=== PATIENT | male | born 1940 | race Caucasian/White ===

== ENCOUNTER → 2017-09-12 07:47 | Outpatient (CLI) | payer OTHER, SELFPAY ==
[2017-09-12 10:21] LABS: Blood Gas Specimen Type VEN; VBG BASE EXCESS 0 mmol/L (-1.0-3.5); VBG Bicarbonate 25 mmol/L (22-26); VBG Oxygen Content 27 mmol/L (23-33); VBG PO2 34 mmHg (25-40); VBG SO2 65 % (50-70); VBG pCO2 41.4 mmHg (41-51)
[2017-09-12 10:21] LABS: Blood Gas Specimen Type VEN; VBG BASE EXCESS 2 mmol/L (-1.0-3.5); VBG Bicarbonate 27 mmol/L (22-26); VBG Oxygen Content 28 mmol/L (23-33); VBG PO2 36 mmHg (25-40); VBG SO2 68 % (50-70); VBG pCO2 44.5 mmHg (41-51); VBG pH 7.39 (7.32-7.42)
[2017-09-12 10:21] LABS: Base Excess 0 mmol/L (-2 to +2); Bicarbonate 24.7 mmol/L (22-26); Blood Gas Specimen Type ART; PO2 72 mmHG (75-100); SO2 95 % (95-99); Total Carbon Dioxide 26 mmol/L; pCO2 38.5 mmHg (35-45); pH 7.42 (7.35-7.45)
[2017-09-12 10:21] LABS: Blood Gas Specimen Type VEN; VBG BASE EXCESS 1 mmol/L (-1.0-3.5); VBG Bicarbonate 26 mmol/L (22-26); VBG Oxygen Content 28 mmol/L (23-33); VBG PO2 35 mmHg (25-40); VBG SO2 67 % (50-70); VBG pCO2 42.7 mmHg (41-51)
[2017-09-12 10:21] LABS: Blood Gas Specimen Type VEN; VBG BASE EXCESS 1 mmol/L (-1.0-3.5); VBG Bicarbonate 25 mmol/L (22-26); VBG Oxygen Content 26 mmol/L (23-33); VBG PO2 37 mmHg (25-40); VBG SO2 71 % (50-70); VBG pCO2 39.5 mmHg (41-51); VBG pH 7.41 (7.32-7.42)
[2017-09-12 10:21] LABS: Blood Gas Specimen Type VEN; VBG BASE EXCESS 0 mmol/L (-1.0-3.5); VBG Bicarbonate 25 mmol/L (22-26); VBG Oxygen Content 26 mmol/L (23-33); VBG PO2 37 mmHg (25-40); VBG SO2 70 % (50-70); VBG pCO2 40.1 mmHg (41-51); VBG pH 7.39 (7.32-7.42)
--- NOTE | 2017-09-12 11:20 | CL.D_ITS ---
Patient Name: JOSELUIS VARGAS Study Date: 09/12/2017 Performing: Brady Escalera MD Ht: 66 inches 167.64 cm : 1940 Wt: 192 lbs 87.09 kg Age: 77 Gender: male BSA: 1.97 PROCEDURE(S) PERFORMED CM70-CRO/LHC/COR/LV/CABG CLINICAL PROFILE AND INDICATIONS INDICATIONS: Stable Angina CCS Class III Stress/Imaging Stress Test w/SPECT MPI: Yes Result: PositiveStress Test with SPECT MPI: Positive Angina Classification Anginal Classification w/in 2 Weeks: CCS III CAD Presentations: Stable angina. CONCLUSIONS Elevated Left Ventricular End Diastolic Pressure Right heart pressures - moderately elevated The patient has pulmonary hypertension which is moderate. Intracardiac shunting: None Segmented LV systolic dysfunction- Moderate LVEF: by LV gram 35 % [place] Multivessel CAD [place]ON to the LAD: patent SVG to OM1: patent SVG to RPDA: occluded Aortic Valve Stenosis- Severe Mitral Valve Insufficiency Moderate RECOMMENDATIONS Risk factor modification Medical therapy Surgery consult for coronary revascularization Surgery consult for valvular disease DESCRIPTION OF PROCEDURE The patient arrived to the procedure lab. The risks and benefits of the procedure as well as a full d escription of our services here and current unavailability of surgical backup were fully explained to the patient and/or their significant other prior to the catheterization. The Timeout was completed, verifying the correct patient and procedure. The patient's procedural site was prepped and draped in the usual fashion. Local anesthetic was given subcutaneously to right groin region with Lidocaine 2%. Using a modified Seldinger technique, arterial access was obtained via the right femoral artery, a 4 Fr sheath was inserted Venous access was obtained via the right femoral vein, a 7Fr sheath was insert ed. A 7Fr thermal dilution catheter was inserted and right heart pressures were recorded, it was then advanced to PA position for cardiac outputs. Thermal dilution cardiac outputs were then recorded. O2 saturations were then obtained. Left Ventriculography was performed in BREEN projection using a 4 Fr. Pigtail catheter. LV to AO pullback pressures were then recorded. Simultaneous pressures were then re corded. The Thermal dilution catheter was then removed. Left Coronary Artery selective angiography wa s performed in multiple views using a 4 Fr. JL5 catheter. Right Coronary Artery selective angiography was then performed in multiple views using a 4 Fr. 3DRC catheter. Saphenous Vein graft to the RPDA s elective angiography was performed in multiple views using a 4 Fr. 3DRC catheter. Saphenous Vein gilson t to the Circumflex selective angiography was performed in multiple views using a 4 Fr. 3DRC catheter . Left internal mammary artery graft to the LAD selective angiography was performed in multiple views using a 4 Fr. JR4 catheter. Left internal mammary artery graft to the LAD selective angiography was performed in multiple views using a 4 Fr. IM catheter using a J exchange wire. Saphenous Vein graft t o the Circumflex selective angiography was performed in multiple views using a 4 Fr. LCB catheter.The arterial sheath was pulled and manual compression applied until hemostasis is achieved.. The venous sheath was then pulled and manual compression applied until hemostasis achieved CORONARY ANGIOGRAPHY DOMINANCE: Right Dominant LEFT HEART ASSESSMENT Left Ventricular Ejection Fraction: by LV Gram 35 % Anterior Hypokinesis. Inferior Basal Akinesis. Inferior Mid Hypokinesis - Severe. Apical Hypokinesis - Severe Elevated Left Ventricular End Diastolic Pressure LVEDP: 26 mmHg RIGHT HEART ASSESSMENT Thermal CO: 2.71 Thermal CI: 1.38 PW: 17/ 17 PA: 44/14 25 RV: 44/-2 7 RA: 01/16 4 PVR: 236 SVR: 2686 Aortic Valve Area: 0.67 Aortic Valve Index: 0.34 Aortic Valve Mean Gradient: 22.5 Right Heart pressures - elevated Pulmonary Hypertension Intracardiac shunting: None LEFT MAIN: Distal: 95 % Stenosis LEFT ANTERIOR DECENDING ARTERY: MID LAD: Moderate calcification, S/P Septal [employer] L[employer]: 100 % Stenosis CIRCUMFLEX ARTERY: PROX CIRC: 99 % Stenosis RIGHT CORONARY ARTERY: PROX RCA: Mild luminal irregularities, Previously placed stent has an instent distal: 75 % restenosis MID RCA: Eccentric: 85 % Stenosis DISTAL RCA: Eccentric: 85 % Stenosis GRAFTS: [place] graft to the Mid LAD is patent with no angiographically significant disease distal to the graft attachment Saphenous Vein graft to the 1st OM is patent with no angiographically significant disease distal to t he graft attachment Saphenous Vein graft to the RPDA is totally occluded VALVE FINDINGS: Aortic Valve Stenosis - severe Mitral Valve Insufficiency - Grade 2 AORTIC ROOT: Angiographically normal COMPLICATIONS No Complications PROCEDURE MEDICATIONS Versed 1 mg IV SUMMARY OF HEMODYNAMIC DATA Time AIR REST ECG 08:05:40 RA 6/5 (4) SV 09:14:12 RV 44/-2, 7 09:14:30 PW (17) PV 09:15:20 PA 44/14 (25) PA 09:15:37 LV 173/14, 26 09:23:18 PW (16) 09:23:18 LV 174/14, 28 09:23:24 PW (17) 09:23:24 LV 167/5, 19 09:23:56 PW (21) 09:23:56 LV 162/4, 15 09:26:08 PW (14) 09:26:08 LVp 165/10, 26 09:26:29 AOp 149/70 (100) 09:26:34 PA 47/15 (29) 09:27:00 RV 49/0, 6 09:28:28 RA 10/ (4) 09:28:41 AO 126/70 (95) SA 09:31:06 ECG 10:17:51 Valve Area (c P-P/ms Time AIR REST Aortic 0.67 22.5 mn/326 ms 16.0 pk/326 ms 09:26:29 Type SV CO (l/m) CI (l/m/ HR Time AIR REST Thermal 58.90 2.71 1.38 46 08:05:40 Label % O2 Pres/Loc Time AIR REST IVC 71 SV 09:41:22 AO 95 PV 09:42:34 PA 67 PA 09:42:40 SVC 68 09:47:20 Signed By Brady Escalera MD On 09/12/2017 11:19:19 Brady Escalera MD
== END ==
LOC: CVS 15:29 → CLSP 15:30
PROVIDERS: Family Provider Family Medicine; PCP Family Medicine; Visit Provider Internal Medicine Cardiovascular Disease
DX: I25.118 Atherosclerotic heart disease of native coronary artery with other forms of angina pectoris (principal); I25.708 Atherosclerosis of coronary artery bypass graft(s), unspecified, with other forms of angina pectoris; R06.09 Other forms of dyspnea; I38 Endocarditis, valve unspecified; E78.2 Mixed hyperlipidemia; Z95.1 Presence of aortocoronary bypass graft; I34.0 Nonrheumatic mitral (valve) insufficiency; R94.39 Abnormal result of other cardiovascular function study; Z79.82 Long term (current) use of aspirin; Z79.899 Other long term (current) drug therapy
CPT/HCPCS: 82803; 93461; 99152; 99153; J7040; C1751; C1769; C1894; Q9967

== ENCOUNTER → 2018-02-02 08:12 | Outpatient (CLI) | payer SELFPAY ==
--- NOTE | 2018-02-02 08:16 | ECHOD_ITS ---
Reason For Study: AVR eval Procedure This was a 2D Doppler, Color Flow transthoracic echocardiogram. The exam was of fair technical quality due to body habitus. The study was technically difficult. Exam performed in department. Left Ventricle Normal LV size. Mild segmental systolic dysfunction (see wall motion). The estimated ejection fraction is 50 %. Posterior-Basal: Hypokinetic. Infero-Basal: Hypokinetic. Mid-Inferior: Hypokinetic. Mid-inferoseptal : Hypokinetic. Inferior [place] : Hypokinetic. Lateral [place] : Not visualized. Right Ventricle Normal RV size. Normal systolic function. Atria The left atrium is mildly enlarged. Normal right atrium. No doppler evidence for ASD. Mitral Valve There is no mitral annular calcification. Mild diffuse mitral valve thickening. Moderate (2+) mitral valve insufficiency. Tricuspid Valve Normal tricuspid valve. Mild tricuspid valve insufficiency. Right ventricular systolic pressure estimated to be 37 mmHg. Aortic Valve Stable appearing bioprosthetic aortic valve apparatus. Pulmonic Valve The pulmonic valve is not well visualized. Trivial pulmonic valve insufficiency. Great Vessels Normal sized aortic root. Pericardium/Pleural No pericardial effusion. MMode/2D Measurements & Calculations LVIDd: 5.9 cm IVSd: 1.1 cm Ao root diam: 3.2 cm LVIDs: 4.7 cm LVPWd: 0.88 cm LA dimension: 4.2 cm RVDd: 3.7 cm FS: 19.3 % LAV(MOD-bp): 81.2 ml LA A4 area: 22.5 cm2 RA A4 area: 17.6 cm2 LAV(MOD-bp) Indexed: 42.4 ml/m2 LAV(MOD-sp2): 81.3 ml LAV(MOD-sp4): 78.0 ml Doppler Measurements & Calculations MV E max jamie: 107.8 cm/sec Lat Peak E' Jamie: 3.9 cm/sec Med Peak E' Jamie: 3.4 cm/sec MV A max jamie: 74.9 cm/sec E/E' lat: 27.5 E/E' med: 32.1 MV E/A: 1.4 Ao V2 max: 213.5 cm/sec LV V1 max: 75.8 cm/sec PA V2 max: 113.5 cm/sec Ao max P.2 mmHg LV V1 max P.3 mmHg Ao V2 mean: 157.9 cm/sec LV V1 mean P.4 mmHg Ao mean P.8 mmHg LV V1 mean: 57.2 cm/sec Ao V2 VTI: 50.6 cm LV V1 VTI: 19.3 cm TR max jamie: 292.2 cm/sec TR max P.2 mmHg Interpretation Summary The study was technically difficult. Mild segmental systolic dysfunction (see wall motion). The estimated ejection fraction is 50 %. The left atrium is mildly enlarged. Mild diffuse mitral valve thickening. Moderate (2+) mitral valve insufficiency. Mild tricuspid valve insufficiency. Stable appearing bioprosthetic aortic valve apparatus. Trivial pulmonic valve insufficiency. Right ventricular systolic pressure estimated to be 37 mmHg. Transmitral diastolic flow velocities suggest diastolic dysfunction (pseudonormal pattern). Ordering Physician: Brady Escalera Referring Physician: Pedro Gonzalez Performed By: Jenny Zhong, IGNACIO, RVT
== END ==
PROVIDERS: Family Provider Family Medicine; PCP Family Medicine; Visit Provider Internal Medicine Cardiovascular Disease
DX: I35.0 Nonrheumatic aortic (valve) stenosis (principal)
CPT/HCPCS: 93306

== ENCOUNTER → 2018-03-09 09:43 | Outpatient (CLI) | payer OTHER, SELFPAY ==
[2018-03-09 11:34] LABS: PSA,Total - Annual Screen 1.82 ng/mL (0.00-4.00)
== END ==
PROVIDERS: Family Provider Family Medicine; PCP Family Medicine; Visit Provider Family Medicine
DX: Z12.5 Encounter for screening for malignant neoplasm of prostate (principal)
CPT/HCPCS: 36415; 84153; G0103

== ENCOUNTER → 2018-03-29 14:11 | Outpatient (CLI) | payer OTHER, SELFPAY ==
[2018-03-29 14:52] LABS: Absolute Lymphocyte Count 2.66 X10^3/ul (0.83-4.51); Basophil# 0.02 X10^3/uL; Basophil% 0.3 % (0-1); Eosinophil# 0.12 X10^3/uL; Eosinophils% 1.9 % (0-5); Hematocrit 41.4 % (40-54); Hemoglobin 13.7 g/dl (13.0-16.5); Lymphocyte # 2.66 X10^3/ul (4.0); Lymphocyte % 41.6 % (19-41); Mean Corp Hgb Conc 33.1 g/gl (32-36); Mean Corpuscular Hgb 29.5 pg (27.0-32.0); Mean Platelet Vol. 10.2 fl (6.2-12.0); Monocyte# 0.56 X10^3/uL; Monocyte% 8.8 % (0-10); Neutrophil # 3.03 X10^3/uL (2.7-7.7); Neutrophil % 47.2 % (47-70); Platelet Count 143 K/mm3 (150-450); RBC Distribution Width CV 13.7 % (11.6-14.6); RBC Distribution Width SD 44.3 fl (35.1-43.9); Red Blood Count 4.65 M/mm3 (4.6-6.2); White Blood Count 6.4 K/mm3 (4.4-11.0)
[2018-03-29 14:53] LABS: POSITIVE COUNT NO; POSITIVE DIFFERENTIAL NO; POSITIVE MORPHOLOGY NO
[2018-03-29 15:28] LABS: Anion Gap 10 (5-15); BUN 30 mg/dL (7-18); BUN/Creat Ratio 22.4 RATIO (10-20); Calcium,Total 8.9 mg/dL (8.5-10.1); Chloride 103 mmol/L (98-107); Creatinine, Serum 1.34 mg/dL (0.70-1.30); EST Glomerular Filtration Rate 55 mL/min (>60); Est Glom Filt Rate - Afr Amer 66 mL/min (>60); Glucose 86 mg/dL (74-106); Sodium Level 141 mmol/L (136-145)
[2018-03-29 15:38] LABS: BNP,B-Type NATRIURETIC PEPTIDE 738.7 pg/mL (0-100)
== END ==
PROVIDERS: Family Provider Family Medicine; PCP Family Medicine; Visit Provider Nurse Practitioner Family
DX: I25.10 Atherosclerotic heart disease of native coronary artery without angina pectoris (principal); I38 Endocarditis, valve unspecified; R06.09 Other forms of dyspnea; Z95.5 Presence of coronary angioplasty implant and graft
CPT/HCPCS: 36415; 80048; 83880; 85025

== ENCOUNTER → 2018-04-18 10:00 | Outpatient (CLI) | payer OTHER, SELFPAY ==
[2018-04-18 10:58] LABS: AST(SGOT) 20 U/L (15-37); Alanine Aminotransfer ALT/SGPT 23 U/L (16-61); Albumin, Serum 3.6 g/dL (3.2-5.0); Alkaline Phosphatase 74 U/L (45-117); Bilirubin, Direct 0.15 mg/dL (0.00-0.30); Cholesterol 234 mg/dL (200); Globulin 3.9 g/dL (2.2-4.2); High Density Lipoprotein 54 mg/dL; Protein, Total 7.5 g/dL (6.4-8.2); Triglycerides 95 mg/dL; Very Low Density Lipoprotein 19 mg/dL (5-40)
== END ==
PROVIDERS: Family Provider Family Medicine; PCP Family Medicine; Visit Provider Nurse Practitioner Family
DX: E78.5 Hyperlipidemia, unspecified (principal)
CPT/HCPCS: 36415; 80061; 80076

== ENCOUNTER → 2018-12-24 08:32 | Outpatient (CLI) | payer OTHER, SELFPAY ==
--- NOTE | 2018-12-24 08:37 | ECHOD_ITS ---
Reason For Study: AVR-TAVR Procedure This was a 2D Doppler, Color Flow transthoracic echocardiogram. The exam was of adequate technical quality. Exam performed in department. Left Ventricle Normal LV size. Mild segmental systolic dysfunction (see wall motion). The estimated ejection fraction is 45 %. Post operative septal motion. Anterio-Basal: Hypokinetic. Posterior-Basal: Hypokinetic. Infero-Basal: Hypokinetic. Basal inferoseptal: Hypokinetic. Mid-Anterior : Hypokinetic. Mid-Lateral : Hypokinetic. Mid-Posterior: Hypokinetic. Mid-Inferior: Hypokinetic. Mid-inferoseptal : Hypokinetic. Anterior [place] : Hypokinetic. Septal [place] : Hypokinetic. Right Ventricle Normal RV size. Normal systolic function. Atria The left atrium is mildly enlarged. Normal right atrium. No doppler evidence for ASD. Mitral Valve There is no mitral annular calcification. Mild diffuse mitral valve thickening. Mild-Moderate (1-2+) mitral valve insufficiency. Tricuspid Valve Normal tricuspid valve. Mild tricuspid valve insufficiency. Right ventricular systolic pressure estimated to be 37 mmHg. Aortic Valve Stable appearing bioprosthetic aortic valve apparatus. Mild transvalvular insufficiency of the aortic valve. Pulmonic Valve The pulmonic valve is not well visualized. Trivial pulmonic valve insufficiency. Great Vessels Normal sized aortic root. Pericardium/Pleural No pericardial effusion. MMode/2D Measurements & Calculations LVIDd: 5.2 cm IVSd: 1.2 cm LVOT diam: 2.0 cm LVIDs: 4.3 cm LVPWd: 1.2 cm LVOT area: 3.2 cm2 RVDd: 3.7 cm FS: 16.6 % Ao root diam: 3.8 cm LAV(MOD-bp): 64.5 ml LVAd ap4: 38.0 cm2 LAV(MOD-bp) Indexed: 33.7 ml/m2 EDV(MOD-sp4): 145.7 ml LAV(MOD-sp2): 58.9 ml EDV(sp4-el): 148.3 ml LAV(MOD-sp4): 68.2 ml LVAs ap4: 29.1 cm2 ESV(MOD-sp4): 88.9 ml ESV(sp4-el): 91.2 ml EF(MOD-sp4): 39.0 % EF(sp4-el): 38.5 % SV(MOD-sp4): 56.8 ml SV(sp4-el): 57.1 ml LA A4 area: 20.9 cm2 LA dimension(2D): 3.7 cm RA A4 area: 13.9 cm2 Doppler Measurements & Calculations MV E max jamie: 79.8 cm/sec Lat Peak E' Jamie: 4.5 cm/sec Med Peak E' Jamie: 3.1 cm/sec MV A max jamie: 61.4 cm/sec E/E' lat: 17.6 E/E' med: 25.7 MV E/A: 1.3 Ao V2 max: 197.8 cm/sec LV V1 max: 107.1 cm/sec SV(LVOT): 87.5 ml Ao max P.7 mmHg LV V1 max P.6 mmHg Ao V2 mean: 136.3 cm/sec LV V1 mean P.5 mmHg Ao mean P.2 mmHg LV V1 mean: 74.8 cm/sec Ao V2 VTI: 48.2 cm LV V1 VTI: 27.0 cm [place](I,D): 1.8 cm2 [place](V,D): 1.8 cm2 PA V2 max: 115.4 cm/sec TR max jamie: 289.8 cm/sec TR max P.9 mmHg Interpretation Summary Mild segmental systolic dysfunction (see wall motion). The estimated ejection fraction is 45 %. Post operative septal motion. The left atrium is mildly enlarged. Mild diffuse mitral valve thickening. Mild-Moderate (1-2+) mitral valve insufficiency. Mild tricuspid valve insufficiency. Stable appearing bioprosthetic aortic valve apparatus. Mild transvalvular insufficiency of the aortic valve. Trivial pulmonic valve insufficiency. Right ventricular systolic pressure estimated to be 37 mmHg. Transmitral diastolic flow velocities suggest diastolic dysfunction (pseudonormal pattern). Ordering Physician: Andrzej Marinelli/Brady Escalera Referring Physician: Pedro Gonzalez MD Performed By: Justine Pena RDCS
== END ==
PROVIDERS: Family Provider Family Medicine; PCP Family Medicine; Referring Provider Nurse Practitioner Family; Visit Provider Nurse Practitioner Family
DX: Z95.3 Presence of xenogenic heart valve (principal)
CPT/HCPCS: 93306

== ENCOUNTER 2019-06-19 08:24 | Emergency (ER) | payer OTHER, SELFPAY ==
[2018-12-31 09:38] VITALS: BMI 28.8
[2019-06-19 08:26] VITALS: BP 152/82; PULSE 63; RESP 14; TEMP 36.2; O2SAT 99; BMI 28.2
--- NOTE | 2019-06-19 08:41 | ED.DCSUM_ITS ---
- ER Visit Summary Date of Service: 06/19/19 Chief Complaint: Left sided nosebleed History of Present Illness: The patient is a 79 M history of CAD, CABG x2 different surgeries, aortic valve replaced on both Plavix and aspirin. Patient states about midnight this past evening he started having nosebleed on the left. Denies any trauma. Does not typically get nosebleeds very often. Denies any hematuria or melena. Physical Examination: Well appearing older Jung male. No acute distress. Has a tissue stuffed in the left side of his nose. Posterior pharynx unremarkable with no active bleeding or clots. No trouble breathing or swallowing. Right naris is clean without blood. Moist week's membranes. Lungs clear to auscultation bilaterally. Heart regular rhythm. Abdomen soft nontender. Patient is moving all 4 extremities. Calves are nontender. Neurologically he is awake and alert. Test Results: None Emergency Department Course and Treatment: Patient anticoagulated on both aspirin and Plavix. With a left-sided nosebleed. Cotton balls soaked with Afrin be placed in his nose. Treatment Plan: Bleeding stopped with Afrin soaked cotton balls. He had an obvious area of redness to the left nasal septum anteriorly. It did not be cauterized. I placed a Rhino Rocket coated with bacitracin antibiotic ointment. Patient tolerated the procedure well. Pack was secured. He was ambulated and did not bleed. Posterior pharynx and right naris no bleeding also. Packing will remain in for the next 3 days. Be pulled Monday morning. He will be placed on amoxicillin 250 3 times daily for 3 days. Disposition: Discharge Impression: Acute left sided nosebleed Anterior nasal pack placed by ER (nasal Rhino Rocket.) Anticoagulated on Plavix and aspirin This note was generated with [employer] dictation software. It may contain incorrect words, spelling, and punctuation that were not noted in review of the chart prior to signing ED Disposition - Plan for ED Patient: Referrals: Pedro Gonzalez MD [Primary Care Provider] -
--- NOTE | 2019-06-19 09:23 | ED.DEP ---
ED Disposition - Plan for ED Patient: Disposition: Home or Assisted Living Instructions: Nosebleed Prescriptions: Amoxicillin 250 mg PO Q8 #9 cap Prescription Printed Referrals: Pedro Gonzalez MD [Primary Care Provider] - As Needed Additional Instructions: If rebleeds hold direct pressure by pinching her nose for 20 to 30 minutes. If unable to stop bleeding return. Packing needs to be pulled out on Monday morning. He will be placed on antibiotics amoxicillin 1 pill 3 times a day for the next 3 days while the packing is in to prevent a sinus infection.
== END 2019-06-19 09:47 | disposition home or self-care (01) ==
PROVIDERS: Emergency Provider Emergency Medicine; Family Provider Family Medicine; PCP Family Medicine
DX: R04.0 Epistaxis (principal); I25.10 Atherosclerotic heart disease of native coronary artery without angina pectoris; I10 Essential (primary) hypertension; Z95.2 Presence of prosthetic heart valve; Z95.1 Presence of aortocoronary bypass graft; Z79.02 Long term (current) use of antithrombotics/antiplatelets; Z79.899 Other long term (current) drug therapy
CPT/HCPCS: 30903; 99282

== ENCOUNTER 2019-06-20 08:40 | Day surgery (SDC) | payer OTHER, SELFPAY ==
[2019-06-19 08:26] VITALS: BMI 28.2
[2019-06-20] VITALS (11 sets, daily range): BP systolic 86–143; BP diastolic 60–80; PULSE 69–76; RESP 16–18; TEMP 36.4–36.6; O2SAT 92–100; BMI 28.7
[2019-06-20] MEDS: Oxymetazoline 0.05% 1 SPRAY SPRAY.BTL 2 SPRAY NASAL (09:27)
[2019-06-20] MEDS: Tetracaine/Benzocaine/Butamben 1 APPLIC TOPICAL (09:27)
--- NOTE | 2019-06-20 10:35 | ED.VIS.GEN ---
History of Present Illness Chief Complaint: Nosebleed Detail of Chief Complaint: Bleeding left nare Informant: Patient, Family Onset: Yesterday Narrative: Patient was seen in the ED yesterday for left sided epistaxis. 5.5 cm rapid pack was placed. Patient states last evening and today has had bleeding down his throat and out the right nare. Past Medical History - Allergies and Home Meds Allergies/Adverse Reactions: Allergies No Known Allergies Allergy (Verified 06/20/19 08:44) Prior records reviewed: Yes Past Medical History: - - Reviewed Lives: With Family Smoking Status: Never smoker Review of Systems General: Denies: Chills, Fever Eyes: Denies: Visual changes - bilaterally ENT: Reports: - - Packing in place left nare. Dried blood noted right nare.. Denies: Bilateral ear pain Cardiovascular: Denies: Chest pain Respiratory: Denies: Dyspnea, Cough Gastrointestinal: Denies: Abdominal pain Genitourinary: Denies: Dysuria Skin: Denies: Rash Hematologic: Denies: Easy bruising Allergy: Denies: Uticaria Physical Exam Vital Signs/Narrative: Vital Signs Temp Pulse Resp BP Pulse Ox 06/20/19 08:41 97.6 F L 71 18 143/63 H 96 Inital Vital Signs reviewed: Yes General: Well nourished, Well developed Head: Normocephalic ENT: - - Packing in place left nare. Right nare reveals small amount of dried blood. This is cleansed and no further bleeding is noted on the right side. Neck: Supple Cardiovascular: Regular rate, Regular rhythm Respiratory: No distress, CTA bilaterally Abdomen: Soft, Nontender Skin: Normal color Neurological: Alert, Oriented x3 Psychological: Normal affect Diagnostic/Tx/Re-eval - Medical Decision Making Indicated Afrin were applied to the left nare after removal of packing. A 5.5 cm Rhino Rocket with balloon was placed. Patient has had no further bleeding at the right side of his nose or down the back of his throat, but does have some anterior bleeding. Balloon is changed out to a 7.5 cm to help cover both anterior and posterior surface. Patient was observed with longer balloon in place. He continues to have bloody oozing from the anterior surface. I spoke with Dr. Ferrer, on-call for ENT. He presented to the emergency room to evaluate the patient. He is planning to take the patient to the OR for better evaluation and treatment. ED Disposition - Plan for ED Patient: Disposition: Acute Care Hospital [facility] Diagnosis: Epistaxis
--- NOTE | 2019-06-20 13:15 | LES_PTH ---
PATIENT: JOSELUIS VARGAS LOC: [facility] [place][id number] AGE/SX: 79/M ROOM: RE06/20/[address]: Dr. Brian Ferrer MD : 1940 BED: DIS: 06/20/2019 SPEC #: [id number] RECD: 06/20/19 15:48 STATUS: LENCHO REShavonne #: [id number] LOC: 06/20/19 13:[address]: Brian Ferrer DEPT: SURGICAL PATHOLOGY RECD BY: Marquise Michael ENTERED: 06/21/19 09:05 SP TYPE: Lesion OTHR DR: Dr. Pedro Gonzalez MD Tissues: Skin of nose, NOS Procedures: Surgery Specimen Level IV HEADER OPERATION: Cautery nosebleed PRE-OP DIAGNOSIS: Left-sided epistaxis TISSUE SUBMITTED: Left middle turbinate lesion MICROSCOPIC DIAGNOSIS Left middle turbinate lesion, biopsy: Minute fragment of fibrous tissue with mild chronic inflammation. AM:baltazar 06/24/19 COMMENT Case has been reviewed in consultation with Dr. Renee who concurs with the above diagnosis. IDC:CHOLO MICROSCOPIC DESCRIPTION Slides are reviewed. GROSS DESCRIPTION Received in fixative is one container labeled with the patient's name and designated middle turbinate lesion. The specimen consists of two minute fragments of arellano soft tissue each measuring 0.1 cm in greatest dimension. The specimen is totally submitted in one cassette. / CHOLO:baltazar 06/21/19 TC:3 CPT: 75396
--- NOTE | 2019-06-20 13:36 | EKG12_ITS ---
Test Reason : PRE OP Blood Pressure : / mmHG Vent. Rate : 080 BPM Atrial Rate : 080 BPM P-R Int : 174 ms QRS Dur : 094 ms QT Int : 406 ms P-R-T Axes : -13 -13 043 degrees QTc Int : 468 ms Sinus rhythm with occasional Premature ventricular complexes Otherwise normal ECG When compared with ECG of 18-MAR-2014 08:21, Premature ventricular complexes are now Present Nonspecific T wave abnormality now evident in Lateral leads Confirmed by CARLA BROOKS, CARLOS ([id number]), development editor HEDY CHARLES ([id number]) on 06/25/2019 3:24:52 PM Referred By: GLENYS Confirmed By:CARLOS AGUIRRE MD
--- NOTE | 2019-06-20 13:50 | DCINST_ITS ---
- Discharge Diagnoses Current Active Problems: Current Active and Chronic Problems (Last Reviewed 06/25/18 @ 09:33 by Elaina Fontana) Epistaxis (Acute) You will use the following diet at home:: Regular Discharge Activity: - - no noseblowing. Allergies/Adverse Reactions: Allergies No Known Allergies Allergy (Verified 06/20/19 08:44) Medications to take at Discharge Aspirin [Aspirin, Baby] 81 mg PO DAILY 03/10/14 vitamin E 200 unit capsule 200 unit PO QDAY 02/09/18 metoprolol succinate ER 25 mg tablet,extended release 24 hr 25 mg PO QDAY 03/29/18 clopidogrel 75 mg tablet 75 mg PO QDAY #90 tab 06/25/18 furosemide 40 mg tablet 40 mg PO DAILY #90 tab 12/31/18 Amoxicillin 250 mg PO Q8 #9 cap 06/19/19 Primary Care Physician: Pedro Gonzalez MD [Primary Care Provider] - Test Results: Test results from this visit will be discussed in further detail at your follow- up appointment, if applicable.
[2019-06-20] MEDS: Oxymetazoline 0.05% 1 SPRAY SPRAY.BTL 15 SPRAY (14:06)
--- NOTE | 2019-06-20 14:20 | PCM.OPRPT ---
Report of Operation Date of Procedure: 06/20/19 Pre-Operative Diagnosis: epistaxis left Post-Operative Diagnosis: same Surgery/Procedure Performed:: endoscopic cautery and packing epistaxis. biopsy middle turbinate Type of Anesthesia:: General Anesthesiologist: Thien Anthony Drains: none Estimated Blood Loss (mL): minimal Description of Procedure: The patient was taken to the OR on 06/20/19. He was placed in the semi-recumbent position on the OR table. He was given local mac anesthesia. A zero degree endoscope was used throughout the entire case. Clots were suctioned from the left nasal cavity. Bleeding was localized to the medial/anterior aspect of the middle turbinate. In this area was a mucosal abnormality. It appeared to be a small papilloma. I applied topical 4% lidocaine on a Codman. This was then removed. The abnormality was biopsied with a bernardo cut forcep. I then cauterized the area with suction cautery which immediately provided hemostasis. The rest of the nasal cavity was inspected. There was no further bleeding. The sphenopalatine area was inspected and the suction was run over the area and no bleeding occurred. I then placed an afrin codman. After a minute, this was removed. Soraida powder was placed on the middle turbinate. I then placed surgicel fibrillar on the cauterized area. Next, I placed a Mynor sinus pack on the fibrillar and inflated this with afrin. The procedure was terminated. He was brought to the recovery room in stable condition. Blood loss minimal, replacement none. Sponge, needle and instrument count were correct at the end of the procedure.
== END 2019-06-20 17:10 | disposition home or self-care (01) ==
LOC: ED 12:43 → SDC 12:47 → AC 12:47
PROVIDERS: Emergency Provider Emergency Medicine; Family Provider Family Medicine; PCP Family Medicine; Visit Provider Otolaryngology
PROC: (CPT 31237; principal; 2019-06-20 13:10)
DX: R04.0 Epistaxis (principal); J31.0 Chronic rhinitis; I25.10 Atherosclerotic heart disease of native coronary artery without angina pectoris; I10 Essential (primary) hypertension; Z95.1 Presence of aortocoronary bypass graft; Z79.02 Long term (current) use of antithrombotics/antiplatelets; Z79.82 Long term (current) use of aspirin
CPT/HCPCS: 30903; 31237; 31238; 88305; 93005; 99284; J7120; A4216; J2405

== ENCOUNTER → 2019-06-26 | Outpatient (CLI) | payer OTHER, SELFPAY ==
[2019-06-26 10:18] VITALS: BMI 28.4
[2019-06-26 11:53] LABS: AST(SGOT) 18 U/L (15-37); Alanine Aminotransfer ALT/SGPT 17 U/L (16-61); Albumin, Serum 3.3 g/dL (3.2-5.0); Alkaline Phosphatase 106 U/L (45-117); Bilirubin, Direct 0.14 mg/dL (0.00-0.30); Cholesterol 275 mg/dL (200); Globulin 4.1 g/dL (2.2-4.2); High Density Lipoprotein 58 mg/dL; Protein, Total 7.4 g/dL (6.4-8.2); Triglycerides 109 mg/dL; Very Low Density Lipoprotein 22 mg/dL (5-40)
== END | disposition home or self-care (01) ==
LOC: LAB 11:13
PROVIDERS: Family Provider Family Medicine; PCP Family Medicine; Referring Provider Internal Medicine Cardiovascular Disease; Visit Provider Internal Medicine Cardiovascular Disease
DX: E78.00 Pure hypercholesterolemia, unspecified (principal)
CPT/HCPCS: 36415; 80061; 80076

== ENCOUNTER → 2020-09-14 10:21 | Outpatient (CLI) | payer OTHER, SELFPAY ==
[2020-09-14 09:31] VITALS: BMI 30.8
[2020-09-14 11:23] LABS: AST(SGOT) 21 U/L (15-37); Alanine Aminotransfer ALT/SGPT 23 U/L (16-61); Albumin, Serum 3.5 g/dL (3.2-5.0); Alkaline Phosphatase 106 U/L (45-117); Bilirubin, Direct 0.17 mg/dL (0.00-0.30); Cholesterol 267 mg/dL (200); Globulin 4.1 g/dL (2.2-4.2); High Density Lipoprotein 60 mg/dL; Protein, Total 7.6 g/dL (6.4-8.2); Triglycerides 99 mg/dL; Very Low Density Lipoprotein 20 mg/dL (5-40)
== END ==
PROVIDERS: PCP Family Medicine; Referring Provider Internal Medicine Cardiovascular Disease; Visit Provider Internal Medicine Cardiovascular Disease
DX: E78.00 Pure hypercholesterolemia, unspecified (principal)
CPT/HCPCS: 36415; 80061; 80076

== ENCOUNTER → 2021-04-06 15:13 | Outpatient (CLI) | payer OTHER, SELFPAY ==
[2021-04-06 18:16] LABS: Creatinine, Serum 1.17 mg/dL (0.70-1.30); EST Glomerular Filtration Rate 64 mL/min (>60); Est Glom Filt Rate - Afr Amer 77 mL/min (>60)
== END ==
PROVIDERS: PCP Family Medicine; Referring Provider Family Medicine; Visit Provider Family Medicine
DX: N42.89 Other specified disorders of prostate (principal)
CPT/HCPCS: 36415; 82565; 84153

== ENCOUNTER → 2021-04-13 10:35 | Outpatient (CLI) | payer OTHER, SELFPAY ==
[2021-04-13 10:40] LABS: Bacteria 0 SEEN /hpf (None Seen); Mucous, Urine 0 SEEN /hpf (<or=2+); White Blood Cells 0 SEEN /hpf (0-5)
[2021-04-13 11:42] LABS: Color, Urine Yellow (Yellow); Glucose, Dipstick Normal (Normal); Ketone-Dipstick Negative (Negative); Leukocyte Esterase-Dipstick Negative /ul (Negative); Nitrite-Dipstick Negative (Negative); Occult Blood-Urine Negative /ul (Negative); Protein-Dipstick Negative (Negative); Specific Gravity, Urine 1.015 (1.002-1.030); Urine Bilirubin Dipstick Negative (Negative); Urine Clarity Clear (Clear); Urine Urobilinogen Normal (Normal); Urine pH 6.5 (5.0 - 8.0)
[2021-04-13 11:48] LABS: Red Blood Cells-Urine 0-5 SEEN /hpf (0-5); Squamous Epithelial Cells - UA 0-5 SEEN /hpf (0-5)
[2021-04-13 13:09] LABS: AST(SGOT) 21 U/L (15-37); Alanine Aminotransfer ALT/SGPT 26 U/L (16-61); Albumin, Serum 3.6 g/dL (3.2-5.0); Alkaline Phosphatase 93 U/L (45-117); Bilirubin, Direct 0.18 mg/dL (0.00-0.30); Cholesterol 285 mg/dL (200); Globulin 3.9 g/dL (2.2-4.2); High Density Lipoprotein 62 mg/dL; Protein, Total 7.5 g/dL (6.4-8.2); Triglycerides 113 mg/dL; Very Low Density Lipoprotein 23 mg/dL (5-40)
== END ==
PROVIDERS: Internal Medicine Cardiovascular Disease; PCP Family Medicine; Referring Provider Family Medicine; Visit Provider Family Medicine
DX: N42.89 Other specified disorders of prostate (principal); E78.5 Hyperlipidemia, unspecified; I25.10 Atherosclerotic heart disease of native coronary artery without angina pectoris; I25.810 Atherosclerosis of coronary artery bypass graft(s) without angina pectoris
CPT/HCPCS: 36415; 80061; 80076; 81001

== ENCOUNTER → 2021-05-03 12:03 | Outpatient (CLI) | payer OTHER, SELFPAY ==
[2021-05-03 13:30] LABS: PSA,Total- Diagnostic 2.02 ng/mL (0.0-4.0)
== END ==
PROVIDERS: PCP Family Medicine; Referring Provider Nurse Practitioner Adult Health; Visit Provider Nurse Practitioner Adult Health
DX: N40.1 Benign prostatic hyperplasia with lower urinary tract symptoms (principal)
CPT/HCPCS: 36415; 84153

== ENCOUNTER → 2021-12-31 | Outpatient (CLI) | payer SELFPAY, OTHER | END | disposition home or self-care (01) | LOC: SL 11:20 | PROVIDERS: PCP Family Medicine; Visit Provider Nurse Practitioner Family | DX: G47.19 Other hypersomnia (principal) | CPT/HCPCS: 95806 ==

== ENCOUNTER 2022-01-27 10:12 | Emergency (ER) | payer OTHER, SELFPAY ==
[2022-01-27 10:14] VITALS: BP 150/83; PULSE 80; RESP 14; TEMP 36.2; O2SAT 98; BMI 30.8
--- NOTE | 2022-01-27 10:31 | RAD_ITS ---
STUDY: X-RAY CHEST REASON FOR EXAM: Male, 81 years old. Dyspnea TECHNIQUE: Single AP portable view of the chest. COMPARISON: Comparison is made with prior study dated 06/26/2017. FINDINGS: Hyperinflation. Increased curly B lines in keeping with a mild degree of CHF. There is no demonstrated pleural abnormality. Sternal cerclage wires and vascular clips are present from a prior sternotomy and coronary artery bypass graft procedure (CABG). Normal mediastinum and snehal. Normal visualized pulmonary arteries. There is atherosclerotic tortuosity of the aortic arch and descending thoracic aorta. There are diffuse degenerative changes of the visualized thoracic spine. Normal visualized ribs, clavicles, and shoulders. There is no demonstrated abnormality of the visualized soft tissue structures of the upper abdomen. RAD/Chest 1 View (Portable) IMPRESSION: Mild degree of CHF. Electronically Signed: Luisito Esparza MD at 11:09 EDT ,
--- NOTE | 2022-01-27 10:31 | EKG12_ITS ---
Test Reason : SOB Blood Pressure : / mmHG Vent. Rate : 080 BPM Atrial Rate : 080 BPM P-R Int : 234 ms QRS Dur : 094 ms QT Int : 412 ms P-R-T Axes : 028 -02 081 degrees QTc Int : 475 ms Sinus rhythm with 1st degree A-V block with occasional Premature ventricular complexes and Fusion com plexes Inferior infarct , age undetermined , cannot be excluded Abnormal ECG Confirmed by OSKAR BROOKS, MYRTLE ([id number]), department editor SAMMI LIMA ([id number]) on 01/28/2022 8:57:57 AM Referred By: KAYE Confirmed By:MYRTLE SCHMITT MD
--- NOTE | 2022-01-27 10:32 | ED.VIS.DYS ---
HPI History of Present Illness Chief Complaint: Shortness of Breath Informant: patient, spouse/S.O. and family Narrative Narrative: 81-year-old male presenting to the emergency department with chief complaint of nocturnal dyspnea. Patient has a history of coronary artery disease and has had a CABG and a redo CABG as well as TAVR. Beginning of December saw cardiology and had a home sleep study test for apnea that was positive. They have been trying to get a formal sleep study arranged but have not yet been successful. His states that his nighttime apnea is progressively worsening and today they decided that something needs to be done about it so they came to emergency. He denies any chest pain or leg swelling. No significant cough. No fevers. [facility] Medical History (Updated 01/27/22 @ 13:[address] Austin Agustin DO) Abnormal stress test Atherosclerosis of coronary artery bypass graft without angina pectoris Atherosclerotic heart disease of tribal coronary artery without angina pectoris Chest pain, unspecified Chronic systolic (congestive) heart failure Dyspnea on exertion Hyperlipidemia Nonrheumatic aortic (valve) stenosis Home Medications vitamin E 200 unit capsule 200 unit PO DAILY 09/14/20 [History Last Taken Unknown] metoprolol succinate 25 mg tablet,extended release 24 hr See Rx Instructions .Route .COMPLEX #90 tabs 12/25/20 [Rx Last Taken Unknown] furosemide 40 mg tablet (Lasix) 40 mg PO DAILY #90 tabs 04/22/21 [Rx Last Taken Unknown] aspirin 81 mg chewable tablet 81 mg PO Q OTHER DAY 09/10/21 [History Last Taken Unknown] clopidogrel 75 mg tablet 75 mg PO Q OTHER DAY 09/10/21 [History Last Taken Unknown] tamsulosin 0.4 mg capsule (Flomax) 0.4 mg PO QHS #30 caps 01/27/22 [Rx Last Taken Unknown] Allergy/AdvReac Type Severity Reaction Status Date / Time No Known Allergies Allergy Verified 01/14/22 13:24 Family History Father Myocardial infarction CVA (cerebral vascular accident) Mother CHF (congestive heart failure) Brother CAD (coronary artery disease) Cancer leukemia Surgical History H/O coronary artery bypass surgery (~01/2002) History of aortic valve replacement with bioprosthetic valve (~12/27/17) History of arthroplasty of knee History of left inguinal hernia repair (~1961) Postsurgical percutaneous transluminal coronary angioplasty (PTCA) status Presence of stent in coronary artery Social History Smoking Status: Never smoker alcohol intake: never substance use type: does not use caffeine: No what type of physical activity do you participate in: walking frequency: 5-6 times per week duration: 30-45 minutes/day seatbelt use: sometimes do you feel safe at home: Yes ROS ROS ED ROS Narrative Daytime tiredness Constitutional Constitutional ED: Denies chills or weight loss Eyes Eyes: Denies change in vision or diplopia ENT ENT ED: Denies ear pain, rhinorrhea or sore throat Cardiovascular Cardiovascular: Denies chest pain, orthopnea, palpitations or racing heartbeat Respiratory/Chest Respiratory/Chest: Reports dyspnea; Denies cough or orthopnea Gastrointestinal Gastrointestinal: Denies abdominal pain, diarrhea, nausea or vomiting Genitourinary Genitourinary ED: Denies dysuria, hematuria or urinary frequency Musculoskeletal Musculoskeletal: Denies arthralgias or myalgias Integumentary Denies abscess or rash Neurologic Neurologic: Denies headache(s) or weakness Psychiatric Psychiatric: Denies anxiety, depression, suicidal ideation or suicidal thoughts Endocrine Endocrinology: Denies polydipsia, polyphagia or polyuria Allergic/Immunologic Allergic/Immunologic ED: Denies mouth swelling, tongue swelling or urticaria EXAM Physical Exam Const Vital Signs: 01/27/22 10:14 01/27/22 10:47 01/27/22 13:25 Temperature 97.1 F L Temperature Source Temporal Pulse Rate 80 Respiratory Rate 14 Respiratory Effort Short of Breath Respiratory Pattern Tachypnea Blood Pressure 150/83 H 147/82 H Blood Pressure Mean 105 Pulse Ox 98 94 Oxygen Delivery Method Room Air Room Air Positive well nourished and well developed General Appearance ED: well developed HEENT Reports normocephalic, head/scalp atraumatic and moist mucous membranes Eyes PERRL and EOMs intact bilaterally Neck no lymphadenopathy, supple and no JVD Resp normal respiratory effort and clear to auscultation bilaterally Cardio regular rate, regular rhythm and no murmurs GI normal to inspection, nondistended, normoactive bowel sounds and non-tender Palpation: soft Back/Spine no CVA tenderness and normal ROM Extremity normal to inspection General Extremety ED: Negative for edema General Extremity: Negative for edema Neuro oriented x3 and CN's II-XII intact bilaterally Sensorium / Orientation: alert Motor Exam: strength 5/5 throughout Psych mental status grossly normal Mood & Affect: Negative for depressed or tearful Skin no rashes or lesions noted and no wounds MDM MDM MDM Narrative Medical decision making narrative: My interpretation of chest x-ray is mild pulmonary edema. Beta natruretic peptide is 953. Patient's not hypoxic. He is having difficulty urinating and at one time was on Flomax but has not taken it now. He does not know when he stopped taking it or if he was supposed to keep taking it. He does recall seeing Dr. Wiggins in the past. I will write for some Flomax. I contacted patient advocate to help us look into his sleep study. I have also contacted Dr. Montanez and the pulmonology office and they are going to try to figure out how to get him into the sleep study. He does have the elevated BNP and some mild pulmonary edema so he can increase his Lasix. Lab Data Attestation: I reviewed the patient's lab results. Labs: Laboratory Results - last 24 hr 01/27/22 01/27/22 01/27/22 10:45 10:45 10:45 WBC 6.7 RBC 4.62 Hgb 14.0 Hct 41.4 MCV 89.6 MCH 30.3 MCHC 33.8 RDW Std Deviation 44.0 H RDW Coeff of Jenaro 13.4 Plt Count 165 MPV 10.3 Immature Gran % (Auto) 0.300 Neut % (Auto) 51.8 Lymph % (Auto) 37.2 [place] % (Auto) 8.9 Eos % (Auto) 1.5 Baso % (Auto) 0.3 Absolute Neuts (auto) 3.5 Absolute Lymphs (auto) 2.48 Nucleated RBC % 0 Sodium 137 Potassium 4.0 Chloride 105 Carbon Dioxide 26.0 Anion Gap 6 BUN 26 H Creatinine 1.18 Estim Creat Clear Calc 42.71 Est GFR (MDRD) Af Amer 76 Est GFR (MDRD) Non-Af 63 BUN/Creatinine Ratio 22.0 H Glucose 105 Calcium 8.9 Total Bilirubin 0.70 AST 17 ALT 24 Alkaline Phosphatase 93 Troponin I High Sens 21 B-Natriuretic Peptide 953.6 H Total Protein 7.2 Albumin 3.5 Globulin 3.7 Albumin/Globulin Ratio 0.9 Radiography Diagnostic Testing: Clinical Impression(s) from Imaging Studies Chest X-Ray 01/27/22 10:31 IMPRESSION: Mild degree of CHF. Electronically Signed: Luisito Esparza MD at 11:09 EDT , EKG Initial EKG: Attestation: I personally reviewed and interpreted this EKG as follows: Comments: Sinus rhythm with a first-degree AV block ventricular rate of 80 bpm. Noted PVCs Discharge Plan Triage Chief Complaint: Shortness of Breath ED Provider: Austin Agustin Dx/Rx/DC Orders Clinical Impression: GI (obstructive sleep apnea), Benign prostatic hyperplasia, CHF (congestive heart failure) Instructions: ED BPH (Enlarged Prostate) Prescriptions: New tamsulosin [Flomax] 0.4 mg capsule 0.4 mg PO QHS Qty: 30 0RF No Action vitamin E 200 unit capsule 200 unit PO DAILY clopidogrel 75 mg tablet 75 mg PO Q OTHER DAY aspirin 81 mg tablet,chewable 81 mg PO Q OTHER DAY metoprolol succinate 25 mg tablet extended release 24 hr See Rx Instructions .ROUTE .COMPLEX Qty: 90 3RF Dose Instruction: TAKE ONE TABLET BY MOUTH EVERY DAY Rx Instructions: TAKE ONE TABLET BY MOUTH EVERY DAY furosemide [Lasix] 40 mg tablet 40 mg PO DAILY Qty: 90 3RF Primary Care Provider: Pedro Gonzalez Referrals: Pedro Gonzalez MD [Primary Care Provider] - (Please call to follow-up regarding your difficulty urinating) Christina Zurita NP, [employer] [Nurse Practitioner] - As soon as possible (Please call the office either today or tomorrow to inquire about the next steps in the sleep apnea treatment) Activity Restrictions/Additional Instructions: Begin Flomax at nighttime Increase your Lasix/furosemide to 80 mg for the next 5 days Disposition Disposition: Home, Self Care
[2022-01-27 10:47] VITALS: O2SAT 98
[2022-01-27 10:55] LABS: Absolute Lymphocyte Count 2.48 X10^3/uL (0.83-4.51); Absolute Neutrophil Count 3.5 X10^3/uL (2.0-7.7); Basophil# 0.02 X10^3/uL; Basophil% 0.3 % (0-1); Eosinophils% 1.5 % (0-5); Hematocrit 41.4 % (40-54); Lymphocyte # 2.48 X10^3/ul (0.83-4.51); Lymphocyte % 37.2 % (19-41); Mean Corp Hgb Conc 33.8 g/dL (32-36); Mean Corpuscular Hgb 30.3 pg (27.0-32.0); Mean Corpuscular Volume 89.6 fL (80-94); Mean Platelet Vol. 10.3 fl (6.2-12.0); Monocyte# 0.59 X10^3/uL; Monocyte% 8.9 % (0-10); NRBC Flagged by Analyzer 0 % (0-5); Neutrophil # 3.45 X10^3/uL (2.7-7.7); Neutrophil % 51.8 % (47-70); Platelet Count 165 K/mm3 (150-450); RBC Distribution Width CV 13.4 % (11.6-14.6); Red Blood Count 4.62 M/mm3 (4.6-6.2); White Blood Count 6.7 K/mm3 (4.4-11.0)
[2022-01-27 11:10] LABS: ALB/GLOB Ratio 0.9 RATIO (0.9-2.4); AST(SGOT) 17 U/L (15-37); Alanine Aminotransfer ALT/SGPT 24 U/L (16-61); Albumin, Serum 3.5 g/dL (3.2-5.0); Alkaline Phosphatase 93 U/L (45-117); Anion Gap 6 (5-15); BUN 26 mg/dL (7-18); Calcium,Total 8.9 mg/dL (8.5-10.1); Chloride 105 mmol/L (98-107); Creatinine, Serum 1.18 mg/dL (0.70-1.30); EST Glomerular Filtration Rate 63 mL/min (>60); Est Glom Filt Rate - Afr Amer 76 mL/min (>60); Estimated Creatinine Clearance 42.71 ml/min; Globulin 3.7 g/dL (2.2-4.2); Glucose 105 mg/dL (74-106); Protein, Total 7.2 g/dL (6.4-8.2); Sodium Level 137 mmol/L (136-145); Troponin-I HS 21 pg/mL (3.0-78.0)
[2022-01-27 11:18] LABS: BNP,B-Type NATRIURETIC PEPTIDE 953.6 pg/mL (0-100)
[2022-01-27 13:25] VITALS: BP 147/82; O2SAT 94
== END 2022-01-27 13:43 | disposition home or self-care (01) ==
PROVIDERS: Emergency Provider Emergency Medicine; PCP Family Medicine; Visit Provider Emergency Medicine
DX: G47.33 Obstructive sleep apnea (adult) (pediatric) (principal); I50.22 Chronic systolic (congestive) heart failure; N40.0 Benign prostatic hyperplasia without lower urinary tract symptoms; I25.10 Atherosclerotic heart disease of native coronary artery without angina pectoris; Z95.1 Presence of aortocoronary bypass graft; Z79.82 Long term (current) use of aspirin; Z79.899 Other long term (current) drug therapy; Z95.5 Presence of coronary angioplasty implant and graft
CPT/HCPCS: 71045; 80053; 83880; 84484; 85025; 93005; 99282

== ENCOUNTER → 2022-02-01 | Outpatient (CLI) | payer OTHER, SELFPAY ==
[2022-02-01 10:32] LABS: AST(SGOT) 21 U/L (15-37); Alanine Aminotransfer ALT/SGPT 27 U/L (16-61); Albumin, Serum 3.6 g/dL (3.2-5.0); Alkaline Phosphatase 95 U/L (45-117); Bilirubin, Direct 0.19 mg/dL (0.00-0.30); Cholesterol 279 mg/dL (200); Globulin 3.7 g/dL (2.2-4.2); High Density Lipoprotein 62 mg/dL; Protein, Total 7.3 g/dL (6.4-8.2); Triglycerides 82 mg/dL; Very Low Density Lipoprotein 16 mg/dL (5-40)
== END | disposition home or self-care (01) ==
LOC: LAB 09:16
PROVIDERS: PCP Family Medicine; Referring Provider Internal Medicine Cardiovascular Disease; Visit Provider Internal Medicine Cardiovascular Disease
DX: I25.810 Atherosclerosis of coronary artery bypass graft(s) without angina pectoris (principal); I25.10 Atherosclerotic heart disease of native coronary artery without angina pectoris; E78.2 Mixed hyperlipidemia; Z95.1 Presence of aortocoronary bypass graft
CPT/HCPCS: 36415; 80061; 80076

== ENCOUNTER → 2022-02-02 | Outpatient (CLI) | payer SELFPAY, OTHER | END | disposition home or self-care (01) | LOC: SL 19:56 | PROVIDERS: PCP Family Medicine; Referring Provider Nurse Practitioner Acute Care; Visit Provider Nurse Practitioner Acute Care | DX: G47.33 Obstructive sleep apnea (adult) (pediatric) (principal) | CPT/HCPCS: 95811 ==

== ENCOUNTER → 2022-03-11 | Outpatient (CLI) | payer SELFPAY, OTHER ==
--- NOTE | 2022-03-11 06:06 | ECHOCS_ITS ---
Reason For Study: CAD/ASHD Procedure This was a 2D Doppler, Color Flow transthoracic echocardiogram. The study was technically difficult. Contrast injection was performed. Exam performed in department. Left Ventricle Mildly dilated left ventricle. Moderate segmental systolic dysfunction (see wall motion). The estimated ejection fraction is 35 %. Posterior-Basal: Hypokinetic. Infero-Basal: Hypokinetic. Mid- Anterior : Hypokinetic. Mid-Lateral : Hypokinetic. Mid-Posterior: Akinetic. Mid-Inferior: Hypokinetic. Anterior Sophia : Hypokinetic. Inferior Sophia : Akinetic. Lateral Sophia : Hypokinetic. Septal Sophia : Hypokinetic. Right Ventricle Normal RV size. Normal systolic function. Atria The left atrium is moderately enlarged. Normal right atrium. No doppler evidence for ASD. Mitral Valve There is no mitral annular calcification. Mild papillary muscle dysfunction of the mitral valve. Moderately severe (3+) eccentric mitral valve insufficiency. Tricuspid Valve Normal tricuspid valve. Mild to moderate (1-2+) tricuspid valve insufficiency. Right ventricular systolic pressure estimated to be 40 mmHg. Aortic Valve Mild (1+) eccentric aortic valve insufficiency. Stable appearing bioprosthetic aortic valve apparatus. Pulmonic Valve The pulmonic valve is not well visualized. Mild (1+) pulmonic valve insufficiency. Great Vessels Normal sized aortic root. Pericardium/Pleural No pericardial effusion. Medication Diluted definity 1ml given slow IV push to enhance endocardial definition. MMode/2D Measurements & Calculations LVIDd: 5.8 cm IVSd: 1.0 cm LVOT diam: 2.1 cm LVIDs: 5.1 cm LVPWd: 1.0 cm RVDd: 5.0 cm FS: 12.6 % LVOT area: 3.6 cm2 Ao root diam: 3.4 cm LAV(MOD-bp): 90.9 ml LVAd ap4: 41.1 cm2 LAV(MOD-bp) Indexed: 47.1 ml/m2 LVLd ap4: 7.5 cm LAV(MOD-sp2): 80.6 ml EDV(MOD-sp4): 180.7 ml LAV(MOD-sp4): 86.9 ml EDV(sp4-el): 190.8 ml LVAs ap4: 33.7 cm2 LVLs ap4: 7.6 cm ESV(MOD-sp4): 126.1 ml ESV(sp4-el): 127.3 ml EF(MOD-sp4): 30.2 % EF(sp4-el): 33.3 % SV(MOD-sp4): 54.7 ml SV(sp4-el): 63.5 ml LA A4 area: 25.2 cm2 LA dimension(2D): 5.2 cm RA A4 area: 19.9 cm2 Doppler Measurements & Calculations MV E max jamie: 115.8 cm/sec Med Peak E' Jamie: 3.8 cm/sec Ao V2 max: 182.6 cm/sec MV A max jamie: 30.2 cm/sec E/E' med: 30.3 Ao max P.3 mmHg MV E/A: 3.8 Ao V2 mean: 125.6 cm/sec Ao mean P.2 mmHg Ao V2 VTI: 45.6 cm AUSTIN(I,D): 2.5 cm2 [place]IN(V,D): 2.6 cm2 AI max jamie: 296.1 cm/sec LV V1 max: 131.6 cm/sec SV(LVOT): 112.3 ml AI max P.1 mmHg LV V1 max P.9 mmHg LV V1 mean P.5 mmHg AI dec slope: 185.9 cm/sec2 LV V1 mean: 100.9 cm/sec AI P1/2t: 466.4 msec LV V1 VTI: 31.1 cm PA V2 max: 76.9 cm/sec TR max jamie: 305.7 cm/sec TR max P.4 mmHg ECHO/Echo Complete W/ Contrast Interpretation Summary The study was technically difficult. Contrast injection was performed. Mildly dilated left ventricle. Moderate segmental systolic dysfunction (see wall motion). The estimated ejection fraction is 35 %. The left atrium is moderately enlarged. Mild papillary muscle dysfunction of the mitral valve. Moderately severe (3+) eccentric mitral valve insufficiency. Mild to moderate (1-2+) tricuspid valve insufficiency. Stable appearing bioprosthetic aortic valve apparatus. Mild (1+) eccentric aortic valve insufficiency. Mild (1+) pulmonic valve insufficiency. Right ventricular systolic pressure estimated to be 40 mmHg. Transmitral diastolic flow velocities suggest diastolic dysfunction (pseudonorm al pattern). Ordering Physician: Brady Escalera Referring Physician: Gonzalez, Pedro Performed By: Lashawn Marinelli IGNACIO, RVT
== END | disposition home or self-care (01) ==
PROVIDERS: PCP Family Medicine; Referring Provider Internal Medicine Cardiovascular Disease; Visit Provider Internal Medicine Cardiovascular Disease
DX: I50.22 Chronic systolic (congestive) heart failure (principal); E78.2 Mixed hyperlipidemia; I25.10 Atherosclerotic heart disease of native coronary artery without angina pectoris; Z95.1 Presence of aortocoronary bypass graft; Z95.5 Presence of coronary angioplasty implant and graft; Z95.3 Presence of xenogenic heart valve
CPT/HCPCS: 78452; 93017; 93306; A9500; Q9957; A4216; C8929

== ENCOUNTER → 2022-03-22 | Outpatient (CLI) | payer OTHER, SELFPAY ==
[2022-03-22 10:37] LABS: Hematocrit 40.7 % (40-54); Hemoglobin 13.6 g/dL (13.0-16.5); Mean Corp Hgb Conc 33.4 g/dL (32-36); Mean Corpuscular Hgb 30.1 pg (27.0-32.0); Mean Platelet Vol. 10.6 fl (6.2-12.0); Platelet Count 169 K/mm3 (150-450); RBC Distribution Width CV 13.8 % (11.6-14.6); RBC Distribution Width SD 45.1 fl (35.1-43.9); Red Blood Count 4.52 M/mm3 (4.6-6.2); White Blood Count 6.9 K/mm3 (4.4-11.0)
[2022-03-22 10:48] LABS: Prothrombin Time (Protime)PT. 13.1 SECONDS (11.7-14.9)
[2022-03-22 10:49] LABS: Partial Thromboplast Time 31.9 Seconds (24.1-36.2)
[2022-03-22 11:08] LABS: Anion Gap 5 (5-15); BUN 30 mg/dL (7-18); Calcium,Total 9.2 mg/dL (8.5-10.1); Chloride 105 mmol/L (98-107); Creatinine, Serum 1.25 mg/dL (0.70-1.30); EST Glomerular Filtration Rate 59 mL/min (>60); Est Glom Filt Rate - Afr Amer 71 mL/min (>60); Glucose 101 mg/dL (74-106); Potassium 3.8 mmol/L (3.5-5.1); Sodium Level 139 mmol/L (136-145)
== END | disposition home or self-care (01) ==
LOC: LAB 09:43
PROVIDERS: PCP Family Medicine; Visit Provider Internal Medicine Cardiovascular Disease
DX: R94.39 Abnormal result of other cardiovascular function study (principal); I25.10 Atherosclerotic heart disease of native coronary artery without angina pectoris; R06.09 Other forms of dyspnea; Z95.1 Presence of aortocoronary bypass graft; Z95.5 Presence of coronary angioplasty implant and graft
CPT/HCPCS: 36415; 80048; 85027; 85610; 85730

== ENCOUNTER 2022-03-29 12:45 | Observation (INO) | payer SELFPAY, OTHER ==
--- NOTE | 2022-03-26 13:43 | HP.PCM_ITS ---
History and Physical Date of Admission: 03/29/22 [facility] [address] [place], [place] [address] OFFICE VISIT Date of Service:? 02/09/22 MR#: [id number] Acct: [id number] Name:JOSELUIS ISIDRO Rep #: [id number] : 1940 ?Provider: Dr. Brady Escalera MD Age/Sex:? 82/M ?Location: [facility] Status: Signed HPI [facility] History of Present Illness Details: ?JOSELUIS VARGAS, is a 81 year old white male who presents to the office today for an outpatient cardiovascular follow-up with a history of CAD s/p PCI to ostial, proximal, and mid RCA on 11/22/2017 at [facility], previous CABG with ALSTON to LAD at [facility] in 1995 and redo CABG at [facility] in 2001 with SVG to LCX and SVG to RPDA, aortic valve stenosis s/p TAVR on 12/27/2017 at [facility] with #26mm Buckley Jennifer S3 valve, mitral valve regurgitation, and hyperlipidemia. He states he did have COVID-19 in late May/early June 2020. Presented recently to the [facility] emergency department based upon concerns of shortness of breath and dyspnea.? He was found to have an elevated BNP level and a chest x-ray that suggested the possibility of mild CHF type findings.? It appears his diuretics were adjusted, according to him, and his furosemide was increased to 80 mg a day.? There were also concerns as to whether or not he was having urologic issues as well as obstructive sleep apnea issues.? Thus he was placed on additional medical therapy with Flomax and has subsequently undergone a sleep study. At the moment he states he does feel somewhat better.? He still feels he gets short of breath and dyspneic which can occur anytime but his son states its more so with exertion.? There is been no acute orthopnea or PND.? He is wearing support stockings today.? He does not appear to demonstrate any ongoing lower extremity peripheral pitting edema.? There is been no near-syncope or syncope. Intake Vital Signs ? 04/13/2110:48 01/27/2210:14 02/09/2211:06 02/09/2211:09 Height 5 ft 5 in 5 ft 5 in 5 ft 5 in 5 ft 5 in Weight: ? 185 lb 6.54 oz ? 185 lb 5 oz BMI ? 30.8 ? 30.8 BP ? 150/83 H ? 130/62 H Blood Pressure Location ? ? ? Lt brachial Position ? ? ? Sitting Respiration ? 14 ? 16 Pulse ? 80 ? 60 Pulse Source ? ? ? Auscultation Temp ? 97.1 F L ? ? Pulse Oximetry (%) ? 98 ? ? 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 Required: No Accompanied by: Son Allergies No Known Allergies Allergy (Verified 02/09/22 11:09) Medications vitamin E 200 unit capsule 200 unit PO DAILY 09/14/20 [History Confirmed 02/09/22] metoprolol succinate 25 mg tablet,extended release 24 hr See Rx Instructions .Route .COMPLEX #90 tabs 12/25/20 [Rx Confirmed 02/09/22] aspirin 81 mg chewable tablet 81 mg PO Q OTHER DAY 09/10/21 [History Confirmed 02/09/22] clopidogrel 75 mg tablet 75 mg PO Q OTHER DAY 09/10/21 [History Confirmed 02/09/22] tamsulosin 0.4 mg capsule (Flomax) 0.4 mg PO QHS #30 caps 01/27/22 [Rx Confirmed 02/09/22] furosemide 40 mg tablet (Lasix) 40 mg PO .COMPLEX #90 tabs 02/09/22 [Rx Confirmed 02/09/22] PFSH Medical History? Abnormal stress test Atherosclerosis of coronary artery bypass graft without angina pectoris Atherosclerotic heart disease of [place] coronary artery without angina pectoris Chest pain, unspecified Chronic systolic (congestive) heart failure Dyspnea on exertion Hyperlipidemia Nonrheumatic aortic (valve) stenosis Surgical History? H/O coronary artery bypass surgery (~01/2002) History of aortic valve replacement with bioprosthetic valve (~12/27/17) History of arthroplasty of knee History of left inguinal hernia repair (~1961) Postsurgical percutaneous transluminal coronary angioplasty (PTCA) status Presence of stent in coronary artery Family History? Father?? Myocardial infarction CVA (cerebral vascular accident)Mother?? CHF (congestive heart failure)Brother CAD (coronary artery disease) Cancer ?? ? leukemia Social History? Smoking Status:? Never smoker alcohol intake:? never substance use type:? does not use caffeine:? No what type of physical activity do you participate in:? walking frequency:? 5-6 times per week duration:? 30-45 minutes/day seatbelt use:? sometimes do you feel safe at home:? Yes ROS Const Const: Positive for fatigue (continues, slightly increased); Negative for weakness, body ache, fever(s), headache(s), chills, frequent falls, night sweats, daytime sleepiness, difficulty sleeping, excessive sweating, weight gain, weight loss, increased appetite, poor appetite, anorexia or other Eyes Eyes: Negative for blurry vision or double vision ENT ENT: Negative for headache(s), dizziness or balance problems Cardio Chest Pain: No Palpitations: No Edema: None Muscle aches with walking: None Resp Respiratory: Positive for SOB with activity (baseline, exacerbated with hot/high humidity), SOB orthopnea\SOB lying down (occasional; recent sleep study completed) and Cough (productive clear); Negative for SOB at rest, Coughing up blood/hemoptysis, chest congestion, pain on inspiration, snoring, stridor, wheezing, crackles, paroxysmal nocturnal dyspnea or other Musc Musc: Positive for muscle aches/ myalgia (generalized bilat LE); Negative for muscle weakness, joint pain or balance problems Neuro Neuro: Positive for lightheadedness (bending over); Negative for dizziness, near syncope, syncope, orthostatic symptoms, frequent falls, headache(s), weakness, confusion, memory loss, restless legs, blurry vision, double vision, vertigo, seizures, lack of coordination or other Endo Endo: Positive for fatigue (continues, slightly increased); Negative for excessive sweating Cardiology Exam Const Appearance: cooperative, healthy appearing, comfortable, no acute distress, well developed and well groomed Nutritional Appearance: well nourished and obese Orientation: alert, awake and oriented x3 Head Head: normal to inspection, normocephalic and atraumatic Ears: hearing grossly normal bilaterally Nose: external nose normal Face and Sinus: face symmetric Eyes General: appearance normal, both eyes and all related structures Eyelids: eyelids normal EOM: EOM intact bilaterally Neck Neck: normal visual inspection, full ROM and no JVD Carotids: normal carotid upstroke Chest Chest inspection: normal inspection of the chest, symmetric chest movement and normal respiratory effort; Negative cough Auscultation: Bilateral: Clear to Auscultation Cardio Rate: regular rate Rhythm: regular rhythm Heart sounds: S1 normal, S2 normal and gallop GI GI: normal to inspection, soft, bowel sounds present and obese Neuro General: patient alert, patient awake, patient oriented x3 and moves all extremities Skin Skin: no rashes or lesions noted Extremities Pulses: Normal: Right Posterior Tibial Pulse, Left Posterior Tibial Pulse, Right Radial Pulse and Left Radial Pulse Lower Extremity Edema: None: Bilateral Psych Psychological: normal affect Supplemental Info Supplemental Information Transthoracic echocardiogram: 12/24/2018 Interpretation Summary Mild segmental systolic dysfunction (see wall motion). The estimated ejection fraction is 45 %. Post operative septal motion. The left atrium is mildly enlarged. Mild diffuse mitral valve thickening. Mild-Moderate (1-2+) mitral valve insufficiency. Mild tricuspid valve insufficiency. Stable appearing bioprosthetic aortic valve apparatus. Mild transvalvular insufficiency of the aortic valve. Trivial pulmonic valve insufficiency. Right ventricular systolic pressure estimated to be 37 mmHg. Transmitral diastolic flow velocities suggest diastolic dysfunction (pseudonormal pattern). Stress test: 08/03/2017 The patient exercised on a Dallin protocol for 4 minutes completing stage I and I minute of stage III achieving a peak heart rate of 126 bpm (88% predicted maximal heart rate) with a peak blood pressure 142/70 mmHg and a peak MET capacity of approximately 5-6 METs. ? The baseline ECG demonstrated sinus bradycardia with poor R-wave progression.? The peak exercise ECG demonstrated approximately 0.[address] segment depression in leads II, III, aVF, and V5 through V6.? There was gradual resolution towards baseline in recovery. ? There were occasional PVCs and ventricular couplets pretest, during exercise, and recovery. ? There was the appearance of brief transient idioventricular rhythm (approximately 4 beats) pretest and approximately 3 beats at (in recovery). ? Functional capacity appeared to be decreased. ? The patient noted shortness of breath/dyspnea, chest discomfort, and dizziness at peak exercise.? There was spontaneous resolution of symptoms and recovery. ? The examination was discontinued secondary to concerns of shortness of breath/dyspnea. ? Impression: ? 1.? Technically adequate (percent predicted maximal heart rate greater than 85%) exercise tolerance test 2.? Peak exercise ECG with approximately 0.[address] segment depression in leads II, III, aVF, and V5 through V6. 3.? Occasional PVCs and ventricular couplets pretest, during exercise, and recovery 4.? Brief transient idioventricular rhythm (approximately 4 beats) pretest and approximately 3 beats (in recovery) 5.? Nuclear images pending ? Myocardial perfusion imaging study: ? Technique: ? The patient was injected with 14.3 mCi of technetium 99m Cardiolite and subsequently rest SPECT Cardiolite nuclear imaging was obtained in the horizontal long, vertical long, and short axis views. The patient exercised on a Dallin protocol for 4 minutes completing stage I and I minute of stage III achieving a peak heart rate of 126 bpm (88% predicted maximal heart rate) with a peak blood pressure 142/70 mmHg and a peak MET capacity of approximately 5-6 METs.? The patient was injected with 44.6 mCi of technetium 99m Cardiolite and subsequently stress SPECT Cardiolite nuclear imaging was obtained in the horizontal long, vertical long, and short axis views.? A gated Cardiolite study at peak stress was obtained. ? Interpretation: ? Rest and stress SPECT Cardiolite nuclear imaging, status post realignment, normalization, and attenuation correction, demonstrates the appearance of relative uniform tracer uptake with the exception of an area of diminished tracer uptake near the apical segments which appears to be somewhat more prominent following stress as opposed to rest.? Also following stress as opposed to rest the left ventricular cavity appears to be somewhat more dilated.? There is notation of end systolic thickening and brightening.? The gated Cardiolite study demonstrates myocardial thickening and inward wall motion.? The reported LVEF is 44%. ? Impression: ? 1.? Rest and stress SPECT Cardiolite nuclear imaging demonstrate myocardial perfusion changes concerning for physiologic apical thinning, however, equivocal apical myocardial ischemia cannot be excluded. 2.? SPECT Cardiolite nuclear imaging demonstrates the left ventricular cavity appearing somewhat more dilated as opposed to rest. 3.? The gated Cardiolite study reports an LVEF of 44%. Cardiac catheterization: 09/12/2017 CONCLUSIONS Elevated Left Ventricular End Diastolic Pressure Right heart pressures? - moderately elevated The patient has pulmonary hypertension which is moderate. Intracardiac shunting: None Segmented LV systolic dysfunction- Moderate LVEF: by LV gram 35 % [place] Multivessel CAD ALSTON to the LAD: patent SVG to OM1: patent SVG to RPDA: occluded Aortic Valve Stenosis- Severe Mitral Valve Insufficiency Moderate RECOMMENDATIONS Risk factor modification Medical therapy Surgery consult for coronary revascularization Surgery consult for valvular disease CORONARY ANGIOGRAPHY DOMINANCE:? Right Dominant LEFT HEART ASSESSMENT Left Ventricular Ejection Fraction: by LV Gram 35 % Anterior Hypokinesis. Inferior Basal Akinesis. Inferior Mid Hypokinesis - Severe. Apical Hypokinesis - Severe Elevated Left Ventricular End Diastolic Pressure LVEDP: 26 mmHg RIGHT HEART ASSESSMENT Thermal CO: 2.71? Thermal CI: 1.38 PW: ? PA: 44/14? 25 RV: 44/-2? 7 RA: 6/? 4 PVR: 236? SVR: 2686 Aortic Valve Area: 0.67 Aortic Valve Index: 0.34? Aortic Valve Mean Gradient: 22.5 Right Heart pressures - elevated Pulmonary Hypertension Intracardiac shunting: None LEFT MAIN: Distal: 95 % Stenosis LEFT ANTERIOR DESCENDING ARTERY: MID LAD: Moderate calcification, S/P Septal Detail Sergeant: 100 % Stenosis CIRCUMFLEX ARTERY: PROX CIRC: 99 % Stenosis RIGHT CORONARY ARTERY: PROX RCA: Mild luminal irregularities, Previously placed stent has an instent distal: 75 % restenosis MID RCA: Eccentric: 85 % Stenosis DISTAL RCA: Eccentric: 85 % Stenosis GRAFTS: ALSTON graft to the Mid LAD is patent with no angiographically significant disease distal to the graft attachment Saphenous Vein graft to the 1st OM is patent with no angiographically significant disease distal to the graft attachment Saphenous Vein graft to the RPDA is totally occluded VALVE FINDINGS: Aortic Valve Stenosis - severe Mitral Valve Insufficiency - Grade 2 AORTIC ROOT: Angiographically normal PCI: [facility]: 11/22/2017 PCI to the proximal, mid, and distal RCA Transcatheter aortic valve replacement: [facility]: 12/27/2017 36 mm Buckley Sapian S3 CABG (1995 and 2001): Per the 2001 to report he had redo CABG with an SVG to the OM and PDA as well as a distal anastomosis revision of the ALSTON to the LAD The 1995 report he had a minimally invasive surgery with a ALSTON to the LAD Labs: ?? ? LDL Cholesterol 201 mg/dL (0-130)? H ?? ? HDL Cholesterol 62 mg/dL (40-) ?? ? Triglycerides 82 mg/dL (-199) ?? ? VLDL Cholesterol 16 mg/dL (5-40) Diagnostics: ?? ? Electrocardiogram ? Echocardiogram ? Stress Test NM ? Stress Test ? Cardiac Catheterization ? Chest X-Ray ? Pulmonary: ?? ? No Data to Display Assessment and Plan Assessment and Plan (1) Atherosclerotic heart disease of [place] coronary artery without angina pectoris: ?Status:?Chronic ?Qualifiers: ?[place] vs. transplanted heart:?[place] heart? Qualified Code(s):?I25.10 - Atherosclerotic heart disease of [place] coronary artery without angina pectoris ?Comment: PTCA of anastomosis of ALSTON to LAD January 2002; PTCA of the RCA 04/14; 11/2012 @ [facility] - patent grafts;PCI/ENE to the ostial, proximal, and mid-distal RCA 11/22/17; CABG: ALSTON to LAD 06/07/1996; Redo CABG ALSTON to LAD, SVG to RPDA 01/13 ?Plan: The present time he will continue risk factor evaluation care as deemed appropriate. Based upon his symptoms he will undergo further evaluation of his coronary/graft physiology with an exercise tolerance test. Depending upon the findings he may or may not need further evaluation with diagnostic cardiac catheterization. (2) Presence of stent in coronary artery: ?Status:?Chronic ?Comment: PCI/ENE to the ostial, proximal, and mid-distal RCA 11/22/17 ?Plan: He did does have a history of PCI. Again he will continue noninvasive evaluation at this time. (3) H/O coronary artery bypass surgery: ?Status:?Chronic ?Comment: CABG: ALSTON to LAD 06/07/1996; Redo CABG ALSTON to LAD, SVG to RPDA 01/13 ?Plan: He did have a history of seizure BG. His last cardiac catheterization as noted. At that time he did have an SVG that was occluded. He will continue his noninvasive valuation based upon his current clinical scenario. (4) Chronic systolic (congestive) heart failure: ?Status:?Chronic ?Plan: There is a concern of chronic systolic mediated CHF. He will continue with his advanced dose furosemide therapy. He will have follow-up of his left ventricular wall motion and systolic function with a transthoracic echocardiogram. (5) History of aortic valve replacement with bioprosthetic valve: ?Status:?Chronic ?Comment: TAVR 26mm Buckley Jennifer S3 valve 12/27/17 ?Plan: He has a known TAVR in the past. Again he will be reassessed with a transthoracic echocardiogram to compare to his previous studies for any concern of progression of aortic valve disease that would warrant additional evaluation and care. (6) Hyperlipidemia: ?Status:?Chronic ?Qualifiers: ?Hyperlipidemia type:?mixed hyperlipidemia? Qualified Code(s):?E78.2 - Mixed hyperlipidemia ?Plan: His lipid labs were reviewed and read suddenly.? His total cholesterol remains elevated at 279 with an LDL of 201 and an HDL of 62.? His triglycerides were 82. A discussion was held with him again.? He has been on multiple lipid-lowering medications.? He states he cannot tolerate any of them. Thus he is trying to do the best he can with his diet. ? ? ? Orders: Orders Echo Complete Today E78.2 - Mixed hyperlipidemia, I25.10 - Atherosclerotic heart disease of [place] coronary artery without angina pectoris, I50.22 - Chronic sy stolic (congestive) heart failure, Z95.1 - Presence of aortocoronary bypass graft, Z95.3 - Presence of xenogenic heart valve, Z95.5 - Presence of coronary angioplasty implant and graft ? Nuclear Stress Test - Treadmil Today E78.2 - Mixed hyperlipidemia, I25.10 - Atherosclerotic heart disease of [place] coronary artery without angina pectoris, I50.22 - Chronic systolic (congestive) heart failure, Z95.1 - Presence of aortocoronary bypass graft, Z95.3 - Presence of xenogenic heart valve, Z95.5 - Presence of coronary angioplasty implant and graft ? Medications: Changed From furosemide (Lasix) 40 mg? PO DAILY 90 tabs 3RF ? ? To furosemide (Lasix) ?2 40 mg tablets orally per day 90 tabs 3RF ? ? Plan Details Additional Comments: He is going to follow-up with Dr. Montanez of pulmonology. He states he is to follow-up with urology as well. Otherwise he will continue his noninvasive cardiovascular evaluation. The above was discussed with the patient with his son present.? He was agreeable to this approach. Thank you for allowing us to participate in the patients plan of care, if you have any questions please do not hesitate to call. This note was generated using a voice recognition system and there may be incorrect words, spelling or punctuation that were not noted when reviewing the office note prior to saving. Portions of this documentation were copied and pasted from previous office visit notes to provide a cohesive continuity of the history. The note has been reviewed, edited, and updated, as necessary. Follow Up: ? ? 3 Months (PFM ) COVID (Procedure Consent) Procedure Criteria Procedure Criteria: Yes Elective The surgeon/proceduralist and patient have discussed in detail the risk of exposure to and/or potential harm posed by the COVID-19 virus with having a surgery/procedure at this time versus the risk of? delaying the surgery/procedure. It is not possible to know either the risk of delaying the surgery or procedure or chance of getting an infection with perfect accuracy, but a joint decision was made between the patient and the surgeon/proceduralist ?to proceed at this time with the scheduled surgery/procedure as indicated on the consent form. Coding Level of Care Code Off vis,new,level 5 Diagnoses Atherosclerotic heart disease of [place] coronary artery without angina pectoris? I25.10 ? ? ? [place] vs. transplanted heart: [place] heart Presence of stent in coronary artery? Z95.5 H/O coronary artery bypass surgery? Z95.1 Chronic systolic (congestive) heart failure? I50.22 History of aortic valve replacement with bioprosthetic valve? Z95.3 Hyperlipidemia? E78.2 ? ? ? Hyperlipidemia type: mixed hyperlipidemia Coding Level of Care Code Off vis,new,level 5 Diagnoses Atherosclerotic heart disease of [place] coronary artery without angina pectoris? I25.10 ? ? ? [place] vs. transplanted heart: [place] heart Presence of stent in coronary artery? Z95.5 H/O coronary artery bypass surgery? Z95.1 Chronic systolic (congestive) heart failure? I50.22 History of aortic valve replacement with bioprosthetic valve? Z95.3 Hyperlipidemia? E78.2 ? ? ? Hyperlipidemia type: mixed hyperlipidemia 02/09/22 1156 <Electronically signed by Brady Escalera MD> Date Brady Escalera MD [facility] Signature: Date (if applicable) CC:? Dr. Pedro Gonzalez MD ~ Assessment & Plan Addt'l Comments I have examined the patient the following changes are noted: The patient has undergone evaluation with both a transthoracic echocardiogram and a stress nuclear imaging study. The results are noted below. Transthoracic echocardiogram: 03-11-2022 Interpretation Summary The study was technically difficult. Contrast injection was performed. ? Mildly dilated left ventricle. Moderate segmental systolic dysfunction (see wall motion). The estimated ejection fraction is 35 %. The left atrium is moderately enlarged. Mild papillary muscle dysfunction of the mitral valve. Moderately severe (3+) eccentric mitral valve insufficiency. Mild to moderate (1-2+) tricuspid valve insufficiency. Stable appearing bioprosthetic aortic valve apparatus. Mild (1+) eccentric aortic valve insufficiency. Mild (1+) pulmonic valve insufficiency. Right ventricular systolic pressure estimated to be 40 mmHg. Transmitral diastolic flow velocities suggest diastolic dysfunction (pseudonormal pattern). ADDENDUM by Dr. Brady Escalera MD on 03/15/22 at 0852 Addendum: Corrections: Date of procedure: 03-11-2022 Date of report: 03-15-2022 Procedure: Should read: The patient exercised on a Dallin protocol for 3 minutes and 31-seconds completing Stage I and 31 seconds of Stage II achieving a peak heart rate of 114 bpm (82% predicted maximal heart rate) with a peak blood pressure 148/70 mmHg and a peak MET capacity of 5 METs. Impression: Should read: Impression: 1.? Technically inadequate (percent predicted maximal heart rate less than 85%) exercise tolerance test Technique: Should read: Technique: The patient was injected with 13.25 mCi of technetium 99m Cardiolite and subsequently rest SPECT Cardiolite nuclear imaging was obtained in the horizontal long, vertical long, and short axis views. The patient exercised on a Dallin protocol for 3 minutes and 31-seconds completing Stage I and 31 seconds of Stage II achieving a peak heart rate of 114 bpm (82% predicted maximal heart rate) with a peak blood pressure 148/70 mmHg and a peak MET capacity of 5 METs. The patient was injected with 44.4 mCi of technetium 99m Cardiolite and subsequently stress SPECT Cardiolite nuclear imaging was obtained in the horizontal long, vertical long, and short axis views.? A gated Cardiolite study at peak stress was obtained. This note was generated using a voice recognition system and there may be incorrect words, spelling or punctuation that were not noted when reviewing the office note prior to saving. Date Brady Escalera MD cc:? Dr. Pedro Gonzalez MD; Dr. Brady Escalera MD ~* Signed Stress Test Report Date: 03-15-2022 Procedure: Exercise tolerance test/imaging study Indications: Shortness of breath/dyspnea on exertion; CAD; PCI; CABG; status post TAVR; status post COVID-19 Consent: Per the patient Procedure: The patient exercised on a Dallin protocol for 3 minutes and 31-second minutes completing Stage I and 31 seconds of Stage II achieving a peak heart rate of 114 bpm (82% predicted maximal heart rate) with a peak blood pressure 148/70 mmHg and a peak MET capacity of 5 METs. The baseline ECG demonstrated normal sinus rhythm; poor R wave progression; nonspecific ST/T wave abnormality.? The peak exercise ECG demonstrated continued nonspecific ST/T wave abnormality. There was a rare PVC pretest and during recovery and an isolated ventricular couplet during recovery.? The functional capacity was considered decreased. There was no complaint of chest discomfort during exercise or recovery. The examination was discontinued secondary to dyspnea and fatigue. Impression: 1.? Technically adequate (percent predicted maximal heart rate greater than 85%) exercise tolerance test 2.? Peak exercise ECG with continued nonspecific ST/T wave abnormality 3.? There was a rare PVC pretest and during recovery and an isolated ventricular couplet during recovery 4.? Nuclear images pending Myocardial perfusion imaging study: Technique: The patient was injected with 13.25 mCi of technetium 99m Cardiolite and subsequently rest SPECT Cardiolite nuclear imaging was obtained in the horizontal long, vertical long, and short axis views. The patient exercised on a [place] protocol for 3 minutes and 31-second minutes completing Stage I and 31 seconds of Stage II achieving a peak heart rate of 114 bpm (82% predicted maximal heart rate) with a peak blood pressure 148/70 mmHg and a peak MET capacity of 5 METs. The patient was injected with 44.4 mCi of technetium 99m Cardiolite and subsequently stress SPECT Cardiolite nuclear imaging was obtained in the horizontal long, vertical long, and short axis views.? A gated Cardiolite study at peak stress was obtained. Interpretation: Rest and stress SPECT Cardiolite nuclear imaging status post realignment, normalization, and attenuation correction, demonstrates the appearance status post stress and an element of diminished myocardial perfusion/tracer uptake in the distal anterior/anteroapical areas.? There are similar type findings on the stress polar map images.? There is diminished end-systolic thickening and brightening.? The gated Cardiolite study demonstrates diminished myocardial thickening and inward wall motion.? The reported LVEF is 35%. Impression: 1.? Rest and stress SPECT Cardiolite nuclear imaging demonstrate myocardial perfusion changes appearing compatible with an area of stress-induced myocardial ischemia in portions of the distal anterior/anterior apical areas. 2.? The gated Cardiolite study reports an LVEF of 35%. Based upon the aforementioned clinical course and objective findings it was idris wagner reasonable to patient be reevaluated in the cardiac catheterization laboratory. The procedure and risk were discussed with the patient. He was agreeable to this approach. This note was generated using a voice recognition system and there may be incorrect words, spelling or punctuation that were not noted when reviewing the office note prior to saving.
[2022-03-28 08:38] VITALS: BMI 30.7
[2022-03-29] VITALS (14 sets, daily range): BP systolic 105–131; BP diastolic 56–89; PULSE 70–87; RESP 14–18; TEMP 36.3–36.8; O2SAT 95–100; BMI 31.6
--- NOTE | 2022-03-29 12:38 | PCIREPORT_ITS ---
PCI Cardiac Cath Report PCI Report: 1. Successful placement of high-grade 95% stenosis of SVG graft to the OM1, using drug-eluting stent 3 x 18 mm to the insertion of SVG graft to the OM1(large trifurcating vessel] Postdilatation using a 4 x 12 mm NC balloon to the proximal part of the stent in the distal portion of the SVG graft insertion With reduction of stenosis from 95% to 0% and maintenance of pre and post RAYO-3 flow 2. Selective right common femoral artery angiography and placement of Perclose to close right common femoral artery arteriotomy site Consent; Risk and benefit of the procedure explained detail patient elected to proceed informed consent obtained Preprocedure diagnosis; 82-year-old patient with extensive cardiac history, patient has severe [place] coronary artery disease with CABG done twice And in 2018 had catheter for severe aortic stenosis 's presentation symptoms of shortness of breath. He does not have any active chest pain Recent stress test nuclear stress test showed EF 44% Is abnormal nuclear stress test and based on that he underwent cardiac catheterization by his primary methods and procedures analyst Dr. Escalera I reviewed the angiographic films. Graft angiography showed patency of the ALSTON to LAD, and patency of the SVG graft to large OM1 with a high-grade 95% stenosis at the distal insertion of the graft site trifurcating vessel. SVG graft to RCA is occluded and the stent to the large RCA is patent Intervention equipment used; 1. 6 [place] AL 2 guide catheter 2. 0.014 extra floppy 180 cm guidewire/run-through 3. 2.5 x 12 mm Emerge balloon 4. 3 x 18 mm drug-eluting stent/O[place] 5. 4 x 12 mm NC balloon 6. Perclose to close the right common femoral artery arteriotomy site Medication in the Retail Operations Manager; Heparin with acceptable ACT 2. Patient already on Plavix will give an additional 300 mg of Plavix Access; exchange 6 [place] sheath in the right common femoral artery Procedure in detail; Under fluoroscopic guidance we proceed with the 6 [place] AL 2 guide catheter cannulated the ostium of the SVG graft to the OM1 without difficulty and then will proceed with a guidewire across the lesion at the distal insertion of the SVG graft to the OM1 and then predilated the lesion with 2.5 balloon followed by placement of a drug-eluting stent at the specified and followed by postdilatation And achieve an excellent result with reduction of stenosis from 95% to 0 and maintenance of RAYO-3 flow Conclusion recommendations; Successful PCI of SVG graft to the OM1 2. Patient to continue on DAPT which is Plavix aspirin for 1 year 3. Patient scheduled for cardiac rehab program 4. Patient to follow-up with his primary methods and procedures analyst Dr. Escalera. There is no immediate complication in the Retail Operations Manager. Aden Knutson MD,FACC,[facility]
[2022-03-29] MEDS: 0.9% Normal Saline 1,000 ML 75 ML IV (12:41)
--- NOTE | 2022-03-29 12:45 | CL.D_ITS ---
Patient Name: JOSELUIS VARGAS Study Date: 03/29/2022 Performing: Brady Escalera MD Ht: 65 inches 165 cm : 1940 Wt: 185.4 lbs 84 kg Age: 82 Gender: male BSA: 1.91 PROCEDURE(S) PERFORMED DC04-(10206)LHC/COR/CABG IC14-(06318/[id number])GRAFT-ENE AND/OR PTCA, SINGLE GRAFT CLINICAL PROFILE AND INDICATIONS Indications: Suspected CAD, LV Dysfunction, Cardiomyopathy, Valvular Disease Heart Failure: NYHA Class: 3, Newly Diagnosed: No, Heart Failure Type: Systolic Stress/Imaging Date: 03/11/2022 Angina Classification Anginal Classification w/in 2 Weeks: Anginal Equivalent Dyspnea CAD Presentations: Other: dyspnea on exertion CONCLUSIONS [place] Multivessel CAD ALSTON to LAD: patent SVG to OM1: patent: 85% stenosis near the anastomosis site SVG to RCA: occluded: chronic: not reevaluated during this procedure Stable appearing TAVR apparatus RECOMMENDATIONS Risk factor modification Medical therapy Referred for immediate PCI (SVG to OM1) Case discussed / reviewed with Dr. Knutson of Interventional Cardiology DESCRIPTION OF PROCEDURE The patient arrived to the procedure lab. The risks and benefits of the procedure as well as a full d escription of our services here and current unavailability of surgical backup were fully explained to the patient and/or their significant other prior to the catheterization. The Timeout was completed, verifying the correct patient and procedure. The patient's procedural site was prepped and draped in the usual fashion. Local anesthetic was given subcutaneously to right groin region with Lidocaine 2%. Using a modified Seldinger technique, arterial access was obtained via the right femoral artery, a 4 Fr sheath was inserted Left internal mammary artery graft to the LAD selective angiography was perfo rmed in multiple views using a 4 Fr. 3DRC catheter. Right Coronary Artery selective angiography was t hen performed in multiple views using a 4 Fr. 3DRC catheter. Saphenous Vein graft to the OM 1 selecti ve angiography was performed in multiple views using a 5 Fr. 3DRC (Victorino) catheter. Left Coronary Artery selective angiography was performed in multiple views using a 4 Fr. JL6 catheter .Contrast was injected through the sheath and the Right Iliac and Femoral artery were assessed for po ssible closure device.The arterial sheath was pulled and a Perclose closure device was deployed for h emostasis CORONARY ANGIOGRAPHY LEFT HEART ASSESSMENT Left Ventricular Ejection Fraction: Not assessed LEFT MAIN: small caliber vessel: diffuse angiographically appearing high grade stenosis LEFT ANTERIOR DESCENDING ARTERY: OSTIAL LAD: is occluded CIRCUMFLEX ARTERY: PROX CIRC: subtotally then totally occluded RIGHT CORONARY ARTERY: PROX RCA: Previously placed stent is patent MID RCA: Previously placed stent is patent, s/p mid stent: 25 % Stenosis DISTAL RCA: Previously placed stent is patent GRAFTS: ALSTON graft to the Mid LAD is patent with no angiographically significant appearing disease distal to the graft anastomosis Saphenous Vein graft to the 1st OM has a distal lesion of 85 % (near the anastomosis site) Saphenous Vein graft to the RCA is totally occluded (demonstrated on [facility] cardiac cath from 09/12/2017 and not reevaluated during this procedure) AORTIC ROOT: Stable appearing TAVR apparatus COMPLICATIONS No Complications PROCEDURE MEDICATIONS Versed 1 mg IV Versed 1 mg IV Fentanyl 25 mcg IV Oxygen: 2 L/min via nasal cannula Heparin 7000 unit(s) IV 03/29/2022 10:33:25 Heparin 2000 unit(s) IV 03/29/2022 11:24:54 Plavix 300 mg PO 03/29/2022 11:33:42 SUMMARY OF HEMODYNAMIC DATA Time AIR REST ECG 07:32:32 AO 128/59 (85) SA 10:04:03 AO 135/64 (93) 10:27:03 Signed By Brady Escalera MD On 03/29/2022 12:44:26 Brady Escalera MD
--- NOTE | 2022-03-29 13:56 | EKG12_ITS ---
Test Reason : AM Blood Pressure : / mmHG Vent. Rate : 078 BPM Atrial Rate : 078 BPM P-R Int : 222 ms QRS Dur : 088 ms QT Int : 400 ms P-R-T Axes : 025 002 163 degrees QTc Int : 456 ms Poor data quality, interpretation may be adversely affected Sinus rhythm with 1st degree A-V block Inferior infarct , age undetermined , cannot be excluded Nonspecific T wave abnormality Abnormal ECG Confirmed by OSKAR BROOKS, BRADY ([id number]), editor newspaper SAMMI LIMA ([id number]) on 03/30/2022 12:50:46 PM Referred By: Brady Schmitt Confirmed By:BRADY SCHMITT MD
--- NOTE | 2022-03-29 14:10 | CRPHASE1 ---
Patient Communication Former Patient:: Phase II PHII Cardiac Rehab Discussed with Patient:: Yes Guide to Cardiac Rehab Given to Patient:: Yes Cardiac Rehab Facility Choice List Given to Patient:: Yes Choice Program [facility] CR PHII:: Communication Given to CR Chemical Dependency Counselor:: Aden Knutson Refer Phase II Cardiac Rehab:: Yes Sessions:: 36 sessions - 3 days/wk, 12 weeks Cardiac Rehabilitation Info Cardiac Rehabilitation Program Information: Cardiac Rehabilitation is important for patients like you who are recovering from a heart problem. Cardiac rehabilitation programs are recognized as integral to the continued care of the patient with coronary heart disease. The cardiac rehabilitation program is designed to optimize a patient's physical, psychological, and social functioning. Health floor care specialist work in cardiac rehabilitation programs and assist you with getting the treatments you need to get stronger and healthier - like exercise, healthy eating habits, and medications. Cardiac rehabilitation has been show to help people with heart problems live longer and have better life enjoyment than people who do not go to cardiac rehabilitation. Please contact the Cardiac Rehabilitation Program at [facility] at in two weeks if you have not heard from them.
--- NOTE | 2022-03-29 14:11 | CRPH1.INST_ITS ---
General Education CAD and cardiac anatomy and function:: Patient communicates acknowledgment, Family communicates acknowledgment Explanation of diagnoses and procedures:: Patient communicates acknowledgment, Family communicates acknowledgment Sign/Symptoms of [place]:: Patient communicates acknowledgment, Family communicates acknowledgment Antiplatelet therapy: Patient communicates acknowledgment, Family communicates acknowledgment Proper use of NTG-SL: Patient communicates acknowledgment, Family communicates acknowledgment Emergency procedures and activation of EMS: Patient communicates acknowledgment, Family communicates acknowledgment Compliance of all prescribed medications: Patient communicates acknowledgment, Family communicates acknowledgment Smoking Patient Nicotine/Smoking Risk Factors Are:: Non-smoker Dyslipidemia Patient Dyslipidemia Risk Factors Are:: Total Cholesterol, Triglycerides, HDL, LDL Recommendations Include:: Lipid profile provided Dyslipidemia Response Code:: Patient communicates acknowledgment, Family communicates acknowledgment Overweight/Obesity Patient Overweight/Obesity Risk Factors Are:: Obesity - > or = 30 Recommendations Include:: Weight loss of 5-10%, Reduced calorie diet, Exercise 5-7 times/week Overweight/Obesity:: Patient communicates acknowledgment, Family communicates acknowledgment Hypertension Recommendations Include:: Maintain BP <130/85, Decrease/maintain normal body weight Hypertension:: Patient communicates acknowledgment, Family communicates acknowl edgment Heart Disease Patient Heart Disease Risk Factors Are:: Previous cardiac event Recommendations Include:: Educated family members of their risk Heart Disease Response Code:: Patient communicates acknowledgment, Family communicates acknowledgment
[2022-03-29] MEDS: Tamsulosin HCl 0.4 MG Capsule PO (18:37)
[2022-03-29] MEDS: Furosemide 40 MG Tablet PO (18:37)
[2022-03-30] VITALS (7 sets, daily range): BP systolic 117–129; BP diastolic 60–73; PULSE 66–83; RESP 17–18; TEMP 36.5–36.7; O2SAT 95–97
[2022-03-30 06:28] LABS: Absolute Lymphocyte Count 1.54 X10^3/uL (0.83-4.51); Absolute Neutrophil Count 4.9 X10^3/uL (2.0-7.7); Basophil# 0.02 X10^3/uL; Basophil% 0.3 % (0-1); Eosinophil# 0.08 X10^3/uL; Eosinophils% 1.1 % (0-5); Hematocrit 38.7 % (40-54); Hemoglobin 12.7 g/dL (13.0-16.5); Lymphocyte # 1.54 X10^3/ul (0.83-4.51); Lymphocyte % 21.2 % (19-41); Mean Corp Hgb Conc 32.8 g/dL (32-36); Mean Corpuscular Hgb 29.7 pg (27.0-32.0); Mean Corpuscular Volume 90.4 fL (80-94); Mean Platelet Vol. 10.6 fl (6.2-12.0); Monocyte# 0.67 X10^3/uL; Monocyte% 9.2 % (0-10); NRBC Flagged by Analyzer 0 % (0-5); Neutrophil # 4.92 X10^3/uL (2.7-7.7); Neutrophil % 67.9 % (47-70); Platelet Count 133 K/mm3 (150-450); RBC Distribution Width CV 14.2 % (11.6-14.6); Red Blood Count 4.28 M/mm3 (4.6-6.2); White Blood Count 7.3 K/mm3 (4.4-11.0)
[2022-03-30 07:13] LABS: ALB/GLOB Ratio 0.9 RATIO (0.9-2.4); AST(SGOT) 27 U/L (15-37); Alanine Aminotransfer ALT/SGPT 27 U/L (16-61); Alkaline Phosphatase 86 U/L (45-117); Anion Gap 6 (5-15); BUN 19 mg/dL (7-18); BUN/Creat Ratio 18.8 RATIO (10-20); Calcium,Total 8.2 mg/dL (8.5-10.1); Chloride 106 mmol/L (98-107); Creatinine, Serum 1.01 mg/dL (0.70-1.30); EST Glomerular Filtration Rate 75 mL/min (>60); Est Glom Filt Rate - Afr Amer 91 mL/min (>60); Estimated Creatinine Clearance 49.05 ml/min; Globulin 3.5 g/dL (2.2-4.2); Glucose 107 mg/dL (74-106); Potassium 3.8 mmol/L (3.5-5.1); Protein, Total 6.5 g/dL (6.4-8.2); Sodium Level 138 mmol/L (136-145)
--- NOTE | 2022-03-30 08:32 | DCINST_ITS ---
Discharge Instructions Diet Discharge Diet: Low fat / Low cholesterol Activity Discharge Activity: May Drive (x 48 hours), May Shower (Todayt) and May Take a Tub Bath (in 7 days) May resume sexual activity in: 1-2 weeks Weight Bearing Status: - (Avoid heavy exertional activity x 7 days then resume normal activity as tolerated) Dressing / Incision Call your doctor if your incision/area has: Continuous Slow Oozing, Sudden Increased Bleeding, Increased Pain/ Swelling, Increased Redness, Foul Smelling Discharge and Swelling at the incision site Call your doctor if you observe: Fever of 101 or Higher, Shortness of breath, Fainting spells, Swelling in the ankles, Chest pain and Increased palpitations (irregular heartbeat) Remove Dressing in: 1 day Cleanse incision/area with: Soap & Water Follow Up Care Please Follow Up With: Brady Escalera MD Test Results: Test results from this visit will be discussed in further detail at your follow- up appointment, if applicable. Discharge Plan Admission Admit Date/Time: 03/29/22 12:45 Attending Provider: Brady Escalera Primary Care Provider: Pedro Gonzalez Discharge Orders/Prescriptions Prescriptions: Continued vitamin E 200 unit capsule 200 unit PO DAILY clopidogrel 75 mg tablet 75 mg PO Q OTHER DAY aspirin 81 mg tablet,chewable 81 mg PO Q OTHER DAY tamsulosin [Flomax] 0.4 mg capsule 0.4 mg PO QHS Qty: 30 0RF furosemide [Lasix] 40 mg tablet 80 mg PO .COMPLEX Qty: 180 3RF Rx Instructions: 80 mg orally per day; metoprolol succinate 25 mg tablet extended release 24 hr See Rx Instructions .ROUTE .COMPLEX Qty: 90 3RF Dose Instruction: TAKE ONE TABLET BY MOUTH EVERY DAY Rx Instructions: TAKE ONE TABLET BY MOUTH EVERY DAY Referrals / Follow Up: Brady Escalera MD [Med Staff - Active Staff] - Pedro Gonzalez MD [Primary Care Provider] - Disposition Disposition (needs filled in before D/C Order can be placed): Home, Self Care
--- NOTE | 2022-03-30 08:38 | DS.PCM_ITS ---
Providers Date of Admission: 03/29/22 Date of Discharge: 03/30/22 Primary Care Physician: Pedro Gonzalez MD Reason For Visit: ABN STRESS TEST, CAD, CABG, DYSPNEA, STENT CORONAR Diagnosis Discharge Diagnosis (1) Abnormal stress test: Status: Acute Code(s): R94.39 - Abnormal result of other cardiovascular function study (2) CAD (coronary artery disease): Status: Acute Code(s): I25.10 - Atherosclerotic heart disease of [place] coronary artery without angina pectoris (3) Presence of stent in coronary artery: Status: Chronic Code(s): Z95.5 - Presence of coronary angioplasty implant and graft (4) Presence of coronary artery bypass graft stent: Status: Acute Code(s): Z95.5 - Presence of coronary angioplasty implant and graft; Z95.1 - Presence of aortocoronary bypass graft (5) History of aortic valve replacement with bioprosthetic valve: Status: Chronic Code(s): Z95.3 - Presence of xenogenic heart valve (6) Chronic systolic (congestive) heart failure: Status: Chronic Code(s): I50.22 - Chronic systolic (congestive) heart failure (7) Hyperlipidemia: Status: Chronic Code(s): E78.5 - Hyperlipidemia, unspecified Qualifiers: Hyperlipidemia type: mixed hyperlipidemia Qualified Code(s): E78.2 - Mixed hyperlipidemia Medications at Discharge Home Medications vitamin E 200 unit capsule 200 unit PO DAILY 09/14/20 aspirin 81 mg chewable tablet 81 mg PO Q OTHER DAY 09/10/21 clopidogrel 75 mg tablet 75 mg PO Q OTHER DAY 09/10/21 tamsulosin 0.4 mg capsule (Flomax) 0.4 mg PO QHS #30 caps 01/27/22 furosemide 40 mg tablet (Lasix) 80 mg PO .COMPLEX this is a dose increase as of today #180 tabs 02/09/22 metoprolol succinate 25 mg tablet,extended release 24 hr See Rx Instructions .Route .COMPLEX #90 tabs 02/15/22 Hospital Course Operations None Procedures Cardiac catheterization and - (cardiac intervention: PCI/STENT) Summary of Care Provided Minutes Spent on Discharge: 45 Physical Exam Const alert, oriented x3 and no apparent distress General Appearance: cooperative, comfortable, well kempt and well developed HEENT normocephalic, head/scalp atraumatic and hearing grossly normal bilaterally Eyes PERRL, EOMs intact bilaterally, conjunctivae normal and no scleral icterus Neck full ROM, supple and no JVD Chest Chest: midline sternotomy incision Resp normal respiratory effort Effort and Inspection: symmetric chest movement Auscultation: clear to auscultation bilaterally Cardio regular rate, regular rhythm, S1 normal heart sound and S2 normal heart sound GI normal to inspection, nondistended, normoactive bowel sounds, soft to palpation and non-tender Extremity no pedal edema Peripheral Pulses: Yes femoral pulses present right 2+ and other (No bruit: No hematoma) Neuro oriented x3, moves all extremities, no focal motor deficits and no sensory deficits noted Psych mental status grossly normal Weight / BMI Weight Weight: 190 lb 7.67 oz Body Mass Index (BMI) 31.6 ABG / Lab / Microbiology Data Result Diagrams: 03/30/22 05:51 03/30/22 05:51 Laboratory: Laboratory Results - last 24 hr 03/30/22 05:51: WBC 7.3, RBC 4.28 L, Hgb 12.7 L, Hct 38.7 L, MCV 90.4, MCH 29.7, MCHC 32.8, RDW Std Deviation 47.0 H, RDW Coeff of [place] 14.2, Plt Count 133 L, MPV 10.6, Immature Gran % (Auto) 0.300, Neut % (Auto) 67.9, Lymph % (Auto) 21.2, Dunn % (Auto) 9.2, Eos % (Auto) 1.1, Baso % (Auto) 0.3, Absolute Neuts (auto) 4.9, Absolute Lymphs (auto) 1.54, Nucleated RBC % 0 03/30/22 05:51: Sodium 138, Potassium 3.8, Chloride 106, Carbon Dioxide 26.0, Anion Gap 6, BUN 19 H, Creatinine 1.01, Estim Creat Clear Calc 49.05, Est GFR (MDRD) Af Amer 91, Est GFR (MDRD) Non-Af 75, BUN/Creatinine Ratio 18.8, Glucose 107 H, Calcium 8.2 L, Total Bilirubin 0.60, AST 27, ALT 27, Alkaline Phosphatase 86, Total Protein 6.5, Albumin 3.0 L, Globulin 3.5, Albumin/Globulin Ratio 0.9 D/C Instructions Discharge Diet: Low fat / Low cholesterol May resume sexual activity in: 1-2 weeks Weight Bearing Status: - (Avoid heavy exertional activity x 7 days then resume normal activity as tolerated) Call your doctor if your incision/area has: Continuous Slow Oozing, Sudden Increased Bleeding, Increased Pain/ Swelling, Increased Redness, Foul Smelling Discharge and Swelling at the incision site Call your doctor if you observe: Fever of 101 or Higher, Shortness of breath, Fainting spells, Swelling in the ankles, Chest pain and Increased palpitations (irregular heartbeat) Cleanse incision/area with: Soap & Water Please Follow Up With: Brady Escalera MD Meaningful Use Info Meaningful Use Diagnoses (Choose all that apply): None applicable CHF Reason SONIA/ARB not ordered?: Hypotension Ischemic Stroke Reason Statin not ordered: Drug Intolerance Discharge Plan Admission Admit Date/Time: 03/29/22 12:45 Primary Reason for Your Visit: Abnormal stress test: Cardiac catheterization Attending Provider: Brady Escalera Primary Care Provider: Pedro Gonzalez Discharge Orders/Prescriptions Prescriptions: Continued vitamin E 200 unit capsule 200 unit PO DAILY clopidogrel 75 mg tablet 75 mg PO Q OTHER DAY aspirin 81 mg tablet,chewable 81 mg PO Q OTHER DAY tamsulosin [Flomax] 0.4 mg capsule 0.4 mg PO QHS Qty: 30 0RF furosemide [Lasix] 40 mg tablet 80 mg PO .COMPLEX Qty: 180 3RF Rx Instructions: 80 mg orally per day; metoprolol succinate 25 mg tablet extended release 24 hr See Rx Instructions .ROUTE .COMPLEX Qty: 90 3RF Dose Instruction: TAKE ONE TABLET BY MOUTH EVERY DAY Rx Instructions: TAKE ONE TABLET BY MOUTH EVERY DAY Referrals / Follow Up: Brady Escalera MD [Med Staff - Active Staff] - Pedro Gonzalez MD [Primary Care Provider] - Disposition Disposition (needs filled in before D/C Order can be placed): Home, Self Care
[2022-03-30] MEDS: Aspirin E.C. 81 MG Tablet PO (08:52)
--- NOTE | 2022-03-30 09:33 | PHA.DC.MR ---
Pharmacy Service has performed discharge medication reconciliation for this patient. The patient's discharge medication list was reviewed for discrepancies and discrepancies were resolved. Home Medications vitamin E 200 unit capsule 200 unit PO DAILY 09/14/20 aspirin 81 mg chewable tablet 81 mg PO Q OTHER DAY 09/10/21 clopidogrel 75 mg tablet 75 mg PO Q OTHER DAY 09/10/21 tamsulosin 0.4 mg capsule (Flomax) 0.4 mg PO QHS #30 caps 01/27/22 furosemide 40 mg tablet (Lasix) 80 mg PO .COMPLEX this is a dose increase as of today #180 tabs 02/09/22 metoprolol succinate 25 mg tablet,extended release 24 hr See Rx Instructions .Route .COMPLEX #90 tabs 02/15/22
[2022-03-30] MEDS: Furosemide 40 MG Tablet PO (09:56)
[2022-03-30] MEDS: Metoprolol Tartrate 25 MG Tablet PO (09:57)
[2022-03-30] MEDS: Clopidogrel Bisulfate 75 MG Tablet PO (09:57)
--- NOTE | 2022-03-30 10:00 | EKG12_ITS ---
Test Reason : post pci Blood Pressure : / mmHG Vent. Rate : 078 BPM Atrial Rate : 078 BPM P-R Int : 264 ms QRS Dur : 088 ms QT Int : 400 ms P-R-T Axes : 030 002 092 degrees QTc Int : 456 ms Sinus rhythm with sinus arrhythmia with 1st degree A-V block Cannot rule out Inferior infarct , age undetermined Nonspecific T wave abnormality Abnormal ECG Confirmed by OSKAR BROOKS, BRADY ([id number]), medical transcription editor SAMMI LIMA ([id number]) on 03/30/2022 12:53:40 PM Referred By: Brady Schmitt Confirmed By:BRADY SCHMITT MD
== END 2022-03-30 08:43 | disposition home or self-care (01) ==
LOC: CLSP 12:55 → PCU 12:55
PROVIDERS: Internal Medicine Interventional Cardiology; Admitting Provider Internal Medicine Cardiovascular Disease; PCP Family Medicine; Referring Provider Internal Medicine Cardiovascular Disease; Visit Provider Internal Medicine Cardiovascular Disease
DX: I25.810 Atherosclerosis of coronary artery bypass graft(s) without angina pectoris (principal); I27.20 Pulmonary hypertension, unspecified; I50.22 Chronic systolic (congestive) heart failure; R94.39 Abnormal result of other cardiovascular function study; I49.3 Ventricular premature depolarization; E78.2 Mixed hyperlipidemia; Z95.1 Presence of aortocoronary bypass graft; Z79.02 Long term (current) use of antithrombotics/antiplatelets; Z79.82 Long term (current) use of aspirin; Z79.899 Other long term (current) drug therapy; I25.10 Atherosclerotic heart disease of native coronary artery without angina pectoris; R06.09 Other forms of dyspnea; Z95.3 Presence of xenogenic heart valve
CPT/HCPCS: 36415; 80053; 85025; 92937; 93005; 93455; 96360; 96361; 99152; 99153; 99218; C1874; C1887; J7030; J7040; C1725; C1760; C1769; C1894; C9604; G0378; Q9967

== ENCOUNTER → 2022-05-06 | Outpatient (CLI) | payer OTHER, SELFPAY ==
[2022-05-06 12:04] LABS: Anion Gap 8 (5-15); BUN 28 mg/dL (7-18); BUN/Creat Ratio 23.7 RATIO (10-20); Calcium,Total 9.4 mg/dL (8.5-10.1); Chloride 104 mmol/L (98-107); Creatinine, Serum 1.18 mg/dL (0.70-1.30); EST Glomerular Filtration Rate 63 mL/min (>60); Est Glom Filt Rate - Afr Amer 76 mL/min (>60); Glucose 99 mg/dL (74-106); Sodium Level 141 mmol/L (136-145)
== END | disposition home or self-care (01) ==
LOC: LAB 11:25
PROVIDERS: PCP Family Medicine; Referring Provider Nurse Practitioner Gerontology; Visit Provider Nurse Practitioner Gerontology
DX: I50.20 Unspecified systolic (congestive) heart failure (principal)
CPT/HCPCS: 36415; 80048

== ENCOUNTER → 2022-08-10 | Outpatient (CLI) | payer SELFPAY, OTHER ==
--- NOTE | 2022-08-10 07:34 | ECHOL_ITS ---
Reason For Study: CMP Procedure This was a limited 2D transthoracic echocardiogram. Limited views were obtained. Exam performed in department. Left Ventricle Borderline enlarged left ventricle. Mild segmental systolic dysfunction (see wall motion). The estimated ejection fraction is 45 %. Unable to assess diastolic dysfunction. Posterior-Basal: Hypokinetic. Infero-Basal: Akinetic. Basal inferoseptal: Hypokinetic. Mid-Posterior: Hypokinetic. Mid-Inferior: Hypokinetic. Mid-inferoseptal : Hypokinetic. Mid-anteroseptal : Hypokinetic. Lateral [place] : Hypokinetic. Septal [place] : Hypokinetic. Right Ventricle Normal RV size. Normal systolic function. Atria The left atrium is moderately enlarged. The right atrium is mildly enlarged. Mitral Valve There is no mitral annular calcification. The mitral valve chordae are thickened and/or calcified. The mitral papillary muscle appears thickened and/or calcified. Mild papillary muscle dysfunction of the mitral valve. Tricuspid Valve Normal tricuspid valve. Aortic Valve Stable appearing bioprosthetic aortic valve apparatus. Pulmonic Valve The pulmonic valve is not well visualized. Great Vessels Normal sized aortic root. Pericardium/Pleural No pericardial effusion. MMode/2D Measurements & Calculations LVIDd: 5.3 cm IVSd: 1.5 cm Ao root diam: 2.9 cm LVIDs: 4.8 cm LVPWd: 0.91 cm FS: 9.9 % LAV(MOD-bp): 66.6 ml LVAd ap4: 38.9 cm2 LVAd ap2: 41.8 cm2 LAV(MOD-bp) Indexed: 35.1 ml/m2 LVLd ap4: 7.7 cm LVLd ap2: 8.3 cm LAV(MOD-sp2): 75.2 ml EDV(MOD-sp4): 157.4 ml EDV(MOD-sp2): 173.3 ml LAV(MOD-sp4): 53.1 ml EDV(sp4-el): 165.9 ml EDV(sp2-el): 178.6 ml LVAs ap4: 28.3 cm2 LVAs ap2: 27.7 cm2 LVLs ap4: 7.3 cm LVLs ap2: 6.9 cm ESV(MOD-sp4): 90.7 ml ESV(MOD-sp2): 91.4 ml ESV(sp4-el): 92.6 ml ESV(sp2-el): 94.3 ml EF(MOD-sp4): 42.3 % EF(MOD-sp2): 47.3 % EF(sp4-el): 44.2 % SV(MOD-sp4): 66.7 ml SV(MOD-sp2): 81.9 ml SV(sp4-el): 73.2 ml LA dimension(2D): 4.8 cm LA A4 area: 18.7 cm2 RA A4 area: 21.5 cm2 ECHO/Echo, Limited Study Interpretation Summary Limited views were obtained. Borderline enlarged left ventricle Mild segmental systolic dysfunction (see wall motion). The estimated ejection fraction is 45 %. The left atrium is moderately enlarged. The right atrium is mildly enlarged. The mitral valve chordae are thickened and/or calcified. The mitral papillary muscle appears thickened and/or calcified. Mild papillary muscle dysfunction of the mitral valve. Stable appearing bioprosthetic aortic valve apparatus. Unable to assess diastolic dysfunction. Ordering Physician: Shereen Hurst Referring Physician: Shereen Hurst Performed By: Anabelle Painting RCS
== END | disposition home or self-care (01) ==
LOC: CVS 07:33
PROVIDERS: PCP Family Medicine; Referring Provider Nurse Practitioner Gerontology; Visit Provider Nurse Practitioner Gerontology
DX: I50.20 Unspecified systolic (congestive) heart failure (principal); I51.7 Cardiomegaly; M99.09 Segmental and somatic dysfunction of abdomen and other regions
CPT/HCPCS: 93308

== ENCOUNTER → 2023-01-16 | Outpatient (CLI) | payer SELFPAY ==
[2023-01-16 12:36] LABS: Anion Gap 0 (5-15); BUN 32 mg/dL (7-18); BUN/Creat Ratio 27.8 RATIO (10-20); Calcium,Total 8.8 mg/dL (8.5-10.1); Chloride 109 mmol/L (98-107); Creatinine, Serum 1.15 mg/dL (0.70-1.30); EST Glomerular Filtration Rate 65 mL/min (>60); Est Glom Filt Rate - Afr Amer 78 mL/min (>60); Glucose 90 mg/dL (74-106); Magnesium 2.4 mg/dL (1.6-2.6); Sodium Level 133 mmol/L (136-145)
== END | disposition home or self-care (01) ==
PROVIDERS: PCP Family Medicine; Visit Provider Family Medicine
DX: I10 Essential (primary) hypertension (principal)
CPT/HCPCS: 36415; 80048; 83735

== ENCOUNTER → 2024-08-09 | Outpatient (CLI) | payer SELFPAY ==
[2024-08-09 11:07] LABS: Absolute Lymphocyte Count 2.09 X10^3/uL (0.83-4.51); Absolute Neutrophil Count 4.7 X10^3/uL (2.0-7.7); Basophil# 0.03 X10^3/uL; Basophil% 0.4 % (0-1); Eosinophil# 0.19 X10^3/uL; Eosinophils% 2.5 % (0-5); Hematocrit 36.5 % (40-54); Hemoglobin 11.8 g/dL (13.0-16.5); Lymphocyte # 2.09 X10^3/ul (0.83-4.51); Lymphocyte % 27.5 % (19-41); Mean Corp Hgb Conc 32.3 g/dL (32-36); Mean Corpuscular Hgb 28.9 pg (27.0-32.0); Mean Corpuscular Volume 89.5 fL (80-94); Mean Platelet Vol. 10.5 fl (6.2-12.0); Monocyte% 7.9 % (0-10); NRBC Flagged by Analyzer 0 % (0-5); Neutrophil # 4.66 X10^3/uL (2.7-7.7); Neutrophil % 61.4 % (47-70); Platelet Count 142 K/mm3 (150-450); RBC Distribution Width CV 14.6 % (11.6-14.6); RBC Distribution Width SD 47.4 fl (35.1-43.9); Red Blood Count 4.08 M/mm3 (4.6-6.2); White Blood Count 7.6 K/mm3 (4.4-11.0)
[2024-08-09 11:43] LABS: BNP,B-Type NATRIURETIC PEPTIDE 786.9 pg/mL (0-100)
[2024-08-09 11:51] LABS: Hemoglobin A1c 5.7 % (3.8-5.6)
[2024-08-09 11:57] LABS: ALB/GLOB Ratio 0.9 RATIO (0.9-2.4); AST(SGOT) 19 U/L (15-37); Alanine Aminotransfer ALT/SGPT 33 U/L (16-61); Albumin, Serum 3.4 g/dL (3.2-5.0); Alkaline Phosphatase 93 U/L (45-117); Anion Gap 7 (5-15); BUN 32 mg/dL (7-18); BUN/Creat Ratio 24.4 RATIO (10-20); Calcium,Total 8.7 mg/dL (8.5-10.1); Chloride 104 mmol/L (98-107); Cholesterol 279 mg/dL (200); Creatinine, Serum 1.31 mg/dL (0.70-1.30); EST Glomerular Filtration Rate 55 mL/min (>60); Est Glom Filt Rate - Afr Amer 67 mL/min (>60); Globulin 3.7 g/dL (2.2-4.2); Glucose 98 mg/dL (74-106); High Density Lipoprotein 68 mg/dL; Magnesium 2.3 mg/dL (1.6-2.6); Potassium 4.2 mmol/L (3.5-5.1); Protein, Total 7.1 g/dL (6.4-8.2); Sodium Level 136 mmol/L (136-145); T4 Free Direct 1.04 ng/dL (0.76-1.46); Triglycerides 84 mg/dL; Very Low Density Lipoprotein 17 mg/dL (5-40)
== END | disposition home or self-care (01) ==
PROVIDERS: PCP Family Medicine; Referring Provider Nurse Practitioner Family; Visit Provider Nurse Practitioner Family
DX: I50.20 Unspecified systolic (congestive) heart failure (principal); R06.09 Other forms of dyspnea; E78.5 Hyperlipidemia, unspecified; Z95.3 Presence of xenogenic heart valve; Z95.1 Presence of aortocoronary bypass graft; Z95.5 Presence of coronary angioplasty implant and graft
CPT/HCPCS: 36415; 80053; 80061; 83036; 83735; 83880; 84439; 84443; 85025

== ENCOUNTER → 2024-11-04 | Outpatient (CLI) | payer SELFPAY ==
[2024-11-04 14:49] LABS: Anion Gap 14 (5-15); BUN 33 mg/dL (4-19); BUN/Creat Ratio 24.2 RATIO (10-20); Calcium,Total 9.3 mg/dL (7.6-11.0); Carbon Dioxide 23.4 mmol/L (21.0-32.0); Chloride 96 mmol/L (98-108); Creatinine, Serum 1.35 mg/dL (0.70-1.20); EST Glomerular Filtration Rate 52 (>60); Glucose 95 mg/dL (70-99); Potassium 4.1 mmol/L (3.3-5.1); Pro- Brain NATRIURETIC PEPTIDE 5346 pg/mL (<=1800); Sodium Level 134 mmol/L (133-145)
== END | disposition home or self-care (01) ==
PROVIDERS: PCP Family Medicine; Referring Provider Nurse Practitioner Family; Visit Provider Nurse Practitioner Family
DX: I50.30 Unspecified diastolic (congestive) heart failure (principal)
CPT/HCPCS: 36415; 80048; 83880

== ENCOUNTER → 2024-11-18 | Outpatient (CLI) | payer OTHER, SELFPAY ==
[2024-11-18 11:32] LABS: Anion Gap 13 (5-15); BUN 41 mg/dL (4-19); BUN/Creat Ratio 27.3 RATIO (10-20); Calcium,Total 9.3 mg/dL (7.6-11.0); Chloride 99 mmol/L (98-108); EST Glomerular Filtration Rate 46 (>60); Glucose 105 mg/dL (70-99); Potassium 4.4 mmol/L (3.3-5.1); Pro- Brain NATRIURETIC PEPTIDE 6905 pg/mL (<=1800); Sodium Level 137 mmol/L (133-145)
== END | disposition home or self-care (01) ==
LOC: MTLAB 08:04
PROVIDERS: PCP Family Medicine; Referring Provider Nurse Practitioner Family; Visit Provider Nurse Practitioner Family
DX: I50.30 Unspecified diastolic (congestive) heart failure (principal)
CPT/HCPCS: 36415; 80048; 83880

== ENCOUNTER 2024-12-12 07:29 | Inpatient (IN) | payer OTHER, SELFPAY ==
[2024-12-12] VITALS (10 sets, daily range): BP systolic 91–160; BP diastolic 54–85; PULSE 65–82; RESP 15–18; TEMP 36.2–36.8; O2SAT 97–100; BMI 29.4; BMI 29.3
--- NOTE | 2024-12-12 07:54 | EKG12_ITS ---
Test Reason : sob Blood Pressure : */* mmHG Vent. Rate : 75 BPM Atrial Rate : 75 BPM P-R Int : 270 ms QRS Dur : 96 ms QT Int : 402 ms P-R-T Axes : 24 2 135 degrees QTcB Int : 448 ms Sinus rhythm with 1st degree A-V block with Fusion complexes and Premature atrial complexes with Aberrant conduction Possible Inferior infarct , age undetermined T wave abnormality, consider lateral ischemia Abnormal ECG Confirmed by CARLA BROOKS, CARLOS ([id number]), scientific publications editor SAMMI LIMA ([id number]) on 12/12/2024 1:30:33 PM Referred By: Confirmed By: CARLOS AGUIRRE MD
--- NOTE | 2024-12-12 07:54 | ED.VIS.DYS ---
HPI History of Present Illness Chief Complaint: Shortness of Breath Narrative Narrative: 84-year-old male past medical history of congestive heart failure, coronary artery disease, on Lasix presents with increasing shortness of breath. He relates history that for quite some time, he has had problems with shortness of breath. He had open heart surgery and is on Lasix and sees [facility]. He denies any weight gain or leg swelling but states that over the last few days to weeks he has had increasing dyspnea on exertion. He has to rest even after taking a shower. He denies any fevers or chills, no cough. He states he saw his primary care provider who put him on sildenafil to help with his lung problems. He states that he is getting frustrated because he is having increasing dyspnea on exertion. [facility] Medical History Daytime hypersomnolence Epistaxis Chronic systolic (congestive) heart failure Nonrheumatic aortic (valve) stenosis Abnormal stress test Dyspnea on exertion Hyperlipidemia Atherosclerotic heart disease of [place] coronary artery without angina pectoris Chest pain, unspecified Atherosclerosis of coronary artery bypass graft without angina pectoris (~03/29/22) Home Medications ?Medication ?Instructions ?Recorded ?Last Taken ?Type vitamin E 200 unit capsule 200 unit PO DAILY 09/14/20 Unknown History aspirin 81 mg chewable tablet 81 mg PO Q OTHER DAY 09/10/21 03/29/22 History tamsulosin 0.4 mg capsule (Flomax) 0.4 mg PO QHS #30 caps 01/27/22 Unknown Rx lisinopril 5 mg tablet 2.5 mg PO DAILY 07/14/23 Unknown History furosemide 40 mg tablet 40 mg PO DAILY 08/09/24 Unknown History clopidogrel 75 mg tablet 75 mg PO Q OTHER DAY #45 tabs 11/12/24 Unknown Rx sildenafil 25 mg tablet 25 mg PO TID 12/12/24 Unknown History Allergy/AdvReac Type Severity Reaction Status Date / Time No Known Allergies Allergy Verified 12/12/24 07:29 Family History Father Myocardial infarction CVA (cerebral vascular accident) Mother CHF (congestive heart failure) Brother CAD (coronary artery disease) Cancer leukemia Surgical History Presence of coronary artery bypass graft stent (~03/29/22) History of arthroplasty of knee H/O coronary artery bypass surgery (~01/2002) History of left inguinal hernia repair (~1961) Presence of stent in coronary artery Postsurgical percutaneous transluminal coronary angioplasty (PTCA) status History of aortic valve replacement with bioprosthetic valve (~12/27/17) Social History adopted: No household members: spouse housing: house number of children: 6 current occupational status: employed current occupation: [employer] current occupational exposures/hazards: No pets and animals: Yes (chickens 2 and 1 horse) leisure activities: hunting and fishing history of recent travel: No Smoking Status: Never smoker alcohol intake: never substance use type: does not use caffeine: No what type of physical activity do you participate in: walking frequency: 5-6 times per week duration: 30-45 minutes/day seatbelt use: sometimes do you feel safe at home: Yes ROS ROS ED ROS Narrative Constitutional: No fever, no chills. HEENT: No sore throat. No neck pain. No rhinorrhea. Cardiovascular: No chest pain. No palpitations. No pedal edema. Respiratory: No cough, increasing dyspnea on exertion and shortness of breath. Abdominal: No abdominal pain. No nausea. No vomiting. Musculoskeletal: No myalgias. No arthralgias. Neurologic: No headaches. No dizziness. No lightheadedness. EXAM Physical Exam Narrative Exam Narrative: Afebrile. Vital signs noted. SPO2 100% on room air. Nontoxic-appearing. Cardiovascular examination reveals a regular rate and rhythm. Lungs are clear to auscultation bilaterally, moving a good amount of air. Abdomen is soft, nontender without guarding or rebound. Positive bowel sounds. Neurological examination nonfocal, nonlateralizing. No pedal edema. Const Vital Signs: 12/12/24 07:29 12/12/24 07:41 12/12/24 08:01 Temperature 98.1 F Temperature Source Oral Pulse Rate 71 Respiratory Rate 18 Respiratory Effort Short of Breath Blood Pressure 108/71 Blood Pressure Mean 83 Pulse Ox 99 Oxygen Delivery Method Room Air Room Air 12/12/24 08:29 12/12/24 09:14 12/12/24 09:29 Temperature 97.4 F L Temperature Source Pulse Rate 71 75 72 Respiratory Rate 15 16 17 Respiratory Effort Blood Pressure 96/55 L 108/59 L Blood Pressure Mean 68 75 Pulse Ox 97 98 99 Oxygen Delivery Method MDM MDM MDM Narrative Medical decision making narrative: Differential diagnosis includes but not limited to pneumothorax versus pneumonia versus CHF exacerbation versus undiagnosed COPD. I reviewed his prior visits and he has history of obstructive sleep apnea and heart failure with reduced ejection fraction. In review of his last echocardiogram it was in 2021, approximately 3 years ago, where he had an ejection fraction of 45%. EKG was obtained and interpreted by myself independently as normal sinus rhythm at 75 bpm with PVCs, no acute ST changes. No significant change from previous dated March 30, 2022. I reviewed his laboratory work and he has a normal white count of 6.9 with hemoglobin stable at 11.0, hematocrit 32.1, platelet count low at 138. I reviewed his prior laboratory work and he has had thrombocytopenia in the past. Review of his BMP shows BUN of 54 and creatinine 1.66 with history of chronic kidney disease. BNP is elevated at 8635, when compared to prior, this is the highest it has been, but it has been 6000 in the past. Chest x-ray interpreted by myself independently shows perihilar fullness bilaterally but no evidence of a gross consolidation or pneumothorax. I reviewed the radiology report which confirms my independent interpretation. Patient was ambulated on a pulse ox. He did have significant drop and became hypoxic as well as tachycardic with heart rate in the 120's, he became tachypneic as well. Patient administered Lasix 40 mg intravenously and discussed with Dr. Cortes for admission to the PCU. Disposition is admit in stable condition. History & Record Review Discussion w/independent historian: Patient and Family Lab Data Attestation: I reviewed the patient's lab results. Labs: Laboratory Results - last 24 hr 12/12/24 07:40 WBC 6.9 RBC 3.62 L Hgb 11.0 L Hct 32.1 L MCV 88.7 MCH 30.4 MCHC 34.3 RDW Std Deviation 48.0 H RDW Coeff of [place] 14.8 H Plt Count 138 L MPV 10.8 Immature Gran % (Auto) 0.300 Neut % (Auto) 47.3 Lymph % (Auto) 36.4 [place] % (Auto) 10.2 H Eos % (Auto) 5.4 H Baso % (Auto) 0.4 Absolute Neuts (auto) 3.3 Absolute Lymphs (auto) 2.50 Nucleated RBC % 0 Sodium 133 Potassium 4.3 Chloride 100 Carbon Dioxide 19.4 L Anion Gap 14 BUN 54 H Creatinine 1.66 H Estim Creat Clear Calc 33.42 L Est GFR (MDRD) Non-Af 40 L BUN/Creatinine Ratio 32.4 H Glucose 100 H Calcium 9.0 NT pro BNP II 8635 H Radiography Chest X-Ray - ED: 1 View, Read by ED Physician, Read by Radiologist and CHF Diagnostic Testing: Clinical Impression(s) from Imaging Studies Chest X-Ray 12/12/24 08:00 IMPRESSION: Lung volumes appear increased. There are bilateral perihilar infiltrates with no focal consolidation. Reading Location: [facility] Management Discussion w/another healthcare provider: Hospitalist (Dr. Cortes) Discharge Plan Dx/Rx/DC Orders Clinical Impression: CHF exacerbation, Dyspnea on exertion, Hypoxia, SOB (shortness of breath) Disposition Disposition: Acute Care Hospital [facility]
--- NOTE | 2024-12-12 08:00 | RAD_ITS ---
PROCEDURE: CHEST PA AND LATERAL 12/12/2024 REASON FOR EXAM: SHORTNESS OF BREATH TECHNIQUE: Frontal and lateral views of the chest. COMPARISON: January 27, 2022 FINDINGS: Sternotomy wires, a cardiac stent, and vascular clips are noted, unchanged. Heart size is upper normal. Central vascularity appears within normal limits. Lung volumes appear increased. There are bilateral perihilar infiltrates with no focal consolidation. There is no pneumothorax or effusion. There is no visible acute bony abnormality. Aortic calcifications are noted. RAD/Chest PA and Lateral IMPRESSION: Lung volumes appear increased. There are bilateral perihilar infiltrates with no focal consolidation. Reading Location: [facility]
[2024-12-12 08:08] LABS: Absolute Neutrophil Count 3.3 X10^3/uL (2.0-7.7); Basophil# 0.03 X10^3/uL; Basophil% 0.4 % (0-1); Eosinophil# 0.37 X10^3/uL; Eosinophils% 5.4 % (0-5); Hematocrit 32.1 % (40-54); Lymphocyte % 36.4 % (19-41); Mean Corp Hgb Conc 34.3 g/dL (32-36); Mean Corpuscular Hgb 30.4 pg (27.0-32.0); Mean Corpuscular Volume 88.7 fL (80-94); Mean Platelet Vol. 10.8 fl (6.2-12.0); Monocyte% 10.2 % (0-10); NRBC Flagged by Analyzer 0 % (0-5); Neutrophil # 3.25 X10^3/uL (2.7-7.7); Neutrophil % 47.3 % (47-70); Platelet Count 138 K/mm3 (150-450); RBC Distribution Width CV 14.8 % (11.6-14.6); Red Blood Count 3.62 M/mm3 (4.6-6.2); White Blood Count 6.9 K/mm3 (4.4-11.0)
[2024-12-12 08:45] LABS: Pro- Brain NATRIURETIC PEPTIDE 8635 pg/mL (<=1800)
[2024-12-12 09:00] LABS: Anion Gap 14 (5-15); BUN 54 mg/dL (4-19); BUN/Creat Ratio 32.4 RATIO (10-20); Carbon Dioxide 19.4 mmol/L (21.0-32.0); Chloride 100 mmol/L (98-108); Creatinine, Serum 1.66 mg/dL (0.70-1.20); EST Glomerular Filtration Rate 40 (>60); Estimated Creatinine Clearance 33.42 ml/min (50-250); Glucose 100 mg/dL (70-99); Potassium 4.3 mmol/L (3.3-5.1); Sodium Level 133 mmol/L (133-145)
--- NOTE | 2024-12-12 09:24 | PCM.HP.STD ---
[facility] - General General Date of Admission: 12/12/24 Date of Service: 12/12/24 Chief Complaint: Shortness of breath HPI Narrative JOSELUIS VARGAS, is a 84 M with history of previous CABG, valvular heart disease with previous TAVR who presented with progressive shortness of breath. Patient symptoms started 2 weeks prior to his admission and has gotten progressively worse. Patient however denied any weight gain no bipedal edema. Patient however admitted to exertional dyspnea with minimal activities including taking his shower. In view of worsening symptoms patient elected to present to the emergency department. Chest x-ray obtained on admission demonstrated bilateral perihilar infiltrates with no focal consolidation. Patient was also found to have markedly elevated proBNP. An assessment of acute congestive heart failure made admitted to monitored bed for further management [facility] Medical History Daytime hypersomnolence Epistaxis Chronic systolic (congestive) heart failure Nonrheumatic aortic (valve) stenosis Abnormal stress test Dyspnea on exertion Hyperlipidemia Atherosclerotic heart disease of [place] coronary artery without angina pectoris Chest pain, unspecified Atherosclerosis of coronary artery bypass graft without angina pectoris (~03/29/22) Home Medications ?Medication ?Instructions ?Recorded ?Last Taken ?Type vitamin E 200 unit capsule 200 unit PO DAILY 09/14/20 Unknown History aspirin 81 mg chewable tablet 81 mg PO Q OTHER DAY 09/10/21 03/29/22 History tamsulosin 0.4 mg capsule (Flomax) 0.4 mg PO QHS #30 caps 01/27/22 Unknown Rx lisinopril 5 mg tablet 2.5 mg PO DAILY 07/14/23 Unknown History furosemide 40 mg tablet 40 mg PO DAILY 08/09/24 Unknown History clopidogrel 75 mg tablet 75 mg PO Q OTHER DAY #45 tabs 11/12/24 Unknown Rx sildenafil 25 mg tablet 25 mg PO TID 12/12/24 Unknown History Allergy/AdvReac Type Severity Reaction Status Date / Time No Known Allergies Allergy Verified 12/12/24 07:29 Family History Father Myocardial infarction CVA (cerebral vascular accident) Mother CHF (congestive heart failure) Brother CAD (coronary artery disease) Cancer leukemia Surgical History Presence of coronary artery bypass graft stent (~03/29/22) History of arthroplasty of knee H/O coronary artery bypass surgery (~01/2002) History of left inguinal hernia repair (~1961) Presence of stent in coronary artery Postsurgical percutaneous transluminal coronary angioplasty (PTCA) status History of aortic valve replacement with bioprosthetic valve (~12/27/17) Social History adopted: No household members: spouse housing: house number of children: 6 current occupational status: employed current occupation: [employer] current occupational exposures/hazards: No pets and animals: Yes (chickens 2 and 1 horse) leisure activities: hunting and fishing history of recent travel: No Smoking Status: Never smoker alcohol intake: never substance use type: does not use caffeine: No what type of physical activity do you participate in: walking frequency: 5-6 times per week duration: 30-45 minutes/day seatbelt use: sometimes do you feel safe at home: Yes ROS ROS Narrative GENERAL: denies fever, chills, night sweats, weight loss, anorexia HEENT: denies headache, sinus congestion, or drainage, dysphagia RESPIRATORY: shortness of breath, dyspnea on exertion CARDIAC: denies chest pain, palpitations, orthopnea, PND GASTROINTESTINAL: denies abdominal pain, nausea, vomiting, melena, GENITOURINARY: denies dysuria, urgency, frequency, heamaturia EXTREMITY: denies swelling MUSCULOSKELETAL: denies current joint pain or tenderness NEUROLOGIC: denies focal numbness, weakness, tingling HEMATOLOGIC: denies easy bruising and/or hemorrhage INTEGUMENT: denies rashes PSYCHIATRIC: denies suicidal or homicidal ideation Vital Signs Vital Signs Vital Signs: 12/12/24 07:29 12/12/24 07:41 12/12/24 08:01 Temperature 98.1 F Temperature Source Oral Pulse Rate 71 Respiratory Rate 18 Respiratory Effort Short of Breath Blood Pressure 108/71 Blood Pressure Mean 83 Pulse Ox 99 Oxygen Delivery Method Room Air Room Air 12/12/24 08:29 12/12/24 09:14 Temperature Temperature Source Pulse Rate 71 75 Respiratory Rate 15 16 Respiratory Effort Blood Pressure 96/55 L Blood Pressure Mean 68 Pulse Ox 97 98 Oxygen Delivery Method Weight Weight: 82.599 kg Body Mass Index (BMI) 29.4 Physical Exam Narrative GENERAL: cooperative HEENT: Atraumatic; normocephalic EYES; Anicteric, Normal Conjunctiva NECK; supple, normal thyroid, RESPIRATORY: Diminished to auscultation CARDIOVASCULAR: Regular S1 S2, systolic murmur GI: soft, normoactive bowel sounds, : No Renal angle tenderness; EXTREMITIES: No edema, no clubbing, MUSCULOSKELETAL: no muscle wasting NEURO: Awake; no lateralizing signs. SKIN: No Rash PSYCH; Flat affect Results Lab / Micro Data 12/12/24 07:40 12/12/24 07:40 Labs: Laboratory Results - last 24 hr 12/12/24 07:40: WBC 6.9, RBC 3.62 L, Hgb 11.0 L, Hct 32.1 L, MCV 88.7, MCH 30.4, MCHC 34.3, RDW Std Deviation 48.0 H, RDW Coeff of [place] 14.8 H, Plt Count 138 L, MPV 10.8, Immature Gran % (Auto) 0.300, Neut % (Auto) 47.3, Lymph % (Auto) 36.4, [place] % (Auto) 10.2 H, Eos % (Auto) 5.4 H, Baso % (Auto) 0.4, Absolute Neuts (auto) 3.3, Absolute Lymphs (auto) 2.50, Nucleated RBC % 0, Sodium 133, Potassium 4.3, Chloride 100, Carbon Dioxide 19.4 L, Anion Gap 14, BUN 54 H, Creatinine 1.66 H, Estim Creat Clear Calc 33.42 L, Est GFR (MDRD) Non-Af 40 L, BUN/Creatinine Ratio 32.4 H, Glucose 100 H, Calcium 9.0, NT pro BNP II 8635 H Imaging Radiology Impression Chest X-Ray 12/12/24 08:00 IMPRESSION: Lung volumes appear increased. There are bilateral perihilar infiltrates with no focal consolidation. Reading Location: [facility] Assessment & Plan Assessment/Plan (1) CHF exacerbation: PLAN: Plan Patient is an 83-year-old gentleman with history of previous CABG, valvular heart disease with previous TAVR who presented with progressive shortness of breath 1. 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 Patient echo on record obtained in July 2022 was 45%. Patient admitted to monitored bed treatment initiated with strict input and output, daily weight, fluid restriction low-sodium diet as well as diuretic therapy with furosemide. As part of his management patient was placed on supplemental oxygen titrated to keep saturation greater than 90 repeat echo was ordered. Patient blood pressure was relatively on the low side on admission complicating care. 2. Coronary artery disease ? With previous CABG (with ALSTON to LAD at [facility] in 1995 and redo CABG at [facility] in 2001 with SVG to LCX and SVG to RPDA) with subsequent PCI to an ostial, proximal and mid RCA lesion. Patient is on guideline directed medical therapy 3. Valvular heart disease ? With history of aortic valve stenosis status post TAVR. Patient also has known history of mitral valve regurgitation 4. Obstructive sleep apnea ? Consistent use of PAP therapy encouraged 5. Dyslipidemia ?Patient is is not on any statin therapy we will continue with monitoring 6. BPH with lower urinary obstructive symptoms - Patient treated with tamsulosin 7. Anemia ? Secondary to chronic disorder monitoring H&H and transfuse if patient becomes symptomatic or hemoglobin falls below 7 8.Chronic kidney disease stage III ? Patient has experienced progressive worsening of his kidney function. Creatinine was 1.15 on 01/16/2023 was 1.5 on 11/18/2024 and admitting creatinine was 1.6 this. As part of patient's evaluation ordered renal duplex 9. DVT prophylaxis ? Subcu heparin Time spent in the patient's overall evaluation,decision-making process, review of diagnostic data, adjustment of management, discussion with other providers, nursing nursing and ancillary staff involved in patient's care documentation, 78 Minutes Advance planning; did discuss with the patient and family (patient's son as well as who are in the room at the time of my assessment) regarding advanced directives as well as CODE STATUS. Did explain the various scenarios involved ( FULL CODE, DNR CCA, DNR CCA with no intubation, and DNR CC and what each meant) patient elected to be DNR CCA no intubation. Order was placed. Time spent on discussion 18 minutes. Charges/Coding Multi Select Codes Visit Charges Visit Charges: 47001 Init Hosp L3 Hospitalists' Procedures Procedures: 59780 Advncd Care Plan 30 Min
[2024-12-12] MEDS: Furosemide 40 MG/4 ML Vial IV (09:37)
--- NOTE | 2024-12-12 09:57 | ECHOCS_ITS ---
Reason For Study Reason For Study: DYSPNEA/SOB Procedure This was a 2D Doppler, Color Flow transthoracic echocardiogram. The study was technically difficult. Contrast injection was performed. Exam performed portable in patient room. Left Ventricle Mildly dilated left ventricle. Moderate global left ventricular systolic dysfunction. The estimated ejection fraction is 35 %. Stage 1 diastolic dysfunction. Right Ventricle Normal RV size. Normal systolic function. Atria The left atrium is mildly enlarged. Normal right atrium. Mitral Valve Mild mitral annular calcification. Moderate (2+) mitral valve insufficiency. Tricuspid Valve Normal tricuspid valve. Mild to moderate (1-2+) tricuspid valve insufficiency. Pulmonary artery systolic pressure is 54 mmHg. Aortic Valve Stable appearing bioprosthetic aortic valve apparatus. Pulmonic Valve Normal pulmonic valve. Great Vessels Normal sized aortic root. Pericardium/Pleural No pericardial effusion. Medication Diluted definity 2.5ml given slow IV push to enhance endocardial definition. MMode/2D Measurements & Calculations LVIDd: 5.8 cm IVSd: 1.1 cm Ao root diam: 3.2 cm LVIDs: 4.8 cm LVPWd: 0.78 cm RVDd: 3.6 cm FS: 18.2 % asc Aorta Diam: 3.7 cm LAV(MOD-bp): 84.5 ml LVAd ap4: 50.3 cm2 LAV(MOD-bp) Indexed: 44.0 ml/m2 LVLd ap4: 9.9 cm LAV(MOD-sp2): 85.4 ml EDV(MOD-sp4): 213.3 ml LAV(MOD-sp4): 86.4 ml EDV(sp4-el): 217.7 ml LVAs ap4: 41.0 cm2 LVLs ap4: 8.9 cm ESV(MOD-sp4): 157.6 ml ESV(sp4-el): 161.1 ml EF(MOD-sp4): 26.1 % EF(sp4-el): 26.0 % SV(MOD-sp4): 55.7 ml SV(sp4-el): 56.6 ml LA A4 area: 24.8 cm2 SI(MOD-sp4): 29.0 ml/m2 LA dimension(2D): 4.7 cm RA A4 area: 15.6 cm2 TAPSE: 1.8 cm Time Measurements MV dec time: 0.15 sec Doppler Measurements & Calculations MV E max adri: 113.0 cm/sec MV V2 max: 121.2 cm/sec MV P1/2t max adri: 104.8 cm/sec MV A max adri: 82.3 cm/sec MV max P.9 mmHg MV P1/2t: 78.6 msec MV E/A: 1.4 MV V2 mean: 68.0 cm/sec MV dec slope: 390.5 cm/sec2 MV mean P.2 mmHg MV V2 VTI: 31.2 cm MVA(P1/2t): 2.8 cm2 Ao V2 max: 203.1 cm/sec LV V1 max: 85.5 cm/sec MR max adri: 473.8 cm/sec Ao max P.5 mmHg LV V1 max P.9 mmHg MR max P.8 mmHg Ao V2 mean: 151.0 cm/sec LV V1 mean P.8 mmHg MR mean adri: 372.7 cm/sec Ao mean P.9 mmHg LV V1 mean: 63.7 cm/sec MR mean P.1 mmHg Ao V2 VTI: 49.1 cm LV V1 VTI: 20.9 cm MR VTI: 163.8 cm AV (velocity ratio): 0.43 PA V2 max: 99.7 cm/sec TR max adri: 337.3 cm/sec PA V2 mean: 73.5 cm/sec TR max P.5 mmHg ECHO/Echo Complete W/ Contrast Interpretation Summary Stage 1 diastolic dysfunction. Mildly dilated left ventricle. The estimated ejection fraction is 35 %. The left atrium is mildly enlarged. Moderate (2+) mitral valve insufficiency. Mild to moderate (1-2+) tricuspid valve insufficiency. Stable appearing bioprosthetic aortic valve apparatus. Ordering Physician: Gaurang Cortes Referring Physician: Pedro Gonzalez Performed By: Jenny Zhong, IGNACIO, RVT
[2024-12-12] MEDS: Clopidogrel Bisulfate 75 MG Tablet PO (10:26)
[2024-12-12] MEDS: Heparin Injection (Vial) 5,000 UNIT/ML VIAL 5000 UNIT SC ×2 (10:26→21:16)
[2024-12-12] MEDS: Aspirin 81 MG TAB.CHEW PO (10:26)
[2024-12-12] MEDS: Furosemide 20 MG/2 ML VIAL IV ×2 (14:25→21:16)
--- NOTE | 2024-12-12 15:45 | CHAPLAIN ---
Type of Pastoral Visit _x__ Initial Visit ___ Follow-up Visit ___ On-call Visit ___ General Patient Visit ___ Spiritual Assessment ___ Family Conference ___ Bereavement ___ Rapid Response ___ Code Blue ___ Other (describe below) Pastoral Care Referral From _x__ Patient ___ Family ___ Nurse ___ Physician ___ Sagger Filler ___ Lan Analyst ___ Other (describe below) Sacrament/Intervention _x__ Active listening ___ Anointing ___ Religious ___ Bereavement ___ Communion _x__ Melvina exploration ___ _x__ Life review _x__ Prayer ___ Reconciliation ___ Sacrament of Sick ___ Supportive presence ___ Wedding ___ Other (describe below) Pastoral Comments patient, spouse, and youngest son are in the room; pt talks about his current situation and his inability to breathe well and do much activity; pt spouse speaks of his previous heart surgeries and history of health; pt and family are Restorationism and acknowledge that God has been with them through these experiences and that they trust him; pt welcomes presence and prayer; casual conversation also given
[2024-12-12] MEDS: Tamsulosin HCl 0.4 MG Capsule PO (21:16)
[2024-12-13 03:45] VITALS: BP 104/60; PULSE 70; RESP 16; TEMP 36.6; O2SAT 99
[2024-12-13 05:00] VITALS: BMI 28.6
[2024-12-13 05:14] LABS: Absolute Lymphocyte Count 2.14 X10^3/uL (0.83-4.51); Absolute Neutrophil Count 2.8 X10^3/uL (2.0-7.7); Basophil# 0.03 X10^3/uL; Basophil% 0.5 % (0-1); Eosinophil# 0.29 X10^3/uL; Eosinophils% 4.9 % (0-5); Hematocrit 32.2 % (40-54); Hemoglobin 10.8 g/dL (13.0-16.5); Lymphocyte # 2.14 X10^3/ul (0.83-4.51); Lymphocyte % 36.5 % (19-41); Mean Corp Hgb Conc 33.5 g/dL (32-36); Mean Corpuscular Volume 89.4 fL (80-94); Mean Platelet Vol. 10.7 fl (6.2-12.0); Monocyte# 0.64 X10^3/uL; Monocyte% 10.9 % (0-10); NRBC Flagged by Analyzer 0 % (0-5); Neutrophil # 2.76 X10^3/uL (2.7-7.7); Platelet Count 157 K/mm3 (150-450); RBC Distribution Width CV 14.9 % (11.6-14.6); RBC Distribution Width SD 49.4 fl (35.1-43.9); White Blood Count 5.9 K/mm3 (4.4-11.0)
[2024-12-13 05:45] VITALS: BP 110/60; PULSE 68
[2024-12-13] MEDS: Furosemide 20 MG/2 ML VIAL IV (05:46)
[2024-12-13] MEDS: 0.9% Saline Lock 10 ML Syringe IV (05:46)
[2024-12-13 06:10] LABS: Anion Gap 11 (5-15); BUN 51 mg/dL (4-19); BUN/Creat Ratio 32.6 RATIO (10-20); Calcium,Total 9.1 mg/dL (7.6-11.0); Carbon Dioxide 24.2 mmol/L (21.0-32.0); Chloride 101 mmol/L (98-108); Creatinine, Serum 1.56 mg/dL (0.70-1.20); EST Glomerular Filtration Rate 44 (>60); Estimated Creatinine Clearance 35.16 ml/min (50-250); Glucose 100 mg/dL (70-99); Magnesium 2.5 mg/dL (1.5-2.2); Phosphorus 3.6 mg/dL (2.7-4.5); Potassium 4.3 mmol/L (3.3-5.1); Sodium Level 137 mmol/L (133-145)
[2024-12-13 09:07] VITALS: BMI 29.7
[2024-12-13 09:08] VITALS: BP 115/63; PULSE 69; RESP 18; TEMP 36.7; O2SAT 100
[2024-12-13] MEDS: Heparin Injection (Vial) 5,000 UNIT/ML VIAL 5000 UNIT SC (09:11)
--- NOTE | 2024-12-13 10:10 | PCM.DC.SUM ---
Providers Date of Admission: 12/12/24 Date of Discharge: 12/13/24 Primary Care Physician: Dr. Pedro Gonzalez MD Reason For Visit: CHF Diagnosis Discharge Diagnosis (1) CHF exacerbation: Status: Chronic Code(s): I50.9 - Heart failure, unspecified Plan Patient is an 83-year-old gentleman with history of previous CABG, valvular heart disease with previous TAVR who presented with progressive shortness of breath 1. 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 Patient echo on record obtained in July 2022 was 45%. Patient admitted to monitored bed treatment initiated with strict input and output, daily weight, fluid restriction low-sodium diet as well as diuretic therapy with furosemide. As part of his management patient was placed on supplemental oxygen titrated to keep saturation greater than 90 repeat echo was ordered. Patient blood pressure was relatively on the low side on admission complicating care. - 12/13/2024; patient did improve with diuretic therapy. 2D echo obtained during patient hospitalization did show Stage 1 diastolic dysfunction. Mildly dilated left ventricle. The estimated ejection fraction is 35 %. The left atrium is mildly enlarged. Moderate (2+) mitral valve insufficiency. Mild to moderate (1-2+) tricuspid valve insufficiency. Stable appearing bioprosthetic aortic valve apparatus. Plan is for patient to follow-up with cardiology as outpatient in 2 to 3 days 2. Coronary artery disease ? With previous CABG (with ALSTON to LAD at [facility] in 1995 and redo CABG at [facility] in 2001 with SVG to LCX and SVG to RPDA) with subsequent PCI to an ostial, proximal and mid RCA lesion. Patient is on guideline directed medical therapy 3. Valvular heart disease ? With history of aortic valve stenosis status post TAVR. Patient also has known history of mitral valve regurgitation 4. Obstructive sleep apnea ? Consistent use of PAP therapy encouraged 5. Dyslipidemia ?Patient is is not on any statin therapy we will continue with monitoring 6. BPH with lower urinary obstructive symptoms - Patient treated with tamsulosin 7. Anemia ? Secondary to chronic disorder monitoring H&H and transfuse if patient becomes symptomatic or hemoglobin falls below 7 8.Chronic kidney disease stage III ? Patient has experienced progressive worsening of his kidney function. Creatinine was 1.15 on 01/16/2023 was 1.5 on 11/18/2024 and admitting creatinine was 1.6 this. As part of patient's evaluation ordered renal duplex 9. DVT prophylaxis ? Subcu heparin Time spent in the patient's overall evaluation,decision-making process, review of diagnostic data, adjustment of management, discussion with other providers, nursing nursing and ancillary staff involved in patient's care documentation, 35-minute Medications at Discharge Home Medications vitamin E 200 unit capsule 200 unit PO DAILY 09/14/20 aspirin 81 mg chewable tablet 81 mg PO Q OTHER DAY 09/10/21 tamsulosin 0.4 mg capsule (Flomax) 0.4 mg PO QHS #30 caps 01/27/22 lisinopril 5 mg tablet 2.5 mg PO DAILY 07/14/23 furosemide 40 mg tablet 40 mg PO DAILY 08/09/24 clopidogrel 75 mg tablet 75 mg PO Q OTHER DAY #45 tabs 11/12/24 sildenafil 25 mg tablet 25 mg PO TID 12/12/24 furosemide 20 mg tablet (Lasix) 20 mg PO DAILY #90 tabs 12/13/24 Physical Exam Narrative GENERAL: cooperative HEENT: Atraumatic; normocephalic EYES; Anicteric, Normal Conjunctiva NECK; supple, normal thyroid, RESPIRATORY: Diminished to auscultation CARDIOVASCULAR: Regular S1 S2, systolic murmur GI: soft, normoactive bowel sounds, : No Renal angle tenderness; EXTREMITIES: No edema, no clubbing, MUSCULOSKELETAL: no muscle wasting NEURO: Awake; no lateralizing signs. SKIN: No Rash PSYCH; Flat affect Weight / BMI Weight Weight: 83.688 kg Body Mass Index (BMI) 29.7 ABG / Lab / Microbiology Data 12/13/24 04:47 12/13/24 04:47 Laboratory: Laboratory Results - last 24 hr 12/13/24 04:47: WBC 5.9, RBC 3.60 L, Hgb 10.8 L, Hct 32.2 L, MCV 89.4, MCH 30.0, MCHC 33.5, RDW Std Deviation 49.4 H, RDW Coeff of Jenaro 14.9 H, Plt Count 157, MPV 10.7, Immature Gran % (Auto) 0.200, Neut % (Auto) 47.0, Lymph % (Auto) 36.5, Long % (Auto) 10.9 H, Eos % (Auto) 4.9, Baso % (Auto) 0.5, Absolute Neuts (auto) 2.8, Absolute Lymphs (auto) 2.14, Nucleated RBC % 0, Sodium 137, Potassium 4.3, Chloride 101, Carbon Dioxide 24.2, Anion Gap 11, BUN 51 H, Creatinine 1.56 H, Estim Creat Clear Calc 35.16 L, Est GFR (MDRD) Non-Af 44 L, BUN/Creatinine Ratio 32.6 H, Glucose 100 H, Calcium 9.1, Phosphorus 3.6, Magnesium 2.5 H Radiography Diagnostic Testing: Radiology Impression Echocardiogram 12/12/24 09:57 Interpretation Summary Stage 1 diastolic dysfunction. Mildly dilated left ventricle. The estimated ejection fraction is 35 %. The left atrium is mildly enlarged. Moderate (2+) mitral valve insufficiency. Mild to moderate (1-2+) tricuspid valve insufficiency. Stable appearing bioprosthetic aortic valve apparatus. Ordering Physician: Gaurang Cortes Referring Physician: Pedro Gonzalez Performed By: Jenny Zhong RDCS, RVT D/C Instructions Discharge Diet: 8 Cup Fluid Restriction and 2000 mg Sodium Diet Discharge Activity: Return to Normal Activity Call your doctor if you observe: Fever of 101 or Higher, Shortness of breath, Fainting spells and Chest pain DC O2, CPAP, BIPAP Needs Home O2 Discharge instructions: No Meaningful Use Info Meaningful Use Meaningful Use Diagnoses (Choose all that apply): CHF CHF SONIA/ARB ordered at discharge?: Yes Documented LVEF (%): 35 Ischemic Stroke Statin Dosing Therapy Reference: STATIN DOSE THERAPY REFERENCE: * Patients > 75 years receive moderate or high dose statin therapy. * Patients 75 years or YOUNGER should receive HIGH intensity statin dose unless contraindicated. You will be required to document reason for non-treatment if statin daily dose does not meet guidelines. HIGH DOSE STATIN THERAPY DAILY Atorvastatin > than or = to 40 mg Rosuvastatin > than or = to 20 mg Amlodipine + Atorvastatin > than or = to 2.5/40 mg Ezetimibe + Simvastatin 10/80 mg Simvastatin 80mg Discharge Plan Admission Admit Date/Time: 12/12/24 09:20 Attending Provider: Gaurang Cortes Primary Care Provider: Pedro Gonzalez Discharge Orders/Prescriptions Prescriptions: New furosemide [Lasix] 20 mg tablet 20 mg PO DAILY Qty: 90 0RF Continued vitamin E 200 unit capsule 200 unit PO DAILY lisinopril 5 mg tablet 2.5 mg PO DAILY furosemide 40 mg tablet 40 mg PO DAILY Patient Comments: per may take BID if SOB aspirin 81 mg tablet,chewable 81 mg PO Q OTHER DAY tamsulosin [Flomax] 0.4 mg capsule 0.4 mg PO QHS Qty: 30 0RF sildenafil 25 mg tablet 25 mg PO TID clopidogrel 75 mg tablet 75 mg PO Q OTHER DAY Qty: 45 3RF Referrals / Follow Up: Pedro Gonzalez MD [Primary Care Provider] - Within 2 Weeks Andrzej Marinelli NP, [employer] [Med Staff - Adv Practice Prof] - Within 2 Weeks Disposition Disposition (needs filled in before D/C Order can be placed): Home, Self Care Charges/Coding Visit Charges Inpatient E&M: 05640 Disch Hosp >30min
--- NOTE | 2024-12-13 10:59 | CASEMGMT ---
Patient has order for discharge. RN CM in to discuss needs at discharge. Patient denies needs or help at discharge. Patient had no further questions or concerns.
--- NOTE | 2024-12-13 11:00 | CASEMGMT ---
SEBASTIAN JEFFREY Assessment Face to Face with patient for initial transition planning/care coordination assessment. SEBASTIAN JEFFREY introduced self and role at [facility] [place], pt voices understanding. Pt is A&Ox4 and is resting comfortably in bed and is calm. Pt at bedside. Care providers, pharmacy, and demographics verified. Admitting dx: CHF LACE Strata: 1 PCP: Pedro Gonzalez Specialists: ARJUN (Isis) Preferred Pharmacy: [facility] Insurance: [employer] Prescription Benefit: Yes LNOK: Tayler (W), Luis Miguel (Son) Living Arrangements: Pt lives with his in a single story home with one step to enter ADLs/IADLs: Pt states that he is entirely independent. 6-Click score is 24. 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 Cane. Grab bars. BP Machine. Pt has a scale to weigh himself regarding his CHF. Pt states that he takes Lasix @ home. HHC/SNF: Report HHC hx in 2001. Denies SNF Pt?s goal: Home Plan: Home with pt today, no additional needs. Pt states that he feels safe returning home with his today and denies any further DC needs. Denisse Siegel RN, CM
--- NOTE | 2024-12-13 11:28 | PHA.DC.MC.R ---
Pharmacy [facility] has performed discharge medication reconciliation and counseling for this patient. The patient's discharge medication list was reviewed for discrepancies and discrepancies were resolved. The patient was counseled on the following discharge medications and changes in medications for homegoing were reviewed. The Reason for Use, instructions for use, and potential side effects were reviewed for all new medications. The patient's questions regarding all of their medications were answered. 1. Furosemide The patient was able to verbally demonstrate an understanding of their discharge medications. The patient demonstrated some understanding but would benefit from further education and reinforcement. The patient was not able to adequately demonstrate understanding. The patient reported that at home he was actually taking furosemide 40 mg PO BID, discussed with Dr. Cortes and he is to update the medication list accordingly, stopping the 20 mg PO daily, and continuing his home dose of 40 mg PO BID. Medications at Discharge Home Medications vitamin E 200 unit capsule 200 unit PO DAILY 09/14/20 aspirin 81 mg chewable tablet 81 mg PO Q OTHER DAY 09/10/21 tamsulosin 0.4 mg capsule (Flomax) 0.4 mg PO QHS #30 caps 01/27/22 lisinopril 5 mg tablet 2.5 mg PO DAILY 07/14/23 furosemide 40 mg tablet 40 mg PO DAILY 08/09/24 clopidogrel 75 mg tablet 75 mg PO Q OTHER DAY #45 tabs 11/12/24 sildenafil 25 mg tablet 25 mg PO TID 12/12/24
== END 2024-12-13 12:55 | disposition home or self-care (01) | DRG 291 ==
LOC: ED 09:22 → PCU 09:36
PROVIDERS: Admitting Provider Internal Medicine; Emergency Provider Emergency Medicine; PCP Family Medicine; Visit Provider Internal Medicine
DX: I13.0 Hypertensive heart and chronic kidney disease with heart failure and stage 1 through stage 4 chronic kidney disease, or unspecified chronic kidney disease (principal); I50.23 Acute on chronic systolic (congestive) heart failure; N13.8 Other obstructive and reflux uropathy; D63.1 Anemia in chronic kidney disease; Z66 Do not resuscitate; Z95.3 Presence of xenogenic heart valve; Z95.1 Presence of aortocoronary bypass graft; N18.30 Chronic kidney disease, stage 3 unspecified; I25.10 Atherosclerotic heart disease of native coronary artery without angina pectoris; G47.33 Obstructive sleep apnea (adult) (pediatric); E78.5 Hyperlipidemia, unspecified; R09.02 Hypoxemia; Z82.49 Family history of ischemic heart disease and other diseases of the circulatory system; Z95.5 Presence of coronary angioplasty implant and graft; N40.1 Benign prostatic hyperplasia with lower urinary tract symptoms
CPT/HCPCS: 36415; 71046; 80048; 83735; 83880; 84100; 85025; 93005; 93306; 94668; 99285; Q9957; A4216; C8929; J1940

== ENCOUNTER 2025-02-04 17:55 | Inpatient (IN) | payer OTHER, SELFPAY ==
[2025-02-04] VITALS (13 sets, daily range): BP systolic 82–103; BP diastolic 59–71; PULSE 70–98; RESP 12–26; TEMP 36.3–38.1; O2SAT 89–100; BMI 31.4
--- NOTE | 2025-02-04 18:12 | EKG12_ITS ---
Test Reason : Blood Pressure : */* mmHG Vent. Rate : 100 BPM Atrial Rate : 100 BPM P-R Int : 230 ms QRS Dur : 98 ms QT Int : 362 ms P-R-T Axes : 89 11 115 degrees QTcB Int : 466 ms Sinus rhythm with 1st degree A-V block with frequent Premature ventricular complexes and Fusion complexes Inferior infarct , age undetermined Abnormal ECG Confirmed by CARLA BROOKS, CARLOS ([id number]), news editor SAMMI LIMA ([id number]) on 02/05/2025 11:10:12 AM Referred By: Rea Cancino Confirmed By: CARLOS AGUIRRE MD
--- NOTE | 2025-02-04 18:40 | EX.ED.DYSGE1 ---
HPI History of Present Illness Chief Complaint: General Illness Informant: patient Narrative Narrative: Patient is a 85-year-old presenting with worsening shortness of breath, cough and generalized malaise. Patient has a history of heart failure with reduced ejection fraction, CABG, hyperlipidemia and sleep apnea. States he has been feeling worse over the past 4 to 5 days but is been particularly bad over the past 2 days. Reports has been feeling lightheaded and short of breath. States cough is been productive of sputum. He has an appointment to see cardiology today they told him his lung sounds were clear. His blood pressure was low. He notes he has not been eating or drinking as much. States he has been feeling constipated but denies any abdominal pain. Has been passing gas. Denies any black or blood in his stool. Denies any nausea or vomiting. Denies any rash. Denies any swelling of his legs. Patient's cardiology outpatient visit from today reviewed. Most recently evaluated at our hospital for CHF exacerbation in December 2024. At that time echocardiogram showed LVEF 35%. Was discharged on Lasix 20 mg p.o. daily. Was reporting dizziness. Blood pressure 86/49 with a pulse of 78 in the office today. 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 Was switch to Lasix 40 mg labs daily and lisinopril 2.5 mg daily today. [facility] Medical History GI treated with BiPAP Valvular heart disease HTN (hypertension) CAD (coronary artery disease) HFrEF (heart failure with reduced ejection fraction) Daytime hypersomnolence Nonrheumatic aortic (valve) stenosis Hyperlipidemia Atherosclerotic heart disease of [place] coronary artery without angina pectoris Atherosclerosis of coronary artery bypass graft without angina pectoris (~03/29/22) Home Medications ?Medication ?Instructions ?Recorded ?Last Taken ?Type vitamin E 200 unit capsule 200 unit PO DAILY 09/14/20 Unknown History aspirin 81 mg chewable tablet 81 mg PO Q OTHER DAY 09/10/21 03/29/22 History tamsulosin 0.4 mg capsule (Flomax) 0.4 mg PO QHS #30 caps 01/27/22 Unknown Rx lisinopril 5 mg tablet 2.5 mg PO DAILY 07/14/23 Unknown History clopidogrel 75 mg tablet 75 mg PO Q OTHER DAY #45 tabs 11/12/24 Unknown Rx furosemide 40 mg tablet 40 mg PO QDAY #90 TABLETS 02/04/25 Unknown Rx Allergy/AdvReac Type Severity Reaction Status Date / Time No Known Allergies Allergy Verified 02/04/25 18:00 Family History Father Myocardial infarction CVA (cerebral vascular accident) Mother CHF (congestive heart failure) Brother CAD (coronary artery disease) Cancer leukemia Surgical History Presence of coronary artery bypass graft stent (~03/29/22) History of arthroplasty of knee H/O coronary artery bypass surgery (~01/2002) History of left inguinal hernia repair (~1961) Presence of stent in coronary artery Postsurgical percutaneous transluminal coronary angioplasty (PTCA) status History of aortic valve replacement with bioprosthetic valve (~12/27/17) Social History adopted: No household members: spouse housing: house number of children: 6 current occupational status: employed 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 current occupational exposures/hazards: No pets and animals: Yes (chickens 2 and 1 horse) leisure activities: hunting and fishing history of recent travel: No Smoking Status: Never smoker alcohol intake: never substance use type: does not use caffeine: No what type of physical activity do you participate in: walking frequency: 5-6 times per week duration: 30-45 minutes/day seatbelt use: sometimes do you feel safe at home: Yes ROS ROS ED Constitutional Constitutional ED: Reports fever(s) and other Details: Lightheaded ; Denies chills Eyes Eyes: Denies change in vision ENT ENT ED: Denies rhinorrhea or sore throat Cardiovascular Cardiovascular: Denies chest pain, palpitations or racing heartbeat Respiratory/Chest Respiratory/Chest: Reports cough, dyspnea, dyspnea on exertion and sputum Gastrointestinal Gastrointestinal: Reports abdominal pain and constipation; Denies nausea or vomiting Musculoskeletal Musculoskeletal: Denies arthralgias or myalgias Integumentary Denies rash Neurologic Neurologic: Reports weakness EXAM Physical Exam Const Vital Signs: 02/04/25 17:56 02/04/25 17:58 02/04/25 18:04 Temperature 100.5 F H 100.5 F H Temperature Source Oral Oral Pulse Rate 98 97 Respiratory Rate 21 H 21 H Respiratory Effort Normal Non-Labored Respiratory Pattern Tachypnea Blood Pressure 94/63 94/63 Blood Pressure Mean 73 73 Pulse Ox 93 89 Oxygen Delivery Method Room Air Room Air Oxygen Flow Rate (L/min) Fraction of Inspired Oxygen (FIO2) 02/04/25 18:21 02/04/25 18:46 02/04/25 18:59 Temperature 100.2 F H Temperature Source Oral Pulse Rate 94 92 Respiratory Rate 26 H 23 H Respiratory Effort Respiratory Pattern Blood Pressure 97/69 97/69 Blood Pressure Mean 78 78 Pulse Ox 95 93 96 Oxygen Delivery Method Room Air Room Air Room Air Oxygen Flow Rate (L/min) Fraction of Inspired Oxygen (FIO2) 02/04/25 20:00 02/04/25 20:13 02/04/25 21:00 Temperature 99.5 F H 99.5 F H Temperature Source Oral Oral Pulse Rate 89 88 Respiratory Rate 18 20 H Respiratory Effort Respiratory Pattern Blood Pressure 92/59 L 83/68 L Blood Pressure Mean 70 73 Pulse Ox 98 98 97 Oxygen Delivery Method Nasal Cannula Nasal Cannula Nasal Cannula Oxygen Flow Rate (L/min) 2 2 2 Fraction of Inspired Oxygen (FIO2) 02/04/25 21:43 02/04/25 21:43 02/04/25 22:00 Temperature 99.5 F H Temperature Source Oral Pulse Rate 82 79 Respiratory Rate 23 H 20 H Respiratory Effort Respiratory Pattern Tachypnea Blood Pressure 98/71 Blood Pressure Mean 80 Pulse Ox 98 98 98 Oxygen Delivery Method Bi-pap Bi-pap Oxygen Flow Rate (L/min) Fraction of Inspired Oxygen (FIO2) 28 28 02/04/25 22:48 02/04/25 23:00 Temperature 99.5 F H 99.5 F H Temperature Source Oral Pulse Rate 70 75 Respiratory Rate 20 H 18 Respiratory Effort Respiratory Pattern Blood Pressure 89/65 L 82/61 L Blood Pressure Mean 73 68 Pulse Ox 98 100 Oxygen Delivery Method Bi-pap Oxygen Flow Rate (L/min) Fraction of Inspired Oxygen (FIO2) Positive well nourished and well developed Constitutional Narrative: Mildly ill-appearing General Appearance ED: well developed HEENT Reports dry mucous membranes Mouth ED: Yes dry mucous membranes Mouth: dry mucous membranes Eyes PERRL Neck supple Neck Narrative: Positive JVD Chest Wall inspection of chest normal and palpation of chest normal Resp Resp Narrative: Tachypneic. Diminished breath sounds at the bases. No crackles appreciated. Cardio regular rate and regular rhythm GI non-tender and no masses GI Narrative: Mildly distended abdomen. No tympany. Auscultation: hypoactive bowel sounds Palpation: soft; Negative for tender or guarding Extremity normal to inspection General Extremety ED: Negative for edema General Extremity: Negative for edema Neuro Sensorium / Orientation: alert Motor Exam: general weakness Psych mental status grossly normal Skin no rashes or lesions noted and no wounds MDM MDM MDM Narrative Medical decision making narrative: Patient evaluated for worsening shortness of breath and dyspnea on exertion. Has been feeling lightheaded. Upon arrival patient does have soft blood pressure and is febrile. Differential includes sepsis, pneumonia, symptomatic anemia, MICHELLE, ACS, CHF exacerbation, urinary tract infection. He is not having chest pain so lower suspicion for ACS. EKG does not show any acute ischemic changes however he does have significant ectopy. CBC shows normal white blood cell count of 5.7. He has a mild anemia the hemoglobin of 10.6 but this appears to be stable. CMP shows a mild transaminitis, hyponatremia the sodium of 125, hypochloremia with a level of 92, bicarb of 18. BUN chronically elevated at 50 but creatinine is worsening at now at 1.94 (was 1.56 a month ago). High-sensitivity troponin initially 108 and on repeat is 111. His proBNP is significantly elevated 28,079 which is significantly elevated compared to2 months ago when it was around 8000. Urinalysis shows 2+ bacteria but otherwise is not consistent with infection. There is no leukocytosis or nitrates. VBG was added on as patient does have underlying sleep apnea and is intermittently falling asleep. This actually shows mixed respiratory and metabolic alkalosis. Patient's blood pressure becomes more hypotensive. He is given Tylenol and 2 L of IV fluid. He has improvement of his blood pressure however his workup is more consistent with a cardiac cause and not infectious. Is started on a Lasix drip as I do not think his blood pressure will tolerate Lasix bolus. While patient's troponin is elevated it is the remaining table. I do not think this is primary ACS especially as he is not of chest pain his EKG does not show acute ischemia. Suspect this is more type II associated with strain from CHF exacerbation. Is put on BiPAP as he would normally wear this at night for his comfort. Patient started to complain of some increased abdominal discomfort but attributes it more to have been constipation taking a laxative. Given unclear cause of his fever upon arrival a CT of the chest, abdomen pelvis that contrast (due to acute on chronic kidney injury) is obtained. CT imaging shows findings most consistent with CHF in the lungs and a distended gallbladder that could be thickens however this also could be due to fluid overload. He is not tender in this area. Case discussed with hospitalist the patient remitted to the ICU given his soft blood pressures. Family states that he is DNR CCA and would not want intubation nor pressors. I was given a dose of Zosyn empirically by hospitalist. Lab Data Attestation: I reviewed the patient's lab results. Labs: Laboratory Results - last 24 hr 02/04/25 02/04/25 02/04/25 17:57 18:30 18:58 WBC 5.7 RBC 3.63 L Hgb 10.6 L Hct 31.0 L MCV 85.4 MCH 29.2 MCHC 34.2 RDW Std Deviation 43.8 RDW Coeff of [place] 13.9 Plt Count 82 L MPV 11.4 Immature Gran % (Auto) 0.500 Neut % (Auto) 79.6 H Lymph % (Auto) 12.3 L [place]inger % (Auto) 7.4 Eos % (Auto) 0.0 Baso % (Auto) 0.2 Absolute Neuts (auto) 4.5 Absolute Lymphs (auto) 0.70 L Nucleated RBC % 0 Differential Comment SCANNED Platelet Estimate MOD DEC PT 16.0 H INR 1.3 APTT 32.2 Sodium 125 L Potassium 3.9 Chloride 92 L Carbon Dioxide 18.4 L Anion Gap 15 BUN 50 H Creatinine 1.94 H Estim Creat Clear Calc 28.98 L Est GFR (MDRD) Non-Af 33 L BUN/Creatinine Ratio 25.8 H Glucose 131 H Lactic Acid 1.3 Calcium 8.0 Magnesium 2.1 Total Bilirubin 0.66 AST 108 H ALT 84 H Alkaline Phosphatase 137 H Troponin T High Sens 108 H* Troponin T Hi Sens 2 Hr Troponin [place] 4[place] [address] H Total Protein 5.9 Albumin 3.5 Globulin 2.4 Albumin/Globulin Ratio 1.5 Urine Color Yellow Urine Clarity Sl. Cloudy Urine pH 5.0 Ur Specific [place] 1.020 Urine Protein 30 H Urine Glucose (UA) Normal Urine Ketones Negative Urine Occult Blood 50 H Urine Nitrite Negative Urine Bilirubin Negative Urine Urobilinogen Normal Ur Leukocyte Esterase Negative Urine RBC 0-5 SEEN Urine WBC 0 SEEN Ur Squamous Epith Cells 0-5 SEEN Ur Renal Epithelial Cell 0-5 SEEN Amorphous Sediment 1+ Urine Bacteria 2+ Urine Mucus 0 SEEN 02/04/25 02/04/25 19:57 21:56 WBC RBC Hgb Hct MCV MCH MCHC RDW Std Deviation RDW Coeff of Jenaro Plt Count MPV Immature Gran % (Auto) Neut % (Auto) Lymph % (Auto) [place] % (Auto) Eos % (Auto) Baso % (Auto) Absolute Neuts (auto) Absolute Lymphs (auto) Nucleated RBC % Differential Comment Platelet Estimate PT INR APTT Sodium Potassium Chloride Carbon Dioxide Anion Gap BUN Creatinine Estim Creat Clear Calc Est GFR (MDRD) Non-Af BUN/Creatinine Ratio Glucose Lactic Acid Calcium Magnesium Total Bilirubin AST ALT Alkaline Phosphatase Troponin T High Sens Troponin T Hi Sens 2 Hr 111 H* Troponin T Hi Sens 4Hr 114 H* NT pro BNP II Total Protein Albumin Globulin Albumin/Globulin Ratio Urine Color Urine Clarity Urine pH Ur Specific [place] Urine Protein Urine Glucose (UA) Urine Ketones Urine Occult Blood Urine Nitrite Urine Bilirubin Urine Urobilinogen Ur Leukocyte Esterase Urine RBC Urine WBC Ur Squamous Epith Cells Ur Renal Epithelial Cell Amorphous Sediment Urine Bacteria Urine Mucus ABG Data ABG results: ABG 02/04/25 20:14 Specimen Type HEIDI Sample Site Not entered VBG pH 7.47 H VBG pO2 37 VBG HCO3 20 L VBG Total CO2 21 L VBG O2 Sat (Calc) 76 H VBG Base Excess -4 L POC Mix VBG pCO2 Pt Tmp 27.3 L O2 Delivery Device Room Air Radiography Chest X-Ray - ED: 1 View, Read by ED Physician, Read by Radiologist and CHF Diagnostic Testing: Clinical Impression(s) from Imaging Studies Chest X-Ray 02/04/25 19:02 IMPRESSION: Prominent interstitial markings with enlarged cardiomediastinal silhouette, as can be seen with cardiogenic pulmonary edema. Reading Location: [id number] Chest/Abdomen/Pelvis CT 02/04/25 20:37 IMPRESSION: 1. Trace pleural effusions, [id number]-left. 2. Gallbladder wall thickening, without radiodense stones. This is a nonspecific finding and could be related to fluid overload. Consider ultrasound if patient has associated symptoms. 3. Abdominal aortic aneurysm measuring 4.5 cm. 4. Solid pulmonary nodule in the right middle lobe measuring 4 mm, consider CT chest in 12 months if patient is at high risk for malignancy per Fleischner society guidelines. Reading Location: [facility] Rhythm Strip Rhythm Strip: Sinus Rhythm Rate: 100 Ectopy: PVC(s) EKG Initial EKG: Attestation: I personally reviewed and interpreted this EKG as follows: Interpretation: Sinus Rhythm Comments: Normal sinus rhythm at 100 beats per minutes with first-degree AV block OK interval 230 Frequent PVCs presents as well as fusion complexes T wave inversion in aVL as well as V6 Compared to prior EKG patient now has frequent PVCs but no other acute changes Management Discussion w/another healthcare provider: Hospitalist Discharge Plan Triage Chief Complaint: General Illness ED Provider: Maryanne Emanuel Dx/Rx/DC Orders Clinical Impression: Dyspnea on exertion, Presence of coronary artery bypass graft stent, CHF exacerbation, Elevated troponin, Acute hyponatremia, Acute on chronic kidney failure, Fever, unknown origin, Multifocal PVCs Prescriptions: No Action vitamin E 200 unit capsule 200 unit PO DAILY lisinopril 5 mg tablet 2.5 mg PO DAILY furosemide 40 mg tablet 40 mg PO QDAY Qty: 90 3RF Patient Comments: per may take BID if SOB aspirin 81 mg tablet,chewable 81 mg PO Q OTHER DAY tamsulosin [Flomax] 0.4 mg capsule 0.4 mg PO QHS Qty: 30 0RF clopidogrel 75 mg tablet 75 mg PO Q OTHER DAY Qty: 45 3RF Primary Care Provider: Pedro Gonzalez Referrals: Pedro Gonzalez MD [Primary Care Provider] - Print Language: Indonesian Disposition Disposition: Acute Care Hospital [facility]
[2025-02-04] MEDS: Acetaminophen 325 MG Tablet 650 MG PO (18:46)
--- NOTE | 2025-02-04 19:02 | RAD_ITS ---
PROCEDURE: CHEST 1 VIEW (PORTABLE) 02/04/2025 REASON FOR EXAM: SOB TECHNIQUE: Frontal view of the chest. COMPARISON: Chest radiograph on 12/12/2024 and 01/27/2022 FINDINGS: Hardware: Unchanged Heart: Sequela of CABG. Cardiac and mediastinal contours are again prominent. Lungs: Interstitial markings are increased in prominence. Bones: Degenerative changes are identified within the thoracic spine. Median sternotomy wires. RAD/Chest 1 View (Portable) IMPRESSION: Prominent interstitial markings with enlarged cardiomediastinal silhouette, as can be seen with cardiogenic pulmonary edema. Reading Location: [id number]
[2025-02-04 19:09] LABS: International Normalized Ratio 1.3
[2025-02-04 19:10] LABS: Mucous, Urine 0 SEEN /hpf (<or=2+); White Blood Cells 0 SEEN /hpf (0-5)
[2025-02-04 19:10] LABS: Absolute Neutrophil Count 4.5 X10^3/uL (2.0-7.7); Basophil# 0.01 X10^3/uL; Basophil% 0.2 % (0-1); Hemoglobin 10.6 g/dL (13.0-16.5); Lymphocyte % 12.3 % (19-41); Mean Corp Hgb Conc 34.2 g/dL (32-36); Mean Corpuscular Hgb 29.2 pg (27.0-32.0); Mean Corpuscular Volume 85.4 fL (80-94); Monocyte# 0.42 X10^3/uL; Monocyte% 7.4 % (0-10); NRBC Flagged by Analyzer 0 % (0-5); Neutrophil # 4.52 X10^3/uL (2.7-7.7); Neutrophil % 79.6 % (47-70); POSITIVE COUNT YES; Partial Thromboplast Time 32.2 Seconds (24.1-36.2); RBC Distribution Width CV 13.9 % (11.6-14.6); RBC Distribution Width SD 43.8 fl (35.1-43.9); Red Blood Count 3.63 M/mm3 (4.6-6.2); White Blood Count 5.7 K/mm3 (4.4-11.0)
[2025-02-04 19:29] LABS: Pro- Brain NATRIURETIC PEPTIDE 28079 pg/mL (<=1800)
[2025-02-04] MEDS: 0.9% Normal Saline (1000mL) 1,000 ML 999 ML IV ×2 (19:30→20:40)
[2025-02-04 19:31] LABS: ALB/GLOB Ratio 1.5 RATIO (0.9-2.4); AST(SGOT) 108 U/L (<=37); Alanine Aminotransfer ALT/SGPT 84 U/L (<=46); Albumin, Serum 3.5 g/dL (3.4-4.8); Alkaline Phosphatase 137 U/L (40-129); Anion Gap 15 (5-15); BUN 50 mg/dL (4-19); BUN/Creat Ratio 25.8 RATIO (10-20); Carbon Dioxide 18.4 mmol/L (21.0-32.0); Chloride 92 mmol/L (98-108); Creatinine, Serum 1.94 mg/dL (0.70-1.20); EST Glomerular Filtration Rate 33 (>60); Estimated Creatinine Clearance 28.98 ml/min (50-250); Globulin 2.4 g/dL (2.2-4.2); Glucose 131 mg/dL (70-99); Magnesium 2.1 mg/dL (1.5-2.2); Potassium 3.9 mmol/L (3.3-5.1); Protein, Total 5.9 g/dL (5.9-8.4); Sodium Level 125 mmol/L (133-145); Total Bilirubin 0.66 mg/dL (0.00-1.30)
[2025-02-04 19:31] LABS: Lactic Acid 1.3 mmol/L (0.0-2.0)
[2025-02-04 19:32] LABS: Troponin T High Sensitivity 108 ng/L (<=22)
[2025-02-04 19:52] LABS: Differential Indicated SCAN CRITERIA MET
[2025-02-04 20:13] LABS: Color, Urine Yellow (Yellow); Glucose, Dipstick Normal (Normal); Ketone-Dipstick Negative (Negative); Leukocyte Esterase-Dipstick Negative /ul (Negative); Nitrite-Dipstick Negative (Negative); Occult Blood-Urine 50 /ul (Negative); Protein-Dipstick 30 mg/dl (Negative); Urine Bilirubin Dipstick Negative (Negative); Urine Clarity Sl. Cloudy (Clear); Urine Urobilinogen Normal (Normal)
[2025-02-04 20:17] LABS: Blood Gas Specimen Type VEN; O2 Delivery Device Room Air; SITE Not entered; VBG BASE EXCESS -4 mmol/L (-1.0-3.5); VBG Bicarbonate 20 mmol/L (22-26); VBG PO2 37 mmHg (25-40); VBG SO2 76 % (50-70); VBG TCO2 21 mmol/L (23-33); VBG pCO2 27.3 mmHg (41-51); VBG pH 7.47 (7.32-7.42)
[2025-02-04 20:37] LABS: Troponin T High Sens 2 HR 111 ng/L (<=22)
--- NOTE | 2025-02-04 20:37 | CT_ITS ---
PROCEDURE: CT CHEST, ABD, PELVIS WO CONT 02/04/2025 REASON FOR EXAM: SOB, ABD PAIN, FEVER TECHNIQUE: Chest, abdomen and pelvis CT without intravenous contrast. Coronal and Sagittal reconstruction series were provided. One or more dose reduction techniques were used (e.g., Automated exposure control, adjustment of the mA and/or kV according to patient size, use of iterative reconstruction technique. No oral contrast. RADIATION DOSE SUMMARY: CTDlvol: 21.9 mGy DLP: 1671 mGycm COMPARISON: Chest radiographs 02/01/2020 FINDINGS: CT CHEST: Lymph nodes: Mildly prominent subcentimeter mediastinal lymph nodes, likely reactive. Calcified right hilar nodes. Heart and Vasculature: Cardiomegaly with severe coronary calcification and prosthetic aortic valve. Moderate aortic atherosclerosis, without aneurysm. Lungs and Airways: The central airways are predominantly clear. There is atelectasis at the medial aspect of the left lower lobe. There are scattered calcified granulomas throughout both lungs. Solid subpleural nodule in the right middle lobe measuring 4 mm (series 2, image 90). Pleura: Trace pleural effusions, [id number]-left. Bones: Sequela of median sternotomy. Degenerative changes of the thoracic spine. Soft tissues: Mild bilateral gynecomastia. CT ABDOMEN / PELVIS: Noncontrast technique limits evaluation of the abdominal and pelvic viscera. Liver: No discrete mass. Trace perihepatic ascites along the right posterior margin of the liver. Gallbladder: There is gallbladder wall thickening measuring approximately 5 mm, without radiodense stones. Spleen: Unremarkable Pancreas: Normal size without evidence of mass surrounding inflammation or ductal dilation. Adrenals: Unremarkable Kidneys: No hydronephrosis or stone. Simple cyst at the lower pole of the left kidney. Bladder: Urinary catheter balloon inflated within the lumen. Reproductive Organs: Mild prostatomegaly. Bowel: No obstruction or inflammation. Lymph nodes: Unremarkable. Vasculature: Infrarenal abdominal aortic aneurysm measuring 4.5 cm in diameter Bones: Degenerative changes of the spine. Transitional lumbosacral anatomy. CT/CT Chest, Abd, Pelvis WO Cont IMPRESSION: 1. Trace pleural effusions, [id number]-left. 2. Gallbladder wall thickening, without radiodense stones. This is a nonspeci fic finding and could be related to fluid overload. Consider ultrasound if patient has associated symptoms. 3. Abdominal aortic aneurysm measuring 4.5 cm. 4. Solid pulmonary nodule in the right middle lobe measuring 4 mm, consider CT chest in 12 months if patient is at high risk for malignancy per Fleischner society guidelines. Reading Location: [id number]
[2025-02-04 20:56] LABS: Mean Platelet Vol. 11.4 fl (6.2-12.0); Platelet Count 82 K/mm3 (150-450)
[2025-02-04 20:57] LABS: Differential Comment SCANNED; Platelet Estimate MOD DEC (ADEQ)
[2025-02-04 21:07] LABS: Amorphous Sediment 1+; Bacteria 2+ /hpf (None Seen); Red Blood Cells-Urine 0-5 SEEN /hpf (0-5); Renal Epithelial Cells 0-5 SEEN /hpf (0-5); Squamous Epithelial Cells - UA 0-5 SEEN /hpf (0-5)
[2025-02-04] MEDS: Furosemide 500 MG in Empty Viaflex 50 mL 1 EACH CONT INF (21:49)
[2025-02-04 22:33] LABS: Troponin T High Sens 4 HR 114 ng/L (<=22)
--- NOTE | 2025-02-04 22:39 | PCM.HP.STD ---
HPI - General General Date of Admission: 02/04/25 Date of Service: 02/04/25 Chief Complaint: Dyspnea, fatigue, malaise, cough. HPI Narrative The patient is an 85 y/o M w/ PMHx: Chronic anemia, CKD stage III unclear subtype, Chronic Thrombocytopenia, Valvular Heart Disease, CAD s/p PCI and CABG, HTN, HLD, AAA, BPH with obstructive pathology, HFrEF, GI on BiPAP nightly who presents to the [facility] on 02/04/2025 with history of progressively worsening dyspnea starting on with increased fatigue and malaise, productive cough however he is felt worse over the last 48 hours with mild lightheadedness and worsening dyspnea especially with any exertion with evaluation by cardiology service on day of presentation with no concerning pulmonary sounds however he did have a low blood pressure at that time and did reveal that he had not been eating or drinking much and had recently complained of constipation although he did report positive flatus with no nausea or emesis with plan for change to diuretics but given his worsening status prompted ED evaluation to be cautious.Workup in the ED included T1 100.5, heart rate 98, BP 94/63, respiratory rate 21, initially 93% on room air however desaturated down to 89% with repeat vitals T99.5 Oral, heart rate 88, BP 83/68, respiratory rate 20, 97% on 2 L nasal cannula eventually transition to a BiPAP with most current vitals T99.5, heart rate 79, BP 90/71, respiratory rate 20, 98% on BiPAP, CBC with WBCs of 5.7, hemoglobin 10.6, MCV 85.4, platelet 82 with lymphopenia, coags with PT 16 otherwise not marked appearing, VBG with pH 7.47, PO237, bicarb 20, total CO2 21, O2 saturation 76%, CMP with sodium 125, chloride 92, carbon oxide 18.4, BUN/[place] 50/1.94, GFR 33, glucose 131, lactic acid 1.3, magnesium 2.1, AST/ALT 108/84, alk phos 137, T. bili 0.66, initial troponin 108 with repeat delta troponin 111, 4-hour troponin pending upon request evaluation of patient, NT proBNP 20598, urinalysis noted cloudy, protein 30, occult blood 50, no marked urine WBCs or RBCs, negative nitrite, negative leukocyte esterase with 2+ bacteria but again no strong appearance of UTI, chest x-ray with prominent interstitial markings with enlarged cardiomediastinal silhouette concerning for cardiogenic pulmonary edema, CT chest/abdomen/pelvis with trace pleural effusions right greater than left, gallbladder wall thickening without any radiodense stones noted immediately nonspecific, abdominal aortic aneurysm measuring 4.5 cm, solid pulmonary nodule in the right middle lobe measuring 4 mm. Blood culture x 2 pending per ED, urine culture pending per ED. In the ED patient ministered Tylenol 650 mg p.o. x 1 as well as initiated on a Lasix drip. Garcia catheter placed per ED. He was initially also given 1.5L NS secondary to concern for sepsis but his work-up further notable for overload thus D/C. [facility] Medical History GI treated with BiPAP Valvular heart disease HTN (hypertension) CAD (coronary artery disease) HFrEF (heart failure with reduced ejection fraction) Daytime hypersomnolence Nonrheumatic aortic (valve) stenosis Hyperlipidemia Atherosclerotic heart disease of [place] coronary artery without angina pectoris Atherosclerosis of coronary artery bypass graft without angina pectoris (~03/29/22) Home Medications ?Medication ?Instructions ?Recorded ?Last Taken ?Type vitamin E 200 unit capsule 200 unit PO DAILY 09/14/20 Unknown History aspirin 81 mg chewable tablet 81 mg PO Q OTHER DAY 09/10/21 03/29/22 History tamsulosin 0.4 mg capsule (Flomax) 0.4 mg PO QHS #30 caps 01/27/22 Unknown Rx lisinopril 5 mg tablet 2.5 mg PO DAILY 07/14/23 Unknown History clopidogrel 75 mg tablet 75 mg PO Q OTHER DAY #45 tabs 11/12/24 Unknown Rx furosemide 40 mg tablet 40 mg PO QDAY #90 TABLETS 02/04/25 Unknown Rx Allergy/AdvReac Type Severity Reaction Status Date / Time No Known Allergies Allergy Verified 02/04/25 18:00 Family History Father Myocardial infarction CVA (cerebral vascular accident) Mother CHF (congestive heart failure) Brother CAD (coronary artery disease) Cancer leukemia Surgical History Presence of coronary artery bypass graft stent (~03/29/22) History of arthroplasty of knee H/O coronary artery bypass surgery (~01/2002) History of left inguinal hernia repair (~1961) Presence of stent in coronary artery Postsurgical percutaneous transluminal coronary angioplasty (PTCA) status History of aortic valve replacement with bioprosthetic valve (~12/27/17) Social History adopted: No household members: spouse housing: house number of children: 6 current occupational status: employed current occupation: [employer] current occupational exposures/hazards: No pets and animals: Yes (chickens 2 and 1 horse) leisure activities: hunting and fishing history of recent travel: No Smoking Status: Never smoker alcohol intake: never substance use type: does not use caffeine: No what type of physical activity do you participate in: walking frequency: 5-6 times per week duration: 30-45 minutes/day seatbelt use: sometimes do you feel safe at home: Yes ROS ROS Narrative Admission Review of Systems: CONSTITUTIONAL: No weight loss, fever, chills, + weakness or fatigue. In the ED patient noted to be febrile although he denied previous history but did not been checking his temperature. HEENT: Eyes: No visual loss, blurred vision, double vision or yellow sclerae. Ears, Nose, Throat: No hearing loss, sneezing, congestion, runny nose or sore throat. SKIN: No rash or itching, lesions, wounds. CARDIOVASCULAR: + Increased edema, orthopnea. No chest pain, chest pressure or chest discomfort, palpitations, syncopal events. RESPIRATORY: + Dyspnea, worse with exertion, productive cough. Occasional wheezing. No hemoptysis. GASTROINTESTINAL: + Lack of appetite, constipation. No nausea, vomiting, diarrhea, abdominal pain, melena, BRBPR. GENITOURINARY: + BPH with chronic obstructive pathology. No dysuria, frequency, urgency. NEUROLOGICAL: No headache, dizziness, syncope, paralysis, ataxia, numbness or tingling in the extremities, focal weakness, change in bowel or bladder control, seizure. MUSCULOSKELETAL: + muscle, back pain, joint pain or stiffness. HEMATOLOGIC: + Chronic anemia, easy bleeding/bruising. LYMPHATICS: No enlarged nodes. No history of splenectomy. PSYCHIATRIC: No history of depression or anxiety. ENDOCRINOLOGIC: No reports of sweating, cold or heat intolerance. No polyuria or polydipsia. ALLERGIES: No history of asthma, hives, eczema or rhinitis. Vital Signs Vital Signs Vital Signs: 02/04/25 17:56 02/04/25 17:58 02/04/25 18:04 Temperature 100.5 F H 100.5 F H Temperature Source Oral Oral Pulse Rate 98 97 Respiratory Rate 21 H 21 H Respiratory Effort Normal Non-Labored Respiratory Pattern Tachypnea Blood Pressure 94/63 94/63 Blood Pressure Mean 73 73 Pulse Ox 93 89 Oxygen Delivery Method Room Air Room Air Oxygen Flow Rate (L/min) Fraction of Inspired Oxygen (FIO2) 02/04/25 18:21 02/04/25 18:46 02/04/25 18:59 Temperature 100.2 F H Temperature Source Oral Pulse Rate 94 92 Respiratory Rate 26 H 23 H Respiratory Effort Respiratory Pattern Blood Pressure 97/69 97/69 Blood Pressure Mean 78 78 Pulse Ox 95 93 96 Oxygen Delivery Method Room Air Room Air Room Air Oxygen Flow Rate (L/min) Fraction of Inspired Oxygen (FIO2) 02/04/25 20:00 02/04/25 20:13 02/04/25 21:00 Temperature 99.5 F H 99.5 F H Temperature Source Oral Oral Pulse Rate 89 88 Respiratory Rate 18 20 H Respiratory Effort Respiratory Pattern Blood Pressure 92/59 L 83/68 L Blood Pressure Mean 70 73 Pulse Ox 98 98 97 Oxygen Delivery Method Nasal Cannula Nasal Cannula Nasal Cannula Oxygen Flow Rate (L/min) 2 2 2 Fraction of Inspired Oxygen (FIO2) 02/04/25 21:43 02/04/25 21:43 02/04/25 22:00 Temperature 99.5 F H Temperature Source Oral Pulse Rate 82 79 Respiratory Rate 23 H 20 H Respiratory Effort Respiratory Pattern Tachypnea Blood Pressure 98/71 Blood Pressure Mean 80 Pulse Ox 98 98 98 Oxygen Delivery Method Bi-pap Bi-pap Oxygen Flow Rate (L/min) Fraction of Inspired Oxygen (FIO2) 28 28 Weight Weight: 194 lb 10.691 oz Body Mass Index (BMI) 31.4 Physical Exam Narrative Physical Examination: General: Patient awake, alert, oriented to self and recent events, on the BiPAP, fatigued, currently respiratory status improved on BiPAP but blood pressure on monitor noted to be continuing to drop although on Lasix drip. Skin: Normal color, normal turgor, no icterus, no cyanosis except occasional stage ecchymoses, abrasions. HEENT: AT/NC, EOMI, PERRLA, mildly dry MM, BiPAP in place, unable to discern carotid bruit given referred sounds, unable to discern JVD given very thick shoemaker. Lungs: Significantly diminished, distant breath sounds, Rales at the bases, mildly increased respiratory rate but no distress currently is on BiPAP, improved status since initial ED arrival. Heart: Regular rate and rhythm; no gallop, rub audible, + SM. Abdomen: Soft, obese, NTTP, even the right upper quadrant and epigastric region, distant BS, difficult to discern distention HSM given habitus. Extremities: No cyanosis, no clubbing, mild pedal to distal trevizo edema. Neurological: Patient awake, alert, oriented as noted, cognitive function mildly decreased given increased fatigue, on BiPAP as noted, pupils equally reactive to light and accommodation, cranial nerves grossly normal, moving all 4 extremities, no focal deficits, strength severely globally decreased secondary to acute presentation. Psychiatric: Affect appears flat, fatigued, no acute evidence of depressive or anxiety feelings. Results Lab / Micro Data 02/04/25 18:30 02/04/25 17:57 Labs: Laboratory Results - last 24 hr 02/04/25 17:57: Sodium 125 L, Potassium 3.9, Chloride 92 L, Carbon Dioxide 18.4 L, Anion Gap 15, BUN 50 H, Creatinine 1.94 H, Estim Creat Clear Calc 28.98 L, Est GFR (MDRD) Non-Af 33 L, BUN/Creatinine Ratio 25.8 H, Glucose 131 H, Calcium 8.0, Magnesium 2.1, Total Bilirubin 0.66, AST 108 H, ALT 84 H, Alkaline Phosphatase 137 H, Troponin T High Sens 108 H*, [place] [address] H, Total Protein 5.9, Albumin 3.5, Globulin 2.4, Albumin/Globulin Ratio 1.5 02/04/25 18:30: WBC 5.7, RBC 3.63 L, Hgb 10.6 L, Hct 31.0 L, MCV 85.4, MCH 29.2, MCHC 34.2, RDW Std Deviation 43.8, RDW Coeff of [place] 13.9, Plt Count 82 L, MPV 11.4, Immature Gran % (Auto) 0.500, Neut % (Auto) 79.6 H, Lymph % (Auto) 12.3 L, [place] % (Auto) 7.4, Eos % (Auto) 0.0, Baso % (Auto) 0.2, Absolute Neuts (auto) 4.5, Absolute Lymphs (auto) 0.70 L, Nucleated RBC % 0, Differential Comment SCANNED, Platelet Estimate MOD DEC, PT 16.0 H, INR 1.3, APTT 32.2, Lactic Acid 1.3 02/04/25 18:58: Urine Color Yellow, Urine Clarity Sl. Cloudy, Urine pH 5.0, Ur Specific [place] 1.020, Urine Protein 30 H, Urine Glucose (UA) Normal, Urine Ketones Negative, Urine Occult Blood 50 H, Urine Nitrite Negative, Urine Bilirubin Negative, Urine Urobilinogen Normal, Ur Leukocyte Esterase Negative, Urine RBC 0-5 SEEN, Urine WBC 0 SEEN, Ur Squamous Epith Cells 0-5 SEEN, Ur Renal Epithelial Cell 0-5 SEEN, Amorphous Sediment 1+, Urine Bacteria 2+, Urine Mucus 0 SEEN 02/04/25 19:57: Troponin T Hi Sens 2 Hr 111 H* 02/04/25 21:56: Troponin T Hi Sens 4Hr 114 H* ABG Data ABG results: ABG 02/04/25 20:14 Specimen Type HEIDI Sample Site Not entered VBG pH 7.47 H VBG pO2 37 VBG HCO3 20 L VBG Total CO2 21 L VBG O2 Sat (Calc) 76 H VBG Base Excess -4 L POC Mix VBG pCO2 Pt Tmp 27.3 L O2 Delivery Device Room Air Imaging Radiology Impression Chest X-Ray 02/04/25 19:02 IMPRESSION: Prominent interstitial markings with enlarged cardiomediastinal silhouette, as can be seen with cardiogenic pulmonary edema. Reading Location: [id number] Chest/Abdomen/Pelvis CT 02/04/25 20:37 IMPRESSION: 1. Trace pleural effusions, irmok-piricne-vecl-left. 2. Gallbladder wall thickening, without radiodense stones. This is a nonspecific finding and could be related to fluid overload. Consider ultrasound if patient has associated symptoms. 3. Abdominal aortic aneurysm measuring 4.5 cm. 4. Solid pulmonary nodule in the right middle lobe measuring 4 mm, consider CT chest in 12 months if patient is at high risk for malignancy per Fleischner society guidelines. Reading Location: [facility] Assessment & Plan Assessment/Plan (1) CHF exacerbation: PLAN: Plan The patient is an 85 y/o M w/ PMHx: Chronic anemia, CKD stage III unclear subtype, Chronic Thrombocytopenia, Valvular Heart Disease, CAD s/p PCI and CABG, HTN, HLD, AAA, BPH with obstructive pathology, HFrEF, GI on BiPAP nightly who presents to the [facility] on 02/04/2025 with history of progressively worsening dyspnea starting on with increased fatigue and malaise, productive cough however he is felt worse over the last 48 hours with mild lightheadedness and worsening dyspnea especially with any exertion with evaluation by cardiology service on day of presentation with no concerning pulmonary sounds however he did have a low blood pressure at that time and did reveal that he had not been eating or drinking much and had recently complained of constipation although he did report positive flatus with no nausea or emesis with plan for change to diuretics but given his worsening status prompted ED evaluation to be cautious. #1. Acute hypoxic respiratory failure, multifactorial, secondary to acutely decompensated HFrEF complicated by elevated cardiac troponin, consistent with type II NSTEMI suspected likely demand but uncertain complicated by #2, #3: Will admit to the ICU given MAP upon ED evaluation has noted to be dropping, will request ICU physician consultation as well as Cardiology consultation, will continue BiPAP placement, maintain on cardiac telemetry, continue to obtain cardiac enzyme series, obtain serial EKGs as needed, unfortunately with hypotension diuresis is difficult but will diurese as able, will monitor I/Os, maintain on intake restriction, continue medical therapy, obtain TSH, normal magnesium level per ED. Most recent ECHO as noted 12/12/2024 however given presentation with significant enzyme elevation we will request repeat echocardiogram to be cautious. #2. Possible Acute Viral Syndrome (recent fever, cough, fatigue, general malaise: Patient with only pulmonary complaints, no marked abdominal complaints given #3, to be cautious as noted will maintain on BiPAP, wean as tolerated to room air although does use BiPAP nightly, will have as needed albuterol, will maintain on IV Zosyn pending evaluation for gallbladder assessment however transaminitis likely related with his volume overload but to be cautious we will continue until able to de-escalate, encourage head of bed, I-S, requested new sputum culture, will obtain full respiratory viral panel. Procalcitonin requested. UCX, blood culture x 2 pending per ED. #3. Mild transaminitis with questionably thickened GB: Lower suspicion for GB etiology. Admission CBC with WBC 5.7 with no marked left shift however patient is febrile, CMP with AST/LT 108/84, CT chest/abdomen/pelvis with gallbladder wall thickening measuring approximately 5 mm however no evidence of any radiodense stones, to be cautious will obtain gallbladder ultrasound, maintain on IV zosyn, allow clears only, maintain on IV PPI. #4. Abdominal aortic aneurysm: CT noting an abdominal aortic aneurysm measuring 4.5 cm, noted CTA of the chest and abdomen 11/03/2017 with [facility] with a noted infrarenal abdominal aortic aneurysm 3.4 x 3.2 cm, encourage continued outpatient follow-up and evaluation as likely there has been more imaging in between. #5. Incidentally noted pulmonary nodule: Patient with CT scan notable for a solid pulmonary nodule in the right middle lobe measuring 4 mm, encourage continued outpatient follow-up CT imaging with PCP. #6. Chronic normocytic anemia: Admission hemoglobin 10.6, MCV 85.4, baseline hemoglobin primarily 10-11 range, continue to trend. #7. Acute hyponatremia, suspected secondary to hypervolemic presentation: Admission sodium 125, chloride 92, attempting judicious diuresis as noted above, magnesium normal per ED, TSH requested, will continue to trend CMP and if not correcting certainly investigate further. #8. Acute on chronic thrombocytopenia: Admission platelets 82, has vacillated, most recently 12/13/2024 platelets normal range 157 however previous to this had been in the 130-140 range, will cautiously continue heparin drip as noted, trend CBC. #9. Acute renal insufficiency/elevated creatinine on Chronic Kidney Disease Stage III, unclear subtype or GFR trending: Admission BUN/Cr 50/1.94, GFR 33, baseline renal function primarily 1.3-1.6 range, most recently 12/13/2024 creatinine 1.56, repeat BMP in AM. #10. Valvular heart disease: Status post AVR, noted to be bioprosthetic, 12/12/2024 echocardiogram with stage I diastolic dysfunction, mildly dilated LV, EF 35%, 6 mildly enlarged LA, moderate MVI, mild to moderate TBI, stable appearing bioprosthetic AV apparatus. #11. CAD: Status post PCI and CABG, will continue aspirin, Plavix, not on statin therapy per current list with no allergy noted thus will add at least moderate dose statin given age and presentation as noted #1. Not on beta-mohit therapy, will hold lisinopril given hypotension as noted, attempting to maximize usage for diuresis as noted above. #12. Hypertension: Given hypotensive presentation holding lisinopril, attempting usage as noted of IV Lasix diuresis as able. #13. Hyperlipidemia: Not on statin therapy, adding at least moderate dose given presentation #1, FLP in AM. #14. BPH with obstructive pathology: Will cautiously continue Flomax home regimen. #15. GI: Maintained on BIPAP. #16. DVT prophylaxis: Heparin drip. #17. CODE status: Patient and family is his medical decision-maker he notes. Discussed CODE status at length including difference between FULL code, DNR-CCA and DNR-CC status. Following discussions about the differences in these status, requested DNR CCA, no intubation and requested avoidance of any pressor therapy or central line placement. Different examples including respiratory failure isolated component discussed but did not want any intubation in the setting either. Advanced Care Planning Face to Face Time: 16 minutes. Charges/Coding Visit Charges Inpatient E&M: 15017 Init Hosp L3 Procedures Hospitalists Procedures: 31572 Advncd Care Plan 30 Min
--- NOTE | 2025-02-04 22:47 | US_ITS ---
PROCEDURE: GALLBLADDER 02/04/2025 REASON FOR EXAM: THICKENED GB, ELEVATED LFTS, FEBRILE COMPARISON: CT chest abdomen and pelvis on 02/04/2025 FINDINGS: Liver: Normal size measuring 15.5 cm longitudinally. Echogenicity is slightly increased relative to the right kidney. Hepato pedal flow in the main portal vein. Trace perihepatic ascites, unchanged. Gallbladder: Incompletely distended which limits evaluation. Gallbladder wall thickness measures 0.4 cm. No echogenic stones identified. Perihepatic ascites reported on the technologist worksheet is not well-demonstrated on the documented images. Sonographic Patel's sign is not reported by the technologist. Common bile duct: Normal measuring 4 mm. Pancreas: Obscured by bowel gas. Other: Visualized portions of the right kidney are unremarkable. No right upper quadrant ascites. US/Gallbladder IMPRESSION: 1. Limited evaluation due to incomplete distention of the gallbladder. No rad iodense stones are seen. There is mild wall thickening, similar to same day CT. 2. Findings suggestive of hepatic steatosis. Reading Location: [id number]
--- OUTSIDE RECORDS SUMMARY | 2025-02-04 23:27 | XMS RPT_ITS | CCD ---
Author Organization [facility] Care Team Providers Care Crisis Manager Name Role Phone WHITE, TIFFANIE Unavailable Unavailable WHITE, TIFFANIE Unavailable Unavailable WHITE, TIFFANIE Unavailable Unavailable WHITE, TIFFANIE Unavailable Unavailable WHITE, TIFFANIE Unavailable Unavailable WHITE, TIFFANIE Unavailable Unavailable WHITE, TIFFANIE Unavailable Unavailable UNAI, SHINYA Unavailable Unavailable WHITE, TIFFANIE Unavailable Unavailable FELICIA COLVIN L (HISTORY INSTRUCTOR) Unavailable Unavailable WHITE, TIFFANIE Unavailable Unavailable WHITE, TIFFANIE Unavailable Unavailable WHITE, TIFFANIE Unavailable Unavailable WHITE, TIFFANIE Unavailable Unavailable WHITE, TIFFANIE Unavailable Unavailable WHITE, TIFFANIE Unavailable Unavailable WHITE, TIFFANIE Unavailable Unavailable WHITE, TIFFANIE Unavailable Unavailable ALLEN, CHANEL R Unavailable Unavailable ALLEN, CHANEL R Unavailable Unavailable ALLEN, CHANEL R Unavailable Unavailable BARTONEMARY (PA) Unavailable Unavailable ALLEN, CHANEL R Unavailable Unavailable ALLEN, CHANEL R Unavailable Unavailable ALLEN, CHANEL R Unavailable Unavailable ALLEN, CHANEL R Unavailable Unavailable ALLEN, CHANEL R Unavailable Unavailable ALLEN, CHANEL R Unavailable Unavailable ALLEN, CHANEL R Unavailable Unavailable ALLEN, CHANEL R Unavailable Unavailable BARTONEMARY (PA) Unavailable Unavailable ALLEN, CHANEL R Unavailable Unavailable ALLEN, CHANEL R Unavailable Unavailable WHITE, TIFFANIE Unavailable Unavailable SAJI PENA DR Admitting Unavailable SAJI PENA DR Attending Unavailable SAJI PENA DR Primary Care Unavailable GIL GONZALEZ Consulting Unavailable PROVIDER, UNKNOWN Consulting Unavailable SAJI PENA DR Admitting Unavailable SAJI PENA DR Attending Unavailable GIL GONZALEZ Referring Unavailable SAJI PENA DR Primary Care Unavailable GIL GONZALEZ Consulting Unavailable PROVIDER, UNKNOWN Consulting Unavailable SAJI PENA DR Admitting Unavailable SAJI PENA DR Attending Unavailable ASJI PENA DR Primary Care Unavailable GIL GONZALEZ Consulting Unavailable PROVIDER, UNKNOWN Consulting Unavailable SAJI PENA DR Admitting Unavailable SAJI PENA DR Attending Unavailable SAJI PENA DR Primary Care Unavailable GIL GONZALEZ Consulting Unavailable PROVIDER, UNKNOWN Consulting Unavailable Dr. Gil Gonzalez Primary Care Provider Dr. Gil Gonzalez Referring Provider Roof FAC[employer]Y CRIMINAL JUSTICE, FACULTY CRIMINAL JUSTICE-C Judy Morales Attending Provider Dr. Gil Gonzalez Primary Care Provider Dr. Gil Gonzalez Referring Provider Roof [employer]AL JUSTICE, FACULTY CRIMINAL JUSTICE-C Jduy Morales Attending Provider Yudith FAC[employer]Y CRIMINAL JUSTICE, FACULTY CRIMINAL JUSTICE-C Attending Provider Dr. rBady Escalera Attending Provider Dr. Brady Escalera Other Provider Dr. Gil Gonzalez MD Primary Care Provider Dr. Gil Gonzalez MD Referring Provider Isis F[employer] CRIM[employer]AL JUST[employer]-C, Judy Morales Attending Provider Isis [employer]-C, Judy Morales Referring Provider Dr. Gil Gonzalez MD Primary Care Provider Melodie FAC[employer]Y CRIMINAL JUSTICE-C, Karo Attending Provider Melodie FAC[employer]Y CRIMINAL JUSTICE-C, Karo Referring Provider Jessica BROOKS, Jose Emergency Provider Dr. Gaurang Cortes MD Admit Provider Unavailable Dr. Gaurang Cortes MD Attending Provider UnavailDr. Gaurang Ramos MD Other Provider Unavailable Eamon BROOKS, Dr. Samaniego Attending Provider Dr. Gil Gonzalez MD Referring Provider Roof [employer]-C, Judy Morales Attending Provider Gil Gonzalez Primary Care Unavailable Gil Gonzalez Attending Unavailable Carlos, Gil Referring Unavailable Melodie FAC[employer] CRIMINAL JUSTICE, Karo Attending Unavailable Melodie FACULT[employer] CRIMINAL JUSTICE, Karo Referring Unavailable Gil Gonzalez Primary Care Unavailable Gaurang Cortes Admitting Unavailable Gaurang Cortes Attending Unavailable Gonzalez, Gil Primary Care Unavailable Gonzalez, Gil Primary Care Unavailable Aden Knutson Attending Unavailable Gaurang Cortes Consulting Unavailable Gaurang Cortes Attending Unavailable Gaurang Cortes Admitting Unavailable Gonzalez, Gil Primary Care Unavailable Gonzalez, Gil Referring Unavailable Gonzalez, Gil Primary Care Unavailable Roof [employer] CRIM[employer]AL JUSTICE, Judy H Attending Unavailable Gonzalez VSC, Gil Referring Unavailable Roof [employer] CRIMINAL JUSTICE, Judy H Attending Unavailable Gonzalez VSC, Gil Primary Care Unavailable Roof [employer] CRIMINAL JUSTICE, Judy H Attending Unavailable Roof F[employer] CRIMINAL JUSTICE, Judy H Referring Unavailable Gonzalez VSC, Gil Primary Care Unavailable Melodie [employer] CRIMINAL JUSTICE, Karo Attending Unavailable Melodie FAC[employer] CRIMINAL JUSTICE, Karo Referring Unavailable Gonzalez, Gil Primary Care Unavailable Eamon BROOKS, Dr. Samaniego Attending Provider Carlos BROOKS, Dr. Vasquez Referring Provider Allergies Allergy Classification Reported Allergen(s) Allergy Type Date of Onset Reaction(s) Facility (1 source) Hmg-Coa Reductase Inhibitors (Statins); Translations: [[id number] REDUCTASE INHIBITORS] Propensity to adverse reactions to drug (disorder) 8 AOF [facility] Repository (1 source) NO KNOWN ALLERGIES; Translations: [NO KNOWN ALLERGIES] Propensity to adverse reactions to drug (disorder) [facility] Repository Medications Current Medications Medication Drug Class(es) Dates Sig (Normalized) Sig (Original) aspirin 81 mg chewable tablet (20 sources) Platelet Aggregation Inhibitor, Nonsteroidal Anti-inflammatory Drug Start: 01-01-2020 End: 09-10-2021 take 1 tablet by mouth every other day Aspirin 81 mg tablet,chewable Active 81 mg PO every other day September 10, 2021 9:56am Start: 03-10-2014 End: 01-01-2020 take 1 tablet by mouth once daily Aspirin 81 MG tablet,chewable Discontinued 81 mg PO DAILY March 10, 2014 12:00am January 01, 2020 9:19am furosemide 40 mg oral tablet (20 sources) Loop Diuretic Start: 02-04-2025 take 1 tablet by mouth once daily Furosemide 40 mg tablet Active 40 mg PO daily February 04, 2025 9:32am Start: 12-13-2024 End: 02-04-2025 take 1 tablet by mouth twice daily at mealtime Furosemide 40 mg tablet Discontinued 40 mg PO TWICE DAILY WITH MEALS 120 December 13, 2024 12:06pm February 04, 2025 9:33am Start: 08-09-2024 End: 12-13-2024 take 1 tablet by mouth once daily Furosemide 40 mg tablet Discontinued 40 mg PO DAILY August 09, 2024 11:04am December 13, 2024 12:06pm Start: 12-11-2023 End: 08-09-2024 take 2 tablets by mouth once daily Furosemide 40 mg tablet Discontinued 80 mg PO DAILY 180 December 11, 2023 8:06am August 09, 2024 11:04am Start: 07-14-2023 End: 12-11-2023 take 1 tablet by mouth once daily Furosemide (Lasix) 40 mg tablet Discontinued 40 mg PO DAILY July 14, 2023 11:39am December 11, 2023 8:06am Start: 02-09-2022 End: 07-14-2023 take 2 tablets by mouth once daily Furosemide (Lasix) 40 mg tablet Discontinued 80 mg PO .COMPLEX 180 February 09, 2022 12:00pm May 06, 2022 10:51am 80 mg orally per day; Start: 03-29-2018 End: 02-09-2022 take 1 tablet by mouth once daily Furosemide (Lasix) 40 mg tablet Discontinued 40 mg PO DAILY April 22, 2021 1:37pm February 09, 2022 11:33am lisinopril 5 mg oral tablet (12 sources) Angiotensin Converting Enzyme Inhibitor Start: 07-14-2023 take 2.5 mg by mouth once daily Lisinopril 5 mg tablet Active 2.5 mg PO DAILY July 14, 2023 11:39am Start: 05-06-2022 End: 07-14-2023 take 1 tablet by mouth once daily Lisinopril 5 mg tablet Discontinued 5 mg PO DAILY May 01, 2023 1:59pm July 14, 2023 11:39am tamsulosin hydrochloride 0.4 mg oral capsule (8 sources) alpha-Adrenergic [place] Start: 01-27-2022 take 1 capsule by mouth at bedtime Tamsulosin (Flomax) 0.4 mg capsule Active 0.4 mg PO AT BEDTIME January 27, 2022 12:00am vitamin e 90 mg oral capsule (18 sources) Start: 09-14-2020 take 1 capsule by mouth once daily Vitamin E 200 unit capsule Active 200 U PO DAILY September 14, 2020 1:00am Start: 02-09-2018 End: 01-01-2020 take 1 capsule by mouth once daily Vitamin E 200 unit capsule Discontinued 200 U PO daily February 09, 2018 12:00am January 01, 2020 9:19am Completed/Discontinued Medications Medication Drug Class(es) Dates Sig (Normalized) Sig (Original) acetaminophen 325 mg / oxyCODONE hydrochloride 5 mg oral tablet (9 sources) Opioid Agonist Start: 03-18-2014 End: 08-03-2017 Oxycodone-Acetamino phen 1 TABLET tablet Discontinued 1 - 2 {tbl} PO EVERY 4 HOURS NEEDED as needed for Pain March 18, 2014 12:00am August 03, 2017 5:48pm Start: 03-18-2014 End: 08-03-2017 take 1 tablet by mouth every four hours as needed Oxycodone-Acetaminophen Discontinued 1 - 2 TABLET PO EVERY 4 HOURS NEEDED March 18, 2014 12:00am August 03, 2017 5:48pm amoxicillin 250 mg oral capsule (9 sources) Penicillin-class Antibacterial Start: 06-19-2019 End: 06-26-2019 take 1 capsule by mouth every eight hours Amoxicillin 250 MG capsule Discontinued 250 mg PO EVERY 8 HOURS June 19, 2019 1:00am June 26, 2019 11:19am cephalexin 500 mg oral capsule (9 sources) Cephalosporin Antibacterial Start: 06-20-2019 End: 06-26-2019 take 1 capsule by mouth every eight hours Cephalexin 500 MG capsule Discontinued 500 mg PO EVERY 8 HOURS June 20, 2019 1:00am June 26, 2019 11:19am clopidogrel 75 mg oral tablet (20 sources) P2Y12 Platelet Inhibitor Start: 01-01-2020 End: 11-12-2024 take 1 tablet by mouth every other day Clopidogrel 75 mg tablet Discontinued 75 mg PO every other day August 01, 2023 3:50pm November 12, 2024 4:10pm Start: 08-03-2017 End: 01-01-2020 take 1 tablet by mouth once daily Clopidogrel 75 mg tablet Discontinued 75 mg PO daily November 27, 2017 4:46pm June 25, 2018 10:33am dapagliflozin 10 mg oral tablet (3 sources) Sodium-Glucose Cotransporter 2 Inhibitor Start: 12-25-2024 End: 02-04-2025 take 1 tablet by mouth once daily in the morning Dapagliflozin Propanediol (Farxiga) 10 mg tablet Discontinued 10 mg PO .COMPLEX December 26, 2024 12:00am February 04, 2025 9:12am 10 mg orally every morning: use generic or name brand, whichever is less costly to patient.; ezetimibe 10 mg oral tablet (20 sources) Dietary Cholesterol Absorption Inhibitor Start: 06-26-2019 End: 01-01-2020 take 1 tablet by mouth once daily Ezetimibe (Zetia) 10 mg tablet Discontinued 10 mg PO DAILY June 26, 2019 1:00am January 01, 2020 9:18am Start: 02-09-2018 End: 06-25-2018 take 1 tablet by mouth once daily Ezetimibe (Zetia) 10 mg tablet Discontinued 10 mg PO daily April 18, 2018 9:47am June 25, 2018 10:32am Garlic (9 sources) Non-Standardized Food Allergenic Extract Start: 08-03-2017 End: 02-09-2018 take 500 mg by mouth once daily Garlic Discontinued 500 MG PO daily August 03, 2017 5:48pm February 09, 2018 2:05pm Start: 08-03-2017 End: 02-09-2018 take 1 capsule by mouth once daily Garlic 500 mg capsule Discontinued 500 mg PO daily August 03, 2017 1:00am February 09, 2018 2:05pm Start: 08-03-2017 End: 02-09-2018 take 500 mg by mouth once daily Garlic Discontinued 50 0 MG PO daily August 03, 2017 1:00am February 09, 2018 2:05pm 24 hr isosorbide mononitrate 60 mg extended release oral tablet (18 sources) Nitrate Vasodilator Start: 08-03-2017 End: 02-09-2018 Isosorbide Mononitrate 60 MG tablet Discontinued 30 mg PO DAILY August 03, 2017 5:47pm February 09, 2018 2:05pm Start: 08-03-2017 End: 02-09-2018 take 30 mg by mouth once daily Isosorbide Mononitrate Discontinued 30 MG PO DAILY August 03, 2017 5:47pm February 09, 2018 2:05pm Start: 03-10-2014 End: 08-03-2017 take 1 tablet by mouth once daily Isosorbide Mononitrate 60 MG tablet Discontinued 60 mg PO DAILY March 10, 2014 12:00am August 03, 2017 5:49pm 24 hr metoprolol succinate 25 mg extended release oral tablet (20 sources) beta-Adrenergic [place] Start: 03-29-2018 End: 07-14-2023 take 1 tablet by mouth once daily Metoprolol Succinate 25 mg tablet extended release 24 hr Discontinued 0 .ROUTE .COMPLEX 90 February 15, 2022 10:45am May 06, 2022 10:51am TAKE ONE TABLET BY MOUTH EVERY DAY Start: 09-07-2017 End: 02-09-2018 take 1 tablet by mouth once daily Metoprolol Tartrate 50 mg tablet Discontinued 25 mg PO TWICE A DAY December 05, 2017 7:34am February 09, 2018 2:06pm 50mg, 1/2 Tab PO QDAY Start: 09-07-2017 End: 02-09-2018 take 2 tablets by mouth once daily Metoprolol Tartrate Discontinued 25 MG PO TWICE A DAY December 05, 2017 7:34am February 09, 2018 2:06pm 50mg, 1/2 Tab PO QDAY Start: 03-10-2014 End: 09-07-2017 take 1 tablet by mouth twice daily Metoprolol Tartrate 25 MG tablet Discontinued 25 mg PO TWICE A DAY March 10, 2014 12:00am September 07, 2017 8:51am nitroglycerin 0.3 mg sublingual tablet (9 sources) Nitrate Vasodilator Start: 03-10-2014 End: 02-09-2018 Nitroglycerin 0.3 MG tablet, sublingual Discontinued 0.4 mg SL NEEDED as needed for Chest Pain March 10, 2014 12:00am February 09, 2018 2:06pm Start: 03-10-2014 End: 02-09-2018 Nitroglycerin Discontinued 0 .4 MG SL NEEDED March 10, 2014 12:00am February 09, 2018 2:06pm omega-3 fatty acids 1,250 mg capsule (9 sources) Start: 08-03-2017 End: 02-09-2018 take 1 capsule by mouth twice daily omega-3 fatty acids 1,250 mg capsule Discontinued 1250 MG PO TWICE A DAY August 03, 2017 5:48pm February 09, 2018 2:06pm Start: 08-03-2017 End: 02-09-2018 take 1 capsule by mouth twice daily [place]-3 Fatty Acids 1,250 mg capsule Discontinued 1250 mg PO TWICE A DAY August 03, 2017 1:00am February 09, 2018 2:06pm Start: 08-03-2017 End: 02-09-2018 take 1 capsule by mouth twice daily omega-3 fatty acids 1,250 mg capsule Discontinued 1250 MG PO TWICE A DAY August 03, 2017 1:00am February 09, 2018 2:06pm predniSONE 10 mg oral tablet (9 sources) Start: 03-18-2014 End: 08-03-2017 take 6 tablets by mouth once daily, then take 4 tablets by mouth once daily, then take 2 tablets by mouth once daily, then take 1 tablet by mouth once daily Prednisone 10 MG tablet Discontinued 10 mg PO DAILY March 18, 2014 12:00am August 03, 2017 5:49pm 6 po qd x 3 days, 4 po qd x 3 days, 2 po qd x 3 days, 1 po qd x 3 days sildenafil 25 mg oral tablet (2 sources) Phosphodiesterase 5 Inhibitor Start: 12-12-2024 End: 12-25-2024 take 1 tablet by mouth three times daily Sildenafil 25 mg tablet Discontinued 25 mg PO THREE TIMES A DAY December 12, 2024 12:00am December 25, 2024 10:28am Problems Active Problems Problem Classification Problem Date Documented Da te Episodic/Chronic Cardiac dysrhythmias (2 sources) Irregular heart beat; Translations: [Cardiac arrhythmia, unspecified] 02-04-2025 Chronic Complication of device; implant or graft (15 sources) Arteriosclerosis of coronary artery bypass graft; Translations: [Atherosclerosis of coronary artery bypass graft(s) without angina pectoris] Onset: 2 Chronic Comment on above: Successful placement of high-grade 95% stenosis of SVG graft to the OM1, using drug-eluting stent 3 x 18 mm to the insertion of SVG graft to the OM1(large trifurcating vessel] per cardiac cath Dr. Romero 03/29/22 ;SVG graft to CX OM 10-20% disease per cath 05/17/13 Congestive heart failure; nonhypertensive (20 sources) Acute on chronic diastolic (congestive) heart failure; Translations: [Chronic systolic heart failure] Onset: 8 Chronic Coronary atherosclerosis and other heart disease (20 sources) Atherosclerotic heart disease of [place] coronary artery without angina pectoris; Translations: [Coronary atherosclerosis] Onset: 8 Chronic Comment on above: PTCA of anastomosis of GRAJEDA to LAD January 2002; PTCA of the RCA 04/14; 11/2012 @ [facility] - patent grafts;PCI/ENE to the ostial, proximal, and mid-distal RCA 11/22/17; CABG: GRAJEDA to LAD 06/07/1996; Redo CABG GRAJEDA to LAD, SVG to RPDA 01/13 Coronary atherosclerosis and other heart disease (20 sources) Stented coronary artery; Translations: [Presence of coronary angioplasty implant and graft] Onset: 2 Episodic Comment on above: Successful placement of high-grade 95% stenosis of SVG graft to the OM1, using drug-eluting stent 3 x 18 mm to the insertion of SVG graft to the OM1(large trifurcating vessel] per cardiac cath Dr. Knutson 03/29/22 PCI/ENE to the ostia l, proximal, and mid-distal RCA 11/22/17, PCI/ENE -SVG to OM 1 on 03/29/2022 Disorders of lipid metabolism (20 sources) Other hyperlipidemia; Translations: [Hyperlipidemia, unspecified] Onset: 8 Chronic Essential hypertension (1 source) Essential (primary) hypertension; Translations: [Essential (primary) hypertension] Onset: 8 Chronic Gastrointestinal hemorrhage (1 source) Melena; Translations: [Melena] Onset: 8 Episodic Heart valve disorders (20 sources) Nonrheumatic aortic (valve) stenosis; Translations: [Presence of xenogenic heart valve] Onset: 8 Chronic Comment on above: TAVR 26mm Buckley Sa pien S3 valve 12/27/17 Hyperplasia of prostate (8 sources) Benign prostatic hyperplasia; Translations: [Benign prostatic hyperplasia without lower urinary tract symptoms] 02-04-2022 Chronic Nonspecific chest pain (9 sources) Chest pain; Translations: [Chest pain, unspecified] 04-18-2018 Episodic Osteoarthritis (3 sources) Unilateral primary osteoarthritis, left knee; Translations: [Unilateral primary osteoarthritis, left knee] Onset: 9 Chronic Other connective tissue disease (3 sources) Presence of left artificial knee joint; Translations: [Presence of left artificial knee joint] Onset: 9 Chronic Other lower respiratory disease (1 source) Acute pulmonary edema; Translations: [Acute pulmonary edema] Onset: 8 Episodic Other lower respiratory disease (18 sources) Dyspnea on exertion; Translations: [Dyspnea, unspecified] 08-09-2024 Episodic Other lower respiratory disease (4 sources) Dyspnea; Translations: [Shortness of breath] 12-12-2024 Episodic Other lower respiratory disease (4 sources) Hypoxia; Translations: [Hypoxemia] 12-12-2024 Episodic Other lower respiratory disease (1 source) Shortness of breath; Translations: [Shortness of breath] Onset: Episodic Other screening for suspected conditions (not mental disorders or infectious disease) (9 sources) Cardiovascular stress test abnormal; Translations: [Abnormal result of other cardiovascular function study] 08-09-2024 Episodic Other upper respiratory disease (9 sources) Bleeding from nose; Translations: [Epistaxis] 04-07-2022 Episodic Residual codes; unclassified (9 sources) Daytime somnolence; Translations: [Other hypersomnia] 04-07-2022 Chronic Residual codes; unclassified (5 sources) Other hypersomnia; Translations: [Hypersomnia, unspecified] Chronic Residual codes; unclassified (8 sources) Obstructive sleep apnea syndrome; Translations: [Obstructive sleep apnea (adult) (pediatric)] 08-09-2024 Chronic Comment on above: Cpap Residual codes; unclassified (4 sources) Obstructive sleep apnea (adult) (pediatric); Translations: [Obstructive sleep apnea (adult)(pediatric)] Chronic Residual codes; unclassified (4 sources) Central sleep apnea syndrome; Translations: [Primary central sleep apnea] 08-09-2024 Chronic Unclassified (1 source) Unknown / UNK(Unknown) Onset: 8 Past or Other Problems Problem Classification Problem Date Documented Da te Episodic/Chronic Medical examination/evaluation (1 source) Encounter for examination for normal comparison and control in clinical research program; Translations: [Encounter for examination for normal comparison and control in clinical research program] Onset: 11-10-2017 Episodic Other lower respiratory disease (1 source) Other forms of dyspnea; Translations: [Other forms of dyspnea] Onset: 08-09-2024 Episodic Other non-traumatic joint disorders (2 sources) Pain in left knee; Translations: [Pain in left knee] Onset: 01-11-2019 Episodic Results Test Name Value Interpretation Reference Range Facility Cardiology Visit Reporton Cardiology Visit Report [facility] [address] [place] [address] OFFICE VISIT Date of Service: 12/25/24 MR#: [id number] Acct: [id number] Name: JOSELUIS VARGAS Rep #: [id number] 29 : 1940 Provider: POLO eugene Age/Sex: 84/M Location: [facility] Status: Signed HPI HPI History of Present Illness Details: JOSELUIS VARGAS, is a 84 year old white male who presents to the office today for an outpatient cardiovascular follow-up visit. He has a history of CAD s/p PCI to ostial, proximal, and mid RCA on 11/22/2017 at [facility], previous CABG with GRAJEDA to LAD at [facility] in 1995 and redo CABG at [facility] in 2001 with SVG to LCX and SVG to RPDA, aortic valve stenosis s/p TAVR on 12/27/2017 at [facility] with #26mm Buckley Jennifer S3 valve, mitral valve regurgitation, and hyperlipidemia. He states he did have COVID-19 in late May/early June 2020. He presented to the [facility] Emergency Department based upon concerns of shortness of breath and dyspnea. He was found to have an elevated BNP level and a chest x-ray that suggested the possibility of mild CHF type findings. It appears his diuretics were adjusted, according to him, and his furosemide was increased to 80 mg a day. There were also concerns as to whether or not he was having urologic issues as well as obstructive sleep apnea issues. Thus he was placed on additional medical therapy with Flomax and has subsequently undergone a sleep study. He underwent an echocardiogram in February 2022, which demonstrated a reduced ejection fraction of 35%. Which led him to a cardiac catheterization which demonstrated [place] multivessel coronary artery disease, his GRAJEDA to LAD was patent, he did have an 85% stenosis in his SVG to OM1, and chronically occluded SVG to RCA. He underwent PCI with a drug-eluting stent to his SVG to OM1. Repeat echocardiogram in July 2022 showed ejection fraction of 45%. He was evaluated at [facility] for CHF exacerbation in December 2024. Echocardiogram showed LV function 35%. Aortic valve appeared stable. He was discharged on Lasix 20 mg p.o. daily. He denies chest, arm, jaw, or neck discomfort. He denies palpitations or bilateral lower extremity edema. He acknowledges shortness of breath with activity that improves with rest and 1-2 minutes. He denies shortness of breath at rest, cough, or orthopnea. He acknowledges dizziness associated to his shortness of breath. He denies lightheadedness, near-syncope, or syncope. He denies fatigue. 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: No Accompanied by: Son Is patient in pain?: No Allergies No Known Allergies Allergy (Verified 12/25/24 10:25) Medications ???Medication ???Instructions ???Recorded ???Confirmed ???Type vitamin E 200 unit capsule 200 unit PO DAILY 09/14/20 5 History aspirin 81 mg chewable tablet 81 mg PO Q OTHER DAY 09/10/2112/12 History tamsulosin 0.4 mg capsule (Flomax) 0.4 mg PO QHS #30 caps 01/27/22 12/25/24 Rx lisinopril 5 mg tablet 2.5 mg PO DAILY 07/14/23 12/25/24 History clopidogrel 75 mg tablet 75 mg PO Q OTHER DAY #45 tabs 04/09/0712/25/24 Rx furosemide 40 mg tablet 40 mg PO BIDCM #120 TABLETS 12/25/24 Rx dapagliflozin propanediol 10 mg 10 mg PO DAILY #30 tabs 12/25/24 0 12/25/24 Rx tablet (Farxiga) Ejection fraction %: 35 Have you fallen in the past year?: No Nurse's Note: Patient taking lasix BID works well approx 12 hours apart if that is ok with you. [facility] Medical History Daytime hypersomnolence Epistaxis Chronic systolic (congestive) heart failure Nonrheumatic aortic (valve) stenosis Abnormal stress test Dyspnea on exertion Hyperlipidemia Atherosclerotic heart disease of [place] coronary artery without angina pectoris Chest pain, unspecified Atherosclerosis of coronary artery bypass graft without angina pectoris ( 03/29/22) Surgical History Presence of coronary artery bypass graft stent ( 03/29/22) History of arthroplasty of knee H/O coronary artery bypass surgery ( 01/2002) History of left inguinal hernia repair ( 1961) Presence of stent in coronary artery Postsurgical percutaneous transluminal coronary angioplasty (PTCA) status History of aortic valve replacement with bioprosthetic valve ( 12/27/17) Family History Father Myocardial infarction CVA (cerebral vascular accide (more content not included)... Normal [facility] Basic Metabolic Profile (BMP )on 12-15-2024 BUN Normal 4-19 [facility] Comment on above: Result Comment: Canc elled via OM: Order cancelled - Patient discharged Performed By: #### L 100.0100, L500.2500 #### [facility] [address] [place], [address] BUN/CRE Normal 10-20 [facility] Comment on above: Result Comment: Canc elled via OM: Order cancelled - Patient discharged Performed By: #### L 100.0100, L500.2500 #### [facility] [address] [facility] [address] Calcium Normal 7.6-11.0 [facility] Comment on above: Result Comment: Canc elled via OM: Order cancelled - Patient discharged Performed By: #### L 100.0100, L500.2500 #### [facility] [address] [place], [address] CL Normal 98-108 [facility] Comment on above: Result Comment: Canc elled via OM: Order cancelled - Patient discharged Performed By: #### L 100.0100, L500.2500 #### [facility] [address] [place], [address] CO2 Normal 21.0-32.0 [facility] Comment on above: Result Comment: Canc elled via OM: Order cancelled - Patient discharged Performed By: #### L 100.0100, L500.2500 #### [facility] [address] [place], [address] CREAT,SERUM Normal 0.70-1.20 [facility] Comment on above: Result Comment: Canc elled via OM: Order cancelled - Patient discharged Performed By: #### L 100.0100, L500.2500 #### [facility] [address] [place], [address] eGFR Normal >60 [facility] Comment on above: Result Comment: Canc elled via OM: Order cancelled - Patient discharged Performed By: #### L 100.0100, L500.2500 #### [facility] [address] [place], [address] GAP Normal 5-15 [facility] Comment on above: Result Comment: Canc elled via OM: Order cancelled - Patient discharged Performed By: #### L 100.0100, L500.2500 #### [facility] [address] [place], [address] GLU Normal 70-99 [facility] Comment on above: Result Comment: Canc elled via OM: Order cancelled - Patient discharged Performed By: #### L 100.0100, L500.2500 #### [facility] [address] [place], [address] Potassium Normal 3.3-5.1 [facility] Comment on above: Result Comment: Canc elled via OM: Order cancelled - Patient discharged Performed By: #### L 100.0100, L500.2500 #### [facility] [address] [place], [address] Basic Metabolic Profile (BMP) Normal 133-145 [facility] Comment on above: Result Comment: Canc elled via OM: Order cancelled - Patient discharged Performed By: #### L 100.0100, L500.2500 #### [facility] [address] [place], [address] CBC W/Diff, Automatedon 05-0 -2024 Absolute Neut Normal 2.0-7.7 [facility] Comment on above: Result Comment: Canc elled via OM: Order cancelled - Patient discharged Performed By: #### L 500.2500 #### [facility] [address] [place], [address] HCT Normal 40-54 [facility] Comment on above: Result Comment: Canc elled via OM: Order cancelled - Patient discharged Performed By: #### L 500.2500 #### [facility] [address] [place], [address] HGB Normal 13.0-16.5 [facility] Comment on above: Result Comment: Canc elled via OM: Order cancelled - Patient discharged Performed By: #### L 500.2500 #### [facility] [address] [place], [address] MCH Normal 27.0-32.0 [facility] Comment on above: Result Comment: Canc elled via OM: Order cancelled - Patient discharged Performed By: #### L 500.2500 #### [facility] [address] [place], [address] MCHC Normal 32-36 [facility] Comment on above: Result Comment: Canc elled via OM: Order cancelled - Patient discharged Performed By: #### L 500.2500 #### [facility] [address] [place], [address] MCV Normal 80-94 [facility] Comment on above: Result Comment: Canc elled via OM: Order cancelled - Patient discharged Performed By: #### L 500.2500 #### [facility] [address] [place], [address] NEUT% Normal 47-70 [facility] Comment on above: Result Comment: Canc elled via OM: Order cancelled - Patient discharged Performed By: #### L 500.2500 #### [facility] [address] [place], [address] PLT Normal 150-450 [facility] Comment on above: Result Comment: Canc elled via OM: Order cancelled - Patient discharged Performed By: #### L 500.2500 #### [facility] [address] [place], [address] RBC Normal 4.6-6.2 [facility] Comment on above: Result Comment: Canc elled via OM: Order cancelled - Patient discharged Performed By: #### L 500.2500 #### [facility] [address] [place], [address] RDW CV Normal 11.6-14.6 [facility] Comment on above: Result Comment: Canc elled via OM: Order cancelled - Patient discharged Performed By: #### L 500.2500 #### [facility] [address] [place], [address] RDW SD Normal 35.1-43.9 [facility] Comment on above: Result Comment: Canc elled via OM: Order cancelled - Patient discharged Performed By: #### L 500.2500 #### [facility] [address] [place], [address] WBC Normal 4.4-11.0 [facility] Comment on above: Result Comment: Canc elled via OM: Order cancelled - Patient discharged Performed By: #### L 500.2500 #### [facility] [address] [place], [address] Basic Metabolic Profile (BMP )on 12-14-2024 BUN Normal 4-19 [facility] Comment on above: Result Comment: Canc elled via OM: Order cancelled - Patient discharged Performed By: #### L 100.0100, L500.2500 #### [facility] [address] [place], [address] BUN/CRE Normal 10-20 [facility] Comment on above: Result Comment: Canc elled via OM: Order cancelled - Patient discharged Performed By: #### L 100.0100, L500.2500 #### [facility] [address] [place], [address] Calcium Normal 7.6-11.0 [facility] Comment on above: Result Comment: Canc elled via OM: Order cancelled - Patient discharged Performed By: #### L 100.0100, L500.2500 #### [facility] [address] [place], [address] CL Normal 98-108 [facility] Comment on above: Result Comment: Canc elled via OM: Order cancelled - Patient discharged Performed By: #### L 100.0100, L500.2500 #### [facility] [address] [place], [address] CO2 Normal 21.0-32.0 [facility] Comment on above: Result Comment: Canc elled via OM: Order cancelled - Patient discharged Performed By: #### L 100.0100, L500.2500 #### [facility] [address] [place], [address] CREAT,SERUM Normal 0.70-1.20 [facility] Comment on above: Result Comment: Canc elled via OM: Order cancelled - Patient discharged Performed By: #### L 100.0100, L500.2500 #### [facility] [address] [place], [address] eGFR Normal >60 [facility] Comment on above: Result Comment: Canc elled via OM: Order cancelled - Patient discharged Performed By: #### L 100.0100, L500.2500 #### [facility] [address] [place], [address] GAP Normal 5-15 [facility] Comment on above: Result Comment: Canc elled via OM: Order cancelled - Patient discharged Performed By: #### L 100.0100, L500.2500 #### [facility] [address] [place], [address] GLU Normal 70-99 [facility] Comment on above: Result Comment: Canc elled via OM: Order cancelled - Patient discharged Performed By: #### L 100.0100, L500.2500 #### [facility] [address] [place], [address] Potassium Normal 3.3-5.1 [facility] Comment on above: Result Comment: Canc elled via OM: Order cancelled - Patient discharged Performed By: #### L 100.0100, L500.2500 #### [facility] [address] [place], [address] Basic Metabolic Profile (BMP) Normal 133-145 [facility] Comment on above: Result Comment: Canc elled via OM: Order cancelled - Patient discharged Performed By: #### L 100.0100, L500.2500 #### [facility] [address] [place], [address] CBC W/Diff, Automatedon 05-0 -2024 Absolute Neut Normal 2.0-7.7 [facility] Comment on above: Result Comment: Canc elled via OM: Order cancelled - Patient discharged Performed By: #### L 100.0100, L500.2500 #### [facility] [address] [place], [address] HCT Normal 40-54 [facility] Comment on above: Result Comment: Canc elled via OM: Order cancelled - Patient discharged Performed By: #### L 100.0100, L500.2500 #### [facility] [address] [place], [address] HGB Normal 13.0-16.5 [facility] Comment on above: Result Comment: Canc elled via OM: Order cancelled - Patient discharged Performed By: #### L 100.0100, L500.2500 #### [facility] [address] [place], [address] MCH Normal 27.0-32.0 [facility] Comment on above: Result Comment: Canc elled via OM: Order cancelled - Patient discharged Performed By: #### L 100.0100, L500.2500 #### [facility] [address] [place], [address] MCHC Normal 32-36 [facility] Comment on above: Result Comment: Canc elled via OM: Order cancelled - Patient discharged Performed By: #### L 100.0100, L500.2500 #### [facility] [address] [place], [address] MCV Normal 80-94 [facility] Comment on above: Result Comment: Canc elled via OM: Order cancelled - Patient discharged Performed By: #### L 100.0100, L500.2500 #### [facility] [address] [place], [address] NEUT% Normal 47-70 [facility] Comment on above: Result Comment: Canc elled via OM: Order cancelled - Patient discharged Performed By: #### L 100.0100, L500.2500 #### [facility] [address] [place], [address] PLT Normal 150-450 [facility] Comment on above: Result Comment: Canc elled via OM: Order cancelled - Patient discharged Performed By: #### L 100.0100, L500.2500 #### [facility] [address] [place], [address] RBC Normal 4.6-6.2 [facility] Comment on above: Result Comment: Canc elled via OM: Order cancelled - Patient discharged Performed By: #### L 100.0100, L500.2500 #### [facility] [address] [place], [address] RDW CV Normal 11.6-14.6 [facility] Comment on above: Result Comment: Canc elled via OM: Order cancelled - Patient discharged Performed By: #### L 100.0100, L500.2500 #### [facility] [address] [place], [address] RDW SD Normal 35.1-43.9 [facility] Comment on above: Result Comment: Canc elled via OM: Order cancelled - Patient discharged Performed By: #### L 100.0100, L500.2500 #### [facility] [address] [place], [address] WBC Normal 4.4-11.0 [facility] Comment on above: Result Comment: Canc elled via OM: Order cancelled - Patient discharged Performed By: #### L 100.0100, L500.2500 #### [facility] [address] [place], [address] Absolute lymphocyte countOrd ered By: Gaurang Cortes on 12-13-2024 Lymphocytes Auto (Unsp spec) [#/Vol] 2.14 10*3/uL 0.83-4.51 [facility] Absolute neutrophil countOrd ered By: Gaurang Cortes on 12-13-2024 Neutrophils (Bld) [#/Vol] 2.8 10*3/uL 2.0-7.7 [facility] Anion gap in Serum or Plasma Ordered By: Gaurang Cortes on 12-13-2024 Anion gap [Moles/Vol] 11 mmol/L 5-15 [facility] Automated lymphocyte count a s percentage of total leukocytesOrdered By: Gaurang Cortes on 12-13-2024 Lymphocytes/100 WBC Auto (Unsp spec) 36.5 % 19-41 [facility] BUN/creatinine ratioOrdered By: Gaurang Cortes on 12-13-2024 Urea nitrogen/Creatinine [Mass ratio] 32.6 mg/mg High 10-20 [facility] Basic Metabolic Profile (BMP )on 12-13-2024 BUN/CRE 32.6 RATIO High 10 [facility] Comment on above: Performed By: #### L 100.0100, L500.2500 #### [facility] [address] [place], [address] Calcium [Mass/Vol] 9.1 mg/dL Normal 7.6-11.0 [facility] Comment on above: Performed By: #### L 100.0100, L500.2500 #### [facility] [address] [place], [address] Chloride [Moles/Vol] 101 mmol/L Normal 98-108 [facility] Comment on above: Performed By: #### L 100.0100, L500.2500 #### [facility] [address] [place], [address] CO2 [Moles/Vol] 24.2 mmol/L Normal 21.0-32.0 [facility] Comment on above: Performed By: #### L 100.0100, L500.2500 #### [facility] [address] [place], [address] Creatinine [Mass/Vol] 1.56 mg/dL High 0.70-1.20 [facility] Comment on above: Performed By: #### L 100.0100, L500.2500 #### [facility] [address] [place], [address] ECRCL 35.16 ml/min Low 50-250 [facility] Comment on above: Performed By: #### L 100.0100, L500.2500 #### [facility] [address] [place], [address] GAP 11 Normal 5-15 [facility] Comment on above: Performed By: #### L 100.0100, L500.2500 #### [facility] [address] [place], [address] GFR/1.73 sq M.predicted among non-blacks MDRD (S/P/Bld) [Vol rate/Area] 44 mL/min/{1.73_m2} Low >60 [facility] Comment on above: Result Comment: mL/m in/1.73m2 CKD-EPI Creatinine Equation (2020) Performed By: #### L 100.0100, L500.2500 #### [facility] [address] [place], [address] Glucose [Mass/Vol] 100 mg/dL High 70-99 [facility] Comment on above: Performed By: #### L 100.0100, L500.2500 #### [facility] [address] [place], [address] Potassium [Moles/Vol] 4.3 mmol/L Normal 3.3-5.1 [facility] Comment on above: Performed By: #### L 100.0100, L500.2500 #### [facility] [address] [place], [address] Sodium [Moles/Vol] 137 mmol/L Normal 133-145 [facility] Comment on above: Performed By: #### L 100.0100, L500.2500 #### [facility] [address] [place], [address] Urea nitrogen [Mass/Vol] 51 mg/dL High 4-19 [facility] Comment on above: Performed By: #### L 100.0100, L500.2500 #### [facility] [address] [place], [address] Basophil percentageOrdered B y: Gaurang Cortes on 12-13-2024 Basophils/100 WBC (Bld) 0.5 % 0-1 [facility] CBC W/Diff, Automatedon Absolute Lymph 2.14 X10 3/uL Normal 0.83-4.51 [facility] Comment on above: Performed By: #### L 100.0100, L500.2500 #### [facility] [address] [place], [address] Absolute Neut 2.8 X10 3/uL Normal 2.0-7.7 [facility] Comment on above: Performed By: #### L 100.0100, L500.2500 #### [facility] [address] [place], [address] Basophils/100 WBC (Bld) 0.5 % Normal 0-1 [facility] Comment on above: Performed By: #### L 100.0100, L500.2500 #### [facility] [address] [place], [address] Eosinophils/100 WBC (Bld) 4.9 % Normal 0-5 [facility] Comment on above: Performed By: #### L 100.0100, L500.2500 #### [facility] [address] [place], [address] Erythrocyte distribution width (RBC) [Ratio] 14.9 % High 11.6-14.6 [facility] Comment on above: Performed By: #### L 100.0100, L500.2500 #### [facility] [address] [place], [address] Hematocrit (Bld) [Volume fraction] 32.2 % Low 40-54 [facility] Comment on above: Performed By: #### L 100.0100, L500.2500 #### [facility] [address] [place], [address] Hemoglobin (Bld) [Mass/Vol] 10.8 g/dL Low 13.0-16.5 [facility] Comment on above: Performed By: #### L 100.0100, L500.2500 #### [facility] [address] [place], [address] IG% 0.200 Normal 0.0-0.9 [facility] Comment on above: Result Comment: IG% - Immature Granulocytes (promyelocytes, myelocytes and metamyelocytes) > 1% indicates that a LEFT SHIFT is Present. Performed By: #### L 100.0100, L500.2500 #### [facility] [address] [place], [address] Lymphocytes/100 WBC (Bld) 36.5 % Normal 19-41 [facility] Comment on above: Performed By: #### L 100.0100, L500.2500 #### [facility] [address] [place], [address] MCH (RBC) [Entitic mass] 30.0 pg Normal 27.0-32.0 [facility] Comment on above: Performed By: #### L 100.0100, L500.2500 #### [facility] [address] [place] [place], [address] MCHC (RBC) [Mass/Vol] 33.5 g/dL Normal 32-36 [facility] Comment on above: Performed By: #### L 100.0100, L500.2500 #### [facility] [address] [place], [address] MCV (RBC) [Entitic vol] 89.4 fL Normal 80-94 [facility] Comment on above: Performed By: #### L 100.0100, L500.2500 #### [facility] [address] [place], [address] Monocytes/100 WBC (Bld) 10.9 % High 0-10 [facility] Comment on above: Performed By: #### L 100.0100, L500.2500 #### [facility] [address] [place], [address] Neutrophils/100 WBC (Bld) 47.0 % Normal 47-70 [facility] Comment on above: Performed By: #### L 100.0100, L500.2500 #### [facility] [address] [place], [address] Nucleated RBC (Bld) [#/Vol] 0 10*3/uL Normal 0-5 [facility] Comment on above: Performed By: #### L 100.0100, L500.2500 #### [facility] [address] [place], [address] Platelet mean volume (Bld) [Entitic vol] 10.7 fL Normal 6.2-12.0 [facility] Comment on above: Performed By: #### L 100.0100, L500.2500 #### [facility] [address] [place], [address] Platelets (Bld) [#/Vol] 157 10*3/uL Normal 150-450 [facility] Comment on above: Performed By: #### L 100.0100, L500.2500 #### [facility] [address] [place], [address] RBC (Bld) [#/Vol] 3.60 10*6/uL Low 4.6-6.2 [facility] Comment on above: Performed By: #### L 100.0100, L500.2500 #### [facility] [address] [place], [address] RDW SD 49.4 fl High 35.1-43.9 [facility] Comment on above: Performed By: #### L 100.0100, L500.2500 #### [facility] [address] [place], [address] WBC (Bld) [#/Vol] 5.9 10*3/uL Normal 4.4-11.0 [facility] Comment on above: Performed By: #### L 100.0100, L500.2500 #### [facility] [address] [place], [address] Carbon dioxide, total [Moles /volume] in Central venous bloodOrdered By: Gaurang Cortes on 12-13-2024 CO2 [Moles/Vol] 24.2 mmol/L 21.0-32.0 [facility] Chloride assayOrdered By: Vic Cortes on 12-13-2024 Chloride [Moles/Vol] 101 mmol/L 98-108 [facility] Eosinophil percentageOrdered By: Gaurang Cortes on 12-13-2024 Eosinophils/100 WBC (Bld) 4.9 % 0-5 [facility] Erythrocyte distribution wid th ratioOrdered By: Gaurang Cortes on 12-13-2024 Erythrocyte distribution width (RBC) [Ratio] 14.9 % High 11.6-14.6 [facility] Erythrocyte distribution wid th standard deviationOrdered By: Gaurang Cortes on 12-13-2024 Erythrocyte distribution width (RBC) [Ratio] 49.4 fl High 35.1-43.9 [facility] Glomerular filtration rate ( GFR) estimation/1.73 sq m using serum, plasma, or whole bOrdered By: Gaurang Cortes on 12-13-2024 GFR/1.73 sq M.predicted among non-blacks MDRD (S/P/Bld) [Vol rate/Area] 44 mL/min/{1.73_m2} Low >60 [facility] Comment on above: mL/min/1.73m2 CKD-EP I Creatinine Equation (2020) Hematocrit Auto (Bld) [Volum e fraction]Ordered By: Gaurang Cortes on 12-13-2024 Hematocrit (Bld) [Volume fraction] 32.2 % Low 40-54 [facility] Hemoglobin measurementOrdere d By: Gaurang Cortes on 12-13-2024 Hemoglobin (Bld) [Mass/Vol] 10.8 g/dL Low 13.0-16.5 [facility] Immature granulocytes/100 WB C Auto (Bld)Ordered By: Gaurang Cortes on 12-13-2024 Immature granulocytes/100 WBC (Bld) 0.200 % 0.0-0.9 [facility] Comment on above: IG% - Immature Granu locytes (promyelocytes, myelocytes and metamyelocytes) > 1% indicates that a LEFT SHIFT is Present. MCV (mean corpuscular volume ) determinationOrdered By: Gaurang Cortes on 12-13-2024 MCV (RBC) [Entitic vol] 89.4 fL 80-94 [facility] Magnesiumon 12-13-2024 Magnesium [Mass/Vol] 2.5 mg/dL High 1.5-2.2 [facility] Comment on above: Performed By: #### L 100.0100, L500.2500 #### [facility] [address] [place], [address] Magnesium measurement (mass/ volume)Ordered By: Gaurang Cortes on 12-13-2024 Magnesium (Unsp spec) [Mass/Vol] 2.5 mg/dL High 1.5-2.2 [facility] Mean corpuscular hemoglobin (MCH) determinationOrdered By: Gaurang Cortes on 12-13-2024 MCH (RBC) [Entitic mass] 30.0 pg 27.0-32.0 [facility] Mean corpuscular hemoglobin concentration (MCHC) determinationOrdered By: Gaurang Cortes on 12-13-2024 MCHC (RBC) [Mass/Vol] 33.5 g/dL 32-36 [facility] Mean platelet volume determi nationOrdered By: Gaurang Cortes on 12-13-2024 Platelet mean volume (Bld) [Entitic vol] 10.7 fL 6.2-12.0 [facility] Monocyte percentageOrdered B y: Gaurang Cortes on 12-13-2024 Monocytes/100 WBC (Bld) 10.9 % High 0-10 [facility] Neutrophil percentageOrdered By: Gaurang Cortes on 12-13-2024 Neutrophils/100 WBC (Bld) 47.0 % 47-70 [facility] Nucleated red blood cell per centageOrdered By: Gaurang Cortes on 12-13-2024 Nucleated RBC/100 WBC (Bld) [Ratio] 0 % 0-5 [facility] Phosphoruson 12-13-2024 Phosphate [Mass/Vol] 3.6 mg/dL Normal 2.7-4.5 [facility] Comment on above: Performed By: #### L 100.0100, L500.2500 #### [facility] [address] [place], [address] Platelet countOrdered By: Vic Cortes on 12-13-2024 Platelets (Bld) [#/Vol] 157 10*3/uL 150-450 [facility] Potassium measurement (mass/ volume)Ordered By: Gaurang Cortes on 12-13-2024 Potassium (Unsp spec) [Mass/Vol] 4.3 mmol/L 3.3-5.1 [facility] RBC Auto (Bld) [#/Vol]Ordere d By: Gaurang Cortes on 12-13-2024 RBC (Bld) [#/Vol] 3.60 10*6/uL Low 4.6-6.2 [facility] Serum creatinine measurement (mass/volume)Ordered By: Gaurang Cortes on 12-13-2024 Creatinine [Mass/Vol] 1.56 mg/dL High 0.70-1.20 [facility] Serum glucose measurement (m ass/volume)Ordered By: Gaurang Cortes on 12-13-2024 Glucose [Mass/Vol] 100 mg/dL High 70-99 [facility] Serum or plasma calcium kelli urement (mass/volume)Ordered By: Gaurang Cortes on 12-13-2024 Calcium [Mass/Vol] 9.1 mg/dL 7.6-11.0 [facility] Serum or plasma urea nitroge n measurement (mass/volume)Ordered By: Gaurang Cortes on 12-13-2024 Urea nitrogen [Mass/Vol] 51 mg/dL High 4-19 [facility] Sodium levelOrdered By: Sebastien Cortes on 12-13-2024 Sodium [Moles/Vol] 137 mmol/L 133-145 [facility] White blood cell (WBC) count Ordered By: Gaurang Cortes on 12-13-2024 WBC (Bld) [#/Vol] 5.9 10*3/uL 4.4-11.0 [facility] 12 Lead EKGon 12-12-2024 12 Lead EKG [facility] [address] [place] [address] 12 Lead EKG 12/12/24 0737 MR#: [id number] Acct: [id number] Name: JOSELUIS VARGAS Rep #: [id number] : 1940 84 From: Cj Gardiner MD Attending Dr: Dr. Gaurang Cortes MD Status: ADM IN Ordering Dr: Jose Lopez MD Date: 12/12/24 Location: [facility] Sex: M C Admitted: 12/12/24 Test Reason : sob Blood Pressure : */* mmHG Vent. Rate : 75 BPM Atrial Rate : 75 BPM P-R Int : 270 ms QRS Dur : 96 ms QT Int : 402 ms P-R-T Axes : 24 2 135 degrees QTcB Int : 448 ms Sinus rhythm with 1st degree A-V block with Fusion complexes and Premature atrial complexes with Aberrant conduction Possible Inferior infarct , age undetermined T wave abnormality, consider lateral ischemia Abnormal ECG Confirmed by CARLA BROOKS, CJ ([id number]), supervisor receiving and processing SAMMI LIMA ([id number]) on 12/12/2024 1:30:33 PM Referred By: Confirmed By: CJ GARDINER MD 12/12/24 1330 Date Cj Gardiner MD CC: Dr. Jose Lopez MD; Dr. Gaurang Cortes MD; Dr. Gil Gonzalez MD Signed [facility] Basic Metabolic Profile (BMP )on 12-12-2024 BUN/CRE 32.4 RATIO High 10-20 [facility] Comment on above: Performed By: #### L 100.0100, L500.2500 #### [facility] [address] [facility] [place], [address] Calcium [Mass/Vol] 9.0 mg/dL Normal 7.6-11.0 [facility] Comment on above: Performed By: #### L 100.0100, L500.2500 #### [facility] [address] [place], [address] Chloride [Moles/Vol] 100 mmol/L Normal 98-108 [facility] Comment on above: Performed By: #### L 100.0100, L500.2500 #### [facility] [address] [place], [address] CO2 [Moles/Vol] 19.4 mmol/L Low 21.0-32.0 [facility] Comment on above: Performed By: #### L 100.0100, L500.2500 #### [facility] [address] [place], [address] Creatinine [Mass/Vol] 1.66 mg/dL High 0.70-1.20 [facility] Comment on above: Performed By: #### L 100.0100, L500.2500 #### [facility] [address] [place], [address] ECRCL 33.42 ml/min Low 50-250 [facility] Comment on above: Performed By: #### L 100.0100, L500.2500 #### [facility] [address] [place], [address] GAP 14 Normal 5-15 [facility] Comment on above: Performed By: #### L 100.0100, L500.2500 #### [facility] [address] [place], [address] GFR/1.73 sq M.predicted among non-blacks MDRD (S/P/Bld) [Vol rate/Area] 40 mL/min/{1.73_m2} Low >60 [facility] Comment on above: Result Comment: mL/m in/1.73m2 CKD-EPI Creatinine Equation (2021) Performed By: #### L 100.0100, L500.2500 #### [facility] [address] [place], [address] Glucose [Mass/Vol] 100 mg/dL High 70-99 [facility] Comment on above: Performed By: #### L 100.0100, L500.2500 #### [facility] [address] [place], [address] Potassium [Moles/Vol] 4.3 mmol/L Normal 3.3-5.1 [facility] Comment on above: Performed By: #### L 100.0100, L500.2500 #### [facility] [address] [place], [address] Sodium [Moles/Vol] 133 mmol/L Normal 133-145 [facility] Comment on above: Performed By: #### L 100.0100, L500.2500 #### [facility] [address] [place], [address] Urea nitrogen [Mass/Vol] 54 mg/dL High 4-19 [facility] Comment on above: Performed By: #### L 100.0100, L500.2500 #### [facility] [address] [place], [address] CBC W/Diff, Automatedon 05-0 1-2024 Absolute Lymph 2.50 X10 3/uL Normal 0.83-4.51 [facility] Comment on above: Performed By: #### L 100.0100, L500.2500 #### [facility] [address] [place], [address] Absolute Neut 3.3 X10 3/uL Normal 2.0-7.7 [facility] Comment on above: Performed By: #### L 100.0100, L500.2500 #### [facility] [address] [place], [address] Basophils/100 WBC (Bld) 0.4 % Normal 0-1 [facility] Comment on above: Performed By: #### L 100.0100, L500.2500 #### [facility] [address] [place], [address] Eosinophils/100 WBC (Bld) 5.4 % High 0-5 [facility] Comment on above: Performed By: #### L 100.0100, L500.2500 #### [facility] [address] [place], [address] Erythrocyte distribution width (RBC) [Ratio] 14.8 % High 11.6-14.6 [facility] Comment on above: Performed By: #### L 100.0100, L500.2500 #### [facility] [address] [place], [address] Hematocrit (Bld) [Volume fraction] 32.1 % Low 40-54 [facility] Comment on above: Performed By: #### L 100.0100, L500.2500 #### [facility] [address] [place], [address] Hemoglobin (Bld) [Mass/Vol] 11.0 g/dL Low 13.0-16.5 [facility] Comment on above: Performed By: #### L 100.0100, L500.2500 #### [facility] [address] [place], [address] IG% 0.300 Normal 0.0-0.9 [facility] Comment on above: Result Comment: IG% - Immature Granulocytes (promyelocytes, myelocytes and metamyelocytes) > 1% indicates that a LEFT SHIFT is Present. Performed By: #### L 100.0100, L500.2500 #### [facility] [address] [place], [address] Lymphocytes/100 WBC (Bld) 36.4 % Normal 19-41 [facility] Comment on above: Performed By: #### L 100.0100, L500.2500 #### [facility] [address] [place], [address] MCH (RBC) [Entitic mass] 30.4 pg Normal 27.0-32.0 [facility] Comment on above: Performed By: #### L 100.0100, L500.2500 #### [facility] [address] [place], [address] MCHC (RBC) [Mass/Vol] 34.3 g/dL Normal 32-36 [facility] Comment on above: Performed By: #### L 100.0100, L500.2500 #### [facility] [address] [place], [address] MCV (RBC) [Entitic vol] 88.7 fL Normal 80-94 [facility] Comment on above: Performed By: #### L 100.0100, L500.2500 #### [facility] [address] [place], [address] Monocytes/100 WBC (Bld) 10.2 % High 0-10 [facility] Comment on above: Performed By: #### L 100.0100, L500.2500 #### [facility] [address] [place], [address] Neutrophils/100 WBC (Bld) 47.3 % Normal 47-70 [facility] Comment on above: Performed By: #### L 100.0100, L500.2500 #### [facility] [address] [place], [address] Nucleated RBC (Bld) [#/Vol] 0 10*3/uL Normal 0-5 [facility] Comment on above: Performed By: #### L 100.0100, L500.2500 #### [facility] [address] [place], [address] Platelet mean volume (Bld) [Entitic vol] 10.8 fL Normal 6.2-12.0 [facility] Comment on above: Performed By: #### L 100.0100, L500.2500 #### [facility] [address] [place], [address] Platelets (Bld) [#/Vol] 138 10*3/uL Low 150-450 [facility] Comment on above: Performed By: #### L 100.0100, L500.2500 #### [facility] [address] [place], [address] RBC (Bld) [#/Vol] 3.62 10*6/uL Low 4.6-6.2 [facility] Comment on above: Performed By: #### L 100.0100, L500.2500 #### [facility] [address] [place], [address] RDW SD 48.0 fl High 35.1-43.9 [facility] Comment on above: Performed By: #### L 100.0100, L500.2500 #### [facility] [address] [place], [address] WBC (Bld) [#/Vol] 6.9 10*3/uL Normal 4.4-11.0 [facility] Comment on above: Performed By: #### L 100.0100, L500.2500 #### [facility] [address] [place], [address] Chest PA and Lateralon 12-12 Chest PA and Lateral [facility] [address] [place] [address] Chest PA and Lateral MR#: [id number] Acct: [id number] Name: JOSELUIS VARGAS Rep #: [id number] : 1940 M 84 From: Luis Mora MD PCP: Dr. Gil Gonzalez MD Status: REG ER Study: Chest PA and Lateral Date of Exam: 12/12/24 Exam# [id number] Ordering Dr: Jose Lopez MD PROCEDURE: CHEST PA AND LATERAL 12/12/2024 REASON FOR EXAM: SHORTNESS OF BREATH TECHNIQUE: Frontal and lateral views of the chest. COMPARISON: January 27, 2022 FINDINGS: Sternotomy wires, a cardiac stent, and vascular clips are noted, unchanged. Heart size is upper normal. Central vascularity appears within normal limits. Lung volumes appear increased. There are bilateral perihilar infiltrates with no focal consolidation. There is no pneumothorax or effusion. There is no visible acute bony abnormality. Aortic calcifications are noted. RAD/Chest PA and Lateral IMPRESSION: Lung volumes appear increased. There are bilateral perihilar infiltrates with no focal consolidation. Reading Location: [facility] CC: Dr. Jose Lopez MD; Dr. Gil Gonzalez MD Plumber: Signed [facility] Echo Complete W/ Contraston 12-12-2024 Echo Complete W/ Contrast [facility] [address] [place] [address] Echo Complete W/ Contrast 12/12/24 1104 MR#: [id number] Acct: [id number] Name: JOSELUIS VARGAS Rep #: [id number] : 1940 84 From: Aden Knutson MD Attending Dr: Dr. Gaurang Cortes MD Status: ADM IN Ordering Dr: Gaurang Cortes MD Date: 12/12/24 Location: PCU Sex: M C Admitted: 12/12/24 Reason For Study Reason For Study: DYSPNEA/SOB Procedure This was a 2D Doppler, Color Flow transthoracic echocardiogram. The study was technically difficult. Contrast injection was performed. Exam performed portable in patient room. Left Ventricle Mildly dilated left ventricle. Moderate global left ventricular systolic dysfunction. The estimated ejection fraction is 35 %. Stage 1 diastolic dysfunction. Right Ventricle Normal RV size. Normal systolic function. Atria The left atrium is mildly enlarged. Normal right atrium. Mitral Valve Mild mitral annular calcification. Moderate (2+) mitral valve insufficiency. Tricuspid Valve Normal tricuspid valve. Mild to moderate (1-2+) tricuspid valve insufficiency. Pulmonary artery systolic pressure is 54 mmHg. Aortic Valve Stable appearing bioprosthetic aortic valve apparatus. Pulmonic Valve Normal pulmonic valve. Great Vessels Normal sized aortic root. Pericardium/Pleural No pericardial effusion. Medication Diluted definity 2.5ml given slow IV push to enhance endocardial definition. MMode/2D Measurements Calculations LVIDd: 5.8 cm IVSd: 1.1 cm Ao root diam: 3.2 cm LVIDs: 4.8 cm LVPWd: 0.78 cm RVDd: 3.6 cm FS: 18.2 % asc Aorta Diam: 3.7 cm LAV(MOD-bp): 84.5 ml LVAd ap4: 50.3 cm2 LAV(MOD-bp) Indexed: 44.0 ml/m2 LVLd ap4: 9.9 cm LAV(MOD-sp2): 85.4 ml EDV(MOD-sp4): 213.3 ml LAV(MOD-sp4): 86.4 ml EDV(sp4-el): 217.7 ml LVAs ap4: 41.0 cm2 LVLs ap4: 8.9 cm ESV(MOD-sp4): 157.6 ml ESV(sp4-el): 161.1 ml EF(MOD-sp4): 26.1 % EF(sp4-el): 26.0 % SV(MOD-sp4): 55.7 ml SV(sp4-el): 56.6 ml LA A4 area: 24.8 cm2 SI(MOD-sp4): 29.0 ml/m2 LA dimension(2D): 4.7 cm RA A4 area: 15.6 cm2 TAPSE: 1.8 cm Time Measurements MV dec time: 0.15 sec Doppler Measurements Calculations MV E max adri: 113.0 cm/sec MV V2 max: 121.2 cm/sec MV P1/2t max adri: 104.8 cm/sec MV A max adri: 82.3 cm/sec MV max P.9 mmHg MV P1/2t: 78.6 msec MV E/A: 1.4 MV V2 mean: 68.0 cm/sec MV dec slope: 390.5 cm/sec2 MV mean P.2 mmHg MV V2 VTI: 31.2 cm MVA(P1/2t): 2.8 cm2 Ao V2 max: 203.1 cm/sec LV V1 max: 85.5 cm/sec MR max adri: 473.8 cm/sec Ao max P.5 mmHg LV V1 max P.9 mmHg MR max P.8 mmHg Ao V2 mean: 151.0 cm/sec LV V1 mean P.8 mmHg MR mean adri: 372.7 cm/sec Ao mean P.9 mmHg LV V1 mean: 63.7 cm/sec MR mean P.1 mmHg Ao V2 VTI: 49.1 cm LV V1 VTI: 20.9 cm MR VTI: 163.8 cm AV (velocity ratio): 0.43 PA V2 max: 99.7 cm/sec TR max adri: 337.3 cm/sec PA V2 mean: 73.5 cm/sec TR max P.5 mmHg ECHO/Echo Complete W/ Contrast Interpretation Summary Stage 1 diastolic dysfunction. Mildly dilated left ventricle. The estimated ejection fraction is 35 %. The left atrium is mildly enlarged. Moderate (2+) mitral valve insufficiency. Mild to moderate (1-2+) tricuspid valve insufficiency. Stable appearing bioprosthetic aortic valve apparatus. Ordering Physician: Gaurang Cortes Referring Physician: Gil Gonzalez Performed By: Jenny Zhong, RONDACS, RVT 12/12/24 0662 Date Aden Knutson MD CC: Dr. Gaurang Cortes MD; Dr. Gil Gonzalez MD Date Dictated: 12/12/24 1104 Date Transcribed: 12/12/24 305 Plumber: Signed [facility] Emergency Department Summary on 12-12-2024 Emergency Department Summary [facility] Medical Records Department [address] [place] [address] Emergency Department Summary 12/12/24 MR#: [id number] Acct: [id number] Name: JOSELUIS VARGAS Rep #: [id number] : 1940 84 From: Jose Lopez MD PCP: Dr. Gil Gonzalez MD Status:REG ER Location: ED HPI History of Present Illness Chief Complaint: Shortness of Breath Narrative Narrative: 84-year-old male past medical history of congestive heart failure, coronary artery disease, on Lasix presents with increasing shortness of breath. He relates history that for quite some time, he has had problems with shortness of breath. He had open heart surgery and is on Lasix and sees [place] cardiology. He denies any weight gain or leg swelling but states that over the last few days to weeks he has had increasing dyspnea on exertion. He has to rest even after taking a shower. He denies any fevers or chills, no cough. He states he saw his primary care provider who put him on sildenafil to help with his lung problems. He states that he is getting frustrated because he is having increasing dyspnea on exertion. [facility] Medical History Daytime hypersomnolence Epistaxis Chronic systolic (congestive) heart failure Nonrheumatic aortic (valve) stenosis Abnormal stress test Dyspnea on exertion Hyperlipidemia Atherosclerotic heart disease of [place] coronary artery without angina pectoris Chest pain, unspecified Atherosclerosis of coronary artery bypass graft without angina pectoris ( 03/29/22) Home Medications ???Medication ???Instructions ???Recorded ???Last Taken ???Type vitamin E 200 unit capsule 200 unit PO DAILY 09/14/20 Unknown History aspirin 81 mg chewable tablet 81 mg PO Q OTHER DAY 09/10/2103/14 History tamsulosin 0.4 mg capsule (Flomax) 0.4 mg PO QHS #30 caps 01/27/22 Unknown Rx lisinopril 5 mg tablet 2.5 mg PO DAILY 07/14/23 Unknown H istory furosemide 40 mg tablet 40 mg PO DAILY 08/09/24 Unknown Hi story clopidogrel 75 mg tablet 75 mg PO Q OTHER DAY #45 tabs 09/07 Unknown Rx sildenafil 25 mg tablet 25 mg PO TID 12/12/24 Unknown Hist ory Allergy/AdvReac Type Severity Reaction Status Date / Time No Known Allergies Allergy Verified 12/12/24 07:29 Family History Father Myocardial infarction CVA (cerebral vascular accident) Mother CHF (congestive heart failure) Brother CAD (coronary artery disease) Cancer leukemia Surgical History Presence of coronary artery bypass graft stent ( 03/29/22) History of arthroplasty of knee H/O coronary artery bypass surgery ( 01/2002) History of left inguinal hernia repair ( 1961) Presence of stent in coronary artery Postsurgical percutaneous transluminal coronary angioplasty (PTCA) status History of aortic valve replacement with bioprosthetic valve ( 12/27/17) Social History adopted: No household members: spouse housing: house number of children: 6 current occupational status: employed current occupation: [employer] current occupational exposures/hazards: No pets and animals: Yes (chickens 2 and 1 horse) leisure activities: hunting and fishing history of recent travel: No Smoking Status: Never smoker alcohol intake: never substance use type: does not use caffeine: No what type of physical activity do you participate in: walking frequency: 5-6 times per week duration: 30-45 minutes/day seatbelt use: sometimes do you feel safe at home: Yes ROS ROS ED ROS Narrative Constitutional: No fever, no chills. HEENT: No sore throat. No neck pain. No rhinorrhea. Cardiovascular: No chest pain. No palpitations. No pedal edema. Respiratory: No cough, increasing dyspnea on exertion and shortness of breath. Abdominal: No abdominal pain. No nausea. No vomiting. Musculoskeletal: No myalgias. No arthralgias. Neurologic: No headaches. No dizziness. No lightheadedness. EXAM Physical Exam Narrative Exam Narrative: Afebrile. Vital signs noted. SPO2 100% on room air. Nontoxic-appearing. Cardiovascular examination reveals a regular rate and rhythm. Lungs are clear to auscultation bilaterally, moving a good amount of air. Abdomen is soft, nontender without guarding or rebound. Positive bowel sounds. Neurological examination nonfocal, nonlateralizing. No pedal edema. Const Vital Signs: 12/12/24 07:29 12/12/24 07:41 12/12/24 08:01 Temperature 98.1 F Temperature Source Oral Pulse Rate 71 Respiratory Rate 18 Respiratory Effort Short of Breath Blood Pressure 108/71 Blood Pressure Mean 83 Pulse Ox 99 Oxygen Delivery Method Room Air Room Air (more content not included)... [facility] H AND P Exam - [facility] 12-12-2024 H&P Exam - Hospitalist [facility] Medical Records Department [address] [place] [address] H P Exam - Hospitalist 12/12/24 0924 MR#: [id number] Acct: [id number] Name: JOSELUIS VARGAS Rep #: [id number] : 1940 84 From: Gaurang Cortes MD PCP: Dr. Gil Gonzalez MD Status:ADM IN Location: [place] [id number] HPI - General General Date of Admission: 12/12/24 Date of Service: 12/12/24 Chief Complaint: Shortness of breath HPI Narrative JOSELUIS VARGAS, is a 84 M with history of previous CABG, valvular heart disease with previous TAVR who presented with progressive shortness of breath. Patient symptoms started 2 weeks prior to his admission and has gotten progressively worse. Patient however denied any weight gain no bipedal edema. Patient however admitted to exertional dyspnea with minimal activities including taking his shower. In view of worsening symptoms patient elected to present to the emergency department. Chest x-ray obtained on admission demonstrated bilateral perihilar infiltrates with no focal consolidation. Patient was also found to have markedly elevated proBNP. An assessment of acute congestive heart failure made admitted to monitored bed for further management [facility] History Daytime hypersomnolence Epistaxis Chronic systolic (congestive) heart failure Nonrheumatic aortic (valve) stenosis Abnormal stress test Dyspnea on exertion Hyperlipidemia Atherosclerotic heart disease of [place] coronary artery without angina pectoris Chest pain, unspecified Atherosclerosis of coronary artery bypass graft without angina pectoris ( 03/29/22) Home Medications ???Medication ???Instructions ???Recorded ???Last Taken ???Type vitamin E 200 unit capsule 200 unit PO DAILY 09/14/20 Unknown History aspirin 81 mg chewable tablet 81 mg PO Q OTHER DAY 09/10/2103/14 History tamsulosin 0.4 mg capsule (Flomax) 0.4 mg PO QHS #30 caps 01/27/22 Unknown Rx lisinopril 5 mg tablet 2.5 mg PO DAILY 07/14/23 Unknown H istory furosemide 40 mg tablet 40 mg PO DAILY 08/09/24 Unknown Hi story clopidogrel 75 mg tablet 75 mg PO Q OTHER DAY #45 tabs 09/07 Unknown Rx sildenafil 25 mg tablet 25 mg PO TID 12/12/24 Unknown Hist ory Allergy/AdvReac Type Severity Reaction Status Date / Time No Known Allergies Allergy Verified 12/12/24 07:29 Family History Father Myocardial infarction CVA (cerebral vascular accident) Mother CHF (congestive heart failure) Brother CAD (coronary artery disease) Cancer leukemia Surgical History Presence of coronary artery bypass graft stent ( 03/29/22) History of arthroplasty of knee H/O coronary artery bypass surgery ( 01/2002) History of left inguinal hernia repair ( 1961) Presence of stent in coronary artery Postsurgical percutaneous transluminal coronary angioplasty (PTCA) status History of aortic valve replacement with bioprosthetic valve ( 12/27/17) Social History adopted: No household members: spouse housing: house number of children: 6 current occupational status: employed 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 current occupational exposures/hazards: No pets and animals: Yes (chickens 2 and 1 horse) leisure activities: hunting and fishing history of recent travel: No Smoking Status: Never smoker alcohol intake: never substance use type: does not use caffeine: No what type of physical activity do you participate in: walking frequency: 5-6 times per week duration: 30-45 minutes/day seatbelt use: sometimes do you feel safe at home: Yes ROS ROS Narrative GENERAL: denies fever, chills, night sweats, weight loss, anorexia HEENT: denies headache, sinus congestion, or drainage, dysphagia RESPIRATORY: shortness of breath, dyspnea on exertion CARDIAC: denies chest pain, palpitations, orthopnea, PND GASTROINTESTINAL: denies abdominal pain, nausea, vomiting, melena, GENITOURINARY: denies dysuria, urgency, frequency, heamaturia EXTREMITY: denies swelling MUSCULOSKELETAL: denies current joint pain or tenderness NEUROLOGIC: denies focal numbness, weakness, tingling HEMATOLOGIC: denies easy bruising and/or hemorrhage INTEGUMENT: denies rashes PSYCHIATRIC: denies suicidal or homicidal ideation Vital Signs Vital Signs Vital Signs: 12/12/24 07:29 12/12/24 07:41 12/12/24 08:01 Temperature 98.1 F Temperature Source Oral Pulse Rate 71 Respiratory Rate 18 Respiratory Effort Short of Breath Blood Pressure 108/71 Blood Pressure Mean 83 Pulse Ox 99 Oxygen Delivery Method Room Air Room Air 12/12/24 08:29 12/12/24 09:14 Temperature Temperature Source (more content not included)... [facility] L503.7505on 12-12-2024 Natriuretic peptide B (Bld) [Mass/Vol] 8635 pg/mL High <=1800 [facility] Comment on above: Result Comment: Hear t Failure Unlikely: < 300 pg/mL Heart Failure Likely < 50 Years: > 450 pg/mL 50-75 Years: > 900 pg/mL >75 Years: > 1800 pg/mL Performed By: #### L 100.0100, L500.2500 #### [facility] [address] [place], [address] Natriuretic peptide.B prohor alirio N-Terminal [Mass/volume] in Serum or PlasmaOrdered By: Jose Lopez on 12-12-2024 Natriuretic peptide.B prohormone N-Terminal [Mass/Vol] 8635 pg/mL High <1800 [facility] Comment on above: Heart Failure Unlike ly: < 300 pg/mLHeart Failure Likely< 50 Years: > 450 pg/mL50-75 Years: > 900 pg/mL>75 Years: > 1800 pg/mL Anion gap in Serum or Plasma Ordered By: Karo Sewell on 11-18-2024 Anion gap [Moles/Vol] 13 mmol/L 5-15 [facility] BUN/creatinine ratioOrdered By: Karo Sewell on 11-18-2024 Urea nitrogen/Creatinine [Mass ratio] 27.3 mg/mg High 10-20 [facility] Basic Metabolic Profile (BMP )on 11-18-2024 BUN/CRE 27.3 RATIO High 10-20 [facility] Comment on above: Order Comment: Order Date: 11/11/24 Order Info: 06 - BMP Performed By: #### L 500.2500 #### [facility] [address] [place], [address] Calcium [Mass/Vol] 9.3 mg/dL Normal 7.6-11.0 [facility] Comment on above: Order Comment: Order Date: 11/11/24 Order Info: 666-08 - BMP Performed By: #### L 500.2500 #### [facility] [address] [place], [address] Chloride [Moles/Vol] 99 mmol/L Normal 98-108 [facility] Comment on above: Order Comment: Order Date: 11/11/24 Order Info: 06 - BMP Performed By: #### L 500.2500 #### [facility] [address] [place], [address] CO2 [Moles/Vol] 25.0 mmol/L Normal 21.0-32.0 [facility] Comment on above: Order Comment: Order Date: 11/11/24 Order Info: 06 - BMP Performed By: #### L 500.2500 #### [facility] [address] [place], [address] Creatinine [Mass/Vol] 1.50 mg/dL High 0.70-1.20 [facility] Comment on above: Order Comment: Order Date: 11/11/24 Order Info: 0667- - BMP Performed By: #### L 500.2500 #### [facility] [address] [place], [address] GAP 13 Normal 5-15 [facility] Comment on above: Order Comment: Order Date: 11/11/24 Order Info: 0667- - BMP Performed By: #### L 500.2500 #### [facility] [address] [place], [address] GFR/1.73 sq M.predicted among non-blacks MDRD (S/P/Bld) [Vol rate/Area] 46 mL/min/{1.73_m2} Low >60 [facility] Comment on above: Order Comment: Order Date: 11/11/24 Order Info: 06- - BMP Result Comment: mL/m in/1.73m2 CKD-EPI Creatinine Equation (2020) Performed By: #### L 500.2500 #### [facility] [address] [place], [address] Glucose [Mass/Vol] 105 mg/dL High 70-99 [facility] Comment on above: Order Comment: Order Date: 11/11/24 Order Info: 06- - BMP Performed By: #### L 500.2500 #### [facility] [address] [place], [address] Potassium [Moles/Vol] 4.4 mmol/L Normal 3.3-5.1 [facility] Comment on above: Order Comment: Order Date: 11/11/24 Order Info: 0667- - BMP Performed By: #### L 500.2500 #### [facility] [address] [place], [address] Sodium [Moles/Vol] 137 mmol/L Normal 133-145 [facility] Comment on above: Order Comment: Order Date: 11/11/24 Order Info: 0667- - BMP Performed By: #### L 500.2500 #### [facility] [facility] [address] [place] [place], [address] Urea nitrogen [Mass/Vol] 41 mg/dL High 4-19 [facility] Comment on above: Order Comment: Order Date: 11/11/24 Order Info: 06- - BMP Performed By: #### L 500.2500 #### [facility] [address] [place], [address] Carbon dioxide, total [Moles /volume] in Central venous bloodOrdered By: Karo Sewell on 11-18-2024 CO2 [Moles/Vol] 25.0 mmol/L 21.0-32.0 [facility] Chloride assayOrdered By: Wesley Sewell on 11-18-2024 Chloride [Moles/Vol] 99 mmol/L 98-108 [facility] GFR/1.73 sq M.predicted jorge g non-blacks MDRD (S/P/Bld) [Vol rate/Area]Ordered By: Karo Sewell on 11-18-2024 Estimated GFR (MDRD) Non-Af Amer 46 Low >60 [facility] Comment on above: mL/min/1.73m2 CKD-EP I Creatinine Equation (2020) Glomerular filtration rate ( GFR) estimation/1.73 sq m using serum, plasma, or whole bOrdered By: Karo Sewell on 11-18-2024 GFR/1.73 sq M.predicted among non-blacks MDRD (S/P/Bld) [Vol rate/Area] 46 mL/min/{1.73_m2} Low >60 [facility] Comment on above: mL/min/1.73m2 CKD-EP I Creatinine Equation (2020) L503.7505on 11-18-2024 Natriuretic peptide B (Bld) [Mass/Vol] 6905 pg/mL High <=1800 [facility] Comment on above: Order Comment: Order Date: 11/04/24 Order Info: 0667-1 - BMP Result Comment: Hear t Failure Unlikely: < 300 pg/mL Heart Failure Likely < 50 Years: > 450 pg/mL 50-75 Years: > 900 pg/mL >75 Years: > 1800 pg/mL Performed By: #### L 500.2500 #### [facility] [address] [place], [address] Natriuretic peptide.B prohor alirio N-Terminal [Mass/Vol]Ordered By: Karo Sewell on 11-18-2024 Natriuretic peptide B (Bld) [Mass/Vol] 6905 pg/mL High <1800 [facility] Comment on above: Heart Failure Unlike ly: < 300 pg/mLHeart Failure Likely< 50 Years: > 450 pg/mL50-75 Years: > 900 pg/mL>75 Years: > 1800 pg/mL Natriuretic peptide.B prohor alirio N-Terminal [Mass/volume] in Serum or PlasmaOrdered By: Karo eSwell on 11-18-2024 Natriuretic peptide.B prohormone N-Terminal [Mass/Vol] 6905 pg/mL High <1800 [facility] Comment on above: Heart Failure Unlike ly: < 300 pg/mLHeart Failure Likely< 50 Years: > 450 pg/mL50-75 Years: > 900 pg/mL>75 Years: > 1800 pg/mL Potassium (Unsp spec) [Mass/ Vol]Ordered By: Karo Sewell on 11-18-2024 Potassium [Moles/Vol] 4.4 mmol/L 3.3-5.1 [facility] Potassium measurement (mass/ volume)Ordered By: Karo Sewell on 11-18-2024 Potassium (Unsp spec) [Mass/Vol] 4.4 mmol/L 3.3-5.1 [facility] Serum creatinine measurement (mass/volume)Ordered By: Karo Sewell on 11-18-2024 Creatinine [Mass/Vol] 1.50 mg/dL High 0.70-1.20 [facility] Serum glucose measurement (m ass/volume)Ordered By: Karo Sewell on 11-18-2024 Glucose [Mass/Vol] 105 mg/dL High 70-99 [facility] Serum or plasma calcium kelli urement (mass/volume)Ordered By: Karo Sewell on 11-18-2024 Calcium [Mass/Vol] 9.3 mg/dL 7.6-11.0 [facility] Serum or plasma urea nitroge n measurement (mass/volume)Ordered By: Karo Sewell on 11-18-2024 Urea nitrogen [Mass/Vol] 41 mg/dL High 4-19 [facility] Sodium levelOrdered By: Karo Sewell on 11-18-2024 Sodium [Moles/Vol] 137 mmol/L 133-145 [facility] Anion gap in Serum or Plasma Ordered By: Karo Sewell on 11-04-2024 Anion gap [Moles/Vol] 14 mmol/L 5-15 [facility] BUN/creatinine ratioOrdered By: Karo Sewell on 11-04-2024 Urea nitrogen/Creatinine [Mass ratio] 24.2 mg/mg High 10-20 [facility] Basic Metabolic Profile (BMP )on 11-04-2024 BUN/CRE 24.2 RATIO High 10-20 [facility] Comment on above: Order Comment: Order Date: 11/04/24 Order Info: 0667-1 - BMP Performed By: #### L 500.2500 #### [facility] [address] [place], [address] Calcium [Mass/Vol] 9.3 mg/dL Normal 7.6-11.0 [facility] Comment on above: Order Comment: Order Date: 11/04/24 Order Info: 0667- - BMP Performed By: #### L 500.2500 #### [facility] [address] [place], [address] Chloride [Moles/Vol] 96 mmol/L Low 98-108 [facility] Comment on above: Order Comment: Order Date: 11/04/24 Order Info: 0667-1 - BMP Performed By: #### L 500.2500 #### [facility] [address] [place], [address] CO2 [Moles/Vol] 23.4 mmol/L Normal 21.0-32.0 [facility] Comment on above: Order Comment: Order Date: 11/04/24 Order Info: 0667-1 - BMP Performed By: #### L 500.2500 #### [facility] [address] [place], [address] Creatinine [Mass/Vol] 1.35 mg/dL High 0.70-1.20 [facility] Comment on above: Order Comment: Order Date: 11/04/24 Order Info: 0667-1 - BMP Performed By: #### L 500.2500 #### [facility] [address] [place], [address] GAP 14 Normal 5-15 [facility] Comment on above: Order Comment: Order Date: 11/04/24 Order Info: 0667 - BMP Performed By: #### L 500.2500 #### [facility] [address] [place], [address] GFR/1.73 sq M.predicted among non-blacks MDRD (S/P/Bld) [Vol rate/Area] 52 mL/min/{1.73_m2} Low >60 [facility] Comment on above: Order Comment: Order Date: 11/04/24 Order Info: 06 - BMP Result Comment: mL/m in/1.73m2 CKD-EPI Creatinine Equation (2020) Performed By: #### L 500.2500 #### [facility] [address] [place], [address] Glucose [Mass/Vol] 95 mg/dL Normal 70-99 [facility] Comment on above: Order Comment: Order Date: 11/04/24 Order Info: 06 - BMP Performed By: #### L 500.2500 #### [facility] [address] [place], [address] Potassium [Moles/Vol] 4.1 mmol/L Normal 3.3-5.1 [facility] Comment on above: Order Comment: Order Date: 11/04/24 Order Info: 0667 - BMP Performed By: #### L 500.2500 #### [facility] [address] [place], [address] Sodium [Moles/Vol] 134 mmol/L Normal 133-145 [facility] Comment on above: Order Comment: Order Date: 11/04/24 Order Info: 0667- - BMP Performed By: #### L 500.2500 #### [facility] [address] [place], [address] Urea nitrogen [Mass/Vol] 33 mg/dL High 4-19 [facility] Comment on above: Order Comment: Order Date: 11/04/24 Order Info: 0667-1 - BMP Performed By: #### L 500.2500 #### [facility] [address] [place], [address] Carbon dioxide, total [Moles /volume] in Central venous bloodOrdered By: Karo Sewell on 11-04-2024 CO2 [Moles/Vol] 23.4 mmol/L 21.0-32.0 [facility] Chloride assayOrdered By: Wesley Sewell on 11-04-2024 Chloride [Moles/Vol] 96 mmol/L Low 98-108 [facility] GFR/1.73 sq M.predicted jorge g non-blacks MDRD (S/P/Bld) [Vol rate/Area]Ordered By: Karo Sewell on 11-04-2024 Estimated GFR (MDRD) Non-Af Amer 52 Low >60 [facility] Comment on above: mL/min/1.73m2 CKD-EP I Creatinine Equation (2020) Glomerular filtration rate ( GFR) estimation/1.73 sq m using serum, plasma, or whole bOrdered By: Karo Sewell on 11-04-2024 GFR/1.73 sq M.predicted among non-blacks MDRD (S/P/Bld) [Vol rate/Area] 52 mL/min/{1.73_m2} Low >60 [facility] Comment on above: mL/min/1.73m2 CKD-EP I Creatinine Equation (2020) L503.7505on 11-04-2024 Natriuretic peptide B (Bld) [Mass/Vol] 5346 pg/mL High <=1800 [facility] Comment on above: Order Comment: Order Date: 11/11/24 Order Info: 0667-1 - BMP Result Comment: Hear t Failure Unlikely: < 300 pg/mL Heart Failure Likely < 50 Years: > 450 pg/mL 50-75 Years: > 900 pg/mL >75 Years: > 1800 pg/mL Performed By: #### L 500.2500 #### [facility] [address] [place], [address] Laboratory - Chemistry and C hemistry - challengeOrdered By: Karo Sewell on 11-04-2024 Natriuretic peptide B (Bld) [Mass/Vol] 5346 pg/mL High <1800 [facility] Comment on above: Heart Failure Unlike ly: < 300 pg/mLHeart Failure Likely< 50 Years: > 450 pg/mL50-75 Years: > 900 pg/mL>75 Years: > 1800 pg/mL Potassium (Unsp spec) [Mass/ Vol]Ordered By: Karo Sewell on 11-04-2024 Potassium [Moles/Vol] 4.1 mmol/L 3.3-5.1 [facility] Potassium measurement (mass/ volume)Ordered By: Karo Sewell on 11-04-2024 Potassium (Unsp spec) [Mass/Vol] 4.1 mmol/L 3.3-5.1 [facility] Serum creatinine measurement (mass/volume)Ordered By: Karo Sewell on 11-04-2024 Creatinine [Mass/Vol] 1.35 mg/dL High 0.70-1.20 [facility] Serum glucose measurement (m ass/volume)Ordered By: Karo Sewell on 11-04-2024 Glucose [Mass/Vol] 95 mg/dL 70-99 [facility] Serum or plasma calcium kelli urement (mass/volume)Ordered By: Karo Sewell on 11-04-2024 Calcium [Mass/Vol] 9.3 mg/dL 7.6-11.0 [facility] Serum or plasma urea nitroge n measurement (mass/volume)Ordered By: Karo Sewell on 11-04-2024 Urea nitrogen [Mass/Vol] 33 mg/dL High 4-19 [facility] Sodium levelOrdered By: Karo Sewell on 11-04-2024 Sodium [Moles/Vol] 134 mmol/L 133-145 [facility] Absolute neutrophil countOrd ered By: Judy Marinelli on 08-09-2024 Neutrophils (Bld) [#/Vol] 4.7 10*3/uL 2.0-7.7 [facility] Albumin to globulin ratioOrd ered By: Judy Marinelli on 08-09-2024 Albumin/Globulin [Mass ratio] 0.9 {ratio} 0.9-2.4 [facility] BNP (brain natriuretic pepti de measurement)Ordered By: Judy Marinelli on 08-09-2024 Natriuretic peptide B (Bld) [Mass/Vol] 786.9 pg/mL High 0-100 [facility] BNP,B-Type NATRIURETIC PEPTI [place] 08-09-2024 Natriuretic peptide B (Bld) [Mass/Vol] 786.9 pg/mL High 0-100 [facility] Comment on above: Performed By: #### L 500.4100, L503.6620, L100.0100, L501.5200, L501.9520, L501.9985, L506.0400, L500.4050 #### [facility] [address] [place], [place], [id number] Basophil percentageOrdered B y: Judy Marinelli on 08-09-2024 Basophils/100 WBC (Bld) 0.4 % 0-1 [facility] Bilirubin, totalOrdered By: Judy aMrinelli on 08-09-2024 Bilirubin [Mass/Vol] 0.80 mg/dL 0.20-1.00 [facility] Comment on above: For patients on eltr ombopag therapy, use of Dimension Dawson TBIL is not recommended. Blood urea nitrogen (BUN)/cr eatinine ratioOrdered By: Judy Marinelli on 08-09-2024 Urea nitrogen/Creatinine [Mass ratio] 24.4 mg/mg High 10-20 [facility] CBC W/Diff, Automatedon 07-15 Absolute Lymph 2.09 X10 3/uL Normal 0.83-4.51 [facility] Comment on above: Performed By: #### L 500.4100, L503.6620, L100.0100, L501.5200, L501.9520, L501.9985, L506.0400, L500.4050 #### [facility] [address] [place], [address] Absolute Neut 4.7 X10 3/uL Normal 2.0-7.7 [facility] Comment on above: Performed By: #### L 500.4100, L503.6620, L100.0100, L501.5200, L501.9520, L501.9985, L506.0400, L500.4050 #### [facility] [address] [place], [address] Basophils/100 WBC (Bld) 0.4 % Normal 0-1 [facility] Comment on above: Performed By: #### L 500.4100, L503.6620, L100.0100, L501.5200, L501.9520, L501.9985, L506.0400, L500.4050 #### [facility] [address] [place], [address] Eosinophils/100 WBC (Bld) 2.5 % Normal 0-5 [facility] Comment on above: Performed By: #### L 500.4100, L503.6620, L100.0100, L501.5200, L501.9520, L501.9985, L506.0400, L500.4050 #### [facility] [address] [facility] [place], [address] Erythrocyte distribution width (RBC) [Ratio] 14.6 % Normal 11.6-14.6 [facility] Comment on above: Performed By: #### L 500.4100, L503.6620, L100.0100, L501.5200, L501.9520, L501.9985, L506.0400, L500.4050 #### [facility] [address] [place], [address] Hematocrit (Bld) [Volume fraction] 36.5 % Low 40-54 [facility] Comment on above: Performed By: #### L 500.4100, L503.6620, L100.0100, L501.5200, L501.9520, L501.9985, L506.0400, L500.4050 #### [facility] [address] [place], [address] Hemoglobin (Bld) [Mass/Vol] 11.8 g/dL Low 13.0-16.5 [facility] Comment on above: Performed By: #### L 500.4100, L503.6620, L100.0100, L501.5200, L501.9520, L501.9985, L506.0400, L500.4050 #### [facility] [address] [place], [address] IG% 0.300 Normal 0.0-0.9 [facility] Comment on above: Result Comment: IG% - Immature Granulocytes (promyelocytes, myelocytes and metamyelocytes) > 1% indicates that a LEFT SHIFT is Present. Performed By: #### L 500.4100, L503.6620, L100.0100, L501.5200, L501.9520, L501.9985, L506.0400, L500.4050 #### [facility] [address] [place], [address] Lymphocytes/100 WBC (Bld) 27.5 % Normal 19-41 [facility] Comment on above: Performed By: #### L 500.4100, L503.6620, L100.0100, L501.5200, L501.9520, L501.9985, L506.0400, L500.4050 #### [facility] [address] [place], [address] MCH (RBC) [Entitic mass] 28.9 pg Normal 27.0-32.0 [facility] Comment on above: Performed By: #### L 500.4100, L503.6620, L100.0100, L501.5200, L501.9520, L501.9985, L506.0400, L500.4050 #### [facility] [address] [place], [address] MCHC (RBC) [Mass/Vol] 32.3 g/dL Normal 32-36 [facility] Comment on above: Performed By: #### L 500.4100, L503.6620, L100.0100, L501.5200, L501.9520, L501.9985, L506.0400, L500.4050 #### [facility] [address] [place], [address] MCV (RBC) [Entitic vol] 89.5 fL Normal 80-94 [facility] Comment on above: Performed By: #### L 500.4100, L503.6620, L100.0100, L501.5200, L501.9520, L501.9985, L506.0400, L500.4050 #### [facility] [address] [place], [address] Monocytes/100 WBC (Bld) 7.9 % Normal 0-10 [facility] Comment on above: Performed By: #### L 500.4100, L503.6620, L100.0100, L501.5200, L501.9520, L501.9985, L506.0400, L500.4050 #### [facility] [address] [place], [address] Neutrophils/100 WBC (Bld) 61.4 % Normal 47-70 [facility] Comment on above: Performed By: #### L 500.4100, L503.6620, L100.0100, L501.5200, L501.9520, L501.9985, L506.0400, L500.4050 #### [facility] [address] [place], [address] Nucleated RBC (Bld) [#/Vol] 0 10*3/uL Normal 0-5 [facility] Comment on above: Performed By: #### L 500.4100, L503.6620, L100.0100, L501.5200, L501.9520, L501.9985, L506.0400, L500.4050 #### [facility] [address] [place], [address] Platelet mean volume (Bld) [Entitic vol] 10.5 fL Normal 6.2-12.0 [facility] Comment on above: Performed By: #### L 500.4100, L503.6620, L100.0100, L501.5200, L501.9520, L501.9985, L506.0400, L500.4050 #### [facility] [address] [place], [address] Platelets (Bld) [#/Vol] 142 10*3/uL Low 150-450 [facility] Comment on above: Performed By: #### L 500.4100, L503.6620, L100.0100, L501.5200, L501.9520, L501.9985, L506.0400, L500.4050 #### [facility] [address] [place], [address] RBC (Bld) [#/Vol] 4.08 10*6/uL Low 4.6-6.2 [facility] Comment on above: Performed By: #### L 500.4100, L503.6620, L100.0100, L501.5200, L501.9520, L501.9985, L506.0400, L500.4050 #### [facility] [address] [place], [address] RDW SD 47.4 fl High 35.1-43.9 [facility] Comment on above: Performed By: #### L 500.4100, L503.6620, L100.0100, L501.5200, L501.9520, L501.9985, L506.0400, L500.4050 #### [facility] [address] [place], [place], [address] WBC (Bld) [#/Vol] 7.6 10*3/uL Normal 4.4-11.0 [facility] Comment on above: Performed By: #### L 500.4100, L503.6620, L100.0100, L501.5200, L501.9520, L501.9985, L506.0400, L500.4050 #### [facility] [address] [place], [address] Carbon dioxide measurementOr dered By: Judy Marinelli on 08-09-2024 CO2 [Moles/Vol] 25.0 mmol/L 21.0-32.0 [facility] Cardiology Visit Reporton Cardiology Visit Report [facility] [address] [place], [place] [address] OFFICE VISIT Date of Service: 08/09/24 MR#: [id number] Acct: [id number] Name: JOSELUIS VARGAS Rep #: [id number] : 1940 Provider: POLO eugene Age/Sex: 84/M Location: [facility] [place] Status: Signed HPI HPI History of Present Illness Details: JOSELUIS VARGAS, is a 84 year old white male who presents to the office today for an outpatient cardiovascular follow-up visit. He has a history of CAD s/p PCI to ostial, proximal, and mid RCA on 11/22/2017 at [facility], previous CABG with GRAJEDA to LAD at [facility] in 1995 and redo CABG at [facility] in 2001 with SVG to LCX and SVG to RPDA, aortic valve stenosis s/p TAVR on 12/27/2017 at [facility] with #26mm Buckley Jennifer S3 valve, mitral valve regurgitation, and hyperlipidemia. He states he did have COVID-19 in late May/early June 2020. He presented to the [facility] Emergency Department based upon concerns of shortness of breath and dyspnea. He was found to have an elevated BNP level and a chest x-ray that suggested the possibility of mild CHF type findings. It appears his diuretics were adjusted, according to him, and his furosemide was increased to 80 mg a day. There were also concerns as to whether or not he was having urologic issues as well as obstructive sleep apnea issues. Thus he was placed on additional medical therapy with Flomax and has subsequently undergone a sleep study. He underwent an echocardiogram in February 2022, which demonstrated a reduced ejection fraction of 35%. Which led him to a cardiac catheterization which demonstrated [place] multivessel coronary artery disease, his GRAJEDA to LAD was patent, he did have an 85% stenosis in his SVG to OM1, and chronically occluded SVG to RCA. He underwent PCI with a drug-eluting stent to his SVG to OM1. Repeat echocardiogram in July 2022 showed ejection fraction of 45%. He acknowledges mid sternal chest achy sensation. This occurs randomly and last for minutes. He denies palpitations or lower extremity edema. He acknowledges shortness of breath activity such as walking long distances and uphill. He also notes this when he is bending over to tie his shoes. He denies shortness of breath at rest or orthopnea. He acknowledges lightheadedness when getting up to use the restroom and middle the night. He denies dizziness, near-syncope, or syncope. He acknowledges fatigue. 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: No Accompanied by: Son Is patient in pain?: No Allergies No Known Allergies Allergy (Verified 08/09/24 09:33) Medications ???Medication ???Instructions ???Recorded ???Confirmed ???Type vitamin E 200 unit capsule 200 unit PO DAILY 09/14/20 08/09/24 History aspirin 81 mg chewable tablet 81 mg PO Q OTHER DAY 09/10/21 08/09/24 History tamsulosin 0.4 mg capsule (Flomax) 0.4 mg PO QHS #30 caps 01/27/22 08/09/24 Rx lisinopril 5 mg tablet 2.5 mg PO DAILY 07/14/23 08/09/24 History clopidogrel 75 mg tablet 75 mg PO Q OTHER DAY #45 tabs 08/01/23 08/09/24 Rx furosemide 40 mg tablet 40 mg PO DAILY 08/09/24 History Ejection fraction %: 35 Have you fallen in the past year?: Yes (Trip and fall onto left shoulder) [facility] Medical History Daytime hypersomnolence Epistaxis Chronic systolic (congestive) heart failure Nonrheumatic aortic (valve) stenosis Abnormal stress test Dyspnea on exertion Hyperlipidemia Atherosclerotic heart disease of [place] coronary artery without angina pectoris Chest pain, unspecified Atherosclerosis of coronary artery bypass graft without angina pectoris ( 03/29/22) Surgical History Presence of coronary artery bypass graft stent ( 03/29/22) History of arthroplasty of knee H/O coronary artery bypass surgery ( 01/2002) History of left inguinal hernia repair ( 1961) Presence of stent in coronary artery Postsurgical percutaneous transluminal coronary angioplasty (PTCA) status History of aortic valve replacement with bioprosthetic valve ( 12/27/17) Family History Father Myocardial infarction CVA (cerebral vascular accident) Mother CHF (congestive heart failure) Brother CAD (coronary artery disease) Cancer leukemia Social History adopted: No household members: spouse housing: house number of children: 6 current occupational status: employed current occupation: (more content not included)... Normal [facility] Chloride measurementOrdered By: Judy Marinelli on 08-09-2024 Chloride [Moles/Vol] 104 mmol/L 98-107 [facility] Comprehensive Metabolic Prof ilon 08-09-2024 Albumin [Mass/Vol] 3.4 g/dL Normal 3.2-5.0 [facility] Comment on above: Performed By: #### L 500.4100, L503.6620, L100.0100, L501.5200, L501.9520, L501.9985, L506.0400, L500.4050 #### [facility] [place], [address] Albumin/Globulin [Mass ratio] 0.9 {ratio} Normal 0.9-2.4 [facility] Comment on above: Performed By: #### L 500.4100, L503.6620, L100.0100, L501.5200, L501.9520, L501.9985, L506.0400, L500.4050 #### [facility] [address] [place], [address] ALK P 93 U/L Normal 45-117 [facility] Comment on above: Performed By: #### L 500.4100, L503.6620, L100.0100, L501.5200, L501.9520, L501.9985, L506.0400, L500.4050 #### [facility] [address] [place], [address] ALT [Catalytic activity/Vol] 33 U/L Normal 16-61 [facility] Comment on above: Performed By: #### L 500.4100, L503.6620, L100.0100, L501.5200, L501.9520, L501.9985, L506.0400, L500.4050 #### [facility] [address] [place], [address] AST [Catalytic activity/Vol] 19 U/L Normal 15-37 [facility] Comment on above: Performed By: #### L 500.4100, L503.6620, L100.0100, L501.5200, L501.9520, L501.9985, L506.0400, L500.4050 #### [facility] [address] [place], [address] Bilirubin [Mass/Vol] 0.80 mg/dL Normal 0.20-1.00 [facility] Comment on above: Result Comment: For patients on eltrombopag therapy, use of Dimension Dawson TBIL is not recommended. Performed By: #### L 500.4100, L503.6620, L100.0100, L501.5200, L501.9520, L501.9985, L506.0400, L500.4050 #### [facility] [address] [place], [address] BUN/CRE 24.4 RATIO High 10-20 [facility] Comment on above: Performed By: #### L 500.4100, L503.6620, L100.0100, L501.5200, L501.9520, L501.9985, L506.0400, L500.4050 #### [facility] [address] [place], [address] CA,Total 8.7 mg/dL Normal 8.5-10.1 [facility] Comment on above: Performed By: #### L 500.4100, L503.6620, L100.0100, L501.5200, L501.9520, L501.9985, L506.0400, L500.4050 #### [facility] [address] [place], [address] Chloride [Moles/Vol] 104 mmol/L Normal 98-107 [facility] Comment on above: Performed By: #### L 500.4100, L503.6620, L100.0100, L501.5200, L501.9520, L501.9985, L506.0400, L500.4050 #### [facility] [address] [place], [address] CO2 [Moles/Vol] 25.0 mmol/L Normal 21.0-32.0 [facility] Comment on above: Performed By: #### L 500.4100, L503.6620, L100.0100, L501.5200, L501.9520, L501.9985, L506.0400, L500.4050 #### [facility] [address] [place], [address] Creatinine [Mass/Vol] 1.31 mg/dL High 0.70-1.30 [facility] Comment on above: Result Comment: The validity of the calculated GFR GFRAA in patients over 70 years has not been determined. Clinical correlation is essential. Performed By: #### L 500.4100, L503.6620, L100.0100, L501.5200, L501.9520, L501.9985, L506.0400, L500.4050 #### [facility] [address] [place], [address] (682) EST GFR - AA 67 mL/min Normal >60 [facility] Comment on above: Result Comment: Afri can Vincentian GFR Calc Performed By: #### L 500.4100, L503.6620, L100.0100, L501.5200, L501.9520, L501.9985, L506.0400, L500.4050 #### [facility] [address] [place], [address] GAP 7 Normal 5-15 [facility] Comment on above: Performed By: #### L 500.4100, L503.6620, L100.0100, L501.5200, L501.9520, L501.9985, L506.0400, L500.4050 #### [facility] [address] [place], [address] GFR/1.73 sq M.predicted among non-blacks MDRD (S/P/Bld) [Vol rate/Area] 55 mL/min/{1.73_m2} Low >60 [facility] Comment on above: Result Comment: Non- GFR Calc Performed By: #### L 500.4100, L503.6620, L100.0100, L501.5200, L501.9520, L501.9985, L506.0400, L500.4050 #### [facility] [address] [place], [address] Globulin (S) [Mass/Vol] 3.7 g/dL Normal 2.2-4.2 [facility] Comment on above: Performed By: #### L 500.4100, L503.6620, L100.0100, L501.5200, L501.9520, L501.9985, L506.0400, L500.4050 #### [facility] [address] [place], [address] Glucose [Mass/Vol] 98 mg/dL Normal 74-106 [facility] Comment on above: Performed By: #### L 500.4100, L503.6620, L100.0100, L501.5200, L501.9520, L501.9985, L506.0400, L500.4050 #### [facility] [address] [place], [address] Potassium [Moles/Vol] 4.2 mmol/L Normal 3.5-5.1 [facility] Comment on above: Performed By: #### L 500.4100, L503.6620, L100.0100, L501.5200, L501.9520, L501.9985, L506.0400, L500.4050 #### [facility] [address] [place], [address] Sodium [Moles/Vol] 136 mmol/L Normal 136-145 [facility] Comment on above: Performed By: #### L 500.4100, L503.6620, L100.0100, L501.5200, L501.9520, L501.9985, L506.0400, L500.4050 #### [facility] [address] [place], [address] T PROT 7.1 g/dL Normal 6.4-8.2 [facility] Comment on above: Performed By: #### L 500.4100, L503.6620, L100.0100, L501.5200, L501.9520, L501.9985, L506.0400, L500.4050 #### [facility] [address] [place], [place], [id number] Urea nitrogen [Mass/Vol] 32 mg/dL High 7-18 [facility] Comment on above: Performed By: #### L 500.4100, L503.6620, L100.0100, L501.5200, L501.9520, L501.9985, L506.0400, L500.4050 #### [facility] [address] [place], [address] Direct serum free thyroxine (FT4) measurementOrdered By: Judy Marinelli on 08-09-2024 Free T4 [Mass/Vol] 1.04 ng/dL 0.76-1.46 [facility] Eosinophil percentageOrdered By: Juyd Marinelli on 08-09-2024 Eosinophils/100 WBC (Bld) 2.5 % 0-5 [facility] Erythrocyte distribution wid th ratioOrdered By: Judy Marinelli on 08-09-2024 Erythrocyte distribution width (RBC) [Ratio] 14.6 % 11.6-14.6 [facility] Erythrocyte distribution wid th standard deviationOrdered By: Judy Marinelli on 08-09-2024 Erythrocyte distribution width (RBC) [Entitic vol] 47.4 fL High 35.1-43.9 [facility] Estimated glomerular filtrat ion rate (GFR) AmericanOrdered By: Judy Marinelli on 08-09-2024 Estimated GFR (MDRD) Amer 67 mL/min >60 [facility] Comment on above: GFR Calc Glomerular filtration rate ( GFR) estimationOrdered By: Judy Marinelli on 08-09-2024 Estimated GFR (MDRD) Non-Af Amer 55 mL/min Low >60 [facility] Comment on above: Non- GFR Calc Glucose measurementOrdered B y: Judy Marinelli on 08-09-2024 Glucose [Mass/Vol] 98 mg/dL 74-106 [facility] Hematocrit Auto (Bld) [Volum e fraction]Ordered By: Judy Marinelli on 08-09-2024 Hematocrit (Bld) [Volume fraction] 36.5 % Low 40-54 [facility] Hemoglobin A1con 08-09-2024 HbA1c (Bld) [Mass fraction] 5.7 % High 3.8-5.6 [facility] Comment on above: Result Comment: Norm al < 5.7 % Prediabetic 5.7 - 6.4 % Diabetic >or= 6.5 % Please note range changes. Performed By: #### L 500.4100, L503.6620, L100.0100, L501.5200, L501.9520, L501.9985, L506.0400, L500.4050 #### [facility] [address] [place], [address] Hemoglobin A1c percentageOrd ered By: Judy Marinelli on 08-09-2024 HbA1c (Bld) [Mass fraction] 5.7 % High 3.8-5.6 [facility] Comment on above: Normal < 5.7 % Predi abetic 5.7 - 6.4 % Diabetic >or= 6.5 % Please note range changes. Hemoglobin measurementOrdere d By: Judy Marinelli on 08-09-2024 Hemoglobin (Bld) [Mass/Vol] 11.8 g/dL Low 13.0-16.5 [facility] High density lipoprotein (HD L) measurementOrdered By: Judy Marinelli on 08-09-2024 Cholesterol in HDL [Mass/Vol] 68 mg/dL >40 [facility] Comment on above: The drugs N-Acetylcy steine and Metamizole may falsely depress this assay. Reference Range HDL <40 mg/dL Low HDL Cholesterol HDL >or= 60 mg/dL High HDL Cholesterol Immature granulocytes/100 WB C Auto (Bld)Ordered By: Judy Marinelli on 08-09-2024 Immature granulocytes/100 WBC (Bld) 0.300 % 0.0-0.9 [facility] Comment on above: IG% - Immature Granu locytes (promyelocytes, myelocytes and metamyelocytes) > 1% indicates that a LEFT SHIFT is Present. Laboratory - Chemistry and C hemistry - challengeOrdered By: Judy Marinelli on 08-09-2024 AST [Catalytic activity/Vol] 19 U/L 15-37 [facility] Lipid Profileon 08-09-2024 Cholesterol [Mass/Vol] 279 mg/dL High 200 [facility] Comment on above: Result Comment: <200 mg/dL Desirable 200-240 mg/dL Borderline >240 mg/dL High Risk Performed By: #### L 500.4100, L503.6620, L100.0100, L501.5200, L501.9520, L501.9985, L506.0400, L500.4050 #### [facility] [address] [place], [address] Cholesterol in HDL [Mass/Vol] 68 mg/dL Normal [facility] Comment on above: Result Comment: The drugs N-Acetylcysteine and Metamizole may falsely depress this assay. Reference Range HDL <40 mg/dL Low HDL Cholesterol HDL >or= 60 mg/dL High HDL Cholesterol Performed By: #### L 500.4100, L503.6620, L100.0100, L501.5200, L501.9520, L501.9985, L506.0400, L500.4050 #### [facility] [address] [place], [address] Cholesterol in LDL [Mass/Vol] 194 mg/dL High 0-130 [facility] Comment on above: Performed By: #### L 500.4100, L503.6620, L100.0100, L501.5200, L501.9520, L501.9985, L506.0400, L500.4050 #### [facility] [address] [place], [address] Cholesterol in VLDL [Mass/Vol] 17 mg/dL Normal 5-40 [facility] Comment on above: Performed By: #### L 500.4100, L503.6620, L100.0100, L501.5200, L501.9520, L501.9985, L506.0400, L500.4050 #### [facility] [address] [place], [address] Triglyceride [Mass/Vol] 84 mg/dL Normal [facility] Comment on above: Result Comment: The drugs N-Acetylcysteine and Metamizole may falsely depress this assay. Serum Triglycerides Reference Interval Normal <150 mg/dL Borderline high 150 - 199 mg/dL High 200 - 499 mg/dL Very High > or = 500 mg/dL Performed By: #### L 500.4100, L503.6620, L100.0100, L501.5200, L501.9520, L501.9985, L506.0400, L500.4050 #### [facility] [address] [place], [address] Low density lipoprotein (LDL ) cholesterol measurementOrdered By: Judy Marinelli on 08-09-2024 Cholesterol in LDL [Mass/Vol] 194 mg/dL High 0-130 [facility] Lymphocytes Auto (Unsp spec) [#/Vol]Ordered By: Judy Marinelli on 08-09-2024 Lymphocytes (Bld) [#/Vol] 2.09 10*3/uL 0.83-4.51 [facility] Lymphocytes/100 WBC Auto (Un sp spec)Ordered By: Judy Marinelli on 08-09-2024 Lymphocytes/100 WBC (Bld) 27.5 % 19-41 [facility] MCV (mean corpuscular volume ) determinationOrdered By: Judy Marinelli on 08-09-2024 MCV (RBC) [Entitic vol] 89.5 fL 80-94 [facility] Magnesiumon 08-09-2024 Magnesium [Mass/Vol] 2.3 mg/dL Normal 1.6-2.6 [facility] Comment on above: Performed By: #### L 500.4100, L503.6620, L100.0100, L501.5200, L501.9520, L501.9985, L506.0400, L500.4050 #### [facility] [address] [place], [address] Magnesium measurementOrdered By: Judy Marinelli on 08-09-2024 Magnesium [Mass/Vol] 2.3 mg/dL 1.6-2.6 [facility] Mean corpuscular hemoglobin (MCH) determinationOrdered By: Judy Marinelli on 08-09-2024 MCH (RBC) [Entitic mass] 28.9 pg 27.0-32.0 [facility] Mean corpuscular hemoglobin concentration (MCHC) determinationOrdered By: Judy Marinelli on 08-09-2024 MCHC (RBC) [Mass/Vol] 32.3 g/dL 32-36 [facility] Mean platelet volume determi nationOrdered By: Judy Marinelli on 08-09-2024 Platelet mean volume (Bld) [Entitic vol] 10.5 fL 6.2-12.0 [facility] Monocyte percentageOrdered B y: Judy Marinelli on 08-09-2024 Monocytes/100 WBC (Bld) 7.9 % 0-10 [facility] Neutrophil percentageOrdered By: Judy Marinelli on 08-09-2024 Neutrophils/100 WBC (Bld) 61.4 % 47-70 [facility] Nucleated red blood cell per centageOrdered By: Judy Marinelli on 08-09-2024 Nucleated RBC/100 WBC (Bld) [Ratio] 0 % 0-5 [facility] Platelet countOrdered By: Claire Marinelli on 08-09-2024 Platelets (Bld) [#/Vol] 142 10*3/uL Low 150-450 [facility] Potassium measurementOrdered By: Judy Marinelli on 08-09-2024 Potassium [Moles/Vol] 4.2 mmol/L 3.5-5.1 [facility] RBC Auto (Bld) [#/Vol]Ordere d By: Judy Marinelli on 08-09-2024 RBC (Bld) [#/Vol] 4.08 10*6/uL Low 4.6-6.2 [facility] Serum anion gap measurementO rdered By: Judy Marinelli on 08-09-2024 Anion gap [Moles/Vol] 7 mmol/L 5-15 [facility] Serum globulin measurementOr dered By: Judy Marinelli on 08-09-2024 Globulin (S) [Mass/Vol] 3.7 g/dL 2.2-4.2 [facility] Serum or plasma alanine holm otransferase (ALT) measurementOrdered By: Judy Marinelli on 08-09-2024 ALT [Catalytic activity/Vol] 33 U/L 16-61 [facility] Serum or plasma albumin kelli urement (mass/volume)Ordered By: Judy Marinelli on 08-09-2024 Albumin [Mass/Vol] 3.4 g/dL 3.2-5.0 [facility] Serum or plasma alkaline karen sphatase measurementOrdered By: Judy Marinelli on 08-09-2024 ALP [Catalytic activity/Vol] 93 U/L 45-117 [facility] Serum or plasma calcium kelli urement (mass/volume)Ordered By: Judy Marinelli on 08-09-2024 Calcium [Mass/Vol] 8.7 mg/dL 8.5-10.1 [facility] Serum or plasma cholesterol measurement (mass/volume)Ordered By: Judy Marinelli on 08-09-2024 Cholesterol [Mass/Vol] 279 mg/dL High <200 [facility] Comment on above: <200 mg/dL Desirable 200-240 mg/dL Borderline >240 mg/dL High Risk Serum or plasma creatinine m easurement (mass/volume)Ordered By: Judy Marinelli on 08-09-2024 Creatinine [Mass/Vol] 1.31 mg/dL High 0.70-1.30 [facility] Comment on above: The validity of the calculated GFR & GFRAA in patients over 70 years has not been determined. Clinical correlation is essential. Serum or plasma urea nitroge n measurement (mass/volume)Ordered By: Judy Marinelli on 08-09-2024 Urea nitrogen [Mass/Vol] 32 mg/dL High 7-18 [facility] Sodium levelOrdered By: Judy Marinelli on 08-09-2024 Sodium [Moles/Vol] 136 mmol/L 136-145 [facility] T4 Free Directon 08-09-2024 T4 FREE DIRECT 1.04 ng/dL Normal 0.76-1.46 [facility] Comment on above: Performed By: #### L 100.0100, L500.2500 #### [facility] [address] [place], [address] TSH QnOrdered By: Judy Marinelli on 08-09-2024 Thyroid Stimulating Hormone (TSH) 2.000 uIU/mL 0.358-3.74 0 [facility] Thyroid Stim Hormone (TSH)on 08-09-2024 TSH 2.000 uIU/mL Normal 0.358-3.74 0 [facility] Comment on above: Performed By: #### L 100.0100, L500.2500 #### [facility] [address] [place], [address] Total proteinOrdered By: Martin Marinelli on 08-09-2024 Protein [Mass/Vol] 7.1 g/dL 6.4-8.2 [facility] Triglycerides measurementOrd ered By: Judy Marinelli on 08-09-2024 Triglyceride [Mass/Vol] 84 mg/dL <199 [facility] Comment on above: The drugs N-Acetylcy steine and Metamizole may falsely depress this assay.Serum Triglycerides Reference Interval Normal <150 mg/dL Borderline high 150 - 199 mg/dL High 200 - 499 mg/dL Very High > or = 500 mg/dL Very low density lipoprotein (VLDL) cholesterol measurementOrdered By: Judy Marinelli on 08-09-2024 VLDL Cholesterol 17 mg/dL 5-40 [facility] White blood cell (WBC) count Ordered By: Judy Marinelli on 08-09-2024 WBC (Bld) [#/Vol] 7.6 10*3/uL 4.4-11.0 [facility] Basophil percentageon 2021 Bilirubin [Mass/Vol] 0.80 mg/dL 0.20-1.00 [facility] Work Phone: Comment on above: For patients on eltr ombopag therapy, use of Dimension Dawson TBIL is not recommended. Cholesterol [Mass/Vol] 279 mg/dL <200 [facility] Work Phone: Comment on above: <200 mg/dL Desirable 200-240 mg/dL Borderline >240 mg/dL High Risk Protein [Mass/Vol] 7.3 g/dL 6.4-8.2 [facility] Work Phone: Triglyceride [Mass/Vol] 82 mg/dL <199 [facility] Work Phone: Comment on above: The drugs N-Acetylcy steine and Metamizole may falsely depress this assay.Serum Triglycerides Reference Interval Normal <150 mg/dL Borderline high 150 - 199 mg/dL High 200 - 499 mg/dL Very High > or = 500 mg/dL Direct bilirubinon Bilirubin.direct [Mass/Vol] 0.19 mg/dL 0.00-0.30 [facility] Work Phone: Laboratory - Chemistry and C hemistry - challengeon 02-01-2022 ALP [Catalytic activity/Vol] 95 U/L 45-117 [facility] Work Phone: ALT [Catalytic activity/Vol] 27 U/L 16-61 [facility] Work Phone: Globulin (S) [Mass/Vol] 3.7 g/dL 2.2-4.2 [facility] Work Phone: Serum or plasma albumin kelli urement (mass/volume)on 02-01-2022 Albumin [Mass/Vol] 3.6 g/dL 3.2-5.0 [facility] Work Phone: Serum or plasma cholesterol in HDL measurement (mass/volume)on 02-01-2022 Cholesterol in HDL [Mass/Vol] 62 mg/dL >40 [facility] Work Phone: Comment on above: The drugs N-Acetylcy steine and Metamizole may falsely depress this assay. Reference Range HDL <40 mg/dL Low HDL Cholesterol HDL >or= 60 mg/dL High HDL Cholesterol Serum or plasma cholesterol in VLDL measurement (mass/volume)on 02-01-2022 Cholesterol in VLDL [Mass/Vol] 16 mg/dL 5-40 [facility] Work Phone: Serum or plasma low density lipoprotein (LDL) cholesterol measurement (mass/volume)on 02-01-2022 Cholesterol in LDL [Mass/Vol] 201 mg/dL 0-130 [facility] Work Phone: Thin prep Papanicolaou smear with manual screeningon 02-01-2022 Thin prep Papanicolaou smear with manual screening 21 U/L 15-37 [facility] Work Phone: [phone] Absolute lymphocyte counton 01-27-2022 Lymphocytes Auto (Unsp spec) [#/Vol] 2.48 10*3/uL 0.83-4.51 [facility] Work Phone: Basophil percentageon 2021 Basophils/100 WBC (Bld) 0.3 % 0-1 [facility] Work Phone: Bilirubin [Mass/Vol] 0.70 mg/dL 0.20-1.00 [facility] Work Phone: Comment on above: For patients on eltr ombopag therapy, use of Dimension Dawson TBIL is not recommended. Chloride [Moles/Vol] 105 mmol/L 98-107 [facility] Work Phone: Eosinophils/100 WBC (Bld) 1.5 % 0-5 [facility] Work Phone: Glucose [Mass/Vol] 105 mg/dL 74-106 [facility] Work Phone: Comment on above: Fasting Glucose resu lt from 100 to 125 mg/dL suggests IMPAIRED HOMEOSTASIS per A.D.A. criteria. Neutrophils (Bld) [#/Vol] 3.5 10*3/uL 2.0-7.7 [facility] Work Phone: Neutrophils/100 WBC (Bld) 51.8 % 47-70 [facility] Work Phone: Potassium [Moles/Vol] 4.0 mmol/L 3.5-5.1 [facility] Work Phone: Protein [Mass/Vol] 7.2 g/dL 6.4-8.2 [facility] Work Phone: Sodium [Moles/Vol] 137 mmol/L 136-145 [facility] Work Phone: WBC (Bld) [#/Vol] 6.7 10*3/uL 4.4-11.0 [facility] Work Phone: Blood erythrocytes count (nu mber/volume)on 01-27-2022 RBC (Bld) [#/Vol] 4.62 10*6/uL 4.6-6.2 [facility] Work Phone: Blood hemoglobin measurement (mass/volume)on 01-27-2022 Hemoglobin (Bld) [Mass/Vol] 14.0 g/dL 13.0-16.5 [facility] Work Phone: Blood lymphocytes/100 leukoc yteson 01-27-2022 Lymphocytes/100 WBC (Bld) 37.2 % 19-41 [facility] Work Phone: Blood monocytes/100 leukocyt eson 01-27-2022 Monocytes/100 WBC (Bld) 8.9 % 0-10 [facility] Work Phone: [phone] Blood platelet mean volumeon 01-27-2022 Platelet mean volume (Bld) [Entitic vol] 10.3 fL 6.2-12.0 [facility] Work Phone: Determination of erythrocyte mean corpuscular volume (MCV)on 01-27-2022 MCV (RBC) [Entitic vol] 89.6 fL 80-94 [facility] Work Phone: Hematocrit Auto (Bld) [Volum e fraction]on 01-27-2022 Hematocrit (Bld) [Volume fraction] 41.4 % 40-54 [facility] Work Phone: Laboratory - Chemistry and C hemistry - challengeon 01-27-2022 ALP [Catalytic activity/Vol] 93 U/L 45-117 [facility] Work Phone: ALT [Catalytic activity/Vol] 24 U/L 16-61 [facility] Work Phone: CO2 [Moles/Vol] 26.0 mmol/L 21.0-32.0 [facility] Work Phone: Globulin (S) [Mass/Vol] 3.7 g/dL 2.2-4.2 [facility] Work Phone: Natriuretic peptide B (Bld) [Mass/Vol] 953.6 pg/mL 0-100 [facility] Work Phone: Urea nitrogen/Creatinine [Mass ratio] 22.0 mg/mg 10-20 [facility] Work Phone: [phone] Laboratory - Hematology and Cell countson 01-27-2022 Erythrocyte distribution width (RBC) [Entitic vol] 44.0 fL 35.1-43.9 [facility] Work Phone: [phone] Erythrocyte distribution width (RBC) [Ratio] 13.4 % 11.6-14.6 [facility] Work Phone: [phone] Immature granulocytes/100 WBC (Bld) 0.300 % 0.0-0.9 [facility] Work Phone: [phone] Comment on above: IG% - Immature Granu locytes (promyelocytes, myelocytes and metamyelocytes) > 1% indicates that a LEFT SHIFT is Present. MCH (RBC) [Entitic mass] 30.3 pg 27.0-32.0 [facility] Work Phone: [phone] Nucleated RBC/100 WBC (Bld) [Ratio] 0 % 0-5 [facility] Work Phone: [phone] MCHC Auto (RBC) [Mass/Vol]on 01-27-2022 MCHC (RBC) [Mass/Vol] 33.8 g/dL 32-36 [facility] Work Phone: [phone] No Panel Informationon 01-27 Estimated Creatinine Clearance Calc 42.71 ml/min [facility] Work Phone: [phone] Estimated GFR (MDRD) Amer 76 mL/min >60 [facility] Work Phone: [phone] Comment on above: GFR Calc Estimated GFR (MDRD) Non-Af Amer 63 mL/min >60 [facility] Work Phone: [phone] Comment on above: Non- GFR Calc Troponin I High Sensitivity 21 pg/mL 3.0-78.0 [facility] Work Phone: [phone] Comment on above: Please Note: New Pat t Units and Gender Specific Reference Ranges. For more information see Policy Stat Procedure Dawson High Sensitivity Troponin (TNIH) and attachments. Platelets bldon 01-27-2022 Platelets (Bld) [#/Vol] 165 10*3/uL 150-450 [facility] Work Phone: Serum or plasma albumin kelli urement (mass/volume)on 01-27-2022 Albumin [Mass/Vol] 3.5 g/dL 3.2-5.0 [facility] Work Phone: [phone] Serum or plasma albumin/glob ulin mass ratioon 01-27-2022 Albumin/Globulin [Mass ratio] 0.9 {ratio} 0.9-2.4 [facility] Work Phone: Serum or plasma calcium kelli urement (mass/volume)on 01-27-2022 Calcium [Mass/Vol] 8.9 mg/dL 8.5-10.1 [facility] Work Phone: Serum or plasma creatinine m easurement (mass/volume)on 01-27-2022 Creatinine [Mass/Vol] 1.18 mg/dL 0.70-1.30 [facility] Work Phone: Comment on above: The validity of the calculated GFR & GFRAA in patients over 70 years has not been determined. Clinical correlation is essential. Serum or plasma urea nitroge n measurement (mass/volume)on 01-27-2022 Urea nitrogen [Mass/Vol] 26 mg/dL 7-18 [facility] Work Phone: Thin prep Papanicolaou smear with manual screeningon 01-27-2022 Thin prep Papanicolaou smear with manual screening 17 U/L 15-37 [facility] Work Phone: Thin prep Papanicolaou smear with manual screening 6 5-15 [facility] Work Phone: PSA, TOTALon 09-17-2020 PSA, TOTAL 1.5 ng/mL Normal < OR = 4.0 [facility] Comment on above: Order Comment: FASTI NG: UNKNOWN Result Comment: The total PSA value from this assay system is standardized against the WHO standard. The test result will be approximately 20% lower when compared to the equimolar-standardized total PSA (Bjorn Franklin). Comparison of serial PSA results should be interpreted with this fact in mind. This test was performed using the Siemens chemiluminescent method. Values obtained from different assay methods cannot be used interchangeably. PSA levels, regardless of value, should not be interpreted as absolute evidence of the presence or absence of disease. Performed By: #### [id number] #### [facility] [address] [place] [address] Key Person: Catrachito Huerta MD ESRon 09-16-2020 ESR (Bld) [Velocity] 20 mm/h Normal 0-20 [facility] ([place]) Comment on above: Performed By: #### E SR #### [facility] [address] [place] [address] MEAT CUTTER APPRENTICE REPORTon 03-06-20 MEAT CUTTER APPRENTICE REPORT [facility] CONSULTATION REPORT NAME ACCOUNT SEX AGE ADMIT DISCHARGE PT MED. NUMBER DATE DATE TYPE RECORD# SAM [id number] M [id number] 02/25/19 1 JOSELUIS Courtney [address] ROOM: [facility] DATE OF : 1940 DICTATING PHYSICIAN: Marielle Pardo DATE OF CONSULTATION: February 25, 2019 REASON FOR CONSULTATION: Medical management post knee replacement. HISTORY OF PRESENT ILLNESS: This is a 79-year-old gentleman with a history of progressive osteoarthritis of the left knee who presented on February 25 for total left knee replacement. The patient went through the surgery and he did well postoperatively. He did not complain about much pain. The patient has been having progressive osteoarthritis of the knee, which got worse through the years, and especially in the last few months it got to the point where it is hard for him to sleep at night despite medical management, and eventually he proceeded with total left knee replacement. PAST MEDICAL HISTORY: Remarkable for (1) Coronary artery disease. (2) Aortic valve replacement for aortic stenosis. (3) Remote injury with a cut by chainsaw to the left leg. PAST SURGICAL HISTORY: The patient has had (1) Left knee superficial repair of cut. (2) He did have bypass surgery in 1995, and he did have then triple bypass surgery in 2001. He had stent placement since, and over a year ago, he had 3 stents placed at the [facility] in conjunction with aortic valve replacement transarterial. MEDICATIONS: The patient is currently on aspirin 81 mg daily, clopidogrel 75 mg daily, furosemide 40 mg daily, metoprolol 25 mg daily. ALLERGIES: He has no known drug allergies. FAMILY HISTORY: Positive for atherosclerotic vascular disease. SOCIAL HISTORY: The patient is retired. 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 Page 1 of 2 JOSELUIS VARGAS Consultation REVIEW OF SYSTEMS: The patient has denied fever, chills, or night sweats. No headache, blurry vision, earache, or sore throat. No neck pain, chest pain, or shortness of breath. No cough. No nausea or vomiting, abdominal pain, diarrhea, constipation, difficulty with urination, increased frequency or burning. The patient does have progressive left knee pain. PHYSICAL EXAMINATION: This is a pleasant 79-year-old gentleman is lying in bed fairly comfortable at the time of assessment. Vital signs revealed the patient to be afebrile. Blood pressure is 134/69, respirations 16, and heart rate is 58. HEENT: Pupils are round, equal, and reactive. Normal eye motion. Tongue to midline. Neck is supple. Lungs are clear bilaterally. The heart was regular. Abdomen is soft. No tenderness. Extremities revealed the left knee in surgical dressing. ASSESSMENT: 1. Status post left total knee replacement, appeared to be doing very well. 2. Coronary artery disease, asymptomatic. 3. Status post valve replacement, transvascular, appeared to be stable. RECOMMENDATION: From my point of view, I have no specific recommendation. I did discuss the patient's care with him, and he appeared to be doing well. Dictated By: Marielle Pardo MD 02/25/19 15:07 JOB #: [id number] Transcribed By: am 02/25/19 15:30 Electronically signed by: E-Sign: MARIELLE PARDO MD 03/06/19 09:05 Page 2 of 2 JOSELUIS VARGAS Consultation Normal [facility] BMP with eGFRon 02-26-2019 Age - Reported 79 years Normal [facility] Comment on above: Performed By: #### 2 17675 #### [facility],[address] [place] [address] Anion gap [Moles/Vol] 10 mmol/L Normal 10 - 20 [facility] Comment on above: Performed By: #### 2 28920 #### [facility],[address] [place] [address] 51653 Calcium [Mass/Vol] 8.4 mg/dL Low 8.6 - 10.2 [facility] Comment on above: Performed By: #### 2 66740 #### [facility],[address] [place] [address] 03006 Chloride [Moles/Vol] 102 mmol/L Normal 98 - 107 [facility] Comment on above: Performed By: #### 2 13620 #### [facility],[address] [place] [address] 18555 CO2 [Moles/Vol] 27.5 mmol/L Normal 21.0 - 31.0 [facility] Comment on above: Performed By: #### 2 67667 #### [facility],[address] [place] [address] 99041 Creatinine [Mass/Vol] 1.2 mg/dL Normal 0.7 - 1.3 [facility] Comment on above: Performed By: #### 2 78208 #### [facility],[address] [place] [address] 39821 GFR/1.73 sq M predicted among non-blacks MDRD (S/P/Bld) [Vol rate/Area] Normal [facility] Comment on above: Result Comment: BASI C METABOLIC PANEL Performed By: #### 2 25504 #### [facility],[address] [place] [address] 03915 GFR/1.73 sq M predicted among non-blacks MDRD (S/P/Bld) [Vol rate/Area] 58 ML/MINUTE Low 60 - 999 [facility] Comment on above: Performed By: #### 2 79253 #### [facility],[address] [place] [address] 19586 GFR/1.73 sq M predicted among non-blacks MDRD (S/P/Bld) [Vol rate/Area] mL/min/{1.73_m2} Normal 60 - 999 [facility] Comment on above: Result Comment: ACCO RDING TO THE NATIONAL KIDNEY DISEASE EDUCATION PROGRAM(NKDE), A NORMAL eGFR IS A VALUE GREATER THAN OR EQUAL TO 60 ML/MIN/1.73 SQ METERS. CHRONIC KIDNEY DISEASE: <60mL/MIN/1.73 SQ METERS KIDNEY FAILURE: <15mL/MIN/1.73 SQ METERS THIS TEST SHOULD ONLY BE USED FOR PATIENTS 18 YEARS OF AGE AND OLDER. Performed By: #### 2 94076 #### [facility],[address] [place] [address] 19440 Glucose [Mass/Vol] 127 mg/dL High 74 - 106 [facility] Comment on above: Performed By: #### 2 90416 #### [facility],[address] [place] [address] 29033 Potassium [Moles/Vol] 4.2 mmol/L Normal 3.5 - 5.1 [facility] Comment on above: Performed By: #### 2 75759 #### [facility],[address] [place] [address] 94500 Sodium [Moles/Vol] 135 mmol/L Low 136 - 145 [facility] Comment on above: Performed By: #### 2 98885 #### [facility],[address] [place] [address] 40683 Urea nitrogen [Mass/Vol] 28 mg/dL High 6 - 20 [facility] Comment on above: Performed By: #### 2 26747 #### [facility],[address] [place] [address] 03643 CBC + DIFFon 02-26-2019 Basophils (Bld) [#/Vol] 0.00 x10EE3/UL Normal 0.00 - 0.10 [facility] Comment on above: Performed By: #### 2 40632 #### [facility],[address] [place] [address] 48027 Basophils/100 WBC (Bld) 0.2 % Normal 0.0 - 2.0 [facility] Comment on above: Performed By: #### 2 61110 #### [facility],[address] [place] [address] CBC + DIFF Normal [facility] Comment on above: Result Comment: CBC- COMPLETE BLOOD COUNT Performed By: #### 2 94550 #### [facility],[address] [place] [address] Eosinophils (Bld) [#/Vol] 0.00 x10EE3/UL Normal 0.00 - 0.50 [facility] Comment on above: Performed By: #### 2 73317 #### [facility],[address] [place] [address] Eosinophils/100 WBC (Bld) 0.1 % Normal 0.0 - 7.0 [facility] Comment on above: Performed By: #### 2 27221 #### [place] [address] Erythrocyte distribution width (RBC) [Ratio] 13.8 % Normal 12.0 - 15.6 [facility] Comment on above: Performed By: #### 2 97904 #### [facility],[address] [place] [address] Hematocrit (Bld) [Volume fraction] 32.9 % Low 40.0 - 52.0 [facility] Comment on above: Performed By: #### 2 17025 #### [facility],[address] [place], [place] [address] Hemoglobin (Bld) [Mass/Vol] 11.6 g/dL Low 13.0 - 17.5 [facility] Comment on above: Performed By: #### 2 83069 #### [facility],[address] [place] [address] Lymphocytes (Bld) [#/Vol] 1.40 x10EE3/UL Normal 0.80 - 2.80 [facility] Comment on above: Performed By: #### 2 81725 #### [facility],[address] [place] [address] 76087 Lymphocytes/100 WBC (Bld) 13.4 % Low 20.0 - 45.0 [facility] Comment on above: Performed By: #### 2 93740 #### [facility],[address] [place] [address] 70170 MANUAL DIFF N/A Normal [facility] Comment on above: Performed By: #### 2 36060 #### [facility],[address] [place] [address] 85965 MCH (RBC) [Entitic mass] 32 pg Normal 27 - 33 [facility] Comment on above: Performed By: #### 2 87682 #### [facility],[address] [place], [place] [address] MCHC (RBC) [Mass/Vol] 35 X10 3 Normal 32 - 36 [facility] Comment on above: Performed By: #### 2 84566 #### [facility],[address] [place] [address] 30977 MCV (RBC) [Entitic vol] 90 fL Normal 81 - 98 [facility] Comment on above: Performed By: #### 2 76558 #### [facility],[address] [place] [address] 59538 Monocytes (Bld) [#/Vol] 0.80 x10EE3/UL Normal 0.20 - 1.00 [facility] Comment on above: Performed By: #### 2 45186 #### [facility],[address] [place] [address] 33946 MONOS % 7.7 % Normal 0.0 - 10.0 [facility] Comment on above: Performed By: #### 2 09461 #### [facility],[address] [place] [address] 28751 Morphology Tyrese (Bld) [Interp] N/A Normal [facility] Comment on above: Performed By: #### 2 72808 #### [facility],[address] [place] [address] 94931 Neutrophils (Bld) [#/Vol] 8.30 x10EE3/UL High 1.50 - 7.10 [facility] Comment on above: Performed By: #### 2 74868 #### [facility],[address] [place] [address] 33273 Neutrophils/100 WBC (Bld) 78.6 % High 46.0 - 76.0 [facility] Comment on above: Performed By: #### 2 49477 #### [address] [address] Platelet mean volume (Bld) [Entitic vol] 8.2 fL Normal 6.4 - 10.5 [facility] Comment on above: Result Comment: AUTO MATED DIFFERENTIAL Performed By: #### 2 39517 #### [address] [address] Platelets (Bld) [#/Vol] 123 x10EE3/UL Low 150 - 450 [facility] Comment on above: Performed By: #### 2 57200 #### [address] [address] RBC (Bld) [#/Vol] 3.67 x 10EE6/UL Low 4.50 - 6.00 [facility] Comment on above: Performed By: #### 2 24753 #### [address] [address] WBC (Bld) [#/Vol] 10.6 x 10EE3/UL Normal 4.5 - 10.8 [facility] Comment on above: Performed By: #### 2 20787 #### [address] [address] OPERATIVE PROCEDURESon 02-26 OPERATIVE PROCEDURES [facility] OPERATIVE REPORT NAME ACCOUNT SEX AGE ADMIT DISCHARGE PT MED. RECORD# NUMBER DATE DATE TYPE SAM, [id number] M 79 02/25/19 1 JOSELUIS Courtney [address] ROOM: [facility] DATE OF : 1940 DICTATING PHYSICIAN: Saji Pena DATE OF SURGERY: February 25, 2019 SURGEON: Saji Pena MD ELECTRO MECHANICAL SOLAR TECHNICIAN: Sil Wesley PA-C./JAIME Callahan student. ANESTHESIOLOGIST: Rossana Garvey MD ANESTHETIC: General with adductor canal nerve block posteriorly. PREOPERATIVE DIAGNOSIS: Left knee severe primary osteoarthritis. POSTOPERATIVE DIAGNOSIS: Left knee severe primary osteoarthritis. OPERATION PERFORMED: Left total knee replacement. COMPLICATIONS: None. ESTIMATED BLOOD LOSS: 50. SPECIAL MEDICATIONS: Ancef, tranexamic acid. INDICATIONS: The patient is a 79-year-old male with a longstanding history of right knee pain. He failed conservative measures. Due to persistent pain, he wished to have surgery. Appropriate informed consent was obtained and signed. FINDINGS: Intraoperative findings were consistent with a history, physical, and radiographic exam. He had severe arthritis of the right knee. He wished to have knee replacement. Intraoperative findings showed severe arthritis. He underwent standard anterior approach of the knee followed by cemented ConforMIS total knee replacement using a size 35 x 7 symmetric patella. We did a medial insert size 6, which was 6.1 mm polyethylene medially, laterally we did a size C corresponding with 8.3 mm of polyethylene. This reproduced his anatomy nicely. He underwent standard wound closure in layers. Page 1 of 3 JOSELUIS VARGAS Operative Report accountant assistant, physician media center assistant, was utilized throughout the entire procedure. She helped with patient positioning, holding of limb, holding of retractors. She helped with exposure throughout. She helped with wound closure, bandage application, and patient transfer. She was also vital in instructing the TRACK EQUIPMENT OPERATOR student on assisting techniques, as well as suturing techniques. Without surgical services asst, surgical time would have been increased. Surgical outcome could have been less optimal. DESCRIPTION OF OPERATION: The patient was taken to the OR and transferred to the OR table. He was given a general anesthetic. Adductor canal nerve block planned for postoperatively. Ancef was given IV preoperatively. Tranexamic acid was given IV. A well-padded tourniquet was applied to his left upper thigh. SELENE hose and SCD on the nonoperative limp. The left lower extremity was prepped, padded, and draped in the usual orthopedic sterile fashion for the procedure. We injected our pain relieving solution of Duramorph, epinephrine, and ropivacaine at the anterior superior knee. The limb was exsanguinated, tourniquet was applied to 300 mmHg. A midline incision through skin and subcutaneous tissue brought us down to the extensor mechanism. Suture material from previous knee surgery was identified and that was exposed was removed. Medial parapatellar arthrotomy was carried out. Straw-colored joint fluid was evacuated from the knee. Cystic fluid was evacuated from the medial side of the knee. At this point, we raised a sleeve of tissue off the upper medial tibia, resected some of the infrapatellar fat pad. We removed the ACL, PCL was preserved, and we removed bone spurs from about the patella. Tissue was taken off the anterior aspect of the distal femur. We started with our femoral cutting guides, removed cartilage off the end of the femur appropriately, and resections were carried out using the cutting guides with the assistants holding the limp and holding retractors. Anterior, posterior, and Chamfer cuts carried out. At this point, cartilage removed off the upper surface of the tibia. Collateral ligament protectors and PCL protector held by the assistants. We did the cutting guide system for the tibia. With a 10 slope built in, we pinned that block and cut was carried out with the saw. A cyst was noted at the back of the tibia, which was contained. That was curetted. At this point, femoral trial was placed, tibial trial was placed and allowed to free float, and ultimately pinned in position. Drill and punch was used on the upper tibia. Bone spurs removed posteromedial and posterolateral aspect of the femur. We everted the patella, measured, and appropriate resection was carried out leaving us approximately 14 mm thick patella. We trialed and decided on a 35 x 7 symmetric patella. The clamp was held by the surgeon, and media center assistant drilled through that with 3 drill holes. The trial was placed and removed. The wound was thoroughly irrigated, cleaned, and dried. Bleeding at the back of the knee was controlled with the Bovie. We injected the back of the knee with our pain relieving solution with the spinal needle. Two full batches of bone cement were mixed and ready. The knee was thoroughly irrigated, cleaned, and dried. When the cement was at the appropriate texture, we cemented on the tibia, femur, and patella. The patella was clamped in position, and other things hammered into position. Excess bone cement was removed. Trial inserts were placed, and the knee was held in full extension while the cement hardened. While the cement was hardening and the surgeon was holding the leg in extension, the media center assistant injected the pain relieving solution carefully throughout the knee. Once that was done, tourniquet Page 2 of 3 JOSELUIS VARGAS Operative Report was let down when the cement was fully hardened. We re-trialed and decided on the 6 C inserts. Once this was done, they were sequentially placed when their trial was removed. Each seated down fully. The knee was flexed and extended. The patella tracked very well. We used Irrisept throughout the knee several times during the procedure and at the end of the procedure allowing it to soak for a minute. That was irrigated out. Arthrotomy was repaired with #1 Vicryl about the patellar tendon and patella and running #2 Stratafix, a mid-layer of 0 Vicryl, inverted 2-0 Vicryl, skin, Steri-Strips, Mepilex dressing, SELENE hose, and Ajay wrap. He was awoken from his anesthetic, transferred back to his own bed in recovery room in satisfactory condition. We will plan to use 81 mg of aspirin twice a day for DVT prevention, Ancef for perioperative antibiotic. Medical Service will be consulted. Dictated By: Saji Pena MD 02/25/19 11:06 JOB #: [id number] Transcribed By: chanelle 02/25/19 17:38 Electronically signed by: E-SIGN DR. SAJI PENA M.D. 02/26/19 13:00 Page 3 of 3 JOSELUIS VARGAS Operative Report Normal [facility] URINALYSISon 02-26-2019 Bilirubin [Mass/Vol] Negative Normal NORMAL: NEGATIVE [facility] Comment on above: Performed By: #### 2 03710 #### [place] [address] Blood Negative Normal NORMAL: NEGATIVE [facility] Comment on above: Performed By: #### 2 55729 #### [place] [address] Clarity (U) clear Normal NORMAL: CLEAR [facility] Comment on above: Performed By: #### 2 43684 #### [facility],[address] [place] [address] Color (U) jigar Normal NORMAL: YELLOW [facility] Comment on above: Performed By: #### 2 69850 #### [facility],[address] [place] [address] Glucose [Mass/Vol] NORM Normal NORMAL: NORMAL [facility] Comment on above: Performed By: #### 2 69340 #### [facility],[address] [place] [address] Ketone 15 Abnormal NORMAL: NEGATIVE [facility] Comment on above: Performed By: #### 2 81651 #### [facility],[address] [place] [address] Microscopic NOT Normal [facility] Comment on above: Performed By: #### 2 05397 #### [facility],[address] [place] [address] Nitrite Ql (U) Negative Normal NORMAL: NEGATIVE [facility] Comment on above: Performed By: #### 2 53631 #### [facility],[address] [place] [address] pH (Bld) 6 Normal NORMAL: 5.0-8.0 [facility] Comment on above: Performed By: #### 2 95897 #### [facility],[address] [place] [address] Protein (U) [Mass/Vol] 30 mg/dL Abnormal NORMAL: NEGATIVE [facility] Comment on above: Performed By: #### 2 22388 #### [facility],[address] [place] [address] Sp [place] 1.020 Normal NORMAL: 1.010-1.03 0 [facility] Comment on above: Performed By: #### 2 00900 #### [facility],[address] [place] [address] Specimen type Nom (Spec) Catheter Normal [facility] Comment on above: Performed By: #### 2 71727 #### [facility],[address] [place] [address] 78127 Urobilinog NORM Normal NORMAL: NORMAL [facility] Comment on above: Performed By: #### 2 17927 #### [facility],[address] [place] [address] 23927 WBC (Bld) [#/Vol] Negative Normal NORMAL: NEGATIVE [facility] Comment on above: Performed By: #### 2 00027 #### [facility],[address] [place] [address] 04732 KNEE 2 VIEWS LTon 02-25-2019 KNEE 2 VIEWS [place] [address] Patient: JOSELUIS VARGAS Phone#: : 1940 Age: 79 Gender: M Pt. Type: In Account: [id number] Location: 062 Ordering: SAJI PENA Exam Date: 02/25/2019/11:50 Family Phys: GIL GONZALEZ Charge Code: [id number] Physician: [place] Order #: [id number] DLP Dose#: PROCEDURE: X-RAY KNEE LT 2 VIEWS COMPARISON: None. INDICATIONS: Left total knee post op imaging FINDINGS: BONES: Total knee prosthesis is present. Small bony fragment is present adjacent to the inferior patellar margin. SOFT TISSUES: Postsurgical soft tissue air is present. Surgical clips are present in the medial soft tissues. EFFUSION: None visible. OTHER: Negative. CONCLUSION: 1. Total knee prosthesis is present. Dictated by: Peterson Burgess MD on 02/25/2019 at 12:35 Approved by: Peterson Burgess MD on 02/25/2019 at 12:35 Normal [facility] BMP with eGFRon 02-07-2019 Age - Reported 79 years Normal [facility] Comment on above: Performed By: #### 2 52054 #### [facility],[address] [place] [address] 55672 Anion gap [Moles/Vol] 13 mmol/L Normal 10 - 20 [facility] Comment on above: Performed By: #### 2 29234 #### [facility],[address] [place] [address] 23898 Calcium [Mass/Vol] 10.0 mg/dL Normal 8.6 - 10.2 [facility] Comment on above: Performed By: #### 2 88067 #### [facility],[address] [place] [address] 65064 Chloride [Moles/Vol] 102 mmol/L Normal 98 - 107 [facility] Comment on above: Performed By: #### 2 45632 #### [facility],[address] [place] [address] 13472 CO2 [Moles/Vol] 25.7 mmol/L Normal 21.0 - 31.0 [facility] Comment on above: Performed By: #### 2 34906 #### [facility],[address] [place] [address] 13642 Creatinine [Mass/Vol] 1.2 mg/dL Normal 0.7 - 1.3 [facility] Comment on above: Performed By: #### 2 19487 #### [facility],[address] [place] [address] 78585 GFR/1.73 sq M predicted among non-blacks MDRD (S/P/Bld) [Vol rate/Area] 58 ML/MINUTE Low 60 - 999 [facility] Comment on above: Performed By: #### 2 96561 #### [facility],[address] [place] [address] 02788 GFR/1.73 sq M predicted among non-blacks MDRD (S/P/Bld) [Vol rate/Area] Normal [facility] Comment on above: Result Comment: BASI C METABOLIC PANEL Performed By: #### 2 07285 #### [place] [address] [address] GFR/1.73 sq M predicted among non-blacks MDRD (S/P/Bld) [Vol rate/Area] mL/min/{1.73_m2} Normal 60 - 999 [facility] Comment on above: Result Comment: ACCO RDING TO THE NATIONAL KIDNEY DISEASE EDUCATION PROGRAM(NKDE), A NORMAL eGFR IS A VALUE GREATER THAN OR EQUAL TO 60 ML/MIN/1.73 SQ METERS. CHRONIC KIDNEY DISEASE: <60mL/MIN/1.73 SQ METERS KIDNEY FAILURE: <15mL/MIN/1.73 SQ METERS THIS TEST SHOULD ONLY BE USED FOR PATIENTS 18 YEARS OF AGE AND OLDER. Performed By: #### 2 76867 #### [address] [address] Glucose [Mass/Vol] 93 mg/dL Normal 74 - 106 [facility] Comment on above: Performed By: #### 2 56114 #### [address] [address] Potassium [Moles/Vol] 4.5 mmol/L Normal 3.5 - 5.1 [facility] Comment on above: Performed By: #### 2 94747 #### [address] [address] Sodium [Moles/Vol] 136 mmol/L Normal 136 - 145 [facility] Comment on above: Performed By: #### 2 30700 #### [address] [address] Urea nitrogen [Mass/Vol] 35 mg/dL High 6 - 20 [facility] Comment on above: Performed By: #### 2 08862 #### [address] [address] CBC (NO DIFF)on 02-07-2019 CBC (NO DIFF) Normal [facility] Comment on above: Result Comment: CBC( WITHOUT DIFFERENTIAL) Performed By: #### 2 94152 #### [address],[place] [address] Erythrocyte distribution width (RBC) [Ratio] 14.0 % Normal 12.0 - 15.6 [facility] Comment on above: Performed By: #### 2 03202 #### [facility],[address] [place] [address] 20664 Hematocrit (Bld) [Volume fraction] 40.3 % Normal 40.0 - 52.0 [facility] Comment on above: Performed By: #### 2 64134 #### [facility],[address] [place] [address] 32813 Hemoglobin (Bld) [Mass/Vol] 13.8 g/dL Normal 13.0 - 17.5 [facility] Comment on above: Performed By: #### 2 23621 #### [facility],[address] [place] [address] 51077 MCH (RBC) [Entitic mass] 31 pg Normal 27 - 33 [facility] Comment on above: Performed By: #### 2 05923 #### [facility],[address] [place] [address] 61453 MCHC (RBC) [Mass/Vol] 34 X10 3 Normal 32 - 36 [facility] Comment on above: Performed By: #### 2 41392 #### [facility],[address] [place] [address] 94952 MCV (RBC) [Entitic vol] 90 fL Normal 81 - 98 [facility] Comment on above: Performed By: #### 2 35658 #### [facility],[address] [place] [address] 52542 Platelet mean volume (Bld) [Entitic vol] 8.7 fL Normal 6.4 - 10.5 [facility] Comment on above: Performed By: #### 2 10332 #### [facility],[address] [place] [address] 01288 Platelets (Bld) [#/Vol] 155 x10EE3/UL Normal 150 - 450 [facility] Comment on above: Performed By: #### 2 41530 #### [facility],[address] [place] [address] 65708 RBC (Bld) [#/Vol] 4.46 x 10EE6/UL Low 4.50 - 6.00 [facility] Comment on above: Performed By: #### 2 50035 #### [facility],[address] [place] [address] 64727 WBC (Bld) [#/Vol] 6.7 x 10EE3/UL Normal 4.5 - 10.8 [facility] Comment on above: Performed By: #### 2 90441 #### [facility],[address] [place] [address] 68842 CHEST 2 VIEWSon 02-07-2019 CHEST 2 VIEWS [place] [address] Patient: JOSELUIS VARGAS Phone#: : 1940 Age: 79 Gender: M Pt. Type: Out Account: [id number] Location: Ordering: SAJI PENA Exam Date: 02/07/2019/10:51 Family Phys: GIL GONZALEZ Charge Code: [id number] Physician: [place] Order #: [id number] DLP Dose#: PROCEDURE: X-RAY CHEST 2 VIEWS COMPARISON: None. INDICATIONS: Preoperative Clearance. FINDINGS: LUNGS: Normal. No significant pulmonary parenchymal abnormalities. VASCULATURE: Normal. Unremarkable pulmonary vasculature. CARDIAC: No cardiac silhouette abnormality or cardiomegaly. Coronary artery calcification is present. MEDIASTINUM: The aorta is ectatic. Surgical suture iand clips are present. There is graft material at the proximal aorta. PLEURA: Normal. No effusion or pleural thickening. BONES: Degenerative changes of the spine are present. OTHER: Negative. CONCLUSION: No acute disease. Dictated by: PETERSON MARINO on 02/07/2019 at 11:05 Approved by: PETERSON MARINO on 02/07/2019 at 11:05 Normal [facility] CT LOWER EXTREMITY LT WOon 0 01-11-2019 CT LOWER EXTREMITY LT WO [address] [address] Patient: JOSELUIS VARGAS Phone#: : 1940 Age: 78 Gender: M Pt. Type: Out Account: [id number] Location: Ordering: SAJI PENA Exam Date: 01/11/2019/8:24 Family Phys: GIL GONZALEZ Charge Code: [id number] Physician: [place] Order #: [id number] DLP Dose#: PROCEDURE: CT LOWER EXTREMITY LT WO CONTRAST COMPARISON: None. INDICATIONS: Conformis. TECHNIQUE: Multi-planar CT images were created without intravenous contrast. All CT scans at this facility use dose modulation, iterative reconstruction, and/or weight based dosing when appropriate to reduce radiation dose to as low as reasonably achievable. IV CONTRAST: No IV contrast used,ml TOTAL DOSE: 34.7 CTDIvol(mGy) FINDINGS: BONES: Severe degenerative changes are present at the knee. There are large subcortical cyst near the intercondylar notch and lateral femoral condyle. Subcortical cysts are present at the medial and lateral tibial plateaus. Large osteophytes are present extending from the medial and lateral femoral condyles, anterior lateral femoral condyle and medial and lateral tibial plateau. There is mild lateral subluxation of the patella. There is marked narrowing of the lateral patellofemoral joint space, medial patellofemoral joint space and medial compartment. SOFT TISSUES: Negative. No visible soft tissue swelling. EFFUSION: There is a small joint effusion. An 11 mm loose body is present superior to the patella. There are several small bony fragments adjacent to the patella and may be related to remote avulsions versus loose bodies. There is a small popliteal cyst. OTHER: Negative. CONCLUSION: 1. 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 2. There are large subcortical cysts involving the distal femur and proximal tibia. Continued Report - Page 2 of 2 Patient: JOSELUIS VARGAS Phone#: : [phone] Age: 78 Gender: M Pt. Type: Out Account: [id number] Location: Ordering: SAJI PENA Exam Date: 01/11/2019/8:24 Family Phys: GIL GONZALEZ Charge Code: 289457 Physician: [place] Order #: [id number] DLP Dose#: 3. An 11 mm loose body is present superior to the patella. Several small bony fragments are noted adjacent to the patella and may be the result of remote avulsions versus additional loose bodies. Dictated by: Peterson Burgess MD on 01/11/2019 at 9:42 Approved by: Peterson Burgess MD on 01/11/2019 at 9:42 [facility] CNPN Telephone (HVICTR) -------JOSELUIS VARGAS ([id number]) 1940 MDate Time Provider Department03/15/18 CHANEL VILLA HVICTSergio During your visit today, we recorded the following information about you:Lou Nieto, RN, RN 03/15/2018 10:36 AM Signed [facility] Contact Center Inbound Phone EncounterDATE of SERVICE: 03/15/2018TIME of SERVICE: 10:34 AMStatus: Non-urgent, needs attentionService/Provider: Chanel Ray MDReason for call: Follow-up AppointmentContact information: [phone]: [facility]: Spouse calling post discharge line. States follow up appt for here at main campus. [facility] [place] [facility] States pt is doing really well. Can be reached at the # listed above.Lou Nieto RNDate of Resolution: 03/15/2018Time of Resolution 10:34 AMAlta Dominguez APRN.CARD CUTTER HELPER 03/15/2018 3:30 PM AddendumPT states that his breathing is a lot betterHe has some mild dizziness after taking the diureticHe remains stableHe will follow up locally on 03/21/2018Allergies As of Date: 03/15/2018 Noted Allergy GehdkagbLJPUKSZ-IOU-HQM REDUCTASE INHIBIT*12/29/2017 5 - Intolerance Comments: Statins caused myalgias, couldn't talk, affected my kidneysDate Reviewed: 03/08/2018Reviewed by: Quynh eLe) SHANTELL Tong - Fully AssessedReason for Visit: Post Dc Program Call - Needs Attn [[id number]]Prescriptions as of 03/15/2018 Sig: LISINOPRIL 2.5 MG TABLET Take 1 tablet by mouth once d* METOPROLOL SUCCINATE ER 25 MG* Take 1 tablet by mouth once d* FUROSEMIDE 40 MG TABLET Take 1 tablet by mouth once d* EZETIMIBE 10 MG TABLET Take 1 tablet by mouth once d* CLOPIDOGREL 75 MG TABLET Take 1 tablet by mouth once d* ASPIRIN 81 MG TABLET,DELAYED * Take 81 mg by mouth once ang[place]*Problem List As Of Date 03/15/2018 Noted Resolved CAD (coronary artery disease) [I25.10] More... Aortic stenosis [I35.0] Priority: A More... Other hyperlipidemia [E78.4] INVALID FOR* More... Blood clots in stool [K92.1] INVALID FOR* More... CHF (congestive heart failure) (HCC) [I50.9] INVALID FOR* Status:Closed by LOU NIETO on 03/15/18 Normal [facility] APTTon 03-08-2018 aPTT Coag time (Bld) 26.2 s Normal 23.0-32.4 [facility] Comment on above: Result Comment: Unfr actionated Heparin Therapeutic Ranges:Standard Heparin Nomogram: 53 to 78 seconds (anti-Xa level of 0.3 to 0.7 U/ml)Low Dose/ACS Nomogram: 49 to 67 seconds (anti-Xa level of 0.2 to 0.5 U/ml)Stroke Treatment Nomogram: 49 to 67 seconds (anti-Xa level of 0.2 to 0.5 U/ml)Note: The APTT therapeutic range has been determined for the current lot of laboratory APTT reagent in use throughout the [facility]. Performed By: #### P T, PTT, CBC, BMP, MG1, TSH, HBA1C ####[address] [place] [phone] Basic Metabolic Panlon 03-08 Anion gap 3 molar conc 16 mmol/L Normal 9-18 [facility] Comment on above: Performed By: #### P T, PTT, CBC, BMP, MG1, TSH, HBA1C ####[address] [place] [phone] Calcium mass conc 9.1 mg/dL Normal 8.5-10.2 [facility] Comment on above: Performed By: #### P T, PTT, CBC, BMP, MG1, TSH, HBA1C ####[place] [phone] Chloride molar conc 99 mmol/L Normal 97-105 [facility] Comment on above: Performed By: #### P T, PTT, CBC, BMP, MG1, TSH, HBA1C ####[address] [place] [phone] CO2 molar conc 20 mmol/L Low 22-30 [facility] Comment on above: Performed By: #### P T, PTT, CBC, BMP, MG1, TSH, HBA1C ####[address] [phone] Creatinine mass conc 1.23 mg/dL High 0.73-1.22 [facility] Comment on above: Performed By: #### P T, PTT, CBC, BMP, MG1, TSH, HBA1C ####[address] [place] [phone] eGFR- Amer. >60 Normal [facility] Comment on above: Performed By: #### P T, PTT, CBC, BMP, MG1, TSH, HBA1C ####[place] [address] [place] [phone] GFR/1.73 sq M predicted among non-blacks MDRD vol rate/area (S/P/Bld) 57 . Normal [facility] Comment on above: Result Comment: eGFR (Estimated GFR) Units of measure: mL/min/1.73 meters squaredeGFR is derived from the reexpressed MDRD Study equation using the following parameters: serum creatinine, age, gender and race. The creatinine assay has been calibrated to be traceable to IDMS.An eGFR <60 mL/min/1.73m2 for >3 months is consistent with chronic kidney disease. Refer to KDOQI guidelines for clinical interpretation.In patients with unstable renal function, e.g. those with acute kidney injury, the eGFR may not accurately reflect actual GFR. Performed By: #### P T, PTT, CBC, BMP, MG1, TSH, HBA1C ####[address] [phone] Glucose mass conc 92 mg/dL Normal 74-99 [facility] Comment on above: Result Comment: The [place] Diabetes Association (ADA) provides guidance for cutoff values for fasting glucose and random glucose. The ADA defines fasting as no caloric intake for at least 8 hours. Fasting plasma glucose results between 100 to 125 mg/dL indicate increased risk for diabetes (prediabetes).Fasting plasma glucose results greater than or equal to 126 mg/dL meet the criteria for diagnosis of diabetes. In the absence of unequivocal hyperglycemia, results should be confirmed by repeat testing. In a patient with classic symptoms of hyperglycemia or hyperglycemic crisis, random plasma glucose results greater than or equal to 200 mg/dL meet the criteria for diagnosis of diabetes.Reference: Standards of Medical Care in Diabetes 2016, [place] Diabetes Association. Diabetes Care. 2016.39(Suppl 1). Performed By: #### P T, PTT, CBC, BMP, MG1, TSH, HBA1C ####[facility], [place] [phone] Potassium molar conc 3.9 mmol/L Normal 3.7-5.1 [facility] Comment on above: Performed By: #### P T, PTT, CBC, BMP, MG1, TSH, HBA1C ####[facility] [place], [place] [phone] Sodium molar conc 135 mmol/L Low 136-144 [facility] Comment on above: Performed By: #### P T, PTT, CBC, BMP, MG1, TSH, HBA1C ####[facility] [place], [place] [phone] Urea nitrogen mass conc 22 mg/dL Normal 9-24 [facility] Comment on above: Performed By: #### P T, PTT, CBC, BMP, MG1, TSH, HBA1C ####[facility] [address] [place], [place] [phone] CASE MANAGEMon 03-08-2018 CASE MANAGEM HNO ID: [id number] thor: Kiara Skinner RNService: Care ManagementAuthor Type: Registered NurseType: Care Mgt Progress NoteFiled: 03/08/2018 1:57 PMNote Text:CARE MANAGEMENT PROGRESS NOTESERVICE DATE: 03/08/2018SERVICE TIME: 1:56 PM LOS: 1 dayPatient listed as self pay. Message left for [employer] rep, Austin Martinez [phone] to screen patient.SIGNATURE: Kiara Skinner RN PATIENT NAME: Joseluis VargasDATE: March 08, 2018 : 1:56 PM PAGER/CONTACT #: [phone] Normal [facility] CASE MGT INIT ASSESon 2017 CASE MGT INIT ASSES HNO ID: [id number] thor: Kiara Skinner, RNService: Care ManagementAuthor Type: Registered NurseType: Care Mgt Initial AssessmentFiled: 03/08/2018 9:47 AMNote Text:CARE MANAGEMENT: ASSESSMENT AND DISCHARGE PLANSERVICE DATE: 03/08/2018SERVICE TIME: 9:39 AMPRIMARY CARE PHYSICIAN:Gil Gonzalez, MDPhone: SUMXMCACH STATUS: InpatientMEDICAL:Patient/Re presentative Stated Goals:To return home to life as it wasHealth Insurance: N/ASelf payHealth Issues Impacting Discharge Plan: NoneLast Admission Date: Previous admit date: 12/27/2017Is this Within the Past 30 days? NoAdvance Directive:Health Literacy:1. How often do you need to have someone help you when you readinstructions, pamphlets, or other written material from your doctor orpharmacy? Never - 12. How confident are you filling out medical forms by yourself? Extremely- 1If Patient scores > 3 on either question, the following interventions wereput into place:Patient did not score > 3FUNCTIONAL AND COGNITIVE/BEHAVIORALPRIOR TO ADMISSION:Baseline Mental Status: Alert AND Oriented, Person, Place , Time andSituationFunctional Status: IndependentDoes Patient Currently Receive Any Community Services or Home Care? NoneEquipment Prior to Admission: NoneHas the Patient Been in a Long Term Facility in the Past 30 days? NoSOCIAL:Living Arrangement: HomeLives With: SpouseFinancial Resources: Retired and AmishPrimary Contact: Extended Emergency Contact InformationPrimary Emergency Contact: Rachel Vargsa Shwhahek: SonSupportive: YesOther Important Patient Contacts: NoneCaregiver Assessment:Caregiver is ready, willing and able to meet the patient's needs asrecommended by the inter-professional team? No Caregiver NeededPatient's transition needs and plan for meeting these needs: TBDDoes the patient have an acute stroke diagnosis, or has the patient had astroke during this admission? NoMedication Adherence:I am convinced of the importance of my prescription medication: Agreecompletely - 0I worry that my prescription medication will do more harm than good to meDisagree completely - 0I feel financially burdened by my sey-rb-wjmhyw expenses for myprescription medication: Disagree completely - 0Patient is categorized as low risk < 2Are you interested in bedside delivery of your medications? NoFood Concerns:In the Last Month, Have You had Trouble Getting Food? No trouble gettingfoodDuring the Last Month, Have You Worried Whether Your Food Would Run OutBefore You Had Enough Money to Buy More? NoIs the Patient Psychosocially Complex? NoASSESSMENT AND PLAN:Medical Needs: NonePsychosocial Needs: NoneFREEDOM OF CHOICE EXPLAINED:N/APOTENTIAL TRANSITION PLANSTo Be Sukewuxxoa26 year old male from [place], [place] admitted with CHF exacerbation.Lives with family, independent with ADL/IADL care prior to admission. [facility] used. CM role explained. Has friend that will transport him home.Basic discharge needs at this time. Will continue to assess for anyevolving needs and plan accordingly.SIGNATURE: Kiara Skinner RN PATIENT NAME: Joseluis VargasDATE: March 08, 2018 : 9:39 AM PAGER/CONTACT #: [phone] Normal [facility] CBCon 03-08-2018 Absolute nRBC <0.01 Normal <0.01 [facility] Comment on above: Performed By: #### P T, PTT, CBC, BMP, MG1, TSH, HBA1C ####[place] [phone] Erythrocyte distribution width Auto Ratio (RBC) 14.1 % Normal 11.5-15.0 [facility] Comment on above: Performed By: #### P T, PTT, CBC, BMP, MG1, TSH, HBA1C ####[place] [phone] Hematocrit Auto Volume Fraction (Bld) 40.2 % Normal 39.0-51.0 [facility] Comment on above: Performed By: #### P T, PTT, CBC, BMP, MG1, TSH, HBA1C ####[place] [phone] Hemoglobin mass conc (Bld) 13.5 g/dL Normal 13.0-17.0 [facility] Comment on above: Performed By: #### P T, PTT, CBC, BMP, MG1, TSH, HBA1C ####[place] [phone] MCH Auto Entitic mass (RBC) 29.5 pG Normal 26.0-34.0 [facility] Comment on above: Performed By: #### P T, PTT, CBC, BMP, MG1, TSH, HBA1C ####[address] [place] [phone] MCHC Auto mass conc (RBC) 33.6 g/dL Normal 30.5-36.0 [facility] Comment on above: Performed By: #### P T, PTT, CBC, BMP, MG1, TSH, HBA1C ####[address] [phone] MCV Auto Entitic volume (RBC) 88.0 fL Normal 80.0-100.0 [facility] Comment on above: Performed By: #### P T, PTT, CBC, BMP, MG1, TSH, HBA1C ####[address] [phone] Platelet mean volume Auto Entitic volume (Bld) 10.4 fL Normal 9.0-12.7 [facility] Comment on above: Performed By: #### P T, PTT, CBC, BMP, MG1, TSH, HBA1C ####[address] [phone] Platelets Auto #/vol (Bld) 162 10*3/uL Normal 150-400 [facility] Comment on above: Performed By: #### P T, PTT, CBC, BMP, MG1, TSH, HBA1C ####[address] [phone] RBC Auto #/vol (Bld) 4.57 10*6/uL Normal 4.20-6.00 [facility] Comment on above: Performed By: #### P T, PTT, CBC, BMP, MG1, TSH, HBA1C ####[address] [phone] WBC Auto #/vol (Bld) 6.25 10*3/uL Normal 3.70-11.00 [facility] Comment on above: Performed By: #### P T, PTT, CBC, BMP, MG1, TSH, HBA1C ####[address] [phone] ECG COMPLETE W INTERPRETATIO Non 03-08-2018 Protein mass conc NAME : Eliseo VARGAS ONASPID : [id number] : 1940 Gender : MaleRace : CaucasianORD : [id number] Procedure Date : Mar 07 2018 22:18:11Edit Date : Mar 13 2018 14:32:53 Diagnosis:SINUS RHYTHM WITH OCCASIONAL PREMATURE VENTRICULAR COMPLEXESMINIMAL VOLTAGE CRITERIA FOR LVH, MAY BE NORMAL VARIANTINFERIOR MYOCARDIAL INFARCTION , AGE UNDETERMINEDLATERAL T WAVE ABNORMALITYABNORMAL ECGConfirmed by JUDY HAMMOND M.D. ([id number]) on 03/13/2018 2:32:49 PM Ventricular Rate : 69 BPMAtrial Rate : 69 BPMP-R Interval : 184 msQRS Duration : 86 msQ-T Interval : 420 msQTC Calculation(Bezet) : 450 msP [place] : -24 degreesR [place] : 0 degreesT [place] : 146 degrees Test Reason : Location : 353 : 53 02 Overread By : JUDY HAMMOND M.D.Edited By : JUDY HAMMOND M.D.Referred By : ,Acquired by : HUMAIRA GOODMAN Normal [facility] Hemoglobin A1con 03-08-2018 Glucose mass conc 111 mg/dL Normal [facility] Comment on above: Result Comment: eAG: (Estimated average glucose) is a calculated value from HgbA1c and is product representative of the average blood glucose level in the last 2-3 month period. Performed By: #### P T, PTT, CBC, BMP, MG1, TSH, HBA1C ####[facility] [place], [place] [phone] Hemoglobin A1c/Hemoglobin.total mass fraction (Bld) 5.5 % Normal 4.3-5.6 [facility] Comment on above: Performed By: #### P T, PTT, CBC, BMP, MG1, TSH, HBA1C ####[place] [id number] [place], [place] [phone] Lipid Panel, Basicon 018 Cholesterol in HDL mass conc 62 mg/dL Normal >39 [facility] Comment on above: Result Comment: 40-5 9 mg/dL, Acceptable>59 mg/dL, High: Negative risk factor for coronary heart disease<40 mg/dL, Low: Positive risk factor for coronary heart disease Performed By: #### L IPB, JR ####[place] [id number] [place], [place] [phone] Cholesterol in LDL mass conc 166 mg/dL High <100 [facility] Comment on above: Result Comment: <100 mg/dL, Optimal 100-129 mg/dL, Near optimal/above optimal 130-159 mg/dL, Borderline high 160-189 mg/dL, High>189 mg/dL, Very highSecondary prevention optimal LDL Cholesterol levels are recommended to be < 70 mg/dL Performed By: #### L IPB, JR ####[address] [phone] Cholesterol mass conc 242 mg/dL High <200 [facility] Comment on above: Result Comment: <200 mg/dL, Desirable 200-239 mg/dL, Borderline high>239 mg/dL, High Performed By: #### L IPB, JR ####[address] [phone] Fasting Time Unknown Normal [facility] Comment on above: Performed By: #### L IPB, JR ####[address] [phone] LDL:HDL Ratio 2.68 High <2.54 [facility] Comment on above: Result Comment: Refe rence:1. National Cholesterol Education Program ATP III Guideline At-A-Glance Quick Desk Reference: National Heart, Lung, and Blood [place]. National Institutes of Health. 2001: NIH Publication No. 01-3305.2. An International Atherosclerosis Society position paper: global recommendations for the management of dyslipidemia: executive summary, Atherosclerosis. 2014: 232(2):410-413. Performed By: #### L IPB, JR ####[address] [phone] Non HDL Cholesterol 180 mg/dL High <130 [facility] Comment on above: Result Comment: <130 mg/dL, Optimal 130-159 mg/dL, Near optimal/above optimal 160-189 mg/dL, Borderline high 190-219 mg/dL, High>219 mg/dL, Very highSecondary prevention optimal non HDL Cholesterol levels are recommended to be < 100 mg/dL Performed By: #### L IPB, JR ####[place] [phone] TC:HDL Ratio 3.90 Normal <5.10 [facility] Comment on above: Performed By: #### L IPB, JR ####[place] [phone] Triglyceride mass conc 70 mg/dL Normal <150 [facility] Comment on above: Result Comment: <150 mg/dL, Normal 150-199 mg/dL, Borderline high 200-499 mg/dL, High>499 mg/dL, Very high Performed By: #### L IPB, JR ####[place] [phone] VLDL Cholesterol 14 mg/dL Normal <30 [facility] Comment on above: Performed By: #### L IPB, JR ####[place] [phone] Magnesiumon 03-08-2018 Magnesium mass conc 2.2 mg/dL Normal 1.7-2.3 [facility] Comment on above: Performed By: #### P T, PTT, CBC, BMP, MG1, TSH, HBA1C ####[place] [phone] NURSING PROGon 03-08-2018 Protein mass conc HNO ID: [id number] thor: Max (Rn) SHARON Eganervice: Cardiovascular MedicineAuthor Type: Registered NurseType: Nursing Progress NoteFiled: 03/08/2018 3:34 PMNote Text:Bedside echo with definity03/08/2018 3:34 PMOrder reviewed by nurse:yesMedications: Definity - dosage 2 ml given slow IVReaction: No Normal [facility] PT EDon 03-08-2018 PT ED HNO ID: [id number] thor: Elaina (Tech) CamilooService: Nutrition TherapyAuthor Type: Dietetic TechnicianType: Patient EducationFiled: 03/08/2018 9:32 AMNote Text:[facility] NUTRITION HEART FAILURE PATIENT EDUCATIONTOPIC: Survival Skills: DietPATIENT NAME: Joseluis VargasMRN: [id number] DATE: March 08, 2018Diagnosis: ADULT: Heart FailureREADINESS TO LEARNCognitive Ability: Alert and orientedMotivation to Learn: InterestedFamily Support: High - Very involved in pt careInstruction Provided to: Patient and family memberPatient Learns Best by: Individual InstructionWritten Instruction - Hand-outsVerbal InstructionFactors Affecting Learning: Unable to assessPhysical Limitations Affecting Learning: NoneLEARNING RESPONSEEnteral Nutrition Access Device: NonePatient/Family Response: Verbalizes understanding of Heart Failure Diet:Rationale of sodium restriction, food sources typically high in sodium,acceptable food choices, foods to avoid, seasoning alternatives, how toread a food label and fluid guidelines as applicable.Method of Instruction: Individual instructionWritten instruction - handoutsVerbal instructionFollow-Up Plan: Patient instructed to call with any further issuesRecommend - Recommend continued instruction and follow up as directedInstructional Aids Used: Guide to Health and Recovery BinderSupplemental Material Provided to Patient: Nutrition Therapy instructionmaterial: Your Sodium-Controlled DietReferral (Recommendation): heart failure survival skills classMNT Billing Type: Routine Care/15 min 2 unitsJAVI SanfordRPager: [id number] 20179:32 AM Normal [facility] Protimeon 03-08-2018 INR Coag RelTime (Bld) 1.1 {INR} Normal 0.9-1.3 [facility] Comment on above: Result Comment: Татьяна min K Antagonist (VKA) Therapeutic Range: INR 2 to 3 (Target INR of 2.5)Note: For patients treated with VKA drugs, such as warfarin, the [place] [employer] Physicians 2012 Guideline recommends a therapeutic INR range of 2 to 3 (target INR of 2.5). This recommendation includes high-risk patients with antiphospholipid syndrome with previous arterial or venous thromboembolism, current-generation mechanical or bioprosthetic aortic heart valve replacement.Note: Patients with mechanical aortic valve replacement and additional risk factors for thromboembolic events (atrial fibrillation, previous thromboembolism, LV dysfunction, hypercoagulable conditions) or an older generation mechanical AVR (i.e., ball in-Cage) or any mechanical MVR should have a INR therapeutic range of 2.5 to 3.5 (target INR of 3).Bouchra GH, et al. Chest 2012, 141:7S-47SNishruel RA, et al. [facility] 2017, 70: 252-289 Performed By: #### P T, PTT, CBC, BMP, MG1, TSH, HBA1C ####[address] [phone] PT Sec 11.3 sec Normal 9.7-13.0 [facility] Comment on above: Performed By: #### P T, PTT, CBC, BMP, MG1, TSH, HBA1C ####[address] [phone] TSHon 03-08-2018 Thyrotropin Qn 4.700 uU/mL Normal 0.400-5.50 0 [facility] Comment on above: Performed By: #### P T, PTT, CBC, BMP, MG1, TSH, HBA1C ####[address] [phone] Troponin Ton 03-08-2018 Troponin T.cardiac mass conc ug/L Normal 0.000-0.02 9 [facility] Comment on above: Performed By: #### L IPB, JR ####[address] [phone] Troponin T.cardiac mass conc ug/L Normal 0.000-0.02 9 [facility] Comment on above: Performed By: #### T NT ####[address] [phone] Basic Metabolic Panlon 03-07 Anion gap 3 molar conc 13 mmol/L Normal 9-18 [facility] [place] Comment on above: Performed By: #### C BCDMITRIYF BMP, JR ####[facility], [place] [phone] Calcium mass conc 9.4 mg/dL Normal 8.5-10.2 [facility] Comment on above: Performed By: #### C BCDMITRIYF, BMP, JR ####[place] [address] [place] [phone] Chloride molar conc 102 mmol/L Normal 97-105 [facility] Comment on above: Performed By: #### C BCDMITRIYF BMP, JR ####[place] [address] [place] [phone] CO2 molar conc 24 mmol/L Normal 22-30 [facility] [place] Comment on above: Performed By: #### C BCDIF, BMP, JR ####[place] [address] [place] [phone] Creatinine mass conc 1.04 mg/dL Normal 0.73-1.22 [facility] Comment on above: Performed By: #### C BCDIF, BMP, JR ####[place] [address] [place] [phone] eGFR- Amer. >60 Normal [facility] Comment on above: Performed By: #### C BCDIF, BMP, JR ####[place] [address], [place] [phone] GFR/1.73 sq M predicted among non-blacks MDRD vol rate/area (S/P/Bld) mL/min/{1.73_m2} Normal [facility] [place] Comment on above: Result Comment: eGFR (Estimated GFR) Units of measure: mL/min/1.73 meters squaredeGFR is derived from the reexpressed MDRD Study equation using the following parameters: serum creatinine, age, gender and race. The creatinine assay has been calibrated to be traceable to IDMS.An eGFR <60 mL/min/1.73m2 for >3 months is consistent with chronic kidney disease. Refer to KDOQI guidelines for clinical interpretation.In patients with unstable renal function, e.g. those with acute kidney injury, the eGFR may not accurately reflect actual GFR. Performed By: #### C BCDMITRIYFDICK, JR ####[facility], [place] [phone] Glucose mass conc 97 mg/dL Normal 74-99 [facility] Comment on above: Result Comment: The [place] Diabetes Association (ADA) provides guidance for cutoff values for fasting glucose and random glucose. The ADA defines fasting as no caloric intake for at least 8 hours. Fasting plasma glucose results between 100 to 125 mg/dL indicate increased risk for diabetes (prediabetes).Fasting plasma glucose results greater than or equal to 126 mg/dL meet the criteria for diagnosis of diabetes. In the absence of unequivocal hyperglycemia, results should be confirmed by repeat testing. In a patient with classic symptoms of hyperglycemia or hyperglycemic crisis, random plasma glucose results greater than or equal to 200 mg/dL meet the criteria for diagnosis of diabetes.Reference: Standards of Medical Care in Diabetes 2016, [place] Diabetes Association. Diabetes Care. 2016.39(Suppl 1). Performed By: #### C BCDMITRIYFDICK, JR ####[facility] [place], [place] [phone] Potassium molar conc 4.7 mmol/L Normal 3.7-5.1 [facility] Comment on above: Performed By: #### C BCDMITRIYF BMP, JR ####[facility] [address]CL[address], [place] [phone] Sodium molar conc 139 mmol/L Normal 136-144 [facility] Comment on above: Performed By: #### C BCDIFDICK, JR ####[facility] [address], [place] [phone] Urea nitrogen mass conc 22 mg/dL Normal 9-24 [facility] [place] Comment on above: Performed By: #### C BCDIF, BMP, JR ####[place] [address] [place] [phone] CBC and Differentialon 03-07 Abs Baso 0.03 k/uL Normal <0.11 [facility] [place] Comment on above: Performed By: #### C BCDIF, BMP, JR ####[place] [address] [place] [phone] Abs Quay 0.69 k/uL Normal <0.87 [facility] [place] Comment on above: Performed By: #### C BCDIF, BMP, JR ####[place] [address] [place] [phone] Abs Neut 3.08 k/uL Normal 1.45-7.50 [facility] [place] Comment on above: Performed By: #### C BCDIF, BMP, JR ####[place] [address] [place] [phone] Absolute nRBC <0.01 Normal <0.01 [facility] [place] Comment on above: Performed By: #### C BCDIF, BMP, JR ####[place] [address] [place] [phone] Basophils/100 WBC Auto (Bld) 0.5 % Normal [facility] [place] Comment on above: Performed By: #### C BCDIF, BMP, JR ####[place] [address] [place] [phone] DTYPE Auto Diff Normal [facility] [place] Comment on above: Performed By: #### C BCDIF, BMP, JR ####[place] [address] [place] [phone] Eosinophils Auto #/vol (Bld) 0.08 10*3/uL Normal <0.46 [facility] [place] Comment on above: Performed By: #### C BCDIF, BMP, JR ####[place] [address] [place] [phone] Eosinophils/100 WBC Auto (Bld) 1.2 % Normal [facility] [place] Comment on above: Performed By: #### C BCDICK REGALADO, JR ####[place] [address] [place] [phone] Erythrocyte distribution width Auto Ratio (RBC) 13.8 % Normal 11.5-15.0 [facility] [place] Comment on above: Performed By: #### C DICK LEE, JR ####[place] [address] [place] [phone] Hematocrit Auto Volume Fraction (Bld) 40.1 % Normal 39.0-51.0 [facility] [place] Comment on above: Performed By: #### C DICK LEE, JR ####[place] [address] [place] [phone] Hemoglobin mass conc (Bld) 13.7 g/dL Normal 13.0-17.0 [facility] [place] Comment on above: Performed By: #### C DICK LEE, JR ####[place] [address] [place] [phone] Lymphocytes Auto #/vol (Bld) 2.58 10*3/uL Normal 1.00-4.00 [facility] [place] Comment on above: Performed By: #### C BCDICK REGALADO, JR ####[place] [address] [place] [phone] Lymphocytes/100 WBC Auto (Bld) 39.9 % Normal [facility] [place] Comment on above: Performed By: #### C BCDICK REGALADO, JR ####[place] [address] [place] [phone] MCH Auto Entitic mass (RBC) 29.8 pG Normal 26.0-34.0 [facility] [place] Comment on above: Performed By: #### C BCDICK REGALADO, JR ####[place] [address] [place] [phone] MCHC Auto mass conc (RBC) 34.2 g/dL Normal 30.5-36.0 [facility] [place] Comment on above: Performed By: #### C DICK LEE, JR ####[place] [address] [place] [phone] MCV Auto Entitic volume (RBC) 87.4 fL Normal 80.0-100.0 [facility] [place] Comment on above: Performed By: #### C DICK LEE, JR ####[place] [address] [place] [phone] Monocytes/100 WBC Auto (Bld) 10.7 % Normal [facility] [place] Comment on above: Performed By: #### C DICK LEE, JR ####[place] [address] [place] [phone] Neutrophils/100 WBC Auto (Bld) 47.7 % Normal [facility] [place] Comment on above: Performed By: #### C DICK LEE, JR ####[place] [address] [place] [phone] NRBCs 0.0 /100 WBC Normal 0 [facility] [place] Comment on above: Performed By: #### C DICK LEE, JR ####[place] [address] [place] [phone] Platelet mean volume Auto Entitic volume (Bld) 9.9 fL Normal 9.0-12.7 [facility] [place] Comment on above: Performed By: #### C BCDICK REGALADO, JR ####[place] [address] [place] [phone] Platelets Auto #/vol (Bld) 152 10*3/uL Normal 150-400 [facility] [place] Comment on above: Performed By: #### C BCDICK REGALADO, JR ####[facility], [place] [phone] RBC Auto #/vol (Bld) 4.59 10*6/uL Normal 4.20-6.00 [facility] Comment on above: Performed By: #### C BCDIF, BMP, JR ####[facility] [address]CL[address], [place] [phone] WBC Auto #/vol (Bld) 6.47 10*3/uL Normal 3.70-11.00 [facility] Comment on above: Performed By: #### C BCDIF, BMP, JR ####[facility], [place] [phone] CT CHEST W IVCON PEon 2017 CT CHEST W IVCON PE * * *Final Report* * *DATE OF EXAM: Mar 07 2018 5:00PM [facility] 0540 - CT CHEST W IVCON PE / REASON: PE suspected, intermediate prob, positive D-dimer * * * * Physician Interpretation * * * * EXAMINATION: CHEST CT WITH CONTRAST (PULMONARY EMBOLISM PROTOCOL)CLINICAL HISTORY: PE suspected, intermediate prob, positive D-dimerTechnique: Spiral CT acquisition of the chest from the thoracic inlet to the upper abdomen following IV contrast.MQ: CTCPE_4Contrast: 125 mL Omnipaque 350 IVCT Dose-Length Product: 429 mGy*cmCT Dose Reduction Employed: Automated exposure control (AEC)Comparison: 11/03/2017 CTA chest, abdomen, and pelvis. 12/26/2017 chest radiographRESULT:Limitation s: Motion somewhat limits evaluation, particularly of the upper abdomen.Evaluation for thromboembolic disease: - Right heart chambers: No thromboembolic disease. - Main pulmonary arteries: No thromboembolic disease. - Lobar pulmonary arteries: No thromboembolic disease. - Segmental pulmonary arteries: No thromboembolic disease. - Subsegmental pulmonary arteries: No thromboembolic disease.Lines, tubes, and devices: None.Lung parenchyma and pleura: No focal consolidation. Slight amount of scattered linear opacities, most prominent at the lung bases, likely reflecting atelectasis. Development of septal and peribronchial thickening bilaterally, suggesting pulmonary interstitial edema/fluid overload. 7 mm nodule with calcification in the left lower lobe (5:235), may reflect remote granulomatous disease. 8 mm nodule with a peripheral calcification along the right minor fissure (5:156), may reflect a calcified intrafissural lymph node from remote granulomatous disease. 3 mm pulmonary nodule in the right upper lobe (5:56). . Several nodules in close proximity have developed at the peripheral aspect of the mid left lung-images 81 through 121. Most of these are likely related to thickened septa related to the described edema. Underlying nodule of different nature cannot BE excluded. Scattered calcified granulomas in the right lung. New area of groundglass opacification in the medial left upper lobe (5:95) is nonspecific. Interval development of simple appearing small right and trace left pleural effusions since 11/03/2017. No pneumothorax. There are trace secretions scattered in the airways (see for example lingular bronchus on 5:139).Thoracic inlet, heart, and mediastinum: Interval development of multiple enlarged mediastinal and hilar lymph nodes since 11/03/2017, as follows: 1.2 cm subaortic lymph node (4:98), 1.2 cm left paratracheal lymph node (4:101), 1.6 cm pretracheal lymph node (4:106), 1.0 cm subcarinal lymph node (4:128), 1.1 cm right hilar lymph node (4:128), and 1.0 cm left hilar lymph node (4:142). Calcified right hilar lymph node is noted. No lymphadenopathy in the axillary regions. Postprocedural changes from TAVR. The thoracic aorta and main pulmonary artery are normal in caliber. The cardiac chambers are normal in size. Changes from coronary artery bypass grafting. Tribal triple-vessel coronary artery atherosclerotic calcifications are noted, although the study is not optimized for coronary assessment. No pericardial effusion or thickening.Bones and soft tissues: No destructive bone lesion. Median sternotomy wires. Bilateral gynecomastia.Upper abdomen: No abnormality in the imaged upper abdomen.IMPRESSION:NO CT EVIDENCE OF PULMONARY EMBOLISM.DEVELOPMENT OF PERIBRONCHIAL AND SEPTAL THICKENING BILATERALLY SUGGESTING INTERSTITIAL EDEMA/FLUID OVERLOAD. NEW SMALL RIGHT AND TRACE LEFT PLEURAL EFFUSIONS.INTERVAL DEVELOPMENT OF MULTIPLE ENLARGED MEDIASTINAL AND HILAR LYMPH NODES, NONSPECIFIC AND MAY BE REACTIVE OR RELATED TO FLUID OVERLOAD STATUS..Incidental Finding: Follow-up for these incidentally detected lung nodules with CT exam is recommended in 6 months. If persistent on follow-up imaging, an additional follow-up CT is recommended at 18 months is recommended.Transcriptionis t: PSCB Transcribe Date/Time: Mar 07 2018 5:09PDictated by : Anai GRIMES examination was interpreted and the report reviewed and electronically signed by: OLIVE CRUZ MD on Mar 07 2018 6:04PM [id number] Normal [facility] D dimeron 03-07-2018 D dimer 2100 ng/mL FEU High <500 [facility] [place] Comment on above: Result Comment: The D-dimer assay can be used to exclude pulmonary embolism (PE) and deep vein thrombosis (DVT) in conjunction with a low pre-test probability.For patients with a suspected DVT, a D-dimer level below 500 ng/mL FEU has a negative predictive value of 99.2%, a sensitivity of 98.9%, and a specificity of 36.1%. For patients with a suspected PE, a D-dimer level below 500 ng/mL FEU has a negative predictive value of 99.1%, a sensitivity of 97.8%, and a specificity of 41.7%. Performed By: #### D DMER ####[facility] [address] [place], [place] [phone] ED NOTEon 03-07-2018 ED NOTE HNO ID: [id number] Author: Avila Baum, SHANTELL Service: Emergency Medicine Author Type: Registered Nurse Type: ED Notes Filed: 03/07/2018 8:48 PM Note Text: Report called to Quynh CORTES. Bed ready. Normal [facility] [place] ED NOTE HNO ID: [id number] thor: Avila CareyRn) Bautista, SHARONervice: Emergency MedicineAuthor Type: Registered NurseType: ED NotesFiled: 03/07/2018 7:34 PMNote Text:Assumed care of pt. Pt presenting to ED with c/o SOB. Pt states We wenton [place] 3 week trip to [place], and we tried to buy oxygen to help mebreath. When I got back I just could not catch my breath. Pt denies anyCP, AGUAYO, dizziness, SOB, or lightheadedness at this time. Pt able toambulate to bathroom, without becoming SOB. Pt on monitor, NSR 84. Pulseox 98% on RA. NAD noted. ABCs intact. Safety checks performed. Willcontinue to monitor. Normal [facility] [place] ED NOTE HNO ID: [id number] Author: Warren (Medic) Taylor Cuenca Service: Emergency Medicine Author Type: Entertainment Centre Manager and Rn [facility] Type: ED Notes Filed: 03/07/2018 2:26 PM Note Text: Labs were drawn and sent. Normal [facility] [place] ED NOTE HNO ID: [id number] thor: Micaela (Rn) SHARON Salaservice: Emergency MedicineAuthor Type: Registered NurseType: ED NotesFiled: 03/07/2018 2:17 PMNote Text: - Nursing Plan of Care initiated--- Care Assumed-- Acknowledged patient /family-- Initiated monitoring-- Monitor vital signs-- Continue to monitor for safety and comfort-- Bed rails x [address]-- Call lind in reach-- Education given on complaint specific Plan of Care: *Labs *Imaging * Medications * Length of stayPatient c/o + Shortness of Breath (h/o aortic valve replacement December.Had three week road trip, now having SOB. On ASA and Plavix) ABC's intact, breath sounds equal and clear bilaterally , RR even andunlabored, abdomen is round soft and non-tender, SAMUEL's x 4 and followscommands. Normal [facility] [place] ED NOTE HNO ID: [id number] Author: Nancy CareyRn) SHANTELL Fountain Service: (none) Author Type: Registered Nurse Type: ED Notes Filed: 03/07/2018 2:06 PM Note Text: Bed: E12-18 Expected date: Expected time: Means of arrival: Comments: Normal [facility] ED PROV NOTEon 03-07-2018 Protein mass conc HNO ID: [id number] thor: RENAE Navaervice: Emergency MedicineAuthor Type: PhysicianType: ED Provider NotesFiled: 03/08/2018 12:47 AMNote Text:ED Provider NotePatient Name: Joseluis Courtney SamMRN: [id number] DATE: 03/07/18HistoryPatient presents with:Shortness of Breath: h/o aortic valve replacement December. Had three weekroad trip, now having SOB. On ASA and Kbszie68 yo M with PMH including CAD s/p CABGs, Aortic Stenosis s/p TAVR 12/29,HL presenting to the ED today with SOB. Patient was doing well after hissurgery, no CP or SOB. Took a trip to [place] and developed SOB whilethere. Notes [place], and more noticeable shortness or breath when he istrying to sleep, no change if he is lying flat or sitting up though.States he developed chest pain [place] with holding pressure over his left upper chest wall,but no chest pressure, pain or palpitations associated with his SOBepisodes. Occasional cough, more frequent in AM, occasionally productiveof a white to yellow sputum. No fevers, N/V/D, is eating and drinkingwell. No Edema including in lower extremities, and no calf pain. Nohistory of blood clots.PAST MEDICAL HISTORYDiagnosis Date- Aortic stenosis- CAD (coronary artery disease)- Hyperlipidemia intol of statins- S/P angioplasty with stent- S/P CABG (coronary artery bypass graft) twice 1996x 1 2002 x3PAST SURGICAL HISTORYProcedure Laterality Date- CABG (1) VEIN GRAFT AND ARTERIAL GRAFT 1995- CABG (3) VEIN GRAFTS AND ARTERIAL GRAFT(S) 2001- HERNIA REPAIR HXFAMILY HISTORYProblem Relation Age of Onset- CHF [OTHER] Mother age 77- Myocardial infarction [OTHER] Father 73 - Coronary stent [OTHER] Brother 66 of leukemiaSocial HistorySocial History Main Topics- Smoking status: Never Smoker- Smokeless tobacco: Never Used- Alcohol use No- Drug use: No- Sexual activity: Not on fileALLERGIESAllergen Reactions- Kiahbib-Muv-Nci Red* Intolerance Statins caused myalgias, couldn't talk, affected my kidneysReview of SystemsConstitutional: Negative for appetite change, chills and fever.HENT: Negative for congestion, rhinorrhea and sore throat.Eyes: Negative for discharge.Respiratory: Positive for cough and shortness of breath. Negative forwheezing and stridor.Cardiovascular: Positive for chest pain (left sided with Jeep ride onvacation). Negative for palpitations and leg swelling.Gastrointestinal: Negative for abdominal pain, diarrhea, nausea andvomiting.Genitourinary: Positive for hematuria. Negative for dysuria.Musculoskeletal: Negative for arthralgias, gait problem, joint swellingand myalgias. No calf pain/swellingSkin: Negative for rash and wound.Neurological: Negative for syncope, weakness, light-headedness, numbnessand headaches.Psychiatric/Behav ioral: Negative for behavioral problems and confusion.Physical ExamBP 142/102 Pulse 85 Temp (Src) 97.9 (Oral) Resp 20 Ht 5' 5(1.65m) Wt 180 lb (81.6kg) SpO2 100% BMI 29.95 kg/(m2).Physical ExamConstitutional: He is oriented to person, place, and time. He appearswell-developed and well-nourished.HENT:Head: Normocephalic and atraumatic.Mouth/Throat: Oropharynx is clear and moist.Eyes: EOM are normal. Pupils are equal, round, and reactive to light.Neck: Normal range of motion. Neck supple. No JVD present.Cardiovascular: Normal rate, regular rhythm and intact distal pulses.No murmur heard.Loud B3Brecoghqk/Chest: Effort normal and breath sounds normal. He has nowheezes. He has no rales.Breathing easily without distress or increased effortAbdominal: Soft. There is no tenderness. There is no rigidity, no reboundand no guarding.Musculoskeletal: Normal range of motion. He exhibits no edema ortenderness.Negative saleem's sign bilaterally. No lower extremity edema or calftendernessNeurological: He is alert and oriented to person, place, and time.Skin: Skin is warm and dry. No rash noted.Psychiatric: He has a normal mood and affect. His behavior is normal.Nursing note and vitals reviewed.Diagnostic TestingED Labs Ordered and Reviewed - No data to displayProceduresED Course / Clinical ImpressionED Course as of Mar 08 45Others' DocumentationWed Mar 07, 20181447 CBC without clinically significant anemia, leukocytosis orthrombocytopenia [DS]1448 Mild interstitial prominence is seen suggesting mild edema. ?There isnew mild blunting at the right costophrenic angle from trace pleuraleffusion. There may be trace left pleural effusion as well. XR CHEST 2VFRONTAL/LAT [DS]1505 BMP without significant electrolyte abnormality or MICHELLE [DS]1505 Troponin within normal limits [DS]1535 Elevated above priors NT Pro BNP: (!) 3,139 [DS]1812 No PE, signs of edema CT CHEST W IVCON PE [DS]ED Course User Index[DS] ANGEL Sanfordlinical Impressions as of Mar 08 0045Acute pulmonary edema (HCC)MDM / Disposition / PlanMDMSIGNATURE: AUSTIN LIND DOEKLewis Interpretation:RHYTHM: Normal sinus rhythm at 75 beats per minute with 1 PVCAXIS: Normal axisINTERVALS: Normal HI intervalQRS COMPLEX: NormalST SEGMENT: Normal ST-T segmentsQT INTERVAL: NormalCOMPARED WITH PRIOR: Now with PVC, otherwise similarI saw and evaluated the patient. Discussed with the resident and agreewith resident's findings and plan as documented in the resident's notewith the following corrections/addenda:Mr. Vargas is a 78yo Zoroastrianism M with a h/o CAD s/p CABG (GRAJEDA-LAD) [id number] and redo CABG (2001) with severe s/p TAVR (12/27/17) who comes infor new [place] and PND with 1-pillow orthopnea and associated exertionallightheadedness and nausea that he first noted after taking a 3-day bustrip to [place]. He did not notice and LE swelling or pain during histrip or preceding his symptoms and denies any associated chestpain/palpitations. He denies any personal or family history of clottingdisorders and reports full compliance with his DAPT (clopidogrel/ASA). Heotherwise has had no recent infectious sx.He initially attributed his symptoms to the elevation ([place],where [place] was, is at [place] elevation of 6000 ft) and acquired supplemental OTCO2 and reports having some improvement in his symptoms, but he has notreturn to his baseline exercise tolerance since returning to [place]. He deniesassociated LE swelling, abdominal distension or changes in appetite/POintake. His documented weight today is 180lbs, which his c/w hisdocumented weight of 179lbs at his 01/12 post-TAVR cardiology appointment.His 1 month post-TAVR echo (in [place]) was reportedly unchanged from hisimmediate post-TAVR echo.OE: pleasant and non-toxic Zoroastrianism M appearing younger than stated agerrr, w2d8Yrngsve ctab with some scattered bronchiolitic breath sounds in the L baseabd soft, ntndDistally wwp, no LE edemaBedside US without RV strain/dilatation but notable for scattered B linesin 4 anterior lung grover, bilaterallyEKG is sinus @ 75 with occ PVCs, noted on monitorTWI in the I and aVL with TW flattening in the lateral precordial leads,otherwise unchangedBNP is elevated beyond prior values of 2000, now 3100, with interstitialedema on his CXR and e/o volume overload on his bedside US imaging.Will plan to diurese gently, repeat TTE and obtain and age-adjustedddimer.12:45 AMDdimer was notably elevated to 2100, with a BNP of 3,139.CT PE showed no e/o an acute PE but WAS c/w volume overload.He received 40mg IV furosemide and was already endorsing significantimprovement in his symptoms in the ED.Appreciate cards assistance - he was admitted to their service forcontinued mgmt and TTE in the AM.Britni Chowdhury MD03/08/18 0047 Normal [facility] EKG1on 03-07-2018 Protein mass conc NAME : Eliseo VARGAS ONASPID : [id number] : 1940 Gender : MaleRace : CaucasianORD : Procedure Date : Mar 07 2018 14:04:58Edit Date : Mar 11 2018 00:09:39 Diagnosis:SINUS RHYTHM WITH OCCASIONAL PREMATURE VENTRICULAR COMPLEXESMINIMAL VOLTAGE CRITERIA FOR LVH, MAY BE NORMAL VARIANTCANNOT EXCLUDE ANTERIOR MYOCARDIAL INFARCTION , AGE UNDETERMINEDABNORMAL ECGNOTE: PLEASE SEE PHYSICIAN'S NOTE FROM E.D. VISITNOTE: PLEASE SEE PHYSICIAN'S NOTE FROM EJacDJac VISITReconfirmed by GIL LLOYD M.D. ([id number]), supervisor receiving and processing MARLENA YOUNGER ([id number]) on 03/11/2018 12:09:29 AM Ventricular Rate : 75 BPMAtrial Rate : 75 BPMP-R Interval : 198 msQRS Duration : 94 msQ-T Interval : 414 msQTC Calculation(Bezet) : 462 msP Kingman : 19 degreesR Kingman : -15 degreesT Kingman : 113 degrees Test Reason : Location : 2 : EDNS Overread By : GABINO Prado,ERICEdited By : Ulises YOUNGERferred By : ,Acquired by : Jonel CONDON [facility] HISTORY PHYSICALon 8 HISTORY PHYSICAL HNO ID: [id number] thor: Tiffanie Velazquezervice: Cardiovascular MedicineAuthor Type: PhysicianType: HANDPFiled: 03/08/2018 9:15 AMNote Text: HEART and VASCULAR INSTITUTECARDIOVASCULAR MEDICINE HISTORY AND PHYSICAL (Template ID [id number])Joseluis [id number] SERVICE: Cardiovascular Medicine: InterventionDATE OF ADMISSION: 03/07/2018CHIEF COMPLAINTCHF exacerbationHISTORY OF PRESENT ILLNESSJoseluis Vargas is a 78 year old male who presents with progressiveshortness of breath to ED.PMH- CABG 1995 Grajeda-LAD ([facility]); redo CAB [facility]- severe s/p TAVR 26 mm Ewards on 12/27/[address] Villa.- osital, proximal and mid-distal RCA stenting on 11/22/2017 with 4.0/12 mmsynergy EES, 4.0/38 mm synergy ees and 3.5/[address] Cancino- HTN- HLDHe was doing well post TAVR. Returned home two days after TAVR on 12/29and was feeling well enough to travel to [place] with his family.He left for [place] on the 19 of February [facility]. [place] diff[place]ilty breathing [place] His symptoms stauyed about the same the whole.The symptoms are primarily exertion shortness of breath. No accompaniedchest pains, lightheaded, dizziness.Of note, no significant lower extremity swelling but he did havedifficulty with sleeping flat and has been sleeping in a recliner.His diet changed dramatically on his trip and he was eating a lot of fastfood including [employer] on a daily basis which is not normal for him.Weight of 187 today, prior weight was 180 on 03/07.He ultimately decided to come to the ED because he was bothered with thesymptoms after calling the intervention office.ED workup/evaluationAfebriel, HR 85, SBO 142/100 with 100% on 2L NC [place] [facility] [place] [facility] [facility] scan with no acute pulmonary embolus. Peribroncial and septalthickening bilaterally consistent with fluid overload with a small rightand trace left pleural effusion. Multiple lymph node enlargemtn whichcould be reactive vs fluid overload per report.Cr normal at 1.04. Troponin undetectable.NT probnp of 3100.He received IV lasix in ED with improvement in symptoms and brisk urineoutput.Weight of 187 today, prior weight was 180 on 03/07.PAST MEDICAL HISTORYPAST MEDICAL HISTORYDiagnosis Date- Aortic stenosis- CAD (coronary artery disease)- Hyperlipidemia intol of statins- S/P angioplasty with stent- S/P CABG (coronary artery bypass graft) twice 1995x 1 2001 x3 PAST SURGICAL HISTORYProcedure Laterality Date- CABG (1) VEIN GRAFT AND ARTERIAL GRAFT 1995- CABG (3) VEIN GRAFTS AND ARTERIAL GRAFT(S) 2001- HERNIA REPAIR HXFAMILY HISTORYFAMILY HISTORYProblem Relation Age of Onset- CHF [OTHER] Mother age 77- Myocardial infarction [OTHER] Father 73 - Coronary stent [OTHER] Brother 66 of leukemiaSOCIAL HISTORYSocial HistorySubstance Use Topics- Smoking status: Never Smoker- Smokeless tobacco: Never Used- Alcohol use NoHOME MEDICATIONSezetimibe (ZETIA) 10 mg tablet Take 1 tablet by mouth once daily.clopidogrel (PLAVIX) 75 mg tablet Take 1 tablet by mouth once daily.aspirin, enteric coated (ASPIRIN, ENTERIC COATED) 81 mg EC tablet Take 81mg by mouth once daily.INPATIENT MEDICATIONSCurrent hospital medications:lactated ringers infusion 40 mL/hr INTRAVENOUS CONTINUOUSiv contrast (radiology procedure) INTRAVENOUS DIRECTED PRNALLERGIESALLERGIESAllerg en Reactions- Ukcatls-Eul-Edq Red* Intolerance Statins caused myalgias, couldn't talk, affected my kidneysREVIEW OF PXRZTMY44 point negative as per hpiPHYSICAL EXAMBP 152/74 Pulse (!) 91 Temp 36.6 ?C (97.9 ?F) (Oral) Resp 16 Ht 165.1 cm (5' 5) Wt 84.4 kg (186 lb 1.1 oz) SpO2 96% BMI 30.96kg/m?General Appearance: Well developed and Well nourishedHEENT: JVP elevated to midneck at 90Lungs: ClearHeart: Regular rate AND rhythmAbdomen: Soft and Non-tenderSkin: WarmMusculoskeletal: No deformitiesNeurologic/Psych iatric: Oriented to time, place AND personDATALaboratory:Recent Labs WBC 6.47HB 13.7HCT 40.1PLT 152Recent Labs NA 139K 4.7CO2 24BUN 22CREAT 1.04GLUC 97Recent Labs TROPT <0.010Cholesterol, Total (mg/dL)Date Value12/29/2017 270 HDL Cholesterol (mg/dL)Date Value12/29/2017 62 LDL Cholesterol (mg/dL)Date Value12/29/2017 194 Triglyceride (mg/dL)Date Value12/29/2017 68 No results found for: WNM8GARQ:NSR with one PVC. No ST or T wave changes.Chest Radiograph:Mild interstitial prominence is seen suggesting mildedema. ?There is new mild blunting at the right costophrenic angle fromtrace pleural effusion. ?There may be trace left pleural effusion aswell. ?No pneumothorax.Echocardiogram :12/28- Left ventricular systolic function is mildly decreased. EF = 45 ? 5%(visualest.) Grade I left ventricular diastolic dysfunction.- The right ventricle is normal in size. Right ventricular systolicfunction islow normal.- S/P transcatheter aortic valve replacement. Buckley S3 prosthetic aorticvalve(size #26). There is trivial (trivial - 1+) aortic valve regurgitation.The peakgradient is 20 mmHg, the mean gradient is 11 mmHg and the dimensionlessvalveindex is 0.43.- Exam was compared with the prior CC echocardiographic exam performed on12/27/17ORCardiac Catheterization:11/22/2017PC I to the ostial, proximal, and mid-distal RCA with a 4.0/12 mm SynergyEES, 4.0/38 mm Synergy EES, and a 3.5/38 mm Synergy EES (post-dilated fromthe mid-segment back with a 4.0 mm NC)ASSESSMENT AND PLANMr. Sam is a 77 year old male with a history of hypertension,hyperlipidemia , coronary artery disease s/p CABG 1995 GRAJEDA-LAD?([facility]), redo CABG (2001 [facility]) and severe aortic stenosis,for pre-op TAVR with Dr. Cancino 12/27/17.Acute on chronic HFrEFEtiology - Ischemic CardiomyopathyEjection Fraction, LVIDd, RV - 45%, low normal RVValvular - Aortic stenosis s/p TAVR,Perfusion status: Warm extremitiesEstimated dry weight: 187 on admit, preivously 180Have ruled out PE givne long tour bus ride with CT scan. NTprobnp andsymptom improvement with diuresis is suggestive of diet (Salt intake) onhis trip as the likely etiology of acute exacerbation. Need to obtainecho to rule out any valvular dysfunction. Trivial AI and mean gradientof 11 on TTE from 10 weeks ago .PLAN- repeat echo to assure valve is functioning well without prostheticdysfunction. Previously with trivial AI and mean gradient of 11 on 12/28.- will start low dose lisinopril in AM given HFrEF (EF 45%) on prior echo- continue metoprolol home dose- not on diuretic at home. Will give IV lasix x 1 overnight and monitorin AM for need of redose. Previously not on diuretic. Imagine continueddiet control will be sufficient in future as this event was out of normfor patient when traveling- daily electrolytes- continue aspirin and plavix as per home med plan post TAVR- consider outpatient CHF followup for reduced EFCase to be discussed with José Manuel Ascencio [phone] (please see below for after hours communication)03/07/20188:34 PMFor communication after 5 pm on weekdays and after 12 pm on weekends,please page the following:- Clinical Cardiology patients on all floors: page [phone]- Other Cardiology patients on J5 and J6: page [phone]- Other Cardiology patients on J7 and J8: page [phone] STAFF PHYSICIAN NOTE OF PERSONAL INVOLVEMENT IN CAREMr Sam presents with heart failure after a recent successfultranscatheter aortic valve replacement for severe aortic stenosis. He hasalso recently undergone PCI to severe right coronary artery disease. Hepresents with a short history of heart failure symptoms related to dietaryindiscretion on vacation over the last 2 weeks. He reports no cough,hemoptysis, sputum, pleuritic chest pain or other pulmonary type symptomsand a CTPA was negative for PE. His BNP is elevated and cardiac enzymesare negative. His other blood work is unremarkable.His chest x-ray and CTsuggest mild pulmonary edema and he has clinically improved with just amodest dose of intravenous furosemide.He will undergo an echocardiogram to rule out issues with his recenttranscatheter aortic valve replacement although these are not clinicallyevident. He has had advice on the importance of salt and will beestablished on a small dose of oral furosemide.His CT has incidentally noted chest nodules or lymphadenopathy ofuncertain significance for which will refer him to the pulmonary clinicfor ongoing surveillance.I have reviewed the documentation obtained and documented by the Fellowand have reviewed and updated the problem list as appropriate. I havepersonally performed a face to face assessment of the patient and havepersonally participated in the angeles components. I have discussed the caseand management of the patient's care.Counseling (Inpatient): I personally spent 60 total minutes involved inthe care of this patient. Greater than 50% of the time was spentcounseling and/or coordinating care for the patient, the nature of whichis noted above.STAFF PHYSICIAN: Tiffanie Cancino, MDDATE OF SERVICE: March 08, 2018TIME OF SERVICE: 9:11 AM Normal [facility] NT Pro BNPon 03-07-2018 Protein mass conc 3139 pg/mL High <450 [facility] Comment on above: Performed By: #### N TBNP ####[facility] [address] [place], [place] [phone] NURSING PROGon 03-07-2018 Protein mass conc HNO ID: [id number] thor: Quynh (Rn) Awls, RNService: NursingAuthor Type: Registered NurseType: Nursing Progress NoteFiled: 03/08/2018 6:53 AMNote Text:Pt admittetd J53-2. Pt transferred safely. Pt AO X3. Skin assessment WNLno pressure injuries. ( SHANTELL layne)Pt has a abrasion to left knee. Normal [facility] PROGRESSon 03-07-2018 Protein mass conc HNO ID: [id number] thor: Mary (Ct) Prateek Winn: (none)Author Type: Clinical TechnicianType: Progress NotesFiled: 03/07/2018 4:55 PMNote Text: Radiology Service Progress NotePATIENT NAME: Joseluis VargasMRN: [id number] OF SERVICE: March 07, 2018TIME: 4:52 PMPATIENT IDENTITY VERIFICATION COMPLETED USING TWO (2) METHODS: Patientconfirmed name verbally and ID band matches..PATIENT GENDER DATA: MalePATIENT RELEVANT IMPLANT DATA REVIEWED: YesCONTRAST INDUCED NEPHROPATHY RISK FACTORS: Patient age > 60 yearsCREATININE:CreatinineD ate Value Ref Range Kbwrfo7803/07/2018 1.04 0.73 - 1.22 mg/dL Final01/12/2018 1.04 0.73 - 1.22 mg/dL Final12/29/2017 0.97 0.73 - 1.22 mg/dL Final eGFR-All Other RacesDate Value Ref Range Hkumyw2003/07/2018 >60 . FinalComment:eGFR (Estimated GFR) Units of measure: mL/min/1.73 meters squaredeGFR is derived from the reexpressed MDRD Study equation using thefollowingparameters: serum creatinine, age, gender and race. The creatinine assayhasbeen calibrated to be traceable to IDMS.An eGFR <60 mL/min/1.73m2 for >3 months is consistent with chronic kidneydisease. Refer to KDOQI guidelines for clinical interpretation.In patients with unstable renal function, e.g. those with acute kidneyinjury,the eGFR may not accurately reflect actual GFR. eGFR- AmericanDate Value Ref Range Gwiwnn6603/07/2018 >60 Final P.O.C.T. RESULTS: N/A March 07, 2018RADIOLOGIST NOTIFIED?: NoALLERGIES: Reviewed and unchangedCONTRAST ALLERGY: NO.PERIPHERAL IV ACCESS: Ambulatory: IV type: Existing peripheral IVutilized, Site assessment: Clean,Dry and Intact, Site disposition Left infor next appointmentRADIOLOGY DEPARTMENT: CT; Exam(s) Completed: PE StudySIGNED BY: RT Alessandro(R)(CT)March 07, 2018 4:52 PM Normal [facility] Protein mass conc HNO ID: [id number] thor: Martha Win (Rt)e: RadiologyAuthor Type: TechnicianType: Progress NotesFiled: 03/07/2018 2:36 PMNote Text: Radiology Service Progress NotePATIENT NAME: Joseluis VargasMRN: [id number] OF SERVICE: March 07, 2018TIME: 2:36 PMPATIENT IDENTITY VERIFICATION COMPLETED USING TWO (2) METHODS: Patientconfirmed name verbally and ID band matches..PATIENT GENDER DATA: MalePATIENT RELEVANT IMPLANT DATA REVIEWED: Not ApplicableRADIOLOGY DEPARTMENT: General X-ray: Exam(s) Completed: Chest X-RayPERIPHERAL IV DATA: Not applicableSIGNED BY: Camacho Degroot 2017 2:36 PM Normal [facility] Troponin Ton 03-07-2018 Troponin T.cardiac mass conc ug/L Normal 0.000-0.02 9 [facility] Comment on above: Performed By: #### C BCDIF, BMP, JR ####[facility] [address] [place], [place] [phone] XR CHEST 2V FRONTAL/LATon XR CHEST 2V FRONTAL/LAT * * *Final Report* * *DATE OF EXAM: Mar 07 2018 2:34PM EGX [id number] - XR CHEST 2V FRONTAL/LAT / REASON: Shortness of breath * * * * Physician Interpretation * * * * EXAMINATION: CHEST RADIOGRAPH (2 VIEW FRONTAL and LATERAL)Clinical History: Shortness of breathMQ: XC2_5Comparison: 12/26/2017RESULT:See ImpressionIMPRESSION:Lines, tubes, and devices: Sternotomy sutures and mediastinal clips are again seen. New transcatheter aortic valve. Several sternotomy sutures are broken as on the prior exam.Lungs and pleura: Mild interstitial prominence is seen suggesting mild edema. There is new mild blunting at the right costophrenic angle from trace pleural effusion. There may be trace left pleural effusion as well. No pneumothorax.Cardiomediasti nal silhouette: Stable cardiomediastinal silhouette. There is aortic atherosclerotic calcification.Other: .Plumber: JOSE ARMANDO Transcribe Date/Time: Mar 07 2018 2:41PDictated by : NALINI FOSS MDThis examination was interpreted and the report reviewed and electronically signed by: NALINI FOSS MD on Mar 07 2018 2:44PM [id number] Normal [facility] CNPNon 03-06-2018 CNPN Telephone (HVICTR) -------JOSELUIS VARGAS ([id number]) 1940 MDate Time Provider Department03/06/18 TIFFANIE CANCINO HVICTSergio During your visit today, we recorded the following information about you:Lou Nieto RN, RN 03/06/2018 4:49 PM Signed [facility] Contact Center Inbound Phone EncounterDATE of SERVICE: 03/06/2018TIME of SERVICE: 4:46 PMStatus: Non-urgent, needs attentionService/Provider: Tiffanie Golden MDReason for call: Shortness of BreathContact information: [phone]: Sent to [facility]: calling post discharge line. States they took a trip to [place]02/19-[place]03. Ever since then, he has has had issues with SOB on exertion/walkingaround. Request to be contacted at # listed above.Lou Nieto RNDate of Resolution: 03/06/2018Time of Resolution 4:46 PMChantale Che PA-C 03/06/2018 5:56 PM SignedSeen by Mary Becerril PA-C 01/12/2018 s/p TAVR was SOB at that time which was hisbaseline. He was going to see his local accounting manager cpa in a month with an echo.I was not able to reach the pt or his at number below.Mandi Lloyd RN 03/07/2018 11:28 AM SignedPatient is requesting a call back and can be reached at [phone] Rubio PA-C 03/07/2018 3:37 PM SignedPt is in the ER at this time being evaluated for the dyspnea.Allergies As of Date: 03/06/2018 Noted Allergy EpqdhzmvTIBJDHK-POX-YDG REDUCTASE INHIBIT*12/29/2017 5 - Intolerance Comments: Statins caused myalgias, couldn't talk, affected my kidneysDate Reviewed: 12/29/2017Reviewed by: Debbie CareyRn) SHANTELL Almeida - Fully AssessedReason for Visit: Post Dc Program Call - Needs Attn [[id number]]Prescriptions as of 03/06/2018 Sig: EZETIMIBE 10 MG TABLET Take 1 tablet by mouth once d* CLOPIDOGREL 75 MG TABLET Take 1 tablet by mouth once d* ASPIRIN 81 MG TABLET,DELAYED * Take 81 mg by mouth once angeles*Problem List As Of Date 03/06/2018 Noted Resolved CAD (coronary artery disease) [I25.10] More... Aortic stenosis [I35.0] Priority: A More... Other hyperlipidemia [E78.4] INVALID FOR* More... Blood clots in stool [K92.1] INVALID FOR* More... Status:Closed by LOU NIETO on 03/06/18 Normal [facility] Basic Metabolic Panlon 01-12 Anion gap 3 molar conc 11 mmol/L Normal -18 [facility] Comment on above: Performed By: #### C BC, BMP, PSA ####[facility] [address] [place], [place] [phone] Calcium mass conc 9.7 mg/dL Normal 8.5-10.2 [facility] Comment on above: Performed By: #### C BC, BMP, PSA ####[facility] [place], [place] [phone] Chloride molar conc 104 mmol/L Normal 97-105 [facility] Comment on above: Performed By: #### C BC, BMP, PSA ####[facility] [address] [place], [place] [phone] CO2 molar conc 24 mmol/L Normal 22-30 [facility] Comment on above: Performed By: #### C DICK GARCIA, PSA ####[facility] [place], [place] [phone] Creatinine mass conc 1.04 mg/dL Normal 0.73-1.22 [facility] Comment on above: Performed By: #### C DICK GARCIA, PSA ####[facility] [place], [place] [phone] eGFR- Amer. >60 Normal [facility] Comment on above: Performed By: #### C DICK GARCIA, PSA ####[facility] [place], [place] [phone] GFR/1.73 sq M predicted among non-blacks MDRD vol rate/area (S/P/Bld) mL/min/{1.73_m2} Normal [facility] Comment on above: Result Comment: eGFR (Estimated GFR) Units of measure: mL/min/1.73 meters squaredeGFR is derived from the reexpressed MDRD Study equation using the following parameters: serum creatinine, age, gender and race. The creatinine assay has been calibrated to be traceable to IDMS.An eGFR <60 mL/min/1.73m2 for >3 months is consistent with chronic kidney disease. Refer to KDOQI guidelines for clinical interpretation.In patients with unstable renal function, e.g. those with acute kidney injury, the eGFR may not accurately reflect actual GFR. Performed By: #### C DICK GARCIA, PSA ####[facility] [place], [place] [phone] Glucose mass conc 89 mg/dL Normal 74-99 [facility] Comment on above: Result Comment: The [place] Diabetes Association (ADA) provides guidance for cutoff values for fasting glucose and random glucose. The ADA defines fasting as no caloric intake for at least 8 hours. Fasting plasma glucose results between 100 to 125 mg/dL indicate increased risk for diabetes (prediabetes).Fasting plasma glucose results greater than or equal to 126 mg/dL meet the criteria for diagnosis of diabetes. In the absence of unequivocal hyperglycemia, results should be confirmed by repeat testing. In a patient with classic symptoms of hyperglycemia or hyperglycemic crisis, random plasma glucose results greater than or equal to 200 mg/dL meet the criteria for diagnosis of diabetes.Reference: Standards of Medical Care in Diabetes 2016, [place] Diabetes Association. Diabetes Care. 2016.39(Suppl 1). Performed By: #### C DICK GARCIA PSA ####[place] [address] [place] [address], [place] [phone] Potassium molar conc 5.1 mmol/L Normal 3.7-5.1 [facility] Comment on above: Performed By: #### C DICK GARCIA PSA ####[place] [address], [place] [phone] Sodium molar conc 139 mmol/L Normal 136-144 [facility] Comment on above: Performed By: #### C RADHA BMP, PSA ####[place] [address], [place] [phone] Urea nitrogen mass conc 25 mg/dL High 9-24 [facility] Comment on above: Performed By: #### C RADHA BMP, PSA ####[place] [address] [place], [place] [phone] CBCon 01-12-2018 Absolute nRBC <0.01 Normal <0.01 [facility] Comment on above: Performed By: #### C RADHA BMP PSA ####[place] [address], [place] [phone] Erythrocyte distribution width Auto Ratio (RBC) 13.5 % Normal 11.5-15.0 [facility] Comment on above: Performed By: #### C BC BMP, PSA ####[place] [address], [place] [phone] Hematocrit Auto Volume Fraction (Bld) 42.5 % Normal 39.0-51.0 [facility] Comment on above: Performed By: #### C BC BMP, PSA ####[facility] [address]CSam[address] [phone] Hemoglobin mass conc (Bld) 13.8 g/dL Normal 13.0-17.0 [facility] Comment on above: Performed By: #### C BC, BMP, PSA ####[place] [address] [phone] MCH Auto Entitic mass (RBC) 29.4 pG Normal 26.0-34.0 [facility] Comment on above: Performed By: #### C BC, BMP, PSA ####[place] [address] [phone] MCHC Auto mass conc (RBC) 32.5 g/dL Normal 30.5-36.0 [facility] Comment on above: Performed By: #### C BC, BMP, PSA ####[place] [address] [phone] MCV Auto Entitic volume (RBC) 90.4 fL Normal 80.0-100.0 [facility] Comment on above: Performed By: #### C BC, BMP, PSA ####[place] [address] [place] [phone] Platelet mean volume Auto Entitic volume (Bld) 10.1 fL Normal 9.0-12.7 [facility] Comment on above: Performed By: #### C BC, BMP, PSA ####[facility] [phone] Platelets Auto #/vol (Bld) 182 10*3/uL Normal 150-400 [facility] Comment on above: Performed By: #### C BC, BMP, PSA ####[place] [address] [phone] RBC Auto #/vol (Bld) 4.70 10*6/uL Normal 4.20-6.00 [facility] Comment on above: Performed By: #### C BC, BMP, PSA ####[facility] [address] [place], [place] [phone] WBC Auto #/vol (Bld) 7.36 10*3/uL Normal 3.70-11.00 [facility] Comment on above: Performed By: #### C BC, BMP, PSA ####[facility] [address], [place] [phone] CNOVon 01-12-2018 CNOV Office Visit (CATHMN) -------SAMJOSELUIS ([id number]) 1940 MDate Time Provider Department01/12/18 1:00 PM MARY BECERRIL) CATHMN During your visit today, we recorded the following information about you: Pulse Blood pressure Weight Height 72/minute 150/65 81.2 kg 1.676 mLramos Becerril PA-C 01/15/2018 10:02 AM SignedTransitional Care Management Progress NoteThe patients TCM visit was performed within the 14 days of discharge.Patient's Date of discharge: 12/29/17Date of initial coordinator contact after discharge: 01/01/18Discharge diagnosis: Severe aortic stenosisMedication review completed YESSENIA KimCProvider Documentation:In follow-up of hospitalization, Joseluis Vargas is a 77 year old malewith the chief complaint of follow up status post TAVRI have reviewed the patient?s last hospital course including diagnostic testingperformed during this hospitalization, their discharge medications, and myassessment and plan with the patient and any family members present at today?svisit.HPI:Mr. Vargas is a 77 year old male with a history of hypertension,hyperlipidemia , coronary artery disease s/p CABG 1995 GRAJEDA-LAD?([facility]),redo CABG (2001 [facility]) and severe aortic stenosis, who presents today for afollow up visit status post successful Transfemoral TAVR with a 26?mm EdwardsSapien S3 valve on 12/27/17.He admits to midsternal burning chest pain with shortness of breath withexertion such as walking briskly or climbing stairs, which resolves with rest.?On 11/22/17, he underwent PCI to the ostial, proximal, and mid-distal RCA with a4.0/12 mm Synergy EES, and 4.0/38 mm Synergy EES, and a 3.5/38 mm Synergy EES??Seen by Dr. Cancino 12/21/17, still ?He continues to experience exertionalshortness of breath and occasional episodes of chest tightness with noimprovement in his overall functional capacity as compared to prior tointervention. ?He reports no unstable sounding symptoms and continues totolerate his dual antiplatelet therapy well with no major bleeding problems.?He denies syncope or severe symptoms of heart failure with no orthopnea, PNDor edema.?He denies orthopnea, PND, palpitations, syncope, claudication, leg swelling,cough and wheezing.On 12/27/17, he underwent successful Transfemoral TAVR with a 26?mm EdwardsSapien S3 valve on 12/27/17.Echo post TAVR??stable.?EKG remained stable with no changes post TAVR.?The procedure sites remained stable with no signs of bruit of hematoma.?12/29/17 pt had small blood clot in stool.BP and H/H stableStop fish oil till 1 week fu visit.Stool softner, observe.Recheck H/H at 1 week return visit.?Address treatment of lipids (cholesterol) on return visit. Will start onezetemibe if truly statin intolerant and refer to prevention clinic ifsuboptimal controlHome off metoprolol (per Dr Cancino)Will need to follow BP at home and on follow up.?The patient remained HD stable and was discharged in stable condition.?Today, he presents feeling fantastic. He has been able to walk for 30minutes without any shortness of breath. Prior he was only able to walk acouple hundred feet. He denies any further episodes of chest pain.He denies any diaphoresis, dizziness, palpitations, syncope or TIA symptoms.PAST MEDICAL HISTORY: Reviewed and updatedALLERGIES: Reviewed and updatedMEDICATIONS: Reviewed and updatedSOCIAL HISTORY: Reviewed and updatedFAMILY HISTORY: Reviewed and updatedREVIEW OF SYSTEMS:Denies melena, hematochezia, hematuria, gingival bleeding, or prolongedepistaxis. No recent severe headaches, visual changes, difficulty swallowing,unilateral paralysis, slurred speech, heartburn, heat or cold intolerance,excessive thirst or urination. No skin ulcers or lesions. No claudication ormuscle myalgias. All Other Remaining ROS negative.All other systems reviewed and negative, other than HPI.PHYSICAL EXAMINATION:BP 150/65 Pulse 72 Ht 167.6 cm (5' 6) Wt 81.2 kg (179 lb) BMI28.89 kg/m?GENERAL: well developedNECK: no JVD, no carotid bruits, thyroid not palpable, no tendernessLUNGS: .clear to auscultation and no ralesHEART : regular rhythm, S1, S2 normal, no S3, no S4, grade 1/6 systolic murmuracross the base and along left sternal border, no heaves and no thrillsPV PULSES: pulses intact, no varicositiesABDOMEN: soft, non-tender, bowel sounds present, no organomegalyEXTREMITIES: normal examMUSCULOSKELETAL: Normal gait and ambulation, Able to undergo exercise testingand/or participate in an exercise program.NEUROLOGIC: Oriented to time, place and person, Mood AND Affect: appropriate1. I have reviewed the patient record including associated test results duringthe last hospitalization Yes2. I have reviewed Lab test Yes3. I have reviewed Radiology test Yes4. I reviewed assessment/plan with the patient/family member YesLaboratory Testing:Component Latest Ref Rng AND Units 01/12/2018Glucose 74 - 99 mg/dL 89BUN 9 - 24 mg/dL 25 (H)Creatinine 0.73 - 1.22 mg/dL 1.04Sodium 136 - 144 mmol/L 139Potassium 3.7 - 5.1 mmol/L 5.1Chloride 97 - 105 mmol/L 104CO2 22 - 30 mmol/L 24Anion Gap 9 - 18 mmol/L 11Calcium 8.5 - 10.2 mg/dL 9.7eGFR- >60eGFR-All Other Races . >60WBC 3.70 - 11.00 k/uL 7.36RBC 4.20 - 6.00 m/uL 4.70Hemoglobin 13.0 - 17.0 g/dL 13.8Hematocrit 39.0 - 51.0 % 42.5MCV 80.0 - 100.0 fL 90.4MCH 26.0 - 34.0 pG 29.4MCHC 30.5 - 36.0 g/dL 32.5RDW-CV 11.5 - 15.0 % 13.5Platelet Count 150 - 400 k/uL 182MPV 9.0 - 12.7 fL 10.1Absolute nRBC <0.01 k/uL <0.01PSA 0.00 - 2.59 ng/mL 1.48Electrocardiogram:Diagn osis:NORMAL SINUS RHYTHMPROLONGED QT INTERVAL OR TU FUSION, CONSIDER HYPOKALEMIAABNORMAL ECGASSESSMENT/PLAN(I35.0) Nonrheumatic aortic valve stenosis (primary encounter diagnosis)(Z95.3) Status post transcatheter aortic valve replacement (TAVR) usingbioprosthesis- Echo 10/29:EF = 48 ? 5%There is low flow, low gradient, severe aortic valve stenosis caused bycalcified valve and restricted opening. AV area is 0.87 cm? (0.44 cm?/m?) bycontinuity, VTI. The peak gradient is 36 mmHg, the mean gradient is 22 mmHg andthe dimensionless valve index is 0.23.?- Status post Transfemoral TAVR with a 26?mm Buckley Jennifer S3 valve on 12/27/17- Post TAVR Echo:EF = 45 ? 5%- S/P transcatheter aortic valve replacement. Buckley S3 prosthetic aorticvalve(size #26). There is trivial (trivial - 1+) aortic valve regurgitation. Thepeakgradient is 20 mmHg, the mean gradient is 11 mmHg and the dimensionless valveindex is 0.43- Continue aspirin for life, Plavix 1 year 2/2 PCI/ENE- Pt will follow up with local accounting manager cpa for 30 day visit and echo(I25.10) Coronary artery disease involving [place] coronary artery of nativeheart without angina pectoris- History of CABG 1995 GRAJEDA-LAD?([facility]), redo CABG (2001 [facility])- Status post successful PCI to the ostial, proximal, and mid-distal RCA with a4.0/12 mm Synergy EES, and 4.0/38 mm Synergy EES, and a 3.5/38 mm Synergy EESon 11/22/17- Stable CAD- Risk factor modification- Intolerant of statins, Prescribed Zetia- Continue aspirin, Plavix(E78.4) Other hyperlipidemia- Per discharge summary:Address treatment of lipids (cholesterol) on return visit. Will start onezetemibe if truly statin intolerant and refer to prevention clinic ifsuboptimal control- Prescription provided for Zetia(K92.1) Blood clots in stool- 12/29/17 pt had small blood clot in stool.- BP and H/H stablePer discharge summary:Stop fish oil till 1 week fu visit.Stool softner, observe.Recheck H/H at 1 week return visit- Resolved at today's visitMorris Joel 2017 7:14 AMReferring Provider: CHANEL VILLA [[id number]]Allergies As of Date: 01/12/2018 Noted Allergy LbdgvrdoKUQYSQR-CQV-NOL REDUCTASE INHIBIT*12/29/2017 5 - Intolerance Comments: Statins caused myalgias, couldn't talk, affected my kidneysDate Reviewed: 12/29/2017Reviewed by: Debbie (Rn) SHANTELL Almeida - Fully AssessedReason for Visit: Follow Up [171]Primary Visit Diagnosis:Nonrheumatic aortic valve stenosis [I35.0] Other Visit Diagnoses: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 artery disease involving [place] coronary artery of [place] heart without angina pectoris [I25.10] Other hyperlipidemia [E78.4] Blood clots in stool [K92.1]Order(s):ezetimibe (ZETIA) 10 mg tabletTake 1 tablet by mouth once daily.Disp: 90 tabletRfl: 3 clopidogrel (PLAVIX) 75 mg tabletTake 1 tablet by mouth once daily.Disp: 90 tabletRfl: 3Prescriptions as of 01/12/2018 Sig: EZETIMIBE 10 MG TABLET Take 1 tablet by mouth once d* CLOPIDOGREL 75 MG TABLET Take 1 tablet by mouth once d* ASPIRIN 81 MG TABLET,DELAYED * Take 81 mg by mouth once ang[place]*Problem List As Of Date 01/12/2018 Noted Resolved CAD (coronary artery disease) [I25.10] More... Aortic stenosis [I35.0] Priority: A More... Other hyperlipidemia [E78.4] INVALID FOR* More... Blood clots in stool [K92.1] INVALID FOR* More...Prescriptions ordered this encounter Disp Refills Start End EZETIMIBE 10 MG TABLET 90 t* 3 01/12/2018 Route: ORAL Sig: Take 1 tablet by mouth once daily. CLOPIDOGREL 75 MG TABLET 90 t* 3 01/12/2018 Route: ORAL Sig: Take 1 tablet by mouth once daily.Medications Discontinued During This Encounter clopidogrel (PLAVIX) 75 mg tablet 01/12/2018 Class: Historical Med Route: ORAL Sig: Take 75 mg by mouth once daily. Disc: Reason for discontinue is not on file.Disposition: Return for Pt will follow up with local accounting manager cpa for 30 day visit and echo.Follow-up and Disposition History RecordedEncounter Number: [id number] Status:Closed by MARY BECERRIL PA-C on 01/15/18 Normal [facility] PROGRESSon 01-12-2018 Protein mass conc HNO ID: [id number] thor: Mary Nguyen) Carolervice: (none)Author Type: Physician AssistantType: Progress NotesFiled: 01/15/2018 10:02 AMNote Text:Transitional Care Management Progress NoteThe patients TCM visit was performed within the 14 days of discharge.Patient's Date of discharge: 12/29/17Date of initial coordinator contact after discharge: 01/01/18Discharge diagnosis: Severe aortic stenosisMedication review completed AUSTIN Kim-CProvider Documentation:In follow-up of hospitalization, Joseluis Vargas is a 77 year oldmale with the chief complaint of follow up status post TAVRI have reviewed the patient?s last hospital course including diagnostictesting performed during this hospitalization, their dischargemedications, and my assessment and plan with the patient and any familymembers present at today?s visit.HPI:Mr. Vargas is a 77 year old male with a history of hypertension,hyperlipidemia , coronary artery disease [facility] ([facility]) and severe aortic stenosis, who presentstoday for a follow up visit status post successful Transfemoral TAVR witha 26?mm Buckley Jennifer S3 valve on 12/27/17.He admits to midsternal burning chest pain with shortness of breath withexertion such as walking briskly or climbing stairs, which resolves withrest.?On 11/22/17, he underwent PCI to the ostial, proximal, and mid-distal RCAwith a 4.0/12 mm Synergy EES, and 4.0/38 mm Synergy EES, and a 3.5/38 mmSynergy EES??Seen by Dr. Cancino 12/21/17, still ?He continues to experience exertionalshortness of breath and occasional episodes of chest tightness with noimprovement in his overall functional capacity as compared to prior tointervention. ?He reports no unstable sounding symptoms and continues totolerate his dual antiplatelet therapy well with no major bleedingproblems. ?He denies syncope or severe symptoms of heart failure with noorthopnea, PND or edema.?He denies orthopnea, PND, palpitations, syncope, claudication, legswelling, cough and wheezing.On 12/27/17, he underwent successful Transfemoral TAVR with a 26?mm EdwardsSapien S3 valve on 12/27/17.Echo post TAVR??stable.?EKG remained stable with no changes post TAVR.?The procedure sites remained stable with no signs of bruit of hematoma.?12/29/17 pt had small blood clot in stool.BP and H/H stableStop fish oil till 1 week fu visit.Stool softner, observe.Recheck H/H at 1 week return visit.?Address treatment of lipids (cholesterol) on return visit. Will start onezetemibe if truly statin intolerant and refer to prevention clinic ifsuboptimal controlHome off metoprolol (per Dr Cancino)Will need to follow BP at home and on follow up.?The patient remained HD stable and was discharged in stable condition.?Today, he presents feeling fantastic. He has been able to walk for 30minutes without any shortness of breath. Prior he was only able to walk acouple hundred feet. He denies any further episodes of chest pain.He denies any diaphoresis, dizziness, palpitations, syncope or TIAsymptoms.PAST MEDICAL HISTORY: Reviewed and updatedALLERGIES: Reviewed and updatedMEDICATIONS: Reviewed and updatedSOCIAL HISTORY: Reviewed and updatedFAMILY HISTORY: Reviewed and updatedREVIEW OF SYSTEMS:Denies melena, hematochezia, hematuria, gingival bleeding, or prolongedepistaxis. No recent severe headaches, visual changes, difficultyswallowing, unilateral paralysis, slurred speech, heartburn, heat or coldintolerance, excessive thirst or urination. No skin ulcers or lesions. Noclaudication or muscle myalgias. All Other Remaining ROS negative.All other systems reviewed and negative, other than HPI.PHYSICAL EXAMINATION:BP 150/65 Pulse 72 Ht 167.6 cm (5' 6) Wt 81.2 kg (179 lb) BMI28.89 kg/m?GENERAL: well developedNECK: no JVD, no carotid bruits, thyroid not palpable, no tendernessLUNGS: .clear to auscultation and no ralesHEART : regular rhythm, S1, S2 normal, no S3, no S4, grade 1/6 systolicmurmur across the base and along left sternal border, no heaves and nothrillsPV PULSES: pulses intact, no varicositiesABDOMEN: soft, non-tender, bowel sounds present, no organomegalyEXTREMITIES: normal examMUSCULOSKELETAL: Normal gait and ambulation, Able to undergo exercisetesting and/or participate in an exercise program.NEUROLOGIC: Oriented to time, place and person, Mood AND Affect:appropriate1. I have reviewed the patient record including associated test resultsduring the last hospitalization Yes2. I have reviewed Lab test Yes3. I have reviewed Radiology test Yes4. I reviewed assessment/plan with the patient/family member YesLaboratory Testing:Component Latest Ref Rng AND Units 01/12/2018Glucose 74 - 99 mg/dL 89BUN 9 - 24 mg/dL 25 (H)Creatinine 0.73 - 1.22 mg/dL 1.04Sodium 136 - 144 mmol/L 139Potassium 3.7 - 5.1 mmol/L 5.1Chloride 97 - 105 mmol/L 104CO2 22 - 30 mmol/L 24Anion Gap 9 - 18 mmol/L 11Calcium 8.5 - 10.2 mg/dL 9.7eGFR- >60eGFR-All Other Races . >60WBC 3.70 - 11.00 k/uL 7.36RBC 4.20 - 6.00 m/uL 4.70Hemoglobin 13.0 - 17.0 g/dL 13.8Hematocrit 39.0 - 51.0 % 42.5MCV 80.0 - 100.0 fL 90.4MCH 26.0 - 34.0 pG 29.4MCHC 30.5 - 36.0 g/dL 32.5RDW-CV 11.5 - 15.0 % 13.5Platelet Count 150 - 400 k/uL 182MPV 9.0 - 12.7 fL 10.1Absolute nRBC <0.01 k/uL <0.01PSA 0.00 - 2.59 ng/mL 1.48Electrocardiogram:Diagn osis:NORMAL SINUS RHYTHMPROLONGED QT INTERVAL OR TU FUSION, CONSIDER HYPOKALEMIAABNORMAL ECGASSESSMENT/PLAN(I35.0) Nonrheumatic aortic valve stenosis (primary encounter diagnosis)(Z95.3) Status post transcatheter aortic valve replacement (TAVR) usingbioprosthesis- Echo 10/29:EF = 48 ? 5%There is low flow, low gradient, severe aortic valve stenosis caused bycalcified valve and restricted opening. AV area is 0.87 cm? (0.44 cm?/m?)bycontinuity, VTI. The peak gradient is 36 mmHg, the mean gradient is 22mmHg andthe dimensionless valve index is 0.23.?- Status post Transfemoral TAVR with a 26?mm Buckley Jennifer S3 valve on12/27/17- Post TAVR Echo:EF = 45 ? 5%- S/P transcatheter aortic valve replacement. Buckley S3 prosthetic aorticvalve(size #26). There is trivial (trivial - 1+) aortic valve regurgitation.The peakgradient is 20 mmHg, the mean gradient is 11 mmHg and the dimensionlessvalveindex is 0.43- Continue aspirin for life, Plavix 1 year 2/2 PCI/ENE- Pt will follow up with local accounting manager cpa for 30 day visit and echo(I25.10) Coronary artery disease involving k[place] coronary artery ofnative heart without angina pectoris- History of CABG 1995 GRAJEDA-LAD?([facility]), redo CABG (2001 [facility])- Status post successful PCI to the ostial, proximal, and mid-distal RCAwith a 4.0/12 mm Synergy EES, and 4.0/38 mm Synergy EES, and a 3.5/38 mmSynergy EES on 11/22/17- Stable CAD- Risk factor modification- Intolerant of statins, Prescribed Zetia- Continue aspirin, Plavix(E78.4) Other hyperlipidemia- Per discharge summary:Address treatment of lipids (cholesterol) on return visit. Will start onezetemibe if truly statin intolerant and refer to prevention clinic ifsuboptimal control- Prescription provided for Zetia(K92.1) Blood clots in stool- 12/29/17 pt had small blood clot in stool.- BP and H/H stablePer discharge summary:Stop fish oil till 1 week fu visit.Stool softner, observe.Recheck H/H at 1 week return visit- Resolved [facility] Morris Becerril 2017 7:14 AM Normal [facility] PSA, Diagnosticon 01-12-2018 PSA, Diagnostic 1.48 ng/mL Normal 0.00-2.59 [facility] Comment on above: Result Comment: Morris santiago PSA test methodology used is the Electrochemiluminescence Immunoassay. Performed By: #### C BC, BMP, PSA ####[facility] [address] [place], [place] [phone] CNCOon 01-05-2018 CNCO Letter [address]velino Paiz [facility] andCardiovascular Surgery / J4-1Phone: Apt: [phone] 2017Gil Gonzalez MDFAX: [phone]: Joseluis Vargas [facility] NO: [id number] Dr. Gonzalez:Your patient underwent a TAVR, Transcatheterization Aortic Replacement Valve,at [facility] on 12/27/17. The following is a copy of the patient'soperative report.It was a pleasure to participate in the care of your patient.Sincerely,Valentina Paiz, MDSurgical Director, Transcatheter Aortic Valve ProgramSsouthampton memorial hospital Cardiac SurgeonSM/de Normal [facility] Basic Metabolic Panlon 12-29 Anion gap 3 molar conc 15 mmol/L Normal -18 [facility] Comment on above: Performed By: #### C BCDIF, PT, CMP, NTBNP ####[place] [id number]CS[address] [place] [phone] Calcium mass conc 8.5 mg/dL Normal 8.5-10.2 [facility] Comment on above: Performed By: #### C BCDIF, PT, CMP, NTBNP ####[place] [address] [address] [place] [phone] Chloride molar conc 101 mmol/L Normal 97-105 [facility] Comment on above: Performed By: #### C BCDIF, PT, CMP, NTBNP ####[place] [address] [address] [place] [phone] CO2 molar conc 22 mmol/L Normal 22-30 [facility] Comment on above: Performed By: #### C BCDIF, PT, CMP, NTBNP ####[place] [address] [address] [place] [phone] Creatinine mass conc 0.97 mg/dL Normal 0.73-1.22 [facility] Comment on above: Performed By: #### C BCDIF, PT, CMP, NTBNP ####[place] [id number]CS[address] [place] [phone] eGFR- Amer. >60 Normal [facility] Comment on above: Performed By: #### C BCDIF, PT, CMP, NTBNP ####[place] [address] [address] [place] [phone] GFR/1.73 sq M predicted among non-blacks MDRD vol rate/area (S/P/Bld) mL/min/{1.73_m2} Normal [facility] Comment on above: Result Comment: eGFR (Estimated GFR) Units of measure: mL/min/1.73 meters squaredeGFR is derived from the reexpressed MDRD Study equation using the following parameters: serum creatinine, age, gender and race. The creatinine assay has been calibrated to be traceable to IDMS.An eGFR <60 mL/min/1.73m2 for >3 months is consistent with chronic kidney disease. Refer to KDOQI guidelines for clinical interpretation.In patients with unstable renal function, e.g. those with acute kidney injury, the eGFR may not accurately reflect actual GFR. Performed By: #### C BCDIF, PT, CMP, NTBNP ####[facility] [place], [place] [phone] Glucose mass conc 83 mg/dL Normal 74-99 [facility] Comment on above: Result Comment: The [place] Diabetes Association (ADA) provides guidance for cutoff values for fasting glucose and random glucose. The ADA defines fasting as no caloric intake for at least 8 hours. Fasting plasma glucose results between 100 to 125 mg/dL indicate increased risk for diabetes (prediabetes).Fasting plasma glucose results greater than or equal to 126 mg/dL meet the criteria for diagnosis of diabetes. In the absence of unequivocal hyperglycemia, results should be confirmed by repeat testing. In a patient with classic symptoms of hyperglycemia or hyperglycemic crisis, random plasma glucose results greater than or equal to 200 mg/dL meet the criteria for diagnosis of diabetes.Reference: Standards of Medical Care in Diabetes 2016, [place] Diabetes Association. Diabetes Care. 2016.39(Suppl 1). Performed By: #### C BCDIF, PT, CMP, NTBNP ####[facility] [place], [place] [phone] Potassium molar conc 4.3 mmol/L Normal 3.7-5.1 [facility] Comment on above: Result Comment: Resu lts may be falsely increased due to interference by hemolysis. Suggest reorder as clinically indicated. Performed By: #### C BCDIF, PT, CMP, NTBNP ####[facility] [address] [place] [phone] Sodium molar conc 138 mmol/L Normal 136-144 [facility] Comment on above: Performed By: #### C BCDIF, PT, CMP, NTBNP ####[address] Av[address] [place] [phone] Urea nitrogen mass conc 15 mg/dL Normal 9-24 [facility] Comment on above: Performed By: #### C BCDIF, PT, CMP, NTBNP ####[place] [phone] CBC and Differentialon 12-29 Abs Baso <0.03 Normal <0.11 [facility] Comment on above: Performed By: #### C BCDIF, PT, CMP, NTBNP ####[place] [phone] Abs Quay 0.87 k/uL High <0.87 [facility] Comment on above: Performed By: #### C BCDIF, PT, CMP, NTBNP ####[place] [phone] Abs Neut 3.94 k/uL Normal 1.45-7.50 [facility] Comment on above: Performed By: #### C BCDIF, PT, CMP, NTBNP ####[address] AveCSam[address] [phone] Absolute nRBC <0.01 Normal <0.01 [facility] Comment on above: Performed By: #### C BCDIF, PT, CMP, NTBNP ####[address] [place] [phone] Basophils/100 WBC Auto (Bld) 0.3 % Normal [facility] Comment on above: Performed By: #### C BCDIF, PT, CMP, NTBNP ####[facility] [address] [place], [place] [phone] DTYPE Auto Diff Normal [facility] Comment on above: Performed By: #### C BCDIF, PT, CMP, NTBNP ####[place] [phone] Eosinophils Auto #/vol (Bld) 0.27 10*3/uL Normal <0.46 [facility] Comment on above: Performed By: #### C BCDIF, PT, CMP, NTBNP ####[phone] Eosinophils/100 WBC Auto (Bld) 3.6 % Normal [facility] Comment on above: Performed By: #### C BCDIF, PT, CMP, NTBNP ####[place] [phone] Erythrocyte distribution width Auto Ratio (RBC) 14.1 % Normal 11.5-15.0 [facility] Comment on above: Performed By: #### C BCDIF, PT, CMP, NTBNP ####[place] [phone] Hematocrit Auto Volume Fraction (Bld) 41.3 % Normal 39.0-51.0 [facility] [place] Comment on above: Performed By: #### C BCDIF, PT, CMP, NTBNP ####[place] [phone] Hemoglobin mass conc (Bld) 13.6 g/dL Normal 13.0-17.0 [facility] [place] Comment on above: Performed By: #### C BCDIF, PT, CMP, NTBNP ####[address] [place] [phone] Lymphocytes Auto #/vol (Bld) 2.38 10*3/uL Normal 1.00-4.00 [facility] [place] Comment on above: Performed By: #### C BCDIF, PT, CMP, NTBNP ####[facility], [place] [phone] Lymphocytes/100 WBC Auto (Bld) 31.8 % Normal [facility] [place] Comment on above: Performed By: #### C BCDIF, PT, CMP, NTBNP ####[place] [address] AveClevelMatthew Ville [phone] MCH Auto Entitic mass (RBC) 29.2 pG Normal 26.0-34.0 [facility] [place] Comment on above: Performed By: #### C BCDIF, PT, CMP, NTBNP ####[place] [address]CSamantha [place]ille [phone] MCHC Auto mass conc (RBC) 32.9 g/dL Normal 30.5-36.0 [facility] [place] Comment on above: Performed By: #### C BCDIF, PT, CMP, NTBNP ####[place] [address]CSamantha [place] [phone] MCV Auto Entitic volume (RBC) 88.6 fL Normal 80.0-100.0 [facility] [place] Comment on above: Performed By: #### C BCDIF, PT, CMP, NTBNP ####[place] [address]am[address] [place] [phone] Monocytes/100 WBC Auto (Bld) 11.6 % Normal [facility] [place] Comment on above: Performed By: #### C BCDIF, PT, CMP, NTBNP ####[place] [address] AveClevelMatthew [place] [phone] Neutrophils/100 WBC Auto (Bld) 52.7 % Normal [facility] [place] Comment on above: Performed By: #### C BCDIF, PT, CMP, NTBNP ####[place] [address] AveClevelandTodd [place] [phone] NRBCs 0.0 /100 WBC Normal 0 [facility] [place] Comment on above: Performed By: #### C BCDIF, PT, CMP, NTBNP ####[address] [phone] Platelet mean volume Auto Entitic volume (Bld) 10.7 fL Normal 9.0-12.7 [facility] [place] Comment on above: Performed By: #### C BCDIF, PT, CMP, NTBNP ####[address] [phone] Platelets Auto #/vol (Bld) 120 10*3/uL Low 150-400 [facility] [place] Comment on above: Result Comment: Resu lt checked and verifiedNo clot detected. Performed By: #### C BCDIF, PT, CMP, NTBNP ####[address] [phone] RBC Auto #/vol (Bld) 4.66 10*6/uL Normal 4.20-6.00 [facility] Comment on above: Performed By: #### C BCDIF, PT, CMP, NTBNP ####[address] [phone] WBC Auto #/vol (Bld) 7.49 10*3/uL Normal 3.70-11.00 [facility] Comment on above: Performed By: #### C BCDIF, PT, CMP, NTBNP ####[address] [phone] Lipid Panel, [facility] -18-2 [phone] Cholesterol in HDL mass conc 62 mg/dL Normal >39 [facility] [place] Comment on above: Result Comment: 40-5 9 mg/dL, Acceptable>59 mg/dL, High: Negative risk factor for coronary heart disease<40 mg/dL, Low: Positive risk factor for coronary heart disease Performed By: #### L IPB ####[address] [phone] Cholesterol in LDL mass conc 194 mg/dL High <100 [facility] [place] Comment on above: Result Comment: <100 mg/dL, Optimal 100-129 mg/dL, Near optimal/above optimal 130-159 mg/dL, Borderline high 160-189 mg/dL, High>189 mg/dL, Very highSecondary prevention optimal LDL Cholesterol levels are recommended to be < 70 mg/dL Performed By: #### L IPB ####[address] [phone] Cholesterol mass conc 270 mg/dL High <200 [facility] Comment on above: Result Comment: <200 mg/dL, Desirable 200-239 mg/dL, Borderline high>239 mg/dL, High Performed By: #### L IPB ####[address] [phone] Fasting Time Unknown Normal [facility] [place] Comment on above: Performed By: #### L IPB ####[address] [phone] LDL:HDL Ratio 3.13 High <2.54 [facility] [place] Comment on above: Result Comment: Refe giuliano:1. National Cholesterol Education Program ATP III Guideline At-A-Glance Quick Desk Reference: National Heart, Lung, and Blood [place]. National Institutes of Health. 2001: NIH Publication No. 01-3305.2. An International Atherosclerosis Society position paper: global recommendations for the management of dyslipidemia: executive summary, Atherosclerosis. 2014: 232(2):410-413. Performed By: #### L IPB ####[address] [phone] Non HDL Cholesterol 208 mg/dL High <130 [facility] Comment on above: Result Comment: <130 mg/dL, Optimal 130-159 mg/dL, Near optimal/above optimal 160-189 mg/dL, Borderline high 190-219 mg/dL, High>219 mg/dL, Very highSecondary prevention optimal non HDL Cholesterol levels are recommended to be < 100 mg/dL Performed By: #### L IPB ####[place] [phone] TC:HDL Ratio 4.35 Normal <5.10 [facility] [place] Comment on above: Performed By: #### L IPB ####[address] [phone] Triglyceride mass conc 68 mg/dL Normal <150 [facility] [place] Comment on above: Result Comment: <150 mg/dL, Normal 150-199 mg/dL, Borderline high 200-499 mg/dL, High>499 mg/dL, Very high Performed By: #### L IPB ####[place] [phone] VLDL Cholesterol 14 mg/dL Normal <30 [facility] Comment on above: Performed By: #### L IPB ####[place] [phone] OPERATIVE NOon 12-29-2017 OPERATIVE NO HNO ID: [id number] thor: Valentina Saldana: Cardiac SurgeryAuthor Type: PhysicianType: Operative ReportFiled: 01/04/2018 7:53 AMNote Text:The [address] [address] or (565) [place] O N F I D E N T I A L I N F O Sergio M A T I O N --------STANDARD [facility] DOCUMENTOPERATIVE REPORTPatient Name: Joseluis VargasPatient of Surgery: 12/27/2017Sushoaib Eyelet Maker(s):Maricruz Salter MDAssistant(s):Renae: Rody/Radha:Operations: Transfemoral implantation of aortic valveAnesthesia:MACPreopera tive Diagnosis:Severe and comorbiditiesPostoperative Diagnosis:SameOperative Indications:SameOperative Findings:NoneOperative Procedure:Sterile technique was used throughout the case. All vascular access wasobtained using modified Seldinger technique by the cardiology team. A 5Fsheath was placed in the right femoral artery and another inferior to theoriginal one and a 6F sheath was placed in the right femoral vein. Next, atemporary pacing wire was placed in the right ventricle via the venoussheath A 5F straight flush catheter was placed in the RFA sheath andpositioned in the non coronary cusp. Right radial artery access wasobtained and a 5/6F slender sheath was placed in the right radial artery.Over a Whisper J wire, a [place] embolic protection device was deployed.?The 5F sheath in the right femoral artery was removed and the arteriotomywas preclosed with 1 Perclose. After preclosure, the access site wasupsized directly to a 14-Fr Esheath delivery sheath over a Lunderquistwire. I joined the table. After securing the delivery sheath, a 5F AL1was advanced to the aortic root. Using a 0.035 straight wire, the aorticvalve was crossed. Over the wire, the AL1 catheter was advanced across thevalve. The straight wire was removed and exchanged for a preformed AmplatzExtrastiff J wire. Next, the Buckley Jennifer S3 delivery system with amounted valve was delivered to the ascending aorta. After confirmingappropriate placement across the aortic valve using aortic rootangiogaphy, the 26mm Buckley Jennifer S3 valve was deployed with rapidventricular pacing at 180 bpm with nominal volume. Following valvedeployment, the transthoracic echocardiogram and aortic root angiogramrevealed a well placed and well seated valve and no evidence ofsignificant aortic regurgitation.Next, the delivery catheter system was removed. The [place] embolicprotection device was removed over the Whisper J wire in the usualfashion. The right femoral artery superior access site was closed usingthe predeployed 1 Perclose and 1 Angioseal. A sheath injection angiographyof the right femoral artery rand showed normal flow without significantstenosis, dissection, or contrast extravasation. The remaining sheaths inthe femoral arteries and/or veins were pulled and manual compressionhemostasis applied. Hemostasis was obtained at the right radial arterysite with a Vasc Band inflated to 12.00 cc.?Estimated Blood Loss: MinimalDrains: NoneSpecimens: There were no specimens sent to Pathology.Counts: Counts were reported correct by the circulating nurse.Incision:Dressings:El ectronically SIGNED by Licensed Independent Practitioner: MD Shanna Normal [facility] [place] PROGRESSon 12-29-2017 Protein mass conc HNO ID: [id number] thor: Ken Nguyen) SchraiderService: Cardiovascular MedicineAuthor Type: Physician AssistantType: Progress NotesFiled: 12/29/2017 12:55 PMNote Text: HEART and VASCULAR INSTITUTECARDIOVASCULAR MEDICINE PROGRESS NOTE(Template ID [id number])Joseluis [id number] SERVICE: Hvi Card InterventionHOSPITAL DAY: # 2INTERVAL HISTORYNo SOB, episodic fullness left chest, not exertional, gone now. Also,small blood clot in stool.PHYSICAL EXAMBP 126/62 Pulse 68 Temp 36.8 ?C (98.2 ?F) (Oral) Resp 22 Ht167.6 cm (5' 6) Wt 83.2 kg (183 lb 6.4 oz) SpO2 94% BMI 29.60kg/m?Intake/Output Summary (Last 24 hours) at 12/29/17 1255Last data filed at 12/29/17 0900 Gross per 24 hourIntake 1410 mlOutput 1725 mlNet -315 mlGeneral Appearance: Well developedHEENT: Neck: JVD - noLungs: ClearHeart: Regular rate AND rhythm, 1/6 TIFF LSBAbdomen: Soft, Non-tender and Organomegaly - noSkin: Warm and DryExtremities: No edema. Pulses palpable throughout. R/L groin withouthematoma or bruitMusculoskeletal: No deformitiesNeurologic/Psych iatric: Oriented to time, place AND personMEDICATIONSCurrent hospital medications:aspirin, enteric coated 81 mg tab(s) (ASPIRIN, ENTERIC COATED) 81 mg ORALDAILYclopidogrel 75 mg tab(s) (PLAVIX) 75 mg ORAL DAILYcephALEXin 500 mg cap(s) (KEFLEX) 500 mg ORAL q 8 Hheparin 5,000 Units injection 5,000 Units SUBCUTANEOUS q 12 HDATARecent Labs 12/28/1800WBC 7.49 7.70HB 13.6 13.0HCT 41.3 38.4*PLT 120* 135*Recent Labs 12/28/1800NA 138 135*K 4.3 4.1CO2 22 20*BUN 15 24CREAT 0.97 1.01GLUC 83 89ECGDiagnosis:SINUS RHYTHM WITH 1ST DEGREE AV BLOCK WITH OCCASIONAL PREMATUREVENTRICULAR COMPLEXES AND PREMATURE ATRIAL COMPLEXES.LATERAL T WAVE ABNORMALITYABNORMAL ECG?Ventricular Rate : 71 ?BPMAtrial Rate : 71 ?BPMP-R Interval : 256 ?msQRS Duration : 88 ?msQ-T Interval : 408 ?msQTC Calculation(Bezet) : 443 ?msReviewed w Dr Jeong AND [facility]. Sam is a 77 year old male with a history of hypertension,hyperlipidemia , coronary artery disease s/p CABG 1995 G[facility]EDA-LAD?([facility]), redo CABG (2001 [facility]) and severe aortic stenosis,for pre-op TAVR with Dr. Cancino 12/27/17.ProblemAortic Stenosis - Echo 10/29:EF = 48 ? 5%There is low flow, low gradient, severe aortic valve stenosis caused bycalcified valve and restricted opening. AV area is 0.87 cm? (0.44 cm?/m?)bycontinuity, VTI. The peak gradient is 36 mmHg, the mean gradient is 22mmHg andthe dimensionless valve index is 0.23.12/27/17 Transfemoral TAVR with a 26 mm Buckley Jennifer S3 valvePost TAVR Echo:- Left ventricular systolic function is mildly decreased. EF = 45 ? 5%(visualest.) Grade I left ventricular diastolic dysfunction.- The right ventricle is normal in size. Right ventricular systolicfunction islow normal.- S/P transcatheter aortic valve replacement. Buckley S3 prosthetic aorticvalve(size #26). There is trivial (trivial - 1+) aortic valve regurgitation.The peakgradient is 20 mmHg, the mean gradient is 11 mmHg and the dimensionlessvalveindex is 0.43Other Hyperlipidemia Check lipidsStatin intolerant? Candidate for Pcsk9 inhibitor, but has no insuranceBlood Clots in Stool BP and H/H stableStop fish oil till 1 week fu visit.Stool softner, observe.Recheck H/H at 1 week return visit.Cad (Coronary Artery Disease) - History of CABG 1995 G[facility]ED[facility] ([facility]), redo CABG (2001 [facility])- Status post successful PCI to the ostial, proximal, and mid-distal RCAwith a 4.0/12 mm Synergy EES, and 4.0/38 mm Synergy EES, and a 3.5/38 mmSynergy EES on 11/22/17.-continue aspirin, plavixCare Coordination Discharge Management: I personally spent greater than 30minutes involved in the discharge management of this patient. Allmedications and potential SE were discussed with the patientCase to be discussed with AUSTIN Velarde-CPager [phone] (please see below for after hours communication)12/29/201712:4 7 PMFor communication after 5 pm on weekdays and after 12 pm on weekends,please page the following:- Clinical Cardiology patients on all floors: page [phone]- Other Cardiology patients on J5 and J6: page [phone]- Other Cardiology patients on J7 and J8: page [phone] Normal [facility] [place] Basic Metabolic Panlon 12-28 Anion gap 3 molar conc 15 mmol/L Normal -18 [facility] [place] Comment on above: Performed By: #### C BCDIF, PT, CMP, NTBNP ####[facility] [address], [place] [phone] Calcium mass conc 8.4 mg/dL Low 8.5-10.2 [facility] Comment on above: Performed By: #### C BCDIF, PT, CMP, NTBNP ####[facility] [address] [place], [place] [phone] Chloride molar conc 100 mmol/L Normal 97-105 [facility] Comment on above: Performed By: #### C BCDIF, PT, CMP, NTBNP ####[facility]CSamantha [place] [phone] CO2 molar conc 20 mmol/L Low 22-30 [facility] [place] Comment on above: Performed By: #### C BCDIF, PT, CMP, NTBNP ####[facility] AvJess[address] [place] [phone] Creatinine mass conc 1.01 mg/dL Normal 0.73-1.22 [facility] Comment on above: Performed By: #### C BCDIF, PT, CMP, NTBNP ####[facility] AvJess[address] [place] [phone] eGFR- Amer. >60 Normal [facility] Comment on above: Performed By: #### C BCDIF, PT, CMP, NTBNP ####[facility] [place] [phone] GFR/1.73 sq M predicted among non-blacks MDRD vol rate/area (S/P/Bld) mL/min/{1.73_m2} Normal [facility] [place] Comment on above: Result Comment: eGFR (Estimated GFR) Units of measure: mL/min/1.73 meters squaredeGFR is derived from the reexpressed MDRD Study equation using the following parameters: serum creatinine, age, gender and race. The creatinine assay has been calibrated to be traceable to IDMS.An eGFR <60 mL/min/1.73m2 for >3 months is consistent with chronic kidney disease. Refer to KDOQI guidelines for clinical interpretation.In patients with unstable renal function, e.g. those with acute kidney injury, the eGFR may not accurately reflect actual GFR. Performed By: #### C BCDIF, PT, CMP, NTBNP ####[facility], [place] [phone] Glucose mass conc 89 mg/dL Normal 74-99 [facility] Comment on above: Result Comment: The [place] Diabetes Association (ADA) provides guidance for cutoff values for fasting glucose and random glucose. The ADA defines fasting as no caloric intake for at least 8 hours. Fasting plasma glucose results between 100 to 125 mg/dL indicate increased risk for diabetes (prediabetes).Fasting plasma glucose results greater than or equal to 126 mg/dL meet the criteria for diagnosis of diabetes. In the absence of unequivocal hyperglycemia, results should be confirmed by repeat testing. In a patient with classic symptoms of hyperglycemia or hyperglycemic crisis, random plasma glucose results greater than or equal to 200 mg/dL meet the criteria for diagnosis of diabetes.Reference: Standards of Medical Care in Diabetes 2016, [place] Diabetes Association. Diabetes Care. 2016.39(Suppl 1). Performed By: #### C BCDIF, PT, CMP, NTBNP ####[facility] [place], [place] [phone] Potassium molar conc 4.1 mmol/L Normal 3.7-5.1 [facility] Comment on above: Performed By: #### C BCDIF, PT, CMP, NTBNP ####[facility] [place], [place] [phone] Sodium molar conc 135 mmol/L Low 136-144 [facility] Comment on above: Performed By: #### C BCDIF, PT, CMP, NTBNP ####[facility] [place], [place] [phone] Urea nitrogen mass conc 24 mg/dL Normal 9-24 [facility] [place] Comment on above: Performed By: #### C BCDIF, PT, CMP, NTBNP ####[facility] [address] [place], [place] [phone] CASE MGT INIT EVENSjean 2017 CASE MGT INIT EVENS HNO ID: [id number] thor: Danielle (Rn) SHARON Fitzgeraldervice: Care ManagementAuthor Type: Registered NurseType: Care Mgt Initial AssessmentFiled: 12/28/2017 9:48 AMNote Text:CARE MANAGEMENT: ASSESSMENT AND DISCHARGE PLANSERVICE DATE: 12/28/2017SERVICE TIME: 9:44 [facility]ED [facility]IAN:Gil Gonzalez, [facility] COUNTYhone: [phone] STATUS: InpatientMEDICAL:Patient/Re presentative Stated Goals:Return homeHealth Insurance: [facility] Issues Impacting Discharge Plan: NoneLast Admission Date: noneIs this Within the Past 30 days? N/AAdvance Directive:Health Literacy:1. How often do you need to have someone help you when you readinstructions, pamphlets, or other written material from your doctor orpharmacy? Never - 12. How confident are you filling out medical forms by yourself? Extremely- 1If Patient scores > 3 on either question, the following interventions wereput into place:Patient did not score > 3FUNCTIONAL AND COGNITIVE/BEHAVIORALPRIOR TO ADMISSION:Baseline Mental Status: Alert AND Oriented, Person, Place , Time andSituationFunctional Status: IndependentDoes Patient Currently Receive Any Community Services or Home Care? NoneEquipment Prior to Admission: caneHas the Patient Been in a Long Term Facility in the Past 30 days? 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 [employer] storePrimary Contact: Extended Emergency Contact InformationPrimary Emergency Contact: Rachel Vargas Qflxhoim: SonSupportive: YesOther Important Patient Contacts: NoneCaregiver Assessment:Caregiver is ready, willing and able to meet the patient's needs asrecommended by the inter-professional team? No Caregiver NeededPatient's transition needs and plan for meeting these needs: return homeand resume self-careDoes the patient have an acute stroke diagnosis, or has the patient had astroke during this admission? NoMedication Adherence:I am convinced of the importance of my prescription medication: Agreecompletely - 0I worry that my prescription medication will do more harm than good to meDisagree completely - 0I feel financially burdened by my diu-od-lrvbte expenses for myprescription medication: Disagree completely - 0Patient is categorized as low risk < 2Are you interested in bedside delivery of your medications? NoFood Concerns:In the Last Month, Have You had Trouble Getting Food? No trouble gettingfoodDuring the Last Month, Have You Worried Whether Your Food Would Run OutBefore You Had Enough Money to Buy More? NoIs the Patient Psychosocially Complex? NoASSESSMENT AND PLAN:Medical Needs: NonePsychosocial Needs: NoneFREEDOM OF CHOICE EXPLAINED:N/APOTENTIAL TRANSITION PLANSHomePatient states that he is independent with his ADL's and does not requireadditional assistance. He is s/p TAVR on 12/27. He has transportation homewhen he is discharged and he is not on home oxygen. No discharge needs atthis time. Will continue to monitor clinical status and recommendationsby the medical team and f/u appropriately.SIGNATURE: Danielle Fitzgerald RN PATIENT NAME: Joseluis VargasDATE: December 28, 2017 : 9:44 AM PAGER/CONTACT #: [phone] Normal [facility] [place] CBCon 12-28-2017 Absolute nRBC <0.01 Normal <0.01 [facility] [place] Comment on above: Performed By: #### C BCDIF, PT, CMP, NTBNP ####[address] [place], [place] [phone] Erythrocyte distribution width Auto Ratio (RBC) 13.6 % Normal 11.5-15.0 [facility] [place] Comment on above: Performed By: #### C BCDIF, PT, CMP, NTBNP ####[place] [address], [place] [phone] Hematocrit Auto Volume Fraction (Bld) 38.4 % Low 39.0-51.0 [facility] [place] Comment on above: Performed By: #### C BCDIF, PT, CMP, NTBNP ####[facility] AveCLeed[address], [place] [phone] Hemoglobin mass conc (Bld) 13.0 g/dL Normal 13.0-17.0 [facility] [place] Comment on above: Performed By: #### C BCDIF, PT, CMP, NTBNP ####[place] [address] AveCL[address]ey, [place] [phone] MCH Auto Entitic mass (RBC) 29.6 pG Normal 26.0-34.0 [facility] [place] Comment on above: Performed By: #### C BCDIF, PT, CMP, NTBNP ####[address], [place] [phone] MCHC Auto mass conc (RBC) 33.9 g/dL Normal 30.5-36.0 [facility] [place] Comment on above: Performed By: #### C BCDIF, PT, CMP, NTBNP ####[address] [phone] MCV Auto Entitic volume (RBC) 87.5 fL Normal 80.0-100.0 [facility] [place] Comment on above: Performed By: #### C BCDIF, PT, CMP, NTBNP ####[address] [phone] Platelet mean volume Auto Entitic volume (Bld) 10.5 fL Normal 9.0-12.7 [facility] [place] Comment on above: Performed By: #### C BCDIF, PT, CMP, NTBNP ####[address] [phone] Platelets Auto #/vol (Bld) 135 10*3/uL Low 150-400 [facility] [place] Comment on above: Result Comment: Resu lt checked and verifiedNo clot detected. Performed By: #### C BCDIF, PT, CMP, NTBNP ####[address] [phone] RBC Auto #/vol (Bld) 4.39 10*6/uL Normal 4.20-6.00 [facility] Comment on above: Performed By: #### C BCDIF, PT, CMP, NTBNP ####[address] AveCL[address]ey, [place] [phone] WBC Auto #/vol (Bld) 7.70 10*3/uL Normal 3.70-11.00 Cl [facility] Comment on above: Performed By: #### C BCDIF, PT, CMP, NTBNP ####[facility] [address] [place], [place] [phone] CNDSon 12-28-2017 CNDS HNO ID: [id number] thor: Tiffanie Velazquezervice: Cardiovascular MedicineAuthor Type: PhysicianType: Discharge SummariesFiled: 01/01/2018 8:28 AMNote Text:Department of Cardiovascular MedicineDischarge Summary (Template ID [id number]) Pat ient Name: Joseluis VargasPatient Date: 12/27/2017Discharge Date: 12/29/2017Attending Physician: Elio Ashton WhitePrimary Service: Hvi Card InterventionAdmission Diagnosis: Aortic stenosisDischarge Diagnosis: s/p TAVRSecondary Diagnoses:Patient Active Hospital Problem List: Aortic stenosis () CAD (coronary artery disease) () Other hyperlipidemia (12/29/2017) Blood clots in stool (12/29/2017)Reason for Hospitalization:Mr. Vargas is a 77 year old male with a history of hypertension,hyperlipidemia , coronary artery disease [facility]) and severe aortic stenosis,who presents today for TAVR with Dr. Cancino 12/27/17.?Hospital Course:* How was the Reason for Hospitalization addressed; specific medicationchanges; pertinent issues; reasons for extended stay:Patient underwent successful Transfemoral TAVR with a 26 mm Buckley SapienS3 valvePost TAVR the patient remained in the CICU/PACU for the next 24-48 hoursfor management, remained stable was transferred to cardiology stepdownunit.Echo post TAVR stable.EKG remained stable with no changes post TAVR.The procedure sites remained stable with no signs of bruit of hematoma.12/29/17 pt had small blood clot in stool.BP and H/H stableStop fish oil till 1 week fu visit.Stool softner, observe.Recheck H/H at 1 week return visit.Address treatment of lipids (cholesterol) on return visit. Will start onezetemibe if truly statin intolerant and refer to prevention clinic ifsuboptimal controlHome off metoprolol (per Dr Cancino)Will need to follow BP at home and on follow up.The patient remained HD stable and was discharged in stable condition.Consults: NoneMajor Procedure or Operation: NoneOther Procedures, Testing AND Radiology:Post TAVR Echo:- Left ventricular systolic function is mildly decreased. EF = 45 ? 5%(visualest.) Grade I left ventricular diastolic dysfunction.- The right ventricle is normal in size. Right ventricular systolicfunction islow normal.- S/P transcatheter aortic valve replacement. Buckley S3 prosthetic aorticvalve(size #26). There is trivial (trivial - 1+) aortic valve regurgitation.The peakgradient is 20 mmHg, the mean gradient is 11 mmHg and the dimensionlessvalveindex is 0.43.Patient Condition at Discharge: ImprovedDisposition: Home/Self CareInformation Provided to the Patient:Patient given copy of After Visit Summary which included activityinstructions, diet instructions, wound care instructions, medicationinstructions and follow up appointmentDischarge Medications:Current Discharge Medication ListSTART taking these medicationscephALEXin (KEFLEX) 500 mgTake 500 mg by mouth every 8 hours.Qty: 9 capsule Refills: 0CONTINUE these medications which have NOT CHANGEDaspirin, enteric coated (ASPIRIN, ENTERIC COATED) 81 mgTake 81 mg by mouth once daily.clopidogrel (PLAVIX) 75 mgTake 75 mg by mouth once daily.STOP taking these medicationsisosorbide mononitrate ER (IMDUR) 30 mgComments:Reason for Stopping:metoprolol succinate ER (TOPROL XL) 25 mgComments:Reason for Stopping:Vjtod-9-GTI-EPA-Fi sh Oil 1,200 (144-216) mg capComments:Reason for Stopping:Outpatient Management:* Are there important medication changes and/or outstanding issues thatneed to be addressed: None* What is the plan for follow up:Future Appointments:Future AppointmentsDate Time Provider Department Center01/12/2018 12:10 PM [id number] MAIN LBJ1-4 CARD J BLD01/12/2018 12:30 PM [id number] MAIN [id number] CARD J BLD01/12/2018 1:00 PM 2579-MARY BECERRIL ([place]) CATHMN CARD J BLDElectronically SIGNED by Licensed Independent Practitioner: Ken Hinds PA-C Normal [facility] Differential ([facility] LAB USE ON LY)on 12-28-2017 Abs Baso <0.03 Normal <0.11 [facility] [place] Comment on above: Performed By: #### C BCDIF, PT, CMP, NTBNP ####[place] [address] [address] [place] [phone] Abs Quay 0.78 k/uL Normal <0.87 [facility] [place] Comment on above: Performed By: #### C BCDIF, PT, CMP, NTBNP ####[facility]CS[address] [phone] Abs Neut 5.53 k/uL Normal 1.45-7.50 [facility] [place] Comment on above: Performed By: #### C BCDIF, PT, CMP, NTBNP ####[facility]CS[address] [phone] Basophils/100 WBC Auto (Bld) 0.3 % Normal [facility] [place] Comment on above: Performed By: #### C BCDIF, PT, CMP, NTBNP ####[facility] [phone] Eosinophils Auto #/vol (Bld) 0.08 10*3/uL Normal <0.46 [facility] [place] Comment on above: Performed By: #### C BCDIF, PT, CMP, NTBNP ####[place] [id number]CSam[address] [place] [phone] Eosinophils/100 WBC Auto (Bld) 1.0 % Normal [facility] [place] Comment on above: Performed By: #### C BCDIF, PT, CMP, NTBNP ####[facility] [phone] Lymphocytes Auto #/vol (Bld) 1.45 10*3/uL Normal 1.00-4.00 [facility] [place] Comment on above: Performed By: #### C BCDIF, PT, CMP, NTBNP ####[place] [address] [address] [place] [phone] Lymphocytes/100 WBC Auto (Bld) 18.4 % Normal [facility] [place] Comment on above: Performed By: #### C BCDIF, PT, CMP, NTBNP ####[place] [address] [address] [place] [phone] Monocytes/100 WBC Auto (Bld) 9.9 % Normal [facility] [place] Comment on above: Performed By: #### C BCDIF, PT, CMP, NTBNP ####[place] [address] [address] [place] [phone] Neutrophils/100 WBC Auto (Bld) 70.4 % Normal [facility] [place] Comment on above: Performed By: #### C BCDIF, PT, CMP, NTBNP ####[place] [address] [address]Jess[address] [place]ille [phone] NURSING PROGon 12-28-2017 Protein mass conc HNO ID: [id number] thor: Eli (Rn) Alayna RNService: (none)Author Type: Registered NurseType: Nursing Progress NoteFiled: 12/28/2017 9:38 AMNote Text: Nursing Progress NotePatient Name: Joseluis MittalJanethN: [id number] Location: J072 008/[id number] Tr ansfer Note:Patient transferred into room/unit J72 bed 8 in stable condition.Actions taken: Oriented pt to room and unit protocols. Dual skin checkperformed with Celena Minor RN. Falls video unavailable at this time. Nofuther actions taken at this time. Will continue to monitor and checkwith patient.This note was completed by: Eli Catalan RN Normal [facility] PROGRESSon 12-28-2017 Protein mass conc HNO ID: [id number] thor: Ken Nguyen) SchraiderService: Cardiovascular MedicineAuthor Type: Physician AssistantType: Progress NotesFiled: 12/29/2017 12:45 PMNote Text: HEART and VASCULAR INSTITUTECARDIOVASCULAR MEDICINE PROGRESS NOTE(Template ID [id number])Joseluis Courtney [id number] SERVICE: Hvi Card InterventionHOSPITAL DAY: # 2INTERVAL HISTORYNo CP, SOBPHYSICAL EXAMBP 126/62 Pulse 68 Temp 36.8 ?C (98.2 ?F) (Oral) Resp 22 Ht167.6 cm (5' 6) Wt 83.2 kg (183 lb 6.4 oz) SpO2 94% BMI 29.60kg/m?Intake/Output Summary (Last 24 hours) at 12/29/17 1245Last data filed at 12/29/17 0900 Gross per 24 hourIntake 1410 mlOutput 1725 mlNet -315 mlGeneral Appearance: Well developedHEENT: Neck: JVD - noLungs: ClearHeart: Regular rate AND rhythm, 1/6 TIFF LSBAbdomen: Soft, Non-tender and Organomegaly - noSkin: Warm and DryExtremities: No edema. Pulses palpable throughout. R/L groin: no hematomaor bruitMusculoskeletal: No deformitiesNeurologic/Psych iatric: Oriented to time, place AND personECGDiagnosis:NORMAL SINUS RHYTHMPOSSIBLE INFERIOR MYOCARDIAL INFARCTION , AGE UNDETERMINEDPROLONGED QT INTERVAL OR TU FUSION, CONSIDER HYPOKALEMIAABNORMAL ECG?Ventricular Rate : 70 ?BPMAtrial Rate : 70 ?BPMP-R Interval : 208 ?msQRS Duration : 90 ?msQ-T Interval : 512 ?msQTC Calculation(Bezet) : 552 ?msMEDICATIONSCurrent hospital medications:aspirin, enteric coated 81 mg tab(s) (ASPIRIN, ENTERIC COATED) 81 mg ORALDAILYclopidogrel 75 mg tab(s) (PLAVIX) 75 mg ORAL DAILYcephALEXin 500 mg cap(s) (KEFLEX) 500 mg ORAL q 8 Hheparin 5,000 Units injection 5,000 Units SUBCUTANEOUS q 12 HDATARecent Labs 12/28/1800WBC 7.49 7.70HB 13.6 13.0HCT 41.3 38.4*PLT 120* 135*Recent Labs 12/28/1800NA 138 135*K 4.3 4.1CO2 22 20*BUN 15 24CREAT 0.97 1.01GLUC 83 89ASSESSMENT AND PLANMrJac Vargas is a 77 year old male with a history of hypertension,hyperlipidemia , coronary artery disease s/p CABG 1995 [facility]), redo CABG (2001 [facility]) and severe aortic stenosis,for pre-op TAVR with Dr. Cancino 12/27/17.ProblemAortic Stenosis - Echo 10/29:EF = 48 ? 5%There is low flow, low gradient, severe aortic valve stenosis caused bycalcified valve and restricted opening. AV area is 0.87 cm? (0.44 cm?/m?)bycontinuity, VTI. The peak gradient is 36 mmHg, the mean gradient is 22mmHg andthe dimensionless valve index is 0.23.12/27/17 Transfemoral TAVR with a 26 mm Buckley Jennifer S3 valvePost TAVR Echo:- Left ventricular systolic function is mildly decreased. EF = 45 ? 5%(visualest.) Grade I left ventricular diastolic dysfunction.- The right ventricle is normal in size. Right ventricular systolicfunction islow normal.- S/P transcatheter aortic valve replacement. Buckley S3 prosthetic aorticvalve(size #26). There is trivial (trivial - 1+) aortic valve regurgitation.The peakgradient is 20 mmHg, the mean gradient is 11 mmHg and the dimensionlessvalveindex is 0.43Other Hyperlipidemia Check lipidsStatin intolerant? Candidate for Pcsk9 inhibitor, but has no insuranceCad (Coronary Artery Disease) - History of CABG 1995 GRAJEDA-LAD ([facility]), redo CABG (2001 [facility])- Status post successful PCI to the ostial, proximal, and mid-distal RCAwith a 4.0/12 mm Synergy EES, and 4.0/38 mm Synergy EES, and a 3.5/38 mmSynergy EES on 11/22/17.-continue aspirin, plavixLate entry.Pt seen and examined at 1300 12/28/17Case to be discussed with AUSTIN Velarde-CPager [phone] (please see below for after hours communication)12/28/20171300 For communication after 5 pm on weekdays and after 12 pm on weekends,please page the following:- Clinical Cardiology patients on all floors: page [phone]- Other Cardiology patients on J5 and J6: page [phone]- Other Cardiology patients on J7 and J8: page [phone] Normal [facility] [place] Protein mass conc HNO ID: [id number] thor: RENAE Cobbervice: Cardiovascular MedicineAuthor Type: PhysicianType: Progress NotesFiled: 12/28/2017 7:10 AMNote Text: INTERVENTIONAL CARDIOLOGYPost Intervention Progress NotePROCEDURE:Transfemoral TAVR with a 26 mm Buckley Jennifer S3 valveSUBJECTIVE: No events overnight on telemetry. No CP or SOB. No issueswith access sites.Current Inpatient MedicationsCurrent hospital medications:aspirin, enteric coated 81 mg tab(s) (ASPIRIN, ENTERIC COATED) 81 mg ORALDAILYclopidogrel 75 mg tab(s) (PLAVIX) 75 mg ORAL DAILYisosorbide mononitrate ER 30 mg tab(s) (IMDUR) 30 mg ORAL DAILYcephALEXin 500 mg cap(s) (KEFLEX) 500 mg ORAL q 8 Hheparin 5,000 Units injection 5,000 Units SUBCUTANEOUS q 12 HPHYSICAL EXAMBP 144/67 Pulse 77 Temp 36.8 ?C (98.2 ?F) (Temporal Artery) Resp24 Wt 81.4 kg (179 lb 7.3 oz) SpO2 96% BMI 28.96 kg/m?GEN: Awake, alert and orientedx3, pleasant and cooperativeHEENT: MMM, OP clear, sclera anictericNECK: no jugular venous distentionCV: Regular rate and rhythm, normal S1 and S2PULM: Normal effort, clear to the bases bilaterallyABD: Soft, non-tender, non-distended,EXT: Warm and well perfused without peripheral edema, no hematoma over RRAor R CFALABS:Recent Labs 145 023HCT 38.4* 42.4PLT 135* 173CREAT 1.01 1.01EKG: Sinus HI 190 QRS 90Assessment and Plan:77 year old male with severe aortic stenosis status post transfemoral TAVRwith a 26 mm Buckley Jennifer S3 valve1. Aspirin 81 mg daily2. Clopidogrel 75 mg daily3. Cephalexinprophylaxis x 5 days4. Echo today5. Transfer to [facility]6. Metoprolol on hold while we watch his conduction on telemetryPlease don't hesitate to contact me with any questions or concerns.Ponce Hollis, MDPager: [phone] Cardiology Normal [facility] ANES Rylee 12-27-2017 ANES POST HNO ID: [id number] thor: Elaina Bauer: AnesthesiologyAuthor Type: AnesthesiologistType: Anesthesia PostOpFiled: 12/27/2017 5:36 PMNote Text:CT Anesthesia Postoperative Note: Patient is s/p TAVR under monitoredanesthesia care. He tolerated the procedure uneventfully and wastransferred to the recovery area sleepy but arousable and with noimmediate complaint of pain/nausea/vomiting. BP 117/57, HR 47, RR 14, XiS9849%, T 36.1, hydration status adequate. There are no adverse anestheticevents to report at present time. Normal [facility] PT EDon 12-27-2017 PT ED HNO ID: [id number] thor: Heidi (Rn) SHARON Murdockervice: (none)Author Type: Registered NurseType: Patient EducationFiled: 12/27/2017 6:28 AMNote Text:PRE OP LEARNING ASSESSMENTPROCEDURE/SURGERY : TAVRREADINESS TO LEARNCOGNITIVE ABILITY: Alert and orientedMOTIVATION TO LEARN: InterestedFAMILY SUPPORT: High - Very involved in pt carePATIENT LEARNS BEST BY: Multiple MethodsFACTORS AFFECTING LEARNING: NonePHYSICAL LIMITATIONS AFFECTING LEARNING: Sensory Deficit Sight: CorrectivelensesElectronica lly Signed By: Heidi Murdock RN In Department: [id number] Normal [facility] CBC and Differentialon 12-26 Abs Baso <0.03 Normal <0.11 [facility] [place] Comment on above: Performed By: #### C BCDIF, PT, CMP, NTBNP ####[place] [address] [address]CS[address] [place] [phone] Abs Quay 0.49 k/uL Normal <0.87 [facility] [place] Comment on above: Performed By: #### C BCDIF, PT, CMP, NTBNP ####[place] [address] [address] [place] [phone] Abs Neut 3.04 k/uL Normal 1.45-7.50 [facility] [place] Comment on above: Performed By: #### C BCDIF, PT, CMP, NTBNP ####[place] [address] [place] [phone] Absolute nRBC <0.01 Normal <0.01 [facility] [place] Comment on above: Performed By: #### C BCDIF, PT, CMP, NTBNP ####[place] [address] [place] [phone] Basophils/100 WBC Auto (Bld) 0.3 % Normal [facility] [place] Comment on above: Performed By: #### C BCDIF, PT, CMP, NTBNP ####[place] [address] [place] [phone] DTYPE Auto Diff Normal [facility] [place] Comment on above: Performed By: #### C BCDIF, PT, CMP, NTBNP ####[address] AveCSamantha [place]ille [phone] Eosinophils Auto #/vol (Bld) 0.13 10*3/uL Normal <0.46 [facility] [place] Comment on above: Performed By: #### C BCDIF, PT, CMP, NTBNP ####[place] [address] AveClevelMatthew Ville [phone] Eosinophils/100 WBC Auto (Bld) 2.1 % Normal [facility] [place] Comment on above: Performed By: #### C BCDIF, PT, CMP, NTBNP ####[place] [address] AveClevelMatthew Ville [phone] Erythrocyte distribution width Auto Ratio (RBC) 14.0 % Normal 11.5-15.0 [facility] [place] Comment on above: Performed By: #### C BCDIF, PT, CMP, NTBNP ####[place] [address] [place] [phone] Hematocrit Auto Volume Fraction (Bld) 42.4 % Normal 39.0-51.0 [facility] Comment on above: Performed By: #### C BCDIF, PT, CMP, NTBNP ####[place] [address] [place] [phone] Hemoglobin mass conc (Bld) 13.7 g/dL Normal 13.0-17.0 [facility] Comment on above: Performed By: #### C BCDIF, PT, CMP, NTBNP ####[place] [address] [place] [phone] Lymphocytes Auto #/vol (Bld) 2.35 10*3/uL Normal 1.00-4.00 [facility] [place] Comment on above: Performed By: #### C BCDIF, PT, CMP, NTBNP ####[place] [address] AveClevelMatthew [address]ille [phone] Lymphocytes/100 WBC Auto (Bld) 38.8 % Normal [facility] [place] Comment on above: Performed By: #### C BCDIF, PT, CMP, NTBNP ####[place] [address] [place] [phone] MCH Auto Entitic mass (RBC) 29.5 pG Normal 26.0-34.0 [facility] [place] Comment on above: Performed By: #### C BCDIF, PT, CMP, NTBNP ####[place] [address] [place] [phone] MCHC Auto mass conc (RBC) 32.3 g/dL Normal 30.5-36.0 [facility] [place] Comment on above: Performed By: #### C BCDIF, PT, CMP, NTBNP ####[place] [address] [place] [phone] MCV Auto Entitic volume (RBC) 91.4 fL Normal 80.0-100.0 [facility] [place] Comment on above: Performed By: #### C BCDIF, PT, CMP, NTBNP ####[place] [address] [place] [phone] Monocytes/100 WBC Auto (Bld) 8.1 % Normal [facility] [place] Comment on above: Performed By: #### C BCDIF, PT, CMP, NTBNP ####[address] AveCDwayne Ville [phone] Neutrophils/100 WBC Auto (Bld) 50.7 % Normal [facility] [place] Comment on above: Performed By: #### C BCDIF, PT, CMP, NTBNP ####[address] AveCSamantha [place] [phone] NRBCs 0.0 /100 WBC Normal 0 [facility] [place] Comment on above: Performed By: #### C BCDIF, PT, CMP, NTBNP ####[place] [address] [place] [phone] Platelet mean volume Auto Entitic volume (Bld) 10.8 fL Normal 9.0-12.7 [facility] [place] Comment on above: Performed By: #### C BCDIF, PT, CMP, NTBNP ####[place] [phone] Platelets Auto #/vol (Bld) 173 10*3/uL Normal 150-400 [facility] [place] Comment on above: Performed By: #### C BCDIF, PT, CMP, NTBNP ####[facility] [place], [place] [phone] RBC Auto #/vol (Bld) 4.64 10*6/uL Normal 4.20-6.00 [facility] Comment on above: Performed By: #### C BCDIF, PT, CMP, NTBNP ####[address] [phone] WBC Auto #/vol (Bld) 6.05 10*3/uL Normal 3.70-11.00 [facility] Comment on above: Performed By: #### C BCDIF, PT, CMP, NTBNP ####[address] [phone] CNOVon 12-26-2017 CNOV Office Visit (CARTMN) -------JOSELUIS VARGAS ([id number]) 1940 MDate Time Provider Department12/26/17 3:30 PM ANESTHESIA CLEARANCE CARTMN During your visit today, we recorded the following information about you:Michaela Mendez DO 12/26/2017 12:38 PM SignedANESTHESIOLOGY INSTITUTEPREOP EVALUATION CARDIOTHORACIC ANESTHESIA CARDIAC SURGERYSERVICE DATE: 12/26/2017SERVICE TIME: 12:15 PMProposed Surgical Procedure: Aortic Valve SurgeryRe-do: YESASA Class: 4Surgeon: Allen Surgery Date: 12/27/2017Last Wt12/26/17 : 83 kg (183 lb) Last Ht12/26/17 : 167.6 cm (5' 6)Estimated body mass index is 29.54 kg/m? as calculated from the following: Height as of an earlier encounter on 12/26/17: 167.6 cm (5' 6). Weight as of an earlier encounter on 12/26/17: 83 kg (183 lb). Estimated bodysurface area is 1.97 meters squared as calculated from the following: Height as of an earlier encounter on 12/26/17: 167.6 cm (5' 6). Weight as of an earlier encounter on 12/26/17: 83 kg (183 lb).HPI:77M w/ history of hypertension, hyperlipidemia, coronary artery disease s/pCABG 1995 GRAJEDA-LAD?([facility]), redo CABG (2001 [facility]) and severe aorticstenosis, who presents today for pre-op TAVR. Pt also had PCI w/ ENE x 3 to [facility] in 11/2017.PAST MEDICAL HISTORYDiagnosis Date- Aortic stenosis- CAD (coronary artery disease)- Hyperlipidemia intol of statins- S/P angioplasty with stent- S/P CABG (coronary artery bypass graft) twice 1995x 1 2002 x3PAST SURGICAL HISTORYProcedure Laterality Date- CABG (1) VEIN GRAFT AND ARTERIAL GRAFT 1995- CABG (3) VEIN GRAFTS AND ARTERIAL GRAFT(S) 2001- HERNIA REPAIR HXFAMILY HISTORYProblem Relation Age of Onset- CHF [OTHER] Mother age 77- Myocardial infarction [OTHER] Father 73 - Coronary stent [OTHER] Brother 66 of leukemiaSocial HistorySubstance Use Topics- Smoking status: Never Smoker- Smokeless tobacco: Never Used- Alcohol use NoALLERGIESNo Known AllergiesREVIEW OF SYSTEMS:Neuro: Denies CVA/SeizuresRespiratory: No history of current cough or dyspnea, or pneumonia in the past 6weeks. No history of respiratory/pulmonary symptoms or problemsCardiovascular: See HPIGI: No history of GI symptoms or problems. No history of esophageal varices,recent ascites, or ETOH greater than 2 drinks per day.Endocrine: No history of diabetes. Has not taken steroids within the past 30days. No history of endocrinological symptoms or problems.Hematology: Chronic anti-coagulation / platelet meds (Aspirin, Plavix)CKD AND ANEMIA ASSESSMENT:Patient has both eGFR < 60 mL/min and a Hemoglobin < 11 g/dl: No if the patientis going on CPB.ANESTHETIC HISTORY:History of general anesthesia without complications.AIRWAY ASSESSMENT:Airway History: No abnormal airway historyAirway Exam: General: Normal appearance Mallampati Score: CLASS II Temporo-Mandibular Displacement Test: edentulous Interincisor Distance: 6 cmThyromental Distance: 7 cmNeck Circumference: 43 cmOverbite: No Cervical Mobility: NormalFacial Hair: Yes, Full Mcgrath-Yes Head/Neck Pathology: NoANTICIPATED DIFFICULT AIRWAY: NOPre-Existing Diagnosis of Obstructive Sleep Apnea: No, STOP BANG SCORE:Criteria =Criteria:SnoringAge over 50 (77 year old)Neck circumference > 15.75 inchesMale genderScore = 4, Score = 4PHYSICAL EXAM:VITALS: There were no vitals taken for this visit.CARDIAC: Regular rate and rhythm. Systolic murmur.LUNGS: Lungs clear to auscultation. Good air entry bilaterally.Lines, Drains, Airway: Patient has no lines, drains or airwayLABS:Lab Results Past 6 MonthsComponent Value DateHB 13.7 11/03/2017HCT 42.8 11/03/2017PLT 176 11/03/2017WBC 6.51 11/03/2017NA 137 11/23/2017K 3.9 11/23/2017CREAT 0.97 11/23/2017CA 8.7 11/23/2017INR 1.0 11/03/2017Lab Results Past 6 MonthsComponent Value DateGLUC 140 (H) 11/23/2017K 3.9 11/23/2017NA 137 11/23/2017CHLOR 101 11/23/2017CO2 24 11/23/2017CREAT 0.97 11/23/2017BUN 20 11/23/2017ANION 12 11/23/2017CA 8.7 11/23/2017TPROT 7.1 11/03/2017ALB 4.1 11/03/2017TBILI 0.8 11/03/2017ALKPHOS 84 11/03/2017AST 20 11/03/2017ALT 16 11/03/2017No results found for: ABO, ABORHD, ABSCREEN, PREVABAnticipated Blood Products Ordered: Ordered 2 units of PRBC.Will the Patient Accept Blood: YesIMAGING AND TESTS:CT SCAN:IMPRESSION:1. ? Thickened tricuspid aortic valve with a relatively fixed noncoronary cusp, and moderate aortic valve cusp calcifications. Overall,moderately reduced aortic valve opening. ?Aortic valve orifice area = 1.2cm2. The aortic annulus measures 3.0 x 2.2 cm; cross-sectional area = 4.8cm2; circumference = 8.0 cm.2. ?The thoracic aorta is normal in course and caliber. ?Moderate,partially calcified atherosclerotic plaque in the aortic arch anddescending thoracic aorta. ?In the distal descending thoracic aorta,there is severe protruding plaque posterolaterally (measuring?7 mm).3. ?The abdominal aorta is torturous with moderate, partially calcifiedatherosclerotic plaque throughout, and is notable for an infrarenalaneurysm (3.4 x 3.2 cm).4. ?The pelvic arteries are tortuous with moderate atheromatous plaqueand calcification involving the common iliac and internal iliac arteriesbilaterally. ?The left common iliac artery is ectatic (1.6 cm). ?Thecommon femoral arteries are normal in course and caliber, with mildatherosclerotic plaque. ?The minimal luminal caliber throughout = 8 mm.5. ?Suspected mild to moderate stenosis at the ostium of the celiacartery, and mild stenosis at the ostium of the SMA, due to non-calcifiedplaque.6. ?Proximity of the cardiovascular structures, including CABG grafts, tothe sternum as described.7. ?Bilateral pulmonary nodules as described. Incidental Finding: ?Follow-up for these incidentally detected lung nodules with chest CT examis recommended in 3 to 6 months.ECG:Diagnosis:SINUS RHYTHM WITH OCCASIONAL PREMATURE VENTRICULAR COMPLEXESNONSPECIFIC T WAVE ABNORMALITYABNORMAL ECGVentricular Rate : 63 ?BPMAtrial Rate : 63 ?BPMP-R Interval : 202 ?msQRS Duration : 96 ?msQ-T Interval : 422 ?msQTC Calculation(Bezet) : 431 ?msECHO:CONCLUSIONS:- Exam indication: Initial evaluation valvular heart disease- The left ventricle is mildly dilated. Left ventricular systolic function ismildly decreased. EF = 48 ? 5% (2D biplane) Left ventricular diastolic functionwas not evaluated due to ectopy.- The right ventricle is normal in size. Right ventricular systolic function ismildly decreased.- The left atrial cavity is mildly dilated.- There is moderate (2+) mitral valve regurgitation due to restricted leafletmotion. Regurgitant orifice area (PISA) is 0.24 cm?.- There is low flow, low gradient, severe aortic valve stenosis caused bycalcified valve and restricted opening. AV area is 0.87 cm? (0.44 cm?/m?) bycontinuity, VTI. The peak gradient is 36 mmHg, the mean gradient is 22 mmHg andthe dimensionless valve index is 0.23.- The patient has not had a prior CC echocardiographic exam for comparison.HEART CATHETERIZATION:PROCEDURAL NARRATIVE:We engaged the RCA with the AL 0.75 guide catheter. After administering heparinto?a goal ACT of >250s, we advanced a Runthrough coronary wire to the distal PDA.We?pre-dilated the lesion with a 3.0/15 mm NC balloon at 16-22 leora for multipleoverlapping inflations. We then performed IVUS to size the vessel and betterunderstand the mechanism of ISR at the mid segment. This demonstrated severedisease at the ostium. We then sfvmvdc-hqk-rlbwgrw with a 4.0/20 mm NC at 16-18atm for several overlapping inflations. We then stented the mid-distal lesionwith?a 3.5/38 mm Synergy EES at 16 leora. We then stented the proximal-mid segment4.0/38 mm Synergy EES at 16 leora overlapping with the prior stent. Finally, westented the ostium and proximal segment with a 4.0/12 mm Synergy EES at 16 leora.We?then post-dilated the entire vessel from the mid-segment back with a 4.0/23 mmNC?at 20-22 leora for several overlapping inflations. Follow-up IVUS rundemonstratedgood distal transition without edge dissection, and good stentexpansion/apposition. Final angiography showed no evidence of dissection orperforation. There was RAYO 3 flow and 0% residual stenosis.?+ ---+--------+---------+ ? + +----- ---+---------+ Right Radial Artery 6F Short Vasc Band + +- -------+---------+ ? + +----- ---+---------+?+ -------+ PROCEDURAL OUTCOME + +1 Vessel Successful PCI?+ + ADVERSE OUTCOME(s)/COMPLICATION(s) + --------+None?+----+ PLAN + ----+1. ASA 81mg daily, indefinitely2. Clopidogrel 75 mg daily for at least one year, ideally longer if tolerated.3. Cardiac medical therapy and aggressive risk factor modification. Cardiacrehabilitation.4. Transferred to stepdown unit in stable conditionDEVICES:NoneMEDICA TIONS:Current Outpatient Prescriptions:isosorbide mononitrate ER (IMDUR) 30 mg 24 hr tablet Take 1 tablet by mouthonce daily.metoprolol succinate ER (TOPROL XL) 50 mg 24 hr tablet Take 25 mg by mouth oncedaily.aspirin, enteric coated (ASPIRIN, ENTERIC COATED) 81 mg EC tablet Take 81 mg bymouth once daily.Hplor-6-NPC-EPA-Fish Oil 1,200 (144-216) mg cap Take by mouth twice daily.clopidogrel (PLAVIX) 75 mg tablet Take 75 mg by mouth once daily.No current facility-administered medications for this visit.Is the patient currently on any anticoagulant medications: Yes: Anticoagulantmedications the patient is currently on: Aspirin: Last dose: 12/26/2017 andClopidogrel: Last dose: 12/26/2017This was adequately stopped before surgery: No, primary service aware.PAIN AND ANXIETY EDUCATION AND MANAGEMENT:Patient has no concerns to address at this time.Additional Comments: NoneI have reviewed the Cardiothoracic Surgical Assessment and agree with itsfindings. During the course of the encounter the patient was prepared foranesthetic care. This conversation included anesthetic options, possible use ofinvasive monitoring, the risks, benefits, alternatives, and personnel that willbe present for the anesthetic encounter. The patient agreed to proceed withthe planned anesthetic.Instructed to take ASA, Plavix, Metoprolol with a small sip of water asscheduled.BETA MARBELLA COMPLIANCE:Is the Patient Scheduled for a CABG: NoSIGNATURE: Michaela Mendez DO PATIENT NAME: Joseluis ReecelerDATE: December 26, 2017 : 12:15 PM PAGER/CONTACT #:Referring Provider: CHANEL VILLA [[id number]]Allergies As of Date: 12/26/2017(No Known Allergies)Date Reviewed: 12/26/2017Reviewed by: Mary Nguyen) Telma - Fully AssessedPrimary Visit Diagnosis:Aortic valve stenosis, etiology of cardiac valve disease unspecified [I35.0]Order(s):PREOP RED BLOOD CELLS [SQPRERC] Order #: [id number] as of 12/26/2017 Sig: ISOSORBIDE MONONITRATE ER 30 * Take 1 tablet by mouth once d* METOPROLOL SUCCINATE ER 50 MG* Take 25 mg by mouth once angeles* ASPIRIN 81 MG TABLET,DELAYED * Take 81 mg by mouth once angeles* OMEGA 3-YRG-VMB-FISH OIL 1,20* Take by mouth twice daily. CLOPIDOGREL 75 MG TABLET Take 75 mg by mouth once angeles*Problem List As Of Date 12/26/2017 Noted Resolved CAD (coronary artery disease) [I25.10] More... Aortic stenosis [I35.0] More... Status:Closed by MICHAELA MENDEZ DO on 12/26/17 Normal [facility] CNOV Office Visit (CATHMN) -------JOSELUIS VARGAS ([id number]) 1940 MDate Time Provider Department12/26/17 11:00 AM MARY BECERRIL (PA) During your visit today, we recorded the following information about you: Pulse Blood pressure Weight Height 56/minute 140/64 83 kg 1.676 mLisa LEXUS Becerril 12/26/2017 4:50 PM [facility] Department of Cardiovascular MedicineSECTION OF INTERVENTIONAL CARDIOLOGYOUTPATIENT VISIT DATE December 26, 2017OUTPATIENT VISIT TYPEESTABLISHEDPRIMARY CARE PHYSICIAN:Gil Gonzalez MD ([facility])[address] [place] [address]Mhehn: [phone]: [phone] COMPLAINT:Patient presents with:Valvular Heart DiseaseHISTORY OF PRESENT ILLNESS:Mr. Vargas is a 77 year old male with a history of hypertension,hyperlipidemia , coronary artery disease s/p CABG 1995 GRAJEDA-LAD ([facility]),redo CABG (2001 [facility]) and severe aortic stenosis,who presents today for pre-op TAVR with Dr. Cancino 12/27/17.He was doing well since his his last CABG in 2001. In the last 6 months he hashad symptoms of SOB and chest pain which prompted a stress test evaluation.Given these symtpoms, a stress test in July 2017 could not necessarily ruleout MA ischemia.?He had a stress test in July 2017 that could not rule out ischemiaprompting a LHC as below?TTE Jul 30 showed EF 45%, mildly enlarged left atrium, moderate MR, moderate tosevere diffuse thickening of aortic valve. Aortic mean 31, peak gradient of 18,AUSTIN 1.5, aortic vti 73.5??Left Heart Catheterization @ [facility]SH 09/12/2017 (load into syngo)?RHC:Thermal CO 2.71, Thermal CI 1.38RA 4, RV 44/2, PA 44/14 (25), PCWP 17PVR 236, SVR 2686AVA 0.67, LILLY 0.34, AV mean gradient 22. 5?LM 95%LAD 100%LCX 99%RCA proximal moderate, mid 85% eccentric, distal 85% eccentric?GRAFTSLIMA - LAD - patentSVG - OM1 - patentSVG-rPDA - occluded?Echo 11/03/17:CONCLUSIONS:- Exam indication: Initial evaluation valvular heart disease- The left ventricle is mildly dilated. Left ventricular systolic function ismildly decreased. EF = 48 ? 5% (2D biplane) Left ventricular diastolic functionwas not evaluated due to ectopy.- The right ventricle is normal in size. Right ventricular systolic function ismildly decreased.- The left atrial cavity is mildly dilated.- There is moderate (2+) mitral valve regurgitation due to restricted leafletmotion. Regurgitant orifice area (PISA) is 0.24 cm?.- There is low flow, low gradient, severe aortic valve stenosis caused bycalcified valve and restricted opening. AV area is 0.87 cm? (0.44 cm?/m?) bycontinuity, VTI. The peak gradient is 36 mmHg, the mean gradient is 22 mmHg andthe dimensionless valve index is 0.23.- The patient has not had a prior CC echocardiographic exam for comparison.?He admits to midsternal burning chest pain with shortness of breath withexertion such as walking briskly or climbing stairs, which resolves with rest.?On 11/22/17, he underwent PCI to the ostial, proximal, and mid-distal RCA with a4.0/12 mm Synergy EES, and 4.0/38 mm Synergy EES, and a 3.5/38 mm Synergy EESSeen by Dr. Cancino 12/21/17, still He continues to experience exertionalshortness of breath and occasional episodes of chest tightness with noimprovement in his overall functional capacity as compared to prior tointervention. He reports no unstable sounding symptoms and continues totolerate his dual antiplatelet therapy well with no major bleeding problems.He denies syncope or severe symptoms of heart failure with no orthopnea, PND oredema.He denies orthopnea, PND, palpitations, syncope, claudication, leg swelling,cough and wheezing.PAST CARDIAC HISTORY:[facility]ST MEDICAL HISTORYDiagnosis Date- Aortic stenosis- CAD (coronary artery disease)- Hyperlipidemia intol of statins- S/P angioplasty with stent- S/P CABG (coronary artery bypass graft) twice 1995x 1 2002 x3PAST SURGICAL HISTORYProcedure Laterality Date- CABG (1) VEIN GRAFT AND ARTERIAL GRAFT 1995- CABG (3) VEIN GRAFTS AND ARTERIAL GRAFT(S) 2001- HERNIA REPAIR HXSOCIAL HISTORYSocial HistorySubstance Use Topics- Smoking status: Never Smoker- Smokeless tobacco: Never Used- Alcohol use NoFAMILY HISTORYProblem Relation Age of Onset- CHF [OTHER] Mother age 77- Myocardial infarction [OTHER] Father 73 - Coronary stent [OTHER] Brother 66 of leukemiaALLERGIES:ALLERGIES No Known AllergiesMEDICATIONS:isosor bide mononitrate ER (IMDUR) 60 mg 24 hr tablet Take 30 mg by mouth oncedaily.metoprolol succinate ER (TOPROL XL) 50 mg 24 hr tablet Take 25 mg by mouth oncedaily.aspirin, enteric coated (ASPIRIN, ENTERIC COATED) 81 mg EC tablet Take 81 mg bymouth once daily.Yssrn-0-IUR-EPA-Fish Oil 1,200 (144-216) mg cap Take by mouth twice daily.clopidogrel (PLAVIX) 75 mg tablet Take 75 mg by mouth once daily.REVIEW OF SYSTEMS:HEENT: Denies recent severe headaches, visual changes, difficulty swallowing.GASTROINTESTINAL : Denies melena, hematochezia, heartburn.GENITOURINARY: Denies hematuria.MUSCULOSKELETAL: Denies claudication or muscle myalgias.NEUROLOGIC: Denies unilateral paralysis, slurred speech.SKIN: Denies skin ulcers or lesions.HEMATOLOGICAL: Denies gingival bleeding, or prolonged epistaxis.ENDOCRINE:Denies heat or cold intolerance, excessive thirst or urination.All Other Remaining ROS negative.PHYSICAL EXAMINATION:BP 140/64 Pulse 56 Ht 5' 6 (1.68m) Wt 183 lb (83.0kg) BMI 29.55kg/(m2).General:well developedSkin:warm and dryNeck:no JVD, no carotid bruits, thyroid not palpable, no tendernessLungs:clear to auscultation and no ralesHeart:regular rhythm, S1, S2 normal, no S3, no S4, grade 2/6 systolic murmuracross the base and along left sternal border, no heaves and no thrillsPV Pulses:pulses intact, no varicositiesAbdomen:soft, non-tender, bowel sounds present, no organomegalyExtremities:nor mal exam, distal pulses intact bilateralEdema Scale:noMusculoskeletal:Nor mal gait and ambulation, Able to undergo exercise testingand/or participate in an exercise program.Neurologic:Oriented to time, place and person, Mood AND Affect: appropriateCARDIOVASCULAR MEDICINE TESTING:Electrocardiogram:D iagnosis:SINUS RHYTHM WITH OCCASIONAL PREMATURE VENTRICULAR COMPLEXESNONSPECIFIC T WAVE ABNORMALITYABNORMAL ECGChest X-ray:RESULT:Lines, tubes, and devices: ?None. ?Status post median sternotomy andprobable CABG. ?Right coronary artery stent/stents noted, new since priorexam. ?Redemonstration of fractured sternal wires (first and third)without displacement.Lungs and pleura: ?No consolidation. No lung mass. No right pleuraleffusion. ?Shallow blunting of left posterior costophrenic angleredemonstrated and likely related to known posterior Bochdalek hernia.Cardiomediastinal silhouette: ?Stable cardiomediastinal silhouette. ?Focal atherosclerotic calcifications of the aorta with mild tortuosity.Other: ?Degenerative changes of the spine.IMPRESSION:No new lung consolidation. ?Interval placement of right sided coronaryartery stent/stents. ?Status post CABG.Laboratory Testing:Component Latest Ref Rng AND Units 12/26/2017WBC 3.70 - 11.00 k/uL 6.05RBC 4.20 - 6.00 m/uL 4.64Hemoglobin 13.0 - 17.0 g/dL 13.7Hematocrit 39.0 - 51.0 % 42.4MCV 80.0 - 100.0 fL 91.4MCH 26.0 - 34.0 pG 29.5MCHC 30.5 - 36.0 g/dL 32.3RDW-CV 11.5 - 15.0 % 14.0Platelet Count 150 - 400 k/uL 173MPV 9.0 - 12.7 fL 10.8Neut% % 50.7Abs Neut (ANC) 1.45 - 7.50 k/uL 3.04Lymph% % 38.8Abs Lymph 1.00 - 4.00 k/uL 2.35Mono% % 8.1Abs Quay <0.87 k/uL 0.49Eosin% % 2.1Abs Eosin <0.46 k/uL 0.13Baso% % 0.3Abs Baso <0.11 k/uL <0.03Nucleated Reds 0 /100 WBC 0.0Absolute nRBC <0.01 k/uL <0.01Diff Type Auto DiffProtein, Total 6.3 - 8.0 g/dL 7.3Albumin 3.9 - 4.9 g/dL 4.0Calcium 8.5 - 10.2 mg/dL 9.4Bilirubin, Total 0.2 - 1.3 mg/dL 0.8Alkaline Phosphatase 36 - 108 U/L 81AST 14 - 40 U/L 21Glucose 74 - 99 mg/dL 91BUN 9 - 24 mg/dL 20Creatinine 0.73 - 1.22 mg/dL 1.01Sodium 136 - 144 mmol/L 139Potassium 3.7 - 5.1 mmol/L 5.7 (H)Chloride 97 - 105 mmol/L 103CO2 22 - 30 mmol/L 25Anion Gap 9 - 18 mmol/L 11ALT 10 - 54 U/L 14eGFR- >60eGFR-All Other Races . >60NT Pro BNP <450 pg/mL 2,509 (H)I have personally reviewed the Electrocardiogram, Chest X-ray and LaboratoryTestingIMPRESSION /PLAN:Mr. Vargas is a 77 year old male with a history of hypertension,hyperlipidemia , coronary artery disease s/p CABG 1995 GRAJEDA-LAD ([facility]),redo CABG (2001 [facility]) and severe aortic stenosis,who presents today for pre-op TAVR with Dr. Cancino 12/27/17.(I35.0) Nonrheumatic aortic valve stenosis (primary encounter diagnosis)- Echo 10/29:EF = 48 ? 5%There is low flow, low gradient, severe aortic valve stenosis caused bycalcified valve and restricted opening. AV area is 0.87 cm? (0.44 cm?/m?) bycontinuity, VTI. The peak gradient is 36 mmHg, the mean gradient is 22 mmHg andthe dimensionless valve index is 0.23.[facility] IIBNP: 2509- Continue aspirin, Plavix, MetoprololTF TAVR 12/27/17, Pre-op instructions provided, instructed to arrive at 6:15 am,Consent obtained by Fellow.(I25.10) Coronary artery disease involving [place] coronary artery of nativeheart without angina pectoris- History of CABG 1995 GRAJEDA-LAD ([facility]), redo CABG (2001 [facility])- Status post successful PCI to the ostial, proximal, and mid-distal RCA with a4.0/12 mm Synergy EES, and 4.0/38 mm Synergy EES, and a 3.5/38 mm Synergy EESon 11/22/17- Stable CAD- Risk factor modification- Continue aspirin, Plavix, Imdur, Metoprolol- Intolerant of statins, currently taking Fish Oil(I10) Essential hypertension- BP stable- Continue Metoprolol(E78.5) Hyperlipidemia, unspecified hyperlipidemia type- Intolerant of statinsI spent > 35 minutes in the visit, with more than 50% of the total vyby-jo-vyaxpjsq of the visit in counseling / coordination of care.AUSTIN Joel-CReferring Provider: CHANEL VILLA [[id number]]Allergies As of Date: 12/26/2017(No Known Allergies)Date Reviewed: 12/26/2017Reviewed by: Mary Becerril (Pa) - Fully AssessedReason for Visit: Valvular Heart Disease [169]Primary Visit Diagnosis:Nonrheumatic aortic valve stenosis [I35.0] Other Visit Diagnoses:Coronary artery disease involving [place] coronary artery of [place] heart without angina pectoris [I25.10] Essential hypertension [I10] Hyperlipidemia, unspecified hyperlipidemia type [E78.5]Prescriptions as of 12/26/2017 Sig: METOPROLOL SUCCINATE ER 50 MG* Take 25 mg by mouth once angeles* ASPIRIN 81 MG TABLET,DELAYED * Take 81 mg by mouth once angeles* OMEGA 9-VMR-JDZ-FISH OIL 1,20* Take by mouth twice daily. CLOPIDOGREL 75 MG TABLET Take 75 mg by mouth once angeles* ISOSORBIDE MONONITRATE ER 30 * Take 1 tablet by mouth once d*Problem List As Of Date 12/26/2017 Noted Resolved CAD (coronary artery disease) [I25.10] More... Aortic stenosis [I35.0] More...Medications Discontinued During This Encounter isosorbide mononitrate ER (IMDUR) 60* 12/26/2017 Class: Historical Med Route: ORAL Sig: Take 30 mg by mouth once daily. Disc: Reason for discontinue is not on file.Disposition: Return for scheduled for TVAR tomorrow 12/27/[address] Cancino.Follow-up and Disposition History RecordedEncounter Number: [id number] Status:Closed by MARY BECERRIL PA-C on 12/26/17 Normal [facility] Comp Metabolic Panelon 12-26 Albumin mass conc 4.0 g/dL Normal 3.9-4.9 [facility] Comment on above: Performed By: #### C BCDIF, PT, CMP, NTBNP ####[place] [phone] ALP enzyme act/vol 81 U/L Normal 36-108 [facility] Comment on above: Performed By: #### C BCDIF, PT, CMP, NTBNP ####[place] [phone] ALT enzyme act/vol 14 U/L Normal 10-54 [facility] Comment on above: Performed By: #### C BCDIF, PT, CMP, NTBNP ####[place] [phone] Anion gap 3 molar conc 11 mmol/L Normal 9-18 [facility] Comment on above: Performed By: #### C BCDIF, PT, CMP, NTBNP ####[place] [phone] AST enzyme act/vol 21 U/L Normal 14-40 [facility] Comment on above: Performed By: #### C BCDIF, PT, CMP, NTBNP ####[address] [phone] Bilirubin mass conc 0.8 mg/dL Normal 0.2-1.3 [facility] Comment on above: Performed By: #### C BCDIF, PT, CMP, NTBNP ####[place] [id number] [place] [phone] Calcium mass conc 9.4 mg/dL Normal 8.5-10.2 [facility] Comment on above: Performed By: #### C BCDIF, PT, CMP, NTBNP ####[place] [address] [address] [place] [phone] Chloride molar conc 103 mmol/L Normal 97-105 [facility] Comment on above: Performed By: #### C BCDIF, PT, CMP, NTBNP ####[place] [address] [address] [place] [phone] CO2 molar conc 25 mmol/L Normal 22-30 [facility] Comment on above: Performed By: #### C BCDIF, PT, CMP, NTBNP ####[place] [address] [address] [place] [phone] Creatinine mass conc 1.01 mg/dL Normal 0.73-1.22 [facility] Comment on above: Performed By: #### C BCDIF, PT, CMP, NTBNP ####[place] [address] [address] [place] [phone] eGFR- Amer. >60 Normal [facility] Comment on above: Performed By: #### C BCDIF, PT, CMP, NTBNP ####[place] [address] [address] [place] [phone] GFR/1.73 sq M predicted among non-blacks MDRD vol rate/area (S/P/Bld) mL/min/{1.73_m2} Normal [facility] Comment on above: Result Comment: eGFR (Estimated GFR) Units of measure: mL/min/1.73 meters squaredeGFR is derived from the reexpressed MDRD Study equation using the following parameters: serum creatinine, age, gender and race. The creatinine assay has been calibrated to be traceable to IDMS.An eGFR <60 mL/min/1.73m2 for >3 months is consistent with chronic kidney disease. Refer to KDOQI guidelines for clinical interpretation.In patients with unstable renal function, e.g. those with acute kidney injury, the eGFR may not accurately reflect actual GFR. Performed By: #### C BCDIF, PT, CMP, NTBNP ####[facility] [place], [place] [phone] Glucose mass conc 91 mg/dL Normal 74-99 [facility] Comment on above: Result Comment: The [place] Diabetes Association (ADA) provides guidance for cutoff values for fasting glucose and random glucose. The ADA defines fasting as no caloric intake for at least 8 hours. Fasting plasma glucose results between 100 to 125 mg/dL indicate increased risk for diabetes (prediabetes).Fasting plasma glucose results greater than or equal to 126 mg/dL meet the criteria for diagnosis of diabetes. In the absence of unequivocal hyperglycemia, results should be confirmed by repeat testing. In a patient with classic symptoms of hyperglycemia or hyperglycemic crisis, random plasma glucose results greater than or equal to 200 mg/dL meet the criteria for diagnosis of diabetes.Reference: Standards of Medical Care in Diabetes 2016, [place] Diabetes Association. Diabetes Care. 2016.39(Suppl 1). Performed By: #### C BCDIF, PT, CMP, NTBNP ####[facility] [place], [place] [phone] Potassium molar conc 5.7 mmol/L High 3.7-5.1 [facility] Comment on above: Performed By: #### C BCDIF, PT, CMP, NTBNP ####[facility], [place] [phone] Protein mass conc 7.3 g/dL Normal 6.3-8.0 [facility] Comment on above: Performed By: #### C BCDIF, PT, CMP, NTBNP ####[facility], [place] [phone] Sodium molar conc 139 mmol/L Normal 136-144 [facility] Comment on above: Performed By: #### C BCDIF, PT, CMP, NTBNP ####[address] [phone] Urea nitrogen mass conc 20 mg/dL Normal 9-24 [facility] Comment on above: Performed By: #### C BCDIF, PT, CMP, NTBNP ####[address] [phone] Confirm Blood Typeon 018 ABO/RH(D) Positive Normal [facility] Comment on above: Performed By: #### C BCDIF, PT, CMP, NTBNP ####[place] [phone] NT Pro BNPon 12-26-2017 Protein mass conc 2509 pg/mL High <450 [facility] Comment on above: Performed By: #### C BCDIF, PT, CMP, NTBNP ####[place] [phone] PROGRESSon 12-26-2017 Protein mass conc HNO ID: [id number] thor: Michaela Alves (Fel): (none)Author Type: FellowType: Progress NotesFiled: 12/26/2017 12:38 PMNote Text:ANESTHESIOLOGY INSTITUTEPREOP EVALUATION CARDIOTHORACIC ANESTHESIA CARDIAC SURGERYSERVICE DATE: 12/26/2017SERVICE TIME: 12:15 PMProposed Surgical Procedure: Aortic Valve SurgeryRe-do: YESASA Class: 4Surgeon: Allen Surgery Date: 12/27/2017Last Wt12/26/17 : 83 kg (183 lb) Last Ht12/26/17 : 167.6 cm (5' 6)Estimated body mass index is 29.54 kg/m? as calculated from the following: Height as of an earlier encounter on 12/26/17: 167.6 cm (5' 6). Weight as of an earlier encounter on 12/26/17: 83 kg (183 lb). Estimatedbody surface area is 1.97 meters squared as calculated from the following: Height as of an earlier encounter on 12/26/17: 167.6 cm (5' 6). Weight as of an earlier encounter on 12/26/17: 83 kg (183 lb).HPI:77M w/ history of hypertension, hyperlipidemia, coronary artery diseases/p CABG 1995 GRAJEDA-LAD?([facility]), redo CABG (2001 [facility]) and severeaortic stenosis, who presents today for pre-op TAVR. Pt also had PCI w/ENE x 3 to his RCA in 11/2017.PAST MEDICAL HISTORYDiagnosis Date- Aortic stenosis- CAD (coronary artery disease)- Hyperlipidemia intol of statins- S/P angioplasty with stent- S/P CABG (coronary artery bypass graft) twice 1995x 1 2001 x3PAST SURGICAL HISTORYProcedure Laterality Date- CABG (1) VEIN GRAFT AND ARTERIAL GRAFT 1995- CABG (3) VEIN GRAFTS AND ARTERIAL GRAFT(S) 2001- HERNIA REPAIR HXFAMILY HISTORYProblem Relation Age of Onset- CHF [OTHER] Mother age 77- Myocardial infarction [OTHER] Father 73 - Coronary stent [OTHER] Brother 66 of leukemiaSocial HistorySubstance Use Topics- Smoking status: Never Smoker- Smokeless tobacco: Never Used- Alcohol use NoALLERGIESNo Known AllergiesREVIEW OF SYSTEMS:Neuro: Denies CVA/SeizuresRespiratory: No history of current cough or dyspnea, or pneumonia in thepast 6 weeks. No history of respiratory/pulmonary symptoms or problemsCardiovascular: See HPIGI: No history of GI symptoms or problems. No history of esophagealvarices, recent ascites, or ETOH greater than 2 drinks per day.Endocrine: No history of diabetes. Has not taken steroids within the past30 days. No history of endocrinological symptoms or problems.Hematology: Chronic anti-coagulation / platelet meds (Aspirin, Plavix)CKD AND ANEMIA ASSESSMENT:Patient has both eGFR < 60 mL/min and a Hemoglobin < 11 g/dl: No if thepatient is going on CPB.ANESTHETIC HISTORY:History of general anesthesia without complications.AIRWAY ASSESSMENT:Airway History: No abnormal airway historyAirway Exam: General: Normal appearance Mallampati Score: CLASS II Temporo-Mandibular Displacement Test: edentulous Interincisor Distance: 6 cmThyromental Distance: 7 cmNeck Circumference: 43 cmOverbite: No Cervical Mobility: NormalFacial Hair: Yes, Full Mcgrath-Yes Head/Neck Pathology: NoANTICIPATED DIFFICULT AIRWAY: NOPre-Existing Diagnosis of Obstructive Sleep Apnea: No, STOP BANG SCORE:Criteria =Criteria:SnoringAge over 50 (77 year old)Neck circumference > 15.75 inchesMale genderScore = 4, Score = 4PHYSICAL EXAM:VITALS: There were no vitals taken for this visit.CARDIAC: Regular rate and rhythm. Systolic murmur.LUNGS: Lungs clear to auscultation. Good air entry bilaterally.Lines, Drains, Airway: Patient has no lines, drains or airwayLABS:Lab Results Past 6 MonthsComponent Value DateHB 13.7 11/03/2017HCT 42.8 11/03/2017PLT 176 11/03/2017WBC 6.51 11/03/2017NA 137 11/23/2017K 3.9 11/23/2017CREAT 0.97 11/23/2017CA 8.7 11/23/2017INR 1.0 11/03/2017Lab Results Past 6 MonthsComponent Value DateGLUC 140 (H) 11/23/2017K 3.9 11/23/2017NA 137 11/23/2017CHLOR 101 11/23/2017CO2 24 11/23/2017CREAT 0.97 11/23/2017BUN 20 11/23/2017ANION 12 11/23/2017CA 8.7 11/23/2017TPROT 7.1 11/03/2017ALB 4.1 11/03/2017TBILI 0.8 11/03/2017ALKPHOS 84 11/03/2017AST 20 11/03/2017ALT 16 11/03/2017No results found for: ABO, ABORHD, ABSCREEN, PREVABAnticipated Blood Products Ordered: Ordered 2 units of PRBC.Will the Patient Accept Blood: YesIMAGING AND TESTS:CT SCAN:IMPRESSION:1. ? Thickened tricuspid aortic valve with a relatively fixed noncoronary cusp, and moderate aortic valve cusp calcifications. Overall,moderately reduced aortic valve opening. ?Aortic valve orifice area = 1.2cm2. The aortic annulus measures 3.0 x 2.2 cm; cross-sectional area = 4.8cm2; circumference = 8.0 cm.2. ?The thoracic aorta is normal in course and caliber. ?Moderate,partially calcified atherosclerotic plaque in the aortic arch anddescending thoracic aorta. ?In the distal descending thoracic aorta,there is severe protruding plaque posterolaterally (measuring?7 mm).3. ?The abdominal aorta is torturous with moderate, partially calcifiedatherosclerotic plaque throughout, and is notable for an infrarenalaneurysm (3.4 x 3.2 cm).4. ?The pelvic arteries are tortuous with moderate atheromatous plaqueand calcification involving the common iliac and internal iliac arteriesbilaterally. ?The left common iliac artery is ectatic (1.6 cm). ?Thecommon femoral arteries are normal in course and caliber, with mildatherosclerotic plaque. ?The minimal luminal caliber throughout = 8 mm.5. ?Suspected mild to moderate stenosis at the ostium of the celiacartery, and mild stenosis at the ostium of the SMA, due to non-calcifiedplaque.6. ?Proximity of the cardiovascular structures, including CABG grafts, tothe sternum as described.7. ?Bilateral pulmonary nodules as described. Incidental Finding: ?Follow-up for these incidentally detected lung nodules with chest CT examis recommended in 3 to 6 months.ECG:Diagnosis:SINUS RHYTHM WITH OCCASIONAL PREMATURE VENTRICULAR COMPLEXESNONSPECIFIC T WAVE ABNORMALITYABNORMAL ECGVentricular Rate : 63 ?BPMAtrial Rate : 63 ?BPMP-R Interval : 202 ?msQRS Duration : 96 ?msQ-T Interval : 422 ?msQTC Calculation(Bezet) : 431 ?msECHO:CONCLUSIONS:- Exam indication: Initial evaluation valvular heart disease- The left ventricle is mildly dilated. Left ventricular systolic functionismildly decreased. EF = 48 ? 5% (2D biplane) Left ventricular diastolicfunctionwas not evaluated due to ectopy.- The right ventricle is normal in size. Right ventricular systolicfunction ismildly decreased.- The left atrial cavity is mildly dilated.- There is moderate (2+) mitral valve regurgitation due to restrictedleafletmotion. Regurgitant orifice area (PISA) is 0.24 cm?.- There is low flow, low gradient, severe aortic valve stenosis caused bycalcified valve and restricted opening. AV area is 0.87 cm? (0.44 cm?/m?)bycontinuity, VTI. The peak gradient is 36 mmHg, the mean gradient is 22mmHg andthe dimensionless valve index is 0.23.- The patient has not had a prior CC echocardiographic exam forcomparison.HEART CATHETERIZATION:PROCEDURAL NARRATIVE:We engaged the RCA with the AL 0.75 guide catheter. After administeringheparin to?a goal ACT of >250s, we advanced a Runthrough coronary wire to the distalPDA. We?pre-dilated the lesion with a 3.0/15 mm NC balloon at 16-22 leora formultipleoverlapping inflations. We then performed IVUS to size the vessel andbetterunderstand the mechanism of ISR at the mid segment. This demonstratedseveredisease at the ostium. We then pmakfih-kaj-rmywbeh with a 4.0/20 mm NC [id number] for several overlapping inflations. We then stented the mid-distallesion with?a 3.5/38 mm Synergy EES at 16 leora. We then stented the proximal-midsegment4.0/38 mm Synergy EES at 16 leora overlapping with the prior stent. Finally,westented the ostium and proximal segment with a 4.0/12 mm Synergy EES at 16atm. We?then post-dilated the entire vessel from the mid-segment back with a4.0/23 mm NC?at 20-22 leora for several overlapping inflations. Follow-up IVUS rundemonstratedgood distal transition without edge dissection, and good stentexpansion/apposition. Final angiography showed no evidence of dissectionorperforation. There was RAYO 3 flow and 0% residual stenosis.?+ ---+--------+---------+ ? + +----- ---+---------+ Right Radial Artery 6F Short Vasc Band + +- -------+---------+ ? + +----- ---+---------+?+ -------+ PROCEDURAL OUTCOME + +1 Vessel Successful PCI?+ + ADVERSE OUTCOME(s)/COMPLICATION(s) + --------+None?+----+ PLAN + ----+1. ASA 81mg daily, indefinitely2. Clopidogrel 75 mg daily for at least one year, ideally longer iftolerated.3. Cardiac medical therapy and aggressive risk factor modification.Cardiacrehabil itation.4. Transferred to stepdown unit in stable conditionDEVICES:NoneMEDICA TIONS:Current Outpatient Prescriptions:isosorbide mononitrate ER (IMDUR) 30 mg 24 hr tablet Take 1 tablet bymouth once daily.metoprolol succinate ER (TOPROL XL) 50 mg 24 hr tablet Take 25 mg by mouthonce daily.aspirin, enteric coated (ASPIRIN, ENTERIC COATED) 81 mg EC tablet Take 81mg by mouth once daily.Eqsne-8-EFN-EPA-Fish Oil 1,200 (144-216) mg cap Take by mouth twice daily.clopidogrel (PLAVIX) 75 mg tablet Take 75 mg by mouth once daily.No current facility-administered medications for this visit.Is the patient currently on any anticoagulant medications: Yes:Anticoagulant medications the patient is currently on: Aspirin: Last dose: 12/26/2017 and Clopidogrel: Last dose: 12/26/2017This was adequately stopped before surgery: No, primary service aware.PAIN AND ANXIETY EDUCATION AND MANAGEMENT:Patient has no concerns to address at this time.Additional Comments: NoneI have reviewed the Cardiothoracic Surgical Assessment and agree with itsfindings. During the course of the encounter the patient was prepared foranesthetic care. This conversation included anesthetic options, possibleuse of invasive monitoring, the risks, benefits, alternatives, andpersonnel that will be present for the anesthetic encounter. The patientagreed to proceed with the planned anesthetic.Instructed to take ASA, Plavix, Metoprolol with a small sip of water asscheduled.BETA MARBELLA COMPLIANCE:Is the Patient Scheduled for a CABG: NoSIGNATURE: Michaela Mendez DO PATIENT NAME: Joseluis VargasDATE: December 26, 2017 : 12:15 PM PAGER/CONTACT #: Normal [facility] [place] Protein mass conc HNO ID: [id number] thor: Odell Anglin: (none)Author Type: (none)Type: Progress NotesFiled: 12/26/2017 9:51 AMNote Text: Radiology Service Progress NotePATIENT NAME: Joseluis VargasMRN: [id number] OF SERVICE: December 26, 2017TIME: 9:51 AMPATIENT IDENTITY VERIFICATION COMPLETED USING TWO (2) METHODS: Patientconfirmed name verbally and Date of .PATIENT GENDER DATA: MalePATIENT RELEVANT IMPLANT DATA REVIEWED: YesRADIOLOGY DEPARTMENT: General X-ray: Exam(s) Completed: Chest X-RayPERIPHERAL IV DATA: Not applicableSIGNED BY: Duane Liang RtMa2017 9:51 AM Normal [facility] [place] Protein mass conc HNO ID: [id number] thor: Mary Nguyen) ReeseoneService: (none)Author Type: Physician AssistantType: Progress NotesFiled: 12/26/2017 4:50 PMNote Text:[facility] InstituteR[facility] Department of Cardiovascular MedicineSECTION OF INTERVENTIONAL CARDIOLOGYOUTPATIENT VISIT DATE December 26, 2017OUTPATIENT VISIT TYPEESTABLISHEDPRIMARY CARE PHYSICIAN:Gil Gonzalez MD ([facility])[address] [place] [id number]: [phone]: [phone] COMPLAINT:Patient presents with:Valvular Heart DiseaseHISTORY OF PRESENT ILLNESS:Mr. Vargas is a 77 year old male with a history of hypertension,hyperlipidemia , coronary artery disease s/p CABG 1995 G[facility]JEDA-LAD ([facility]), [facility]G ([facility]) and severe aortic stenosis,who presents today for pre-op TAVR with Dr. Cancino 12/27/17.He was doing well since his his last CABG in 2001. In the last 6 monthshe has had symptoms of SOB and chest pain which prompted a stress testevaluation.Given these symtpoms, a stress test in July 2017 could not necessarilyrule out MA ischemia.?He had a stress test in July 2017 that could not rule out ischemiaprompting a LHC as below?TTE Jul 30 showed EF 45%, mildly enlarged left atrium, moderate MR,moderate to severe diffuse thickening of aortic valve. Aortic mean 31,peak gradient of 18, AUSTIN 1.5, aortic vti 73.5??Left Heart Catheterization @ OSH 09/12/2017 (load into syngo)?RHC:Thermal CO 2.71, Thermal CI 1.38RA 4, RV 44/2, PA 44/14 (25), PCWP 17PVR 236, SVR 2686AVA 0.67, LILLY 0.34, AV mean gradient 22. 5?LM 95%LAD 100%LCX 99%RCA proximal moderate, mid 85% eccentric, distal 85% eccentric?GRAFTSLIMA - LAD - patentSVG - OM1 - patentSVG-rPDA - occluded?Echo 11/03/17:CONCLUSIONS:- Exam indication: Initial evaluation valvular heart disease- The left ventricle is mildly dilated. Left ventricular systolic functionismildly decreased. EF = 48 ? 5% (2D biplane) Left ventricular diastolicfunctionwas not evaluated due to ectopy.- The right ventricle is normal in size. Right ventricular systolicfunction ismildly decreased.- The left atrial cavity is mildly dilated.- There is moderate (2+) mitral valve regurgitation due to restrictedleafletmotion. Regurgitant orifice area (PISA) is 0.24 cm?.- There is low flow, low gradient, severe aortic valve stenosis caused bycalcified valve and restricted opening. AV area is 0.87 cm? (0.44 cm?/m?)bycontinuity, VTI. The peak gradient is 36 mmHg, the mean gradient is 22mmHg andthe dimensionless valve index is 0.23.- The patient has not had a prior CC echocardiographic exam forcomparison.?He admits to midsternal burning chest pain with shortness of breath withexertion such as walking briskly or climbing stairs, which resolves withrest.?On 11/22/17, he underwent PCI to the ostial, proximal, and mid-distal RCAwith a 4.0/12 mm Synergy EES, and 4.0/38 mm Synergy EES, and a 3.5/[address] Cancino 12/21/17, still He continues to experience exertionalshortness of breath and occasional episodes of chest tightness with noimprovement in his overall functional capacity as compared to prior tointervention. He reports no unstable sounding symptoms and continues totolerate his dual antiplatelet therapy well with no major bleedingproblems. He denies syncope or severe symptoms of heart failure with noorthopnea, PND or edema.He denies orthopnea, PND, palpitations, syncope, claudication, legswelling, cough and wheezing.PAST CARDIAC HISTORY:See HPIPAST MEDICAL HISTORYDiagnosis Date- Aortic stenosis- CAD (coronary artery disease)- Hyperlipidemia intol of statins- S/P angioplasty with stent- S/P CABG (coronary artery bypass graft) twice 1995x 1 2001 x3PAST SURGICAL HISTORYProcedure Laterality Date- CABG (1) VEIN GRAFT AND ARTERIAL GRAFT 1995- CABG (3) VEIN GRAFTS AND ARTERIAL GRAFT(S) 2001- HERNIA REPAIR HXSOCIAL HISTORYSocial HistorySubstance Use Topics- Smoking status: Never Smoker- Smokeless tobacco: Never Used- Alcohol use NoFAMILY HISTORYProblem Relation Age of Onset- CHF [OTHER] Mother age 77- Myocardial infarction [OTHER] Father 73 - Coronary stent [OTHER] Brother 66 of leukemiaALLERGIES:ALLERGIES No Known AllergiesMEDICATIONS:isosor bide mononitrate ER (IMDUR) 60 mg 24 hr tablet Take 30 mg by mouthonce daily.metoprolol succinate ER (TOPROL XL) 50 mg 24 hr tablet Take 25 mg by mouthonce daily.aspirin, enteric coated (ASPIRIN, ENTERIC COATED) 81 mg EC tablet Take 81mg by mouth once daily.Fzkqf-5-VZC-EPA-Fish Oil 1,200 (144-216) mg cap Take by mouth twice daily.clopidogrel (PLAVIX) 75 mg tablet Take 75 mg by mouth once daily.REVIEW OF SYSTEMS:HEENT: Denies recent severe headaches, visual changes, difficultyswallowing.GASTRO INTESTINAL: Denies melena, hematochezia, heartburn.GENITOURINARY: Denies hematuria.MUSCULOSKELETAL: Denies claudication or muscle myalgias.NEUROLOGIC: Denies unilateral paralysis, slurred speech.SKIN: Denies skin ulcers or lesions.HEMATOLOGICAL: Denies gingival bleeding, or prolonged epistaxis.ENDOCRINE:Denies heat or cold intolerance, excessive thirst or urination.All Other Remaining ROS negative.PHYSICAL EXAMINATION:BP 140/64 Pulse 56 Ht 5' 6 (1.68m) Wt 183 lb (83.0kg) BMI 29.55kg/(m2).General:well developedSkin:warm and dryNeck:no JVD, no carotid bruits, thyroid not palpable, no tendernessLungs:clear to auscultation and no ralesHeart:regular rhythm, S1, S2 normal, no S3, no S4, grade 2/6 systolicmurmur across the base and along left sternal border, no heaves and nothrillsPV Pulses:pulses intact, no varicositiesAbdomen:soft, non-tender, bowel sounds present, no organomegalyExtremities:nor mal exam, distal pulses intact bilateralEdema Scale:noMusculoskeletal:Nor mal gait and ambulation, Able to undergo exercisetesting and/or participate in an exercise program.Neurologic:Oriented to time, place and person, Mood AND Affect: appropriateCARDIOVASCULAR MEDICINE TESTING:Electrocardiogram:D iagnosis:SINUS RHYTHM WITH OCCASIONAL PREMATURE VENTRICULAR COMPLEXESNONSPECIFIC T WAVE ABNORMALITYABNORMAL ECGChest X-ray:RESULT:Lines, tubes, and devices: ?None. ?Status post median sternotomy andprobable CABG. ?Right coronary artery stent/stents noted, new since priorexam. ?Redemonstration of fractured sternal wires (first and third)without displacement.Lungs and pleura: ?No consolidation. No lung mass. No right pleuraleffusion. ?Shallow blunting of left posterior costophrenic angleredemonstrated and likely related to known posterior Bochdalek hernia.Cardiomediastinal silhouette: ?Stable cardiomediastinal silhouette. ?Focal atherosclerotic calcifications of the aorta with mild tortuosity.Other: ?Degenerative changes of the spine.IMPRESSION:No new lung consolidation. ?Interval placement of right sided coronaryartery stent/stents. ?Status post CABG.Laboratory Testing:Component Latest Ref Rng AND Units 12/26/2017WBC 3.70 - 11.00 k/uL 6.05RBC 4.20 - 6.00 m/uL 4.64Hemoglobin 13.0 - 17.0 g/dL 13.7Hematocrit 39.0 - 51.0 % 42.4MCV 80.0 - 100.0 fL 91.4MCH 26.0 - 34.0 pG 29.5MCHC 30.5 - 36.0 g/dL 32.3RDW-CV 11.5 - 15.0 % 14.0Platelet Count 150 - 400 k/uL 173MPV 9.0 - 12.7 fL 10.8Neut% % 50.7Abs Neut (ANC) 1.45 - 7.50 k/uL 3.04Lymph% % 38.8Abs Lymph 1.00 - 4.00 k/uL 2.35Mono% % 8.1Abs Quay <0.87 k/uL 0.49Eosin% % 2.1Abs Eosin <0.46 k/uL 0.13Baso% % 0.3Abs Baso <0.11 k/uL <0.03Nucleated Reds 0 /100 WBC 0.0Absolute nRBC <0.01 k/uL <0.01Diff Type Auto DiffProtein, Total 6.3 - 8.0 g/dL 7.3Albumin 3.9 - 4.9 g/dL 4.0Calcium 8.5 - 10.2 mg/dL 9.4Bilirubin, Total 0.2 - 1.3 mg/dL 0.8Alkaline Phosphatase 36 - 108 U/L 81AST 14 - 40 U/L 21Glucose 74 - 99 mg/dL 91BUN 9 - 24 mg/dL 20Creatinine 0.73 - 1.22 mg/dL 1.01Sodium 136 - 144 mmol/L 139Potassium 3.7 - 5.1 mmol/L 5.7 (H)Chloride 97 - 105 mmol/L 103CO2 22 - 30 mmol/L 25Anion Gap 9 - 18 mmol/L 11ALT 10 - 54 U/L 14eGFR- >60eGFR-All Other Races . >60NT Pro BNP <450 pg/mL 2,509 (H)I have personally reviewed the Electrocardiogram, Chest X-ray andLaboratory TestingIMPRESSION/PLAN:Mr. Vargas is a 77 year old male with a history of hypertension,hyperlipidemia , coronary artery disease s/p CABG 1995 GRAJEDA-LAD ([facility]), redo CABG ([facility]) and severe aortic stenosis,who presents today for pre-op TAVR with Dr. Cancino 12/27/17.(I35.0) Nonrheumatic aortic valve stenosis (primary encounter diagnosis)- Echo 10/29:EF = 48 ? 5%There is low flow, low gradient, severe aortic valve stenosis caused bycalcified valve and restricted opening. AV area is 0.87 cm? (0.44 cm?/m?)bycontinuity, VTI. The peak gradient is 36 mmHg, the mean gradient is 22mmHg andthe dimensionless valve index is 0.23.[facility] IIBNP: 2509- Continue aspirin, Plavix, MetoprololTF TAVR 12/27/17, Pre-op instructions provided, instructed to arrive at6:15 am, Consent obtained by Fellow.(I25.10) Coronary artery disease involving [place] coronary artery ofnative heart without angina pectoris- History of CABG 1995 GRAJEDA-LAD ([facility]), redo CABG (2001 [facility])- Status post successful PCI to the ostial, proximal, and mid-distal RCAwith a 4.0/12 mm Synergy EES, and 4.0/38 mm Synergy EES, and a 3.5/38 mmSynergy EES on 11/22/17- Stable CAD- Risk factor modification- Continue aspirin, Plavix, Imdur, Metoprolol- Intolerant of statins, currently taking Fish Oil(I10) Essential hypertension- BP stable- Continue Metoprolol(E78.5) Hyperlipidemia, unspecified hyperlipidemia type- Intolerant of statinsI spent > 35 minutes in the visit, with more than 50% of the nqpbxfxkb-wp-wbmz time of the visit in counseling / coordination of care.Mary Becerril PA-C [facility] Type and SCR (30D)on 018 ABO/RH(D) Positive Normal [facility] [place] Comment on above: Performed By: #### C BCDIF, PT, CMP, NTBNP ####[facility] [place], [place] [phone] Antibody Screen Negative Normal [facility] Comment on above: Performed By: #### C BCDIF, PT, CMP, NTBNP ####[facility] [place], [place] [phone] XR CHEST 2V FRONTAL/LATon XR CHEST 2V FRONTAL/LAT * * *Final Report* * *DATE OF EXAM: Dec 26 2017 9:50AM [id number] - XR CHEST 2V FRONTAL/LAT / REASON: Nonrheumatic aortic valve disorder, unspecified * * * * Physician Interpretation * * * * EXAMINATION: CHEST RADIOGRAPH (2 VIEW FRONTAL and LATERAL)Clinical History: Nonrheumatic aortic valve disorder, unspecifiedMQ: [id number]_5Comparison: 11/03/2017RESULT:Lines, tubes, and devices: None. Status post median sternotomy and probable CABG. Right coronary artery stent/stents noted, new since prior exam. Redemonstration of fractured sternal wires (first and third) without displacement.Lungs and pleura: No consolidation. No lung mass. No right pleural effusion. Shallow blunting of left posterior costophrenic angle redemonstrated and likely related to known posterior Bochdalek hernia.Cardiomediastinal silhouette: Stable cardiomediastinal silhouette. Focal atherosclerotic calcifications of the aorta with mild tortuosity.Other: Degenerative changes of the spine.IMPRESSION:No new lung consolidation. Interval placement of right sided coronary artery stent/stents. Status post CABG.Plumber: JOSE ARMANDO Transcribe Date/Time: Dec 26 2017 2:53PDictated by : GADIEL TERRELL MDThis examination was interpreted and the report reviewed and electronically signed by: GADIEL TERRELL MD on Dec 26 2017 2:57PM [id number] Normal [facility] [place] CNPNon 12-22-2017 CNPN Telephone (CATHMN) -------JOSELUIS VARGAS ([id number]) 1940 MDate Time Provider Department12/22/17 JAMI GUZMAN ([facility]) CATHMN During your visit today, we recorded the following information about you:Jami Guzman ([facility]) 12/22/2017 11:17 AM SignedCalled the [facility] home number to discuss a TAVR procedure date fornext week. No answer. VMX left to call back.Jami Guzman ([facility]) 12/22/2017 1:38 PM SignedReceived returned call from Mrs Joseluis Courtney Sam. Offered TAVR proceduredate 12/27/17 (pre op 12/26/17). She and her wish to proceed withscheduling.Request has been sent to the appointment scheduler to arrange an appointment schedule.Patient is edentulous.Medication and allergy lists were reviewed. No medication instructions wereneeded.Allergies As of Date: 12/22/2017(No Known Allergies)Date Reviewed: 12/21/2017Reviewed by: Octavia Guerrero (Bettina), BETTINA - Fully AssessedReason for Visit: Patient Update [1234] Cmt: TAVR ProcedurePrescriptions as of 12/22/2017 Sig: ISOSORBIDE MONONITRATE ER 60 * Take 30 mg by mouth once angeles* METOPROLOL SUCCINATE ER 50 MG* Take 25 mg by mouth once angeles* ASPIRIN 81 MG TABLET,DELAYED * Take 81 mg by mouth once angeles* OMEGA 3-AIC-LMR-FISH OIL 1,20* Take by mouth twice daily. CLOPIDOGREL 75 MG TABLET Take 75 mg by mouth once angeles*Problem List As Of Date 12/22/2017 Noted Resolved CAD (coronary artery disease) [I25.10] Aortic stenosis [I35.0] Status:Closed by JAMI BROWN RN on 12/22/17 Normal [facility] HOSPon 12-22-2017 HOSP Patient:Joseluis Vargas EMRN: Height:5' 6(1.676 m)Weight:183 lb (83.008 kg)Outpatient Medications as of 12/27/17:isosorbide mononitrate ER (IMDUR) 30 mg 24 hr tabletmetoprolol succinate ER (TOPROL XL) 50 mg 24 hr tabletaspirin, enteric coated (ASPIRIN, ENTERIC COATED) 81 mg EC vxfydqEqukj-9-RDI-EPA-Fish Oil 1,200 (144-216) mg capclopidogrel (PLAVIX) 75 mg tabletAdmission/Clinic Administered Medications as of 12/27/17:Patient has no admission medications.Problem List:CAD (coronary artery disease) [I25.10]Aortic stenosis [I35.0]Allergies:No Known AllergiesDate Verified:12/27/17Lab ValuesLab Value Units Date High LowPOTA* 5.7 mmol/L 12/26/2017 5.1 3.7HEMA* 42.4 % 12/26/2017 51.0 39.0Progress Notes ([facility] MAIN J):Duane Liang Rt 12/26/2017 9:51 AM Signed Radiology Service Progress NotePATIENT NAME: Joseluis VargasMRN: [id number] OF SERVICE: December 26, 2017TIME: 9:51 AMPATIENT IDENTITY VERIFICATION COMPLETED USING TWO (2) METHODS: Patientconfirmed name verbally and Date of .PATIENT GENDER DATA: MalePATIENT RELEVANT IMPLANT DATA REVIEWED: YesRADIOLOGY DEPARTMENT: General X-ray: Exam(s) Completed: Chest X-RayPERIPHERAL IV DATA: Not applicableSIGNED BY: Duane Liang RtMay 2017 9:51 AMProgress Notes ([facility]):Michaela Mendez DO 12/26/2017 12:38 PM SignedANESTHESIOLOGY INSTITUTEPREOP EVALUATION CARDIOTHORACIC ANESTHESIA CARDIAC SURGERYSERVICE DATE: 12/26/2017SERVICE TIME: 12:15 PMProposed Surgical Procedure: Aortic Valve SurgeryRe-do: YESASA Class: 4Surgeon: Allen Surgery Date: 12/27/2017Last Wt12/26/17 : 83 kg (183 lb) Last Ht12/26/17 : 167.6 cm (5' 6)Estimated body mass index is 29.54 kg/m? as calculated from the following: Height as of an earlier encounter on 12/26/17: 167.6 cm (5' 6). Weight as of an earlier encounter on 12/26/17: 83 kg (183 lb). Estimated bodysurface area is 1.97 meters squared as calculated from the following: Height as of an earlier encounter on 12/26/17: 167.6 cm (5' 6). Weight as of an earlier encounter on 12/26/17: 83 kg (183 lb).HPI:77M w/ history of hypertension, hyperlipidemia, coronary artery disease s/p [id number] GRAJEDA-LAD?([facility]), redo CABG (2001 [facility]) and severe aorticstenosis, who presents today for pre-op TAVR. Pt also had PCI w/ ENE x 3 to [facility] in 11/2017.PAST MEDICAL HISTORYDiagnosis Date- Aortic stenosis- CAD (coronary artery disease)- Hyperlipidemia intol of statins- S/P angioplasty with stent- S/P CABG (coronary artery bypass graft) twice 1995x 1 2001 x3PAST SURGICAL HISTORYProcedure Laterality Date- CABG (1) VEIN GRAFT AND ARTERIAL GRAFT 1995- CABG (3) VEIN GRAFTS AND ARTERIAL GRAFT(S) 2001- HERNIA REPAIR HXFAMILY HISTORYProblem Relation Age of Onset- CHF [OTHER] Mother age 77- Myocardial infarction [OTHER] Father 73 - Coronary stent [OTHER] Brother 66 of leukemiaSocial HistorySubstance Use Topics- Smoking status: Never Smoker- Smokeless tobacco: Never Used- Alcohol use NoALLERGIESNo Known AllergiesREVIEW OF SYSTEMS:Neuro: Denies CVA/SeizuresRespiratory: No history of current cough or dyspnea, or pneumonia in the past 6weeks. No history of respiratory/pulmonary symptoms or problemsCardiovascular: See HPIGI: No history of GI symptoms or problems. No history of esophageal varices,recent ascites, or ETOH greater than 2 drinks per day.Endocrine: No history of diabetes. Has not taken steroids within the past 30days. No history of endocrinological symptoms or problems.Hematology: Chronic anti-coagulation / platelet meds (Aspirin, Plavix)CKD AND ANEMIA ASSESSMENT:Patient has both eGFR < 60 mL/min and a Hemoglobin < 11 g/dl: No if the patientis going on CPB.ANESTHETIC HISTORY:History of general anesthesia without complications.AIRWAY ASSESSMENT:Airway History: No abnormal airway historyAirway Exam: General: Normal appearance Mallampati Score: CLASS II Temporo-Mandibular Displacement Test: edentulous Interincisor Distance: 6 cmThyromental Distance: 7 cmNeck Circumference: 43 cmOverbite: No Cervical Mobility: NormalFacial Hair: Yes, Full Mcgrath-Yes Head/Neck Pathology: NoANTICIPATED DIFFICULT AIRWAY: NOPre-Existing Diagnosis of Obstructive Sleep Apnea: No, STOP BANG SCORE: Criteria=Criteria:SnoringAg e over 50 (77 year old)Neck circumference > 15.75 inchesMale genderScore = 4, Score = 4PHYSICAL EXAM:VITALS: There were no vitals taken for this visit.CARDIAC: Regular rate and rhythm. Systolic murmur.LUNGS: Lungs clear to auscultation. Good air entry bilaterally.Lines, Drains, Airway: Patient has no lines, drains or airwayLABS:Lab Results Past 6 MonthsComponent Value DateHB 13.7 11/03/2017HCT 42.8 11/03/2017PLT 176 11/03/2017WBC 6.51 11/03/2017NA 137 11/23/2017K 3.9 11/23/2017CREAT 0.97 11/23/2017CA 8.7 11/23/2017INR 1.0 11/03/2017Lab Results Past 6 MonthsComponent Value DateGLUC 140 (H) 11/23/2017K 3.9 11/23/2017NA 137 11/23/2017CHLOR 101 11/23/2017CO2 24 11/23/2017CREAT 0.97 11/23/2017BUN 20 11/23/2017ANION 12 11/23/2017CA 8.7 11/23/2017TPROT 7.1 11/03/2017ALB 4.1 11/03/2017TBILI 0.8 11/03/2017ALKPHOS 84 11/03/2017AST 20 11/03/2017ALT 16 11/03/2017No results found for: ABO, ABORHD, ABSCREEN, PREVABAnticipated Blood Products Ordered: Ordered 2 units of PRBC.Will the Patient Accept Blood: YesIMAGING AND TESTS:CT SCAN:IMPRESSION:1. ? Thickened tricuspid aortic valve with a relatively fixed noncoronary cusp, and moderate aortic valve cusp calcifications. Overall,moderately reduced aortic valve opening. ?Aortic valve orifice area = 1.2cm2. The aortic annulus measures 3.0 x 2.2 cm; cross-sectional area = 4.8cm2; circumference = 8.0 cm.2. ?The thoracic aorta is normal in course and caliber. ?Moderate,partially calcified atherosclerotic plaque in the aortic arch anddescending thoracic aorta. ?In the distal descending thoracic aorta,there is severe protruding plaque posterolaterally (measuring?7 mm).3. ?The abdominal aorta is torturous with moderate, partially calcifiedatherosclerotic plaque throughout, and is notable for an infrarenalaneurysm (3.4 x 3.2 cm).4. ?The pelvic arteries are tortuous with moderate atheromatous plaqueand calcification involving the common iliac and internal iliac arteriesbilaterally. ?The left common iliac artery is ectatic (1.6 cm). ?Thecommon femoral arteries are normal in course and caliber, with mildatherosclerotic plaque. ?The minimal luminal caliber throughout = 8 mm.5. ?Suspected mild to moderate stenosis at the ostium of the celiacartery, and mild stenosis at the ostium of the SMA, due to non-calcifiedplaque.6. ?Proximity of the cardiovascular structures, including CABG grafts, tothe sternum as described.7. ?Bilateral pulmonary nodules as described. Incidental Finding: ?Follow-up for these incidentally detected lung nodules with chest CT examis recommended in 3 to 6 months.ECG:Diagnosis:SINUS RHYTHM WITH OCCASIONAL PREMATURE VENTRICULAR COMPLEXESNONSPECIFIC T WAVE ABNORMALITYABNORMAL ECGVentricular Rate : 63 ?BPMAtrial Rate : 63 ?BPMP-R Interval : 202 ?msQRS Duration : 96 ?msQ-T Interval : 422 ?msQTC Calculation(Bezet) : 431 ?msECHO:CONCLUSIONS:- Exam indication: Initial evaluation valvular heart disease- The left ventricle is mildly dilated. Left ventricular systolic function ismildly decreased. EF = 48 ? 5% (2D biplane) Left ventricular diastolic functionwas not evaluated due to ectopy.- The right ventricle is normal in size. Right ventricular systolic function ismildly decreased.- The left atrial cavity is mildly dilated.- There is moderate (2+) mitral valve regurgitation due to restricted leafletmotion. Regurgitant orifice area (PISA) is 0.24 cm?.- There is low flow, low gradient, severe aortic valve stenosis caused bycalcified valve and restricted opening. AV area is 0.87 cm? (0.44 cm?/m?) bycontinuity, VTI. The peak gradient is 36 mmHg, the mean gradient is 22 mmHg andthe dimensionless valve index is 0.23.- The patient has not had a prior CC echocardiographic exam for comparison.HEART CATHETERIZATION:PROCEDURAL NARRATIVE:We engaged the RCA with the AL 0.75 guide catheter. After administering heparinto?a goal ACT of >250s, we advanced a Runthrough coronary wire to the distal PDA.We?pre-dilated the lesion with a 3.0/15 mm NC balloon at 16-22 leora for multipleoverlapping inflations. We then performed IVUS to size the vessel and betterunderstand the mechanism of ISR at the mid segment. This demonstrated severedisease at the ostium. We then bvslnhy-mmw-hzhknbb with a 4.0/20 mm NC at 16-18atm for several overlapping inflations. We then stented the mid-distal lesionwith?a 3.5/38 mm Synergy EES at 16 leora. We then stented the proximal-mid segment4.0/38 mm Synergy EES at 16 leora overlapping with the prior stent. Finally, westented the ostium and proximal segment with a 4.0/12 mm Synergy EES at 16 leora.We?then post-dilated the entire vessel from the mid-segment back with a 4.0/23 mmNC?at 20-22 leora for several overlapping inflations. Follow-up IVUS rundemonstratedgood distal transition without edge dissection, and good stentexpansion/apposition. Final angiography showed no evidence of dissection orperforation. There was RAYO 3 flow and 0% residual stenosis.?+ ---+--------+---------+ ? + +----- ---+---------+ Right Radial Artery 6F Short Vasc Band + +- -------+---------+ ? + +----- ---+---------+?+ -------+ PROCEDURAL OUTCOME + +1 Vessel Successful PCI?+ + ADVERSE OUTCOME(s)/COMPLICATION(s) + --------+None?+----+ PLAN + ----+1. ASA 81mg daily, indefinitely2. Clopidogrel 75 mg daily for at least one year, ideally longer if tolerated.3. Cardiac medical therapy and aggressive risk factor modification. Cardiacrehabilitation.4. Transferred to stepdown unit in stable conditionDEVICES:NoneMEDICA TIONS:Current Outpatient Prescriptions:isosorbide mononitrate ER (IMDUR) 30 mg 24 hr tablet Take 1 tablet by mouth oncedaily.metoprolol succinate ER (TOPROL XL) 50 mg 24 hr tablet Take 25 mg by mouth oncedaily.aspirin, enteric coated (ASPIRIN, ENTERIC COATED) 81 mg EC tablet Take 81 mg bymouth once daily.Hatod-2-WVB-EPA-Fish Oil 1,200 (144-216) mg cap Take by mouth twice daily.clopidogrel (PLAVIX) 75 mg tablet Take 75 mg by mouth once daily.No current facility-administered medications for this visit.Is the patient currently on any anticoagulant medications: Yes: Anticoagulantmedications the patient is currently on: Aspirin: Last dose: 12/26/2017 andClopidogrel: Last dose: 12/26/2017This was adequately stopped before surgery: No, primary service aware.PAIN AND ANXIETY EDUCATION AND MANAGEMENT:Patient has no concerns to address at this time.Additional Comments: NoneI have reviewed the Cardiothoracic Surgical Assessment and agree with itsfindings. During the course of the encounter the patient was prepared foranesthetic care. This conversation included anesthetic options, possible use ofinvasive monitoring, the risks, benefits, alternatives, and personnel that willbe present for the anesthetic encounter. The patient agreed to proceed with theplanned anesthetic.Instructed to take ASA, Plavix, Metoprolol with a small sip of water asscheduled.BETA MARBELLA COMPLIANCE:Is the Patient Scheduled for a CABG: NoSIGNATURE: Michaela Mendez DO PATIENT NAME: Joseluis VargasDATE: December 26, 2017 : 12:15 PM PAGER/CONTACT #: Jonel [facility] CNOVon 12-21-2017 CNOV Office Visit (CATHMN) -------SAM,JONAS E ([id number]) 1940 MDate Time Provider Department12/21/17 12:15 PM TIFFANIE CANCINO During your visit today, we recorded the following information about you: Pulse Respiration Blood pressure Weight 55/minute 14/minute 120/61 84.6 kg Height 1.676 Kavita Cancino MD 12/27/2017 6:03 PM [facility] Department of Cardiovascular MedicineSECTION OF INTERVENTIONAL CARDIOLOGYOUTPATIENT VISIT DATE December 21, 2017OUTPATIENT VISIT TYPEESTABLISHEDPRIMARY CARE PHYSICIAN:Gil Gonzalez MD ([facility])[address] [place] [id number]: [phone]: [phone] COMPLAINT:Patient presents with:Hospital F/U: Nonrheumatic aortic valve stenosisHISTORY OF PRESENT ILLNESS:Mr. Vargas is a 77 year old male who presents today for follow-up visitfurther to recent percutaneous intervention.He denies orthopnea, PND, palpitations, lightheadedness and syncope.PAST CARDIAC HISTORY:See HPIPAST MEDICAL HISTORYDiagnosis Date- Aortic stenosis- CAD (coronary artery disease)- Hyperlipidemia intol of statins- S/P angioplasty with stent- S/P CABG (coronary artery bypass graft) twice 1995x 1 2001 x3PAST SURGICAL HISTORYProcedure Laterality Date- CABG (1) VEIN GRAFT AND ARTERIAL GRAFT 1995- CABG (3) VEIN GRAFTS AND ARTERIAL GRAFT(S) 2001- HERNIA REPAIR HXSOCIAL HISTORYSocial HistorySubstance Use Topics- Smoking status: Never Smoker- Smokeless tobacco: Never Used- Alcohol use NoFAMILY HISTORYProblem Relation Age of Onset- CHF [OTHER] Mother age 77- Myocardial infarction [OTHER] Father 73 - Coronary stent [OTHER] Brother 66 of leukemiaALLERGIES:ALLERGIES No Known AllergiesMEDICATIONS:isosor bide mononitrate ER (IMDUR) 60 mg 24 hr tablet Take 30 mg by mouth oncedaily.metoprolol succinate ER (TOPROL XL) 50 mg 24 hr tablet Take 25 mg by mouth oncedaily.aspirin, enteric coated (ASPIRIN, ENTERIC COATED) 81 mg EC tablet Take 81 mg bymouth once daily.Cujgt-3-REA-EPA-Fish Oil 1,200 (144-216) mg cap Take by mouth twice daily.clopidogrel (PLAVIX) 75 mg tablet Take 75 mg by mouth once daily.REVIEW OF SYSTEMS:GENERAL: Negative for: Weight loss or gain, Fever or Chills, Weakness and Sleepdifficulties.HEENT: Negative for: Headache, Impaired Vision, Glasses, Hearing Impairment,Ringing in Ears, Nosebleeds, Poor dental care, Bleeding Gums, DenturesNECK: Negative for: Swelling, Pain, StiffnessRESPIRATORY: Negative for: Cough, Blood in Sputum, Shortness of breath,Wheezing, ApneaGASTROINTESTINAL: Negative for: Trouble swallowing, Heartburn, Change in bowelhabits, Blood in stool, Dark black stoolsMUSCULOSKELETAL: Negative for: Muscle or joint pain, Stiffness , Joint swellingNEUROLOGIC/PSYCHIAT ADDI: Negative for: Weakness, Paralysis, Numbness, Tingling,Tremor, Nervousness, Depressed mood, Memory lossSKIN: Negative for: Rashes, ItchingHEMATOLOGICAL/LYMPHA TIC: Negative for: Easy bruising , Easy bleedingENDOCRINE: Negative for: Heat or cold intolerance, Excessive sweating, Frequenturination, Frequent thirstPHYSICAL EXAMINATION:BP 120/61 Pulse 55 Resp 14 Ht 5' 5.984 (1.68m) Wt 186 lb 8 oz (84.6kg) SpO2 97[room air]% BMI 30.12 kg/(m2).General: Well appearing, in no acute distress, speaking in complete sentences.Skin: No clubbing, no cyanosis.Head/Eyes: Extra ocular movements intactMouth: Teeth in good repair.Neck: No jugular venous distention, no carotid bruits, carotids have a normalupstroke, no palpable thyromegaly.Lungs: Clear to auscultation and no ralesHeart: Regular rhythm, PMI not displaced, S1, S2 normal, no S3, no S4, noheaves, no rub and no murmur.PV Pulses:Pulses intactAbdomen: Soft, nontender, bowel sounds normal, no palpable organomegaly, nobruits.Extremities: No peripheral edema . Grade 2/4 distal pulses bilaterally.Edema Scale: NoMusculoskeletal: Normal gait and ambulationNeuro: Oriented to time, place and personCARDIOVASCULAR MEDICINE TESTING:No Cardiovascular testing perfomed today.I have personally reviewed the Echocardiogram, CardiacCatheterization/Perc utaneous Coronary Intervention (PCI) and Cardiac CTCoronary Angiography.IMPRESSION:Mr. Vargas is a 77 year old male who returns to clinic today further torecent percutaneous coronary intervention.Mr. Vargas initially presented this clinic several weeks ago for theevaluation of severe aortic stenosis. His valve appears moderate to severe inthe setting of a long-standing ischemic cardiomyopathy with mild LVdysfunction. He had significant and revascularized coronary disease in a goodsize right coronary artery and given that one of his chief presentingcomplaints was angina we proceeded with percutaneous coronary dimension to theRCA as an initial step. He returns for follow-up today.Unfortunately, Mr. Vargas has not experienced any significant improvementin his symptoms further to what was a successful PCI. He continues toexperience exertional shortness of breath and occasional episodes of chesttightness with no improvement in his overall functional capacity as compared toprior to intervention. He reports no unstable sounding symptoms and continuesto tolerate his dual antiplatelet therapy well with no major bleeding problems. He denies syncope or severe symptoms of heart failure with no orthopnea, PNDor edema.I examinedMr. Vargas today and found that he looked very well. He hassevere aortic stenosis clinically with a harsh ejection systolic murmur at thebase of the heart with a diminished second heart sound but no signs of heartfailure with no jugular venous distention, a clear chest to auscultation and nopedal edema. His right radial artery puncture site has healed well and otherexamination is noncontributory.PLAN AND RECOMMENDATIONS:Mr. Vargas has severe, symptomatic aortic stenosis with persistentsymptoms despite complete revascularization. We will proceed with transfemoraltranscatheter aortic valve replacement for which he appears to be a goodcandidate. We will plan to move forward in coming weeks. I again discussedthe relative risks and benefits of the procedure to which he and his family areagreeable.Yours sincerely,Wilton Cancino M.D.CONTACT INFORMATION:Referring Provider: TIFFANIE CANCINO [[id number]]Allergies As of Date: 12/21/2017(No Known Allergies)Date Reviewed: 12/21/2017Reviewed by: Octavia Alexander) BETTINA Guerrero - Fully AssessedReason for Visit: Hospital F/U [57] Cmt: Nonrheumatic aortic valve stenosisPrimary Visit Diagnosis:Aortic valve disorder [I35.9] Other Visit Diagnosis:Nonrheumatic aortic valve stenosis [I35.0]Order(s):ECG COMPLETE W INTERPRETATION [ECG01] Order #: [id number] FUTURE XR CHEST 2V FRONTAL/LAT [[id number]] Order #: [id number] FUTURE ECHO TRANSESOPHAGEAL [[id number]] Order #: [id number]: 1 FUTURE TYPE + SCREEN,30 DAY [[id number]] Order #: [id number] FUTURE NT PRO BNP [SQNTBNP] Order #: [id number] FUTURE CBC + DIFF [SQCBCDIF] Order #: [id number] FUTURE COMP METABOLIC PANEL [SQCMP] Order #: [id number] FUTURE CONFIRM BLOOD TYPE [SQCONABO] Order #: [id number] FUTUREPrescriptions as of 12/21/2017 Sig: METOPROLOL SUCCINATE ER 50 MG* Take 25 mg by mouth once angeles* ASPIRIN 81 MG TABLET,DELAYED * Take 81 mg by mouth once angeles* OMEGA 2-HRU-GBK-FISH OIL 1,20* Take by mouth twice daily. CLOPIDOGREL 75 MG TABLET Take 75 mg by mouth once angeles*X ISOSORBIDE MONONITRATE ER 60 * Take 30 mg by mouth once angeles*Problem List As Of Date 12/21/2017 Noted Resolved CAD (coronary artery disease) [I25.10] More... Aortic stenosis [I35.0] More...Medications Discontinued During This Encounter Garlic 1,000 mg cap 12/21/2017 Class: Historical Med Route: ORAL Sig: Take 1 capsule by mouth once daily. Disc: Course of therapy completed MINERALS ORAL 12/21/2017 Class: Historical Med Route: ORAL Sig: Take by mouth once daily. Chelated minerals liquid Disc: Course of therapy completed OTC PRODUCT 12/21/2017 Class: Historical Med Si tablet three times daily. Natural artery care Disc: Course of therapy completedEncounter Number: [id number] Status:Closed by TIFFANIE CANCINO on 12/27/17 Normal [facility] PROGRESSon 12-21-2017 Protein mass conc HNO ID: [id number] thor: Tiffanie Velazquezervice: (none)Author Type: PhysicianType: Progress NotesFiled: 12/27/2017 6:03 PMNote Text:[facility] Department of Cardiovascular MedicineSECTION OF INTERVENTIONAL CARDIOLOGYOUTPATIENT VISIT DATE December 21, 2017OUTPATIENT VISIT TYPEESTABLISHEDPRIMARY CARE PHYSICIAN:Gil Gonzalez MD ([facility])[address] [place] [id number]: [phone]: [phone] COMPLAINT:Patient presents with:Hospital F/U: Nonrheumatic aortic valve stenosisHISTORY OF PRESENT ILLNESS:Mr. Vargas is a 77 year old male who presents today for follow-upvisit further to recent percutaneous intervention.He denies orthopnea, PND, palpitations, lightheadedness and syncope.PAST CARDIAC HISTORY:See HPIPAST MEDICAL HISTORYDiagnosis Date- Aortic stenosis- CAD (coronary artery disease)- Hyperlipidemia intol of statins- S/P angioplasty with stent- S/P CABG (coronary artery bypass graft) twice 1995x 1 2002 x3PAST SURGICAL HISTORYProcedure Laterality Date- CABG (1) VEIN GRAFT AND ARTERIAL GRAFT 1995- CABG (3) VEIN GRAFTS AND ARTERIAL GRAFT(S) 2001- HERNIA REPAIR HXSOCIAL HISTORYSocial HistorySubstance Use Topics- Smoking status: Never Smoker- Smokeless tobacco: Never Used- Alcohol use NoFAMILY HISTORYProblem Relation Age of Onset- CHF [OTHER] Mother age 77- Myocardial infarction [OTHER] Father 73 - Coronary stent [OTHER] Brother 66 of leukemiaALLERGIES:ALLERGIES No Known AllergiesMEDICATIONS:isosor bide mononitrate ER (IMDUR) 60 mg 24 hr tablet Take 30 mg by mouthonce daily.metoprolol succinate ER (TOPROL XL) 50 mg 24 hr tablet Take 25 mg by mouthonce daily.aspirin, enteric coated (ASPIRIN, ENTERIC COATED) 81 mg EC tablet Take 81mg by mouth once daily.Xdklp-9-HDQ-EPA-Fish Oil 1,200 (144-216) mg cap Take by mouth twice daily.clopidogrel (PLAVIX) 75 mg tablet Take 75 mg by mouth once daily.REVIEW OF SYSTEMS:GENERAL: Negative for: Weight loss or gain, Fever or Chills, Weakness andSleep difficulties.HEENT: Negative for: Headache, Impaired Vision, Glasses, HearingImpairment, Ringing in Ears, Nosebleeds, Poor dental care, Bleeding Gums,DenturesNECK: Negative for: Swelling, Pain, StiffnessRESPIRATORY: Negative for: Cough, Blood in Sputum, Shortness of breath,Wheezing, ApneaGASTROINTESTINAL: Negative for: Trouble swallowing, Heartburn, Change inbowel habits, Blood in stool, Dark black stoolsMUSCULOSKELETAL: Negative for: Muscle or joint pain, Stiffness , JointswellingNEUROLOGIC/PSY CHIATRIC: Negative for: Weakness, Paralysis, Numbness,Tingling, Tremor, Nervousness, Depressed mood, Memory lossSKIN: Negative for: Rashes, ItchingHEMATOLOGICAL/LYMPHA TIC: Negative for: Easy bruising , Easy bleedingENDOCRINE: Negative for: Heat or cold intolerance, Excessive sweating,Frequent urination, Frequent thirstPHYSICAL EXAMINATION:BP 120/61 Pulse 55 Resp 14 Ht 5' 5.984 (1.68m) Wt 186 lb 8 oz(84.6kg) SpO2 97[room air]% BMI 30.12 kg/(m2).General: Well appearing, in no acute distress, speaking in completesentences.Skin: No clubbing, no cyanosis.Head/Eyes: Extra ocular movements intactMouth: Teeth in good repair.Neck: No jugular venous distention, no carotid bruits, carotids have anormal upstroke, no palpable thyromegaly.Lungs: Clear to auscultation and no ralesHeart: Regular rhythm, PMI not displaced, S1, S2 normal, no S3, no S4, noheaves, no rub and no murmur.PV Pulses:Pulses intactAbdomen: Soft, nontender, bowel sounds normal, no palpable organomegaly,no bruits.Extremities: No peripheral edema . Grade 2/4 distal pulses bilaterally.Edema Scale: NoMusculoskeletal: Normal gait and ambulationNeuro: Oriented to time, place and personCARDIOVASCULAR MEDICINE TESTING:No Cardiovascular testing perfomed today.I have personally reviewed the Echocardiogram, CardiacCatheterization/Perc utaneous Coronary Intervention (PCI) and Cardiac CTCoronary Angiography.IMPRESSION:Mr. Vargas is a 77 year old male who returns to clinic todayfurther to recent percutaneous coronary intervention.Mr. Vargas initially presented this clinic several weeks ago for theevaluation of severe aortic stenosis. His valve appears moderate tosevere in the setting of a long-standing ischemic cardiomyopathy with mildLV dysfunction. He had significant and revascularized coronary disease antolin good size right coronary artery and given that one of his chiefpresenting complaints was angina we proceeded with percutaneous coronarydimension to the RCA as an initial step. He returns for follow-up today.Unfortunately, Mr. Vargas has not experienced any significantimprovement in his symptoms further to what was a successful PCI. Hecontinues to experience exertional shortness of breath and occasionalepisodes of chest tightness with no improvement in his overall functionalcapacity as compared to prior to intervention. He reports no unstablesounding symptoms and continues to tolerate his dual antiplatelet therapywell with no major bleeding problems. He denies syncope or severesymptoms of heart failure with no orthopnea, PND or edema.I examinedMr. Vargas today and found that he looked very well. Hehas severe aortic stenosis clinically with a harsh ejection systolicmurmur at the base of the heart with a diminished second heart sound butno signs of heart failure with no jugular venous distention, a clear chestto auscultation and no pedal edema. His right radial artery puncture sitehas healed well and other examination is noncontributory.PLAN AND RECOMMENDATIONS:Mr. Vargas has severe, symptomatic aortic stenosis with persistentsymptoms despite complete revascularization. We will proceed withtransfemoral transcatheter aortic valve replacement for which he appearsto be a good candidate. We will plan to move forward in coming weeks. Nancy discussed the relative risks and benefits of the procedure to whichhe and his family are agreeable.Yours sincerely,Wilton Cancino M.D.CONTACT INFORMATION: [facility] CNCOon 11-29-2017 [facility] Letter TextApril 2017Clairemane Vargas6585 [facility] [address]Zbuj Mr. Vargas,The nurses and staff of -2 nursing unit at [facility] hope thisletter finds you feeling well and progressing in your recovery. It was anhonor for us to provide your nursing care. We know that placing our PatientsFirst and maintaining a culture of continuous improvement, each and everyday, are essential to the success of our organization.We want to hear from you. If you have any comments, questions or concernsabout your hospital stay, please feel free to contact me, Wisam Harmon RN [phone] or e-mail [email or web address].Additionall y, you will receive a survey in the mail asking you to rate thecare you received while in the hospital. Please take the time to completeand send back the survey. I personally review all the results and wouldappreciate your feedback. Please consider completing this survey for eachindividual visit.Thank you in advance for your participation and thank you for [facility].Sincerely,Wisam Harmon RNNurse Manager-2 Cardiology Step-down Unit [facility] Basic Metabolic Panlon 11-23 Anion gap 3 molar conc 12 mmol/L Normal 9-18 [facility] [place] Comment on above: Performed By: #### C BCDIF, PT, CMP, NTBNP ####[facility] [phone] Calcium mass conc 8.7 mg/dL Normal 8.5-10.2 [facility] Comment on above: Performed By: #### C BCDIF, PT, CMP, NTBNP ####[place] [address] [place] [phone] Chloride molar conc 101 mmol/L Normal 97-105 [facility] Comment on above: Performed By: #### C BCDIF, PT, CMP, NTBNP ####[place] [address] [place] [phone] CO2 molar conc 24 mmol/L Normal 22-30 [facility] [place] Comment on above: Performed By: #### C BCDIF, PT, CMP, NTBNP ####[place] [address] [place] [phone] Creatinine mass conc 0.97 mg/dL Normal 0.73-1.22 [facility] Comment on above: Performed By: #### C BCDIF, PT, CMP, NTBNP ####[place] [address] [place] [phone] eGFR- Amer. >60 Normal [facility] Comment on above: Performed By: #### C BCDIF, PT, CMP, NTBNP ####[place] [address] [phone] GFR/1.73 sq M predicted among non-blacks MDRD vol rate/area (S/P/Bld) mL/min/{1.73_m2} Normal [facility] [place] Comment on above: Result Comment: eGFR (Estimated GFR) Units of measure: mL/min/1.73 meters squaredeGFR is derived from the reexpressed MDRD Study equation using the following parameters: serum creatinine, age, gender and race. The creatinine assay has been calibrated to be traceable to IDMS.An eGFR <60 mL/min/1.73m2 for >3 months is consistent with chronic kidney disease. Refer to KDOQI guidelines for clinical interpretation.In patients with unstable renal function, e.g. those with acute kidney injury, the eGFR may not accurately reflect actual GFR. Performed By: #### C BCDIF, PT, CMP, NTBNP ####[facility] [place], [place] [phone] Glucose mass conc 140 mg/dL High 74-99 [facility] Comment on above: Result Comment: The [place] Diabetes Association (ADA) provides guidance for cutoff values for fasting glucose and random glucose. The ADA defines fasting as no caloric intake for at least 8 hours. Fasting plasma glucose results between 100 to 125 mg/dL indicate increased risk for diabetes (prediabetes).Fasting plasma glucose results greater than or equal to 126 mg/dL meet the criteria for diagnosis of diabetes. In the absence of unequivocal hyperglycemia, results should be confirmed by repeat testing. In a patient with classic symptoms of hyperglycemia or hyperglycemic crisis, random plasma glucose results greater than or equal to 200 mg/dL meet the criteria for diagnosis of diabetes.Reference: Standards of Medical Care in Diabetes 2016, [place] Diabetes Association. Diabetes Care. 2016.39(Suppl 1). Performed By: #### C BCDIF, PT, CMP, NTBNP ####[facility] [place], [place] [phone] Potassium molar conc 3.9 mmol/L Normal 3.7-5.1 [facility] Comment on above: Performed By: #### C BCDIF, PT, CMP, NTBNP ####[facility] [place], [place] [phone] Sodium molar conc 137 mmol/L Normal 136-144 [facility] Comment on above: Performed By: #### C BCDIF, PT, CMP, NTBNP ####[facility] [place], [place] [phone] Urea nitrogen mass conc 20 mg/dL Normal 9-24 [facility] Comment on above: Performed By: #### C BCDIF, PT, CMP, NTBNP ####[facility] [address] [place], [place] [phone] CASE MGT INIT ASSESon 2017 CASE MGT INIT ASSES HNO ID: [id number] thor: Danielle (Shantell) Amilcar, RNService: Care ManagementAuthor Type: Registered NurseType: Care Mgt Initial AssessmentFiled: 11/23/2017 9:13 AMNote Text:CARE MANAGEMENT PROGRESS NOTESERVICE DATE: 11/23/2017SERVICE TIME: 9:12 AM LOS: 0 daysExtended recovery s/p PCI to the ostial, proximal, and mid-distal RCA witha 4.0/12 mm Synergy EES, 4.0/38 mm Synergy EES, and a 3.5/38 mm SynergyEES (post-dilated from the mid-segment back with a 4.0 mm NC).Independent. Has transportation home when discharged. No discharge needsat this time. Will continue to monitor clinical status andrecommendations by the medical team and f/u appropriately.SIGNATURE: Danielle Fitzgerald RN PATIENT NAME: Joseluis VargasDATE: November 23, 2017 : 9:12 AM PAGER/CONTACT #: [phone] Normal [facility] PROCEDUREon 11-23-2017 Protein mass conc HNO ID: [id number] thor: Pratik Cunningham (Fel)ervice: Interventional CardiologyAuthor Type: FellowType: ProceduresFiled: 11/22/2017 11:27 PMNote Text: INTERVENTIONAL CARDIOLOGY Procedure Note?Joseluis VargasMRN: [id number]: November 22, 2017Attending: Dr CancinoInterventional Fellow: Pratik Franco MDHISTORY OF PRESENT ILLNESS:Mr. Vargas is a 77 year old male with CABG (GRAJEDA-LAD) and re-do CABGin 2001 (V-OM1, V-rPDA occluded), severe symptomatic , HTN, and HLD whopresents today for PCI to the RCA prior to undergoing TAVR.PROCEDURES PERFORMED:PCI to the ostial, proximal, and mid-distal RCA with a 4.0/12 mm SynergyEES, 4.0/38 mm Synergy EES, and a 3.5/38 mm Synergy EES (post-dilated fromthe mid-segment back with a 4.0 mm NC)PROCEDURAL DETAILSAccess: 6 Fr RRAGuide Catheter(s): 6 Fr AL 0.75Guidewire(s): RunthroughOther Equipment: IVUSHemostasis: TR bandAnticoagulation: HeparinAdditional Post-procedure Medications: Clopidogrel 300 mg given prior totoday's procedurePROCEDURAL NARRATIVE:We engaged the RCA with the AL 0.75 guide catheter. After administeringheparin to a goal ACT of >250s, we advanced a Runthrough coronary wire tothe distal PDA. We pre-dilated the lesion with a 3.0/15 mm NC balloon at16-22 leora for multiple overlapping inflations. We then performed IVUS tosize the vessel and better understand the mechanism of ISR at the midsegment. This demonstrated severe disease at the ostium. We lmkdpgdprex-gmr-yonrflt with a 4.0/20 mm NC at 16-18 leora for severaloverlapping inflations. We then stented the mid-distal lesion with a3.5/38 mm Synergy EES at 16 leora. We then stented the proximal-mid segment4.0/38 mm Synergy EES at 16 leora overlapping with the prior stent. Finally,we stented the ostium-proximal segment with a 4.0/12 mm Synergy EES at 16atm. We then post-dilated the entire vessel from the mid-segment back witha 4.0/23 mm NC at 20-22 leora for several overlapping inflations. Follow-upIVUS run demonstrated good distal transition without edge dissection, andgood stent expansion/apposition. Final angiography showed no evidence ofdissection or perforation. There was RAYO 3 flow and 0% residualstenosis.PLAN:1. ASA 81mg daily, indefinitely2. Clopidogrel 75 mg daily for at least one year, ideally longer iftolerated.3. Cardiac medical therapy and aggressive risk factor modification.Cardiac rehabilitation.4. Transferred to stepdown unit in stable conditionCOMPLICATIONSNoneP lease do not hesitate to contact me with questions.Justin Franco MDInterventional Cardiology FellowPager: [phone] 2017 11:01 PM Normal [facility] PROGRESSon 11-23-2017 Protein mass conc HNO ID: [id number] thor: Pratik Cunningham (Fel)ervice: Interventional CardiologyAuthor Type: FellowType: Progress NotesFiled: 11/23/2017 8:57 AMNote Text: INTERVENTIONAL CARDIOLOGYPost Intervention Progress NotePROCEDURE:PCI to the ostial, proximal, and mid-distal RCA with a 4.0/12 mm SynergyEES, 4.0/38 mm Synergy EES, and a 3.5/38 mm Synergy EES (post-dilated fromthe mid-segment back with a 4.0 mm NC)SUBJECTIVE: no shortness of breath and no chest pain.Prior to Admission Medicationsisosorbide mononitrate ER (IMDUR) 60 mg 24 hr tablet Take 30 mg by mouthonce daily.metoprolol succinate ER (TOPROL XL) 50 mg 24 hr tablet Take 25 mg by mouthonce daily.aspirin, enteric coated (ASPIRIN, ENTERIC COATED) 81 mg EC tablet Take 81mg by mouth once daily.Garlic 1,000 mg cap Take 1 capsule by mouth once daily.Whuix-8-MGV-EPA-Fish Oil 1,200 (144-216) mg cap Take by mouth twice daily.clopidogrel (PLAVIX) 75 mg tablet Take 75 mg by mouth once daily.MINERALS ORAL Take by mouth once daily. Chelated minerals liquidOTC PRODUCT 1 tablet three times daily. Natural artery careCurrent Inpatient MedicationsCurrent hospital medications:isosorbide mononitrate ER 30 mg tab(s) (IMDUR) 30 mg ORAL DAILYmetoprolol succinate ER 25 mg tab(s) (TOPROL XL) 25 mg ORAL DAILYaspirin, enteric coated 81 mg tab(s) (ASPIRIN, ENTERIC COATED) 81 mg ORALDAILYGarlic cap 1,000 mg 1 capsule ORAL DAILYclopidogrel 75 mg tab(s) (PLAVIX) 75 mg ORAL DAILYNaCl 0.9% iv infusion 5-75 mL/hr INTRAVENOUS CONTINUOUSPHYSICAL EXAMBP 146/80 Pulse 61 Temp (!) 35.4 ?C (95.7 ?F) (Oral) Resp 20 Ht167.6 cm (5' 6) Wt 84.6 kg (186 lb 9.6 oz) SpO2 96% BMI 30.12 kg/m2Gen - nadNeck - no jvdHeart - rrrLungs - ctabAbd - benignExt - warm, no edema, 2+ pulses, no hematoma at the access siteLABS:Invalid input(s): PT, PTT, MBPAssessment and Plan:77 year old male status post PCI to the ostial, proximal, and mid-distalRCA with a 4.0/12 mm Synergy EES, 4.0/38 mm Synergy EES, and a 3.5/38 mmSynergy EES (post-dilated from the mid-segment back with a 4.0 mm NC)1. Aspirin for life2. Plavix 75 mg daily for at least 1 year3. Activity: ad lib4. Check EKG, labs, plan discharge today if normal5. Education: discussed risk factor modification including Exercise,Diet, Smoking cessation and Weight controlPratik Franco MDInterventional Cardiology FellowPager: [phone] 20178:57 AM Normal [facility] [place] 11-14-2017 CNPN Telephone (CATHMN) -------JOSELUIS VARGAS ([id number]) 1940 MDate Time Provider Department11/14/17 JAMI GUZMAN (HISTORY INSTRUCTOR) CATHMN During your visit today, we recorded the following information about you:Jami Guzman RN HOME HEALTH CARE PROVIDER.HISTORY INSTRUCTOR 11/14/2017 4:47 PM SignedAttempt made to speak with patient and review the valve team's recommendationfor PCI. No answer. VMX left.Request has been sent to the appointment scheduler to arrange a PCI procedure appointment.Horacio Boyd [facility] 11/15/2017 8:39 AM SignedPatient returned phone call and is waiting near the phone. Call as soon as youget in. Per the patient.[phone] Guzman RN HOME HEALTH CARE PROVIDER.LISA 11/16/2017 1:46 PM SignedSpoke with Mrs. Joseluis Courtney Sam. Informed of the recommendation for PCIwith Dr. Cancino. Answered all questions. Request has been sent to the schedulerto arrange an appointment.Allergies As of Date: 11/14/2017(No Known Allergies)Date Reviewed: 11/03/2017Reviewed by: Tonja CareyRn) SHANTELL Watkins - Fully AssessedReason for Visit: Patient Update [1234] Cmt: TAVRPrescriptions as of 11/14/2017 Sig: ISOSORBIDE MONONITRATE ER 60 * Take 30 mg by mouth once angeles* METOPROLOL SUCCINATE ER 50 MG* Take 25 mg by mouth once angeles* ASPIRIN 81 MG TABLET,DELAYED * Take 81 mg by mouth once angeles* GARLIC 1,000 MG CAPSULE Take 1 capsule by mouth once * OMEGA 0-PWZ-YRE-FISH OIL 1,20* Take by mouth twice daily. CLOPIDOGREL 75 MG TABLET Take 75 mg by mouth once angeles* MINERALS ORAL Take by mouth once daily. Barbara* OTC PRODUCT 1 tablet three times daily. N*Problem List As Of Date 11/14/2017 Noted Resolved CAD (coronary artery disease) [I25.10] Aortic stenosis [I35.0] Status:Closed by JAMI BROWN RN on 11/14/17 [facility] 11-13-2017 HOSP Patient Update (CATHMN) -------SAMJOSELUIS ([id number]) 1940 MDate Time Provider Department11/13/17 JAMI GUZMAN (HISTORY INSTRUCTOR) CATHMN During your visit today, we recorded the following information about you:Jami Guzman RN HOME HEALTH CARE PROVIDER.HISTORY INSTRUCTOR 11/13/2017 9:26 AM SignedMULTI DISCIPLINARY HIGH RISK AVR CARDIAC TEAMMembers present: Dr. Villa, Dr. Eid, Dr. Cancino, Dr. Paiz, , ,Dr. Diana, Dr. Vargas, Dr. Herrera, Dr Alfaro, Van Cesar RNPresenting Physician: Dr CancinoPATIENT NAME: Joseluis VargasMRN: [id number]: November 13, 2017Outcome: Joseluis Vargas 's history and imaging were reviewed by thephysicians in attendance.Coronary angiogram reviewed. + anginaThe collaborative recommendation would be needs PCI RCA with Dr CancinoThe recommendations will be communicated to the patient by our office.Procedure scheduling will be handled by CVM appointment scheduler.Jami Guzman RN CNSAllergies As of Date: 11/13/2017(No Known Allergies)Date Reviewed: 11/03/2017Reviewed by: Tonja Lee) SHANTELL Watkins - Fully AssessedReason for Visit: Patient Update [1234] Cmt: TAVR Team ReviewPrescriptions as of 11/13/2017 Sig: ISOSORBIDE MONONITRATE ER 60 * Take 30 mg by mouth once angeles* METOPROLOL SUCCINATE ER 50 MG* Take 25 mg by mouth once angeles* ASPIRIN 81 MG TABLET,DELAYED * Take 81 mg by mouth once angeles* GARLIC 1,000 MG CAPSULE Take 1 capsule by mouth once * OMEGA 4-JRB-XTT-FISH OIL 1,20* Take by mouth twice daily. CLOPIDOGREL 75 MG TABLET Take 75 mg by mouth once angeles* MINERALS ORAL Take by mouth once daily. Barbara* OTC PRODUCT 1 tablet three times daily. N*Problem List As Of Date 11/13/2017 Noted Resolved CAD (coronary artery disease) [I25.10] Aortic stenosis [I35.0] Status:Closed by JAMI BROWN RN on 11/13/17 Normal [facility] PROGRESSon 11-13-2017 Protein mass conc HNO ID: [id number] thor: Jami Driver (Mark GuzmanService: (none)Author Type: Nurse SpecialistType: Progress NotesFiled: 11/13/2017 9:26 AMNote Text:MULTI DISCIPLINARY HIGH RISK AVR CARDIAC TEAMMembers present: Dr. Villa, Dr. Eid, Dr. Cancino, Dr. Paiz,Dr. Pedersen, ,Dr. Diana, Dr. Vargas, Dr. Herrera, Dr Alfaro, Barry, Alex Khan RNPresenting Physician: Dr CancinoPATIENT NAME: Joseluis VargasMRN: [id number]: November 13, 2017Outcome: Joseluis Vargas 's history and imaging were reviewed by thephysicians in attendance.Coronary angiogram reviewed. + anginaThe collaborative recommendation would be needs PCI RCA with Dr CancinoThe recommendations will be communicated to the patient by our office.Procedure scheduling will be handled by CVM appointment scheduler.Jami Guzman RN HISTORY INSTRUCTOR [facility] PROGRESSon 11-11-2017 Protein mass conc HNO ID: [id number] thor: Rachael Fernandesvice: (none)Author Type: PhysicianType: Progress NotesFiled: 11/11/2017 2:23 AMNote Text:CHART COPY DO NOT DISCARDPatient Type:ConsultVisit to determine Surgery:YesPCP:Gil Gonzalez MD ([facility])[address] [place] [address]Tgjww: [phone]: [phone] Physician::Tiffanie Cancino MD[address] [facility] [place] [address]IWP: Mr. Joseluis Vargas is a 77 year old male seen in consultation atthe request of Tiffanie Cancino for opinion regarding treatment options forAortic Stenosis, CAD, s/p CABG in 1995, 2001. He is currently symptomaticand complains of shortness of breath The Echocardiogram reveals aorticstenosis. Cath shows CAD.Based on my evaluation he is a high risk for open heart surgery and redoSAVR.Impression:Aortic Stenosis, CADPlan:would recommend TAVR + PCII spent 30 minutes in this visit, with more than 50% of the time devotedto patient counseling.These findings will be communicated back to the requesting physician via[facility] medical recordSnithin Pedersen MD [facility] CNOVon 11-10-2017 CNOV Office Visit (CATHMN) -------JOSELUIS VARGAS ([id number]) 1940 MDate Time Provider Department11/10/17 2:00 PM FELICIA COLVIN (HISTORY INSTRUCTOR) CATHMN During your visit today, we recorded the following information about you: Weight Height 80.7 kg 1.778 Jacque Colvin RN HOME HEALTH CARE PROVIDER.HISTORY INSTRUCTOR 11/10/2017 3:26 PM Replaced by [facility]Robert [facility]mand[facility] Department of Cardiovascular MedicineSECTION OF INTERVENTIONAL CARDIOLOGYOUTPATIENT VISIT DATE November 10, 2017OUTPATIENT VISIT TYPEESTABLISHEDPRIMARY CARE PHYSICIAN:Gil Gonzalez MD ([facility])[address] [place] [address]Ujmta: [phone]: [phone] COMPLAINT:Patient presents with:Aortic StenosisHISTORY OF PRESENT ILLNESS:Mr. Vargas is a 77 year old male who presents today for frailtyassessment and to discuss the evaluation process for aortic valve stenosis andtreatment options including possible TAVR. He was seen by Dr. Cancino on11/03/2017. His primary complaint is chest discomfort that can occur with dailyactivity. It is relieved with rest and if he does activity slowly. He doesexperience shortness of breath along with the chest discomfort. He denieslightheadedness, syncope and leg swelling.PAST MEDICAL HISTORYDiagnosis Date- Aortic stenosis- CAD (coronary artery disease)- Hyperlipidemia intol of statins- S/P angioplasty with stent- S/P CABG (coronary artery bypass graft) twice 1995x 1 2001 x3PAST SURGICAL HISTORYProcedure Laterality Date- CABG (1) VEIN GRAFT ANDamp; ARTERIAL GRAFT 1995- CABG (3) VEIN GRAFTS ANDamp; ARTERIAL GRAFT(S) 2001- HERNIA REPAIR HXSOCIAL HISTORYSocial HistorySubstance Use Topics- Smoking status: Never Smoker- Smokeless tobacco: Never Used- Alcohol use NoFAMILY HISTORYProblem Relation Age of Onset- CHF [OTHER] Mother age 77- Myocardial infarction [OTHER] Father 73 - Coronary stent [OTHER] Brother 66 of leukemiaALLERGIESNo Known AllergiesMEDICATIONS:isosor bide mononitrate ER (IMDUR) 60 mg 24 hr tablet Take 30 mg by mouth oncedaily.metoprolol succinate ER (TOPROL XL) 50 mg 24 hr tablet Take 25 mg by mouth oncedaily.aspirin, enteric coated (ASPIRIN, ENTERIC COATED) 81 mg EC tablet Take 81 mg bymouth once daily.Garlic 1,000 mg cap Take 1 capsule by mouth once daily.Yovxa-6-BZW-EPA-Fish Oil 1,200 (144-216) mg cap Take by mouth twice daily.clopidogrel (PLAVIX) 75 mg tablet Take 75 mg by mouth once daily.MINERALS ORAL Take by mouth once daily. Chelated minerals liquidOTC PRODUCT 1 tablet three times daily. Natural artery careFrailty Index Data Collection FormHt 5' 10ANDquot; (1.78m) Wt 178 lb (80.7kg) BMI 25.54 kg/(m2).Serum Albumin 4.1 g/dl Collection date/time: 11/03/2017KATZ Activities of Daily Living:ActivitiesPoints (1 or 0) [place]:(1 Point)No supervision, direction or personal assistance Dependence:(0 Points)With supervision,direction,perso nal assistance or total careBathingPoints: 1 (1Point)Bathes self completely or needs help in bathing only a single part of the bodysuch as the back, genital area or disabled extremity. (0 Points)Needs help with bathing more than one part of the body ,getting in or out ofthe tub or shower. Requires total bathing.DressingPoints: 1 (1 Point)Get clothes from closet and drawers and puts clothes and outer garmentscomplete with fasteners. May have help tying shoes. (0 Points)Needs help with dressing self or needs to be completely dressed.ToiletingPoints: 1 (1 Point)Goes to toilet, gets on and off, arranges clothes, cleans genital area withouthelp. (0 Points)Needs help transferring to the toilet, cleaning self or uses bedpan or commode.TransferringPoints: 1 (1 Point)Moves in and out of bed or chair unassisted. Mechanical transferring aids areacceptable (0 Points)Need help in moving from bed to chair or requires a complete transfer.ContinencePoints: 1 (1 Point)Exercise complete self control over urination and defecation. (0 Points)Is partiially or total incontinent of bowel and bladder.FeedingPoints: 1 (1 Point )Gets food from plate into mouth without help. Preparation of food may be doneby another person. (0 Points)Needs partial or total help with feeding or requires parenteral feeding.Total Points = 615 - Foot Walk: 7.25 seconds. Noticed some chest discomfort following the walk. Cutoff off time to walk 15 feet criterion for frailty:Men WomenHeight ANDlt; 173 cm ANDgt; 7 seconds Height ANDlt; 159 cm ANDgt; 7secondsHeight ANDgt; 173 cm ANDgt; 6 seconds Height ANDgt; 159 cm ANDgt; 6secondsSTS score: 3.24%CARDIOVASCULAR MEDICINE TESTING:ECHO 11/03/2017:AUSTIN: 0.87 Pk/Mn: 36 EF: 48% SVI: 34AI: 1+ MR: 2+ TR: 2+CTA 11/03/17:aortic annulus: 2.2 x 3.0Area: 4.8 xg0Gloywmjxjcktc: 8.0MLD= 8 mmIMPRESSION:Mr. Vargas is a 77 year old male with severe aortic valve stenosis andangina, NYHA FC III.PLAN AND RECOMMENDATIONS:I have spoken with Joseluis Vargas regarding the evaluation process for HRAVR. I reviewed the commercially available [employer] valve,including the valve model. I showed the animation of the TF procedure whileexplaining the procedure. I also reviewed the use of the [place] device. Wediscussed pre-op planning which includes the need to come 1-2 days prior tosurgery to have an updated HANDamp;P, pre-surgical labs and meet withanesthesia.Hospital stay follow TF-TAVR is generally 2-3 days. Activity restriction is noheavy lifting of more than 10 pounds for 1 week following TAVR and no extensivewalking. Also, post procedure not driving for at least 5 days. We alsodiscussed the use of Plavix and ASA post TAVR.Dental clearance waived as he has full dentures.I have reviewed the following test results: ECHO and CTA. I told him that if weneed to proceed with scheduling intervention for his coronary disease, this canbe done within the next couple of weeks. Someone from the office will notifyhim next week in regards to scheduling. I did inform him that this would alsorequire an overnight stay in the hospital.I explained to Joseluis Roz Vargas that this is a surgical evaluation as welland that TAVR was commercially approved for patients that are considered highrisk or intermediate risk for traditional OHS. I have discussed with Joseluis Renetta that once all of the testing has been completed, the results willbe reviewed by the HR AVR team and He will be notified of the recommendations.Felicia Colvin RN HOME HEALTH CARE PROVIDER.CNSI spent 20- minutes in this visit, with more than 50% of the time devoted topatient counseling.Referring Provider: TIFFANIE CANCINO [[id number]]Allergies As of Date: 11/10/2017(No Known Allergies)Date Reviewed: 11/03/2017Reviewed by: Tonja (Rn) SHANTELL Watkins - Fully AssessedReason for Visit: Aortic Stenosis [614]Visit Diagnoses:Coronary artery disease involving [place] coronary artery of [place] heart with angina pectoris with documented spasm (HCC) [I25.111] Nonrheumatic aortic valve stenosis [I35.0]Prescriptions as of 11/10/2017 Sig: ISOSORBIDE MONONITRATE ER 60 * Take 30 mg by mouth once angeles* METOPROLOL SUCCINATE ER 50 MG* Take 25 mg by mouth once angeles* ASPIRIN 81 MG TABLET,DELAYED * Take 81 mg by mouth once angeles* GARLIC 1,000 MG CAPSULE Take 1 capsule by mouth once * OMEGA 3-UST-ASQ-FISH OIL 1,20* Take by mouth twice daily. CLOPIDOGREL 75 MG TABLET Take 75 mg by mouth once angeles* MINERALS ORAL Take by mouth once daily. Barbara* OTC PRODUCT 1 tablet three times daily. N*Problem List As Of Date 11/10/2017 Noted Resolved CAD (coronary artery disease) [I25.10] Aortic stenosis [I35.0]Disposition: Return for scheduled.Follow-up and Disposition History RecordedEncounter Number: [id number] Status:Closed by HELD FELICIA GONZALEZ on 11/10/17 Normal [facility] CNOV Office Visit (TOMN) -------JOSELUIS VARGAS ([id number]) 1940 MDate Time Provider Department11/10/17 12:00 PM RACHAEL PEDERSEN [facility] During your visit today, we recorded the following information about you:Rachael Pedersen MD 11/11/2017 2:23 AM SignedCHART COPY DO NOT DISCARDPatient Type:ConsultVisit to determine Surgery:YesPCP:Gil Gonzalez MD ([facility])[address] [place] [id number]: [phone]: [phone] Physician::Tiffanie Cancino MD[address] [facility] [id number]: Mr. Joseluis Vargas is a 77 year old male seen in consultation at [facility] of Tiffanie Cancino for opinion regarding treatment options for AorticStenosis, CAD, s/p CABG in 1995, 2001. He is currently symptomatic andcomplains of shortness of breath The Echocardiogram reveals aortic stenosis.Cath shows CAD.Based on my evaluation he is a high risk for open heart surgery and redo SAVR.Impression:Aortic Stenosis, CADPlan:would recommend TAVR + PCII spent 30 minutes in this visit, with more than 50% of the time devoted topatient counseling.These findings will be communicated back to the requesting physician via[facility] medical recordShiDevyn Barahona Provider: TIFFANIE CANCINO [[id number]]Allergies As of Date: 11/10/2017(No Known Allergies)Date Reviewed: 11/03/2017Reviewed by: Tonja (Rn) SHANTELL Watkins - Fully AssessedPrimary Visit Diagnosis:Nonrheumatic aortic valve stenosis [I35.0]Prescriptions as of 11/10/2017 Sig: ISOSORBIDE MONONITRATE ER 60 * Take 30 mg by mouth once angeles* METOPROLOL SUCCINATE ER 50 MG* Take 25 mg by mouth once angeles* ASPIRIN 81 MG TABLET,DELAYED * Take 81 mg by mouth once angeles* GARLIC 1,000 MG CAPSULE Take 1 capsule by mouth once * OMEGA 7-UAE-OJM-FISH OIL 1,20* Take by mouth twice daily. CLOPIDOGREL 75 MG TABLET Take 75 mg by mouth once angeles* MINERALS ORAL Take by mouth once daily. Barbara* OTC PRODUCT 1 tablet three times daily. N*Problem List As Of Date 11/10/2017 Noted Resolved CAD (coronary artery disease) [I25.10] Aortic stenosis [I35.0] Status:Closed by RACHAEL PEDERSEN on 11/11/17 Normal [facility] PROGRESSon 11-10-2017 Protein mass conc HNO ID: [id number] thor: Felicia Santiago ([facility]) HeldService: (none)Author Type: Nurse SpecialistType: Progress NotesFiled: 11/10/2017 3:26 PMNote Text:[facility] InstituteRobert and [facility] Rothmand[facility] Department of Cardiovascular MedicineSECTION OF INTERVENTIONAL CARDIOLOGYOUTPATIENT VISIT DATE November 10, 2017OUTPATIENT VISIT TYPEESTABLISHEDPRIMARY CARE PHYSICIAN:Gil Gonzalez MD ([facility])[address] [place] [address]Bggbw: [phone]: [phone] COMPLAINT:Patient presents with:Aortic StenosisHISTORY OF PRESENT ILLNESS:Mr. Vargas is a 77 year old male who presents today for frailtyassessment and to discuss the evaluation process for aortic valve stenosisand treatment options including possible TAVR. He was seen by Dr. Cancino on11/03/2017. His primary complaint is chest discomfort that can occur withdaily activity. It is relieved with rest and if he does activity slowly.He does experience shortness of breath along with the chest discomfort.He denies lightheadedness, syncope and leg swelling.PAST MEDICAL HISTORYDiagnosis Date- Aortic stenosis- CAD (coronary artery disease)- Hyperlipidemia intol of statins- S/P angioplasty with stent- S/P CABG (coronary artery bypass graft) twice 1995x 1 2001 x3PAST SURGICAL HISTORYProcedure Laterality Date- CABG (1) VEIN GRAFT AND ARTERIAL GRAFT 1995- CABG (3) VEIN GRAFTS AND ARTERIAL GRAFT(S) 2001- HERNIA REPAIR HXSOCIAL HISTORYSocial HistorySubstance Use Topics- Smoking status: Never Smoker- Smokeless tobacco: Never Used- Alcohol use NoFAMILY HISTORYProblem Relation Age of Onset- CHF [OTHER] Mother age 77- Myocardial infarction [OTHER] Father 73 - Coronary stent [OTHER] Brother 66 of leukemiaALLERGIESNo Known AllergiesMEDICATIONS:isosor bide mononitrate ER (IMDUR) 60 mg 24 hr tablet Take 30 mg by mouthonce daily.metoprolol succinate ER (TOPROL XL) 50 mg 24 hr tablet Take 25 mg by mouthonce daily.aspirin, enteric coated (ASPIRIN, ENTERIC COATED) 81 mg EC tablet Take 81mg by mouth once daily.Garlic 1,000 mg cap Take 1 capsule by mouth once daily.Yzfca-0-RXN-EPA-Fish Oil 1,200 (144-216) mg cap Take by mouth twice daily.clopidogrel (PLAVIX) 75 mg tablet Take 75 mg by mouth once daily.MINERALS ORAL Take by mouth once daily. Chelated minerals liquidOTC PRODUCT 1 tablet three times daily. Natural artery careFrailty Index Data Collection FormHt 5' 10 (1.78m) Wt 178 lb (80.7kg) BMI 25.54 kg/(m2).Serum Albumin 4.1 g/dl Collection date/time: 11/03/2017[facility] Activities of Daily Living:ActivitiesPoints (1 or 0) Rosebud:(1 Point)No supervision, direction or personal assistance Dependence:(0 Points)With supervision,direction,perso nal assistance or total careBathingPoints: 1 (1Point)Bathes self completely or needs help in bathing only a single part of thebody such as the back, genital area or disabled extremity. (0 Points)Needs help with bathing more than one part of the body ,getting in or outof the tub or shower. Requires total bathing.DressingPoints: 1 (1 Point)Get clothes from closet and drawers and puts clothes and outer garmentscomplete with fasteners. May have help tying shoes. (0 Points)Needs help with dressing self or needs to be completely dressed.ToiletingPoints: 1 (1 Point)Goes to toilet, gets on and off, arranges clothes, cleans genital areawithout help. (0 Points)Needs help transferring to the toilet, cleaning self or uses bedpan orcommode.TransferringPoint s: 1 (1 Point)Moves in and out of bed or chair unassisted. Mechanical transferring aidsare acceptable (0 Points)Need help in moving from bed to chair or requires a complete transfer.ContinencePoints: 1 (1 Point)Exercise complete self control over urination and defecation. (0 Points)Is partiially or total incontinent of bowel and bladder.FeedingPoints: 1 (1 Point )Gets food from plate into mouth without help. Preparation of food may bedone by another person. (0 Points)Needs partial or total help with feeding or requires parenteral feeding.Total Points = 615 - Foot Walk: 7.25 seconds. Noticed some chest discomfort following thewalk. Cutoff off time to walk 15 feet criterion for frailty:Men WomenHeight < 173 cm > 7 seconds Height < 159 cm > 7 secondsHeight > 173 cm > 6 seconds Height > 159 cm > 6 secondsSTS score: 3.24%CARDIOVASCULAR MEDICINE TESTING:ECHO 11/03/2017:AUSTIN: 0.87 Pk/Mn: EF: 48% SVI: 34AI: 1+ MR: 2+ TR: 2+CTA 11/03/17:aortic annulus: 2.2 x 3.0Area: 4.8 vm9Wxtlbycnygajm: 8.0MLD= 8 mmIMPRESSION:Mr. Vargas is a 77 year old male with severe aortic valve stenosisand angina, NYHA FC III.PLAN AND RECOMMENDATIONS:I have spoken with Joseluis Vargas regarding the evaluation processfor HR AVR. I reviewed the commercially available Buckley Lifesciencesvalve, including the valve model. I showed the animation of the TFprocedure while explaining the procedure. I also reviewed the use of theSentinel device. We discussed pre-op planning which includes the need tocome 1-2 days prior to surgery to have an updated HANDP, pre-surgical labsand meet with anesthesia.Hospital stay follow TF-TAVR is generally 2-3 days. Activity restrictionis no heavy lifting of more than 10 pounds for 1 week following TAVR andno extensive walking. Also, post procedure not driving for at least 5days. We also discussed the use of Plavix and ASA post TAVR.Dental clearance waived as he has full dentures.I have reviewed the following test results: ECHO and CTA. I told him thatif we need to proceed with scheduling intervention for his coronarydisease, this can be done within the next couple of weeks. Someone fromthe office will notify him next week in regards to scheduling. I didinform him that this would also require an overnight stay in the hospital.I explained to Joseluis Vargas that this is a surgical evaluation aswell and that TAVR was commercially approved for patients that areconsidered high risk or intermediate risk for traditional OHS. I havediscussed with Joseluis Vargas that once all of the testing has beencompleted, the results will be reviewed by the HR AVR team and He will benotified of the recommendations.Felicia Colvin RN HOME HEALTH CARE PROVIDER.CNSI spent 20- minutes in this visit, with more than 50% of the time devotedto patient counseling. Normal [facility] CBC and Differentialon 11-03 Abs Baso <0.03 Normal <0.11 [facility] Comment on above: Performed By: #### C BCDIF, PT, CMP, NTBNP ####[facility] [address] [place], [place] [phone] Abs Quay 0.51 k/uL Normal <0.87 [facility] Comment on above: Performed By: #### C BCDIF, PT, CMP, NTBNP ####[facility] [address]CL[address], [place] [phone] Abs Neut 3.07 k/uL Normal 1.45-7.50 [facility] Comment on above: Performed By: #### C BCDIF, PT, CMP, NTBNP ####[facility] [address]CLeedey, [place] [phone] Absolute nRBC <0.01 Normal <0.01 [facility] Comment on above: Performed By: #### C BCDIF, PT, CMP, NTBNP ####[facility] AveClevelMatthew Ville [phone] Basophils/100 WBC Auto (Bld) 0.3 % Normal [facility] Comment on above: Performed By: #### C BCDIF, PT, CMP, NTBNP ####[place] [address]ClevelMatthew [address] [phone] DTYPE Auto Diff Normal [facility] Comment on above: Performed By: #### C BCDIF, PT, CMP, NTBNP ####[place] [address] [address]CSamantha [place] [phone] Eosinophils Auto #/vol (Bld) 0.17 10*3/uL Normal <0.46 [facility] Comment on above: Performed By: #### C BCDIF, PT, CMP, NTBNP ####[place] [address] [place] [phone] Eosinophils/100 WBC Auto (Bld) 2.6 % Normal [facility] Comment on above: Performed By: #### C BCDIF, PT, CMP, NTBNP ####[place] [address] [place] [phone] Erythrocyte distribution width Auto Ratio (RBC) 13.6 % Normal 11.5-15.0 [facility] Comment on above: Performed By: #### C BCDIF, PT, CMP, NTBNP ####[place] [address] [place] [phone] Hematocrit Auto Volume Fraction (Bld) 42.8 % Normal 39.0-51.0 [facility] Comment on above: Performed By: #### C BCDIF, PT, CMP, NTBNP ####[place] [address] [place] [phone] Hemoglobin mass conc (Bld) 13.7 g/dL Normal 13.0-17.0 [facility] Comment on above: Performed By: #### C BCDIF, PT, CMP, NTBNP ####[place] [address] [place] [phone] Lymphocytes Auto #/vol (Bld) 2.73 10*3/uL Normal 1.00-4.00 [facility] Comment on above: Performed By: #### C BCDIF, PT, CMP, NTBNP ####[place] [address] [phone] Lymphocytes/100 WBC Auto (Bld) 41.9 % Normal [facility] Comment on above: Performed By: #### C BCDIF, PT, CMP, NTBNP ####[address] AveCSamantha Ville [phone] MCH Auto Entitic mass (RBC) 29.0 pG Normal 26.0-34.0 [facility] Comment on above: Performed By: #### C BCDIF, PT, CMP, NTBNP ####[place] [address] [phone] MCHC Auto mass conc (RBC) 32.0 g/dL Normal 30.5-36.0 [facility] Comment on above: Performed By: #### C BCDIF, PT, CMP, NTBNP ####[place] [address] [phone] MCV Auto Entitic volume (RBC) 90.5 fL Normal 80.0-100.0 [facility] Comment on above: Performed By: #### C BCDIF, PT, CMP, NTBNP ####[place] [address] [phone] Monocytes/100 WBC Auto (Bld) 7.8 % Normal [facility] Comment on above: Performed By: #### C BCDIF, PT, CMP, NTBNP ####[place] [address] [address], [place] [phone] Neutrophils/100 WBC Auto (Bld) 47.4 % Normal [facility] Comment on above: Performed By: #### C BCDIF, PT, CMP, NTBNP ####[place] [address], [place] [phone] NRBCs 0.0 /100 WBC Normal 0 [facility] Comment on above: Performed By: #### C BCDIF, PT, CMP, NTBNP ####[place] [address], [place] [phone] Platelet mean volume Auto Entitic volume (Bld) 10.6 fL Normal 9.0-12.7 [facility] Comment on above: Performed By: #### C BCDIF, PT, CMP, NTBNP ####[address] [place], [place] [phone] Platelets Auto #/vol (Bld) 176 10*3/uL Normal 150-400 [facility] Comment on above: Performed By: #### C BCDIF, PT, CMP, NTBNP ####[address] [place], [place] [phone] RBC Auto #/vol (Bld) 4.73 10*6/uL Normal 4.20-6.00 [facility] Comment on above: Performed By: #### C BCDIF, PT, CMP, NTBNP ####[address] [place], [place] [phone] WBC Auto #/vol (Bld) 6.51 10*3/uL Normal 3.70-11.00 [facility] Comment on above: Performed By: #### C BCDIF, PT, CMP, NTBNP ####[place] [address], [place] [phone] CNOVon 11-03-2017 CNOV Office Visit (CATHMN) -------JOSELUIS VARGAS ([id number]) 1940 MDate Time Provider Department11/03/17 1:30 PM TIFFANIE CANCINO During your visit today, we recorded the following information about you: Pulse Blood pressure Weight Height 60/minute 131/64 85.5 kg 1.676 Kavita Cancino MD 11/23/2017 6:37 PM [facility] Department of Cardiovascular MedicineSECTION OF INTERVENTIONAL CARDIOLOGYOUTPATIENT VISIT DATE November 03, 2017OUTPATIENT VISIT TYPENEWPRIMARY CARE PHYSICIAN:Gil Gonzalez MD ([facility])[address] [place] [id number]: [phone]: [phone] PHYSICIAN:SELFCHIEF COMPLAINT:Coronary Artery DiseaseAortic StenosisHISTORY OF PRESENT ILLNESS:Mr. Vargas is a 77 year old male from [place], [place] who presents todayfor evaluation of coronary artery disease and .PMH consists of:- CAD s/p CABG 1995 [facility] ([facility] ), redo CABG (2001 [facility])- aortic stenosis- mitral valve regurgitation- HLD,- HTN.He was doing well since his his last CABG in 2001. In the last 6 months he hashad symptoms of SOB and chest pain which prompted a stress test evaluation.He has been statin intolerant int he past with symptoms ranging from voicechanges, kidney dysfunction and muscle aches in his shoulders. He tells me hehas tried multiple medications with his prior accounting manager cpa without success. Hehas not been on statin for this period.Given these symtpoms, Stress test in July 2017 that could not necessarilyrule out MA ischemia. Heart cath as below.He had a stress test in July 2017 that could not rule out ischemiaprompting a [facility] as belowTTE Jul 30 showed EF 45%, mildly enlarged left atrium, moderate MR, moderate tosevere diffuse thickening of aortic valve. Aortic mean 31, peak gradient of 18,AUSTIN 1.5, aortic vti 73.5Left Heart Catheterization @ [facility] 09/12/2017 (load into syngo)RHC:Thermal CO 2.71, Thermal CI 1.38RA 4, RV 44/2, PA 44/14 (25), PCWP 17PVR 236, SVR 2686AVA 0.67, LILLY 0.34, AV mean gradient 22. 5LM 95%LAD 100%LCX 99%RCA proximal moderate, mid 85% eccentric, distal 85% eccentricGRAFTSLIMA - LAD - patentSVG - OM1 - patentSVG-rPDA - occludedCurrent SymptomsShortness of breath and chest pain with exertion. Patient states somelightheadedness when bending.He feels like the last 6 months he has noticed the SOB and chest pain. Hedescribes the pain as a burning sensation. He has to stop if he is walking bakari incline. Stops for a few minutes then resolves on its own.Current Cardiac Medications- aspirin 81 mg; metoprolol tartrate 25 mb BID, isosorbide mononitrate 30 mgdaily, plavix 75 mg daily- Reports adherence to medications without difficulty.Cardiac Review of Systems:Chest Pain: Yes Diaphoresis: NoShortness of breath Yes Dyspnea on Exertion YesLightheadedness: Yes Nausea/vomiting: NoPalpitations: No Syncope/Presyncope: NoOrthopnea: No PND NoClaudication: No Leg Swelling NoCardiac Risk Factors:? Smoking: Nonsmoker (Never Smoked)? Diabetes: no? Hyperlipidemia: yes -- intolerant to statin? Hypertension: yesActivity- Most active thing they are able to do is walking up an incline. 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 MEDICAL HISTORYDiagnosis Date- Aortic stenosis- CAD (coronary artery disease)- Hyperlipidemia intol of statins- S/P angioplasty with stent- S/P CABG (coronary artery bypass graft) twice 1995x 1 2001 x3PAST SURGICAL HISTORYProcedure Laterality Date- CABG (1) VEIN GRAFT ANDamp; ARTERIAL GRAFT 1995- CABG (3) VEIN GRAFTS ANDamp; ARTERIAL GRAFT(S) 2001- HERNIA REPAIR HXSOCIAL HISTORYSocial HistorySubstance Use Topics- Smoking status: Never Smoker- Smokeless tobacco: Never Used- Alcohol use NoFAMILY HISTORYProblem Relation Age of Onset- CHF [OTHER] Mother age 77- Myocardial infarction [OTHER] Father 73 - Coronary stent [OTHER] Brother 66 of leukemiaALLERGIES:ALLERGIES No Known AllergiesMEDICATIONS:isosor bide mononitrate ER (IMDUR) 60 mg 24 hr tablet Take 30 mg by mouth oncedaily.metoprolol succinate ER (TOPROL XL) 50 mg 24 hr tablet Take 25 mg by mouth oncedaily.aspirin, enteric coated (ASPIRIN, ENTERIC COATED) 81 mg EC tablet Take 81 mg bymouth once daily.Garlic 1,000 mg cap Take 1 capsule by mouth once daily.Ujtri-5-ZTD-EPA-Fish Oil 1,200 (144-216) mg cap Take by mouth twice daily.clopidogrel (PLAVIX) 75 mg tablet Take 75 mg by mouth once daily.MINERALS ORAL Take by mouth once daily. Chelated minerals liquidOTC PRODUCT 1 tablet three times daily. Natural artery careREVIEW OF SYSTEMS:12 point ROS negative as per HPIPHYSICAL EXAMINATION:BP 131/64 Pulse 60 Ht 5' 6ANDquot; (1.68m) Wt 188 lb 8 oz (85.5kg) OmN389% BMI 30.44 kg/(m2).General Appearance: Well developed and no acute distressHEENT: JVP at midlevel with HOB at 90 degreesLungs: clear to auscultation bilaterallyHeart: Regular rate ANDamp; rhythm, crescendo murmurs, rubsAbdomen: Soft, Non-tender and Non-distended, no flank edemaSkin: dry, no edema, warm,Extremities: No deformitiesNeurologic/Psych iatric: alert, oriented and no gross focal neurologic deficitsCARDIOVASCULAR MEDICINE TESTING:Electrocardiogram 11/03/2017NSR with 1st degree AV blockEchocardiogram @ OSHEF 45%2+ MR1+ PILeft Heart Catheterization @ [facility] 09/12/2017RHC:Thermal CO 2.71, Thermal CI 1.38RA 4, RV 44/2, PA 44/14 (25), PCWP 17PVR 236, SVR 2686AVA 0.67, LILLY 0.34, AV mean gradient 22. 5LM 95%LAD 100%LCX 99%RCA proximal moderate, mid 85% eccentric, distal 85% eccentricGRAFTSLIMA - LAD - patentSVG - OM1 - patentSVG-rPDA - occludedExercise SPECT Stress 08/03/2017 @ [place] depression in II, III, aVF, V5-I7Flksxbaxsh perfusion changes concerning for physiologic apical thinning,however, equivocal apical myocardial ischemia cannot be excluded.IMPRESSION:Dyspnea and Typical Chest PainHe has unrevascularized RCA and an occluded SVG to RCA that is the likelyculprit for at least part of his picture. HIs aortic valve is certrainlystenotic but it is not certain if it is currently within the severe range ofstenosis. We will obtain further echo imaging and evaluation prior to get rubén comprehensive evaluation of his dyspnea that has started in the last 6months.More specifically, His current symptoms include: yes angina, nopresyncope/syncope, no heart failure, And primarily Shortness of breath.The TTE is pendingThe ECG shows NSR with 1st degree AV blockLeft Heart Catheterization @ [facility] 09/12/2017RHC:Thermal CO 2.71, Thermal CI 1.38RA 4, RV 44/2, PA 44/14 (25), PCWP 17PVR 236, SVR 2686AVA 0.67, LILLY 0.34, AV mean gradient 22. 5LM 95%LAD 100%LCX 99%RCA proximal moderate, mid 85% eccentric, distal 85% eccentricGRAFTSLIMA - LAD - patentSVG - OM1 - patentSVG-rPDA - occludedPLAN- Will be reviewed by the structural intervention and surgical teams for finalrecommendations.- continue medical therapy for now- all questions answered- Plan discussed with Staff Water/Wastewater Project Engineer, Dr Tiffanie Cancino. Note andrecommendations will be finalized upon his final attestation/recommendations .---------Wilton Charlton MD MPHCardiovascular Medicine Fellow, PGY - 5CTriHealth McCullough-[facility] - [facility] Heart and [email or web address] STAFF PHYSICIAN NOTE OF PERSONAL INVOLVEMENT IN CAREMr Vargas is a functional and independent 77 year-old gentleman withmoderate comorbidity, including 2 previous sternotomies for coronary arterybypass surgery with a reoperation in 2001, and hypertension.Mr Vargas presents with a six-month history of progressive exertionalchest pain and shortness of breath. 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 When he was a symptomatically 12 months ago,over the last 6 months he has noticed the gradual onset of central chest painand shortness of breath on moderate physical activity.. There is no historyofsyncope, palpitations, or more prominent symptoms of heart failure with noorthopnea, PND or edema. There is no history of pulmonary-type symptoms with nocough, sputum, hemoptysis, wheeze, dysphonia, or unintentional weight loss; norGI symptoms with no dysphagia, loss of appetite, change in bowel habit orsymptoms of bleeding.I examined Mr Vargas today and found that he looked well. His bloodpressure was 131/64 mmHg and heart rate is 60 per minute. There is an ejectionsystolic murmur at the base of the heart with a clearly audible second heartsound with no signs of heart failure with no jugular venous distension, a clearchest to auscultation and no pedal edema. The state of the dentition is good,the abdomen is soft and non-tender and other examination is non-contributory.Echocardio graphy shows severe calcification and restriction of all 3 leafletsof trileaflet valve. The lateral aspect of the right coronary cusp howeveropens widely which is somewhat receding on the parasternal long axis. Hisnon-and left coronary leaflets are severely restricted however. He has a peakvelocity through the outflow tract of 2.6 m/s with peak and mean gradients of27 and 17 mmHg respectively and the dimensionless index of 0.4 in the settingof probably moderate LV dysfunction with an ejection fraction in the order of40-45% and no other significant valve disease. A gated cardiac CTA, althoughlimited significantly by artifact, has shown mild calcification and moderate tosevere restriction of a tricuspid valve. His aortic annulus measures thefjbb420 and 550 mm? with sinuses of Valsalva of only 29 mm and an STJ of only 26mm. Coronary angiography showed no obvious targets for PCI in the [place] leftcirculation with a patent GRAJEDA to his LAD and a patent vein graft to thelateral wall. The vein graft to the right coronary artery was occluded withsevere, heavily calcified diffuse disease of the [place] right coronary arterythat would be amenable to complex PCI.at catheterization, his pulmonarycapillary wedge pressure was 17 mmHg and his mean aortic gradient wasdocumented as 22 mmHg. The most recent chest x-ray shows no left ventricularfailure and a BNP of 2100 is noted. The most recent creatinine is 1.0 withmg/dL, with a normal EGFR.PLAN AND RECOMMENDATIONS:Mr Vargas presents with limiting angina and severe, calcified disease ofan ungrafted right coronary artery. He does have some degree of aorticstenosis although its exact severity is not entirely clear and his predominantsymptom is angina. Against a background of 2 previous sternotomies it may bethat an initial strategy of PCI to the right coronary artery followed by apossible transcatheter valve depending on his symptomatic progress may bepreferable.We will proceed with a repeat echocardiogram here followed by surgicalevaluation. If the surgeons agree that a transcatheter strategy is preferable,depending on his echocardiogram results, we will likely proceed withpercutaneous intervention to the right coronary artery as an initial treatmentstep.Yours sincerely,RONALD Aj PHYSICIAN: Tiffanie Cancino, MDDATE OF SERVICE: November 03, 2017TIME OF SERVICE: 3:23 PMReferring Provider: SELF [[id number]]Allergies As of Date: 11/03/2017(No Known Allergies)Date Reviewed: 11/03/2017Reviewed by: Tonja Lee) SHANTELL Watkins - Fully AssessedReason for Visit: Shortness of Breath [227] Cmt: treatment optionsPrimary Visit Diagnosis:Nonrheumatic aortic valve stenosis [I35.0] Other Visit Diagnoses:Atherosclerosis of [place] coronary artery of [place] heart, angina presence unspecified [I25.10] Coronary artery disease involving [place] coronary artery of [place] heart with angina pectoris with documented spasm (HCC) [I25.111]Order(s):CARDIAC ELECTRIC DEICER ASSEMBLER ORDER [[id number]] Order #: [id number]: 1Prescriptions as of 11/03/2017 Sig: ISOSORBIDE MONONITRATE ER 60 * Take 30 mg by mouth once angeles* METOPROLOL SUCCINATE ER 50 MG* Take 25 mg by mouth once angeles* ASPIRIN 81 MG TABLET,DELAYED * Take 81 mg by mouth once angeles* GARLIC 1,000 MG CAPSULE Take 1 capsule by mouth once * OMEGA 7-HYS-EDT-FISH OIL 1,20* Take by mouth twice daily. CLOPIDOGREL 75 MG TABLET Take 75 mg by mouth once angeles* MINERALS ORAL Take by mouth once daily. Barbara* OTC PRODUCT 1 tablet three times daily. N*Problem List As Of Date: 11/03/2017(None)Letter Text Tiffanie Cancino M.D.[facility] Department ofCardiovascular MedicineSection of Interventional and Clinical CardiologyApril 2017Mr. Joseluis Vargas[address] [facility] [id number]: Jayna Vargas NO: [id number] OF SERVICE: 11/03/2017Dear Mr. Vargas:The results of your lab work, along with your history and physical exam werereviewed. The following plans and goals have been established to optimizecontrol of your risk factors and reduce your risk of future heart disease.This information has been passed along to your primary care provider, Gil Paris MD. Should you have any questions, please do not hesitate to contactour clinic at [phone].Sincerely,Jose Cancino M.D.(Signed electronically to expedite mailing)[facility] Department of Cardiovascular MedicineSECTION OF INTERVENTIONAL CARDIOLOGYOUTPATIENT VISIT DATE November 03, 2017OUTPATIENT VISIT TYPENEWPRIMARY CARE PHYSICIAN:Gil Gonzalez MD ([facility])[address] [place] [id number]: [phone]: [phone] PHYSICIAN:SELFCHIEF COMPLAINT:Coronary Artery DiseaseAortic StenosisHISTORY OF PRESENT ILLNESS:Mr. Vargas is a 77 year old male from [place], [place] who presents todayfor evaluation of coronary artery disease and .PMH consists of:- CAD s/p CABG 1995 GRAJEDA-LAD ([facility] ), redo CABG (2001 [facility])- aortic stenosis- mitral valve regurgitation- HLD,- HTN.He was doing well since his his last CABG in 2001. In the last 6 months hehas had symptoms of SOB and chest pain which prompted a stress testevaluation.He has been statin intolerant int he past with symptoms ranging from voicechanges, kidney dysfunction and muscle aches in his shoulders. He tells mehe has tried multiple medications with his prior accounting manager cpa withoutsuccess. He has not been on statin for this period.Given these symtpoms, Stress test in July 2017 that could not necessarilyrule out MA ischemia. Heart cath as below.He had a stress test in July 2017 that could not rule out ischemiaprompting a LHC as belowTTE Jul 30 showed EF 45%, mildly enlarged left atrium, moderate MR, moderateto severe diffuse thickening of aortic valve. Aortic mean 31, peak gradientof 18, AUSTIN 1.5, aortic vti 73.5Left Heart Catheterization @ [facility] 09/12/2017 (load into syngo)RHC:Thermal CO 2.71, Thermal CI 1.38RA 4, RV 44/2, PA 44/14 (25), PCWP 17PVR 236, SVR 2686AVA 0.67, LILLY 0.34, AV mean gradient 22. 5LM 95%LAD 100%LCX 99%RCA proximal moderate, mid 85% eccentric, distal 85% eccentricGRAFTSLIMA - LAD - patentSVG - OM1 - patentSVG-rPDA - occludedCurrent SymptomsShortness of breath and chest pain with exertion. Patient states somelightheadedness when bending.He feels like the last 6 months he has noticed the SOB and chest pain. Hedescribes the pain as a burning sensation. He has to stop if he is walkingon an incline. Stops for a few minutes then resolves on its own.Current Cardiac Medications- aspirin 81 mg; metoprolol tartrate 25 mb BID, isosorbide mononitrate 30 mgdaily, plavix 75 mg daily- Reports adherence to medications without difficulty.Cardiac Review of Systems:Chest Pain: Yes Diaphoresis: NoShortness of breath Yes Dyspnea on Exertion YesLightheadedness: Yes Nausea/vomiting: NoPalpitations: No Syncope/Presyncope: NoOrthopnea: No PND NoClaudication: No Leg Swelling NoCardiac Risk Factors:Smoking: Nonsmoker (Never Smoked)Diabetes: noHyperlipidemia: yes -- intolerant to statinHypertension: yesActivity- Most active thing they are able to do is walking up an incline. 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 estimator and very activePAST MEDICAL HISTORYDiagnosis Date- Aortic stenosis- CAD (coronary artery disease)- Hyperlipidemia intol of statins- S/P angioplasty with stent- S/P CABG (coronary artery bypass graft) twice 1996x 1 2002 x3PAST SURGICAL HISTORYProcedure Laterality Date- CABG (1) VEIN GRAFT AND ARTERIAL GRAFT 1996- CABG (3) VEIN GRAFTS AND ARTERIAL GRAFT(S) 2001- HERNIA REPAIR HXSOCIAL HISTORYSocial HistorySubstance Use Topics- Smoking status: Never Smoker- Smokeless tobacco: Never Used- Alcohol use NoFAMILY HISTORYProblem Relation Age of Onset- CHF [OTHER] Mother age 77- Myocardial infarction [OTHER] Father 73 - Coronary stent [OTHER] Brother 66 of leukemiaALLERGIES:ALLERGIES No Known AllergiesMEDICATIONS:isosor bide mononitrate ER (IMDUR) 60 mg 24 hr tablet Take 30 mg by mouthonce daily.metoprolol succinate ER (TOPROL XL) 50 mg 24 hr tablet Take 25 mg by mouthonce daily.aspirin, enteric coated (ASPIRIN, ENTERIC COATED) 81 mg EC tablet Take 81mg by mouth once daily.Garlic 1,000 mg cap Take 1 capsule by mouth once daily.Jiinj-0-FDH-EPA-Fish Oil 1,200 (144-216) mg cap Take by mouth twice daily.clopidogrel (PLAVIX) 75 mg tablet Take 75 mg by mouth once daily.MINERALS ORAL Take by mouth once daily. Chelated minerals liquidOTC PRODUCT 1 tablet three times daily. Natural artery careREVIEW OF SYSTEMS:12 point ROS negative as per HPIPHYSICAL EXAMINATION:BP 131/64 Pulse 60 Ht 5' 6 (1.68m) Wt 188 lb 8 oz (85.5kg) SpO2 98% BMI 30.44 kg/(m2).General Appearance: Well developed and no acute distressHEENT: JVP at midlevel with HOB at 90 degreesLungs: clear to auscultation bilaterallyHeart: Regular rate AND rhythm, crescendo murmurs, rubsAbdomen: Soft, Non-tender and Non-distended, no flank edemaSkin: dry, no edema, warm,Extremities: No deformitiesNeurologic/Psych iatric: alert, oriented and no gross focal neurologicdeficitsCARDIOVAS CULAR MEDICINE TESTING:Electrocardiogram 11/03/2017NSR with 1st degree AV blockEchocardiogram @ OSHEF 45%2+ MR1+ PILeft Heart Catheterization @ OSH 09/12/2017C:Thermal CO 2.71, Thermal CI 1.38RA 4, RV 44/2, PA 44/14 (25), PCWP 17PVR 236, SVR 2686AVA 0.67, LILLY 0.34, AV mean gradient 22. 5LM 95%LAD 100%LCX 99%RCA proximal moderate, mid 85% eccentric, distal 85% eccentricGRAFTSLIMA - LAD - patentSVG - OM1 - patentSVG-rPDA - occludedExercise SPECT Stress 08/03/2017 @ [place] depression in II, III, aVF, V5-T7Lgczegazbh perfusion changes concerning for physiologic apical thinning,however, equivocal apical myocardial ischemia cannot be excluded.IMPRESSION:Dyspnea and Typical Chest PainHe has unrevascularized RCA and an occluded SVG to RCA that is the likelyculprit for at least part of his picture. HIs aortic valve is certrainlystenotic but it is not certain if it is currently within the severe range ofstenosis. We will obtain further echo imaging and evaluation prior to get rubén comprehensive evaluation of his dyspnea that has started in the last 6months.More specifically, His current symptoms include: yes angina, nopresyncope/syncope, no heart failure, And primarily Shortness of breath.The TTE is pendingThe ECG shows NSR with 1st degree AV blockLeft Heart Catheterization @ OSH 09/12/2017C:Thermal CO 2.71, Thermal CI 1.38RA 4, RV 44/2, PA 44/14 (25), PCWP 17PVR 236, SVR 2686AVA 0.67, LILLY 0.34, AV mean gradient 22. 5LM 95%LAD 100%LCX 99%RCA proximal moderate, mid 85% eccentric, distal 85% eccentricGRAFTSLIMA - LAD - patentSVG - OM1 - patentSVG-rPDA - occludedPLAN- Will be reviewed by the structural intervention and surgical teams forfinal recommendations.- continue medical therapy for now- all questions answered- Plan discussed with Staff Water/Wastewater Project Engineer, Dr Tiffanie Cancino. Note andrecommendations will be finalized upon his final attestation/recommendations .---------Wilton Charlton MD MPHCardiovascular Medicine Fellow, PGY - 5CTriHealth McCullough-[facility] - [facility] Heart and [email or web address] [id number] STAFF PHYSICIAN NOTE OF PERSONAL INVOLVEMENT IN CAREMr Vargas is a functional and independent 77 year-old gentleman withmoderate comorbidity, including 2 previous sternotomies for coronary arterybypass surgery with a reoperation in 2001, and hypertension.Mr Vargas presents with a six-month history of progressive exertionalchest pain and shortness of breath. 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 When he was a symptomatically 12months ago, over the last 6 months he has noticed the gradual onset ofcentral chest pain and shortness of breath on moderate physical activity..There is no history ofsyncope, palpitations, or more prominent symptoms ofheart failure with no orthopnea, PND or edema. There is no history ofpulmonary-type symptoms with no cough, sputum, hemoptysis, wheeze, dysphonia,or unintentional weight loss; nor GI symptoms with no dysphagia, loss ofappetite, change in bowel habit or symptoms of bleeding.I examined Mr Vargas today and found that he looked well. His bloodpressure was 131/64 mmHg and heart rate is 60 per minute. There is anejection systolic murmur at the base of the heart with a clearly audiblesecond heart sound with no signs of heart failure with no jugular venousdistension, a clear chest to auscultation and no pedal edema. The state ofthe dentition is good, the abdomen is soft and non-tender and otherexamination is non-contributory.Echocardio graphy shows severe calcification and restriction of all 3 leafletsof trileaflet valve. The lateral aspect of the right coronary cusp howeveropens widely which is somewhat receding on the parasternal long axis. Hisnon-and left coronary leaflets are severely restricted however. He has apeak velocity through the outflow tract of 2.6 m/s with peak and meangradients of 27 and 17 mmHg respectively and the dimensionless index of 0.4in the setting of probably moderate LV dysfunction with an ejection fractionin the order of 40-45% and no other significant valve disease. A gatedcardiac CTA, although limited significantly by artifact, has shown mildcalcification and moderate to severe restriction of a tricuspid valve. Hisaortic annulus measures between 530 and 550 mm? with sinuses of Valsalva ofonly 29 mm and an STJ of only 26 mm. Coronary angiography showed no obvioustargets for PCI in the [place] left circulation with a patent GRAJEDA to his LADand a patent vein graft to the lateral wall. The vein graft to the rightcoronary artery was occluded with severe, heavily calcified diffuse diseaseof the [place] right coronary artery that would be amenable to complex PCI.atcatheterization, his pulmonary capillary wedge pressure was 17 mmHg and hismean aortic gradient was documented as 22 mmHg. The most recent chest x-rayshows no left ventricular failure and a BNP of 2100 is noted. The mostrecent creatinine is 1.0 with mg/dL, with a normal EGFR.PLAN AND RECOMMENDATIONS:Mr Vargas presents with limiting angina and severe, calcified disease ofan ungrafted right coronary artery. He does have some degree of aorticstenosis although its exact severity is not entirely clear and hispredominant symptom is angina. Against a background of 2 previoussternotomies it may be that an initial strategy of PCI to the right coronaryartery followed by a possible transcatheter valve depending on hissymptomatic progress may be preferable.We will proceed with a repeat echocardiogram here followed by surgicalevaluation. If the surgeons agree that a transcatheter strategy ispreferable, depending on his echocardiogram results, we will likely proceedwith percutaneous intervention to the right coronary artery as an initialtreatment step.Yours sincerely,RONALD Aj PHYSICIAN: KAM AjATE OF SERVICE: November 03, 2017TIME OF SERVICE: 3:23 PMEncounter Number: [id number] Status:Closed by TIFFANIE CANCINO on 11/23/17 Normal [facility] CTA C/A/P (GATED) W IVCONon 11-03-2017 CTA C/A/P (GATED) W IVCON * * *Final Report* * *DATE OF EXAM: Nov 03 2017 1:13PM JQC 0133 - CTA C/A/P (GATED) W IVCON / REASON: multiple diagnoses * * * * Physician Interpretation * * * * CTA chest, abdomen and pelvis dated 11/03/2017 1:13 PM.Comparison: None available.Indication: 77-year-old male with aortic stenosis, being considered for potential transcatheter aortic valve replacement. There is a need to define aortic and aortic valve anatomy.Technique: Multi-detector CT technology was employed ([employer] Somatom Force dual source scanner). A retrospectively gated acquisition was performed of the chest limited to the aortic valve for dynamic 4D evaluation following intravenous contrast. Subsequently, spiral imaging was high-pitch acquisition was performed of the chest, abdomen and pelvis. A low-osmolar contrast agent was used (80 cc of Omnipaque 350).CT Dose-Length Product (DLP): 1455 mGycmCT Dose Reduction Employed: YesFor optimization of anatomic evaluation, multiplanar reconstruction, maximum intensity projections, and advanced 3-D off-line postprocessing were performed on a dedicated stand-alone workstation under the direct supervision of the interpreting physician.RESULT:Potential study limitations: Motion artifact.CHEST:The chest wall is notable for prior median sternotomy with sternal wire in situ. Shotty mediastinal lymphadenopathy. Calcified right hilar lymph nodes. The pericardium appears unremarkable. The central pulmonary arteries are normal in caliber.Lung windows reveal bilateral pulmonary nodules. For instance, there is a 10 mm nodule with a focal spot of calcification within the nodule, along the minor fissure in the right lung, possibly a partially calcified intrafissural lymph node; 5 mm non-calcified pleural-based nodule in the left lower lobe (Series 6, Image 81); 5 mm non-calcified subpleural nodule in the right middle lobe (Series 6, Image 76); 2 mm peripheral non-calcified nodule in the left upper lobe (Series 6, Image 24); 2 mm non-calcified nodule in the left upper lobe (Series 6, Image 26); 2 mm nodule in the right upper lobe (Series 6, Image 28); Multiple small calcified nodules consistent with remote granulomatous disease. There is no significant pulmonary parenchymal infiltrate, or pleural effusion.The cardiac chambers demonstrate normal atrioventricular and ventriculoarterial concordance, and systemic and pulmonary venous return. Mild left atrial enlargement. The coronary arteries have normal origins and courses. There are moderate diffuse coronary calcifications identified, though this study was not optimized for coronary artery evaluation.Evidence of CABG. Assessment of graft patency is limited in the current non-dedicated study.- GRAJEDA graft to the LAD. The graft descends to the left of the sternum.- Aorto-coronary graft to the LAD/diagonal system. The graft originates from the anterior surface of the mid-ascending thoracic aorta. Minimal distance to the sternum is 17 mm.- An additional stump is imaged in the mid ascending aorta, likely related to an occluded graft to the right coronary system.VASCULAR WITH ADVANCED 3-D OFF-LINE POSTPROCESSING:Dedicated 4D dynamic imaging of the aortic root demonstrates a thickened tricuspid aortic valve with a relatively fixed non coronary cusp, and moderate aortic valve cusp calcifications. Cusp size and root anatomy are symmetric. Overall, moderately reduced aortic valve opening. Aortic valve orifice area = 1.2 cm2. The aortic annulus measures 3.0 x 2.2 cm; cross-sectional area = 4.8 cm2; circumference = 8.0 cm.The thoracic aorta is normal in course and caliber. There is no acute aortic pathology, such as dissection, intramural hematoma, or contained rupture. The arch vessel branching pattern is normal, and the imaged arch branch vessels are patent proximally. Trivial calcification in the mid ascending aorta, adjacent to the main pulmonary artery. Moderate, partially calcified atherosclerotic plaque in the aortic arch and descending thoracic aorta. In the distal descending thoracic aorta, there is severe protruding plaque posterolaterally (measuring 7 mm).The abdominal aorta is torturous with moderate, partially calcified atherosclerotic plaque throughout, and is notable for an infrarenal aneurysm.Aquarist dimensions of the thoracoabdominal aorta are as follows:3.1 cm at the sinuses of Valsalva (the sinotubular junction is preserved; moderate calcification at the sinotubular junction)3.5 cm at the mid ascending aorta3.3 cm at the distal ascending aorta3.0 cm at the mid transverse arch2.8 cm at the proximal descending thoracic aorta2.5 cm at the diaphragmatic hiatus.2.5 cm at the supramesenteric segment2.2 cm at the mesenteric segment2.0 cm at the renal segment3.4 x 3.2 cm at the infrarenal aneurysm2.3 cm at the aortic bifurcationRight common iliac artery: 1.2 cmLeft common iliac artery: 1.6 cmSuspected mild to moderate stenosis at the ostium of the celiac artery, and mild stenosis at the ostium of the SMA, due to non-calcified plaque. There are single renal arteries bilaterally, though moderate calcification near the ostium of the right renal artery precludes accurate luminal assessment. Heavy calcification near the ostium of the LUDY precludes accurate luminal assessment.The pelvic arteries are tortuous with moderate atheromatous plaque and calcification involving the common iliac and internal iliac arteries bilaterally. The left common iliac artery is ectatic. The common femoral arteries are normal in course and caliber, with mild atherosclerotic plaque. The minimal luminal caliber throughout = 8 mm.PROXIMITY OF THE CARDIOVASCULAR STRUCTURES TO THE STERNUM:The left brachiocephalic vein lies in close proximity to the posterior aspect of the manubrium at 5 mm.The right ventricular myocardium lies 4 mm posterior to the lower sternum.Proximity of the CABG grafts to the sternum as described.The remainder of the cardiac and vascular structures lie a safe distance from the sternum.ABDOMEN:The liver, gallbladder, spleen and pancreas appear unremarkable. Mild non-specific thickening of the adrenal glands. Both kidneys are normal in size, shape and density, aside from a 2.1 cm simple appearing cystic lesion in the left kidney. There is no abnormal mass or hydronephrosis.PELVIS:There is no significant retroperitoneal adenopathy. No free fluid or free air within the abdomen or pelvis.The bowel appears unremarkable on this non-GI contrast examination, aside from colonic diverticulosis. The urinary bladder appears unremarkable. Punctate calcification within an enlarged prostate gland. There are scattered phleboliths within the deep pelvis.BONES:Multilevel degenerative changes in the thoracolumbar spine.IMPRESSION:1. Thickened tricuspid aortic valve with a relatively fixed non coronary cusp, and moderate aortic valve cusp calcifications. Overall, moderately reduced aortic valve opening. Aortic valve orifice area = 1.2 cm2. The aortic annulus measures 3.0 x 2.2 cm; cross-sectional area = 4.8 cm2; circumference = 8.0 cm.2. The thoracic aorta is normal in course and caliber. Moderate, partially calcified atherosclerotic plaque in the aortic arch and descending thoracic aorta. In the distal descending thoracic aorta, there is severe protruding plaque posterolaterally (measuring 7 mm).3. The abdominal aorta is torturous with moderate, partially calcified atherosclerotic plaque throughout, and is notable for an infrarenal aneurysm (3.4 x 3.2 cm).4. The pelvic arteries are tortuous with moderate atheromatous plaque and calcification involving the common iliac and internal iliac arteries bilaterally. The left common iliac artery is ectatic (1.6 cm). The common femoral arteries are normal in course and caliber, with mild atherosclerotic plaque. The minimal luminal caliber throughout = 8 mm.5. Suspected mild to moderate stenosis at the ostium of the celiac artery, and mild stenosis at the ostium of the SMA, due to non-calcified plaque.6. Proximity of the cardiovascular structures, including CABG grafts, to the sternum as described.7. Bilateral pulmonary nodules as described. Incidental Finding: Follow-up for these incidentally detected lung nodules with chest CT exam is recommended in 3 to 6 months.Plumber: JOSE ARMANDO Transcribe Date/Time: Nov 03 2017 1:23PDictated by : Jordi JACKSON examination was interpreted and the report reviewed and electronically signed by: GABRIEL POWELL DO on Nov 03 2017 3:18PM [id number] Normal [facility] Comp Metabolic Panelon 11-03 Albumin mass conc 4.1 g/dL Normal 3.9-4.9 [facility] Comment on above: Performed By: #### C BCDIF, PT, CMP, NTBNP ####[address] [phone] ALP enzyme act/vol 84 U/L Normal 36-108 [facility] Comment on above: Performed By: #### C BCDIF, PT, CMP, NTBNP ####[address] [phone] ALT enzyme act/vol 16 U/L Normal 10-54 [facility] Comment on above: Performed By: #### C BCDIF, PT, CMP, NTBNP ####[address] [phone] Anion gap 3 molar conc 12 mmol/L Normal 9-18 [facility] Comment on above: Performed By: #### C BCDIF, PT, CMP, NTBNP ####[address] AveCSamantha Ville [phone] AST enzyme act/vol 20 U/L Normal 14-40 [facility] Comment on above: Performed By: #### C BCDIF, PT, CMP, NTBNP ####[address] [place] [phone] Bilirubin mass conc 0.8 mg/dL Normal 0.2-1.3 [facility] Comment on above: Performed By: #### C BCDIF, PT, CMP, NTBNP ####[address] [place] [phone] Calcium mass conc 9.3 mg/dL Normal 8.5-10.2 [facility] Comment on above: Performed By: #### C BCDIF, PT, CMP, NTBNP ####[place] [phone] Chloride molar conc 102 mmol/L Normal 97-105 [facility] Comment on above: Performed By: #### C BCDIF, PT, CMP, NTBNP ####[place] [phone] CO2 molar conc 27 mmol/L Normal 22-30 [facility] Comment on above: Performed By: #### C BCDIF, PT, CMP, NTBNP ####[place] [address] [place] [phone] Creatinine mass conc 0.98 mg/dL Normal 0.73-1.22 [facility] Comment on above: Performed By: #### C BCDIF, PT, CMP, NTBNP ####[place] [phone] eGFR- Amer. >60 Normal [facility] Comment on above: Performed By: #### C BCDIF, PT, CMP, NTBNP ####[address]C[place], [place] [phone] GFR/1.73 sq M predicted among non-blacks MDRD vol rate/area (S/P/Bld) mL/min/{1.73_m2} Normal [facility] Comment on above: Result Comment: eGFR (Estimated GFR) Units of measure: mL/min/1.73 meters squaredeGFR is derived from the reexpressed MDRD Study equation using the following parameters: serum creatinine, age, gender and race. The creatinine assay has been calibrated to be traceable to IDMS.An eGFR <60 mL/min/1.73m2 for >3 months is consistent with chronic kidney disease. Refer to KDOQI guidelines for clinical interpretation.In patients with unstable renal function, e.g. those with acute kidney injury, the eGFR may not accurately reflect actual GFR. Performed By: #### C BCDIF, PT, CMP, NTBNP ####[facility] [place], [place] [phone] Glucose mass conc 88 mg/dL Normal 74-99 [facility] Comment on above: Result Comment: The [place] Diabetes Association (ADA) provides guidance for cutoff values for fasting glucose and random glucose. The ADA defines fasting as no caloric intake for at least 8 hours. Fasting plasma glucose results between 100 to 125 mg/dL indicate increased risk for diabetes (prediabetes).Fasting plasma glucose results greater than or equal to 126 mg/dL meet the criteria for diagnosis of diabetes. In the absence of unequivocal hyperglycemia, results should be confirmed by repeat testing. In a patient with classic symptoms of hyperglycemia or hyperglycemic crisis, random plasma glucose results greater than or equal to 200 mg/dL meet the criteria for diagnosis of diabetes.Reference: Standards of Medical Care in Diabetes 2016, [place] Diabetes Association. Diabetes Care. 2016.39(Suppl 1). Performed By: #### C BCDIF, PT, CMP, NTBNP ####[facility] [place], [place] [phone] Potassium molar conc 4.5 mmol/L Normal 3.7-5.1 [facility] Comment on above: Performed By: #### C BCDIF, PT, CMP, NTBNP ####[facility] [place], [place] [phone] Protein mass conc 7.1 g/dL Normal 6.3-8.0 [facility] Comment on above: Performed By: #### C BCDIF, PT, CMP, NTBNP ####[facility] [place], [place] [phone] Sodium molar conc 141 mmol/L Normal 136-144 [facility] Comment on above: Performed By: #### C BCDIF, PT, CMP, NTBNP ####[place] [id number] [place], [place] [phone] Urea nitrogen mass conc 20 mg/dL Normal 9-24 [facility] Comment on above: Performed By: #### C BCDIF, PT, CMP, NTBNP ####[facility] [place], [place] [phone] NT Pro BNPon 11-03-2017 Protein mass conc 2191 pg/mL High <450 [facility] Comment on above: Performed By: #### C BCDIF, PT, CMP, NTBNP ####[place] [id number] [place], [place] [phone] PROGRESSon 11-03-2017 Protein mass conc HNO ID: [id number] thor: Tiffanie Velazquezervice: (none)Author Type: PhysicianType: Progress NotesFiled: 11/23/2017 6:37 PMNote Text:[facility] V[facility] InstituteRobert and Ashley Lay Department of Cardiovascular MedicineSECTION OF INTERVENTIONAL CARDIOLOGYOUTPATIENT VISIT DATE November 03, 2017OUTPATIENT VISIT TYPENEWPRIMARY CARE PHYSICIAN:Gil Gonzalez MD ([facility])[address] [place] [address]Xuwgu: [phone]: [phone] PHYSICIAN:SELFCHIEF COMPLAINT:Coronary Artery DiseaseAortic StenosisHISTORY OF PRESENT ILLNESS:Mr. Vargas is a 77 year old male from [place], [place] who presentstoday for evaluation of coronary artery disease and .PMH consists of:- CAD s/p CABG 1995 GRAJEDA-LAD ([facility] ), redo CABG (2001 [facility])- aortic stenosis- mitral valve regurgitation- HLD,- HTN.He was doing well since his his last CABG in 2001. In the last 6 monthshe has had symptoms of SOB and chest pain which prompted a stress testevaluation.He has been statin intolerant int he past with symptoms ranging from voicechanges, kidney dysfunction and muscle aches in his shoulders. He tellsme he has tried multiple medications with his prior accounting manager cpa withoutsuccess. He has not been on statin for this period.Given these symtpoms, Stress test in July 2017 that could notnecessarily rule out MA ischemia. Heart cath as below.He had a stress test in July 2017 that could not rule out ischemiaprompting a LHC as belowTTE Jul 30 showed EF 45%, mildly enlarged left atrium, moderate MR,moderate to severe diffuse thickening of aortic valve. Aortic mean 31,peak gradient of 18, AUSTIN 1.5, aortic vti 73.5Left Heart Catheterization @ [facility] 09/12/2017 (load into syngo)RHC:Thermal CO 2.71, Thermal CI 1.38RA 4, RV 44/2, PA 44/14 (25), PCWP 17PVR 236, SVR 2686AVA 0.67, LILLY 0.34, AV mean gradient 22. 5LM 95%LAD 100%LCX 99%RCA proximal moderate, mid 85% eccentric, distal 85% eccentricGRAFTSLIMA - LAD - patentSVG - OM1 - patentSVG-rPDA - occludedCurrent SymptomsShortness of breath and chest pain with exertion. Patient states somelightheadedness when bending.He feels like the last 6 months he has noticed the SOB and chest pain.He describes the pain as a burning sensation. He has to stop if he iswalking on an incline. Stops for a few minutes then resolves on its own.Current Cardiac Medications- aspirin 81 mg; metoprolol tartrate 25 mb BID, isosorbide mononitrate 30mg daily, plavix 75 mg daily- Reports adherence to medications without difficulty.Cardiac Review of Systems:Chest Pain: Yes Diaphoresis: NoShortness of breath Yes Dyspnea on Exertion YesLightheadedness: Yes Nausea/vomiting: NoPalpitations: No Syncope/Presyncope: NoOrthopnea: No PND NoClaudication: No Leg Swelling NoCardiac Risk Factors:? Smoking: Nonsmoker (Never Smoked)? Diabetes: no? Hyperlipidemia: yes -- intolerant to statin? 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 and very activePAST MEDICAL HISTORYDiagnosis Date- Aortic stenosis- CAD (coronary artery disease)- Hyperlipidemia intol of statins- S/P angioplasty with stent- S/P CABG (coronary artery bypass graft) twice 1996x 1 2002 x3PAST SURGICAL HISTORYProcedure Laterality Date- CABG (1) VEIN GRAFT AND ARTERIAL GRAFT 1995- CABG (3) VEIN GRAFTS AND ARTERIAL GRAFT(S) 2001- HERNIA REPAIR HXSOCIAL HISTORYSocial HistorySubstance Use Topics- Smoking status: Never Smoker- Smokeless tobacco: Never Used- Alcohol use NoFAMILY HISTORYProblem Relation Age of Onset- CHF [OTHER] Mother age 77- Myocardial infarction [OTHER] Father 73 - Coronary stent [OTHER] Brother 66 of leukemiaALLERGIES:ALLERGIES No Known AllergiesMEDICATIONS:isosor bide mononitrate ER (IMDUR) 60 mg 24 hr tablet Take 30 mg by mouthonce daily.metoprolol succinate ER (TOPROL XL) 50 mg 24 hr tablet Take 25 mg by mouthonce daily.aspirin, enteric coated (ASPIRIN, ENTERIC COATED) 81 mg EC tablet Take 81mg by mouth once daily.Garlic 1,000 mg cap Take 1 capsule by mouth once daily.Fxwwb-4-AGK-EPA-Fish Oil 1,200 (144-216) mg cap Take by mouth twice daily.clopidogrel (PLAVIX) 75 mg tablet Take 75 mg by mouth once daily.MINERALS ORAL Take by mouth once daily. Chelated minerals liquidOTC PRODUCT 1 tablet three times daily. Natural artery careREVIEW OF SYSTEMS:12 point ROS negative as per HPIPHYSICAL EXAMINATION:BP 131/64 Pulse 60 Ht 5' 6 (1.68m) Wt 188 lb 8 oz (85.5kg) IcX239% BMI 30.44 kg/(m2).General Appearance: Well developed and no acute distressHEENT: JVP at midlevel with HOB at 90 degreesLungs: clear to auscultation bilaterallyHeart: Regular rate AND rhythm, crescendo murmurs, rubsAbdomen: Soft, Non-tender and Non-distended, no flank edemaSkin: dry, no edema, warm,Extremities: No deformitiesNeurologic/Psych iatric: alert, oriented and no gross focal neurologicdeficitsCARDIOVAS CULAR MEDICINE TESTING:Electrocardiogram 11/03/2017NSR with 1st degree AV blockEchocardiogram @ OSHEF 45%2+ MR1+ PILeft Heart Catheterization @ [facility]SH 09/12/2017RHC:Thermal CO 2.71, Thermal CI 1.38RA 4, RV 44/2, PA 44/14 (25), PCWP 17PVR 236, SVR 2686AVA 0.67, LILLY 0.34, AV mean gradient 22. 5LM 95%LAD 100%LCX 99%RCA proximal moderate, mid 85% eccentric, distal 85% eccentricGRAFTSLIMA - LAD - patentSVG - OM1 - patentSVG-rPDA - occludedExercise SPECT Stress 08/03/2017 @ [place] depression in II, III, aVF, V5-I6Bwbunhdikn perfusion changes concerning for physiologic apical thinning,however, equivocal apical myocardial ischemia cannot be excluded.IMPRESSION:Dyspnea and Typical Chest PainHe has unrevascularized RCA and an occluded SVG to RCA that is the likelyculprit for at least part of his picture. HIs aortic valve is certrainlystenotic but it is not certain if it is currently within the severe rangeof stenosis. We will obtain further echo imaging and evaluation prior toget a more comprehensive evaluation of his dyspnea that has started in thelast 6 months.More specifically, His current symptoms include: yes angina, nopresyncope/syncope, no heart failure, And primarily Shortness of breath.The TTE is pendingThe ECG shows NSR with 1st degree AV blockLeft Heart Catheterization @ [facility]SH 09/12/2017RHC:Thermal CO 2.71, Thermal CI 1.38RA 4, RV 44/2, PA 44/14 (25), PCWP 17PVR 236, SVR 2686AVA 0.67, LILLY 0.34, AV mean gradient 22. 5LM 95%LAD 100%LCX 99%RCA proximal moderate, mid 85% eccentric, distal 85% eccentricGRAFTSLIMA - LAD - patentSVG - OM1 - patentSVG-rPDA - occludedPLAN- Will be reviewed by the structural intervention and surgical teams forfinal recommendations.- continue medical therapy for now- all questions answered- Plan discussed with Staff Water/Wastewater Project Engineer, Dr Tiffanie Cancino. Note andrecommendations will be finalized upon his finalattestation/recommenda tions.---------Wilton Charlton MD MPHCardiovascular Medicine Fellow, PGY - 5CTriHealth McCullough-[facility] - [facility] and [facility] and [email or web address] [id number] STAFF PHYSICIAN NOTE OF PERSONAL INVOLVEMENT IN CAREMr Vargas is a functional and independent 77 year-old gentleman withmoderate comorbidity, including 2 previous sternotomies for coronaryartery bypass surgery with a reoperation in 2001, and hypertension.Mr Vargas presents with a six-month history of progressive exertionalchest pain and shortness of breath. 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 When he was a symptomatically 12months ago, over the last 6 months he has noticed the gradual onset ofcentral chest pain and shortness of breath on moderate physical activity..There is no history ofsyncope, palpitations, or more prominent symptoms ofheart failure with no orthopnea, PND or edema. There is no history ofpulmonary-type symptoms with no cough, sputum, hemoptysis, wheeze,dysphonia, or unintentional weight loss; nor GI symptoms with nodysphagia, loss of appetite, change in bowel habit or symptoms ofbleeding.I examined Mr Vargas today and found that he looked well. His bloodpressure was 131/64 mmHg and heart rate is 60 per minute. There is anejection systolic murmur at the base of the heart with a clearly audiblesecond heart sound with no signs of heart failure with no jugular venousdistension, a clear chest to auscultation and no pedal edema. The state ofthe dentition is good, the abdomen is soft and non-tender and otherexamination is non-contributory.Echocardio graphy shows severe calcification and restriction of all 3leaflets of trileaflet valve. The lateral aspect of the right coronarycusp however opens widely which is somewhat receding on the parasternallong axis. His non-and left coronary leaflets are severely restrictedhowever. He has a peak velocity through the outflow tract of 2.6 m/s withpeak and mean gradients of 27 and 17 mmHg respectively and thedimensionless index of 0.4 in the setting of probably moderate LVdysfunction with an ejection fraction in the order of 40-45% and no othersignificant valve disease. A gated cardiac CTA, although limitedsignificantly by artifact, has shown mild calcification and moderate tosevere restriction of a tricuspid valve. His aortic annulus measuresbetween 530 and 550 mm? with sinuses of Valsalva of only 29 mm and an STJof only 26 mm. Coronary angiography showed no obvious targets for PCI inthe [place] left circulation with a patent GRAJEDA to his LAD and a patentvein graft to the lateral wall. 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 The most recent chestx-ray shows no left ventricular failure and a BNP of 2100 is noted. Themost recent creatinine is 1.0 with mg/dL, with a normal EGFR.PLAN AND RECOMMENDATIONS:Mr Vargas presents with limiting angina and severe, calcified diseaseof an ungrafted right coronary artery. He does have some degree of aorticstenosis although its exact severity is not entirely clear and hispredominant symptom is angina. Against a background of 2 previoussternotomies it may be that an initial strategy of PCI to the rightcoronary artery followed by a possible transcatheter valve depending onhis symptomatic progress may be preferable.We will proceed with a repeat echocardiogram here followed by surgicalevaluation. If the surgeons agree that a transcatheter strategy ispreferable, depending on his echocardiogram results, we will likelyproceed with percutaneous intervention to the right coronary artery as aninitial treatment step.Yours sincerely,RONALD Aj PHYSICIAN: KAM AjATE OF SERVICE: November 03, 2017TIME OF SERVICE: 3:23 PM Normal [facility] Protein mass conc HNO ID: [id number] thor: Tamika Leon CtService: (none)Author Type: (none)Type: Progress NotesFiled: 11/03/2017 1:19 PMNote Text: Radiology Service Progress NotePATIENT NAME: Joseluis VargasMRN: [id number] OF SERVICE: November 03, 2017TIME: 1:11 PMPATIENT IDENTITY VERIFICATION COMPLETED USING TWO (2) METHODS: Patientconfirmed name verbally and ID band matches..PATIENT GENDER DATA: MalePATIENT RELEVANT IMPLANT DATA REVIEWED: YesRADIOLOGY DEPARTMENT: CT; Exam(s) Completed: CardiacPERIPHERAL IV DATA: Site assessment: Clean,Dry and Intact, Sitedisposition Left in for next appointmentSIGNED BY: Tamika Leon CtMar2017 1:11 PM Normal [facility] Protein mass conc HNO ID: [id number] thor: Tonja (Rn) [facility], RNService: RadiologyAuthor Type: Registered NurseType: Progress NotesFiled: 11/03/2017 12:55 PMNote Text: Radiology Service Progress NotePATIENT NAME: Joseluis VargasMRN: [id number] OF SERVICE: November 03, 2017TIME: 12:38 PMPATIENT WEIGHT: 185 LBSPATIENT IDENTITY VERIFICATION COMPLETED USING TWO (2) METHODS: Patientconfirmed name verbally and ID band matches..PATIENT GENDER DATA: MaleCONTRAST INDUCED NEPHROPATHY RISK FACTORS: Patient age > 60 yearsCREATININE:Creatinine (POCT)Date Value Ref Range Gedonb7211/03/2017 0.90 0.7 - 1.4 mg/dL Final eGFR-All Other Races (POCT)Date Value Ref Range Gtsasc3111/03/2017 >60 mL/min/1.73 m2 Final eGFR- (POCT)Date Value Ref Range Tmzwyb1411/03/2017 >60 mL/min/1.73 m2 Final P.O.C.T. RESULTS: POC done: Yes, See Lab Tab November 03, 2017TREATMENT: No Hydration needed.ALLERGIES: Reviewed and updatedCONTRAST ALLERGY: NO.IV SITE: Ambulatory: A peripheral IV was started in the Rightantecubital site with a Angio cath: 20 gauge. and A Saline lock wasinserted per protocolIV SITE APPEARANCE: Clean,Dry and IntactSIGNED BY: Tonja Watkins RNOhiohealth Grady [facility] Hospital 2017 12:38 PM Normal [facility] Protein mass conc HNO ID: [id number] thor: Torie Coles RtService: (none)Author Type: (none)Type: Progress NotesFiled: 11/03/2017 10:47 AMNote Text: Radiology Service Progress NotePATIENT NAME: Joseluis VargasMRN: [id number] OF SERVICE: November 03, 2017TIME: 10:47 AMPATIENT IDENTITY VERIFICATION COMPLETED USING TWO (2) METHODS: Patientconfirmed name verbally and Date of .PATIENT GENDER DATA: MalePATIENT RELEVANT IMPLANT DATA REVIEWED: Not ApplicableRADIOLOGY DEPARTMENT: General X-ray: Exam(s) Completed: Chest X-RayPERIPHERAL IV DATA: Not applicableSIGNED BY: Torie Coles [facility] 2017 10:47 AM Normal [facility] Protimeon 11-03-2017 INR Coag RelTime (Bld) 1.0 {INR} Normal 0.9-1.3 [facility] Comment on above: Result Comment: Татьяна min K Antagonist (VKA) Therapeutic Range: INR 2 to 3 (Target INR of 2.5)Note: For patients treated with VKA drugs, such as warfarin, the [place] [employer]icians 2012 Guideline recommends a therapeutic INR range of 2 to 3 (target INR of 2.5). This recommendation includes high-risk patients with antiphospholipid syndrome with previous arterial or venous thromboembolism, current-generation mechanical or bioprosthetic aortic heart valve replacement.Note: Patients with mechanical aortic valve replacement and additional risk factors for thromboembolic events (atrial fibrillation, previous thromboembolism, LV dysfunction, hypercoagulable conditions) or an older generation mechanical AVR (i.e., ball in-Cage) or any mechanical MVR should have a INR therapeutic range of 2.5 to 3.5 (target INR of 3).Bouchra GH, et al. Chest 2012, 141:7S-47SNishruel RA, et al. [facility] 2017, 70: 252-289 Performed By: #### C BCDIF, PT, CMP, NTBNP ####[facility] [address] [place], [place] [phone] PT Sec 10.7 sec Normal 9.7-13.0 [facility] Comment on above: Performed By: #### C BCDIF, PT, CMP, NTBNP ####[facility] [address] [place], [place] [phone] XR CHEST 2V FRONTAL/LATon XR CHEST 2V FRONTAL/LAT * * *Final Report* * *DATE OF EXAM: Nov 03 2017 10:46AM JIX [id number] - XR CHEST 2V FRONTAL/LAT / REASON: Nonrheumatic aortic (valve) stenosis * * * * Physician Interpretation * * * * EXAMINATION: CHEST RADIOGRAPH (2 VIEW FRONTAL and LATERAL)Clinical History: Nonrheumatic aortic (valve) stenosisMQ: XC2_4Comparison: None availableRESULT:Lines, tubes, and devices: None.Lungs and pleura: No consolidation. Lungs are mildly hyperinflated. No lung mass. No pleural effusion.Cardiomediastinal silhouette: Normal cardiomediastinal silhouette. The cardiac apex is upturned, suggesting possible right ventricular hypertrophy.Other: Median sternotomy. Multiple anterior mediastinal surgical clips noted. Degenerative changes in the spine.IMPRESSION:See body of report..Plumber: PSCB Transcribe Date/Time: Nov 03 2017 2:31PDictated by : YANG ZENDEJAS MDThis examination was interpreted and the report reviewed and electronically signed by: YANG ZENDEJAS MD on Nov 03 2017 2:32PM [id number] Normal [facility] Vital Signs Date Time Vital Sign Value Performing Clinician Ricardo epps 02-04-2025 09:01-0400 Body height 167.[address] Gil Gonzalez MD Work Phone: [facility] 02-04-2025 09:01-0400 Body mass index (BMI) [Ratio] 29 kg/m2 Dr. Gil Gonzalez MD Work Phone: 1(661)554-158084 [place] [address] 02-04-2025 09:01-0400 Body weight 81.[address] Gil Gonzalez MD Work Phone: 1(982)567-983384 [place] [address] 02-04-2025 09:01-0400 Diastolic blood pressure 49 mm[Hg] Dr. Gil Gonzalez MD Work Phone: 2(755)242-726384 [place] [address] 02-04-2025 09:01-0400 Heart rate 78 /min Dr. Gil Gonzalez MD Work Phone: 0(753)155-660684 [place] [address] 02-04-2025 09:01-0400 Respiratory rate 18 /min Dr. Gil Gonzalez MD Work Phone: 2(305)821-304084 [place] [address] 02-04-2025 09:01-0400 Systolic blood pressure 86 mm[Hg] Dr. Gil Gonzalez MD Work Phone: 7(508)751-196584 [place] [address] 12-25-2024 10:20-0400 Body height 167.[address] Gil Gonzalez MD Work Phone: 5(367)042-603284 [place] [address] 12-25-2024 10:20-0400 Body mass index (BMI) [Ratio] 29.3 kg/m2 Dr. Gil Gonzalez MD Work Phone: 0(592)581-039684 [place] [address] 12-25-2024 10:20-0400 Body weight 82.[address] Gil Gonzalez MD Work Phone: 8(530)784-831584 [place] [address] 12-25-2024 10:20-0400 Diastolic blood pressure 71 mm[Hg] Dr. Gil Gonzalez MD Work Phone: 4(306)526-909684 [place] [address] 12-25-2024 10:20-0400 Heart rate 80 /min Dr. Gil Gonzalez MD Work Phone: 6(109)994-144084 [place] [address] 12-25-2024 10:20-0400 Respiratory rate 20 /min Dr. Gil Gonzalez MD Work Phone: 1(506)503-059484 [place] [address] 12-25-2024 10:20-0400 Systolic blood pressure 117 mm[Hg] Dr. Gil Gonzalez MD Work Phone: 0(236)358-856384 [place] [address] 12-13-2024 09:08-0400 Body temperature 98.1 [degF] Dr. Gil oGnzalez MD Work Phone: [facility] 12-13-2024 09:08-0400 Diastolic blood pressure 63 mm[Hg] Dr. Gil Gonzalez MD Work Phone: [facility] 12-13-2024 09:08-0400 Heart rate 69 /min Dr. Gil Gonzalez MD Work Phone: [facility] 12-13-2024 09:08-0400 Respiratory rate 18 /min Dr. Gil Gonzalez MD Work Phone: [facility] 12-13-2024 09:08-0400 SaO2% (BldA) [Mass fraction] 100 % Dr. Gil Gonzalez MD Work Phone: [facility] 12-13-2024 09:08-0400 Systolic blood pressure 115 mm[Hg] Dr. Gil Gonzalez MD Work Phone: 1(637)033-027271 [place] [address] 12-13-2024 09:07-0400 Body mass index (BMI) [Ratio] 29.7 kg/m2 Dr. Gil Gonzalez MD Work Phone: 3(857)140-406771 [place] [address] 12-13-2024 09:07-0400 Body weight 83.[address] Gil Gonzalez MD Work Phone: [facility] 08-09-2024 09:23-0500 Body height 165.[address] Gil Gonzalez MD Work Phone: 4(106)770-364287 [place] [address] 08-09-2024 09:23-0500 Body mass index (BMI) [Ratio] 29.9 kg/m2 Dr. Gil Gonzalez MD Work Phone: 7(158)[phone] [address] 08-09-2024 09:23-0500 Body weight 81.[address] Gil Gonzalez MD Work Phone: [facility] 08-09-2024 09:23-0500 Diastolic blood pressure 57 mm[Hg] Dr. Gil Gonzalez MD Work Phone: [facility] 08-09-2024 09:23-0500 Heart rate 57 /min Dr. Gil Gonzalez MD Work Phone: [facility] 08-09-2024 09:23-0500 Respiratory rate 16 /min Dr. Gil Gonzalez MD Work Phone: [facility] 08-09-2024 09:23-0500 Systolic blood pressure 102 mm[Hg] Dr. Gil Gonzalez MD Work Phone: [facility] 02-09-2022 11:09-0400 Body height 165.[address] Gil Gonzalez Work Phone: [facility] Work Phone: 02-09-2022 11:09-0400 Body mass index (BMI) [Ratio] 30.8 kg/m2 Dr. Gil Gonzalez Work Phone: [facility] Work Phone: 02-09-2022 11:09-0400 Body weight 84.[address] Gil Gonzalez Work Phone: [facility] Work Phone: 02-09-2022 11:09-0400 Diastolic blood pressure 62 mm[Hg] Dr. Gil Gonzalez Work Phone: [facility] Work Phone: 02-09-2022 11:09-0400 Heart rate 60 /min Dr. Gil Gonzalez Work Phone: [facility] Work Phone: 02-09-2022 11:09-0400 Respiratory rate 16 /min Dr. Gil Gonzalez Work Phone: [facility] Work Phone: 02-09-2022 11:09-0400 Systolic blood pressure 130 mm[Hg] Dr. Gil Gonzalez Work Phone: [facility] Work Phone: 01-27-2022 13:25-0400 Diastolic blood pressure 82 mm[Hg] Dr. Gil Gonzalez Work Phone: [facility] Work Phone: 01-27-2022 13:25-0400 SaO2% (BldA) [Mass fraction] 94 % Dr. Gil Gonzalez Work Phone: [facility] Work Phone: 01-27-2022 13:25-0400 Systolic blood pressure 147 mm[Hg] Dr. Gil Gonzalez Work Phone: [facility] Work Phone: 01-27-2022 10:14-0400 Body height 165.[address] Gil Gonzalez Work Phone: [facility] Work Phone: 01-27-2022 10:14-0400 Body mass index (BMI) [Ratio] 30.8 kg/m2 Dr. Gil Gonzalez Work Phone: [facility] Work Phone: 01-27-2022 10:14-0400 Body temperature 97.1 [degF] Dr. Gil Gonzalez Work Phone: [facility] Work Phone: 01-27-2022 10:14-0400 Body weight 84.[address] Gil Gonzalez Work Phone: [facility] Work Phone: 01-27-2022 10:14-0400 Heart rate 80 /min Dr. Gil Gonzalez Work Phone: [facility] Work Phone: 01-27-2022 10:14-0400 Respiratory rate 14 /min Dr. Gli Gonzalez Work Phone: [facility] Work Phone: 01-14-2022 13:20-0400 Body mass index (BMI) [Ratio] 30.6 kg/m2 Dr. Gil Gonzalez Work Phone: [facility] Work Phone: 01-14-2022 13:20-0400 Body temperature 97.2 [degF] Dr. Gil Gonzalez Work Phone: [facility] Work Phone: 01-14-2022 13:20-0400 Body weight 83.[address] Gil Gonzalez Work Phone: [facility] Work Phone: 01-14-2022 13:20-0400 Diastolic blood pressure 64 mm[Hg] Dr. Gil Gonzalez Work Phone: [facility] Work Phone: 01-14-2022 13:20-0400 Heart rate 68 /min Dr. Gil Gonzalez Work Phone: [facility] Work Phone: 01-14-2022 13:20-0400 Respiratory rate 16 /min Dr. Gil Gonzalez Work Phone: [facility] Work Phone: 01-14-2022 13:20-0400 SaO2% (BldA) [Mass fraction] 97 % Dr. Gil Gonzalez Work Phone: [facility] Work Phone: 01-14-2022 13:20-0400 Systolic blood pressure 112 mm[Hg] Dr. Gil Gonzalez Work Phone: [facility] Work Phone: 12-13-2021 13:34-0400 Body mass index (BMI) [Ratio] 30.9 kg/m2 Dr. Gil Gonzalez Work Phone: [facility] Work Phone: 12-13-2021 13:34-0400 Body weight 84.[address] Gil Gonzalez Work Phone: [facility] Work Phone: 12-13-2021 13:34-0400 Diastolic blood pressure 66 mm[Hg] Dr. Gil Gonzalez Work Phone: [facility] Work Phone: 12-13-2021 13:34-0400 Heart rate 65 /min Dr. Gil Gonzalez Work Phone: [facility] Work Phone: 12-13-2021 13:34-0400 Respiratory rate 18 /min Dr. Gil Gonzalez Work Phone: [facility] Work Phone: 12-13-2021 13:34-0400 Systolic blood pressure 129 mm[Hg] Dr. Gil Gonzalez Work Phone: [facility] Work Phone: 12-13-2021 13:34-0400 Body height 165.[address] Gil Gonzalez Work Phone: [facility] Work Phone: 12-13-2021 13:34-0400 Body mass index (BMI) [Ratio] 30.9 kg/m2 Dr. Gil Gonzalez Work Phone: [facility] Work Phone: 12-13-2021 13:34-0400 Body weight 84.[address] Gil Gonzalez Work Phone: [facility] Work Phone: 12-13-2021 13:34-0400 Diastolic blood pressure 66 mm[Hg] Dr. Gil Gonzalez Work Phone: [facility] Work Phone: 12-13-2021 13:34-0400 Heart rate 65 /min Dr. Gil Gonzalez Work Phone: [facility] Work Phone: 12-13-2021 13:34-0400 Respiratory rate 18 /min Dr. Gil Gonzalez Work Phone: [facility] Work Phone: 12-13-2021 13:34-0400 Systolic blood pressure 129 mm[Hg] Dr. Gil Gonzalez Work Phone: [facility] Work Phone: 09-10-2021 07:52-0500 Body mass index (BMI) [Ratio] 30.6 kg/m2 Dr. Gil Gonzalez Work Phone: [facility] Work Phone: 09-10-2021 07:52-0500 Body weight 83.[address] Gil Gonzalez Work Phone: [facility] Work Phone: 09-10-2021 07:52-0500 Diastolic blood pressure 63 mm[Hg] Dr. Gil Gonzalez Work Phone: [facility] Work Phone: 09-10-2021 07:52-0500 Heart rate 59 /min Dr. Gil Gonzalez Work Phone: [facility] Work Phone: 09-10-2021 07:52-0500 Respiratory rate 16 /min Dr. Gil Gonzalez Work Phone: [facility] Work Phone: 09-10-2021 07:52-0500 Systolic blood pressure 129 mm[Hg] Dr. Gil Gonzalez Work Phone: [facility] Work Phone: Encounters Encounter Date Encounter Type Care Provider Facility Start: 02-04-2025 End: 02-04-[address] Gil Gonzalez MD Work Phone: [facility] Work Phone: Start: 02-04-2025 End: 02-04-2025 Patient encounter procedure Judy Marinelli [employer] -[facility] Work Phone: Start: 12-25-2024 End: 12-25-2024 Patient encounter procedure Judy Marinelli [employer] -[facility] Work Phone: Start: 12-25-2024 End: 12-25-[address] Gil Gonzalez MD Work Phone: [facility] Work Phone: Start: 12-20-2024 ambulatory Gil Gonzalez Facility:[facility] Start: 12-13-2024 Non-patient / Non-visit Dr. Gaurang lynch MD -[facility] Work Phone: Start: 12-12-2024 ambulatory Gil Gonzalez Facility:[facility] Start: 12-12-2024 Non-patient / Non-visit Dr. Aden mccartney MD -[facility] Start: 12-12-2024 Non-patient / Non-visit Dr. Gaurang lynch MD -[facility] Work Phone: Start: 12-12-2024 ambulatory Gaurang Cortes Facility:[facility] Start: 12-12-2024 End: 12-13-2024 Evaluation and management of inpatient Dr. Gaurang Cortes MD -Pro[facility] Care Unit Work Phone: Start: 11-18-2024 End: 11-18-[address] Gil Gonzalez MD Work Phone: [facility] Work Phone: Start: 11-18-2024 End: 11-18-2024 Patient encounter procedure Karo Sewell NP-C -[facility], [place] Work Phone: Start: 11-18-2024 End: 11-18-2024 ambulatory Karo Sewell NP Facility:[facility] Start: 11-04-2024 End: 11-04-[address] Gil Gonzalez MD Work Phone: [facility] Work Phone: Start: 11-04-2024 End: 11-04-2024 Patient encounter procedure Karo Sewell NP-C -[facility] [place] Work Phone: Start: 11-04-2024 End: 11-04-2024 ambulatory Karo Sewell NP Facility:[facility] Start: 08-09-2024 End: 08-09-2024 Patient encounter procedure Judy Marinelli NP-C -Laboratory Work Phone: Start: 08-09-2024 End: 08-09-2024 Patient encounter procedure Judy Marinelli [employer] -[facility] Work Phone: Start: 08-09-2024 End: 08-09-2024 ambulatory Gil DALAL Facility:[facility] Start: 08-09-2024 End: 08-09-2024 ambulatory Judy Andrew Isis WARD Facility:[facility] Start: 03-15-2022 Non-patient / Non-visit Dr. Wesley Gonzalez Work Phone: [facility] Start: 03-11-2022 Non-patient / Non-visit Dr. Wesley Gonzalez Work Phone: [facility] Start: 03-11-2022 End: 03-11-[address] Gil Gonzalez Work Phone: [facility] Start: 02-09-2022 End: 02-09-[address] Gil Gonzalez Work Phone: [facility] Start: 02-02-2022 End: 02-02-[address] Gil Gonzalez Work Phone: [facility] Start: 02-01-2022 End: 02-01-[address] Gil Gonzalez Work Phone: [facility] Start: 01-27-2022 End: 01-27-2022 Emergency department patient visit Dr. Gil Gonzalez Work Phone: [facility] Start: 01-14-2022 End: 01-14-[address] Gil Gonzalez Work Phone: [facility] Start: 12-31-2021 End: 12-31-[address] Gil Gonzalez Work Phone: [facility] Start: 12-13-2021 End: 12-13-[address] Gil Gonzalez Work Phone: [facility] Start: 09-10-2021 End: 09-10-[address] Gil Gonzalez Work Phone: [facility] Start: 02-27-2019 End: 05-10-2019 Patient encounter procedure SAJI DR PENA [facility] Start: 02-25-2019 End: 02-26-2019 Evaluation and management of inpatient SAJI DR PENA [facility] Start: 02-07-2019 End: 02-07-2019 Patient encounter procedure SAJI DR PENA [facility] Start: 01-11-2019 End: 01-11-2019 Patient encounter procedure SAJI DR PENA [facility] Start: 03-07-2018 End: 03-08-2018 Evaluation and management of inpatient CHANEL R ALLEN [facility] Start: 01-12-2018 End: 01-19-2018 Patient encounter MARY Mejia ([place]) [facility] Start: 12-29-2017 End: 12-29-2017 Patient encounter CHANEL R ALLEN [facility] Start: 12-27-2017 End: 12-29-2017 Evaluation and management of inpatient CHANEL R ALLEN [facility] Start: 12-26-2017 End: 01-01-2018 Patient encounter MARY Mejia ([place]) [facility] Start: 12-21-2017 End: 12-21-2017 Patient encounter TIFFANIE CANCINO [facility] Start: 11-22-2017 End: 11-23-2017 Patient encounter TIFFANIE CANCINO [facility] Start: 11-10-2017 End: 11-20-2017 Patient encounter MARYJANEHERNAN GEOFF [facility] Start: 11-03-2017 End: 11-03-2017 Patient encounter TIFFANIE CANCINO [facility] Start: 11-03-2017 End: 11-03-2017 Patient encounter TIFFANIE CANCINO [facility] Start: 11-03-2017 End: 11-03-2017 Patient encounter TIFFANIE [facility] Procedures Date Procedure Procedure Detail Performing Clinician Start: 12-13-[address] Gil Gonzalez MD Work Phone: Start: 12-13-2024 Serum inorganic phosphate measurement Dr. Gil Gonzalez MD Work Phone: Start: 12-12-2024 X-ray of chest, PA a nd lateral views Dr. Gil Gonzalez MD Work Phone: Start: 03-11-2022 Radionuclide imaging of perfusion of myocardium under exercise stress Dr. Gil Gonzalez Work Phone: Start: 01-27-2022 Plain chest X-ray Dr. Roz Gonzalez Work Phone: Start: 02-26-2019 Urinalysis SAJI ANDRADE Comment on above: Result Comment: URIN ALYSIS Performed By: #### 2 [id number] #### [facility],[address] [address] Start: 08-14-2001 History of coronary artery bypass grafting H/O coronary artery bypass surgery Judy Marinelli [employer] Comment on above: CABG: GRAJEDA to LAD ; Redo CABG GRAJEDA to LAD, SVG to RPDA 01/13 Plan of Treatment Date Care Activity Detail Author Start: 02-04-2025 Evaluation of diagnostic study results [facility] Start: 12-13-2024 Patient discharge [facility] Start: 12-12-2024 Following clinical pathway protocol [facility] Start: 12-12-2024 Transfusion of blood product [facility] Start: 12-12-2024 Ambulation without limitation [facility] Start: 12-12-2024 Assessment of risk of venous thromboembolism [facility] Start: 12-12-2024 Catheterization of vein [facility] Start: 12-12-2024 Elevation of affected extremity [facility] Start: 12-12-2024 Incentive spirometry [facility] Start: 12-12-2024 Inhalation therapy procedure [facility] Start: 12-12-2024 Insertion of catheter into peripheral vein [facility] Start: 12-12-2024 Measuring intake and output [facility] Start: 12-12-2024 Notification of physician [facility] Start: 12-12-2024 Oxygen therapy [facility] Start: 12-12-2024 Patient education [facility] Start: 12-12-2024 Providing care according to standard [facility] Start: 12-12-2024 Hospital admission, emergency, from emergency room, medical nature [facility] Start: 12-12-2024 Admission procedure [facility] Start: 12-12-2024 End: 12-12-2024 [facility] Patient Education ED BPH (Enlarg ed Prostate) ED Sleep Apnea, Obstructive [facility] Work Phone: Patient referral [facility] Work Phone: Payers Date Payer Category Payer Unknown [id number] 2024 Self-pay [id number] 1940 Unknown [id number] 2.16.84 [id number] 1940 Unknown [id number] 2.16.84 [id number] 1940 Unknown [id number] 2.16.84 [id number] Unknown [id number] Unknown Unknown [facility] P[employer]AGE [employer] . [id number] Unknown [id number] 2.16.8 [id number] Unknown [id number] 2.16.8 [id number] Unknown [id number] 2.16.8 [id number] Unknown [id number] 2.16.8 [id number] Unknown [id number] 2.16.8 [id number] Unknown [id number] 2.16.8 [id number] Unknown [id number] 2.16.8 [id number] Unknown [id number] 2.16.8 [id number] Unknown [id number] 2.16.8 [id number] Unknown [id number] 2.16.8 [id number] Social History Date Type Detail Facility Start: 12-13-2021 End: 02-09-2022 Tobacco smoking status NHIS Unknown if ever smoked [facility] Work Phone: Start: 06-20-[facility] Start: 1940 Sex Assigned At Male [facility] Start: 07-14-2023 End: 12-12-2024 Tobacco smoking status NHIS Never smoked tobacco (finding) [facility] Start: 11-09-2024 End: 11-21-2024 Sex Male (finding) [facility] Medical Equipment Procedure Code Equipment Code Equipment Origin al Text Equipment Identifier Dates Cauterization, for epistaxis IVELISSE 3GRM HEMOSTAT ABS FDA Start: 06-20-2019 Cauterization, for epistaxis IVELISSE 3GRM HEMOSTAT ABS FDA Start: 06-20-2019 Cauterization, for epistaxis IVELISSE 3GRM HEMOSTAT ABS FDA Start: 06-20-2019 Cauterization, for epistaxis IVELISSE 3GRM HEMOSTAT ABS FDA Start: 06-20-2019 Cauterization, for epistaxis IVELISSE 3GRM HEMOSTAT ABS FDA Start: 06-20-2019 Cauterization, for epistaxis IVELISSE 3GRM HEMOSTAT ABS FDA Start: 06-20-2019 Cauterization, for epistaxis IVELISSE 3GRM HEMOSTAT ABS FDA Start: 06-20-2019 Cauterization, for epistaxis IVELISSE 3GRM HEMOSTAT ABS FDA Start: 06-20-2019 Cauterization, for epistaxis IVELISSE 3GRM HEMOSTAT ABS FDA Start: 06-20-2019 ([id number]) Drug-eluting cor onary artery stent, bioabsorbable-polymer -coated [id number] FDA Start: 03-29-2022 Femoral vessel s uture implantation set [id number] FDA Start: 03-29-2022 Goals Date Patient Goal Desired Activity /State Functional Status Date Assessment Result Facility 12-13-2024 Functional status Activity Ability Indepe ndent [facility] Work Phone: 12-13-2024 Functional status Patient Activity Ambula pat [facility] Work Phone: Mental Status Date Assessment Result Facility 12-13-2024 Cognitive function Voice/Name [facility] Work Phone: Discharge summary note 12-13-2024 Note Date & Type Note Facility 12-13-2024 Note [facility] Medical Records Department [address] [place] [address] Discharge Summary 12/13/24 1010 MR#: [id number] Acct: [id number] Name: JOSELUIS VARGAS Rep #: [id number] : 1940 84 From: Gaurang Cortes MD PCP: Dr. Gil Gonzalez MD Status:ADM IN Location: [place] [address] Providers Date of Admission: 12/12/24 Date of Discharge: 12/13/24 Primary Care Physician: Dr. Gil Gonzalez MD Reason For Visit: CHF Diagnosis Discharge Diagnosis (1) CHF exacerbation: Status: Chronic Code(s): I50.9 - Heart failure, unspecified Plan Patient is an 83-year-old gentleman with history of previous CABG, valvular heart disease with previous TAVR who presented with progressive shortness of breath 1. 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 Patient echo on record obtained in July 2022 was 45%. Patient admitted to monitored bed treatment initiated with strict input and output, daily weight, fluid restriction low-sodium diet as well as diuretic therapy with furosemide. As part of his management patient was placed on supplemental oxygen titrated to keep saturation greater than 90 repeat echo was ordered. Patient blood pressure was relatively on the low side on admission complicating care. - 12/13/2024; patient did improve with diuretic therapy. 2D echo obtained during patient hospitalization did show Stage 1 diastolic dysfunction. Mildly dilated left ventricle. The estimated ejection fraction is 35 %. The left atrium is mildly enlarged. Moderate (2+) mitral valve insufficiency. Mild to moderate (1-2+) tricuspid valve insufficiency. Stable appearing bioprosthetic aortic valve apparatus. Plan is for patient to follow-up with cardiology as outpatient in 2 to 3 days 2. Coronary artery disease ??? With previous CABG (with GRAJEDA to LAD at [facility] in 1995 and redo CABG at [facility] in 2001 with SVG to LCX and SVG to RPDA) with subsequent PCI to an ostial, proximal and mid RCA lesion. Patient is on guideline directed medical therapy 3. Valvular heart disease ??? With history of aortic valve stenosis status post TAVR. Patient also has known history of mitral valve regurgitation 4. Obstructive sleep apnea ??? Consistent use of PAP therapy encouraged 5. Dyslipidemia ???Patient is is not on any statin therapy we will continue with monitoring 6. BPH with lower urinary obstructive symptoms - Patient treated with tamsulosin 7. Anemia ??? Secondary to chronic disorder monitoring H H and transfuse if patient becomes symptomatic or hemoglobin falls below 7 8.Chronic kidney disease stage III ??? Patient has experienced progressive worsening of his kidney function. Creatinine was 1.15 on 01/16/2023 was 1.5 on 11/18/2024 and admitting creatinine was 1.6 this. As part of patient's evaluation ordered renal duplex 9. DVT prophylaxis ??? Subcu heparin Time spent in the patient's overall evaluation,decision-making process, review of diagnostic data, adjustment of management, discussion with other providers, nursing nursing and ancillary staff involved in patient's care documentation, 35-minute Medications at Discharge Home Medications vitamin E 200 unit capsule 200 unit PO DAILY 09/14/20 aspirin 81 mg chewable tablet 81 mg PO Q OTHER DAY 09/10/21 tamsulosin 0.4 mg capsule (Flomax) 0.4 mg PO QHS #30 caps 01/27/22 lisinopril 5 mg tablet 2.5 mg PO DAILY 07/14/23 furosemide 40 mg tablet 40 mg PO DAILY 08/09/24 clopidogrel 75 mg tablet 75 mg PO Q OTHER DAY #45 tabs 11/12/24 sildenafil 25 mg tablet 25 mg PO TID 12/12/24 furosemide 20 mg tablet (Lasix) 20 mg PO DAILY #90 tabs 12/13/24 Physical Exam Narrative GENERAL: cooperative HEENT: Atraumatic; normocephalic EYES; Anicteric, Normal Conjunctiva NECK; supple, normal thyroid, RESPIRATORY: Diminished to auscultation CARDIOVASCULAR: Regular S1 S2, systolic murmur GI: soft, normoactive bowel sounds, : No Renal angle tenderness; EXTREMITIES: No edema, no clubbing, MUSCULOSKELETAL: no muscle wasting NEURO: Awake; no lateralizing signs. SKIN: No Rash PSYCH; Flat affect Weight / BMI Weight Weight: 83.688 kg Body Mass Index (BMI) 29.7 ABG / Lab / Microbiology Data 12/13/24 04:47 12/13/24 04:47 Laboratory: Laboratory Results - last 24 hr 12/13/24 04:47: WBC 5.9, RBC 3.60 L, Hgb 10.8 L, Hct 32.2 L, MCV 89.4, MCH 30.0, MCHC 33.5, RDW Std Deviation 49.4 H, RDW Coeff of Jenaro 14.9 H, Plt Count 157, MPV 10.7, Immature Gran % (Auto) 0.200, Neut % (Auto) 47.0, Lymph % (Auto) 36.5, Quay % (Auto) 10.9 H, Eos % (Auto) 4.9, Baso % (Auto) 0.5, Absolute Neuts (auto) 2.8, Absolute Lymphs (auto) 2.14, Nucleated RBC % 0, Sodium 137, Potassium 4.3, Chloride 101, Carbon Dioxide 24.2, Anion Gap 11, BUN 51 H, Creatinine 1.56 H, Estim Creat Clear Calc 35.16 L, Est GFR (more content not included)... [facility] Evaluation note 12-12-2024 Note Date & Type Note Facility 12-12-2024 Evaluation note Diagnosis Onset Date Resolution Dyspnea on exertion acute December 122024 9:20am Hypoxia acute December 12, 2024 9:20am SOB (shortness of breath) acute December 12, 2024 9:20am CHF exacerbation chronic December 12, 2024 9:20am Dyspnea on exertion chronic December 122024 10:16am H/O coronary artery bypass surgery 2001 chronic December 25, 2024 10:16am HFrEF (heart failure with reduced ejection fraction) chronic December 25 10:16am History of aortic valve replacement with bioprosthetic valve Dec, 2017 chronic December 25, 2024 10:16am Hyperlipidemia chronic December 25, 2024 10:16am Presence of stent in coronary artery chronic December 25, 2024 10:16am [facility] Work Phone: Evaluation note 12-12-2024 Note Date & Type Note Facility 12-12-2024 Evaluation note Diagnosis Onset Date Resolution Dyspnea on exertion acute December 122024 9:20am Hypoxia acute December 12, 2024 9:20am SOB (shortness of breath) acute December 12, 2024 9:20am CHF exacerbation chronic December 12, 2024 9:20am Dyspnea on exertion chronic December 122024 10:16am H/O coronary artery bypass surgery 2001 chronic December 25, 2024 10:16am HFrEF (heart failure with reduced ejection fraction) chronic December 25 10:16am History of aortic valve replacement with bioprosthetic valve Dec, 2017 chronic December 25, 2024 10:16am Hyperlipidemia chronic December 25, 2024 10:16am Presence of stent in coronary artery chronic December 25, 2024 10:16am Irregular heart rhythm acute February 04, 2025 8:47am Dyspnea on exertion chronic February 04, 2025 8:47am H/O coronary artery bypass surgery 2001 chronic February 04, 2025 8:47am HFrEF (heart failure with reduced ejection fraction) chronic February 04 8:47am History of aortic valve replacement with bioprosthetic valve Dec, 2017 chronic February 04, 2025 8:47am Hyperlipidemia chronic February 04, 2025 8:47am Presence of stent in coronary artery chronic February 04, 2025 8:47am [facility] Work Phone: Evaluation note 08-09-2024 Note Date & Type Note Facility 08-09-2024 Evaluation note Diagnosis Onset Date Resolution Dyspnea on exertion chronic Decem 2023 9:17am H/O coronary artery bypass surgery 2001 chronic August 09, 2024 9:17am HFrEF (heart failure with reduced ejection fraction) chronic July 9:17am History of aortic valve replacement with bioprosthetic valve Dec, 2017 chronic August 09, 2024 9:17am Hyperlipidemia chronic July 152023 9:17am Presence of stent in coronary artery chronic August 09, 2024 9:17am [facility] Work Phone: Evaluation note Note Date & Type Note Facility Evaluation note Diagnosis Onset Date Atherosclerosis of coronary artery bypass graft without angina pectoris chr onic Atherosclerotic heart diseas e of [place] coronary artery without angina pectoris chronic Chronic systolic (congestive ) heart failure chronic History of aortic valve repl acement with bioprosthetic valve Dec, 2017 chronic Hyperlipidemia chronic Presence of stent in coronary artery chronic Daytime hypersomnolence acut e Atherosclerosis of coronary artery bypass graft without angina pectoris chr onic Atherosclerotic heart diseas e of [place] coronary artery without angina pectoris chronic Chronic systolic (congestive ) heart failure chronic H/O coronary artery bypass surgery 2001 chronic History of aortic valve repl acement with bioprosthetic valve Dec, 2017 chronic Hyperlipidemia chronic Presence of stent in coronary artery chronic [facility] Work Phone: Evaluation note Note Date & Type Note Facility Evaluation note Diagnosis Onset Date Daytime hypersomnolence acut e Atherosclerosis of coronary artery bypass graft without angina pectoris chr onic Atherosclerotic heart diseas e of [place] coronary artery without angina pectoris chronic Chronic systolic (congestive ) heart failure chronic H/O coronary artery bypass surgery 2001 chronic History of aortic valve repl acement with bioprosthetic valve Dec, 2017 chronic Hyperlipidemia chronic Presence of stent in coronary artery chronic GI (obstructive sleep apnea) acute [facility] Work Phone: Evaluation note Note Date & Type Note Facility Evaluation note Diagnosis Onset Date Daytime hypersomnolence acut e Atherosclerosis of coronary artery bypass graft without angina pectoris chr onic Atherosclerotic heart diseas e of [place] coronary artery without angina pectoris chronic Chronic systolic (congestive ) heart failure chronic H/O coronary artery bypass surgery 2001 chronic History of aortic valve repl acement with bioprosthetic valve Dec, 2017 chronic Hyperlipidemia chronic Presence of stent in coronary artery chronic GI (obstructive sleep apnea) acute Atherosclerotic heart diseas e of [place] coronary artery without angina pectoris chronic Chronic systolic (congestive ) heart failure chronic H/O coronary artery bypass surgery 2001 chronic History of aortic valve repl acement with bioprosthetic valve Dec, 2017 chronic Hyperlipidemia chronic Presence of stent in coronary artery chronic [facility] Work Phone: Reason for referral (narrative) Note Date & Type Note Facility Reason for referral (narrative) No reason for referral information available [facility] Work Phone: Summary Purpose Family History Relationship Condition Age at Onset Recorded Date/T rosalinda father Myocardial infarction Unknown Cerebrovascular accident (CVA) Unknown mother Congestive heart failure Unknown brother Coronary artery disease Unknown Malignant neoplasm Unknown Advance Directives Advance Directive Response Recorded Date/ Time Advance Directives No September 12, 2017 9:03am Living Will No June 20 9:57am Power of Obstetrics Nurse No June 20, 2019 9:57am Advance Directive Response Recorded Date/ Time Advance Directives No September 12, 2017 9:03am Living Will No January 27, 2022 10:27am Power of Obstetrics Nurse No January 27 10:27am Advance Directive Response Recorded Date/ Time Living Will No March 29 12:11pm Do you have a Healthcare Power of Obstetrics Nurse? No March 29, 2022 12:11pm Advance Directives No March 29, 2022 7:31am Advance Directive Response Recorded Date/ Time Do you have a Healthcare Power of Obstetrics Nurse? No December 12, 2024 10:13am Advance Directives No March 29, 2022 7:31am Hospital Course Note [facility] DISCHARGE SUMMARY NAME ACCOUNT SEX AGE ADMIT DISCHARGE PT MED. RECORD# NUMBER DATE DATE TYPE SAM [id number] M 79 02/25/19 1 JOSELUIS Courtney [id number] ROOM: [facility] DATE OF : 1940 DICTATING PHYSICIAN: Sil Wesley PROGRESS NOTE/DISCHARGE SUMMARY ATTENDING PHYSICIAN: Dr. Saji Pena. DATE OF ADMISSION: February 25, 2019 ESTIMATED DATE OF DISCHARGE: February 26, 2019 FINAL DIAGNOSIS: HOSPITAL COURSE: This patient had an ongoing history of left knee pain. After failing conservative measures, he opted to proceed with a left total knee replacement and underwent the above-stated procedure yesterday. He did very well. The pain has been well managed. He currently denies chest pain, shortness of breath, dizziness or calf pain. His plan will be for discharge to home later this afternoon with home health/physical therapy. PHYSICAL EXAMINATION: Vitals: Pulse is 80, respirations 16, blood pressure 114/57, temperature 98.2, and SpO2 of 92% on room air. The patient is alert and oriented (more content not included)... Chief Complaint and Reason for Visit Chief Complaint 5 M FU Sleep study see clinical notes Mark DAYTIME HYPERSOMNOLENCE; 12/28 SHIRA Reason for Visit Atherosclerosis of c oronary artery bypass graft without angina pectoris Atherosclerotic heart disease of [place] coronary artery without angina pectoris Chronic systolic (congestive) heart failure History of aortic valve replacement with bioprosthetic valve Hyperlipidemia Presence of stent in coronary artery Daytime hypersomnolence Atherosclerosis of coronary artery bypass graft without angina pectoris Atherosclerotic heart disease of [place] coronary artery without angina pectoris Chronic systolic (congestive) heart failure H/O coronary artery bypass surgery History of aortic valve replacement with bioprosthetic valve Hyperlipidemia Presence of stent in coronary artery Chief Complaint Sleep study see clin ical notes Mark DAYTIME HYPERSOMNOLENCE; 12/28 CONF Sleep problems SOB Reason for Visit Daytime hypersomnole nce Atherosclerosis of coronary artery bypass graft without angina pectoris Atherosclerotic heart disease of [place] coronary artery without angina pectoris Chronic systolic (congestive) heart failure H/O coronary artery bypass surgery History of aortic valve replacement with bioprosthetic valve Hyperlipidemia Presence of stent in coronary artery GI (obstructive sleep apnea) Chief Complaint Sleep study see clin ica notes Mark DAYTIME HYPERSOMNOLENCE; 12/28 CONF Sleep problems SOB E ORDERS GI; 01/28 LM & 01/31 CONF Reason for Visit Daytime hypersomnole nce Atherosclerosis of coronary artery bypass graft without angina pectoris Atherosclerotic heart disease of [place] coronary artery without angina pectoris Chronic systolic (congestive) heart failure H/O coronary artery bypass surgery History of aortic valve replacement with bioprosthetic valve Hyperlipidemia Presence of stent in coronary artery GI (obstructive sleep apnea) Chief Complaint Sleep study see [facility] notes Mark DAYTIME HYPERSOMNOLENCE; 12/28 CONF Sleep problems SOB E ORDERS GI; 01/28 LM & 01/31 CONF 5 M FU [place] CAD ASHD Reason for Visit Daytime hypersomnole nce Atherosclerosis of coronary artery bypass graft without angina pectoris Atherosclerotic heart disease of [place] coronary artery without angina pectoris Chronic systolic (congestive) heart failure H/O coronary artery bypass surgery History of aortic valve replacement with bioprosthetic valve Hyperlipidemia Presence of stent in coronary artery GI (obstructive sleep apnea) Atherosclerotic heart disease of [place] coronary artery without angina pectoris Chronic systolic (congestive) heart failure H/O coronary artery bypass surgery History of aortic valve replacement with bioprosthetic valve Hyperlipidemia Presence of stent in coronary artery Chief Complaint Admit Date 1 Y FU August 09, 2024 9:17am EORDERS November 04, 2024 9:4 2am Reason for Visit Admit Date Dyspnea on exertion August 09, 2024 9:17am H/O coronary artery bypass surgery Decem 2023 9:17am 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) August 09, 2024 9:17am History of aortic valve repl acement with bioprosthetic valve August 09, 2024 9:17am Hyperlipidemia August 09, 2024 9:17am Presence of stent in coronary artery Dec ember 2023 9:17am Chief Complaint Admit Date 1 Y FU August 09, 2024 9:17am EORDERS November 04, 2024 9:4 2am E-ORDER November 18, 2024 8:04 am Chief Complaint Admit Date EORDERS November 04, 2024 9:4 2am E-ORDER November 18, 2024 8:04 am CHF December 12, 2024 9:20am Congestive heart failure December 12, 2024 9 :24am Congestive heart failure December 13, 2024 1 0:10am S/P HOSP ([facility] 5/2) December 25, 2024 10:16 am Reason for Visit Admit Date Dyspnea on exertion December 12, 2024 9:20am Hypoxia December 12, 2024 9:20am SOB (shortness of breath) December 12, 2024 9:20am CHF exacerbation December 12, 2024 9:20am Dyspnea on exertion December 25, 2024 10:16 am H/O coronary artery bypass surgery December 122024 10:16am 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) December 25, 2024 10:16am History of aortic valve replacement with bioprosthetic valve December 25, 2024 10:16am Hyperlipidemia December 25, 2024 10:16 am Presence of stent in coronary artery December 25, 2024 10:16am Chief Complaint Admit Date EORDERS November 04, 2024 9:4 2am E-ORDER November 18, 2024 8:04 am CHF December 12, 2024 9:20am Congestive heart failure December 12, 2024 9 :24am Congestive heart failure December 13, 2024 1 0:10am S/P HOSP ([facility] 5/2) December 25, 2024 10:16 am 6 M FU February 04, 2025 8:47 am Reason for Visit Admit Date Dyspnea on exertion December 12, 2024 9:20am Hypoxia December 12, 2024 9:20am SOB (shortness of breath) December 12, 2024 9:20am CHF exacerbation December 12, 2024 9:20am Dyspnea on exertion December 25, 2024 10:16 am H/O coronary artery bypass surgery December 122024 10:16am 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) December 25, 2024 10:16am History of aortic valve replacement with bioprosthetic valve December 25, 2024 10:16am Hyperlipidemia December 25, 2024 10:16 am Presence of stent in coronary artery December 25, 2024 10:16am Irregular heart rhythm February 04, 2025 8 :47am Dyspnea on exertion February 04, 2025 8:47 am H/O coronary artery bypass surgery February 04, 2025 8:47am 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) February 04, 2025 8:47am History of aortic valve replacement with bioprosthetic valve February 04, 2025 8:47am Hyperlipidemia February 04, 2025 8:47 am Presence of stent in coronary artery Jake 2024 8:47am Additional Source Comments (unrecognized sect ion and content) No Status Records FoundNo Status Records FoundNo Status Records FoundNo Status Records FoundNo Status Records Found INFORMATION SOURCE (unrecogn ized section and content) DATE CREATED AUTHOR 03/26/2018 [facility] [place] DATE CREATED AUTHOR AUTHOR'S ORGANIZ ATION 05/12/2019 [facility] DATE CREATED AUTHOR AUTHOR'S ORGANIZ ATION 09/17/2020 [facility] DATE CREATED AUTHOR AUTHOR'S ORGANIZ ATION 10/05/2020 [facility] ([place] DATE CREATED AUTHOR AUTHOR'S ORGANIZ ATION 12/25/2024 [place] [facility] Goals (unrecognized section and content) Goals may be documented in a n alternate sectionGoals may be documented in an alternate sectionGoals may be documented in an alternate sectionGoals may be documented in an alternate sectionGoals may be documented in an alternate sectionGoals may be documented in an alternate sectionGoals may be documented in an alternate section Care Teams (unrecognized sec tion and content) Team Status: Active Member Role Status Dates Dr. Gil Gonzalez MD Family Provider Active Dr. Gil Gonzalez MD Primary Care Provider Active Team Status: Inactive Member Role Status Dates Dr. Gil DALAL MD Primary Care Provider Active Start: August 09, 2024 End: August 09, 2024 Dr. Gil DALAL MD Referring Provider Active Start: August 09, 2024 End: August 09, 2024 Judy Marinelli [employer], [employer] Attending Provider Active S tart: August 09, 2024 End: August 09, 2024 Team Status: Inactive Member Role Status Dates Dr. Gil DALAL MD Primary Care Provider Active Start: August 09, 2024 End: August 09, 2024 Judy Marinelli [employer], [employer]-C Attending Provider Active S tart: August 09, 2024 End: August 09, 2024 Judy Marinelli [employer], [employer]-C Referring Provider Active S tart: August 09, 2024 End: August 09, 2024 Team Status: Inactive Member Role Status Dates Dr. Gil Gonzalez MD Primary Care Provider Active Start: November 04, 2024 End: November 04, 2024 Karo Sewell [employer], [employer]-C Attending Provider Active S tart: November 04, 2024 End: November 04, 2024 Karo Sewell [employer], [employer]-C Referring Provider Active S tart: November 04, 2024 End: November 04, 2024 Team Status: Inactive Member Role Status Dates Dr. Gil Gonzalez MD Primary Care Provider Active Start: November 18, 2024 End: November 18, 2024 Karo Sewell [employer], [employer]-C Attending Provider Active S tart: November 18, 2024 End: November 18, 2024 Karo Sewell [employer], [employer]-C Referring Provider Active S tart: November 18, 2024 End: November 18, 2024 Team Status: Active Member Role Status Dates Dr. Gil Gonzalez MD Primary Care Provider Active Team Status: Inactive Member Role Status Dates Dr. Gil Gonzalez MD Primary Care Provider Active Start: December 12, 2024 End: December 13, 2024 Jose Lopez MD Emergency Provider Active Star t: December 12, 2024 End: December 13, 2024 Dr. Gaurang Cortes MD Admit Provider Active Star t: December 12, 2024 End: December 13, 2024 Dr. Gaurang Cortes MD Attending Provider Active Start: December 12, 2024 End: December 13, 2024 Team Status: Active Member Role Status Dates Dr. Gil Gonzalez MD Primary Care Provider Active Start: December 12, 2024 Joes Lopez MD Emergency Provider Active Star t: December 12, 2024 Dr. Gaurang Cortes MD Admit Provider Active Star t: December 12, 2024 Dr. Gaurang Cortes MD Attending Provider Active Start: December 12, 2024 Dr. Gaurang Cortes MD Other Provider Active Star t: December 12, 2024 Team Status: Active Member Role Status Dates Dr. Gil Gonzalez MD Primary Care Provider Active Start: December 12, 2024 Dr. Aden Knutson MD Attending Provider Active Start: December 12, 2024 Team Status: Active Member Role Status Dates Dr. Gil Gonzalez MD Primary Care Provider Active Start: December 13, 2024 Jose Lopez MD Emergency Provider Active Star t: December 13, 2024 Dr. Gaurang Cortes MD Admit Provider Active Star t: December 13, 2024 Dr. Gaurang Cortes MD Attending Provider Active Start: December 13, 2024 Dr. Gaurang Cortes MD Other Provider Active Star t: December 13, 2024 Team Status: Inactive Member Role Status Dates Dr. Gil Gonzalez MD Primary Care Provider Active Start: December 25, 2024 End: December 25, 2024 Dr. Gil Gonzalez MD Referring Provider Active St art: December 25, 2024 End: December 25, 2024 Judy Marinelli NP, [employer] Attending Provider Active S tart: December 25, 2024 End: December 25, 2024 Team Status: Inactive Member Role Status Dates Dr. Gil DALAL MD Referring Provider Active Start: February 04, 2025 End: February 04, 2025 Judy Marinelli NP, [employer]-C Attending Provider Active S tart: February 04, 2025 End: February 04, 2025 Dr. Gil Gonzalez MD Primary Care Provider Active Start: February 04, 2025 End: February 04, 2025 FOR RECORDS PERTAINING TO PATIENTS WHO ARE OR HAVE BEEN ENROLLED IN A CHEMICAL DEPENDENCY/SUBSTANCEABUSE PROGRAM, SOME INFORMATION MAY BE OMITTED. This clinical summary was aggregated from multiple sources. Caution should be exercised in using it in the provision of clinical care. This summary normalizes information from multiple sources, and as a consequence, information in this document may materially change the coding, format and clinical context of patient data. In addition, data may be omitted in some cases. CLINICAL DECISIONS SHOULD BE BASED ON THE PRIMARY CLINICAL RECORDS. [facility]. provides no warranty or guarantee of the accuracy or completeness of information in this document.
[2025-02-05] VITALS (57 sets, daily range): BP systolic 74–126; BP diastolic 48–90; PULSE 62–92; RESP 6–28; TEMP 36–39.1; O2SAT 93–100; BMI 30.5
--- NOTE | 2025-02-05 00:02 | ECHOLC_ITS ---
Reason For Study Reason For Study: CONGESTIVE HEART FAILURE Procedure This was a limited 2D transthoracic echocardiogram. Contrast injection was performed. Exam performed portable in ICU/CCU. Left Ventricle Mildly dilated left ventricle. The left ventricular ejection fraction is 25 %. There is moderate global hypokinesis of the left ventricle. Right Ventricle Normal RV size. Normal systolic function. Atria Normal left atrium. Normal right atrium. Tricuspid Valve Normal tricuspid valve. Mild (1+) tricuspid valve insufficiency. Pulmonary artery systolic pressure is 35 mmHg. Aortic Valve Bioprosthetic aortic valve. Great Vessels Normal aortic root. Pericardium/Pleural No pericardial effusion. Medication Diluted definity 2ml given slow IV push to enhance endocardial definition. MMode/2D Measurements & Calculations LVIDd: 5.8 cm IVSd: 0.79 cm LAV(MOD- bp): 69.8 ml LVIDs: 4.6 cm LVPWd: 0.67 cm LAV(MOD- bp) Indexed: 35.7 ml/m2 RVDd: 4.4 cm FS: 21.8 % LAV(MOD- sp2): 60.8 ml LAV(MOD- sp4): 67.8 ml LVAd ap4: 51.1 cm2 LVAd ap2: 54.8 cm2 SV(MOD- sp4): 54.9 ml LVLd ap4: 9.6 cm LVLd ap2: 9.9 cm SI(MOD- sp4): 28.1 ml/m2 EDV(MOD-sp4): 221.2 ml EDV(MOD-sp2): 248.3 ml EDV(sp4-el): 230.4 ml EDV(sp2-el): 257.2 ml LVAs ap4: 43.1 cm2 LVAs ap2: 47.4 cm2 LVLs ap4: 9.3 cm LVLs ap2: 9.0 cm ESV(MOD-sp4): 166.3 ml ESV(MOD-sp2): 202.5 ml ESV(sp4-el): 168.8 ml ESV(sp2-el): 212.3 ml EF(MOD-sp4): 24.8 % EF(MOD-sp2): 18.4 % EF(sp4-el): 26.7 % SV(MOD-sp2): 45.8 ml SV(sp4-el): 61.6 ml Ao sinus diam: 3.1 cm SI(MOD-sp2): 23.4 ml/m2 LA A4 area: 22.4 cm2 LA dimension(2D): 4.1 cm RA A4 area: 16.8 cm2 TAPSE: 0.92 cm Doppler Measurements & Calculations TR max adri: 276.0 cm/sec TR max P.5 mmHg ECHO/Echo Limited w/Contrast Interpretation Summary There is moderate global hypokinesis of the left ventricle. Mildly dilated left ventricle. The left ventricular ejection fraction is 25 %. Bioprosthetic aortic valve. Contrast injection was performed. Ordering Physician: Rea Cancino Referring Physician: Rea Cancino Performed By: Tori Daniel RDCS
[2025-02-05 00:31] LABS: Procalcitonin 1.39 ng/mL (<=0.10)
[2025-02-05] MEDS: Pantoprazole Sodium 40 MG in 0.9% Normal Saline (100mL MB+) 100 ML 330 MG IV ×3 (01:01→21:50)
[2025-02-05] MEDS: Piperacil/Tazobactam 3.375 GM in 0.9% Normal Saline (50mL MB+) 50 ML IV ×4 (01:01→21:51)
[2025-02-05] MEDS: Furosemide 500 MG in Empty Viaflex 50 mL 1 EACH CONT INF (01:03)
--- NOTE | 2025-02-05 01:21 | PCMCONS.TICU ---
HPI Consult Data Date of Consult: 02/05/25 HPI Narrative Reason for Consultation: hypotension, ?sepsis, acute hypoxemic respiratory failure HPI Narrative: JOSELUIS VARGAS, is a 85 M who presents with CC of SOB. Per family, he has been having worsening/gradual [place] and SOB. Walks with a cane but also stops after <1 driveway distance 2/2 SOB. Denies swelling, but his OP cardiolgist has been titrating medications related to his BP. Denies sick contacts, dysuria and cough. No wheezing. LAst ECHO showing EF 30%. He was placed on NIPPV in ED for his ARF, but in ICU, he has since been weaned to room air. Lasix drip has yielded ~600cc uop already. He feels better. [facility] Medical History GI treated with BiPAP Valvular heart disease HTN (hypertension) CAD (coronary artery disease) HFrEF (heart failure with reduced ejection fraction) Daytime hypersomnolence Nonrheumatic aortic (valve) stenosis Hyperlipidemia Atherosclerotic heart disease of [place] coronary artery without angina pectoris Atherosclerosis of coronary artery bypass graft without angina pectoris (~03/29/22) Home Medications ?Medication ?Instructions ?Recorded ?Last Taken ?Type vitamin E 200 unit capsule 200 unit PO DAILY 09/14/20 Unknown History aspirin 81 mg chewable tablet 81 mg PO Q OTHER DAY 09/10/21 03/29/22 History tamsulosin 0.4 mg capsule (Flomax) 0.4 mg PO QHS #30 caps 01/27/22 Unknown Rx lisinopril 5 mg tablet 2.5 mg PO DAILY 07/14/23 Unknown History clopidogrel 75 mg tablet 75 mg PO Q OTHER DAY #45 tabs 11/12/24 Unknown Rx dapagliflozin propanediol 10 mg 10 mg PO heart 02/05/25 Unknown History tablet dapagliflozin propanediol 10 mg 10 mg PO DAILY heart 02/05/25 Unknown History tablet (Farxiga) furosemide 40 mg tablet 80 mg PO QDAY 02/05/25 Unknown History Allergy/AdvReac Type Severity Reaction Status Date / Time No Known Allergies Allergy Verified 02/04/25 18:00 Family History Father Myocardial infarction CVA (cerebral vascular accident) Mother CHF (congestive heart failure) Brother CAD (coronary artery disease) Cancer leukemia Surgical History Presence of coronary artery bypass graft stent (~03/29/22) History of arthroplasty of knee H/O coronary artery bypass surgery (~01/2002) History of left inguinal hernia repair (~1961) Presence of stent in coronary artery Postsurgical percutaneous transluminal coronary angioplasty (PTCA) status History of aortic valve replacement with bioprosthetic valve (~12/27/17) Social History adopted: No household members: spouse housing: house number of children: 6 current occupational status: employed current occupation: [employer] current occupational exposures/hazards: No pets and animals: Yes (chickens 2 and 1 horse) leisure activities: hunting and fishing history of recent travel: No Smoking Status: Never smoker alcohol intake: never substance use type: does not use caffeine: No what type of physical activity do you participate in: walking frequency: 5-6 times per week duration: 30-45 minutes/day seatbelt use: sometimes do you feel safe at home: Yes ROS ROS Narrative 12 or more systems reviewed and are negative except for abdominal fullness Objective Data Objective Data Vital Signs: Vital Signs Last response Temperature 36.3 C L 02/04/25 23:21 Temperature Source Axillary 02/04/25 23:21 Pulse Rate 78 02/04/25 23:21 Respiratory Rate 18 02/04/25 23:21 Respiratory Effort Normal, Non-Labored 02/04/25 18:04 Respiratory Pattern Tachypnea 02/04/25 21:43 Blood Pressure 103/68 02/04/25 23:21 Blood Pressure Mean 79 02/04/25 23:21 Pulse Ox 98 02/04/25 23:21 Oxygen Delivery Method Bi-pap 02/04/25 23:21 Oxygen Flow Rate (L/min) 2 02/04/25 21:00 Fraction of Inspired Oxygen (FIO2) 28 02/04/25 21:43 I&O: I&O Last 24 Hours 02/04/25 02/04/25 02/05/25 11:59 23:59 11:59 Intake Total 2500 / 2500 0.2 / 0.2 Balance 2500 / 2500 0.2 / 0.2 I&O: Total Stay 02/04/25 17:55 thru 02/05/25 01:15 Intake Total 2500.2 Balance 2500.2 Current Meds Ordered / Administered: Current meds ordered / Administered Generic Name Dose Route Start Last Admin Trade Name Freq PRN Reason Stop Dose Admin Acetaminophen 650 mg 02/05/25 00:02 Acetaminophen 325 Mg Tablet PO Q4H PRN PRN Fever, pain 1-1010 Al Hydroxide/Mg Hydroxide 30 ml 02/05/25 00:02 Mag Hydrox/Al Hydrox/Simeth 30 Ml Udc PO Q6H PRN PRN Gastric Burning Albuterol Sulfate 2.5 mg 02/05/25 00:02 Albuterol 2.5 Mg/3 Ml Vial.Neb. INHALATION Q2H PRN PRN Dyspnea, wheezing Aspirin 81 mg 02/06/25 08:00 Aspirin 81 Mg Tab.Chew PO QODAY@0800 MENA Clopidogrel Bisulfate 75 mg 02/06/25 10:00 Clopidogrel Bisulfate 75 Mg Tablet PO QODAY MENA Guaifenesin 20 ml 02/05/25 00:02 Guaifenesin 10 Ml Udc (200mg/10ml) PO Q4H PRN PRN COUGH Heparin Sodium (Porcine) 0 unit 02/05/25 00:20 Heparin Injection (Vial) 5,000 Unit/Ml Vial IV UD PRN dose adjustment Protocol Hydralazine HCl 10 mg 02/05/25 00:02 Hydralazine 20 Mg/Ml Vial IV Q4H PRN PRN SBP > 160 Protocol Piperacillin Sod/Tazobactam 50 mls @ 12.5 mls/hr 02/05/25 00:02 02/05/25 01:01 Sod 3.375 gm/ Sodium Chloride IV 12.5 mls/hr Q8 MENA Administration Pantoprazole Sodium 40 mg/ 100 mls @ 330 mls/hr 02/05/25 00:02 02/05/25 01:01 Sodium Chloride IV 330 mls/hr Q12 MENA Administration Furosemide 500 mg/ N/A 50 mls @ 1 mls/hr 02/05/25 00:02 02/05/25 01:15 CONT INF 0 mg/hr .Q50H MENA 0 mls/hr Infusion 10 MG/HR Heparin Sodium/Dextrose 25,000 units in 250 mls @ 10 mls/hr 02/05/25 00:02 CONT INF .Q25H [facility] Protocol As Directed Sodium Chloride 250 mls @ 15 mls/hr 02/05/25 00:28 IV .[id number] PRN Saline Flush Sodium Chloride 250 mls @ 15 mls/hr 02/05/25 00:28 IV .[id number] PRN Additional IVPB Infusion Norepinephrine Bitartrate 8 mg 250 mls @ 9.375 mls/hr 02/05/25 01:10 / Sodium Chloride CONT INF .[id number] [facility] Protocol 5 MCG/MIN Melatonin 3 mg 02/05/25 00:02 Melatonin 3 Mg Tablet PO QHS PRN PRN INSOMNIA Nitroglycerin 0.4 mg 02/05/25 00:02 Nitroglycerin (Inpatient Use) 0.4 Mg Tab.Subl SL Q5M PRN CARDIAC/CHEST PAIN Ondansetron HCl 4 mg 02/05/25 00:02 Ondansetron 4 Mg/2 Ml Vial IV Q8H PRN PRN NAUSEA/VOMITING Prochlorperazine Edisylate 5 mg 02/05/25 00:02 Prochlorperazine 10 Mg/2 Ml Vial IV Q4H PRN PRN Breakthrough Nausea/Vomiting Senna/Docusate Sodium 2 tablet 02/05/25 00:02 Senna/Docusate Sodium 1 Tablet PO BID PRN PRN Constipation Sodium Chloride 10 - 40 ml 02/05/25 00:28 0.9% Saline Lock 10 Ml Syringe IV UD PRN SALINE FLUSH Tamsulosin HCl 0.4 mg 02/05/25 22:00 Tamsulosin Hcl 0.4 Mg Capsule PO QHS [facility] Physical Exam Const alert, oriented x3 and no apparent distress General Appearance: cooperative, well developed and frail HEENT normocephalic, head/scalp atraumatic and moist oral mucous membranes Throat: posterior oropharynx normal Eyes PERRL, EOMs intact bilaterally, conjunctivae normal and no scleral icterus Neck full ROM, no lymphadenopathy, supple and no JVD Lymph Lymphatic: no lymphadenopathy noted Chest inspection of chest normal Resp normal respiratory effort and no use of accessory muscles Effort and Inspection: able to speak in complete sentences Auscultation: rales Cardio regular rate and regular rhythm Cardio Narrative: frequent ectopy GI normal to inspection, nondistended, normoactive bowel sounds, soft to palpation and non-tender GI Narrative: Tympanic no CVA tenderness Extremity no clubbing, cyanosis or edema Skin no rashes or lesions noted Neuro oriented x3, CN's II-XII intact bilaterally, moves all extremities and no focal motor deficits Speech: speech normal Psych cooperative and affect normal Lab / Micro Data Attestation: I reviewed the patient's lab results. 02/04/25 18:30 02/04/25 17:57 Labs: Laboratory Results - last 24 hr 02/04/25 17:57: Sodium 125 L, Potassium 3.9, Chloride 92 L, Carbon Dioxide 18.4 L, Anion Gap 15, BUN 50 H, Creatinine 1.94 H, Estim Creat Clear Calc 28.98 L, Est GFR (MDRD) Non-Af 33 L, BUN/Creatinine Ratio 25.8 H, Glucose 131 H, Calcium 8.0, Magnesium 2.1, Total Bilirubin 0.66, AST 108 H, ALT 84 H, Alkaline Phosphatase 137 H, Troponin T High Sens 108 H*, [place] [address] H, Total Protein 5.9, Albumin 3.5, Globulin 2.4, Albumin/Globulin Ratio 1.5 02/04/25 18:30: WBC 5.7, RBC 3.63 L, Hgb 10.6 L, Hct 31.0 L, MCV 85.4, MCH 29.2, MCHC 34.2, RDW Std Deviation 43.8, RDW Coeff of [place] 13.9, Plt Count 82 L, MPV 11.4, Immature Gran % (Auto) 0.500, Neut % (Auto) 79.6 H, Lymph % (Auto) 12.3 L, [place] % (Auto) 7.4, Eos % (Auto) 0.0, Baso % (Auto) 0.2, Absolute Neuts (auto) 4.5, Absolute Lymphs (auto) 0.70 L, Nucleated RBC % 0, Differential Comment SCANNED, Platelet Estimate MOD DEC, PT 16.0 H, INR 1.3, APTT 32.2, Lactic Acid 1.3 02/04/25 18:58: Urine Color Yellow, Urine Clarity Sl. Cloudy, Urine pH 5.0, Ur Specific [place] 1.020, Urine Protein 30 H, Urine Glucose (UA) Normal, Urine Ketones Negative, Urine Occult Blood 50 H, Urine Nitrite Negative, Urine Bilirubin Negative, Urine Urobilinogen Normal, Ur Leukocyte Esterase Negative, Urine RBC 0-5 SEEN, Urine WBC 0 SEEN, Ur Squamous Epith Cells 0-5 SEEN, Ur Renal Epithelial Cell 0-5 SEEN, Amorphous Sediment 1+, Urine Bacteria 2+, Urine Mucus 0 SEEN 02/04/25 19:57: Troponin T Hi Sens 2 Hr 111 H* 02/04/25 21:56: Troponin T Hi Sens 4Hr 114 H*, Procalcitonin 1.39 H ABG Data ABG results: ABG 02/04/25 20:14 Specimen Type HEIDI Sample Site Not entered VBG pH 7.47 H VBG pO2 37 VBG HCO3 20 L VBG Total CO2 21 L VBG O2 Sat (Calc) 76 H VBG Base Excess -4 L POC Mix VBG pCO2 Pt Tmp 27.3 L O2 Delivery Device Room Air Rhythm Strip Rhythm Strip: Sinus Rhythm Rate: 100 Ectopy: PVC(s) Imaging Radiology Impression Chest X-Ray 02/04/25 19:02 IMPRESSION: Prominent interstitial markings with enlarged cardiomediastinal silhouette, as can be seen with cardiogenic pulmonary edema. Reading Location: [id number] Chest/Abdomen/Pelvis CT 02/04/25 20:37 IMPRESSION: 1. Trace pleural effusions, [id number]-[id number]-[id number]-left. 2. Gallbladder wall thickening, without radiodense stones. This is a nonspecific finding and could be related to fluid overload. Consider ultrasound if patient has associated symptoms. 3. Abdominal aortic aneurysm measuring 4.5 cm. 4. Solid pulmonary nodule in the right middle lobe measuring 4 mm, consider CT chest in 12 months if patient is at high risk for malignancy per Fleischner society guidelines. Reading Location: [facility] Gallbladder Ultrasound 02/04/25 22:47 IMPRESSION: 1. Limited evaluation due to incomplete distention of the gallbladder. No radiodense stones are seen. There is mild wall thickening, similar to same day CT. 2. Findings suggestive of hepatic steatosis. Reading Location: [id number] CT C/A/P reviewed in person with family: trace edema and effusion in the bilateral bases, no major ascites. Significant distension of stomach and bowel loops, but no perforation evident/obvious. Assessment and Plan . 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 hypervolemia acute hypoxemic respiratory failure acute renal failure OSAS Plan: Stop lasix drip, convert to scheduled 40mg IV BID start norepinephrine for acute cardiorenal syndrome procal may be artificially elevate din the setting of MICHELLE, as would be the TI DC heparin drip empiric abx ok for now, but if WBC remains low can stop tomorrow CPAP 10cwp QHS for OSAS avoid BIPAP 2/2 risk of loop-gain mediated Suleman Amezcua respiration AICD consultation vs life vest given frequent ectopy if needed, can trial midodrine later Ron Vegas MD Critical Care Time: 80 min The entirety of this encounter was done via Telemedicine
[2025-02-05] MEDS: Norepinephrine 8 MG in 0.9% Normal Saline (250mL Bag) 242 ML 1.9 MG CONT INF (01:45)
[2025-02-05] MEDS: Furosemide 40 MG/4 ML Vial IV (02:10)
[2025-02-05 05:05] LABS: Absolute Lymphocyte Count 0.76 X10^3/uL (0.83-4.51); Absolute Neutrophil Count 3.4 X10^3/uL (2.0-7.7); Basophil# 0.01 X10^3/uL; Basophil% 0.2 % (0-1); Hematocrit 31.5 % (40-54); Hemoglobin 10.7 g/dL (13.0-16.5); Lymphocyte # 0.76 X10^3/ul (0.83-4.51); Lymphocyte % 16.4 % (19-41); Mean Corpuscular Hgb 29.5 pg (27.0-32.0); Mean Corpuscular Volume 86.8 fL (80-94); Mean Platelet Vol. 10.9 fl (6.2-12.0); Monocyte# 0.42 X10^3/uL; Monocyte% 9.1 % (0-10); NRBC Flagged by Analyzer 0 % (0-5); Neutrophil # 3.43 X10^3/uL (2.7-7.7); Neutrophil % 73.9 % (47-70); POSITIVE COUNT YES; Platelet Count 86 K/mm3 (150-450); Red Blood Count 3.63 M/mm3 (4.6-6.2); White Blood Count 4.6 K/mm3 (4.4-11.0)
[2025-02-05 05:54] LABS: ALB/GLOB Ratio 1.3 RATIO (0.9-2.4); AST(SGOT) 93 U/L (<=37); Alanine Aminotransfer ALT/SGPT 86 U/L (<=46); Albumin, Serum 3.4 g/dL (3.4-4.8); Alkaline Phosphatase 144 U/L (40-129); Anion Gap 15 (5-15); BUN 50 mg/dL (4-19); BUN/Creat Ratio 27.3 RATIO (10-20); Calcium,Total 8.2 mg/dL (7.6-11.0); Carbon Dioxide 18.7 mmol/L (21.0-32.0); Chloride 96 mmol/L (98-108); Creatinine, Serum 1.82 mg/dL (0.70-1.20); EST Glomerular Filtration Rate 36 (>60); Estimated Creatinine Clearance 30.24 ml/min (50-250); Globulin 2.6 g/dL (2.2-4.2); Glucose 121 mg/dL (70-99); Potassium 3.5 mmol/L (3.3-5.1); Protein, Total 5.9 g/dL (5.9-8.4); Sodium Level 130 mmol/L (133-145); Total Bilirubin 0.75 mg/dL (0.00-1.30)
[2025-02-05] MEDS: 0.9% Saline Lock 10 ML Syringe IV ×2 (06:06→07:32)
[2025-02-05 06:19] LABS: Cholesterol 224 mg/dL (<=200); High Density Lipoprotein 47 mg/dL; Low Density Lipoprotein Calc. 161 mg/dL; Triglycerides 80 mg/dL; Very Low Density Lipoprotein 16 mg/dL (5-40); cholesterol:hdl ratio screen 4.74
--- NOTE | 2025-02-05 06:54 | PCM.PN.HOSP ---
Reason for Visit Reason for Visit: Diagnoses Heart failure, unspecified (02/04/25) Subjective Subjective Denies pain. Still having fevers. Objective Data Objective Data Vital Signs: Vital Signs Temp Pulse Resp BP Pulse Ox O2 Del Method O2 Flow Rate 36.5 C L 75 14 106/58 L 100 CPAP 2 02/05/25 06:00 02/05/25 06:00 02/05/25 06:00 02/05/25 06:00 02/05/25 06:00 02/05/25 06:00 02/04/25 21:00 FiO2 28 02/05/25 05:12 Oxygen Flow Rate (L/min) 2 Oxygen Delivery Method CPAP Weight: 84.4 kg Body Mass Index (BMI) 30.0 Intake & Output: Intake and Output for Last 24 Hours 02/03/25 02/04/25 02/05/25 23:59 23:59 23:59 Intake Total 2500 / 2500 176.89 / 176.89 Output Total 2450 / 2450 Balance 2500 / 2500 -2273.11 / -2273.11 Lab / Micro Data 02/05/25 04:47 02/05/25 04:47 Labs: Laboratory Results - last 24 hr 02/04/25 17:57: Sodium 125 L, Potassium 3.9, Chloride 92 L, Carbon Dioxide 18.4 L, Anion Gap 15, BUN 50 H, Creatinine 1.94 H, Estim Creat Clear Calc 28.98 L, Est GFR (MDRD) Non-Af 33 L, BUN/Creatinine Ratio 25.8 H, Glucose 131 H, Calcium 8.0, Magnesium 2.1, Total Bilirubin 0.66, AST 108 H, ALT 84 H, Alkaline Phosphatase 137 H, Troponin T High Sens 108 H*, [place] [address] H, Total Protein 5.9, Albumin 3.5, Globulin 2.4, Albumin/Globulin Ratio 1.5 02/04/25 18:30: WBC 5.7, RBC 3.63 L, Hgb 10.6 L, Hct 31.0 L, MCV 85.4, MCH 29.2, MCHC 34.2, RDW Std Deviation 43.8, RDW Coeff of [place] 13.9, Plt Count 82 L, MPV 11.4, Immature Gran % (Auto) 0.500, Neut % (Auto) 79.6 H, Lymph % (Auto) 12.3 L, [place] % (Auto) 7.4, Eos % (Auto) 0.0, Baso % (Auto) 0.2, Absolute Neuts (auto) 4.5, Absolute Lymphs (auto) 0.70 L, Nucleated RBC % 0, Differential Comment SCANNED, Platelet Estimate MOD DEC, PT 16.0 H, INR 1.3, APTT 32.2, Lactic Acid 1.3 02/04/25 18:58: Urine Color Yellow, Urine Clarity Sl. Cloudy, Urine pH 5.0, Ur Specific [place] 1.020, Urine Protein 30 H, Urine Glucose (UA) Normal, Urine Ketones Negative, Urine Occult Blood 50 H, Urine Nitrite Negative, Urine Bilirubin Negative, Urine Urobilinogen Normal, Ur Leukocyte Esterase Negative, Urine RBC 0-5 SEEN, Urine WBC 0 SEEN, Ur Squamous Epith Cells 0-5 SEEN, Ur Renal Epithelial Cell 0-5 SEEN, Amorphous Sediment 1+, Urine Bacteria 2+, Urine Mucus 0 SEEN 02/04/25 19:57: Troponin T Hi Sens 2 Hr 111 H* 02/04/25 21:56: Troponin T Hi Sens 4Hr 114 H*, Procalcitonin 1.39 H 02/05/25 04:47: WBC 4.6, RBC 3.63 L, Hgb 10.7 L, Hct 31.5 L, MCV 86.8, MCH 29.5, MCHC 34.0, RDW Std Deviation 45.0 H, RDW Coeff of [place] 14.0, Plt Count 86 L, MPV 10.9, Immature Gran % (Auto) 0.400, Neut % (Auto) 73.9 H, Lymph % (Auto) 16.4 L, [place] % (Auto) 9.1, Eos % (Auto) 0.0, Baso % (Auto) 0.2, Absolute Neuts (auto) 3.4, Absolute Lymphs (auto) 0.76 L, Nucleated RBC % 0, Sodium 130 L, Potassium 3.5, Chloride 96 L, Carbon Dioxide 18.7 L, Anion Gap 15, BUN 50 H, Creatinine 1.82 H, Estim Creat Clear Calc 30.24 L, Est GFR (MDRD) Non-Af 36 L, BUN/Creatinine Ratio 27.3 H, Glucose 121 H, Calcium 8.2, Total Bilirubin 0.75, AST 93 H, ALT 86 H, Alkaline Phosphatase 144 H, Total Protein 5.9, Albumin 3.4, Globulin 2.6, Albumin/Globulin Ratio 1.3, Triglycerides 80, Cholesterol 224 H, LDL Cholesterol, Calc 161, VLDL Cholesterol 16, HDL Cholesterol 47, Cholesterol/HDL Ratio 4.74, TSH 1.900 ABG Data ABG results: ABG 02/04/25 20:14 Specimen Type HEIDI Sample Site Not entered VBG pH 7.47 H VBG pO2 37 VBG HCO3 20 L VBG Total CO2 21 L VBG O2 Sat (Calc) 76 H VBG Base Excess -4 L POC Mix VBG pCO2 Pt Tmp 27.3 L O2 Delivery Device Room Air Radiography Diagnostic Testing: Radiology Impression Chest X-Ray 02/04/25 19:02 IMPRESSION: Prominent interstitial markings with enlarged cardiomediastinal silhouette, as can be seen with cardiogenic pulmonary edema. Reading Location: [id number] Chest/Abdomen/Pelvis CT 02/04/25 20:37 IMPRESSION: 1. Trace pleural effusions, [id number]-veowxps-qkjt-left. 2. Gallbladder wall thickening, without radiodense stones. This is a nonspecific finding and could be related to fluid overload. Consider ultrasound if patient has associated symptoms. 3. Abdominal aortic aneurysm measuring 4.5 cm. 4. Solid pulmonary nodule in the right middle lobe measuring 4 mm, consider CT chest in 12 months if patient is at high risk for malignancy per Fleischner society guidelines. Reading Location: [id number] Gallbladder Ultrasound 02/04/25 22:47 IMPRESSION: 1. Limited evaluation due to incomplete distention of the gallbladder. No radiodense stones are seen. There is mild wall thickening, similar to same day CT. 2. Findings suggestive of hepatic steatosis. Reading Location: [id number] Rhythm Strip Rhythm Strip: Sinus Rhythm Rate: 100 Ectopy: PVC(s) Physical Exam Narrative POCUS: Indication shock. IVC dilated and noncompressible with respirations. Overall global cardiomyopathy no vegetation noted on valves. Pulmonary exam shows B-lines anteriorly as well as laterally. Kidneys visualized and grossly appeared normal bilaterally. Const alert and no apparent distress HEENT head/scalp atraumatic and moist oral mucous membranes Resp normal respiratory effort, no retractions, no use of accessory muscles and clear to auscultation bilaterally Cardio regular rate, regular rhythm, S1 normal heart sound and S2 normal heart sound GI normal to inspection, nondistended, normoactive bowel sounds, soft to palpation, non-tender and non-distended Extremity normal to inspection and full ROM Neuro Sensorium / Orientation: awake and alert Psych affect normal Assessment & Plan Assessment/Plan (1) Acute hypoxic respiratory failure: PLAN: 2/2 CHF. On CPAP. Wean oxygen as tolerated. On empiric abx with pip/tazo (2) CHF exacerbation: PLAN: EF 35% from 12/12/24. Repeat echo ordered. On IV furosemide no ACEi/ARB given shock. Cards consult. (3) Shock: PLAN: unclear type: septic v cardiogenic. on norepi (4) Transaminitis: PLAN: thickening noted on CT and US. Unclear significance at this time. may be hepatic congestion. continue to monitor (5) Thrombocytopenia: PLAN: acute on chronic, unclear significance. monitor for now. (6) Elevated troponin: PLAN: Unclear type at this time. Troponins 108 to 111 to 114. May be skewed upwards given MICHELLE. on ASA, clopidogrel, PLAN: Plan BPH: tamsulosin BTE prophylaxis: anticoagulated with heparin. Charges/Coding Visit Charges Inpatient E&M: 05407 [facility] Hosp L3
[2025-02-05] MEDS: Ondansetron 4 MG/2 ML Vial IV (07:32)
[2025-02-05] MEDS: Amiodarone 150 MG in Dextrose 5%-Water (100mL Bag) 100 ML 600 MG IV BOLUS (09:01)
[2025-02-05] MEDS: Amiodarone 360 MG in Dextrose 5% Viaflo Bag 192.8 ML 33.3 MG CONT INF (09:38)
[2025-02-05] MEDS: Acetaminophen 325 MG Tablet 650 MG PO ×2 (09:39→21:50)
[2025-02-05] MEDS: Potassium Chloride 10mEq/100mL 10 MEQ/100 ML IV.SOLN. 100 MEQ IV BOLUS (10:01)
--- NOTE | 2025-02-05 12:14 | CASEMGMT ---
RN RACHELE Assessment Face to Face with patient for initial transition planning/care coordination assessment. Pt is currently on the PAP machine and is sleeping. Pt at bedside and willing to help answer this RN CM questions for initial assessment. Care providers, pharmacy, and demographics verified. 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 Cane. Grab bars. BP Machine. Pt has a scale to weigh himself regarding his CHF. HHC/SNF: Report HHC hx in 2001. Denies SNF hx Pt?s goal: TBD Plan: TBD. At this time, the pt's states that it is too early to tell what the pt will need or want at the time of DC. Anticipate the need for further therapy services and/or potential oxygen needs. PT/OT are ordered and pending. Pt denies further questions or concerns at this time. RACHELE and SW to follow. Denisse Siegel RN, CM
[2025-02-05] MEDS: Amiodarone 360 MG in Dextrose 5% Viaflo Bag 192.8 ML 16.7 MG CONT INF (16:04)
--- NOTE | 2025-02-05 20:37 | CON.PCM.CA_ITS ---
Assessment & Plan Assessment/Plan (1) Multifocal PVCs: PLAN: Patient is noted to have multifocal premature ventricular complexes in the setting of a low ejection fraction my recommendation is to start amiodarone and then transition him from IV to p.o. amiodarone. Depending on the findings further recommendations will be made. His ejection fraction remains stable at 35%. (2) H/O coronary artery bypass surgery: PLAN: He is status post coronary bypass surgery as noted above. I do not detect that there is any evidence of ischemia at this time. (3) Chronic systolic (congestive) heart failure: PLAN: He does have chronic systolic heart failure. He was treated with intravenous diuresis and appears to have diuresed effectively. He can be switched over to oral agents at this time. When he is finally off the pressors he can also be put on low-dose beta-mohit He will continue with a SGLT2 inhibitor. (4) History of aortic valve replacement with bioprosthetic valve: PLAN: He is status post aortic valve replacement with a bioprosthetic valve this appears to be stable based on his last echocardiogram. HPI Consult Data Date of Consult: 02/05/25 HPI Narrative HPI Narrative: JOSELUIS VARGAS, is a 85 M who presents to the emergency room after feeling significantly malaised. He had previously been seen at the [facility] offices early on the . He has a history of CAD s/p PCI to ostial, proximal, and mid RCA on 11/22/2017 at [facility], previous CABG with ALSTON to LAD at [facility] in 1995 and redo CABG at [facility] in 2001 with SVG to LCX and SVG to RPDA, aortic valve stenosis s/p TAVR on 12/27/2017 at [facility] with #26mm Buckley Jennifer S3 valve, mitral valve regurgitation, and hyperlipidemia. He underwent an echocardiogram in February 2022, which demonstrated a reduced ejection fraction of 35%. Which led him to a cardiac catheterization which demonstrated menominee multivessel coronary artery disease, his ALSTON to LAD was patent, he did have an 85% stenosis in his SVG to OM1, and chronically occluded SVG to RCA. He underwent PCI with a drug-eluting stent to his SVG to OM1. Repeat echocardiogram in July 2022 showed ejection fraction of 45%. He was evaluated at [facility] for CHF exacerbation in December 2024. Echocardiogram showed LV function 35%. Aortic valve appeared stable. He was discharged on Lasix 20 mg p.o. daily. He subsequently presented back to the emergency room out of the abundance of caution his blood pressure was noted to be low he was admitted to the intensive care unit started on pressor agents as well as antibiotics. He developed frequent premature ventricular complexes and cardiology was called for further evaluation and management an echocardiogram was performed this morning which demonstrated reduced ejection fraction of approximately 30 to 35%. He denied any significant chest pain or paroxysmal nocturnal dyspnea or pedal edema. [facility] Medical History GI treated with BiPAP Valvular heart disease HTN (hypertension) CAD (coronary artery disease) HFrEF (heart failure with reduced ejection fraction) Daytime hypersomnolence Nonrheumatic aortic (valve) stenosis Hyperlipidemia Atherosclerotic heart disease of menominee coronary artery without angina pectoris Atherosclerosis of coronary artery bypass graft without angina pectoris (~03/29/22) Home Medications ?Medication ?Instructions ?Recorded ?Last Taken ?Type vitamin E 200 unit capsule 200 unit PO DAILY 09/14/20 Unknown History aspirin 81 mg chewable tablet 81 mg PO Q OTHER DAY 03/29/22 History tamsulosin 0.4 mg capsule (Flomax) 0.4 mg PO QHS #30 c aps 01/27/22 Unknown Rx lisinopril 5 mg tablet 2.5 mg PO DAILY 07/14/23 Unk nown History clopidogrel 75 mg tablet 75 mg PO Q OTHER DAY #45 tab s 11/12/24 Unknown Rx dapagliflozin propanediol 10 mg 10 mg PO heart 5 Unknown History tablet dapagliflozin propanediol 10 mg 10 mg PO DAILY heart 0 02/05/25 Unknown History tablet (Farxiga) furosemide 40 mg tablet 80 mg PO QDAY 02/05/25 Unkno wn History Allergy/AdvReac Type Severity Reaction Status Date / Time No Known Allergies Allergy Verified 02/04/25 18:00 Family History Father Myocardial infarction CVA (cerebral vascular accident) Mother CHF (congestive heart failure) Brother CAD (coronary artery disease) Cancer leukemia Surgical History Presence of coronary artery bypass graft stent (~03/29/22) History of arthroplasty of knee H/O coronary artery bypass surgery (~01/2002) History of left inguinal hernia repair (~1961) Presence of stent in coronary artery Postsurgical percutaneous transluminal coronary angioplasty (PTCA) status History of aortic valve replacement with bioprosthetic valve (~12/27/17) Social History adopted: No household members: spouse housing: house number of children: 6 current occupational status: employed current occupation: [employer] current occupational exposures/hazards: No pets and animals: Yes (chickens 2 and 1 horse) leisure activities: hunting and fishing history of recent travel: No Smoking Status: Never smoker alcohol intake: never substance use type: does not use caffeine: No what type of physical activity do you participate in: walking frequency: 5-6 times per week duration: 30-45 minutes/day seatbelt use: sometimes do you feel safe at home: Yes ROS Constitutional Constitutional: Reports anorexia, malaise and weakness; Denies fever(s) or weight loss Eyes Eyes: Reports systems reviewed and no addt'l complaints, except as documented ENT HEENT: Reports systems reviewed and no addt'l complaints, except as documented Cardiovascular Cardiovascular: Denies chest pain at rest, chest pain with activity, dyspnea at rest, dyspnea on exertion, edema, palpitations or paroxysmal nocturnal dyspnea Respiratory/Chest Respiratory/Chest: Denies dyspnea on exertion, productive cough, shortness of breath at rest or shortness of breath with exertion Gastrointestinal Gastrointestinal: Denies change in bowel habits, nausea, vomiting or weight changes Genitourinary Genitourinary: Denies difficulty urinating Musculoskeletal Musculoskeletal: Denies joint stiffness or muscle weakness Integumentary Integumentary: Denies lesions Neurologic Neurologic: Denies dizziness or syncope Psychiatric Psychiatric: Denies anxiety Endocrine Endocrinology: Denies excessive sweating or fatigue Hematologic/Lymphatic Hematologic/Lymphatic: Denies anemia Allergic/Immunologic Allergic/Immunologic: Denies seasonal rhinorrhea Physical Exam Const alert and no apparent distress HEENT head/scalp atraumatic and moist oral mucous membranes Resp normal respiratory effort, no retractions, no use of accessory muscles and clear to auscultation bilaterally Cardio regular rate, regular rhythm, S1 normal heart sound and S2 normal heart sound GI normal to inspection, nondistended, normoactive bowel sounds, soft to palpation, non-tender and non-distended Extremity normal to inspection and full ROM Neuro Sensorium / Orientation: awake and alert Psych affect normal Risk Stratification Risk Stratification Applicable: No Objective Data Vital Signs: Vital Signs Temp Pulse Resp BP Pulse Ox O2 Del Method O2 Flow Rate 99.8 F H 80 19 H 120/90 H 95 Nasal Cannula 2 02/05/25 19:00 02/05/25 19:00 02/05/25 19:00 02/05/25 19:00 02/05/25 19:00 02/05/25 19:00 02/05/25 19:00 FiO2 28 02/05/25 12:10 Oxygen Flow Rate (L/min) 2 Oxygen Delivery Method Nasal Cannula Weight: 186 lb 1.122 oz Body Mass Index (BMI) 30.0 Intake & Output: Intake and Output for Last 24 Hours 02/03/25 02/04/25 02/05/25 23:59 23:59 23:59 Intake Total 2500 / 2500 852.56 / 852.56 Output Total 3545 / 3545 Balance 2500 / 2500 -2692.44 / -2692.44 Lab / Micro Data 02/05/25 04:47 02/05/25 04:47 Labs: Laboratory Results - last 24 hr 02/04/25 18:30: Plt Count 82 L, MPV 11.4, Differential Comment SCANNED, Platelet Estimate MOD 02/04/25 18:58: Urine RBC 0-5 SEEN, Urine WBC 0 SEEN, Ur Squamous Epith Cells 0- 5 SEEN, Ur Renal Epithelial Cell 0-5 SEEN, Amorphous Sediment 1+, Urine Bacteria 2+, Urine Mucus 0 SEEN 02/04/25 19:57: Troponin T Hi Sens 2 Hr 111 H* 02/04/25 21:56: Troponin T Hi Sens 4Hr 114 H*, Procalcitonin 1.39 H 02/05/25 04:47: WBC 4.6, RBC 3.63 L, Hgb 10.7 L, Hct 31.5 L, MCV 86.8, MCH 29.5, MCHC 34.0, RDW Std Deviation 45.0 H, RDW Coeff of Jenaro 14.0, Plt Count 86 L, MPV 10.9, Immature Gran % (Auto) 0.400, Neut % (Auto) 73.9 H, Lymph % (Auto) 16.4 L, [place] % (Auto) 9.1, Eos % (Auto) 0.0, Baso % (Auto) 0.2, Absolute Neuts (auto) 3.4, Absolute Lymphs (auto) 0.76 L, Nucleated RBC % 0, Sodium 130 L, Potassium 3.5, Chloride 96 L, Carbon Dioxide 18.7 L, Anion Gap 15, BUN 50 H, Creatinine 1.82 H, Estim Creat Clear Calc 30.24 L, Est GFR (MDRD) Non-Af 36 L, B UN/Creatinine Ratio 27.3 H, Glucose 121 H, Calcium 8.2, Total Bilirubin 0.75, A ST 93 H, ALT 86 H, Alkaline Phosphatase 144 H, Total Protein 5.9, Albumin 3.4, Globulin 2.6, Albumin/Globulin Ratio 1.3, Triglycerides 80, Cholesterol 224 H, LDL Cholesterol, Calc 161, VLDL Cholesterol 16, HDL Cholesterol 47, Cholesterol/HDL Ratio 4.74, TSH 1.900 Micro: Microbiology 02/05/25 10:00 Sputum, Expectorated/Coughed Gram Stain - Final 02/05/25 03:15 Mucosa - Nasopharyngeal Respiratory Panel (PCR) - Final Rhythm Strip Rhythm Strip: Sinus Rhythm Rate: 100 Ectopy: PVC(s) Cardiology Labs/Tests 02/04/25 18:30: Plt Count 82 L, MPV 11.4 02/04/25 18:58: Urine RBC 0-5 SEEN, Urine WBC 0 SEEN 02/05/25 04:47: WBC 4.6, RBC 3.63 L, Hgb 10.7 L, Hct 31.5 L, MCV 86.8, MCH 29.5, MCHC 34.0, Plt Count 86 L, MPV 10.9, Immature Gran % (Auto) 0.400, Neut % (Auto) 73.9 H, Lymph % (Auto) 16.4 L, [place] % (Auto) 9.1, Eos % (Auto) 0.0, Baso % (Auto) 0.2, Absolute Neuts (auto) 3.4, Nucleated RBC % 0, Sodium 130 L, Potassium 3.5, Chloride 96 L, Carbon Dioxide 18.7 L, Anion Gap 15, BUN 50 H, C reatinine 1.82 H, Est GFR (MDRD) Non-Af 36 L, BUN/Creatinine Ratio 27.3 H, G lucose 121 H, Calcium 8.2, Total Bilirubin 0.75, Triglycerides 80, Cholesterol 224 H, VLDL Cholesterol 16, HDL Cholesterol 47, Cholesterol/HDL Ratio 4.74 Rhythm: EKG: ECHO: Stress Test: Cardiac Cath: PCI: CT Surgery: Holter monitor: EPS: PPM: CXR: Chest CT Scan: Radiography Diagnostic Testing: Radiology Impression Chest/Abdomen/Pelvis CT 02/04/25 20:37 IMPRESSION: 1. Trace pleural effusions, awbbb-[id number]-[id number]-left. 2. Gallbladder wall thickening, without radiodense stones. This is a nonspecific finding and could be related to fluid overload. Consider ultrasound if patient has associated symptoms. 3. Abdominal aortic aneurysm measuring 4.5 cm. 4. Solid pulmonary nodule in the right middle lobe measuring 4 mm, consider CT chest in 12 months if patient is at high risk for malignancy per Fleischner society guidelines. Reading Location: [id number] Gallbladder Ultrasound 02/04/25 22:47 IMPRESSION: 1. Limited evaluation due to incomplete distention of the gallbladder. No radiodense stones are seen. There is mild wall thickening, similar to same day CT. 2. Findings suggestive of hepatic steatosis. Reading Location: [id number] Echocardiogram 02/05/25 00:02 Interpretation Summary There is moderate global hypokinesis of the left ventricle. Mildly dilated left ventricle. The left ventricular ejection fraction is 25 %. Bioprosthetic aortic valve. Contrast injection was performed. Ordering Physician: Rea Cancino Referring Physician: Rea Cancino Performed By: Tori Daniel RDCS
[2025-02-05] MEDS: Tamsulosin HCl 0.4 MG Capsule PO (21:49)
[2025-02-06] VITALS (12 sets, daily range): BP systolic 80–118; BP diastolic 43–69; PULSE 64–77; RESP 12–20; TEMP 36.1–37.5; O2SAT 97–100; BMI 30.4
[2025-02-06] MEDS: Amiodarone 360 MG in Dextrose 5% Viaflo Bag 192.8 ML 16.7 MG CONT INF (06:39)
[2025-02-06 06:48] LABS: Absolute Lymphocyte Count 1.26 X10^3/uL (0.83-4.51); Absolute Neutrophil Count 3.7 X10^3/uL (2.0-7.7); Basophil# 0.01 X10^3/uL; Basophil% 0.2 % (0-1); Hematocrit 27.5 % (40-54); Hemoglobin 9.1 g/dL (13.0-16.5); Lymphocyte # 1.26 X10^3/ul (0.83-4.51); Mean Corp Hgb Conc 33.1 g/dL (32-36); Mean Corpuscular Hgb 29.3 pg (27.0-32.0); Mean Corpuscular Volume 88.4 fL (80-94); Mean Platelet Vol. 12.1 fl (6.2-12.0); Monocyte# 0.45 X10^3/uL; Monocyte% 8.2 % (0-10); NRBC Flagged by Analyzer 0 % (0-5); Neutrophil # 3.74 X10^3/uL (2.7-7.7); Neutrophil % 68.2 % (47-70); POSITIVE COUNT YES; POSITIVE MORPHOLOGY YES; Platelet Count 70 K/mm3 (150-450); RBC Distribution Width CV 14.4 % (11.6-14.6); RBC Distribution Width SD 46.2 fl (35.1-43.9); Red Blood Count 3.11 M/mm3 (4.6-6.2); White Blood Count 5.5 K/mm3 (4.4-11.0)
[2025-02-06 06:53] LABS: Differential Indicated SCAN CRITERIA MET
--- NOTE | 2025-02-06 07:05 | PN.HOSP_ITS ---
Reason for Visit Reason for Visit: Diagnoses Thrombocytopenia, unspecified (02/04/25) Ventricular premature depolarization (02/04/25) Chronic systolic (congestive) heart failure (02/04/25) Heart failure, unspecified (02/04/25) Acute respiratory failure with hypoxia (02/04/25) Shock, unspecified (02/04/25) Elevation of levels of liver transaminase levels (02/04/25) Other specified abnormal findings of blood chemistry (02/04/25) Presence of aortocoronary bypass graft (02/04/25) Presence of xenogenic heart valve (02/04/25) Subjective Subjective Feeling better. Objective Data Objective Data Vital Signs: Vital Signs Temp Pulse Resp BP Pulse Ox O2 Del Method O2 Flow Rate 37.5 C H 66 14 80/43 L 100 Nasal Cannula 2 02/06/25 00:28 02/06/25 00:28 02/06/25 00:28 02/06/25 00:28 02/06/25 00:28 02/06/25 00:28 02/06/25 00:28 FiO2 28 02/06/25 00:00 Oxygen Flow Rate (L/min) 2 Oxygen Delivery Method Nasal Cannula Weight: 85.4 kg Body Mass Index (BMI) 30.4 Intake & Output: Intake and Output for Last 24 Hours 02/04/25 02/05/25 02/06/25 23:59 23:59 23:59 Intake Total 2500 / 2500 952.56 / 952.56 182.59 / 182.59 Output Total 3545 / 3545 700 / 700 Balance 2500 / 2500 -2592.44 / -2592.44 -517.41 / -517.41 Lab / Micro Data 02/06/25 06:36 02/06/25 06:36 Labs: Laboratory Results - last 24 hr 02/06/25 06:36: WBC 5.5, RBC 3.11 L, Hgb 9.1 L, Hct 27.5 L, MCV 88.4, MCH 29.3, MCHC 33.1, RDW Std Deviation 46.2 H, RDW Coeff of Jenaro 14.4, Plt Count 70 L, MPV 12.1 H, Immature Gran % (Auto) 0.400, Neut % (Auto) 68.2, Lymph % (Auto) 23.0, [place] % (Auto) 8.2, Eos % (Auto) 0.0, Baso % (Auto) 0.2, Absolute Neuts (auto) 3.7, Absolute Lymphs (auto) 1.26, Nucleated RBC % 0 Micro: Microbiology 02/05/25 10:00 Sputum, Expectorated/Coughed Gram Stain - Final 02/05/25 03:15 Mucosa - Nasopharyngeal Respiratory Panel (PCR) - Final Radiography Diagnostic Testing: Radiology Impression Echocardiogram 02/05/25 00:02 Interpretation Summary There is moderate global hypokinesis of the left ventricle. Mildly dilated left ventricle. The left ventricular ejection fraction is 25 %. Bioprosthetic aortic valve. Contrast injection was performed. Ordering Physician: Rea Cancino Referring Physician: Rea Cancino Performed By: Tori Daniel RDCS Rhythm Strip Rhythm Strip: Sinus Rhythm Rate: 100 Ectopy: PVC(s) Physical Exam Const alert and no apparent distress Constitutional Narrative: less anxious today. HEENT head/scalp atraumatic and moist oral mucous membranes Resp normal respiratory effort, no retractions, no use of accessory muscles and clear to auscultation bilaterally Cardio regular rate, regular rhythm, S1 normal heart sound and S2 normal heart sound GI normal to inspection, nondistended, normoactive bowel sounds, soft to palpation, non-tender and non-distended Extremity normal to inspection and full ROM Neuro Sensorium / Orientation: awake and alert Assessment & Plan Assessment/Plan (1) Acute hypoxic respiratory failure: PLAN: improved. 2/2 CHF. Wean oxygen as tolerated. On empiric abx with pip/tazo (2) CHF exacerbation: PLAN: EF 35% from 12/12/24. Repeat echo ordered. On IV furosemide no ACEi/ARB given shock. Cards following. (3) Shock: PLAN: suspect combination of septic and cardiogenic. on norepi unclear septic source. Possible GB. (4) Transaminitis: PLAN: thickening GB wall noted on CT and US. Unclear significance at this time. may be hepatic congestion. continue to monitor Check HIDA scan. (5) Thrombocytopenia: PLAN: acute on chronic, unclear significance. monitor for now. (6) Elevated troponin: PLAN: Unclear type at this time. Troponins 108 to 111 to 114. May be skewed upwards given MICHELLE. on ASA, clopidogrel Seen by cardiology. Not felt to have evidence of ischemia at this time. (7) PVC (premature ventricular contraction): PLAN: Frequent PVCs amiodarone gtt. PLAN: Plan BPH: tamsulosin VTE prophylaxis: SCDs Greater than 60 minutes, most of which was discussing with patient's family extensively at bedside. Explained no clear source of infection at this time. Discussed upon discharge need for fluid restriction upon discharge to minimize volume overload. Charges/Coding Visit Charges Inpatient E&M: 77051 Subs Hosp L3
[2025-02-06 07:27] LABS: Phosphorus 3.3 mg/dL (2.7-4.5)
[2025-02-06 07:29] LABS: Anion Gap 12 (5-15); BUN 38 mg/dL (4-19); BUN/Creat Ratio 25.9 RATIO (10-20); Calcium,Total 6.7 mg/dL (7.6-11.0); Carbon Dioxide 15.5 mmol/L (21.0-32.0); Chloride 106 mmol/L (98-108); Creatinine, Serum 1.47 mg/dL (0.70-1.20); EST Glomerular Filtration Rate 46 (>60); Estimated Creatinine Clearance 37.64 ml/min (50-250); Glucose 97 mg/dL (70-99); Sodium Level 133 mmol/L (133-145)
[2025-02-06 07:42] LABS: Atypical Lymphocyte 1+ %
--- NOTE | 2025-02-06 07:59 | PN.CC_ITS ---
Assessment & Plan Assessment/Plan (1) Acute hypoxic respiratory failure: PLAN: Plan RECOMMENDATIONS: 1. Continue to wean supplemental oxygen to maintain saturations at or above 90%. 2. Antimicrobials, pending finalized culture results. 3. Medical management of arrhythmia and cardiomyopathy per cardiology recommendations. 4. Encourage incentive spirometer use and mobilize patient as tolerated. 5. Will sign off from a critical care perspective. Please call with any additional questions. IMPRESSIONS: 1. Acute hypoxemic respiratory failure Secondary to acute decompensated congestive heart failure, which has responded to diuresis and noninvasive positive pressure ventilatory support. The patient's respiratory status is significantly improved, requiring minimal supplemental O2 via nasal cannula. 2. Undifferentiated shock Differential would include septic versus cardiogenic etiology. Infectious workup is still pending. However, the patient has been weaned from vasopressor support and remains hemodynamically stable. Recommend continuing antimicrobials, pending finalized culture data. 3. Obstructive sleep apnea/BPH/obesity Complicates care, management, recovery and prognosis. Continue supportive measures as noted above. This note was generated with [employer] dictation software. It may contain incorrect words, spelling, and punctuation that were not noted in checking the note before signing. Subjective Subjective The patient was seen and examined at the bedside this morning. Events from the last 24 hours have been reviewed. The patient is currently afebrile, hemodynamically stable and maintaining appropriate oxygen saturations on 3 L/min via nasal cannula. The patient is currently in normal sinus rhythm. He was weaned off of Levophed completely yesterday. White blood cell count is normal. Hemoglobin is stable. Creatinine has improved to 1.47. Objective Data Objective Data The patient's most recent lab work, culture data and imaging studies have all been personally reviewed. Surface echocardiogram demonstrated a mildly dilated LV with an ejection fraction of 25% and moderate global hypokinesis of the LV. Blood urine and sputum cultures are pending. Vital Signs: Vital Signs Temp Pulse Resp BP Pulse Ox O2 Del Method O2 Flow Rate 99.5 F H 66 14 80/43 L 100 Nasal Cannula 2 02/06/25 00:28 02/06/25 00:28 02/06/25 00:28 02/06/25 00:28 02/06/25 00:28 02/06/25 00:28 02/06/25 00:28 FiO2 28 02/06/25 00:00 Oxygen Flow Rate (L/min) 2 Oxygen Delivery Method Nasal Cannula Weight: 188 lb 4.396 oz Body Mass Index (BMI) 30.4 Intake & Output: Intake and Output for Last 24 Hours 02/04/25 02/05/25 02/06/25 23:59 23:59 23:59 Intake Total 2500 / 2500 952.56 / 952.56 182.59 / 182.59 Output Total 3545 / 3545 700 / 700 Balance 2500 / 2500 -2592.44 / -2592.44 -517.41 / -517.41 Lab / Micro Data Attestation: I reviewed the patient's lab results. 02/06/25 06:36 02/06/25 06:36 Labs: Laboratory Results - last 24 hr 02/06/25 06:36: WBC 5.5, RBC 3.11 L, Hgb 9.1 L, Hct 27.5 L, MCV 88.4, MCH 29.3, MCHC 33.1, RDW Std Deviation 46.2 H, RDW Coeff of Jenaro 14.4, Plt Count 70 L, MPV 12.1 H, Immature Gran % (Auto) 0.400, Neut % (Auto) 68.2, Lymph % (Auto) 23.0, [place] % (Auto) 8.2, Eos % (Auto) 0.0, Baso % (Auto) 0.2, Absolute Neuts (auto) 3.7, Absolute Lymphs (auto) 1.26, Nucleated RBC % 0, Atypical Lymphocytes 1+, Sodium 133, Potassium 4.0, Chloride 106, Carbon Dioxide 15.5 L, Anion Gap 12, B UN 38 H, Creatinine 1.47 H, Estim Creat Clear Calc 37.64 L, Est GFR (MDRD) Non- Af 46 L, BUN/Creatinine Ratio 25.9 H, Glucose 97, Calcium 6.7 L, Phosphorus 3.3, Magnesium 2.0 Micro: Microbiology 02/05/25 10:00 Sputum, Expectorated/Coughed Gram Stain - Final 02/05/25 03:15 Mucosa - Nasopharyngeal Respiratory Panel (PCR) - Final Radiography Diagnostic Testing: Radiology Impression Echocardiogram 02/05/25 00:02 Interpretation Summary There is moderate global hypokinesis of the left ventricle. Mildly dilated left ventricle. The left ventricular ejection fraction is 25 %. Bioprosthetic aortic valve. Contrast injection was performed. Ordering Physician: Rea Cancino Referring Physician: Rea Cancino Performed By: Tori Daniel RDCS Rhythm Strip Rhythm Strip: Sinus Rhythm Rate: 100 Ectopy: PVC(s) Physical Exam Const alert and no apparent distress General Appearance: cooperative HEENT normocephalic, head/scalp atraumatic and moist oral mucous membranes Eyes PERRL, EOMs intact bilaterally and conjunctivae normal Neck supple General: trachea midline Chest inspection of chest normal Resp normal respiratory effort Auscultation: Negative for rales, rhonchi or wheezes Cardio regular rate and regular rhythm GI normal to inspection, nondistended, normoactive bowel sounds Extremity no clubbing, cyanosis or edema Skin no rashes or lesions noted Neuro CN's II-XII intact bilaterally, moves all extremities and no focal motor deficits Psych cooperative and affect normal Charges/Coding Visit Charges Inpatient E&M: 85663 Subs Hosp L2
--- NOTE | 2025-02-06 08:39 | PN.CARD_ITS ---
Subjective Subjective Doing well. Denies any complaints. Off vasopressors. Running low-grade fever this morning. Objective Data Vital Signs: Vital Signs Temp Pulse Resp BP Pulse Ox O2 Del Method O2 Flow Rate 99.5 F H 66 14 80/43 L 100 Nasal Cannula 2 02/06/25 00:28 02/06/25 00:28 02/06/25 00:28 02/06/25 00:28 02/06/25 00:28 02/06/25 00:28 02/06/25 00:28 FiO2 28 02/06/25 00:00 Oxygen Flow Rate (L/min) 2 Oxygen Delivery Method Nasal Cannula Weight: 188 lb 4.396 oz Body Mass Index (BMI) 30.4 Intake & Output: Intake and Output for Last 24 Hours 02/04/25 02/05/25 02/06/25 23:59 23:59 23:59 Intake Total 2500 / 2500 952.56 / 952.56 182.59 / 182.59 Output Total 3545 / 3545 700 / 700 Balance 2500 / 2500 -2592.44 / -2592.44 -517.41 / -517.41 Lab / Micro Data Attestation: I reviewed the patient's lab results. 02/06/25 06:36 02/06/25 06:36 Labs: Laboratory Results - last 24 hr 02/06/25 06:36: WBC 5.5, RBC 3.11 L, Hgb 9.1 L, Hct 27.5 L, MCV 88.4, MCH 29.3, MCHC 33.1, RDW Std Deviation 46.2 H, RDW Coeff of Jenaro 14.4, Plt Count 70 L, MPV 12.1 H, Immature Gran % (Auto) 0.400, Neut % (Auto) 68.2, Lymph % (Auto) 23.0, [place] % (Auto) 8.2, Eos % (Auto) 0.0, Baso % (Auto) 0.2, Absolute Neuts (auto) 3.7, Absolute Lymphs (auto) 1.26, Nucleated RBC % 0, Atypical Lymphocytes 1+, Sodium 133, Potassium 4.0, Chloride 106, Carbon Dioxide 15.5 L, Anion Gap 12, B UN 38 H, Creatinine 1.47 H, Estim Creat Clear Calc 37.64 L, Est GFR (MDRD) Non- Af 46 L, BUN/Creatinine Ratio 25.9 H, Glucose 97, Calcium 6.7 L, Phosphorus 3.3, Magnesium 2.0 Micro: Microbiology 02/05/25 10:00 Sputum, Expectorated/Coughed Gram Stain - Final 02/05/25 03:15 Mucosa - Nasopharyngeal Respiratory Panel (PCR) - Final Rhythm Strip Rhythm Strip: Sinus Rhythm Rate: 66 Cardiology Labs/Tests 02/06/25 06:36: WBC 5.5, RBC 3.11 L, Hgb 9.1 L, Hct 27.5 L, MCV 88.4, MCH 29.3, MCHC 33.1, Plt Count 70 L, MPV 12.1 H, Immature Gran % (Auto) 0.400, Neut % (Auto) 68.2, Lymph % (Auto) 23.0, [place] % (Auto) 8.2, Eos % (Auto) 0.0, Baso % (Auto) 0.2, Absolute Neuts (auto) 3.7, Nucleated RBC % 0, Sodium 133, Potassium 4.0, Chloride 106, Carbon Dioxide 15.5 L, Anion Gap 12, BUN 38 H, Creatinine 1.47 H, Est GFR (MDRD) Non-Af 46 L, BUN/Creatinine Ratio 25.9 H, Glucose 97, C alcium 6.7 L, Phosphorus 3.3, Magnesium 2.0 Rhythm: EKG: ECHO: Stress Test: Cardiac Cath: PCI: CT Surgery: Holter monitor: EPS: PPM: CXR: Chest CT Scan: Radiography Diagnostic Testing: Radiology Impression Echocardiogram 02/05/25 00:02 Interpretation Summary There is moderate global hypokinesis of the left ventricle. Mildly dilated left ventricle. The left ventricular ejection fraction is 25 %. Bioprosthetic aortic valve. Contrast injection was performed. Ordering Physician: Rea Cancino Referring Physician: Rea Cancino Performed By: Tori Daniel RDCS Physical Exam Narrative Comfortable. No apparent distress. Heart sounds 1 and 2 noted. Chest clear to auscultation bilaterally. Alert oriented x 3. No ankle edema. Assessment & Plan Assessment/Plan (1) Multifocal PVCs: PLAN: Resolved. In the setting of acute illness with shock and chronic LV systolic dysfunction. I would recommend discontinuing the amiodarone and monitoring him. If his heart rate improves, and blood pressure remains stable, then will start on beta-blockers. (2) H/O coronary artery bypass surgery: PLAN: History of CABG. Continue aspirin. Clopidogrel. (3) Chronic systolic (congestive) heart failure: PLAN: Furosemide. Start on ACEI and beta-blockers if hemodynamically remained stable. (4) History of aortic valve replacement with bioprosthetic valve: PLAN: Monitor. (5) Abdominal aortic aneurysm: PLAN: 4.5 cm abdominal aortic aneurysm reported on CT scan. For periodic ultrasound surveillance. (6) Thrombocytopenia: PLAN: Monitor. As per internal medicine/critical care. (7) Shock: PLAN: Likely combination distributive and cardiogenic. Improved. Off vasopressor agents.
[2025-02-06] MEDS: Aspirin 81 MG TAB.CHEW PO (09:37)
[2025-02-06] MEDS: Piperacil/Tazobactam 3.375 GM in 0.9% Normal Saline (50mL MB+) 50 ML IV ×3 (09:37→21:56)
[2025-02-06] MEDS: Furosemide 40 MG Tablet PO (09:37)
[2025-02-06] MEDS: Clopidogrel Bisulfate 75 MG Tablet PO (09:37)
[2025-02-06] MEDS: Pantoprazole Sodium 40 MG in 0.9% Normal Saline (100mL MB+) 100 ML 330 MG IV ×2 (09:38→20:51)
--- NOTE | 2025-02-06 12:47 | CASEMGMT ---
SEBASTIAN JEFFREY into pt room, pt sitting up in chair on RA. Discussed with pt how he felt he did with therapy, he states pretty good. Discussed HHC at home for therapy and SN. Pt states he had a therapist in the past that they hired who worked indep. Pt reports she was very helpful to him but he feels she is retired now. Patient was provided a list of HHC providers including quality and resource use data and consistent with the patient?s preferred geographic region, medical needs, and insurance network were provided [facility] [place] [place] Pt states his family will be back this evening and he will let them look at this. He is aware SEBASTIAN JEFFREY to follow up tomorrow for this decision. Discussed if pt needs home oxygen local in network companies, pt chose [employer]. Pt states that he has generators for oxygen if needed. Pt states he most recently has been using a cane at home but does have a walker.
[2025-02-06] MEDS: Tamsulosin HCl 0.4 MG Capsule PO (20:58)
[2025-02-06] MEDS: 0.9% Saline Lock 10 ML Syringe IV (20:58)
[2025-02-07 02:55] VITALS: BP 94/58; PULSE 60; RESP 17; TEMP 36.7; O2SAT 99
[2025-02-07 03:00] VITALS: PULSE 62
[2025-02-07 04:44] VITALS: BMI 31.7
[2025-02-07] MEDS: Piperacil/Tazobactam 3.375 GM in 0.9% Normal Saline (50mL MB+) 50 ML IV ×3 (06:05→22:46)
[2025-02-07 07:38] LABS: Absolute Lymphocyte Count 1.66 X10^3/uL (0.83-4.51); Basophil# 0.02 X10^3/uL; Basophil% 0.4 % (0-1); Eosinophil# 0.06 X10^3/uL; Eosinophils% 1.1 % (0-5); Hematocrit 28.5 % (40-54); Hemoglobin 9.8 g/dL (13.0-16.5); Lymphocyte # 1.66 X10^3/ul (0.83-4.51); Lymphocyte % 31.2 % (19-41); Mean Corp Hgb Conc 34.4 g/dL (32-36); Mean Corpuscular Hgb 29.3 pg (27.0-32.0); Mean Corpuscular Volume 85.3 fL (80-94); Monocyte# 0.52 X10^3/uL; Monocyte% 9.8 % (0-10); NRBC Flagged by Analyzer 0 % (0-5); Neutrophil # 3.03 X10^3/uL (2.7-7.7); Neutrophil % 56.9 % (47-70); POSITIVE COUNT YES; POSITIVE MORPHOLOGY YES; Platelet Count 91 K/mm3 (150-450); RBC Distribution Width CV 14.2 % (11.6-14.6); RBC Distribution Width SD 44.4 fl (35.1-43.9); Red Blood Count 3.34 M/mm3 (4.6-6.2); White Blood Count 5.3 K/mm3 (4.4-11.0)
[2025-02-07 08:03] LABS: Differential Indicated SCAN CRITERIA MET
--- NOTE | 2025-02-07 08:36 | PCM.PN.HOSP ---
Reason for Visit Reason for Visit: Diagnoses Thrombocytopenia, unspecified (02/04/25) Ventricular premature depolarization (02/04/25) Chronic systolic (congestive) heart failure (02/04/25) Heart failure, unspecified (02/04/25) Abdominal aortic aneurysm, without rupture, unspecified (02/04/25) Acute respiratory failure with hypoxia (02/04/25) Shock, unspecified (02/04/25) Elevation of levels of liver transaminase levels (02/04/25) Other specified abnormal findings of blood chemistry (02/04/25) Presence of aortocoronary bypass graft (02/04/25) Presence of xenogenic heart valve (02/04/25) Subjective Subjective Feeling well. No events overnight. Objective Data Objective Data Vital Signs: Vital Signs Temp Pulse Resp BP Pulse Ox O2 Del Method O2 Flow Rate 36.7 C 62 17 94/58 L 99 Room Air 3 02/07/25 02:55 02/07/25 03:00 02/07/25 02:55 02/07/25 02:55 02/07/25 02:55 02/07/25 02:55 02/06/25 10:00 FiO2 28 02/06/25 22:27 Oxygen Flow Rate (L/min) 3 Oxygen Delivery Method Room Air Weight: 89.3 kg Body Mass Index (BMI) 31.7 Intake & Output: Intake and Output for Last 24 Hours 02/05/25 02/06/25 02/07/25 23:59 23:59 23:59 Intake Total 952.56 / 952.56 1310.73 / 1310.73 50 / 50 Output Total 3545 / 3545 1100 / 1100 Balance -2592.44 / -2592.44 210.73 / 210.73 50 / 50 Lab / Micro Data 02/07/25 06:08 02/07/25 06:08 Labs: Laboratory Results - last 24 hr 02/07/25 06:08: WBC 5.3, RBC 3.34 L, Hgb 9.8 L, Hct 28.5 L, MCV 85.3, MCH 29.3, MCHC 34.4, RDW Std Deviation 44.4 H, RDW Coeff of Jenaro 14.2, Plt Count 91 L, MPV 12.0, Immature Gran % (Auto) 0.600, Neut % (Auto) 56.9, Lymph % (Auto) 31.2, [place] % (Auto) 9.8, Eos % (Auto) 1.1, Baso % (Auto) 0.4, Absolute Neuts (auto) 3.0, Absolute Lymphs (auto) 1.66, Nucleated RBC % 0 Micro: Microbiology 02/04/25 18:37 Blood Culture (Wb) - Anticubital Left Blood Culture - Preliminary No growth in 48 hours. 02/04/25 18:30 Blood Culture (Wb) - Anticubital Right Blood Culture - Preliminary No growth in 48 hours. 02/04/25 18:58 Urine, Clean Catch Urine Culture - Final Culture exhibits no growth. 02/05/25 10:00 Sputum, Expectorated/Coughed Gram Stain - Final 02/05/25 03:15 Mucosa - Nasopharyngeal Respiratory Panel (PCR) - Final Rhythm Strip Rhythm Strip: Sinus Rhythm Rate: 66 Ectopy: PVC(s) Physical Exam Const alert and no apparent distress HEENT head/scalp atraumatic and moist oral mucous membranes Resp normal respiratory effort, no retractions, no use of accessory muscles and clear to auscultation bilaterally Cardio regular rate, regular rhythm, S1 normal heart sound and S2 normal heart sound GI normal to inspection, nondistended, normoactive bowel sounds, soft to palpation, non-tender and non-distended Auscultation: hyperactive bowel sounds and hypoactive bowel sounds Extremity normal to inspection and full ROM Neuro Sensorium / Orientation: awake and alert Psych affect normal Assessment & Plan Assessment/Plan (1) Acute hypoxic respiratory failure: PLAN: improved. 2/2 CHF. Wean oxygen as tolerated. On empiric abx with pip/tazo (2) CHF exacerbation: PLAN: EF 35% from 12/12/24. Repeat echo ordered. On PO furosemide no ACEi/ARB given shock. Cards following. (3) Shock: PLAN: resolved suspect combination of septic and cardiogenic. on norepi unclear septic source. Possible GB. (4) Transaminitis: PLAN: thickening GB wall noted on CT and US. Unclear significance at this time. may be hepatic congestion. continue to monitor HIDA scan shows an EF of 10 %. Consult to general surgery for recommendations. (5) Thrombocytopenia: PLAN: acute on chronic, unclear significance. monitor for now. (6) Elevated troponin: PLAN: Unclear type at this time. Troponins 108 to 111 to 114. May be skewed upwards given MICHELLE. on ASA, clopidogrel Seen by cardiology. Not felt to have evidence of ischemia at this time. (7) PVC (premature ventricular contraction): PLAN: Frequent PVCs 2/2 shock completed amiodarone gtt. PLAN: Plan BPH: tamsulosin VTE prophylaxis: SCDs Discussed with family at bedside. Charges/Coding Visit Charges Inpatient E&M: 30273 Subs Hosp L2
[2025-02-07 08:54] LABS: ALB/GLOB Ratio 1.2 RATIO (0.9-2.4); AST(SGOT) 34 U/L (<=37); Alanine Aminotransfer ALT/SGPT 59 U/L (<=46); Alkaline Phosphatase 106 U/L (40-129); Anion Gap 14 (5-15); Atypical Lymphocyte 2+ %; BUN 44 mg/dL (4-19); BUN/Creat Ratio 25.7 RATIO (10-20); Carbon Dioxide 18.3 mmol/L (21.0-32.0); Chloride 102 mmol/L (98-108); Creatinine, Serum 1.72 mg/dL (0.70-1.20); EST Glomerular Filtration Rate 38 (>60); Estimated Creatinine Clearance 32.86 ml/min (50-250); Globulin 2.6 g/dL (2.2-4.2); Glucose 96 mg/dL (70-99); Ovalocyte 1+; Platelet Estimate MOD DEC (ADEQ); Potassium 3.9 mmol/L (3.3-5.1); Protein, Total 5.5 g/dL (5.9-8.4); Sodium Level 134 mmol/L (133-145)
--- NOTE | 2025-02-07 09:56 | PCM.PN.CARD ---
Subjective Subjective Feeling well. Denies any complaints today. Blood pressure stable. Off vasopressors. Objective Data Vital Signs: Vital Signs Temp Pulse Resp BP Pulse Ox O2 Del Method O2 Flow Rate 98.0 F 62 17 94/58 L 99 Room Air 3 02/07/25 02:55 02/07/25 03:00 02/07/25 02:55 02/07/25 02:55 02/07/25 02:55 02/07/25 02:55 02/06/25 10:00 FiO2 28 02/06/25 22:27 Oxygen Flow Rate (L/min) 3 Oxygen Delivery Method Room Air Weight: 196 lb 13.965 oz Body Mass Index (BMI) 31.7 Intake & Output: Intake and Output for Last 24 Hours 02/05/25 02/06/25 02/07/25 23:59 23:59 23:59 Intake Total 952.56 / 952.56 1310.73 / 1310.73 50 / 50 Output Total 3545 / 3545 1100 / 1100 Balance -2592.44 / -2592.44 210.73 / 210.73 50 / 50 Lab / Micro Data 02/07/25 06:08 02/07/25 06:08 Labs: Laboratory Results - last 24 hr 02/07/25 06:08: WBC 5.3, RBC 3.34 L, Hgb 9.8 L, Hct 28.5 L, MCV 85.3, MCH 29.3, MCHC 34.4, RDW Std Deviation 44.4 H, RDW Coeff of Jenaro 14.2, Plt Count 91 L, MPV 12.0, Immature Gran % (Auto) 0.600, Neut % (Auto) 56.9, Lymph % (Auto) 31.2, [place] % (Auto) 9.8, Eos % (Auto) 1.1, Baso % (Auto) 0.4, Absolute Neuts (auto) 3.0, Absolute Lymphs (auto) 1.66, Nucleated RBC % 0, Atypical Lymphocytes 2+, Platelet Estimate MOD DEC, Ovalocytes 1+, Sodium 134, Potassium 3.9, Chloride 102, Carbon Dioxide 18.3 L, Anion Gap 14, BUN 44 H, Creatinine 1.72 H, Estim Creat Clear Calc 32.86 L, Est GFR (MDRD) Non-Af 38 L, BUN/Creatinine Ratio 25.7 H, Glucose 96, Calcium 8.0, Total Bilirubin 0.70, AST 34, ALT 59 H, Alkaline Phosphatase 106, Total Protein 5.5 L, Albumin 3.0 L, Globulin 2.6, Albumin/Globulin Ratio 1.2 Micro: Microbiology 02/04/25 18:37 Blood Culture (Wb) - Anticubital Left Blood Culture - Preliminary No growth in 48 hours. 02/04/25 18:30 Blood Culture (Wb) - Anticubital Right Blood Culture - Preliminary No growth in 48 hours. 02/04/25 18:58 Urine, Clean Catch Urine Culture - Final Culture exhibits no growth. Rhythm Strip Rhythm Strip: Sinus Rhythm Rate: 66 Ectopy: PVC(s) Cardiology Labs/Tests 02/07/25 06:08: WBC 5.3, RBC 3.34 L, Hgb 9.8 L, Hct 28.5 L, MCV 85.3, MCH 29.3, MCHC 34.4, Plt Count 91 L, MPV 12.0, Immature Gran % (Auto) 0.600, Neut % (Auto) 56.9, Lymph % (Auto) 31.2, [place] % (Auto) 9.8, Eos % (Auto) 1.1, Baso % (Auto) 0.4, Absolute Neuts (auto) 3.0, Nucleated RBC % 0, Sodium 134, Potassium 3.9, Chloride 102, Carbon Dioxide 18.3 L, Anion Gap 14, BUN 44 H, Creatinine 1.72 H, Est GFR (MDRD) Non-Af 38 L, BUN/Creatinine Ratio 25.7 H, Glucose 96, Calcium 8.0, Total Bilirubin 0.70 Rhythm: EKG: ECHO: Stress Test: Cardiac Cath: PCI: CT Surgery: Holter monitor: EPS: PPM: CXR: Chest CT Scan: Physical Exam Narrative Comfortable. No apparent distress. Heart sounds 1 and 2 noted. Chest clear to auscultation bilaterally. Alert oriented x 3. No ankle edema. Assessment & Plan Assessment/Plan (1) Multifocal PVCs: PLAN: Resolved. In the setting of acute illness with shock, being on vasopressor agents and chronic LV systolic dysfunction. Amiodarone DC'd. Will introduce beta-blockers once hemodynamics better. (2) H/O coronary artery bypass surgery: PLAN: History of CABG. Continue aspirin. Clopidogrel. (3) Chronic systolic (congestive) heart failure: PLAN: Furosemide. Start on ACEI and beta-blockers if hemodynamically remained stable. (4) History of aortic valve replacement with bioprosthetic valve: PLAN: Monitor. (5) Abdominal aortic aneurysm: PLAN: 4.5 cm abdominal aortic aneurysm reported on CT scan. For periodic ultrasound surveillance. (6) Thrombocytopenia: PLAN: Monitor. As per internal medicine/critical care. (7) Shock: PLAN: Likely combination distributive and cardiogenic. Resolved. Off vasopressor agents.
--- NOTE | 2025-02-07 11:00 | NM_ITS ---
PROCEDURE: HEPATOBILLIARY IMG W/PHARM INT 02/07/2025 REASON FOR EXAM: GALLBLADDER WALL EDEMA. TECHNIQUE: Intravenous Choletec with planar imaging of the abdomen. RADIOPHARMACEUTICAL: 5.6 mCi of technetium labeled mebrofenin. 1.7 mcg of CCK injected at 60 minutes. COMPARISON: None FINDINGS: There is good uptake of the radiopharmaceutical by the liver. Normal gallbladder visualization with the gallbladder identified by 30 minutes. Gallbladder ejection fraction measures 10%. NM/Hepatobilliary Img w/Pharm Int IMPRESSION: Abnormal gallbladder ejection fraction. Reading Location: [id number]
[2025-02-07] MEDS: Pantoprazole Sodium 40 MG in 0.9% Normal Saline (100mL MB+) 100 ML 330 MG IV ×2 (14:07→21:19)
[2025-02-07] MEDS: 0.9% Saline Lock 10 ML Syringe IV ×2 (14:38→22:46)
--- NOTE | 2025-02-07 16:29 | CASEMGMT ---
SEBASTIAN JEFFREY in to discuss needs at discharge, family at bedside. Patient and family decline HHC at this time. Patient is currently on room air. RN CM advised family that if patient discharges and they reconsider HHC, that PCP can setup HHC. Patient and family voiced understanding. Patient and family had no further questions. Green sheet placed on chart if patient qualifies for home oxygen
[2025-02-07 17:00] VITALS: BP 106/67; PULSE 65; RESP 18; TEMP 36.6; O2SAT 99
--- NOTE | 2025-02-07 17:02 | CON.PCM.SX_ITS ---
HPI Consult Data Date of Consult: 02/07/25 HPI Narrative Reason for Consultation: Possible cholecystitis HPI Narrative: JOSELUIS VARGAS, is a 85 M who presents Patient is a 85-year-old presenting with worsening shortness of breath, cough and generalized malaise. Patient has a history of heart failure with reduced ejection fraction, CABG, hyperlipidemia and sleep apnea. States he has been feeling worse over the past 4 to 5 days but is been particularly bad over the past 2 days. Reports has been feeling lightheaded and short of breath. States cough is been productive of sputum. He has an appointment to see cardiology today they told him his lung sounds were clear. His blood pressure was low. He notes he has not been eating or drinking as much. States he has been feeling constipated but denies any abdominal pain. Has been passing gas. Denies any black or blood in his stool. Denies any nausea or vomiting. Denies any rash. Denies any swelling of his legs. Patient's cardiology outpatient visit from today reviewed. Most recently evaluated at our hospital for CHF exacerbation in December 2024. At that time echocardiogram showed LVEF 35%. Was discharged on Lasix 20 mg p.o. daily. Was reporting dizziness. Blood pressure 86/49 with a pulse of 78 in the office today. 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 Was switch to Lasix 40 mg labs daily and lisinopril 2.5 mg daily today. [facility] Medical History GI treated with BiPAP Valvular heart disease HTN (hypertension) CAD (coronary artery disease) HFrEF (heart failure with reduced ejection fraction) Daytime hypersomnolence Nonrheumatic aortic (valve) stenosis Hyperlipidemia Atherosclerotic heart disease of [place] coronary artery without angina pectoris Atherosclerosis of coronary artery bypass graft without angina pectoris (~03/29/22) Home Medications ?Medication ?Instructions ?Recorded ?Last Taken ?Type vitamin E 200 unit capsule 200 unit PO DAILY 09/14/20 Unknown History aspirin 81 mg chewable tablet 81 mg PO Q OTHER DAY 03/29/22 History tamsulosin 0.4 mg capsule (Flomax) 0.4 mg PO QHS #30 c aps 01/27/22 Unknown Rx lisinopril 5 mg tablet 2.5 mg PO DAILY 07/14/23 Unk nown History clopidogrel 75 mg tablet 75 mg PO Q OTHER DAY #45 tab s 11/12/24 Unknown Rx dapagliflozin propanediol 10 mg 10 mg PO heart 5 Unknown History tablet dapagliflozin propanediol 10 mg 10 mg PO DAILY heart 0 02/05/25 Unknown History tablet (Farxiga) furosemide 40 mg tablet 80 mg PO QDAY 02/05/25 Unkno wn History Allergy/AdvReac Type Severity Reaction Status Date / Time No Known Allergies Allergy Verified 02/04/25 18:00 Family History Father Myocardial infarction CVA (cerebral vascular accident) Mother CHF (congestive heart failure) Brother CAD (coronary artery disease) Cancer leukemia Surgical History Presence of coronary artery bypass graft stent (~03/29/22) History of arthroplasty of knee H/O coronary artery bypass surgery (~01/2002) History of left inguinal hernia repair (~1961) Presence of stent in coronary artery Postsurgical percutaneous transluminal coronary angioplasty (PTCA) status History of aortic valve replacement with bioprosthetic valve (~12/27/17) Social History adopted: No household members: spouse housing: house number of children: 6 current occupational status: employed 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 current occupational exposures/hazards: No pets and animals: Yes (chickens 2 and 1 horse) leisure activities: hunting and fishing history of recent travel: No Smoking Status: Never smoker alcohol intake: never substance use type: does not use caffeine: No what type of physical activity do you participate in: walking frequency: 5-6 times per week duration: 30-45 minutes/day seatbelt use: sometimes do you feel safe at home: Yes Lab / Micro Data 02/07/25 06:08 02/07/25 06:08 Labs: Laboratory Results - last 24 hr 02/07/25 06:08: WBC 5.3, RBC 3.34 L, Hgb 9.8 L, Hct 28.5 L, MCV 85.3, MCH 29.3, MCHC 34.4, RDW Std Deviation 44.4 H, RDW Coeff of Jenaro 14.2, Plt Count 91 L, MPV 12.0, Immature Gran % (Auto) 0.600, Neut % (Auto) 56.9, Lymph % (Auto) 31.2, [place] % (Auto) 9.8, Eos % (Auto) 1.1, Baso % (Auto) 0.4, Absolute Neuts (auto) 3.0, Absolute Lymphs (auto) 1.66, Nucleated RBC % 0, Atypical Lymphocytes 2+, Platelet Estimate MOD DEC, Ovalocytes 1+, Sodium 134, Potassium 3.9, Chloride 102, Carbon Dioxide 18.3 L, Anion Gap 14, BUN 44 H, Creatinine 1.72 H, Estim Creat Clear Calc 32.86 L, Est GFR (MDRD) Non-Af 38 L, BUN/Creatinine Ratio 25.7 H, Glucose 96, Calcium 8.0, Total Bilirubin 0.70, AST 34, ALT 59 H, Alkaline Phosphatase 106, Total Protein 5.5 L, Albumin 3.0 L, Globulin 2.6, Albumin/Globulin Ratio 1.2 Micro: Microbiology 02/05/25 10:00 Sputum, Expectorated/Coughed Gram Stain - Final 02/05/25 10:00 Sputum, Expectorated/Coughed Respiratory Culture - Final Mixed normal respiratory ana rosa. No Streptococcus pneumoniae, beta-hemolytic Streptococcus or Staphylococcus aureus isolated. 02/04/25 18:37 Blood Culture (Wb) - Anticubital Left Blood Culture - Preliminary No growth in 48 hours. 02/04/25 18:30 Blood Culture (Wb) - Anticubital Right Blood Culture - Preliminary No growth in 48 hours. Rhythm Strip Rhythm Strip: Sinus Rhythm Rate: 66 Ectopy: PVC(s) Imaging Radiology Impression Hepatobiliary Scan Nuclear Medicine 02/07/25 11:00 IMPRESSION: Abnormal gallbladder ejection fraction. Reading Location: [id number]
--- NOTE | 2025-02-07 17:02 | EX.PCM.CON.S ---
Assessment & Plan Assessment/Plan (1) Gallbladder anomaly: PLAN: Plan The patient is an 85-year-old male admitted with fatigue and shortness of breath. During workup he was found to have a gallbladder wall at the upper limit of normal. HIDA scan also showed ejection fraction of about 10%. Clinically I do not feel that he has any signs of biliary colic. From a surgical standpoint have no surgical plans for surgery. I do not feel that he requires cholecystostomy tube etc. I have placed him back on a heart healthy diet and we will continue to observe. Again family wishes to pursue conservative measures and is not interested in any type of surgical intervention even if indicated. I certainly respect their wishes HPI Consult Data Date of Consult: 02/07/25 HPI Narrative Reason for Consultation: Possible cholecystitis HPI Narrative: JOSELUIS VARGAS, is a 85 M who was admitted to [facility] several days ago with complaints of worsening shortness of breath, cough and general weakness/malaise. Patient does have a history of heart failure with a very low ejection fraction. She has had a previous cardiac surgery. Apparently he was feeling unwell for several days prior to presenting to the emergency department. He was feeling lightheaded and short of breath. Patient was seen by his house supervisor on the day of admission and his blood pressure was low. He was sent to the emergency department for further evaluation. Patient was apparently having some nausea and vomiting but never endorsed any abdominal pain. Patient was admitted. Patient continued to have low blood pressure and was on pressors for a period of time. Patient is currently doing much better and states that he feels much closer to his normal baseline. During the hospitalization he underwent a CT scan as well as an ultrasound of the right upper quadrant that showed gallbladder wall thickening at the upper limits of normal. There was some mild fluid around the liver which may be related to CHF. Patient also had very mildly elevated AST and ALT on presentation but these continue to normalize. Again patient has never endorsed any type of abdominal pain and states that he has never had any right upper quadrant pain or issues with eating recently. General surgery was consulted to evaluate for possible cholecystitis. Family freely admits that he they do not feel that he is able to undergo surgery and they expressed that they would not wish for surgery even if indicated. I certainly agree that he would be a very high risk surgical candidate. He currently denies any type of abdominal complaints of pain especially in the right upper quadrant. White count has remained normal [facility] Medical History IG treated with BiPAP Valvular heart disease HTN (hypertension) CAD (coronary artery disease) HFrEF (heart failure with reduced ejection fraction) Daytime hypersomnolence Nonrheumatic aortic (valve) stenosis Hyperlipidemia Atherosclerotic heart disease of [place] coronary artery without angina pectoris Atherosclerosis of coronary artery bypass graft without angina pectoris (~03/29/22) Home Medications ?Medication ?Instructions ?Recorded ?Last Taken ?Type vitamin E 200 unit capsule 200 unit PO DAILY 09/14/20 Unknown History aspirin 81 mg chewable tablet 81 mg PO Q OTHER DAY 09/10/21 03/29/22 History tamsulosin 0.4 mg capsule (Flomax) 0.4 mg PO QHS #30 caps 01/27/22 Unknown Rx lisinopril 5 mg tablet 2.5 mg PO DAILY 07/14/23 Unknown History clopidogrel 75 mg tablet 75 mg PO Q OTHER DAY #45 tabs 11/12/24 Unknown Rx dapagliflozin propanediol 10 mg 10 mg PO heart 02/05/25 Unknown History tablet dapagliflozin propanediol 10 mg 10 mg PO DAILY heart 02/05/25 Unknown History tablet (Farxiga) furosemide 40 mg tablet 80 mg PO QDAY 02/05/25 Unknown History Allergy/AdvReac Type Severity Reaction Status Date / Time No Known Allergies Allergy Verified 02/04/25 18:00 Family History Father Myocardial infarction CVA (cerebral vascular accident) Mother CHF (congestive heart failure) Brother CAD (coronary artery disease) Cancer leukemia Surgical History Presence of coronary artery bypass graft stent (~03/29/22) History of arthroplasty of knee H/O coronary artery bypass surgery (~01/2002) History of left inguinal hernia repair (~1961) Presence of stent in coronary artery Postsurgical percutaneous transluminal coronary angioplasty (PTCA) status History of aortic valve replacement with bioprosthetic valve (~12/27/17) Social History adopted: No household members: spouse housing: house number of children: 6 current occupational status: employed 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 He is in no acute distress. Head is normocephalic and atraumatic. Pupils equal round and reactive to light. Abdomen is soft and none distended. He is completely nontender. There is no tenderness whatsoever in the right upper quadrant Lab / Micro Data 02/07/25 06:08 02/07/25 06:08 Labs: Laboratory Results - last 24 hr 02/07/25 06:08: WBC 5.3, RBC 3.34 L, Hgb 9.8 L, Hct 28.5 L, MCV 85.3, MCH 29.3, MCHC 34.4, RDW Std Deviation 44.4 H, RDW Coeff of [place] 14.2, Plt Count 91 L, MPV 12.0, Immature Gran % (Auto) 0.600, Neut % (Auto) 56.9, Lymph % (Auto) 31.2, [place] % (Auto) 9.8, Eos % (Auto) 1.1, Baso % (Auto) 0.4, Absolute Neuts (auto) 3.0, Absolute Lymphs (auto) 1.66, Nucleated RBC % 0, Atypical Lymphocytes 2+, Platelet Estimate MOD DEC, Ovalocytes 1+, Sodium 134, Potassium 3.9, Chloride 102, Carbon Dioxide 18.3 L, Anion Gap 14, BUN 44 H, Creatinine 1.72 H, Estim Creat Clear Calc 32.86 L, Est GFR (MDRD) Non-Af 38 L, BUN/Creatinine Ratio 25.7 H, Glucose 96, Calcium 8.0, Total Bilirubin 0.70, AST 34, ALT 59 H, Alkaline Phosphatase 106, Total Protein 5.5 L, Albumin 3.0 L, Globulin 2.6, Albumin/Globulin Ratio 1.2 Micro: Microbiology 02/05/25 10:00 Sputum, Expectorated/Coughed Gram Stain - Final 02/05/25 10:00 Sputum, Expectorated/Coughed Respiratory Culture - Final Mixed normal respiratory ana rosa. No Streptococcus pneumoniae, beta-hemolytic Streptococcus or Staphylococcus aureus isolated. 02/04/25 18:37 Blood Culture (Wb) - Anticubital Left Blood Culture - Preliminary No growth in 48 hours. 02/04/25 18:30 Blood Culture (Wb) - Anticubital Right Blood Culture - Preliminary No growth in 48 hours. Rhythm Strip Rhythm Strip: Sinus Rhythm Rate: 66 Ectopy: PVC(s) Imaging Radiology Impression Hepatobiliary Scan Nuclear Medicine 02/07/25 11:00 IMPRESSION: Abnormal gallbladder ejection fraction. Reading Location: [id number] Charges/Coding Visit Charges Inpatient E&M: 32753 Init Hosp L3
[2025-02-07 21:13] VITALS: BP 109/83; PULSE 85; RESP 16; TEMP 36.3; O2SAT 97
[2025-02-07] MEDS: Tamsulosin HCl 0.4 MG Capsule PO (21:19)
[2025-02-07 22:15] VITALS: PULSE 73; RESP 12; RESP 18; O2SAT 97
[2025-02-08 02:00] VITALS: PULSE 53; RESP 12; RESP 19; O2SAT 99
[2025-02-08 03:45] VITALS: BMI 31.6
[2025-02-08 04:00] VITALS: BP 96/58; PULSE 83; RESP 16; TEMP 36.4; O2SAT 100
[2025-02-08 05:21] VITALS: PULSE 54; RESP 12; RESP 13; O2SAT 99
[2025-02-08] MEDS: Piperacil/Tazobactam 3.375 GM in 0.9% Normal Saline (50mL MB+) 50 ML IV (05:43)
[2025-02-08 07:05] VITALS: O2SAT 93
[2025-02-08 07:15] LABS: Absolute Lymphocyte Count 2.21 X10^3/uL (0.83-4.51); Absolute Neutrophil Count 2.9 X10^3/uL (2.0-7.7); Basophil# 0.02 X10^3/uL; Basophil% 0.3 % (0-1); Eosinophil# 0.18 X10^3/uL; Eosinophils% 3.1 % (0-5); Hematocrit 30.4 % (40-54); Hemoglobin 10.2 g/dL (13.0-16.5); Lymphocyte # 2.21 X10^3/ul (0.83-4.51); Lymphocyte % 38.6 % (19-41); Mean Corp Hgb Conc 33.6 g/dL (32-36); Mean Corpuscular Hgb 29.1 pg (27.0-32.0); Mean Corpuscular Volume 86.6 fL (80-94); Mean Platelet Vol. 11.2 fl (6.2-12.0); Monocyte# 0.38 X10^3/uL; Monocyte% 6.6 % (0-10); NRBC Flagged by Analyzer 0 % (0-5); Neutrophil # 2.91 X10^3/uL (2.7-7.7); Neutrophil % 51.1 % (47-70); POSITIVE MORPHOLOGY YES; Platelet Count 124 K/mm3 (150-450); RBC Distribution Width CV 14.6 % (11.6-14.6); RBC Distribution Width SD 46.5 fl (35.1-43.9); Red Blood Count 3.51 M/mm3 (4.6-6.2); White Blood Count 5.7 K/mm3 (4.4-11.0)
[2025-02-08 07:20] LABS: Differential Indicated SCAN CRITERIA MET
[2025-02-08 07:37] LABS: ALB/GLOB Ratio 1.2 RATIO (0.9-2.4); AST(SGOT) 29 U/L (<=37); Alanine Aminotransfer ALT/SGPT 51 U/L (<=46); Albumin, Serum 3.1 g/dL (3.4-4.8); Alkaline Phosphatase 103 U/L (40-129); Anion Gap 12 (5-15); BUN 36 mg/dL (4-19); BUN/Creat Ratio 21.9 RATIO (10-20); Calcium,Total 8.1 mg/dL (7.6-11.0); Carbon Dioxide 20.4 mmol/L (21.0-32.0); Chloride 105 mmol/L (98-108); Creatinine, Serum 1.63 mg/dL (0.70-1.20); EST Glomerular Filtration Rate 41 (>60); Estimated Creatinine Clearance 34.62 ml/min (50-250); Globulin 2.7 g/dL (2.2-4.2); Glucose 96 mg/dL (70-99); Potassium 4.1 mmol/L (3.3-5.1); Protein, Total 5.7 g/dL (5.9-8.4); Sodium Level 137 mmol/L (133-145); Total Bilirubin 0.62 mg/dL (0.00-1.30)
[2025-02-08 09:29] LABS: Atypical Lymphocyte 2+ %; Platelet Estimate SLT DEC (ADEQ); Platelet Morphology GIANT
[2025-02-08 09:30] LABS: Polychromasia 1+
[2025-02-08] MEDS: Furosemide 40 MG Tablet PO (09:49)
[2025-02-08] MEDS: Pantoprazole Sodium 40 MG in 0.9% Normal Saline (100mL MB+) 100 ML 330 MG IV (09:49)
[2025-02-08] MEDS: Aspirin 81 MG TAB.CHEW PO (09:49)
[2025-02-08] MEDS: Clopidogrel Bisulfate 75 MG Tablet PO (09:49)
[2025-02-08 11:00] VITALS: BP 104/69; PULSE 69; RESP 16; TEMP 36.2; O2SAT 99
--- NOTE | 2025-02-08 12:09 | PCM.PN.CARD ---
Subjective Subjective Patient feels very well. Ambulated this morning. No complaints. Objective Data Vital Signs: Vital Signs Temp Pulse Resp BP Pulse Ox O2 Del Method O2 Flow Rate 97.6 F L 54 L 13 96/58 L 99 Room Air 2 02/08/25 04:00 02/08/25 05:21 02/08/25 05:21 02/08/25 04:00 02/08/25 05:21 02/08/25 04:00 02/07/25 07:10 FiO2 24 02/08/25 05:21 Oxygen Flow Rate (L/min) 2 Oxygen Delivery Method Room Air Weight: 196 lb 3.382 oz Body Mass Index (BMI) 31.6 Intake & Output: Intake and Output for Last 24 Hours 02/06/25 02/07/25 02/08/25 23:59 23:59 23:59 Intake Total 1310.73 / 1310.73 350 / 350 200 / 200 Output Total 1100 / 1100 Balance 210.73 / 210.73 350 / 350 200 / 200 Lab / Micro Data 02/08/25 06:21 02/08/25 06:21 Labs: Laboratory Results - last 24 hr 02/08/25 06:21: WBC 5.7, RBC 3.51 L, Hgb 10.2 L, Hct 30.4 L, MCV 86.6, MCH 29.1, MCHC 33.6, RDW Std Deviation 46.5 H, RDW Coeff of [place] 14.6, Plt Count 124 L, MPV 11.2, Immature Gran % (Auto) 0.300, Neut % (Auto) 51.1, Lymph % (Auto) 38.6, [place] % (Auto) 6.6, Eos % (Auto) 3.1, Baso % (Auto) 0.3, Absolute Neuts (auto) 2.9, Absolute Lymphs (auto) 2.21, Nucleated RBC % 0, Atypical Lymphocytes 2+, Platelet Estimate SLT DEC, Plt Morphology Comment GIANT, Polychromasia 1+, Sodium 137, Potassium 4.1, Chloride 105, Carbon Dioxide 20.4 L, Anion Gap 12, BUN 36 H, Creatinine 1.63 H, Estim Creat Clear Calc 34.62 L, Est GFR (MDRD) Non-Af 41 L, BUN/Creatinine Ratio 21.9 H, Glucose 96, Calcium 8.1, Total Bilirubin 0.62, AST 29, ALT 51 H, Alkaline Phosphatase 103, Total Protein 5.7 L, Albumin 3.1 L, Globulin 2.7, Albumin/Globulin Ratio 1.2 Micro: Microbiology 02/05/25 10:00 Sputum, Expectorated/Coughed Gram Stain - Final 02/05/25 10:00 Sputum, Expectorated/Coughed Respiratory Culture - Final Mixed normal respiratory ana rosa. No Streptococcus pneumoniae, beta-hemolytic Streptococcus or Staphylococcus aureus isolated. 02/04/25 18:37 Blood Culture (Wb) - Anticubital Left Blood Culture - Preliminary No growth in 48 hours. 02/04/25 18:30 Blood Culture (Wb) - Anticubital Right Blood Culture - Preliminary No growth in 48 hours. Rhythm Strip Rhythm Strip: Sinus Rhythm Rate: 66 Ectopy: PVC(s) Cardiology Labs/Tests 02/08/25 06:21: WBC 5.7, RBC 3.51 L, Hgb 10.2 L, Hct 30.4 L, MCV 86.6, MCH 29.1, MCHC 33.6, Plt Count 124 L, MPV 11.2, Immature Gran % (Auto) 0.300, Neut % (Auto) 51.1, Lymph % (Auto) 38.6, [place] % (Auto) 6.6, Eos % (Auto) 3.1, Baso % (Auto) 0.3, Absolute Neuts (auto) 2.9, Nucleated RBC % 0, Sodium 137, Potassium 4.1, Chloride 105, Carbon Dioxide 20.4 L, Anion Gap 12, BUN 36 H, Creatinine 1.63 H, Est GFR (MDRD) Non-Af 41 L, BUN/Creatinine Ratio 21.9 H, Glucose 96, Calcium 8.1, Total Bilirubin 0.62 Rhythm: EKG: ECHO: Stress Test: Cardiac Cath: PCI: CT Surgery: Holter monitor: EPS: PPM: CXR: Chest CT Scan: Radiography Diagnostic Testing: Radiology Impression Hepatobiliary Scan Nuclear Medicine 02/07/25 11:00 IMPRESSION: Abnormal gallbladder ejection fraction. Reading Location: [facility] Physical Exam Narrative Comfortable. No apparent distress. Heart sounds 1 and 2 noted. Chest clear to auscultation bilaterally. Alert oriented x 3. No ankle edema. Assessment & Plan Assessment/Plan (1) Multifocal PVCs: PLAN: Resolved. In the setting of acute illness with shock, being on vasopressor agents and chronic LV systolic dysfunction. Start on low-dose beta-blockers. (2) H/O coronary artery bypass surgery: PLAN: History of CABG. Continue aspirin. Clopidogrel. (3) Chronic systolic (congestive) heart failure: PLAN: Furosemide. Started on low-dose beta-blockers. ACEI and other guideline directed medical therapy as outpatient. (4) History of aortic valve replacement with bioprosthetic valve: PLAN: Monitor. (5) Abdominal aortic aneurysm: PLAN: 4.5 cm abdominal aortic aneurysm reported on CT scan. For periodic ultrasound surveillance. (6) Thrombocytopenia: PLAN: Monitor. As per internal medicine/critical care. (7) Shock: PLAN: Likely combination distributive and cardiogenic. Resolved. Off vasopressor agents.
--- NOTE | 2025-02-08 13:07 | PN.SURG_ITS ---
Subjective Subjective Patient seen and evaluated on rounds this morning. Patient without any abdominal complaints whatsoever. He states that he is feeling good and is excited to go home today. Patient tolerated heart healthy diet without any exacerbation of any abdominal complaints. Objective Data Objective Data Vital Signs: Vital Signs Temp Pulse Resp BP Pulse Ox O2 Del Method O2 Flow Rate 97.1 F L 69 16 104/69 99 Room Air 2 02/08/25 11:00 02/08/25 11:00 02/08/25 11:00 02/08/25 11:00 02/08/25 11:00 02/08/25 11:00 02/07/25 07:10 FiO2 24 02/08/25 05:21 Oxygen Flow Rate (L/min) 2 Oxygen Delivery Method Room Air Weight: 196 lb 3.382 oz Body Mass Index (BMI) 31.6 Intake & Output: Intake and Output for Last 24 Hours 02/06/25 02/07/25 02/08/25 23:59 23:59 23:59 Intake Total 1310.73 / 1310.73 350 / 350 440 / 440 Output Total 1100 / 1100 Balance 210.73 / 210.73 350 / 350 440 / 440 Lab / Micro Data 02/08/25 06:21 02/08/25 06:21 Labs: Laboratory Results - last 24 hr 02/08/25 06:21: WBC 5.7, RBC 3.51 L, Hgb 10.2 L, Hct 30.4 L, MCV 86.6, MCH 29.1, MCHC 33.6, RDW Std Deviation 46.5 H, RDW Coeff of [place] 14.6, Plt Count 124 L, MPV 11.2, Immature Gran % (Auto) 0.300, Neut % (Auto) 51.1, Lymph % (Auto) 38.6, [place] % (Auto) 6.6, Eos % (Auto) 3.1, Baso % (Auto) 0.3, Absolute Neuts (auto) 2.9, Absolute Lymphs (auto) 2.21, Nucleated RBC % 0, Atypical Lymphocytes 2+, Platelet Estimate SLT DEC, Plt Morphology Comment GIANT, Polychromasia 1+, Sodium 137, Potassium 4.1, Chloride 105, Carbon Dioxide 20.4 L, Anion Gap 12, B UN 36 H, Creatinine 1.63 H, Estim Creat Clear Calc 34.62 L, Est GFR (MDRD) Non- Af 41 L, BUN/Creatinine Ratio 21.9 H, Glucose 96, Calcium 8.1, Total Bilirubin 0.62, AST 29, ALT 51 H, Alkaline Phosphatase 103, Total Protein 5.7 L, Albumin 3.1 L, Globulin 2.7, Albumin/Globulin Ratio 1.2 Micro: Microbiology 02/05/25 10:00 Sputum, Expectorated/Coughed Gram Stain - Final 02/05/25 10:00 Sputum, Expectorated/Coughed Respiratory Culture - Final Mixed normal respiratory ana rosa. No Streptococcus pneumoniae, beta-hemolytic Streptococcus or Staphylococcus aureus isolated. 02/04/25 18:37 Blood Culture (Wb) - Anticubital Left Blood Culture - Preliminary No growth in 48 hours. 02/04/25 18:30 Blood Culture (Wb) - Anticubital Right Blood Culture - Preliminary No growth in 48 hours. 02/04/25 18:58 Urine, Clean Catch Urine Culture - Final Culture exhibits no growth. 02/05/25 03:15 Mucosa - Nasopharyngeal Respiratory Panel (PCR) - Final Rhythm Strip Rhythm Strip: Sinus Rhythm Rate: 66 Ectopy: PVC(s) Physical Exam Narrative He is alert and oriented x 3. He is in no acute distress. Abdomen is entirely soft, nontender and nondistended. No right upper quadrant tenderness to palpation Assessment & Plan Assessment/Plan (1) Gallbladder anomaly: PLAN: Plan The patient is an 85-year-old male admitted with shortness of breath and CHF exacerbation. Clinically he does not exhibit any signs of biliary colic and so would not recommend any type of surgical intervention for his gallbladder. Okay for discharge to home from a surgical standpoint
--- NOTE | 2025-02-08 14:18 | DS.PCM_ITS ---
Providers Date of Admission: 02/04/25 Primary Care Physician: Dr. Pedro Gonzalez MD Consultations 02/05/25 00:02 Consult: Cardiology Routine Consulting Provider: Cj Gardiner Reason for Consult: HF Exac, elevated troponins EMERGENT Consult: No Notified: Yes Date Notified: 02/04/25 Time Notified: 22:45 Method of Notification: Text Consult: Carcass Trimmer / Pulmonary Medicine Routine Consulting Provider: Intensivists/Pulmonary Med Reason for Consult: Septic appearance complicated by resp failure, HF exac EMERGENT Consult: No MD Notified: Yes Date Notified: 02/04/25 Time Notified: 23:04 Method of Notification: Text 02/07/25 13:49 Consult: General Surgery Routine Consulting Provider: Glen Haywood Reason for Consult: possilbe cholecystitis. 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 Instructions: Until instructed to restart by cardiology clopidogrel 75 mg tablet 75 mg PO Q OTHER DAY #45 tabs 11/12/24 dapagliflozin propanediol 10 mg tablet 10 mg PO heart 02/05/25 amoxicillin 875 mg-potassium clavulanate 125 mg tablet 1 tab PO BID #22 tabs 02/08/25 furosemide 40 mg tablet 40 mg PO DAILY #30 tabs 02/08/25 metoprolol tartrate 25 mg tablet 12.5 mg (1/2 x 25 mg) PO DAILY #60 tabs 02/08/25 Hospital Course Operations None Procedures 2-D Echocardiogram, EKG and - (Chest x-ray/CT abdomen chest and pelvis/gallbladder ultrasound/HIDA scan) Summary of Care Provided Minutes Spent on Discharge: 45 Hospital Course: Mr. Overton is an 85-year-old white male who presented to the emergency department at [facility] on 02/04/2025 with a chief complaint of dyspnea, fatigue, and malaise, with cough that had been progressively worsening. The dyspnea started about and he had increasing fatigue and malaise and was feeling worse about 48 hours prior to presentation. He was evaluated in the outpatient office by cardiology on the day of presentation and was found to have some borderline blood pressure and patient revealed he had not been eating or drinking much and constipation. The plan was to change his diuretics but given his worsening status it prompted ED evaluation. Vital signs on presentation showed temperature 100.5, heart rate 98, blood pressure 94/63, respiratory was 21 and pulse ox was 93% on room air initially however he desatted to 89% then was placed on 2 L nasal cannula. CBC showed normal white count with anemia at 10.6 which is consistent with his baseline and thrombocytopenia at 82,000 again which is chronic. He had hyponatremia with a sodium of 125, elevated BUN and serum creatinine at 58 and 1.94 respectively. His initial troponin was elevated 108 with a delta of 111 and a 4-hour troponin of 114. And his BNP was 28,079. His UA was not suggestive of infection. EKG did not show signs of acute ischemia. A VBG was performed and showed normal pH at 7.47. Chest x-ray showed interstitial prominent markings with cardiogenic pulmonary edema. CT of the chest abdomen and pelvis showed trace bilateral pleural effusion, gallbladder wall thickening, abdominal aortic aneurysm at 4.5 cm, and a 4 mm solid pulmonary nodule. He was admitted to the hospital and cultures were obtained. He was placed on Zosyn given his gallbladder abnormalities and transaminitis on presentation. An echocardiogram was ordered due to his elevated BNP and troponin. Echocardiogram showed an EF of 25% with a mildly dilated LV, moderate global hypokinesis of the LV stable bioprosthetic aortic valve and a pulmonary artery systolic pressure of 35 mmHg. Cardiology was consulted given these findings as his EF had dropped from previous. He was followed by cardiology during his hospital course and ultimately it was recommended that he continue Lasix 40 mg daily with as needed dosing for shortness of breath and start a low-dose beta-mohit with metoprolol 12.5 mg p.o. twice daily. Other goal-directed medical therapy is to be initiated as an outpatient per discussion with Dr. Castro prior to discharge and he would like the patient to see cardiology in the next week. I have given family instructions to call on Monday to set up an appointment. Right upper quadrant ultrasound and HIDA scan were performed. HIDA scan did show an ejection fraction of 10% but patient was not having any biliary colic. General surgery was consulted and recommended against any surgical intervention for gallbladder given symptoms. They felt he was okay for discharge as well. We will continue antibiotics to complete a course given concerns of infection of presentation and his gallbladder abnormalities. He will complete course of Augmentin. I do honestly believe he probably had a distributive/cardiogenic shock or mixed shock on presentation given the other findings. He was evaluated by physical Occupational Therapy during his hospital course and did quite well. They felt that he was stable for discharge home. Home health care was recommended however family declined at this time. Prescriptions for the Augmentin, change in Lasix dosing, and metoprolol was sent to local pharmacy prior to discharge. Patient is to follow-up with cardiology as noted above and with general surgery within the next 2 weeks. Patient was able to be discharged home in stable condition on 02/08/2025. Discharge diagnoses: Acute hypoxic respiratory failure Acute exacerbation of chronic HFrEF Combined shock Transaminitis Abnormal gallbladder function/imaging Chronic thrombocytopenia Elevated troponin secondary to demand ischemia from CHF PVCs BPH with obstruction CAD History of essential hypertension History of IG History of aortic valve stenosis status post bioprosthetic valve replacement History of hyperlipidemia Obesity Physical Exam Const alert, oriented x3, no apparent distress, no limitations and well nourished; Negative for average body habitus Constitutional Narrative: Morbidly obese, white Jung male, reclining, family at bedside, appears well, nontoxic, very pleasant General Appearance: cooperative, comfortable, well kempt and well developed Exam Limitations: no limitations Nutritional Appearance: obese HEENT normocephalic, head/scalp atraumatic and moist oral mucous membranes; Negative for hearing grossly normal bilaterally HEENT Narrative: Mallampati 2, no thrush, mild-moderate hearing loss Eyes conjunctivae normal Eyes Narrative: No scleral icterus Neck supple Neck Narrative: Trachea midline Resp normal respiratory effort, no retractions, no use of accessory muscles and clear to auscultation bilaterally Auscultation: Negative for rales, rhonchi or wheezes Cardio regular rate, regular rhythm, S1 normal heart sound, S2 normal heart sound, no murmurs, no rub, no gallops and no clicks GI normal to inspection, nondistended, normoactive bowel sounds, soft to palpation and non-tender Extremity no clubbing, cyanosis or edema Extremity Narrative: 2+ pedal pulses Skin no wounds, skin turgor normal and no jaundice Neuro oriented x3, moves all extremities and no focal motor deficits Speech: speech normal Psych affect normal Psych Narrative: very pleasant Weight / BMI Weight Weight: 89 kg Body Mass Index (BMI) 31.6 ABG / Lab / Microbiology Data 02/08/25 06:21 02/08/25 06:21 Laboratory: Laboratory Results - last 24 hr 02/08/25 06:21: WBC 5.7, RBC 3.51 L, Hgb 10.2 L, Hct 30.4 L, MCV 86.6, MCH 29.1, MCHC 33.6, RDW Std Deviation 46.5 H, RDW Coeff of Jenaro 14.6, Plt Count 124 L, MPV 11.2, Immature Gran % (Auto) 0.300, Neut % (Auto) 51.1, Lymph % (Auto) 38.6, [place] % (Auto) 6.6, Eos % (Auto) 3.1, Baso % (Auto) 0.3, Absolute Neuts (auto) 2.9, Absolute Lymphs (auto) 2.21, Nucleated RBC % 0, Atypical Lymphocytes 2+, Platelet Estimate SLT DEC, Plt Morphology Comment GIANT, Polychromasia 1+, Sodium 137, Potassium 4.1, Chloride 105, Carbon Dioxide 20.4 L, Anion Gap 12, B UN 36 H, Creatinine 1.63 H, Estim Creat Clear Calc 34.62 L, Est GFR (MDRD) Non- Af 41 L, BUN/Creatinine Ratio 21.9 H, Glucose 96, Calcium 8.1, Total Bilirubin 0.62, AST 29, ALT 51 H, Alkaline Phosphatase 103, Total Protein 5.7 L, Albumin 3.1 L, Globulin 2.7, Albumin/Globulin Ratio 1.2 Microbiology: Microbiology 02/05/25 10:00 Sputum, Expectorated/Coughed Gram Stain - Final 02/05/25 10:00 Sputum, Expectorated/Coughed Respiratory Culture - Final Mixed normal respiratory ana rosa. No Streptococcus pneumoniae, beta-hemolytic Streptococcus or Staphylococcus aureus isolated. 02/04/25 18:37 Blood Culture (Wb) - Anticubital Left Blood Culture - Preliminary No growth in 48 hours. 02/04/25 18:30 Blood Culture (Wb) - Anticubital Right Blood Culture - Preliminary No growth in 48 hours. 02/04/25 18:58 Urine, Clean Catch Urine Culture - Final Culture exhibits no growth. 02/05/25 03:15 Mucosa - Nasopharyngeal Respiratory Panel (PCR) - Final D/C Instructions Discharge Diet: Low fat / Low cholesterol (Limit fluid to 1500 cc daily or less/2 to 3 g of salt or less daily) DC O2, CPAP, BIPAP Needs Home O2 Discharge instructions: No DC home with Oxygen: No Meaningful Use Info Meaningful Use Meaningful Use Diagnoses (Choose all that apply): CHF CHF SONIA/ARB ordered at discharge?: No Reason SONIA/ARB not ordered?: Hypotension Documented LVEF (%): 25 Ischemic Stroke Statin Dosing Therapy Reference: STATIN DOSE THERAPY REFERENCE: * Patients > 75 years receive moderate or high dose statin therapy. * Patients 75 years or YOUNGER should receive HIGH intensity statin dose unless contraindicated. You will be required to document reason for non-treatment if statin daily dose does not meet guidelines. HIGH DOSE STATIN THERAPY DAILY Atorvastatin > than or = to 40 mg Rosuvastatin > than or = to 20 mg Amlodipine + Atorvastatin > than or = to 2.5/40 mg Ezetimibe + Simvastatin 10/80 mg Simvastatin 80mg Discharge Plan Admission Admit Date/Time: 02/04/25 22:42 Primary Reason for Your Visit: Shortness of breath/malaise/fatigue Attending Provider: Yeny Gabriel Primary Care Provider: Pedro Gonzalez Consulting Providers: Rea Cancino; Cj Gardiner; Glen Haywood; Pedro Galvan Discharge Orders/Prescriptions Prescriptions: New furosemide 40 mg Tablet 40 mg PO DAILY Qty: 30 1RF Rx Instructions: Please take an extra dose if your shortness of breath worsens metoprolol tartrate 25 mg tablet 12.5 mg PO DAILY Qty: 60 0RF amoxicillin-pot clavulanate 875-125 mg tablet 1 tab PO BID Qty: 22 0RF Continued vitamin E 200 unit capsule 200 unit PO DAILY aspirin 81 mg tablet,chewable 81 mg PO Q OTHER DAY tamsulosin [Flomax] 0.4 mg capsule 0.4 mg PO QHS Qty: 30 0RF dapagliflozin propanediol 10 mg tablet 10 mg PO clopidogrel 75 mg tablet 75 mg PO Q OTHER DAY Qty: 45 3RF Held lisinopril 5 mg tablet 2.5 mg PO DAILY Hold Instructions: Until instructed to restart by cardiology Discontinued furosemide 40 mg tablet 80 mg PO QDAY Patient Comments: per may take BID if SOB dapagliflozin propanediol [Farxiga] 10 mg tablet 10 mg PO DAILY Referrals / Follow Up: Cj Gardiner MD [Med Staff - Active Staff] - In 1 Week (Call on Monday for an appointment) Pedro Gonzalez MD [Primary Care Provider] - Within 1 Week Glen Haywood MD [Med Staff - Active Staff] - Within 2 Weeks (Call on Monday for an appointment) Disposition Disposition (needs filled in before D/C Order can be placed): Home, Self Care Charges/Coding Visit Charges Inpatient E&M: 14109 Disch Hosp >30min
== END 2025-02-08 15:38 | disposition home or self-care (01) | DRG 871 ==
LOC: ED 18:15 → ICU 23:25 → PCU 02-06 16:24
PROVIDERS: Admitting Provider Family Medicine; Emergency Provider Emergency Medicine; PCP Family Medicine; Referring Provider Family Medicine; Visit Provider Internal Medicine
DX: A41.9 Sepsis, unspecified organism (principal); I21.A1 Myocardial infarction type 2; R57.0 Cardiogenic shock; R65.21 Severe sepsis with septic shock; I50.23 Acute on chronic systolic (congestive) heart failure; J96.01 Acute respiratory failure with hypoxia; I13.0 Hypertensive heart and chronic kidney disease with heart failure and stage 1 through stage 4 chronic kidney disease, or unspecified chronic kidney disease; E87.1 Hypo-osmolality and hyponatremia; N17.9 Acute kidney failure, unspecified; N13.8 Other obstructive and reflux uropathy; I27.21 Secondary pulmonary arterial hypertension; N18.30 Chronic kidney disease, stage 3 unspecified; I71.40 Abdominal aortic aneurysm, without rupture, unspecified; D64.9 Anemia, unspecified; Z95.2 Presence of prosthetic heart valve; E66.9 Obesity, unspecified; D69.6 Thrombocytopenia, unspecified; E78.5 Hyperlipidemia, unspecified; G47.33 Obstructive sleep apnea (adult) (pediatric); I35.0 Nonrheumatic aortic (valve) stenosis; I25.10 Atherosclerotic heart disease of native coronary artery without angina pectoris; I44.0 Atrioventricular block, first degree; I95.9 Hypotension, unspecified; I34.0 Nonrheumatic mitral (valve) insufficiency; K82.8 Other specified diseases of gallbladder; Z66 Do not resuscitate; Z95.1 Presence of aortocoronary bypass graft; I49.3 Ventricular premature depolarization; R91.1 Solitary pulmonary nodule; N40.1 Benign prostatic hyperplasia with lower urinary tract symptoms; R74.8 Abnormal levels of other serum enzymes; R74.01 Elevation of levels of liver transaminase levels; Z79.02 Long term (current) use of antithrombotics/antiplatelets; Z79.899 Other long term (current) drug therapy; Z79.82 Long term (current) use of aspirin; Z68.30 Body mass index [BMI] 30.0-30.9, adult
CPT/HCPCS: 36415; 51702; 71045; 71250; 74176; 76705; 78227; 80048; 80053; 80061; 81001; 82803; 83605; 83735; 83880; 84100; 84145; 84443; 84484; 85025; 85610; 85730; 87040; 87070; 87086; 87205; 87633; 93005; 93308; 94002; 94003; 94668; 94762; 97116; 97162; 97166; 97530; 97535; 97802; 99285; A9537; Q9957; A4216; C8924; J1938; J2405; J2805

== ENCOUNTER → 2025-02-11 | Outpatient (CLI) | payer OTHER, SELFPAY | END | disposition home or self-care (01) | LOC: PSN 11:17 | PROVIDERS: PCP Family Medicine; Referring Provider Nurse Practitioner Family; Visit Provider Nurse Practitioner Family | DX: I49.3 Ventricular premature depolarization (principal) | CPT/HCPCS: 93225; 93226 ==

== ENCOUNTER 2025-04-02 10:48 | Emergency (ER) | payer OTHER, SELFPAY ==
[2025-04-02 10:48] VITALS: BP 112/71; PULSE 75; RESP 20; TEMP 36.4; O2SAT 99
--- NOTE | 2025-04-02 11:02 | RAD_ITS ---
PROCEDURE: CHEST PA AND LATERAL 04/02/2025 REASON FOR EXAM: SOB, LIKELY CHF TECHNIQUE: CHEST PA AND LATERAL COMPARISON: Chest x-ray of 02/04/2025 RAD/Chest PA and Lateral IMPRESSION: Prior sternotomy again seen. Aortic valve stent graft in place. Prior coronar y artery stenting noted. Right costophrenic angle blunting is seen, most consistent with a small right p leural effusion. Mild interstitial pulmonary edema also noted. No focal infiltrate is seen. No pneumothorax is noted. The cardiomediastinal silhouette is remarkable for a partially calcified and to rtuous aorta. No significant cardiomegaly. 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 Narayan ateral shoulder degenerative changes are seen, right worse than left. Reading Location: [place] [id number]
--- NOTE | 2025-04-02 11:02 | EKG12_ITS ---
Test Reason : Blood Pressure : */* mmHG Vent. Rate : 75 BPM Atrial Rate : 75 BPM P-R Int : 246 ms QRS Dur : 96 ms QT Int : 416 ms P-R-T Axes : 102 -11 164 degrees QTcB Int : 464 ms Sinus rhythm with 1st degree A-V block Inferior infarct , age undetermined T wave abnormality, consider lateral ischemia Abnormal ECG Confirmed by JENSEN BROOKS, GLADYS ([id number]), research editor SAMMI LIMA ([id number]) on 04/03/2025 1:34:17 PM Referred By: Confirmed By: GLADYS STYLES MD
--- NOTE | 2025-04-02 11:03 | ED.VIS.DYS ---
HPI History of Present Illness Chief Complaint: Shortness of Breath Narrative Narrative: Patient is an 85-year-old male presenting to the emergency department for dyspnea on exertion. Patient has a past medical history of HFrEF, PVCs, hyponatremia, GI, hyperlipidemia, CAD. Patient states that for the past few weeks he has been more short of breath than normal. Reports that it is worsened over the past 2 days. States that even taking a shower will make him short of breath. States that yesterday he had doubled up on his Lasix as well as today and he still having no improvement. He reports of chronic dry cough. Denies any fever or chills. Denies chest pain. Denies any abdominal pain, nausea, vomiting, diarrhea. Denies any lower extremity edema. Denies any history of DVT or PE. Denies any history of recent travel, surgeries or hospitalizations. [facility] Medical History Abdominal aortic aneurysm PVC (premature ventricular contraction) Thrombocytopenia Multifocal PVCs Chronic systolic (congestive) heart failure GI treated with BiPAP Valvular heart disease HTN (hypertension) CAD (coronary artery disease) HFrEF (heart failure with reduced ejection fraction) Daytime hypersomnolence Nonrheumatic aortic (valve) stenosis Hyperlipidemia Atherosclerotic heart disease of [place] coronary artery without angina pectoris Atherosclerosis of coronary artery bypass graft without angina pectoris (~03/29/22) Home Medications ?Medication ?Instructions ?Recorded ?Last Taken ?Type vitamin E 200 unit capsule 200 unit PO DAILY 09/14/20 Unknown History aspirin 81 mg chewable tablet 81 mg PO Q OTHER DAY 09/10/21 03/29/22 History tamsulosin 0.4 mg capsule (Flomax) 0.4 mg PO QHS #30 caps 01/27/22 Unknown Rx clopidogrel 75 mg tablet 75 mg PO Q OTHER DAY #45 tabs 11/12/24 Unknown Rx metoprolol tartrate 25 mg tablet 12.5 mg (1/2 x 25 mg) PO DAILY #60 02/08/25 Unknown Rx tabs dapagliflozin propanediol 10 mg 10 mg PO QDAY heart #90 tabs 02/26/25 Unknown Rx tablet furosemide 40 mg tablet 40 mg PO BID 02/26/25 Unknown History Allergy/AdvReac Type Severity Reaction Status Date / Time No Known Allergies Allergy Verified 02/26/25 08:57 Family History Father Myocardial infarction CVA (cerebral vascular accident) Mother CHF (congestive heart failure) Brother CAD (coronary artery disease) Cancer leukemia Surgical History Presence of coronary artery bypass graft stent (~03/29/22) History of arthroplasty of knee H/O coronary artery bypass surgery (~01/2002) History of left inguinal hernia repair (~1961) Presence of stent in coronary artery Postsurgical percutaneous transluminal coronary angioplasty (PTCA) status History of aortic valve replacement with bioprosthetic valve (~12/27/17) Social History adopted: No household members: spouse housing: house number of children: 6 current occupational status: employed 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 No acute distress HEENT: Head is normocephalic and atraumatic, sinuses nontender, pupils equal round and reactive. Nares are patent. Oropharynx and throat exams normal. Neck: Supple without lymphadenopathy nontender Cardiovascular: Regular rate and rhythm, no murmurs. No rubs or gallops. Normal S1 and S2 Respiratory: Clear to auscultation bilaterally. No wheezes, rales, rhonchi. 99% on room air Abdominal: Soft and nontender. Normal bowel sounds. No guarding or rebound. Nonsurgical abdomen Extremities: No tenderness. No bruising. Normal range of motion. Normal sensation. No lower extremity edema noted Skin: No rash or redness. Neurological: Cranial nerves II through XII are grossly intact. Normal strength and sensation. Normal cerebellar function The rest of the physical exam is unremarkable Const Vital Signs: 04/02/25 10:48 04/02/25 11:08 04/02/25 11:35 Temperature 97.6 F L 98.1 F Temperature Source Temporal Oral Pulse Rate 75 71 Respiratory Rate 20 H 20 H Respiratory Effort Normal Non-Labored Blood Pressure 112/71 106/69 Blood Pressure Mean 84 81 Pulse Ox 99 98 Oxygen Delivery Method Room Air Room Air 04/02/25 12:15 Temperature Temperature Source Pulse Rate 73 Respiratory Rate 20 H Respiratory Effort Blood Pressure 115/74 Blood Pressure Mean 87 Pulse Ox 97 Oxygen Delivery Method Room Air MDM MDM MDM Narrative Medical decision making narrative: Patient is an 85-year-old male presenting to emergency department for shortness of breath. Patient was seen and examined. Vitals are stable. Patient saturating 99% on room air. No acute distress Differential includes but is not limited to: CHF exacerbation, pneumonia, viral illness, ACS, less likely PE no hypoxia, tachycardia or significant risk factors CBC with no leukocytosis and chronic anemia of 11.8. BMP with slightly improved BUN and creatinine from baseline. BNP elevated at 8907, however compare to prior again much improved. Troponin elevated at 73, reflex downtrending at 67. On comparison to recent, improved from 114. EKG shows sinus rhythm with first-degree AV block. He has some mild ST depressions in V4 through V6 that look improved from prior on 02/04/25. Chest x-ray reviewed by myself and shows some mild cardiomegaly with interstitial edema. Radiology reviewed with small right pleural effusion and mild interstitial pulmonary edema with no focal infiltrate. Patient was given 40 mg IV Lasix. Patient is saturating 97 to 99% on room air. He is ambulated with pulse ox and is saturating 95%. Given his improved labs from baseline and given no hypoxia with ambulation patient can be managed as an outpatient. He was instructed to double his Lasix for the next week and to speak with his dry starch operator for further recommendations. Instructed to return with any worsening shortness of breath, chest pain, leg swelling or significant weight gain. He was recommended to track his weights every day. Patient discharged from the Emergency Department. I do not feel that the patient's evaluation reveals any acute reason for admission at this time. I instructed them to either follow-up with their primary care physician or promptly return to the Emergency Department for reevaluation should symptoms worsen or new symptoms develop. I explained what symptoms would indicate the need to return to the emergency department. Shared decision making was used. The patient voiced understanding of the treatment plan and is agreeable with it. Clinical impression CHF exacerbation Dyspnea History & Record Review Discussion w/independent historian: Patient and Family Lab Data Attestation: I reviewed the patient's lab results. Labs: Laboratory Results - last 24 hr 04/02/25 04/02/25 11:00 13:05 WBC 6.8 RBC 3.99 L Hgb 11.8 L Hct 36.8 L MCV 92.2 MCH 29.6 MCHC 32.1 RDW Std Deviation 56.3 H RDW Coeff of Jenaro 16.9 H Plt Count 137 L MPV 10.4 Immature Gran % (Auto) 0.300 Neut % (Auto) 63.8 Lymph % (Auto) 24.8 [place] % (Auto) 9.0 Eos % (Auto) 1.5 Baso % (Auto) 0.6 Absolute Neuts (auto) 4.3 Absolute Lymphs (auto) 1.68 Nucleated RBC % 0 Sodium 135 Potassium 4.2 Chloride 98 Carbon Dioxide 24.8 Anion Gap 12 BUN 28 H Creatinine 1.45 H Estim Creat Clear Calc 38.10 L Est GFR (MDRD) Non-Af 47 L BUN/Creatinine Ratio 19.2 Glucose 104 H Calcium 8.9 Troponin T High Sens 73 H* D Troponin T Hi Sens 2 Hr 67 H* NT pro BNP II 8907 H Radiography Diagnostic Testing: Clinical Impression(s) from Imaging Studies Chest X-Ray 04/02/25 11:02 IMPRESSION: Prior sternotomy again seen. Aortic valve stent graft in place. Prior coronary artery stenting noted. Right costophrenic angle blunting is seen, most consistent with a small right pleural effusion. Mild interstitial pulmonary edema also noted. No focal infiltrate is seen. No pneumothorax is noted. The cardiomediastinal silhouette is remarkable for a partially calcified and tortuous aorta. No significant cardiomegaly. 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 Bilateral shoulder degenerative changes are seen, right worse than left. Reading Location: [place] [id number] Discharge Plan Triage Chief Complaint: Shortness of Breath ED Provider: Dionne Montes Dx/Rx/DC Orders Clinical Impression: SOB (shortness of breath), Acute exacerbation of CHF (congestive heart failure) Instructions: Heart Failure: Tracking Your Weight, Heart Failure Care Prescriptions: No Action vitamin E 200 unit capsule 200 unit PO DAILY furosemide 40 mg tablet 40 mg PO BID Rx Instructions: Please take an extra dose if your shortness of breath worsens dapagliflozin propanediol 10 mg tablet 10 mg PO QDAY Qty: 90 3RF aspirin 81 mg tablet,chewable 81 mg PO Q OTHER DAY tamsulosin [Flomax] 0.4 mg capsule 0.4 mg PO QHS Qty: 30 0RF metoprolol tartrate 25 mg tablet 12.5 mg PO DAILY Qty: 60 0RF clopidogrel 75 mg tablet 75 mg PO Q OTHER DAY Qty: 45 3RF Primary Care Provider: Pedro Gonzalez Referrals: Your dry starch operator [Other] - 2 Days Pedro Gonzalez MD [Primary Care Provider] - 2 Days Activity Restrictions/Additional Instructions: Double up your Lasix dose at home as discussed. Track your weights as discussed. Your evaluation in the Emergency Department did not reveal any acute reason for admission. However, I want to emphasize that you may be early in the course of a disease process or illness even if it is not present. For this reason you should follow-up within 24 hours for reevaluation with either your primary care physician or if necessary back here in the Emergency Department. You should return to the Emergency Department immediately if your symptoms worsen or new symptoms develop. Print Language: Luxembourgish Disposition Disposition: Home, Self Care Discharge Date/Time: 04/02/25 14:56
[2025-04-02 11:11] LABS: Hematocrit 36.8 % (40-54); Hemoglobin 11.8 g/dL (13.0-16.5); Immature Granulocytes Count 0.020 X10^3/uL (0.0-0.0); Mean Corp Hgb Conc 32.1 g/dL (32-36); Mean Corpuscular Volume 92.2 fL (80-94); Mean Platelet Vol. 10.4 fl (6.2-12.0); NRBC Flagged by Analyzer 0 % (0-5); Platelet Count 137 K/mm3 (150-450); RBC Distribution Width CV 16.9 % (11.6-14.6); RBC Distribution Width SD 56.3 fl (35.1-43.9); Red Blood Count 3.99 M/mm3 (4.6-6.2); White Blood Count 6.8 K/mm3 (4.4-11.0)
[2025-04-02 11:35] VITALS: BP 106/69; PULSE 71; RESP 20; TEMP 36.7; O2SAT 98; BMI 30.2
[2025-04-02 11:35] LABS: Troponin T High Sensitivity 73 ng/L (<=22)
[2025-04-02 11:37] LABS: Pro- Brain NATRIURETIC PEPTIDE 8907 pg/mL (<=1800)
[2025-04-02 11:38] LABS: Anion Gap 12 (5-15); BUN 28 mg/dL (4-19); BUN/Creat Ratio 19.2 RATIO (10-20); Calcium,Total 8.9 mg/dL (7.6-11.0); Carbon Dioxide 24.8 mmol/L (21.0-32.0); Chloride 98 mmol/L (98-108); Estimated Creatinine Clearance 38.10 ml/min (50-250); Glucose 104 mg/dL (70-99); Potassium 4.2 mmol/L (3.3-5.1)
[2025-04-02 12:15] VITALS: BP 115/74; PULSE 73; RESP 20; O2SAT 97
[2025-04-02 13:26] VITALS: O2SAT 97
--- NOTE | 2025-04-02 14:08 | NUR.TO.PHY ---
DR. RUIZ NOTIFIED OF TROP 67
[2025-04-02 14:09] LABS: Troponin T High Sens 2 HR 67 ng/L (<=22)
--- NOTE | 2025-04-02 14:55 | ED.RN ---
pt reports feeling less SOB than previously with ambulation to bathroom.
== END 2025-04-02 14:56 | disposition home or self-care (01) ==
PROVIDERS: Emergency Provider Student in an Organized Health Care Education/Training Program; PCP Family Medicine; Visit Provider Student in an Organized Health Care Education/Training Program
DX: R06.02 Shortness of breath (principal); I11.0 Hypertensive heart disease with heart failure; I50.21 Acute systolic (congestive) heart failure; E78.5 Hyperlipidemia, unspecified; I25.10 Atherosclerotic heart disease of native coronary artery without angina pectoris
CPT/HCPCS: 71046; 80048; 83880; 84484; 85025; 93005; 96374; 99284; A4216; J1938

== ENCOUNTER 2025-04-16 09:44 | Outpatient (CLI) | payer OTHER, SELFPAY ==
[2025-04-16 12:33] LABS: Hematocrit 37.1 % (40-54); Hemoglobin 11.8 g/dL (13.0-16.5); Immature Granulocytes Count 0.010 X10^3/uL (0.0-0.0); Mean Corp Hgb Conc 31.8 g/dL (32-36); Mean Corpuscular Volume 92.1 fL (80-94); Mean Platelet Vol. 10.9 fl (6.2-12.0); NRBC Flagged by Analyzer 0 % (0-5); Platelet Count 144 K/mm3 (150-450); RBC Distribution Width CV 17.0 % (11.6-14.6); RBC Distribution Width SD 57.1 fl (35.1-43.9); Red Blood Count 4.03 M/mm3 (4.6-6.2); White Blood Count 6.1 K/mm3 (4.4-11.0)
[2025-04-16 13:12] LABS: AST(SGOT) 27 U/L (<=37); Alanine Aminotransfer ALT/SGPT 23 U/L (<=46); Albumin, Serum 4.0 g/dL (3.4-4.8); Alkaline Phosphatase 111 U/L (40-129); Anion Gap 14 (5-15); BUN 32 mg/dL (4-19); BUN/Creat Ratio 20.7 RATIO (10-20); Calcium,Total 9.4 mg/dL (7.6-11.0); Carbon Dioxide 24.6 mmol/L (21.0-32.0); Chloride 102 mmol/L (98-108); Globulin 3.0 g/dL (2.2-4.2); Glucose 100 mg/dL (70-99); Potassium 4.2 mmol/L (3.3-5.1); Pro- Brain NATRIURETIC PEPTIDE 8529 pg/mL (<=1800)
== END 2025-04-16 23:59 | disposition home or self-care (01) ==
LOC: MFPLAB 09:45
PROVIDERS: PCP Family Medicine; Visit Provider Family Medicine
DX: I27.20 Pulmonary hypertension, unspecified (principal); I50.20 Unspecified systolic (congestive) heart failure; E78.2 Mixed hyperlipidemia; Z95.5 Presence of coronary angioplasty implant and graft
CPT/HCPCS: 36415; 80053; 83880; 85025

== ENCOUNTER 2025-05-18 23:12 | Inpatient (IN) | payer OTHER, SELFPAY ==
[2025-05-18 23:12] VITALS: BP 103/69; PULSE 109; RESP 30; TEMP 36.5; O2SAT 98
--- NOTE | 2025-05-18 23:25 | EKG12_ITS ---
Test Reason : SOB Blood Pressure : */* mmHG Vent. Rate : 77 BPM Atrial Rate : 77 BPM P-R Int : 226 ms QRS Dur : 102 ms QT Int : 422 ms P-R-T Axes : 76 3 191 degrees QTcB Int : 477 ms Sinus rhythm with 1st degree A-V block with occasional Premature ventricular complexes Inferior infarct (cited on or before 27-Jan-2022) Abnormal ECG Confirmed by CARLA BROOKS, CARLOS ([id number]), field map editor DAMIR SPARROW ([id number]) on 05/19/2025 8:39:33 AM Referred By: Confirmed By: CARLOS AGUIRRE MD
[2025-05-18 23:26] VITALS: BMI 31.4
[2025-05-18 23:30] VITALS: BP 110/76; PULSE 75; RESP 20; TEMP 36.5; O2SAT 96
--- NOTE | 2025-05-18 23:31 | ED.VIS.DYS ---
HPI History of Present Illness Chief Complaint: Shortness of Breath Informant: patient Narrative Narrative: Patient is an 85-year-old male with history of heart failure with reduced ejection fraction, CKD, nonrheumatic aortic valve stenosis?status post aortic valve stent, coronary disease status post stenting and GI (wears BiPAP at night) presenting for worsening shortness of breath. Worsening over the past 4 days or so and he has also had weight gain despite doubling his Lasix the past 3 days (now taking 80 mg twice a day). He denies any chest pain. Get very winded with only taken a couple steps. Does not wear oxygen at home. Feels that his abdomen is distended. Is not sure if his legs are more swollen than normal or not. Denies any fevers. Does have a nonproductive cough. Could not sleep tonight because he could not lay down in bed because of his respiratory symptoms which is what prompted him and his family to come to the emergency room. Denies any fever or chills. No other complaints or concerns reported this time. States he had a normal bowel movement earlier today. Denies any history of DVT or PE. Discharge summary from 04/08/2025 reviewed?patient was treated for acute exacerbation of heart failure and also had demand ischemia with his troponins. EF at that time was 25% which was down from prior EF. Was also noted to have some gallbladder wall thickening and HIDA scan showed ejection fraction of 10% however patient was not symptomatic from that standpoint. Recommend against any surgical intervention given cardiac issues. Was supposed to follow-up outpatient with general surgery. [facility] Medical History Abdominal aortic aneurysm PVC (premature ventricular contraction) Thrombocytopenia Multifocal PVCs Chronic systolic (congestive) heart failure GI treated with BiPAP Valvular heart disease HTN (hypertension) CAD (coronary artery disease) HFrEF (heart failure with reduced ejection fraction) Daytime hypersomnolence Nonrheumatic aortic (valve) stenosis Hyperlipidemia Atherosclerotic heart disease of [place] coronary artery without angina pectoris Atherosclerosis of coronary artery bypass graft without angina pectoris (~03/29/22) Home Medications ?Medication ?Instructions ?Recorded ?Last Taken ?Type vitamin E 200 unit capsule 200 unit PO DAILY 09/14/20 Unknown History aspirin 81 mg chewable tablet 81 mg PO Q OTHER DAY 09/10/21 03/29/22 History tamsulosin 0.4 mg capsule (Flomax) 0.4 mg PO QHS #30 caps 01/27/22 Unknown Rx clopidogrel 75 mg tablet 75 mg PO Q OTHER DAY #45 tabs 11/12/24 Unknown Rx dapagliflozin propanediol 10 mg 10 mg PO QDAY heart #90 tabs 02/26/25 Unknown Rx tablet metoprolol succinate 25 mg 12.5 mg (1/2 x 25 mg) PO DAILY #45 04/07/25 Unknown Rx tablet,extended release 24 hr tabs furosemide 40 mg tablet 80 mg (2 x 40 mg) PO QDAY #60 tabs 04/10/25 Unknown Rx escitalopram oxalate 10 mg tablet 10 mg PO 05/18/25 Unknown History hydrochlorothiazide 25 mg tablet 25 mg PO DAILY 05/18/25 Unknown History oxycodone 5 mg tablet 5 mg PO QHS 05/18/25 Unknown History Allergy/AdvReac Type Severity Reaction Status Date / Time No Known Allergies Allergy Verified 05/18/25 23:26 Family History Father Myocardial infarction CVA (cerebral vascular accident) Mother CHF (congestive heart failure) Brother CAD (coronary artery disease) Cancer leukemia Surgical History Presence of coronary artery bypass graft stent (~03/29/22) History of arthroplasty of knee H/O coronary artery bypass surgery (~01/2002) History of left inguinal hernia repair (~1961) Presence of stent in coronary artery Postsurgical percutaneous transluminal coronary angioplasty (PTCA) status History of aortic valve replacement with bioprosthetic valve (~12/27/17) Social History adopted: No household members: spouse housing: house number of children: 6 current occupational status: employed 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 current occupational exposures/hazards: No pets and animals: Yes (chickens 2 and 1 horse) leisure activities: hunting and fishing history of recent travel: No Smoking Status: Never smoker alcohol intake: never substance use type: does not use caffeine: No what type of physical activity do you participate in: walking frequency: 5-6 times per week duration: 30-45 minutes/day seatbelt use: sometimes do you feel safe at home: Yes ROS ROS ED Constitutional Constitutional ED: Denies chills Cardiovascular Cardiovascular: Denies chest pain or palpitations Respiratory/Chest Respiratory/Chest: Reports cough, dyspnea and dyspnea on exertion; Denies sputum Gastrointestinal Gastrointestinal: Reports other Details: Abdominal distention ; Denies nausea or vomiting Musculoskeletal Musculoskeletal: Denies arthralgias or myalgias Neurologic Neurologic: Reports weakness Hematologic/Lymphatic Hematologic/Lymphatic: Denies easy bleeding or easy bruising EXAM Physical Exam Const Vital Signs: 05/18/25 23:12 05/18/25 23:30 05/18/25 23:31 Temperature 97.7 F L 97.7 F L Temperature Source Oral Oral Pulse Rate 109 H 75 Respiratory Rate 30 H 20 H Respiratory Effort Respiratory Depth Respiratory Pattern Blood Pressure 103/69 110/76 Blood Pressure Mean 80 87 Pulse Ox 98 96 Oxygen Delivery Method Room Air Room Air Room Air Oxygen Flow Rate (L/min) 05/18/25 23:33 05/19/25 00:14 05/19/25 01:00 Temperature 97.7 F L 97.7 F L Temperature Source Oral Oral Pulse Rate 80 76 Respiratory Rate 20 H 19 H Respiratory Effort Short of Breath Labored Respiratory Depth Shallow Respiratory Pattern Tachypnea Blood Pressure 112/80 112/99 H Blood Pressure Mean 90 103 Pulse Ox 93 95 Oxygen Delivery Method Nasal Cannula Nasal Cannula Oxygen Flow Rate (L/min) 2 2 05/19/25 01:42 Temperature 97.7 F L Temperature Source Pulse Rate 76 Respiratory Rate 19 H Respiratory Effort Respiratory Depth Respiratory Pattern Blood Pressure 112/99 H Blood Pressure Mean 103 Pulse Ox 95 Oxygen Delivery Method Oxygen Flow Rate (L/min) Positive well nourished and well developed General Appearance ED: well developed; Negative for pallor HEENT Reports moist mucous membranes HEENT Narrative: Slight perioral cyanosis present Eyes PERRL Neck supple Neck Narrative: Positive JVD Resp Resp Narrative: Mildly tachypneic, No crackles appreciated. Diminished breath sounds at the right base Cardio regular rate and regular rhythm GI non-tender GI Narrative: Protuberant abdomen Palpation: soft; Negative for tender or guarding Extremity Extremity Narrative: Trace pedal edema, left worse than right Neuro oriented x3 Sensorium / Orientation: alert Speech: speech normal Motor Exam: general weakness Psych mental status grossly normal Skin no wounds General Skin Exam: Negative for pallor MDM MDM MDM Narrative Medical decision making narrative: Patient evaluated for weight gain and worsening shortness of breath despite doubling his Lasix. Differential includes CHF exacerbation, ACS, pericardial effusion, pleural effusion, pulmonary emboli, symptomatic anemia, pneumothorax. Lower suspicion for pneumonia as he does not report any fevers or productive cough. Workup including CBC, D-dimer, BMP, lactate, ABG, high sensitive troponins and BNP are obtained. Patient's ABG is consistent with hyperventilation and hypoxia with a pO2 of 43 and O2 saturation of 84%. He is placed on supplemental oxygen. No signs of hypercapnia/retaining or metabolic acidosis. CBC largely stable. D-dimer is significantly elevated 3.18 and despite having's acute renal insufficiency (creatinine 2.11 with a baseline of 1.5) I think the benefits outweigh the risk obtain CTA to rule out pulmonary emboli. CTA shows no PE but does show progression of right pleural effusion with some underlying compressional atelectasis. Patient has elevated lactate of 3.0 however I think it is from hypoxia and not infection. BNP is elevated but is actually slightly downtrending. His troponin is elevated but stable at 87 and then 82. Again I suspect this is demand ischemia associated with his acute respiratory status. Given acute hypoxia patient will be admitted to the hospital for submental oxygen and diuresis. Suspect is associated with CHF exacerbation/his pleural effusion. He started on Lasix drip as he does have soft blood pressures in the ER and I do not want to precipitate any hypotensive event. Patient and agreeable this plan of care. Case discussed with hospitalist, Dr. Cancino. Lab Data Labs: Laboratory Results - last 24 hr 05/18/25 05/19/25 23:30 01:37 WBC 6.5 RBC 4.49 L Hgb 12.7 L Hct 40.2 MCV 89.5 MCH 28.3 MCHC 31.6 L RDW Std Deviation 53.7 H RDW Coeff of [place] 16.3 H Plt Count 116 L MPV 11.8 Immature Gran % (Auto) 0.300 Neut % (Auto) 54.7 Lymph % (Auto) 32.8 [place] % (Auto) 10.1 H Eos % (Auto) 1.5 Baso % (Auto) 0.6 Absolute Neuts (auto) 3.6 Absolute Lymphs (auto) 2.14 Nucleated RBC % 0.3 D-Dimer Quant (PE/DVT) 3.18 H* Sodium 136 Potassium 3.9 Chloride 96 L Carbon Dioxide 22.7 Anion Gap 18 H BUN 43 H Creatinine 2.11 H Estim Creat Clear Calc 26.65 L Est GFR (MDRD) Non-Af 30 L BUN/Creatinine Ratio 20.3 H Glucose 101 H Lactic Acid 3.0 H* Calcium 9.1 Magnesium 2.7 H Troponin T High Sens 87 H* D Troponin T Hi Sens 2 Hr 82 H* NT pro BNP II 6299 H ABG Data ABG results: ABG 05/18/25 23:51 Specimen Type ART Sample Site L Radial pH 7.50 H Bicarbonate Actual 24.2 Total CO2 25 Base Excess 1 O2 Saturation 84 L ABG pCO2 30.9 L ABG pO2 43 L Hal Test Positive O2 Delivery Device Room Air Vent Mode Not entered Radiography Chest X-Ray - ED: 1 View, Read by ED Physician, Read by Radiologist, Cardiomegaly and CHF Diagnostic Testing: Clinical Impression(s) from Imaging Studies Chest X-Ray 05/18/25 23:55 IMPRESSION: As above. Reading Location: [id number] Chest CTA 05/19/25 00:25 IMPRESSION: No evidence of pulmonary arterial thromboembolism. Progression of the right pleural effusion currently appears as moderate with underlying subsegmental compression atelectasis. Resolution of the left pleural effusion. Stable rest of the study findings. Reading Location: [place] [id number] Rhythm Strip Rhythm Strip: Sinus Rhythm Rate: 77 Ectopy: PVC(s) EKG Initial EKG: Attestation: I personally reviewed and interpreted this EKG as follows: Interpretation: Sinus Rhythm Comments: Normal sinus rhythm rate of 77 beats minute with first-degree AV block and PVC MD interval [address] segments Compared to prior EKG on 04/02/2025, no acute changes Management Discussion w/another healthcare provider: Hospitalist Discharge Plan Dx/Rx/DC Orders Clinical Impression: Acute exacerbation of chronic heart failure, Hypoxia, Dyspnea on exertion, Presence of coronary artery bypass graft stent, Acute on chronic kidney failure Disposition Disposition: Acute Care Hospital [facility] Discharge Date/Time: 05/19/25 02:31
[2025-05-18 23:39] LABS: Hematocrit 40.2 % (40-54); Hemoglobin 12.7 g/dL (13.0-16.5); Immature Granulocytes Count 0.020 X10^3/uL (0.0-0.0); Mean Corp Hgb Conc 31.6 g/dL (32-36); Mean Corpuscular Volume 89.5 fL (80-94); Mean Platelet Vol. 11.8 fl (6.2-12.0); NRBC Flagged by Analyzer 0.3 % (0-5); Platelet Count 116 K/mm3 (150-450); RBC Distribution Width CV 16.3 % (11.6-14.6); RBC Distribution Width SD 53.7 fl (35.1-43.9); Red Blood Count 4.49 M/mm3 (4.6-6.2); White Blood Count 6.5 K/mm3 (4.4-11.0)
[2025-05-18 23:54] LABS: Anion Gap 18 (5-15); BUN 43 mg/dL (4-19); BUN/Creat Ratio 20.3 RATIO (10-20); Calcium,Total 9.1 mg/dL (7.6-11.0); Carbon Dioxide 22.7 mmol/L (21.0-32.0); Chloride 96 mmol/L (98-108); Estimated Creatinine Clearance 26.65 ml/min (50-250); Glucose 101 mg/dL (70-99); Potassium 3.9 mmol/L (3.3-5.1); Pro- Brain NATRIURETIC PEPTIDE 6299 pg/mL (<=1800); Troponin T High Sensitivity 87 ng/L (<=22)
--- NOTE | 2025-05-18 23:55 | RAD_ITS ---
PROCEDURE: CHEST 1 VIEW (PORTABLE) 05/18/2025 REASON FOR EXAM: SOB TECHNIQUE: Frontal view of the chest. COMPARISON: 04/02/2025. FINDINGS: Previously documented blunting of the right lateral costophrenic angle is not appreciated on today's study. Otherwise no significant interval change. The heart remains enlarged with perihilar haziness which may represent mild perihilar infiltrates. Stable postsurgical changes of a CABG procedure. No acute osseous abnormality. RAD/Chest 1 View (Portable) IMPRESSION: As above. Reading Location: [id number]
[2025-05-18 23:56] LABS: Allen Test Positive; Base Excess 1 mmol/L (-2 to +2); PO2 43 mmHG (75-100); SITE L Radial; SO2 84 % (95-99)
[2025-05-19] VITALS (14 sets, daily range): BP systolic 86–116; BP diastolic 55–99; PULSE 42–96; RESP 16–20; TEMP 36.5–36.7; O2SAT 87–100; BMI 31.5
[2025-05-19 00:07] LABS: D-Dimer Quantitative (DVT/PE) 3.18 FEU/ug/m (0.27-0.49)
--- OUTSIDE RECORDS SUMMARY | 2025-05-19 00:11 | XMS RPT_ITS | CCD ---
Author Organization [facility] Care Team Providers Care Senior Net Software Engineer Name Role Phone WHITE, LADARIUS Unavailable Unavailable WHITE, LADARIUS Unavailable Unavailable WHITE, LADARIUS Unavailable Unavailable WHITE, LADARIUS Unavailable Unavailable WHITE, LADARIUS Unavailable Unavailable WHITE, LADARIUS Unavailable Unavailable WHITE, LADARIUS Unavailable Unavailable UNAI, SHINYA Unavailable Unavailable WHITE, LADARIUS Unavailable Unavailable VANESSA COLVIN L (WET WHEELER) Unavailable Unavailable WHITE, LADARIUS Unavailable Unavailable WHITE, LADARIUS Unavailable Unavailable WHITE, LADARIUS Unavailable Unavailable WHITE, LADARIUS Unavailable Unavailable WHITE, LADARIUS Unavailable Unavailable WHITE, LADARIUS Unavailable Unavailable WHITE, LADARIUS Unavailable Unavailable WHITE, LADARIUS Unavailable Unavailable ALLEN, FAROOQ R Unavailable Unavailable ALLEN, FAROOQ R Unavailable Unavailable ALLEN, FAROOQ R Unavailable Unavailable BARTBHARGAV VALVERDE (PA) Unavailable Unavailable ALLEN, FAROOQ R Unavailable Unavailable ALLEN, FAROOQ R Unavailable Unavailable ALLEN, FAROOQ R Unavailable Unavailable ALLEN, FAROOQ R Unavailable Unavailable ALLEN, FAROOQ R Unavailable Unavailable ALLEN, FAROOQ R Unavailable Unavailable ALLEN, FAROOQ R Unavailable Unavailable ALLEN, FAROOQ R Unavailable Unavailable BARTBHARGAV VALVERDE (PA) Unavailable Unavailable ALLEN, FAROOQ R Unavailable Unavailable ALLEN, FAROOQ R Unavailable Unavailable WHITE, LADARIUS Unavailable Unavailable SAJI PENA DR Admitting Unavailable SAJI PENA DR Attending Unavailable SAJI PENA DR Primary Care Unavailable PEDRO GONZALEZ Consulting Unavailable PROVIDER, UNKNOWN Consulting Unavailable SAJI PENA DR Admitting Unavailable SAJI PENA DR Attending Unavailable PEDRO GONZALEZ Referring Unavailable SAJI PENA DR Primary Care Unavailable PEDRO GONZALEZ Consulting Unavailable PROVIDER, UNKNOWN Consulting Unavailable SAJI PENA DR Admitting Unavailable SAJI PENA DR Attending Unavailable SAJI PENA DR Primary Care Unavailable PEDRO GONZALEZ Consulting Unavailable PROVIDER, UNKNOWN Consulting Unavailable SAJI PENA DR Admitting Unavailable SAJI PENA DR Attending Unavailable SAJI PENA DR Primary Care Unavailable PEDRO GONZALEZ Consulting Unavailable PROVIDER, UNKNOWN Consulting Unavailable Dr. Pedro Gonzalez Primary Care Provider Dr. Pedro Gonzalez Referring Provider Roof SENIOR ENVIRONMENTAL ENGINEER, SENIOR ENVIRONMENTAL ENGINEER-C Andrzej Morales Attending Provider Dr. Pedro Gonzalez Primary Care Provider Dr. Pedro Gonzalez Referring Provider Roof SENIOR ENVIRONMENTAL ENGINEER, SENIOR ENVIRONMENTAL ENGINEER-C Andrzej Morales Attending Provider Zurita SENIOR ENVIRONMENTAL ENGINEER, SENIOR ENVIRONMENTAL ENGINEER-C Attending Provider Dr. Brady Escalera Attending Provider Dr. Brady Escalera Other Provider Dr. Pedro Gonzalez MD Primary Care Provider Dr. Pedro Gonzalez MD Referring Provider Roof SENIOR ENVIRONMENTAL ENGINEER-C, Andrzej Morales Attending Provider Isis SENIOR ENVIRONMENTAL ENGINEER-C, Andrzej Morales Referring Provider Dr. Pedro Gonzalez MD Primary Care Provider Melodie SENIOR ENVIRONMENTAL ENGINEER-C, Karo Attending Provider Melodie SENIOR ENVIRONMENTAL ENGINEER-C, Karo Referring Provider Jose Lopez MD Emergency Provider [phone] Sophia BROOKS, Dr. Merlos Admit Provider Unavailable Sophia BROOKS, Dr. Merlos Attending Provider Unavailjourdan Cortes MD, Dr. Merlos Other Provider Unavailable Eamon BROOKS, Dr. Samaniego Attending Provider Dr. Pedro Gonzalez MD Referring Provider Roof SENIOR ENVIRONMENTAL ENGINEER-C, Andrzej Morales Attending Provider Eamon BROOKS, Dr. Samaniego Attending Provider Dr. Pedro Gonzalez MD Referring Provider Dr. Maryanne Emanuel DO Emergency Provider Julita BROOKS, Dr. Rea Santiago Attending Provider Julita BROOKS, Dr. Rea Santiago Admit Provider Julita BROOKS, Dr. Rea Santiago Referring Provider Abdifatah BROOKS, Dr. Corona Other Provider Lizzie BROOKS, Dr. Flores Other Provider Rosibel BROOKS, Dr. Hummel Other Provider Chemo BROOKS, Dr. Zamarripa Other Provider Tarik TILLEY, Dr. Croft Other Provider Radha BROOKS, Dr. Gaurang Melgar Other Provider Su BROOKS, Dr. Ferro Other Provider Valeriy BROOKS, Dr. Brink Other Provider Velia BROOKS, Dr. Johnson Other Provider Iliana BROOKS, Dr. Rodriguez Other Provider [phone] Jose M BROOKS, Dr. Braxton Other Provider [phone] Dr. Ron Vegas MD Other Provider [phone] Ammy BROOKS, Dr. Menjivar Other Provider Sierra BROOKS, Dr. Cortez Other Provider Unavailabl roz Benson MD, Dr. Walker Other Provider Jessica BROOKS, Dr. Joe Other Provider Fernando BROOKS, Dr. Ace Other Provider Paola BROOKS, Dr. Rueda Other Provider Dr. Delon Jarrell DO Other Provider Dr. Gagandeep Olmos MD Other Provider Emile BROOKS, Dr. Maria Other Provider Dr. Wilmer Chong DO Other Provider Thien BROOKS, Dr. Long Other Provider Tad BROOKS, Dr. Szymanski Other Provider [phone] Julita BROOKS, Dr. Rea Santiago Other Provider [phone] Chastity BROOKS, Dr. Glen Driver Other Provider Harvey TILLEY, Dr. Saini Attending Provider Mandy TILLEY, Dr. Vasquez Other Provider Lizzie BROOKS, Dr. Flores Other Provider Rosibel BROOKS, Dr. Hummel Other Provider Chemo BROOKS, Dr. Zamarripa Other Provider Tarik TILLEY, Dr. Croft Other Provider Radha BROOKS, Dr. Gaurang Melgar Other Provider Su BROOKS, Dr. Ferro Other Provider [phone] Valeriy BROOKS, Dr. Brink Other Provider Velia BROOKS, Dr. Johnson Other Provider Iliana BROOKS, Dr. Rodriguez Other Provider [phone] Jose M BROOKS, Dr. Braxton Other Provider [phone] Ascencion BROOKS, Dr. Velasquez Other Provider Ammy BROOKS, Dr. Menjivar Other Provider Sierra BROOKS, Dr. Cortez Other Provider Unavailabl roz Benson MD, Dr. Walker Other Provider [phone] Heath Zendejas MD Other Provider Fernando BROOKS, Dr. Ace Other Provider [phone] Mohit Guevara MD Other Provider Dr. Delon Jarrell DO Other Provider [phone] Amarilis BROOKS, Dr. Donis Other Provider [phone] Dr. Crow Baptiste MD Other Provider [phone] Wilmer Chong DO Other Provider Thien BROOKS, Dr. Alves Other Provider Tad BROOKS, Dr. Szymanski Other Provider Dr. Pedro Galvan DO Attending Provider Abdifatah BROOKS, Dr. Corona Attending Provider Dr. Lang Guzman DO Attending Provider [phone] Matthew BROOKS, Dr. Kahn Attending Provider Chastity BROOKS, Dr. Glen Driver Attending Provider Harvey TILLEY, Dr. Saini Other Provider Roof SENIOR ENVIRONMENTAL ENGINEER-C, Andrzej H Referring Provider Carlos BROOKS, Dr. Vasquez Primary Care Provider Simon BROOKS, Dr. Truong Emergency Provider Unavailab le Gonzalez VSC, Pedro Referring Unavailable Gonzalez VSC, Pedro Primary Care Unavailable Roof SENIOR ENVIRONMENTAL ENGINEER, Andrzej H Attending Unavailable Roof SENIOR ENVIRONMENTAL ENGINEER, Andrzej H Attending Unavailable Gonzalez, Pedro Primary Care Unavailable Gonzalez, Pedro Referring Unavailable Gonzalez, Pedro Primary Care Unavailable Gonzalez, Pedro Attending Unavailable Gaurang Cortes Admitting Unavailable Gaurang Cortes Attending Unavailable Gonzalez, Pedro Primary Care Unavailable Gonzalez, Pedro Primary Care Unavailable Glen Haywood Attending Unavailable White, Rea L Admitting Unavailable White, Rea L Referring Unavailable White, Rea L Consulting Unavailable Abdifatah, [place] Consulting Unavailable Wanek, Glen A Consulting Unavailable Jopperi, Pedro Consulting Unavailable Jopperi, Pedro Attending Unavailable Abdifatah, Cj Attending Unavailable Gonzalez, Pedro Primary Care Unavailable Aden Knutson Attending Unavailable Gonzalez, Pedro Primary Care Unavailable Abdifatah, Cj Attending Unavailable Gonzalez, Pedro Primary Care Unavailable Roof SENIOR ENVIRONMENTAL ENGINEER, Andrzej H Referring Unavailable Gonzalez, Pedro Primary Care Unavailable Yeny Gabriel Attending Unavailable White, Rea L Referring Unavailable White, Rea L Admitting Unavailable White, Rea L Consulting Unavailable Abdifatah, Cj Consulting Unavailable Wanek, Glen A Consulting Unavailable Jopperi, Pedro Consulting Unavailable Gonzalez, Pedro Primary Care Unavailable Gonzalez, Pedro Attending Unavailable Roof SENIOR ENVIRONMENTAL ENGINEER, Andrzej H Referring Unavailable Roof SENIOR ENVIRONMENTAL ENGINEER, Andrzej H Attending Unavailable Gonzalez VSC, Pedro Primary Care Unavailable Gonzalez, Pedro Primary Care Unavailable Roof SENIOR ENVIRONMENTAL ENGINEER, Andrezj H Attending Unavailable Roof SENIOR ENVIRONMENTAL ENGINEER, Andrzej H Referring Unavailable Gonzalez, Pedro Primary Care Unavailable Gonzalez VSC, Pedro Referring Unavailable Roof SENIOR ENVIRONMENTAL ENGINEER, Andrzej H Attending Unavailable Gonzalez, Pedro Primary Care Unavailable Roof SENIOR ENVIRONMENTAL ENGINEER, Andrzej H Attending Unavailable Gonzalez, Pedro Referring Unavailable Gonzalez, Pedro Primary Care Unavailable Roof SENIOR ENVIRONMENTAL ENGINEER, Andrzej H Attending Unavailable Gonzalez, Pedro Referring Unavailable Yeny Gabriel Consulting Unavailable Yeny Gabriel Attending Unavailable Gonzalez, Pedro Attending Unavailable Gonzalez, Pedro Primary Care Unavailable Gonzalez, Pedro Referring Unavailable Melodie SENIOR ENVIRONMENTAL ENGINEER, Karo Referring Unavailable Melodie SENIOR ENVIRONMENTAL ENGINEER, Karo Attending Unavailable Gonzalez, Pedro Primary Care Unavailable Gonzalez, Pedro Primary Care Unavailable Melodie SENIOR ENVIRONMENTAL ENGINEER, Karo Referring Unavailable Melodie SENIOR ENVIRONMENTAL ENGINEER, Karo Attending Unavailable Gonzalez, Pedro Primary Care Unavailable Roof SENIOR ENVIRONMENTAL ENGINEER, Andrzej H Attending Unavailable Gonzalez, Pedro Referring Unavailable Gonzalez, Pedro Primary Care Unavailable Rea Cancino Attending Unavailable Criss Castro Attending Unavailable Mark Samuel Consulting Unavailable Shaheed Gleason Consulting Unavailable Dallin Mclain Consulting Unavailable Lang uGzman Consulting Unavailable Gaurang Garcia Consulting Unavailable P[place] Blue Consulting Unavailable Cuba Crooks Consulting Unavailable Elizabeth Gunn Consulting UnavailMichael Smith Consulting Unavailable Fxo Salguero Consulting Unavailable Ron Vegas Consulting Unavailable Tiara Gimenez Consulting Unavailable Diego Esquivel Consulting Unavailable Denise Benson Consulting Unavailable Mercedes Zendejastam Consulting Unavailable Db King Consulting Unavailable PaolaMohit coe Consulting Unavailable Dhefnay, Delon Consulting Unavailable Gagandeep Olmos Consulting Unavailable Crow Baptiste Consulting Unavailable Wilmer Chong Consulting Unavailable Long Neumann Consulting Unavailable Stephon Mishra Consulting Unavailable Lang Guzman Attending Unavailable Gaurang Cortes Admitting Unavailable Gaurang Cortes Attending Unavailable Gaurang Cortes Consulting Unavailable Gonzalez, Pedro Primary Care Unavailable Gonzalez, Pedro Primary Care Unavailable Dionne Montes Attending Unavailable Roof SENIOR ENVIRONMENTAL ENGINEER-CAndrzej Attending Physician [phone] Carlos BROOKS, Dr. Vasquez Primary Care Physician Dr. Maryanne Emanuel DO Emergency Department Physi azar Julita BROOKS, Dr. Rea Santiago Attending Physician Julita BROOKS, Dr. Rea Santiago Admitting Physician Julita BROOKS, Dr. Rea Santiago Nurse Practitioner Abdifatah BROOKS, Dr. Corona Nurse Practitioner Chastity BROOKS, Dr. Glen Driver Nurse Practitioner Harvey TILLEY, Dr. Saini Attending Physician Mandy TILLEY, Dr. Vasquez Nurse Practitioner Lizzie BROOKS, Dr. Flores Nurse Practitioner [phone] Rosibel BROOKS, Dr. Hummel Nurse Practitioner Chemo BROOKS, Dr. Zamarripa Nurse Practitioner [phone] Tarik TILLEY, Dr. Croft Nurse Practitioner Radha BROOKS, Dr. Gaurang Melgar Nurse Practitioner Su BROOKS, Dr. Ferro Nurse Practitioner Valeriy BROOKS, Dr. Brink Nurse Practitioner [phone] Velia BROOKS, Dr. Johnson Nurse Practitioner Iliana BROOKS, Dr. Rodriguez Nurse Practitioner [phone] Jose M BROOKS, Dr. Braxton Nurse Practitioner [phone] Ascencion BROOKS, Dr. Velasquez Nurse Practitioner [phone] Ammy BROOKS, Dr. Menjivar Nurse Practitioner [phone] Sierra BROOKS, Dr. Cortez Nurse Practitioner Unavail tommy Benson MD, Dr. Walker Nurse Practitioner [phone] Jessica BROOKS, Dr. Joe Nurse Practitioner [phone] Fernando BROOKS, Dr. Ace Nurse Practitioner Paola BROOKS, Dr. Rueda Nurse Practitioner [phone] Wesly TILLEY, Dr. Jernigan Nurse Practitioner Amarilis BROOKS, Dr. Donis Nurse Practitioner [phone] Emile BROOKS, Dr. Maria Nurse Practitioner Castillo TILLEY, Dr. Guillen Nurse Practitioner Thien BROOKS, Dr. Alves Nurse Practitioner Tad BROOKS, Dr. Szymanski Nurse Practitioner Mandy TILLEY, Dr. Vasquez Attending Physician Abdifatah BROOKS, Dr. Corona Attending Physician Dr. Lang Guzman DO Attending Physician Matthew BROOKS, Dr. Kahn Attending Physician Chastity BROOKS, Dr. Glen Driver Attending Physician Harvey TILLEY, Dr. Saini Nurse Practitioner [phone] Carlos BROOKS, Dr. Vasquez Referring Provider Simon BROOKS, Dr. Truong Attending Physician [facility] sheela Montes MD, Dr. Truong Emergency Department Physici an Unavailable Carlos BROOKS, Dr. Vasquez Attending Physician Allergies Allergy Classification Reported Allergen(s) Allergy Type Date of Onset Reaction(s) Facility (1 source) Hmg-Coa Reductase Inhibitors (Statins); Translations: [XDKSONM-EGH-VMG REDUCTASE INHIBITORS] Propensity to adverse reactions to drug (disorder) 8 [facility] (1 source) NO KNOWN ALLERGIES; Translations: [NO KNOWN ALLERGIES] Propensity to adverse reactions to drug (disorder) [facility] Medications Current Medications Medication Drug Class(es) Dates Sig (Normalized) Sig (Original) aspirin 81 mg chewable tablet (20 sources) Platelet Aggregation Inhibitor, Nonsteroidal Anti-inflammatory Drug Start: 01-01-2020 End: 09-10-2021 take 1 tablet by mouth every other day Start: 03-10-2014 End: 01-01-2020 take 1 tablet by mouth once daily Aspirin 81 MG tablet,chewable Discontinued 81 mg PO DAILY March 10, 2014 12:00am January 01, 2020 9:19am furosemide 40 mg oral tablet (20 sources) Loop Diuretic Start: 04-07-2025 End: 04-10-2025 take 2 tablets by mouth once daily Start: 04-07-2025 End: 04-07-2025 take 2 tablets by mouth twice daily Furosemide 40 mg tablet Discontinued 80 mg PO TWICE A DAY April 07, 2025 10:06am April 07, 2025 10:54am Start: 02-26-2025 End: 04-07-2025 take 1 tablet by mouth twice daily Furosemide 40 mg tablet Discontinued 40 mg PO TWICE A DAY February 26, 2025 8:58am April 07, 2025 10:07am Please take an extra dose if your shortness of breath worsens Start: 02-08-2025 End: 02-26-2025 take 1 tablet by mouth once daily Furosemide 40 mg Tablet Discontinued 40 mg PO DAILY 30 February 08, 2025 12:00am February 26, 2025 9:00am Please take an extra dose if your shortness of breath worsens Start: 2025 End: 02-08-2025 take 2 tablets by mouth once daily Furosemide 40 mg tablet Discontinued 80 mg PO daily 2025 12:00am February 08, 2025 2:18pm Start: 02-04-2025 End: 2025 take 1 tablet by mouth once daily Furosemide 40 mg tablet Discontinued 40 mg PO daily 90 February 04, 2025 9:32am 2025 12:31am Start: 12-13-2024 End: 02-04-2025 take 1 tablet by mouth twice daily at mealtime Furosemide 40 mg tablet Discontinued 40 mg PO TWICE DAILY WITH MEALS 120 0 December 13, 2024 12:06pm February 04, 2025 [...] 2023 8:06am August 09, 2024 11:04am Start: 05-06-2022 End: 12-11-2023 take 1 tablet by mouth once daily Furosemide (Lasix) 40 mg tablet Discontinued 40 mg PO DAILY July 14, 2023 11:39am December 11, 2023 8:06am this is a dose increase as of today Start: 02-09-2022 End: 07-14-2023 take 2 tablets by mouth once daily Furosemide (Lasix) 40 mg tablet Discontinued 80 mg PO .COMPLEX 180 February 09, 2022 12:00pm May 06, 2022 10:51am this is a dose increase as of today 80 mg orally per day; Start: 04-18-2018 End: 06-25-2018 Furosemide (Lasix) 40 mg tab let Discontinued 40 mg PO .COMPLEX April 18, 2018 9:11am June 25, 2018 10:32am one tablet in the morning and 1/2 tablet at noon Start: 03-29-2018 End: 02-09-2022 take 1 tablet by mouth once daily Furosemide (Lasix) 40 mg tablet Discontinued 40 mg PO DAILY 90 April 22, 2021 1:37pm February 09, 2022 11:33am 24 hr metoprolol succinate 25 mg extended release oral tablet (20 sources) beta-Adrenergic Mohit Start: 04-07-2025 take 2 tablets b y mouth once daily Start: 02-08-2025 End: 04-07-2025 Metoprolol Tartrate 25 mg ta blet Discontinued 12.5 mg PO DAILY 60 0 February 08, 2025 12:00am April 07, 2025 10:55am Start: 12-25-2020 End: 05-06-2022 take 1 tablet by mouth once daily Metoprolol Succinate 25 mg tablet extended release 24 hr Discontinued 0 .ROUTE .COMPLEX 90 3 February 15, 2022 10:45am May 06, 2022 10:51am TAKE ONE TABLET BY MOUTH EVERY DAY Start: 03-29-2018 End: 07-14-2023 take 1 tablet by mouth once daily Metoprolol Succinate 25 mg tablet extended release 24 hr Discontinued 25 mg PO daily 90 3 December 12, 2019 10:29am December 25, 2020 12:34pm Start: 09-07-2017 End: 02-09-2018 take 1 tablet by mouth once daily Metoprolol Tartrate 50 mg tablet Discontinued 25 mg PO TWICE A DAY 90 December 05, 2017 7:34am February 09, 2018 2:06pm 50mg, 1/2 Tab PO QDAY Start: 09-07-2017 End: 02-09-2018 take 2 tablets by mouth once daily Metoprolol Tartrate Discontinued 25 MG PO TWICE A DAY 90 December 05, 2017 7:34am February 09, 2018 2:06pm 50mg, 1/2 Tab PO QDAY Start: 03-10-2014 End: 09-07-2017 take 1 tablet by mouth twice daily Metoprolol Tartrate 25 MG tablet Discontinued 25 mg PO TWICE A DAY March 10, 2014 12:00am September 07, 2017 8:51am tamsulosin hydrochloride 0.4 mg oral capsule (16 sources) alpha-Adrenergic Mohit Start: 01-27-2022 take 1 capsule by mouth at bedtime vitamin e 90 mg oral capsule (20 sources) Start: 09-14-2020 take 1 capsule by mouth once daily Start: 02-09-2018 End: 01-01-2020 take 1 capsule by mouth once daily Vitamin E 200 unit capsule Discontinued 200 U PO daily February 09, 2018 12:00am January 01, 2020 9:19am Completed/Discontinued Medications Medication Drug Class(es) Dates Sig (Normalized) Sig (Original) acetaminophen 325 mg / oxyCODONE hydrochloride 5 mg oral tablet (17 sources) Opioid Agonist Start: 03-18-2014 End: 08-03-2017 [...] 2017 5:48pm amoxicillin 250 mg oral capsule (17 sources) Penicillin-class Antibacterial Start: 06-19-2019 End: 06-26-2019 take 1 capsule by mouth every eight hours Amoxicillin 250 MG capsule Discontinued 250 mg PO EVERY 8 HOURS 9 0 June 19, 2019 1:00am June 26, 2019 11:19am amoxicillin 875 mg / clavulanate 125 mg oral tablet (7 sources) Penicillin-class Antibacterial Start: 02-08-2025 End: 02-26-2025 Amoxicillin-Pot Clavulanate 875-125 mg tablet Discontinued 1 {tbl} PO TWICE A DAY 22 0 February 08, 2025 12:00am February 26, 2025 9:45am cephalexin 500 mg oral capsule (17 sources) Cephalosporin Antibacterial Start: 06-20-2019 End: 06-26-2019 take 1 capsule by mouth every eight hours Cephalexin 500 MG capsule Discontinued 500 mg PO EVERY 8 HOURS 15 0 June 20, 2019 1:00am June 26, 2019 11:19am clopidogrel 75 mg oral tablet (20 sources) [id number] Platelet Inhibitor Start: 01-01-2020 End: 11-12-2024 take 1 tablet by mouth every other day Clopidogrel 75 mg tablet Discontinued 75 mg PO every other day 45 3 August 01, 2023 3:50pm November 12, 2024 4:10pm Start: 08-03-2017 End: 01-01-2020 take 1 tablet by mouth once daily Clopidogrel 75 mg tablet Discontinued 75 mg PO daily 30 November 27, 2017 4:46pm June 25, 2018 10:33am dapagliflozin 10 mg oral tablet (20 sources) Sodium-Glucose Cotransporter 2 Inhibitor Start: 12-25-2024 End: 02-26-2025 take 1 tablet by mouth once daily in the morning Dapagliflozin Propanediol (Farxiga) 10 mg tablet Discontinued 10 mg PO .COMPLEX 30 December 26, 2024 12:00am February 04, 2025 [...] mg tablet Discontinued 10 mg PO daily 90 3 April 18, 2018 9:47am June 25, 2018 10:32am Garlic (17 sources) Non-Standardized Food Allergenic Extract Start: 08-03-2017 [...] mononitrate 60 mg extended release oral tablet (20 sources) Nitrate Vasodilator Start: 08-03-2017 End: 02-09-2018 [...] 10, 2014 12:00am August 03, 2017 5:49pm lisinopril 5 mg oral tablet (20 sources) Angiotensin Converting Enzyme Inhibitor Start: 07-14-2023 End: 02-11-2025 take 2.5 mg by mouth once daily Lisinopril 5 mg tablet Discontinued 2.5 mg PO DAILY July 14, 2023 11:39am February 11, 2025 10:17am On Hold: Until instructed to restart by cardiology Start: 05-06-2022 End: 07-14-2023 take 1 tablet by mouth once daily Lisinopril 5 mg tablet Discontinued 5 mg PO DAILY 30 May 01, 2023 1:59pm July 14, 2023 11:39am nitroglycerin 0.3 mg sublingual tablet (17 sources) Nitrate Vasodilator Start: 03-10-2014 End: 02-09-2018 Nitroglycerin 0.3 MG tablet, sublingual Discontinued 0.4 mg SL NEEDED as needed for Chest Pain March 10, 2014 12:00am February 09, 2018 2:06pm Start: 03-10-2014 End: 02-09-2018 Nitroglycerin Discontinued 0 .4 MG SL NEEDED March 10, 2014 12:00am February 09, 2018 2:06pm omega-3 fatty acids 1,250 mg capsule (17 sources) Start: 08-03-2017 End: 02-09-2018 take 1 capsule by mouth twice daily omega-3 fatty acids 1,250 mg capsule Discontinued 1250 MG PO TWICE A DAY August 03, 2017 5:48pm February 09, 2018 2:06pm Start: 08-03-2017 End: 02-09-2018 take 1 capsule by mouth twice daily [place]-3 Fatty Acids 1,250 mg capsule Discontinued 1250 mg PO TWICE A DAY August 03, 2017 1:00am February 09, 2018 2:06pm Start: 08-03-2017 End: 02-09-2018 take 1 capsule by mouth twice daily omega-3 fatty acids 1,250 mg capsule Discontinued 1250 MG PO TWICE A DAY August 03, 2017 1:00am February 09, 2018 2:06pm predniSONE 10 mg oral tablet (17 sources) Start: 03-18-2014 End: 08-03-2017 take 6 tablets by mouth once daily, then take 4 tablets by mouth once daily, then take 2 tablets by mouth once daily, then take 1 tablet by mouth once daily Prednisone 10 MG tablet Discontinued 10 mg PO DAILY 48 0 March 18, 2014 12:00am August 03, 2017 5:49pm 6 po qd x 3 days, 4 po qd x 3 days, 2 po qd x 3 days, 1 po qd x 3 days sildenafil 25 mg oral tablet (10 sources) Phosphodiesterase 5 Inhibitor Start: 12-12-2024 End: 12-25-2024 take 1 tablet by mouth three times daily Sildenafil 25 mg tablet Discontinued 25 mg PO THREE TIMES A DAY December 12, 2024 12:00am December 25, 2024 10:28am Problems Active Problems Problem Classification Problem Date Documented Da te Episodic/Chronic Acute and unspecified renal failure (8 sources) Lddtq-er-rmyrdwe renal failure; Translations: [Acute kidney failure, unspecified] 02-04-2025 Episodic Aortic; peripheral; and visceral artery aneurysms (14 sources) Abdominal aortic aneurysm; Translations: [Abdominal aortic aneurysm (AAA)] 02-06-2025 Chronic Cardiac dysrhythmias (20 sources) Irregular heart beat; Translations: [Cardiac arrhythmia, unspecified] Onset: 5 02-04-2025 Chronic Coagulation and hemorrhagic disorders (15 sources) Thrombocytopenic disorder; Translations: [Thrombocytopenia, unspecified] Onset: 5 2025 Chronic Complication of device; implant or graft (20 sources) Arteriosclerosis of coronary artery bypass graft; [...] disease (20 sources) Atherosclerotic heart disease of [place] coronary artery without angina pectoris; Translations: [Coronary atherosclerosis] Onset: 8 Chronic Comment on above: PTCA of anastomosis of GRAJEDA to LAD January 2002; PTCA of the RCA 04/14; 11/2012 @ [facility] - patent grafts;PCI/ENE to the ostial, proximal, [...] PCI/ENE -SVG to OM 1 on 03/29/2022 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; 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] Onset: 5 2025 Chronic Disorders of lipid metabolism (20 sources) Other hyperlipidemia; Translations: [Hyperlipidemia, unspecified] Onset: 8 Chronic Essential hypertension (1 source) Essential (primary) hypertension; Translations: [Essential (primary) hypertension] Onset: 8 Chronic Fever of unknown origin (8 sources) Pyrexia of unknown origin; Translations: [Fever, unspecified] 02-04-2025 Episodic Fluid and electrolyte disorders (8 sources) Acute hyponatremia; Translations: [Hypo-osmolality and hyponatremia] 02-04-2025 Episodic Gastrointestinal hemorrhage (1 source) Melena; Translations: [Melena] Onset: 8 Episodic Heart valve disorders (20 sources) Nonrheumatic aortic (valve) stenosis; Translations: [Presence of xenogenic heart valve] Onset: 8 Chronic Comment on above: TAVR 26mm Buckley Sa pien S3 valve 12/27/17 Hyperplasia of prostate (16 sources) Benign prostatic hyperplasia; Translations: [Benign prostatic hyperplasia without lower urinary tract symptoms] 02-04-2022 Chronic Nonspecific chest pain (17 sources) Chest pain; Translations: [Chest pain, unspecified] 04-18-2018 Episodic Osteoarthritis (3 sources) Unilateral primary osteoarthritis, left knee; Translations: [Unilateral primary osteoarthritis, left knee] Onset: 9 Chronic Other aftercare (1 source) Encounter for other specified aftercare; Translations: [Encounter for other specified aftercare] Onset: 5 Episodic Other connective tissue disease (3 sources) Presence of left artificial knee joint; Translations: [Presence of left artificial knee joint] Onset: 9 Chronic Other liver diseases (14 sources) Enzyme level - finding; Translations: [Elevated transaminase measurement] 2025 Episodic Other lower respiratory disease (1 source) Acute pulmonary edema; Translations: [Acute pulmonary edema] Onset: 8 Episodic Other lower respiratory disease (20 sources) Dyspnea on exertion; Translations: [Dyspnea, unspecified] 08-09-2024 Episodic Other lower respiratory disease (19 sources) Dyspnea; Translations: [Shortness of breath] 12-12-2024 Episodic Other lower respiratory disease (19 sources) Hypoxia; Translations: [Hypoxemia] 12-12-2024 Episodic Other lower respiratory disease (1 source) Shortness of breath; Translations: [Shortness of breath] Onset: 5 Episodic Other screening for suspected conditions (not mental disorders or infectious disease) (20 sources) Cardiovascular stress test abnormal; Translations: [Abnormal result of other cardiovascular function study] Onset: 5 08-09-2024 Episodic Other upper respiratory disease (17 sources) Bleeding from nose; Translations: [Epistaxis] 04-07-2022 Episodic Pulmonary heart disease (1 source) Pulmonary hypertension, unspecified; Translations: [Pulmonary hypertension, unspecified] Onset: 5 Chronic Residual codes; unclassified (17 sources) Daytime somnolence; Translations: [Other hypersomnia] 04-07-2022 Chronic Residual codes; unclassified (5 sources) Other hypersomnia; Translations: [Hypersomnia, unspecified] Chronic Residual codes; unclassified (16 sources) Obstructive sleep apnea syndrome; Translations: [Obstructive sleep apnea (adult) (pediatric)] 08-09-2024 Chronic Comment on above: Cpap Residual codes; unclassified (4 sources) Obstructive sleep apnea (adult) (pediatric); Translations: [Obstructive sleep apnea (adult)(pediatric)] Chronic Residual codes; unclassified (12 sources) Central sleep apnea syndrome; Translations: [Primary central sleep apnea] 08-09-2024 Chronic Respiratory failure; insufficiency; arrest (adult) (15 sources) Acute respiratory failure; Translations: [Acute respiratory failure with hypoxia] Onset: 5 2025 Episodic Shock (15 sources) Shock; Translations: [Shock, unspecified] Onset: 5 2025 Episodic Unclassified (1 source) Unknown / UNK(Unknown) Onset: 8 Unclassified (14 sources) Call on Monday for an appointment Unclassified (1 source) Elevation of levels of liver transaminase levels; Translations: [Elevation of levels of liver transaminase levels] Onset: 5 Unclassified (1 source) Abdominal aortic aneurysm, without rupture, unspecified; Translations: [Abdominal aortic aneurysm, without rupture, unspecified] Onset: 5 Past or Other Problems Problem Classification Problem [...] Test Name Value Interpretation Reference Range Facility Absolute lymphocyte countOrd ered By: Pedro Gonzalez on 04-16-2025 Lymphocytes Auto (Unsp spec) [#/Vol] 1.88 10*3/uL 0.83-4.[address] [facility] Absolute neutrophil countOrd ered By: Pedro Gonzalez on 04-16-2025 Neutrophils (Bld) [#/Vol] 3.4 10*3/uL 2.0-7.[address] [facility] Anion gap in Serum or Plasma Ordered By: Pedro Gonzalez on 04-16-2025 Anion gap [Moles/Vol] 14 mmol/L 5- [facility] Automated lymphocyte count a s percentage of total leukocytesOrdered By: Pedro Gonzalez on 04-16-2025 Lymphocytes/100 WBC Auto (Unsp spec) 30.7 % -[address] [facility] BUN/creatinine ratioOrdered By: Pedro Gonzalez on 04-16-2025 Urea nitrogen/Creatinine [Mass ratio] 20.7 mg/mg High 10-[address] [facility] Basic Metabolic Profile (BMP )on 04-16-2025 BUN Normal 4-[address] [facility] Comment on above: Result Comment: CMP ORDERED Performed By: #### L 500.2500 ####[facility] [address] [place], [address] BUN/CRE Normal 10-[address] [facility] Comment on above: Result Comment: CMP ORDERED Performed By: #### L 500.2500 ####[facility] [address] [place], [address] Calcium Normal 7.6-11.[address] [facility] Comment on above: Result Comment: CMP ORDERED Performed By: #### L 500.2500 ####[facility] [address] [place], [address] CL Normal 98-[address] [facility] Comment on above: Result Comment: CMP ORDERED Performed By: #### L 500.2500 ####[facility] [address] [place], [address] CO2 Normal 21.0-32.[address] [facility] Comment on above: Result Comment: CMP ORDERED Performed By: #### L 500.2500 ####[facility] [address] [place], [address] CREAT,SERUM Normal 0.70-1.[address] [facility] Comment on above: Result Comment: CMP ORDERED Performed By: #### L 500.2500 ####[facility] [address] [place], [address] eGFR Normal >[address] [facility] Comment on above: Result Comment: CMP ORDERED Performed By: #### L 500.2500 ####[facility] [address] [place], [address] GAP Normal 5-[address] [facility] Comment on above: Result Comment: CMP ORDERED Performed By: #### L 500.2500 ####[facility] [address] [place], [address] GLU Normal 70-[address] [facility] Comment on above: Result Comment: CMP ORDERED Performed By: #### L 500.2500 ####[facility] [address] [place], [address] Potassium Normal 3.3-5.[address] [facility] Comment on above: Result Comment: CMP ORDERED Performed By: #### L 500.2500 ####[facility] [address] [place], [address] Basic Metabolic Profile (BMP) Normal 133-[address] [facility] Comment on above: Result Comment: CMP ORDERED Performed By: #### L 500.2500 ####[facility] [address] [place], [address] Basophil percentageOrdered B y: Pedro Gonzalez on 04-16-2025 Basophils/100 WBC (Bld) 0.8 % 0-[address] [facility] Bilirubin, totalOrdered By: Pedro Gonzalez on 04-16-2025 Bilirubin [Mass/Vol] 1.25 mg/dL 0.00-1.30 [facility] CBC W/Diff, Automatedon Absolute Lymph 1.88 X10 3/uL Normal 0.83-4.[address] [facility] Comment on above: Order Comment: Order Date: 12/03/24Order Info: 0184-1 - CBCD Performed By: #### L 100.0100, L500.4050 ####[facility] [address] [place], [address] Absolute Neut 3.4 X10 3/uL Normal 2.0-7.[address] [facility] Comment on above: Order Comment: Order Date: 12/03/24Order Info: 0184-1 - CBCD Performed By: #### L 100.0100, L500.4050 ####[facility] [address] [place], [address] Basophils/100 WBC (Bld) 0.8 % Normal 0-[address] [facility] Comment on above: Order Comment: Order Date: 12/03/24Order Info: 0184-1 - CBCD Performed By: #### L 100.0100, L500.4050 ####[facility] [address] [place], [address] Eosinophils/100 WBC (Bld) 2.1 % Normal 0-[address] [facility] Comment on above: Order Comment: Order Date: 12/03/24Order Info: 0184-1 - CBCD Performed By: #### L 100.0100, L500.4050 ####[facility] [address] [place], [address] Erythrocyte distribution width (RBC) [Ratio] 17.0 % High 11.6-14.[address] [facility] Comment on above: Order Comment: Order Date: 12/03/24Order Info: 0184-1 - CBCD Performed By: #### L 100.0100, L500.4050 ####[facility] [address] [place], [address] Hematocrit (Bld) [Volume fraction] 37.1 % Low 40-[address] [facility] Comment on above: Order Comment: Order Date: 12/03/24Order Info: 0184-1 - CBCD Performed By: #### L 100.0100, L500.4050 ####[facility] [address] [place], [address] Hemoglobin (Bld) [Mass/Vol] 11.8 g/dL Low 13.0-16.[address] [facility] Comment on above: Order Comment: Order Date: 12/03/24Order Info: 0184-1 - CBCD Performed By: #### L 100.0100, L500.4050 ####[facility] [address] [place], [address] IG% 0.200 Normal 0.0-0.[address] [facility] Comment on above: Order Comment: Order Date: 12/03/24Order Info: 0184-1 - CBCD Result Comment: IG% - Immature Granulocytes (promyelocytes, myelocytes andmetamyelocytes) > 1% indicates that a LEFT SHIFT is Present. Performed By: #### L 100.0100, L500.4050 ####[facility] [address] [place], [address] Lymphocytes/100 WBC (Bld) 30.7 % Normal 19-[address] [facility] Comment on above: Order Comment: Order Date: 12/03/24Order Info: 0184-1 - CBCD Performed By: #### L 100.0100, L500.4050 ####[facility] [address] [place], [address] MCH (RBC) [Entitic mass] 29.3 pg Normal 27.0-32.[address] [facility] Comment on above: Order Comment: Order Date: 12/03/24Order Info: 0184-1 - CBCD Performed By: #### L 100.0100, L500.4050 ####[facility] [address] [place], [address] MCHC (RBC) [Mass/Vol] 31.8 g/dL Low 32-36 [facility] Comment on above: Order Comment: Order Date: 12/03/24Order Info: 0184-1 - CBCD Performed By: #### L 100.0100, L500.4050 ####[facility] [address] [place], [address] MCV (RBC) [Entitic vol] 92.1 fL Normal 80-[address] [facility] Comment on above: Order Comment: Order Date: 12/03/24Order Info: 0184-1 - CBCD Performed By: #### L 100.0100, L500.4050 ####[facility] [address] [place], [address] Monocytes/100 WBC (Bld) 10.1 % High 0-[address] [facility] Comment on above: Order Comment: Order Date: 12/03/24Order Info: 0184-1 - CBCD Performed By: #### L 100.0100, L500.4050 ####[facility] [address] [place], [address] Neutrophils/100 WBC (Bld) 56.1 % Normal 47-[address] [facility] Comment on above: Order Comment: Order Date: 12/03/24Order Info: 0184-1 - CBCD Performed By: #### L 100.0100, L500.4050 ####[facility] [address] [place], [address] Nucleated RBC (Bld) [#/Vol] 0 10*3/uL Normal 0-[address] [facility] Comment on above: Order Comment: Order Date: 12/03/24Order Info: 0184-1 - CBCD Performed By: #### L 100.0100, L500.4050 ####[facility] [address] [place], [address] Platelet mean volume (Bld) [Entitic vol] 10.9 fL Normal 6.2-12.[address] [facility] Comment on above: Order Comment: Order Date: 12/03/24Order Info: 0184-1 - CBCD Performed By: #### L 100.0100, L500.4050 ####[facility] [address] [place], [address] Platelets (Bld) [#/Vol] 144 10*3/uL Low 150-[address] [facility] Comment on above: Order Comment: Order Date: 12/03/24Order Info: 0184-1 - CBCD Performed By: #### L 100.0100, L500.4050 ####[facility] [address] [place], [address] RBC (Bld) [#/Vol] 4.03 10*6/uL Low 4.6-6.2 [facility] Comment on above: Order Comment: Order Date: 12/03/24Order Info: 0184-1 - CBCD Performed By: #### L 100.0100, L500.4050 ####[facility] [address] [place], [address] RDW SD 57.1 fl High 35.1-43.[address] [facility] Comment on above: Order Comment: Order Date: 12/03/24Order Info: 0184-1 - CBCD Performed By: #### L 100.0100, L500.4050 ####[facility] [address] [place], [address] WBC (Bld) [#/Vol] 6.1 10*3/uL Normal 4.4-11.0 [facility] Comment on above: Order Comment: Order Date: 12/03/24Order Info: 0184-1 - CBCD Performed By: #### L 100.0100, L500.4050 ####[facility] [address] [place], [address] Carbon dioxide, total [Moles /volume] in Central venous bloodOrdered By: Pedro Gonzalez on 04-16-2025 CO2 [Moles/Vol] 24.6 mmol/L 21.0-32.[address] [facility] Chloride assayOrdered By: Wesley Gonzalez on 04-16-2025 Chloride [Moles/Vol] 102 mmol/L 98-108 [facility] Comprehensive Metabolic Prof ilon 04-16-2025 Albumin [Mass/Vol] 4.0 g/dL Normal 3.4-4.8 [facility] Comment on above: Order Comment: Order Date: 12/03/24Order Info: 0786-1 - CMP Performed By: #### L 100.0100, L500.4050 ####[facility] [address] [place], [address] Albumin/Globulin [Mass ratio] 1.3 {ratio} Normal 0.9-2.[address] [facility] Comment on above: Order Comment: Order Date: 12/03/24Order Info: 0786-1 - CMP Performed By: #### L 100.0100, L500.4050 ####[facility] [address] [place], [address] ALK PHOS 111 U/L Normal 40-[address] [facility] Comment on above: Order Comment: Order Date: 12/03/24Order Info: 0786-1 - CMP Performed By: #### L 100.0100, L500.4050 ####[facility] [address] [place], [address] ALT [Catalytic activity/Vol] 23 U/L Normal <=[address] [facility] Comment on above: Order Comment: Order Date: 12/03/24Order Info: 0786-1 - CMP Performed By: #### L 100.0100, L500.4050 ####[facility] [address] [place], [address] AST [Catalytic activity/Vol] 27 U/L Normal <=[address] [facility] Comment on above: Order Comment: Order Date: 12/03/24Order Info: 0786-1 - CMP Performed By: #### L 100.0100, L500.4050 ####[facility] [address] [place], [address] Bilirubin [Mass/Vol] 1.25 mg/dL Normal 0.00-1.30 [facility] Comment on above: Order Comment: Order Date: 12/03/24Order Info: 0786-1 - CMP Performed By: #### L 100.0100, L500.4050 ####[facility] [address] [place], [address] BUN/CRE 20.7 RATIO High 10-[address] [facility] Comment on above: Order Comment: Order Date: 12/03/24Order Info: 0786-1 - CMP Performed By: #### L 100.0100, L500.4050 ####[facility] [address] [place], [address] Calcium [Mass/Vol] 9.4 mg/dL Normal 7.6-11.0 [facility] Comment on above: Order Comment: Order Date: 12/03/24Order Info: 0786-1 - CMP Performed By: #### L 100.0100, L500.4050 ####[facility] [address] [place], [address] Chloride [Moles/Vol] 102 mmol/L Normal 98-108 [facility] Comment on above: Order Comment: Order Date: 12/03/24Order Info: 0786-1 - CMP Performed By: #### L 100.0100, L500.4050 ####[facility] [address] [place], [address] CO2 [Moles/Vol] 24.6 mmol/L Normal 21.0-32.[address] [facility] Comment on above: Order Comment: Order Date: 12/03/24Order Info: 0786-1 - CMP Performed By: #### L 100.0100, L500.4050 ####[facility] [address] [place], [address] Creatinine [Mass/Vol] 1.54 mg/dL High 0.70-1.20 [facility] Comment on above: Order Comment: Order Date: 12/03/24Order Info: 0786-1 - CMP Performed By: #### L 100.0100, L500.4050 ####[facility] [address] [place], [address] GAP 14 Normal 5-[address] [facility] Comment on above: Order Comment: Order Date: 12/03/24Order Info: 0786-1 - CMP Performed By: #### L 100.0100, L500.4050 ####[facility] [address] [place], [address] GFR/1.73 sq M.predicted among non-blacks MDRD (S/P/Bld) [Vol rate/Area] 44 mL/min/{1.73_m2} Low >[address] [facility] Comment on above: Order Comment: Order Date: 12/03/24Order Info: 0786-1 - CMP Result Comment: mL/m in/1.73m2 CKD-EPI Creatinine Equation (2020) Performed By: #### L 100.0100, L500.4050 ####[facility] [address] [place], [address] Globulin (S) [Mass/Vol] 3.0 g/dL Normal 2.2-4.[address] [facility] Comment on above: Order Comment: Order Date: 12/03/24Order Info: 0786-1 - CMP Performed By: #### L 100.0100, L500.4050 ####[facility] [address] [place], [address] Glucose [Mass/Vol] 100 mg/dL High 70-99 [facility] Comment on above: Order Comment: Order Date: 12/03/24Order Info: 0786-1 - CMP Performed By: #### L 100.0100, L500.4050 ####[facility] [address] [place], [address] Potassium [Moles/Vol] 4.2 mmol/L Normal 3.3-5.1 [facility] Comment on above: Order Comment: Order Date: 12/03/24Order Info: 0786-1 - CMP Performed By: #### L 100.0100, L500.4050 ####[facility] [address] [place], [address] Sodium [Moles/Vol] 140 mmol/L Normal 133-145 [facility] Comment on above: Order Comment: Order Date: 12/03/24Order Info: 0786-1 - CMP Performed By: #### L 100.0100, L500.4050 ####[facility] [address] [place], [address] T PROT 7.0 g/dL Normal 5.9-8.[address] [facility] Comment on above: Order Comment: Order Date: 12/03/24Order Info: 0786-1 - CMP Performed By: #### L 100.0100, L500.4050 ####[facility] [address] [place], [address] Urea nitrogen [Mass/Vol] 32 mg/dL High 4-[address] [facility] Comment on above: Order Comment: Order Date: 12/03/24Order Info: 0786-1 - CMP Performed By: #### L 100.0100, L500.4050 ####[facility] [address] [place], [address] Eosinophil percentageOrdered By: Pedro Gonzalez on 04-16-2025 Eosinophils/100 WBC (Bld) 2.1 % 0-[address] [facility] Erythrocyte distribution wid th ratioOrdered By: Pedro Gonzalez on 04-16-2025 Erythrocyte distribution width (RBC) [Ratio] 17.0 % High 11.6-14.[address] [facility] Erythrocyte distribution wid th standard deviationOrdered By: Pedro Gonzalez on 04-16-2025 Erythrocyte distribution width (RBC) [Ratio] 57.1 fl High 35.1-43.[address] [facility] Glomerular filtration rate ( GFR) estimation/1.73 sq m using serum, plasma, or whole bOrdered By: Pedro Gonzalez on 04-16-2025 GFR/1.73 sq M.predicted among non-blacks MDRD (S/P/Bld) [Vol rate/Area] 44 mL/min/{1.73_m2} Low >[address] [facility] Comment on above: mL/min/1.73m2 CKD-EP I Creatinine Equation (2020) Hematocrit Auto (Bld) [Volum e fraction]Ordered By: Pedro Gonzalez on 04-16-2025 Hematocrit (Bld) [Volume fraction] 37.1 % Low 40-[address] [facility] Hemoglobin measurementOrdere d By: Pedro Gonzalez on 04-16-2025 Hemoglobin (Bld) [Mass/Vol] 11.8 g/dL Low 13.0-16.[address] [facility] Immature granulocytes/100 WB C Auto (Bld)Ordered By: Pedro Gonzalez on 04-16-2025 Immature granulocytes/100 WBC (Bld) 0.200 % 0.0-0.[address] [facility] Comment on above: IG% - Immature Granu locytes (promyelocytes, myelocytes and metamyelocytes) > 1% indicates that a LEFT SHIFT is Present. Laboratory - Chemistry and C hemistry - challengeOrdered By: Pedro Gonzalez on 04-16-2025 AST [Catalytic activity/Vol] 27 U/L <[address] [facility] MCV (mean corpuscular volume ) determinationOrdered By: Pedro Gonzalez on 04-16-2025 MCV (RBC) [Entitic vol] 92.1 fL 80-[address] [facility] Mean corpuscular hemoglobin (MCH) determinationOrdered By: Pedro Gonzalez on 04-16-2025 MCH (RBC) [Entitic mass] 29.3 pg 27.0-32.[address] [facility] Mean corpuscular hemoglobin concentration (MCHC) determinationOrdered By: Pedro Gonzalez on 04-16-2025 MCHC (RBC) [Mass/Vol] 31.8 g/dL Low 32-36 [facility] Mean platelet volume determi nationOrdered By: Pedro Gonzalez on 04-16-2025 Platelet mean volume (Bld) [Entitic vol] 10.9 fL 6.2-12.[address] [facility] Monocyte percentageOrdered B y: Pedro Gonzalez on 04-16-2025 Monocytes/100 WBC (Bld) 10.1 % High 0-[address] [facility] Natriuretic peptide.B prohor alirio N-Terminal [Mass/volume] in Serum or PlasmaOrdered By: Pedro Gonzalez on 04-16-2025 Natriuretic peptide.B prohormone N-Terminal [Mass/Vol] 8529 pg/mL High <[address] [facility] Comment on above: Heart Failure Unlike ly: < 300 pg/mLHeart Failure Likely< 50 Years: > 450 pg/mL50-75 Years: > 900 pg/mL>75 Years: > 1800 pg/mL Neutrophil percentageOrdered By: Pedro Gonzalez on 04-16-2025 Neutrophils/100 WBC (Bld) 56.1 % 47-[address] [facility] Nucleated red blood cell per centageOrdered By: Pedro Gonzalez on 04-16-2025 Nucleated RBC/100 WBC (Bld) [Ratio] 0 % 0-[address] [facility] Platelet countOrdered By: Wesley Gonzalez on 04-16-2025 Platelets (Bld) [#/Vol] 144 10*3/uL Low 150-[address] [facility] Potassium measurement (mass/ volume)Ordered By: Pedro Gonzalez on 04-16-2025 Potassium (Unsp spec) [Mass/Vol] 4.2 mmol/L 3.3-5.[address] [facility] Pro- Brain NATRIURETIC PEPTI [place] 04-16-2025 Natriuretic peptide B (Bld) [Mass/Vol] 8529 pg/mL High <=[address] [facility] Comment on above: Order Comment: Order Date: 12/03/24Order Info: 0786-1 - [facility] Result Comment: Hear t Failure Unlikely: < 300 pg/mLHeart Failure Likely< 50 Years: > 450 pg/mL50-75 Years: > 900 pg/mL>75 Years: > 1800 pg/mL Performed By: #### L 503.7505 ####[facility] [address] [place], [address] RBC Auto (Bld) [#/Vol]Ordere d By: Pedro Gonzalez on 04-16-2025 RBC (Bld) [#/Vol] 4.03 10*6/uL Low 4.6-6.2 [facility] [facility] [place] Serum creatinine measurement (mass/volume)Ordered By: Pedro Gonzalez on 04-16-2025 Creatinine [Mass/Vol] 1.54 mg/dL High 0.70-1.20 [facility] Serum globulin measurementOr dered By: Pedro Gonzalez on 04-16-2025 Globulin (S) [Mass/Vol] 3.0 g/dL 2.2-4.[address] [facility] Serum glucose measurement (m ass/volume)Ordered By: Pedro Gonzalez on 04-16-2025 Glucose [Mass/Vol] 100 mg/dL High 70-99 [facility] Serum or plasma alanine holm otransferase (ALT) measurementOrdered By: Pedro Gonzalez on 04-16-2025 ALT [Catalytic activity/Vol] 23 U/L <[address] [facility] Serum or plasma albumin kelli urement (mass/volume)Ordered By: Pedro Gonzalez on 04-16-2025 Albumin [Mass/Vol] 4.0 g/dL 3.4-4.8 [facility] Serum or plasma albumin/glob ulin mass ratioOrdered By: Pedro Gonzalez on 04-16-2025 Albumin/Globulin [Mass ratio] 1.3 {ratio} 0.9-2.[address] [facility] Serum or plasma alkaline karen sphatase measurementOrdered By: Pedro Gonzalez on 04-16-2025 ALP [Catalytic activity/Vol] 111 U/L 40-[address] [facility] Serum or plasma calcium kelli urement (mass/volume)Ordered By: Pedro Gonzalez on 04-16-2025 Calcium [Mass/Vol] 9.4 mg/dL 7.6-11.0 [facility] Serum or plasma urea nitroge n measurement (mass/volume)Ordered By: Pedro Gonzalez on 04-16-2025 Urea nitrogen [Mass/Vol] 32 mg/dL High 4-[address] [facility] Sodium levelOrdered By: Pedro Gonzalez on 04-16-2025 Sodium [Moles/Vol] 140 mmol/L 133-145 [facility] Total proteinOrdered By: Sophia Gonzalez on 04-16-2025 Protein [Mass/Vol] 7.0 g/dL 5.9-8.4 [facility] White blood cell (WBC) count Ordered By: Pedro Gonzalez on 04-16-2025 WBC (Bld) [#/Vol] 6.1 10*3/uL 4.4-11.0 [facility] Cardiology Visit Reporton Cardiology Visit Report Normal [facility] 12 Lead EKGon 04-02-2025 12 Lead EKG Normal [facility] Absolute lymphocyte countOrd ered By: Dionne Montes on 04-02-2025 Lymphocytes Auto (Unsp spec) [#/Vol] 1.68 10*3/uL 0.83-4.[address] [facility] Absolute neutrophil countOrd ered By: Dionne Montes on 04-02-2025 Neutrophils (Bld) [#/Vol] 4.3 10*3/uL 2.0-7.[address] [facility] Anion gap in Serum or Plasma Ordered By: Dionne Montes on 04-02-2025 Anion gap [Moles/Vol] 12 mmol/L 5-15 [facility] Automated blood erythrocyte countOrdered By: Dionne Montes on 04-02-2025 RBC (Bld) [#/Vol] 3.99 10*6/uL Low 4.6-6.2 [facility] [place] Comment on above: Performed By: #### L 503.7505, L500.2500, L100.0100 ####[facility] [address] [place], [place], [id number] Automated blood hematocrit ( percentage)Ordered By: Dionne Montes on 04-02-2025 Hematocrit (Bld) [Volume fraction] 36.8 % Low 40-[address] [facility] Comment on above: Performed By: #### L 503.7505, L500.2500, L100.0100 ####[facility] [address] [place], [address] Automated lymphocyte count a s percentage of total leukocytesOrdered By: Dionne Montes on 04-02-2025 Lymphocytes/100 WBC Auto (Unsp spec) 24.8 % - [facility] BUN/creatinine ratioOrdered By: Dionne Simon on 04-02-2025 Urea nitrogen/Creatinine [Mass ratio] 19.2 mg/mg 06-[address] [facility] Basic Metabolic Profile (BMP )on 04-02-2025 BUN/CRE 19.2 RATIO Normal - [facility] Comment on above: Performed By: #### L 503.7505, L500.2500, L100.0100 ####[facility] [address] [place], [address] ECRCL 38.10 ml/min Low 50-[address] [facility] Comment on above: Performed By: #### L 503.7505, L500.2500, L100.0100 ####[facility] [address] [place], [address] GAP 12 Normal 5-[address] [facility] Comment on above: Performed By: #### L 503.7505, L500.2500, L100.0100 ####[facility] [address] [place], [address] Potassium [Moles/Vol] 4.2 mmol/L Normal 3.3-5.1 [facility] Comment on above: Result Comment: Hemo lysis present, Results??could be affected.?? Performed By: #### L 503.7505, L500.2500, L100.0100 ####[facility] [address] [place], [address] Basophil percentageOrdered B y: Dionne Montes on 04-02-2025 Basophils/100 WBC (Bld) 0.6 % Normal 0-[address] [facility] Comment on above: Performed By: #### L 503.7505, L500.2500, L100.0100 ####[facility] [address] [place], [address] CBC W/Diff, Automatedon 08-2 0-2024 Absolute Lymph 1.68 X10 3/uL Normal 0.83-4.[address] [facility] Comment on above: Performed By: #### L 503.7505, L500.2500, L100.0100 ####[facility] [address] [place], [address] Absolute Neut 4.3 X10 3/uL Normal 2.0-7.[address] [facility] Comment on above: Performed By: #### L 503.7505, L500.2500, L100.0100 ####[facility] [address] [place], [address] IG% 0.300 Normal 0.0-0.[address] [facility] Comment on above: Result Comment: IG% - Immature Granulocytes (promyelocytes, myelocytes andmetamyelocytes) > 1% indicates that a LEFT SHIFT is Present. Performed By: #### L 503.7505, L500.2500, L100.0100 ####[facility] [address] [place], [address] Lymphocytes/100 WBC (Bld) 24.8 % Normal 19-[address] [facility] Comment on above: Performed By: #### L 503.7505, L500.2500, L100.0100 ####[facility] [address] [place], [address] Nucleated RBC (Bld) [#/Vol] 0 10*3/uL Normal 0-[address] [facility] Comment on above: Performed By: #### L 503.7505, L500.2500, L100.0100 ####[facility] [address] [place], [address] RDW SD 56.3 fl High 35.1-43.[address] [facility] Comment on above: Performed By: #### L 503.7505, L500.2500, L100.0100 ####[facility] [address] [place], [address] Carbon dioxide, total [Moles /volume] in Central venous bloodOrdered By: Dionne Montes on 04-02-2025 CO2 [Moles/Vol] 24.8 mmol/L Normal 21.0-32.[address] [facility] Comment on above: Performed By: #### L 503.7505, L500.2500, L100.0100 ####[facility] [address] [place], [address] Chest PA and Lateralon 04-02 Chest PA and Lateral Normal [facility] Chloride assayOrdered By: Wesley Montes on 04-02-2025 Chloride [Moles/Vol] 98 mmol/L Normal 98-108 [facility] Comment on above: Performed By: #### L 503.7505, L500.2500, L100.0100 ####[facility] [address] [place], [address] Emergency Department Summary on 04-02-2025 Emergency Department Summary Normal [facility] Eosinophil percentageOrdered By: Dionne Montes on 04-02-2025 Eosinophils/100 WBC (Bld) 1.5 % Normal 0-[address] [facility] Comment on above: Performed By: #### L 503.7505, L500.2500, L100.0100 ####[facility] [address] [place], [address] Erythrocyte distribution wid th ratioOrdered By: Dionne Montes on 04-02-2025 Erythrocyte distribution width (RBC) [Ratio] 16.9 % High 11.6-14.[address] [facility] Comment on above: Performed By: #### L 503.7505, L500.2500, L100.0100 ####[facility] [address] [place], [place], [id number] Erythrocyte distribution wid th standard deviationOrdered By: Dionne Montes on 04-02-2025 Erythrocyte distribution width (RBC) [Ratio] 56.3 fl High 35.1-43.[address] [facility] Glomerular filtration rate ( GFR) estimation/1.73 sq m using serum, plasma, or whole bOrdered By: Dionne Montes on 04-02-2025 GFR/1.73 sq M.predicted among non-blacks MDRD (S/P/Bld) [Vol rate/Area] 47 mL/min/{1.73_m2} Low >[address] [facility] Comment on above: mL/min/1.73m2 CKD-EP I Creatinine Equation (2020) Result Comment: mL/m in/1.73m2 CKD-EPI Creatinine Equation (2020) Performed By: #### L 503.7505, L500.2500, L100.0100 ####[facility] [address] [place], [place], [id number] Hemoglobin measurementOrdere d By: Dionne Montes on 04-02-2025 Hemoglobin (Bld) [Mass/Vol] 11.8 g/dL Low 13.0-16.[address] [facility] Comment on above: Performed By: #### L 503.7505, L500.2500, L100.0100 ####[facility] [address] [place], [address] Immature granulocytes/100 WB C Auto (Bld)Ordered By: Dionne Montes on 04-02-2025 Immature granulocytes/100 WBC (Bld) 0.300 % 0.0-0.[address] [facility] Comment on above: IG% - Immature Granu locytes (promyelocytes, myelocytes and metamyelocytes) > 1% indicates that a LEFT SHIFT is Present. L501.4021on 04-02-2025 Trop T High Sen 73 ng/L Invalid Interpretation Code <=[address] [facility] Comment on above: Result Comment: Crit ical Result(s) Called at 1134: by: MILO KWAN.??Results read back by same. Performed By: #### L 501.4021 ####[facility] [address] [place], [address] MCV (mean corpuscular volume ) determinationOrdered By: Dionne Montes on 04-02-2025 MCV (RBC) [Entitic vol] 92.2 fL Normal 80-[address] [facility] Comment on above: Performed By: #### L 503.7505, L500.2500, L100.0100 ####[facility] [address] [place], [address] Mean corpuscular hemoglobin (MCH) determinationOrdered By: Dionne Montes on 04-02-2025 MCH (RBC) [Entitic mass] 29.6 pg Normal 27.0-32.[address] [facility] Comment on above: Performed By: #### L 503.7505, L500.2500, L100.0100 ####[facility] [address] [place], [address] Mean corpuscular hemoglobin concentration (MCHC) determinationOrdered By: Dionne Montes on 04-02-2025 MCHC (RBC) [Mass/Vol] 32.1 g/dL Normal 32-36 [facility] Comment on above: Performed By: #### L 503.7505, L500.2500, L100.0100 ####[facility] [address] [place], [address] Mean platelet volume determi nationOrdered By: Dionne Montes on 04-02-2025 Platelet mean volume (Bld) [Entitic vol] 10.4 fL Normal 6.2-12.[address] [facility] Comment on above: Performed By: #### L 503.7505, L500.2500, L100.0100 ####[facility] [address] [place], [address] Monocyte percentageOrdered B y: Dionne Montes on 04-02-2025 Monocytes/100 WBC (Bld) 9.0 % Normal 0-[address] [facility] Comment on above: Performed By: #### L 503.7505, L500.2500, L100.0100 ####[facility] [address] [place], [address] Natriuretic peptide.B prohor alirio N-Terminal [Mass/volume] in Serum or PlasmaOrdered By: Dionne Montes on 04-02-2025 Natriuretic peptide.B prohormone N-Terminal [Mass/Vol] 8907 pg/mL High <[address] [facility] Comment on above: Heart Failure Unlike ly: < 300 pg/mLHeart Failure Likely< 50 Years: > 450 pg/mL50-75 Years: > 900 pg/mL>75 Years: > 1800 pg/mL Neutrophil percentageOrdered By: Dionne Montes on 04-02-2025 Neutrophils/100 WBC (Bld) 63.8 % Normal 47-[address] [facility] Comment on above: Performed By: #### L 503.7505, L500.2500, L100.0100 ####[facility] [address] [place], [address] Nucleated red blood cell per centageOrdered By: Dionne Montes on 04-02-2025 Nucleated RBC/100 WBC (Bld) [Ratio] 0 % 0-[address] [facility] Platelet countOrdered By: Wesley Montes on 04-02-2025 Platelets (Bld) [#/Vol] 137 10*3/uL Low 150-[address] [facility] Comment on above: Performed By: #### L 503.7505, L500.2500, L100.0100 ####[facility] [address] [place], [address] Potassium measurement (mass/ volume)Ordered By: Dionne Montes on 04-02-2025 Potassium (Unsp spec) [Mass/Vol] 4.2 mmol/L 3.3-5.[address] [facility] Comment on above: Hemolysis present, R esults could be affected. Pro- Brain NATRIURETIC PEPTI [place] 04-02-2025 Natriuretic peptide B (Bld) [Mass/Vol] 8907 pg/mL High <=[address] [facility] Comment on above: Result Comment: Hear t Failure Unlikely: < 300 pg/mLHeart Failure Likely< 50 Years: > 450 pg/mL50-75 Years: > 900 pg/mL>75 Years: > 1800 pg/mL Performed By: #### L 503.7505, L500.2500, L100.0100 ####[facility] [address] [place], [address] Serum creatinine measurement (mass/volume)Ordered By: Dionne Montes on 04-02-2025 Creatinine [Mass/Vol] 1.45 mg/dL High 0.70-1.20 [facility] Comment on above: Performed By: #### L 503.7505, L500.2500, L100.0100 ####[facility] [address] [place], [address] Serum glucose measurement (m ass/volume)Ordered By: Dionne Montes on 04-02-2025 Glucose [Mass/Vol] 104 mg/dL High 70-99 [facility] Comment on above: Performed By: #### L 503.7505, L500.2500, L100.0100 ####[facility] [address] [place], [address] Serum or plasma calcium kelli urement (mass/volume)Ordered By: Dionne Montes on 04-02-2025 Calcium [Mass/Vol] 8.9 mg/dL Normal 7.6-11.0 [facility] Comment on above: Performed By: #### L 503.7505, L500.2500, L100.0100 ####[facility] [address] [place], [address] Serum or plasma urea nitroge n measurement (mass/volume)Ordered By: Dionne Montes on 04-02-2025 Urea nitrogen [Mass/Vol] 28 mg/dL High 4-[address] [facility] Comment on above: Performed By: #### L 503.7505, L500.2500, L100.0100 ####[facility] [address] [place], [place], [address] Sodium levelOrdered By: Pedro Montes on 04-02-2025 Sodium [Moles/Vol] 135 mmol/L Normal 133-145 [facility] Comment on above: Performed By: #### L 503.7505, L500.2500, L100.0100 ####[facility] [address] [place], [address] Troponin T HS 2 HRon 025 Trop T High Sen 67 ng/L Invalid Interpretation Code <=[address] [facility] Comment on above: Result Comment: CRIT ICAL RESULTS CALLED TO RMSTRONG BY MILO TORO.RESULTS READ BACK BY SAME. 1409Hemolysis present, Results??could be affected.??Critical Result(s) Called at: by:??Results [facility]. Performed By: #### L 499.0042 ####[facility] [address] [place], [address] Troponin T.cardiac [Mass/vol ume] in Serum or Plasma by High sensitivity methodOrdered By: Dionne Montes on 04-02-2025 Troponin T.cardiac High sensitivity method [Mass/Vol] 67 ng/L Critically high <[address] [facility] Comment on above: CRITICAL RESULTS CHAITANYA LED TO ZARMSTRONG BY MILO TORO. RESULTS READ BACK BY SAME. 1409Hemolysis present, Results could be affected. Critical Result(s) Called at: by: Results read back by same. Troponin T.cardiac High sensitivity method [Mass/Vol] 73 ng/L Critically high <[address] [facility] Comment on above: Delta: 108 on -1756Critical Result(s) Called at 1134: by: MILO TORO TO SOPHIA. Results read back by same. White blood cell (WBC) count Ordered By: Dionne Montes on 04-02-2025 WBC (Bld) [#/Vol] 6.8 10*3/uL Normal 4.4-11.0 [facility] Comment on above: Performed By: #### L 503.7505, L500.2500, L100.0100 ####[facility] [address] [place], [place], [address] Cardiology Visit Reporton Cardiology Visit Report Normal [facility] Cardiology Visit Reporton Cardiology Visit Report Normal [facility] Culture, Blood (WB)on 2024 CUB Blood cultures x2, f rom two different sites No growth in 5 days. Normal [facility] Comment on above: Performed By: #### M 200.1000, L501.4021, L300.4310, L100.0100, L503.6005, L300.3900, L501.5200, L500.4050 ####[facility] [address] [place], [address] Absolute lymphocyte countOrd ered By: Pedro Galvan on 02-08-2025 Lymphocytes Auto (Unsp spec) [#/Vol] 2.21 10*3/uL 0.83-4.[address] [facility] Absolute neutrophil countOrd ered By: Pedro Galvan on 02-08-2025 Neutrophils (Bld) [#/Vol] 2.9 10*3/uL 2.0-7.[address] [facility] Anion gap in Serum or Plasma Ordered By: Pedro Galvan on 02-08-2025 Anion gap [Moles/Vol] 12 mmol/L 5-15 [facility] Automated lymphocyte count a s percentage of total leukocytesOrdered By: Pedro Galvan on 02-08-2025 Lymphocytes/100 WBC Auto (Unsp spec) 38.6 % 19-[address] [facility] BUN/creatinine ratioOrdered By: Pedro Galvan on 02-08-2025 Urea nitrogen/Creatinine [Mass ratio] 21.9 mg/mg High 10-[address] [facility] Basophil percentageOrdered B y: Pedro Galvan on 02-08-2025 Basophils/100 WBC (Bld) 0.3 % 0-[address] [facility] Bilirubin, totalOrdered By: Pedro Galvan on 02-08-2025 Bilirubin [Mass/Vol] 0.62 mg/dL 0.00-1.30 [facility] Blood polychromasia detectio n by light microscopyOrdered By: Pedro Galvan on 02-08-2025 Polychromasia LM Ql (Bld) 1+ [facility] CBC W/Diff, Automatedon 01-13 POLYCHROMASIA 1+ Normal [facility] Comment on above: Performed By: #### L 500.4050, L100.0100 ####[facility] [address] [place], [address] ATYPICAL LYMPH 2+ Normal [facility] Comment on above: Performed By: #### L 500.4050, L100.0100 ####[facility] [address] [place], [address] PLT EST SLT DEC Normal ADEQ [facility] Comment on above: Performed By: #### L 500.4050, L100.0100 ####[facility] [address] [place], [address] PLT MORPH GIANT Normal [facility] Comment on above: Performed By: #### L 500.4050, L100.0100 ####[facility] [address] [place], [address] Carbon dioxide, total [Moles /volume] in Central venous bloodOrdered By: Pedro Galvan on 02-08-2025 CO2 [Moles/Vol] 20.4 mmol/L Low 21.0-32.[address] [facility] Chloride assayOrdered By: Wesley Galvan on 02-08-2025 Chloride [Moles/Vol] 105 mmol/L 98-108 [facility] Comprehensive Metabolic Prof ilon 02-08-2025 Albumin [Mass/Vol] 3.1 g/dL Low 3.4-4.8 [facility] Comment on above: Performed By: #### L 500.4050, L100.0100 ####[facility] [address] [place], [address] Albumin/Globulin [Mass ratio] 1.2 {ratio} Normal 0.9-2.[address] [facility] Comment on above: Performed By: #### L 500.4050, L100.0100 ####[facility] [address] [place], [address] ALK PHOS 103 U/L Normal 40-[address] [facility] Comment on above: Performed By: #### L 500.4050, L100.0100 ####[facility] [address] [place], [address] ALT [Catalytic activity/Vol] 51 U/L High <=[address] [facility] Comment on above: Performed By: #### L 500.4050, L100.0100 ####[facility] [address] [place], [address] AST [Catalytic activity/Vol] 29 U/L Normal <=[address] [facility] Comment on above: Performed By: #### L 500.4050, L100.0100 ####[facility] [address] [place], [address] Bilirubin [Mass/Vol] 0.62 mg/dL Normal 0.00-1.30 [facility] Comment on above: Performed By: #### L 500.4050, L100.0100 ####[facility] [address] [place], [address] BUN/CRE 21.9 RATIO High 10-[address] [facility] Comment on above: Performed By: #### L 500.4050, L100.0100 ####[facility] [address] [place], [address] Calcium [Mass/Vol] 8.1 mg/dL Normal 7.6-11.0 [facility] Comment on above: Performed By: #### L 500.4050, L100.0100 ####[facility] [address] [place], [address] Chloride [Moles/Vol] 105 mmol/L Normal 98-108 [facility] Comment on above: Performed By: #### L 500.4050, L100.0100 ####[facility] [address] [place], [address] CO2 [Moles/Vol] 20.4 mmol/L Low 21.0-32.[address] [facility] Comment on above: Performed By: #### L 500.4050, L100.0100 ####[facility] [address] [place], [address] Creatinine [Mass/Vol] 1.63 mg/dL High 0.70-1.20 [facility] Comment on above: Performed By: #### L 500.4050, L100.0100 ####[facility] [address] [place], [address] ECRCL 34.62 ml/min Low 50-[address] [facility] Comment on above: Performed By: #### L 500.4050, L100.0100 ####[facility] [address] [place], [address] GAP 12 Normal 5-[address] [facility] Comment on above: Performed By: #### L 500.4050, L100.0100 ####[facility] [address] [place], [address] GFR/1.73 sq M.predicted among non-blacks MDRD (S/P/Bld) [Vol rate/Area] 41 mL/min/{1.73_m2} Low >[address] [facility] Comment on above: Result Comment: mL/m in/1.73m2 CKD-EPI Creatinine Equation (2020) Performed By: #### L 500.4050, L100.0100 ####[facility] [address] [place], [address] Globulin (S) [Mass/Vol] 2.7 g/dL Normal 2.2-4.[address] [facility] Comment on above: Performed By: #### L 500.4050, L100.0100 ####[facility] [address] [place], [address] Glucose [Mass/Vol] 96 mg/dL Normal 70-99 [facility] Comment on above: Performed By: #### L 500.4050, L100.0100 ####[facility] [address] [place], [address] Potassium [Moles/Vol] 4.1 mmol/L Normal 3.3-5.1 [facility] Comment on above: Performed By: #### L 500.4050, L100.0100 ####[facility] [address] [place], [address] Sodium [Moles/Vol] 137 mmol/L Normal 133-145 [facility] Comment on above: Performed By: #### L 500.4050, L100.0100 ####[facility] [address] [place], [address] T PROT 5.7 g/dL Low 5.9-8.[address] [facility] Comment on above: Performed By: #### L 500.4050, L100.0100 ####[facility] [address] [place], [address] Urea nitrogen [Mass/Vol] 36 mg/dL High 4-[address] [facility] Comment on above: Performed By: #### L 500.4050, L100.0100 ####[facility] [address] [place], [address] Eosinophil percentageOrdered By: Pedro Galvan on 02-08-2025 Eosinophils/100 WBC (Bld) 3.1 % 0-[address] [facility] Erythrocyte distribution wid th ratioOrdered By: Pedro Galvan on 02-08-2025 Erythrocyte distribution width (RBC) [Ratio] 14.6 % 11.6-14.[address] [facility] Erythrocyte distribution wid th standard deviationOrdered By: Pedro Galvan on 02-08-2025 Erythrocyte distribution width (RBC) [Ratio] 46.5 fl High 35.1-43.[address] [facility] Glomerular filtration rate ( GFR) estimation/1.73 sq m using serum, plasma, or whole bOrdered By: Pedro Galvan on 02-08-2025 GFR/1.73 sq M.predicted among non-blacks MDRD (S/P/Bld) [Vol rate/Area] 41 mL/min/{1.73_m2} Low >[address] [facility] Comment on above: mL/min/1.73m2 CKD-EP I Creatinine Equation (2020) Hematocrit Auto (Bld) [Volum e fraction]Ordered By: Pedro Galvan on 02-08-2025 Hematocrit (Bld) [Volume fraction] 30.4 % Low 40-[address] [facility] Hemoglobin measurementOrdere d By: Pedro Galvan on 02-08-2025 Hemoglobin (Bld) [Mass/Vol] 10.2 g/dL Low 13.0-16.[address] [facility] Immature granulocytes/100 WB C Auto (Bld)Ordered By: Pedro Galvan on 02-08-2025 Immature granulocytes/100 WBC (Bld) 0.300 % 0.0-0.[address] [facility] Comment on above: IG% - Immature Granu locytes (promyelocytes, myelocytes and metamyelocytes) > 1% indicates that a LEFT SHIFT is Present. Laboratory - Chemistry and C hemistry - challengeOrdered By: Pedro Galvan on 02-08-2025 AST [Catalytic activity/Vol] 29 U/L <[address] [facility] MCV (mean corpuscular volume ) determinationOrdered By: Pedro Galvan on 02-08-2025 MCV (RBC) [Entitic vol] 86.6 fL 80-[address] [facility] Mean corpuscular hemoglobin (MCH) determinationOrdered By: Pedro Galvan on 02-08-2025 MCH (RBC) [Entitic mass] 29.1 pg 27.0-32.[address] [facility] Mean corpuscular hemoglobin concentration (MCHC) determinationOrdered By: Pedro Galvan on 02-08-2025 MCHC (RBC) [Mass/Vol] 33.6 g/dL 32-36 [facility] Mean platelet volume determi nationOrdered By: Pedro Galvan on 02-08-2025 Platelet mean volume (Bld) [Entitic vol] 11.2 fL 6.2-12.[address] [facility] Monocyte percentageOrdered B y: Pedro Galvan on 02-08-2025 Monocytes/100 WBC (Bld) 6.6 % 0-[address] [facility] Neutrophil percentageOrdered By: Pedro Galvan on 02-08-2025 Neutrophils/100 WBC (Bld) 51.1 % 47-[address] [facility] Nucleated red blood cell per centageOrdered By: Pedro Galvan on 02-08-2025 Nucleated RBC/100 WBC (Bld) [Ratio] 0 % 0-[address] [facility] Platelet countOrdered By: Wesley Galvan on 02-08-2025 Platelets (Bld) [#/Vol] 124 10*3/uL Low 150-[address] [facility] Platelet estimateOrdered By: Pedro Galvan on 02-08-2025 Platelets LM Ql (Bld) SLT DEC ADEQ [facility] Platelet morphologyOrdered B y: Pedro Galvan on 02-08-2025 Platelet morphology finding Nom (Bld) GIANT [facility] Potassium measurement (mass/ volume)Ordered By: Pedro Galvan on 02-08-2025 Potassium (Unsp spec) [Mass/Vol] 4.1 mmol/L 3.3-5.[address] [facility] RBC Auto (Bld) [#/Vol]Ordere d By: Pedro Galvan on 02-08-2025 RBC (Bld) [#/Vol] 3.51 10*6/uL Low 4.6-6.2 [facility] Serum creatinine measurement (mass/volume)Ordered By: Pedro Galvan on 02-08-2025 Creatinine [Mass/Vol] 1.63 mg/dL High 0.70-1.20 [facility] Serum globulin measurementOr dered By: Pedro Galvan on 02-08-2025 Globulin (S) [Mass/Vol] 2.7 g/dL 2.2-4.[address] [facility] Serum glucose measurement (m ass/volume)Ordered By: Pedro Galvan on 02-08-2025 Glucose [Mass/Vol] 96 mg/dL 70-99 [facility] Serum or plasma alanine holm otransferase (ALT) measurementOrdered By: Pedro Galvan on 02-08-2025 ALT [Catalytic activity/Vol] 51 U/L High <[address] [facility] Serum or plasma albumin kelli urement (mass/volume)Ordered By: Pedro Galvan on 02-08-2025 Albumin [Mass/Vol] 3.1 g/dL Low 3.4-4.8 [facility] Serum or plasma albumin/glob ulin mass ratioOrdered By: Pedro Galvan on 02-08-2025 Albumin/Globulin [Mass ratio] 1.2 {ratio} 0.9-2.[address] [facility] Serum or plasma alkaline karen sphatase measurementOrdered By: Pedro Galvan on 02-08-2025 ALP [Catalytic activity/Vol] 103 U/L 40-[address] [facility] Serum or plasma calcium kelli urement (mass/volume)Ordered By: Pedro Galvan on 02-08-2025 Calcium [Mass/Vol] 8.1 mg/dL 7.6-11.0 [facility] Serum or plasma urea nitroge n measurement (mass/volume)Ordered By: Pedro Galvan on 02-08-2025 Urea nitrogen [Mass/Vol] 36 mg/dL High 4-[address] [facility] Sodium levelOrdered By: Pedro Galvan on 02-08-2025 Sodium [Moles/Vol] 137 mmol/L 133-145 [facility] Total proteinOrdered By: Sophia Galvan on 02-08-2025 Protein [Mass/Vol] 5.7 g/dL Low 5.9-8.4 [facility] White blood cell (WBC) count Ordered By: Pedro Galvan on 02-08-2025 WBC (Bld) [#/Vol] 5.7 10*3/uL 4.4-11.0 [facility] CBC W/Diff, Automatedon 06- ATYPICAL LYMPH 2+ Normal [facility] Comment on above: Performed By: #### L 500.4050, L100.0100 ####[facility] [address] [place], [address] OVALOCYTE 1+ Normal [facility] Comment on above: Performed By: #### L 500.4050, L100.0100 ####[facility] [address] [place], [address] PLT EST MOD DEC Normal ADEQ [facility] Comment on above: Performed By: #### L 500.4050, L100.0100 ####[facility] [address] [place], [address] Comprehensive Metabolic Prof ilon 02-07-2025 Albumin [Mass/Vol] 3.0 g/dL Low 3.4-4.8 [facility] Comment on above: Performed By: #### L 500.4050, L100.0100 ####[facility] [address] [place], [address] Albumin/Globulin [Mass ratio] 1.2 {ratio} Normal 0.9-2.[address] [facility] Comment on above: Performed By: #### L 500.4050, L100.0100 ####[facility] [address] [place], [address] ALK PHOS 106 U/L Normal 40-[address] [facility] Comment on above: Performed By: #### L 500.4050, L100.0100 ####[facility] [address] [place], [address] ALT [Catalytic activity/Vol] 59 U/L High <=[address] [facility] Comment on above: Performed By: #### L 500.4050, L100.0100 ####[facility] [address] [place], [address] AST [Catalytic activity/Vol] 34 U/L Normal <=[address] [facility] Comment on above: Performed By: #### L 500.4050, L100.0100 ####[facility] [address] [place], [address] Bilirubin [Mass/Vol] 0.70 mg/dL Normal 0.00-1.30 [facility] Comment on above: Performed By: #### L 500.4050, L100.0100 ####[facility] [address] [place], [address] BUN/CRE 25.7 RATIO High 10-[address] [facility] Comment on above: Performed By: #### L 500.4050, L100.0100 ####[facility] [address] [place], [address] Calcium [Mass/Vol] 8.0 mg/dL Normal 7.6-11.0 [facility] Comment on above: Performed By: #### L 500.4050, L100.0100 ####[facility] [address] [place], [address] Chloride [Moles/Vol] 102 mmol/L Normal 98-108 [facility] Comment on above: Performed By: #### L 500.4050, L100.0100 ####[facility] [address] [place], [address] CO2 [Moles/Vol] 18.3 mmol/L Low 21.0-32.[address] [facility] Comment on above: Performed By: #### L 500.4050, L100.0100 ####[facility] [address] [place], [address] Creatinine [Mass/Vol] 1.72 mg/dL High 0.70-1.20 [facility] Comment on above: Performed By: #### L 500.4050, L100.0100 ####[facility] [address] [place], [address] ECRCL 32.86 ml/min Low 50-[address] [facility] Comment on above: Performed By: #### L 500.4050, L100.0100 ####[facility] [address] [place], [address] GAP 14 Normal 5-[address] [facility] Comment on above: Performed By: #### L 500.4050, L100.0100 ####[facility] [address] [place], [address] GFR/1.73 sq M.predicted among non-blacks MDRD (S/P/Bld) [Vol rate/Area] 38 mL/min/{1.73_m2} Low >[address] [facility] Comment on above: Result Comment: mL/m in/1.73m2 CKD-EPI Creatinine Equation (2020) Performed By: #### L 500.4050, L100.0100 ####[facility] [address] [place], [address] Globulin (S) [Mass/Vol] 2.6 g/dL Normal 2.2-4.[address] [facility] Comment on above: Performed By: #### L 500.4050, L100.0100 ####[facility] [address] [place], [address] Glucose [Mass/Vol] 96 mg/dL Normal 70-99 [facility] Comment on above: Performed By: #### L 500.4050, L100.0100 ####[facility] [address] [place], [address] Potassium [Moles/Vol] 3.9 mmol/L Normal 3.3-5.1 [facility] Comment on above: Performed By: #### L 500.4050, L100.0100 ####[facility] [address] [place], [address] Sodium [Moles/Vol] 134 mmol/L Normal 133-145 [facility] Comment on above: Performed By: #### L 500.4050, L100.0100 ####[facility] [address] [place], [address] T PROT 5.5 g/dL Low 5.9-8.[address] [facility] Comment on above: Performed By: #### L 500.4050, L100.0100 ####[facility] [address] [place], [address] Urea nitrogen [Mass/Vol] 44 mg/dL High 4-[address] [facility] Comment on above: Performed By: #### L 500.4050, L100.0100 ####[facility] [address] [place], [address] Consultation - Surgicalon Consultation - Surgical Normal [facility] Hepatobilliary Img w/Pharm I nton 02-07-2025 Hepatobilliary Img w/Pharm Int Normal [facility] Ovalocyte detectionOrdered B y: Pedro Galvan on 02-07-2025 Ovalocytes LM Ql (Bld) 1+ [facility] Respiratory Cultureon 2024 RESPC List Antibiotics Las t 48 Hours? zosyn Mixed normal respiratory ana rosa. No Streptococcus pneumoniae, beta-hemolytic Streptococcus or Staphylococcus aureus isolated. Normal [facility] Comment on above: Performed By: #### M 100.2000, M100.2400 ####[facility] [address] [place], [address] Basic Metabolic Profile (BMP )on 02-06-2025 BUN/CRE 25.9 RATIO High 10-[address] [facility] Comment on above: Performed By: #### L 501.5200, L501.2300, L500.2500, L100.0100 ####[facility] [address] [place], [address] Calcium [Mass/Vol] 6.7 mg/dL Low 7.6-11.0 [facility] Comment on above: Performed By: #### L 501.5200, L501.2300, L500.2500, L100.0100 ####[facility] [address] [place], [address] Chloride [Moles/Vol] 106 mmol/L Normal 98-108 [facility] Comment on above: Performed By: #### L 501.5200, L501.2300, L500.2500, L100.0100 ####[facility] [address] [place], [address] CO2 [Moles/Vol] 15.5 mmol/L Low 21.0-32.[address] [facility] Comment on above: Performed By: #### L 501.5200, L501.2300, L500.2500, L100.0100 ####[facility] [address] [place], [address] Creatinine [Mass/Vol] 1.47 mg/dL High 0.70-1.20 [facility] Comment on above: Performed By: #### L 501.5200, L501.2300, L500.2500, L100.0100 ####[facility] [address] [place], [address] ECRCL 37.64 ml/min Low 50-[address] [facility] Comment on above: Performed By: #### L 501.5200, L501.2300, L500.2500, L100.0100 ####[facility] [address] [place], [address] GAP 12 Normal 5-[address] [facility] Comment on above: Performed By: #### L 501.5200, L501.2300, L500.2500, L100.0100 ####[facility] [address] [place], [address] GFR/1.73 sq M.predicted among non-blacks MDRD (S/P/Bld) [Vol rate/Area] 46 mL/min/{1.73_m2} Low >[address] [facility] Comment on above: Result Comment: mL/m in/1.73m2 CKD-EPI Creatinine Equation (2020) Performed By: #### L 501.5200, L501.2300, L500.2500, L100.0100 ####[facility] [address] [place], [address] Glucose [Mass/Vol] 97 mg/dL Normal 70-99 [facility] Comment on above: Performed By: #### L 501.5200, L501.2300, L500.2500, L100.0100 ####[facility] [address] [place], [address] Potassium [Moles/Vol] 4.0 mmol/L Normal 3.3-5.1 [facility] Comment on above: Result Comment: Hemo lysis present, Results??could be affected.?? Performed By: #### L 501.5200, L501.2300, L500.2500, L100.0100 ####[facility] [address] [place], [address] Sodium [Moles/Vol] 133 mmol/L Normal 133-145 [facility] Comment on above: Performed By: #### L 501.5200, L501.2300, L500.2500, L100.0100 ####[facility] [address] [place], [address] Urea nitrogen [Mass/Vol] 38 mg/dL High 4-[address] [facility] Comment on above: Performed By: #### L 501.5200, L501.2300, L500.2500, L100.0100 ####[facility] [address] [place], [address] CBC W/Diff, Automatedon 01-13 ATYPICAL LYMPH 1+ Normal [facility] Comment on above: Performed By: #### L 501.5200, L501.2300, L500.2500, L100.0100 ####[facility] [address] [place], [address] Magnesiumon 02-06-2025 Magnesium [Mass/Vol] 2.0 mg/dL Normal 1.5-2.2 [facility] Comment on above: Performed By: #### L 501.5200, L501.2300, L500.2500, L100.0100 ####[facility] [address] [place], [address] Magnesium measurement (mass/ volume)Ordered By: Rea Cancino on 02-06-2025 Magnesium (Unsp spec) [Mass/Vol] 2.0 mg/dL 1.5-2.[address] [facility] Phosphoruson 02-06-2025 Phosphate [Mass/Vol] 3.3 mg/dL Normal 2.7-4.5 [facility] Comment on above: Performed By: #### L 501.5200, L501.2300, L500.2500, L100.0100 ####[facility] [address] [place], [address] CBC W/Diff, Automatedon 01-13 Absolute Lymph 0.76 X10 3/uL Low 0.83-4.[address] [facility] Comment on above: Performed By: #### L 500.4050, L500.4100, L501.9520, L100.0100 ####[facility] [address] [place], [address] Absolute Neut 3.4 X10 3/uL Normal 2.0-7.[address] [facility] Comment on above: Performed By: #### L 500.4050, L500.4100, L501.9520, L100.0100 ####[facility] [address] [place], [address] Basophils/100 WBC (Bld) 0.2 % Normal 0-[address] [facility] Comment on above: Performed By: #### L 500.4050, L500.4100, L501.9520, L100.0100 ####[facility] [address] [place], [address] Eosinophils/100 WBC (Bld) 0.0 % Normal 0-[address] [facility] Comment on above: Performed By: #### L 500.4050, L500.4100, L501.9520, L100.0100 ####[facility] [address] [place], [address] Erythrocyte distribution width (RBC) [Ratio] 14.0 % Normal 11.6-14.[address] [facility] Comment on above: Performed By: #### L 500.4050, L500.4100, L501.9520, L100.0100 ####[facility] [address] [place], [address] Hematocrit (Bld) [Volume fraction] 31.5 % Low 40-[address] [facility] Comment on above: Performed By: #### L 500.4050, L500.4100, L501.9520, L100.0100 ####[facility] [address] [place], [address] Hemoglobin (Bld) [Mass/Vol] 10.7 g/dL Low 13.0-16.[address] [facility] Comment on above: Performed By: #### L 500.4050, L500.4100, L501.9520, L100.0100 ####[facility] [address] [place], [address] IG% 0.400 Normal 0.0-0.[address] [facility] Comment on above: Result Comment: IG% - Immature Granulocytes (promyelocytes, myelocytes andmetamyelocytes) > 1% indicates that a LEFT SHIFT is Present. Performed By: #### L 500.4050, L500.4100, L501.9520, L100.0100 ####[facility] [address] [place], [address] Lymphocytes/100 WBC (Bld) 16.4 % Low 19-[address] [facility] Comment on above: Performed By: #### L 500.4050, L500.4100, L501.9520, L100.0100 ####[facility] [address] [place], [address] MCH (RBC) [Entitic mass] 29.5 pg Normal 27.0-32.[address] [facility] Comment on above: Performed By: #### L 500.4050, L500.4100, L501.9520, L100.0100 ####[facility] [address] [place], [address] MCHC (RBC) [Mass/Vol] 34.0 g/dL Normal 32-36 [facility] Comment on above: Performed By: #### L 500.4050, L500.4100, L501.9520, L100.0100 ####[facility] [address] [place], [address] MCV (RBC) [Entitic vol] 86.8 fL Normal 80-[address] [facility] Comment on above: Performed By: #### L 500.4050, L500.4100, L501.9520, L100.0100 ####[facility] [address] [place], [address] Monocytes/100 WBC (Bld) 9.1 % Normal 0-[address] [facility] Comment on above: Performed By: #### L 500.4050, L500.4100, L501.9520, L100.0100 ####[facility] [address] [place], [address] Neutrophils/100 WBC (Bld) 73.9 % High 47-[address] [facility] Comment on above: Performed By: #### L 500.4050, L500.4100, L501.9520, L100.0100 ####[facility] [address] [place], [address] Nucleated RBC (Bld) [#/Vol] 0 10*3/uL Normal 0-[address] [facility] Comment on above: Performed By: #### L 500.4050, L500.4100, L501.9520, L100.0100 ####[facility] [address] [place], [address] Platelet mean volume (Bld) [Entitic vol] 10.9 fL Normal 6.2-12.[address] [facility] Comment on above: Performed By: #### L 500.4050, L500.4100, L501.9520, L100.0100 ####[facility] [address] [place], [address] Platelets (Bld) [#/Vol] 86 10*3/uL Low 150-[address] [facility] Comment on above: Performed By: #### L 500.4050, L500.4100, L501.9520, L100.0100 ####[facility] [address] [place], [address] RBC (Bld) [#/Vol] 3.63 10*6/uL Low 4.6-6.2 [facility] Comment on above: Performed By: #### L 500.4050, L500.4100, L501.9520, L100.0100 ####[facility] [address] [place], [address] RDW SD 45.0 fl High 35.1-43.[address] [facility] Comment on above: Performed By: #### L 500.4050, L500.4100, L501.9520, L100.0100 ####[facility] [address] [place], [address] WBC (Bld) [#/Vol] 4.6 10*3/uL Normal 4.4-11.0 [facility] Comment on above: Performed By: #### L 500.4050, L500.4100, L501.9520, L100.0100 ####[facility] [address] [place], [address] Calculated very low density lipoprotein (VLDL) cholesterol measurementOrdered By: Rea Cancino on 2025 Calculated very low density lipoprotein (VLDL) cholesterol measurement 16 mg/dL 5-[address] [facility] Comprehensive Metabolic Prof ilon 2025 Albumin [Mass/Vol] 3.4 g/dL Normal 3.4-4.8 [facility] Comment on above: Performed By: #### L 500.4050, L500.4100, L501.9520, L100.0100 ####[facility] [address] [place], [address] Albumin/Globulin [Mass ratio] 1.3 {ratio} Normal 0.9-2.[address] [facility] Comment on above: Performed By: #### L 500.4050, L500.4100, L501.9520, L100.0100 ####[facility] [address] [place], [address] ALK PHOS 144 U/L High 40-[address] [facility] Comment on above: Performed By: #### L 500.4050, L500.4100, L501.9520, L100.0100 ####[facility] [address] [place], [address] ALT [Catalytic activity/Vol] 86 U/L High <=[address] [facility] Comment on above: Performed By: #### L 500.4050, L500.4100, L501.9520, L100.0100 ####[facility] [address] [place], [address] AST [Catalytic activity/Vol] 93 U/L High <=[address] [facility] Comment on above: Performed By: #### L 500.4050, L500.4100, L501.9520, L100.0100 ####[facility] [address] [place], [address] Bilirubin [Mass/Vol] 0.75 mg/dL Normal 0.00-1.30 [facility] Comment on above: Performed By: #### L 500.4050, L500.4100, L501.9520, L100.0100 ####[facility] [address] [place], [address] BUN/CRE 27.3 RATIO High 10-[address] [facility] Comment on above: Performed By: #### L 500.4050, L500.4100, L501.9520, L100.0100 ####[facility] [address] [place], [address] Calcium [Mass/Vol] 8.2 mg/dL Normal 7.6-11.0 [facility] Comment on above: Performed By: #### L 500.4050, L500.4100, L501.9520, L100.0100 ####[facility] [address] [place], [address] Chloride [Moles/Vol] 96 mmol/L Low 98-108 [facility] Comment on above: Performed By: #### L 500.4050, L500.4100, L501.9520, L100.0100 ####[facility] [address] [place], [address] CO2 [Moles/Vol] 18.7 mmol/L Low 21.0-32.[address] [facility] Comment on above: Performed By: #### L 500.4050, L500.4100, L501.9520, L100.0100 ####[facility] [address] [place], [address] Creatinine [Mass/Vol] 1.82 mg/dL High 0.70-1.20 [facility] Comment on above: Performed By: #### L 500.4050, L500.4100, L501.9520, L100.0100 ####[facility] [address] [place], [address] ECRCL 30.24 ml/min Low 50-[address] [facility] Comment on above: Performed By: #### L 500.4050, L500.4100, L501.9520, L100.0100 ####[facility] [address] [place], [address] GAP 15 Normal 5-[address] [facility] Comment on above: Performed By: #### L 500.4050, L500.4100, L501.9520, L100.0100 ####[facility] [address] [place], [address] GFR/1.73 sq M.predicted among non-blacks MDRD (S/P/Bld) [Vol rate/Area] 36 mL/min/{1.73_m2} Low >[address] [facility] Comment on above: Result Comment: mL/m in/1.73m2 CKD-EPI Creatinine Equation (2020) Performed By: #### L 500.4050, L500.4100, L501.9520, L100.0100 ####[facility] [address] [place], [address] Globulin (S) [Mass/Vol] 2.6 g/dL Normal 2.2-4.[address] [facility] Comment on above: Performed By: #### L 500.4050, L500.4100, L501.9520, L100.0100 ####[facility] [address] [place], [address] Glucose [Mass/Vol] 121 mg/dL High 70-99 [facility] Comment on above: Performed By: #### L 500.4050, L500.4100, L501.9520, L100.0100 ####[facility] [address] [place], [address] Potassium [Moles/Vol] 3.5 mmol/L Normal 3.3-5.1 [facility] Comment on above: Performed By: #### L 500.4050, L500.4100, L501.9520, L100.0100 ####[facility] [address] [place], [address] Sodium [Moles/Vol] 130 mmol/L Low 133-145 [facility] Comment on above: Performed By: #### L 500.4050, L500.4100, L501.9520, L100.0100 ####[facility] [address] [place], [address] T PROT 5.9 g/dL Normal 5.9-8.[address] [facility] Comment on above: Performed By: #### L 500.4050, L500.4100, L501.9520, L100.0100 ####[facility] [address] [place], [address] Urea nitrogen [Mass/Vol] 50 mg/dL High 4-[address] [facility] Comment on above: Performed By: #### L 500.4050, L500.4100, L501.9520, L100.0100 ####[facility] [address] [place], [address] Consultation - Cardiologyon 2025 Consultation - Cardiology Normal [facility] Consultation - Intensiviston 2025 Consultation - Stone Repairer Normal [facility] Echo Limited w/Contraston Echo Limited w/Contrast Normal [facility] Electrocardiogram reportOrde red By: Cj Gardiner on 2025 EKG study [facility] Cardiovascular Services [address] [place] [address] 12 Lead EKG 02/04/25 1758 MR#: [id number] Acct: [id number] Name: FLORIN VARGAS Rep #:[id number] : 1940 85 From: Cj Gardiner MD Attending Dr: Dr. Pedro Galvan DO Status: ADM IN Ordering Dr: Maryanne Emanuel DO Date: 02/04/25 Location: ICU Sex: M C Admitted: 02/04/25 Test Reason : Blood Pressure : */* mmHG Vent. Rate : 100 BPM Atrial Rate : 100 BPM P-R Int : 230 ms QRS Dur : 98 ms QT Int : 362 ms P-R-T Axes : 89 11 115 degrees QTcB Int : 466 ms Sinus rhythm with 1st degree A-V block with frequent Premature ventricular complexes and Fusion complexes Inferior infarct , age undetermined Abnormal ECG Confirmed by ABDIFATAH BROOKS, CJ ([id number]), supervising editor trailer SAMMI LIMA ([id number]) on 511:10:12 AM Referred By: Rea Cancino Confirmed By: CJ GARDINER MD 02/05/25 1110 Date _ Cj Gardiner MD CC: Dr. Rea Cancino MD; Dr. Maryanne Emanuel DO; Dr. Pedro Galvan DO; Dr. Pedro Gonzalez MD ~ Signed [facility] Work Phone: Gram Stainon 2025 GS List Antibiotics Las t 48 Hours? zosyn Acceptable Specimen? Yes (<25 Epithelial cells per/lpf) Gram Stain 3+ Gram positive cocci 2+ Gram negative rods 2+ Epithelial cells 2+ Gram positive rods Normal [facility] Comment on above: Performed By: #### M 100.2000, M100.2400 ####[facility] [address] [place], [address] Gram stainOrdered By: Rea Cancino on 2025 Microscopic observation Gram stain Nom (Unsp spec) [facility] L509.7001on 2025 Procalcitonin 1.39 ng/mL High <=0.[address] [facility] Comment on above: Result Comment: Inte rpretation:<0.10-0.25 ng/mL: Antibiotic therapy discouraged. Bacterialinfection unlikely.0.25-0.50 ng/mL: Antibiotic therapy encouraged. Bacterialinfection possible.>0.50 ng/mL: Antibiotic therapy strongly encouraged.Suggestive of presence of bacterial infection.PCT should always be interpreted in the clinical context ofthe patient. Therefore, clinicians should use the PCTresults in conjunction with other laboratory findings andclinical signs of the patient. Performed By: #### L 509.7001 ####[facility] [address] [place], [address] LDL calc ser/plasOrdered By: Rea Cancino on 2025 Cholesterol in LDL [Mass/Vol] 161 mg/dL [facility] Comment on above: Fmuxgvgpgj=954-663 m g/dL & Higher Lfgi=761 mg/dL or greater Limited echocardiogram repor tOrdered By: Cj Gardiner on 2025 Study report [facility] Cardiovascular Services [address] [facility] [address] Echo Limited w/Contrast 02/05/25 0910 MR#: [id number] Acct: [id number] Name: FLORIN VARGAS Rep #:[id number] : 1940 85 From: Cj Anne Attending Dr: Dr. Pedro Galvan, DO Status: ADM IN Ordering Dr: Rea Cancino MD Date: 02/05/25 Location: ICU Sex: M C Admitted: 02/04/25 Reason For Study Reason For Study: CONGESTIVE HEART FAILURE Procedure This was a limited 2D transthoracic echocardiogram. Contrast injection was performed. Exam performed portable in ICU/CCU. Left Ventricle Mildly dilated left ventricle. The left ventricular ejection fraction is 25 %. There is moderate global hypokinesis of the left ventricle. Right Ventricle Normal RV size. Normal systolic function. Atria Normal left atrium. Normal right atrium. Tricuspid Valve Normal tricuspid valve. Mild (1+) tricuspid valve insufficiency. Pulmonary artery systolic pressure is 35 mmHg. Aortic Valve Bioprosthetic aortic valve. Great Vessels Normal aortic root. Pericardium/Pleural No pericardial effusion. Medication Diluted definity 2ml given slow IV push to enhance endocardial definition. MMode/2D Measurements & Calculations LVIDd: 5.8 cm IVSd: 0.79 cm LAV(MOD-bp): 69.8 ml LVIDs: 4.6 cm LVPWd: 0.67 cm LAV(MOD-bp) Indexed: 35.7 ml/m2 RVDd: 4.4 cm FS: 21.8 % LAV(MOD-sp2): 60.8 ml LAV(MOD-sp4): 67.8 ml LVAd ap4: 51.1 cm2 LVAd ap2: 54.8 cm2 SV(MOD-sp4): 54.9 ml LVLd ap4: 9.6 cm LVLd ap2: 9.9 cm SI(MOD-sp4): 28.1 ml/m2 EDV(MOD-sp4): 221.2 ml EDV(MOD-sp2): 248.3 ml EDV(sp4-el): 230.4 ml EDV(sp2-el): 257.2 ml LVAs ap4: 43.1 cm2 LVAs ap2: 47.4 cm2 LVLs ap4: 9.3 cm LVLs ap2: 9.0 cm ESV(MOD-sp4): 166.3 ml ESV(MOD-sp2): 202.5 ml ESV(sp4-el): 168.8 ml ESV(sp2-el): 212.3 ml EF(MOD-sp4): 24.8 % EF(MOD-sp2): 18.4 % EF(sp4-el): 26.7 % SV(MOD-sp2): 45.8 ml SV(sp4-el): 61.6 ml Ao sinusdiam: 3.1 cm SI(MOD-sp2): 23.4 ml/m2 LA A4 area: 22.4 cm2 LA dimension(2D): 4.1 cm RA A4 area: 16.8 cm2 TAPSE: 0.92 cm Doppler Measurements & Calculations TR max adri: 276.0 cm/sec TR max P.5 mmHg ECHO/Echo Limited w/Contrast Interpretation Summary There is moderate global hypokinesis of the left ventricle. Mildly dilated left ventricle. The left ventricular ejection fraction is 25 %. Bioprosthetic aortic valve. Contrast injection was performed. Ordering Physician: Rea Cancino Referring Physician: Rea Cancino Performed By: Tori Daniel RDCS 02/05/25 112 Date _ Cj Gardiner MD CC: Dr. Rea Cancino MD; Dr. Pedro Galvan DO; Dr. Pedro Gonzalez MD ~ Date Dictated: 02/05/25909 Date Transcribed: 02/05/251123 [employer] Tester: Signed [facility] Work Phone: Lipid Profileon 2025 CHOL:HDL 4.[address] [facility] Comment on above: Performed By: #### L 500.4050, L500.4100, L501.9520, L100.0100 ####[facility] [address] [facility], [address] Cholesterol [Mass/Vol] 224 mg/dL High <=[address] [facility] Comment on above: Result Comment: Chol esterol level, Desirable <200 mg/dLBorderline high cholesterol 200-239 mg/dLHigh cholesterol >=240 mg/dLRecommendations of the NCEP Adult Treatment Panel for thefollowing risk-cutoff thresholds for the [place] Americanpopulation. Performed By: #### L 500.4050, L500.4100, L501.9520, L100.0100 ####[facility] [address] [place], [place], [address] Cholesterol in HDL [Mass/Vol] 47 mg/dL Normal [facility] Comment on above: Result Comment: Heather onal Cholesterol Education Program (NCEP) guidelines:<40 mg/dL: Low HDL-cholesterol (major risk factor for CHD)>= 60 mg/dL: High HDL-cholesterol (negative risk factor forCHD)HDL-cholesterol is affected by a number of factors, e.g.smoking, exercise, hormones, sex and age. Performed By: #### L 500.4050, L500.4100, L501.9520, L100.0100 ####[facility] [address] [place], [address] Cholesterol in LDL [Mass/Vol] 161 mg/dL Normal [facility] Comment on above: Result Comment: Bord jpefbw=372-232 mg/dL Higher Qbyh=924 mg/dL or greater Performed By: #### L 500.4050, L500.4100, L501.9520, L100.0100 ####[facility] [address] [place], [address] Cholesterol in VLDL [Mass/Vol] 16 mg/dL Normal 5-[address] [facility] Comment on above: Performed By: #### L 500.4050, L500.4100, L501.9520, L100.0100 ####[facility] [address] [place], [address] Triglyceride [Mass/Vol] 80 mg/dL Normal [facility] Comment on above: Result Comment: The drugs N-Acetylcysteine and Metamizole may falselydepress this assay.Normal range: <150 mg/dLBorderline High: 150-199 mg/dLHigh: 200-499 mg/dLVery High: >500 mg/dL Performed By: #### L 500.4050, L500.4100, L501.9520, L100.0100 ####[facility] [address] [place], [address] Microbial respiratory cultur eOrdered By: Rea Cancino on 2025 Microorganism identified Cx Nom (Unsp spec) or Staphylococcus aureus isolated. [facility] RESPIRATORY PANEL MOLECULARo n 2025 RP PANEL Normal [facility] Comment on above: Performed By: #### M 100.638 ####[facility] [address] [place], [place], [id number] Respiratory pathogens detect ion panel by molecular detection methodOrdered By: Rea Cancino on 2025 Respiratory pathogens DNA and RNA panel RHIANNA+probe (Resp) [facility] Screening total cholesterol/ high density lipoprotein (HDL) cholesterol ratioOrdered By: Rea Cancino on 2025 Cholesterol.total/Cho lesterol in HDL [Mass ratio] 4.74 {ratio} [facility] Serum or plasma cholesterol in HDL measurement (mass/volume)Ordered By: Rea Cancino on 2025 Cholesterol in HDL [Mass/Vol] 47 mg/dL >[address] [facility] Comment on above: National Cholesterol Education Program (NCEP) guidelines:<40 mg/dL: Low HDL-cholesterol (major risk factor for CHD)>= 60 mg/dL: High HDL-cholesterol (negative risk factor for CHD)HDL-cholesterol is affected by a number of factors, e.g. smoking, exercise, hormones, sex and age. Serum or plasma cholesterol measurement (mass/volume)Ordered By: Rea Cancino on 2025 Cholesterol [Mass/Vol] 224 mg/dL High <[address] [facility] Comment on above: Cholesterol level, D esirable <200 mg/dLBorderline high cholesterol 200-239 mg/dLHigh cholesterol >=240 mg/dLRecommendations of the NCEP Adult Treatment Panel for the following risk-cutoff thresholds for the [place] population. TSH DL <= 0.005 mIU/L QnOrde red By: Rea Cancino on 2025 TSH Qn 1.900 uIU/mL 0.300-4.[address] [facility] Thyroid Stim Hormone (TSH)on 2025 TSH 1.900 uIU/mL Normal 0.300-4.[address] [facility] Comment on above: Performed By: #### L 500.4050, L500.4100, L501.9520, L100.0100 ####[facility] [address] [place], [place], [id number] Triglycerides measurementOrd ered By: Rea White on 2025 Triglyceride [Mass/Vol] 80 mg/dL <[address] [facility] Comment on above: The drugs N-Acetylcy steine and Metamizole may falsely depress this assay. Normal range: <150 mg/dLBorderline High: 150-199 mg/dLHigh: 200-499 mg/dLVery High: >500 mg/dL Urine Cultureon 2025 URC Culture exhibits no growth. Normal [facility] Comment on above: Performed By: #### L 400.0001, M100.2200 ####[facility] [address] [place], [address] 12 Lead EKGon 02-04-2025 12 Lead EKG Normal [facility] Absolute lymphocyte countOrd ered By: Maryanne Emanuel on 02-04-2025 Lymphocytes Auto (Unsp spec) [#/Vol] 0.70 10*3/uL Low 0.83-4.[address] [facility] Absolute neutrophil countOrd ered By: Maryanne Emanuel on 02-04-2025 Neutrophils (Bld) [#/Vol] 4.5 10*3/uL 2.0-7.[address] [facility] Activated partial thrombopla stin time (aPTT) in platelet poor plasma by coagulation aOrdered By: Maryanne Emanuel on 02-04-2025 aPTT Coag (PPP) [Time] 32.2 s 24.1-36.[address] [facility] Amorphous sediment detection in urine sediment by light microscopyOrdered By: Maryanne Emanuel on 02-04-2025 Amorphous sediment LM Ql (Urine sed) 1+ [facility] Anion gap in Serum or Plasma Ordered By: Maryanne Emanuel on 02-04-2025 Anion gap [Moles/Vol] 15 mmol/L 5-15 [facility] Automated lymphocyte count a s percentage of total leukocytesOrdered By: Maryanne Emanuel on 02-04-2025 Lymphocytes/100 WBC Auto (Unsp spec) 12.3 % Low 19-[address] [facility] BUN/creatinine ratioOrdered By: Maryanne Emanuel on 02-04-2025 Urea nitrogen/Creatinine [Mass ratio] 25.8 mg/mg High 10-[address] [facility] Basophil percentageOrdered B y: Maryanne Emanuel on 02-04-2025 Basophils/100 WBC (Bld) 0.2 % 0-[address] [facility] Bilirubin Test strip Ql (U)O rdered By: Maryanne Emanuel on 02-04-2025 Bilirubin Ql (U) Negative Negative [facility] Bilirubin, totalOrdered By: Maryanne Emanuel on 02-04-2025 Bilirubin [Mass/Vol] 0.66 mg/dL 0.00-1.30 [facility] Blood cultureOrdered By: Missy Emanuel on 02-04-2025 Bacteria identified Cx Nom (Bld) No growth in [address] [facility] Bacteria identified Cx Nom (Bld) No growth in [address] [facility] Blood manual differential co mment interpretation (narrative result)Ordered By: Maryanne Emanuel on 02-04-2025 Manual differential comment Tyrese (Bld) [Interp] SCANNED [facility] CBC W/Diff, Automatedon 01-13 PLT EST MOD DEC Normal ADEQ [facility] Comment on above: Performed By: #### M 200.1000, L501.4021, L300.4310, L100.0100, L503.6005, L300.3900, L501.5200, L500.4050 ####[facility] [address] [place], [place], [id number] SMEAR COMMENT SCANNED Normal [facility] Comment on above: Performed By: #### M 200.1000, L501.4021, L300.4310, L100.0100, L503.6005, L300.3900, L501.5200, L500.4050 ####[facility] [address] [place], [place], [id number] Platelet mean volume (Bld) [Entitic vol] 11.4 fL Normal 6.2-12.[address] [facility] Comment on above: Performed By: #### M 200.1000, L501.4021, L300.4310, L100.0100, L503.6005, L300.3900, L501.5200, L500.4050 ####[facility] [address] [place], [address] Platelets (Bld) [#/Vol] 82 10*3/uL Low 150-[address] [facility] Comment on above: Performed By: #### M 200.1000, L501.4021, L300.4310, L100.0100, L503.6005, L300.3900, L501.5200, L500.4050 ####[facility] [address] [place], [address] CO2 (BldV) [Moles/Vol]Ordere d By: Maryanne Emanuel on 02-04-2025 CO2 [Moles/Vol] 21 mmol/L Low 23-[address] [facility] CT Chest, Abd, Pelvis WO Con ton 02-04-2025 CT Chest, Abd, Pelvis WO Cont Normal [facility] Carbon dioxide, total [Moles /volume] in Central venous bloodOrdered By: Maryanne Emanuel on 02-04-2025 CO2 [Moles/Vol] 18.4 mmol/L Low 21.0-32.[address] [facility] Cardiology Visit Reporton Cardiology Visit Report Normal [facility] Chest 1 View (Portable)on Chest 1 View (Portable) Normal [facility] Chloride assayOrdered By: John Emanuel on 02-04-2025 Chloride [Moles/Vol] 92 mmol/L Low 98-108 [facility] Comprehensive Metabolic Prof ilon 02-04-2025 Albumin [Mass/Vol] 3.5 g/dL Normal 3.4-4.8 [facility] Comment on above: Performed By: #### M 200.1000, L501.4021, L300.4310, L100.0100, L503.6005, L300.3900, L501.5200, L500.4050 ####[facility] [address] [place], [address] Albumin/Globulin [Mass ratio] 1.5 {ratio} Normal 0.9-2.[address] [facility] Comment on above: Performed By: #### M 200.1000, L501.4021, L300.4310, L100.0100, L503.6005, L300.3900, L501.5200, L500.4050 ####[facility] [address] [place], [address] ALK PHOS 137 U/L High 40-[address] [facility] Comment on above: Performed By: #### M 200.1000, L501.4021, L300.4310, L100.0100, L503.6005, L300.3900, L501.5200, L500.4050 ####[facility] [address] [place], [address] ALT [Catalytic activity/Vol] 84 U/L High <=[address] [facility] Comment on above: Performed By: #### M 200.1000, L501.4021, L300.4310, L100.0100, L503.6005, L300.3900, L501.5200, L500.4050 ####[facility] [address] [place], [address] AST [Catalytic activity/Vol] 108 U/L High <=[address] [facility] Comment on above: Performed By: #### M 200.1000, L501.4021, L300.4310, L100.0100, L503.6005, L300.3900, L501.5200, L500.4050 ####[facility] [address] [place], [address] Bilirubin [Mass/Vol] 0.66 mg/dL Normal 0.00-1.30 [facility] Comment on above: Performed By: #### M 200.1000, L501.4021, L300.4310, L100.0100, L503.6005, L300.3900, L501.5200, L500.4050 ####[facility] [address] [place], [address] BUN/CRE 25.8 RATIO High 10-[address] [facility] Comment on above: Performed By: #### M 200.1000, L501.4021, L300.4310, L100.0100, L503.6005, L300.3900, L501.5200, L500.4050 ####[facility] [address] [place], [address] Calcium [Mass/Vol] 8.0 mg/dL Normal 7.6-11.0 [facility] Comment on above: Performed By: #### M 200.1000, L501.4021, L300.4310, L100.0100, L503.6005, L300.3900, L501.5200, L500.4050 ####[facility] [address] [place], [address] Chloride [Moles/Vol] 92 mmol/L Low 98-108 [facility] Comment on above: Performed By: #### M 200.1000, L501.4021, L300.4310, L100.0100, L503.6005, L300.3900, L501.5200, L500.4050 ####[facility] [address] [place], [address] CO2 [Moles/Vol] 18.4 mmol/L Low 21.0-32.[address] [facility] Comment on above: Performed By: #### M 200.1000, L501.4021, L300.4310, L100.0100, L503.6005, L300.3900, L501.5200, L500.4050 ####[facility] [address] [place], [address] Creatinine [Mass/Vol] 1.94 mg/dL High 0.70-1.20 [facility] Comment on above: Performed By: #### M 200.1000, L501.4021, L300.4310, L100.0100, L503.6005, L300.3900, L501.5200, L500.4050 ####[facility] [address] [place], [address] ECRCL 28.98 ml/min Low 50-[address] [facility] Comment on above: Performed By: #### M 200.1000, L501.4021, L300.4310, L100.0100, L503.6005, L300.3900, L501.5200, L500.4050 ####[facility] [address] [place], [address] GAP 15 Normal 5-[address] [facility] Comment on above: Performed By: #### M 200.1000, L501.4021, L300.4310, L100.0100, L503.6005, L300.3900, L501.5200, L500.4050 ####[facility] [address] [place], [address] GFR/1.73 sq M.predicted among non-blacks MDRD (S/P/Bld) [Vol rate/Area] 33 mL/min/{1.73_m2} Low >[address] [facility] Comment on above: Result Comment: mL/m in/1.73m2 CKD-EPI Creatinine Equation (2020) Performed By: #### M 200.1000, L501.4021, L300.4310, L100.0100, L503.6005, L300.3900, L501.5200, L500.4050 ####[facility] [address] [place], [address] Globulin (S) [Mass/Vol] 2.4 g/dL Normal 2.2-4.[address] [facility] Comment on above: Performed By: #### M 200.1000, L501.4021, L300.4310, L100.0100, L503.6005, L300.3900, L501.5200, L500.4050 ####[facility] [address] [place], [address] Glucose [Mass/Vol] 131 mg/dL High 70-99 [facility] Comment on above: Performed By: #### M 200.1000, L501.4021, L300.4310, L100.0100, L503.6005, L300.3900, L501.5200, L500.4050 ####[facility] [address] [place], [address] Potassium [Moles/Vol] 3.9 mmol/L Normal 3.3-5.1 [facility] Comment on above: Performed By: #### M 200.1000, L501.4021, L300.4310, L100.0100, L503.6005, L300.3900, L501.5200, L500.4050 ####[facility] [address] [place], [address] Sodium [Moles/Vol] 125 mmol/L Low 133-145 [facility] Comment on above: Performed By: #### M 200.1000, L501.4021, L300.4310, L100.0100, L503.6005, L300.3900, L501.5200, L500.4050 ####[facility] [address] [place], [address] T PROT 5.9 g/dL Normal 5.9-8.[address] [facility] Comment on above: Performed By: #### M 200.1000, L501.4021, L300.4310, L100.0100, L503.6005, L300.3900, L501.5200, L500.4050 ####[facility] [address] [place], [address] Urea nitrogen [Mass/Vol] 50 mg/dL High 4-[address] [facility] Comment on above: Performed By: #### M 200.1000, L501.4021, L300.4310, L100.0100, L503.6005, L300.3900, L501.5200, L500.4050 ####[facility] [address] [place], [address] Emergency Department Summary on 02-04-2025 Emergency Department Summary Normal [facility] Eosinophil percentageOrdered By: Maryanne Emanuel on 02-04-2025 Eosinophils/100 WBC (Bld) 0.0 % 0-[address] [facility] Erythrocyte distribution wid th ratioOrdered By: Maryanne Emanuel on 02-04-2025 Erythrocyte distribution width (RBC) [Ratio] 13.9 % 11.6-14.[address] [facility] Erythrocyte distribution wid th standard deviationOrdered By: Maryanne Emanuel on 02-04-2025 Erythrocyte distribution width (RBC) [Ratio] 43.8 fl 35.1-43.[address] [facility] Gallbladderon 02-04-2025 Gallbladder Normal [facility] Glomerular filtration rate ( GFR) estimation/1.73 sq m using serum, plasma, or whole bOrdered By: Maryanne Emanuel on 02-04-2025 GFR/1.73 sq M.predicted among non-blacks MDRD (S/P/Bld) [Vol rate/Area] 33 mL/min/{1.73_m2} Low >[address] [facility] Comment on above: mL/min/1.73m2 CKD-EP I Creatinine Equation (2020) H AND P Exam - Hospitaliston 02-04-2025 H&P Exam - Hospitalist Normal [facility] Hematocrit Auto (Bld) [Volum e fraction]Ordered By: Maryanne Emanuel on 02-04-2025 Hematocrit (Bld) [Volume fraction] 31.0 % Low 40-[address] [facility] Hemoglobin measurementOrdere d By: Maryanne Emanuel on 02-04-2025 Hemoglobin (Bld) [Mass/Vol] 10.6 g/dL Low 13.0-16.[address] [facility] Immature granulocytes/100 WB C Auto (Bld)Ordered By: Maryanne Emanuel on 02-04-2025 Immature granulocytes/100 WBC (Bld) 0.500 % 0.0-0.[address] [facility] Comment on above: IG% - Immature Granu locytes (promyelocytes, myelocytes and metamyelocytes) > 1% indicates that a LEFT SHIFT is Present. International normalized rat io (INR) calculationOrdered By: Maryanne Emanuel on 02-04-2025 INR Coag (Bld) [Relative time] 1.3 {INR} [facility] Ketones Test strip Ql (U)Ord ered By: Maryanne Emanuel on 02-04-2025 Ketones Ql (U) Negative Negative [facility] L499.0042on 02-04-2025 Trop T High Sen 111 ng/L Invalid Interpretation Code <=[address] [facility] Comment on above: Result Comment: Crit ical Result(s) Called MMARTIN at: 2036 by:ARANZA??Results read back by same. Performed By: #### L 499.0042 ####[facility] [address] [place], [address] L499.0043on 02-04-2025 Trop T High Sen 114 ng/L Invalid Interpretation Code <=[address] [facility] Comment on above: Result Comment: Crit ical Result(s) Called ESMART at: 3 by:ARANZA??Results read back by same. Performed By: #### L 499.0043 ####[facility] [address] [place], [address] L501.4021on 02-04-2025 Trop T High Sen 108 ng/L Invalid Interpretation Code <=[address] [facility] Comment on above: Result Comment: Crit ical Result(s) Called MMARTIN at: 2 by:ARANZA??Results read back by same. Performed By: #### M 200.1000, L501.4021, L300.4310, L100.0100, L503.6005, L300.3900, L501.5200, L500.4050 ####[facility] [address] [place], [place], [address] L503.7505on 02-04-2025 Natriuretic peptide B (Bld) [Mass/Vol] 29781 pg/mL High <=[address] [facility] Comment on above: Result Comment: Hear t Failure Unlikely: < 300 pg/mLHeart Failure Likely< 50 Years: > 450 pg/mL50-75 Years: > 900 pg/mL>75 Years: > 1800 pg/mL Performed By: #### L 503.7505 ####[facility] [address] [place], [place], [id number] Laboratory - Chemistry and C hemistry - challengeOrdered By: Maryanne Emanuel on 02-04-2025 AST [Catalytic activity/Vol] 108 U/L High <[address] [facility] Lactic Acidon 02-04-2025 Lactate [Moles/Vol] 1.3 mmol/L Normal 0.0-2.0 [facility] Comment on above: Order Comment: Y Performed By: #### M 200.1000, L501.4021, L300.4310, L100.0100, L503.6005, L300.3900, L501.5200, L500.4050 ####[facility] [address] [facility] [place], [place], [address] Lactic acid measurementOrder ed By: Maryanne Emanuel on 02-04-2025 Lactate [Moles/Vol] 1.3 mmol/L 0.0-2.0 [facility] MCV (mean corpuscular volume ) determinationOrdered By: Maryanne Emanuel on 02-04-2025 MCV (RBC) [Entitic vol] 85.4 fL 80-[address] [facility] Magnesiumon 02-04-2025 Magnesium [Mass/Vol] 2.1 mg/dL Normal 1.5-2.2 [facility] Comment on above: Performed By: #### M 200.1000, L501.4021, L300.4310, L100.0100, L503.6005, L300.3900, L501.5200, L500.4050 ####[facility] [address] [place], [address] Magnesium measurement (mass/ volume)Ordered By: Maryanne Emanuel on 02-04-2025 Magnesium (Unsp spec) [Mass/Vol] 2.1 mg/dL 1.5-2.[address] [facility] Mean corpuscular hemoglobin (MCH) determinationOrdered By: Maryanne Emanuel on 02-04-2025 MCH (RBC) [Entitic mass] 29.2 pg 27.0-32.[address] [facility] Mean corpuscular hemoglobin concentration (MCHC) determinationOrdered By: Maryanne Emanuel on 02-04-2025 MCHC (RBC) [Mass/Vol] 34.2 g/dL 32-36 [facility] Mean platelet volume determi nationOrdered By: Maryanne Emanuel on 02-04-2025 Platelet mean volume (Bld) [Entitic vol] 11.4 fL 6.2-12.[address] [facility] Microscopic analysis of urin e for red blood cells (RBC)Ordered By: Maryanne Emanuel on 02-04-2025 Microscopic analysis of urine for red blood cells (RBC) 0-5 SEEN /hpf 0-[address] [facility] Monocyte percentageOrdered B y: Maryanne Emanuel on 02-04-2025 Monocytes/100 WBC (Bld) 7.4 % 0-[address] [facility] Mucus LM Ql (Urine sed)Order ed By: Maryanne Emanuel on 02-04-2025 Mucus Ql (Urine sed) 0 SEEN /hpf [facility] Natriuretic peptide.B prohor alirio N-Terminal [Mass/volume] in Serum or PlasmaOrdered By: Maryanne Emanuel on 02-04-2025 Natriuretic peptide.B prohormone N-Terminal [Mass/Vol] 18272 pg/mL High <[address] [facility] Comment on above: Heart Failure Unlike ly: < 300 pg/mLHeart Failure Likely< 50 Years: > 450 pg/mL50-75 Years: > 900 pg/mL>75 Years: > 1800 pg/mL Neutrophil percentageOrdered By: Maryanne Emanuel on 02-04-2025 Neutrophils/100 WBC (Bld) 79.6 % High 47-[address] [facility] Nitrite Test strip Ql (U)Ord ered By: Maryanne Emanuel on 02-04-2025 Nitrite Ql (U) Negative Negative [facility] No Panel InformationOrdered By: Maryanne Emanuel on 02-04-2025 Blood Gas Sample Site Not entered [facility] Blood Gas Specimen Type HEIDI [facility] Oxygen Delivery Device Room Air [facility] Nucleated red blood cell per centageOrdered By: Maryanne Emanuel on 02-04-2025 Nucleated RBC/100 WBC (Bld) [Ratio] 0 % 0-[address] [facility] Partial Thromboplast Timeon 02-04-2025 aPTT Coag (Bld) [Time] 32.2 s Normal 24.1-36.[address] [facility] Comment on above: Performed By: #### M 200.1000, L501.4021, L300.4310, L100.0100, L503.6005, L300.3900, L501.5200, L500.4050 ####[facility] [address] [place], [address] Platelet countOrdered By: John Emanuel on 02-04-2025 Platelets (Bld) [#/Vol] 82 10*3/uL Low 150-[address] [facility] Platelet estimateOrdered By: Maryanne Emanuel on 02-04-2025 Platelets LM Ql (Bld) MOD DEC ADEQ [facility] Potassium measurement (mass/ volume)Ordered By: Maryanne Emanuel on 02-04-2025 Potassium (Unsp spec) [Mass/Vol] 3.9 mmol/L 3.3-5.[address] [facility] Procalcitonin [Mass/volume] in Serum or Plasma by ImmunoassayOrdered By: Rea Cancino on 02-04-2025 Procalcitonin IA [Mass/Vol] 1.39 ng/mL High <0.[address] [facility] Comment on above: Interpretation:<0.10 -0.25 ng/mL: Antibiotic therapy discouraged. Bacterial infection unlikely.0.25-0.50 ng/mL: Antibiotic therapy encouraged. Bacterial infection possible.>0.50 ng/mL: Antibiotic therapy strongly encouraged. Suggestive of presence of bacterial infection.PCT should always be interpreted in the clinical context of the patient. Therefore, clinicians should use the PCT results in conjunction with other laboratory findings and clinical signs of the patient. Protein Test strip Ql (U)Ord ered By: Maryanne Emanuel on 02-04-2025 Protein Ql (U) 30 mg/dl High Negative [facility] Prothrombin Time w/INRon INR Normal [facility] Comment on above: Result Comment: NICOLETTE MCKINNEY RN Performed By: #### L 300.3900 ####[facility] [address] [place], [address] PROTIME Normal 11.7-14.[address] [facility] Comment on above: Result Comment: NICOLETTE MCKINNEY RN Performed By: #### L 300.3900 ####[facility] [address] [place], [address] INR Coag (PPP) [Relative time] 1.3 {INR} Normal [facility] Comment on above: Performed By: #### M 200.1000, L501.4021, L300.4310, L100.0100, L503.6005, L300.3900, L501.5200, L500.4050 ####[facility] [address] [place], [address] PT Coag (PPP) [Time] 16.0 s High 11.7-14.9 [facility] Comment on above: Performed By: #### M 200.1000, L501.4021, L300.4310, L100.0100, L503.6005, L300.3900, L501.5200, L500.4050 ####[facility] [address] [place], [address] Prothrombin timeOrdered By: Maryanne Emanuel on 02-04-2025 PT Coag (PPP) [Time] 16.0 s High 11.7-14.9 [facility] RBC Auto (Bld) [#/Vol]Ordere d By: Maryanne Emanuel on 02-04-2025 RBC (Bld) [#/Vol] 3.63 10*6/uL Low 4.6-6.2 [facility] Serum creatinine measurement (mass/volume)Ordered By: Maryanne Emanuel on 02-04-2025 Creatinine [Mass/Vol] 1.94 mg/dL High 0.70-1.20 [facility] Serum globulin measurementOr dered By: Maryanne Emanuel on 02-04-2025 Globulin (S) [Mass/Vol] 2.4 g/dL 2.2-4.[address] [facility] Serum glucose measurement (m ass/volume)Ordered By: Maryanne Emanuel on 02-04-2025 Glucose [Mass/Vol] 131 mg/dL High 70-99 [facility] Serum or plasma alanine holm otransferase (ALT) measurementOrdered By: Maryanne Emanuel on 02-04-2025 ALT [Catalytic activity/Vol] 84 U/L High <[address] [facility] Serum or plasma albumin kelli urement (mass/volume)Ordered By: Maryanne Emanuel on 02-04-2025 Albumin [Mass/Vol] 3.5 g/dL 3.4-4.8 [facility] Serum or plasma albumin/glob ulin mass ratioOrdered By: Maryanne Emanuel on 02-04-2025 Albumin/Globulin [Mass ratio] 1.5 {ratio} 0.9-2.[address] [facility] Serum or plasma alkaline karen sphatase measurementOrdered By: Maryanne Emanuel on 02-04-2025 ALP [Catalytic activity/Vol] 137 U/L High 40-[address] [facility] Serum or plasma calcium kelli urement (mass/volume)Ordered By: Maryanne Emanuel on 02-04-2025 Calcium [Mass/Vol] 8.0 mg/dL 7.6-11.0 [facility] Serum or plasma urea nitroge n measurement (mass/volume)Ordered By: Maryanne Emanuel on 02-04-2025 Urea nitrogen [Mass/Vol] 50 mg/dL High 4-[address] [facility] Sodium levelOrdered By: Oliva Emanuel on 02-04-2025 Sodium [Moles/Vol] 125 mmol/L Low 133-145 [facility] Squamous epithelial cells de tection in urine sediment by light microscopyOrdered By: Maryanne Emanuel on 02-04-2025 Epithelial cells.squamous LM Ql (Urine sed) 0-5 SEEN /hpf 0-[address] [facility] Total proteinOrdered By: Missy Emanuel on 02-04-2025 Protein [Mass/Vol] 5.9 g/dL 5.9-8.4 [facility] Troponin T.cardiac [Mass/vol ume] in Serum or Plasma by High sensitivity methodOrdered By: Maryanne Emanuel on 02-04-2025 Troponin T.cardiac High sensitivity method [Mass/Vol] 114 ng/L Critically high <[address] [facility] Comment on above: Critical Result(s) C alled ESMART at: 2232 by: ARANZA Results read back by same. Troponin T.cardiac High sensitivity method [Mass/Vol] 111 ng/L Critically high <[address] [facility] Comment on above: Critical Result(s) C alled MMARTIN at: 2036 by: ARANZA Results read back by same. Troponin T.cardiac High sensitivity method [Mass/Vol] 108 ng/L Critically high <[address] [facility] Comment on above: Critical Result(s) C alled MMARTIN at: 1931 by: ARANZA Results read back by same. Urinalysis, Completeon 02-04 AMORPHOUS 1+ Normal [facility] Comment on above: Order Comment: KERI CTOR TO SPECIFY Performed By: #### L 400.0001, ####[facility] [address] [place], [place], [address] BACTERIA 2+ /hpf Normal None Seen [facility] Comment on above: Order Comment: KERI CTOR TO SPECIFY Performed By: #### L 400.0001, ####[facility] [address] [place], [address] EPI,RENAL 0-5 SEEN Normal 0-[address] [facility] Comment on above: Order Comment: KERI CTOR TO SPECIFY Performed By: #### L 400.0001, ####[facility] [address] [place], [address] EPI,SQUAMOUS 0-5 SEEN Normal 0-[address] [facility] Comment on above: Order Comment: COLLE CTOR TO SPECIFY Performed By: #### L 400.0001, M100.2200 ####[facility] [address] [place], [address] RBC 0-5 SEEN Normal 0-[address] [facility] Comment on above: Order Comment: COLLE CTOR TO SPECIFY Performed By: #### L 400.0001, M100.2200 ####[facility] [address] [place], [address] Mucus Ql (Urine sed) 0 SEEN Normal [facility] Comment on above: Order Comment: [facility] CTOR TO SPECIFY Performed By: #### L 400.0001, M100.2200 ####[facility] [address] [place], [address] WBC 0 SEEN Normal 0-[address] [facility] Comment on above: Order Comment: [facility] CTOR TO SPECIFY Performed By: #### L 400.0001, M100.2200 ####[facility] [address] [place], [address] Urine clarityOrdered By: Missy Emanuel on 02-04-2025 Clarity (U) Sl. Cloudy Clear [facility] Urine color determinationOrd ered By: Maryanne Emanuel on 02-04-2025 Color (U) Yellow Yellow [facility] Urine cultureOrdered By: Missy Emanuel on 02-04-2025 Bacteria identified Cx Nom (U) Culture exhibits no growth. [facility] Urine glucose detectionOrder ed By: Maryanne Emanuel on 02-04-2025 Glucose Ql (U) Normal mg/dl Normal [facility] Urine leukocyte esterase det ection by dipstickOrdered By: Maryanne Emanuel on 02-04-2025 Leukocyte esterase Test strip Ql (U) Negative Negative [facility] Urine pHOrdered By: Maryanne zhao on 02-04-2025 pH (U) 5.0 [pH] 5.0 - 8.[address] [facility] Urine sediment bacteria coun t by microscopy (number/high power field)Ordered By: Maryanne Emanuel on 02-04-2025 Bacteria LM.HPF (Urine sed) [#/Area] 2 /[HPF] None Seen [facility] Urine sediment renal epithel ial cell count by microscopy (number/high power field)Ordered By: Maryanne Emanuel on 02-04-2025 Epithelial cells.renal LM.HPF (Urine sed) [#/Area] 0 /[HPF] 0-[address] [facility] Urine specific gravity measu rementOrdered By: Maryanne Emanuel on 02-04-2025 Specific gravity (U) [Rel density] 1.020 1.002-1.[address] [facility] Urine urobilinogen measureme ntOrdered By: Maryanne Emanuel on 02-04-2025 Urobilinogen Ql (U) Normal mg/dl Normal [facility] Venous Blood Gason 5 Blood Gas Type HEIDI Normal [facility] Comment on above: Performed By: #### L 9000.0810 ####[facility] [address] [place], [place], [id number] CO2 [Moles/Vol] 21 mmol/L Low 23-[address] [facility] Comment on above: Performed By: #### L 9000.0810 ####[facility] [address] [place], [place], [address] HCO3 (Bld) [Moles/Vol] 20 mmol/L Low 22-[address] [facility] Comment on above: Performed By: #### L 9000.0810 ####[facility] [address] [place], [place], [address] O2 Delivery Dev Room Air Normal [facility] Comment on above: Performed By: #### L 9000.0810 ####[facility] [address] [place], [address] SITE Not entered Normal [facility] Comment on above: Performed By: #### L 9000.0810 ####[facility] [address] [place], [place], [address] VBG BE -4 mmol/L Low -1.0-3.[address] [facility] Comment on above: Performed By: #### L 9000.0810 ####[facility] [address] [place], [place], [id number] VBG pCO2 27.3 mmHg Low 41-[address] [facility] Comment on above: Performed By: #### L 9000.0810 ####[facility] [address] [place], [address] VBG pH 7.47 High 7.32-7.[address] [facility] Comment on above: Performed By: #### L 9000.0810 ####[facility] [address] [place], [address] VBG PO2 37 mmHg Normal 25-[address] [facility] Comment on above: Performed By: #### L 9000.0810 ####[facility] [address] [place], [address] VBG SO2 76 High 50-[address] [facility] Comment on above: Performed By: #### L 9000.0810 ####[facility] [address] [place], [address] Venous blood base excess irwin surementOrdered By: Maryanne Emanuel on 02-04-2025 Base excess Calc (BldV) [Moles/Vol] -4 mmol/L Low -1.0-3.[address] [facility] Venous blood bicarbonate irwin surementOrdered By: Maryanne Emanuel on 02-04-2025 HCO3 (Bld) [Moles/Vol] 20 mmol/L Low 22-[address] [facility] Venous blood oxygen saturati on measurementOrdered By: Maryanne Emanuel on 02-04-2025 Oxygen saturation in Blood 76 % High 50-[address] [facility] Venous blood pH measurementO rdered By: Maryanne Emanuel on 02-04-2025 pH (BldV) 7.47 [pH] High 7.32-7.[address] [facility] Venous blood partial pressur e of carbon dioxide measurementOrdered By: Maryanne Emanuel on 02-04-2025 CO2 (BldV) [Partial pressure] 27.3 mm[Hg] Low 41-[address] [facility] Venous blood partial pressur e of oxygen measurementOrdered By: Maryanne Emanuel on 02-04-2025 Oxygen (BldV) [Partial pressure] 37 mm[Hg] 25-[address] [facility] White blood cell (WBC) count Ordered By: Maryanne Emanuel on 02-04-2025 WBC (Bld) [#/Vol] 5.7 10*3/uL 4.4-11.0 [facility] White blood cell countOrdere d By: Maryanne Emanuel on 02-04-2025 White blood cell count 0 SEEN /hpf 0-[address] [facility] Cardiology Visit Reporton Cardiology Visit Report Normal [facility] Basic Metabolic Profile (BMP )on 12-15-2024 BUN Normal 4-[address] [facility] Comment on above: Result Comment: Canc elled via OM: Order cancelled - Patient discharged Performed By: #### L 500.2500, L100.0100 ####[facility] [address] [place], [address] BUN/CRE Normal 10-[address] [facility] Comment on above: Result Comment: Canc elled via OM: Order cancelled - Patient discharged Performed By: #### L 500.2500, L100.0100 ####[facility] [address] [place], [address] Calcium Normal 7.6-11.[address] [facility] Comment on above: Result Comment: Canc elled via OM: Order cancelled - Patient discharged Performed By: #### L 500.2500, L100.0100 ####[facility] [address] [place], [address] CL Normal 98-[address] [facility] Comment on above: Result Comment: Canc elled via OM: Order cancelled - Patient discharged Performed By: #### L 500.2500, L100.0100 ####[facility] [address] [place], [address] CO2 Normal 21.0-32.[address] [facility] Comment on above: Result Comment: Canc elled via OM: Order cancelled - Patient discharged Performed By: #### L 500.2500, L100.0100 ####[facility] [address] [place], [address] CREAT,SERUM Normal 0.70-1.[address] [facility] Comment on above: Result Comment: Canc elled via OM: Order cancelled - Patient discharged Performed By: #### L 500.2500, L100.0100 ####[facility] [address] [place], [address] eGFR Normal >[address] [facility] Comment on above: Result Comment: Canc elled via OM: Order cancelled - Patient discharged Performed By: #### L 500.2500, L100.0100 ####[facility] [address] [place], [address] GAP Normal 5-[address] [facility] Comment on above: Result Comment: Canc elled via OM: Order cancelled - Patient discharged Performed By: #### L 500.2500, L100.0100 ####[facility] [address] [place], [address] GLU Normal 70-[address] [facility] Comment on above: Result Comment: Canc elled via OM: Order cancelled - Patient discharged Performed By: #### L 500.2500, L100.0100 ####[facility] [address] [place], [address] Potassium Normal 3.3-5.[address] [facility] Comment on above: Result Comment: Canc elled via OM: Order cancelled - Patient discharged Performed By: #### L 500.2500, L100.0100 ####[facility] [address] [place], [address] Basic Metabolic Profile (BMP) Normal 133-[address] [facility] Comment on above: Result Comment: Canc elled via OM: Order cancelled - Patient discharged Performed By: #### L 500.2500, L100.0100 ####[facility] [address] [place], [address] CBC W/Diff, Automatedon 05-0 -2024 Absolute Neut Normal 2.0-7.[address] [facility] Comment on above: Result Comment: Canc elled via OM: Order cancelled - Patient discharged Performed By: #### L 500.2500, L100.0100 ####[facility] [address] [place], [address] HCT Normal 40-[address] [facility] Comment on above: Result Comment: Canc elled via OM: Order cancelled - Patient discharged Performed By: #### L 500.2500, L100.0100 ####[facility] [address] [place], [address] HGB Normal 13.0-16.[address] [facility] Comment on above: Result Comment: Canc elled via OM: Order cancelled - Patient discharged Performed By: #### L 500.2500, L100.0100 ####[facility] [address] [place], [address] MCH Normal 27.0-32.[address] [facility] Comment on above: Result Comment: Canc elled via OM: Order cancelled - Patient discharged Performed By: #### L 500.2500, L100.0100 ####[facility] [address] [place], [address] MCHC Normal 32-[address] [facility] Comment on above: Result Comment: Canc elled via OM: Order cancelled - Patient discharged Performed By: #### L 500.2500, L100.0100 ####[facility] [address] [place], [address] MCV Normal 80-[address] [facility] Comment on above: Result Comment: Canc elled via OM: Order cancelled - Patient discharged Performed By: #### L 500.2500, L100.0100 ####[facility] [address] [place], [address] NEUT% Normal 47-[address] [facility] Comment on above: Result Comment: Canc elled via OM: Order cancelled - Patient discharged Performed By: #### L 500.2500, L100.0100 ####[facility] [address] [place], [address] PLT Normal 150-[address] [facility] Comment on above: Result Comment: Canc elled via OM: Order cancelled - Patient discharged Performed By: #### L 500.2500, L100.0100 ####[facility] [address] [place], [address] RBC Normal 4.6-6.[address] [facility] Comment on above: Result Comment: Canc elled via OM: Order cancelled - Patient discharged Performed By: #### L 500.2500, L100.0100 ####[facility] [address] [place], [address] RDW CV Normal 11.6-14.[address] [facility] Comment on above: Result Comment: Canc elled via OM: Order cancelled - Patient discharged Performed By: #### L 500.2500, L100.0100 ####[facility] [address] [place], [address] RDW SD Normal 35.1-43.[address] [facility] Comment on above: Result Comment: Canc elled via OM: Order cancelled - Patient discharged Performed By: #### L 500.2500, L100.0100 ####[facility] [address] [place], [address] WBC Normal 4.4-11.[address] [facility] Comment on above: Result Comment: Canc elled via OM: Order cancelled - Patient discharged Performed By: #### L 500.2500, L100.0100 ####[facility] [address] [place], [address] Basic Metabolic Profile (BMP )on 12-14-2024 BUN Normal 4-[address] [facility] Comment on above: Result Comment: Canc elled via OM: Order cancelled - Patient discharged Performed By: #### L 100.0100, L500.2500 ####[facility] [address] [place], [address] BUN/CRE Normal 10-[address] [facility] Comment on above: Result Comment: Canc elled via OM: Order cancelled - Patient discharged Performed By: #### L 100.0100, L500.2500 ####[facility] [address] [place], [address] Calcium Normal 7.6-11.[address] [facility] Comment on above: Result Comment: Canc elled via OM: Order cancelled - Patient discharged Performed By: #### L 100.0100, L500.2500 ####[facility] [address] [place], [address] CL Normal 98-[address] [facility] Comment on above: Result Comment: Canc elled via OM: Order cancelled - Patient discharged Performed By: #### L 100.0100, L500.2500 ####[facility] [address] [place], [address] CO2 Normal 21.0-32.[address] [facility] Comment on above: Result Comment: Canc elled via OM: Order cancelled - Patient discharged Performed By: #### L 100.0100, L500.2500 ####[facility] [address] [place], [address] CREAT,SERUM Normal 0.70-1.[address] [facility] Comment on above: Result Comment: Canc elled via OM: Order cancelled - Patient discharged Performed By: #### L 100.0100, L500.2500 ####[facility] [address] [place], [address] eGFR Normal >[address] [facility] Comment on above: Result Comment: Canc elled via OM: Order cancelled - Patient discharged Performed By: #### L 100.0100, L500.2500 ####[facility] [address] [place], [address] GAP Normal 5-[address] [facility] Comment on above: Result Comment: Canc elled via OM: Order cancelled - Patient discharged Performed By: #### L 100.0100, L500.2500 ####[facility] [address] [place], [address] GLU Normal 70-[address] [facility] Comment on above: Result Comment: Canc elled via OM: Order cancelled - Patient discharged Performed By: #### L 100.0100, L500.2500 ####[facility] [address] [place], [address] Potassium Normal 3.3-5.[address] [facility] Comment on above: Result Comment: Canc elled via OM: Order cancelled - Patient discharged Performed By: #### L 100.0100, L500.2500 ####[facility] [address] [place], [address] Basic Metabolic Profile (BMP) Normal 133-[address] [facility] Comment on above: Result Comment: Canc elled via OM: Order cancelled - Patient discharged Performed By: #### L 100.0100, L500.2500 ####[facility] [address] [place], [address] CBC W/Diff, Automatedon 05-0 -2024 Absolute Neut Normal 2.0-7.[address] [facility] Comment on above: Result Comment: Canc elled via OM: Order cancelled - Patient discharged Performed By: #### L 100.0100, L500.2500 ####[facility] [address] [place], [address] HCT Normal 40-[address] [facility] Comment on above: Result Comment: Canc elled via OM: Order cancelled - Patient discharged Performed By: #### L 100.0100, L500.2500 ####[facility] [address] [place], [address] HGB Normal 13.0-16.[address] [facility] Comment on above: Result Comment: Canc elled via OM: Order cancelled - Patient discharged Performed By: #### L 100.0100, L500.2500 ####[facility] [address] [place], [address] MCH Normal 27.0-32.[address] [facility] Comment on above: Result Comment: Canc elled via OM: Order cancelled - Patient discharged Performed By: #### L 100.0100, L500.2500 ####[facility] [address] [place], [address] MCHC Normal 32-[address] [facility] Comment on above: Result Comment: Canc elled via OM: Order cancelled - Patient discharged Performed By: #### L 100.0100, L500.2500 ####[facility] [address] [place], [address] MCV Normal 80-[address] [facility] Comment on above: Result Comment: Canc elled via OM: Order cancelled - Patient discharged Performed By: #### L 100.0100, L500.2500 ####[facility] [address] [place], [address] NEUT% Normal 47-[address] [facility] Comment on above: Result Comment: Canc elled via OM: Order cancelled - Patient discharged Performed By: #### L 100.0100, L500.2500 ####[facility] [address] [place], [address] PLT Normal 150-[address] [facility] Comment on above: Result Comment: Canc elled via OM: Order cancelled - Patient discharged Performed By: #### L 100.0100, L500.2500 ####[facility] [address] [place], [address] RBC Normal 4.6-6.[address] [facility] Comment on above: Result Comment: Canc elled via OM: Order cancelled - Patient discharged Performed By: #### L 100.0100, L500.2500 ####[facility] [address] [place], [address] RDW CV Normal 11.6-14.[address] [facility] Comment on above: Result Comment: Canc elled via OM: Order cancelled - Patient discharged Performed By: #### L 100.0100, L500.2500 ####[facility] [address] [place], [address] RDW SD Normal 35.1-43.[address] [facility] Comment on above: Result Comment: Canc elled via OM: Order cancelled - Patient discharged Performed By: #### L 100.0100, L500.2500 ####[facility] [address] [place], [address] WBC Normal 4.4-11.[address] [facility] Comment on above: Result Comment: Canc elled via OM: Order cancelled - Patient discharged Performed By: #### L 100.0100, L500.2500 ####[facility] [address] [place], [address] Absolute lymphocyte countOrd ered By: Gaurang Cortes on 12-13-2024 Lymphocytes Auto (Unsp spec) [#/Vol] 2.14 10*3/uL 0.83-4.[address] [facility] Absolute neutrophil countOrd ered By: Gaurang Cortes on 12-13-2024 Neutrophils (Bld) [#/Vol] 2.8 10*3/uL 2.0-7.[address] [facility] Anion gap in Serum or Plasma Ordered By: Gaurang Cortes on 12-13-2024 Anion gap [Moles/Vol] 11 mmol/L 5-15 [facility] Automated lymphocyte count a s percentage of total leukocytesOrdered By: Gaurang Cortes on 12-13-2024 Lymphocytes/100 WBC Auto (Unsp spec) 36.5 % - [facility] BUN/creatinine ratioOrdered By: Gaurang Cortes on 12-13-2024 Urea nitrogen/Creatinine [Mass ratio] 32.6 mg/mg High 10- [facility] Basic Metabolic Profile (BMP )on 12-13-2024 BUN/CRE 32.6 RATIO High 10- [facility] Comment on above: Performed By: #### L 100.0100, L500.2500, L501.5200, L501.2300 ####[facility] [address] [place], [address] Calcium [Mass/Vol] 9.1 mg/dL Normal 7.6-11.0 [facility] Comment on above: Performed By: #### L 100.0100, L500.2500, L501.5200, L501.2300 ####[facility] [address] [place], [address] Chloride [Moles/Vol] 101 mmol/L Normal 98-108 [facility] Comment on above: Performed By: #### L 100.0100, L500.2500, L501.5200, L501.2300 ####[facility] [address] [place], [address] CO2 [Moles/Vol] 24.2 mmol/L Normal 21.0-32.[address] [facility] Comment on above: Performed By: #### L 100.0100, L500.2500, L501.5200, L501.2300 ####[facility] [address] [place], [address] Creatinine [Mass/Vol] 1.56 mg/dL High 0.70-1.20 [facility] Comment on above: Performed By: #### L 100.0100, L500.2500, L501.5200, L501.2300 ####[facility] [address] [place], [address] ECRCL 35.16 ml/min Low 50-[address] [facility] Comment on above: Performed By: #### L 100.0100, L500.2500, L501.5200, L501.2300 ####[facility] [address] [place], [address] GAP 11 Normal 5-[address] [facility] Comment on above: Performed By: #### L 100.0100, L500.2500, L501.5200, L501.2300 ####[facility] [address] [place], [address] GFR/1.73 sq M.predicted among non-blacks MDRD (S/P/Bld) [Vol rate/Area] 44 mL/min/{1.73_m2} Low >[address] [facility] Comment on above: Result Comment: mL/m in/1.73m2 CKD-EPI Creatinine Equation (2020) Performed By: #### L 100.0100, L500.2500, L501.5200, L501.2300 ####[facility] [address] [place], [address] Glucose [Mass/Vol] 100 mg/dL High 70-99 [facility] Comment on above: Performed By: #### L 100.0100, L500.2500, L501.5200, L501.2300 ####[facility] [address] [place], [address] Potassium [Moles/Vol] 4.3 mmol/L Normal 3.3-5.1 [facility] Comment on above: Performed By: #### L 100.0100, L500.2500, L501.5200, L501.2300 ####[facility] [address] [place], [address] Sodium [Moles/Vol] 137 mmol/L Normal 133-145 [facility] Comment on above: Performed By: #### L 100.0100, L500.2500, L501.5200, L501.2300 ####[facility] [address] [place], [address] Urea nitrogen [Mass/Vol] 51 mg/dL High 4-[address] [facility] Comment on above: Performed By: #### L 100.0100, L500.2500, L501.5200, L501.2300 ####[facility] [address] [place], [address] Basophil percentageOrdered B y: Gaurang Cortes on 12-13-2024 Basophils/100 WBC (Bld) 0.5 % 0-[address] [facility] CBC W/Diff, Automatedon 05-0 Absolute Lymph 2.14 X10 3/uL Normal 0.83-4.[address] [facility] Comment on above: Performed By: #### L 100.0100, L500.2500, L501.5200, L501.2300 ####[facility] [address] [place], [address] Absolute Neut 2.8 X10 3/uL Normal 2.0-7.[address] [facility] Comment on above: Performed By: #### L 100.0100, L500.2500, L501.5200, L501.2300 ####[facility] [address] [place], [address] Basophils/100 WBC (Bld) 0.5 % Normal 0-[address] [facility] Comment on above: Performed By: #### L 100.0100, L500.2500, L501.5200, L501.2300 ####[facility] [address] [place], [address] Eosinophils/100 WBC (Bld) 4.9 % Normal 0-[address] [facility] Comment on above: Performed By: #### L 100.0100, L500.2500, L501.5200, L501.2300 ####[facility] [address] [place], [address] Erythrocyte distribution width (RBC) [Ratio] 14.9 % High 11.6-14.[address] [facility] Comment on above: Performed By: #### L 100.0100, L500.2500, L501.5200, L501.2300 ####[facility] [address] [place], [address] Hematocrit (Bld) [Volume fraction] 32.2 % Low 40-[address] [facility] Comment on above: Performed By: #### L 100.0100, L500.2500, L501.5200, L501.2300 ####[facility] [address] [place], [address] Hemoglobin (Bld) [Mass/Vol] 10.8 g/dL Low 13.0-16.[address] [facility] Comment on above: Performed By: #### L 100.0100, L500.2500, L501.5200, L501.2300 ####[facility] [address] [place], [address] IG% 0.200 Normal 0.0-0.[address] [facility] Comment on above: Result Comment: IG% - Immature Granulocytes (promyelocytes, myelocytes andmetamyelocytes) > 1% indicates that a LEFT SHIFT is Present. Performed By: #### L 100.0100, L500.2500, L501.5200, L501.2300 ####[facility] [address] [place], [address] Lymphocytes/100 WBC (Bld) 36.5 % Normal 19-[address] [facility] Comment on above: Performed By: #### L 100.0100, L500.2500, L501.5200, L501.2300 ####[facility] [address] [place], [address] MCH (RBC) [Entitic mass] 30.0 pg Normal 27.0-32.[address] [facility] Comment on above: Performed By: #### L 100.0100, L500.2500, L501.5200, L501.2300 ####[facility] [address] [place], [address] MCHC (RBC) [Mass/Vol] 33.5 g/dL Normal 32-36 [facility] Comment on above: Performed By: #### L 100.0100, L500.2500, L501.5200, L501.2300 ####[facility] [address] [place], [address] MCV (RBC) [Entitic vol] 89.4 fL Normal 80-[address] [facility] Comment on above: Performed By: #### L 100.0100, L500.2500, L501.5200, L501.2300 ####[facility] [address] [place], [address] Monocytes/100 WBC (Bld) 10.9 % High 0-[address] [facility] Comment on above: Performed By: #### L 100.0100, L500.2500, L501.5200, L501.2300 ####[facility] [address] [place], [address] Neutrophils/100 WBC (Bld) 47.0 % Normal 47-[address] [facility] Comment on above: Performed By: #### L 100.0100, L500.2500, L501.5200, L501.2300 ####[facility] [address] [place], [address] Nucleated RBC (Bld) [#/Vol] 0 10*3/uL Normal 0-[address] [facility] Comment on above: Performed By: #### L 100.0100, L500.2500, L501.5200, L501.2300 ####[facility] [address] [place], [address] Platelet mean volume (Bld) [Entitic vol] 10.7 fL Normal 6.2-12.[address] [facility] Comment on above: Performed By: #### L 100.0100, L500.2500, L501.5200, L501.2300 ####[facility] [address] [place], [address] Platelets (Bld) [#/Vol] 157 10*3/uL Normal 150-[address] [facility] Comment on above: Performed By: #### L 100.0100, L500.2500, L501.5200, L501.2300 ####[facility] [address] [place], [address] RBC (Bld) [#/Vol] 3.60 10*6/uL Low 4.6-6.2 [facility] Comment on above: Performed By: #### L 100.0100, L500.2500, L501.5200, L501.2300 ####[facility] [address] [place], [address] RDW SD 49.4 fl High 35.1-43.[address] [facility] Comment on above: Performed By: #### L 100.0100, L500.2500, L501.5200, L501.2300 ####[facility] [address] [place], [address] WBC (Bld) [#/Vol] 5.9 10*3/uL Normal 4.4-11.0 [facility] Comment on above: Performed By: #### L 100.0100, L500.2500, L501.5200, L501.2300 ####[facility] [address] [place], [address] Carbon dioxide, total [Moles /volume] in Central venous bloodOrdered By: Gaurang Cortes on 12-13-2024 CO2 [Moles/Vol] 24.2 mmol/L 21.0-32.[address] [facility] Chloride assayOrdered By: Vic Cortes on 12-13-2024 Chloride [Moles/Vol] 101 mmol/L 98-108 [facility] Eosinophil percentageOrdered By: Gaurang Cortes on 12-13-2024 Eosinophils/100 WBC (Bld) 4.9 % 0-[address] [facility] Erythrocyte distribution wid th ratioOrdered By: Gaurang Cortes on 12-13-2024 Erythrocyte distribution width (RBC) [Ratio] 14.9 % High 11.6-14.[address] [facility] Erythrocyte distribution wid th standard deviationOrdered By: Gaurang Cortes on 12-13-2024 Erythrocyte distribution width (RBC) [Ratio] 49.4 fl High 35.1-43.[address] [facility] Glomerular filtration rate ( GFR) estimation/1.73 sq m using serum, plasma, or whole bOrdered By: Gaurang Cortes on 12-13-2024 GFR/1.73 sq M.predicted among non-blacks MDRD (S/P/Bld) [Vol rate/Area] 44 mL/min/{1.73_m2} Low >[address] [facility] Comment on above: mL/min/1.73m2 CKD-EP I Creatinine Equation (2020) Hematocrit Auto (Bld) [Volum e fraction]Ordered By: Gaurang Cortes on 12-13-2024 Hematocrit (Bld) [Volume fraction] 32.2 % Low 40-[address] [facility] Hemoglobin measurementOrdere d By: Gaurang Cortes on 12-13-2024 Hemoglobin (Bld) [Mass/Vol] 10.8 g/dL Low 13.0-16.[address] [facility] Immature granulocytes/100 WB C Auto (Bld)Ordered By: Gaurang Cortes on 12-13-2024 Immature granulocytes/100 WBC (Bld) 0.200 % 0.0-0.[address] [facility] Comment on above: IG% - Immature Granu locytes (promyelocytes, myelocytes and metamyelocytes) > 1% indicates that a LEFT SHIFT is Present. MCV (mean corpuscular volume ) determinationOrdered By: Gaurang Cortes on 12-13-2024 MCV (RBC) [Entitic vol] 89.4 fL 80-[address] [facility] Magnesiumon 12-13-2024 Magnesium [Mass/Vol] 2.5 mg/dL High 1.5-2.2 [facility] Comment on above: Performed By: #### L 100.0100, L500.2500, L501.5200, L501.2300 ####[facility] [address], [place], [address] Magnesium measurement (mass/ volume)Ordered By: Gaurang Cortes on 12-13-2024 Magnesium (Unsp spec) [Mass/Vol] 2.5 mg/dL High 1.5-2.[address] [facility] Mean corpuscular hemoglobin (MCH) determinationOrdered By: Gaurang Cortes on 12-13-2024 MCH (RBC) [Entitic mass] 30.0 pg 27.0-32.[address] [facility] Mean corpuscular hemoglobin concentration (MCHC) determinationOrdered By: Gaurang Cortes on 12-13-2024 MCHC (RBC) [Mass/Vol] 33.5 g/dL 32-36 [facility] Mean platelet volume determi nationOrdered By: Gaurang Cortes on 12-13-2024 Platelet mean volume (Bld) [Entitic vol] 10.7 fL 6.2-12.[address] [facility] Monocyte percentageOrdered B y: Gaurang Cortes on 12-13-2024 Monocytes/100 WBC (Bld) 10.9 % High 0-[address] [facility] Neutrophil percentageOrdered By: Gaurang Cortes on 05-02-2025 Neutrophils/100 WBC (Bld) 47.0 % 47-[address] [facility] Nucleated red blood cell per centageOrdered By: Gaurang Cortes on 12-13-2024 Nucleated RBC/100 WBC (Bld) [Ratio] 0 % 0-[address] [facility] Phosphoruson 12-13-2024 Phosphate [Mass/Vol] 3.6 mg/dL Normal 2.7-4.5 [facility] Comment on above: Performed By: #### L 100.0100, L500.2500, L501.5200, L501.2300 ####[facility] [address] [place], [address] Platelet countOrdered By: Vic Cortes on 12-13-2024 Platelets (Bld) [#/Vol] 157 10*3/uL 150-[address] [facility] Potassium measurement (mass/ volume)Ordered By: Gaurang Cortes on 12-13-2024 Potassium (Unsp spec) [Mass/Vol] 4.3 mmol/L 3.3-5.[address] [facility] RBC Auto (Bld) [#/Vol]Ordere d By: Gaurang Cortes on 12-13-2024 RBC (Bld) [#/Vol] 3.60 10*6/uL Low 4.6-6.2 [facility] [place] Serum creatinine measurement (mass/volume)Ordered By: Gaurang Cortes on 12-13-2024 Creatinine [Mass/Vol] 1.56 mg/dL High 0.70-1.20 [facility] Serum glucose measurement (m ass/volume)Ordered By: Gaurang Cortes on 12-13-2024 Glucose [Mass/Vol] 100 mg/dL High 70-99 [facility] Serum or plasma calcium kelli urement (mass/volume)Ordered By: Gaurang Cortes on 12-13-2024 Calcium [Mass/Vol] 9.1 mg/dL 7.6-11.0 [facility] Serum or plasma urea nitroge n measurement (mass/volume)Ordered By: Gaurang Cortes on 12-13-2024 Urea nitrogen [Mass/Vol] 51 mg/dL High 4-[address] [facility] Sodium levelOrdered By: Sebastien Cortes on 12-13-2024 Sodium [Moles/Vol] 137 mmol/L 133-145 [facility] White blood cell (WBC) count Ordered By: Gaurang Cortes on 12-13-2024 WBC (Bld) [#/Vol] 5.9 10*3/uL 4.4-11.0 [facility] 12 Lead EKGon 12-12-2024 12 Lead EKG Normal [facility] Basic Metabolic Profile (BMP )on 12-12-2024 BUN/CRE 32.4 RATIO High 10-[address] [facility] Comment on above: Performed By: #### L 100.0100, L503.7505, L500.2500 ####[facility] [address] [place], [address] Calcium [Mass/Vol] 9.0 mg/dL Normal 7.6-11.0 [facility] Comment on above: Performed By: #### L 100.0100, L503.7505, L500.2500 ####[facility] [address] [place], [address] Chloride [Moles/Vol] 100 mmol/L Normal 98-108 [facility] Comment on above: Performed By: #### L 100.0100, L503.7505, L500.2500 ####[facility] [address] [place], [address] CO2 [Moles/Vol] 19.4 mmol/L Low 21.0-32.[address] [facility] Comment on above: Performed By: #### L 100.0100, L503.7505, L500.2500 ####[facility] [address] [place], [address] Creatinine [Mass/Vol] 1.66 mg/dL High 0.70-1.20 [facility] Comment on above: Performed By: #### L 100.0100, L503.7505, L500.2500 ####[facility] [address] [place], [address] ECRCL 33.42 ml/min Low 50-[address] [facility] Comment on above: Performed By: #### L 100.0100, L503.7505, L500.2500 ####[facility] [address] [place], [address] GAP 14 Normal 5-[address] [facility] Comment on above: Performed By: #### L 100.0100, L503.7505, L500.2500 ####[facility] [address] [place], [address] GFR/1.73 sq M.predicted among non-blacks MDRD (S/P/Bld) [Vol rate/Area] 40 mL/min/{1.73_m2} Low >[address] [facility] Comment on above: Result Comment: mL/m in/1.73m2 CKD-EPI Creatinine Equation (2020) Performed By: #### L 100.0100, L503.7505, L500.2500 ####[facility] [address] [place], [address] Glucose [Mass/Vol] 100 mg/dL High 70-99 [facility] Comment on above: Performed By: #### L 100.0100, L503.7505, L500.2500 ####[facility] [address] [place], [address] Potassium [Moles/Vol] 4.3 mmol/L Normal 3.3-5.1 [facility] Comment on above: Performed By: #### L 100.0100, L503.7505, L500.2500 ####[facility] [address] [place], [address] Sodium [Moles/Vol] 133 mmol/L Normal 133-145 [facility] Comment on above: Performed By: #### L 100.0100, L503.7505, L500.2500 ####[facility] [address] [place], [address] Urea nitrogen [Mass/Vol] 54 mg/dL High 4-[address] [facility] Comment on above: Performed By: #### L 100.0100, L503.7505, L500.2500 ####[facility] [address] [place], [address] CBC W/Diff, Automatedon 05-0 -2024 Absolute Lymph 2.50 X10 3/uL Normal 0.83-4.[address] [facility] Comment on above: Performed By: #### L 100.0100, L503.7505, L500.2500 ####[facility] [address] [place], [address] Absolute Neut 3.3 X10 3/uL Normal 2.0-7.[address] [facility] Comment on above: Performed By: #### L 100.0100, L503.7505, L500.2500 ####[facility] [address] [place], [address] Basophils/100 WBC (Bld) 0.4 % Normal 0-[address] [facility] Comment on above: Performed By: #### L 100.0100, L503.7505, L500.2500 ####[facility] [address] [place], [address] Eosinophils/100 WBC (Bld) 5.4 % High 0-[address] [facility] Comment on above: Performed By: #### L 100.0100, L503.7505, L500.2500 ####[facility] [address] [place], [address] Erythrocyte distribution width (RBC) [Ratio] 14.8 % High 11.6-14.[address] [facility] Comment on above: Performed By: #### L 100.0100, L503.7505, L500.2500 ####[facility] [address] [place], [address] Hematocrit (Bld) [Volume fraction] 32.1 % Low 40-[address] [facility] Comment on above: Performed By: #### L 100.0100, L503.7505, L500.2500 ####[facility] [address] [place], [address] Hemoglobin (Bld) [Mass/Vol] 11.0 g/dL Low 13.0-16.[address] [facility] Comment on above: Performed By: #### L 100.0100, L503.7505, L500.2500 ####[facility] [address] [place], [address] IG% 0.300 Normal 0.0-0.[address] [facility] Comment on above: Result Comment: IG% - Immature Granulocytes (promyelocytes, myelocytes andmetamyelocytes) > 1% indicates that a LEFT SHIFT is Present. Performed By: #### L 100.0100, L503.7505, L500.2500 ####[facility] [address] [place], [address] Lymphocytes/100 WBC (Bld) 36.4 % Normal 19-[address] [facility] Comment on above: Performed By: #### L 100.0100, L503.7505, L500.2500 ####[facility] [address] [place], [address] MCH (RBC) [Entitic mass] 30.4 pg Normal 27.0-32.[address] [facility] Comment on above: Performed By: #### L 100.0100, L503.7505, L500.2500 ####[facility] [address] [place], [address] MCHC (RBC) [Mass/Vol] 34.3 g/dL Normal 32-36 [facility] Comment on above: Performed By: #### L 100.0100, L503.7505, L500.2500 ####[facility] [address] [place], [address] MCV (RBC) [Entitic vol] 88.7 fL Normal 80-[address] [facility] Comment on above: Performed By: #### L 100.0100, L503.7505, L500.2500 ####[facility] [address] [place], [address] Monocytes/100 WBC (Bld) 10.2 % High 0-[address] [facility] Comment on above: Performed By: #### L 100.0100, L503.7505, L500.2500 ####[facility] [address] [place], [address] Neutrophils/100 WBC (Bld) 47.3 % Normal 47-[address] [facility] Comment on above: Performed By: #### L 100.0100, L503.7505, L500.2500 ####[facility] [address] [place], [address] Nucleated RBC (Bld) [#/Vol] 0 10*3/uL Normal 0-[address] [facility] Comment on above: Performed By: #### L 100.0100, L503.7505, L500.2500 ####[facility] [address] [place], [address] Platelet mean volume (Bld) [Entitic vol] 10.8 fL Normal 6.2-12.[address] [facility] Comment on above: Performed By: #### L 100.0100, L503.7505, L500.2500 ####[facility] [address] [place], [address] Platelets (Bld) [#/Vol] 138 10*3/uL Low 150-[address] [facility] Comment on above: Performed By: #### L 100.0100, L503.7505, L500.2500 ####[facility] [address] [place], [address] RBC (Bld) [#/Vol] 3.62 10*6/uL Low 4.6-6.2 [facility] Comment on above: Performed By: #### L 100.0100, L503.7505, L500.2500 ####[facility] [address] [place], [address] RDW SD 48.0 fl High 35.1-43.[address] [facility] Comment on above: Performed By: #### L 100.0100, L503.7505, L500.2500 ####[facility] [address] [place], [address] WBC (Bld) [#/Vol] 6.9 10*3/uL Normal 4.4-11.0 [facility] Comment on above: Performed By: #### L 100.0100, L503.7505, L500.2500 ####[facility] [address] [place], [address] Chest PA and Lateralon 12-12 Chest PA and Lateral Normal [facility] Echo Complete W/ Contraston 12-12-2024 Echo Complete W/ Contrast Normal [facility] Emergency Department Summary on 12-12-2024 Emergency Department Summary Normal [facility] H AND P Exam - Hospitaliston 12-12-2024 H&P Exam - Hospitalist Normal [facility] L503.7505on 12-12-2024 Natriuretic peptide B (Bld) [Mass/Vol] 8635 pg/mL High <=[address] [facility] Comment on above: Result Comment: Hear t Failure Unlikely: < 300 pg/mLHeart Failure Likely< 50 Years: > 450 pg/mL50-75 Years: > 900 pg/mL>75 Years: > 1800 pg/mL Performed By: #### L 100.0100, L503.7505, L500.2500 ####[facility] [address] [place], [address] Natriuretic peptide.B prohor alirio N-Terminal [Mass/volume] in Serum or PlasmaOrdered By: Jose Lopez on 12-12-2024 Natriuretic peptide.B prohormone N-Terminal [Mass/Vol] 8635 pg/mL High <[address] [facility] Comment on above: Heart Failure Unlike ly: < 300 pg/mLHeart Failure Likely< 50 Years: > 450 pg/mL50-75 Years: > 900 pg/mL>75 Years: > 1800 pg/mL Anion gap in Serum or Plasma Ordered By: Karo Sewell on 11-18-2024 Anion gap [Moles/Vol] 13 mmol/L - [facility] BUN/creatinine ratioOrdered By: Karo Sewell on 11-18-2024 Urea nitrogen/Creatinine [Mass ratio] 27.3 mg/mg High 10- [facility] Basic Metabolic Profile (BMP )on 11-18-2024 BUN/CRE 27.3 RATIO High - [facility] Comment on above: Order Comment: Order Date: 11/11/24Order Info: 0667-1 - BMP Performed By: #### L 500.2500 ####[facility] [address] [place], [address] Calcium [Mass/Vol] 9.3 mg/dL Normal 7.6-11.0 [facility] Comment on above: Order Comment: Order Date: 11/11/24Order Info: 0667-1 - BMP Performed By: #### L 500.2500 ####[facility] [address] [place], [address] Chloride [Moles/Vol] 99 mmol/L Normal 98-108 [facility] Comment on above: Order Comment: Order Date: 11/11/24Order Info: 0667-1 - BMP Performed By: #### L 500.2500 ####[facility] [address] [place], [address] CO2 [Moles/Vol] 25.0 mmol/L Normal 21.0-32.[address] [facility] Comment on above: Order Comment: Order Date: 11/11/24Order Info: 666-08 - BMP Performed By: #### L 500.2500 ####[facility] [address] [place], [address] Creatinine [Mass/Vol] 1.50 mg/dL High 0.70-1.20 [facility] Comment on above: Order Comment: Order Date: 11/11/24Order Info: 666-08 - BMP Performed By: #### L 500.2500 ####[facility] [address] [place], [address] GAP 13 Normal 5-[address] [facility] Comment on above: Order Comment: Order Date: 11/11/24Order Info: 666-08 - BMP Performed By: #### L 500.2500 ####[facility] [address] [place], [address] GFR/1.73 sq M.predicted among non-blacks MDRD (S/P/Bld) [Vol rate/Area] 46 mL/min/{1.73_m2} Low >[address] [facility] Comment on above: Order Comment: Order Date: 11/11/24Order Info: 666-08 - BMP Result Comment: mL/m in/1.73m2 CKD-EPI Creatinine Equation (2020) Performed By: #### L 500.2500 ####[facility] [address] [place], [address] Glucose [Mass/Vol] 105 mg/dL High 70-99 [facility] Comment on above: Order Comment: Order Date: 11/11/24Order Info: 666-08 - BMP Performed By: #### L 500.2500 ####[facility] [address] [place], [address] Potassium [Moles/Vol] 4.4 mmol/L Normal 3.3-5.1 [facility] Comment on above: Order Comment: Order Date: 11/11/24Order Info: 666-08 - BMP Performed By: #### L 500.2500 ####[facility] [address] [place], [address] Sodium [Moles/Vol] 137 mmol/L Normal 133-145 [facility] Comment on above: Order Comment: Order Date: 11/11/24Order Info: 0667-1 - BMP Performed By: #### L 500.2500 ####[facility] [address] [place], [address] Urea nitrogen [Mass/Vol] 41 mg/dL High 4-[address] [facility] Comment on above: Order Comment: Order Date: 11/11/24Order Info: 0667-1 - BMP Performed By: #### L 500.2500 ####[facility] [address] [place], [address] Carbon dioxide, total [Moles /volume] in Central venous bloodOrdered By: Karo Sewell on 11-18-2024 CO2 [Moles/Vol] 25.0 mmol/L 21.0-32.[address] [facility] Chloride assayOrdered By: Wesley Sewell on 11-18-2024 Chloride [Moles/Vol] 99 mmol/L 98-108 [facility] GFR/1.73 sq M.predicted jorge g non-blacks MDRD (S/P/Bld) [Vol rate/Area]Ordered By: Karo Sewell on 11-18-2024 Estimated GFR (MDRD) Non-Af Amer 46 Low >[address] [facility] Comment on above: mL/min/1.73m2 CKD-EP I Creatinine Equation (2020) Glomerular filtration rate ( GFR) estimation/1.73 sq m using serum, plasma, or whole bOrdered By: Karo Sewell on 11-18-2024 GFR/1.73 sq M.predicted among non-blacks MDRD (S/P/Bld) [Vol rate/Area] 46 mL/min/{1.73_m2} Low >[address] [facility] Comment on above: mL/min/1.73m2 CKD-EP I Creatinine Equation (2020) L503.7505on 11-18-2024 Natriuretic peptide B (Bld) [Mass/Vol] 6905 pg/mL High <=[address] [facility] Comment on above: Order Comment: Order Date: 11/11/24Order Info: 0667-1 - BMP Result Comment: Hear t Failure Unlikely: < 300 pg/mLHeart Failure Likely< 50 Years: > 450 pg/mL50-75 Years: > 900 pg/mL>75 Years: > 1800 pg/mL Performed By: #### L 503.7505 ####[facility] [address] [place], [address] Natriuretic peptide.B prohor alirio N-Terminal [Mass/Vol]Ordered By: Karo Sewell on 11-18-2024 Natriuretic peptide B (Bld) [Mass/Vol] 6905 pg/mL High <[address] [facility] Comment on above: Heart Failure Unlike ly: < 300 pg/mLHeart Failure Likely< 50 Years: > 450 pg/mL50-75 Years: > 900 pg/mL>75 Years: > 1800 pg/mL Natriuretic peptide.B prohor alirio N-Terminal [Mass/volume] in Serum or PlasmaOrdered By: Karo Sewell on 11-18-2024 Natriuretic peptide.B prohormone N-Terminal [Mass/Vol] 6905 pg/mL High <[address] [facility] Comment on above: Heart Failure Unlike ly: < 300 pg/mLHeart Failure Likely< 50 Years: > 450 pg/mL50-75 Years: > 900 pg/mL>75 Years: > 1800 pg/mL Potassium (Unsp spec) [Mass/ Vol]Ordered By: Karo Sewell on 11-18-2024 Potassium [Moles/Vol] 4.4 mmol/L 3.3-5.1 [facility] Potassium measurement (mass/ volume)Ordered By: Karo Sewell on 11-18-2024 Potassium (Unsp spec) [Mass/Vol] 4.4 mmol/L 3.3-5.[address] [facility] Serum creatinine measurement (mass/volume)Ordered By: Karo Sewell on 11-18-2024 Creatinine [Mass/Vol] 1.50 mg/dL High 0.70-1.20 [facility] Serum glucose measurement (m ass/volume)Ordered By: Karo Sewell on 11-18-2024 Glucose [Mass/Vol] 105 mg/dL High 70-99 [facility] Serum or plasma calcium kelli urement (mass/volume)Ordered By: Karo Sewell on 11-18-2024 Calcium [Mass/Vol] 9.3 mg/dL 7.6-11.0 [facility] Serum or plasma urea nitroge n measurement (mass/volume)Ordered By: Karo Sewell on 11-18-2024 Urea nitrogen [Mass/Vol] 41 mg/dL High 4-[address] [facility] Sodium levelOrdered By: Karo Sewell on 11-18-2024 Sodium [Moles/Vol] 137 mmol/L 133-145 [facility] Anion gap in Serum or Plasma Ordered By: Karo Sewell on 11-04-2024 Anion gap [Moles/Vol] 14 mmol/L 5-15 [facility] BUN/creatinine ratioOrdered By: Karo Sewell on 11-04-2024 Urea nitrogen/Creatinine [Mass ratio] 24.2 mg/mg High 10-[address] [facility] Basic Metabolic Profile (BMP )on 11-04-2024 BUN/CRE 24.2 RATIO High 10-[address] [facility] Comment on above: Order Comment: Order Date: 11/04/24Order Info: 0667-1 - BMP Performed By: #### L 500.2500 ####[facility] [address] [place], [address] Calcium [Mass/Vol] 9.3 mg/dL Normal 7.6-11.0 [facility] Comment on above: Order Comment: Order Date: 11/04/24Order Info: 0667- - BMP Performed By: #### L 500.2500 ####[facility] [address] [place], [address] Chloride [Moles/Vol] 96 mmol/L Low 98-108 [facility] Comment on above: Order Comment: Order Date: 11/04/24Order Info: 0667-1 - BMP Performed By: #### L 500.2500 ####[facility] [address] [place], [address] CO2 [Moles/Vol] 23.4 mmol/L Normal 21.0-32.[address] [facility] Comment on above: Order Comment: Order Date: 11/04/24Order Info: 666-08 - BMP Performed By: #### L 500.2500 ####[facility] [address] [place], [phone] Creatinine [Mass/Vol] 1.35 mg/dL High 0.70-1.20 [facility] Comment on above: Order Comment: Order Date: 11/04/24Order Info: 666-08 - BMP Performed By: #### L 500.2500 ####[facility] [address] [place], [address] GAP 14 Normal 5-[address] [facility] Comment on above: Order Comment: Order Date: 11/04/24Order Info: 666-08 - BMP Performed By: #### L 500.2500 ####[facility] [address] [place], [address] GFR/1.73 sq M.predicted among non-blacks MDRD (S/P/Bld) [Vol rate/Area] 52 mL/min/{1.73_m2} Low >[address] [facility] Comment on above: Order Comment: Order Date: 11/04/24Order Info: 666-08 - BMP Result Comment: mL/m in/1.73m2 CKD-EPI Creatinine Equation (2020) Performed By: #### L 500.2500 ####[facility] [address] [place], [address] Glucose [Mass/Vol] 95 mg/dL Normal 70-99 [facility] Comment on above: Order Comment: Order Date: 11/04/24Order Info: 666-08 - BMP Performed By: #### L 500.2500 ####[facility] [address] [place], [place], [phone] Potassium [Moles/Vol] 4.1 mmol/L Normal 3.3-5.1 [facility] Comment on above: Order Comment: Order Date: 11/04/24Order Info: 666-08 - BMP Performed By: #### L 500.2500 ####[facility] [address] [place], [place], [address] Sodium [Moles/Vol] 134 mmol/L Normal 133-145 [facility] Comment on above: Order Comment: Order Date: 11/04/24Order Info: 666-08 - BMP Performed By: #### L 500.2500 ####[facility] [address] [place], [place], [address] Urea nitrogen [Mass/Vol] 33 mg/dL High 4-[address] [facility] Comment on above: Order Comment: Order Date: 11/04/24Order Info: 666-08 - BMP Performed By: #### L 500.2500 ####[facility] [address] [place], [place], [address] Carbon dioxide, total [Moles /volume] in Central venous bloodOrdered By: Karo Sewell on 11-04-2024 CO2 [Moles/Vol] 23.4 mmol/L 21.0-32.[address] [facility] Chloride assayOrdered By: Wesley Sewell on 11-04-2024 Chloride [Moles/Vol] 96 mmol/L Low 98-108 [facility] GFR/1.73 sq M.predicted jorge g non-blacks MDRD (S/P/Bld) [Vol rate/Area]Ordered By: Karo Sewell on 11-04-2024 Estimated GFR (MDRD) Non-Af Amer 52 Low >[address] [facility] Comment on above: mL/min/1.73m2 CKD-EP I Creatinine Equation (2020) Glomerular filtration rate ( GFR) estimation/1.73 sq m using serum, plasma, or whole bOrdered By: Karo Sewell on 11-04-2024 GFR/1.73 sq M.predicted among non-blacks MDRD (S/P/Bld) [Vol rate/Area] 52 mL/min/{1.73_m2} Low >[address] [facility] Comment on above: mL/min/1.73m2 CKD-EP I Creatinine Equation (2020) L503.7505on 11-04-2024 Natriuretic peptide B (Bld) [Mass/Vol] 5346 pg/mL High <=[address] [facility] Comment on above: Order Comment: Order Date: 11/04/24Order Info: 0667-1 - BMP Result Comment: Hear t Failure Unlikely: < 300 pg/mLHeart Failure Likely< 50 Years: > 450 pg/mL50-75 Years: > 900 pg/mL>75 Years: > 1800 pg/mL Performed By: #### L 503.7505 ####[facility] [address] [place], [address] Laboratory - Chemistry and C hemistry - challengeOrdered By: Karo Sewell on 11-04-2024 Natriuretic peptide B (Bld) [Mass/Vol] 5346 pg/mL High <[address] [facility] Comment on above: Heart Failure Unlike ly: < 300 pg/mLHeart Failure Likely< 50 Years: > 450 pg/mL50-75 Years: > 900 pg/mL>75 Years: > 1800 pg/mL Potassium (Unsp spec) [Mass/ Vol]Ordered By: Karo Sewell on 11-04-2024 Potassium [Moles/Vol] 4.1 mmol/L 3.3-5.1 [facility] Potassium measurement (mass/ volume)Ordered By: Karo Sewell on 11-04-2024 Potassium (Unsp spec) [Mass/Vol] 4.1 mmol/L 3.3-5.[address] [facility] Serum creatinine measurement (mass/volume)Ordered By: Karo Sewell on 11-04-2024 Creatinine [Mass/Vol] 1.35 mg/dL High 0.70-1.20 [facility] Serum glucose measurement (m ass/volume)Ordered By: Karo Sewell on 11-04-2024 Glucose [Mass/Vol] 95 mg/dL 70-99 [facility] Serum or plasma calcium kelli urement (mass/volume)Ordered By: Karo Sewell on 11-04-2024 Calcium [Mass/Vol] 9.3 mg/dL 7.6-11.0 [facility] Serum or plasma urea nitroge n measurement (mass/volume)Ordered By: Karo Sewell on 11-04-2024 Urea nitrogen [Mass/Vol] 33 mg/dL High - [facility] Sodium levelOrdered By: Karo Sewell on 11-04-2024 Sodium [Moles/Vol] 134 mmol/L 133-145 [facility] Absolute neutrophil countOrd ered By: Andrzej Marinelli on 08-09-2024 Neutrophils (Bld) [#/Vol] 4.7 10*3/uL 2.0-7.[address] [facility] Albumin to globulin ratioOrd ered By: Andrzej Marinelli on 08-09-2024 Albumin/Globulin [Mass ratio] 0.9 {ratio} 0.9-2.[address] [facility] BNP (brain natriuretic pepti de measurement)Ordered By: Andrzej Marinelli on 08-09-2024 Natriuretic peptide B (Bld) [Mass/Vol] 786.9 pg/mL High 0-[address] [facility] BNP,B-Type NATRIURETIC PEPTI Paola 08-09-2024 Natriuretic peptide B (Bld) [Mass/Vol] 786.9 pg/mL High 0-[address] [facility] Comment on above: Performed By: #### L 100.0100, L501.5200, L501.9520, L501.9985, L500.4050, L500.4100, L503.6620, L506.0400 ####[facility] [address] [place], [address] Basophil percentageOrdered B y: Andrzej Marinelli on 08-09-2024 Basophils/100 WBC (Bld) 0.4 % 0-[address] [facility] Bilirubin, totalOrdered By: Andrzej Marinelli on 08-09-2024 Bilirubin [Mass/Vol] 0.80 mg/dL 0.20-1.00 [facility] Comment on above: For patients on eltr ombopag therapy, use of Dimension [place] TBIL is not recommended. Blood urea nitrogen (BUN)/cr eatinine ratioOrdered By: Andrzej Marinelli on 08-09-2024 Urea nitrogen/Creatinine [Mass ratio] 24.4 mg/mg High 10-[address] [facility] CBC W/Diff, Automatedon 12-2 Absolute Lymph 2.09 X10 3/uL Normal 0.83-4.[address] [facility] Comment on above: Performed By: #### L 100.0100, L501.5200, L501.9520, L501.9985, L500.4050, L500.4100, L503.6620, L506.0400 ####[facility] [address] [place], [address] Absolute Neut 4.7 X10 3/uL Normal 2.0-7.[address] [facility] Comment on above: Performed By: #### L 100.0100, L501.5200, L501.9520, L501.9985, L500.4050, L500.4100, L503.6620, L506.0400 ####[facility] [address] [place], [address] Basophils/100 WBC (Bld) 0.4 % Normal 0-[address] [facility] Comment on above: Performed By: #### L 100.0100, L501.5200, L501.9520, L501.9985, L500.4050, L500.4100, L503.6620, L506.0400 ####[facility] [address] [place], [address] Eosinophils/100 WBC (Bld) 2.5 % Normal 0-[address] [facility] Comment on above: Performed By: #### L 100.0100, L501.5200, L501.9520, L501.9985, L500.4050, L500.4100, L503.6620, L506.0400 ####[facility] [address] [place], [address] Erythrocyte distribution width (RBC) [Ratio] 14.6 % Normal 11.6-14.[address] [facility] Comment on above: Performed By: #### L 100.0100, L501.5200, L501.9520, L501.9985, L500.4050, L500.4100, L503.6620, L506.0400 ####[facility] [address] [place], [address] Hematocrit (Bld) [Volume fraction] 36.5 % Low 40-[address] [facility] Comment on above: Performed By: #### L 100.0100, L501.5200, L501.9520, L501.9985, L500.4050, L500.4100, L503.6620, L506.0400 ####[facility] [address] [place], [address] Hemoglobin (Bld) [Mass/Vol] 11.8 g/dL Low 13.0-16.[address] [facility] Comment on above: Performed By: #### L 100.0100, L501.5200, L501.9520, L501.9985, L500.4050, L500.4100, L503.6620, L506.0400 ####[facility] [address] [place], [address] IG% 0.300 Normal 0.0-0.[address] [facility] Comment on above: Result Comment: IG% - Immature Granulocytes (promyelocytes, myelocytes andmetamyelocytes) > 1% indicates that a LEFT SHIFT is Present. Performed By: #### L 100.0100, L501.5200, L501.9520, L501.9985, L500.4050, L500.4100, L503.6620, L506.0400 ####[facility] [address] [place], [address] Lymphocytes/100 WBC (Bld) 27.5 % Normal 19-[address] [facility] Comment on above: Performed By: #### L 100.0100, L501.5200, L501.9520, L501.9985, L500.4050, L500.4100, L503.6620, L506.0400 ####[facility] [address] [place], [address] MCH (RBC) [Entitic mass] 28.9 pg Normal 27.0-32.[address] [facility] Comment on above: Performed By: #### L 100.0100, L501.5200, L501.9520, L501.9985, L500.4050, L500.4100, L503.6620, L506.0400 ####[facility] [address] [place], [address] MCHC (RBC) [Mass/Vol] 32.3 g/dL Normal 32-36 [facility] Comment on above: Performed By: #### L 100.0100, L501.5200, L501.9520, L501.9985, L500.4050, L500.4100, L503.6620, L506.0400 ####[facility] [address] [place], [address] MCV (RBC) [Entitic vol] 89.5 fL Normal 80-[address] [facility] Comment on above: Performed By: #### L 100.0100, L501.5200, L501.9520, L501.9985, L500.4050, L500.4100, L503.6620, L506.0400 ####[facility] [address] [place], [address] Monocytes/100 WBC (Bld) 7.9 % Normal 0-[address] [facility] Comment on above: Performed By: #### L 100.0100, L501.5200, L501.9520, L501.9985, L500.4050, L500.4100, L503.6620, L506.0400 ####[facility] [address] [place], [address] Neutrophils/100 WBC (Bld) 61.4 % Normal 47-[address] [facility] Comment on above: Performed By: #### L 100.0100, L501.5200, L501.9520, L501.9985, L500.4050, L500.4100, L503.6620, L506.0400 ####[facility] [address] [place], [address] Nucleated RBC (Bld) [#/Vol] 0 10*3/uL Normal 0-[address] [facility] Comment on above: Performed By: #### L 100.0100, L501.5200, L501.9520, L501.9985, L500.4050, L500.4100, L503.6620, L506.0400 ####[facility] [address] [place], [address] Platelet mean volume (Bld) [Entitic vol] 10.5 fL Normal 6.2-12.[address] [facility] Comment on above: Performed By: #### L 100.0100, L501.5200, L501.9520, L501.9985, L500.4050, L500.4100, L503.6620, L506.0400 ####[facility] [address] [place], [address] Platelets (Bld) [#/Vol] 142 10*3/uL Low 150-[address] [facility] Comment on above: Performed By: #### L 100.0100, L501.5200, L501.9520, L501.9985, L500.4050, L500.4100, L503.6620, L506.0400 ####[facility] [address] [place], [address] RBC (Bld) [#/Vol] 4.08 10*6/uL Low 4.6-6.2 [facility] Comment on above: Performed By: #### L 100.0100, L501.5200, L501.9520, L501.9985, L500.4050, L500.4100, L503.6620, L506.0400 ####[facility] [address] [place], [place], [id number] RDW SD 47.4 fl High 35.1-43.[address] [facility] Comment on above: Performed By: #### L 100.0100, L501.5200, L501.9520, L501.9985, L500.4050, L500.4100, L503.6620, L506.0400 ####[facility] [address] [place], [place], [id number] WBC (Bld) [#/Vol] 7.6 10*3/uL Normal 4.4-11.0 [facility] Comment on above: Performed By: #### L 100.0100, L501.5200, L501.9520, L501.9985, L500.4050, L500.4100, L503.6620, L506.0400 ####[facility] [address] [place], [place], [id number] Carbon dioxide measurementOr dered By: Andrzej Marinelli on 08-09-2024 CO2 [Moles/Vol] 25.0 mmol/L 21.0-32.[address] [facility] Cardiology Visit Reporton Cardiology Visit Report Normal [facility] Chloride measurementOrdered By: Andrzej Marinelli on 08-09-2024 Chloride [Moles/Vol] 104 mmol/L 98-107 [facility] Comprehensive Metabolic Prof ilon 08-09-2024 Albumin [Mass/Vol] 3.4 g/dL Normal 3.2-5.0 [facility] Comment on above: Performed By: #### L 100.0100, L501.5200, L501.9520, L501.9985, L500.4050, L500.4100, L503.6620, L506.0400 ####[facility] [address] [place], [address] Albumin/Globulin [Mass ratio] 0.9 {ratio} Normal 0.9-2.[address] [facility] Comment on above: Performed By: #### L 100.0100, L501.5200, L501.9520, L501.9985, L500.4050, L500.4100, L503.6620, L506.0400 ####[facility] [address] [place], [address] ALK P 93 U/L Normal 45-[address] [facility] Comment on above: Performed By: #### L 100.0100, L501.5200, L501.9520, L501.9985, L500.4050, L500.4100, L503.6620, L506.0400 ####[facility] [address] [place], [address] ALT [Catalytic activity/Vol] 33 U/L Normal 16-[address] [facility] Comment on above: Performed By: #### L 100.0100, L501.5200, L501.9520, L501.9985, L500.4050, L500.4100, L503.6620, L506.0400 ####[facility] [address] [place], [place], [id number] AST [Catalytic activity/Vol] 19 U/L Normal 15-[address] [facility] Comment on above: Performed By: #### L 100.0100, L501.5200, L501.9520, L501.9985, L500.4050, L500.4100, L503.6620, L506.0400 ####[facility] [address] [place], [address] Bilirubin [Mass/Vol] 0.80 mg/dL Normal 0.20-1.00 [facility] Comment on above: Result Comment: For patients on eltrombopag therapy, use of Dimension [place] TBIL is not recommended. Performed By: #### L 100.0100, L501.5200, L501.9520, L501.9985, L500.4050, L500.4100, L503.6620, L506.0400 ####[facility] [address] [place], [address] BUN/CRE 24.4 RATIO High 10-[address] [facility] Comment on above: Performed By: #### L 100.0100, L501.5200, L501.9520, L501.9985, L500.4050, L500.4100, L503.6620, L506.0400 ####[facility] [address] [place], [address] CA,Total 8.7 mg/dL Normal 8.5-10.[address] [facility] Comment on above: Performed By: #### L 100.0100, L501.5200, L501.9520, L501.9985, L500.4050, L500.4100, L503.6620, L506.0400 ####[facility] [address] [place], [address] Chloride [Moles/Vol] 104 mmol/L Normal 98-107 [facility] Comment on above: Performed By: #### L 100.0100, L501.5200, L501.9520, L501.9985, L500.4050, L500.4100, L503.6620, L506.0400 ####[facility] [address] [place], [address] CO2 [Moles/Vol] 25.0 mmol/L Normal 21.0-32.[address] [facility] Comment on above: Performed By: #### L 100.0100, L501.5200, L501.9520, L501.9985, L500.4050, L500.4100, L503.6620, L506.0400 ####[facility] [address] [place], [place], [id number] Creatinine [Mass/Vol] 1.31 mg/dL High 0.70-1.30 [facility] Comment on above: Result Comment: The validity of the calculated GFR GFRAA in patients over70 years has not been determined. Clinical correlation isessential. Performed By: #### L 100.0100, L501.5200, L501.9520, L501.9985, L500.4050, L500.4100, L503.6620, L506.0400 ####[facility] [address] [place], [place], [id number] EST GFR - AA 67 mL/min Normal >[address] [facility] Comment on above: Result Comment: Afri can [place] GFR Calc Performed By: #### L 100.0100, L501.5200, L501.9520, L501.9985, L500.4050, L500.4100, L503.6620, L506.0400 ####[facility] [address] [place], [place], [id number] GAP 7 Normal 5-[address] [facility] Comment on above: Performed By: #### L 100.0100, L501.5200, L501.9520, L501.9985, L500.4050, L500.4100, L503.6620, L506.0400 ####[facility] [address] [place], [place], [id number] GFR/1.73 sq M.predicted among non-blacks MDRD (S/P/Bld) [Vol rate/Area] 55 mL/min/{1.73_m2} Low >[address] [facility] Comment on above: Result Comment: Non- GFR Calc Performed By: #### L 100.0100, L501.5200, L501.9520, L501.9985, L500.4050, L500.4100, L503.6620, L506.0400 ####[facility] [address] [place], [address] Globulin (S) [Mass/Vol] 3.7 g/dL Normal 2.2-4.[address] [facility] Comment on above: Performed By: #### L 100.0100, L501.5200, L501.9520, L501.9985, L500.4050, L500.4100, L503.6620, L506.0400 ####[facility] [address] [place], [address] Glucose [Mass/Vol] 98 mg/dL Normal 74-106 [facility] Comment on above: Performed By: #### L 100.0100, L501.5200, L501.9520, L501.9985, L500.4050, L500.4100, L503.6620, L506.0400 ####[facility] [address] [place], [address] Potassium [Moles/Vol] 4.2 mmol/L Normal 3.5-5.1 [facility] Comment on above: Performed By: #### L 100.0100, L501.5200, L501.9520, L501.9985, L500.4050, L500.4100, L503.6620, L506.0400 ####[facility] [address] [place], [address] Sodium [Moles/Vol] 136 mmol/L Normal 136-145 [facility] Comment on above: Performed By: #### L 100.0100, L501.5200, L501.9520, L501.9985, L500.4050, L500.4100, L503.6620, L506.0400 ####[facility] [address] [place], [address] T PROT 7.1 g/dL Normal 6.4-8.[address] [facility] Comment on above: Performed By: #### L 100.0100, L501.5200, L501.9520, L501.9985, L500.4050, L500.4100, L503.6620, L506.0400 ####[facility] [address] [place], [place], [address] Urea nitrogen [Mass/Vol] 32 mg/dL High 7-[address] [facility] Comment on above: Performed By: #### L 100.0100, L501.5200, L501.9520, L501.9985, L500.4050, L500.4100, L503.6620, L506.0400 ####[facility] [address] [facility] [place], [id number] Direct serum free thyroxine (FT4) measurementOrdered By: Andrzej Marinelli on 08-09-2024 Free T4 [Mass/Vol] 1.04 ng/dL 0.76-1.46 [facility] Eosinophil percentageOrdered By: Andrzej Marinelli on 08-09-2024 Eosinophils/100 WBC (Bld) 2.5 % 0-[address] [facility] Erythrocyte distribution wid th ratioOrdered By: Andrzej Marinelli on 08-09-2024 Erythrocyte distribution width (RBC) [Ratio] 14.6 % 11.6-14.[address] [facility] Erythrocyte distribution wid th standard deviationOrdered By: Andrzej Marinelli on 08-09-2024 Erythrocyte distribution width (RBC) [Entitic vol] 47.4 fL High 35.1-43.[address] [facility] Estimated glomerular filtrat ion rate (GFR) AmericanOrdered By: Andrzej Marinelli on 08-09-2024 Estimated GFR (MDRD) Amer 67 mL/min >[address] [facility] Comment on above: GFR Calc Glomerular filtration rate ( GFR) estimationOrdered By: Andrzej Marinelli on 08-09-2024 Estimated GFR (MDRD) Non-Af Amer 55 mL/min Low >[address] [facility] Comment on above: Non- GFR Calc Glucose measurementOrdered B y: Andrzej Marinelli on 08-09-2024 Glucose [Mass/Vol] 98 mg/dL 74-106 [facility] Hematocrit Auto (Bld) [Volum e fraction]Ordered By: Andrzej Marinelli on 08-09-2024 Hematocrit (Bld) [Volume fraction] 36.5 % Low 40-[address] [facility] Hemoglobin A1con 08-09-2024 HbA1c (Bld) [Mass fraction] 5.7 % High 3.8-5.[address] [facility] Comment on above: Result Comment: Norm al < 5.7 % Prediabetic 5.7 - 6.4 % Diabetic >or= 6.5 % Please note range changes. Performed By: #### L 100.0100, L501.5200, L501.9520, L501.9985, L500.4050, L500.4100, L503.6620, L506.0400 ####[facility] [address] [place], [address] Hemoglobin A1c percentageOrd ered By: Andrzej Marinelli on 08-09-2024 HbA1c (Bld) [Mass fraction] 5.7 % High 3.8-5.[address] [facility] Comment on above: Normal < 5.7 % Predi abetic 5.7 - 6.4 % Diabetic >or= 6.5 % Please note range changes. Hemoglobin measurementOrdere d By: Andrzej Marinelli on 08-09-2024 Hemoglobin (Bld) [Mass/Vol] 11.8 g/dL Low 13.0-16.[address] [facility] High density lipoprotein (HD L) measurementOrdered By: Andrzej Marinelli on 08-09-2024 Cholesterol in HDL [Mass/Vol] 68 mg/dL >[address] [facility] Comment on above: The drugs N-Acetylcy steine and Metamizole may falsely depress this assay. Reference Range HDL <40 mg/dL Low HDL Cholesterol HDL >or= 60 mg/dL High HDL Cholesterol Immature granulocytes/100 WB C Auto (Bld)Ordered By: Andrzej Marinelli on 08-09-2024 Immature granulocytes/100 WBC (Bld) 0.300 % 0.0-0.[address] [facility] Comment on above: IG% - Immature Granu locytes (promyelocytes, myelocytes and metamyelocytes) > 1% indicates that a LEFT SHIFT is Present. Laboratory - Chemistry and C hemistry - challengeOrdered By: Andrzej Marinelli on 08-09-2024 AST [Catalytic activity/Vol] 19 U/L 15-[address] [facility] Lipid Profileon 08-09-2024 Cholesterol [Mass/Vol] 279 mg/dL High [address] [facility] Comment on above: Result Comment: <200 mg/dL Desirable 200-240 mg/dL Borderline >240 mg/dL High Risk Performed By: #### L 100.0100, L501.5200, L501.9520, L501.9985, L500.4050, L500.4100, L503.6620, L506.0400 ####[facility] [address] [place], [address] Cholesterol in HDL [Mass/Vol] 68 mg/dL Normal [facility] Comment on above: Result Comment: The drugs N-Acetylcysteine and Metamizole may falselydepress this assay. Reference Range HDL <40 mg/dL Low HDL Cholesterol HDL >or= 60 mg/dL High HDL Cholesterol Performed By: #### L 100.0100, L501.5200, L501.9520, L501.9985, L500.4050, L500.4100, L503.6620, L506.0400 ####[facility] [address] [place], [address] Cholesterol in LDL [Mass/Vol] 194 mg/dL High 0-[address] [facility] Comment on above: Performed By: #### L 100.0100, L501.5200, L501.9520, L501.9985, L500.4050, L500.4100, L503.6620, L506.0400 ####[facility] [address] [place], [address] Cholesterol in VLDL [Mass/Vol] 17 mg/dL Normal 5-[address] [facility] Comment on above: Performed By: #### L 100.0100, L501.5200, L501.9520, L501.9985, L500.4050, L500.4100, L503.6620, L506.0400 ####[facility] [address] [place], [place], [id number] Triglyceride [Mass/Vol] 84 mg/dL Normal [facility] Comment on above: Result Comment: The drugs N-Acetylcysteine and Metamizole may falselydepress this assay.Serum Triglycerides Reference Interval Normal <150 mg/dL Borderline high 150 - 199 mg/dL High 200 - 499 mg/dL Very High > or = 500 mg/dL Performed By: #### L 100.0100, L501.5200, L501.9520, L501.9985, L500.4050, L500.4100, L503.6620, L506.0400 ####[facility] [address] [place], [place], [id number] Low density lipoprotein (LDL ) cholesterol measurementOrdered By: Andrzej Marinelli on 08-09-2024 Cholesterol in LDL [Mass/Vol] 194 mg/dL High 0-[address] [facility] Lymphocytes Auto (Unsp spec) [#/Vol]Ordered By: Andrzej Marinelli on 08-09-2024 Lymphocytes (Bld) [#/Vol] 2.09 10*3/uL 0.83-4.[address] [facility] Lymphocytes/100 WBC Auto (Un sp spec)Ordered By: Andrzej Marinelli on 08-09-2024 Lymphocytes/100 WBC (Bld) 27.5 % 19-[address] [facility] MCV (mean corpuscular volume ) determinationOrdered By: Andrzej Marinelli on 08-09-2024 MCV (RBC) [Entitic vol] 89.5 fL 80-[address] [facility] Magnesiumon 08-09-2024 Magnesium [Mass/Vol] 2.3 mg/dL Normal 1.6-2.6 [facility] Comment on above: Performed By: #### L 100.0100, L501.5200, L501.9520, L501.9985, L500.4050, L500.4100, L503.6620, L506.0400 ####[facility] [address] [place], [address] Magnesium measurementOrdered By: Andrzej Marinelli on 08-09-2024 Magnesium [Mass/Vol] 2.3 mg/dL 1.6-2.6 [facility] Mean corpuscular hemoglobin (MCH) determinationOrdered By: Andrzej Marinelli on 08-09-2024 MCH (RBC) [Entitic mass] 28.9 pg 27.0-32.[address] [facility] Mean corpuscular hemoglobin concentration (MCHC) determinationOrdered By: Andrzej Marinelli on 08-09-2024 MCHC (RBC) [Mass/Vol] 32.3 g/dL 32-36 [facility] Mean platelet volume determi nationOrdered By: Andrzej Marinelli on 08-09-2024 Platelet mean volume (Bld) [Entitic vol] 10.5 fL 6.2-12.[address] [facility] Monocyte percentageOrdered B y: Andrzej Marinelli on 08-09-2024 Monocytes/100 WBC (Bld) 7.9 % 0-[address] [facility] Neutrophil percentageOrdered By: Andrzej Marinelli on 08-09-2024 Neutrophils/100 WBC (Bld) 61.4 % 47-[address] [facility] Nucleated red blood cell per centageOrdered By: Andrzej Marinelli on 08-09-2024 Nucleated RBC/100 WBC (Bld) [Ratio] 0 % 0-[address] [facility] Platelet countOrdered By: Claire Marinelli on 08-09-2024 Platelets (Bld) [#/Vol] 142 10*3/uL Low 150-[address] [facility] Potassium measurementOrdered By: Andrzej Marinelli on 08-09-2024 Potassium [Moles/Vol] 4.2 mmol/L 3.5-5.1 [facility] RBC Auto (Bld) [#/Vol]Ordere d By: Andrzej Marinelli on 08-09-2024 RBC (Bld) [#/Vol] 4.08 10*6/uL Low 4.6-6.2 [facility] Serum anion gap measurementO rdered By: Andrzej Marinelli on 08-09-2024 Anion gap [Moles/Vol] 7 mmol/L 5-15 [facility] Serum globulin measurementOr dered By: Andrzej Marinelli on 08-09-2024 Globulin (S) [Mass/Vol] 3.7 g/dL 2.2-4.[address] [facility] Serum or plasma alanine holm otransferase (ALT) measurementOrdered By: Andrzej Marinelli on 08-09-2024 ALT [Catalytic activity/Vol] 33 U/L 16-[address] [facility] Serum or plasma albumin kelli urement (mass/volume)Ordered By: Andrzej Marinelli on 08-09-2024 Albumin [Mass/Vol] 3.4 g/dL 3.2-5.0 [facility] Serum or plasma alkaline karen sphatase measurementOrdered By: Andrzej Marinelli on 08-09-2024 ALP [Catalytic activity/Vol] 93 U/L 45-[address] [facility] Serum or plasma calcium kelli urement (mass/volume)Ordered By: Andrzej Marinelli on 08-09-2024 Calcium [Mass/Vol] 8.7 mg/dL 8.5-10.1 [facility] Serum or plasma cholesterol measurement (mass/volume)Ordered By: Andrzej Marinelli on 08-09-2024 Cholesterol [Mass/Vol] 279 mg/dL High <[address] [facility] Comment on above: <200 mg/dL Desirable 200-240 mg/dL Borderline >240 mg/dL High Risk Serum or plasma creatinine m easurement (mass/volume)Ordered By: Andrzej Marinelli on 08-09-2024 Creatinine [Mass/Vol] 1.31 mg/dL High 0.70-1.30 [facility] Comment on above: The validity of the calculated GFR & GFRAA in patients over 70 years has not been determined. Clinical correlation is essential. Serum or plasma urea nitroge n measurement (mass/volume)Ordered By: Andrzej Marinelli on 08-09-2024 Urea nitrogen [Mass/Vol] 32 mg/dL High 7-[address] [facility] Sodium levelOrdered By: Andrzej Marinelli on 08-09-2024 Sodium [Moles/Vol] 136 mmol/L 136-145 [facility] T4 Free Directon 08-09-2024 T4 FREE DIRECT 1.04 ng/dL Normal 0.76-1.[address] [facility] Comment on above: Performed By: #### L 100.0100, L501.5200, L501.9520, L501.9985, L500.4050, L500.4100, L503.6620, L506.0400 ####[facility] [id number] [place], [place], [id number] TSH QnOrdered By: Andrzej Marinelli on 08-09-2024 Thyroid Stimulating Hormone (TSH) 2.000 uIU/mL 0.358-3.[address] [facility] Thyroid Stim Hormone (TSH)on 08-09-2024 TSH 2.000 uIU/mL Normal 0.358-3.[address] [facility] Comment on above: Performed By: #### L 100.0100, L501.5200, L501.9520, L501.9985, L500.4050, L500.4100, L503.6620, L506.0400 ####[facility] [id number] [place], [place], [id number] Total proteinOrdered By: Martin Marinelli on 08-09-2024 Protein [Mass/Vol] 7.1 g/dL 6.4-8.2 [facility] Triglycerides measurementOrd ered By: Andrzej Marinelli on 08-09-2024 Triglyceride [Mass/Vol] 84 mg/dL <[address] [facility] Comment on above: The drugs N-Acetylcy steine and Metamizole may falsely depress this assay.Serum Triglycerides Reference Interval Normal <150 mg/dL Borderline high 150 - 199 mg/dL High 200 - 499 mg/dL Very High > or = 500 mg/dL Very low density lipoprotein (VLDL) cholesterol measurementOrdered By: Andrzej Marinelli on 08-09-2024 VLDL Cholesterol 17 mg/dL 5-[address] [facility] White blood cell (WBC) count Ordered By: Andrzej Marinelli on 08-09-2024 WBC (Bld) [#/Vol] 7.6 10*3/uL 4.4-11.0 [facility] Basophil percentageon 2021 Bilirubin [Mass/Vol] 0.80 mg/dL 0.20-1.00 [facility] Work Phone: Comment on above: For patients on eltr ombopag therapy, use of Dimension [place] TBIL is not recommended. Cholesterol [Mass/Vol] 279 mg/dL <[address] [facility] Work Phone: Comment on above: <200 mg/dL Desirable 200-240 mg/dL Borderline >240 mg/dL High Risk Protein [Mass/Vol] 7.3 g/dL 6.4-8.2 [facility] Work Phone: Triglyceride [Mass/Vol] 82 mg/dL <[address] [facility] Work Phone: Comment on above: The drugs N-Acetylcy steine and Metamizole may falsely depress this assay.Serum Triglycerides Reference Interval Normal <150 mg/dL Borderline high 150 - 199 mg/dL High 200 - 499 mg/dL Very High > or = 500 mg/dL Direct bilirubinon Bilirubin.direct [Mass/Vol] 0.19 mg/dL 0.00-0.[address] [facility] Work Phone: [phone] Laboratory - Chemistry and C hemistry - challengeon 02-01-2022 ALP [Catalytic activity/Vol] 95 U/L 45-[address] [facility] Work Phone: [phone] ALT [Catalytic activity/Vol] 27 U/L 16-[address] [facility] Work Phone: [phone] Globulin (S) [Mass/Vol] 3.7 g/dL 2.2-4.[address] [facility] Work Phone: [phone] Serum or plasma albumin kelli urement (mass/volume)on 02-01-2022 Albumin [Mass/Vol] 3.6 g/dL 3.2-5.0 [facility] Work Phone: [phone] Serum or plasma cholesterol in HDL measurement (mass/volume)on 02-01-2022 Cholesterol in HDL [Mass/Vol] 62 mg/dL >[address] [facility] Work Phone: [phone] Comment on above: The drugs N-Acetylcy steine and Metamizole may falsely depress this assay. Reference Range HDL <40 mg/dL Low HDL Cholesterol HDL >or= 60 mg/dL High HDL Cholesterol Serum or plasma cholesterol in VLDL measurement (mass/volume)on 02-01-2022 Cholesterol in VLDL [Mass/Vol] 16 mg/dL 5-[address] [facility] Work Phone: [phone] Serum or plasma low density lipoprotein (LDL) cholesterol measurement (mass/volume)on 02-01-2022 Cholesterol in LDL [Mass/Vol] 201 mg/dL 0-[address] [facility] Work Phone: Thin prep Papanicolaou smear with manual screeningon 02-01-2022 Thin prep Papanicolaou smear with manual screening 21 U/L 15-[address] [facility] Work Phone: Absolute lymphocyte counton 01-27-2022 Lymphocytes Auto (Unsp spec) [#/Vol] 2.48 10*3/uL 0.83-4.[address] [facility] Work Phone: Basophil percentageon 2021 Basophils/100 WBC (Bld) 0.3 % 0-[address] [facility] Work Phone: Bilirubin [Mass/Vol] 0.70 mg/dL 0.20-1.00 [facility] Work Phone: Comment on above: For patients on eltr ombopag therapy, use of Dimension [place] TBIL is not recommended. Chloride [Moles/Vol] 105 mmol/L 98-107 [facility] Work Phone: Eosinophils/100 WBC (Bld) 1.5 % 0-[address] [facility] Work Phone: Glucose [Mass/Vol] 105 mg/dL 74-106 [facility] Work Phone: Comment on above: Fasting Glucose resu lt from 100 to 125 mg/dL suggests IMPAIRED HOMEOSTASIS per A.D.A. criteria. Neutrophils (Bld) [#/Vol] 3.5 10*3/uL 2.0-7.[address] [facility] Work Phone: Neutrophils/100 WBC (Bld) 51.8 % 47-[address] [facility] Work Phone: Potassium [Moles/Vol] 4.0 mmol/L 3.5-5.1 [facility] Work Phone: Protein [Mass/Vol] 7.2 g/dL 6.4-8.2 [facility] Work Phone: Sodium [Moles/Vol] 137 mmol/L 136-145 [facility] Work Phone: WBC (Bld) [#/Vol] 6.7 10*3/uL 4.4-11.0 [facility] Work Phone: Blood erythrocytes count (nu mber/volume)on 01-27-2022 RBC (Bld) [#/Vol] 4.62 10*6/uL 4.6-6.2 [facility] Work Phone: Blood hemoglobin measurement (mass/volume)on 01-27-2022 Hemoglobin (Bld) [Mass/Vol] 14.0 g/dL 13.0-16.[address] [facility] Work Phone: Blood lymphocytes/100 leukoc yteson 01-27-2022 Lymphocytes/100 WBC (Bld) 37.2 % 19-[address] [facility] Work Phone: Blood monocytes/100 leukocyt eson 01-27-2022 Monocytes/100 WBC (Bld) 8.9 % 0-[address] [facility] Work Phone: Blood platelet mean volumeon 01-27-2022 Platelet mean volume (Bld) [Entitic vol] 10.3 fL 6.2-12.[address] [facility] Work Phone: Determination of erythrocyte mean corpuscular volume (MCV)on 01-27-2022 MCV (RBC) [Entitic vol] 89.6 fL 80-[address] [facility] Work Phone: Hematocrit Auto (Bld) [Volum e fraction]on 01-27-2022 Hematocrit (Bld) [Volume fraction] 41.4 % 40-[address] [facility] Work Phone: Laboratory - Chemistry and C hemistry - challengeon 01-27-2022 ALP [Catalytic activity/Vol] 93 U/L 45-[address] [facility] Work Phone: ALT [Catalytic activity/Vol] 24 U/L 16-[address] [facility] Work Phone: CO2 [Moles/Vol] 26.0 mmol/L 21.0-32.[address] [facility] Work Phone: [phone] Globulin (S) [Mass/Vol] 3.7 g/dL 2.2-4.[address] [facility] Work Phone: [phone] Natriuretic peptide B (Bld) [Mass/Vol] 953.6 pg/mL 0-[address] [facility] Work Phone: [phone] Urea nitrogen/Creatinine [Mass ratio] 22.0 mg/mg 10-[address] [facility] Work Phone: [phone] Laboratory - Hematology and Cell countson 01-27-2022 Erythrocyte distribution width (RBC) [Entitic vol] 44.0 fL 35.1-43.[address] [facility] Work Phone: [phone] Erythrocyte distribution width (RBC) [Ratio] 13.4 % 11.6-14.[address] [facility] Work Phone: [phone] Immature granulocytes/100 WBC (Bld) 0.300 % 0.0-0.[address] [facility] Work Phone: [phone] Comment on above: IG% - Immature Granu locytes (promyelocytes, myelocytes and metamyelocytes) > 1% indicates that a LEFT SHIFT is Present. MCH (RBC) [Entitic mass] 30.3 pg 27.0-32.[address] [facility] Work Phone: [phone] Nucleated RBC/100 WBC (Bld) [Ratio] 0 % 0-[address] [facility] Work Phone: [phone] MCHC Auto (RBC) [Mass/Vol]on 01-27-2022 MCHC (RBC) [Mass/Vol] 33.8 g/dL 32-36 [facility] Work Phone: [phone] No Panel Informationon 01-27 Estimated Creatinine Clearance Calc 42.71 ml/min [facility] Work Phone: [phone] Estimated GFR (MDRD) Amer 76 mL/min >[address] [facility] Work Phone: [phone] Comment on above: GFR Calc Estimated GFR (MDRD) Non-Af Amer 63 mL/min >[address] [facility] Work Phone: Comment on above: Non- GFR Calc Troponin I High Sensitivity 21 pg/mL 3.0-78.[address] [facility] Work Phone: Comment on above: Please Note: New Pat t Units and Gender Specific Reference Ranges. For more information see Policy Stat Procedure [place] High Sensitivity Troponin (TNIH) and attachments. Platelets bldon 01-27-2022 Platelets (Bld) [#/Vol] 165 10*3/uL 150-[address] [facility] Work Phone: Serum or plasma albumin kelli urement (mass/volume)on 01-27-2022 Albumin [Mass/Vol] 3.5 g/dL 3.2-5.0 [facility] Work Phone: [phone] Serum or plasma albumin/glob ulin mass ratioon 01-27-2022 Albumin/Globulin [Mass ratio] 0.9 {ratio} 0.9-2.[address] [facility] Work Phone: Serum or plasma calcium kelli urement (mass/volume)on 01-27-2022 Calcium [Mass/Vol] 8.9 mg/dL 8.5-10.1 [facility] Work Phone: Serum or plasma creatinine m easurement (mass/volume)on 01-27-2022 Creatinine [Mass/Vol] 1.18 mg/dL 0.70-1.30 [facility] Work Phone: Comment on above: The validity of the calculated GFR & GFRAA in patients over 70 years has not been determined. Clinical correlation is essential. Serum or plasma urea nitroge n measurement (mass/volume)on 01-27-2022 Urea nitrogen [Mass/Vol] 26 mg/dL 7-[address] [facility] Work Phone: [phone] Thin prep Papanicolaou smear with manual screeningon 01-27-2022 Thin prep Papanicolaou smear with manual screening 17 U/L 15-[address] [facility] Work Phone: Thin prep Papanicolaou smear with manual screening 6 5-[address] [facility] Work Phone: PSA, TOTALon 09-17-2020 PSA, TOTAL [...] By: #### 5 363 #### [facility] [address], [address] [place] [address] Marker Maker: Catrachito Huerta MD ESRon 09-16-2020 ESR (Bld) [Velocity] 20 mm/h Normal 0-20 [facility] Comment on above: Performed By: #### E SR #### [place] [address] PRODUCT SAFETY COMPLIANCE LEADER REPORTon 03-06-20 PRODUCT SAFETY COMPLIANCE LEADER REPORT [facility] CONSULTATION REPORT NAME ACCOUNT SEX AGE ADMIT DISCHARGE PT MED. NUMBER DATE DATE TYPE RECORD# TIAN [id number] M [id number] 02/25/19 1 FLORIN Courtney [address] ROOM: [facility] DATE OF : 1940 DICTATING PHYSICIAN: Marielle [...] he had 3 stents placed at the [facility] in conjunction with aortic valve replacement transarterial. MEDICATIONS: The patient is currently on aspirin 81 mg daily, clopidogrel 75 mg daily, furosemide 40 mg daily, metoprolol 25 mg daily. ALLERGIES: He has no known drug allergies. FAMILY HISTORY: Positive for atherosclerotic vascular disease. SOCIAL HISTORY: The patient is retired. 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 Page 1 of 2 FLORIN VARGAS Consultation REVIEW OF SYSTEMS: The patient [...] Marielle Pardo MD 02/25/19 15:07 JOB #: [id number] Transcribed By: am 02/25/19 15:30 Electronically signed by: E-Sign: MARIELLE PARDO MD 03/06/19 09:05 Page 2 of 2 FLORIN VARGAS Consultation Normal [facility] with eGFRon 02-26-2019 Age - Reported 79 years Normal [facility] Comment on above: Performed By: #### 2 23165 #### [facility],[address] [place] [address] Anion gap [Moles/Vol] 10 mmol/L Normal 10 - 20 [facility] Comment on above: Performed By: #### 2 60539 #### [facility],[address] [place] [address] Calcium [Mass/Vol] 8.4 mg/dL Low 8.6 - 10.2 [facility] Comment on above: Performed By: #### 2 66879 #### [facility],[address] [place] [address] Chloride [Moles/Vol] 102 mmol/L Normal 98 - 107 [facility] Comment on above: Performed By: #### 2 56523 #### [facility],[address] [place] [address]205 CO2 [Moles/Vol] 27.5 mmol/L Normal 21.0 - 31.0 [facility] Comment on above: Performed By: #### 2 97470 #### [facility],[address] [place] [address] Creatinine [Mass/Vol] 1.2 mg/dL Normal 0.7 - 1.3 [facility] Comment on above: Performed By: #### 2 15727 #### [facility],[address] [place] [address] GFR/1.73 sq M predicted among non-blacks MDRD (S/P/Bld) [Vol rate/Area] Normal [facility] Comment on above: Result Comment: BASI C METABOLIC PANEL Performed By: #### 2 45889 #### [facility],[address] [place] [address] GFR/1.73 sq M predicted among non-blacks MDRD (S/P/Bld) [Vol rate/Area] 58 ML/MINUTE Low 60 - 999 [facility] Comment on above: Performed By: #### 2 30402 #### [address] [address] GFR/1.73 sq M predicted among non-blacks MDRD (S/P/Bld) [Vol rate/Area] mL/min/{1.73_m2} Normal 60 - 999 [facility] Comment on above: Result Comment: ACCO RDING TO THE NATIONAL KIDNEY DISEASE EDUCATION PROGRAM(NKDE), A NORMAL eGFR IS A VALUE GREATER THAN OR EQUAL TO 60 ML/MIN/1.73 SQ METERS. CHRONIC KIDNEY DISEASE: <60mL/MIN/1.73 SQ METERS KIDNEY FAILURE: <15mL/MIN/1.73 SQ METERS THIS TEST SHOULD ONLY BE USED FOR PATIENTS 18 YEARS OF AGE AND OLDER. Performed By: #### 2 63212 #### [address] [address] Glucose [Mass/Vol] 127 mg/dL High 74 - 106 [facility] Comment on above: Performed By: #### 2 68695 #### [address] [address] Potassium [Moles/Vol] 4.2 mmol/L Normal 3.5 - 5.1 [facility] Comment on above: Performed By: #### 2 57028 #### [address] [address] Sodium [Moles/Vol] 135 mmol/L Low 136 - 145 [facility] Comment on above: Performed By: #### 2 17070 #### [address] [address] Urea nitrogen [Mass/Vol] 28 mg/dL High 6 - 20 [facility] Comment on above: Performed By: #### 2 87626 #### [address] [address] CBC + DIFFon 02-26-2019 Basophils (Bld) [#/Vol] 0.00 x10EE3/UL Normal 0.00 - 0.10 [facility] Comment on above: Performed By: #### 2 47193 #### [facility],[address] [place] [address] Basophils/100 WBC (Bld) 0.2 % Normal 0.0 - 2.0 [facility] Comment on above: Performed By: #### 2 31496 #### [facility],[address] [place] [address] CBC + DIFF Normal [facility] Comment on above: Result Comment: CBC- COMPLETE BLOOD COUNT Performed By: #### 2 23130 #### [facility],[address] [place] [address] 20205 Eosinophils (Bld) [#/Vol] 0.00 x10EE3/UL Normal 0.00 - 0.50 [facility] Comment on above: Performed By: #### 2 41305 #### [facility],[address] [place] [address] Eosinophils/100 WBC (Bld) 0.1 % Normal 0.0 - 7.0 [facility] Comment on above: Performed By: #### 2 18643 #### [facility],[address] [place] [address] Erythrocyte distribution width (RBC) [Ratio] 13.8 % Normal 12.0 - 15.6 [facility] Comment on above: Performed By: #### 2 54068 #### [facility],[address] [place] [address] Hematocrit (Bld) [Volume fraction] 32.9 % Low 40.0 - 52.0 [facility] Comment on above: Performed By: #### 2 51816 #### [facility],[address] [place] [address] Hemoglobin (Bld) [Mass/Vol] 11.6 g/dL Low 13.0 - 17.5 [facility] Comment on above: Performed By: #### 2 55580 #### [facility],[address] [place] [address] Lymphocytes (Bld) [#/Vol] 1.40 x10EE3/UL Normal 0.80 - 2.80 [facility] Comment on above: Performed By: #### 2 11627 #### [facility],[address] [place] [address] Lymphocytes/100 WBC (Bld) 13.4 % Low 20.0 - 45.0 [facility] Comment on above: Performed By: #### 2 16607 #### [facility],[address] [place] [address]27 MANUAL DIFF N/A Normal [facility] Comment on above: Performed By: #### 2 64738 #### [facility],[address] [place] [address]951 MCH (RBC) [Entitic mass] 32 pg Normal 27 - 33 [facility] Comment on above: Performed By: #### 2 77200 #### [facility],[address] [place] [address] MCHC (RBC) [Mass/Vol] 35 X10 3 Normal 32 - 36 [facility] Comment on above: Performed By: #### 2 30528 #### [facility],[address] [place] [address] MCV (RBC) [Entitic vol] 90 fL Normal 81 - 98 [facility] Comment on above: Performed By: #### 2 10625 #### [facility],[address] [place] [address] Monocytes (Bld) [#/Vol] 0.80 x10EE3/UL Normal 0.20 - 1.00 [facility] Comment on above: Performed By: #### 2 05408 #### [facility],[address] [place] [address]694 MONOS % 7.7 % Normal 0.0 - 10.0 [facility] Comment on above: Performed By: #### 2 49682 #### [facility],[address] [place] [address] Morphology Tyrese (Bld) [Interp] N/A Normal [facility] Comment on above: Performed By: #### 2 34298 #### [facility],[address] [place] [address] Neutrophils (Bld) [#/Vol] 8.30 x10EE3/UL High 1.50 - 7.10 [facility] Comment on above: Performed By: #### 2 02969 #### [facility],[address] [place] [address] Neutrophils/100 WBC (Bld) 78.6 % High 46.0 - 76.0 [facility] Comment on above: Performed By: #### 2 26536 #### [facility],[address] [place] [address] Platelet mean volume (Bld) [Entitic vol] 8.2 fL Normal 6.4 - 10.5 [facility] Comment on above: Result Comment: AUTO MATED DIFFERENTIAL Performed By: #### 2 75426 #### [facility],[address] [place] [address] Platelets (Bld) [#/Vol] 123 x10EE3/UL Low 150 - 450 [facility] Comment on above: Performed By: #### 2 34024 #### [address] [address] RBC (Bld) [#/Vol] 3.67 x 10EE6/UL Low 4.50 - 6.00 [facility] Comment on above: Performed By: #### 2 67604 #### [facility],[address] [place] [address] WBC (Bld) [#/Vol] 10.6 x 10EE3/UL Normal 4.5 - 10.8 [facility] Comment on above: Performed By: #### 2 52965 #### [facility],[address] [place] [address] OPERATIVE PROCEDURESon 02-26 OPERATIVE PROCEDURES [facility] OPERATIVE REPORT NAME ACCOUNT SEX AGE ADMIT DISCHARGE PT MED. RECORD# NUMBER DATE DATE TYPE TIAN [id number] Jackie 79 02/25/19 1 FLORIN Courtney [address] ROOM: [facility] DATE OF : 1940 DICTATING PHYSICIAN: Saji Pena DATE OF SURGERY: February 25, 2019 SURGEON: Saji Pena MD RF MICROWAVE ENGINEER: Sil Wesley PA-C./JAIME Callahan student. ANESTHESIOLOGIST: Rossana [...] closure in layers. Page 1 of 3 FLORIN VARGAS Operative Report dental assistant, physician assistant refinery operator, was utilized throughout the entire procedure. She helped with patient positioning, holding of limb, holding of retractors. She helped with exposure throughout. She helped with wound closure, bandage application, and patient transfer. She was also vital in instructing the MMA FIGHTER student on assisting techniques, as well as suturing techniques. Without surgical instrument maker, surgical time would have been increased. Surgical [...] clamp was held by the surgeon, and assistant refinery operator drilled through that with 3 drill holes. [...] was holding the leg in extension, the assistant refinery operator injected the pain relieving solution carefully throughout the knee. Once that was done, tourniquet Page 2 of 3 FLORIN VARGAS Operative Report was let down when [...] skin, Steri-Strips, Mepilex dressing, SELENE hose, and Sonia wrap. He was awoken from his anesthetic, transferred back to his own bed in recovery room in satisfactory condition. We will plan to use 81 mg of aspirin twice a day for DVT prevention, Ancef for perioperative antibiotic. Medical Service will be consulted. Dictated By: Saji Pena MD 02/25/19 11:06 JOB #: [id number] Transcribed By: chanelle 02/25/19 17:38 Electronically signed by: E-SIGN DR. SAJI PENA M.D. 02/26/19 13:00 Page 3 of 3 FLORIN VARGAS Operative Report Normal [facility] URINALYSISon 02-26-2019 Bilirubin [Mass/Vol] Negative Normal NORMAL: NEGATIVE [facility] Comment on above: Performed By: #### 2 63256 #### [facility],[address] [place] [address] Blood Negative Normal NORMAL: NEGATIVE [facility] Comment on above: Performed By: #### 2 28408 #### [facility],[address] [place] [address] Clarity (U) clear Normal NORMAL: CLEAR [facility] Comment on above: Performed By: #### 2 47511 #### [facility],[address] [place] [address] Color (U) jigar Normal NORMAL: YELLOW [facility] Comment on above: Performed By: #### 2 66007 #### [facility],[address] [place] [address]4762 Glucose [Mass/Vol] NORM Normal NORMAL: NORMAL [facility] Comment on above: Performed By: #### 2 52884 #### [facility],[address] [place] [address]59 Ketone 15 Abnormal NORMAL: NEGATIVE [facility] Comment on above: Performed By: #### 2 67634 #### [facility],[address] [place] [address] 75239 Microscopic NOT Normal [facility] Comment on above: Performed By: #### 2 67020 #### [facility],[address] [place] [address] 08005 Nitrite Ql (U) Negative Normal NORMAL: NEGATIVE [facility] Comment on above: Performed By: #### 2 28910 #### [facility],[address] [place] [address] 88972 pH (Bld) 6 Normal NORMAL: 5.0-8.0 [facility] Comment on above: Performed By: #### 2 00304 #### [facility],[address] [place] [address] 90020 Protein (U) [Mass/Vol] 30 mg/dL Abnormal NORMAL: NEGATIVE [facility] Comment on above: Performed By: #### 2 23085 #### [facility],[address] [place] [address] Sp [place] 1.020 Normal NORMAL: 1.010-1.03 0 [facility] Comment on above: Performed By: #### 2 94529 #### [facility],[address] [place] [address] Specimen type Nom (Spec) Catheter Normal [facility] Comment on above: Performed By: #### 2 00090 #### [facility],[address] [place], [place] [phone] Urobilinog NORM Normal NORMAL: NORMAL [facility] Comment on above: Performed By: #### 2 80071 #### [facility],[address] [place] [address] WBC (Bld) [#/Vol] Negative Normal NORMAL: NEGATIVE [facility] Comment on above: Performed By: #### 2 84057 #### [facility],[address] [place] [address] KNEE 2 VIEWS LTon 02-25-2019 KNEE 2 VIEWS LT [place] [address] Patient: FLORIN VARGAS Phone#: : 1940 Age: 79 Gender: M Pt. Type: In Account: [id number] Location: 062 Ordering: SAJI PENA Exam Date: 02/25/2019/11:50 Family Phys: PEDRO AJac GONZALEZ Charge Code: [id number] Physician: [place] Order #: [id number] DLP Dose#: PROCEDURE: X-RAY KNEE LT 2 [...] Total knee prosthesis is present. Dictated by: Anna Marie Burgess MD on 02/25/2019 at 12:35 Approved by: Anna Marie Burgess MD on 02/25/2019 at 12:35 Normal [facility] BMP with eGFRon 02-07-2019 Age - Reported 79 years Normal [facility] Comment on above: Performed By: #### 2 84648 #### [facility],[address] [place] [address] 29413 Anion gap [Moles/Vol] 13 mmol/L Normal 10 - 20 [facility] Comment on above: Performed By: #### 2 42295 #### [facility],[address] [place] [address] 90836 Calcium [Mass/Vol] 10.0 mg/dL Normal 8.6 - 10.2 [facility] Comment on above: Performed By: #### 2 04871 #### [facility],[address] [place] [address] 87010 Chloride [Moles/Vol] 102 mmol/L Normal 98 - 107 [facility] Comment on above: Performed By: #### 2 99311 #### [facility],[address] [place] [address] 48093 CO2 [Moles/Vol] 25.7 mmol/L Normal 21.0 - 31.0 [facility] Comment on above: Performed By: #### 2 65199 #### [facility],[address] [place] [address] 41926 Creatinine [Mass/Vol] 1.2 mg/dL Normal 0.7 - 1.3 [facility] Comment on above: Performed By: #### 2 26650 #### [address] [address] GFR/1.73 sq M predicted among non-blacks MDRD (S/P/Bld) [Vol rate/Area] 58 ML/MINUTE Low 60 - 999 [facility] Comment on above: Performed By: #### 2 62923 #### [facility],[address] [place] [address] 86816 GFR/1.73 sq M predicted among non-blacks MDRD (S/P/Bld) [Vol rate/Area] Normal [facility] Comment on above: Result Comment: BASI C METABOLIC PANEL Performed By: #### 2 46133 #### [facility],[address] [place] [address] 25924 GFR/1.73 sq M predicted among non-blacks MDRD (S/P/Bld) [Vol rate/Area] mL/min/{1.73_m2} Normal 60 - 999 [facility] Comment on above: Result Comment: ACCO RDING TO THE NATIONAL KIDNEY DISEASE EDUCATION PROGRAM(NKDE), A NORMAL eGFR IS A VALUE GREATER THAN OR EQUAL TO 60 ML/MIN/1.73 SQ METERS. CHRONIC KIDNEY DISEASE: <60mL/MIN/1.73 SQ METERS KIDNEY FAILURE: <15mL/MIN/1.73 SQ METERS THIS TEST SHOULD ONLY BE USED FOR PATIENTS 18 YEARS OF AGE AND OLDER. Performed By: #### 2 06600 #### [facility],[address] [place] [address] 29994 Glucose [Mass/Vol] 93 mg/dL Normal 74 - 106 [facility] Comment on above: Performed By: #### 2 65913 #### [facility],[address] [place] [address] 26247 Potassium [Moles/Vol] 4.5 mmol/L Normal 3.5 - 5.1 [facility] Comment on above: Performed By: #### 2 92848 #### [facility],[address] [place] [address] 39934 Sodium [Moles/Vol] 136 mmol/L Normal 136 - 145 [facility] Comment on above: Performed By: #### 2 14305 #### [facility],[address] [place] [address] 68030 Urea nitrogen [Mass/Vol] 35 mg/dL High 6 - 20 [facility] Comment on above: Performed By: #### 2 24149 #### [facility],[address] [place] [address] CBC (NO DIFF)on 02-07-2019 CBC (NO DIFF) Normal [facility] Comment on above: Result Comment: CBC( WITHOUT DIFFERENTIAL) Performed By: #### 2 06480 #### [facility],[address] [place] [address] Erythrocyte distribution width (RBC) [Ratio] 14.0 % Normal 12.0 - 15.6 [facility] Comment on above: Performed By: #### 2 14006 #### [facility],[address] [place] [address] Hematocrit (Bld) [Volume fraction] 40.3 % Normal 40.0 - 52.0 [facility] Comment on above: Performed By: #### 2 21717 #### [place] [address] Hemoglobin (Bld) [Mass/Vol] 13.8 g/dL Normal 13.0 - 17.5 [facility] Comment on above: Performed By: #### 2 52458 #### [facility],[address] [place], [place] [address] MCH (RBC) [Entitic mass] 31 pg Normal 27 - 33 [facility] Comment on above: Performed By: #### 2 15521 #### [facility],[address] [place], [place] [phone] MCHC (RBC) [Mass/Vol] 34 X10 3 Normal 32 - 36 [facility] Comment on above: Performed By: #### 2 89172 #### [place] [phone] MCV (RBC) [Entitic vol] 90 fL Normal 81 - 98 [facility] Comment on above: Performed By: #### 2 54684 #### [facility],[address],[place] [address] Platelet mean volume (Bld) [Entitic vol] 8.7 fL Normal 6.4 - 10.5 [facility] Comment on above: Performed By: #### 2 20705 #### [facility],[address] [place] [address] 84530 Platelets (Bld) [#/Vol] 155 x10EE3/UL Normal 150 - 450 [facility] Comment on above: Performed By: #### 2 34969 #### [facility],[address] [place] [address] 34276 RBC (Bld) [#/Vol] 4.46 x 10EE6/UL Low 4.50 - 6.00 [facility] Comment on above: Performed By: #### 2 67797 #### [facility],[address] [place] [address] 21712 WBC (Bld) [#/Vol] 6.7 x 10EE3/UL Normal 4.5 - 10.8 [facility] Comment on above: Performed By: #### 2 10075 #### [facility],[address] [place] [address] 73793 CHEST 2 VIEWSon 02-07-2019 CHEST [address] [address] Patient: FLORIN VARGAS Phone#: : 1940 Age: 79 Gender: M Pt. Type: Out Account: [id number] Location: Ordering: SAJI PENA Exam Date: 02/07/2019/10:51 Family Phys: PEDRO GONZALEZ Charge Code: [id number] Physician: [place] Order #: [id number] DLP Dose#: PROCEDURE: X-RAY CHEST 2 VIEWS [...] Negative. CONCLUSION: No acute disease. Dictated by: ANNA MARIE MARINO on 02/07/2019 at 11:05 Approved by: ANNA MARIE MARINO on 02/07/2019 at 11:05 Normal [facility] CT LOWER EXTREMITY LT WOon 0 01-11-2019 CT LOWER EXTREMITY LT WO [place] [address] Patient: FLORIN VARGAS Phone#: : 1940 Age: 78 Gender: M Pt. Type: Out Account: [id number] Location: Ordering: SAJI PENA Exam Date: 01/11/2019/8:24 Family Phys: PEDRO GONZALEZ Charge Code: [id number] Physician: [place] Order #: [id number] DLP Dose#: PROCEDURE: CT LOWER EXTREMITY LT [...] Report - Page 2 of 2 Patient: FLORIN VARGAS. Phone#: : 1940 Age: 78 Gender: M Pt. Type: Out Account: [id number] Location: Ordering: SAJI PENA Exam Date: 01/11/2019/8:24 Family Phys: PEDRO GONZALEZ Charge Code: [id number] Physician: [place] Order #: [id number] DLP Dose#: 3. An 11 mm loose body is present superior to the patella. Several small bony fragments are noted adjacent to the patella and may be the result of remote avulsions versus additional loose bodies. Dictated by: Anna Marie Burgess MD on 01/11/2019 at 9:42 Approved by: Anna Marie Burgess MD on 01/11/2019 at 9:42 [facility] 03-15-2018 [facility] Telephone (HVICTR) -------FLORIN VARGAS ([id number]) 1940 MDate Time Provider Department03/15/18 [place] HVICT[facility] During your visit today, we recorded the following information about you:Sofia Nieto, RN, RN 03/15/2018 10:36 AM Signed [facility] Contact Center Inbound Phone EncounterDATE of SERVICE: 03/15/2018TIME of SERVICE: 10:34 AMStatus: Non-urgent, needs attentionService/Provider: Farooq Ray MDReason for call: Follow-up AppointmentContact information: [phone]: [facility]: Spouse calling post discharge line. States follow up appt for here [facility]. [facility] States pt is doing really well. Can be reached at the # listed above.Sofia Nieto RNDate of Resolution: 03/15/2018Time of Resolution 10:34 Mark Dominguez [employer].JIMENA 03/15/2018 3:30 PM AddendumPT states that his breathing is a lot betterHe has some mild dizziness after taking the diureticHe remains stableHe will follow up locally on 03/21/2018Allergies As of Date: 03/15/2018 Noted Allergy OrckdwlxBNQQRGP-DJD-KZA REDUCTASE INHIBIT*12/29/2017 5 - Intolerance Comments: Statins caused myalgias, couldn't talk, affected my kidneysDate Reviewed: 03/08/2018Reviewed by: Quynh CareyRn) SEBASTIAN Tong - Fully AssessedReason for Visit: Post Dc Program Call - Needs Attn [[id number]]Prescriptions as of 03/15/2018 Sig: LISINOPRIL 2.5 MG [...] failure) (HCC) [I50.9] INVALID FOR* Status:Closed by SOFIA NIETO on 03/15/18 Normal [facility] APTTon 03-08-2018 aPTT Coag time (Bld) 26.2 s Normal 23.0-32.4 [facility] Comment on above: Result Comment: Unfr actionated [...] laboratory APTT reagent in use throughout the [facility]. Performed By: #### P T, PTT, CBC, BMP, MG1, TSH, HBA1C ####[address] [phone] Basic Metabolic Panlon 03-08 Anion gap 3 molar conc 16 mmol/L Normal 9-18 [facility] Comment on above: Performed By: #### P T, PTT, CBC, BMP, MG1, TSH, HBA1C ####[address] [phone] Calcium mass conc 9.1 mg/dL Normal 8.5-10.2 [facility] Comment on above: Performed By: #### P T, PTT, CBC, BMP, MG1, TSH, HBA1C ####[address] [phone] Chloride molar conc 99 mmol/L Normal 97-105 [facility] Comment on above: Performed By: #### P T, PTT, CBC, BMP, MG1, TSH, HBA1C ####[address] [phone] CO2 molar conc 20 mmol/L Low 22-30 [facility] Comment on above: Performed By: #### P T, PTT, CBC, BMP, MG1, TSH, HBA1C ####[address] [phone] Creatinine mass conc 1.23 mg/dL High 0.73-1.22 [facility] Comment on above: Performed By: #### P T, PTT, CBC, BMP, MG1, TSH, HBA1C ####[facility] [place], [place] [phone] eGFR- Amer. >60 Normal [facility] Comment on above: Performed By: #### P T, PTT, CBC, BMP, MG1, TSH, HBA1C ####[facility] [place] [address] [phone] GFR/1.73 sq M predicted among non-blacks MDRD vol rate/area (S/P/Bld) 57 . Normal [facility] Comment on above: Result Comment: eGFR (Estimated [...] T, PTT, CBC, BMP, MG1, TSH, HBA1C ####[address] [phone] Glucose mass conc 92 mg/dL Normal 74-99 [facility] Comment on above: Result Comment: The [place] Diabetes Association (ADA) provides guidance for cutoff [...] Standards of Medical Care in Diabetes 2016, [place] Diabetes Association. Diabetes Care. 2016.39(Suppl 1). Performed By: #### P T, PTT, CBC, BMP, MG1, TSH, HBA1C ####[facility] [address] [place], [place] [phone] Potassium molar conc 3.9 mmol/L Normal 3.7-5.1 [facility] Comment on above: Performed By: #### P T, PTT, CBC, BMP, MG1, TSH, HBA1C ####[facility] [place], [place] [phone] Sodium molar conc 135 mmol/L Low 136-144 [facility] Comment on above: Performed By: #### P T, PTT, CBC, BMP, MG1, TSH, HBA1C ####[place] [address] [place], [place] [phone] Urea nitrogen mass conc 22 mg/dL Normal 9-24 [facility] Comment on above: Performed By: #### P T, PTT, CBC, BMP, MG1, TSH, HBA1C ####[facility] [place], [place] [phone] CASE MANAGEMon 03-08-2018 CASE MANAGEM HNO ID: [id number] thor: SHARON Mora Rnervice: Care ManagementAuthor Type: Registered NurseType: Porfirio Mgt Progress NoteFiled: 03/08/2018 1:57 PMNote Text:CARE MANAGEMENT PROGRESS NOTESERVICE DATE: 03/08/2018SERVICE TIME: 1:56 PM LOS: 1 dayPatient listed as self pay. Message left for [facility] rep, Manju Martinez [phone] to screen patient.SIGNATURE: Kiara Skinner RN PATIENT NAME: Florin VargasDATE: March 08, 2018 : 1:56 PM PAGER/CONTACT #: [phone] Normal [facility] CASE MGT INIT ASSESon 2017 CASE MGT INIT ASSES HNO ID: [id number] thor: SHARON Mora Rnervice: Care ManagementAuthor Type: Registered NurseType: Care Mgt Initial AssessmentFiled: 03/08/2018 9:47 AMNote Text:CARE MANAGEMENT: ASSESSMENT AND DISCHARGE PLANSERVICE DATE: 03/08/2018SERVICE TIME: 9:39 [facility]:Pedro Gonzalez [facility]: [phone] STATUS: InpatientMEDICAL:Patient/Re presentative Stated Goals:To return home [...] Admission: NoneHas the Patient Been in a [facility] in the Past 30 days? NoSOCIAL:Living Arrangement: HomeLives With: SpouseFinancial Resources: Retired and AmishPrimary Contact: Extended Emergency Contact InformationPrimary Emergency Contact: Rachel Vargas Znoarrqk: SonSupportive: YesOther Important Patient Contacts: NoneCaregiver Assessment:Caregiver [...] - 0I feel financially burdened by my vee-rf-qphbzi expenses for myprescription medication: Disagree completely - [...] NoneFREEDOM OF CHOICE EXPLAINED:N/APOTENTIAL TRANSITION PLANSTo Be Vdbetyekse44 year old male from [place], [place] admitted with CHF exacerbation.Lives with family, independent with ADL/IADL care prior to admission. [facility] used. CM role explained. Has friend that will transport him home.Basic discharge needs at this time. Will continue to assess for anyevolving needs and plan accordingly.SIGNATURE: Kiara Skinner RN PATIENT NAME: Florin VargasDATE: March 08, 2018 : 9:39 AM PAGER/CONTACT #: [phone] Normal [facility] CBCon 03-08-2018 Absolute nRBC <0.01 Normal <0.01 [facility] Comment on above: Performed By: #### P T, PTT, CBC, BMP, MG1, TSH, HBA1C ####[place] [phone] Erythrocyte distribution width Auto Ratio (RBC) 14.1 % Normal 11.5-15.0 [facility] Comment on above: Performed By: #### P T, PTT, CBC, BMP, MG1, TSH, HBA1C ####[address] [phone] Hematocrit Auto Volume Fraction (Bld) 40.2 % Normal 39.0-51.0 [facility] Comment on above: Performed By: #### P T, PTT, CBC, BMP, MG1, TSH, HBA1C ####[address] [phone] Hemoglobin mass conc (Bld) 13.5 g/dL Normal 13.0-17.0 [facility] Comment on above: Performed By: #### P T, PTT, CBC, BMP, MG1, TSH, HBA1C ####[place] [address] [place] [address], [place] [phone] MCH Auto Entitic mass (RBC) 29.5 pG Normal 26.0-34.0 [facility] Comment on above: Performed By: #### P T, PTT, CBC, BMP, MG1, TSH, HBA1C ####[place] [address] [place] [address], [place] [phone] MCHC Auto mass conc (RBC) 33.6 g/dL Normal 30.5-36.0 [facility] Comment on above: Performed By: #### P T, PTT, CBC, BMP, MG1, TSH, HBA1C ####[address] [place], [place] [phone] MCV Auto Entitic volume (RBC) 88.0 fL Normal 80.0-100.0 [facility] Comment on above: Performed By: #### P T, PTT, CBC, BMP, MG1, TSH, HBA1C ####[place] [address] [place], [place] [phone] Platelet mean volume Auto Entitic volume (Bld) 10.4 fL Normal 9.0-12.7 [facility] Comment on above: Performed By: #### P T, PTT, CBC, BMP, MG1, TSH, HBA1C ####[address] [phone] Platelets Auto #/vol (Bld) 162 10*3/uL Normal 150-400 [facility] Comment on above: Performed By: #### P T, PTT, CBC, BMP, MG1, TSH, HBA1C ####[place] [address] [address], [place] [phone] RBC Auto #/vol (Bld) 4.57 10*6/uL Normal 4.20-6.00 [facility] Comment on above: Performed By: #### P T, PTT, CBC, BMP, MG1, TSH, HBA1C ####[address] [facility], [place] [phone] WBC Auto #/vol (Bld) 6.25 10*3/uL Normal 3.70-11.00 Cl [facility] Comment on above: Performed By: #### P T, PTT, CBC, BMP, MG1, TSH, HBA1C ####[facility] [place], [place] [phone] ECG COMPLETE W INTERPRETATIO Non 03-08-2018 Protein mass conc NAME : Eliseo VARGAS ONASPID : [id number] : 1940 Gender : MaleRace : CaucasianORD : [id number] Procedure Date : Mar 07 2018 22:18:11Edit Date : Mar 13 2018 14:32:53 Diagnosis:SINUS RHYTHM WITH OCCASIONAL PREMATURE VENTRICULAR COMPLEXESMINIMAL VOLTAGE CRITERIA FOR LVH, MAY BE NORMAL VARIANTINFERIOR MYOCARDIAL INFARCTION , AGE UNDETERMINEDLATERAL T WAVE ABNORMALITYABNORMAL ECGConfirmed by ANDRZEJ HAMMOND M.D. ([id number]) on 03/13/2018 2:32:49 PM Ventricular Rate : 69 BPMAtrial Rate : 69 BPMP-R Interval : 184 msQRS Duration : 86 msQ-T Interval : 420 msQTC Calculation(Bezet) : 450 msP [place] : -24 degreesR [place] : 0 degreesT [place] : 146 degrees Test Reason : Location : 353 : [id number] Overread By : ANDRZEJ HAMMOND M.D.Edited By : ANDRZEJ HAMMOND M.D.Referred By : ,Acquired by : KIDNEY,HUMAIRA Normal [facility] Hemoglobin A1con 03-08-2018 Glucose mass conc 111 mg/dL Normal [facility] Comment on above: Result Comment: eAG: (Estimated average glucose) is a calculated value from HgbA1c and is customer response representative of the average blood glucose level in the last 2-3 month period. Performed By: #### P T, PTT, CBC, BMP, MG1, TSH, HBA1C ####[place] [id number] [place], [place] [phone] Hemoglobin A1c/Hemoglobin.total mass fraction (Bld) 5.5 % Normal 4.3-5.6 [facility] Comment on above: Performed By: #### P T, PTT, CBC, BMP, MG1, TSH, HBA1C ####[place] [address] [place], [place] [phone] Lipid Panel, Basicon 03-08- 018 Cholesterol in HDL mass conc 62 mg/dL Normal >39 [facility] Comment on above: Result Comment: 40-5 9 mg/dL, Acceptable>59 mg/dL, High: Negative risk factor for coronary heart disease<40 mg/dL, Low: Positive risk factor for coronary heart disease Performed By: #### L IPB, JR ####[address] [phone] Cholesterol in LDL mass conc 166 mg/dL High <100 [facility] Comment on above: Result Comment: <100 mg/dL, Optimal 100-129 mg/dL, Near optimal/above optimal 130-159 mg/dL, Borderline high 160-189 mg/dL, High>189 mg/dL, Very highSecondary prevention optimal LDL Cholesterol levels are recommended to be < 70 mg/dL Performed By: #### L IPB, JR ####[address] [phone] Cholesterol mass conc 242 mg/dL High <200 [facility] Comment on above: Result Comment: <200 mg/dL, Desirable 200-239 mg/dL, Borderline high>239 mg/dL, High Performed By: #### L IPB, JR ####[address] [phone] Fasting Time Unknown Normal [facility] Comment on above: Performed By: #### L IPB, JR ####[address] [phone] LDL:HDL Ratio 2.68 High <2.54 [facility] Comment on above: Result Comment: Refe rence:1. National Cholesterol Education Program ATP III Guideline At-A-Glance Quick Desk Reference: National Heart, Lung, and Blood [place]. National Institutes of Health. 2001: NIH Publication No. 01-3305.2. An International Atherosclerosis Society position paper: global recommendations for the management of dyslipidemia: executive summary, Atherosclerosis. 2014: 232(2):410-413. Performed By: #### L IPB, JR ####[address] [phone] Non HDL Cholesterol 180 mg/dL High <130 [facility] Comment on above: Result Comment: <130 mg/dL, Optimal 130-159 mg/dL, Near optimal/above optimal 160-189 mg/dL, Borderline high 190-219 mg/dL, High>219 mg/dL, Very highSecondary prevention optimal non HDL Cholesterol levels are recommended to be < 100 mg/dL Performed By: #### L IPB, JR ####[address] [phone] TC:HDL Ratio 3.90 Normal <5.10 [facility] Comment on above: Performed By: #### L IPB, JR ####[address] [phone] Triglyceride mass conc 70 mg/dL Normal <150 [facility] Comment on above: Result Comment: <150 mg/dL, Normal 150-199 mg/dL, Borderline high 200-499 mg/dL, High>499 mg/dL, Very high Performed By: #### L IPB, JR ####[address] [phone] VLDL Cholesterol 14 mg/dL Normal <30 [facility] Comment on above: Performed By: #### L IPB, JR ####[address] [phone] Magnesiumon 03-08-2018 Magnesium mass conc 2.2 mg/dL Normal 1.7-2.3 [facility] Comment on above: Performed By: #### P T, PTT, CBC, BMP, MG1, TSH, HBA1C ####[address] [phone] NURSING PROGon 03-08-2018 Protein mass conc HNO ID: [id number] thor: Max (Rn) SHARON Eganervice: Cardiovascular MedicineAuthor Type: Registered NurseType: Nursing Progress NoteFiled: 03/08/2018 3:34 PMNote Text:Bedside echo with definity03/08/2018 3:34 PMOrder reviewed by nurse:yesMedications: Definity - dosage 2 ml given slow IVReaction: No Normal [facility] PT EDon 03-08-2018 PT ED HNO ID: [id number] thor: Elaina (Tech) StevieumboService: Nutrition TherapyAuthor Type: Dietetic TechnicianType: Patient EducationFiled: 03/08/2018 9:32 AMNote Text:[facility] PATIENT EDUCATIONTOPIC: Survival Skills: DietPATIENT NAME: Florin VargasMRN: [id number] DATE: March 08, 2018Diagnosis: ADULT: Heart FailureREADINESS [...] classMNT Billing Type: Routine Care/15 min 2 unitsALONZO Sanfordager: [id number] 20179:32 AM Normal [facility] Protimeon 03-08-2018 INR Coag RelTime (Bld) 1.1 {INR} Normal 0.9-1.3 [facility] Comment on above: Result Comment: Татьяна min K Antagonist (VKA) Therapeutic Range: INR 2 to 3 (Target INR of 2.5)Note: For patients treated with VKA drugs, such as warfarin, the [place] College [employer]icians 2012 Guideline recommends [...] al. Chest 2012, 141:7S-47SNishruel RA, et al. [facility] 2017, 70: 252-289 Performed By: #### P T, PTT, CBC, BMP, MG1, TSH, HBA1C ####[place] [id number] [place], [place] [phone] PT Sec 11.3 sec Normal 9.7-13.0 [facility] Comment on above: Performed By: #### P T, PTT, CBC, BMP, MG1, TSH, HBA1C ####[place] [id number] [place], [place] [phone] TSHon 03-08-2018 Thyrotropin Qn 4.700 uU/mL Normal 0.400-5.50 0 [facility] Comment on above: Performed By: #### P T, PTT, CBC, BMP, MG1, TSH, HBA1C ####[place] [address] [place], [place] [phone] Troponin Ton 03-08-2018 Troponin T.cardiac mass conc ug/L Normal 0.000-0.02 9 [facility] Comment on above: Performed By: #### L IPB, JR ####[place] [address] [address] [place] [phone] Troponin T.cardiac mass conc ug/L Normal 0.000-0.02 9 [facility] Comment on above: Performed By: #### T NT ####[place] [phone] Basic Metabolic Panlon 03-07 Anion gap 3 molar conc 13 mmol/L Normal 9-18 [facility] Comment on above: Performed By: #### C BCDIF, BMP, JR ####[address] [phone] Calcium mass conc 9.4 mg/dL Normal 8.5-10.2 [facility] Comment on above: Performed By: #### C BCDIF, BMP, JR ####[address] [place] [phone] Chloride molar conc 102 mmol/L Normal 97-105 [facility] Comment on above: Performed By: #### C BCDIF, BMP, JR ####[address] [phone] CO2 molar conc 24 mmol/L Normal 22-30 [facility] Comment on above: Performed By: #### C BCDIF, BMP, JR ####[place] [address] [address] [place] [phone] Creatinine mass conc 1.04 mg/dL Normal 0.73-1.22 [facility] Comment on above: Performed By: #### C BCDIF, BMP, JR ####[place] [address] [address] [place] [phone] eGFR- Amer. >60 Normal [facility] Comment on above: Performed By: #### C BCDIF, BMP, JR ####[place] [address] [address] [place] [phone] GFR/1.73 sq M predicted among non-blacks MDRD vol rate/area (S/P/Bld) mL/min/{1.73_m2} Normal [facility] Comment on above: Result Comment: eGFR (Estimated [...] reflect actual GFR. Performed By: #### C BCDICK REGALADO, JR ####[facility] [place], [place] [phone] Glucose mass conc 97 mg/dL Normal 74-99 [facility] Comment on above: Result Comment: The [place] Diabetes Association (ADA) provides guidance for cutoff [...] Standards of Medical Care in Diabetes 2016, [place] Diabetes Association. Diabetes Care. 2016.39(Suppl 1). Performed By: #### C BCDMITRIYFDICK, JR ####[facility] [address] [place], [place] [phone] Potassium molar conc 4.7 mmol/L Normal 3.7-5.1 [facility] Comment on above: Performed By: #### C BCDIFDICK, JR ####[facility] [place], [place] [phone] Sodium molar conc 139 mmol/L Normal 136-144 [facility] Comment on above: Performed By: #### C BCDMITRIYF, BMP, JR ####[address] [phone] Urea nitrogen mass conc 22 mg/dL Normal 9-24 [facility] Comment on above: Performed By: #### C BCDIF, BMP, JR ####[place] [phone] CBC and Differentialon 03-07 Abs Baso 0.03 k/uL Normal <0.11 [facility] Comment on above: Performed By: #### C BCDIF, BMP, JR ####[place] [phone] Abs Le[place]au 0.69 k/uL Normal <0.87 [facility] Comment on above: Performed By: #### C BCDIF, BMP, JR ####[place] [phone] Abs Neut 3.08 k/uL Normal 1.45-7.50 [facility] Comment on above: Performed By: #### C BCDIF, BMP, JR ####[address]CAndrea [address] [phone] Absolute nRBC <0.01 Normal <0.01 [facility] Comment on above: Performed By: #### C BCDIF, BMP, JR ####[place] [address] [address] [place] [phone] Basophils/100 WBC Auto (Bld) 0.5 % Normal [facility] Comment on above: Performed By: #### C BCDIF, BMP, JR ####[address]rea [address] [phone] DTYPE Auto Diff Normal [facility] Comment on above: Performed By: #### C BCDIF BMP, JR ####[facility] AveClevelandRobert V[place] [phone] Eosinophils Auto #/vol (Bld) 0.08 10*3/uL Normal <0.46 [facility] Comment on above: Performed By: #### C BCDIF, BMP, JR ####[facility]ClevelandRobert V[place] [phone] Eosinophils/100 WBC Auto (Bld) 1.2 % Normal [facility] Comment on above: Performed By: #### C BCSABINE BMP, JR ####[place] [address] [address]ClevelandRobert [place] [phone] Erythrocyte distribution width Auto Ratio (RBC) 13.8 % Normal 11.5-15.0 [facility] Comment on above: Performed By: #### C BCDMITRIYF BMP, JR ####[place] [address] [address]ClevelLuke [place] [phone] Hematocrit Auto Volume Fraction (Bld) 40.1 % Normal 39.0-51.0 [facility] Comment on above: Performed By: #### C BCDMITRIYF BMP, JR ####[facility]ClevelandRobert [place] [phone] Hemoglobin mass conc (Bld) 13.7 g/dL Normal 13.0-17.0 [facility] Comment on above: Performed By: #### C BCDIF BMP, JR ####[facility]ClevelandRobert [place] [phone] Lymphocytes Auto #/vol (Bld) 2.58 10*3/uL Normal 1.00-4.00 [facility] Comment on above: Performed By: #### C BCDIF, BMP, JR ####[place] [address] [address]leveland[address] [place] [phone] Lymphocytes/100 WBC Auto (Bld) 39.9 % Normal [facility] Comment on above: Performed By: #### C BCDICK REGALADO, JR ####[place] [address] [place] [address] [place] [phone] MCH Auto Entitic mass (RBC) 29.8 pG Normal 26.0-34.0 [facility] Comment on above: Performed By: #### C BCDICK REGALADO, JR ####[place] [address] [address] [place] [phone] MCHC Auto mass conc (RBC) 34.2 g/dL Normal 30.5-36.0 [facility] Comment on above: Performed By: #### C DICK LEE, JR ####[place] [address] [address] [place] [phone] MCV Auto Entitic volume (RBC) 87.4 fL Normal 80.0-100.0 [facility] Comment on above: Performed By: #### C BCDICK REGALADO, JR ####[place] [address] [address] [place] [phone] Monocytes/100 WBC Auto (Bld) 10.7 % Normal [facility] Comment on above: Performed By: #### C BCDICK REGALADO, JR ####[place] [address] [address] [place] [phone] Neutrophils/100 WBC Auto (Bld) 47.7 % Normal [facility] Comment on above: Performed By: #### C BCDICK REGALADO, JR ####[place] [address] [place] [phone] NRBCs 0.0 /100 WBC Normal 0 [facility] Comment on above: Performed By: #### C BCDICK REGALADO, JR ####[place] [address] [place] [address] AveClevelLuke [place]ille [phone] Platelet mean volume Auto Entitic volume (Bld) 9.9 fL Normal 9.0-12.7 [facility] Comment on above: Performed By: #### C BCDIF, BMP, JR ####[facility] [place], [place] [phone] Platelets Auto #/vol (Bld) 152 10*3/uL Normal 150-400 [facility] Comment on above: Performed By: #### C BCDIF, BMP, JR ####[facility] [place], [place] [phone] RBC Auto #/vol (Bld) 4.59 10*6/uL Normal 4.20-6.00 [facility] Comment on above: Performed By: #### C BCDIF, BMP, JR ####[facility] [place], [place] [phone] WBC Auto #/vol (Bld) 6.47 10*3/uL Normal 3.70-11.00 [facility] Comment on above: Performed By: #### C BCDIF, BMP, JR ####[facility] [place], [place] [phone] CT CHEST W IVCON PEon 2017 CT CHEST W IVCON PE * * *Final Report* * *DATE OF EXAM: Mar 07 2018 5:00PM [facility] 0540 - CT CHEST W IVCON PE / REASON: PE suspected, intermediate prob, positive D-dimer * * * * Physician Interpretation * * * * EXAMINATION: CHEST CT WITH CONTRAST (PULMONARY EMBOLISM PROTOCOL)CLINICAL HISTORY: PE suspected, intermediate prob, positive D-dimerTechnique: Spiral CT acquisition of the chest from the thoracic inlet to the upper abdomen following IV contrast.MQ: CTCPEMC_4Contrast: 125 mL Omnipaque 350 IVCT Dose-Length Product: [...] size. Changes from coronary artery bypass grafting. [place] triple-vessel coronary artery atherosclerotic calcifications are noted, [...] CRUZ MD on Mar 07 2018 6:04PM [id number] Normal [facility] D dimeron 03-07-2018 D dimer 2100 ng/mL FEU High <500 [facility] Comment on above: Result Comment: The D-dimer [...] of 41.7%. Performed By: #### D DMER ####[facility] [address] [place], [place] [phone] ED NOTEon 03-07-2018 ED NOTE HNO ID: [id number] Author: Avila Baum, SEBASTIAN Service: Emergency Medicine Author Type: Registered Nurse Type: ED Notes Filed: 03/07/2018 8:48 PM Note Text: Report called to Quynh CORTES. Bed ready. Normal [facility] ED NOTE HNO ID: [id number] thor: Avila Baum, SHARONervice: Emergency MedicineAuthor Type: Registered NurseType: ED NotesFiled: 03/07/2018 7:34 PMNote Text:Assumed care of pt. Pt presenting to ED with c/o SOB. Pt states We wenton a 3 week trip to [place], and we tried to buy oxygen to help mandy. When I got back I just could not catch my breath. Pt denies anyCP, AGUAYO, dizziness, SOB, or lightheadedness at this time. Pt able toambulate to bathroom, without becoming SOB. Pt on monitor, NSR 84. Pulseox 98% on RA. NAD noted. ABCs intact. Safety checks performed. Willcontinue to monitor. Normal [facility] ED NOTE HNO ID: [id number] Author: Warren (Medic) Taylor Cuenca Service: Emergency Medicine Author Type: Retail Business Manager and Long Term Care Phlebotomist Type: ED Notes Filed: 03/07/2018 2:26 PM Note Text: Labs were drawn and sent. Normal [facility] ED NOTE HNO ID: [id number] thor: Micaela (Rn) SHARON Salaservice: Emergency MedicineAuthor [...] non-tender, SAMUEL's x 4 and followscommands. Normal [facility] ED NOTE HNO ID: [id number] Author: Nancy CareyRn) SEBASTIAN Fountain Service: (none) Author Type: Registered Nurse Type: ED Notes Filed: 03/07/2018 2:06 PM Note Text: Bed: E12-18 Expected date: Expected time: Means of arrival: Comments: Normal [facility] ED PROV NOTEon 03-07-2018 Protein mass conc HNO ID: [id number] thor: GENE Navaervice: Emergency MedicineAuthor Type: PhysicianType: ED Provider NotesFiled: 03/08/2018 12:47 AMNote Text:ED Provider NotePatient Name: Florin VargasMRN: [id number] DATE: 03/07/18HistoryPatient presents with:Shortness of Breath: h/o aortic valve replacement December. Had three weekroad trip, now having SOB. On ASA and Akwnsl45 yo M with PMH including CAD s/p CABGs, Aortic Stenosis s/p TAVR 12/29,HL presenting to the ED today with SOB. Patient was doing well after hissurgery, no CP or SOB. Took a trip to [place] and developed SOB whilethere. Notes [place], and more noticeable shortness or breath when he istrying to sleep, no change if he is lying flat or sitting up though.States he developed chest pain while [place] with holding pressure over [...] No- Sexual activity: Not on fileALLERGIESAllergen Reactions- Uvzvrtg-Zbx-Ehl Red* Intolerance Statins caused myalgias, couldn't talk, [...] rhythm and intact distal pulses.No murmur heard.Loud S0Bunzdnuqv/Chest: Effort normal and breath sounds normal. He [...] Index[DS] ANGEL Sanfordlinical Impressions as of Mar 085Acute pulmonary edema (HCC)MDM / Disposition / PlanMDMSIGNATURE: MANJU LIND DOEKG Interpretation:RHYTHM: Normal sinus rhythm at 75 beats per minute with 1 PVCAXIS: Normal axisINTERVALS: Normal IL intervalQRS COMPLEX: NormalST SEGMENT: Normal ST-T segmentsQT INTERVAL: NormalCOMPARED WITH PRIOR: Now with PVC, otherwise similarI saw and evaluated the patient. Discussed with the resident and agreewith resident's findings and plan as documented in the resident's notewith the following corrections/addenda:Mr. Vargas is a 78yo Episcopal M with a h/o CAD s/p CABG (GRAJEDA-LAD) [id number] and redo CABG (2001) with severe s/p TAVR (12/27/17) who comes infor new [place] and PND with 1-pillow orthopnea and associated exertionallightheadedness and nausea that he first noted after taking a 3-day bustrip to [place]. He did not notice and LE swelling or pain during histrip or preceding his symptoms and denies any associated chestpain/palpitations. He denies any personal or family history of clottingdisorders and reports full compliance with his DAPT (clopidogrel/ASA). Heotherwise has had no recent infectious sx.He initially attributed his symptoms to the elevation ([place],where [place] was, is at an elevation of 6000 ft) and acquired supplemental OTCO2 and reports having some improvement in his symptoms, but he has notreturn to his baseline exercise tolerance since returning to [place]. He deniesassociated LE swelling, abdominal distension or changes in appetite/POintake. His documented weight today is 180lbs, which his c/w hisdocumented weight of 179lbs at his 01/12 post-TAVR cardiology appointment.His 1 month post-TAVR echo (in [place]) was reportedly unchanged from hisimmediate post-TAVR echo.OE: pleasant and non-toxic Episcopal M appearing younger than stated agerrr, [id number] ctab with some scattered bronchiolitic breath sounds [...] in the AM.Britni Chowdhury MD03/08/18 0047 Normal [facility] EKG1on 03-07-2018 Protein mass conc NAME : Eliseo VARGAS ONASPID : [id number] : 1940 Gender : MaleRace : CaucasianORD : Procedure Date : Mar 07 2018 14:04:58Edit Date : Mar 11 2018 00:09:39 Diagnosis:SINUS RHYTHM WITH OCCASIONAL PREMATURE VENTRICULAR COMPLEXESMINIMAL VOLTAGE CRITERIA FOR LVH, MAY BE NORMAL VARIANTCANNOT EXCLUDE ANTERIOR MYOCARDIAL INFARCTION , AGE UNDETERMINEDABNORMAL ECGNOTE: PLEASE SEE PHYSICIAN'S NOTE FROM EMatilda VISITNOTE: PLEASE SEE PHYSICIAN'S NOTE FROM Sharif VISITReconfirmed by GABINO Prado, PEDRO ([id number]), supervising editor trailer MARLENA YOUNGER ([id number]) on 03/11/2018 12:09:29 AM Ventricular Rate : 75 BPMAtrial Rate : 75 BPMP-R Interval : 198 msQRS Duration : 94 msQ-T Interval : 414 msQTC Calculation(Bezet) : 462 msP [place] : 19 degreesR [place] : -15 degreesT [place] : 113 degrees Test Reason : Location : 2 : EDNS Overread By : GABINO Prado,ERICEdited By : ROMELIA YOUNGERITReferred By : ,Acquired by : Jonel CONDON [facility] HISTORY PHYSICALon 8 HISTORY PHYSICAL HNO ID: [id number] thor: Ladarius Grajeda: Cardiovascular MedicineAuthor Type: PhysicianType: HANDPFiled: 03/08/2018 9:15 AMNote Text: HEART and VASCULAR INSTITUTECARDIOVASCULAR MEDICINE HISTORY AND PHYSICAL (Template ID [id number])Florin [id number] SERVICE: Cardiovascular Medicine: InterventionDATE OF ADMISSION: 03/07/2018CHIEF COMPLAINTCHF exacerbationHISTORY OF PRESENT ILLNESSFlorin Vargas is a 78 year old male who presents with progressiveshortness of breath to ED.PMH- CABG 1995 [facility]-LAD ([facility]); redo CAB 2001 [facility]- severe s/p TAVR 26 mm Ewards on 12/27/[address] Villa.- osital, proximal and mid-distal RCA stenting on 11/22/2017 with 4.0/12 mmsynergy EES, 4.0/38 mm synergy ees and 3.5/[address] Cancino- HTN- HLDHe was doing well post TAVR. Returned home two days after TAVR on 12/29and was feeling well enough to travel to [place] with his family.He left for [place] on the 19 of February and returned on the Februaryvia tour bus. He had difficilty breathing starting [...] 100% on 2L NC upon arrival to EDCT PE scan with no acute pulmonary embolus. [...] (radiology procedure) INTRAVENOUS DIRECTED PRNALLERGIESALLERGIESAllerg en Reactions- Yomnojw-Rwo-Gwb Red* Intolerance Statins caused myalgias, couldn't talk, affected my kidneysREVIEW OF XSIVIQP62 point negative as per hpiPHYSICAL EXAMBP 152/74 [...] (mg/dL)Date Value12/29/2017 68 No results found for: TUV2TIDO:NSR with one PVC. No ST or T [...] back with a 4.0 mm NC)ASSESSMENT AND PLANMrJac Vargas is a 77 year old male with a history of hypertension,hyperlipidemia , coronary artery disease s/p CABG 1995 GRAJEDA-LAD?([facility]), [facility]) and severe aortic stenosis,for pre-op TAVR with [...] to be discussed with José Manuel Ascencio [id number] (please see below for after hours communication)03/07/20188:34 PMFor communication after 5 pm on weekdays and after 12 pm on weekends,please page the following:- Clinical Cardiology patients on all floors: page [phone]- Other Cardiology patients on J5 and J6: page [phone]- Other Cardiology patients on J7 and J8: page [phone] STAFF PHYSICIAN NOTE OF PERSONAL INVOLVEMENT IN CAREMr Tian presents with heart failure after a recent [...] the nature of whichis noted above.STAFF PHYSICIAN: Ladarius Cancino, MDDATE OF SERVICE: March 08, 2018TIME OF SERVICE: 9:11 AM Normal [facility] NT Pro BNPon 03-07-2018 Protein mass conc 3139 pg/mL High <450 [facility] Comment on above: Performed By: #### N TBNP ####[facility] [address] [place], [place] [phone] NURSING PROGon 03-07-2018 Protein mass conc HNO ID: [id number] thor: Quynh (Rn) Awls, RNService: NursingAuthor Type: Registered NurseType: Nursing Progress NoteFiled: 03/08/2018 6:53 AMNote Text:Pt admittetd J53-2. Pt transferred safely. Pt AO X3. Skin assessment WNLno pressure injuries. ( SEBASTIAN layne)Pt has a abrasion to left knee. Normal [facility] PROGRESSon 03-07-2018 Protein mass conc HNO ID: [id number] thor: Bhargav (Ct) Prateek Winn: (none)Author Type: Clinical TechnicianType: Progress NotesFiled: 03/07/2018 4:55 PMNote Text: Radiology Service Progress NotePATIENT NAME: Florin VargasMRN: [id number] OF SERVICE: March 07, 2018TIME: 4:52 PMPATIENT IDENTITY VERIFICATION COMPLETED USING TWO (2) METHODS: Patientconfirmed name verbally and ID band matches..PATIENT GENDER DATA: MalePATIENT RELEVANT IMPLANT DATA REVIEWED: YesCONTRAST INDUCED NEPHROPATHY RISK FACTORS: Patient age > 60 yearsCREATININE:CreatinineD ate Value Ref Range Runrrq9403/07/2018 1.04 0.73 - 1.22 mg/dL Final01/12/2018 1.04 0.73 - 1.22 mg/dL Final12/29/2017 0.97 0.73 - 1.22 mg/dL Final eGFR-All Other RacesDate Value Ref Range Ggjqaz9903/07/2018 >60 . FinalComment:eGFR (Estimated GFR) Units of [...] actual GFR. eGFR- AmericanDate Value Ref Range Albkwc7603/07/2018 >60 Final P.O.C.T. RESULTS: N/A March 07, 2018RADIOLOGIST NOTIFIED?: AcERGIES: Reviewed and unchangedCONTRAST ALLERGY: NO.PERIPHERAL IV ACCESS: Ambulatory: IV type: Existing peripheral IVutilized, Site assessment: Clean,Dry and Intact, Site disposition Left infor next appointmentRADIOLOGY DEPARTMENT: CT; Exam(s) Completed: PE StudySIGNED BY: RT Alessandro(R)(CT)March 07, 2018 4:52 PM Normal [facility] Protein mass conc HNO ID: [id number] thor: Martha (Rt) Mauricevice: RadiologyAuthor Type: TechnicianType: Progress NotesFiled: 03/07/2018 2:36 PMNote Text: Radiology Service Progress NotePATIENT NAME: Florin VargasMRN: [id number] OF SERVICE: March 07, 2018TIME: 2:36 PMPATIENT IDENTITY VERIFICATION COMPLETED USING TWO (2) METHODS: Patientconfirmed name verbally and ID band matches..PATIENT GENDER DATA: MalePATIENT RELEVANT IMPLANT DATA REVIEWED: Not ApplicableRADIOLOGY DEPARTMENT: General X-ray: Exam(s) Completed: Chest X-RayPERIPHERAL IV DATA: Not applicableSIGNED BY: RT ZaneJuly 2017 2:36 PM Normal [facility] Troponin Ton 03-07-2018 Troponin T.cardiac mass conc ug/L Normal 0.000-0.02 9 [facility] Comment on above: Performed By: #### C BCDIF, BMP, JR ####[facility] [address] [place], [place] [phone] XR CHEST 2V FRONTAL/LATon XR CHEST 2V [...] cardiomediastinal silhouette. There is aortic atherosclerotic calcification.Other: .Oil Field Tester: JOSE ARMANDO Transcribe Date/Time: Mar 07 2018 2:41PDictated by : NALINI FOSS MDThis examination was interpreted and the report reviewed and electronically signed by: NALINI FOSS MD on Mar 07 2018 2:44PM [id number] Normal [facility] 03-06-2018 CNPN Telephone (HVICTR) -------FLORIN VARGAS ([id number]) 1940 MDate Time Provider Department03/06/18 LADARIUS CANCINO ICTR During your visit today, we recorded the following information about you:Sofia Nieto RN, RN 03/06/2018 4:49 PM Signed [facility] Contact Center Inbound Phone EncounterDATE of SERVICE: 03/06/2018TIME of SERVICE: 4:46 PMStatus: Non-urgent, needs attentionService/Provider: Interventional Ladarius Cancino MDReason for call: Shortness of BreathContact information: [phone]: Sent to [facility]: calling post discharge line. States they took a trip to [place]02/19-03/03. Ever since then, he has has had issues with SOB on exertion/walkingaround. Request to be contacted at # listed above.Sofia Nieto RNDate of Resolution: 03/06/2018Time of Resolution 4:46 PMChantale Che PA-C 03/06/2018 5:56 PM SignedSeen by Bhargav Becerril PA-C 01/12/2018 s/p TAVR was SOB at that time which was hisbaseline. He was going to see his local exercise instruct in a month with an echo.I was not able to reach the pt or his at number below.Mandi Bartlett RN 03/07/2018 11:28 AM SignedPatient is requesting a call back and can be reached at [phone] Centergermaine Bartlett, Em Sky PA-C 03/07/2018 3:37 PM SignedPt is in the ER at this time being evaluated for the dyspnea.Allergies As of Date: 03/06/2018 Noted Allergy PyvkpjviHPTAGVV-CRT-SBX REDUCTASE INHIBIT*12/29/2017 5 - Intolerance Comments: Statins caused myalgias, couldn't talk, affected my kidneysDate Reviewed: 12/29/2017Reviewed by: Debbie CareyRn) SEBASTIAN Almeida - Fully AssessedReason for Visit: Post Dc Program Call - Needs Attn [[id number]]Prescriptions as of 03/06/2018 Sig: EZETIMIBE 10 MG [...] stool [K92.1] INVALID FOR* More... Status:Closed by SOFIA NIETO on 03/06/18 Normal [facility] Basic Metabolic Panlon 01-12 Anion gap 3 molar conc 11 mmol/L Normal - [facility] Comment on above: Performed By: #### C BC, BMP, PSA ####[facility] [address] [place], [place] [phone] Calcium mass conc 9.7 mg/dL Normal 8.5-10.2 [facility] Comment on above: Performed By: #### C BC, BMP, PSA ####[facility] [address] AveCTerry, [place] [phone] Chloride molar conc 104 mmol/L Normal 97-105 [facility] Comment on above: Performed By: #### C BC, BMP, PSA ####[facility] [address]CAndrea [place] [phone] CO2 molar conc 24 mmol/L Normal 22-30 [facility] Comment on above: Performed By: #### C BC, BMP, PSA ####[facility] [place] [phone] Creatinine mass conc 1.04 mg/dL Normal 0.73-1.22 [facility] Comment on above: Performed By: #### C BC, BMP, PSA ####[place] [address] [address] [place] [phone] eGFR- Amer. >60 Normal [facility] Comment on above: Performed By: #### C BC, BMP, PSA ####[place] [address] [address], [place] [phone] GFR/1.73 sq M predicted among non-blacks MDRD vol rate/area (S/P/Bld) mL/min/{1.73_m2} Normal [facility] Comment on above: Result Comment: eGFR (Estimated [...] reflect actual GFR. Performed By: #### C BC, BMP, PSA ####[facility] [place] [address] [phone] Glucose mass conc 89 mg/dL Normal 74-99 [facility] Comment on above: Result Comment: The Ch[place] Diabetes Association (ADA) provides guidance for cutoff [...] Standards of Medical Care in Diabetes 2016, [place] Diabetes Association. Diabetes Care. 2016.39(Suppl 1). Performed By: #### C BC, BMP, PSA ####[facility] [place], [place] [phone] Potassium molar conc 5.1 mmol/L Normal 3.7-5.1 [facility] Comment on above: Performed By: #### C BC, BMP, PSA ####[facility], [place] [phone] Sodium molar conc 139 mmol/L Normal 136-144 [facility] Comment on above: Performed By: #### C BC, BMP, PSA ####[facility] [place], [place] [phone] Urea nitrogen mass conc 25 mg/dL High 9-24 [facility] Comment on above: Performed By: #### C BC, BMP, PSA ####[facility] [address] [place], [place] [phone] CBCon 01-12-2018 Absolute nRBC <0.01 Normal <0.01 [facility] Comment on above: Performed By: #### C BC, BMP, PSA ####[facility] [place], [place] [phone] Erythrocyte distribution width Auto Ratio (RBC) 13.5 % Normal 11.5-15.0 [facility] Comment on above: Performed By: #### C BC BMP, PSA ####[facility] [place] [phone] Hematocrit Auto Volume Fraction (Bld) 42.5 % Normal 39.0-51.0 [facility] Comment on above: Performed By: #### C BC BMP, PSA ####[place] [address] [place] [address] [place] [phone] Hemoglobin mass conc (Bld) 13.8 g/dL Normal 13.0-17.0 [facility] Comment on above: Performed By: #### C RADHA BMP, PSA ####[place] [address] [place] [address] [place] [phone] MCH Auto Entitic mass (RBC) 29.4 pG Normal 26.0-34.0 [facility] Comment on above: Performed By: #### C BC BMP, PSA ####[place] [address] [place] [address] [place] [phone] MCHC Auto mass conc (RBC) 32.5 g/dL Normal 30.5-36.0 [facility] Comment on above: Performed By: #### C BC BMP, PSA ####[place] [address] [place] [address] [place] [phone] MCV Auto Entitic volume (RBC) 90.4 fL Normal 80.0-100.0 [facility] Comment on above: Performed By: #### C BC BMP, PSA ####[facility] [place] [phone] Platelet mean volume Auto Entitic volume (Bld) 10.1 fL Normal 9.0-12.7 [facility] Comment on above: Performed By: #### C BC, BMP, PSA ####[place] [address] [address] [place] [phone] Platelets Auto #/vol (Bld) 182 10*3/uL Normal 150-400 [facility] Comment on above: Performed By: #### C BC, BMP, PSA ####[facility] [address], [place] [phone] RBC Auto #/vol (Bld) 4.70 10*6/uL Normal 4.20-6.00 [facility] Comment on above: Performed By: #### C BC, BMP, PSA ####[facility] [address], [place] [phone] WBC Auto #/vol (Bld) 7.36 10*3/uL Normal 3.70-11.00 [facility] Comment on above: Performed By: #### C BC, BMP, PSA ####[facility] [address] [place], [place] [phone] CNOVon 01-12-2018 CNOV Office Visit (CATHMN) -------FLORIN VARGAS ([id number]) 1940 MDate Time Provider Department01/12/18 1:00 PM BHARGAV BECERRIL) CATHMN During your visit today, we recorded the following information about you: Pulse Blood pressure Weight Height 72/minute 150/65 81.2 kg 1.676 Sharad Becerril PA-C 01/15/2018 10:02 AM SignedTransitional Care Management Progress NoteThe patients TCM visit was performed within the 14 days of discharge.Patient's Date of discharge: 12/29/17Date of initial coordinator contact after discharge: 01/01/18Discharge diagnosis: Severe aortic stenosisMedication review completed YESSENIA KimCProvider Documentation:In follow-up of hospitalization, Florin Vargas is a 77 year old malewith [...] coronary artery disease s/p CABG 1995 [place]?([facility]),redo CABG (2001 [facility]) and severe aortic stenosis, who presents today [...] PCI/ENE- Pt will follow up with local exercise instruct for 30 day visit and echo(I25.10) Coronary artery disease involving [place] coronary artery of nativeheart without angina pectoris- History of CABG 1995 [place]ED[place]-LAD?([facility]), redo CABG (2001 [facility])- Status post successful PCI to the ostial, [...] 1 week return visit- Resolved at today's visitAUSTIN Joel-Bello 2017 7:14 AMReferring Provider: FAROOQ VILLA [953]Allergies As of Date: 01/12/2018 Noted Allergy SslwuwlwMMLDPQG-LUE-XGM REDUCTASE INHIBIT*12/29/2017 5 - Intolerance Comments: Statins caused myalgias, couldn't talk, affected my kidneysDate Reviewed: 12/29/2017Reviewed by: Debbie (Rn) SEBASTIAN Almeida - Fully AssessedReason for Visit: Follow Up [171]Primary Visit Diagnosis:Nonrheumatic aortic valve stenosis [I35.0] Other Visit Diagnoses: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 artery disease involving [place] coronary artery of [place] heart without angina pectoris [I25.10] Other hyperlipidemia [...] for Pt will follow up with local exercise instruct for 30 day visit and echo.Follow-up and Disposition History RecordedEncounter Number: [id number] Status:Closed by BHARGAV BECERRIL PA-C on 01/15/18 [facility] PROGRESSon 01-12-2018 Protein mass conc HNO ID: [id number] thor: Bhargav Nguyen) Carolervice: (none)Author Type: Physician AssistantType: Progress NotesFiled: 01/15/2018 10:02 AMNote Text:Transitional Care Management Progress NoteThe patients TCM visit was performed within the 14 days of discharge.Patient's Date of discharge: 12/29/17Date of initial coordinator contact after discharge: 01/01/18Discharge diagnosis: Severe aortic stenosisMedication review completed AUSTIN Kim-CProvider Documentation:In follow-up of hospitalization, Florin Vargas is a 77 year oldmale with [...] s/p CABG 1995 [facility]ED[place]-LAD?([facility]), redo CABG (2001 [facility]) and severe aortic stenosis, who presentstoday for [...] Continue aspirin for life, Plavix 1 year 2/ PCI/ENE- Pt will follow up with local exercise instruct for 30 day visit and echo(I25.10) Coronary artery disease involving [place] coronary artery ofnative heart without angina pectoris- History of CABG 1995 GRAJEDA-LAD?([facility]), redo CABG (2001 [facility])- Status post successful PCI to the ostial, [...] Resolved at today's visitMorris Joel 2017 7:14 AM Normal [facility] PSA, Diagnosticon 01-12-2018 PSA, Diagnostic 1.48 ng/mL Normal 0.00-2.59 [facility] Comment on above: Result Comment: Morris santiago PSA test methodology used is the Electrochemiluminescence Immunoassay. Performed By: #### C BC, BMP, PSA ####[facility] [address] [place], [place] [phone] CNCOon 01-05-2018 CNCO Letter Avelino Paiz [facility] / J4-1Phone: Bfb: [phone] 2017Pedro Gonzalez MDFAX: [phone]: Florin Vargas [facility] NO: [id number] Dr. Gonzalez:Your patient underwent a TAVR, Transcatheterization Aortic Replacement Valve,at [facility] on 12/27/17. The following is a copy of the patient'soperative report.It was a pleasure to participate in the care of your patient.Sincerely,Valentina Paiz, MDSurgical Director, Transcatheter Aortic Valve ProgramSinova fair oaks hospital Cardiac SurgeonS/de Normal [facility] Basic Metabolic Panlon 12-29 Anion gap 3 molar conc 15 mmol/L Normal -18 [facility] Comment on above: Performed By: #### C BCDIF, PT, CMP, NTBNP ####[facility] [address] [place] [address] [phone] Calcium mass conc 8.5 mg/dL Normal 8.5-10.2 [facility] Comment on above: Performed By: #### C BCDIF, PT, CMP, NTBNP ####[place] [phone] [place] [phone] Chloride molar conc 101 mmol/L Normal 97-105 [facility] Comment on above: Performed By: #### C BCDIF, PT, CMP, NTBNP ####[facility] [place] [phone] CO2 molar conc 22 mmol/L Normal 22-30 [facility] Comment on above: Performed By: #### C BCDIF, PT, CMP, NTBNP ####[facility] [address] [place] [address] [place] [phone] Creatinine mass conc 0.97 mg/dL Normal 0.73-1.22 [facility] Comment on above: Performed By: #### C BCDIF, PT, CMP, NTBNP ####[facility] [address] [phone] eGFR- Amer. >60 Normal [facility] Comment on above: Performed By: #### C BCDIF, PT, CMP, NTBNP ####[facility] [place], [place] [phone] GFR/1.73 sq M predicted among non-blacks MDRD vol rate/area (S/P/Bld) mL/min/{1.73_m2} Normal [facility] Comment on above: Result Comment: eGFR (Estimated [...] By: #### C BCDIF, PT, CMP, NTBNP ####[facility] [place], [place] [phone] Glucose mass conc 83 mg/dL Normal 74-99 [facility] Comment on above: Result Comment: The Ch[place] Diabetes Association (ADA) provides guidance for cutoff [...] Standards of Medical Care in Diabetes 2016, [place] Diabetes Association. Diabetes Care. 2016.39(Suppl 1). Performed By: #### C BCDIF, PT, CMP, NTBNP ####[facility] [address] [place], [place] [phone] Potassium molar conc 4.3 mmol/L Normal 3.7-5.1 [facility] Comment on above: Result Comment: Resu lts may be falsely increased due to interference by hemolysis. Suggest reorder as clinically indicated. Performed By: #### C BCDIF, PT, CMP, NTBNP ####[place] [address] [place] [phone] Sodium molar conc 138 mmol/L Normal 136-144 [facility] Comment on above: Performed By: #### C BCDIF, PT, CMP, NTBNP ####[address] [phone] Urea nitrogen mass conc 15 mg/dL Normal 9-24 [facility] Comment on above: Performed By: #### C BCDIF, PT, CMP, NTBNP ####[address] [phone] CBC and Differentialon 12-29 Abs Baso <0.03 Normal <0.11 [facility] Comment on above: Performed By: #### C BCDIF, PT, CMP, NTBNP ####[address] [phone] Abs Leelanau 0.87 k/uL High <0.87 [facility] Comment on above: Performed By: #### C BCDIF, PT, CMP, NTBNP ####[place] [address] [place] [phone] Abs Neut 3.94 k/uL Normal 1.45-7.50 [facility] Comment on above: Performed By: #### C BCDIF, PT, CMP, NTBNP ####[place] [address] [place] [phone] Absolute nRBC <0.01 Normal <0.01 [facility] Comment on above: Performed By: #### C BCDIF, PT, CMP, NTBNP ####[place] [address] [place] [phone] Basophils/100 WBC Auto (Bld) 0.3 % Normal [facility] Comment on above: Performed By: #### C BCDIF, PT, CMP, NTBNP ####[place] [address] [place] [phone] DTYPE Auto Diff Normal [facility] Comment on above: Performed By: #### C BCDIF, PT, CMP, NTBNP ####[place] [address] [place] [phone] Eosinophils Auto #/vol (Bld) 0.27 10*3/uL Normal <0.46 [facility] Comment on above: Performed By: #### C BCDIF, PT, CMP, NTBNP ####[place] [address] [place] [phone] Eosinophils/100 WBC Auto (Bld) 3.6 % Normal [facility] Comment on above: Performed By: #### C BCDIF, PT, CMP, NTBNP ####[place] [address] [place] [phone] Erythrocyte distribution width Auto Ratio (RBC) 14.1 % Normal 11.5-15.0 [facility] Comment on above: Performed By: #### C BCDIF, PT, CMP, NTBNP ####[place] [address] [place] [phone] Hematocrit Auto Volume Fraction (Bld) 41.3 % Normal 39.0-51.0 [facility] Comment on above: Performed By: #### C BCDIF, PT, CMP, NTBNP ####[place] [address] [place] [phone] Hemoglobin mass conc (Bld) 13.6 g/dL Normal 13.0-17.0 [facility] Comment on above: Performed By: #### C BCDIF, PT, CMP, NTBNP ####[place] [address] [place] [phone] Lymphocytes Auto #/vol (Bld) 2.38 10*3/uL Normal 1.00-4.00 [facility] Comment on above: Performed By: #### C BCDIF, PT, CMP, NTBNP ####[place] [address] [place] [phone] Lymphocytes/100 WBC Auto (Bld) 31.8 % Normal [facility] Comment on above: Performed By: #### C BCDIF, PT, CMP, NTBNP ####[place] [address] [place] [phone] MCH Auto Entitic mass (RBC) 29.2 pG Normal 26.0-34.0 [facility] Comment on above: Performed By: #### C BCDIF, PT, CMP, NTBNP ####[place] [address] [place] [phone] MCHC Auto mass conc (RBC) 32.9 g/dL Normal 30.5-36.0 [facility] Comment on above: Performed By: #### C BCDIF, PT, CMP, NTBNP ####[place] [address] [place] [phone] MCV Auto Entitic volume (RBC) 88.6 fL Normal 80.0-100.0 [facility] Comment on above: Performed By: #### C BCDIF, PT, CMP, NTBNP ####[place] [address] [place] [phone] Monocytes/100 WBC Auto (Bld) 11.6 % Normal [facility] Comment on above: Performed By: #### C BCDIF, PT, CMP, NTBNP ####[place] [address] [address] [place] [phone] Neutrophils/100 WBC Auto (Bld) 52.7 % Normal [facility] Comment on above: Performed By: #### C BCDIF, PT, CMP, NTBNP ####[place] [id number], [place] [phone] NRBCs 0.0 /100 WBC Normal 0 [facility] Comment on above: Performed By: #### C BCDIF, PT, CMP, NTBNP ####[place] [address], [place] [phone] Platelet mean volume Auto Entitic volume (Bld) 10.7 fL Normal 9.0-12.7 [facility] Comment on above: Performed By: #### C BCDIF, PT, CMP, NTBNP ####[address], [place] [phone] Platelets Auto #/vol (Bld) 120 10*3/uL Low 150-400 [facility] Comment on above: Result Comment: Resu lt checked and verifiedNo clot detected. Performed By: #### C BCDIF, PT, CMP, NTBNP ####[place] [address] [address], [place] [phone] RBC Auto #/vol (Bld) 4.66 10*6/uL Normal 4.20-6.00 [facility] Comment on above: Performed By: #### C BCDIF, PT, CMP, NTBNP ####[place] [address], [place] [phone] WBC Auto #/vol (Bld) 7.49 10*3/uL Normal 3.70-11.00 [facility] Comment on above: Performed By: #### C BCDIF, PT, CMP, NTBNP ####[place] [address], [place] [phone] Lipid Panel, Basicon 018 Cholesterol in HDL mass conc 62 mg/dL Normal >39 [facility] Comment on above: Result Comment: 40-5 9 mg/dL, Acceptable>59 mg/dL, High: Negative risk factor for coronary heart disease<40 mg/dL, Low: Positive risk factor for coronary heart disease Performed By: #### L IPB ####[place] [phone] Cholesterol in LDL mass conc 194 mg/dL High <100 [facility] Comment on above: Result Comment: <100 mg/dL, Optimal 100-129 mg/dL, Near optimal/above optimal 130-159 mg/dL, Borderline high 160-189 mg/dL, High>189 mg/dL, Very highSecondary prevention optimal LDL Cholesterol levels are recommended to be < 70 mg/dL Performed By: #### L IPB ####[place] [phone] Cholesterol mass conc 270 mg/dL High <200 [facility] Comment on above: Result Comment: <200 mg/dL, Desirable 200-239 mg/dL, Borderline high>239 mg/dL, High Performed By: #### L IPB ####[place] [phone] Fasting Time Unknown Normal [facility] Comment on above: Performed By: #### L IPB ####[place] [phone] LDL:HDL Ratio 3.13 High <2.54 [facility] Comment on above: Result Comment: Refe renkenna:1. National Cholesterol Education Program ATP III Guideline At-A-Glance Quick Desk Reference: National Heart, Lung, and Blood [place]. National Institutes of Health. 2001: NIH Publication No. 01-3305.2. An International Atherosclerosis Society position paper: global recommendations for the management of dyslipidemia: executive summary, Atherosclerosis. 2014: 232(2):410-413. Performed By: #### L IPB ####[place] [phone] Non HDL Cholesterol 208 mg/dL High <130 [facility] Comment on above: Result Comment: <130 mg/dL, Optimal 130-159 mg/dL, Near optimal/above optimal 160-189 mg/dL, Borderline high 190-219 mg/dL, High>219 mg/dL, Very highSecondary prevention optimal non HDL Cholesterol levels are recommended to be < 100 mg/dL Performed By: #### L IPB ####[address] [phone] TC:HDL Ratio 4.35 Normal <5.10 [facility] Comment on above: Performed By: #### L IPB ####[address] [phone] Triglyceride mass conc 68 mg/dL Normal <150 [facility] Comment on above: Result Comment: <150 mg/dL, Normal 150-199 mg/dL, Borderline high 200-499 mg/dL, High>499 mg/dL, Very high Performed By: #### L IPB ####[place] [phone] VLDL Cholesterol 14 mg/dL Normal <30 [facility] Comment on above: Performed By: #### L IPB ####[address] [phone] OPERATIVE NOon 12-29-2017 OPERATIVE NO HNO ID: [id number] thor: Valentina Parkerice: Cardiac SurgeryAuthor Type: PhysicianType: Operative ReportFiled: 01/04/2018 7:53 AMNote Text:The [address] [address] or ([phone]) [facility] O N F I D E N T I A L I N F O R M A T I O N --------STANDARD [facility] DOCUMENTOPERATIVE REPORTPatient Name: Florin Paige of Surgery: 12/27/2017Surgeon Search Marketing Specialist(s):Maricruz Salter MDAssistant(s):MDs: Rody/PAs:Operations: Transfemoral implantation of aortic valveAnesthesia:MACPreopera tive Diagnosis:Severe [...] radial artery.Over a Whisper J wire, a [place] embolic protection device was deployed.?The 5F sheath [...] the delivery catheter system was removed. The [place] embolicprotection device was removed over the Whisper [...] SIGNED by Licensed Independent Practitioner: MD Shanna [facility] PROGRESSon 12-29-2017 Protein mass conc HNO ID: [id number] thor: Ken Nguyen) SchraiderService: Cardiovascular MedicineAuthor Type: Physician AssistantType: Progress NotesFiled: 12/29/2017 12:55 PMNote Text: HEART and VASCULAR INSTITUTECARDIOVASCULAR MEDICINE PROGRESS NOTE(Template ID [id number])Florin E [id number] SERVICE: Hvi Card InterventionHOSPITAL DAY: # 2INTERVAL [...] : 443 ?msReview[address] w Dr Jeong AND [facility] CenterJac Vargas is a 77 year old male with a history of hypertension,hyperlipidemia , coronary artery disease s/p CABG 1995 G[facility]ED[place]-[facility]?([facility]), redo CABG (2001 [facility]) and severe aortic stenosis,for pre-op TAVR with [...] Disease) - History of CABG 1995 G[place]JED[place]-LAD ([facility]), [...] patientCase to be discussed with AUSTIN Velarde-CPager [phone] (please see below for after hours communication)12/29/201712:4 7 PMFor communication after 5 pm on weekdays and after 12 pm on weekends,please page the following:- Clinical Cardiology patients on all floors: page [phone]- Other Cardiology patients on J5 and J6: page [phone]- Other Cardiology patients on J7 and J8: page [phone] Normal [facility] Basic Metabolic Panlon 12-28 Anion gap 3 molar conc 15 mmol/L Normal 05-01 [facility] Comment on above: Performed By: #### C BCDIF, PT, CMP, NTBNP ####[facility] [place], [place] [phone] Calcium mass conc 8.4 mg/dL Low 8.5-10.2 [facility] Comment on above: Performed By: #### C BCDIF, PT, CMP, NTBNP ####[place] [address] [place] [address] [place] [phone] Chloride molar conc 100 mmol/L Normal 97-105 [facility] Comment on above: Performed By: #### C BCDIF, PT, CMP, NTBNP ####[place] [address] [place] [address] [place] [phone] CO2 molar conc 20 mmol/L Low 22-30 [facility] Comment on above: Performed By: #### C BCDIF, PT, CMP, NTBNP ####[place] [address] [place] [address] [place] [phone] Creatinine mass conc 1.01 mg/dL Normal 0.73-1.22 [facility] Comment on above: Performed By: #### C BCDIF, PT, CMP, NTBNP ####[place] [address] [place] [address] [place] [phone] eGFR- Amer. >60 Normal [facility] Comment on above: Performed By: #### C BCDIF, PT, CMP, NTBNP ####[address] [place] [phone] GFR/1.73 sq M predicted among non-blacks MDRD vol rate/area (S/P/Bld) mL/min/{1.73_m2} Normal [facility] Comment on above: Result Comment: eGFR (Estimated [...] By: #### C BCDIF, PT, CMP, NTBNP ####[facility] [place], [place] [phone] Glucose mass conc 89 mg/dL Normal 74-99 [facility] Comment on above: Result Comment: The [place] Diabetes Association (ADA) provides guidance for cutoff [...] Standards of Medical Care in Diabetes 2016, [place] Diabetes Association. Diabetes Care. 2016.39(Suppl 1). Performed By: #### C BCDIF, PT, CMP, NTBNP ####[address] [phone] Potassium molar conc 4.1 mmol/L Normal 3.7-5.1 [facility] Comment on above: Performed By: #### C BCDIF, PT, CMP, NTBNP ####[facility] [place], [place] [phone] Sodium molar conc 135 mmol/L Low 136-144 [facility] Comment on above: Performed By: #### C BCDIF, PT, CMP, NTBNP ####[facility] [place], [place] [phone] Urea nitrogen mass conc 24 mg/dL Normal 9-24 [facility] Comment on above: Performed By: #### C BCDIF, PT, CMP, NTBNP ####[place] [id number] [place], [place] [phone] CASE MGT INIT Peg 2017 CASE MGT INIT EVENS HNO ID: [id number] thor: Danielle (Rn) SHARON Fitzgeraldervice: Care ManagementAuthor Type: Registered NurseType: Care Mgt Initial AssessmentFiled: 12/28/2017 9:48 AMNote Text:CARE MANAGEMENT: ASSESSMENT AND DISCHARGE PLANSERVICE DATE: 12/28/2017SERVICE TIME: 9:44 AMPRIHAVASU REGIONAL MEDICAL CENTERY CARE PHYSICIAN:Pedro Gonzalez [facility] HOSPITALhone: [phone] STATUS: InpatientMEDICAL:Patient/Re presentative Stated Goals:Return homeHealth Insurance: [facility] [employer] POLICYMarcum And Wallace Memorial HospitalHealth Issues Impacting Discharge Plan: NoneLast Admission Date: [...] Admission: caneHas the Patient Been in a [facility] in the Past 30 days? 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 plQuisking storePrimary Contact: Extended Emergency Contact InformationPrimary Emergency Contact: Rachel Vargas Whilronb: SonSupportive: YesOther Important Patient Contacts: NoneCaregiver Assessment:Caregiver [...] - 0I feel financially burdened by my zjr-ig-ffwxqw expenses for myprescription medication: Disagree completely - [...] f/u appropriately.SIGNATURE: Danielle Fitzgerald RN PATIENT NAME: Florin VargasDATE: December 28, 2017 : 9:44 AM PAGER/CONTACT #: [phone] Normal [facility] CBCon 12-28-2017 Absolute nRBC <0.01 Normal <0.01 [facility] Comment on above: Performed By: #### C BCDIF, PT, CMP, NTBNP ####[facility] [place], [place] [phone] Erythrocyte distribution width Auto Ratio (RBC) 13.6 % Normal 11.5-15.0 [facility] Comment on above: Performed By: #### C BCDIF, PT, CMP, NTBNP ####[facility] [place], [place] [phone] Hematocrit Auto Volume Fraction (Bld) 38.4 % Low 39.0-51.0 [facility] Comment on above: Performed By: #### C BCDIF, PT, CMP, NTBNP ####[place] [phone] Hemoglobin mass conc (Bld) 13.0 g/dL Normal 13.0-17.0 [facility] Comment on above: Performed By: #### C BCDIF, PT, CMP, NTBNP ####[place] [phone] MCH Auto Entitic mass (RBC) 29.6 pG Normal 26.0-34.0 [facility] Comment on above: Performed By: #### C BCDIF, PT, CMP, NTBNP ####[address] [place] [phone] MCHC Auto mass conc (RBC) 33.9 g/dL Normal 30.5-36.0 [facility] Comment on above: Performed By: #### C BCDIF, PT, CMP, NTBNP ####[place] [phone] MCV Auto Entitic volume (RBC) 87.5 fL Normal 80.0-100.0 [facility] Comment on above: Performed By: #### C BCDIF, PT, CMP, NTBNP ####[place] [phone] Platelet mean volume Auto Entitic volume (Bld) 10.5 fL Normal 9.0-12.7 [facility] Comment on above: Performed By: #### C BCDIF, PT, CMP, NTBNP ####[place] [phone] Platelets Auto #/vol (Bld) 135 10*3/uL Low 150-400 [facility] Comment on above: Result Comment: Resu lt checked and verifiedNo clot detected. Performed By: #### C BCDIF, PT, CMP, NTBNP ####[address] AvJoseph [place] [phone] RBC Auto #/vol (Bld) 4.39 10*6/uL Normal 4.20-6.00 [facility] Comment on above: Performed By: #### C BCDIF, PT, CMP, NTBNP ####[facility] [place], [place] [phone] WBC Auto #/vol (Bld) 7.70 10*3/uL Normal 3.70-11.00 [facility] Comment on above: Performed By: #### C BCDIF, PT, CMP, NTBNP ####[facility] [place], [place] [phone] CNDSon 12-28-2017 CNDS HNO ID: [id number] thor: Ladarius Velazquezervice: Cardiovascular MedicineAuthor Type: PhysicianType: Discharge SummariesFiled: 01/01/2018 8:28 AMNote Text:Department of Cardiovascular MedicineDischarge Summary (Template ID [id number]) Pat ient Name: Florin VargasPatient Date: 12/27/2017Discharge Date: 12/29/2017Attending Physician: Elio Ashton WhitePrimary Service: Hvi Card InterventionAdmission Diagnosis: Aortic stenosisDischarge Diagnosis: s/p TAVRSecondary Diagnoses:Patient Active Hospital Problem List: Aortic stenosis () CAD (coronary artery disease) () Other hyperlipidemia (12/29/2017) Blood clots in stool (12/29/2017)Reason for Hospitalization:Mr. Vargas is a 77 year old male with a history of hypertension,hyperlipidemia , coronary artery disease s/[facility] ([facility]) and severe aortic stenosis,who presents today for [...] succinate ER (TOPROL XL) 25 mgComments:Reason for Stopping:Ttghp-3-KZX-EPA-Fi sh Oil 1,200 (144-216) mg capComments:Reason for Stopping:Outpatient Management:* Are there important medication changes and/or outstanding issues thatneed to be addressed: None* What is the plan for follow up:Future Appointments:Future AppointmentsDate Time Provider Department Center01/12/2018 12:10 PM 6515-LBJ1-4 MAIN LBJ1-4 CARD J BLD01/12/2018 12:30 PM [id number] MAIN [id number] CARD J BLD01/12/2018 1:00 PM 2579-BHARGAV BECERRIL ([place]) CATHMN TRINH J BLDElectronically SIGNED by Licensed Independent Practitioner: Ken Hinds PA-C Normal [facility] Differential ([facility] LAB USE ON LY)on 12-28-2017 Abs Baso <0.03 Normal <0.11 [facility] Comment on above: Performed By: #### C BCDIF, PT, CMP, NTBNP ####[facility] [address], [place] [phone] Abs Leelanau 0.78 k/uL Normal <0.87 [facility] Comment on above: Performed By: #### C BCDIF, PT, CMP, NTBNP ####[facility] [address] AveCTerry, [place] [phone] Abs Neut 5.53 k/uL Normal 1.45-7.50 [facility] Comment on above: Performed By: #### C BCDIF, PT, CMP, NTBNP ####[facility] [address]erry, [place] [phone] Basophils/100 WBC Auto (Bld) 0.3 % Normal [facility] Comment on above: Performed By: #### C BCDIF, PT, CMP, NTBNP ####[facility] [address], [place] [phone] Eosinophils Auto #/vol (Bld) 0.08 10*3/uL Normal <0.46 [facility] Comment on above: Performed By: #### C BCDIF, PT, CMP, NTBNP ####[place] [address] [address]rea [place] [phone] Eosinophils/100 WBC Auto (Bld) 1.0 % Normal [facility] Comment on above: Performed By: #### C BCDIF, PT, CMP, NTBNP ####[place] [address] [address] [place] [phone] Lymphocytes Auto #/vol (Bld) 1.45 10*3/uL Normal 1.00-4.00 [facility] Comment on above: Performed By: #### C BCDIF, PT, CMP, NTBNP ####[place] [address] [address] [place] [phone] Lymphocytes/100 WBC Auto (Bld) 18.4 % Normal [facility] Comment on above: Performed By: #### C BCDIF, PT, CMP, NTBNP ####[place] [address] [address] [place] [phone] Monocytes/100 WBC Auto (Bld) 9.9 % Normal [facility] Comment on above: Performed By: #### C BCDIF, PT, CMP, NTBNP ####[place] [address] [address] [place] [phone] Neutrophils/100 WBC Auto (Bld) 70.4 % Normal [facility] Comment on above: Performed By: #### C BCDIF, PT, CMP, NTBNP ####[address]CAndrea [place] [phone] NURSING PROGon 12-28-2017 Protein mass conc HNO ID: [id number] thor: Eli (Rn) Alayna RNService: (none)Author Type: Registered NurseType: Nursing Progress NoteFiled: 12/28/2017 9:38 AMNote Text: Nursing Progress NotePatient Name: Florin VargasMRN: [id number] Location: [place] [id number] Tr ansfer Note:Patient transferred into room/unit J72 bed 8 in stable condition.Actions taken: Oriented pt to room and unit protocols. Dual skin checkperformed with Celena Minor RN. Falls video unavailable at this time. Nofuther actions taken at this time. Will continue to monitor and checkwith patient.This note was completed by: Eli Orellana RN Normal [facility] PROGRESSon 12-28-2017 Protein mass conc HNO ID: [id number] thor: Ken Nguyen) SchraiderService: Cardiovascular MedicineAuthor Type: Physician AssistantType: Progress NotesFiled: 12/29/2017 12:45 PMNote Text: HEART and VASCULAR INSTITUTECARDIOVASCULAR MEDICINE PROGRESS NOTE(Template ID [id number])Florin [id number] SERVICE: Hvi Card InterventionHOSPITAL DAY: # 2INTERVAL [...] s/p CABG 1995 [facility]AD?([facility]), redo CABG (2001 [facility]) and severe aortic stenosis,for pre-op TAVR with [...] - History of CABG 1995 G[facility]ED[place]-LAD ([facility]), redo CABG (2001 [facility])- Status post successful PCI to the ostial, proximal, and mid-distal RCAwith a 4.0/12 mm Synergy EES, and 4.0/38 mm Synergy EES, and a 3.5/38 mmSynergy EES on 11/22/17.-continue aspirin, plavixLate entry.Pt seen and examined at 1300 12/28/17Case to be discussed with AUSTIN Velarde-CPager [phone] (please see below for after hours communication)12/28/20171300 For communication after 5 pm on weekdays and after 12 pm on weekends,please page the following:- Clinical Cardiology patients on all floors: page [phone]- Other Cardiology patients on J5 and J6: page [phone]- Other Cardiology patients on J7 and J8: page [phone] Normal [facility] Protein mass conc HNO ID: [id number] thor: GENE Cobbervice: Cardiovascular MedicineAuthor Type: PhysicianType: Progress NotesFiled: [...] 38.4* 42.4PLT 135* 173CREAT 1.01 1.01EKG: Sinus IL 190 QRS 90Assessment and Plan:77 year old male with severe aortic stenosis status post transfemoral TAVRwith a 26 mm Buckley Jennifer S3 valve1. Aspirin 81 mg daily2. Clopidogrel 75 mg daily3. Cephalexinprophylaxis x 5 days4. Echo today5. Transfer to [facility]. Metoprolol on hold while we watch his conduction on telemetryPlease don't hesitate to contact me with any questions or concerns.JOHANA De Leonager: [phone] Cardiology Normal [facility] ANES Rylee 12-27-2017 ANES POST HNO ID: [id number] thor: Elaina Bauer: AnesthesiologyAuthor Type: AnesthesiologistType: Anesthesia PostOpFiled: 12/27/2017 5:36 PMNote Text:CT Anesthesia Postoperative Note: Patient is s/p TAVR under monitoredanesthesia care. He tolerated the procedure uneventfully and wastransferred to the recovery area sleepy but arousable and with noimmediate complaint of pain/nausea/vomiting. BP 117/57, HR 47, RR 14, NqI2382%, T 36.1, hydration status adequate. There are no adverse anestheticevents to report at present time. Normal [facility] PT EDon 12-27-2017 PT ED HNO ID: [id number] thor: Heidi (Rn) Doehring, RNService: (none)Author Type: Registered NurseType: Patient EducationFiled: 12/27/2017 6:28 AMNote Text:PRE OP LEARNING ASSESSMENTPROCEDURE/SURGERY : TAVRREADINESS TO LEARNCOGNITIVE ABILITY: Alert and orientedMOTIVATION TO LEARN: InterestedFAMILY SUPPORT: High - Very involved in pt carePATIENT LEARNS BEST BY: Multiple MethodsFACTORS AFFECTING LEARNING: NonePHYSICAL LIMITATIONS AFFECTING LEARNING: Sensory Deficit Sight: CorrectivelensesElectronica lly Signed By: Heidi Murdock RN In Department: [id number] Normal [facility] CBC and Differentialon 12-26 Abs Baso <0.03 Normal <0.11 [facility] Comment on above: Performed By: #### C BCDIF, PT, CMP, NTBNP ####[facility] [place] [phone] Abs Leelanau 0.49 k/uL Normal <0.87 [facility] Comment on above: Performed By: #### C BCDIF, PT, CMP, NTBNP ####[facility] [address] AveCAndrea [place] [phone] Abs Neut 3.04 k/uL Normal 1.45-7.50 [facility] Comment on above: Performed By: #### C BCDIF, PT, CMP, NTBNP ####[facility] [address] AveCAndrea [place] [phone] Absolute nRBC <0.01 Normal <0.01 [facility] Comment on above: Performed By: #### C BCDIF, PT, CMP, NTBNP ####[facility] [address] AveCAndrea [place] [phone] Basophils/100 WBC Auto (Bld) 0.3 % Normal [facility] Comment on above: Performed By: #### C BCDIF, PT, CMP, NTBNP ####[facility]CAnd[address] [place] [phone] DTYPE Auto Diff Normal [facility] Comment on above: Performed By: #### C BCDIF, PT, CMP, NTBNP ####[place] [address] [address] [place] [phone] Eosinophils Auto #/vol (Bld) 0.13 10*3/uL Normal <0.46 [facility] Comment on above: Performed By: #### C BCDIF, PT, CMP, NTBNP ####[place] [address] [address] [place] [phone] Eosinophils/100 WBC Auto (Bld) 2.1 % Normal [facility] Comment on above: Performed By: #### C BCDIF, PT, CMP, NTBNP ####[place] [address] [address] [place] [phone] Erythrocyte distribution width Auto Ratio (RBC) 14.0 % Normal 11.5-15.0 [facility] Comment on above: Performed By: #### C BCDIF, PT, CMP, NTBNP ####[place] [address] [address] [place] [phone] Hematocrit Auto Volume Fraction (Bld) 42.4 % Normal 39.0-51.0 [facility] Comment on above: Performed By: #### C BCDIF, PT, CMP, NTBNP ####[place] [address] [address] [place] [phone] Hemoglobin mass conc (Bld) 13.7 g/dL Normal 13.0-17.0 [facility] Comment on above: Performed By: #### C BCDIF, PT, CMP, NTBNP ####[place] [address] [address] [place] [phone] Lymphocytes Auto #/vol (Bld) 2.35 10*3/uL Normal 1.00-4.00 [facility] Comment on above: Performed By: #### C BCDIF, PT, CMP, NTBNP ####[place] [address] [address] [place] [phone] Lymphocytes/100 WBC Auto (Bld) 38.8 % Normal [facility] Comment on above: Performed By: #### C BCDIF, PT, CMP, NTBNP ####[address] [place] [phone] MCH Auto Entitic mass (RBC) 29.5 pG Normal 26.0-34.0 [facility] Comment on above: Performed By: #### C BCDIF, PT, CMP, NTBNP ####[address]rea [place] [phone] MCHC Auto mass conc (RBC) 32.3 g/dL Normal 30.5-36.0 [facility] Comment on above: Performed By: #### C BCDIF, PT, CMP, NTBNP ####[address] [place] [phone] MCV Auto Entitic volume (RBC) 91.4 fL Normal 80.0-100.0 [facility] Comment on above: Performed By: #### C BCDIF, PT, CMP, NTBNP ####[place] [address] [address] [phone] Monocytes/100 WBC Auto (Bld) 8.1 % Normal [facility] Comment on above: Performed By: #### C BCDIF, PT, CMP, NTBNP ####[address] [place] [phone] Neutrophils/100 WBC Auto (Bld) 50.7 % Normal [facility] Comment on above: Performed By: #### C BCDIF, PT, CMP, NTBNP ####[place] [address] [address] [place] [phone] NRBCs 0.0 /100 WBC Normal 0 [facility] Comment on above: Performed By: #### C BCDIF, PT, CMP, NTBNP ####[facility]CTerry, [place] [phone] Platelet mean volume Auto Entitic volume (Bld) 10.8 fL Normal 9.0-12.7 [facility] Comment on above: Performed By: #### C BCDIF, PT, CMP, NTBNP ####[facility] [place], [place] [phone] Platelets Auto #/vol (Bld) 173 10*3/uL Normal 150-400 [facility] Comment on above: Performed By: #### C BCDIF, PT, CMP, NTBNP ####[address], [place] [phone] RBC Auto #/vol (Bld) 4.64 10*6/uL Normal 4.20-6.00 [facility] Comment on above: Performed By: #### C BCDIF, PT, CMP, NTBNP ####[address] AvBer[address], [place] [phone] WBC Auto #/vol (Bld) 6.05 10*3/uL Normal 3.70-11.00 [facility] Comment on above: Performed By: #### C BCDIF, PT, CMP, NTBNP ####[facility] [place], [place] [phone] CNOVon 12-26-2017 CNOV Office Visit (CARTMN) -------FLORIN VARGAS ([id number]) 1940 MDate Time Provider Department12/26/17 3:30 PM ANESTHESIA CLEARANCE CARTMN During your visit today, we recorded the following information about you:Jose Cruz eMndez DO 12/26/2017 12:38 PM SignedANESTHESIOLOGY INSTITUTEPREOP EVALUATION [...] hyperlipidemia, coronary artery disease s/pCABG 1995 GRAJEDA-LAD?([facility]), redo CABG (2001 [facility]) and severe aorticstenosis, who presents today for pre-op TAVR. Pt also had PCI w/ ENE x 3 to [facility] in 11/2017.PAST MEDICAL HISTORYDiagnosis Date- Aortic stenosis- [...] 24 11/23/2017CREAT 0.97 11/23/2017BUN 20 11/23/2017ANION 12 04/12/2018CA 8.7 11/23/2017TPROT 7.1 11/03/2017ALB 4.1 11/03/2017TBILI 0.8 [...] demonstrated severedisease at the ostium. We then sognurc-fgy-boylacc with a 4.0/20 mm NC at 16-18atm [...] EC tablet Take 81 mg bymouth once daily.Unlyd-5-XBE-EPA-Fish Oil 1,200 (144-216) mg cap Take by [...] with a small sip of water asscheduled.BETA MOHIT COMPLIANCE:Is the Patient Scheduled for a CABG: NoSIGNATURE: Jose Cruz Mendez DO PATIENT NAME: Florin VargasDATE: December 26, 2017 : 12:15 PM PAGER/CONTACT #:Referring Provider: FAROOQ VILLA [[id number]]Allergies As of Date: 12/26/2017(No Known Allergies)Date Reviewed: 12/26/2017Reviewed by: Bhargav Becerril (Pa) - Fully AssessedPrimary Visit Diagnosis:Aortic valve stenosis, etiology of cardiac valve disease unspecified [I35.0]Order(s):PREOP RED BLOOD CELLS [SQPRERC] Order #: [id number] as of 12/26/2017 Sig: ISOSORBIDE MONONITRATE ER 30 * Take 1 tablet by mouth once d* METOPROLOL SUCCINATE ER 50 MG* Take 25 mg by mouth once angeles* ASPIRIN 81 MG TABLET,DELAYED * Take 81 mg by mouth once angeles* OMEGA 1-SIC-FEA-FISH OIL 1,20* Take by mouth twice daily. CLOPIDOGREL 75 MG TABLET Take 75 mg by mouth once angeles*Problem List As Of Date 12/26/2017 Noted Resolved CAD (coronary artery disease) [I25.10] More... Aortic stenosis [I35.0] More... Status:Closed by JOSE CRUZ MENDEZ DO on 12/26/17 Normal [facility] CNOV Office Visit (CATHMN) -------FLORIN VARGAS ([id number]) 1940 MDate Time Provider Department12/26/17 11:00 AM BHARGAV BECERRIL ([place]) CATHMN During your visit today, we recorded the following information about you: Pulse Blood pressure Weight Height 56/minute 140/64 83 kg 1.676 mLisa LEXUS Becerril 12/26/2017 4:50 PM [facility] Department of Cardiovascular MedicineSECTION OF INTERVENTIONAL CARDIOLOGYOUTPATIENT VISIT DATE December 26, 2017OUTPATIENT VISIT TYPEESTABLISHEDPRIMARY CARE PHYSICIAN:Pedro Gonzalez MD ([facility])[address] [place] [address]Hfild: [phone]: [phone] COMPLAINT:Patient presents with:Valvular Heart DiseaseHISTORY OF PRESENT ILLNESS:Mr. Vargas is a 77 year old male with a history of hypertension,hyperlipidemia , coronary artery disease s/p CABG 1995 GRAJED[place]-LAD ([facility]),redo CABG (2001 [facility]) and severe aortic stenosis,who presents today for pre-op TAVR with Dr. Cancino 12/27/17.He was doing well since his his last CABG in 2001. In the last 6 months he hashad symptoms of SOB and chest pain which prompted a stress test evaluation.Given these symtpoms, a stress test in July 2017 could not necessarily ruleout [place] ischemia.?He had a stress test in July 2017 that could not rule out ischemiaprompting a C as below?TTE Jul 30 showed EF 45%, [...] claudication, leg swelling,cough and wheezing.PAST CARDIAC HISTORY:See HPIPAST MEDICAL HISTORYDiagnosis [...] EC tablet Take 81 mg bymouth once daily.Dgsjh-7-ERN-EPA-Fish Oil 1,200 (144-216) mg cap Take by [...] 1.00 - 4.00 k/uL 2.35Mono% % 8.1Abs Leelanau <0.87 k/uL 0.49Eosin% % 2.1Abs Eosin <0.46 [...] artery disease s/p CABG 1995 GRAJEDA-LAD ([facility]),redo CABG (2001 [facility]) and severe aortic stenosis,who presents today for [...] 22 mmHg andthe dimensionless valve index is 0.23.[facility] FC IIBNP: 2509- Continue aspirin, Plavix, MetoprololTF TAVR 12/27/17, Pre-op instructions provided, instructed to arrive at 6:15 am,Consent obtained by Fellow.(I25.10) Coronary artery disease involving [place] coronary artery of nativeheart without angina pectoris- History of CABG 1995 GRAJEDA-LAD ([facility]), redo CABG (2001 [facility])- Status post successful PCI to the ostial, [...] with more than 50% of the total raqv-lm-jtedzfuz of the visit in counseling / coordination of care.AUSTIN Joel-CReferring Provider: FAROOQ VILLA [[phone]]Allergies As of Date: 12/26/2017(No Known Allergies)Date Reviewed: 12/26/2017Reviewed by: Bhargav Becerril (Pa) - Fully AssessedReason for Visit: Valvular Heart Disease [169]Primary Visit Diagnosis:Nonrheumatic aortic valve stenosis [I35.0] Other Visit Diagnoses:Coronary artery disease involving [place] coronary artery of [place] heart without angina pectoris [I25.10] Essential hypertension [I10] Hyperlipidemia, unspecified hyperlipidemia type [E78.5]Prescriptions as of 12/26/2017 Sig: METOPROLOL SUCCINATE ER 50 MG* Take 25 mg by mouth once angeles* ASPIRIN 81 MG TABLET,DELAYED * Take 81 mg by mouth once angeles* OMEGA 2-RSY-HSC-FISH OIL 1,20* Take by mouth twice daily. [...] Dr. Cancino.Follow-up and Disposition History RecordedEncounter Number: [id number] Status:Closed by BHARGAV BECERRIL PA-C on 12/26/17 Normal [facility] Comp Metabolic Panelon 12-26 Albumin mass conc 4.0 g/dL Normal 3.9-4.9 [facility] Comment on above: Performed By: #### C BCDIF, PT, CMP, NTBNP ####[address] [phone] ALP enzyme act/vol 81 U/L Normal 36-108 [facility] Comment on above: Performed By: #### C BCDIF, PT, CMP, NTBNP ####[address] [phone] ALT enzyme act/vol 14 U/L Normal 10-54 [facility] Comment on above: Performed By: #### C BCDIF, PT, CMP, NTBNP ####[address] [phone] Anion gap 3 molar conc 11 mmol/L Normal 9-18 [facility] Comment on above: Performed By: #### C BCDIF, PT, CMP, NTBNP ####[address] [phone] AST enzyme act/vol 21 U/L Normal 14-40 [facility] Comment on above: Performed By: #### C BCDIF, PT, CMP, NTBNP ####[place] [address] [place] [address] [place] [phone] Bilirubin mass conc 0.8 mg/dL Normal 0.2-1.3 [facility] Comment on above: Performed By: #### C BCDIF, PT, CMP, NTBNP ####[place] [address] [place] [address]CAmanda [place] [phone] Calcium mass conc 9.4 mg/dL Normal 8.5-10.2 [facility] Comment on above: Performed By: #### C BCDIF, PT, CMP, NTBNP ####[address]in [place] [phone] Chloride molar conc 103 mmol/L Normal 97-105 [facility] Comment on above: Performed By: #### C BCDIF, PT, CMP, NTBNP ####[place] [address] [place] [address] [place] [phone] CO2 molar conc 25 mmol/L Normal 22-30 [facility] Comment on above: Performed By: #### C BCDIF, PT, CMP, NTBNP ####[place] [address] [phone] Creatinine mass conc 1.01 mg/dL Normal 0.73-1.22 [facility] Comment on above: Performed By: #### C BCDIF, PT, CMP, NTBNP ####[place] [address] [place] AveCKim [place] [phone] eGFR- Amer. >60 Normal [facility] Comment on above: Performed By: #### C BCDIF, PT, CMP, NTBNP ####[place] [address] [place] [address] [place] [phone] GFR/1.73 sq M predicted among non-blacks MDRD vol rate/area (S/P/Bld) mL/min/{1.73_m2} Normal [facility] Comment on above: Result Comment: eGFR (Estimated [...] By: #### C BCDIF, PT, CMP, NTBNP ####[facility] [place], [place] [phone] Glucose mass conc 91 mg/dL Normal 74-99 [facility] Comment on above: Result Comment: The [place] Diabetes Association (ADA) provides guidance for cutoff [...] Standards of Medical Care in Diabetes 2016, [place] Diabetes Association. Diabetes Care. 2016.39(Suppl 1). Performed By: #### C BCDIF, PT, CMP, NTBNP ####[facility] [address] [place], [place] [phone] Potassium molar conc 5.7 mmol/L High 3.7-5.1 [facility] Comment on above: Performed By: #### C BCDIF, PT, CMP, NTBNP ####[facility], [place] [phone] Protein mass conc 7.3 g/dL Normal 6.3-8.0 [facility] Comment on above: Performed By: #### C BCDIF, PT, CMP, NTBNP ####[facility] [place], [place] [phone] Sodium molar conc 139 mmol/L Normal 136-144 [facility] Comment on above: Performed By: #### C BCDIF, PT, CMP, NTBNP ####[facility] [place] [address], [place] [phone] Urea nitrogen mass conc 20 mg/dL Normal 9-24 [facility] Comment on above: Performed By: #### C BCDIF, PT, CMP, NTBNP ####[address] [phone] Confirm Blood Typeon 018 ABO/RH(D) Positive Normal [facility] Comment on above: Performed By: #### C BCDIF, PT, CMP, NTBNP ####[place] [id number] [place], [place] [phone] NT Pro BNPon 12-26-2017 Protein mass conc 2509 pg/mL High <450 [facility] Comment on above: Performed By: #### C BCDIF, PT, CMP, NTBNP ####[facility] [place] [address] [phone] PROGRESSon 12-26-2017 Protein mass conc HNO ID: [id number] thor: Jose Cruz Alves (Fel): (none)Author Type: FellowType: Progress NotesFiled: [...] hypertension, hyperlipidemia, coronary artery diseases/p CABG 1995 [facility] (2001 [facility]) and severeaortic stenosis, who presents today for [...] This demonstratedseveredisease at the ostium. We then ytlvher-swe-zdfzccq with a 4.0/20 mm NC [id number] for several overlapping inflations. We then stented [...] EC tablet Take 81mg by mouth once daily.Rkppn-2-YYC-EPA-Fish Oil 1,200 (144-216) mg cap Take by [...] with a small sip of water asscheduled.BETA MOHIT COMPLIANCE:Is the Patient Scheduled for a CABG: NoSIGNATURE: Jose Cruz Mendez DO PATIENT NAME: Florin VargasDATE: December 26, 2017 : 12:15 PM PAGER/CONTACT #: Normal [facility] Protein mass conc HNO ID: [id number] thor: Odell Anglin: (none)Author Type: (none)Type: Progress NotesFiled: 12/26/2017 9:51 AMNote Text: Radiology Service Progress NotePATIENT NAME: Florin VargasMRN: [id number] OF SERVICE: December 26, 2017TIME: 9:51 AMPATIENT IDENTITY VERIFICATION COMPLETED USING TWO (2) METHODS: Patientconfirmed name verbally and Date of .PATIENT GENDER DATA: MalePATIENT RELEVANT IMPLANT DATA REVIEWED: YesRADIOLOGY DEPARTMENT: General X-ray: Exam(s) Completed: Chest X-RayPERIPHERAL IV DATA: Not applicableSIGNED BY: Duane Liang RtMa2017 9:51 AM [facility] Protein mass conc HNO ID: [id number] thor: Bhargav Nguyen) ReeseoneService: (none)Author Type: Physician AssistantType: Progress NotesFiled: 12/26/2017 4:50 PMNote Text:[facility] V[facility] InstituteMarciano and Ashley Lay Department of Cardiovascular MedicineSECTION OF INTERVENTIONAL CARDIOLOGYOUTPATIENT VISIT DATE December 26, 2017OUTPATIENT VISIT TYPEESTABLISHEDPRUNC HEALTHRY CARE PHYSICIAN:Pedro Gonzalez MD ([facility])[address] [place] [address] 34402Qadpk: [phone]: [phone] COMPLAINT:Patient presents with:Valvular Heart DiseaseHISTORY OF PRESENT [...] in July 2017 could not necessarilyrule out LA ischemia.?He had a stress test in July [...] EC tablet Take 81mg by mouth once daily.Mtovv-8-BEF-EPA-Fish Oil 1,200 (144-216) mg cap Take by [...] 1.00 - 4.00 k/uL 2.35Mono% % 8.1Abs [place] <0.87 k/uL 0.49Eosin% % 2.1Abs Eosin <0.46 [...] is 22mmHg andthe dimensionless valve index is 0.23.[facility] IIBNP: 2509- Continue aspirin, Plavix, MetoprololTF TAVR 12/27/17, Pre-op instructions provided, instructed to arrive at6:15 am, Consent obtained by Fellow.(I25.10) Coronary artery disease involving [place] tribe coronary artery ofnative heart without angina pectoris- [...] visit, with more than 50% of the sofpcxbrt-do-vhej time of the visit in counseling / coordination of care.Bhargav Becerril PA-C [facility] Type and SCR (30D)on 018 ABO/RH(D) Positive [facility] Comment on above: Performed By: #### C BCDIF, PT, CMP, NTBNP ####[facility] [address] [place], [place] [phone] Antibody Screen Negative [facility] Comment on above: Performed By: #### C BCDIF, PT, CMP, NTBNP ####[facility] [address] [place], [place] [phone] XR CHEST 2V FRONTAL/LATon XR CHEST 2V [...] right sided coronary artery stent/stents. Status post CABG.Oil Field Tester: JOSE ARMANDO Transcribe Date/Time: Dec 26 2017 2:53PDictated by : GADIEL TERRELL MDThis examination was interpreted and the report reviewed and electronically signed by: GADIEL TERRELL MD on Dec 26 2017 2:57PM [id number] [facility] CNPNon 12-22-2017 CNPN Telephone (CATHMN) -------TIAN,JONAS E ([id number]) 1940 MDate Time Provider Department12/22/17 MELODIE GUZMAN ([facility]) CATHMN During your visit today, we recorded the following information about you:Melodie Guzman ([facility]) 12/22/2017 11:17 AM SignedCalled the Florin Vargas home number to discuss a TAVR procedure date fornext week. No answer. VMX left to call back.Melodie Guzman ([facility]) 12/22/2017 1:38 PM SignedReceived returned call from Mrs Florin Vargas. Offered TAVR proceduredate 12/27/17 (pre op 12/26/17). She and her wish to proceed withscheduling.Request has been sent to the supervising law enforcement analyst to arrange an appointment schedule.Patient is edentulous.Medication [...] 81 mg by mouth once angeles* OMEGA 4-HNL-JXZ-FISH OIL 1,20* Take by mouth twice daily. CLOPIDOGREL 75 MG TABLET Take 75 mg by mouth once angeles*Problem List As Of Date 12/22/2017 Noted Resolved CAD (coronary artery disease) [I25.10] Aortic stenosis [I35.0] Status:Closed by MELODIE BROWN RN on 12/22/17 [facility] 12-22-2017 HOSP Patient:Florin Vargas EMRN: Height:5' 6(1.676 m)Weight:183 lb (83.008 kg)Outpatient Medications as of 12/27/17:isosorbide mononitrate ER (IMDUR) 30 mg 24 hr tabletmetoprolol succinate ER (TOPROL XL) 50 mg 24 hr tabletaspirin, enteric coated (ASPIRIN, ENTERIC COATED) 81 mg EC hiogasYokyc-3-CWU-EPA-Fish Oil 1,200 (144-216) mg capclopidogrel (PLAVIX) 75 mg tabletAdmission/Clinic Administered Medications as of 12/27/17:Patient has no admission medications.Problem List:CAD (coronary artery disease) [I25.10]Aortic stenosis [I35.0]Allergies:No Known AllergiesDate Verified:12/27/17Lab ValuesLab Value Units Date High LowPOTA* 5.7 mmol/L 12/26/2017 5.1 3.7HEMA* 42.4 % 12/26/2017 51.0 39.0Progress Notes (RADIO GEN MAIN J):Duane Liang Rt 12/26/2017 9:51 AM Signed Radiology Service Progress NotePATIENT NAME: Florin VargasMRN: [id number] OF SERVICE: December 26, 2017TIME: 9:51 AMPATIENT IDENTITY VERIFICATION COMPLETED USING TWO (2) METHODS: Patientconfirmed name verbally and Date of .PATIENT GENDER DATA: MalePATIENT RELEVANT IMPLANT DATA REVIEWED: YesRADIOLOGY DEPARTMENT: General X-ray: Exam(s) Completed: Chest X-RayPERIPHERAL IV DATA: Not applicableSIGNED BY: Duane Liang RtMa2017 9:51 AMProgress Notes ([facility]):Jose Cruz Mendez DO 12/26/2017 12:38 PM SignedANESTHESIOLOGY INSTITUTEPREOP [...] of hypertension, hyperlipidemia, coronary artery disease s/p [id number] GRAJEDA-LAD?([employer]), redo CABG (2001 [facility]) and severe aorticstenosis, who presents today for pre-op TAVR. Pt also had PCI w/ ENE x 3 to [facility] in 11/2017.PAST MEDICAL HISTORYDiagnosis Date- Aortic stenosis- [...] demonstrated severedisease at the ostium. We then uzibhcz-lep-zivqaar with a 4.0/20 mm NC at 16-18atm [...] EC tablet Take 81 mg bymouth once daily.Btwyr-2-ZOR-EPA-Fish Oil 1,200 (144-216) mg cap Take by [...] with a small sip of water asscheduled.BETA MOHIT COMPLIANCE:Is the Patient Scheduled for a CABG: NoSIGNATURE: Jose Cruz Mendez DO PATIENT NAME: Florin Courtney TianDATE: December 26, 2017 : 12:15 PM PAGER/CONTACT #: Jonel [facility] Wolfgang 12-21-2017 CN Office Visit (TOMASA) -------TIAN,JONAS E ([id number]) 1940 MDate Time Provider Department12/21/17 12:15 PM LADARIUS CANCINO During your visit today, we recorded the following information about you: Pulse Respiration Blood pressure Weight 55/minute 14/minute 120/61 84.6 kg Height 1.676 Kavita Canicno MD 12/27/2017 6:03 PM [facility] InstituteR[facility] Jeronimo [facility] Department of Cardiovascular MedicineSECTION OF INTERVENTIONAL CARDIOLOGYOUTPATIENT VISIT DATE December 21, 2017OUTPATIENT VISIT TYPEESTABLISHEDPRIMARY CARE PHYSICIAN:Pedro Gonzalez MD ([facility])[address] [place] [address] 13712Dkayq: [phone]: [phone] COMPLAINT:Patient presents with:Hospital F/U: Nonrheumatic aortic valve [...] EC tablet Take 81 mg bymouth once daily.Vuqmc-7-GSN-EPA-Fish Oil 1,200 (144-216) mg cap Take by [...] family areagreeable.Yours sincerely,Wilton Cancino M.D.CONTACT INFORMATION:Referring Provider: LADARIUS CANCINO [[id number]]Allergies As of Date: 12/21/2017(No Known Allergies)Date Reviewed: 12/21/2017Reviewed by: Octavia Alexander) BETTINA Guerrero - Fully AssessedReason for Visit: Hospital F/U [57] Cmt: Nonrheumatic aortic valve stenosisPrimary Visit Diagnosis:Aortic valve disorder [I35.9] Other Visit Diagnosis:Nonrheumatic aortic valve stenosis [I35.0]Order(s):ECG COMPLETE W INTERPRETATION [ECG01] Order #: [id number] FUTURE XR CHEST 2V FRONTAL/LAT [2292949] Order #: [id number] FUTURE ECHO TRANSESOPHAGEAL [[id number]] Order #: [id number]: 1 FUTURE TYPE + SCREEN,30 DAY [KLOJAW98] Order #: [id number] FUTURE NT PRO BNP [SQNTBNP] Order #: [id number] FUTURE CBC + DIFF [SQCBCDIF] Order #: [id number] FUTURE COMP METABOLIC PANEL [SQCMP] Order #: [id number] FUTURE CONFIRM BLOOD TYPE [SQCONABO] Order #: [id number] FUTUREPrescriptions as of 12/21/2017 Sig: METOPROLOL SUCCINATE ER 50 MG* Take 25 mg by mouth once angeles* ASPIRIN 81 MG TABLET,DELAYED * Take 81 mg by mouth once angeles* OMEGA 2-DKL-TVZ-FISH OIL 1,20* Take by mouth twice daily. [...] care Disc: Course of therapy completedEncounter Number: [id number] Status:Closed by LADARIUS CANCINO on 12/27/17 [facility] PROGRESSon 12-21-2017 Protein mass conc HNO ID: [id number] thor: Ladarius Velazquezervice: (none)Author Type: PhysicianType: Progress NotesFiled: 12/27/2017 6:03 PMNote Text:[facility] InstituteRiley and Ashley Lay Department of Cardiovascular MedicineSECTION OF INTERVENTIONAL CARDIOLOGYOUTPATIENT VISIT DATE December 21, 2017OUTPATIENT VISIT TYPEESTABLISHEDPRIMARY CARE PHYSICIAN:Pedro Gonzalez MD ([facility])[address] [place] [address] 73476Wgxrz: [phone]: [phone] COMPLAINT:Patient presents with:Hospital F/U: Nonrheumatic aortic valve [...] EC tablet Take 81mg by mouth once daily.Yhaeo-3-XQL-EPA-Fish Oil 1,200 (144-216) mg cap Take by [...] family are agreeable.Yours sincerely,Wilton Cancino M.D.CONTACT INFORMATION: [facility] CNCOon 11-29-2017 CNCO Letter TextApril 2017Florin Vargas[address] [facility] [address]Eism Mr. Vargas,The nurses and staff of J7-2 nursing unit at [facility] hope thisletter finds you feeling well and [...] free to contact me, Wisam Harmon RN [phone] or e-mail [email or web address].Additionall y, you will receive a survey in the mail asking you to rate thecare you received while in the hospital. Please take the time to completeand send back the survey. I personally review all the results and wouldappreciate your feedback. Please consider completing this survey for eachindividual visit.Thank you in advance for your participation and thank you for [facility] your [facility].Sincerely,Wisam Harmon RNNurse ManagerJ7-2 Cardiology Step-down Unit Normal [facility] Basic Metabolic Panlon 11-23 Anion gap 3 molar conc 12 mmol/L Normal 9-18 [facility] Comment on above: Performed By: #### C BCDIF, PT, CMP, NTBNP ####[place] [phone] Calcium mass conc 8.7 mg/dL Normal 8.5-10.2 [facility] Comment on above: Performed By: #### C BCDIF, PT, CMP, NTBNP ####[place] [phone] Chloride molar conc 101 mmol/L Normal 97-105 [facility] Comment on above: Performed By: #### C BCDIF, PT, CMP, NTBNP ####[place] [phone] CO2 molar conc 24 mmol/L Normal 22-30 [facility] Comment on above: Performed By: #### C BCDIF, PT, CMP, NTBNP ####[place] [address] [place] [address] [phone] Creatinine mass conc 0.97 mg/dL Normal 0.73-1.22 [facility] Comment on above: Performed By: #### C BCDIF, PT, CMP, NTBNP ####[address] [place] [phone] eGFR- Amer. >60 Normal [facility] Comment on above: Performed By: #### C BCDIF, PT, CMP, NTBNP ####[facility] [place], [place] [phone] GFR/1.73 sq M predicted among non-blacks MDRD vol rate/area (S/P/Bld) mL/min/{1.73_m2} [facility] Comment on above: Result Comment: eGFR (Estimated [...] GFR. Performed By: #### C BCDIF, PT, RIOS, NTBNP ####[facility] [place], [place] [phone] Glucose mass conc 140 mg/dL High 74-99 [facility] Comment on above: Result Comment: The [place] Diabetes Association (ADA) provides guidance for cutoff [...] Standards of Medical Care in Diabetes 2016, [place] Diabetes Association. Diabetes Care. 2016.39(Suppl 1). Performed By: #### C BCDIF, PT, CMP, NTBNP ####[facility] [place], [place] [phone] Potassium molar conc 3.9 mmol/L Normal 3.7-5.1 [facility] Comment on above: Performed By: #### C BCDIF, PT, CMP, NTBNP ####[facility] [address] [place] AveCTerry, [place] [phone] Sodium molar conc 137 mmol/L Normal 136-144 [facility] Comment on above: Performed By: #### C BCDIF, PT, CMP, NTBNP ####[facility] [address] [place], [place] [phone] Urea nitrogen mass conc 20 mg/dL Normal 9-24 [facility] Comment on above: Performed By: #### C BCDIF, PT, CMP, NTBNP ####[facility] [address] [place], [place] [phone] CASE MGT INIT ASSESon [address] [facility] HNO ID: [id number] thor: SHARON Tellez Rnervice: Care ManagementAuthor Type: Registered NurseType: Care Mgt [...] f/u appropriately.SIGNATURE: Danielle Fitzgerald RN PATIENT NAME: Florin VargasDATE: November 23, 2017 : 9:12 AM PAGER/CONTACT #: [phone] [facility] PROCEDUREon 11-23-2017 Protein mass conc HNO ID: [id number] thor: Pratik Payton) PatelService: Interventional CardiologyAuthor Type: FellowType: ProceduresFiled: 11/22/2017 11:27 PMNote Text: INTERVENTIONAL CARDIOLOGY Procedure Note?Florin VargasMRN: [id number]: November 22, 2017Attending: Dr CancinoInterventional Fellow: Pratik [...] demonstrated severe disease at the ostium. We wyembmntrzb-sqw-awrcvcp with a 4.0/20 mm NC at 16-18 [...] me with questions.Justin Franco MDInterventional Cardiology FellowPager: [phone] 2017 11:01 PM [facility] PROGRESSon 11-23-2017 Protein mass conc HNO ID: [id number] thor: Pratik Payton) PatelService: Interventional CardiologyAuthor Type: FellowType: Progress NotesFiled: 11/23/2017 [...] cap Take 1 capsule by mouth once daily.Mtbdf-6-JZR-EPA-Fish Oil 1,200 (144-216) mg cap Take by [...] and Weight controlPratik Franco MDInterventional Cardiology FellowPager: [phone] 20178:57 AM [facility] [place] 11-14-2017 CNPN Telephone (CATHMN) -------FLORIN VARGAS ([id number]) 1940 MDate Time Provider Department11/14/17 MELODIE GUZMAN (LISA) CATHMN During your visit today, we recorded the following information about you:Melodie Guzman RN CIGAR BRANDER.WET WHEELER 11/14/2017 4:47 PM SignedAttempt made to speak with patient and review the valve team's recommendationfor PCI. No answer. VMX left.Request has been sent to the supervising law enforcement analyst to arrange a PCI procedure appointment.Horacio Boyd [facility] 11/15/2017 8:39 AM SignedPatient returned phone call and is waiting near the phone. Call as soon as youget in. Per the patient.[phone] Guzman RN CIGAR BRANDER.WET WHEELER 11/16/2017 1:46 PM SignedSpoke with Mrs. Florin Vargas. Informed of the recommendation for PCIwith Dr. Cancino. Answered all questions. Request has been sent to the schedulerto arrange an appointment.Allergies As of Date: 11/14/2017(No Known Allergies)Date Reviewed: 11/03/2017Reviewed by: Tonja CareyRn) SEBASTIAN Watkins - Fully AssessedReason for Visit: Patient Update [1234] Cmt: TAVRPrescriptions as of 11/14/2017 Sig: ISOSORBIDE MONONITRATE ER 60 * Take 30 mg by mouth once angeles* METOPROLOL SUCCINATE ER 50 MG* Take 25 mg by mouth once angeles* ASPIRIN 81 MG TABLET,DELAYED * Take 81 mg by mouth once angeles* GARLIC 1,000 MG CAPSULE Take 1 capsule by mouth once * OMEGA 7-UDI-MAV-FISH OIL 1,20* Take by mouth twice daily. CLOPIDOGREL 75 MG TABLET Take 75 mg by mouth once angeles* MINERALS ORAL Take by mouth once daily. Barbara* OTC PRODUCT 1 tablet three times daily. N*Problem List As Of Date 11/14/2017 Noted Resolved CAD (coronary artery disease) [I25.10] Aortic stenosis [I35.0] Status:Closed by MELODIE BROWN RN on 11/14/17 [facility] 11-13-2017 HOSP Patient Update (CATHMN) -------FLORIN VARGAS ([id number]) 1940 MDate Time Provider Department11/13/17 MELODIE GUZMAN (WET WHEELER) CATHMN During your visit today, we recorded the following information about you:Melodie Guzman RN CIGAR BRANDER.[facility] 11/13/2017 9:26 AM SignedMULTI DISCIPLINARY HIGH RISK AVR CARDIAC TEAMMembers present: Dr. Villa, Dr. Eid, Dr. Cancino, Dr. Paiz, , ,Dr. Diana, Dr. Vargas, Dr. Herrera, Dr Alfaro, Mingo GONZALEZ, Van RNPresenting Physician: Dr CancinoPATIENT NAME: Florin VargasMRN: [id number]: November 13, 2017Outcome: Florin Vargas 's history and imaging were reviewed by thephysicians in attendance.Coronary angiogram reviewed. + anginaThe collaborative recommendation would be needs PCI RCA with Dr CancinoThese recommendations will be communicated to the patient by our office.Procedure scheduling will be handled by CVM supervising law enforcement analyst.Melodie Guzman RN CNSAllergies As of Date: 11/13/2017(No Known Allergies)Date Reviewed: 11/03/2017Reviewed by: Tonja CareyRn) SEBASTIAN Watkins - Fully AssessedReason for Visit: Patient [...] 1 capsule by mouth once * OMEGA 0-RIA-MVP-FISH OIL 1,20* Take by mouth twice daily. CLOPIDOGREL 75 MG TABLET Take 75 mg by mouth once angeles* MINERALS ORAL Take by mouth once daily. Barbara* OTC PRODUCT 1 tablet three times daily. N*Problem List As Of Date 11/13/2017 Noted Resolved CAD (coronary artery disease) [I25.10] Aortic stenosis [I35.0] Status:Closed by TARIK GONZALEZ, MELODIE Driver on 11/13/17 [facility] PROGRESSon 11-13-2017 Protein mass conc HNO ID: [id number] thor: Melodie Driver (Lisa) TarikService: (none)Author Type: Nurse SpecialistType: Progress NotesFiled: 11/13/2017 9:26 AMNote Text:MULTI DISCIPLINARY HIGH RISK AVR CARDIAC TEAMMembers present: Dr. Villa, Dr. Eid, Dr. Cancino, Dr. Paiz,Dr. Pedersen, ,Dr. Diana, Dr. Vargas, Dr. Herrera, Dr Alfaro, Barry, Alex Khan RNPresenting Physician: Dr CancinoPATIENT NAME: Florin VargasMRN: [id number]: November 13, 2017Outcome: Florin Vargas 's history and imaging were reviewed by thephysicians in attendance.Coronary angiogram reviewed. + anginaThe collaborative recommendation would be needs PCI RCA with Dr CancinoThese recommendations will be communicated to the patient by our office.Procedure scheduling will be handled by CVM supervising law enforcement analyst.SEBASTIAN Lindsey [facility] PROGRESSon 11-11-2017 Protein mass conc HNO ID: [id number] thor: Rachael SmythiSerfelibertoe: (none)Author Type: PhysicianType: Progress NotesFiled: 11/11/2017 2:23 AMNote Text:CHART COPY DO NOT DISCARDPatient Type:ConsultVisit to determine Surgery:YesPCP:Pedro Gonzalez MD ([facility])[address] [place] [address] 78[address]Qjhru: [phone]: [phone] Physician::Ladarius Cancino MD[address] [facility] HospitalAND [place] [address]ZLE: Mr. Florin Vargas is a 77 year old male seen in consultation atthe request of Ladarius Cancino for opinion regarding treatment options forAortic [...] be communicated back to the requesting physician viathe medical centeric medical recordSnithin Pedersen MD [facility] CNOVon 11-10-2017 CNOV Office Visit (CATHMN) -------FLORIN VARGAS ([id number]) 1940 MDate Time Provider Department11/10/17 2:00 PM VANESSA COLVIN ([facility]) CATHMN During your visit today, we recorded the following information about you: Weight Height 80.7 kg 1.778 Jacque Colvin RN CIGAR BRANDER.WET WHEELER 11/10/2017 3:26 PM [facility] InstituteRoblovelace [facility] [place] and Ashley Lay Department of Cardiovascular MedicineSECTION OF INTERVENTIONAL CARDIOLOGYOUTPATIENT VISIT DATE November 10, 2017OUTPATIENT VISIT TYPEESTABLISHEDPRIMARY CARE PHYSICIAN:Pedro Gonzalez MD ([facility])[address] [place] [address] 020[address]Hfohg: [phone]: [phone] COMPLAINT:Patient presents with:Aortic StenosisHISTORY OF PRESENT ILLNESS:Mr. [...] cap Take 1 capsule by mouth once daily.Peojw-0-DYI-EPA-Fish Oil 1,200 (144-216) mg cap Take by [...] Activities of Daily Living:ActivitiesPoints (1 or 0) [place]:(1 Point)No supervision, direction or personal assistance Dependence:(0 [...] 2+CTA 11/03/17:aortic annulus: 2.2 x 3.0Area: 4.8 ca4Zjflslavimmqm: 8.0MLD= 8 mmIMPRESSION:Mr. Vargas is a 77 year old male with severe aortic valve stenosis andangina, NYHA FC III.PLAN AND RECOMMENDATIONS:I have spoken with Florin Vargas regarding the evaluation process for HRAVR. I reviewed the commercially available [employer] valve,including the valve model. I showed the animation of the TF procedure whileexplaining the procedure. I also reviewed the use of the [place] device. Wediscussed pre-op planning which includes the [...] overnight stay in the hospital.I explained to Florin Vargas that this is a surgical evaluation as welland that TAVR was commercially approved for patients that are considered highrisk or intermediate risk for traditional OHS. I have discussed with Florin Jackson that once all of the testing has been completed, the results willbe reviewed by the HR AVR team and He will be notified of the recommendations.Vanessa Colvin RN CIGAR BRANDER.CNSI spent 20- minutes in this visit, with more than 50% of the time devoted topatient counseling.Referring Provider: LADARIUS CANCINO [[id number]]Allergies As of Date: 11/10/2017(No Known Allergies)Date Reviewed: 11/03/2017Reviewed by: Tonja Lee) SEBASTIAN Watkins - Fully AssessedReason for Visit: Aortic Stenosis [614]Visit Diagnoses:Coronary artery disease involving [place] coronary artery of [place] heart with angina pectoris with documented spasm [...] 1 capsule by mouth once * OMEGA 5-RHH-RFI-FISH OIL 1,20* Take by mouth twice daily. CLOPIDOGREL 75 MG TABLET Take 75 mg by mouth once angeles* MINERALS ORAL Take by mouth once daily. Barbara* OTC PRODUCT 1 tablet three times daily. N*Problem List As Of Date 11/10/2017 Noted Resolved CAD (coronary artery disease) [I25.10] Aortic stenosis [I35.0]Disposition: Return for scheduled.Follow-up and Disposition History RecordedEncounter Number: [id number] Status:Closed by HELD VANESSA GONZALEZ on 11/10/17 [facility] CN Office Visit (TOMN) -------TIAN,JONAS E ([id number]) 1940 MDate Time Provider Department11/10/17 12:00 PM [facility] During your visit today, we recorded the following information about you:Rachael Pedersen MD 11/11/2017 2:23 AM SignedCHART COPY DO NOT DISCARDPatient Type:ConsultVisit to determine Surgery:YesPCP:Pedro Gonzalez MD ([facility])[address] [place] [address] 19[address]Svqha: [phone]: [phone] Physician::Ladarius Cancino MD[address] [facility] [address]ZKI: Mr. Florin Courtney Tian is a 77 year old male seen in consultation at [facility] of Ladarius Cancino for opinion regarding treatment options for [...] be communicated back to the requesting physician [facility] medical centeric medical recordShiJENNIFER Barahonaeferring Provider: LADARIUS CANCINO [[id number]]Allergies As of Date: 11/10/2017(No Known Allergies)Date Reviewed: 11/03/2017Reviewed by: Tonja (Rn) June RN - Fully AssessedPrimary Visit Diagnosis:Nonrheumatic aortic valve stenosis [I35.0]Prescriptions as of 11/10/2017 Sig: ISOSORBIDE MONONITRATE ER 60 * Take 30 mg by mouth once angeles* METOPROLOL SUCCINATE ER 50 MG* Take 25 mg by mouth once angeles* ASPIRIN 81 MG TABLET,DELAYED * Take 81 mg by mouth once angeles* GARLIC 1,000 MG CAPSULE Take 1 capsule by mouth once * OMEGA 1-WSZ-LVI-FISH OIL 1,20* Take by mouth twice daily. CLOPIDOGREL 75 MG TABLET Take 75 mg by mouth once angeles* MINERALS ORAL Take by mouth once daily. Barbara* OTC PRODUCT 1 tablet three times daily. N*Problem List As Of Date 11/10/2017 Noted Resolved CAD (coronary artery disease) [I25.10] Aortic stenosis [I35.0] Status:Closed by RACHAEL PEDERSEN on 11/11/17 Normal [facility] PROGRESSon 11-10-2017 Protein mass conc HNO ID: [id number] thor: Vanessa Santiago (Crystal Machining Coordinator) HeldService: (none)Author Type: Nurse SpecialistType: Progress NotesFiled: 11/10/2017 3:26 PMNote Text:Heart [facility]ascular [facility] Department of Cardiovascular MedicineSECTION OF INTERVENTIONAL CARDIOLOGYOUTPATIENT VISIT DATE November 10, 2017OUTPATIENT VISIT TYPEESTABLISHEDPRIMARY CARE PHYSICIAN:Pedro Gonzalez MD ([facility])[address] [place] [address] 73162Yzxql: [phone]: [phone] COMPLAINT:Patient presents with:Aortic StenosisHISTORY OF PRESENT ILLNESS:Mr. [...] cap Take 1 capsule by mouth once daily.Febxe-7-FBX-EPA-Fish Oil 1,200 (144-216) mg cap Take by [...] Activities of Daily Living:ActivitiesPoints (1 or 0) [place]:(1 Point)No supervision, direction or personal assistance Dependence:(0 [...] 2+CTA 11/03/17:aortic annulus: 2.2 x 3.0Area: 4.8 lh8Tfijdzdxvrxvs: 8.0MLD= 8 mmIMPRESSION:Mr. Vargas is a 77 year old male with severe aortic valve stenosisand angina, NYHA FC III.PLAN AND RECOMMENDATIONS:I have spoken with Florin Vargas regarding the evaluation processfor HR AVR. [...] overnight stay in the hospital.I explained to Florin Vargas that this is a surgical evaluation aswell and that TAVR was commercially approved for patients that areconsidered high risk or intermediate risk for traditional OHS. I havediscussed with Florin Vargas that once all of the testing has beencompleted, the results will be reviewed by the HR AVR team and He will benotified of the recommendations.Vanessa Colvin RN CIGAR BRANDER.CNSI spent 20- minutes in this visit, with more than 50% of the time devotedto patient counseling. Normal [facility] CBC and Differentialon 11-03 Abs Baso <0.03 Normal <0.11 [facility] Comment on above: Performed By: #### C BCDIF, PT, CMP, NTBNP ####[facility] [address] AveCTerry, [place] [phone] Abs Leelanau 0.51 k/uL Normal <0.87 [facility] Comment on above: Performed By: #### C BCDIF, PT, CMP, NTBNP ####[facility] [address]CT[address], [place] [phone] Abs Neut 3.07 k/uL Normal 1.45-7.50 [facility] Comment on above: Performed By: #### C BCDIF, PT, CMP, NTBNP ####[place] [id number] [place] AveClevelLuke [place] [phone] Absolute nRBC <0.01 Normal <0.01 [facility] Comment on above: Performed By: #### C BCDIF, PT, CMP, NTBNP ####[place] [address] [address]levelLuke [place] [phone] Basophils/100 WBC Auto (Bld) 0.3 % Normal [facility] Comment on above: Performed By: #### C BCDIF, PT, CMP, NTBNP ####[place] [address] [place] [address]rea [place] [phone] DTYPE Auto Diff Normal [facility] Comment on above: Performed By: #### C BCDIF, PT, CMP, NTBNP ####[place] [address] [place] [address] [place] [phone] Eosinophils Auto #/vol (Bld) 0.17 10*3/uL Normal <0.46 [facility] Comment on above: Performed By: #### C BCDIF, PT, CMP, NTBNP ####[place] [address] [place] [address]Clevel[address] [place] [phone] Eosinophils/100 WBC Auto (Bld) 2.6 % Normal [facility] Comment on above: Performed By: #### C BCDIF, PT, CMP, NTBNP ####[place] [address] [place] [address] [place] [phone] Erythrocyte distribution width Auto Ratio (RBC) 13.6 % Normal 11.5-15.0 [facility] Comment on above: Performed By: #### C BCDIF, PT, CMP, NTBNP ####[place] [address] [address] [place] [phone] Hematocrit Auto Volume Fraction (Bld) 42.8 % Normal 39.0-51.0 [facility] Comment on above: Performed By: #### C BCDIF, PT, CMP, NTBNP ####[address] AvJoseph [place] [phone] Hemoglobin mass conc (Bld) 13.7 g/dL Normal 13.0-17.0 [facility] Comment on above: Performed By: #### C BCDIF, PT, CMP, NTBNP ####[place] [phone] Lymphocytes Auto #/vol (Bld) 2.73 10*3/uL Normal 1.00-4.00 [facility] Comment on above: Performed By: #### C BCDIF, PT, CMP, NTBNP ####[place] [phone] Lymphocytes/100 WBC Auto (Bld) 41.9 % Normal [facility] Comment on above: Performed By: #### C BCDIF, PT, CMP, NTBNP ####[place] [phone] MCH Auto Entitic mass (RBC) 29.0 pG Normal 26.0-34.0 [facility] Comment on above: Performed By: #### C BCDIF, PT, CMP, NTBNP ####[place] [phone] MCHC Auto mass conc (RBC) 32.0 g/dL Normal 30.5-36.0 [facility] Comment on above: Performed By: #### C BCDIF, PT, CMP, NTBNP ####[address] AveCAndrea [place] [phone] MCV Auto Entitic volume (RBC) 90.5 fL Normal 80.0-100.0 [facility] Comment on above: Performed By: #### C BCDIF, PT, CMP, NTBNP ####[place] [address] [address], [place] [phone] Monocytes/100 WBC Auto (Bld) 7.8 % Normal [facility] Comment on above: Performed By: #### C BCDIF, PT, CMP, NTBNP ####[place] [address] [address], [place] [phone] Neutrophils/100 WBC Auto (Bld) 47.4 % Normal [facility] Comment on above: Performed By: #### C BCDIF, PT, CMP, NTBNP ####[place] [address] [place] [address] [place] [phone] NRBCs 0.0 /100 WBC Normal 0 [facility] Comment on above: Performed By: #### C BCDIF, PT, CMP, NTBNP ####[place] [address] [place] [address] [place] [phone] Platelet mean volume Auto Entitic volume (Bld) 10.6 fL Normal 9.0-12.7 [facility] Comment on above: Performed By: #### C BCDIF, PT, CMP, NTBNP ####[place] [address] [address], [place] [phone] Platelets Auto #/vol (Bld) 176 10*3/uL Normal 150-400 [facility] Comment on above: Performed By: #### C BCDIF, PT, CMP, NTBNP ####[place] [address] [address], [place] [phone] RBC Auto #/vol (Bld) 4.73 10*6/uL Normal 4.20-6.00 [facility] Comment on above: Performed By: #### C BCDIF, PT, CMP, NTBNP ####[place] [address] [address], [place] [phone] WBC Auto #/vol (Bld) 6.51 10*3/uL Normal 3.70-11.00 Cl [facility] Comment on above: Performed By: #### C BCDIF, PT, CMP, NTBNP ####[facility] [address], [place] [phone] CNOVon 11-03-2017 CNOV Office Visit (CATHMN) -------FLORIN VARGAS ([id number]) 1940 MDate Time Provider Department11/03/17 1:30 PM LADARIUS CANCINO CATHMN During your visit today, we recorded the following information about you: Pulse Blood pressure Weight Height 60/minute 131/64 85.5 kg 1.676 Kavita Cancino MD 11/23/2017 6:37 PM [facility] Department of Cardiovascular MedicineSECTION OF INTERVENTIONAL CARDIOLOGYOUTPATIENT VISIT DATE November 03, 2017OUTPATIENT VISIT TYPENEWPRIMARY CARE PHYSICIAN:Pedro Gonzalez MD ([facility])[address] [place] [address] 38[address]Vanng: [phone]: [phone] PHYSICIAN:SELFCHIEF COMPLAINT:Coronary Artery DiseaseAortic StenosisHISTORY OF PRESENT ILLNESS:Mr. Vargas is a 77 year old male from [place], [place] who presents todayfor evaluation of coronary artery disease and .PMH consists of:- CAD s/p CABG 1995 GRAJEDA-LAD ([facility] ), redo CABG (2001 [facility])- aortic stenosis- mitral valve regurgitation- HLD,- HTN.He [...] hehas tried multiple medications with his prior exercise instruct without success. Tristonhas not been on statin for this period.Given these symtpoms, Stress test in July 2017 that could not necessarilyrule out [place] ischemia. Heart cath as below.He had a [...] is walking up an incline. 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 Chelated minerals liquidOTC PRODUCT 1 tablet three times daily. Natural artery careREVIEW OF SYSTEMS:12 point ROS negative as per HPIPHYSICAL EXAMINATION:BP 131/64 Pulse 60 Ht 5' 6ANDquot; (1.68m) Wt 188 lb 8 oz (85.5kg) CbH164% BMI 30.44 kg/(m2).General Appearance: Well developed and [...] horizontal ST depression in II, III, aVF, V5-Y6Rclgivzwfq perfusion changes concerning for physiologic apical thinning,however, [...] all questions answered- Plan discussed with Staff Roving Carrier, Dr Ladarius Cancino. Note andrecommendations will be finalized upon his final attestation/recommendations .---------Wilton Charlton MD MPHCardiovascular Medicine Fellow, PGY - 5CHighland District Hospital Arlen bib Cameron Pena Heart and [email or web address] STAFF PHYSICIAN NOTE OF PERSONAL INVOLVEMENT IN [...] a tricuspid valve. His aortic annulus measures bwrqitm096 and 550 mm? with sinuses of Valsalva of only 29 mm and an STJ of only 26mm. Coronary angiography showed no obvious targets for PCI in the [place] leftcirculation with a patent GRAJEDA to his LAD and a patent vein graft to thelateral wall. The vein graft to the right coronary artery was occluded withsevere, heavily calcified diffuse disease of the [place] right coronary arterythat would be amenable to [...] as an initial treatmentstep.Yours sincerely,RONALD Aj PHYSICIAN: KAM AjATE OF SERVICE: November 03, 2017TIME OF SERVICE: 3:23 PMReferring Provider: SELF [200]Allergies As of Date: 11/03/2017(No Known Allergies)Date Reviewed: 11/03/2017Reviewed by: Tonja Lee) SEBASTIAN Watkins - Fully AssessedReason for Visit: Shortness of Breath [227] Cmt: treatment optionsPrimary Visit Diagnosis:Nonrheumatic aortic valve stenosis [I35.0] Other Visit Diagnoses:Atherosclerosis of [place] coronary artery of [place] heart, angina presence unspecified [I25.10] Coronary artery disease involving [place] coronary artery of [place] heart with angina pectoris with documented spasm (HCC) [I25.111]Order(s):CARDIAC RUBY ON RAILS CONSULTANT ORDER [[id number]] Order #: [id number]: 1Prescriptions as of 11/03/2017 Sig: ISOSORBIDE MONONITRATE ER 60 * Take 30 mg by mouth once angeles* METOPROLOL SUCCINATE ER 50 MG* Take 25 mg by mouth once angeles* ASPIRIN 81 MG TABLET,DELAYED * Take 81 mg by mouth once angeles* GARLIC 1,000 MG CAPSULE Take 1 capsule by mouth once * OMEGA 3-RZD-HFQ-FISH OIL 1,20* Take by mouth twice daily. CLOPIDOGREL 75 MG TABLET Take 75 mg by mouth once angeles* MINERALS ORAL Take by mouth once daily. Barbara* OTC PRODUCT 1 tablet three times daily. N*Problem List As Of Date: 11/03/2017(None)Letter Text Ladarius Cancino M.D.[facility] Department ofCardiovascular MedicineSection of Interventional and Clinical CardiologyApril 2017Mr. Florin Reeceler[address] [facility] [address]AEAF: Jayna Vargas NO: [id number] OF SERVICE: 11/03/2017Dear Mr. Vargas:The results of your lab work, along with your history and physical exam werereviewed. The following plans and goals have been established to optimizecontrol of your risk factors and reduce your risk of future heart disease.This information has been passed along to your primary care provider, Pedro Paris MD. Should you have any questions, please do not hesitate to contactour clinic at [phone].Sincerely,Jose Cancino M.D.(Signed electronically to expedite mailing)Heart and Vascular InstituteRiley and [facility] Department of Cardiovascular MedicineSECTION OF INTERVENTIONAL CARDIOLOGYOUTPATIENT VISIT DATE November 03, 2017OUTPATIENT VISIT TYPENEWPRIMARY CARE PHYSICIAN:Pedro Gonzalez MD ([facility])[address] [place] [address]Viswa: [phone]: [phone] PHYSICIAN:SELFCHIEF COMPLAINT:Coronary Artery DiseaseAortic StenosisHISTORY OF PRESENT ILLNESS:Mr. Varags is a 77 year old male from [place], [place] who presents todayfor evaluation of coronary artery disease and .PMH consists of:- CAD s/p CABG 1995 GRAJEDA-LAD ([facility] ), redo CABG (2001 [facility])- aortic stenosis- mitral valve regurgitation- HLD,- HTN.He [...] has tried multiple medications with his prior exercise instruct withoutsuccess. He has not been on statin for this period.Given these symtpoms, Stress test in July 2017 that could not necessarilyrule out [place] ischemia. Heart cath as below.He had a [...] (25), PCWP 17PVR 236, SVR 2686AVA 0.67, LILYL 0.34, AV mean gradient 22. 5LM 95%LAD [...] is walking up an incline. 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 Note andrecommendations will be finalized upon his final attestation/recommendations .---------Wilton Charlton MD MPHCardiovascular Medicine Fellow, PGY - 5CAshtabula [facility] Hospital - [facility] Hospitalangelo and Cameron Pena Heart and [email or web address] STAFF PHYSICIAN NOTE OF PERSONAL INVOLVEMENT IN [...] showed no obvioustargets for PCI in the [place] left circulation with a patent GRAJEDA to his LADand a patent vein graft to the lateral wall. The vein graft to the rightcoronary artery was occluded with severe, heavily calcified diffuse diseaseof the [place] right coronary artery that would be amenable [...] 03, 2017TIME OF SERVICE: 3:23 PMEncounter Number: [id number] Status:Closed by LADARIUS CANCINO on 11/23/17 Normal [facility] CTA C/A/P (GATED) W IVCONon 11-03-2017 CTA C/A/P (GATED) W IVCON * * *Final Report* * *DATE OF EXAM: Nov 03 2017 1:13PM JEVY [id number] - CTA C/A/P (GATED) W IVCON [...] throughout, and is notable for an infrarenal aneurysm.Senior Grants Officer dimensions of the thoracoabdominal aorta are as [...] exam is recommended in 3 to 6 months.Oil Field Tester: JOSE ARMANDO Transcribe Date/Time: Nov 03 2017 1:23PDictated by : Jordi JACKSON examination was interpreted and the report reviewed and electronically signed by: GABRIEL POWELL DO on Nov 03 2017 3:18PM [id number] Normal [facility] Comp Metabolic Panelon 11-03 Albumin mass conc 4.1 g/dL Normal 3.9-4.9 [facility] Comment on above: Performed By: #### C BCDIF, PT, CMP, NTBNP ####[facility] [address] [place], [place] [phone] ALP enzyme act/vol 84 U/L Normal 36-108 [facility] Comment on above: Performed By: #### C BCDIF, PT, CMP, NTBNP ####[facility] [address] [place], [place] [phone] ALT enzyme act/vol 16 U/L Normal 10-54 [facility] Comment on above: Performed By: #### C BCDIF, PT, CMP, NTBNP ####[place] [id number] [place] [address]C[place] [phone] Anion gap 3 molar conc 12 mmol/L Normal 9-18 [facility] Comment on above: Performed By: #### C BCDIF, PT, CMP, NTBNP ####[place] [address] [place] [address] [place] [phone] AST enzyme act/vol 20 U/L Normal 14-40 [facility] Comment on above: Performed By: #### C BCDIF, PT, CMP, NTBNP ####[address]Joseph [place] [phone] Bilirubin mass conc 0.8 mg/dL Normal 0.2-1.3 [facility] Comment on above: Performed By: #### C BCDIF, PT, CMP, NTBNP ####[address] AvNicholas [place] [phone] Calcium mass conc 9.3 mg/dL Normal 8.5-10.2 [facility] Comment on above: Performed By: #### C BCDIF, PT, CMP, NTBNP ####[address] [place] [phone] Chloride molar conc 102 mmol/L Normal 97-105 [facility] Comment on above: Performed By: #### C BCDIF, PT, CMP, NTBNP ####[place] [address] [place] [address] [place] [phone] CO2 molar conc 27 mmol/L Normal 22-30 [facility] Comment on above: Performed By: #### C BCDIF, PT, CMP, NTBNP ####[place] [address] [place] [address] [place] [phone] Creatinine mass conc 0.98 mg/dL Normal 0.73-1.22 [facility] Comment on above: Performed By: #### C BCDIF, PT, CMP, NTBNP ####[facility] [address] [place], [place] [phone] eGFR- Amer. >60 Normal [facility] Comment on above: Performed By: #### C BCDIF, PT, CMP, NTBNP ####[facility] [place], [place] [phone] GFR/1.73 sq M predicted among non-blacks MDRD vol rate/area (S/P/Bld) mL/min/{1.73_m2} Normal [facility] Comment on above: Result Comment: eGFR (Estimated [...] By: #### C BCDIF, PT, CMP, NTBNP ####[facility] [place], [place] [phone] Glucose mass conc 88 mg/dL Normal 74-99 [facility] Comment on above: Result Comment: The [place] Diabetes Association (ADA) provides guidance for cutoff [...] Standards of Medical Care in Diabetes 2016, [place] Diabetes Association. Diabetes Care. 2016.39(Suppl 1). Performed By: #### C BCDIF, PT, CMP, NTBNP ####[place] [id number] [place], [place] [phone] Potassium molar conc 4.5 mmol/L Normal 3.7-5.1 [facility] Comment on above: Performed By: #### C BCDIF, PT, CMP, NTBNP ####[address] Av[address], [place] [phone] Protein mass conc 7.1 g/dL Normal 6.3-8.0 [facility] Comment on above: Performed By: #### C BCDIF, PT, CMP, NTBNP ####[address] Av[address], [place] [phone] Sodium molar conc 141 mmol/L Normal 136-144 [facility] Comment on above: Performed By: #### C BCDIF, PT, CMP, NTBNP ####[address] [phone] Urea nitrogen mass conc 20 mg/dL Normal 9-24 [facility] Comment on above: Performed By: #### C BCDIF, PT, CMP, NTBNP ####[address] [phone] NT Pro BNPon 11-03-2017 Protein mass conc 2191 pg/mL High <450 [facility] Comment on above: Performed By: #### C BCDIF, PT, CMP, NTBNP ####[address] Av[place], [place] [phone] PROGRESSon 11-03-2017 Protein mass conc HNO ID: [id number] thor: Ladarius Grajeda: (none)Author Type: PhysicianType: Progress NotesFiled: 11/23/2017 6:37 PMNote Text:Heart and Vascular InstituteMarciano and Ashley Lay Department of Cardiovascular MedicineSECTION OF INTERVENTIONAL CARDIOLOGYOUTPATIENT VISIT DATE November 03, 2017OUTPATIENT VISIT TYPENEWPRIMARY CARE PHYSICIAN:Pedro Gonzalez MD ([facility])[address] [place] [address] 47[address]Bbump: [phone]: [phone] PHYSICIAN:SELFCHIEF COMPLAINT:Coronary Artery DiseaseAortic StenosisHISTORY OF PRESENT ILLNESS:Mr. Vargas is a 77 year old male from [place], [place] who presentstoday for evaluation of coronary artery disease and .PMH consists of:- CAD s/p CABG 1995 GRAJEDA-LAD ([facility] ), redo CABG (2001 [facility])- aortic stenosis- mitral valve regurgitation- HLD,- HTN.He [...] has tried multiple medications with his prior exercise instruct withoutsuccess. He has not been on statin for this period.Given these symtpoms, Stress test in July 2017 that could notnecessarily rule out [place] ischemia. 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 Chelated minerals liquidOTC PRODUCT 1 tablet three times daily. Natural artery careREVIEW OF SYSTEMS:12 point ROS negative as per HPIPHYSICAL EXAMINATION:BP 131/64 Pulse 60 Ht 5' 6 (1.68m) Wt 188 lb 8 oz (85.5kg) PcN366% BMI 30.44 kg/(m2).General Appearance: Well developed and [...] horizontal ST depression in II, III, aVF, V5-L4Ddwlhshssz perfusion changes concerning for physiologic apical thinning,however, [...] degree AV blockLeft Heart Catheterization @ [facility] 09/12/2017[facility]:Thermal CO 2.71, Thermal CI 1.38RA 4, RV [...] all questions answered- Plan discussed with Staff Roving Carrier, Dr Ladarius Cancino. Note andrecommendations will be finalized upon his finalattestation/recommenda tions.---------Wilton Charlton MD MPHCardiovascular Medicine Fellow, PGY - 5CAshtabula General Hospital - Cuba Memorial HospitalFletcher Pena Heart and [email or web address] [id number] STAFF PHYSICIAN NOTE OF PERSONAL INVOLVEMENT IN [...] showed no obvious targets for PCI inthe [place] left circulation with a patent GRAJEDA to [...] 03, 2017TIME OF SERVICE: 3:23 PM Normal [facility] Protein mass conc HNO ID: [id number] thor: Tamika Leon CtService: (none)Author Type: (none)Type: Progress NotesFiled: 11/03/2017 1:19 PMNote Text: Radiology Service Progress NotePATIENT NAME: Florin VargasMRN: [id number] OF SERVICE: November 03, 2017TIME: 1:11 PMPATIENT IDENTITY VERIFICATION COMPLETED USING TWO (2) METHODS: Patientconfirmed name verbally and ID band matches..PATIENT GENDER DATA: MalePATIENT RELEVANT IMPLANT DATA REVIEWED: YesRADIOLOGY DEPARTMENT: CT; Exam(s) Completed: CardiacPERIPHERAL IV DATA: Site assessment: Clean,Dry and Intact, Sitedisposition Left in for next appointmentSIGNED BY: Tamika Leon CtMar 2017 1:11 PM Normal [facility] Protein mass conc HNO ID: [id number] thor: Tonja (Rn) [facility], RNService: RadiologyAuthor Type: Registered NurseType: Progress NotesFiled: 11/03/2017 12:55 PMNote Text: Radiology Service Progress NotePATIENT NAME: Florin VargasMRN: [id number] OF SERVICE: November 03, 2017TIME: 12:38 PMPATIENT WEIGHT: 185 LBSPATIENT IDENTITY VERIFICATION COMPLETED USING TWO (2) METHODS: Patientconfirmed name verbally and ID band matches..PATIENT GENDER DATA: MaleCONTRAST INDUCED NEPHROPATHY RISK FACTORS: Patient age > 60 yearsCREATININE:Creatinine (POCT)Date Value Ref Range Hhmiiu8511/03/2017 0.90 0.7 - 1.4 mg/dL Final eGFR-All Other Races (POCT)Date Value Ref Range Byajjr0011/03/2017 >60 mL/min/1.73 m2 Final eGFR- (POCT)Date Value Ref Range Fdzyet6111/03/2017 >60 mL/min/1.73 m2 Final P.O.C.T. RESULTS: POC done: Yes, See Lab Tab November 03, 2017TREATMENT: No Hydration needed.ALLERGIES: Reviewed and updatedCONTRAST ALLERGY: NO.IV SITE: Ambulatory: A peripheral IV was started in the Rightantecubital site with a Angio cath: 20 gauge. and A Saline lock wasinserted per protocolIV SITE APPEARANCE: Clean,Dry and IntactSIGNED BY: Tonja Watkins, SEBASTIANOur Lady Of Mercy Hospital 2017 12:38 PM Normal [facility] Protein mass conc HNO ID: [id number] thor: Torie Coles RtService: (none)Author Type: (none)Type: Progress NotesFiled: 11/03/2017 10:47 AMNote Text: Radiology Service Progress NotePATIENT NAME: Florin VargasMRN: [id number] OF SERVICE: November 03, 2017TIME: 10:47 AMPATIENT IDENTITY VERIFICATION COMPLETED USING TWO (2) METHODS: Patientconfirmed name verbally and Date of .PATIENT GENDER DATA: MalePATIENT RELEVANT IMPLANT DATA REVIEWED: Not ApplicableRADIOLOGY DEPARTMENT: General X-ray: Exam(s) Completed: Chest X-RayPERIPHERAL IV DATA: Not applicableSIGNED BY: Torie Coles [facility] 2017 10:47 AM Normal [facility] Protimeon 11-03-2017 INR Coag RelTime (Bld) 1.0 {INR} Normal 0.9-1.3 [facility] Comment on above: Result Comment: Татьяна min K Antagonist (VKA) Therapeutic Range: INR 2 to 3 (Target INR of 2.5)Note: For patients treated with VKA drugs, such as warfarin, the [employer] 2012 Guideline recommends [...] 2.5 to 3.5 (target INR of 3).Bouchra PHILIP, et al. Chest 2012, 141:7S-47SGuero YIN, et al. [facility] 2017, 70: 252-289 Performed By: #### C BCDIF, PT, CMP, NTBNP ####[facility] [place], [place] [phone] PT Sec 10.7 sec Normal 9.7-13.0 [facility] Comment on above: Performed By: #### C BCDIF, PT, CMP, NTBNP ####[facility] [place], [place] [phone] XR CHEST 2V FRONTAL/LATon XR CHEST 2V [...] Degenerative changes in the spine.IMPRESSION:See body of report..Oil Field Tester: PSCB Transcribe Date/Time: Nov 03 2017 2:31PDictated by : YANG ZENDEJAS MDThis examination was interpreted and the report reviewed and electronically signed by: YANG ZENDEJAS MD on Nov 03 2017 2:32PM [id number] Normal [facility] Vital Signs Date Time Vital Sign Value Performing Clinician Facility 04-07-2025 09:15-0400 Body height 167.[address] Pedro Gonzalez MD Work Phone: 6(845)644-137606 [place] [address] 04-07-2025 09:15-0400 Body mass index (BMI) [Ratio] 28.8 kg/m2 Dr. Pedro Gonzalez MD Work Phone: 7(723)363-374337 [place] [address] 04-07-2025 09:15-0400 Body weight 81.[address] Pedro Gonzalez MD Work Phone: 0(410)492-964637 [place] [address] 04-07-2025 09:15-0400 Diastolic blood pressure 72 mm[Hg] Dr. Pedro Gonzalez MD Work Phone: 6(692)606-928637 [place] [address] 04-07-2025 09:15-0400 Heart rate 72 /min Dr. Pedro Gonzalez MD Work Phone: 4(067)046-219637 [place] [address] 04-07-2025 09:15-0400 Respiratory rate 16 /min Dr. Pedro Gonzalez MD Work Phone: 7(187)970-871037 [place] [address] 04-07-2025 09:15-0400 Systolic blood pressure 118 mm[Hg] Dr. Pedro Gonzalez MD Work Phone: 8(064)486-512337 [place] [address] 04-02-2025 12:15-0400 Diastolic blood pressure 74 mm[Hg] Dr. Pedro Gonzalez MD Work Phone: 7(842)867-175637 [place] [address] 04-02-2025 12:15-0400 Heart rate 73 /min Dr. Pedro Gonzalez MD Work Phone: 0(201)670-624637 [place] [address] 04-02-2025 12:15-0400 Respiratory rate 20 /min Dr. Pedro Gonzalez MD Work Phone: 0(209)659-880537 [place] [address] 04-02-2025 12:15-0400 SaO2% (BldA) [Mass fraction] 97 % Dr. Pedro Gonzalez MD Work Phone: 6(120)749-911137 [place] [address] 04-02-2025 12:15-0400 Systolic blood pressure 115 mm[Hg] Dr. Pedro Gonzalez MD Work Phone: 4(361)606-661637 [place] [address] 04-02-2025 11:35-0400 Body mass index (BMI) [Ratio] 30.2 kg/m2 Dr. Pedro Gonzalez MD Work Phone: 4(331)201-887137 [place] [address] 04-02-2025 11:35-0400 Body temperature 98.1 [degF] Dr. Pedro Gonzalez MD Work Phone: 4(842)840-642137 [place] [address] 04-02-2025 11:35-0400 Body weight 85.[address] Pedro Gonzalez MD Work Phone: 1(011)032-802737 [place] [address] 04-02-2025 10:48-0400 Body height 167.[address] Pedro Gonzalez MD Work Phone: 6(766)135-569637 [place] [address] 02-26-2025 08:56-0400 Body height 167.[address] Pedro Gonzalez MD Work Phone: 9(094)134-943737 [place] [address] 02-26-2025 08:56-0400 Body mass index (BMI) [Ratio] 29 kg/m2 Dr. Pedro Gonzalez MD Work Phone: 3(327)242-030437 [place] [address] 02-26-2025 08:56-0400 Body weight 81.[address] Pedro Gonzalez MD Work Phone: 4(998)049-527037 [place] [address] 02-26-2025 08:56-0400 Diastolic blood pressure 64 mm[Hg] Dr. Pedro Gonzalez MD Work Phone: 0(677)453-125137 [place] [address] 02-26-2025 08:56-0400 Heart rate 60 /min Dr. Pedro Gonzalez MD Work Phone: 0(242)186-664337 [place] [address] 02-26-2025 08:56-0400 Respiratory rate 18 /min Dr. Pedro Gonzalez MD Work Phone: 4(531)364-953937 [place] [address] 02-26-2025 08:56-0400 Systolic blood pressure 112 mm[Hg] Dr. Pedro Gonzalez MD Work Phone: 2(268)021-278937 [place] [address] 02-11-2025 10:07-0400 Body height 167.[address] Pedro Gonzalez MD Work Phone: 4(492)634-298237 [place] [address] 02-11-2025 10:07-0400 Body mass index (BMI) [Ratio] 30.2 kg/m2 Dr. Pedro Gonzalez MD Work Phone: 8(900)100-208506 [place] [address] 02-11-2025 10:07-0400 Body weight 84.[address] Pedro Gonzalez MD Work Phone: 0(239)450-410137 [place] [address] 02-11-2025 10:07-0400 Diastolic blood pressure 70 mm[Hg] Dr. Pedro Gonzalez MD Work Phone: 1(092)486-401337 [place] [address] 02-11-2025 10:07-0400 Heart rate 75 /min Dr. Pedro Gonzalez MD Work Phone: 1(533)578-571937 [place] [address] 02-11-2025 10:07-0400 Respiratory rate 16 /min Dr. Pedro Gonzalez MD Work Phone: 6(386)401-370237 [place] [address] 02-11-2025 10:07-0400 Systolic blood pressure 120 mm[Hg] Dr. Pedro Gonzalez MD Work Phone: 4(903)584-633737 [place] [address] 02-08-2025 11:00-0400 Body temperature 97.1 [degF] Dr. Pedro Gonzalez MD Work Phone: 3(184)838-364537 [place] [address] 02-08-2025 11:00-0400 Diastolic blood pressure 69 mm[Hg] Dr. Pedro Gonzalez MD Work Phone: 1(224)080-197337 [place] [address] 02-08-2025 11:00-0400 Heart rate 69 /min Dr. Pedro Gonzalez MD Work Phone: 1(751)697-873137 [place] [address] 02-08-2025 11:00-0400 Respiratory rate 16 /min Dr. Pedro Gonzalez MD Work Phone: 9(454)447-491637 [place] [address] 02-08-2025 11:00-0400 SaO2% (BldA) [Mass fraction] 99 % Dr. Pedro Gonzalez MD Work Phone: 4(783)789-146037 [place] [address] 02-08-2025 11:00-0400 Systolic blood pressure 104 mm[Hg] Dr. Pedro Gonzalez MD Work Phone: 1(598)096-066637 [place] [address] 02-08-2025 05:21-0400 Inhaled oxygen concentration 24 % Dr. Pedro Gonzalez MD Work Phone: [facility] 02-08-2025 03:45-0400 Body mass index (BMI) [Ratio] 31.6 kg/m2 Dr. Pedro Gonzalez MD Work Phone: [facility] 02-08-2025 03:45-0400 Body weight [address] Pedro Gonzalez MD Work Phone: 1(747)506-766106 [place] [address] 02-07-2025 07:10-0400 Inhaled oxygen flow rate 2 L/min Dr. Pedro Gonzalez MD Work Phone: [facility] 2025 10:59-0400 Body height 167.[address] Pedro Gonzalez MD Work Phone: 3(742)384-919660 [address] 02-04-2025 23:21-0400 Body temperature 97.3 [degF] Dr. Pedro Gonzalez MD Work Phone: 6(995)392-466306 [place] [address] 02-04-2025 23:21-0400 Diastolic blood pressure 68 mm[Hg] Dr. Pedro Gonzalez MD Work Phone: [facility] 02-04-2025 23:21-0400 Heart rate 78 /min Dr. Pedro Gonzalez MD Work Phone: 5(983)765-592060 [address] 02-04-2025 23:21-0400 Respiratory rate 18 /min Dr. Pedro Gonzalez MD Work Phone: 0(536)887-903906 [place] [address] 02-04-2025 23:21-0400 SaO2% (BldA) [Mass fraction] 98 % Dr. Pedro Gonzalez MD Work Phone: [facility] 02-04-2025 23:21-0400 Systolic blood pressure 103 mm[Hg] Dr. Pedro Gonzalez MD Work Phone: [facility] 02-04-2025 21:43-0400 Inhaled oxygen concentration 28 % Dr. Pedro Gonzalez MD Work Phone: [facility] 02-04-2025 21:00-0400 Inhaled oxygen flow rate 2 L/min Dr. Pedro Gonzalez MD Work Phone: 3(473)862-201237 [place] [address] 02-04-2025 17:56-0400 Body height 167.[address] Pedro Gonzalez MD Work Phone: 2(879)290-139337 [place] [address] 02-04-2025 17:56-0400 Body mass index (BMI) [Ratio] 31.4 kg/m2 Dr. Pedro Gonzalez MD Work Phone: 2(537)956-304937 [place] [address] 02-04-2025 17:56-0400 Body weight 88.[address] Pedro Gonzalez MD Work Phone: 5(638)408-369337 [place] [address] 02-04-2025 09:01-0400 Body height 167.[address] Pedro Gonzalez MD Work Phone: 3(790)748-981037 [place] [address] 02-04-2025 09:01-0400 Body mass index (BMI) [Ratio] 29 kg/m2 Dr. Pedro Gonzalez MD Work Phone: 2(243)434-003737 [place] [address] 02-04-2025 09:01-0400 Body weight 81.[address] Pedro Gonzalez MD Work Phone: 4(355)284-941537 [place] [address] 02-04-2025 09:01-0400 Diastolic blood pressure 49 mm[Hg] Dr. Pedro Gonzalez MD Work Phone: 6(348)518-348237 [place] [address] 02-04-2025 09:01-0400 Heart rate 78 /min Dr. Pedro Gonzalez MD Work Phone: 9(426)057-229937 [place] [address] 02-04-2025 09:01-0400 Respiratory rate 18 /min Dr. Pedro Gonzalez MD Work Phone: 9(000)486-661737 [place] [address] 02-04-2025 09:01-0400 Systolic blood pressure 86 mm[Hg] Dr. Pedro Gonzalez MD Work Phone: 9(699)086-426937 [place] [address] 12-25-2024 10:20-0400 Body height 167.[address] Pedro Gonzalez MD Work Phone: 5(597)901-174737 [place] [address] 12-25-2024 10:20-0400 Body mass index (BMI) [Ratio] 29.3 kg/m2 Dr. Pedro Gonzalez MD Work Phone: 0(381)424-692537 [place] [address] 12-25-2024 10:20-0400 Body weight 82.[address] Pedro Gonzalez MD Work Phone: [facility] 12-25-2024 10:20-0400 Diastolic blood pressure 71 mm[Hg] Dr. Pedro Gonzalez MD Work Phone: 4(797)695-864306 [place] [address] 12-25-2024 10:20-0400 Heart rate 80 /min Dr. Pedro Gonzalez MD Work Phone: 8(870)414-342206 [place] [address] 12-25-2024 10:20-0400 Respiratory rate 20 /min Dr. Pedro Gonzalez MD Work Phone: 5(748)318-410637 [place] [address] 12-25-2024 10:20-0400 Systolic blood pressure 117 mm[Hg] Dr. Pedro Gonzalez MD Work Phone: 7(949)178-591560 [address] 12-13-2024 09:08-0400 Body temperature 98.1 [degF] Dr. Pedro Gnozalez MD Work Phone: 9(305)138-433260 [address] 12-13-2024 09:08-0400 Diastolic blood pressure 63 mm[Hg] Dr. Pedro Gonzalez MD Work Phone: 1(518)538-163760 [address] 12-13-2024 09:08-0400 Heart rate 69 /min Dr. Pedro Gonzalez MD Work Phone: 4(729)470-821706 [place] [address] 12-13-2024 09:08-0400 Respiratory rate 18 /min Dr. Pedro Gonzalez MD Work Phone: 9(129)396-459006 [place] [address] 12-13-2024 09:08-0400 SaO2% (BldA) [Mass fraction] 100 % Dr. Pedro Gonzalez MD Work Phone: [facility] 12-13-2024 09:08-0400 Systolic blood pressure 115 mm[Hg] Dr. Pedro Gonzalez MD Work Phone: 5(249)481-479706 [place] [address] 12-13-2024 09:07-0400 Body mass index (BMI) [Ratio] 29.7 kg/m2 Dr. Pedro Gonzalez MD Work Phone: 2(511)090-814006 [place] [address] 12-13-2024 09:07-0400 Body weight 83.[address] Pedro Gonzalez MD Work Phone: [facility] 08-09-2024 09:23-0500 Body height 165.[address] Pedro Gonzalez MD Work Phone: [facility] 08-09-2024 09:23-0500 Body mass index (BMI) [Ratio] 29.9 kg/m2 Dr. Pedro Gonzalez MD Work Phone: 8(308)531-032952 [address] 08-09-2024 09:23-0500 Body weight 81.[address] Pedro Gonzalez MD Work Phone: 3(762)226-771452 [address] 08-09-2024 09:23-0500 Diastolic blood pressure 57 mm[Hg] Dr. Pedro Gonzalez MD Work Phone: 2(284)023-329752 [address] 08-09-2024 09:23-0500 Heart rate 57 /min Dr. Pedro Gonzalez MD Work Phone: 3(700)668-984519 [place] [address] 08-09-2024 09:23-0500 Respiratory rate 16 /min Dr. Pedro Gonzalez MD Work Phone: 8(068)181-621552 [address] 08-09-2024 09:23-0500 Systolic blood pressure 102 mm[Hg] Dr. Pedro Gonzalez MD Work Phone: [facility] 02-09-2022 11:09-0400 Body height 165.[address] Pedro Gonzaelz Work Phone: [facility] Work Phone: 02-09-2022 11:09-0400 Body mass index (BMI) [Ratio] 30.8 kg/m2 Dr. Pedro Gonzalez Work Phone: [facility] Work Phone: 02-09-2022 11:09-0400 Body weight 84.[address] Pedro Gonzalez Work Phone: [facility] Work Phone: 02-09-2022 11:09-0400 Diastolic blood pressure 62 mm[Hg] Dr. Pedro Gonzalez Work Phone: [facility] Work Phone: 02-09-2022 11:09-0400 Heart rate 60 /min Dr. Pedro Gonzalez Work Phone: [facility] Work Phone: 02-09-2022 11:09-0400 Respiratory rate 16 /min Dr. Pedro Gonzalez Work Phone: [facility] Work Phone: 02-09-2022 11:09-0400 Systolic blood pressure 130 mm[Hg] Dr. Pedro Gonzalez Work Phone: [facility] Work Phone: 01-27-2022 13:25-0400 Diastolic blood pressure 82 mm[Hg] Dr. Pedro Gonzalez Work Phone: [facility] Work Phone: 01-27-2022 13:25-0400 SaO2% (BldA) [Mass fraction] 94 % Dr. Pedro Gonzalez Work Phone: [facility] Work Phone: 01-27-2022 13:25-0400 Systolic blood pressure 147 mm[Hg] Dr. Pedro Gonzalez Work Phone: [facility] Work Phone: 01-27-2022 10:14-0400 Body height 165.[address] Pedro Gonzalez Work Phone: [facility] Work Phone: 01-27-2022 10:14-0400 Body mass index (BMI) [Ratio] 30.8 kg/m2 Dr. Pedro Gonzalez Work Phone: [facility] Work Phone: 01-27-2022 10:14-0400 Body temperature 97.1 [degF] Dr. Pedro Gonzalez Work Phone: [facility] Work Phone: 01-27-2022 10:14-0400 Body weight 84.[address] Pedro Gonzalez Work Phone: [facility] Work Phone: 01-27-2022 10:14-0400 Heart rate 80 /min Dr. Pedro Gonzalez Work Phone: [facility] Work Phone: 01-27-2022 10:14-0400 Respiratory rate 14 /min Dr. Pedro Gonzalez Work Phone: [facility] Work Phone: 01-14-2022 13:20-0400 Body mass index (BMI) [Ratio] 30.6 kg/m2 Dr. Pedro Gonzalez Work Phone: [facility] Work Phone: 01-14-2022 13:20-0400 Body temperature 97.2 [degF] Dr. Pedro Gonzalez Work Phone: [facility] Work Phone: 01-14-2022 13:20-0400 Body weight 83.[address] Pedro Gonzalez Work Phone: [facility] Work Phone: 01-14-2022 13:20-0400 Diastolic blood pressure 64 mm[Hg] Dr. Pedro Gonzalez Work Phone: [facility] Work Phone: 01-14-2022 13:20-0400 Heart rate 68 /min Dr. Pedro Gonzalez Work Phone: [facility] Work Phone: 01-14-2022 13:20-0400 Respiratory rate 16 /min Dr. Pedro Gonzalez Work Phone: [facility] Work Phone: 01-14-2022 13:20-0400 SaO2% (BldA) [Mass fraction] 97 % Dr. Pedro Gonzalez Work Phone: [facility] Work Phone: 01-14-2022 13:20-0400 Systolic blood pressure 112 mm[Hg] Dr. Pedro Gonzalez Work Phone: [facility] Work Phone: 12-13-2021 13:34-0400 Body mass index (BMI) [Ratio] 30.9 kg/m2 Dr. Pedro Gonzalez Work Phone: [facility] Work Phone: 12-13-2021 13:34-0400 Body weight 84.[address] Pedro Gonzalez Work Phone: [facility] Work Phone: 12-13-2021 13:34-0400 Diastolic blood pressure 66 mm[Hg] Dr. Pedro Gonzalez Work Phone: [facility] Work Phone: 12-13-2021 13:34-0400 Heart rate 65 /min Dr. Pedro Gonzalez Work Phone: [facility] Work Phone: 12-13-2021 13:34-0400 Respiratory rate 18 /min Dr. Pedro Gonzalez Work Phone: [facility] Work Phone: 12-13-2021 13:34-0400 Systolic blood pressure 129 mm[Hg] Dr. Pedro Gonzalez Work Phone: [facility] Work Phone: 12-13-2021 13:34-0400 Body height 165.[address] Pedro Gonzalez Work Phone: [facility] Work Phone: 12-13-2021 13:34-0400 Body mass index (BMI) [Ratio] 30.9 kg/m2 Dr. Pedro Gonzalez Work Phone: [facility] Work Phone: 12-13-2021 13:34-0400 Body weight 84.[address] Pedro Gonzalez Work Phone: [facility] Work Phone: 12-13-2021 13:34-0400 Diastolic blood pressure 66 mm[Hg] Dr. Pedro Gonzalez Work Phone: [facility] Work Phone: 12-13-2021 13:34-0400 Heart rate 65 /min Dr. Pedro Gonzalez Work Phone: [facility] Work Phone: 12-13-2021 13:34-0400 Respiratory rate 18 /min Dr. Pedro Gonzalez Work Phone: [facility] Work Phone: 12-13-2021 13:34-0400 Systolic blood pressure 129 mm[Hg] Dr. Pedro Gonzalez Work Phone: [facility] Work Phone: 09-10-2021 07:52-0500 Body mass index (BMI) [Ratio] 30.6 kg/m2 Dr. Pedro Gonzalez Work Phone: [facility] Work Phone: 09-10-2021 07:52-0500 Body weight 83.[address] Pedro Gonzalez Work Phone: [facility] Work Phone: 09-10-2021 07:52-0500 Diastolic blood pressure 63 mm[Hg] Dr. Pedro Gonzalez Work Phone: [facility] Work Phone: 09-10-2021 07:52-0500 Heart rate 59 /min Dr. Pedro Gonzalez Work Phone: [facility] Work Phone: 09-10-2021 07:52-0500 Respiratory rate 16 /min Dr. Pedro Gonzalez Work Phone: [facility] Work Phone: 09-10-2021 07:52-0500 Systolic blood pressure 129 mm[Hg] Dr. Pedro Gonzalez Work Phone: [facility] Work Phone: Encounters Encounter Date Encounter Type Care Provider Facility Start: 04-16-2025 End: 04-16-[address] Pedro Gonzalez MD Work Phone: -[facility] Start: 04-16-2025 End: 04-16-[address] Pedro Gonzalez MD -[facility] Start: 04-15-2025 End: 04-16-2025 ambulatory Pedro Gonzalez Facility:[facility] Start: 04-15-[address] Pedro Gonzalez MD -[facility] Work Phone: Start: 04-07-2025 End: 04-07-2025 Patient encounter procedure Andrzej Marinelli NP-C -[facility] Work Phone: Start: 04-07-2025 End: 04-07-[address] Pedro Gonzalez MD Work Phone: -[facility] Start: 04-02-2025 End: 04-02-2025 Emergency department patient visit Dr. Pedro Gonzalez MD Work Phone: -Emergency Department Work Phone: Start: 02-26-2025 End: 02-26-2025 Patient encounter procedure Andrzej Marinelli NP-C -[facility] Work Phone: Start: 02-26-2025 End: 02-26-[address] Pedro Gonzalez MD Work Phone: -[facility] Start: 02-11-2025 Non-patient / [facility] Work Phone: Start: 02-11-2025 End: 02-11-[address] Pedro Gonazlez MD Work Phone: -Pulmonary Services/Neurology Start: 02-11-2025 End: 02-11-2025 Patient encounter procedure Andrzej CUELLAR -Pulmonary Services/Neurology Work Phone: Start: 02-11-2025 End: 02-11-2025 Patient encounter procedure Andrzej Marinelli NP-C -[facility] Work Phone: Start: 02-11-2025 End: 02-11-[address] Pedro Gonzalez MD Work Phone: [facility] Start: 02-11-2025 End: 02-11-2025 ambulatory Pedro Gonzalez Facility:[facility] Start: 02-08-2025 Non-patient / Non-visit Dr. Yeny Gabriel [facility] Work Phone: Start: 02-08-2025 Non-patient / Non-visit Dr. Glen Haywood MD [facility] Start: 02-07-2025 Non-patient / Non-visit Dr. Glen Haywood MD [facility] Start: 02-07-2025 Non-patient / Non-visit Dr. Criss mckeon MD [facility] Start: 02-07-2025 Non-patient / Non-visit Dr. Pedro Valentin [facility] Work Phone: Start: 02-06-2025 Non-patient / Non-visit Dr. Criss mckeon MD [facility] Start: 02-06-2025 Non-patient / Non-visit Dr. Pedro Valentin [facility] Work Phone: Start: 2025 ambulatory Cj Gardiner Facility:[facility] Start: 2025 Non-patient / Non-visit Dr. Caba [facility] Start: 2025 Non-patient / Non-visit Dr. Pedro Valentin [facility] Work Phone: Start: 02-04-2025 End: 02-08-2025 Evaluation and management of inpatient Dr. Rea Cancino MD -Intensive Care Unit Work Phone: Start: 02-04-2025 ambulatory Pedro Gonzalez Facility:[facility] Start: 02-04-2025 Non-patient / Non-visit Dr. Rea Cancino MD -[facility] Work Phone: Start: 02-04-2025 End: 02-04-2025 Patient encounter procedure Andrzej Marinelli NP-C -[facility] Work Phone: Start: 02-04-2025 End: 02-04-[address] Pedro Gonzalez MD Work Phone: [facility] Work Phone: Start: 12-25-2024 End: 12-25-2024 Patient encounter procedure Andrzej Marinelli NP- -[facility] Work Phone: Start: 12-25-2024 End: 12-25-[address] Pedro Gonzalez MD Work Phone: [facility] Work Phone: Start: 12-20-2024 ambulatory Pedro Gonzalez Facility:[facility] Start: 12-13-2024 Non-patient / Non-visit Dr. Gaurang lynch MD -[facility] Work Phone: Start: 12-12-2024 ambulatory Aden Knutson Facility:[facility] Start: 12-12-2024 Non-patient / Non-visit Dr. Aden mccartney MD -[facility] Start: 12-12-2024 Non-patient / Non-visit Dr. Gaurang lynch MD -[facility] Work Phone: Start: 12-12-2024 ambulatory Gaurang Cortes Facility:[facility] Start: 12-12-2024 End: 12-13-2024 Evaluation and management of inpatient Dr. Gaurang Cortes MD -Progressive Care Unit Work Phone: Start: 11-18-2024 End: 11-18-[address] Pedro Gonzalez MD Work Phone: [facility] Work Phone: Start: 11-18-2024 End: 11-18-2024 Patient encounter procedure Karo Sewell NP- -[facility] Work Phone: Start: 11-18-2024 End: 11-18-2024 ambulatory Karo Sewell NP Facility:[facility] Start: 11-04-2024 End: 11-04-[address] Pedro Gonzalez MD Work Phone: [facility] Work Phone: Start: 11-04-2024 End: 11-04-2024 Patient encounter procedure Karo Sewell SENIOR ENVIRONMENTAL ENGINEER-C -Laboratory, [place] Work Phone: Start: 11-04-2024 End: 11-04-2024 ambulatory Pedro Gonzalez Facility:[facility] Start: 08-09-2024 End: 08-09-2024 Patient encounter procedure Andrzej Marinelli SENIOR ENVIRONMENTAL ENGINEER-C -Laboratory Work Phone: Start: 08-09-2024 End: 08-09-2024 Patient encounter procedure Andrzej Marinelli SENIOR ENVIRONMENTAL ENGINEER-C -[facility] Work Phone: Start: 08-09-2024 End: 08-09-2024 ambulatory Pedro Gonzalez [facility] Facility:[facility] Start: 08-09-2024 End: 08-09-2024 ambulatory Andrzej Marinelli SENIOR ENVIRONMENTAL ENGINEER Facility:[facility] Start: 03-15-2022 Non-patient / Non-visit Dr. Wesley Gonzalez Work Phone: [facility] Start: 03-11-2022 Non-patient / Non-visit Dr. Wesley Gonzalez Work Phone: [facility] Start: 03-11-2022 End: 03-11-[address] Pedro Gonzalez Work Phone: [facility]-Cardiovascular Services Start: 02-09-2022 End: 02-09-[address] Pedro Gonzalez Work Phone: [facility] Start: 02-02-2022 End: 02-02-[address] Pedro Gonzalez Work Phone: [facility]-Sleep Lab Start: 02-01-2022 End: 02-01-[address] Pedro Gonzalez Work Phone: [facility]-Laboratory Start: 01-27-2022 End: 01-27-2022 Emergency department patient visit Dr. Pedro Gonzalez Work Phone: [facility]-Emergency Department Start: 01-14-2022 End: 01-14-[address] Pedro Gonzalez Work Phone: [facility]-Pulmonary Medicine [facility] Start: 12-31-2021 End: 12-31-[address] Pedro Gonzalez Work Phone: [facility]-Sleep Lab Start: 12-13-2021 End: 12-13-[address] Pedro Gonzalez Work Phone: [facility] Start: 09-10-2021 End: 09-10-[address] Pedro Gonzalez Work Phone: [facility] Start: 02-27-2019 End: 05-10-2019 Patient encounter procedure SAJI PENA [facility] Start: 02-25-2019 End: 02-26-2019 Evaluation and management of inpatient SAJI PENA [facility] Start: 02-07-2019 End: 02-07-2019 Patient encounter procedure SAJI PENA [facility] Start: 01-11-2019 End: 01-11-2019 Patient encounter procedure SAJI PENA [facility] Start: 03-07-2018 End: 03-08-2018 Evaluation and management of inpatient FAROOQ R ALLEN [facility] Start: 01-12-2018 End: 01-19-2018 Patient encounter BHARGAV Mejia ([place]) [facility] Start: 12-29-2017 End: 12-29-2017 Patient encounter FAROOQ R ALLEN [facility] Start: 12-27-2017 End: 12-29-2017 Evaluation and management of inpatient FAROOQ R ALLEN [facility] Start: 12-26-2017 End: 01-01-2018 Patient encounter BHARGAV Mejia (PA) [facility] Start: 12-21-2017 End: 12-21-2017 Patient encounter LADARIUS CANCINO [facility] Start: 11-22-2017 End: 11-23-2017 Patient encounter LADARIUS CANCINO [facility] Start: 11-10-2017 End: 11-20-2017 Patient encounter RACHAEL PEDERSEN [facility] Start: 11-03-2017 End: 11-03-2017 Patient encounter LADARIUS CANCINO [facility] Start: 11-03-2017 End: 11-03-2017 Patient encounter LADARIUS CANCINO [facility] Start: 11-03-2017 End: 11-03-2017 Patient encounter LADARIUS [facility] Procedures Date Procedure Procedure Detail Performing Clinician Start: 04-02-2025 X-ray of chest, PA a nd lateral views Dr. Pedro Gonzalez MD Work Phone: Start: 04-02-[address] Pedro Gonzalez MD Work Phone: Start: 02-08-[address] Pedro Gonzalez MD Work Phone: Start: 02-08-2025 Lymphocyte percent differential count Dr. Pedro Gonzalez MD Work Phone: Start: 02-07-2025 Radionuclide study o f abdomen Dr. Pedro Gonzalez MD Work Phone: Start: 02-06-2025 Serum inorganic phosphate measurement Dr. Pedro Gonzalez MD Work Phone: Start: 2025 Gram stain microscopy D lissy Gonzalez MD Work Phone: Start: [address] Pedro Gonzalez MD Work Phone: Start: 2025 Respiratory microbia l culture Dr. Pedro Gonzalez MD Work Phone: Start: 02-04-2025 US scan of gallbladder Dr. Pedro Gonzalez MD Work Phone: Start: 02-04-2025 CT of chest, abdomen and pelvis without contrast Dr. Pedro Gonzalez MD Work Phone: Start: 02-04-2025 Plain chest X-ray Dr. Roz Gonzalez MD Work Phone: Start: 06-24-2025 Urnls dip stick/tabl et reagent auto microscopy Dr. Pedro Gonzalez MD Work Phone: Start: 02-04-[address] Pedro Gonzalez MD Work Phone: Start: 02-04-[address] Pedro Gonzalez MD Work Phone: Start: 02-04-[address] Pedro Gonzalez MD Work Phone: Start: 12-13-[address] Pedro Gonzalez MD Work Phone: Start: 12-13-2024 Serum inorganic phosphate measurement Dr. Pedro Gonzalez MD Work Phone: Start: 12-12-2024 X-ray of chest, PA a nd lateral views Dr. Pedro Gonzalez MD Work Phone: Start: 03-11-2022 Radionuclide imaging of perfusion of myocardium under exercise stress Dr. Pedro Gonzalez Work Phone: Start: 01-27-2022 Plain chest X-ray Dr. Roz Gonzalez Work Phone: Start: 02-26-2019 Urinalysis SAJI ANDRADE Comment on above: Result Comment: URIN ALYSIS Performed By: #### [id number] #### [facility],[address] [place] [address] Start: 08-14-2001 History of coronary artery bypass grafting H/O coronary artery bypass surgery Andrzej Marinelli SENIOR ENVIRONMENTAL ENGINEER-C Comment on above: CABG: GRAJEDA to LAD ; Redo CABG GRAJEDA to LAD, SVG to RPDA 01/13 Plan of Treatment Date Care Activity Detail Author Start: 04-02-2025 [facility] Start: 04-02-2025 [facility] Start: 02-11-2025 24 Hour ECG [facility] Start: 02-08-2025 Patient discharge [facility] Start: 02-07-2025 Referral to general surgeon [facility] Start: 02-06-2025 Application of inter mittent pneumatic compression device [facility] Start: 02-06-2025 Care planning and pr oblem solving actions [facility] Start: 02-06-2025 End: 02-06-2025 Care planning and problem solving actions [facility] Start: 2025 Thyroid stimulating hormone measurement [facility] Start: 2025 [facility] Start: 2025 Following clinical p athway protocol [facility] Start: 2025 Application of elastic bandage [facility] Start: 2025 Assessment of risk o f venous thromboembolism [facility] Start: 2025 Bacteria identified in Sputum by Culture [facility] Start: 2025 Consultation [facility] Start: 2025 Elevation of affecte d extremity [facility] Start: 2025 Fall prevention [facility] Start: 2025 Incentive spirometry [facility] Start: 2025 Inhalation therapy procedure [facility] Start: 2025 Insertion of cathete r into peripheral vein [facility] Start: 2025 Introduction of urin carol catheter [facility] Start: 2025 Measuring intake and output [facility] Start: 2025 Notification of physician [facility] Start: 2025 Oxygen therapy [facility] Start: 2025 Patient education [facility] Start: 2025 Patient referral to dietitian [facility] Start: 2025 Providing care accor ding to standard [facility] Start: 2025 Provision of activit y privileges [facility] Start: 2025 Referral for physical therapy [facility] Start: 2025 Referral to exercise instruct [facility] Start: 2025 Referral to occupati onal therapist [facility] Start: 2025 Referral to service [facility] Start: 2025 Taking nasal swab [facility] Start: 2025 [facility] Start: 02-04-2025 Verification routine [facility] Start: 02-04-2025 Partial thromboplast in time, activated [facility] Start: 02-04-2025 Prothrombin time [facility] Start: 02-04-2025 Respiratory pathogen s DNA and RNA panel - Respiratory specimen by RHIANNA with probe detection [facility] Start: 02-04-2025 Admission procedure [facility] Start: 02-04-2025 Continuous pulse oximetry [facility] Start: 02-04-2025 Dual pressure sponta neous ventilation support [facility] Start: 02-04-2025 End: 02-04-[address] [facility] Start: 02-04-2025 Bacteria identified in Blood by Culture Blood Culture [facility] Start: 02-04-2025 Bacteria identified in Urine by Culture Urine Culture [facility] Start: 02-04-2025 Blood culture Blood Culture [facility] Start: 02-04-2025 End: 02-04-2025 Evaluation of diagnostic study results [facility] Start: 12-13-2024 Patient discharge [facility] Start: 12-12-2024 Following clinical p athway protocol [facility] Start: 12-12-2024 Transfusion of blood product [facility] Start: 12-12-2024 Ambulation without limitation [facility] Start: 12-12-2024 Assessment of risk o f venous thromboembolism [facility] Start: 12-12-2024 Catheterization of vein [facility] Start: 12-12-2024 Elevation of affecte d extremity [facility] Start: 12-12-2024 Incentive spirometry [facility] Start: 12-12-2024 Inhalation therapy procedure [facility] Start: 12-12-2024 Insertion of cathete r into peripheral vein [facility] Start: 12-12-2024 Measuring intake and output [facility] Start: 12-12-2024 Notification of physician [facility] Start: 12-12-2024 Oxygen therapy [facility] Start: 12-12-2024 Patient education [facility] Start: 12-12-2024 Providing care accor ding to standard [facility] Start: 12-12-2024 Hospital admission, emergency, from emergency room, medical nature [facility] Start: 12-12-2024 Admission procedure [facility] Start: 12-12-2024 End: 12-12-[address] [facility] Alanine aminotransfe rase [Enzymatic activity/volume] in Serum or Plasma [facility] Albumin [Mass/volume ] in Serum or Plasma [facility] Alkaline phosphatase [Enzymatic activity/volume] in Serum or Plasma [facility] Anion gap in Serum or Plasma [facility] Basic metabolic 2008 panel with ionized calcium - Serum or Plasma [facility] Bilirubin, total measurement [facility] BUN/Creatinine ratio [facility] Calcium [Mass/volume ] in Serum or Plasma [facility] Carbon dioxide, tota l [Moles/volume] in Central venous blood [facility] Cholesterol [Mass/vo lume] in Serum or Plasma [facility] Cholesterol in HDL [Mass/volume] in Serum or Plasma [facility] Creatinine [Mass/vol ume] in Serum or Plasma [facility] Erythrocyte mean cor puscular volume determination [facility] Glucose [Mass/volume ] in Serum or Plasma [facility] Hematocrit [Volume F raction] of Blood [facility] Hemoglobin [Mass/vol ume] in Blood [facility] INR in Blood by Coag ulation assay [facility] Leukocytes [#/volume] in Blood [facility] Low density lipoprot ein cholesterol measurement [facility] Mean corpuscular hem oglobin concentration determination [facility] Mean corpuscular hem oglobin determination [facility] Measurement of renal function [facility] Neutrophil count [facility] Neutrophil percent differential count [facility] Patient Education [facility] Work Phone: Patient referral [facility] Work Phone: Platelets [#/volume] in Blood [facility] Potassium measurement [facility] Procalcitonin [Mass/ volume] in Serum or Plasma by Immunoassay [facility] Red blood cell count [facility] Red cell distributio n width determination [facility] Serum chloride measurement [facility] Sodium measurement [facility] Total cholesterol:HD L ratio measurement [facility] Total protein measurement [facility] Triglycerides measurement [facility] Urea nitrogen [Mass/ volume] in Serum or Plasma [facility] Urine culture [facility] VLDL cholesterol measurement [facility] Payers Date Payer Category Payer Unknown [id number] 2024 Self-pay [id number] 1940 Unknown [id number] 2.16.84 0.1.460849.3.579.2.651 1940 Unknown [id number] 2.16.84 0.1.540689.3.579.2.651 1940 Unknown [id number] 2.16.84 0.1.051376.3.579.2.651 Unknown [id number] Unknown Unknown [facility] [employer] . [id number] Unknown [id number] 2.16.8 40.1.451081.3.579.2.462 Unknown [id number] 2.16.8 40.1.446211.3.579.2.462 Unknown [id number] 2.16.8 40.1.135602.3.579.2.462 Unknown [id number] 2.16.8 40.1.331411.3.579.2.462 Unknown [id number] 2.16.8 40.1.828544.3.579.2.462 Unknown [id number] 2.16.8 40.1.298719.3.579.2.462 Unknown [id number] 2.16.8 40.1.857006.3.579.2.462 Unknown [id number] 2.16.8 40.1.764792.3.579.2.462 Unknown [id number] 2.16.8 40.1.802374.3.579.2.462 Unknown [id number] 2.16.8 40.1.142324.3.579.2.462 Unknown [id number] 2.16.8 40.1.108366.3.579.2.462 Unknown [id number] 2.16.8 40.1.791744.3.579.2.462 Unknown [id number] 2.16.8 40.1.344911.3.579.2.462 Unknown [id number] 2.16.8 40.1.687208.3.579.2.462 Unknown [id number] 2.16.8 40.1.041911.3.579.2.462 Unknown [id number] 2.16.8 40.1.503755.3.579.2.462 Unknown [id number] 2.16.8 40.1.813692.3.579.2.462 Unknown [id number] 2.16.8 40.1.117427.3.579.2.462 Unknown [id number] 2.16.8 40.1.414106.3.579.2.462 Unknown [id number] 2.16.8 40.1.783235.3.579.2.462 Unknown [id number] 2.16.8 40.1.689375.3.579.2.462 Unknown [id number] 2.16.8 40.1.257425.3.579.2.462 Unknown [id number] 2.16.8 40.1.442336.3.579.2.462 Unknown [id number] 2.16.8 40.1.952928.3.579.2.462 Unknown [id number] 2.16.8 40.1.006877.3.579.2.462 Unknown [id number] 2.16.8 40.1.196706.3.579.2.462 Unknown [id number] 2.16.8 40.1.478265.3.579.2.462 Unknown [id number] 2.16.8 40.1.347637.3.579.2.462 Unknown [id number] 2.16.8 40.1.818373.3.579.2.462 Unknown [id number] 2.16.8 40.1.803188.3.579.2.462 Unknown [id number] 2.16.8 40.1.968534.3.579.2.462 Unknown [id number] 2.16.8 40.1.850845.3.579.2.462 Social History Date Type Detail Facility Start: 12-13-2021 End: 02-09-2022 Tobacco smoking status NHIS Unknown if ever smoked [facility] Work Phone: Start: 06-20-2019 With Family [facility] Start: 1940 Sex Assigned At Male W [facility] Start: 07-14-2023 End: 04-02-2025 Tobacco smoking status NHIS Never smoked tobacco (finding) [facility] Start: 11-09-2024 End: 11-21-2024 Sex Male (finding) [facility] Sex Male [facility] Medical Equipment Procedure Code Equipment Code [...] IVELISSE 3GRM HEMOSTAT ABS FDA Start: 06-20-2019 ([id number]) Drug-eluting cor onary artery stent, bioabsorbable-polymer -coated ()[id number] FDA Start: 03-29-2022 Femoral vessel s uture implantation set ()[id number] FDA Start: 03-29-2022 Goals Date Patient Goal Desired Activity /State Functional Status Date Assessment Result Facility 02-08-2025 Functional status Ambulates [facility] Work Phone: 12-13-2024 Functional status Activity Ability Indepe ndent [facility] Work Phone: 12-13-2024 Functional status Patient Activity Ambula pat [facility] Work Phone: Mental Status Date Assessment Result Facility 02-08-2025 Cognitive function Voice/Name [facility] Work Phone: 02-04-2025 Cognitive function Level Of Cons ciousness Awake;Alert;Appropriate;Follo ws Commands [facility] Work Phone: 12-13-2024 Cognitive function Voice/Name [facility] Work Phone: Clinical Notes 08-09-2024 to 04-02-2025 Note Date & Type Note Facility 04-02-2025 Radiology Diagnostic study note [facility] Imaging Services [address] [place], [place] [address] Chest PA and Lateral MR#: [id number] Acct: [id number] Name: FLORIN VARGAS Rep #: [id number] : 1940 M 85 From: Pancho Day MD PCP: Dr. Pedro Gonzalez MD Status: REG ER Study:Chest PA and Lateral Date of Exam: 04/02/25 Exam# [id number] Ordering Dr: Wesley Montes MD PROCEDURE: CHEST PA AND LATERAL 04/02/2025 REASON FOR EXAM: SOB, LIKELY CHF TECHNIQUE: CHEST PA AND LATERAL COMPARISON: Chest x-ray of 02/04/2025 RAD/Chest PA and Lateral IMPRESSION: Prior sternotomy again seen. Aortic valve stent graft in place. Prior coronaryartery stenting noted. Right costophrenic angle blunting is seen, most consistent with a small right pleural effusion. Mild interstitial pulmonary edema also noted. No focal infiltrate is seen. No pneumothorax is noted. The cardiomediastinal silhouette is remarkable for a partially calcified and tortuous aorta. No significant cardiomegaly. 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 Bilateral shoulder degenerative changes are seen, right worse than left. Reading Location: [place] [address] CC: Dr. Pedro Gonzalez MD; Dr. Dionne Montes MD ~ Oil Field Tester: Signed [facility] 02-08-2025 Progress note Note Date/Time February 08, 2025 1:16pm [facility] Medical Records Department [address] [place] [address] Progress Note - Surgery 02/08/25 1307 MR#: [id number] Acct: [id number] Name: FLORIN VARGAS Rep #:[id number] : 1940 85 From: Glen Haywood MD PCP: Dr. Pedro Gonzalez MD Status:ADM IN Location: [place] [address] Subjective Subjective Patient seen and evaluated on rounds this morning. Patient without any abdominal complaints whatsoever. He states that he is feeling good and is excited to go home today. Patient tolerated heart healthy diet without any exacerbation of any abdominal complaints. Objective Data Objective Data Vital Signs: Vital Signs Temp Pulse Resp BP Pulse Ox O2 Del Method O2 Flow Rate 97.1 F L 69 16 104/69 99 Room Air 2 02/08/25 11:00 02/08/25 11:00 02/08/25 11:00 02/08/25 11:00 02/08/25 11:00 02/08/25 11:00 02/07/25 07:10 FiO2 24 02/08/25 05:21 Oxygen Flow Rate (L/min) 2 Oxygen Delivery Method Room Air Weight: 196 lb 3.382 oz Body Mass Index (BMI) 31.6 Intake & Output: Intake and Output for Last 24 Hours 02/06/25 02/07/25 02/08/25 23:59 23:59 23:59 Intake Total 1310.73 / 1310.73 350 / 350 440 / 440 Output Total 1100 / 1100 Balance 210.73 / 210.73 350 / 350 440 / 440 Lab / Micro Data 02/08/25 06:21 02/08/25 06:21 Labs: Laboratory Results - last 24 hr 02/08/25 06:21: WBC 5.7, RBC 3.51 L, Hgb 10.2 L, Hct 30.4 L, MCV 86.6, MCH 29.1,MCHC 33.6, RDW Std Deviation 46.5 H, RDW Coeff of Jenaro 14.6, Plt Count 124 L, MPV11.2, Immature Gran % (Auto) 0.300, Neut % (Auto) 51.1, Lymph % (Auto) 38.6, [place] % (Auto) 6.6, Eos % (Auto) 3.1, Baso % (Auto) 0.3, Absolute Neuts (auto) 2.9, Absolute Lymphs (auto) 2.21, Nucleated RBC % 0, Atypical Lymphocytes 2+, Platelet Estimate SLT DEC, Plt Morphology Comment GIANT, Polychromasia 1+, Sodium 137, Potassium 4.1, Chloride 105, Carbon Dioxide 20.4 L, Anion Gap 12, BUN 36 H, Creatinine 1.63 H, Estim Creat Clear Calc 34.62 L, Est GFR (MDRD) Non-Af 41 L, BUN/Creatinine Ratio 21.9 H, Glucose 96, Calcium 8.1, Total Bilirubin 0.62, AST 29, ALT 51 H, Alkaline Phosphatase 103, Total Protein 5.7 L, Albumin 3.1 L, Globulin 2.7, Albumin/Globulin Ratio 1.2 Micro: Microbiology 02/05/25 10:00 Sputum, Expectorated/Coughed Gram Stain - Final 02/05/25 10:00 Sputum, Expectorated/Coughed Respiratory Culture - Final Mixed normal respiratory ana rosa. No Streptococcus pneumoniae, beta-hemolytic Streptococcus or Staphylococcus aureus isolated. 02/04/25 18:37 Blood Culture (Wb) - Anticubital Left Blood Culture - Preliminary No growth in 48 hours. 02/04/25 18:30 Blood Culture (Wb) - Anticubital Right Blood Culture - Preliminary No growth in 48 hours. 02/04/25 18:58 Urine, Clean Catch Urine Culture - Final Culture exhibits no growth. 02/05/25 03:15 Mucosa - Nasopharyngeal Respiratory Panel (PCR) - Final Rhythm Strip Rhythm Strip: Sinus Rhythm Rate: 66 Ectopy: PVC(s) Physical Exam Narrative He is alert and oriented x 3. He is in no acute distress. Abdomen is entirely soft, nontender and nondistended. No right upper quadrant tenderness to palpation Assessment & Plan Assessment/Plan (1) Gallbladder anomaly: PLAN: Plan The patient is an 85-year-old male admitted with shortness of breath and CHF exacerbation. Clinically he does not exhibit any signs of biliary colic and so would not recommend any type of surgical intervention for his gallbladder. Okayfor discharge to home from a surgical standpoint 02/08/25 1316 <Electronically signed by Glen Haywood MD> Cosigner Signature (if applicable): CC: ~ Signed [facility] Work Phone: 1(212) 937-407406-28-2025 Discharge summary [facility] Medical Records Department [address] [place] [address] Discharge Summary 02/08/25 1418 MR#: [id number] Acct: [id number] Name: FLORIN VARGAS Rep #:[id number] : 1940 85 From: Yeny Gabriel DO PCP: Dr. Pedro Gonzalez MD Status:ADM IN Location: [place] [address] Providers Date of Admission: 02/04/25 Primary Care Physician: Dr. Pedro Gonzalez MD Consultations 02/05/25 00:02 Consult: Cardiology Routine Consulting Provider: Cj Gardiner Reason for Consult: HF Exac, elevated troponins EMERGENT Consult: No MD Notified: Yes Date Notified: 02/04/25 Time Notified: 22:45 Method of Notification: Text Consult: Stone Repairer / Pulmonary Medicine Routine Consulting Provider: Intensivists/Pulmonary Med Reason for Consult: Septic appearance complicated by resp failure, HF exac EMERGENT Consult: No MD Notified: Yes Date Notified: 02/04/25 Time Notified: 23:04 Method of Notification: Text 02/07/25 13:49 Consult: General Surgery Routine Consulting Provider: Glen Haywood Reason for Consult: possilbe cholecystitis. 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 Instructions: Until instructed to restart by cardiology clopidogrel 75 mg tablet 75 mg PO Q OTHER DAY #45 tabs 11/12/24 dapagliflozin propanediol 10 mg tablet 10 mg PO heart 02/05/25 amoxicillin 875 mg-potassium clavulanate 125 mg tablet 1 tab PO BID #22 tabs 02/08/25 furosemide 40 mg tablet 40 mg PO DAILY #30 tabs 02/08/25 metoprolol tartrate 25 mg tablet 12.5 mg (1/2 x 25 mg) PO DAILY #60 tabs 02/08/25 Hospital Course Operations None Procedures 2-D Echocardiogram, EKG and - (Chest x-ray/CT abdomen chest and pelvis/gallbladder ultrasound/HIDA scan) Summary of Care Provided Minutes Spent on Discharge: 45 Hospital Course: Mr. Vargas is an 85-year-old white male who presented to the emergency department at [facility] on 02/04/2025 with a chief complaint of dyspnea, fatigue, and malaise, with cough that had been progressively worsening. The dyspnea started about and he had increasing fatigue and malaise and was feeling worse about 48 hours prior to presentation. He was evaluated inthe outpatient office by cardiology on the day of presentation and was found to have some borderline bloodpressure and patient revealed he had not been eating or drinking much and constipation. The plan was to change his diuretics but given his worsening status it prompted ED evaluation. Vital signs on pr esentation showed temperature 100.5, heart rate 98, blood pressure 94/63, respiratory was 21 and pulse ox was 93% on room air initially however he desatted to 89% then was placed on 2 L nasal cannula. CBC showed normal white count with anemia at 10.6 which is consistent with his baseline and thrombo cytopenia at 82,000 again which is chronic. He had hyponatremia with a sodium of 125, elevated BUN and serum creatinine at 58 and 1.94 respectively. His initial troponin was elevated 108 with a deltaof 111 and a 4-hour troponin of 114. And his BNP was 28,079. His UA was not suggestive of infection. EKG did not show signs of acute ischemia. A VBG was performed and showed normal pH at 7.47. Chest x-ray showed interstitial prominent markings with cardiogenic pulmonary edema. CT of the chest abdomen and pelvis showed trace bilateral pleural effusion, gallbladder wall thickening, abdominal aorticaneurysm at 4.5 cm, and a 4 mm solid pulmonary nodule. He was admitted to the hospital and cultureswere obtained. He was placed on Zosyn given his gallbladder abnormalities and transaminitis on presentation. An echocardiogram was ordered due to his elevated BNP and troponin. Echocardiogram showed an EF of 25% with amildly dilated LV, moderate global hypokinesis of the LV stable bioprosthetic aortic valve and a pulmonary artery systolic pressure of 35 mmHg. Cardiology was consulted given these findings as his EF had dropped from previous. He was followed by cardiology during his hospital course and ultimately it was recommended that he continue Lasix 40 mg daily with as needed dosing for shortness of breath and start a low-dose beta-mohit with metoprolol 12.5 mg p.o. twice daily. Other g oal-directed medical therapy is to be initiated as an outpatient per discussion with Dr. Castro prior to discharge and he would like the patient to see cardiology in the next week. I have given familyinstructions to call on Monday to set up an appointment. Right upper quadrant ultrasound and HIDA scan were performed. HIDA scan did show an ejection fraction of 10% but patient was not having any biliary colic. General surgery was consulted and recommended against any surgical intervention for gallbladder given symptoms. They felt he was okay for discharge as well. We will continue antibiotics to complete a course given concerns of infection of presentation andhis gallbladder abnormalities. Celina complete course of Augmentin. I do honestly believe he probably had a distributive/cardiogenicshock or mixed shockon presentation given the other findings. He was evaluated by physical Occupational Therapy during his hospital course and did quite well. They felt that he was stable for discharge home. Home health care was recommended howeverfamily declined at this time. Prescriptions for theAugmentin, change in Lasix dosing, and metoprolol was sent to local pharmacy prior to discharge. Patient is to follow-up with cardiology as noted above and with general surgery within the next 2 weeks. Patient was able to be discharged home in stable condition on02/08/2025. Discharge diagnoses: Acute hypoxic respiratory failure Acute exacerbation of chronic HFrEF Combined shock Transaminitis Abnormal gallbladder function/imaging Chronic thrombocytopenia Elevated troponin secondary to demand ischemia from CHF PVCs BPH with obstruction CAD History of essential hypertension History of GI History of aortic valve stenosis status post bioprosthetic valve replacement History of hyperlipidemia Obesity Physical Exam Const alert, oriented x3, no apparent distress, no limitations and well nourished; Negative for average body habitus Constitutional Narrative: Morbidly obese, white Episcopal male, reclining, family at bedside, appears well, nontoxic, very pleasant General Appearance: cooperative, comfortable, well kempt and well developed Exam Limitations: no limitations Nutritional Appearance: obese HEENT normocephalic, head/scalp atraumatic and moist oral mucous membranes; Negative for hearing grossly normal bilaterally HEENT Narrative: Mallampati 2, no thrush, mild-moderate hearing loss Eyes conjunctivae normal Eyes Narrative: No scleral icterus Neck supple Neck Narrative: Trachea midline Resp normal respiratory effort, no retractions, no use of accessory muscles and clearto auscultation bilaterally Auscultation: Negative for rales, rhonchi or wheezes Cardio regular rate, regular rhythm, S1 normal heart sound, S2 normal heart sound, no murmurs, no rub, no gallops and no clicks GI normal to inspection, nondistended, normoactive bowel sounds, soft to palpation and non-tender Extremity no clubbing, cyanosis or edema Extremity Narrative: 2+ pedal pulses Skin no wounds, skin turgor normal and no jaundice Neuro oriented x3, moves all extremities and no focal motor deficits Speech: speech normal Psych affect normal Psych Narrative: very pleasant Weight / BMI Weight Weight: 89 kg Body Mass Index (BMI) 31.6 ABG / Lab / Microbiology Data 02/08/25 06:21 02/08/25 06:21 Laboratory: Laboratory Results - last 24 hr 02/08/25 06:21: WBC 5.7, RBC 3.51 L, Hgb 10.2 L, Hct 30.4 L, MCV 86.6, MCH 29.1,MCHC 33.6, RDW Std Deviation 46.5 H, RDW Coeff of Jenaro 14.6, Plt Count 124 L, MPV11.2, Immature Gran % (Auto) 0.300, Neut % (Auto) 51.1, Lymph % (Auto) 38.6, [place] % (Auto) 6.6, Eos % (Auto) 3.1, Baso % (Auto) 0.3, Absolute Neuts (auto) 2.9, Absolute Lymphs (auto) 2.21, Nucleated RBC % 0, Atypical Lymphocytes 2+, Platelet Estimate SLT DEC, Plt Morphology Comment GIANT, Polychromasia 1+, Sodium 137, Potassium 4.1, Chloride 105, Carbon Dioxide 20.4 L, Anion Gap 12, BUN 36 H, Creatinine 1.63 H, Estim Creat Clear Calc 34.62 L, Est GFR (MDRD) Non- Af 41 L, BUN/Creatinine Ratio 21.9 H, Glucose 96, Calcium 8.1, Total Bilirubin 0.62, AST 29, ALT 51 H, Alkaline Phosphatase 103, Total Protein 5.7 L, Albumin 3.1 L, Globulin2.7, Albumin/Globulin Ratio 1.2 Microbiology: Microbiology 02/05/25 10:00 Sputum, Expectorated/Coughed Gram Stain - Final 02/05/25 10:00 Sputum, Expectorated/Coughed Respiratory Culture - Final Mixed normal respiratory ana rosa. No Streptococcus pneumoniae, beta-hemolytic Streptococcus or Staphylococcus aureus isolated. 02/04/25 18:37 Blood Culture (Wb) - Anticubital Left Blood Culture - Preliminary No growth in 48 hours. 02/04/25 18:30 Blood Culture (Wb) - Anticubital Right Blood Culture - Preliminary No growth in 48 hours. 02/04/25 18:58 Urine, Clean Catch Urine Culture - Final Culture exhibits no growth. 02/05/25 03:15 Mucosa - Nasopharyngeal Respiratory Panel (PCR) - Final D/C Instructions Discharge Diet: Low fat / Low cholesterol (Limit fluid to 1500 cc daily or less/2 to 3 g of salt orless daily) DC O2, CPAP, BIPAP Needs Home O2 Discharge instructions: No DC home with Oxygen: No Meaningful Use Info Meaningful Use Meaningful Use Diagnoses (Choose all that apply): CHF CHF SONIA/ARB ordered at discharge?: No Reason SONIA/ARB not ordered?: Hypotension Documented LVEF (%): 25 Ischemic Stroke Statin Dosing Therapy Reference: STATIN DOSE THERAPY REFERENCE: * Patients > 75 years receive moderate or high dose statin therapy. * Patients 75 years or YOUNGER should receive HIGH intensity statin dose unless contraindicated. You will be required to document reason for non-treatment if statin daily dose does not meet guidelines. HIGH DOSE STATIN THERAPY DAILY Atorvastatin > than or = to 40 mg Rosuvastatin > than or = to 20 mg Amlodipine + Atorvastatin > than or = to 2.5/40 mg Ezetimibe + Simvastatin 10/80 mg Simvastatin 80mg Discharge Plan Admission Admit Date/Time: 02/04/25 22:42 Primary Reason for Your Visit: Shortness of breath/malaise/fatigue Attending Provider: Yeny Gabriel Primary Care Provider: Pedro Gonzalez Consulting Providers: Rea Cancino; Cj Gardiner; Glen Haywood; Pedro Galvan Discharge Orders/Prescriptions Prescriptions: New furosemide 40 mg Tablet 40 mg PO DAILY Qty: 30 1RF Rx Instructions: Please take an extra dose if your shortness of breath worsens metoprolol tartrate 25 mg tablet 12.5 mg PO DAILY Qty: 60 0RF amoxicillin-pot clavulanate 875-125 mg tablet 1 tab PO BID Qty: 22 0RF Continued vitamin E 200 unit capsule 200 unit PO DAILY aspirin 81 mg tablet,chewable 81 mg PO Q OTHER DAY tamsulosin [Flomax] 0.4 mg capsule 0.4 mg PO QHS Qty: 30 0RF dapagliflozin propanediol 10 mg tablet 10 mg PO clopidogrel 75 mg tablet 75 mg PO Q OTHER DAY Qty: 45 3RF Held lisinopril 5 mg tablet 2.5 mg PO DAILY Hold Instructions: Until instructed to restart by cardiology Discontinued furosemide 40 mg tablet 80 mg PO QDAY Patient Comments: per may take BID if SOB dapagliflozin propanediol [Farxiga] 10 mg tablet 10 mg PO DAILY Referrals / Follow Up: Cj Gardiner MD [Med Staff - Active Staff] - In 1 Week (Call on Monday for an appointment) Pedro Gonzalez MD [Primary Care Provider] - Within 1 Week Glen Haywood MD [Med Staff - Active Staff] - Within 2 Weeks (Call on Monday for an appointment) Disposition Disposition (needs filled in before D/C Order can be placed): Home, Self Care Charges/Coding Visit Charges Inpatient E&M: 30367 Disch Hosp >30min 02/08/25 1441 Cosigner Signature (if applicable): CC: Dr. Cj Gardiner MD; Dr. Pedro Gonzalez MD; Dr. Yeny Gabriel DO; Dr. Glen Haywood MD~ Signed [facility]06-28-2025 [facility] Progress note Author Criss Castro [facility] Note Date/Time February 08, 2025 12:1 0pm [facility] Medical Records Department [address] [place] [address] Progress Note - Cardiology 02/08/25 1209 MR#: [id number] Acct: [id number] Name: FLORIN VARGAS Rep #:[id number] : 1940 85 From: Criss Castro MD PCP: Dr. Pedro Gonzalez MD Status:ADM IN Location: [place] [address] Subjective Subjective Patient feels very well. Ambulated this morning. No complaints. Objective Data Vital Signs: Vital Signs Temp Pulse Resp BP Pulse Ox O2 Del Method O2 Flow Rate 97.6 F L 54 L 13 96/58 L 99 Room Air 2 02/08/25 04:00 02/08/25 05:21 02/08/25 05:21 02/08/25 04:00 02/08/25 05:21 02/08/25 04:00 02/07/25 07:10 FiO2 24 02/08/25 05:21 Oxygen Flow Rate (L/min) 2 Oxygen Delivery Method Room Air Weight: 196 lb 3.382 oz Body Mass Index (BMI) 31.6 Intake & Output: Intake and Output for Last 24 Hours 02/06/25 02/07/25 02/08/25 23:59 23:59 23:59 Intake Total 1310.73 / 1310.73 350 / 350 200 / 200 Output Total 1100 / 1100 Balance 210.73 / 210.73 350 / 350 200 / 200 Lab / Micro Data 02/08/25 06:21 02/08/25 06:21 Labs: Laboratory Results - last 24 hr 02/08/25 06:21: WBC 5.7, RBC 3.51 L, Hgb 10.2 L, Hct 30.4 L, MCV 86.6, MCH 29.1,MCHC 33.6, RDW Std Deviation 46.5 H, RDW Coeff of Jenaro 14.6, Plt Count 124 L, MPV11.2, Immature Gran % (Auto) 0.300, Neut % (Auto) 51.1, Lymph % (Auto) 38.6, [place] % (Auto) 6.6, Eos % (Auto) 3.1, Baso % (Auto) 0.3, Absolute Neuts (auto) 2.9, Absolute Lymphs (auto) 2.21, Nucleated RBC % 0, Atypical Lymphocytes 2+, Platelet Estimate SLT DEC, Plt Morphology Comment GIANT, Polychromasia 1+, Sodium 137, Potassium 4.1, Chloride 105, Carbon Dioxide 20.4 L, Anion Gap 12, BUN 36 H, Creatinine 1.63 H, Estim Creat Clear Calc 34.62 L, Est GFR (MDRD) Non-Af 41 L, BUN/Creatinine Ratio 21.9 H, Glucose 96, Calcium 8.1, Total Bilirubin 0.62, AST 29, ALT 51 H, Alkaline Phosphatase 103, Total Protein 5.7 L, Albumin 3.1 L, Globulin 2.7, Albumin/Globulin Ratio 1.2 Micro: Microbiology 02/05/25 10:00 Sputum, Expectorated/Coughed Gram Stain - Final 02/05/25 10:00 Sputum, Expectorated/Coughed Respiratory Culture - Final Mixed normal respiratory ana rosa. No Streptococcus pneumoniae, beta-hemolytic Streptococcus or Staphylococcus aureus isolated. 02/04/25 18:37 Blood Culture (Wb) - Anticubital Left Blood Culture - Preliminary No growth in 48 hours. 02/04/25 18:30 Blood Culture (Wb) - Anticubital Right Blood Culture - Preliminary No growth in 48 hours. Rhythm Strip Rhythm Strip: Sinus Rhythm Rate: 66 Ectopy: PVC(s) Cardiology Labs/Tests 02/08/25 06:21: WBC 5.7, RBC 3.51 L, Hgb 10.2 L, Hct 30.4 L, MCV 86.6, MCH 29.1,MCHC 33.6, Plt Count 124 L, MPV 11.2, Immature Gran % (Auto) 0.300, Neut % (Auto) 51.1, Lymph % (Auto) 38.6, [place] % (Auto) 6.6, Eos % (Auto) 3.1, Baso % (Auto) 0.3, Absolute Neuts (auto) 2.9, Nucleated RBC % 0, Sodium 137, Potassium 4.1, Chloride 105, Carbon Dioxide 20.4 L, Anion Gap 12, BUN 36 H, Creatinine 1.63 H, Est GFR (MDRD) Non-Af 41 L, BUN/Creatinine Ratio 21.9 H, Glucose 96, Calcium 8.1, Total Bilirubin 0.62 Rhythm: EKG: ECHO: Stress Test: Cardiac Cath: PCI: CT Surgery: Holter monitor: EPS: PPM: CXR: Chest CT Scan: Radiography Diagnostic Testing: Radiology Impression Hepatobiliary Scan Nuclear Medicine 02/07/25 11:00 IMPRESSION: Abnormal gallbladder ejection fraction. Reading Location: [facility] Physical Exam Narrative Comfortable. No apparent distress. Heart sounds 1 and 2 noted. Chest clear toauscultation bilaterally. Alert oriented x 3. No ankle edema. Assessment & Plan Assessment/Plan (1) Multifocal PVCs: PLAN: Resolved. In the setting of acute illness with shock, being on vasopressor agents and chronic LV systolic dysfunction. Start on low-dose beta-blockers. (2) H/O coronary artery bypass surgery: PLAN: History of CABG. Continue aspirin. Clopidogrel. (3) Chronic systolic (congestive) heart failure: PLAN: Furosemide. Started on low-dose beta-blockers. ACEI and other guideline directed medical therapy as outpatient. (4) History of aortic valve replacement with bioprosthetic valve: PLAN: Monitor. (5) Abdominal aortic aneurysm: PLAN: 4.5 cm abdominal aortic aneurysm reported on CT scan. For periodic ultrasound surveillance. (6) Thrombocytopenia: PLAN: Monitor. As per internal medicine/critical care. (7) Shock: PLAN: Likely combination distributive and cardiogenic. Resolved. Off vasopressor agents. 02/08/25 1210 <Electronically signed by Criss Castro MD> Cosigner Signature (if applicable): CC: ~ Signed [facility] Work Phone: [phone] Progress note [facility] Medical Records Department [address] [place] [address] Progress Note - Surgery 02/08/25 1307 MR#: [id number] Acct: [id number] Name: FLORIN VARGAS Rep #:[id number] : 1940 85 From: Glen Haywood MD PCP: Dr. Pedro Gonzalez MD Status:ADM IN Location: [place] [address] Subjective Subjective Patient seen and evaluated on rounds this morning. Patient without any abdominal complaints whatsoever. He states that he is feeling good and is excited to go home today. Patient tolerated heart healthy diet without any exacerbation of any abdominal complaints. Objective Data Objective Data Vital Signs: Vital Signs Temp Pulse Resp BP Pulse Ox O2 Del Method O2 Flow Rate 97.1 F L 69 16 104/69 99 Room Air 2 02/08/25 11:00 02/08/25 11:00 02/08/25 11:00 02/08/25 11:00 02/08/25 11:00 02/08/25 11:00 02/07/25 07:10 FiO2 24 02/08/25 05:21 Oxygen Flow Rate (L/min) 2 Oxygen Delivery Method Room Air Weight: 196 lb 3.382 oz Body Mass Index (BMI) 31.6 Intake & Output: Intake and Output for Last 24 Hours 02/06/25 02/07/25 02/08/25 23:59 23:59 23:59 Intake Total 1310.73 / 1310.73 350 / 350 440 / 440 Output Total 1100 / 1100 Balance 210.73 / 210.73 350 / 350 440 / 440 Lab / Micro Data 02/08/25 06:21 02/08/25 06:21 Labs: Laboratory Results - last 24 hr 02/08/25 06:21: WBC 5.7, RBC 3.51 L, Hgb 10.2 L, Hct 30.4 L, MCV 86.6, MCH 29.1,MCHC 33.6, RDW Std Deviation 46.5 H, RDW Coeff of Jenaro 14.6, Plt Count 124 L, MPV11.2, Immature Gran % (Auto) 0.300, Neut % (Auto) 51.1, Lymph % (Auto) 38.6, [place] % (Auto) 6.6, Eos % (Auto) 3.1, Baso % (Auto) 0.3, Absolute Neuts (auto) 2.9, Absolute Lymphs (auto) 2.21, Nucleated RBC % 0, Atypical Lymphocytes 2+, Platelet Estimate SLT DEC, Plt Morphology Comment GIANT, Polychromasia 1+, Sodium 137, Potassium 4.1, Chloride 105, Carbon Dioxide 20.4 L, Anion Gap 12, BUN 36 H, Creatinine 1.63 H, Estim Creat Clear Calc 34.62 L, Est GFR (MDRD) Non- Af 41 L, BUN/Creatinine Ratio 21.9 H, Glucose 96, Calcium 8.1, Total Bilirubin 0.62, AST 29, ALT 51 H, Alkaline Phosphatase 103, Total Protein 5.7 L, Albumin 3.1 L, Globulin2.7, Albumin/Globulin Ratio 1.2 Micro: Microbiology 02/05/25 10:00 Sputum, Expectorated/Coughed Gram Stain - Final 02/05/25 10:00 Sputum, Expectorated/Coughed Respiratory Culture - Final Mixed normal respiratory ana rosa. No Streptococcus pneumoniae, beta-hemolytic Streptococcus or Staphylococcus aureus isolated. 02/04/25 18:37 Blood Culture (Wb) - Anticubital Left Blood Culture - Preliminary No growth in 48 hours. 02/04/25 18:30 Blood Culture (Wb) - Anticubital Right Blood Culture - Preliminary No growth in 48 hours. 02/04/25 18:58 Urine, Clean Catch Urine Culture - Final Culture exhibits no growth. 02/05/25 03:15 Mucosa - Nasopharyngeal Respiratory Panel (PCR) - Final Rhythm Strip Rhythm Strip: Sinus Rhythm Rate: 66 Ectopy: PVC(s) Physical Exam Narrative He is alert and oriented x 3. He is in no acute distress. Abdomen is entirely soft, nontender and nondistended. No right upper quadrant tenderness to palpation Assessment & Plan Assessment/Plan (1) Gallbladder anomaly: PLAN: Plan The patient is an 85-year-old male admitted with shortness of breath and CHF exacerbation. Clinically he does not exhibit any signs of biliary colic and so would not recommend any type of surgical intervention for his gallbladder. Okayfor discharge to home from a surgical standpoint 02/08/25 1316 Cosigner Signature (if applicable): CC: ~ Signed [facility]06-28-2025 Progress note [facility] Medical Records Department [address] [place] [address] Progress Note - Cardiology 02/08/25 1209 MR#: [id number] Acct: [id number] Name: FLORIN VARGAS Rep #:[id number] : 1940 85 From: Criss Castro MD PCP: Dr. Pedro Gonzalez MD Status:ADM IN Location: [place] [address] Subjective Subjective Patient feels very well. Ambulated this morning. No complaints. Objective Data Vital Signs: Vital Signs Temp Pulse Resp BP Pulse Ox O2 Del Method O2 Flow Rate 97.6 F L 54 L 13 96/58 L 99 Room Air 2 02/08/25 04:00 02/08/25 05:21 02/08/25 05:21 02/08/25 04:00 02/08/25 05:21 02/08/25 04:00 02/07/25 07:10 FiO2 24 02/08/25 05:21 Oxygen Flow Rate (L/min) 2 Oxygen Delivery Method Room Air Weight: 196 lb 3.382 oz Body Mass Index (BMI) 31.6 Intake & Output: Intake and Output for Last 24 Hours 02/06/25 02/07/25 02/08/25 23:59 23:59 23:59 Intake Total 1310.73 / 1310.73 350 / 350 200 / 200 Output Total 1100 / 1100 Balance 210.73 / 210.73 350 / 350 200 / 200 Lab / Micro Data 02/08/25 06:21 02/08/25 06:21 Labs: Laboratory Results - last 24 hr 02/08/25 06:21: WBC 5.7, RBC 3.51 L, Hgb 10.2 L, Hct 30.4 L, MCV 86.6, MCH 29.1,MCHC 33.6, RDW Std Deviation 46.5 H, RDW Coeff of Jenaro 14.6, Plt Count 124 L, MPV11.2, Immature Gran % (Auto) 0.300, Neut % (Auto) 51.1, Lymph % (Auto) 38.6, [place] % (Auto) 6.6, Eos % (Auto) 3.1, Baso % (Auto) 0.3, Absolute Neuts (auto) 2.9, Absolute Lymphs (auto) 2.21, Nucleated RBC % 0, Atypical Lymphocytes 2+, Platelet Estimate SLT DEC, Plt Morphology Comment GIANT, Polychromasia 1+, Sodium 137, Potassium 4.1, Chloride 105, Carbon Dioxide 20.4 L, Anion Gap 12, BUN 36 H, Creatinine 1.63 H, Estim Creat Clear Calc 34.62 L, Est GFR (MDRD) Non- Af 41 L, BUN/Creatinine Ratio 21.9 H, Glucose 96, Calcium 8.1, Total Bilirubin 0.62, AST 29, ALT 51 H, Alkaline Phosphatase 103, Total Protein 5.7 L, Albumin 3.1 L, Globulin2.7, Albumin/Globulin Ratio 1.2 Micro: Microbiology 02/05/25 10:00 Sputum, Expectorated/Coughed Gram Stain - Final 02/05/25 10:00 Sputum, Expectorated/Coughed Respiratory Culture - Final Mixed normal respiratory ana rosa. No Streptococcus pneumoniae, beta-hemolytic Streptococcus or Staphylococcus aureus isolated. 02/04/25 18:37 Blood Culture (Wb) - Anticubital Left Blood Culture - Preliminary No growth in 48 hours. 02/04/25 18:30 Blood Culture (Wb) - Anticubital Right Blood Culture - Preliminary No growth in 48 hours. Rhythm Strip Rhythm Strip: Sinus Rhythm Rate: 66 Ectopy: PVC(s) Cardiology Labs/Tests 02/08/25 06:21: WBC 5.7, RBC 3.51 L, Hgb 10.2 L, Hct 30.4 L, MCV 86.6, MCH 29.1,MCHC 33.6, Plt Count 124 L, MPV 11.2, Immature Gran % (Auto) 0.300, Neut % (Auto) 51.1, Lymph % (Auto) 38.6, [place] % (Auto) 6.6, Eos % (Auto) 3.1, Baso % (Auto) 0.3, Absolute Neuts (auto) 2.9, Nucleated RBC % 0, Sodium 137, Potassium 4.1, Chloride 105, Carbon Dioxide 20.4 L, Anion Gap 12, BUN 36 H, Creatinine 1.63 H, Est GFR (MDRD) Non-Af 41 L, BUN/Creatinine Ratio 21.9 H, Glucose 96, Calcium 8.1, Total Bilirubin 0.62 Rhythm: EKG: ECHO: Stress Test: Cardiac Cath: PCI: CT Surgery: Holter monitor: EPS: PPM: CXR: Chest CT Scan: Radiography Diagnostic Testing: Radiology Impression Hepatobiliary Scan Nuclear Medicine 02/07/25 11:00 IMPRESSION: Abnormal gallbladder ejection fraction. Reading Location: [id number] Physical Exam Narrative Comfortable. No apparent distress. Heart sounds 1 and 2 noted. Chest clear toauscultation bilaterally. Alert oriented x 3. No ankle edema. Assessment & Plan Assessment/Plan (1) Multifocal PVCs: PLAN: Resolved. In the setting of acute illness with shock, being on vasopressor agents and chronicLV systolic dysfunction. Start on low-dose beta-blockers. (2) H/O coronary artery bypass surgery: PLAN: History of CABG. Continue aspirin. Clopidogrel. (3) Chronic systolic (congestive) heart failure: PLAN: Furosemide. Started on low-dose beta-blockers. ACEI and other guideline directed medical therapy as outpatient. (4) History of aortic valve replacement with bioprosthetic valve: PLAN: Monitor. (5) Abdominal aortic aneurysm: PLAN: 4.5 cm abdominal aortic aneurysm reported on CT scan. For periodic ultrasound surveillance. (6) Thrombocytopenia: PLAN: Monitor. As per internal medicine/critical care. (7) Shock: PLAN: Likely combination distributive and cardiogenic. Resolved. Off vasopressor agents. 02/08/25 1210 Cosigner Signature (if applicable): CC: ~ Signed [facility]06-27-2025 Consult note Author Glen Haywood [facility] Note Date/Time February 07, 2025 5:[address] [facility] Medical Records Department [address] [place] [address] [place] [address] Consultation - Surgical 02/07/25 1704 MR#: [id number] Acct: [id number] Name: FLORIN VARGAS Rep #:[id number] : 1940 85 From: Glen Haywood MD PCP: Dr. Pedro Gonzalez MD Status:ADM IN Location: [place] [address] Assessment & Plan Assessment/Plan (1) Gallbladder anomaly: PLAN: Plan The patient is an 85-year-old male admitted with fatigue and shortness of breath. During workup he was found to have a gallbladder wall at the upper limit of normal. HIDA scan also showed ejection fraction of about 10%. Clinically I do not feel that he has any signs of biliary colic. From a surgical standpoint have no surgical plans for surgery. I do not feel that he requires cholecystostomy tube etc. I have placed him back on a heart healthy diet and we will continue to observe. Again family wishes to pursue conservative measures and is not interested in any type of surgical interventioneven if indicated. I certainly respect their wishes HPI Consult Data Date of Consult: 02/07/25 HPI Narrative Reason for Consultation: Possible cholecystitis HPI Narrative: FLORIN VARGAS, is a 85 M who was admitted to [facility] several days ago with complaints of worsening shortness of breath, cough and general weakness/malaise. Patient does have a history of heart failure with a very low ejection fraction. She has had a previous cardiac surgery. Apparentlyhe was feeling unwell for several days prior to presenting to the emergency department. He was feeling lightheaded and short of breath. Patient was seen by his exercise instruct on the day of admission and his blood pressure was low. He was sent to the emergency department for further evaluation. Patient was apparently having some nausea and vomiting but never endorsed any abdominal pain. Patient was admitted. Patient continued to have low blood pressure and was on pressors for a period of time. Patient is currently doing much better and states that he feels much closer to his normal baseline. During the hospitalization he underwent a CT scan as well as an ultrasound of the right upper quadrant that showed gallbladder wall thickening at the upper limits of normal. There was some mild fluid around the liver which may be related to CHF. Patient also had very mildly elevated AST and ALT on presentation but these continue to normalize. Again patient has never endorsed any type of abdominal pain and states that he has never had any right upper quadrant pain or issues with eating recently. General surgery was consulted to evaluate for possible cholecystitis. Family freely admits that he they do not feel that he is able toundergo surgery and they expressed that they would not wish for surgery even if indicated. I certainly agree that he would be a very high risk surgical candidate. He currently denies any type of abdominal complaints of pain especially in the right upper quadrant. 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 angina pectoris (~03/29/22) Home Medications ?Medication ?Instructions ?Recorded ?Last Taken ?Type vitamin E 200 unit capsule 200 unit PO DAILY 09/14/20 Unknown History aspirin 81 mg chewable tablet 81 mg PO Q OTHER DAY 03/29/22 History tamsulosin 0.4 mg capsule (Flomax) 0.4 mg PO QHS #30 c aps 01/27/22 Unknown Rx lisinopril 5 mg tablet 2.5 mg PO DAILY 07/14/23 Unk nown History clopidogrel 75 mg tablet 75 mg PO Q OTHER DAY #45 tab s 11/12/24 Unknown Rx dapagliflozin propanediol 10 mg 10 mg PO heart 5 Unknown History tablet dapagliflozin propanediol 10 mg 10 mg PO DAILY heart 0 02/05/25 Unknown History tablet (Farxiga) furosemide 40 mg tablet 80 mg PO QDAY 02/05/25 Unkno wn History Allergy/AdvReac Type Severity Reaction Status Date / Time No Known Allergies Allergy Verified 02/04/25 18:00 Family History Father Myocardial infarction CVA (cerebral vascular accident) Mother CHF (congestive heart failure) Brother CAD (coronary artery disease) Cancer leukemia Surgical History Presence of coronary artery bypass graft stent (~03/29/22) History of arthroplasty of knee H/O coronary artery bypass surgery (~01/2002) History of left inguinal hernia repair (~1961) Presence of stent in coronary artery Postsurgical percutaneous transluminal coronary angioplasty (PTCA) status History of aortic valve replacement with bioprosthetic valve (~12/27/17) Social History adopted: No household members: spouse housing: house number of children: 6 current occupational status: employed current occupation: [employer] current occupational exposures/hazards: No pets and [...] do you feel safe at home: Yes Physical Exam Narrative He is alert and oriented x 3. He is in no acute distress. Head is normocephalic and atraumatic. Pupils equal round and reactive to light. Abdomen is soft and none distended. He is completely nontender. There is no tenderness whatsoever in the right upper quadrant Lab / Micro Data 02/07/25 06:08 02/07/25 06:08 Labs: Laboratory Results - last 24 hr 02/07/25 06:08: WBC 5.3, RBC 3.34 L, Hgb 9.8 L, Hct 28.5 L, MCV 85.3, MCH 29.3, MCHC 34.4, RDW Std Deviation 44.4 H, RDW Coeff of Jenaro 14.2, Plt Count 91 L, MPV 12.0, Immature Gran % (Auto) 0.600, Neut % (Auto) 56.9, Lymph % (Auto) 31.2, [place] % (Auto) 9.8, Eos % (Auto) 1.1, Baso % (Auto) 0.4, Absolute Neuts (auto) 3.0, Absolute Lymphs (auto) 1.66, Nucleated RBC % 0, Atypical Lymphocytes 2+, Platelet Estimate MOD DEC, Ovalocytes 1+, Sodium 134, Potassium 3.9, Chloride 102, Carbon Dioxide 18.3 L, Anion Gap 14, BUN 44 H, Creatinine 1.72 H, Estim Creat Clear Calc 32.86 L, Est GFR (MDRD) Non-Af 38 L, BUN/Creatinine Ratio 25.7 H, Glucose 96, Calcium 8.0, Total Bilirubin 0.70, AST 34, ALT 59 H, Alkaline Phosphatase 106, Total Protein 5.5 L, Albumin 3.0 L, Globulin 2.6, Albumin/Globulin Ratio 1.2 Micro: Microbiology 02/05/25 10:00 Sputum, Expectorated/Coughed Gram Stain - Final 02/05/25 10:00 Sputum, Expectorated/Coughed Respiratory Culture - Final Mixed normal respiratory ana rosa. No Streptococcus pneumoniae, beta-hemolytic Streptococcus or Staphylococcus aureus isolated. 02/04/25 18:37 Blood Culture (Wb) - Anticubital Left Blood Culture - Preliminary No growth in 48 hours. 02/04/25 18:30 Blood Culture (Wb) - Anticubital Right Blood Culture - Preliminary No growth in 48 hours. Rhythm Strip Rhythm Strip: Sinus Rhythm Rate: 66 Ectopy: PVC(s) Imaging Radiology Impression Hepatobiliary Scan Nuclear Medicine 02/07/25 11:00 IMPRESSION: Abnormal gallbladder ejection fraction. Reading Location: [facility] Charges/Coding Visit Charges Inpatient E&M: 63662 Init Hosp 02/07/25 1721 <Electronically signed by Glen Haywood MD> Cosigner Signature (if applicable): CC: Dr. Rea Cancino MD; Dr. Pedro Gonzalez MD~ Signed [facility] Work Phone: 1(674) 583-506106-27-2025 Consult note [facility] Medical Records Department [address] [place] [address] Consultation - Surgical 02/07/25 1702 MR#: [id number] Acct: [id number] Name: FLORIN VARGAS Rep #:[id number] : 1940 85 From: Glen Haywood MD PCP: Dr. Pedro Gonzalez MD Status:ADM IN Location: [place] [id number]- Assessment & Plan Assessment/Plan (1) Gallbladder anomaly: PLAN: Plan The patient is an 85-year-old male admitted with fatigue and shortness of breath. During workup he was found to have a gallbladder wall at the upper limit of normal. HIDA scan also showed ejection fraction of about 10%. Clinically I do not feel that he has any signs of biliary colic. From a surgical standpoint have no surgical plans for surgery. I do not feel that he requires cholecystostomy tubeetc. I have placed him back on a heart healthy diet and we will continue to observe. Again family wishes to pursue conservative measures and is not interested in any type of surgical interventionevenif indicated. I certainly respect their wishes HPI Consult Data Date of Consult: 02/07/25 HPI Narrative Reason for Consultation: Possible cholecystitis HPI Narrative: FLORIN VARGAS, is a 85 M who was admitted to [facility] several days ago with complaints of worsening shortness of breath, cough and general weakness/malaise. Patient does have a history of heart failure with a very low ejection fraction. She has had a previous cardiac surgery. Apparentlyhe was feeling unwell for several days prior to presenting to the emergency department. Hewas feeling lightheaded and short of breath. Patient was seen by his exercise instruct on the day of admission and his blood pressure was low. He was sent to the emergency department for further evaluation. Patient was apparently having some nausea and vomiting but never endorsed any abdominal pain. Patient was admitted. Patient continued to have low blood pressure and was on pressors for a period of time. Patient is currently doing much better and states that he feels much closer to his normal baseline. During the hospitalization he underwent a CT scan as well as an ultrasound of the right upper quadrant that showed gallbladder wall thickening at the upper limits of normal. There was some mild fluid around the liver which may be related to CHF. Patient also had very mildly elevated AST and ALT on presentation but these continue to normalize. Again patient has never endorsed any type of abdominal pain and states that he has never had any right upper quadrant pain or issues with eating recently. General surgery was consulted to evaluate for possible cholecystitis. Family freely admits that he they do not feel that he is able toundergo surgery and they expressed that they would not wish for surgery even if indicated. I certainly agree that he would be a very high risk surgical candidate. He currently denies any type of abdominal complaints of pain especially in the right upper quadrant. 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 angina pectoris (~03/29/22) Home Medications ?Medication ?Instructions ?Recorded ?Last Taken ?Type vitamin E 200 unit capsule 200 unit PO DAILY 09/14/20 Unknown History aspirin 81 mg chewable tablet 81 mg PO Q OTHER DAY 03/29/22 History tamsulosin 0.4 mg capsule (Flomax) 0.4 mg PO QHS #30 c aps 01/27/22 Unknown Rx lisinopril 5 mg tablet 2.5 mg PO DAILY 07/14/23 Unk nown History clopidogrel 75 mg tablet 75 mg PO Q OTHER DAY #45 tab s 11/12/24 Unknown Rx dapagliflozin propanediol 10 mg 10 mg PO heart 5 Unknown History tablet dapagliflozin propanediol 10 mg 10 mg PO DAILY heart 0 02/05/25 Unknown History tablet (Farxiga) furosemide 40 mg tablet 80 mg PO QDAY 02/05/25 Unkno wn History Allergy/AdvReac Type Severity Reaction Status Date / Time No Known Allergies Allergy Verified 02/04/25 18:00 Family History Father Myocardial infarction CVA (cerebral vascular accident) Mother CHF (congestive heart failure) Brother CAD (coronary artery disease) Cancer leukemia Surgical History Presence of coronary artery bypass graft stent (~03/29/22) History of arthroplasty of knee H/O coronary artery bypass surgery (~01/2002) History of left inguinal hernia repair (~1961) Presence of stent in coronary artery Postsurgical percutaneous transluminal coronary angioplasty (PTCA) status History of aortic valve replacement with bioprosthetic valve (~12/27/17) Social History adopted: No household members: spouse [...] do you feel safe at home: Yes Physical Exam Narrative He is alert and oriented x 3. He is in no acute distress. Head is normocephalic and atraumatic. Pupils equal round and reactive to light. Abdomen is soft and none distended. He is completely nontender. There is no tenderness whatsoever in the right upper quadrant Lab / Micro Data 02/07/25 06:08 02/07/25 06:08 Labs: Laboratory Results - last 24 hr 02/07/25 06:08: WBC 5.3, RBC 3.34 L, Hgb 9.8 L, Hct 28.5 L, MCV 85.3, MCH 29.3, MCHC 34.4, RDW Std Deviation 44.4 H, RDW Coeff of Jen[place] 14.2, Plt Count 91 L, MPV 12.0, Immature Gran % (Auto) 0.600, Neut % (Auto) 56.9, Lymph % (Auto) 31.2, [place] % (Auto) 9.8, Eos % (Auto) 1.1, Baso % (Auto) 0.4, Absolute Neuts (auto) 3.0, Absolute Lymphs (auto) 1.66, Nucleated RBC % 0, Atypical Lymphocytes 2+, Platelet Estimate MOD DEC, Ovalocytes 1+, Sodium 134, Potassium 3.9, Chloride 102, Carbon Dioxide 18.3 L, Anion Gap 14, BUN 44 H, Creatinine 1.72 H, Estim Creat Clear Calc 32.86 L, Est GFR (MDRD) Non-Af 38 L, BUN/Creatinine Ratio 25.7 H, Glucose 96, Calcium 8.0, Total Bilirubin 0.70, AST 34, ALT 59 H, Alkaline Phosphatase 106, Total Protein 5.5 L, Albumin 3.0 L, Globulin 2.6, Albumin/Globulin Ratio 1.2 Micro: Microbiology 02/05/25 10:00 Sputum, Expectorated/Coughed Gram Stain - Final 02/05/25 10:00 Sputum, Expectorated/Coughed Respiratory Culture - Final Mixed normal respiratory ana rosa. No Streptococcus pneumoniae, beta-hemolytic Streptococcus or Staphylococcus aureus isolated. 02/04/25 18:37 Blood Culture (Wb) - Anticubital Left Blood Culture - Preliminary No growth in 48 hours. 02/04/25 18:30 Blood Culture (Wb) - Anticubital Right Blood Culture - Preliminary No growth in 48 hours. Rhythm Strip Rhythm Strip: Sinus Rhythm Rate: 66 Ectopy: PVC(s) Imaging Radiology Impression Hepatobiliary Scan Nuclear Medicine 02/07/25 11:00 IMPRESSION: Abnormal gallbladder ejection fraction. Reading Location: [facility] Charges/Coding Visit Charges Inpatient E&M: 10831 Init Hosp L3 02/07/25 1721 Cosigner Signature (if applicable): CC: Dr. Rea Cancino MD; Dr. Pedro Gonzalez MD~ Signed [facility]06-27-2025 Progress note Author Pedro Galvan [facility] Note Date/Time February 07, 2025 1:50 pm [facility] Medical Records Department [address] [place] [address] Progress Note - Hospitalist 02/07/25 0836 MR#: [id number] Acct: [id number] Name: FLORIN VARGAS Rep #:[id number] : 1940 85 From: Pedro Galvan DO PCP: Dr. Pedro Gonzalez MD Status:ADM IN Location: [place] [address]- Reason for Visit Reason for Visit: Diagnoses Thrombocytopenia, unspecified (02/04/25) Ventricular premature depolarization (02/04/25) Chronic systolic (congestive) heart failure (02/04/25) Heart failure, unspecified (02/04/25) Abdominal aortic aneurysm, without rupture, unspecified (02/04/25) Acute respiratory failure with hypoxia (02/04/25) Shock, unspecified (02/04/25) Elevation of levels of liver transaminase levels (02/04/25) Other specified abnormal findings of blood chemistry (02/04/25) Presence of aortocoronary bypass graft (02/04/25) Presence of xenogenic heart valve (02/04/25) Subjective Subjective Feeling well. No events overnight. Objective Data Objective Data Vital Signs: Vital Signs Temp Pulse Resp BP Pulse Ox O2 Del Method O2 Flow Rate 36.7 C 62 17 94/58 L 99 Room Air 3 02/07/25 02:55 02/07/25 03:00 02/07/25 02:55 02/07/25 02:55 02/07/25 02:55 02/07/25 02:55 02/06/25 10:00 FiO2 28 02/06/25 22:27 Oxygen Flow Rate (L/min) 3 Oxygen Delivery Method Room Air Weight: 89.3 kg Body Mass Index (BMI) 31.7 Intake & Output: Intake and Output for Last 24 Hours 02/05/25 02/06/25 02/07/25 23:59 23:59 23:59 Intake Total 952.56 / 952.56 1310.73 / 1310.73 50 / 50 Output Total 3545 / 3545 1100 / 1100 Balance -2592.44 / -2592.44 210.73 / 210.73 50 / 50 Lab / Micro Data 02/07/25 06:08 02/07/25 06:08 Labs: Laboratory Results - last 24 hr 02/07/25 06:08: WBC 5.3, RBC 3.34 L, Hgb 9.8 L, Hct 28.5 L, MCV 85.3, MCH 29.3, MCHC 34.4, RDW Std Deviation 44.4 H, RDW Coeff of Jenaro 14.2, Plt Count 91 L, MPV 12.0, Immature Gran % (Auto) 0.600, Neut % (Auto) 56.9, Lymph % (Auto) 31.2, [place] % (Auto) 9.8, Eos % (Auto) 1.1, Baso % (Auto) 0.4, Absolute Neuts (auto) 3.0, Absolute Lymphs (auto) 1.66, Nucleated RBC % 0 Micro: Microbiology 02/04/25 18:37 Blood Culture (Wb) - Anticubital Left Blood Culture - Preliminary No growth in 48 hours. 02/04/25 18:30 Blood Culture (Wb) - Anticubital Right Blood Culture - Preliminary No growth in 48 hours. 02/04/25 18:58 Urine, Clean Catch Urine Culture - Final Culture exhibits no growth. 02/05/25 10:00 Sputum, Expectorated/Coughed Gram Stain - Final 02/05/25 03:15 Mucosa - Nasopharyngeal Respiratory Panel (PCR) - Final Rhythm Strip Rhythm Strip: Sinus Rhythm Rate: 66 Ectopy: PVC(s) Physical Exam Const alert and no apparent distress HEENT head/scalp atraumatic and moist oral mucous membranes Resp normal respiratory effort, no retractions, no use of accessory muscles and clearto auscultation bilaterally Cardio regular rate, regular rhythm, S1 normal heart sound and S2 normal heart sound GI normal to inspection, nondistended, normoactive bowel sounds, soft to palpation,non-tender and non-distended Auscultation: hyperactive bowel sounds and hypoactive bowel sounds Extremity normal to inspection and full ROM Neuro Sensorium / Orientation: awake and alert Psych affect normal Assessment & Plan Assessment/Plan (1) Acute hypoxic respiratory failure: PLAN: improved. 2/2 CHF. Wean oxygen as tolerated. On empiric abx with pip/tazo (2) CHF exacerbation: PLAN: EF 35% from 12/12/24. Repeat echo ordered. On PO furosemide no ACEi/ARB given shock. Cards following. (3) Shock: PLAN: resolved suspect combination of septic and cardiogenic. on norepi unclear septic source. Possible GB. (4) Transaminitis: PLAN: thickening GB wall noted on CT and US. Unclear significance at this time. may be hepatic congestion. continue to monitor HIDA scan shows an EF of 10 %. Consult to general surgery for recommendations. (5) Thrombocytopenia: PLAN: acute on chronic, unclear significance. monitor for now. (6) Elevated troponin: PLAN: Unclear type at this time. Troponins 108 to 111 to 114. May be skewed upwards given MICHELLE. on ASA, clopidogrel Seen by cardiology. Not felt to have evidence of ischemia at this time. (7) PVC (premature ventricular contraction): PLAN: Frequent PVCs 2/2 shock completed amiodarone gtt. PLAN: Plan BPH: tamsulosin VTE prophylaxis: SCDs Discussed with family at bedside. Charges/Coding Visit Charges Inpatient E&M: 15952 Subs Hosp L2 02/07/25 0487 <Electronically signed by Pedro Jopperi DO> Cosigner Signature (if applicable): CC: ~ Signed [facility] Work Phone: 1(162) 213-664906-27-2025 Progress note [facility] Medical Records Department [address] [place] [address] Progress Note - Hospitalist 02/07/25835 MR#: [id number] Acct: [id number] Name: FLORIN VARGAS Rep #:[id number] : 1940 85 From: Pedro Galvan DO PCP: Dr. Pedro Gonzalez MD Status:ADM IN Location: [place] [address] Reason for Visit Reason for Visit: Diagnoses Thrombocytopenia, unspecified (02/04/25) Ventricular premature depolarization (02/04/25) Chronic systolic (congestive) heart failure (02/04/25) Heart failure, unspecified (02/04/25) Abdominal aortic aneurysm, without rupture, unspecified (02/04/25) Acute respiratory failure with hypoxia (02/04/25) Shock, unspecified (02/04/25) Elevation of levels of liver transaminase levels (02/04/25) Other specified abnormal findings of blood chemistry (02/04/25) Presence of aortocoronary bypass graft (02/04/25) Presence of xenogenic heart valve (02/04/25) Subjective Subjective Feeling well. No events overnight. Objective Data Objective Data Vital Signs: Vital Signs Temp Pulse Resp BP Pulse Ox O2 Del Method O2 Flow Rate 36.7 C 62 17 94/58 L 99 Room Air 3 02/07/25 02:55 02/07/25 03:00 02/07/25 02:55 02/07/25 02:55 02/07/25 02:55 02/07/25 02:55 02/06/25 10:00 FiO2 28 02/06/25 22:27 Oxygen Flow Rate (L/min) 3 Oxygen Delivery Method Room Air Weight: 89.3 kg Body Mass Index (BMI) 31.7 Intake & Output: Intake and Output for Last 24 Hours 02/05/25 02/06/25 02/07/25 23:59 23:59 23:59 Intake Total 952.56 / 952.56 1310.73 / 1310.73 50 / 50 Output Total 3545 / 3545 1100 / 1100 Balance -2592.44 / -2592.44 210.73 / 210.73 50 / 50 Lab / Micro Data 02/07/25 06:08 02/07/25 06:08 Labs: Laboratory Results - last 24 hr 02/07/25 06:08: WBC 5.3, RBC 3.34 L, Hgb 9.8 L, Hct 28.5 L, MCV 85.3, MCH 29.3, MCHC 34.4, RDW Std Deviation 44.4 H, RDW Coeff of Jenaro 14.2, Plt Count 91 L, MPV 12.0, Immature Gran % (Auto) 0.600, Neut % (Auto) 56.9, Lymph % (Auto) 31.2, [place] % (Auto) 9.8, Eos % (Auto) 1.1, Baso % (Auto) 0.4, Absolute Neuts (auto) 3.0, Absolute Lymphs (auto) 1.66, Nucleated RBC % 0 Micro: Microbiology 02/04/25 18:37 Blood Culture (Wb) - Anticubital Left Blood Culture - Preliminary No growth in 48 hours. 02/04/25 18:30 Blood Culture (Wb) - Anticubital Right Blood Culture - Preliminary No growth in 48 hours. 02/04/25 18:58 Urine, Clean Catch Urine Culture - Final Culture exhibits no growth. 02/05/25 10:00 Sputum, Expectorated/Coughed Gram Stain - Final 02/05/25 03:15 Mucosa - Nasopharyngeal Respiratory Panel (PCR) - Final Rhythm Strip Rhythm Strip: Sinus Rhythm Rate: 66 Ectopy: PVC(s) Physical Exam Const alert and no apparent distress HEENT head/scalp atraumatic and moist oral mucous membranes Resp normal respiratory effort, no retractions, no use of accessory muscles and clearto auscultation bilaterally Cardio regular rate, regular rhythm, S1 normal heart sound and S2 normal heart sound GI normal to inspection, nondistended, normoactive bowel sounds, soft to palpation,non-tender and non-distended Auscultation: hyperactive bowel sounds and hypoactive bowel sounds Extremity normal to inspection and full ROM Neuro Sensorium / Orientation: awake and alert Psych affect normal Assessment & Plan Assessment/Plan (1) Acute hypoxic respiratory failure: PLAN: improved. 2/2 CHF. Wean oxygen as tolerated. On empiric abx with pip/tazo (2) CHF exacerbation: PLAN: EF 35% from 12/12/24. Repeat echo ordered. On PO furosemide no ACEi/ARB given shock. Cards following. (3) Shock: PLAN: resolved suspect combination of septic and cardiogenic. on norepi unclear septic source. Possible GB. (4) Transaminitis: PLAN: thickening GB wall noted on CT and US. Unclear significance at this time. may be hepatic congestion. continue to monitor HIDA scan shows an EF of 10 %. Consult to general surgery for recommendations. (5) Thrombocytopenia: PLAN: acute on chronic, unclear significance. monitor for now. (6) Elevated troponin: PLAN: Unclear type at this time. Troponins 108 to 111 to 114. May be skewed upwards given MICHELLE. on ASA, clopidogrel Seen by cardiology. Not felt to have evidence of ischemia at this time. (7) PVC (premature ventricular contraction): PLAN: Frequent PVCs 2/2 shock completed amiodarone gtt. PLAN: Plan BPH: tamsulosin VTE prophylaxis: SCDs Discussed with family at bedside. Charges/Coding Visit Charges Inpatient E&M: 87084 Subs Hosp L2 02/07/25 135 Cosigner Signature (if applicable): CC: ~ Signed [facility]06-27-2025 Nuclear medicine Diagnostic study note [facility] Imaging Services [address] [place], [place] [id number] Hepatobilliary Img w/Pharm Int MR#: [id number] Acct: [id number] Name: FLORIN VARGAS Rep #: [id number] : 1940 M 85 From: Gibson Esparza MD PCP: Dr. Pedro Gonzalez MD Status: ADM IN Study:Hepatobilliary Img w/Pharm Int Date of Exam: 02/07/25 Exam# [id number] Ordering Dr: Pedro Galvan DO PROCEDURE: HEPATOBILLIARY IMG W/PHARM INT 02/07/2025 REASON FOR EXAM: GALLBLADDER WALL EDEMA. TECHNIQUE: Intravenous Choletec with planar imaging of the abdomen. RADIOPHARMACEUTICAL: 5.6 mCi of technetium labeled mebrofenin. 1.7 mcg of CCK injected at 60 minutes. COMPARISON: None FINDINGS: There is good uptake of the radiopharmaceutical by the liver. Normal gallbladder visualization with the gallbladder identified by 30 minutes. Gallbladder ejection fraction measures 10%. NM/Hepatobilliary Img w/Pharm Int IMPRESSION: Abnormal gallbladder ejection fraction. Reading Location: [facility] CC: Dr. Rea Cancino MD; Dr. Pedro Galvan DO; Dr. Pedro Gonzalez MD ~ Oil Field Tester: Signed [facility]06-27-2025 Progress note Author Criss Castro [facility] Note Date/Time February 07, 2025 9:58 am [facility] Medical Records Department [address] [place] [address] Progress Note - Cardiology 02/07/2556 MR#: [id number] Acct: [id number] Name: FLORIN VARGAS Rep #:[id number] : 1940 85 From: Criss Castro MD PCP: Dr. Pedro Gonzalez MD Status:ADM IN Location: [place] [address] Subjective Subjective Feeling well. Denies any complaints today. Blood pressure stable. Off vasopressors. Objective Data Vital Signs: Vital Signs Temp Pulse Resp BP Pulse Ox O2 Del Method O2 Flow Rate 98.0 F 62 17 94/58 L 99 Room Air 3 02/07/25 02:55 02/07/25 03:00 02/07/25 02:55 02/07/25 02:55 02/07/25 02:55 02/07/25 02:55 02/06/25 10:00 FiO2 28 02/06/25 22:27 Oxygen Flow Rate (L/min) 3 Oxygen Delivery Method Room Air Weight: 196 lb 13.965 oz Body Mass Index (BMI) 31.7 Intake & Output: Intake and Output for Last 24 Hours 02/05/25 02/06/25 02/07/25 23:59 23:59 23:59 Intake Total 952.56 / 952.56 1310.73 / 1310.73 50 / 50 Output Total 3545 / 3545 1100 / 1100 Balance -2592.44 / -2592.44 210.73 / 210.73 50 / 50 Lab / Micro Data 02/07/25 06:08 02/07/25 06:08 Labs: Laboratory Results - last 24 hr 02/07/25 06:08: WBC 5.3, RBC 3.34 L, Hgb 9.8 L, Hct 28.5 L, MCV 85.3, MCH 29.3, MCHC 34.4, RDW Std Deviation 44.4 H, RDW Coeff of Jenaro 14.2, Plt Count 91 L, MPV 12.0, Immature Gran % (Auto) 0.600, Neut % (Auto) 56.9, Lymph % (Auto) 31.2, [place] % (Auto) 9.8, Eos % (Auto) 1.1, Baso % (Auto) 0.4, Absolute Neuts (auto) 3.0, Absolute Lymphs (auto) 1.66, Nucleated RBC % 0, Atypical Lymphocytes 2+, Platelet Estimate MOD DEC, Ovalocytes 1+, Sodium 134, Potassium 3.9, Chloride 102, Carbon Dioxide 18.3 L, Anion Gap 14, BUN 44 H, Creatinine 1.72 H, Estim Creat Clear Calc 32.86 L, Est GFR (MDRD) Non-Af 38 L, BUN/Creatinine Ratio 25.7 H, Glucose 96, Calcium 8.0, Total Bilirubin 0.70, AST 34, ALT 59 H, Alkaline Phosphatase 106, Total Protein 5.5 L, Albumin 3.0 L, Globulin 2.6, Albumin/Globulin Ratio 1.2 Micro: Microbiology 02/04/25 18:37 Blood Culture (Wb) - Anticubital Left Blood Culture - Preliminary No growth in 48 hours. 02/04/25 18:30 Blood Culture (Wb) - Anticubital Right Blood Culture - Preliminary No growth in 48 hours. 02/04/25 18:58 Urine, Clean Catch Urine Culture - Final Culture exhibits no growth. Rhythm Strip Rhythm Strip: Sinus Rhythm Rate: 66 Ectopy: PVC(s) Cardiology Labs/Tests 02/07/25 06:08: WBC 5.3, RBC 3.34 L, Hgb 9.8 L, Hct 28.5 L, MCV 85.3, MCH 29.3, MCHC 34.4, Plt Count 91 L, MPV 12.0, Immature Gran % (Auto) 0.600, Neut % (Auto)56.9, Lymph % (Auto) 31.2, [place] % (Auto) 9.8, Eos % (Auto) 1.1, Baso % (Auto) 0.4, Absolute Neuts (auto) 3.0, Nucleated RBC % 0, Sodium 134, Potassium 3.9, Chloride 102, Carbon Dioxide 18.3 L, Anion Gap 14, BUN 44 H, Creatinine 1.72 H, Est GFR (MDRD) Non-Af 38 L, BUN/Creatinine Ratio 25.7 H, Glucose 96, Calcium 8.0, Total Bilirubin 0.70 Rhythm: EKG: ECHO: Stress Test: Cardiac Cath: PCI: CT Surgery: Holter monitor: EPS: PPM: CXR: Chest CT Scan: Physical Exam Narrative Comfortable. No apparent distress. Heart sounds 1 and 2 noted. Chest clear toauscultation bilaterally. Alert oriented x 3. No ankle edema. Assessment & Plan Assessment/Plan (1) Multifocal PVCs: PLAN: Resolved. In the setting of acute illness with shock, being on vasopressor agents and chronic LV systolic dysfunction. Amiodarone DC'd. Will introduce beta-blockers once hemodynamics better. (2) H/O coronary artery bypass surgery: PLAN: History of CABG. Continue aspirin. Clopidogrel. (3) Chronic systolic (congestive) heart failure: PLAN: Furosemide. Start on ACEI and beta-blockers if hemodynamically remained stable. (4) History of aortic valve replacement with bioprosthetic valve: PLAN: Monitor. (5) Abdominal aortic aneurysm: PLAN: 4.5 cm abdominal aortic aneurysm reported on CT scan. For periodic ultrasound surveillance. (6) Thrombocytopenia: PLAN: Monitor. As per internal medicine/critical care. (7) Shock: PLAN: Likely combination distributive and cardiogenic. Resolved. Off vasopressor agents. 02/07/25957 <Electronically signed by Criss Castro MD> Cosigner Signature (if applicable): CC: ~ Signed [facility] Work Phone: 1(445) 433-376606-27-2025 Progress note [facility] Medical Records Department [address] [place] [address] Progress Note - Cardiology 02/07/25 0956 MR#: [id number] Acct: [id number] Name: FLORIN VARGAS Rep #:[id number] : 1940 85 From: Criss Castro MD PCP: Dr. Pedro Gonzalez MD Status:ADM IN Location: [place] [address] Subjective Subjective Feeling well. Denies any complaints today. Blood pressure stable. Off vasopressors. Objective Data Vital Signs: Vital Signs Temp Pulse Resp BP Pulse Ox O2 Del Method O2 Flow Rate 98.0 F 62 17 94/58 L 99 Room Air 3 02/07/25 02:55 02/07/25 03:00 02/07/25 02:55 02/07/25 02:55 02/07/25 02:55 02/07/25 02:55 02/06/25 10:00 FiO2 28 02/06/25 22:27 Oxygen Flow Rate (L/min) 3 Oxygen Delivery Method Room Air Weight: 196 lb 13.965 oz Body Mass Index (BMI) 31.7 Intake & Output: Intake and Output for Last 24 Hours 02/05/25 02/06/25 02/07/25 23:59 23:59 23:59 Intake Total 952.56 / 952.56 1310.73 / 1310.73 50 / 50 Output Total 3545 / 3545 1100 / 1100 Balance -2592.44 / -2592.44 210.73 / 210.73 50 / 50 Lab / Micro Data 02/07/25 06:08 02/07/25 06:08 Labs: Laboratory Results - last 24 hr 02/07/25 06:08: WBC 5.3, RBC 3.34 L, Hgb 9.8 L, Hct 28.5 L, MCV 85.3, MCH 29.3, MCHC 34.4, RDW Std Deviation 44.4 H, RDW Coeff of Jenaro 14.2, Plt Count 91 L, MPV 12.0, Immature Gran % (Auto) 0.600, Neut % (Auto) 56.9, Lymph % (Auto) 31.2, [place] % (Auto) 9.8, Eos % (Auto) 1.1, Baso % (Auto) 0.4, Absolute Neuts (auto) 3.0, Absolute Lymphs (auto) 1.66, Nucleated RBC % 0, Atypical Lymphocytes 2+, Platelet Estimate MOD DEC, Ovalocytes 1+, Sodium 134, Potassium 3.9, Chloride 102, Carbon Dioxide 18.3 L, Anion Gap 14, BUN 44 H, Creatinine 1.72 H, Estim Creat Clear Calc 32.86 L, Est GFR (MDRD) Non-Af 38 L, BUN/Creatinine Ratio 25.7 H, Glucose 96, Calcium 8.0, Total Bilirubin 0.70, AST 34, ALT 59 H, Alkaline Phosphatase 106, Total Protein 5.5 L, Albumin 3.0 L, Globulin 2.6, Albumin/Globulin Ratio 1.2 Micro: Microbiology 02/04/25 18:37 Blood Culture (Wb) - Anticubital Left Blood Culture - Preliminary No growth in 48 hours. 02/04/25 18:30 Blood Culture (Wb) - Anticubital Right Blood Culture - Preliminary No growth in 48 hours. 02/04/25 18:58 Urine, Clean Catch Urine Culture - Final Culture exhibits no growth. Rhythm Strip Rhythm Strip: Sinus Rhythm Rate: 66 Ectopy: PVC(s) Cardiology Labs/Tests 02/07/25 06:08: WBC 5.3, RBC 3.34 L, Hgb 9.8 L, Hct 28.5 L, MCV 85.3, MCH 29.3, MCHC 34.4, Plt Count 91 L, MPV 12.0, Immature Gran % (Auto) 0.600, Neut % (Auto)56.9, Lymph % (Auto) 31.2, [place] % (Auto) 9.8, Eos % (Auto) 1.1, Baso % (Auto) 0.4, Absolute Neuts (auto) 3.0, Nucleated RBC % 0, Sodium 134, Potassium 3.9, Chloride 102, Carbon Dioxide 18.3 L, Anion Gap 14, BUN 44 H, Creatinine 1.72 H, EstGFR (MDRD) Non-Af 38 L, BUN/Creatinine Ratio 25.7 H, Glucose 96, Calcium 8.0, Total Bilirubin 0.70 Rhythm: EKG: ECHO: Stress Test: Cardiac Cath: PCI: CT Surgery: Holter monitor: EPS: PPM: CXR: Chest CT Scan: Physical Exam Narrative Comfortable. No apparent distress. Heart sounds 1 and 2 noted. Chest clear toauscultation bilaterally. Alert oriented x 3. No ankle edema. Assessment & Plan Assessment/Plan (1) Multifocal PVCs: PLAN: Resolved. In the setting of acute illness with shock, being on vasopressor agents and chronicLV systolic dysfunction. Amiodarone DC'd. Will introduce beta- blockers once hemodynamics better. (2) H/O coronary artery bypass surgery: PLAN: History of CABG. Continue aspirin. Clopidogrel. (3) Chronic systolic (congestive) heart failure: PLAN: Furosemide. Start on ACEI and beta-blockers if hemodynamically remained stable. (4) History of aortic valve replacement with bioprosthetic valve: PLAN: Monitor. (5) Abdominal aortic aneurysm: PLAN: 4.5 cm abdominal aortic aneurysm reported on CT scan. For periodic ultrasound surveillance. (6) Thrombocytopenia: PLAN: Monitor. As per internal medicine/critical care. (7) Shock: PLAN: Likely combination distributive and cardiogenic. Resolved. Off vasopressor agents. 02/07/25 0958 Cosigner Signature (if applicable): CC: ~ Signed [facility]06-26-2025 Progress note Author Pedro Galvan [facility] Note Date/Time February 06, 2025 12:[address] [facility] Medical Records Department [address] [place] [address] Progress Note - Hospitalist 02/06/25704 MR#: [id number] Acct: [id number] Name: FLORIN VARGAS Rep #:[id number] : 1940 85 From: Pedro Galvan DO PCP: Dr. 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 Objective Data Objective Data Vital Signs: Vital Signs Temp Pulse Resp BP Pulse Ox O2 Del Method O2 Flow Rate 37.5 C H 66 14 80/43 L 100 Nasal Cannula 2 02/06/25 00:28 02/06/25 00:28 02/06/25 00:28 02/06/25 00:28 02/06/25 00:28 02/06/25 00:28 02/06/25 00:28 FiO2 28 02/06/25 00:00 Oxygen Flow Rate (L/min) 2 Oxygen Delivery Method Nasal Cannula Weight: 85.4 kg Body Mass Index (BMI) 30.4 Intake & Output: Intake and Output for Last 24 Hours 02/04/25 02/05/25 02/06/25 23:59 23:59 23:59 Intake Total 2500 / 2500 952.56 / 952.56 182.59 / 182.59 Output Total 3545 / 3545 700 / 700 Balance 2500 / 2500 -2592.44 / -2592.44 -517.41 / -517.41 Lab / Micro Data 02/06/25 06:36 02/06/25 06:36 Labs: Laboratory Results - last 24 hr 02/06/25 06:36: WBC 5.5, RBC 3.11 L, Hgb 9.1 L, Hct 27.5 L, MCV 88.4, MCH 29.3, MCHC 33.1, RDW Std Deviation 46.2 H, RDW Coeff of Jenaro 14.4, Plt Count 70 L, MPV 12.1 H, Immature Gran % (Auto) 0.400, Neut % (Auto) 68.2, Lymph % (Auto) 23.0, [place] % (Auto) 8.2, Eos % (Auto) 0.0, Baso % (Auto) 0.2, Absolute Neuts (auto) 3.7, Absolute Lymphs (auto) 1.26, Nucleated RBC % 0 Micro: Microbiology 02/05/25 10:00 Sputum, Expectorated/Coughed Gram Stain - Final 02/05/25 03:15 Mucosa - Nasopharyngeal Respiratory Panel (PCR) - Final Radiography Diagnostic Testing: Radiology Impression Echocardiogram 02/05/25 00:02 Interpretation Summary There is moderate global hypokinesis of the left ventricle. Mildly dilated left ventricle. The left ventricular ejection fraction is 25 %. Bioprosthetic aortic valve. Contrast injection was performed. Ordering Physician: Rea Cancino Referring Physician: Rea Cancino Performed By: Tori Daniel, IGNACIO Rhythm Strip Rhythm Strip: Sinus Rhythm Rate: 100 Ectopy: PVC(s) Physical Exam Const alert and no apparent distress Constitutional Narrative: less anxious today. HEENT head/scalp atraumatic and moist oral mucous membranes Resp normal respiratory effort, no retractions, no use of accessory muscles and clearto auscultation bilaterally Cardio regular rate, regular rhythm, S1 normal heart sound and S2 normal heart sound GI normal to inspection, nondistended, normoactive bowel sounds, soft to palpation,non-tender and non-distended Extremity normal to inspection and full ROM Neuro Sensorium / Orientation: awake and alert Assessment & Plan Assessment/Plan (1) Acute hypoxic respiratory failure: PLAN: improved. 2/2 CHF. Wean oxygen as tolerated. On empiric abx with pip/tazo (2) CHF exacerbation: PLAN: EF 35% from 12/12/24. Repeat echo ordered. On IV furosemide no ACEi/ARB given shock. Cards following. (3) Shock: PLAN: suspect combination of septic and cardiogenic. on norepi unclear septic source. Possible GB. (4) Transaminitis: PLAN: thickening GB wall noted on CT and US. Unclear significance at this time. may be hepatic congestion. continue to monitor Check HIDA scan. (5) Thrombocytopenia: PLAN: acute on chronic, unclear significance. monitor for now. (6) Elevated troponin: PLAN: Unclear type at this time. Troponins 108 to 111 to 114. May be skewed upwards given MICHELLE. on ASA, clopidogrel Seen by cardiology. Not felt to have evidence of ischemia at this time. (7) PVC (premature ventricular contraction): PLAN: Frequent PVCs amiodarone gtt. PLAN: Plan BPH: tamsulosin VTE prophylaxis: SCDs Greater than 60 minutes, most of which was discussing with patient's family extensively at bedside. Explained no clear source of infection at this time. Discussed upon discharge need for fluid restriction upon discharge to minimize volume overload. Charges/Coding Visit Charges Inpatient E&M: 76908 Subs Hosp L3 02/06/25 1253 <Electronically signed by Pedro Galvan DO> Cosigner Signature (if applicable): CC: ~ Signed [facility] Work Phone: 1(390) 746-374406-26-2025 Progress note [facility] Medical Records Department [address] [place] [address] Progress Note - Hospitalist 02/06/25 0705 MR#: [id number] Acct: [id number] Name: FLORIN VARGAS Rep #:[id number] : 1940 85 From: Pedro Galvan DO PCP: Dr. 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 Objective Data Objective Data Vital Signs: Vital Signs Temp Pulse Resp BP Pulse Ox O2 Del Method O2 Flow Rate 37.5 C H 66 14 80/43 L 100 Nasal Cannula 2 02/06/25 00:28 02/06/25 00:28 02/06/25 00:28 02/06/25 00:28 02/06/25 00:28 02/06/25 00:28 02/06/25 00:28 FiO2 28 02/06/25 00:00 Oxygen Flow Rate (L/min) 2 Oxygen Delivery Method Nasal Cannula Weight: 85.4 kg Body Mass Index (BMI) 30.4 Intake & Output: Intake and Output for Last 24 Hours 02/04/25 02/05/25 02/06/25 23:59 23:59 23:59 Intake Total 2500 / 2500 952.56 / 952.56 182.59 / 182.59 Output Total 3545 / 3545 700 / 700 Balance 2500 / 2500 -2592.44 / -2592.44 -517.41 / -517.41 Lab / Micro Data 02/06/25 06:36 02/06/25 06:36 Labs: Laboratory Results - last 24 hr 02/06/25 06:36: WBC 5.5, RBC 3.11 L, Hgb 9.1 L, Hct 27.5 L, MCV 88.4, MCH 29.3, MCHC 33.1, RDW Std Deviation 46.2 H, RDW Coeff of Jenaro 14.4, Plt Count 70 L, MPV 12.1 H, Immature Gran % (Auto) 0.400, Neut % (Auto) 68.2, Lymph % (Auto) 23.0, [place] % (Auto) 8.2, Eos % (Auto) 0.0, Baso % (Auto) 0.2, Absolute Neuts (auto) 3.7, Absolute Lymphs (auto) 1.26, Nucleated RBC % 0 Micro: Microbiology 02/05/25 10:00 Sputum, Expectorated/Coughed Gram Stain - Final 02/05/25 03:15 Mucosa - Nasopharyngeal Respiratory Panel (PCR) - Final Radiography Diagnostic Testing: Radiology Impression Echocardiogram 02/05/25 00:02 Interpretation Summary There is moderate global hypokinesis of the left ventricle. Mildly dilated left ventricle. The left ventricular ejection fraction is 25 %. Bioprosthetic aortic valve. Contrast injection was performed. Ordering Physician: Rea Cancino Referring Physician: Rea Cancino Performed By: Tori Daniel RDCS Rhythm Strip Rhythm Strip: Sinus Rhythm Rate: 100 Ectopy: PVC(s) Physical Exam Const alert and no apparent distress Constitutional Narrative: less anxious today. HEENT head/scalp atraumatic and moist oral mucous membranes Resp normal respiratory effort, no retractions, no use of accessory muscles and clearto auscultation bilaterally Cardio regular rate, regular rhythm, S1 normal heart sound and S2 normal heart sound GI normal to inspection, nondistended, normoactive bowel sounds, soft to palpation,non-tender and non-distended Extremity normal to inspection and full ROM Neuro Sensorium / Orientation: awake and alert Assessment & Plan Assessment/Plan (1) Acute hypoxic respiratory failure: PLAN: improved. 2/2 CHF. Wean oxygen as tolerated. On empiric abx with pip/tazo (2) CHF exacerbation: PLAN: EF 35% from 12/12/24. Repeat echo ordered. On IV furosemide no ACEi/ARB given shock. Cards following. (3) Shock: PLAN: suspect combination of septic and cardiogenic. on norepi unclear septic source. Possible GB. (4) Transaminitis: PLAN: thickening GB wall noted on CT and US. Unclear significance at this time. may be hepatic congestion. continue to monitor Check HIDA scan. (5) Thrombocytopenia: PLAN: acute on chronic, unclear significance. monitor for now. (6) Elevated troponin: PLAN: Unclear type at this time. Troponins 108 to 111 to 114. May be skewed upwards given MICHELLE. on ASA, clopidogrel Seen by cardiology. Not felt to have evidence of ischemia at this time. (7) PVC (premature ventricular contraction): PLAN: Frequent PVCs amiodarone gtt. PLAN: Plan BPH: tamsulosin VTE prophylaxis: SCDs Greater than 60 minutes, most of which was discussing with patient's family extensively at bedside.Explained no clear source of infection at this time. Discussed upon discharge need for fluid restriction upon discharge to minimize volume overload. Charges/Coding Visit Charges Inpatient E&M: 26683 Subs Hosp L3 02/06/25 1253 Cosigner Signature (if applicable): CC: ~ Signed [facility]06-26-2025 Progress note Author Criss Castro [facility] Note Date/Time February 06, 2025 8:[address] [facility] Medical Records Department [address] [place] [address] Progress Note - Cardiology 02/06/25 0839 MR#: [id number] Acct: [id number] Name: FLORIN VARGAS Roz Rep #:[id number] : 1940 85 From: Criss Castro MD PCP: Dr. Pedro Gonzalez MD Status:ADM IN Location: ICU ICU07-1 Subjective Subjective Doing well. Denies any complaints. Off vasopressors. Running low-grade fever this morning. Objective Data Vital Signs: Vital Signs Temp Pulse Resp BP Pulse Ox O2 Del Method O2 Flow Rate 99.5 F H 66 14 80/43 L 100 Nasal Cannula 2 02/06/25 00:28 02/06/25 00:28 02/06/25 00:28 02/06/25 00:28 02/06/25 00:28 02/06/25 00:28 02/06/25 00:28 FiO2 28 02/06/25 00:00 Oxygen Flow Rate (L/min) 2 Oxygen Delivery Method Nasal Cannula Weight: 188 lb 4.396 oz Body Mass Index (BMI) 30.4 Intake & Output: Intake and Output for Last 24 Hours 02/04/25 02/05/25 02/06/25 23:59 23:59 23:59 Intake Total 2500 / 2500 952.56 / 952.56 182.59 / 182.59 Output Total 3545 / 3545 700 / 700 Balance 2500 / 2500 -2592.44 / -2592.44 -517.41 / -517.41 Lab / Micro Data Attestation: I reviewed the patient's lab results. 02/06/25 06:36 02/06/25 06:36 Labs: Laboratory Results - last 24 hr 02/06/25 06:36: WBC 5.5, RBC 3.11 L, Hgb 9.1 L, Hct 27.5 L, MCV 88.4, MCH 29.3, MCHC 33.1, RDW Std Deviation 46.2 H, RDW Coeff of Jenaro 14.4, Plt Count 70 L, MPV 12.1 H, Immature Gran % (Auto) 0.400, Neut % (Auto) 68.2, Lymph % (Auto) 23.0, [place] % (Auto) 8.2, Eos % (Auto) 0.0, Baso % (Auto) 0.2, Absolute Neuts (auto) 3.7, Absolute Lymphs (auto) 1.26, Nucleated RBC % 0, Atypical Lymphocytes 1+, Sodium 133, Potassium 4.0, Chloride 106, Carbon Dioxide 15.5 L, Anion Gap 12, BUN 38 H, Creatinine 1.47 H, Estim Creat Clear Calc 37.64 L, Est GFR (MDRD) Non-Af 46 L, BUN/Creatinine Ratio 25.9 H, Glucose 97, Calcium 6.7 L, Phosphorus 3.3,Magnesium 2.0 Micro: Microbiology 02/05/25 10:00 Sputum, Expectorated/Coughed Gram Stain - Final 02/05/25 03:15 Mucosa - Nasopharyngeal Respiratory Panel (PCR) - Final Rhythm Strip Rhythm Strip: Sinus Rhythm Rate: 66 Cardiology Labs/Tests 02/06/25 06:36: WBC 5.5, RBC 3.11 L, Hgb 9.1 L, Hct 27.5 L, MCV 88.4, MCH 29.3, MCHC 33.1, Plt Count 70 L, MPV 12.1 H, Immature Gran % (Auto) 0.400, Neut % (Auto) 68.2, Lymph % (Auto) 23.0, [place] % (Auto) 8.2, Eos % (Auto) 0.0, Baso % (Auto) 0.2, Absolute Neuts (auto) 3.7, Nucleated RBC % 0, Sodium 133, Potassium 4.0, Chloride 106, Carbon Dioxide 15.5 L, Anion Gap 12, BUN 38 H, Creatinine 1.47 H, Est GFR (MDRD) Non-Af 46 L, BUN/Creatinine Ratio 25.9 H, Glucose 97, Calcium 6.7 L, Phosphorus 3.3, Magnesium 2.0 Rhythm: EKG: ECHO: Stress Test: Cardiac Cath: PCI: CT Surgery: Holter monitor: EPS: PPM: CXR: Chest CT Scan: Radiography Diagnostic Testing: Radiology Impression Echocardiogram 02/05/25 00:02 Interpretation Summary There is moderate global hypokinesis of the left ventricle. Mildly dilated left ventricle. The left ventricular ejection fraction is 25 %. Bioprosthetic aortic valve. Contrast injection was performed. Ordering Physician: Rea Cancino Referring Physician: Rea Cancino Performed By: Tori Daniel, IGNACIO Physical Exam Narrative Comfortable. No apparent distress. Heart sounds 1 and 2 noted. Chest clear toauscultation bilaterally. Alert oriented x 3. No ankle edema. Assessment & Plan Assessment/Plan (1) Multifocal PVCs: PLAN: Resolved. In the setting of acute illness with shock and chronic LV systolic dysfunction. I would recommend discontinuing the amiodarone and monitoring him. If his heart rate improves, and blood pressure remains stable, then will start on beta-blockers. (2) H/O coronary artery bypass surgery: PLAN: History of CABG. Continue aspirin. Clopidogrel. (3) Chronic systolic (congestive) heart failure: PLAN: Furosemide. Start on ACEI and beta-blockers if hemodynamically remained stable. (4) History of aortic valve replacement with bioprosthetic valve: PLAN: Monitor. (5) Abdominal aortic aneurysm: PLAN: 4.5 cm abdominal aortic aneurysm reported on CT scan. For periodic ultrasound surveillance. (6) Thrombocytopenia: PLAN: Monitor. As per internal medicine/critical care. (7) Shock: PLAN: Likely combination distributive and cardiogenic. Improved. Off vasopressor agents. 02/06/25 0846 <Electronically signed by Criss Castro MD> Cosigner Signature (if applicable): CC: ~ Signed [facility] Work Phone: 1(942) 296-351806-26-2025 Progress note Author Lang Guzman [facility] Note Date/Time February 06, 2025 8:[address] [facility] Medical Records Department [address] [place] [id number] Progress Note - Stone Repairer 02/06/25 0759 MR#: [id number] Acct: [id number] Name: FLORIN VARGAS Rep #:[id number] : 1940 85 From: Lang Guzman DO PCP: Dr. Pedro Gonzalez MD Status:ADM IN Location: ICU ICU07-1 Assessment & Plan Assessment/Plan (1) Acute hypoxic respiratory failure: PLAN: Plan RECOMMENDATIONS: 1. Continue to wean supplemental oxygen to maintain saturations at or above 90%. 2. Antimicrobials, pending finalized culture results. 3. Medical management of arrhythmia and cardiomyopathy per cardiology recommendations. 4. Encourage incentive spirometer use and mobilize patient as tolerated. 5. Will sign off from a critical care perspective. Please call with any additional questions. IMPRESSIONS: 1. Acute hypoxemic respiratory failure Secondary to acute decompensated congestive heart failure, which has responded to diuresis and noninvasive positive pressure ventilatory support. The patient's respiratory status is significantly improved, requiring minimal supplemental O2 via nasal cannula. 2. Undifferentiated shock Differential would include septic versus cardiogenic etiology. Infectious workup is still pending. However, the patient has been weaned from vasopressor support and remains hemodynamically stable. Recommend continuing antimicrobials, pending finalized culture data. 3. Obstructive sleep apnea/BPH/obesity Complicates care, management, recovery and prognosis. Continue supportive measures as noted above. This note was generated with [employer] dictation software. It may contain incorrectwords, spelling, and punctuation that were not noted in checking the note beforesigning. Subjective Subjective The patient was seen and examined at the bedside this morning. Events from the last 24 hours have been reviewed. The patient is currently afebrile, hemodynamically stable and maintaining appropriate oxygen saturations on 3 L/minvia nasal cannula. The patient is currently in normal sinus rhythm. He was weaned off of Levophed completely yesterday. White blood cell count is normal. Hemoglobin is stable. Creatinine has improved to 1.47. Objective Data Objective Data The patient's most recent lab work, culture data and imaging studies have all been personally reviewed. Surface echocardiogram demonstrated a mildly dilated LV with an ejection fraction of 25% and moderate global hypokinesis of the LV. Blood urine and sputum cultures are pending. Vital Signs: Vital Signs Temp Pulse Resp BP Pulse Ox O2 Del Method O2 Flow Rate 99.5 F H 66 14 80/43 L 100 Nasal Cannula 2 02/06/25 00:28 02/06/25 00:28 02/06/25 00:28 02/06/25 00:28 02/06/25 00:02/06/25 00:02/06/25 00:28 FiO2 28 02/06/25 00:00 Oxygen Flow Rate (L/min) 2 Oxygen Delivery Method Nasal Cannula Weight: 188 lb 4.396 oz Body Mass Index (BMI) 30.4 Intake & Output: Intake and Output for Last 24 Hours 02/04/25 02/05/25 02/06/25 23:59 23:59 23:59 Intake Total 2500 / 2499 952.56 / 952.56 182.59 / 182.59 Output Total 3545 / 3545 700 / 700 Balance 2500 / 2500 -2592.44 / -2592.44 -517.41 / -517.41 Lab / Micro Data Attestation: I reviewed the patient's lab results. 02/06/25 06:36 02/06/25 06:36 Labs: Laboratory Results - last 24 hr 02/06/25 06:36: WBC 5.5, RBC 3.11 L, Hgb 9.1 L, Hct 27.5 L, MCV 88.4, MCH 29.3, MCHC 33.1, RDW Std Deviation 46.2 H, RDW Coeff of Jenaro 14.4, Plt Count 70 L, MPV 12.1 H, Immature Gran % (Auto) 0.400, Neut % (Auto) 68.2, Lymph % (Auto) 23.0, [place] % (Auto) 8.2, Eos % (Auto) 0.0, Baso % (Auto) 0.2, Absolute Neuts (auto) 3.7, Absolute Lymphs (auto) 1.26, Nucleated RBC % 0, Atypical Lymphocytes 1+, Sodium 133, Potassium 4.0, Chloride 106, Carbon Dioxide 15.5 L, Anion Gap 12, BUN 38 H, Creatinine 1.47 H, Estim Creat Clear Calc 37.64 L, Est GFR (MDRD) Non-Af 46 L, BUN/Creatinine Ratio 25.9 H, Glucose 97, Calcium 6.7 L, Phosphorus 3.3,Magnesium 2.0 Micro: Microbiology 02/05/25 10:00 Sputum, Expectorated/Coughed Gram Stain - Final 02/05/25 03:15 Mucosa - Nasopharyngeal Respiratory Panel (PCR) - Final Radiography Diagnostic Testing: Radiology Impression Echocardiogram 02/05/25 00:02 Interpretation Summary There is moderate global hypokinesis of the left ventricle. Mildly dilated left ventricle. The left ventricular ejection fraction is 25 %. Bioprosthetic aortic valve. Contrast injection was performed. Ordering Physician: Rea Cancino Referring Physician: Rea Cancino Performed By: Tori Daniel RDCS Rhythm Strip Rhythm Strip: Sinus Rhythm Rate: 100 Ectopy: PVC(s) Physical Exam Const alert and no apparent distress General Appearance: cooperative HEENT normocephalic, head/scalp atraumatic and moist oral mucous membranes Eyes PERRL, EOMs intact bilaterally and conjunctivae normal Neck supple General: trachea midline Chest inspection of chest normal Resp normal respiratory effort Auscultation: Negative for rales, rhonchi or wheezes Cardio regular rate and regular rhythm GI normal to inspection, nondistended, normoactive bowel sounds Extremity no clubbing, cyanosis or edema Skin no rashes or lesions noted Neuro CN's II-XII intact bilaterally, moves all extremities and no focal motor deficits Psych cooperative and affect normal Charges/Coding Visit Charges Inpatient E&M: 72461 Subs Hosp L2 02/06/25 0805 <Electronically signed by Lang Guzman DO> Cosigner Signature (if applicable): CC: ~ Signed [facility] Work Phone: [phone]) 530-801406-26-2025 Progress note [facility] Medical Records Department [address] [place] [address] Progress Note - Cardiology 02/06/25 0839 MR#: [id number] Acct: [id number] Name: FLORIN VARGAS Rep #:[id number] : 1940 85 From: Criss Castro MD PCP: Dr. Pedro Gonzalez MD Status:ADM IN Location: ICU ICU07-1 Subjective Subjective Doing well. Denies any complaints. Off vasopressors. Running low-grade fever this morning. Objective Data Vital Signs: Vital Signs Temp Pulse Resp BP Pulse Ox O2 Del Method O2 Flow Rate 99.5 F H 66 14 80/43 L 100 Nasal Cannula 2 02/06/25 00:28 02/06/25 00:28 02/06/25 00:28 02/06/25 00:28 02/06/25 00:28 02/06/25 00:28 02/06/25 00:28 FiO2 28 02/06/25 00:00 Oxygen Flow Rate (L/min) 2 Oxygen Delivery Method Nasal Cannula Weight: 188 lb 4.396 oz Body Mass Index (BMI) 30.4 Intake & Output: Intake and Output for Last 24 Hours 02/04/25 02/05/25 02/06/25 23:59 23:59 23:59 Intake Total 2500 / 2500 952.56 / 952.56 182.59 / 182.59 Output Total 3545 / 3545 700 / 700 Balance 2500 / 2500 -2592.44 / -2592.44 -517.41 / -517.41 Lab / Micro Data Attestation: I reviewed the patient's lab results. 02/06/25 06:36 02/06/25 06:36 Labs: Laboratory Results - last 24 hr 02/06/25 06:36: WBC 5.5, RBC 3.11 L, Hgb 9.1 L, Hct 27.5 L, MCV 88.4, MCH 29.3, MCHC 33.1, RDW Std Deviation 46.2 H, RDW Coeff of Jenaro 14.4, Plt Count 70 L, MPV 12.1 H, Immature Gran % (Auto) 0.400, Neut % (Auto) 68.2, Lymph % (Auto) 23.0, [place] % (Auto) 8.2, Eos % (Auto) 0.0, Baso % (Auto) 0.2, Absolute Neuts (auto) 3.7, Absolute Lymphs (auto) 1.26, Nucleated RBC % 0, Atypical Lymphocytes 1+, Sodium 133, Potassium 4.0, Chloride 106, Carbon Dioxide 15.5 L, Anion Gap 12, BUN 38 H, Creatinine 1.47 H, Estim Creat Clear Calc 37.64 L, Est GFR (MDRD) Non- Af 46 L, BUN/Creatinine Ratio 25.9 H, Glucose 97, Calcium 6.7 L, Phosphorus 3.3,Magnesium 2.0 Micro: Microbiology 02/05/25 10:00 Sputum, Expectorated/Coughed Gram Stain - Final 02/05/25 03:15 Mucosa - Nasopharyngeal Respiratory Panel (PCR) - Final Rhythm Strip Rhythm Strip: Sinus Rhythm Rate: 66 Cardiology Labs/Tests 02/06/25 06:36: WBC 5.5, RBC 3.11 L, Hgb 9.1 L, Hct 27.5 L, MCV 88.4, MCH 29.3, MCHC 33.1, Plt Count 70 L, MPV 12.1 H, Immature Gran % (Auto) 0.400, Neut % (Auto) 68.2, Lymph % (Auto) 23.0, [place] % (Auto) 8.2, Eos % (Auto) 0.0, Baso % (Auto) 0.2, Absolute Neuts (auto) 3.7, Nucleated RBC % 0, Sodium 133, Potassium 4.0, Chloride 106, Carbon Dioxide 15.5 L, Anion Gap 12, BUN 38 H, Creatinine 1.47 H, Est GFR (MDRD) Non-Af 46 L, BUN/Creatinine Ratio 25.9 H, Glucose 97, Calcium 6.7 L, Phosphorus 3.3, Magnesium 2.0 Rhythm: EKG: ECHO: Stress Test: Cardiac Cath: PCI: CT Surgery: Holter monitor: EPS: PPM: CXR: Chest CT Scan: Radiography Diagnostic Testing: Radiology Impression Echocardiogram 02/05/25 00:02 Interpretation Summary There is moderate global hypokinesis of the left ventricle. Mildly dilated left ventricle. The left ventricular ejection fraction is 25 %. Bioprosthetic aortic valve. Contrast injection was performed. Ordering Physician: Rea Cancino Referring Physician: Rea Cancino Performed By: Tori Daniel RDCS Physical Exam Narrative Comfortable. No apparent distress. Heart sounds 1 and 2 noted. Chest clear toauscultation bilaterally. Alert oriented x 3. No ankle edema. Assessment & Plan Assessment/Plan (1) Multifocal PVCs: PLAN: Resolved. In the setting of acute illness with shock and chronic LV systolic dysfunction. I would recommend discontinuing the amiodarone and monitoring him. If his heart rate improves, and blood pressure remains stable, then will start on beta-blockers. (2) H/O coronary artery bypass surgery: PLAN: History of CABG. Continue aspirin. Clopidogrel. (3) Chronic systolic (congestive) heart failure: PLAN: Furosemide. Start on ACEI and beta-blockers if hemodynamically remained stable. (4) History of aortic valve replacement with bioprosthetic valve: PLAN: Monitor. (5) Abdominal aortic aneurysm: PLAN: 4.5 cm abdominal aortic aneurysm reported on CT scan. For periodic ultrasound surveillance. (6) Thrombocytopenia: PLAN: Monitor. As per internal medicine/critical care. (7) Shock: PLAN: Likely combination distributive and cardiogenic. Improved. Off vasopressor agents. 02/06/25 0846 Cosigner Signature (if applicable): CC: ~ Signed [facility]06-26-2025 Progress note [facility] Medical Records Department [address] [place] [address] Progress Note - Stone Repairer 02/06/25 0759 MR#: [id number] Acct: [id number] Name: FLORIN VARGAS Rep #:[id number] : 1940 85 From: Lang Guzman DO PCP: Dr. Pedro Gonzalez MD Status:ADM IN Location: ICU ICU07-1 Assessment & Plan Assessment/Plan (1) Acute hypoxic respiratory failure: PLAN: Plan RECOMMENDATIONS: 1. Continue to wean supplemental oxygen to maintain saturations at or above 90%. 2. Antimicrobials, pending finalized culture results. 3. Medical management of arrhythmia and cardiomyopathy per cardiology recommendations. 4. Encourage incentive spirometer use and mobilize patient as tolerated. 5. Will sign off from a critical care perspective. Please call with any additional questions. IMPRESSIONS: 1. Acute hypoxemic respiratory failure Secondary to acute decompensated congestive heart failure, which has responded to diuresis and noninvasive positive pressure ventilatory support. The patient's respiratory status is significantly improved, requiring minimal supplemental O2 via nasal cannula. 2. Undifferentiated shock Differential would include septic versus cardiogenic etiology. Infectious workup is still pending. However, the patient has been weaned from vasopressor support and remains hemodynamically stable. Recommend continuing antimicrobials, pending finalized culture data. 3. Obstructive sleep apnea/BPH/obesity Complicates care, management, recovery and prognosis. Continue supportive measures as noted above. This note was generated with Dragon dictation software. It may contain incorrectwords, spelling, and punctuation that were not noted in checking the note beforesigning. Subjective Subjective The patient was seen and examined at the bedside this morning. Events from the last 24 hours have been reviewed. The patient is currently afebrile, hemodynamically stable and maintaining appropriate oxygen saturations on 3 L/minvia nasal cannula. The patient is currently in normal sinus rhythm. He was weaned off of Levophed completely yesterday. White blood cell count is normal. Hemoglobin is stable. Creatinine has improved to 1.47. Objective Data Objective Data The patient's most recent lab work, culture data and imaging studies have all been personally reviewed. Surface echocardiogram demonstrated a mildly dilated LV with an ejection fraction of 25% and moderate global hypokinesis of the LV. Blood urine and sputum cultures are pending. Vital Signs: Vital Signs Temp Pulse Resp BP Pulse Ox O2 Del Method O2 Flow Rate 99.5 F H 66 14 80/43 L 100 Nasal Cannula 2 02/06/25 00:28 02/06/25 00:28 02/06/25 00:28 02/06/25 00:28 02/06/25 00:28 02/06/25 00:28 02/06/25 00:28 FiO2 28 02/06/25 00:00 Oxygen Flow Rate (L/min) 2 Oxygen Delivery Method Nasal Cannula Weight: 188 lb 4.396 oz Body Mass Index (BMI) 30.4 Intake & Output: Intake and Output for Last 24 Hours 02/04/25 02/05/25 02/06/25 23:59 23:59 23:59 Intake Total 2500 / 2500 952.56 / 952.56 182.59 / 182.59 Output Total 3545 / 3545 700 / 700 Balance 2500 / 2500 -2592.44 / -2592.44 -517.41 / -517.41 Lab / Micro Data Attestation: I reviewed the patient's lab results. 02/06/25 06:36 02/06/25 06:36 Labs: Laboratory Results - last 24 hr 02/06/25 06:36: WBC 5.5, RBC 3.11 L, Hgb 9.1 L, Hct 27.5 L, MCV 88.4, MCH 29.3, MCHC 33.1, RDW Std Deviation 46.2 H, RDW Coeff of Jenaro 14.4, Plt Count 70 L, MPV 12.1 H, Immature Gran % (Auto) 0.400, Neut % (Auto) 68.2, Lymph % (Auto) 23.0, [place] % (Auto) 8.2, Eos % (Auto) 0.0, Baso % (Auto) 0.2, Absolute Neuts (auto) 3.7, Absolute Lymphs (auto) 1.26, Nucleated RBC % 0, Atypical Lymphocytes 1+, Sodium 133, Potassium 4.0, Chloride 106, Carbon Dioxide 15.5 L, Anion Gap 12, BUN 38 H, Creatinine 1.47 H, Estim Creat Clear Calc 37.64 L, Est GFR (MDRD) Non- Af 46 L, BUN/Creatinine Ratio 25.9 H, Glucose 97, Calcium 6.7 L, Phosphorus 3.3,Magnesium 2.0 Micro: Microbiology 02/05/25 10:00 Sputum, Expectorated/Coughed Gram Stain - Final 02/05/25 03:15 Mucosa - Nasopharyngeal Respiratory Panel (PCR) - Final Radiography Diagnostic Testing: Radiology Impression Echocardiogram 02/05/25 00:02 Interpretation Summary There is moderate global hypokinesis of the left ventricle. Mildly dilated left ventricle. The left ventricular ejection fraction is 25 %. Bioprosthetic aortic valve. Contrast injection was performed. Ordering Physician: Rea Cancino Referring Physician: Rea Cancino Performed By: Tori Daniel RDCS Rhythm Strip Rhythm Strip: Sinus Rhythm Rate: 100 Ectopy: PVC(s) Physical Exam Const alert and no apparent distress General Appearance: cooperative HEENT normocephalic, head/scalp atraumatic and moist oral mucous membranes Eyes PERRL, EOMs intact bilaterally and conjunctivae normal Neck supple General: trachea midline Chest inspection of chest normal Resp normal respiratory effort Auscultation: Negative for rales, rhonchi or wheezes Cardio regular rate and regular rhythm GI normal to inspection, nondistended, normoactive bowel sounds Extremity no clubbing, cyanosis or edema Skin no rashes or lesions noted Neuro CN's II-XII intact bilaterally, moves all extremities and no focal motor deficits Psych cooperative and affect normal Charges/Coding Visit Charges Inpatient E&M: 75675 Subs Hosp L2 02/06/25 0805 Cosigner Signature (if applicable): CC: ~ Signed [facility]06-25-2025 Consult note Author Cj Gardiner [facility] Note Date/Time 2025 8:47 pm [facility] Medical Records Department [address] [place] [address] Consultation - Cardiology 02/05/252036 MR#: [id number] Acct: [id number] Name: FLORIN VARGAS Rep #:[id number] : 1940 85 From: Cj Gardiner MD PCP: Dr. Pedro Gonzalez MD Status:ADM IN Location: ICU ICU07-1 Assessment & Plan Assessment/Plan (1) Multifocal PVCs: PLAN: Patient is noted to have multifocal premature ventricular complexes in thesetting of a low ejection fraction my recommendation is to start amiodarone and then transition him from IV to p.o. amiodarone. Depending on the findings further recommendations will be made. His ejection fraction remains stable at 35%. (2) H/O coronary artery bypass surgery: PLAN: He is status post coronary bypass surgery as noted above. I do not detectthat there is any evidence of ischemia at this time. (3) Chronic systolic (congestive) heart failure: PLAN: He does have chronic systolic heart failure. He was treated with intravenous diuresis and appears to have diuresed effectively. He can be switched over to oral agents at this time. When he is finally off the pressors he can also be put on low-dose beta-mohit He will continue with a SGLT2 inhibitor. (4) History of aortic valve replacement with bioprosthetic valve: PLAN: He is status post aortic valve replacement with a bioprosthetic valve thisappears to be stable based on his last echocardiogram. HPI Consult Data Date of Consult: 02/05/25 HPI Narrative HPI Narrative: FLORIN VARGAS, is a 85 M who presents to the emergency room after feeling significantly malaised. He had previously been seen at the [facility] offices early on the . He has a history of CAD s/p PCI to ostial, proximal, and mid RCA on 11/22/2017 at [facility], [facility] at [facility] in 2001 with SVG to LCX and SVG toRPDA, aortic valve stenosis s/p TAVR on 12/27/2017 at [facility] with #26mm [place] Jennifer S3 valve, mitral valve regurgitation, and hyperlipidemia. He underwent an echocardiogram in February 2022, which demonstrated a reduced ejection fraction of 35%. Which led him to a cardiac catheterization which demonstrated [place] multivessel coronary artery disease, his GRAJEDA to LAD was patent, he did have an 85% stenosis in his SVG to OM1, and chronically occluded SVG to RCA. He underwent PCI with a drug-eluting stent to his SVG to OM1. Repeat echocardiogram in July 2022 showed ejection fraction of 45%. He was evaluated at [facility] for CHF exacerbation in December 2024. Echocardiogram showed LV function 35%. Aortic valve appeared stable. He was discharged on Lasix 20 mg p.o. daily. He subsequently presented back to the emergency room out of the abundance of caution his blood pressure was noted to be low he was admitted to the intensive care unit started on pressor agents as well as antibiotics. He developed frequent premature ventricular complexes and cardiology was called for further evaluation and management an echocardiogram was performed this morning which demonstrated reduced ejection fraction of approximately 30 to 35%. He denied any significant chest pain or paroxysmal nocturnal dyspnea or pedal edema. [facility] Medical History GI treated with BiPAP Valvular heart disease HTN (hypertension) CAD (coronary artery disease) HFrEF (heart failure with reduced ejection fraction) Daytime hypersomnolence Nonrheumatic aortic (valve) stenosis Hyperlipidemia Atherosclerotic heart disease of [place] coronary artery without angina pectoris Atherosclerosis of coronary artery bypass graft without angina pectoris (~03/29/22) Home Medications ?Medication ?Instructions ?Recorded ?Last Taken ?Type vitamin E 200 unit capsule 200 unit PO DAILY 09/14/20 Unknown History aspirin 81 mg chewable tablet 81 mg PO Q OTHER DAY 03/29/22 History tamsulosin 0.4 mg capsule (Flomax) 0.4 mg PO QHS #30 c aps 01/27/22 Unknown Rx lisinopril 5 mg tablet 2.5 mg PO DAILY 07/14/23 Unk nown History clopidogrel 75 mg tablet 75 mg PO Q OTHER DAY #45 tab s 11/12/24 Unknown Rx dapagliflozin propanediol 10 mg 10 mg PO heart 5 Unknown History tablet dapagliflozin propanediol 10 mg 10 mg PO DAILY heart 0 02/05/25 Unknown History tablet (Farxiga) furosemide 40 mg tablet 80 mg PO QDAY 02/05/25 Unkno wn History Allergy/AdvReac Type Severity Reaction Status Date / Time No Known Allergies Allergy Verified 02/04/25 18:00 Family History Father Myocardial infarction CVA (cerebral vascular accident) Mother CHF (congestive heart failure) Brother CAD (coronary artery disease) Cancer leukemia Surgical History Presence of coronary artery bypass graft stent (~03/29/22) History of arthroplasty of knee H/O coronary artery bypass surgery (~01/2002) History of left inguinal hernia repair (~1961) Presence of stent in coronary artery Postsurgical percutaneous transluminal coronary angioplasty (PTCA) status History of aortic valve replacement with bioprosthetic valve (~12/27/17) Social History adopted: No household members: spouse [...] you feel safe at home: Yes ROS Constitutional Constitutional: Reports anorexia, malaise and weakness; Denies fever(s) or weight loss Eyes Eyes: Reports systems reviewed and no addt'l complaints, except as documented ENT HEENT: Reports systems reviewed and no addt'l complaints, except as documented Cardiovascular Cardiovascular: Denies chest pain at rest, chest pain with activity, dyspnea at rest, dyspnea on exertion, edema, palpitations or paroxysmal nocturnal dyspnea Respiratory/Chest Respiratory/Chest: Denies dyspnea on exertion, productive cough, shortness of breath at rest or shortness of breath with exertion Gastrointestinal Gastrointestinal: Denies change in bowel habits, nausea, vomiting or weight changes Genitourinary Genitourinary: Denies difficulty urinating Musculoskeletal Musculoskeletal: Denies joint stiffness or muscle weakness Integumentary Integumentary: Denies lesions Neurologic Neurologic: Denies dizziness or syncope Psychiatric Psychiatric: Denies anxiety Endocrine Endocrinology: Denies excessive sweating or fatigue Hematologic/Lymphatic Hematologic/Lymphatic: Denies anemia Allergic/Immunologic Allergic/Immunologic: Denies seasonal rhinorrhea Physical Exam Const alert and no apparent distress HEENT head/scalp atraumatic and moist oral mucous membranes Resp normal respiratory effort, no retractions, no use of accessory muscles and clearto auscultation bilaterally Cardio regular rate, regular rhythm, S1 normal heart sound and S2 normal heart sound GI normal to inspection, nondistended, normoactive bowel sounds, soft to palpation,non-tender and non-distended Extremity normal to inspection and full ROM Neuro Sensorium / Orientation: awake and alert Psych affect normal Risk Stratification Risk Stratification Applicable: No Objective Data Vital Signs: Vital Signs Temp Pulse Resp BP Pulse Ox O2 Del Method O2 Flow Rate 99.8 F H 80 19 H 120/90 H 95 Nasal Cannula 2 02/05/25 19:02/05/25 19:02/05/25 19:00 02/05/25 19:00 02/05/25 19:00 02/05/25 19:02/05/25 19:00 FiO2 28 02/05/25 12:10 Oxygen Flow Rate (L/min) 2 Oxygen Delivery Method Nasal Cannula Weight: 186 lb 1.122 oz Body Mass Index (BMI) 30.0 Intake & Output: Intake and Output for Last 24 Hours 02/03/25 02/04/25 02/05/25 23:59 23:59 23:59 Intake Total 2500 / 2500 852.56 / 852.56 Output Total 3545 / 3545 Balance 2500 / 2500 -2692.44 / -2692.44 Lab / Micro Data 02/05/25 04:47 02/05/25 04:47 Labs: Laboratory Results - last 24 hr 02/04/25 18:30: Plt Count 82 L, MPV 11.4, Differential Comment SCANNED, PlateletEstimate MOD DEC 02/04/25 18:58: Urine RBC 0-5 SEEN, Urine WBC 0 SEEN, Ur Squamous Epith Cells 0- 5 SEEN, Ur Renal Epithelial Cell 0-5 SEEN, Amorphous Sediment 1+, Urine Bacteria2+, Urine Mucus 0 SEEN 02/04/25 19:57: Troponin T Hi Sens 2 Hr 111 H* 02/04/25 21:56: Troponin T Hi Sens 4Hr 114 H*, Procalcitonin 1.39 H 02/05/25 04:47: WBC 4.6, RBC 3.63 L, Hgb 10.7 L, Hct 31.5 L, MCV 86.8, MCH 29.5,MCHC 34.0, RDW Std Deviation 45.0 H, RDW Coeff of Jenaro 14.0, Plt Count 86 L, MPV 10.9, Immature Gran % (Auto) 0.400, Neut % (Auto) 73.9 H, Lymph % (Auto) 16.4 L,[place] % (Auto) 9.1, Eos % (Auto) 0.0, Baso % (Auto) 0.2, Absolute Neuts (auto) 3.4, Absolute Lymphs (auto) 0.76 L, Nucleated RBC % 0, Sodium 130 L, Potassium 3.5, Chloride 96 L, Carbon Dioxide 18.7 L, Anion Gap 15, BUN 50 H, Creatinine 1.82 H, Estim Creat Clear Calc 30.24 L, Est GFR (MDRD) Non-Af 36 L, BUN/Creatinine Ratio 27.3 H, Glucose 121 H, Calcium 8.2, Total Bilirubin 0.75, AST 93 H, ALT 86 H, Alkaline Phosphatase 144 H, Total Protein 5.9, Albumin 3.4, Globulin 2.6, Albumin/Globulin Ratio 1.3, Triglycerides 80, Cholesterol 224 H, LDL Cholesterol, Calc 161, VLDL Cholesterol 16, HDL Cholesterol 47, Cholesterol/HDL Ratio 4.74, TSH 1.900 Micro: Microbiology 02/05/25 10:00 Sputum, Expectorated/Coughed Gram Stain - Final 02/05/25 03:15 Mucosa - Nasopharyngeal Respiratory Panel (PCR) - Final Rhythm Strip Rhythm Strip: Sinus Rhythm Rate: 100 Ectopy: PVC(s) Cardiology Labs/Tests 02/04/25 18:30: Plt Count 82 L, MPV 11.4 02/04/25 18:58: Urine RBC 0-5 SEEN, Urine WBC 0 SEEN 02/05/25 04:47: WBC 4.6, RBC 3.63 L, Hgb 10.7 L, Hct 31.5 L, MCV 86.8, MCH 29.5,MCHC 34.0, Plt Count 86 L, MPV 10.9, Immature Gran % (Auto) 0.400, Neut % (Auto)73.9 H, Lymph % (Auto) 16.4 L, [place] % (Auto) 9.1, Eos % (Auto) 0.0, Baso % (Auto) 0.2, Absolute Neuts (auto) 3.4, Nucleated RBC % 0, Sodium 130 L, Potassium 3.5, Chloride 96 L, Carbon Dioxide 18.7 L, Anion Gap 15, BUN 50 H, Creatinine 1.82 H, Est GFR (MDRD) Non-Af 36 L, BUN/Creatinine Ratio 27.3 H, Glucose 121 H, Calcium 8.2, Total Bilirubin 0.75, Triglycerides 80, Cholesterol 224 H, VLDL Cholesterol 16, HDL Cholesterol 47, Cholesterol/HDL Ratio 4.74 Rhythm: EKG: ECHO: Stress Test: Cardiac Cath: PCI: CT Surgery: Holter monitor: EPS: PPM: CXR: Chest CT Scan: Radiography Diagnostic Testing: Radiology Impression Chest/Abdomen/Pelvis CT 02/04/25 20:37 IMPRESSION: 1. Trace pleural effusions, vpqyw-qnmfobx-qyqz-left. 2. Gallbladder wall thickening, without radiodense stones. This is a nonspecific finding and could be related to fluid overload. Consider ultrasound if patient has associated symptoms. 3. Abdominal aortic aneurysm measuring 4.5 cm. 4. Solid pulmonary nodule in the right middle lobe measuring 4 mm, consider CT chest in 12 months if patient is at high risk for malignancy per Fleischner society guidelines. Reading Location: [id number] Gallbladder Ultrasound 02/04/25 22:47 IMPRESSION: 1. Limited evaluation due to incomplete distention of the gallbladder. No radiodense stones are seen. There is mild wall thickening, similar to same day CT. 2. Findings suggestive of hepatic steatosis. Reading Location: [id number] Echocardiogram 02/05/25 00:02 Interpretation Summary There is moderate global hypokinesis of the left ventricle. Mildly dilated left ventricle. The left ventricular ejection fraction is 25 %. Bioprosthetic aortic valve. Contrast injection was performed. Ordering Physician: Rea Cancino Referring Physician: Rea Cancino Performed By: Tori Daniel RDCS 02/05/252046 <Electronically signed by Cj Gardiner MD> Cosigner Signature (if applicable): CC: Dr. Rea Cancino MD; Dr. Pedro Gonzalez MD~ Signed [facility] Work Phone: [phone]) 139-824806-25-2025 Consult note [facility] Medical Records Department [address] [place] [address] Consultation - Cardiology 02/05/252036 MR#: [id number] Acct: [id number] Name: FLORIN VARGAS Rep #:[id number] : 1940 85 From: Cj Gardiner MD PCP: Dr. Pedro Gonzalez MD Status:ADM IN Location: ICU ICU07-1 Assessment & Plan Assessment/Plan (1) Multifocal PVCs: PLAN: Patient is noted to have multifocal premature ventricular complexes in thesetting of a low ejection fraction my recommendation is to start amiodarone and then transition him from IV to p.o. amiodarone. Depending on the findings further recommendations will be made. His ejection fraction remains stable at 35%. (2) H/O coronary artery bypass surgery: PLAN: He is status post coronary bypass surgery as noted above. I do not detectthat there is any evidence of ischemia at this time. (3) Chronic systolic (congestive) heart failure: PLAN: He does have chronic systolic heart failure. He was treated with intravenous diuresis and appears to have diuresed effectively. He can be switched over to oral agents at this time. When he is finally off the pressors he can also be put on low-dose beta-mohit He will continue with a SGLT2 inhibitor. (4) History of aortic valve replacement with bioprosthetic valve: PLAN: He is status post aortic valve replacement with a bioprosthetic valve thisappears to be stable based on his last echocardiogram. HPI Consult Data Date of Consult: 02/05/25 HPI Narrative HPI Narrative: FLORIN VARGAS, is a 85 M who presents to the emergency room after feeling significantly malaised. He had previously been seen at the [facility] offices early on the . He has a history of CADs/p PCI to ostial, proximal, and mid RCA on 11/22/2017 at [facility], [facility] at [facility] in 2001 with SVG to LCX and SVG toRPDA, aortic valve stenosis s/p TAVR on 12/27/2017 at [facility] with #26mm Buckley Jennifer S3 valve, mitral valve regurgitation, and hyperlipidemia. He underwent an echocardiogram in February 2022, which demonstrated a reduced ejection fraction of 35%.Which led him to a cardiac catheterization which demonstrated [place] multivessel coronary artery disease, his GRAJEDA to LAD was patent, he did have an 85% stenosis in his SVG to OM1, and chronically occluded SVG to RCA. He underwent PCI with a drug-eluting stent to his SVG to OM1. Repeat echocardiogram in July 2022 showed ejection fraction of 45%. He was evaluated at [facility] for CHF exacerbation in December 2024. Echocardiogram showed LV function 35%. Aortic valve appeared stable. He was discharged on Lasix 20 mg p.o. daily. He subsequently presented back to the emergency roomout of the abundance of caution his blood pressure was noted to be low he was admitted to the intensive care unit started on pressor agents as well as antibiotics. He developed frequent premature ventricular complexes and cardiology was called for further evaluation and management an echocardiogramwas performed this morning which demonstrated reduced ejection fraction of approximately 30 to 35%.He denied any significant chest pain or paroxysmal nocturnal dyspnea or pedal edema. [facility] Medical History GI treated with BiPAP Valvular heart disease HTN (hypertension) CAD (coronary artery disease) HFrEF (heart failure with reduced ejection fraction) Daytime hypersomnolence Nonrheumatic aortic (valve) stenosis Hyperlipidemia Atherosclerotic heart disease of [place] coronary artery without angina pectoris Atherosclerosis of coronary artery bypass graft without angina pectoris (~03/29/22) Home Medications ?Medication ?Instructions ?Recorded ?Last Taken ?Type vitamin E 200 unit capsule 200 unit PO DAILY 09/14/20 Unknown History aspirin 81 mg chewable tablet 81 mg PO Q OTHER DAY 03/29/22 History tamsulosin 0.4 mg capsule (Flomax) 0.4 mg PO QHS #30 c aps 01/27/22 Unknown Rx lisinopril 5 mg tablet 2.5 mg PO DAILY 07/14/23 Unk nown History clopidogrel 75 mg tablet 75 mg PO Q OTHER DAY #45 tab s 11/12/24 Unknown Rx dapagliflozin propanediol 10 mg 10 mg PO heart 5 Unknown History tablet dapagliflozin propanediol 10 mg 10 mg PO DAILY heart 0 02/05/25 Unknown History tablet (Farxiga) furosemide 40 mg tablet 80 mg PO QDAY 02/05/25 Unkno wn History Allergy/AdvReac Type Severity Reaction Status Date / Time No Known Allergies Allergy Verified 02/04/25 18:00 Family History Father Myocardial infarction CVA (cerebral vascular accident) Mother CHF (congestive heart failure) Brother CAD (coronary artery disease) Cancer leukemia Surgical History Presence of coronary artery bypass graft stent (~03/29/22) History of arthroplasty of knee H/O coronary artery bypass surgery (~01/2002) History of left inguinal hernia repair (~1961) Presence of stent in coronary artery Postsurgical percutaneous transluminal coronary angioplasty (PTCA) status History of aortic valve replacement with bioprosthetic valve (~12/27/17) Social History adopted: No household members: spouse housing: house number of children: 6 current occupational status: employed current occupation: [employer] current occupational exposures/hazards: No pets and [...] you feel safe at home: Yes ROS Constitutional Constitutional: Reports anorexia, malaise and weakness; Denies fever(s) or weight loss Eyes Eyes: Reports systems reviewed and no addt'l complaints, except as documented ENT HEENT: Reports systems reviewed and no addt'l complaints, except as documented Cardiovascular Cardiovascular: Denies chest pain at rest, chest pain with activity, dyspnea at rest, dyspnea on exertion, edema, palpitations or paroxysmal nocturnal dyspnea Respiratory/Chest Respiratory/Chest: Denies dyspnea on exertion, productive cough, shortness of breath at rest or shortness of breath with exertion Gastrointestinal Gastrointestinal: Denies change in bowel habits, nausea, vomiting or weight changes Genitourinary Genitourinary: Denies difficulty urinating Musculoskeletal Musculoskeletal: Denies joint stiffness or muscle weakness Integumentary Integumentary: Denies lesions Neurologic Neurologic: Denies dizziness or syncope Psychiatric Psychiatric: Denies anxiety Endocrine Endocrinology: Denies excessive sweating or fatigue Hematologic/Lymphatic Hematologic/Lymphatic: Denies anemia Allergic/Immunologic Allergic/Immunologic: Denies seasonal rhinorrhea Physical Exam Const alert and no apparent distress HEENT head/scalp atraumatic and moist oral mucous membranes Resp normal respiratory effort, no retractions, no use of accessory muscles and clearto auscultation bilaterally Cardio regular rate, regular rhythm, S1 normal heart sound and S2 normal heart sound GI normal to inspection, nondistended, normoactive bowel sounds, soft to palpation,non-tender and non-distended Extremity normal to inspection and full ROM Neuro Sensorium / Orientation: awake and alert Psych affect normal Risk Stratification Risk Stratification Applicable: No Objective Data Vital Signs: Vital Signs Temp Pulse Resp BP Pulse Ox O2 Del Method O2 Flow Rate 99.8 F H 80 19 H 120/90 H 95 Nasal Cannula 2 02/05/25 19:00 02/05/25 19:00 02/05/25 19:00 02/05/25 19:00 02/05/25 19:00 02/05/25 19:00 02/05/25 19:00 FiO2 28 02/05/25 12:10 Oxygen Flow Rate (L/min) 2 Oxygen Delivery Method Nasal Cannula Weight: 186 lb 1.122 oz Body Mass Index (BMI) 30.0 Intake & Output: Intake and Output for Last 24 Hours 02/03/25 02/04/25 02/05/25 23:59 23:59 23:59 Intake Total 2500 / 2500 852.56 / 852.56 Output Total 3545 / 3545 Balance 2500 / 2500 -2692.44 / -2692.44 Lab / Micro Data 02/05/25 04:47 02/05/25 04:47 Labs: Laboratory Results - last 24 hr 02/04/25 18:30: Plt Count 82 L, MPV 11.4, Differential Comment SCANNED, PlateletEstimate MOD DEC 02/04/25 18:58: Urine RBC 0-5 SEEN, Urine WBC 0 SEEN, Ur Squamous Epith Cells 0- 5 SEEN, Ur Renal Epithelial Cell 0-5 SEEN, Amorphous Sediment 1+, Urine Bacteria2+, Urine Mucus 0 SEEN 02/04/25 19:57: Troponin T Hi Sens 2 Hr 111 H* 02/04/25 21:56: Troponin T Hi Sens 4Hr 114 H*, Procalcitonin 1.39 H 02/05/25 04:47: WBC 4.6, RBC 3.63 L, Hgb 10.7 L, Hct 31.5 L, MCV 86.8, MCH 29.5,MCHC 34.0, RDW Std Deviation 45.0 H, RDW Coeff of [place] 14.0, Plt Count 86 L, MPV 10.9, Immature Gran % (Auto) 0.400, Neut % (Auto) 73.9 H, Lymph % (Auto) 16.4 L,[place] % (Auto) 9.1, Eos % (Auto) 0.0, Baso % (Auto) 0.2, Absolute Neuts (auto) 3.4, Absolute Lymphs (auto) 0.76 L, Nucleated RBC % 0, Sodium 130 L, Potassium 3.5, Chloride 96 L, Carbon Dioxide 18.7 L, Anion Gap 15, BUN 50 H, Creatinine 1.82 H, Estim Creat Clear Calc 30.24 L, Est GFR (MDRD) Non-Af 36 L, BUN/Creatinine Ratio 27.3 H, Glucose 121 H, Calcium 8.2,Total Bilirubin 0.75, AST 93 H, ALT 86 H, Alkaline Phosphatase 144 H, Total Protein 5.9, Albumin 3.4, Globulin 2.6, Albumin/Globulin Ratio 1.3, Triglycerides 80, Cholesterol 224 H, LDL Cholesterol, Calc 161, VLDL Cholesterol 16, HDL Cholesterol 47, Cholesterol/HDL Ratio 4.74, TSH 1.900 Micro: Microbiology 02/05/25 10:00 Sputum, Expectorated/Coughed Gram Stain - Final 02/05/25 03:15 Mucosa - Nasopharyngeal Respiratory Panel (PCR) - Final Rhythm Strip Rhythm Strip: Sinus Rhythm Rate: 100 Ectopy: PVC(s) Cardiology Labs/Tests 02/04/25 18:30: Plt Count 82 L, MPV 11.4 02/04/25 18:58: Urine RBC 0-5 SEEN, Urine WBC 0 SEEN 02/05/25 04:47: WBC 4.6, RBC 3.63 L, Hgb 10.7 L, Hct 31.5 L, MCV 86.8, MCH 29.5,MCHC 34.0, Plt Count 86 L, MPV 10.9, Immature Gran % (Auto) 0.400, Neut % (Auto)73.9 H, Lymph % (Auto) 16.4 L, [place] % (Auto) 9.1, Eos % (Auto) 0.0, Baso % (Auto) 0.2, Absolute Neuts (auto) 3.4, Nucleated RBC % 0, [id number] L, Potassium 3.5, Chloride 96 L, Carbon Dioxide 18.7 L, Anion Gap 15, BUN 50 H, Creatinine 1.82H, Est GFR (MDRD) Non-Af 36 L, BUN/Creatinine Ratio 27.3 H, Glucose 121 H, Calcium 8.2, Total Bilirubin 0.75, Triglycerides 80, Cholesterol 224 H, VLDL Cholesterol 16, HDL Cholesterol 47, Cholesterol/HDL Ratio 4.74 Rhythm: EKG: ECHO: Stress Test: Cardiac Cath: PCI: CT Surgery: Holter monitor: EPS: PPM: CXR: Chest CT Scan: Radiography Diagnostic Testing: Radiology Impression Chest/Abdomen/Pelvis CT 02/04/25 20:37 IMPRESSION: 1. Trace pleural effusions, isrds-cbbqpnn-kcjq-left. 2. Gallbladder wall thickening, without radiodense stones. This is a nonspecific finding and could be related to fluid overload. Consider ultrasound if patient has associated symptoms. 3. Abdominal aortic aneurysm measuring 4.5 cm. 4. Solid pulmonary nodule in the right middle lobe measuring 4 mm, consider CT chest in 12 months if patient is at high risk for malignancy per Fleischner society guidelines. Reading Location: [facility] Gallbladder Ultrasound 02/04/25 22:47 IMPRESSION: 1. Limited evaluation due to incomplete distention of the gallbladder. No radiodense stones are seen. There is mild wall thickening, similar to same day CT. 2. Findings suggestive of hepatic steatosis. Reading Location: [facility] Echocardiogram 02/05/25 00:02 Interpretation Summary There is moderate global hypokinesis of the left ventricle. Mildly dilated left ventricle. The left ventricular ejection fraction is 25 %. Bioprosthetic aortic valve. Contrast injection was performed. Ordering Physician: Rea Cancino Referring Physician: Rea Cancino Performed By: Tori Daniel RDCS 02/05/252046 Cosigner Signature (if applicable): CC: Dr. Rea Cancino MD; Dr. Pedro Gonzalez MD~ Signed [facility]06-25-2025 Progress note Author Pedro Galvan [facility] Note Date/Time 2025 1:57 pm [facility] Medical Records Department [address] [place] [address] Progress Note - Hospitalist 02/05/25 0654 MR#: [id number] Acct: [id number] Name: FLORIN VARGAS Rep #:[id number] : 1940 85 From: Pedro Galvan DO PCP: Dr. Pedro Gonzalez MD Status:ADM IN Location: ICU ICU-1 Reason for Visit Reason for Visit: Diagnoses Heart failure, unspecified (02/04/25) Subjective Subjective Denies pain. Still having fevers. Objective Data Objective Data Vital Signs: Vital Signs Temp Pulse Resp BP Pulse Ox O2 Del Method O2 Flow Rate 36.5 C L 75 14 106/58 L 100 CPAP 2 02/05/25 06:00 02/05/25 06:00 02/05/25 06:00 02/05/25 06:00 02/05/25 06:00 02/05/25 06:00 02/04/25 21:00 FiO2 28 02/05/25 05:12 Oxygen Flow Rate (L/min) 2 Oxygen Delivery Method CPAP Weight: 84.4 kg Body Mass Index (BMI) 30.0 Intake & Output: Intake and Output for Last 24 Hours 02/03/25 02/04/25 02/05/25 23:59 23:59 23:59 Intake Total 2500 / 2500 176.89 / 176.89 Output Total 2450 / 2450 Balance 2500 / 2500 -2273.11 / -2273.11 Lab / Micro Data 02/05/25 04:47 02/05/25 04:47 Labs: Laboratory Results - last 24 hr 02/04/25 17:57: Sodium 125 L, Potassium 3.9, Chloride 92 L, Carbon Dioxide 18.4 L, Anion Gap 15, BUN 50 H, Creatinine 1.94 H, Estim Creat Clear Calc 28.98 L, Est GFR (MDRD) Non-Af 33 L, BUN/Creatinine Ratio 25.8 H, Glucose 131 H, Calcium 8.0, Magnesium 2.1, Total Bilirubin 0.66, AST 108 H, ALT 84 H, Alkaline Phosphatase 137 H, Troponin T High Sens 108 H*, [place] [address] H, Total Protein 5.9, Albumin 3.5, Globulin 2.4, Albumin/Globulin Ratio 1.5 02/04/25 18:30: WBC 5.7, RBC 3.63 L, Hgb 10.6 L, Hct 31.0 L, MCV 85.4, MCH 29.2,MCHC 34.2, RDW Std Deviation 43.8, RDW Coeff of Jen[place] 13.9, Plt Count 82 L, MPV 11.4, Immature Gran % (Auto) 0.500, Neut % (Auto) 79.6 H, Lymph % (Auto) 12.3 L,[place] % (Auto) 7.4, Eos % (Auto) 0.0, Baso % (Auto) 0.2, Absolute Neuts (auto) 4.5, Absolute Lymphs (auto) 0.70 L, Nucleated RBC % 0, Differential Comment SCANNED, Platelet Estimate MOD DEC, PT 16.0 H, INR 1.3, APTT 32.2, Lactic Acid 1.3 02/04/25 18:58: Urine Color Yellow, Urine Clarity Sl. Cloudy, Urine pH 5.0, Ur Specific [place] 1.020, Urine Protein 30 H, Urine Glucose (UA) Normal, Urine Ketones Negative, Urine Occult Blood 50 H, Urine Nitrite Negative, Urine Bilirubin Negative, Urine Urobilinogen Normal, Ur Leukocyte Esterase Negative, Urine RBC 0-5 SEEN, Urine WBC 0 SEEN, Ur Squamous Epith Cells 0-5 SEEN, Ur RenalEpithelial Cell 0-5 SEEN, Amorphous Sediment 1+, Urine Bacteria 2+, Urine Mucus 0 SEEN 02/04/25 19:57: Troponin T Hi Sens 2 Hr 111 H* 02/04/25 21:56: Troponin T Hi Sens 4Hr 114 H*, Procalcitonin 1.39 H 02/05/25 04:47: WBC 4.6, RBC 3.63 L, Hgb 10.7 L, Hct 31.5 L, MCV 86.8, MCH 29.5,MCHC 34.0, RDW Std Deviation 45.0 H, RDW Coeff of [place] 14.0, Plt Count 86 L, MPV 10.9, Immature Gran % (Auto) 0.400, Neut % (Auto) 73.9 H, Lymph % (Auto) 16.4 L,[place] % (Auto) 9.1, Eos % (Auto) 0.0, Baso % (Auto) 0.2, Absolute Neuts (auto) 3.4, Absolute Lymphs (auto) 0.76 L, Nucleated RBC % 0, Sodium 130 L, Potassium 3.5, Chloride 96 L, Carbon Dioxide 18.7 L, Anion Gap 15, BUN 50 H, Creatinine 1.82 H, Estim Creat Clear Calc 30.24 L, Est GFR (MDRD) Non-Af 36 L, BUN/Creatinine Ratio 27.3 H, Glucose 121 H, Calcium 8.2, Total Bilirubin 0.75, AST 93 H, ALT 86 H, Alkaline Phosphatase 144 H, Total Protein 5.9, Albumin 3.4, Globulin 2.6, Albumin/Globulin Ratio 1.3, Triglycerides 80, Cholesterol 224 H, LDL Cholesterol, Calc 161, VLDL Cholesterol 16, HDL Cholesterol 47, Cholesterol/HDL Ratio 4.74, TSH 1.900 ABG Data ABG results: ABG 02/04/25 20:14 Specimen Type HEIDI Sample Site Not entered VBG pH 7.47 H VBG pO2 37 VBG HCO3 20 L VBG Total CO2 21 L VBG O2 Sat (Calc) 76 H VBG Base Excess -4 L POC Mix VBG pCO2 Pt Tmp 27.3 L O2 Delivery Device Room Air Radiography Diagnostic Testing: Radiology Impression Chest X-Ray 02/04/25 19:02 IMPRESSION: Prominent interstitial markings with enlarged cardiomediastinal silhouette, as can be seen with cardiogenic pulmonary edema. Reading Location: [id number] Chest/Abdomen/Pelvis CT 02/04/25 20:37 IMPRESSION: 1. Trace pleural effusions, uneob-ssijlir-xuuh-left. 2. Gallbladder wall thickening, without radiodense stones. This is a nonspecific finding and could be related to fluid overload. Consider ultrasound if patient has associated symptoms. 3. Abdominal aortic aneurysm measuring 4.5 cm. 4. Solid pulmonary nodule in the right middle lobe measuring 4 mm, consider CT chest in 12 months if patient is at high risk for malignancy per Fleischner society guidelines. Reading Location: [id number] Gallbladder Ultrasound 02/04/25 22:47 IMPRESSION: 1. Limited evaluation due to incomplete distention of the gallbladder. No radiodense stones are seen. There is mild wall thickening, similar to same day CT. 2. Findings suggestive of hepatic steatosis. Reading Location: [facility] Rhythm Strip Rhythm Strip: Sinus Rhythm Rate: 100 Ectopy: PVC(s) Physical Exam Narrative POCUS: Indication shock. IVC dilated and noncompressible with respirations. Overall global cardiomyopathy no vegetation noted on valves. Pulmonary exam shows B- lines anteriorly as well as laterally. Kidneys visualized and grossly appeared normal bilaterally. Const alert and no apparent distress HEENT head/scalp atraumatic and moist oral mucous membranes Resp normal respiratory effort, no retractions, no use of accessory muscles and clearto auscultation bilaterally Cardio regular rate, regular rhythm, S1 normal heart sound and S2 normal heart sound GI normal to inspection, nondistended, normoactive bowel sounds, soft to palpation,non-tender and non-distended Extremity normal to inspection and full ROM Neuro Sensorium / Orientation: awake and alert Psych affect normal Assessment & Plan Assessment/Plan (1) Acute hypoxic respiratory failure: PLAN: 2/2 CHF. On CPAP. Wean oxygen as tolerated. On empiric abx with pip/tazo (2) CHF exacerbation: PLAN: EF 35% from 12/12/24. Repeat echo ordered. On IV furosemide no ACEi/ARB given shock. Cards consult. (3) Shock: PLAN: unclear type: septic v cardiogenic. on norepi (4) Transaminitis: PLAN: thickening noted on CT and US. Unclear significance at this time. may be hepatic congestion. continue to monitor (5) Thrombocytopenia: PLAN: acute on chronic, unclear significance. monitor for now. (6) Elevated troponin: PLAN: Unclear type at this time. Troponins 108 to 111 to 114. May be skewed upwards given MICHELLE. on ASA, clopidogrel, PLAN: Plan BPH: tamsulosin BTE prophylaxis: anticoagulated with heparin. Charges/Coding Visit Charges Inpatient E&M: 22237 Subs Hosp L3 02/05/25 1357 <Electronically signed by Pedro Galvan DO> Cosigner Signature (if applicable): CC: ~ Signed [facility] Work Phone: 1(236) 251-514406-25-2025 Progress note [facility] Medical Records Department [address] [place] [address] Progress Note - Hospitalist 02/05/25 0654 MR#: [id number] Acct: [id number] Name: FLORIN VARGAS Rep #:[id number] : 1940 85 From: Pedro Galvan DO PCP: Dr. Pedro Gonzalez MD Status:ADM IN Location: ICU ICU- Reason for Visit Reason for Visit: Diagnoses Heart failure, unspecified (02/04/25) Subjective Subjective Denies pain. Still having fevers. Objective Data Objective Data Vital Signs: Vital Signs Temp Pulse Resp BP Pulse Ox O2 Del Method O2 Flow Rate 36.5 C L 75 14 106/58 L 100 CPAP 2 02/05/25 06:00 02/05/25 06:00 02/05/25 06:00 02/05/25 06:00 02/05/25 06:00 02/05/25 06:00 02/04/25 21:00 FiO2 28 02/05/25 05:12 Oxygen Flow Rate (L/min) 2 Oxygen Delivery Method CPAP Weight: 84.4 kg Body Mass Index (BMI) 30.0 Intake & Output: Intake and Output for Last 24 Hours 02/03/25 02/04/25 02/05/25 23:59 23:59 23:59 Intake Total 2500 / 2500 176.89 / 176.89 Output Total 2450 / 2450 Balance 2500 / 2500 -2273.11 / -2273.11 Lab / Micro Data 02/05/25 04:47 02/05/25 04:47 Labs: Laboratory Results - last 24 hr 02/04/25 17:57: Sodium 125 L, Potassium 3.9, Chloride 92 L, Carbon Dioxide 18.4 L, Anion Gap 15, BUN 50 H, Creatinine 1.94 H, Estim Creat Clear Calc 28.98 L, Est GFR (MDRD) Non-Af 33 L, BUN/Creatinine Ratio 25.8 H, Glucose 131 H, Calcium 8.0, Magnesium 2.1, Total Bilirubin 0.66, AST 108 H, ALT 84 H, Alkaline Phosphatase 137 H, Troponin T High Sens 108 H*, [place] [address] H, Total Protein 5.9,Albumin 3.5, Globulin 2.4, Albumin/Globulin Ratio 1.5 02/04/25 18:30: WBC 5.7, RBC 3.63 L, Hgb 10.6 L, Hct 31.0 L, MCV 85.4, MCH 29.2,MCHC 34.2, RDW Std Deviation 43.8, RDW Coeff of Jen[place] 13.9, Plt Count 82 L, MPV 11.4, Immature Gran % (Auto) 0.500, Neut % (Auto) 79.6 H, Lymph % (Auto) 12.3 L,[place] % (Auto) 7.4, Eos % (Auto) 0.0, Baso % (Auto) 0.2, Absolute Neuts (auto) 4.5, Absolute Lymphs (auto) 0.70 L, Nucleated RBC % 0, Differential Comment SCANNED, Platelet Estimate MOD DEC, PT 16.0 H, INR 1.3, APTT 32.2, Lactic Acid 1.3 02/04/25 18:58: Urine Color Yellow, Urine Clarity Sl. Cloudy, Urine pH 5.0, Ur Specific [place] 1.020, Urine Protein 30 H, Urine Glucose (UA) Normal, Urine Ketones Negative, Urine Occult Blood 50 H, Urine Nitrite Negative, Urine Bilirubin Negative, Urine Urobilinogen Normal, Ur Leukocyte Esterase Negative, Urine RBC 0-5 SEEN, Urine WBC 0 SEEN, Ur Squamous Epith Cells 0-5 SEEN, Ur RenalEpithelial Cell 0-5 SEEN, Amorphous Sediment 1+, Urine Bacteria 2+, Urine Mucus 0 SEEN 02/04/25 19:57: Troponin T Hi Sens 2 Hr 111 H* 02/04/25 21:56: Troponin T Hi Sens 4Hr 114 H*, Procalcitonin 1.39 H 02/05/25 04:47: WBC 4.6, RBC 3.63 L, Hgb 10.7 L, Hct 31.5 L, MCV 86.8, MCH 29.5,MCHC 34.0, RDW Std Deviation 45.0 H, RDW Coeff of [place] 14.0, Plt Count 86 L, MPV 10.9, Immature Gran % (Auto) 0.400, Neut % (Auto) 73.9 H, Lymph % (Auto) 16.4 L,[place] % (Auto) 9.1, Eos % (Auto) 0.0, Baso % (Auto) 0.2, Absolute Neuts (auto) 3.4, Absolute Lymphs (auto) 0.76 L, Nucleated RBC % 0, Sodium 130 L, Potassium 3.5, Chloride 96 L, Carbon Dioxide 18.7 L, Anion Gap 15, BUN 50 H, Creatinine 1.82 H, Estim Creat Clear Calc 30.24 L, Est GFR (MDRD) Non-Af 36 L, BUN/Creatinine Ratio 27.3 H, Glucose 121 H, Calcium 8.2,Total Bilirubin 0.75, AST 93 H, ALT 86 H, Alkaline Phosphatase 144 H, Total Protein 5.9, Albumin 3.4, Globulin 2.6, Albumin/Globulin Ratio 1.3, Triglycerides 80, Cholesterol 224 H, LDL Cholesterol, Calc 161, VLDL Cholesterol 16, HDL Cholesterol 47, Cholesterol/HDL Ratio 4.74, TSH 1.900 ABG Data ABG results: ABG 02/04/25 20:14 Specimen Type HEIDI Sample Site Not entered VBG pH 7.47 H VBG pO2 37 VBG HCO3 20 L VBG Total CO2 21 L VBG O2 Sat (Calc) 76 H VBG Base Excess -4 L POC Mix VBG pCO2 Pt Tmp 27.3 L O2 Delivery Device Room Air Radiography Diagnostic Testing: Radiology Impression Chest X-Ray 02/04/25 19:02 IMPRESSION: Prominent interstitial markings with enlarged cardiomediastinal silhouette, as can be seen with cardiogenic pulmonary edema. Reading Location: [id number] Chest/Abdomen/Pelvis CT 02/04/25 20:37 IMPRESSION: 1. Trace pleural effusions, ydaeb-yolsubs-xipa-left. 2. Gallbladder wall thickening, without radiodense stones. This is a nonspecific finding and could be related to fluid overload. Consider ultrasound if patient has associated symptoms. 3. Abdominal aortic aneurysm measuring 4.5 cm. 4. Solid pulmonary nodule in the right middle lobe measuring 4 mm, consider CT chest in 12 months if patient is at high risk for malignancy per Fleischner society guidelines. Reading Location: [facility] Gallbladder Ultrasound 02/04/25 22:47 IMPRESSION: 1. Limited evaluation due to incomplete distention of the gallbladder. No radiodense stones are seen. There is mild wall thickening, similar to same day CT. 2. Findings suggestive of hepatic steatosis. Reading Location: [facility] Rhythm Strip Rhythm Strip: Sinus Rhythm Rate: 100 Ectopy: PVC(s) Physical Exam Narrative POCUS: Indication shock. IVC dilated and noncompressible with respirations. Overall global cardiomyopathy no vegetation noted on valves. Pulmonary exam shows B-lines anteriorly as well as laterally. Kidneys visualized and grossly appeared normal bilaterally. Const alert and no apparent distress HEENT head/scalp atraumatic and moist oral mucous membranes Resp normal respiratory effort, no retractions, no use of accessory muscles and clearto auscultation bilaterally Cardio regular rate, regular rhythm, S1 normal heart sound and S2 normal heart sound GI normal to inspection, nondistended, normoactive bowel sounds, soft to palpation,non-tender and non-distended Extremity normal to inspection and full ROM Neuro Sensorium / Orientation: awake and alert Psych affect normal Assessment & Plan Assessment/Plan (1) Acute hypoxic respiratory failure: PLAN: 2/2 CHF. On CPAP. Wean oxygen as tolerated. On empiric abx with pip/tazo (2) CHF exacerbation: PLAN: EF 35% from 12/12/24. Repeat echo ordered. On IV furosemide no ACEi/ARB given shock. Cards consult. (3) Shock: PLAN: unclear type: septic v cardiogenic. on norepi (4) Transaminitis: PLAN: thickening noted on CT and US. Unclear significance at this time. may be hepatic congestion. continue to monitor (5) Thrombocytopenia: PLAN: acute on chronic, unclear significance. monitor for now. (6) Elevated troponin: PLAN: Unclear type at this time. Troponins 108 to 111 to 114. May be skewed upwards given MICHELLE. on ASA, clopidogrel, PLAN: Plan BPH: tamsulosin BTE prophylaxis: anticoagulated with heparin. Charges/Coding Visit Charges Inpatient E&M: 69000 [facility] Hosp L3 02/05/25 1357 Cosigner Signature (if applicable): CC: ~ Signed [facility]06-25-2025 Consult note Author Ron Vegas [facility] Note Date/Time 2025 1:36 am [facility] Medical Records Department [address] [place] [address] Consultation - Stone Repairer 02/05/25 0121 MR#: [id number] Acct: [id number] Name: FLORIN VARGAS Rep #:[id number] : 1940 85 From: Ron Vegas MD PCP: Dr. Pedro Gonzalez MD Status:ADM IN Location: ICU ICU07-1 HPI Consult Data Date of Consult: 02/05/25 HPI Narrative Reason for Consultation: hypotension, ?sepsis, acute hypoxemic respiratory failure HPI Narrative: FLORIN VARGAS, is a 85 M who presents with CC of SOB. Per family, he has been having worsening/gradual [place] and SOB. Walks with a cane but also stops after <1 driveway distance 2/2 SOB. Denies swelling, but his OP cardiolgist has been titrating medications related to his BP. Denies sick contacts, dysuria and cough. No wheezing. LAst ECHO showing EF 30%. He was placed on NIPPV in ED for his ARF, but in ICU, he has since been weaned to room air. Lasix drip has yielded ~600cc uop already. He feels better. [facility] Medical History GI treated with BiPAP Valvular heart disease HTN (hypertension) CAD (coronary artery disease) HFrEF (heart failure with reduced ejection fraction) Daytime hypersomnolence Nonrheumatic aortic (valve) stenosis Hyperlipidemia Atherosclerotic heart disease of [place] coronary artery without angina pectoris Atherosclerosis of coronary artery bypass graft without angina pectoris (~03/29/22) Home Medications ?Medication ?Instructions ?Recorded ?Last Taken ?Type vitamin E 200 unit capsule 200 unit PO DAILY 09/14/20 Unknown History aspirin 81 mg chewable tablet 81 mg PO Q OTHER DAY 03/29/22 History tamsulosin 0.4 mg capsule (Flomax) 0.4 mg PO QHS #30 c aps 01/27/22 Unknown Rx lisinopril 5 mg tablet 2.5 mg PO DAILY 07/14/23 Unk nown History clopidogrel 75 mg tablet 75 mg PO Q OTHER DAY #45 tab s 11/12/24 Unknown Rx dapagliflozin propanediol 10 mg 10 mg PO heart 5 Unknown History tablet dapagliflozin propanediol 10 mg 10 mg PO DAILY heart 0 02/05/25 Unknown History tablet (Farxiga) furosemide 40 mg tablet 80 mg PO QDAY 02/05/25 Unkno wn History Allergy/AdvReac Type Severity Reaction Status Date / Time No Known Allergies Allergy Verified 02/04/25 18:00 Family History Father Myocardial infarction CVA (cerebral vascular accident) Mother CHF (congestive heart failure) Brother CAD (coronary artery disease) Cancer leukemia Surgical History Presence of coronary artery bypass graft stent (~03/29/22) History of arthroplasty of knee H/O coronary artery bypass surgery (~01/2002) History of left inguinal hernia repair (~1961) Presence of stent in coronary artery Postsurgical percutaneous transluminal coronary angioplasty (PTCA) status History of aortic valve replacement with bioprosthetic valve (~12/27/17) Social History adopted: No household members: spouse housing: house number of children: 6 current occupational status: employed current occupation: [employer] current occupational exposures/hazards: No pets and [...] safe at home: Yes ROS ROS Narrative 12 or more systems reviewed and are negative except for abdominal fullness Objective Data Objective Data Vital Signs: Vital Signs Last response 3 Temperature 36.3 C L 02/04/25 23:21 Temperature Source Axillary 02/04/25 23:21 Pulse Rate 78 02/04/25 23:21 Respiratory Rate 18 02/04/25 23:21 Respiratory Effort Normal, Non-Labored 02/04/25 18:04 Respiratory Pattern Tachypnea 02/04/25 21:43 Blood Pressure 103/68 02/04/25 23:21 Blood Pressure Mean 79 02/04/25 23:21 Pulse Ox 98 02/04/25 23:21 Oxygen Delivery Method Bi-pap 02/04/25 23:21 Oxygen Flow Rate (L/min) 2 02/04/25 21:00 Fraction of Inspired Oxygen (FIO2) 28 02/04/25 21:43 I&O: I&O Last 24 Hours 3 02/04/25 02/04/25 02/05/25 11:59 23:59 11:59 Intake Total 2500 / 2500 0.2 / 0.2 Balance 2500 / 2500 0.2 / 0.2 I&O: Total Stay 3 02/04/25 17:55 thru 02/05/25 01:15 Intake Total 2500.2 Balance 2500.2 Current Meds Ordered / Administered: Current meds ordered / Administered 3 Generic Name Dose Route Start Last Admin Trade Name Freq PRN Reason Stop Dose Admin Acetaminophen 650 mg 02/05/25 00:02 Acetaminophen 325 Mg Tablet PO Q4H PRN PRN Fever, pain 1-10 Al Hydroxide/Mg Hydroxide 30 ml 02/05/25 00:02 Mag Hydrox/Al Hydrox/Simeth 30 Ml Udc PO Q6H PRN PRN Gastric Burning Albuterol Sulfate 2.5 mg 02/05/25 00:02 Albuterol 2.5 Mg/3 Ml Vial.Neb. INHALATION Q2H PRN PRN Dyspnea, wheezing Aspirin 81 mg 02/06/25 08:00 Aspirin 81 Mg Tab.Chew PO QODAY@0800 MENA Clopidogrel Bisulfate 75 mg 02/06/25 10:00 Clopidogrel Bisulfate 75 Mg Tablet PO QODAY [facility] Guaifenesin 20 ml 02/05/25 00:02 Guaifenesin 10 Ml Udc (200mg/10ml) PO Q4H PRN PRN COUGH Heparin Sodium (Porcine) 0 unit 02/05/25 00:20 Heparin Injection (Vial) 5,000 Unit/Ml Vial IV UD PRN dose adjustment Protocol Hydralazine HCl 10 mg 02/05/25 00:02 Hydralazine 20 Mg/Ml Vial IV Q4H PRN PRN SBP > 160 Protocol Piperacillin Sod/Tazobactam 50 mls @ 12.5 mls/hr 02/05/25 00:02 02/05/25 01:01 Sod 3.375 gm/ Sodium Chloride IV 12.5 mls/hr Q8 MENA Administration Pantoprazole Sodium 40 mg/ 100 mls @ 330 mls/hr 02/05/25 00:02 02/05/25 01:01 Sodium Chloride IV 330 mls/hr Q12 MENA Administration Furosemide 500 mg/ N/A 50 mls @ 1 mls/hr 02/05/25 00:02 02/05/25 01:15 CONT INF 0 mg/hr .Q50H MENA 0 mls/hr Infusion 10 MG/HR Heparin Sodium/Dextrose 25,000 units in 250 mls @ 10 mls/hr 02/05/25 00:02 CONT INF .Q25H [facility] Protocol As Directed Sodium Chloride 250 mls @ 15 mls/hr 02/05/25 00:28 IV .[id number] PRN Saline Flush Sodium Chloride 250 mls @ 15 mls/hr 02/05/25 00:28 IV .[id number] PRN Additional IVPB Infusion Norepinephrine Bitartrate 8 mg 250 mls @ 9.375 mls/hr 02/05/25 01:10 / Sodium Chloride CONT INF .[id number] [facility] Protocol 5 MCG/MIN Melatonin 3 mg 02/05/25 00:02 Melatonin 3 Mg Tablet PO QHS PRN PRN INSOMNIA Nitroglycerin 0.4 mg 02/05/25 00:02 Nitroglycerin (Inpatient Use) 0.4 Mg Tab.Subl SL Q5M PRN CARDIAC/CHEST PAIN Ondansetron HCl 4 mg 02/05/25 00:02 Ondansetron 4 Mg/2 Ml Vial IV Q8H PRN PRN NAUSEA/VOMITING Prochlorperazine Edisylate 5 mg 02/05/25 00:02 Prochlorperazine 10 Mg/2 Ml Vial IV Q4H PRN PRN Breakthrough Nausea/Vomiting Senna/Docusate Sodium 2 tablet 02/05/25 00:02 Senna/Docusate Sodium 1 Tablet PO BID PRN PRN Constipation Sodium Chloride 10 - 40 ml 02/05/25 00:28 0.9% Saline Lock 10 Ml Syringe IV UD PRN SALINE FLUSH Tamsulosin HCl 0.4 mg 02/05/25 22:00 Tamsulosin Hcl 0.4 Mg Capsule PO QHS [facility] Physical Exam Const alert, oriented x3 and no apparent distress General Appearance: cooperative, well developed and frail HEENT normocephalic, head/scalp atraumatic and moist oral mucous membranes Throat: posterior oropharynx normal Eyes PERRL, EOMs intact bilaterally, conjunctivae normal and no scleral icterus Neck full ROM, no lymphadenopathy, supple and no JVD Lymph Lymphatic: no lymphadenopathy noted Chest inspection of chest normal Resp normal respiratory effort and no use of accessory muscles Effort and Inspection: able to speak in complete sentences Auscultation: rales Cardio regular rate and regular rhythm Cardio Narrative: frequent ectopy GI normal to inspection, nondistended, normoactive bowel sounds, soft to palpation and non-tender GI Narrative: Tympanic no CVA tenderness Extremity no clubbing, cyanosis or edema Skin no rashes or lesions noted Neuro oriented x3, CN's II-XII intact bilaterally, moves all extremities and no focal motor deficits Speech: speech normal Psych cooperative and affect normal Lab / Micro Data Attestation: I reviewed the patient's lab results. 02/04/25 18:30 02/04/25 17:57 Labs: Laboratory Results - last 24 hr 02/04/25 17:57: Sodium 125 L, Potassium 3.9, Chloride 92 L, Carbon Dioxide 18.4 L, Anion Gap 15, BUN 50 H, Creatinine 1.94 H, Estim Creat Clear Calc 28.98 L, Est GFR (MDRD) Non-Af 33 L, BUN/Creatinine Ratio 25.8 H, Glucose 131 H, Calcium 8.0, Magnesium 2.1, Total Bilirubin 0.66, AST 108 H, ALT 84 H, Alkaline Phosphatase 137 H, Troponin T High Sens 108 H*, [place] [address] H, Total Protein 5.9, Albumin 3.5, Globulin 2.4, Albumin/Globulin Ratio 1.5 02/04/25 18:30: WBC 5.7, RBC 3.63 L, Hgb 10.6 L, Hct 31.0 L, MCV 85.4, MCH 29.2,MCHC 34.2, RDW Std Deviation 43.8, RDW Coeff of Jenaro 13.9, Plt Count 82 L, MPV 11.4, Immature Gran % (Auto) 0.500, Neut % (Auto) 79.6 H, Lymph % (Auto) 12.3 L,[place] % (Auto) 7.4, Eos % (Auto) 0.0, Baso % (Auto) 0.2, Absolute Neuts (auto) 4.5, Absolute Lymphs (auto) 0.70 L, Nucleated RBC % 0, Differential Comment SCANNED, Platelet Estimate MOD DEC, PT 16.0 H, INR 1.3, APTT 32.2, Lactic Acid 1.3 02/04/25 18:58: Urine Color Yellow, Urine Clarity Sl. Cloudy, Urine pH 5.0, Ur Specific [place] 1.020, Urine Protein 30 H, Urine Glucose (UA) Normal, Urine Ketones Negative, Urine Occult Blood 50 H, Urine Nitrite Negative, Urine Bilirubin Negative, Urine Urobilinogen Normal, Ur Leukocyte Esterase Negative, Urine RBC 0-5 SEEN, Urine WBC 0 SEEN, Ur Squamous Epith Cells 0-5 SEEN, Ur RenalEpithelial Cell 0-5 SEEN, Amorphous Sediment 1+, Urine Bacteria 2+, Urine Mucus 0 SEEN 02/04/25 19:57: Troponin T Hi Sens 2 Hr 111 H* 02/04/25 21:56: Troponin T Hi Sens 4Hr 114 H*, Procalcitonin 1.39 H ABG Data ABG results: ABG 02/04/25 20:14 Specimen Type HEIDI Sample Site Not entered VBG pH 7.47 H VBG pO2 37 VBG HCO3 20 L VBG Total CO2 21 L VBG O2 Sat (Calc) 76 H VBG Base Excess -4 L POC Mix VBG pCO2 Pt Tmp 27.3 L O2 Delivery Device Room Air Rhythm Strip Rhythm Strip: Sinus Rhythm Rate: 100 Ectopy: PVC(s) Imaging Radiology Impression Chest X-Ray 02/04/25 19:02 IMPRESSION: Prominent interstitial markings with enlarged cardiomediastinal silhouette, as can be seen with cardiogenic pulmonary edema. Reading Location: [facility] Chest/Abdomen/Pelvis CT 02/04/25 20:37 IMPRESSION: 1. Trace pleural effusions, [id number]-qyhe-left. 2. Gallbladder wall thickening, without radiodense stones. This is a nonspecific finding and could be related to fluid overload. Consider ultrasound if patient has associated symptoms. 3. Abdominal aortic aneurysm measuring 4.5 cm. 4. Solid pulmonary nodule in the right middle lobe measuring 4 mm, consider CT chest in 12 months if patient is at high risk for malignancy per Fleischner society guidelines. Reading Location: [facility] Gallbladder Ultrasound 02/04/25 22:47 IMPRESSION: 1. Limited evaluation due to incomplete distention of the gallbladder. No radiodense stones are seen. There is mild wall thickening, similar to same day CT. 2. Findings suggestive of hepatic steatosis. Reading Location: [facility] CT C/A/P reviewed in person with family: trace edema and effusion in the bilateral bases, no major ascites. Significant distension of stomach and bowel loops, but no perforation evident/obvious. Assessment and Plan . 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 hypervolemia acute hypoxemic respiratory failure acute renal failure OSAS Plan: Stop lasix drip, convert to scheduled 40mg IV BID start norepinephrine for acute cardiorenal syndrome procal may be artificially elevate din the setting of MICHELLE, as would be the TI DC heparin drip empiric abx ok for now, but if WBC remains low can stop tomorrow CPAP 10cwp QHS for OSAS avoid BIPAP 2/2 risk of loop-gain mediated Suleman Amezcua respiration AICD consultation vs life vest given frequent ectopy if needed, can trial midodrine later Ron Vegas MD Critical Care Time: 80 min The entirety of this encounter was done via Telemedicine 02/05/25 0136 <Electronically signed by Ron Vegas MD> Cosigner Signature (if applicable): CC: Dr. Rea Cancino MD; Dr. Pedro Gonzalez MD~ Signed [facility] Work Phone: [phone]) 458-985406-25-2025 Consult note [facility] Medical Records Department [address] [place] [address] Consultation - Stone Repairer 02/05/25 0121 MR#: [id number] Acct: [id number] Name: FLORIN VARGAS Rep #:[id number] : 1940 85 From: Ron Vegas MD PCP: Dr. Pedro Gonzalez MD Status:ADM IN Location: ICU ICU07-1 HPI Consult Data Date of Consult: 02/05/25 HPI Narrative Reason for Consultation: hypotension, ?sepsis, acute hypoxemic respiratory failure HPI Narrative: FLORIN VARGAS, is a 85 M who presents with CC of SOB. Per family, he has been having worsening/gradual [place] and SOB. Walks with a cane but also stops after <1 driveway distance 2/2 SOB. Denies swelling, but his OP cardiolgist has been titrating medications related to his BP. Denies sick contacts, dysuria and cough. No wheezing. LAst ECHO showing EF 30%. He was placed on NIPPV in ED for his ARF, but in ICU, he has since been weaned to room air. Lasix drip has yielded ~600cc uop already. Hefeels better. [facility] Medical History GI treated with BiPAP Valvular heart disease HTN (hypertension) CAD (coronary artery disease) HFrEF (heart failure with reduced ejection fraction) Daytime hypersomnolence Nonrheumatic aortic (valve) stenosis Hyperlipidemia Atherosclerotic heart disease of [place] coronary artery without angina pectoris Atherosclerosis of coronary artery bypass graft without angina pectoris (~03/29/22) Home Medications ?Medication ?Instructions ?Recorded ?Last Taken ?Type vitamin E 200 unit capsule 200 unit PO DAILY 09/14/20 Unknown History aspirin 81 mg chewable tablet 81 mg PO Q OTHER DAY 03/29/22 History tamsulosin 0.4 mg capsule (Flomax) 0.4 mg PO QHS #30 c aps 01/27/22 Unknown Rx lisinopril 5 mg tablet 2.5 mg PO DAILY 07/14/23 Unk nown History clopidogrel 75 mg tablet 75 mg PO Q OTHER DAY #45 tab s 11/12/24 Unknown Rx dapagliflozin propanediol 10 mg 10 mg PO heart 5 Unknown History tablet dapagliflozin propanediol 10 mg 10 mg PO DAILY heart 0 02/05/25 Unknown History tablet (Farxiga) furosemide 40 mg tablet 80 mg PO QDAY 02/05/25 Unkno wn History Allergy/AdvReac Type Severity Reaction Status Date / Time No Known Allergies Allergy Verified 02/04/25 18:00 Family History Father Myocardial infarction CVA (cerebral vascular accident) Mother CHF (congestive heart failure) Brother CAD (coronary artery disease) Cancer leukemia Surgical History Presence of coronary artery bypass graft stent (~03/29/22) History of arthroplasty of knee H/O coronary artery bypass surgery (~01/2002) History of left inguinal hernia repair (~1961) Presence of stent in coronary artery Postsurgical percutaneous transluminal coronary angioplasty (PTCA) status History of aortic valve replacement with bioprosthetic valve (~12/27/17) Social History adopted: No household members: spouse [...] safe at home: Yes ROS ROS Narrative 12 or more systems reviewed and are negative except for abdominal fullness Objective Data Objective Data Vital Signs: Vital Signs Last response 3 Temperature 36.3 C L 02/04/25 23:21 Temperature Source Axillary 02/04/25 23:21 Pulse Rate 78 02/04/25 23:21 Respiratory Rate 18 02/04/25 23:21 Respiratory Effort Normal, Non-Labored 02/04/25 18:04 Respiratory Pattern Tachypnea 02/04/25 21:43 Blood Pressure 103/68 02/04/25 23:21 Blood Pressure Mean 79 02/04/25 23:21 Pulse Ox 98 02/04/25 23:21 Oxygen Delivery Method Bi-pap 02/04/25 23:21 Oxygen Flow Rate (L/min) 2 02/04/25 21:00 Fraction of Inspired Oxygen (FIO2) 28 02/04/25 21:43 I&O: I&O Last 24 Hours 3 02/04/25 02/04/25 02/05/25 11:59 23:59 11:59 Intake Total 2500 / 2500 0.2 / 0.2 Balance 2500 / 2500 0.2 / 0.2 I&O: Total Stay 3 02/04/25 17:55 thru 02/05/25 01:15 Intake Total 2500.2 Balance 2500.2 Current Meds Ordered / Administered: Current meds ordered / Administered 3 Generic Name Dose Route Start Last Admin Trade Name Freq PRN Reason Stop Dose Admin Acetaminophen 650 mg 02/05/25 00:02 Acetaminophen 325 Mg Tablet PO Q4H PRN PRN Fever, pain 1-1010 Al Hydroxide/Mg Hydroxide 30 ml 02/05/25 00:02 Mag Hydrox/Al Hydrox/Simeth 30 Ml Udc PO Q6H PRN PRN Gastric Burning Albuterol Sulfate 2.5 mg 02/05/25 00:02 Albuterol 2.5 Mg/3 Ml Vial.Neb. INHALATION Q2H PRN PRN Dyspnea, wheezing Aspirin 81 mg 02/06/25 08:00 Aspirin 81 Mg Tab.Chew PO QODAY@0800 MENA Clopidogrel Bisulfate 75 mg 02/06/25 10:00 Clopidogrel Bisulfate 75 Mg Tablet PO QODAY MENA Guaifenesin 20 ml 02/05/25 00:02 Guaifenesin 10 Ml Udc (200mg/10ml) PO Q4H PRN PRN COUGH Heparin Sodium (Porcine) 0 unit 02/05/25 00:20 Heparin Injection (Vial) 5,000 Unit/Ml Vial IV UD PRN dose adjustment Protocol Hydralazine HCl 10 mg 02/05/25 00:02 Hydralazine 20 Mg/Ml Vial IV Q4H PRN PRN SBP > 160 Protocol Piperacillin Sod/Tazobactam 50 mls @ 12.5 mls/hr 02/05/25 00:02 02/05/25 01:01 Sod 3.375 gm/ Sodium Chloride IV 12.5 mls/hr Q8 MENA Administration Pantoprazole Sodium 40 mg/ 100 mls @ 330 mls/hr 02/05/25 00:02 02/05/25 01:01 Sodium Chloride IV 330 mls/hr Q12 MENA Administration Furosemide 500 mg/ N/A 50 mls @ 1 mls/hr 02/05/25 00:02 02/05/25 01:15 CONT INF 0 mg/hr .Q50H MENA 0 mls/hr Infusion 10 MG/HR Heparin Sodium/Dextrose 25,000 units in 250 mls @ 10 mls/hr 02/05/25 00:02 CONT INF .Q25H [facility] Protocol As Directed Sodium Chloride 250 mls @ 15 mls/hr 02/05/25 00:28 IV .[id number] PRN Saline Flush Sodium Chloride 250 mls @ 15 mls/hr 02/05/25 00:28 IV .[id number] PRN Additional IVPB Infusion Norepinephrine Bitartrate 8 mg 250 mls @ 9.375 mls/hr 02/05/25 01:10 / Sodium Chloride CONT INF .[id number] [facility] Protocol 5 MCG/MIN Melatonin 3 mg 02/05/25 00:02 Melatonin 3 Mg Tablet PO QHS PRN PRN INSOMNIA Nitroglycerin 0.4 mg 02/05/25 00:02 Nitroglycerin (Inpatient Use) 0.4 Mg Tab.Subl SL Q5M PRN CARDIAC/CHEST PAIN Ondansetron HCl 4 mg 02/05/25 00:02 Ondansetron 4 Mg/2 Ml Vial IV Q8H PRN PRN NAUSEA/VOMITING Prochlorperazine Edisylate 5 mg 02/05/25 00:02 Prochlorperazine 10 Mg/2 Ml Vial IV Q4H PRN PRN Breakthrough Nausea/Vomiting Senna/Docusate Sodium 2 tablet 02/05/25 00:02 Senna/Docusate Sodium 1 Tablet PO BID PRN PRN Constipation Sodium Chloride 10 - 40 ml 02/05/25 00:28 0.9% Saline Lock 10 Ml Syringe IV UD PRN SALINE FLUSH Tamsulosin HCl 0.4 mg 02/05/25 22:00 Tamsulosin Hcl 0.4 Mg Capsule PO QHS [facility] Physical Exam Const alert, oriented x3 and no apparent distress General Appearance: cooperative, well developed and frail HEENT normocephalic, head/scalp atraumatic and moist oral mucous membranes Throat: posterior oropharynx normal Eyes PERRL, EOMs intact bilaterally, conjunctivae normal and no scleral icterus Neck full ROM, no lymphadenopathy, supple and no JVD Lymph Lymphatic: no lymphadenopathy noted Chest inspection of chest normal Resp normal respiratory effort and no use of accessory muscles Effort and Inspection: able to speak in complete sentences Auscultation: rales Cardio regular rate and regular rhythm Cardio Narrative: frequent ectopy GI normal to inspection, nondistended, normoactive bowel sounds, soft to palpation and non-tender GI Narrative: Tympanic no CVA tenderness Extremity no clubbing, cyanosis or edema Skin no rashes or lesions noted Neuro oriented x3, CN's II-XII intact bilaterally, moves all extremities and no focal motor deficits Speech: speech normal Psych cooperative and affect normal Lab / Micro Data Attestation: I reviewed the patient's lab results. 02/04/25 18:30 02/04/25 17:57 Labs: Laboratory Results - last 24 hr 02/04/25 17:57: Sodium 125 L, Potassium 3.9, Chloride 92 L, Carbon Dioxide 18.4 L, Anion Gap 15, BUN 50 H, Creatinine 1.94 H, Estim Creat Clear Calc 28.98 L, Est GFR (MDRD) Non-Af 33 L, BUN/Creatinine Ratio 25.8 H, Glucose 131 H, Calcium 8.0, Magnesium 2.1, Total Bilirubin 0.66, AST 108 H, ALT 84 H, Alkaline Phosphatase 137 H, Troponin T High Sens 108 H*, [place] [address] H, Total Protein 5.9,Albumin 3.5, Globulin 2.4, Albumin/Globulin Ratio 1.5 02/04/25 18:30: WBC 5.7, RBC 3.63 L, Hgb 10.6 L, Hct 31.0 L, MCV 85.4, MCH 29.2,MCHC 34.2, RDW Std Deviation 43.8, RDW Coeff of [place] 13.9, Plt Count 82 L, MPV 11.4, Immature Gran % (Auto) 0.500, Neut % (Auto) 79.6 H, Lymph % (Auto) 12.3 L,[place] % (Auto) 7.4, Eos % (Auto) 0.0, Baso % (Auto) 0.2, Absolute Neuts (auto) 4.5, Absolute Lymphs (auto) 0.70 L, Nucleated RBC % 0, Differential Comment SCANNED, Platelet Estimate MOD DEC, PT 16.0 H, INR 1.3, APTT 32.2, Lactic Acid 1.3 02/04/25 18:58: Urine Color Yellow, Urine Clarity Sl. Cloudy, Urine pH 5.0, Ur Specific [place] 1.020, Urine Protein 30 H, Urine Glucose (UA) Normal, Urine Ketones Negative, Urine Occult Blood 50 H, Urine Nitrite Negative, Urine Bilirubin Negative, Urine Urobilinogen Normal, Ur Leukocyte Esterase Negative, Urine RBC 0-5 SEEN, Urine WBC 0 SEEN, Ur Squamous Epith Cells 0-5 SEEN, Ur RenalEpithelial Cell 0-5 SEEN, Amorphous Sediment 1+, Urine Bacteria 2+, Urine Mucus 0 SEEN 02/04/25 19:57: Troponin T Hi Sens 2 Hr 111 H* 02/04/25 21:56: Troponin T Hi Sens 4Hr 114 H*, Procalcitonin 1.39 H ABG Data ABG results: ABG 02/04/25 20:14 Specimen Type HEIDI Sample Site Not entered VBG pH 7.47 H VBG pO2 37 VBG HCO3 20 L VBG Total CO2 21 L VBG O2 Sat (Calc) 76 H VBG Base Excess -4 L POC Mix VBG pCO2 Pt Tmp 27.3 L O2 Delivery Device Room Air Rhythm Strip Rhythm Strip: Sinus Rhythm Rate: 100 Ectopy: PVC(s) Imaging Radiology Impression Chest X-Ray 02/04/25 19:02 IMPRESSION: Prominent interstitial markings with enlarged cardiomediastinal silhouette, as can be seen with cardiogenic pulmonary edema. Reading Location: [facility] Chest/Abdomen/Pelvis CT 02/04/25 20:37 IMPRESSION: 1. Trace pleural effusions, jwfai-hefluia-dqip-left. 2. Gallbladder wall thickening, without radiodense stones. This is a nonspecific finding and could be related to fluid overload. Consider ultrasound if patient has associated symptoms. 3. Abdominal aortic aneurysm measuring 4.5 cm. 4. Solid pulmonary nodule in the right middle lobe measuring 4 mm, consider CT chest in 12 months if patient is at high risk for malignancy per Fleischner society guidelines. Reading Location: [id number] Gallbladder Ultrasound 02/04/25 22:47 IMPRESSION: 1. Limited evaluation due to incomplete distention of the gallbladder. No radiodense stones are seen. There is mild wall thickening, similar to same day CT. 2. Findings suggestive of hepatic steatosis. Reading Location: [facility] CT C/A/P reviewed in person with family: trace edema and effusion in the bilateral bases, no major ascites. Significant distension of stomach and bowel loops, but no perforation evident/obvious. Assessment and Plan . 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 hypervolemia acute hypoxemic respiratory failure acute renal failure OSAS Plan: Stop lasix drip, convert to scheduled 40mg IV BID start norepinephrine for acute cardiorenal syndrome procal may be artificially elevate din the setting of MICHELLE, as would be the TI DC heparin drip empiric abx ok for now, but if WBC remains low can stop tomorrow CPAP 10cwp QHS for OSAS avoid BIPAP 2/2 risk of loop-gain mediated Suleman Amezcua respiration AICD consultation vs life vest given frequent ectopy if needed, can trial midodrine later Ron Vegas MD Critical Care Time: 80 min The entirety of this encounter was done via Telemedicine 02/05/25 0136 Cosigner Signature (if applicable): CC: Dr. Rea Cancino MD; Dr. Pedro Gonzalez MD~ Signed [facility]06-25-2025 Discharge summary Author Maryanne [facility] Note Date/Time February 04, 2025 11:[address] [facility] Medical Records Department [address] [place] [address] Emergency Department Summary 02/04/25 MR#: [id number] Acct: [id number] Name: FLORIN VARGAS Rep #:[id number] : 1940 85 From: Maryanne Keys PCP: Dr. Pedro Gonzalez MD Status:ADM IN Location: ICU ICU07-1 HPI History of Present Illness Chief Complaint: General Illness Informant: patient Narrative Narrative: Patient is a 85-year-old presenting with worsening shortness of breath, cough and generalized malaise. Patient has a history of heart failure with reduced ejection fraction, CABG, hyperlipidemia and sleep apnea. States he has been feeling worse over the past 4 to 5 days but is been particularly bad over the past 2 days. Reports has been feeling lightheaded and short of breath. States cough is been productive of sputum. He has an appointment to see cardiology today they told him his lung sounds were clear. His blood pressure was low. Henotes he has not been eating or drinking as much. States he has been feeling constipated but denies any abdominal pain. Has been passing gas. Denies any black or blood in his stool. Denies any nausea or vomiting. Denies any rash. Denies any swelling of his legs. Patient's cardiology outpatient visit from today reviewed. Most recently evaluated at our hospital for CHF exacerbation in December 2024. At that time echocardiogram showed LVEF 35%. Was discharged on Lasix 20 mg p.o. daily. Was reporting dizziness. Blood pressure 86/49 with a pulse of 78 in the office today. 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 Was switch to Lasix 40 mg labs daily andlisinopril 2.5 mg daily today. [facility] Medical History GI treated with BiPAP Valvular heart disease HTN (hypertension) CAD (coronary artery disease) HFrEF (heart failure with reduced ejection fraction) Daytime hypersomnolence Nonrheumatic aortic (valve) stenosis Hyperlipidemia Atherosclerotic heart disease of [place] coronary artery without angina pectoris Atherosclerosis of coronary artery bypass graft without angina pectoris (~03/29/22) Home Medications ?Medication ?Instructions ?Recorded ?Last Taken ?Type vitamin E 200 unit capsule 200 unit PO DAILY 09/14/20 Unknown History aspirin 81 mg chewable tablet 81 mg PO Q OTHER DAY 03/29/22 History tamsulosin 0.4 mg capsule (Flomax) 0.4 mg PO QHS #30 c aps 01/27/22 Unknown Rx lisinopril 5 mg tablet 2.5 mg PO DAILY 07/14/23 Unk nown History clopidogrel 75 mg tablet 75 mg PO Q OTHER DAY #45 tab s 11/12/24 Unknown Rx furosemide 40 mg tablet 40 mg PO QDAY #90 TABLETS Unknown Rx Allergy/AdvReac Type Severity Reaction Status Date / Time No Known Allergies Allergy Verified 02/04/25 18:00 Family History Father Myocardial infarction CVA (cerebral vascular accident) Mother CHF (congestive heart failure) Brother CAD (coronary artery disease) Cancer leukemia Surgical History Presence of coronary artery bypass graft stent (~03/29/22) History of arthroplasty of knee H/O coronary artery bypass surgery (~01/2002) History of left inguinal hernia repair (~1961) Presence of stent in coronary artery Postsurgical percutaneous transluminal coronary angioplasty (PTCA) status History of aortic valve replacement with bioprosthetic valve (~12/27/17) Social History adopted: No household members: spouse housing: house number of children: 6 current occupational status: employed current occupation: [employer] current occupational exposures/hazards: No pets and [...] safe at home: Yes ROS ROS ED Constitutional Constitutional ED: Reports fever(s) and other Details: Lightheaded ; Denies chills Eyes Eyes: Denies change in vision ENT ENT ED: Denies rhinorrhea or sore throat Cardiovascular Cardiovascular: Denies chest pain, palpitations or racing heartbeat Respiratory/Chest Respiratory/Chest: Reports cough, dyspnea, dyspnea on exertion and sputum Gastrointestinal Gastrointestinal: Reports abdominal pain and constipation; Denies nausea or vomiting Musculoskeletal Musculoskeletal: Denies arthralgias or myalgias Integumentary Denies rash Neurologic Neurologic: Reports weakness EXAM Physical Exam Const Vital Signs: 02/04/25 17:56 02/04/25 17:58 02/04/25 18:04 Temperature 100.5 F H 100.5 F H Temperature Source Oral Oral Pulse Rate 98 97 Respiratory Rate 21 H 21 H Respiratory Effort Normal Non-Labored Respiratory Pattern Tachypnea Blood Pressure 94/63 94/63 Blood Pressure Mean 73 73 Pulse Ox 93 89 Oxygen Delivery Method Room Air Room Air Oxygen Flow Rate (L/min) Fraction of Inspired Oxygen (FIO2) 02/04/25 18:21 02/04/25 18:46 02/04/25 18:59 Temperature 100.2 F H Temperature Source Oral Pulse Rate 94 92 Respiratory Rate 26 H 23 H Respiratory Effort Respiratory Pattern Blood Pressure 97/69 97/69 Blood Pressure Mean 78 78 Pulse Ox 95 93 96 Oxygen Delivery Method Room Air Room Air Room Air Oxygen Flow Rate (L/min) Fraction of Inspired Oxygen (FIO2) 02/04/25 20:00 02/04/25 20:13 02/04/25 21:00 Temperature 99.5 F H 99.5 F H Temperature Source Oral Oral Pulse Rate 89 88 Respiratory Rate 18 20 H Respiratory Effort Respiratory Pattern Blood Pressure 92/59 L 83/68 L Blood Pressure Mean 70 73 Pulse Ox 98 98 97 Oxygen Delivery Method Nasal Cannula Nasal Cannula Nasal Cannula Oxygen Flow Rate (L/min) 2 2 2 Fraction of Inspired Oxygen (FIO2) 02/04/25 21:43 02/04/25 21:43 02/04/25 22:00 Temperature 99.5 F H Temperature Source Oral Pulse Rate 82 79 Respiratory Rate 23 H 20 H Respiratory Effort Respiratory Pattern Tachypnea Blood Pressure 98/71 Blood Pressure Mean 80 Pulse Ox 98 98 98 Oxygen Delivery Method Bi-pap Bi-pap Oxygen Flow Rate (L/min) Fraction of Inspired Oxygen (FIO2) 28 28 02/04/25 22:48 02/04/25 23:00 Temperature 99.5 F H 99.5 F H Temperature Source Oral Pulse Rate 70 75 Respiratory Rate 20 H 18 Respiratory Effort Respiratory Pattern Blood Pressure 89/65 L 82/61 L Blood Pressure Mean 73 68 Pulse Ox 98 100 Oxygen Delivery Method Bi-pap Oxygen Flow Rate (L/min) Fraction of Inspired Oxygen (FIO2) Positive well nourished and well developed Constitutional Narrative: Mildly ill-appearing General Appearance ED: well developed HEENT Reports dry mucous membranes Mouth ED: Yes dry mucous membranes Mouth: dry mucous membranes Eyes PERRL Neck supple Neck Narrative: Positive JVD Chest Wall inspection of chest normal and palpation of chest normal Resp Resp Narrative: Tachypneic. Diminished breath sounds at the bases. No crackles appreciated. Cardio regular rate and regular rhythm GI non-tender and no masses GI Narrative: Mildly distended abdomen. No tympany. Auscultation: hypoactive bowel sounds Palpation: soft; Negative for tender or guarding Extremity normal to inspection General Extremety ED: Negative for edema General Extremity: Negative for edema Neuro Sensorium / Orientation: alert Motor Exam: general weakness Psych mental status grossly normal Skin no rashes or lesions noted and no wounds MDM MDM MDM Narrative Medical decision making narrative: Patient evaluated for worsening shortness of breath and dyspnea on exertion. Has been feeling lightheaded. Upon arrival patient does have soft blood pressure and is febrile. Differential includes sepsis, pneumonia, symptomatic anemia, MICHELLE, ACS, CHF exacerbation, urinary tract infection. He is not having chest pain so lower suspicion for ACS. EKG does not show any acute ischemic changes however he does have significant ectopy. CBC shows normal white blood cell count of 5.7. He has a mild anemia the hemoglobin of 10.6 but this appears to be stable. CMP shows a mild transaminitis, hyponatremia the sodium of 125, hypochloremia with a level of 92,bicarb of 18. BUN chronically elevated at 50 but creatinine is worsening at nowat 1.94 (was 1.56 a month ago). High-sensitivity troponin initially 108 and on repeat is 111. His proBNP is significantly elevated 28,079 which is significantly elevated compared to2 months ago when it was around 8000. Urinalysis shows 2+ bacteria but otherwise is not consistent with infection. There is no leukocytosis or nitrates. VBG was added on as patient does have underlying sleep apnea and is intermittently falling asleep. This actually shows mixed respiratory and metabolic alkalosis. Patient's blood pressure becomes more hypotensive. He is given Tylenol and 2 L of IV fluid. He has improvement of his blood pressure however his workup is more consistent with a cardiac cause and not infectious. Is started on a Lasix drip as I do not think his blood pressure will tolerate Lasix bolus. While patient's troponin is elevated it is the remaining table. I do not think this is primary ACS especially as he is not of chest pain his EKG does not show acute ischemia. Suspect this is more type II associated with strain from CHF exacerbation. Is put on BiPAP as he would normally wear this at night for his comfort. Patient started to complain of some increased abdominal discomfort but attributes it more to have been constipation taking a laxative. Given unclear cause of his fever upon arrival a CT of the chest, abdomen pelvis that contrast (due to acute on chronic kidney injury) is obtained. CT imaging shows findings most consistent with CHF in the lungs and a distended gallbladder that could be thickens however this also could be due to fluid overload. He is not tender in this area. Case discussed with hospitalist the patient remitted to the ICU given his soft blood pressures. Family states that he is DNR CCA and would not want intubationnor pressors. I was given a dose of Zosyn empirically by hospitalist. Lab Data Attestation: I reviewed the patient's lab results. Labs: Laboratory Results - last 24 hr 02/04/25 02/04/25 02/04/25 17:57 18:30 18:58 WBC 5.7 RBC 3.63 L Hgb 10.6 L Hct 31.0 L MCV 85.4 MCH 29.2 MCHC 34.2 RDW Std Deviation 43.8 RDW Coeff of [place] 13.9 Plt Count 82 L MPV 11.4 Immature Gran % (Auto) 0.500 Neut % (Auto) 79.6 H Lymph % (Auto) 12.3 L [place] % (Auto) 7.4 Eos % (Auto) 0.0 Baso % (Auto) 0.2 Absolute Neuts (auto) 4.5 Absolute Lymphs (auto) 0.70 L Nucleated RBC % 0 Differential Comment SCANNED Platelet Estimate MOD DEC PT 16.0 H INR 1.3 APTT 32.2 Sodium 125 L Potassium 3.9 Chloride 92 L Carbon Dioxide 18.4 L Anion Gap 15 BUN 50 H Creatinine 1.94 H Estim Creat Clear Calc 28.98 L Est GFR (MDRD) Non-Af 33 L BUN/Creatinine Ratio 25.8 H Glucose 131 H Lactic Acid 1.3 Calcium 8.0 Magnesium 2.1 Total Bilirubin 0.66 AST 108 H ALT 84 H Alkaline Phosphatase 137 H Troponin T High Sens 108 H* Troponin T Hi Sens 2 Hr Troponin [place] 4[place] [address] H Total Protein 5.9 Albumin 3.5 Globulin 2.4 Albumin/Globulin Ratio 1.5 Urine Color Yellow Urine Clarity Sl. Cloudy Urine pH 5.0 Ur Specific [place] 1.020 Urine Protein 30 H Urine Glucose (UA) Normal Urine Ketones Negative Urine Occult Blood 50 H Urine Nitrite Negative Urine Bilirubin Negative Urine Urobilinogen Normal Ur Leukocyte Esterase Negative Urine RBC 0-5 SEEN Urine WBC 0 SEEN Ur Squamous Epith Cells 0-5 SEEN Ur Renal Epithelial Cell 0-5 SEEN Amorphous Sediment 1+ Urine Bacteria 2+ Urine Mucus 0 SEEN 02/04/25 02/04/25 19:57 21:56 WBC RBC Hgb Hct MCV MCH MCHC RDW Std Deviation RDW Coeff of [place] Plt Count MPV Immature Gran % (Auto) Neut % (Auto) Lymph % (Auto) [place] % (Auto) Eos % (Auto) Baso % (Auto) Absolute Neuts (auto) Absolute Lymphs (auto) Nucleated RBC % Differential Comment Platelet Estimate PT INR APTT Sodium Potassium Chloride Carbon Dioxide Anion Gap BUN Creatinine Estim Creat Clear Calc Est GFR (MDRD) Non-Af BUN/Creatinine Ratio Glucose Lactic Acid Calcium Magnesium Total Bilirubin AST ALT Alkaline Phosphatase Troponin T High Sens Troponin T Hi Sens 2 Hr 111 H* Troponin T Hi Sens 4Hr 114 H* NT pro BNP II Total Protein Albumin Globulin Albumin/Globulin Ratio Urine Color Urine Clarity Urine pH Ur Specific [place] Urine Protein Urine Glucose (UA) Urine Ketones Urine Occult Blood Urine Nitrite Urine Bilirubin Urine Urobilinogen Ur Leukocyte Esterase Urine RBC Urine WBC Ur Squamous Epith Cells Ur Renal Epithelial Cell Amorphous Sediment Urine Bacteria Urine Mucus ABG Data ABG results: ABG 02/04/25 20:14 Specimen Type HEIDI Sample Site Not entered VBG pH 7.47 H VBG pO2 37 VBG HCO3 20 L VBG Total CO2 21 L VBG O2 Sat (Calc) 76 H VBG Base Excess -4 L POC Mix VBG pCO2 Pt Tmp 27.3 L O2 Delivery Device Room Air Radiography Chest X-Ray - ED: 1 View, Read by ED Physician, Read by Radiologist and CHF Diagnostic Testing: Clinical Impression(s) from Imaging Studies Chest X-Ray 02/04/25 19:02 IMPRESSION: Prominent interstitial markings with enlarged cardiomediastinal silhouette, as can be seen with cardiogenic pulmonary edema. Reading Location: [facility] Chest/Abdomen/Pelvis CT 02/04/25 20:37 IMPRESSION: 1. Trace pleural effusions, erlqj-[id number]-[id number]-left. 2. Gallbladder wall thickening, without radiodense stones. This is a nonspecific finding and could be related to fluid overload. Consider ultrasound if patient has associated symptoms. 3. Abdominal aortic aneurysm measuring 4.5 cm. 4. Solid pulmonary nodule in the right middle lobe measuring 4 mm, consider CT chest in 12 months if patient is at high risk for malignancy per Fleischner society guidelines. Reading Location: [facility] Rhythm Strip Rhythm Strip: Sinus Rhythm Rate: 100 Ectopy: PVC(s) EKG Initial EKG: Attestation: I personally reviewed and interpreted this EKG as follows: Interpretation: Sinus Rhythm Comments: Normal sinus rhythm at 100 beats per minutes with first-degree AV block IL interval 230 Frequent PVCs presents as well as fusion complexes T wave inversion in aVL as well as V6 Compared to prior EKG patient now has frequent PVCs but no other acute changes Management Discussion w/another healthcare provider: Hospitalist Discharge Plan Triage Chief Complaint: General Illness ED Provider: Maryanne Emanuel Dx/Rx/DC Orders Clinical Impression: Dyspnea on exertion, Presence of coronary artery bypass graft stent, CHF exacerbation, Elevated troponin, Acute hyponatremia, Acute on chronic kidney failure, Fever, unknown origin, Multifocal PVCs Prescriptions: No Action vitamin E 200 unit capsule 200 unit PO DAILY lisinopril 5 mg tablet 2.5 mg PO DAILY furosemide 40 mg tablet 40 mg PO QDAY Qty: 90 3RF Patient Comments: per dr. orellana take BID if SOB aspirin 81 mg tablet,chewable 81 mg PO Q OTHER DAY tamsulosin [Flomax] 0.4 mg capsule 0.4 mg PO QHS Qty: 30 0RF clopidogrel 75 mg tablet 75 mg PO Q OTHER DAY Qty: 45 3RF Primary Care Provider: Pedro Gonzalez Referrals: Pedro Gonzalez MD [Primary Care Provider] - Print Language: Kazakh Disposition Disposition: Acute Care Hospital [facility] What to do if you have Problems For any increased pain, shortness of breath, bleeding, nausea or vomiting, chestpain, or any unexpected problems, contact your Primary Care Provider. Call [facility] ([phone]) or report to the closest Emergency Room. Call 911 if necessary. 02/04/252327 <Electronically signed by Maryanne Emanuel DO> Cosigner Signature (if applicable): CC: Dr. Pedro Gonzalez MD ~ Signed [facility] Work Phone: [phone] 520-635206-25-2025 History and physical note Author Rea Cancino [facility] Note Date/Time February 04, 2025 11:[address] [facility] Medical Records Department [address] [place] [address] H&P Exam - Hospitalist 02/04/252238 MR#: [id number] Acct: [id number] Name: TIANFLORIN E Rep #:[id number] : 1940 85 From: Rea Cancino MD PCP: Dr. Pedro Gonzalez MD Status:REG ER Location: ED HPI - General General Date of Admission: 02/04/25 Date of Service: 02/04/25 Chief Complaint: Dyspnea, fatigue, malaise, cough. HPI Narrative The patient is an 85 y/o M w/ PMHx: Chronic anemia, CKD stage III unclear subtype, Chronic Thrombocytopenia, Valvular Heart Disease, CAD s/p PCI and CABG,HTN, HLD, AAA, BPH with obstructive pathology, HFrEF, GI on BiPAP nightly who presents to the [facility] on 02/04/2025 with history of progressively worsening dyspnea starting on with increased fatigue and malaise, productive cough however he is felt worse over the last 48 hours with mild lightheadedness and worsening dyspnea especially with any exertion with evaluation by cardiologyservice on day of presentation with no concerning pulmonary sounds however he did have a low blood pressure at that time and did reveal that he had not been eating or drinking much and had recently complained of constipation although he did report positive flatus with no nausea or emesis with plan for change to diuretics but given his worsening status prompted ED evaluation to be cautious.Workup in the ED included T1 100.5, heart rate 98, BP 94/63, respiratory rate 21, initially 93% on room air however desaturated down to 89% with repeat vitals T99.5 Oral, heart rate 88, BP 83/68, respiratory rate 20, 97%on 2 L nasal cannula eventually transition to a BiPAP with most current vitals T99.5, heart rate 79, BP 90/71, respiratory rate 20, 98% on BiPAP, CBC with WBCsof 5.7, hemoglobin 10.6, MCV 85.4, platelet 82 with lymphopenia, coags with PT 16 otherwise not marked appearing, VBG with pH 7.47, PO237, bicarb 20, total CO221, O2 saturation 76%, CMP with sodium 125, chloride 92, carbon oxide 18.4, BUN/[place] 50/1.94, GFR 33, glucose 131, lactic acid 1.3, magnesium 2.1, AST/QVB257/84, alk phos 137, T. bili 0.66, initial troponin 108 with repeat delta troponin 111, 4-hour troponin pending upon request evaluation of patient, NT proBNP 25179, urinalysis noted cloudy, protein 30, occult blood 50, no marked urine WBCs or RBCs, negative nitrite, negative leukocyte esterase with 2+ bacteria but again no strong appearance of UTI, chest x-ray with prominent interstitial markings with enlarged cardiomediastinal silhouette concerning for cardiogenic pulmonary edema, CT chest/abdomen/pelvis with trace pleural effusions right greater than left, gallbladder wall thickening without any radiodense stones noted immediately nonspecific, abdominal aortic aneurysm measuring 4.5 cm, solid pulmonary nodule in the right middle lobe measuring 4 mm. Blood culture x 2 pending per ED, urine culture pending per ED. In the ED patient ministered Tylenol 650 mg p.o. x 1 as well as initiated on a Lasix drip. Garcia catheter placed per ED. He was initially also given 1.5L NS secondary to concern for sepsis but his work-up further notable for overload thus D/C. [facility] Medical History GI treated with BiPAP Valvular heart disease HTN (hypertension) CAD (coronary artery disease) HFrEF (heart failure with reduced ejection fraction) Daytime hypersomnolence Nonrheumatic aortic (valve) stenosis Hyperlipidemia Atherosclerotic heart disease of [place] coronary artery without angina pectoris Atherosclerosis of coronary artery bypass graft without angina pectoris (~03/29/22) Home Medications ?Medication ?Instructions ?Recorded ?Last Taken ?Type vitamin E 200 unit capsule 200 unit PO DAILY 09/14/20 Unknown History aspirin 81 mg chewable tablet 81 mg PO Q OTHER DAY 03/29/22 History tamsulosin 0.4 mg capsule (Flomax) 0.4 mg PO QHS #30 c aps 01/27/22 Unknown Rx lisinopril 5 mg tablet 2.5 mg PO DAILY 07/14/23 Unk nown History clopidogrel 75 mg tablet 75 mg PO Q OTHER DAY #45 tab s 11/12/24 Unknown Rx furosemide 40 mg tablet 40 mg PO QDAY #90 TABLETS Unknown Rx Allergy/AdvReac Type Severity Reaction Status Date / Time No Known Allergies Allergy Verified 02/04/25 18:00 Family History Father Myocardial infarction CVA (cerebral vascular accident) Mother CHF (congestive heart failure) Brother CAD (coronary artery disease) Cancer leukemia Surgical History Presence of coronary artery bypass graft stent (~03/29/22) History of arthroplasty of knee H/O coronary artery bypass surgery (~01/2002) History of left inguinal hernia repair (~1961) Presence of stent in coronary artery Postsurgical percutaneous transluminal coronary angioplasty (PTCA) status History of aortic valve replacement with bioprosthetic valve (~12/27/17) Social History adopted: No household members: spouse housing: house number of children: 6 current occupational status: employed current occupation: [employer] current occupational exposures/hazards: No pets and [...] safe at home: Yes ROS ROS Narrative Admission Review of Systems: CONSTITUTIONAL: No weight loss, fever, chills, + weakness or fatigue. In the EDpatient noted to be febrile although he denied previous history but did not beenchecking his temperature. HEENT: Eyes: No visual loss, blurred vision, double vision or yellow sclerae. Ears, Nose, Throat: No hearing loss, sneezing, congestion, runny nose or sore throat. SKIN: No rash or itching, lesions, wounds. CARDIOVASCULAR: + Increased edema, orthopnea. No chest pain, chest pressure or chest discomfort, palpitations, syncopal events. RESPIRATORY: + Dyspnea, worse with exertion, productive cough. Occasional wheezing. No hemoptysis. GASTROINTESTINAL: + Lack of appetite, constipation. No nausea, vomiting, diarrhea, abdominal pain, melena, BRBPR. GENITOURINARY: + BPH with chronic obstructive pathology. No dysuria, frequency,urgency. NEUROLOGICAL: No headache, dizziness, syncope, paralysis, ataxia, numbness or tingling in the extremities, focal weakness, change in bowel or bladder control,seizure. MUSCULOSKELETAL: + muscle, back pain, joint pain or stiffness. HEMATOLOGIC: + Chronic anemia, easy bleeding/bruising. LYMPHATICS: No enlarged nodes. No history of splenectomy. PSYCHIATRIC: No history of depression or anxiety. ENDOCRINOLOGIC: No reports of sweating, cold or heat intolerance. No polyuria orpolydipsia. ALLERGIES: No history of asthma, hives, eczema or rhinitis. Vital Signs Vital Signs Vital Signs: 02/04/25 17:56 02/04/25 17:58 02/04/25 18:04 Temperature 100.5 F H 100.5 F H Temperature Source Oral Oral Pulse Rate 98 97 Respiratory Rate 21 H 21 H Respiratory Effort Normal Non-Labored Respiratory Pattern Tachypnea Blood Pressure 94/63 94/63 Blood Pressure Mean 73 73 Pulse Ox 93 89 Oxygen Delivery Method Room Air Room Air Oxygen Flow Rate (L/min) Fraction of Inspired Oxygen (FIO2) 02/04/25 18:21 02/04/25 18:46 02/04/25 18:59 Temperature 100.2 F H Temperature Source Oral Pulse Rate 94 92 Respiratory Rate 26 H 23 H Respiratory Effort Respiratory Pattern Blood Pressure 97/69 97/69 Blood Pressure Mean 78 78 Pulse Ox 95 93 96 Oxygen Delivery Method Room Air Room Air Room Air Oxygen Flow Rate (L/min) Fraction of Inspired Oxygen (FIO2) 02/04/25 20:00 02/04/25 20:13 02/04/25 21:00 Temperature 99.5 F H 99.5 F H Temperature Source Oral Oral Pulse Rate 89 88 Respiratory Rate 18 20 H Respiratory Effort Respiratory Pattern Blood Pressure 92/59 L 83/68 L Blood Pressure Mean 70 73 Pulse Ox 98 98 97 Oxygen Delivery Method Nasal Cannula Nasal Cannula Nasal Cannula Oxygen Flow Rate (L/min) 2 2 2 Fraction of Inspired Oxygen (FIO2) 02/04/25 21:43 02/04/25 21:43 02/04/25 22:00 Temperature 99.5 F H Temperature Source Oral Pulse Rate 82 79 Respiratory Rate 23 H 20 H Respiratory Effort Respiratory Pattern Tachypnea Blood Pressure 98/71 Blood Pressure Mean 80 Pulse Ox 98 98 98 Oxygen Delivery Method Bi-pap Bi-pap Oxygen Flow Rate (L/min) Fraction of Inspired Oxygen (FIO2) 28 28 Weight Weight: 194 lb 10.691 oz Body Mass Index (BMI) 31.4 Physical Exam Narrative Physical Examination: General: Patient awake, alert, oriented to self and recent events, on the BiPAP,fatigued, currently respiratory status improved on BiPAP but blood pressure on monitor noted to be continuing to drop although on Lasix drip. Skin: Normal color, normal turgor, no icterus, no cyanosis except occasional stage ecchymoses, abrasions. HEENT: AT/NC, EOMI, PERRLA, mildly dry MM, BiPAP in place, unable to discern carotid bruit given referred sounds, unable to discern JVD given very thick mcgrath. Lungs: Significantly diminished, distant breath sounds, Rales at the bases, mildly increased respiratory rate but no distress currently is on BiPAP, improved status since initial ED arrival. Heart: Regular rate and rhythm; no gallop, rub audible, + SM. Abdomen: Soft, obese, NTTP, even the right upper quadrant and epigastric region,distant BS, difficult to discern distention HSM given habitus. Extremities: No cyanosis, no clubbing, mild pedal to distal trevizo edema. Neurological: Patient awake, alert, oriented as noted, cognitive function mildlydecreased given increased fatigue, on BiPAP as noted, pupils equally reactive tolight and accommodation, cranial nerves grossly normal, moving all 4 extremities, no focal deficits, strength severely globally decreased secondary to acute presentation. Psychiatric: Affect appears flat, fatigued, no acute evidence of depressive or anxiety feelings. Results Lab / Micro Data 02/04/25 18:30 02/04/25 17:57 Labs: Laboratory Results - last 24 hr 02/04/25 17:57: Sodium 125 L, Potassium 3.9, Chloride 92 L, Carbon Dioxide 18.4 L, Anion Gap 15, BUN 50 H, Creatinine 1.94 H, Estim Creat Clear Calc 28.98 L, Est GFR (MDRD) Non-Af 33 L, BUN/Creatinine Ratio 25.8 H, Glucose 131 H, Calcium 8.0, Magnesium 2.1, Total Bilirubin 0.66, AST 108 H, ALT 84 H, Alkaline Phosphatase 137 H, Troponin T High Sens 108 H*, [place] [address] H, Total Protein 5.9, Albumin 3.5, Globulin 2.4, Albumin/Globulin Ratio 1.5 02/04/25 18:30: WBC 5.7, RBC 3.63 L, Hgb 10.6 L, Hct 31.0 L, MCV 85.4, MCH 29.2,MCHC 34.2, RDW Std Deviation 43.8, RDW Coeff of Jenaro 13.9, Plt Count 82 L, MPV 11.4, Immature Gran % (Auto) 0.500, Neut % (Auto) 79.6 H, Lymph % (Auto) 12.3 L,[place] % (Auto) 7.4, Eos % (Auto) 0.0, Baso % (Auto) 0.2, Absolute Neuts (auto) 4.5, Absolute Lymphs (auto) 0.70 L, Nucleated RBC % 0, Differential Comment SCANNED, Platelet Estimate MOD DEC, PT 16.0 H, INR 1.3, APTT 32.2, Lactic Acid 1.3 02/04/25 18:58: Urine Color Yellow, Urine Clarity Sl. Cloudy, Urine pH 5.0, Ur Specific [place] 1.020, Urine Protein 30 H, Urine Glucose (UA) Normal, Urine Ketones Negative, Urine Occult Blood 50 H, Urine Nitrite Negative, Urine Bilirubin Negative, Urine Urobilinogen Normal, Ur Leukocyte Esterase Negative, Urine RBC 0-5 SEEN, Urine WBC 0 SEEN, Ur Squamous Epith Cells 0-5 SEEN, Ur RenalEpithelial Cell 0-5 SEEN, Amorphous Sediment 1+, Urine Bacteria 2+, Urine Mucus 0 SEEN 02/04/25 19:57: Troponin T Hi Sens 2 Hr 111 H* 02/04/25 21:56: Troponin T Hi Sens 4Hr 114 H* ABG Data ABG results: ABG 02/04/25 20:14 Specimen Type HEIDI Sample Site Not entered VBG pH 7.47 H VBG pO2 37 VBG HCO3 20 L VBG Total CO2 21 L VBG O2 Sat (Calc) 76 H VBG Base Excess -4 L POC Mix VBG pCO2 Pt Tmp 27.3 L O2 Delivery Device Room Air Imaging Radiology Impression Chest X-Ray 02/04/25 19:02 IMPRESSION: Prominent interstitial markings with enlarged cardiomediastinal silhouette, as can be seen with cardiogenic pulmonary edema. Reading Location: [id number] Chest/Abdomen/Pelvis CT 02/04/25 20:37 IMPRESSION: 1. Trace pleural effusions, [id number]-left. 2. Gallbladder wall thickening, without radiodense stones. This is a nonspecific finding and could be related to fluid overload. Consider ultrasound if patient has associated symptoms. 3. Abdominal aortic aneurysm measuring 4.5 cm. 4. Solid pulmonary nodule in the right middle lobe measuring 4 mm, consider CT chest in 12 months if patient is at high risk for malignancy per Fleischner society guidelines. Reading Location: [id number] Assessment & Plan Assessment/Plan (1) CHF exacerbation: PLAN: Plan The patient is an 85 y/o M w/ PMHx: Chronic anemia, CKD stage III unclear subtype, Chronic Thrombocytopenia, Valvular Heart Disease, CAD s/p PCI and CABG,HTN, HLD, AAA, BPH with obstructive pathology, HFrEF, GI on BiPAP nightly who presents to the [facility] on 02/04/[facility]25 with history of progressively worsening dyspnea starting on with increased fatigue and malaise, productive cough however he is felt worse over the last 48 hours with mild lightheadedness and worsening dyspnea especially with any exertion with evaluation by cardiologyservice on day of presentation with no concerning pulmonary sounds however he did have a low blood pressure at that time and did reveal that he had not been eating or drinking much and had recently complained of constipation although he did report positive flatus with no nausea or emesis with plan for change to diuretics but given his worsening status prompted ED evaluation to be cautious. #1. Acute hypoxic respiratory failure, multifactorial, secondary to acutely decompensated HFrEF complicated by elevated cardiac troponin, consistent with type II NSTEMI suspected likely demand but uncertain complicated by #2, #3: Willadmit to the ICU given MAP upon ED evaluation has noted to be dropping, will request ICU physician consultation as well as Cardiology consultation, will continue BiPAP placement, maintain on cardiac telemetry, continue to obtain cardiac enzyme series, obtain serial EKGs as needed, unfortunately with hypotension diuresis is difficult but will diurese as able, will monitor I/Os, maintain on intake restriction, continue medical therapy, obtain TSH, normal magnesium level per ED. Most recent ECHO as noted 12/12/2024 however given presentation with significant enzyme elevation we will request repeat echocardiogram to be cautious. #2. Possible Acute Viral Syndrome (recent fever, cough, fatigue, general malaise: Patient with only pulmonary complaints, no marked abdominal complaints given #3, to be cautious as noted will maintain on BiPAP, wean as tolerated to room air although does use BiPAP nightly, will have as needed albuterol, will maintain on IV Zosyn pending evaluation for gallbladder assessment however transaminitis likely related with his volume overload but to be cautious we willcontinue until able to de-escalate, encourage head of bed, I-S, requested new sputum culture, will obtain full respiratory viral panel. Procalcitonin requested. UCX, blood culture x 2 pending per ED. #3. Mild transaminitis with questionably thickened GB: Lower suspicion for GB etiology. Admission CBC with WBC 5.7 with no marked left shift however patient is febrile, CMP with AST/LT 108/84, CT chest/abdomen/pelvis with gallbladder wall thickening measuring approximately 5 mm however no evidence of any radiodense stones, to be cautious will obtain gallbladder ultrasound, maintain on IV zosyn, allow clears only, maintain on IV PPI. #4. Abdominal aortic aneurysm: CT noting an abdominal aortic aneurysm measuring4.5 cm, noted CTA of the chest and abdomen 11/03/2017 with [facility] with a noted infrarenal abdominal aortic aneurysm 3.4 x 3.2 cm, encourage continued outpatient follow-up and evaluation as likely there has been more imaging in between. #5. Incidentally noted pulmonary nodule: Patient with CT scan notable for a solid pulmonary nodule in the right middle lobe measuring 4 mm, encourage continued outpatient follow-up CT imaging with PCP. #6. Chronic normocytic anemia: Admission hemoglobin 10.6, MCV 85.4, baseline hemoglobin primarily 10-11 range, continue to trend. #7. Acute hyponatremia, suspected secondary to hypervolemic presentation: Admission sodium 125, chloride 92, attempting judicious diuresis as noted above,magnesium normal per ED, TSH requested, will continue to trend CMP and if not correcting certainly investigate further. #8. Acute on chronic thrombocytopenia: Admission platelets 82, has vacillated, most recently 12/13/2024 platelets normal range 157 however previous to this had been in the 130-140 range, will cautiously continue heparin drip as noted, trendCBC. #9. Acute renal insufficiency/elevated creatinine on Chronic Kidney Disease Stage III, unclear subtype or GFR trending: Admission BUN/Cr 50/1.94, GFR 33, baseline renal function primarily 1.3-1.6 range, most recently 12/13/2024 creatinine 1.56, repeat BMP in AM. #10. Valvular heart disease: Status post AVR, noted to be bioprosthetic, 12/12/2024 echocardiogram with stage I diastolic dysfunction, mildly dilated LV, EF 35%, 6 mildly enlarged LA, moderate MVI, mild to moderate TBI, stable appearing bioprosthetic AV apparatus. #11. CAD: Status post PCI and CABG, will continue aspirin, Plavix, not on statin therapy per current list with no allergy noted thus will add at least moderate dose statin given age and presentation as noted #1. Not on beta-mohit therapy, will hold lisinopril given hypotension as noted, attempting to maximize usage for diuresis as noted above. #12. Hypertension: Given hypotensive presentation holding lisinopril, attempting usage as noted of IV Lasix diuresis as able. #13. Hyperlipidemia: Not on statin therapy, adding at least moderate dose givenpresentation #1, FLP in AM. #14. BPH with obstructive pathology: Will cautiously continue Flomax home regimen. #15. GI: Maintained on BIPAP. #16. DVT prophylaxis: Heparin drip. #17. CODE status: Patient and family is his medical decision-maker he notes. Discussed CODE status at length including difference between FULL code, DNR-CCA and DNR-CC status. Following discussions about the differences in these status, requested DNR CCA, no intubation and requested avoidance of any pressor therapy or central line placement. Different examples including respiratory failure isolated component discussed but did not want any intubation in the setting either. Advanced Care Planning Face to Face Time: 16 minutes. Charges/Coding Visit Charges Inpatient E&M: 23970 Init Hosp L3 Procedures Hospitalists Procedures: 20307 Advncd Care Plan 30 Min 02/04/25 2310 <Electronically signed by Rea Cancino MD> Cosigner Signature (if applicable): CC: Dr. Rea Cancino MD; Dr. Pedro Gonzalez MD~ Signed [facility] Work Phone: [phone]) 239-558106-24-2025 Radiology Diagnostic study note [facility] Imaging Services [address] [place] [address] Gallbladder MR#: [id number] Acct: [id number] Name: FLORIN VARGAS Rep #: [id number] : 1940 M 85 From: Emerita Narvaez MD PCP: Dr. Pedro Gonzalez MD Status: ADM IN Study:Gallbladder Date of Exam: 02/04/25 Exam# [id number] Ordering Dr: Chandni Cancino MD PROCEDURE: GALLBLADDER 02/04/2025 REASON FOR EXAM: THICKENED GB, ELEVATED LFTS, FEBRILE COMPARISON: CT chest abdomen and pelvis on 02/04/2025 FINDINGS: Liver: Normal size measuring 15.5 cm longitudinally. Echogenicity is slightly increased relative tothe right kidney. Hepato pedal flow in the main portal vein. Trace perihepatic ascites, unchanged. Gallbladder: Incompletely distended which limits evaluation. Gallbladder wall thickness measures 0.4 cm. No echogenic stones identified. Perihepatic ascites reported on the technologist worksheet is not well-demonstrated on the documented images. Sonographic Patel's sign is not reported by the technologist. Common bile duct: Normal measuring 4 mm. Pancreas: Obscured by bowel gas. Other: Visualized portions of the right kidney are unremarkable. No right upperquadrant ascites. US/Gallbladder IMPRESSION: 1. Limited evaluation due to incomplete distention of the gallbladder. No radiodense stones are seen. There is mild wall thickening, similar to same day CT. 2. Findings suggestive of hepatic steatosis. Reading Location: [facility] CC: Dr. Rea Cancino MD; Dr. Pedro Gonzalez MD ~ Oil Field Tester: Signed [facility]06-24-2025 Discharge summary [facility] Medical Records Department [address] [place] [address] Emergency Department Summary 02/04/25 MR#: [id number] Acct: [id number] Name: FLORIN VARGAS Rep #:[id number] : 1940 85 From: Maryanne Keys PCP: Dr. Pedro Gonzalez MD Status:ADM IN Location: ICU ICU07-1 HPI History of Present Illness Chief Complaint: General Illness Informant: patient Narrative Narrative: Patient is a 85-year-old presenting with worsening shortness of breath, cough and generalized malaise. Patient has a history of heart failure with reduced ejection fraction, CABG, hyperlipidemia and sleep apnea. States he has been feeling worse over the past 4 to 5 days but is been particularly badover the past 2 days. Reports has been feeling lightheaded and short of breath. States cough is been productive of sputum. He has an appointment to see cardiology today they told him his lung sounds were clear. His blood pressure was low. Henotes he has not been eating or drinking as much. States he has been feeling constipated but denies any abdominal pain. Has been passing gas. Denies any blackor blood in his stool. Denies any nausea or vomiting. Denies any rash. Denies any swelling of his legs. Patient's cardiology outpatient visit from today reviewed. Most recently evaluated at our hospital for CHF exacerbation in December 2024. At that time echocardiogram showed LVEF 35%. Was discharged on Lasix 20 mg p.o. daily. Was reporting dizziness. Blood pressure 86/49 with a pulse of 78 in the office t ellie. 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 Was switch to Lasix 40 mg labs daily andlisinopril 2.5 mg daily today. [facility] Medical History GI treated with BiPAP Valvular heart disease HTN (hypertension) CAD (coronary artery disease) HFrEF (heart failure with reduced ejection fraction) Daytime hypersomnolence Nonrheumatic aortic (valve) stenosis Hyperlipidemia Atherosclerotic heart disease of [place] coronary artery without angina pectoris Atherosclerosis of coronary artery bypass graft without angina pectoris (~03/29/22) Home Medications ?Medication ?Instructions ?Recorded ?Last Taken ?Type vitamin E 200 unit capsule 200 unit PO DAILY 09/14/20 Unknown History aspirin 81 mg chewable tablet 81 mg PO Q OTHER DAY 03/29/22 History tamsulosin 0.4 mg capsule (Flomax) 0.4 mg PO QHS #30 c aps 01/27/22 Unknown Rx lisinopril 5 mg tablet 2.5 mg PO DAILY 07/14/23 Unk nown History clopidogrel 75 mg tablet 75 mg PO Q OTHER DAY #45 tab s 11/12/24 Unknown Rx furosemide 40 mg tablet 40 mg PO QDAY #90 TABLETS Unknown Rx Allergy/AdvReac Type Severity Reaction Status Date / Time No Known Allergies Allergy Verified 02/04/25 18:00 Family History Father Myocardial infarction CVA (cerebral vascular accident) Mother CHF (congestive heart failure) Brother CAD (coronary artery disease) Cancer leukemia Surgical History Presence of coronary artery bypass graft stent (~03/29/22) History of arthroplasty of knee H/O coronary artery bypass surgery (~01/2002) History of left inguinal hernia repair (~1961) Presence of stent in coronary artery Postsurgical percutaneous transluminal coronary angioplasty (PTCA) status History of aortic valve replacement with bioprosthetic valve (~12/27/17) Social History adopted: No household members: spouse housing: house number of children: 6 current occupational status: employed current occupation: [employer] current occupational exposures/hazards: No pets and [...] safe at home: Yes ROS ROS ED Constitutional Constitutional ED: Reports fever(s) and other Details: Lightheaded ; Denies chills Eyes Eyes: Denies change in vision ENT ENT ED: Denies rhinorrhea or sore throat Cardiovascular Cardiovascular: Denies chest pain, palpitations or racing heartbeat Respiratory/Chest Respiratory/Chest: Reports cough, dyspnea, dyspnea on exertion and sputum Gastrointestinal Gastrointestinal: Reports abdominal pain and constipation; Denies nausea or vomiting Musculoskeletal Musculoskeletal: Denies arthralgias or myalgias Integumentary Denies rash Neurologic Neurologic: Reports weakness EXAM Physical Exam Const Vital Signs: 02/04/25 17:56 02/04/25 17:58 02/04/25 18:04 Temperature 100.5 F H 100.5 F H Temperature Source Oral Oral Pulse Rate 98 97 Respiratory Rate 21 H 21 H Respiratory Effort Normal Non-Labored Respiratory Pattern Tachypnea Blood Pressure 94/63 94/63 Blood Pressure Mean 73 73 Pulse Ox 93 89 Oxygen Delivery Method Room Air Room Air Oxygen Flow Rate (L/min) Fraction of Inspired Oxygen (FIO2) 02/04/25 18:21 02/04/25 18:46 02/04/25 18:59 Temperature 100.2 F H Temperature Source Oral Pulse Rate 94 92 Respiratory Rate 26 H 23 H Respiratory Effort Respiratory Pattern Blood Pressure 97/69 97/69 Blood Pressure Mean 78 78 Pulse Ox 95 93 96 Oxygen Delivery Method Room Air Room Air Room Air Oxygen Flow Rate (L/min) Fraction of Inspired Oxygen (FIO2) 02/04/25 20:00 02/04/25 20:13 02/04/25 21:00 Temperature 99.5 F H 99.5 F H Temperature Source Oral Oral Pulse Rate 89 88 Respiratory Rate 18 20 H Respiratory Effort Respiratory Pattern Blood Pressure 92/59 L 83/68 L Blood Pressure Mean 70 73 Pulse Ox 98 98 97 Oxygen Delivery Method Nasal Cannula Nasal Cannula Nasal Cannula Oxygen Flow Rate (L/min) 2 2 2 Fraction of Inspired Oxygen (FIO2) 02/04/25 21:43 02/04/25 21:43 02/04/25 22:00 Temperature 99.5 F H Temperature Source Oral Pulse Rate 82 79 Respiratory Rate 23 H 20 H Respiratory Effort Respiratory Pattern Tachypnea Blood Pressure 98/71 Blood Pressure Mean 80 Pulse Ox 98 98 98 Oxygen Delivery Method Bi-pap Bi-pap Oxygen Flow Rate (L/min) Fraction of Inspired Oxygen (FIO2) 28 28 02/04/25 22:48 02/04/25 23:00 Temperature 99.5 F H 99.5 F H Temperature Source Oral Pulse Rate 70 75 Respiratory Rate 20 H 18 Respiratory Effort Respiratory Pattern Blood Pressure 89/65 L 82/61 L Blood Pressure Mean 73 68 Pulse Ox 98 100 Oxygen Delivery Method Bi-pap Oxygen Flow Rate (L/min) Fraction of Inspired Oxygen (FIO2) Positive well nourished and well developed Constitutional Narrative: Mildly ill-appearing General Appearance ED: well developed HEENT Reports dry mucous membranes Mouth ED: Yes dry mucous membranes Mouth: dry mucous membranes Eyes PERRL Neck supple Neck Narrative: Positive JVD Chest Wall inspection of chest normal and palpation of chest normal Resp Resp Narrative: Tachypneic. Diminished breath sounds at the bases. No crackles appreciated. Cardio regular rate and regular rhythm GI non-tender and no masses GI Narrative: Mildly distended abdomen. No tympany. Auscultation: hypoactive bowel sounds Palpation: soft; Negative for tender or guarding Extremity normal to inspection General Extremety ED: Negative for edema General Extremity: Negative for edema Neuro Sensorium / Orientation: alert Motor Exam: general weakness Psych mental status grossly normal Skin no rashes or lesions noted and no wounds MDM MDM MDM Narrative Medical decision making narrative: Patient evaluated for worsening shortness of breath and dyspnea on exertion. Has been feeling lightheaded. Upon arrival patient does have soft blood pressure and is febrile. Differential includes sepsis, pneumonia, symptomatic anemia, MICHELLE, ACS, CHF exacerbation, urinary tract infection. He is not having chest pain so lower suspicion for ACS. EKG does not show any acute ischemic changes however he does have significant ectopy. CBC shows normal white blood cell count of 5.7. He has a mild anemia the hemoglobin of 10.6 but this appears to be stable. CMP shows a mild transaminitis, hyponatremia the sodium of 125, hypochloremia with a level of 92,bicarb of 18. BUN chronically elevated at 50 but creatinine is worsening at nowat 1.94 (was 1.56 a month ago). High-sensitivity troponin initially 108 and on repeat is 111. His proBNP is significantly elevated 28,079 which is significantly elevated compared to2 months ago when it was around 8000. Urinalysis shows 2+ bacteria but otherwise is not consistent with infection. There is no leukocytosis or nitrates. VBG was added on as patient does have underlying sleep apnea and is intermittently falling asleep. This actually shows mixed respiratory and metabolic alkalosis. Patient's blood pressure becomes more hypotensive. He is given Tylenol and 2 L of IV fluid. He has improvement of his blood pressure however his workup is more consistent with a cardiac cause and notinfectious. Is started on a Lasix drip as I do not think his blood pressure will tolerate Lasix bolus. While patient's troponin is elevated it is the remaining table. I do not think this is primary ACS especially as he is not of chest pain his EKG does not show acute ischemia. Suspect this is more type II associated with strain from CHF exacerbation. Is put on BiPAP as he would normally wear this at night for his comfort. Patient started to complain of some increased abdominal discomfort but attributes it more to have been constipation taking a laxative. Given unclear cause of his fever upon arrival a CT of the chest,abdomen pelvis that contrast (due to acute on chronic kidney injury) is obtained. CT imaging shows findings most consistent with CHF in the lungs and a distended gallbladder that could be thickens however this also could be due to fluid overload. He is not tender in this area. Case discussed with hospitalist the patient remitted to the ICU given his soft blood pressures. Family states that he is DNR CCA and would not want intubationnor pressors. I was given a dose of Zosynempirically by hospitalist. Lab Data Attestation: I reviewed the patient's lab results. Labs: Laboratory Results - last 24 hr 02/04/25 02/04/25 02/04/25 17:57 18:30 18:58 WBC 5.7 RBC 3.63 L Hgb 10.6 L Hct 31.0 L MCV 85.4 MCH 29.2 MCHC 34.2 RDW Std Deviation 43.8 RDW Coeff of [place] 13.9 Plt Count 82 L MPV 11.4 Immature Gran % (Auto) 0.500 Neut % (Auto) 79.6 H Lymph % (Auto) 12.3 L [place] % (Auto) 7.4 Eos % (Auto) 0.0 Baso % (Auto) 0.2 Absolute Neuts (auto) 4.5 Absolute Lymphs (auto) 0.70 L Nucleated RBC % 0 Differential Comment SCANNED Platelet Estimate MOD DEC PT 16.0 H INR 1.3 APTT 32.2 Sodium 125 L Potassium 3.9 Chloride 92 L Carbon Dioxide 18.4 L Anion Gap 15 BUN 50 H Creatinine 1.94 H Estim Creat Clear Calc 28.98 L Est GFR (MDRD) Non-Af 33 L BUN/Creatinine Ratio 25.8 H Glucose 131 H Lactic Acid 1.3 Calcium 8.0 Magnesium 2.1 Total Bilirubin 0.66 AST 108 H ALT 84 H Alkaline Phosphatase 137 H Troponin T High Sens 108 H* Troponin T Hi Sens 2 Hr Troponin T [place] 4[place]r [place] [address] H Total Protein 5.9 Albumin 3.5 Globulin 2.4 Albumin/Globulin Ratio 1.5 Urine Color Yellow Urine Clarity Sl. Cloudy Urine pH 5.0 Ur Specific [place] 1.020 Urine Protein 30 H Urine Glucose (UA) Normal Urine Ketones Negative Urine Occult Blood 50 H Urine Nitrite Negative Urine Bilirubin Negative Urine Urobilinogen Normal Ur Leukocyte Esterase Negative Urine RBC 0-5 SEEN Urine WBC 0 SEEN Ur Squamous Epith Cells 0-5 SEEN Ur Renal Epithelial Cell 0-5 SEEN Amorphous Sediment 1+ Urine Bacteria 2+ Urine Mucus 0 SEEN 02/04/25 02/04/25 19:57 21:56 WBC RBC Hgb Hct MCV MCH MCHC RDW Std Deviation RDW Coeff of [place]aro Plt Count MPV Immature Gran % (Auto) Neut % (Auto) Lymph % (Auto) [place] % (Auto) Eos % (Auto) Baso % (Auto) Absolute Neuts (auto) Absolute Lymphs (auto) Nucleated RBC % Differential Comment Platelet Estimate PT INR APTT Sodium Potassium Chloride Carbon Dioxide Anion Gap BUN Creatinine Estim Creat Clear Calc Est GFR (MDRD) Non-Af BUN/Creatinine Ratio Glucose Lactic Acid Calcium Magnesium Total Bilirubin AST ALT Alkaline Phosphatase Troponin T High Sens Troponin T Hi Sens 2 Hr 111 H* Troponin T Hi Sens 4Hr 114 H* NT pro BNP II Total Protein Albumin Globulin Albumin/Globulin Ratio Urine Color Urine Clarity Urine pH Ur Specific [place] Urine Protein Urine Glucose (UA) Urine Ketones Urine Occult Blood Urine Nitrite Urine Bilirubin Urine Urobilinogen Ur Leukocyte Esterase Urine RBC Urine WBC Ur Squamous Epith Cells Ur Renal Epithelial Cell Amorphous Sediment Urine Bacteria Urine Mucus ABG Data ABG results: ABG 02/04/25 20:14 Specimen Type HEIDI Sample Site Not entered VBG pH 7.47 H VBG pO2 37 VBG HCO3 20 L VBG Total CO2 21 L VBG O2 Sat (Calc) 76 H VBG Base Excess -4 L POC Mix VBG pCO2 Pt Tmp 27.3 L O2 Delivery Device Room Air Radiography Chest X-Ray - ED: 1 View, Read by ED Physician, Read by Radiologist and CHF Diagnostic Testing: Clinical Impression(s) from Imaging Studies Chest X-Ray 02/04/25 19:02 IMPRESSION: Prominent interstitial markings with enlarged cardiomediastinal silhouette, as can be seen with cardiogenic pulmonary edema. Reading Location: [id number] Chest/Abdomen/Pelvis CT 02/04/25 20:37 IMPRESSION: 1. Trace pleural effusions, whgby-wgrcogs-fgyb-left. 2. Gallbladder wall thickening, without radiodense stones. This is a nonspecific finding and could be related to fluid overload. Consider ultrasound if patient has associated symptoms. 3. Abdominal aortic aneurysm measuring 4.5 cm. 4. Solid pulmonary nodule in the right middle lobe measuring 4 mm, consider CT chest in 12 months if patient is at high risk for malignancy per Fleischner society guidelines. Reading Location: [facility] Rhythm Strip Rhythm Strip: Sinus Rhythm Rate: 100 Ectopy: PVC(s) EKG Initial EKG: Attestation: I personally reviewed and interpreted this EKG as follows: Interpretation: Sinus Rhythm Comments: Normal sinus rhythm at 100 beats per minutes with first-degree AV block IL interval 230 Frequent PVCs presents as well as fusion complexes T wave inversion in aVL as well as V6 Compared to prior EKG patient now has frequent PVCs but no other acute changes Management Discussion w/another healthcare provider: Hospitalist Discharge Plan Triage Chief Complaint: General Illness ED Provider: Maryanne Emanuel Dx/Rx/DC Orders Clinical Impression: Dyspnea on exertion, Presence of coronary artery bypass graft stent, CHF exacerbation, Elevated troponin, Acute hyponatremia, Acute on chronic kidney failure, Fever, unknown origin, Multifocal PVCs Prescriptions: No Action vitamin E 200 unit capsule 200 unit PO DAILY lisinopril 5 mg tablet 2.5 mg PO DAILY furosemide 40 mg tablet 40 mg PO QDAY Qty: 90 3RF Patient Comments: per may take BID if SOB aspirin 81 mg tablet,chewable 81 mg PO Q OTHER DAY tamsulosin [Flomax] 0.4 mg capsule 0.4 mg PO QHS Qty: 30 0RF clopidogrel 75 mg tablet 75 mg PO Q OTHER DAY Qty: 45 3RF Primary Care Provider: Pedro Gonzalez Referrals: Pedro Gonzalez MD [Primary Care Provider] - Print Language: Kazakh Disposition Disposition: Acute Care Hospital [facility] What to do if you have Problems For any increased pain, shortness of breath, bleeding, nausea or vomiting, chestpain, or any unexpected problems, contact your Primary Care Provider. Call [facility] ([phone]) or report tothe closest Emergency Room. Call 911 if necessary. 02/04/25 8321 Cosigner Signature (if applicable): CC: Dr. Pedro Gonzalez MD ~ Signed [facility]06-24-2025 History and physical note [facility] Medical Records Department [address] [place] [address] H&P Exam - Hospitalist 02/04/259 MR#: [id number] Acct: [id number] Name: FLORIN VARGAS Rep #:[id number] : 1940 85 From: Rea Cancino MD PCP: Dr. Pedro Gonzalez MD Status:REG ER Location: ED HPI - General General Date of Admission: 02/04/25 Date of Service: 02/04/25 Chief Complaint: Dyspnea, fatigue, malaise, cough. HPI Narrative The patient is an 85 y/o M w/ PMHx: Chronic anemia, CKD stage III unclear subtype, Chronic Thrombocytopenia, Valvular Heart Disease, CAD s/p PCI and CABG,HTN, HLD, AAA, BPH with obstructive pathology, HFrEF, GI on BiPAP nightly who presents to the [facility] on 02/04/2025 with history of progressively worsening dyspnea starting on with increased fatigue and malaise, productive cough however he is felt worse over the last 48 hours with mild lightheadedness and worsening dyspnea especially with any exertion with evaluation by cardiologyservice on day of presentation with no concerning pulmonary sounds however he did have a low blood pressure at that time and did reveal that he had not been eating or drinking much and had recently complained of constipation although he did report positive flatus with no nausea or emesis with plan for change to diuretics but given his worsening status prompted ED evaluation to be cautious.Workup in the ED included T1 100.5, heart rate 98, BP 94/63, re spiratory rate 21, initially 93% on room air however desaturated down to 89% with repeat vitals T99.5 Oral, heart rate 88, BP 83/68, respiratory rate 20, 97%on 2 L nasal cannula eventually transitionto a BiPAP with most current vitals T99.5, heart rate 79, BP 90/71, respiratory rate 20, 98% on BiPAP, CBC with WBCsof 5.7, hemoglobin 10.6, MCV 85.4, platelet 82 with lymphopenia, coags with PT 16 otherwise not marked appearing, VBG with pH 7.47, PO237, bicarb 20, total CO221, O2 saturation 76%, CMP with sodium 125, chloride 92, carbon oxide 18.4, BUN/[place] 50/1.94, GFR 33, glucose 131, lactic acid 1.3, magnesium 2.1, AST/FIB198/84, alk phos 137, T. bili 0.66, initial troponin 108 with repeatdelta troponin 111, 4-hour troponin pending upon request evaluation of patient, NT proBNP 26961, urinalysis noted cloudy, protein 30, occult blood 50, no marked urine WBCs or RBCs, negative nitrite, negative leukocyte esterase with 2+ bacteria but again no strong appearance of UTI, chest x-ray withprominent interstitial markings with enlarged cardiomediastinal silhouette concerning for cardiogenic pulmonary edema, CT chest/abdomen/pelvis with trace pleural effusions right greater than left, gallbladder wall thickening without any radiodense stones noted immediately nonspecific, abdominal aortic aneurysm measuring 4.5 cm, solid pulmonary nodule in the right middle lobe measuring 4 mm. Bloodculture x 2 pending per ED, urine culture pending per ED. In the ED patient ministered Tylenol 650 mg p.o. x 1 as well as initiated on a Lasix drip. Garcia catheter placed per ED. He was initially also given 1.5L NS secondary to concern for sepsis but his work-up further notable for overload thus D/C. [facility] Medical History GI treated with BiPAP Valvular heart disease HTN (hypertension) CAD (coronary artery disease) HFrEF (heart failure with reduced ejection fraction) Daytime hypersomnolence Nonrheumatic aortic (valve) stenosis Hyperlipidemia Atherosclerotic heart disease of [place] coronary artery without angina pectoris Atherosclerosis of coronary artery bypass graft without angina pectoris (~03/29/22) Home Medications ?Medication ?Instructions ?Recorded ?Last Taken ?Type vitamin E 200 unit capsule 200 unit PO DAILY 09/14/20 Unknown History aspirin 81 mg chewable tablet 81 mg PO Q OTHER DAY 03/29/22 History tamsulosin 0.4 mg capsule (Flomax) 0.4 mg PO QHS #30 c aps 01/27/22 Unknown Rx lisinopril 5 mg tablet 2.5 mg PO DAILY 07/14/23 Unk nown History clopidogrel 75 mg tablet 75 mg PO Q OTHER DAY #45 tab s 11/12/24 Unknown Rx furosemide 40 mg tablet 40 mg PO QDAY #90 TABLETS Unknown Rx Allergy/AdvReac Type Severity Reaction Status Date / Time No Known Allergies Allergy Verified 02/04/25 18:00 Family History Father Myocardial infarction CVA (cerebral vascular accident) Mother CHF (congestive heart failure) Brother CAD (coronary artery disease) Cancer leukemia Surgical History Presence of coronary artery bypass graft stent (~03/29/22) History of arthroplasty of knee H/O coronary artery bypass surgery (~01/2002) History of left inguinal hernia repair (~1961) Presence of stent in coronary artery Postsurgical percutaneous transluminal coronary angioplasty (PTCA) status History of aortic valve replacement with bioprosthetic valve (~12/27/17) Social History adopted: No household members: spouse [...] safe at home: Yes ROS ROS Narrative Admission Review of Systems: CONSTITUTIONAL: No weight loss, fever, chills, + weakness or fatigue. In the EDpatient noted to be febrile although he denied previous history but did not beenchecking his temperature. HEENT: Eyes: No visual loss, blurred vision, double vision or yellow sclerae. Ears, Nose, Throat: No hearing loss, sneezing, congestion, runny nose or sore throat. SKIN: No rash or itching, lesions, wounds. CARDIOVASCULAR: + Increased edema, orthopnea. No chest pain, chest pressure or chest discomfort, palpitations, syncopal events. RESPIRATORY: + Dyspnea, worse with exertion, productive cough. Occasional wheezing. No hemoptysis. GASTROINTESTINAL: + Lack of appetite, constipation. No nausea, vomiting, diarrhea, abdominal pain, melena, BRBPR. GENITOURINARY: + BPH with chronic obstructive pathology. No dysuria, frequency,urgency. NEUROLOGICAL: No headache, dizziness, syncope, paralysis, ataxia, numbness or tingling in the extremities, focal weakness, change in bowel or bladder control,seizure. MUSCULOSKELETAL: + muscle, back pain, joint pain or stiffness. HEMATOLOGIC: + Chronic anemia, easy bleeding/bruising. LYMPHATICS: No enlarged nodes. No history of splenectomy. PSYCHIATRIC: No history of depression or anxiety. ENDOCRINOLOGIC: No reports of sweating, cold or heat intolerance. No polyuria orpolydipsia. ALLERGIES: No history of asthma, hives, eczema or rhinitis. Vital Signs Vital Signs Vital Signs: 02/04/25 17:56 02/04/25 17:58 02/04/25 18:04 Temperature 100.5 F H 100.5 F H Temperature Source Oral Oral Pulse Rate 98 97 Respiratory Rate 21 H 21 H Respiratory Effort Normal Non-Labored Respiratory Pattern Tachypnea Blood Pressure 94/63 94/63 Blood Pressure Mean 73 73 Pulse Ox 93 89 Oxygen Delivery Method Room Air Room Air Oxygen Flow Rate (L/min) Fraction of Inspired Oxygen (FIO2) 02/04/25 18:21 02/04/25 18:46 02/04/25 18:59 Temperature 100.2 F H Temperature Source Oral Pulse Rate 94 92 Respiratory Rate 26 H 23 H Respiratory Effort Respiratory Pattern Blood Pressure 97/69 97/69 Blood Pressure Mean 78 78 Pulse Ox 95 93 96 Oxygen Delivery Method Room Air Room Air Room Air Oxygen Flow Rate (L/min) Fraction of Inspired Oxygen (FIO2) 02/04/25 20:00 02/04/25 20:13 02/04/25 21:00 Temperature 99.5 F H 99.5 F H Temperature Source Oral Oral Pulse Rate 89 88 Respiratory Rate 18 20 H Respiratory Effort Respiratory Pattern Blood Pressure 92/59 L 83/68 L Blood Pressure Mean 70 73 Pulse Ox 98 98 97 Oxygen Delivery Method Nasal Cannula Nasal Cannula Nasal Cannula Oxygen Flow Rate (L/min) 2 2 2 Fraction of Inspired Oxygen (FIO2) 02/04/25 21:43 02/04/25 21:43 02/04/25 22:00 Temperature 99.5 F H Temperature Source Oral Pulse Rate 82 79 Respiratory Rate 23 H 20 H Respiratory Effort Respiratory Pattern Tachypnea Blood Pressure 98/71 Blood Pressure Mean 80 Pulse Ox 98 98 98 Oxygen Delivery Method Bi-pap Bi-pap Oxygen Flow Rate (L/min) Fraction of Inspired Oxygen (FIO2) 28 28 Weight Weight: 194 lb 10.691 oz Body Mass Index (BMI) 31.4 Physical Exam Narrative Physical Examination: General: Patient awake, alert, oriented to self and recent events, on the BiPAP,fatigued, currentlyrespiratory status improved on BiPAP but blood pressure on monitor noted to be continuing to drop although on Lasix drip. Skin: Normal color, normal turgor, no icterus, no cyanosis except occasional stage ecchymoses, abrasions. HEENT: AT/NC, EOMI, PERRLA, mildly dry MM, BiPAP in place, unable to discern carotid bruit given referred sounds, unable to discern JVD given very thick mcgrath. Lungs: Significantly diminished, distant breath sounds, Rales at the bases, mildly increased respiratory rate but no distress currently is on BiPAP, improved status since initial ED arrival. Heart: Regular rate and rhythm; no gallop, rub audible, + SM. Abdomen: Soft, obese, NTTP, even the right upper quadrant and epigastric region,distant BS, difficult to discern distention HSM given habitus. Extremities: No cyanosis, no clubbing, mild pedal to distal trevizo edema. Neurological: Patient awake, alert, oriented as noted, cognitive function mildlydecreased given increased fatigue, on BiPAP as noted, pupils equally reactive tolight and accommodation, cranial nervesgrossly normal, moving all 4 extremities, no focal deficits, strength severely globally decreased secondary to acute presentation. Psychiatric: Affect appears flat, fatigued, no acute evidence of depressive or anxiety feelings. Results Lab / Micro Data 02/04/25 18:30 02/04/25 17:57 Labs: Laboratory Results - last 24 hr 02/04/25 17:57: Sodium 125 L, Potassium 3.9, Chloride 92 L, Carbon Dioxide 18.4 L, Anion Gap 15, BUN 50 H, Creatinine 1.94 H, Estim Creat Clear Calc 28.98 L, Est GFR (MDRD) Non-Af 33 L, BUN/Creatinine Ratio 25.8 H, Glucose 131 H, Calcium 8.0, Magnesium 2.1, Total Bilirubin 0.66, AST 108 H, ALT 84 H, Alkaline Phosphatase 137 H, Troponin T High Sens 108 H*, [place] [address] H, Total Protein 5.9,Albumin 3.5, Globulin 2.4, Albumin/Globulin Ratio 1.5 02/04/25 18:30: WBC 5.7, RBC 3.63 L, Hgb 10.6 L, Hct 31.0 L, MCV 85.4, MCH 29.2,MCHC 34.2, RDW Std Deviation 43.8, RDW Coeff of [place] 13.9, Plt Count 82 L, MPV 11.4, Immature Gran % (Auto) 0.500, Neut % (Auto) 79.6 H, Lymph % (Auto) 12.3 L,[place] % (Auto) 7.4, Eos % (Auto) 0.0, Baso % (Auto) 0.2, Absolute Neuts (auto) 4.5, Absolute Lymphs (auto) 0.70 L, Nucleated RBC % 0, Differential Comment SCANNED, Platelet Estimate MOD DEC, PT 16.0 H, INR 1.3, APTT 32.2, Lactic Acid 1.3 02/04/25 18:58: Urine Color Yellow, Urine Clarity Sl. Cloudy, Urine pH 5.0, Ur Specific [place] 1.020, Urine Protein 30 H, Urine Glucose (UA) Normal, Urine Ketones Negative, Urine Occult Blood 50 H, Urine Nitrite Negative, Urine Bilirubin Negative, Urine Urobilinogen Normal, Ur Leukocyte Esterase Negative, Urine RBC 0-5 SEEN, Urine WBC 0 SEEN, Ur Squamous Epith Cells 0-5 SEEN, Ur RenalEpithelial Cell 0-5 SEEN, Amorphous Sediment 1+, Urine Bacteria 2+, Urine Mucus 0 SEEN 02/04/25 19:57: Troponin T Hi Sens 2 Hr 111 H* 02/04/25 21:56: Troponin T Hi Sens 4Hr 114 H* ABG Data ABG results: ABG 02/04/25 20:14 Specimen Type HEIDI Sample Site Not entered VBG pH 7.47 H VBG pO2 37 VBG HCO3 20 L VBG Total CO2 21 L VBG O2 Sat (Calc) 76 H VBG Base Excess -4 L POC Mix VBG pCO2 Pt Tmp 27.3 L O2 Delivery Device Room Air Imaging Radiology Impression Chest X-Ray 02/04/25 19:02 IMPRESSION: Prominent interstitial markings with enlarged cardiomediastinal silhouette, as can be seen with cardiogenic pulmonary edema. Reading Location: [id number] Chest/Abdomen/Pelvis CT 02/04/25 20:37 IMPRESSION: 1. Trace pleural effusions, fpsxs-ousuvql-rslc-left. 2. Gallbladder wall thickening, without radiodense stones. This is a nonspecific finding and could be related to fluid overload. Consider ultrasound if patient has associated symptoms. 3. Abdominal aortic aneurysm measuring 4.5 cm. 4. Solid pulmonary nodule in the right middle lobe measuring 4 mm, consider CT chest in 12 months if patient is at high risk for malignancy per Fleischner society guidelines. Reading Location: [id number] Assessment & Plan Assessment/Plan (1) CHF exacerbation: PLAN: Plan The patient is an 85 y/o M w/ PMHx: Chronic anemia, CKD stage III unclear subtype, Chronic Thrombocytopenia, Valvular Heart Disease, CAD s/p PCI and CABG,HTN, HLD, AAA, BPH with obstructive pathology, HFrEF, GI on BiPAP nightly who presents to the [facility] on 02/04/2025 with history of progressively worsening dyspnea starting on with increased fatigue and malaise, productive cough however he is felt worse over the last 48 hours with mild lightheadedness and worsening dyspnea especially with any exertion with evaluation by cardiologyservice on day of presentation with no concerning pulmonary sounds however he did have a low blood pressure at that time and did reveal that he had not been eating or drinking much and had recently complained of constipation although he did report positive flatus with no nausea or emesis with plan for change to diuretics but given his worsening status prompted ED evaluation to be cautious. #1. Acute hypoxic respiratory failure, multifactorial, secondary to acutely decompensated HFrEF complicated by elevated cardiac troponin, consistent with type II NSTEMI suspected likely demand but uncertain complicated by #2, #3: Willadmit to the ICU given MAP upon ED evaluation has noted to be dropping, will request ICU physician consultation as well as Cardiology consultation, will continue BiPAP placement, maintain on cardiac telemetry, continue to obtain cardiac enzyme series, obtain serialEKGs as needed, unfortunately with hypotension diuresis is difficult but will diurese as able, willmonitor I/Os, maintain on intake restriction, continue medical therapy, obtain TSH, normal magnesium level per ED. Most recent ECHO as noted 12/12/2024 however given presentation with significant enzyme elevation we will request repeat echocardiogram to be cautious. #2. Possible Acute Viral Syndrome (recent fever, cough, fatigue, general malaise: Patient with onlypulmonary complaints, no marked abdominal complaints given #3, to be cautious as noted will maintain on BiPAP, wean as tolerated to room air although does use BiPAP nightly, will have as needed albuterol, will maintain on IV Zosyn pending evaluation for gallbladder assessment however transaminitis likely related with his volume overload but to be cautious we willcontinue until able to de-escalate, encourage head of bed, I-S, requested new sputum culture, will obtain full respiratory viral panel. Procalcitonin requested. UCX, blood culture x 2 pending per ED. #3. Mild transaminitis with questionably thickened GB: Lower suspicion for GB etiology. Admission CBC with WBC 5.7 with no marked left shift however patient is febrile, CMP with AST/LT 108/84, CT chest/abdomen/pelvis with gallbladder wall thickening measuring approximately 5 mm however no evidence of any radiodense stones, to be cautious will obtain gallbladder ultrasound, maintain on IV zosyn, allow clears only, maintain on IV PPI. #4. Abdominal aortic aneurysm: CT noting an abdominal aortic aneurysm measuring4.5 cm, noted CTA ofthe chest and abdomen 11/03/2017 with [facility] with a noted infrarenal abdominal aortic aneurysm 3.4 x 3.2 cm, encourage continued outpatient follow-up and evaluation as likely there has been more imaging in between. #5. Incidentally noted pulmonary nodule: Patient with CT scan notable for a solid pulmonary nodule in the right middle lobe measuring 4 mm, encourage continued outpatient follow-up CT imaging with PCP. #6. Chronic normocytic anemia: Admission hemoglobin 10.6, MCV 85.4, baseline hemoglobin primarily 10-11 range, continue to trend. #7. Acute hyponatremia, suspected secondary to hypervolemic presentation: Admission sodium 125, chloride 92, attempting judicious diuresis as noted above,magnesium normal per ED, TSH requested, will continue to trend CMP and if not correcting certainly investigate further. #8. Acute on chronic thrombocytopenia: Admission platelets 82, has vacillated, most recently 12/13/2024 platelets normal range 157 however previous to this had been in the 130-140 range, will cautiously continue heparin drip as noted, trendCBC. #9. Acute renal insufficiency/elevated creatinine on Chronic Kidney Disease Stage III, unclear subtype or GFR trending: Admission BUN/Cr 50/1.94, GFR 33, baseline renal function primarily 1.3-1.6 range, most recently 12/13/2024 creatinine 1.56, repeat BMP in AM. #10. Valvular heart disease: Status post AVR, noted to be bioprosthetic, 12/12/2024 echocardiogram with stage I diastolic dysfunction, mildly dilated LV, EF 35%, 6 mildly enlarged LA, moderate MVI, mild to moderate TBI, stable appearing bioprosthetic AV apparatus. #11. CAD: Status post PCI and CABG, will continue aspirin, Plavix, not on statin therapy per current list with no allergy noted thus will add at least moderate dose statin given age and presentation as noted #1. Not on beta-mohit therapy, will hold lisinopril given hypotension as noted, attempting to maximize usage for diuresis as noted above. #12. Hypertension: Given hypotensive presentation holding lisinopril, attempting usage as noted of IV Lasix diuresis as able. #13. Hyperlipidemia: Not on statin therapy, adding at least moderate dose givenpresentation #1, FLPin AM. #14. BPH with obstructive pathology: Will cautiously continue Flomax home regimen. #15. GI: Maintained on BIPAP. #16. DVT prophylaxis: Heparin drip. #17. CODE status: Patient and family is his medical decision-maker he notes. Discussed CODE status at length including difference between FULL code, DNR-CCA and DNR-CC status. Following discussions about the differences in these status, requested DNR CCA, no intubation and requested avoidance of any pressor therapy or central line placement. Different examples including respiratory failure isolated component discussed but did not want any intubation in the setting either. Advanced Care Planning Face to Face Time: 16 minutes. Charges/Coding Visit Charges Inpatient E&M: 84878 Init Hosp L3 Procedures Hospitalists Procedures: 94119 Advncd Care Plan 30 Min 02/04/25 2310 Cosigner Signature (if applicable): CC: Dr. Rea Cancino MD; Dr. Pedro Gonzalez MD~ Signed [facility]06-24-2025 Radiology Diagnostic study note [facility] Imaging Services [address] [place], [place] [id number] CT Chest, Abd, Pelvis WO Cont MR#: [id number] Acct: [id number] Name: FLORIN VARGAS Rep #: [id number] : 1940 M 85 From: Emerita Narvaez MD PCP: Dr. Pedro Gonzalez MD Status: REG ER Study:CT Chest, Abd, Pelvis WO Cont Date of E xam: 02/04/25 Exam# [id number] Ordering Dr: Anh Emanuel DO PROCEDURE: CT CHEST, ABD, PELVIS WO CONT 02/04/2025 REASON FOR EXAM: SOB, ABD PAIN, FEVER TECHNIQUE: Chest, abdomen and pelvis CT without intravenous contrast. Coronal and Sagittal reconstruction series were provided. One or more dose reduction techniques were used (e.g., Automated exposure control, adjustment of the mA and/or kV according to patient size, use of iterative reconstruction technique. No oral contrast. RADIATION DOSE SUMMARY: CTDlvol: 21.9 mGy DLP: 1671 mGycm COMPARISON: Chest radiographs 02/01/2020 FINDINGS: CT CHEST: Lymph nodes: Mildly prominent subcentimeter mediastinal lymph nodes, likely reactive. Calcified right hilar nodes. Heart and Vasculature: Cardiomegaly with severe coronary calcification and prosthetic aortic valve.Moderate aortic atherosclerosis, without aneurysm. Lungs and Airways: The central airways are predominantly clear. There is atelectasis at the medial aspect of the left lower lobe. There are scattered calcified granulomas throughout both lungs. Solid subpleural nodule in the right middle lobe measuring 4 mm (series 2, image 90). Pleura: Trace pleural effusions, dwrtk-cagjynk-frre-left. Bones: Sequela of median sternotomy. Degenerative changes of the thoracic spine. Soft tissues: Mild bilateral gynecomastia. CT ABDOMEN / PELVIS: Noncontrast technique limits evaluation of the abdominal and pelvic viscera. Liver: No discrete mass. Trace perihepatic ascites along the right posterior margin of the liver. Gallbladder: There is gallbladder wall thickening measuring approximately 5 mm, without radiodense stones. Spleen: Unremarkable Pancreas: Normal size without evidence of mass surrounding inflammation or ductal dilation. Adrenals: Unremarkable Kidneys: No hydronephrosis or stone. Simple cyst at the lower pole of the left kidney. Bladder: Urinary catheter balloon inflated within the lumen. Reproductive Organs: Mild prostatomegaly. Bowel: No obstruction or inflammation. Lymph nodes: Unremarkable. Vasculature: Infrarenal abdominal aortic aneurysm measuring 4.5 cm in diameter Bones: Degenerative changes of the spine. Transitional lumbosacral anatomy. CT/CT Chest, Abd, Pelvis WO [facility] IMPRESSION: 1. Trace pleural effusions, mpbaf-sejzycu-nzkt-left. 2. Gallbladder wall thickening, without radiodense stones. This is a nonspecific finding and could be related to fluid overload. Consider ultrasound if patient has associated symptoms. 3. Abdominal aortic aneurysm measuring 4.5 cm. 4. Solid pulmonary nodule in the right middle lobe measuring 4 mm, consider CT chest in 12 months if patient is at high risk for malignancy per Fleischner society guidelines. Reading Location: [id number] CC: Dr. Maryanne Emanuel DO; Dr. Pedro Gonzalez MD ~ Oil Field Tester: Signed [facility]06-24-2025 Radiology Diagnostic study note [facility] Imaging Services [address] [place], [place] [address] Chest 1 View (Portable) MR#: [id number] Acct: [id number] Name: FLORIN VARGAS Rep #: [id number] : 1940 M 85 From: Emerita Narvaez MD PCP: Dr. Pedro Gonzalez MD Status: REG ER Study:Chest 1 View (Portable) Date of Exam: 02/04/25 Exam# [id number] Ordering Dr: Anh Emanuel DO PROCEDURE: CHEST 1 VIEW (PORTABLE) 02/04/2025 REASON FOR EXAM: SOB TECHNIQUE: Frontal view of the chest. COMPARISON: Chest radiograph on 12/12/2024 and 01/27/2022 FINDINGS: Hardware: Unchanged Heart: Sequela of CABG. Cardiac and mediastinal contours are again prominent. Lungs: Interstitial markings are increased in prominence. Bones: Degenerative changes are identified within the thoracic spine. Median sternotomy wires. RAD/Chest 1 View (Portable) IMPRESSION: Prominent interstitial markings with enlarged cardiomediastinal silhouette, as can be seen with cardiogenic pulmonary edema. Reading Location: [id number] CC: Dr. Maryanne Emanuel DO; Dr. Pedro Gonzalez MD ~ Oil Field Tester: Signed [facility]06-24-2025 Discharge summary Author Maryanne Emanuel [facility] Note Date/Time February 04, 2025 11:2 8pm [facility] Medical Records Department [address] [place] [address] Emergency Department Summary 02/04/25 MR#: [id number] Acct: [id number] Name: FLORIN VARGAS Rep #:[id number] : 1940 85 From: Maryanne Keys PCP: Dr. Pedro Gonzalez MD Status:ADM IN Location: ICU ICU07-1 HPI History of Present Illness Chief Complaint: General Illness Informant: patient Narrative Narrative: Patient is a 85-year-old presenting with worsening shortness of breath, cough and generalized malaise. Patient has a history of heart failure with reduced ejection fraction, CABG, hyperlipidemia and sleep apnea. States he has been feeling worse over the past 4 to 5 days but is been particularly bad over the past 2 days. Reports has been feeling lightheaded and short of breath. States cough is been productive of sputum. He has an appointment to see cardiology today they told him his lung sounds were clear. His blood pressure was low. Henotes he has not been eating or drinking as much. States he has been feeling constipated but denies any abdominal pain. Has been passing gas. Denies any black or blood in his stool. Denies any nausea or vomiting. Denies any rash. Denies any swelling of his legs. Patient's cardiology outpatient visit from today reviewed. Most recently evaluated at our hospital for CHF exacerbation in December 2024. At that time echocardiogram showed LVEF 35%. Was discharged on Lasix 20 mg p.o. daily. Was reporting dizziness. Blood pressure 86/49 with a pulse of 78 in the office today. 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 Was switch to Lasix 40 mg labs daily andlisinopril 2.5 mg daily today. PFSH PFSH Medical History GI treated with BiPAP Valvular heart disease HTN (hypertension) CAD (coronary artery disease) HFrEF (heart failure with reduced ejection fraction) Daytime hypersomnolence Nonrheumatic aortic (valve) stenosis Hyperlipidemia Atherosclerotic heart disease of [place] coronary artery without angina pectoris Atherosclerosis of coronary artery bypass graft without angina pectoris (~03/29/22) Home Medications ?Medication ?Instructions ?Recorded ?Last Taken ?Type vitamin E 200 unit capsule 200 unit PO DAILY 09/14/20 Unknown History aspirin 81 mg chewable tablet 81 mg PO Q OTHER DAY 03/29/22 History tamsulosin 0.4 mg capsule (Flomax) 0.4 mg PO QHS #30 c aps 01/27/22 Unknown Rx lisinopril 5 mg tablet 2.5 mg PO DAILY 07/14/23 Unk nown History clopidogrel 75 mg tablet 75 mg PO Q OTHER DAY #45 tab s 11/12/24 Unknown Rx furosemide 40 mg tablet 40 mg PO QDAY #90 TABLETS Unknown Rx Allergy/AdvReac Type Severity Reaction Status Date / Time No Known Allergies Allergy Verified 02/04/25 18:00 Family History Father Myocardial infarction CVA (cerebral vascular accident) Mother CHF (congestive heart failure) Brother CAD (coronary artery disease) Cancer leukemia Surgical History Presence of coronary artery bypass graft stent (~03/29/22) History of arthroplasty of knee H/O coronary artery bypass surgery (~01/2002) History of left inguinal hernia repair (~1961) Presence of stent in coronary artery Postsurgical percutaneous transluminal coronary angioplasty (PTCA) status History of aortic valve replacement with bioprosthetic valve (~12/27/17) Social History adopted: No household members: spouse [...] safe at home: Yes ROS ROS ED Constitutional Constitutional ED: Reports fever(s) and other Details: Lightheaded ; Denies chills Eyes Eyes: Denies change in vision ENT ENT ED: Denies rhinorrhea or sore throat Cardiovascular Cardiovascular: Denies chest pain, palpitations or racing heartbeat Respiratory/Chest Respiratory/Chest: Reports cough, dyspnea, dyspnea on exertion and sputum Gastrointestinal Gastrointestinal: Reports abdominal pain and constipation; Denies nausea or vomiting Musculoskeletal Musculoskeletal: Denies arthralgias or myalgias Integumentary Denies rash Neurologic Neurologic: Reports weakness EXAM Physical Exam Const Vital Signs: 02/04/25 17:56 02/04/25 17:58 02/04/25 18:04 Temperature 100.5 F H 100.5 F H Temperature Source Oral Oral Pulse Rate 98 97 Respiratory Rate 21 H 21 H Respiratory Effort Normal Non-Labored Respiratory Pattern Tachypnea Blood Pressure 94/63 94/63 Blood Pressure Mean 73 73 Pulse Ox 93 89 Oxygen Delivery Method Room Air Room Air Oxygen Flow Rate (L/min) Fraction of Inspired Oxygen (FIO2) 02/04/25 18:21 02/04/25 18:46 02/04/25 18:59 Temperature 100.2 F H Temperature Source Oral Pulse Rate 94 92 Respiratory Rate 26 H 23 H Respiratory Effort Respiratory Pattern Blood Pressure 97/69 97/69 Blood Pressure Mean 78 78 Pulse Ox 95 93 96 Oxygen Delivery Method Room Air Room Air Room Air Oxygen Flow Rate (L/min) Fraction of Inspired Oxygen (FIO2) 02/04/25 20:00 02/04/25 20:13 02/04/25 21:00 Temperature 99.5 F H 99.5 F H Temperature Source Oral Oral Pulse Rate 89 88 Respiratory Rate 18 20 H Respiratory Effort Respiratory Pattern Blood Pressure 92/59 L 83/68 L Blood Pressure Mean 70 73 Pulse Ox 98 98 97 Oxygen Delivery Method Nasal Cannula Nasal Cannula Nasal Cannula Oxygen Flow Rate (L/min) 2 2 2 Fraction of Inspired Oxygen (FIO2) 02/04/25 21:43 02/04/25 21:43 02/04/25 22:00 Temperature 99.5 F H Temperature Source Oral Pulse Rate 82 79 Respiratory Rate 23 H 20 H Respiratory Effort Respiratory Pattern Tachypnea Blood Pressure 98/71 Blood Pressure Mean 80 Pulse Ox 98 98 98 Oxygen Delivery Method Bi-pap Bi-pap Oxygen Flow Rate (L/min) Fraction of Inspired Oxygen (FIO2) 28 28 02/04/25 22:48 02/04/25 23:00 Temperature 99.5 F H 99.5 F H Temperature Source Oral Pulse Rate 70 75 Respiratory Rate 20 H 18 Respiratory Effort Respiratory Pattern Blood Pressure 89/65 L 82/61 L Blood Pressure Mean 73 68 Pulse Ox 98 100 Oxygen Delivery Method Bi-pap Oxygen Flow Rate (L/min) Fraction of Inspired Oxygen (FIO2) Positive well nourished and well developed Constitutional Narrative: Mildly ill-appearing General Appearance ED: well developed HEENT Reports dry mucous membranes Mouth ED: Yes dry mucous membranes Mouth: dry mucous membranes Eyes PERRL Neck supple Neck Narrative: Positive JVD Chest Wall inspection of chest normal and palpation of chest normal Resp Resp Narrative: Tachypneic. Diminished breath sounds at the bases. No crackles appreciated. Cardio regular rate and regular rhythm GI non-tender and no masses GI Narrative: Mildly distended abdomen. No tympany. Auscultation: hypoactive bowel sounds Palpation: soft; Negative for tender or guarding Extremity normal to inspection General Extremety ED: Negative for edema General Extremity: Negative for edema Neuro Sensorium / Orientation: alert Motor Exam: general weakness Psych mental status grossly normal Skin no rashes or lesions noted and no wounds MDM MDM MDM Narrative Medical decision making narrative: Patient evaluated for worsening shortness of breath and dyspnea on exertion. Has been feeling lightheaded. Upon arrival patient does have soft blood pressure and is febrile. Differential includes sepsis, pneumonia, symptomatic anemia, MICHELLE, ACS, CHF exacerbation, urinary tract infection. He is not having chest pain so lower suspicion for ACS. EKG does not show any acute ischemic changes however he does have significant ectopy. CBC shows normal white blood cell count of 5.7. He has a mild anemia the hemoglobin of 10.6 but this appears to be stable. CMP shows a mild transaminitis, hyponatremia the sodium of 125, hypochloremia with a level of 92,bicarb of 18. BUN chronically elevated at 50 but creatinine is worsening at nowat 1.94 (was 1.56 a month ago). High-sensitivity troponin initially 108 and on repeat is 111. His proBNP is significantly elevated 28,079 which is significantly elevated compared to2 months ago when it was around 8000. Urinalysis shows 2+ bacteria but otherwise is not consistent with infection. There is no leukocytosis or nitrates. VBG was added on as patient does have underlying sleep apnea and is intermittently falling asleep. This actually shows mixed respiratory and metabolic alkalosis. Patient's blood pressure becomes more hypotensive. He is given Tylenol and 2 L of IV fluid. He has improvement of his blood pressure however his workup is more consistent with a cardiac cause and not infectious. Is started on a Lasix drip as I do not think his blood pressure will tolerate Lasix bolus. While patient's troponin is elevated it is the remaining table. I do not think this is primary ACS especially as he is not of chest pain his EKG does not show acute ischemia. Suspect this is more type II associated with strain from CHF exacerbation. Is put on BiPAP as he would normally wear this at night for his comfort. Patient started to complain of some increased abdominal discomfort but attributes it more to have been constipation taking a laxative. Given unclear cause of his fever upon arrival a CT of the chest, abdomen pelvis that contrast (due to acute on chronic kidney injury) is obtained. CT imaging shows findings most consistent with CHF in the lungs and a distended gallbladder that could be thickens however this also could be due to fluid overload. He is not tender in this area. Case discussed with hospitalist the patient remitted to the ICU given his soft blood pressures. Family states that he is DNR CCA and would not want intubationnor pressors. I was given a dose of Zosyn empirically by hospitalist. Lab Data Attestation: I reviewed the patient's lab results. Labs: Laboratory Results - last 24 hr 02/04/25 02/04/25 02/04/25 17:57 18:30 18:58 WBC 5.7 RBC 3.63 L Hgb 10.6 L Hct 31.0 L MCV 85.4 MCH 29.2 MCHC 34.2 RDW Std Deviation 43.8 RDW Coeff of Jenaro 13.9 Plt Count 82 L MPV 11.4 Immature Gran % (Auto) 0.500 Neut % (Auto) 79.6 H Lymph % (Auto) 12.3 L [place] % (Auto) 7.4 Eos % (Auto) 0.0 Baso % (Auto) 0.2 Absolute Neuts (auto) 4.5 Absolute Lymphs (auto) 0.70 L Nucleated RBC % 0 Differential Comment SCANNED Platelet Estimate MOD DEC PT 16.0 H INR 1.3 APTT 32.2 Sodium 125 L Potassium 3.9 Chloride 92 L Carbon Dioxide 18.4 L Anion Gap 15 BUN 50 H Creatinine 1.94 H Estim Creat Clear Calc 28.98 L Est GFR (MDRD) Non-Af 33 L BUN/Creatinine Ratio 25.8 H Glucose 131 H Lactic Acid 1.3 Calcium 8.0 Magnesium 2.1 Total Bilirubin 0.66 AST 108 H ALT 84 H Alkaline Phosphatase 137 H Troponin T High Sens 108 H* Troponin T Hi Sens 2 Hr Troponin [place] 4[place] [address] H Total Protein 5.9 Albumin 3.5 Globulin 2.4 Albumin/Globulin Ratio 1.5 Urine Color Yellow Urine Clarity Sl. Cloudy Urine pH 5.0 Ur Specific [place] 1.020 Urine Protein 30 H Urine Glucose (UA) Normal Urine Ketones Negative Urine Occult Blood 50 H Urine Nitrite Negative Urine Bilirubin Negative Urine Urobilinogen Normal Ur Leukocyte Esterase Negative Urine RBC 0-5 SEEN Urine WBC 0 SEEN Ur Squamous Epith Cells 0-5 SEEN Ur Renal Epithelial Cell 0-5 SEEN Amorphous Sediment 1+ Urine Bacteria 2+ Urine Mucus 0 SEEN 02/04/25 02/04/25 19:57 21:56 WBC RBC Hgb Hct MCV MCH MCHC RDW Std Deviation RDW Coeff of [place] Plt Count MPV Immature Gran % (Auto) Neut % (Auto) Lymph % (Auto) [place] % (Auto) Eos % (Auto) Baso % (Auto) Absolute Neuts (auto) Absolute Lymphs (auto) Nucleated RBC % Differential Comment Platelet Estimate PT INR APTT Sodium Potassium Chloride Carbon Dioxide Anion Gap BUN Creatinine Estim Creat Clear Calc Est GFR (MDRD) Non-Af BUN/Creatinine Ratio Glucose Lactic Acid Calcium Magnesium Total Bilirubin AST ALT Alkaline Phosphatase Troponin T High Sens Troponin T Hi Sens 2 Hr 111 H* Troponin T Hi Sens 4Hr 114 H* NT pro BNP II Total Protein Albumin Globulin Albumin/Globulin Ratio Urine Color Urine Clarity Urine pH Ur Specific [place] Urine Protein Urine Glucose (UA) Urine Ketones Urine Occult Blood Urine Nitrite Urine Bilirubin Urine Urobilinogen Ur Leukocyte Esterase Urine RBC Urine WBC Ur Squamous Epith Cells Ur Renal Epithelial Cell Amorphous Sediment Urine Bacteria Urine Mucus ABG Data ABG results: ABG 02/04/25 20:14 Specimen Type HEIDI Sample Site Not entered VBG pH 7.47 H VBG pO2 37 VBG HCO3 20 L VBG Total CO2 21 L VBG O2 Sat (Calc) 76 H VBG Base Excess -4 L POC Mix VBG pCO2 Pt Tmp 27.3 L O2 Delivery Device Room Air Radiography Chest X-Ray - ED: 1 View, Read by ED Physician, Read by Radiologist and CHF Diagnostic Testing: Clinical Impression(s) from Imaging Studies Chest X-Ray 02/04/25 19:02 IMPRESSION: Prominent interstitial markings with enlarged cardiomediastinal silhouette, as can be seen with cardiogenic pulmonary edema. Reading Location: [id number] Chest/Abdomen/Pelvis CT 02/04/25 20:37 IMPRESSION: 1. Trace pleural effusions, ptals-etopdbv-sznq-left. 2. Gallbladder wall thickening, without radiodense stones. This is a nonspecific finding and could be related to fluid overload. Consider ultrasound if patient has associated symptoms. 3. Abdominal aortic aneurysm measuring 4.5 cm. 4. Solid pulmonary nodule in the right middle lobe measuring 4 mm, consider CT chest in 12 months if patient is at high risk for malignancy per Fleischner society guidelines. Reading Location: [facility] Rhythm Strip Rhythm Strip: Sinus Rhythm Rate: 100 Ectopy: PVC(s) EKG Initial EKG: Attestation: I personally reviewed and interpreted this EKG as follows: Interpretation: Sinus Rhythm Comments: Normal sinus rhythm at 100 beats per minutes with first-degree AV block IL interval 230 Frequent PVCs presents as well as fusion complexes T wave inversion in aVL as well as V6 Compared to prior EKG patient now has frequent PVCs but no other acute changes Management Discussion w/another healthcare provider: Hospitalist Discharge Plan Triage Chief Complaint: General Illness ED Provider: Maryanne Emanuel Dx/Rx/DC Orders Clinical Impression: Dyspnea on exertion, Presence of coronary artery bypass graft stent, CHF exacerbation, Elevated troponin, Acute hyponatremia, Acute on chronic kidney failure, Fever, unknown origin, Multifocal PVCs Prescriptions: No Action vitamin E 200 unit capsule 200 unit PO DAILY lisinopril 5 mg tablet 2.5 mg PO DAILY furosemide 40 mg tablet 40 mg PO QDAY Qty: 90 3RF Patient Comments: per may take BID if SOB aspirin 81 mg tablet,chewable 81 mg PO Q OTHER DAY tamsulosin [Flomax] 0.4 mg capsule 0.4 mg PO QHS Qty: 30 0RF clopidogrel 75 mg tablet 75 mg PO Q OTHER DAY Qty: 45 3RF Primary Care Provider: Pedro Gonzalez Referrals: Pedro Gonzalez MD [Primary Care Provider] - Print Language: Kazakh Disposition Disposition: Acute Care Hospital [facility] What to do if you have Problems For any increased pain, shortness of breath, bleeding, nausea or vomiting, chestpain, or any unexpected problems, contact your Primary Care Provider. Call [facility] ([phone]) or report to the closest Emergency Room. Call 911 if necessary. 02/04/252327 <Electronically signed by Maryanne Emanuel DO> Cosigner Signature (if applicable): CC: Dr. Pedro Gonzalez MD ~ Signed [facility] Work Phone: 1(616) 197-557606-24-2025 Evaluation note* Diagnosis Onset Date Resolution Status Admit Date Irregular heart rhythm acute Ju 2024 8:47am HFrEF (heart failure with reduced ejection fraction) chronic February 04, 2025 8:47am Hyperlipidemia chronic February 04, 2025 8:47am Presence of stent in coronar y artery chronic February 04, 2025 8:47am H/O coronary artery bypass surgery 2002 inactive February 04, 2025 8:47am History of aortic valve replacement with bioprosthetic valve Dec, 2017 inactive February 04, 2025 8:47am Gallbladder anomaly acute February 04, 2025 10:42pm PVC (premature ventricular contraction) chronic February 04, 2025 10:42pm Acute hypoxic respiratory failure resolved February 04, 2025 10:42pm CHF exacerbation resolved January 10:42pm Elevated troponin resolved February 042024 10:42pm Shock resolved Harriet [address], 202 5 10:42pm Transaminitis resolved February 04, 2025 10:42pm Abdominal aortic aneurysm inactive February 04, 2025 10:42pm Chronic systolic (congestive ) heart failure inactive February 04, 2025 10:42pm H/O coronary artery bypass surgery 2001 inactive February 04, 2025 10:42pm History of aortic valve replacement with bioprosthetic valve Dec, 2017 inactive February 04, 2025 10:42pm Multifocal PVCs inactive January 10:42pm Thrombocytopenia inactive January 10:42pm Irregular heart rhythm acute Ju 2024 9:59am HFrEF (heart failure with reduced ejection fraction) chronic February 11, 2025 9:59am Hyperlipidemia chronic February 11, 2025 9:59am Presence of stent in coronar y artery chronic February 11, 2025 9 :59am PVC (premature ventricular contraction) chronic February 11, 2025 9 :59am H/O coronary artery bypass surgery 2001 inactive February 11, 2025 9 :59am History of aortic valve replacement with bioprosthetic valve Dec, 2017 inactive February 11, 2025 9 :59am HFrEF (heart failure with reduced ejection fraction) chronic February 26, 2025 8:48am Hyperlipidemia chronic February 26, 2025 8:48am Presence of stent in coronar y artery chronic February 26, 2025 8:48am PVC (premature ventricular contraction) chronic February 26, 2025 8:48am H/O coronary artery bypass surgery 2001 inactive February 26, 2025 8:48am History of aortic valve replacement with bioprosthetic valve Dec, 2017 inactive February 26, 2025 8:48am HFrEF (heart failure with reduced ejection fraction) chronic 2024 9:50am Hyperlipidemia chronic March 9:50am Presence of stent in coronar y artery chronic April 07 9:50am PVC (premature ventricular contraction) chronic April 07 9:50am H/O coronary artery bypass surgery 2001 inactive April 07 9:50am History of aortic valve replacement with bioprosthetic valve Dec, 2017 inactive April 07 9:50am [facility] Work Phone: 1(786) 572-204405-02-2025 [facility]05-01-2025 Evaluation note* Diagnosis Onset Date Resolution Status Admit Date Dyspnea on exertion acute December 122024 9:20am Hypoxia acute December 12, 2024 9:20am SOB (shortness of breath) acute December 12, 2024 9:20am CHF exacerbation chronic December 12, 2024 9:20am Dyspnea on exertion chronic December 122024 10:16am H/O coronary artery bypass surgery 2001 chronic December 25, 2024 1 0:16am HFrEF (heart failure with reduced ejection fraction) chronic December 122024 10:16am History of aortic valve replacement with bioprosthetic valve Dec, 2017 chronic December 25, 2024 1 0:16am Hyperlipidemia chronic December 25, 2024 10:16am Presence of stent in coronar y artery chronic December 25, 2024 1 0:16am [facility] Work Phone: 1(710) 455-879005-01-2025 Evaluation note* Diagnosis Onset Date Resolution Status Admit Date Dyspnea on exertion acute December 122024 9:20am Hypoxia acute December 12, 2024 9:20am SOB (shortness of breath) acute December 12, 2024 9:20am CHF exacerbation chronic December 12, 2024 9:20am Dyspnea on exertion chronic December 122024 10:16am H/O coronary artery bypass surgery 2001 chronic December 25, 2024 1 0:16am HFrEF (heart failure with reduced ejection fraction) chronic December 122024 10:16am History of aortic valve replacement with bioprosthetic valve Dec, 2017 chronic December 25, 2024 1 0:16am Hyperlipidemia chronic December 25, 2024 10:16am Presence of stent in coronar y artery chronic December 25, 2024 1 0:16am Irregular heart rhythm acute 2024 8:47am Dyspnea on exertion chronic February 04, 2025 8:47am H/O coronary artery bypass surgery 2001 chronic February 04, 2025 8:47am HFrEF (heart failure with reduced ejection fraction) chronic February 04, 2025 8:47am History of aortic valve replacement with bioprosthetic valve Dec, 2017 chronic February 04, 2025 8:47am Hyperlipidemia chronic February 04, 2025 8:47am Presence of stent in coronar y artery chronic February 04, 2025 8:47am [facility] Work Phone: 1([phone]) 741-913205-01-2025 Evaluation note* Diagnosis Onset Date Resolution Status Admit Date Dyspnea on exertion acute December 122024 9:20am Hypoxia acute December 12, 2024 9:20am SOB (shortness of breath) acute December 12, 2024 9:20am CHF exacerbation chronic December 12, 2024 9:20am Dyspnea on exertion chronic December 122024 10:16am H/O coronary artery bypass surgery 2001 chronic December 25, 2024 1 0:16am History of aortic valve replacement with bioprosthetic valve Dec, 2017 chronic December 25, 2024 1 0:16am Hyperlipidemia chronic December 25, 2024 10:16am Presence of stent in coronar y artery chronic December 25, 2024 1 0:16am HFrEF (heart failure with reduced ejection fraction) inactive December 122024 10:16am Irregular heart rhythm acute 2024 8:47am H/O coronary artery bypass surgery 2001 chronic February 04, 2025 8:47am History of aortic valve replacement with bioprosthetic valve Dec, 2017 chronic February 04, 2025 8:47am Hyperlipidemia chronic February 04, 2025 8:47am Presence of stent in coronar y artery chronic February 04, 2025 8:47am HFrEF (heart failure with reduced ejection fraction) inactive February 04, 2025 8:47am CHF exacerbation chronic January 10:42pm [facility] Work Phone: 1(338) 378-154105-01-2025 Evaluation note* Diagnosis Onset Date Resolution Status Admit Date Dyspnea on exertion acute December 122024 9:20am Hypoxia acute December 12, 2024 9:20am SOB (shortness of breath) acute December 12, 2024 9:20am CHF exacerbation chronic December 12, 2024 9:20am Dyspnea on exertion chronic December 122024 10:16am H/O coronary artery bypass surgery 2001 chronic December 25, 2024 10:16am History of aortic valve replacement with bioprosthetic valve Dec, 2017 chronic December 25, 2024 10:16am Hyperlipidemia chronic December 25, 2024 10:16am Presence of stent in coronar y artery chronic December 25, 2024 10:16am HFrEF (heart failure with re duced ejection fraction) inactive December 25 10:16am Irregular heart rhythm acute Ju 2024 8:47am H/O coronary artery bypass surgery 2001 chronic February 04, 2025 8:47am History of aortic valve replacement with bioprosthetic valve Dec, 2017 chronic February 04, 2025 8:47am Hyperlipidemia chronic February 04, 2025 8:47am Presence of stent in coronar y artery chronic February 04, 2025 8:47am HFrEF (heart failure with re duced ejection fraction) inactive February 04 8:47am Abdominal aortic aneurysm acute February 04, 2025 10:42pm Acute hypoxic respiratory failure ac [place] February 04, 2025 10:42pm Elevated troponin acute February 042024 10:42pm Gallbladder anomaly acute February 04, 2025 10:42pm Multifocal PVCs acute January 10:42pm PVC (premature ventricular contraction) acute February 04, 2025 10:42pm Shock acute February 04 10:42pm Thrombocytopenia acute January 10:42pm Transaminitis acute February 04, 2025 10:42pm CHF exacerbation chronic January 10:42pm Chronic systolic (congestive ) heart failure chronic February 04, 2025 10:42pm H/O coronary artery bypass surgery 2001 chronic February 04, 2025 10:42pm History of aortic valve replacement with bioprosthetic valve Dec, 2017 chronic February 04, 2025 10:42pm [facility] Work Phone: 1(128) 256-449305-01-2025 Evaluation note* Diagnosis Onset Date Resolution Status Admit Date Dyspnea on exertion acute December 122024 9:20am Hypoxia acute December 12, 2024 9:20am SOB (shortness of breath) acute December 12, 2024 9:20am CHF exacerbation chronic December 12, 2024 9:20am Dyspnea on exertion chronic December 122024 10:16am H/O coronary artery bypass surgery 2001 chronic December 25, 2024 10:16am History of aortic valve replacement with bioprosthetic valve Dec, 2017 chronic December 25, 2024 10:16am Hyperlipidemia chronic December 25, 2024 10:16am Presence of stent in coronar y artery chronic December 25, 2024 10:16am HFrEF (heart failure with re duced ejection fraction) inactive December 25 10:16am Irregular heart rhythm acute Ju 2024 8:47am H/O coronary artery bypass surgery 2001 chronic February 04, 2025 8:47am History of aortic valve replacement with bioprosthetic valve Dec, 2017 chronic February 04, 2025 8:47am Hyperlipidemia chronic February 04, 2025 8:47am Presence of stent in coronar y artery chronic February 04, 2025 8:47am HFrEF (heart failure with re duced ejection fraction) inactive February 04 8:47am Abdominal aortic aneurysm acute February 04, 2025 10:42pm Acute hypoxic respiratory failure ac [place] February 04, 2025 10:42pm Elevated troponin acute February 042024 10:42pm Gallbladder anomaly acute February 04, 2025 10:42pm Multifocal PVCs acute January 10:42pm PVC (premature ventricular contraction) acute February 04, 2025 10:42pm Shock acute February 04 10:42pm Thrombocytopenia acute January 10:42pm Transaminitis acute February 04, 2025 10:42pm CHF exacerbation chronic January 10:42pm Chronic systolic (congestive ) heart failure chronic February 04, 2025 10:42pm H/O coronary artery bypass surgery 2001 chronic February 04, 2025 10:42pm History of aortic valve replacement with bioprosthetic valve Dec, 2017 chronic February 04, 2025 10:42pm Irregular heart rhythm acute 2024 9:59am PVC (premature ventricular contraction) acute February 11, 2025 9 :59am H/O coronary artery bypass surgery 2001 chronic February 11, 2025 9 :59am History of aortic valve replacement with bioprosthetic valve Dec, 2017 chronic February 11, 2025 9 :59am Hyperlipidemia chronic February 11, 2025 9:59am Presence of stent in coronar y artery chronic February 11, 2025 9 :59am HFrEF (heart failure with re duced ejection fraction) inactive February 11 9:59am [facility] Work Phone: 1(980) 758-287105-01-2025 Evaluation note* Diagnosis Onset Date Resolution Status Admit Date Dyspnea on exertion acute December 122024 9:20am Hypoxia acute December 12, 2024 9:20am SOB (shortness of breath) acute December 12, 2024 9:20am CHF exacerbation resolved December 12, 2024 9:20am Dyspnea on exertion chronic December 122024 10:16am HFrEF (heart failure with re duced ejection fraction) chronic December 25 10:16am Hyperlipidemia chronic December 25, 2024 10:16am Presence of stent in coronar y artery chronic December 25, 2024 10:16am H/O coronary artery bypass surgery 2001 inactive December 25, 2024 10:16am History of aortic valve replacement with bioprosthetic valve Dec, 2017 inactive December 25, 2024 10:16am Irregular heart rhythm acute Ju 2024 8:47am HFrEF (heart failure with re duced ejection fraction) chronic February 04 8:47am Hyperlipidemia chronic February 04, 2025 8:47am Presence of stent in coronar y artery chronic February 04, 2025 8:47am H/O coronary artery bypass surgery 2001 inactive February 04, 2025 8:47am History of aortic valve replacement with bioprosthetic valve Dec, 2017 inactive February 04, 2025 8:47am Gallbladder anomaly acute February 04, 2025 10:42pm PVC (premature ventricular contraction) chronic February 04, 2025 10:42pm Acute hypoxic respiratory failure re solved February 04, 2025 10:42pm CHF exacerbation resolved January 10:42pm Elevated troponin resolved February 042024 10:42pm Shock resolved February 04 10:42pm Transaminitis resolved February 04, 2025 10:42pm Abdominal aortic aneurysm inactive February 04, 2025 10:42pm Chronic systolic (congestive ) heart failure inactive February 04, 2025 10:42pm H/O coronary artery bypass surgery 2001 inactive February 04, 2025 10:42pm History of aortic valve replacement with bioprosthetic valve Dec, 2017 inactive February 04, 2025 10:42pm Multifocal PVCs inactive January 10:42pm Thrombocytopenia inactive January 10:42pm Irregular heart rhythm acute Ju 2024 9:59am HFrEF (heart failure with re duced ejection fraction) chronic February 11 9:59am Hyperlipidemia chronic February 11, 2025 9:59am Presence of stent in coronar y artery chronic February 11, 2025 9 :59am PVC (premature ventricular contraction) chronic February 11, 2025 9 :59am H/O coronary artery bypass surgery 2001 inactive February 11, 2025 9 :59am History of aortic valve replacement with bioprosthetic valve Dec, 2017 inactive February 11, 2025 9 :59am [facility] Work Phone: 1(754) 496-961705-01-2025 Evaluation note* Diagnosis Onset Date Resolution Status Admit Date Dyspnea on exertion acute December 122024 9:20am Hypoxia acute December 12, 2024 9:20am SOB (shortness of breath) acute December 12, 2024 9:20am CHF exacerbation resolved December 12, 2024 9:20am Dyspnea on exertion chronic December 122024 10:16am HFrEF (heart failure with re duced ejection fraction) chronic December 25 10:16am Hyperlipidemia chronic December 25, 2024 10:16am Presence of stent in coronar y artery chronic December 25, 2024 10:16am H/O coronary artery bypass surgery 2001 inactive December 25, 2024 10:16am History of aortic valve replacement with bioprosthetic valve Dec, 2017 inactive December 25, 2024 10:16am Irregular heart rhythm acute 2024 8:47am HFrEF (heart failure with re duced ejection fraction) chronic February 04 8:47am Hyperlipidemia chronic February 04, 2025 8:47am Presence of stent in coronar y artery chronic February 04, 2025 8:47am H/O coronary artery bypass surgery 2001 inactive February 04, 2025 8:47am History of aortic valve replacement with bioprosthetic valve Dec, 2017 inactive February 04, 2025 8:47am Gallbladder anomaly acute February 04, 2025 10:42pm PVC (premature ventricular contraction) chronic February 04, 2025 10:42pm Acute hypoxic respiratory failure re solved February 04, 2025 10:42pm CHF exacerbation resolved January 10:42pm Elevated troponin resolved February 042024 10:42pm Shock resolved February 04 10:42pm Transaminitis resolved February 04, 2025 10:42pm Abdominal aortic aneurysm inactive February 04, 2025 10:42pm Chronic systolic (congestive ) heart failure inactive February 04, 2025 10:42pm H/O coronary artery bypass surgery 2001 inactive February 04, 2025 10:42pm History of aortic valve replacement with bioprosthetic valve Dec, 2017 inactive February 04, 2025 10:42pm Multifocal PVCs inactive January 10:42pm Thrombocytopenia inactive January 10:42pm Irregular heart rhythm acute Ju 2024 9:59am HFrEF (heart failure with re duced ejection fraction) chronic February 11 9:59am Hyperlipidemia chronic February 11, 2025 9:59am Presence of stent in coronar y artery chronic February 11, 2025 9 :59am PVC (premature ventricular contraction) chronic February 11, 2025 9 :59am H/O coronary artery bypass surgery 2001 inactive February 11, 2025 9 :59am History of aortic valve replacement with bioprosthetic valve Dec, 2017 inactive February 11, 2025 9 :59am HFrEF (heart failure with re duced ejection fraction) chronic February 26 8:48am Hyperlipidemia chronic February 26, 2025 8:48am Presence of stent in coronar y artery chronic February 26, 2025 8:48am PVC (premature ventricular contraction) chronic February 26, 2025 8:48am H/O coronary artery bypass surgery 2001 inactive February 26, 2025 8:48am History of aortic valve replacement with bioprosthetic valve Dec, 2017 inactive February 26, 2025 8:48am [facility] Work Phone: 1(466) 950-840005-01-2025 Evaluation note* Diagnosis Onset Date Resolution Status Admit Date Dyspnea on exertion acute December 122024 9:20am Hypoxia acute December 12, 2024 9:20am SOB (shortness of breath) acute December 12, 2024 9:20am CHF exacerbation resolved December 12, 2024 9:20am Dyspnea on exertion chronic December 122024 10:16am HFrEF (heart failure with reduced ejection fraction) chronic December 122024 10:16am Hyperlipidemia chronic December 25, 2024 10:16am Presence of stent in coronar y artery chronic December 25, 2024 1 0:16am H/O coronary artery bypass surgery 2001 inactive December 25, 2024 1 0:16am History of aortic valve replacement with bioprosthetic valve Dec, 2017 inactive December 25, 2024 1 0:16am Irregular heart rhythm acute Ju 2024 8:47am HFrEF (heart failure with reduced ejection fraction) chronic February 04, 2025 8:47am Hyperlipidemia chronic February 04, 2025 8:47am Presence of stent in coronar y artery chronic February 04, 2025 8:47am H/O coronary artery bypass surgery 2001 inactive February 04, 2025 8:47am History of aortic valve replacement with bioprosthetic valve Dec, 2017 inactive February 04, 2025 8:47am Gallbladder anomaly acute February 04, 2025 10:42pm PVC (premature ventricular contraction) chronic February 04, 2025 10:42pm Acute hypoxic respiratory failure resolved February 04, 2025 10:42pm CHF exacerbation resolved January 10:42pm Elevated troponin resolved February 042024 10:42pm Shock resolved February 04 10:42pm Transaminitis resolved February 04, 2025 10:42pm Abdominal aortic aneurysm inactive February 04, 2025 10:42pm Chronic systolic (congestive ) heart failure inactive February 04, 2025 10:42pm H/O coronary artery bypass surgery 2001 inactive February 04, 2025 10:42pm History of aortic valve replacement with bioprosthetic valve Dec, 2017 inactive February 04, 2025 10:42pm Multifocal PVCs inactive January 10:42pm Thrombocytopenia inactive January 10:42pm Irregular heart rhythm acute 2024 9:59am HFrEF (heart failure with reduced ejection fraction) chronic February 11, 2025 9:59am Hyperlipidemia chronic February 11, 2025 9:59am Presence of stent in coronar y artery chronic February 11, 2025 9 :59am PVC (premature ventricular contraction) chronic February 11, 2025 9 :59am H/O coronary artery bypass surgery 2001 inactive February 11, 2025 9 :59am History of aortic valve replacement with bioprosthetic valve Dec, 2017 inactive February 11, 2025 9 :59am HFrEF (heart failure with reduced ejection fraction) chronic February 26, 2025 8:48am Hyperlipidemia chronic February 26, 2025 8:48am Presence of stent in coronar y artery chronic February 26, 2025 8:48am PVC (premature ventricular contraction) chronic February 26, 2025 8:48am H/O coronary artery bypass surgery 2001 inactive February 26, 2025 8:48am History of aortic valve replacement with bioprosthetic valve Dec, 2017 inactive February 26, 2025 8:48am HFrEF (heart failure with reduced ejection fraction) chronic 2024 9:50am Hyperlipidemia chronic March 9:50am Presence of stent in coronar y artery chronic April 07 9:50am PVC (premature ventricular contraction) chronic April 07 9:50am H/O coronary artery bypass surgery 2001 inactive April 07 9:50am History of aortic valve replacement with bioprosthetic valve Dec, 2017 inactive April 07 9:50am [facility] Work Phone: 1(519) 232-921612-27-2024 Evaluation note* Diagnosis Onset Date Resolution Status Admit Date Dyspnea on exertion chronic Decem 2023 9:17am H/O coronary artery bypass surgery 2001 chronic August 09, 024 9:17am HFrEF (heart failure with reduced ejection fraction) chronic Decem 2023 9:17am History of aortic valve replacement with bioprosthetic valve Dec, 2017 chronic August 09, 2 024 9:17am Hyperlipidemia chronic July 152023 9:17am Presence of stent in coronar y artery chronic August 09 9:17am [facility] Work Phone: Discharge summary Author Yeny Gabriel [facility] Note Date/Time February 08, 2025 2:41 pm [facility] Medical Records Department [address] [place] [id number] Discharge Summary 02/08/25 1418 MR#: [id number] Acct: [id number] Name: FLORIN VARGAS Rep #:[id number] : 1940 85 From: Yeny Gabriel DO PCP: Dr. Pedro Gonzalez, MD Status:ADM IN [id number] Providers Date of Admission: 02/04/25 Primary Care Physician: Dr. Pedro Gonzalez MD Consultations 02/05/25 00:02 Consult: Cardiology Routine Consulting Provider: Cj Gardiner Reason for Consult: HF Exac, elevated troponins EMERGENT Consult: No Notified: Yes Date Notified: 02/04/25 Time Notified: 22:45 Method of Notification: Text Consult: Stone Repairer / Pulmonary Medicine Routine Consulting Provider: Intensivists/Pulmonary Med Reason for Consult: Septic appearance complicated by resp failure, HF exac EMERGENT Consult: No Notified: Yes Date Notified: 02/04/25 Time Notified: 23:04 Method of Notification: Text 02/07/25 13:49 Consult: General Surgery Routine Consulting Provider: Glen Haywood Reason for Consult: possilbe cholecystitis. 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 Instructions: Until instructed to restart by cardiology clopidogrel 75 mg tablet 75 mg PO Q OTHER DAY #45 tabs 11/12/24 dapagliflozin propanediol 10 mg tablet 10 mg PO heart 02/05/25 amoxicillin 875 mg-potassium clavulanate 125 mg tablet 1 tab PO BID #22 tabs 02/08/25 furosemide 40 mg tablet 40 mg PO DAILY #30 tabs 02/08/25 metoprolol tartrate 25 mg tablet 12.5 mg (1/2 x 25 mg) PO DAILY #60 tabs 02/08/25 Hospital Course Operations None Procedures 2-D Echocardiogram, EKG and - (Chest x-ray/CT abdomen chest and pelvis/gallbladder ultrasound/HIDA scan) Summary of Care Provided Minutes Spent on Discharge: 45 Hospital Course: Mr. Vargas is an 85-year-old white male who presented to the emergency department at [facility] on 02/04/2025 with a chief complaint of dyspnea, fatigue, and malaise, with cough that had been progressively worsening. The dyspnea started about and he had increasing fatigue and malaise and was feeling worse about 48 hours prior to presentation. He was evaluated inthe outpatient office by cardiology on the day of presentation and was found to have some borderline blood pressure and patient revealed he had not been eating or drinking much and constipation. The plan was to change his diuretics but given his worsening status it prompted ED evaluation. Vital signs on presentation showed temperature 100.5, heart rate 98, blood pressure 94/63, respiratory was 21 and pulse ox was 93% on room air initially however he desatted to 89% then was placed on 2 L nasal cannula. CBC showed normal white count with anemia at 10.6 which is consistent with his baseline and thrombocytopenia at 82,000 again which is chronic. He had hyponatremia with a sodium of 125, elevated BUN and serum creatinine at 58 and 1.94 respectively. His initial troponin was elevated 108 with a delta of 111 and a 4-hour troponin of 114. And his BNP was 28,079. His UA was not suggestive of infection. EKG did not show signs of acute ischemia. A VBG was performed and showed normal pH at 7.47. Chest x-ray showed interstitial prominent markings with cardiogenic pulmonary edema. CT of the chest abdomen and pelvis showed trace bilateral pleural effusion, gallbladder wall thickening, abdominal aortic aneurysm at 4.5 cm, and a 4 mm solid pulmonary nodule. He was admitted to the hospital and cultures were obtained. He was placed on Zosyn given his gallbladder abnormalities and transaminitis on presentation. An echocardiogram was ordered due to his elevated BNP and troponin. Echocardiogram showed an EF of 25% with amildly dilated LV, moderate global hypokinesis of the LV stable bioprosthetic aortic valve and a pulmonary artery systolic pressure of 35 mmHg. Cardiology was consulted given these findings as his EF had dropped from previous. He was followed by cardiology during his hospital course and ultimately it was recommended that he continue Lasix 40 mg daily with as needed dosing for shortness of breath and start a low-dose beta-mohit with metoprolol 12.5 mg p.o. twice daily. Other goal-directed medical therapy is to be initiated as an outpatient per discussion with Dr. Castro prior to discharge and he would like the patient to see cardiology in the next week. I have given family instructions to call on Monday to set up an appointment. Right upper quadrant ultrasound and HIDA scan were performed. HIDA scan did show an ejection fraction of 10% but patient was not having any biliary colic. General surgery was consulted and recommended against any surgical intervention for gallbladder given symptoms. They felt he was okay for discharge as well. We will continue antibiotics to complete a course given concerns of infection of presentation andhis gallbladder abnormalities. He will complete course of Augmentin. I do honestly believe he probably had a distributive/cardiogenic shock or mixed shockon presentation given the other findings. He was evaluated by physical Occupational Therapy during his hospital course and did quite well. They felt that he was stable for discharge home. Home health care was recommended howeverfamily declined at this time. Prescriptions for the Augmentin, change in Lasix dosing, and metoprolol was sent to local pharmacy prior to discharge. Patient is to follow- up with cardiology as noted above and with general surgery within the next 2 weeks. Patient was able to be discharged home in stable condition on02/08/2025. Discharge diagnoses: Acute hypoxic respiratory failure Acute exacerbation of chronic HFrEF Combined shock Transaminitis Abnormal gallbladder function/imaging Chronic thrombocytopenia Elevated troponin secondary to demand ischemia from CHF PVCs BPH with obstruction CAD History of essential hypertension History of GI History of aortic valve stenosis status post bioprosthetic valve replacement History of hyperlipidemia Obesity Physical Exam Const alert, oriented x3, no apparent distress, no limitations and well nourished; Negative for average body habitus Constitutional Narrative: Morbidly obese, white Ep[employer] male, reclining, family at bedside, appears well, nontoxic, very pleasant General Appearance: cooperative, comfortable, well kempt and well developed Exam Limitations: no limitations Nutritional Appearance: obese HEENT normocephalic, head/scalp atraumatic and moist oral mucous membranes; Negative for hearing grossly normal bilaterally HEENT Narrative: Mallampati 2, no thrush, mild-moderate hearing loss Eyes conjunctivae normal Eyes Narrative: No scleral icterus Neck supple Neck Narrative: Trachea midline Resp normal respiratory effort, no retractions, no use of accessory muscles and clearto auscultation bilaterally Auscultation: Negative for rales, rhonchi or wheezes Cardio regular rate, regular rhythm, S1 normal heart sound, S2 normal heart sound, no murmurs, no rub, no gallops and no clicks GI normal to inspection, nondistended, normoactive bowel sounds, soft to palpation and non-tender Extremity no clubbing, cyanosis or edema Extremity Narrative: 2+ pedal pulses Skin no wounds, skin turgor normal and no jaundice Neuro oriented x3, moves all extremities and no focal motor deficits Speech: speech normal Psych affect normal Psych Narrative: very pleasant Weight / BMI Weight Weight: 89 kg Body Mass Index (BMI) 31.6 ABG / Lab / Microbiology Data 02/08/25 06:21 02/08/25 06:21 Laboratory: Laboratory Results - last 24 hr 02/08/25 06:21: WBC 5.7, RBC 3.51 L, Hgb 10.2 L, Hct 30.4 L, MCV 86.6, MCH 29.1,MCHC 33.6, RDW Std Deviation 46.5 H, RDW Coeff of [place] 14.6, Plt Count 124 L, MPV11.2, Immature Gran % (Auto) 0.300, Neut % (Auto) 51.1, Lymph % (Auto) 38.6, [place] % (Auto) 6.6, Eos % (Auto) 3.1, Baso % (Auto) 0.3, Absolute Neuts (auto) 2.9, Absolute Lymphs (auto) 2.21, Nucleated RBC % 0, Atypical Lymphocytes 2+, Platelet Estimate SLT DEC, Plt Morphology Comment GIANT, Polychromasia 1+, Sodium 137, Potassium 4.1, Chloride 105, Carbon Dioxide 20.4 L, Anion Gap 12, BUN 36 H, Creatinine 1.63 H, Estim Creat Clear Calc 34.62 L, Est GFR (MDRD) Non-Af 41 L, BUN/Creatinine Ratio 21.9 H, Glucose 96, Calcium 8.1, Total Bilirubin 0.62, AST 29, ALT 51 H, Alkaline Phosphatase 103, Total Protein 5.7 L, Albumin 3.1 L, Globulin 2.7, Albumin/Globulin Ratio 1.2 Microbiology: Microbiology 02/05/25 10:00 Sputum, Expectorated/Coughed Gram Stain - Final 02/05/25 10:00 Sputum, Expectorated/Coughed Respiratory Culture - Final Mixed normal respiratory ana rosa. No Streptococcus pneumoniae, beta-hemolytic Streptococcus or Staphylococcus aureus isolated. 02/04/25 18:37 Blood Culture (Wb) - Anticubital Left Blood Culture - Preliminary No growth in 48 hours. 02/04/25 18:30 Blood Culture (Wb) - Anticubital Right Blood Culture - Preliminary No growth in 48 hours. 02/04/25 18:58 Urine, Clean Catch Urine Culture - Final Culture exhibits no growth. 02/05/25 03:15 Mucosa - Nasopharyngeal Respiratory Panel (PCR) - Final D/C Instructions Discharge Diet: Low fat / Low cholesterol (Limit fluid to 1500 cc daily or less/2 to 3 g of salt or less daily) DC O2, CPAP, BIPAP Needs Home O2 Discharge instructions: No DC home with Oxygen: No Meaningful Use Info Meaningful Use Meaningful Use Diagnoses (Choose all that apply): CHF CHF SONIA/ARB ordered at discharge?: No Reason SONIA/ARB not ordered?: Hypotension Documented LVEF (%): 25 Ischemic Stroke Statin Dosing Therapy Reference: STATIN DOSE THERAPY REFERENCE: * Patients > 75 years receive moderate or high dose statin therapy. * Patients 75 years or YOUNGER should receive HIGH intensity statin dose unless contraindicated. You will be required to document reason for non-treatment if statin daily dose does not meet guidelines. HIGH DOSE STATIN THERAPY DAILY Atorvastatin > than or = to 40 mg Rosuvastatin > than or = to 20 mg Amlodipine + Atorvastatin > than or = to 2.5/40 mg Ezetimibe + Simvastatin 10/80 mg Simvastatin 80mg Discharge Plan Admission Admit Date/Time: 02/04/25 22:42 Primary Reason for Your Visit: Shortness of breath/malaise/fatigue Attending Provider: Yeny Gabriel Primary Care Provider: Pedro Gonzalez Consulting Providers: Rea Cancino; Cj Gardiner; Glen Haywood; Pedro Galvan Discharge Orders/Prescriptions Prescriptions: New furosemide 40 mg Tablet 40 mg PO DAILY Qty: 30 1RF Rx Instructions: Please take an extra dose if your shortness of breath worsens metoprolol tartrate 25 mg tablet 12.5 mg PO DAILY Qty: 60 0RF amoxicillin-pot clavulanate 875-125 mg tablet 1 tab PO BID Qty: 22 0RF Continued vitamin E 200 unit capsule 200 unit PO DAILY aspirin 81 mg tablet,chewable 81 mg PO Q OTHER DAY tamsulosin [Flomax] 0.4 mg capsule 0.4 mg PO QHS Qty: 30 0RF dapagliflozin propanediol 10 mg tablet 10 mg PO clopidogrel 75 mg tablet 75 mg PO Q OTHER DAY Qty: 45 3RF Held lisinopril 5 mg tablet 2.5 mg PO DAILY Hold Instructions: Until instructed to restart by cardiology Discontinued furosemide 40 mg tablet 80 mg PO QDAY Patient Comments: per dr. orellana take BID if SOB dapagliflozin propanediol [Farxiga] 10 mg tablet 10 mg PO DAILY Referrals / Follow Up: Cj Gardiner MD [Med Staff - Active Staff] - In 1 Week (Call on Monday for an appointment) Pedro Gonzalez MD [Primary Care Provider] - Within 1 Week Glen Haywood MD [Med Staff - Active Staff] - Within 2 Weeks (Call on Monday for an appointment) Disposition Disposition (needs filled in before D/C Order can be placed): Home, Self Care Charges/Coding Visit Charges Inpatient E&M: 97443 Disch Hosp >30min 02/08/25 1441 <Electronically signed by Yeny Gabriel DO> Cosigner Signature (if applicable): CC: Dr. Cj Gardiner MD; Dr. Pedro Gonzalez MD; Dr. Yeny Gabriel DO; Dr. Glen Haywood MD~ Signed 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 Atherosclerotic heart diseas e of [place] coronary artery without angina pectoris chronic Chronic systolic (congestive) heart failure chronic History of aortic valve repl acement with bioprosthetic valve Dec, 2017 chronic Hyperlipidemia chronic Presence of stent in coronary artery chronic Daytime hypersomnolence acut e 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 Atherosclerotic heart diseas e of [place] coronary artery without angina pectoris chronic Chronic systolic (congestive) heart failure chronic H/O coronary artery bypass surgery 2001 chronic History of aortic valve repl acement with bioprosthetic valve Dec, 2017 chronic Hyperlipidemia chronic Presence of stent in coronary artery chronic 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 Atherosclerotic heart diseas e of [place] coronary artery without angina pectoris chronic Chronic systolic (congestive) heart failure chronic H/O coronary artery bypass surgery 2001 chronic History of aortic valve repl acement with bioprosthetic valve Dec, 2017 chronic Hyperlipidemia chronic Presence of stent in coronary artery chronic GI (obstructive sleep apnea) acute Atherosclerotic heart diseas e of [place] coronary artery without angina pectoris chronic Chronic systolic (congestive) heart failure chronic H/O coronary artery bypass surgery 2001 chronic History of aortic valve repl acement with bioprosthetic valve Dec, 2017 chronic Hyperlipidemia chronic Presence of stent in coronary artery chronic [facility] Work Phone: History and physical note Author Rea Cancino [facility] Note Date/Time February 04, 2025 11:1 0pm [facility] Medical Records Department [address] [place] [id number] H&P Exam - Hospitalist 02/04/25 2239 MR#: [id number] Acct: [id number] Name: FLORIN VARGAS Rep #:[id number] : 1940 85 From: Rea Cancino MD PCP: Dr. Pedro Gonzalez MD Status:REG ER Location: ED HPI - General General Date of Admission: 02/04/25 Date of Service: 02/04/25 Chief Complaint: Dyspnea, fatigue, malaise, cough. HPI Narrative The patient is an 85 y/o M w/ PMHx: Chronic anemia, CKD stage III unclear subtype, Chronic Thrombocytopenia, Valvular Heart Disease, CAD s/p PCI and CABG,HTN, HLD, AAA, BPH with obstructive pathology, HFrEF, GI on BiPAP nightly who presents to the [facility] on 02/04/2025 with history of progressively worsening dyspnea starting on with increased fatigue and malaise, productive cough however he is felt worse over the last 48 hours with mild lightheadedness and worsening dyspnea especially with any exertion with evaluation by cardiologyservice on day of presentation with no concerning pulmonary sounds however he did have a low blood pressure at that time and did reveal that he had not been eating or drinking much and had recently complained of constipation although he did report positive flatus with no nausea or emesis with plan for change to diuretics but given his worsening status prompted ED evaluation to be cautious.Workup in the ED included T1 100.5, heart rate 98, BP 94/63, respiratory rate 21, initially 93% on room air however desaturated down to 89% with repeat vitals T99.5 Oral, heart rate 88, BP 83/68, respiratory rate 20, 97%on 2 L nasal cannula eventually transition to a BiPAP with most current vitals T99.5, heart rate 79, BP 90/71, respiratory rate 20, 98% on BiPAP, CBC with WBCsof 5.7, hemoglobin 10.6, MCV 85.4, platelet 82 with lymphopenia, coags with PT 16 otherwise not marked appearing, VBG with pH 7.47, PO237, bicarb 20, total CO221, O2 saturation 76%, CMP with sodium 125, chloride 92, carbon oxide 18.4, BUN/[place] 50/1.94, GFR 33, glucose 131, lactic acid 1.3, magnesium 2.1, AST/RBP485/84, alk phos 137, T. bili 0.66, initial troponin 108 with repeat delta troponin 111, 4-hour troponin pending upon request evaluation of patient, NT proBNP 43212, urinalysis noted cloudy, protein 30, occult blood 50, no marked urine WBCs or RBCs, negative nitrite, negative leukocyte esterase with 2+ bacteria but again no strong appearance of UTI, chest x-ray with prominent interstitial markings with enlarged cardiomediastinal silhouette concerning for cardiogenic pulmonary edema, CT chest/abdomen/pelvis with trace pleural effusions right greater than left, gallbladder wall thickening without any radiodense stones noted immediately nonspecific, abdominal aortic aneurysm measuring 4.5 cm, solid pulmonary nodule in the right middle lobe measuring 4 mm. Blood culture x 2 pending per ED, urine culture pending per ED. In the ED patient ministered Tylenol 650 mg p.o. x 1 as well as initiated on a Lasix drip. Garcia catheter placed per ED. He was initially also given 1.5L NS secondary to concern for sepsis but his work-up further notable for overload thus D/C. [facility] Medical History GI treated with BiPAP Valvular heart disease HTN (hypertension) CAD (coronary artery disease) HFrEF (heart failure with reduced ejection fraction) Daytime hypersomnolence Nonrheumatic aortic (valve) stenosis Hyperlipidemia Atherosclerotic heart disease of [place] coronary artery without angina pectoris Atherosclerosis of coronary artery bypass graft without angina pectoris (~03/29/22) Home Medications ?Medication ?Instructions ?Recorded ?Last Taken ?Type vitamin E 200 unit capsule 200 unit PO DAILY 09/14/20 Unknown History aspirin 81 mg chewable tablet 81 mg PO Q OTHER DAY 03/29/22 History tamsulosin 0.4 mg capsule (Flomax) 0.4 mg PO QHS #30 c aps 01/27/22 Unknown Rx lisinopril 5 mg tablet 2.5 mg PO DAILY 07/14/23 Unk nown History clopidogrel 75 mg tablet 75 mg PO Q OTHER DAY #45 tab s 11/12/24 Unknown Rx furosemide 40 mg tablet 40 mg PO QDAY #90 TABLETS Unknown Rx Allergy/AdvReac Type Severity Reaction Status Date / Time No Known Allergies Allergy Verified 02/04/25 18:00 Family History Father Myocardial infarction CVA (cerebral vascular accident) Mother CHF (congestive heart failure) Brother CAD (coronary artery disease) Cancer leukemia Surgical History Presence of coronary artery bypass graft stent (~03/29/22) History of arthroplasty of knee H/O coronary artery bypass surgery (~01/2002) History of left inguinal hernia repair (~1961) Presence of stent in coronary artery Postsurgical percutaneous transluminal coronary angioplasty (PTCA) status History of aortic valve replacement with bioprosthetic valve (~12/27/17) Social History adopted: No household members: spouse [...] safe at home: Yes ROS ROS Narrative Admission Review of Systems: CONSTITUTIONAL: No weight loss, fever, chills, + weakness or fatigue. In the EDpatient noted to be febrile although he denied previous history but did not beenchecking his temperature. HEENT: Eyes: No visual loss, blurred vision, double vision or yellow sclerae. Ears, Nose, Throat: No hearing loss, sneezing, congestion, runny nose or sore throat. SKIN: No rash or itching, lesions, wounds. CARDIOVASCULAR: + Increased edema, orthopnea. No chest pain, chest pressure or chest discomfort, palpitations, syncopal events. RESPIRATORY: + Dyspnea, worse with exertion, productive cough. Occasional wheezing. No hemoptysis. GASTROINTESTINAL: + Lack of appetite, constipation. No nausea, vomiting, diarrhea, abdominal pain, melena, BRBPR. GENITOURINARY: + BPH with chronic obstructive pathology. No dysuria, frequency,urgency. NEUROLOGICAL: No headache, dizziness, syncope, paralysis, ataxia, numbness or tingling in the extremities, focal weakness, change in bowel or bladder control,seizure. MUSCULOSKELETAL: + muscle, back pain, joint pain or stiffness. HEMATOLOGIC: + Chronic anemia, easy bleeding/bruising. LYMPHATICS: No enlarged nodes. No history of splenectomy. PSYCHIATRIC: No history of depression or anxiety. ENDOCRINOLOGIC: No reports of sweating, cold or heat intolerance. No polyuria orpolydipsia. ALLERGIES: No history of asthma, hives, eczema or rhinitis. Vital Signs Vital Signs Vital Signs: 02/04/25 17:56 02/04/25 17:58 02/04/25 18:04 Temperature 100.5 F H 100.5 F H Temperature Source Oral Oral Pulse Rate 98 97 Respiratory Rate 21 H 21 H Respiratory Effort Normal Non-Labored Respiratory Pattern Tachypnea Blood Pressure 94/63 94/63 Blood Pressure Mean 73 73 Pulse Ox 93 89 Oxygen Delivery Method Room Air Room Air Oxygen Flow Rate (L/min) Fraction of Inspired Oxygen (FIO2) 02/04/25 18:21 02/04/25 18:46 02/04/25 18:59 Temperature 100.2 F H Temperature Source Oral Pulse Rate 94 92 Respiratory Rate 26 H 23 H Respiratory Effort Respiratory Pattern Blood Pressure 97/69 97/69 Blood Pressure Mean 78 78 Pulse Ox 95 93 96 Oxygen Delivery Method Room Air Room Air Room Air Oxygen Flow Rate (L/min) Fraction of Inspired Oxygen (FIO2) 02/04/25 20:00 02/04/25 20:13 02/04/25 21:00 Temperature 99.5 F H 99.5 F H Temperature Source Oral Oral Pulse Rate 89 88 Respiratory Rate 18 20 H Respiratory Effort Respiratory Pattern Blood Pressure 92/59 L 83/68 L Blood Pressure Mean 70 73 Pulse Ox 98 98 97 Oxygen Delivery Method Nasal Cannula Nasal Cannula Nasal Cannula Oxygen Flow Rate (L/min) 2 2 2 Fraction of Inspired Oxygen (FIO2) 02/04/25 21:43 02/04/25 21:43 02/04/25 22:00 Temperature 99.5 F H Temperature Source Oral Pulse Rate 82 79 Respiratory Rate 23 H 20 H Respiratory Effort Respiratory Pattern Tachypnea Blood Pressure 98/71 Blood Pressure Mean 80 Pulse Ox 98 98 98 Oxygen Delivery Method Bi-pap Bi-pap Oxygen Flow Rate (L/min) Fraction of Inspired Oxygen (FIO2) 28 28 Weight Weight: 194 lb 10.691 oz Body Mass Index (BMI) 31.4 Physical Exam Narrative Physical Examination: General: Patient awake, alert, oriented to self and recent events, on the BiPAP,fatigued, currently respiratory status improved on BiPAP but blood pressure on monitor noted to be continuing to drop although on Lasix drip. Skin: Normal color, normal turgor, no icterus, no cyanosis except occasional stage ecchymoses, abrasions. HEENT: AT/NC, EOMI, PERRLA, mildly dry MM, BiPAP in place, unable to discern carotid bruit given referred sounds, unable to discern JVD given very thick mcgrath. Lungs: Significantly diminished, distant breath sounds, Rales at the bases, mildly increased respiratory rate but no distress currently is on BiPAP, improved status since initial ED arrival. Heart: Regular rate and rhythm; no gallop, rub audible, + SM. Abdomen: Soft, obese, NTTP, even the right upper quadrant and epigastric region,distant BS, difficult to discern distention HSM given habitus. Extremities: No cyanosis, no clubbing, mild pedal to distal trevizo edema. Neurological: Patient awake, alert, oriented as noted, cognitive function mildlydecreased given increased fatigue, on BiPAP as noted, pupils equally reactive tolight and accommodation, cranial nerves grossly normal, moving all 4 extremities, no focal deficits, strength severely globally decreased secondary to acute presentation. Psychiatric: Affect appears flat, fatigued, no acute evidence of depressive or anxiety feelings. Results Lab / Micro Data 02/04/25 18:30 02/04/25 17:57 Labs: Laboratory Results - last 24 hr 02/04/25 17:57: Sodium 125 L, Potassium 3.9, Chloride 92 L, Carbon Dioxide 18.4 L, Anion Gap 15, BUN 50 H, Creatinine 1.94 H, Estim Creat Clear Calc 28.98 L, Est GFR (MDRD) Non-Af 33 L, BUN/Creatinine Ratio 25.8 H, Glucose 131 H, Calcium 8.0, Magnesium 2.1, Total Bilirubin 0.66, AST 108 H, ALT 84 H, Alkaline Phosphatase 137 H, Troponin T High Sens 108 H*, [place] [address] H, Total Protein 5.9, Albumin 3.5, Globulin 2.4, Albumin/Globulin Ratio 1.5 02/04/25 18:30: WBC 5.7, RBC 3.63 L, Hgb 10.6 L, Hct 31.0 L, MCV 85.4, MCH 29.2,MCHC 34.2, RDW Std Deviation 43.8, RDW Coeff of [place] 13.9, Plt Count 82 L, MPV 11.4, Immature Gran % (Auto) 0.500, Neut % (Auto) 79.6 H, Lymph % (Auto) 12.3 L,[place] % (Auto) 7.4, Eos % (Auto) 0.0, Baso % (Auto) 0.2, Absolute Neuts (auto) 4.5, Absolute Lymphs (auto) 0.70 L, Nucleated RBC % 0, Differential Comment SCANNED, Platelet Estimate MOD DEC, PT 16.0 H, INR 1.3, APTT 32.2, Lactic Acid 1.3 02/04/25 18:58: Urine Color Yellow, Urine Clarity Sl. Cloudy, Urine pH 5.0, Ur Specific [place] 1.020, Urine Protein 30 H, Urine Glucose (UA) Normal, Urine Ketones Negative, Urine Occult Blood 50 H, Urine Nitrite Negative, Urine Bilirubin Negative, Urine Urobilinogen Normal, Ur Leukocyte Esterase Negative, Urine RBC 0-5 SEEN, Urine WBC 0 SEEN, Ur Squamous Epith Cells 0-5 SEEN, Ur RenalEpithelial Cell 0-5 SEEN, Amorphous Sediment 1+, Urine Bacteria 2+, Urine Mucus 0 SEEN 02/04/25 19:57: Troponin T Hi Sens 2 Hr 111 H* 02/04/25 21:56: Troponin T Hi Sens 4Hr 114 H* ABG Data ABG results: ABG 02/04/25 20:14 Specimen Type HEIDI Sample Site Not entered VBG pH 7.47 H VBG pO2 37 VBG HCO3 20 L VBG Total CO2 21 L VBG O2 Sat (Calc) 76 H VBG Base Excess -4 L POC Mix VBG pCO2 Pt Tmp 27.3 L O2 Delivery Device Room Air Imaging Radiology Impression Chest X-Ray 02/04/25 19:02 IMPRESSION: Prominent interstitial markings with enlarged cardiomediastinal silhouette, as can be seen with cardiogenic pulmonary edema. Reading Location: [id number] Chest/Abdomen/Pelvis CT 02/04/25 20:37 IMPRESSION: 1. Trace pleural effusions, [id number]-left. 2. Gallbladder wall thickening, without radiodense stones. This is a nonspecific finding and could be related to fluid overload. Consider ultrasound if patient has associated symptoms. 3. Abdominal aortic aneurysm measuring 4.5 cm. 4. Solid pulmonary nodule in the right middle lobe measuring 4 mm, consider CT chest in 12 months if patient is at high risk for malignancy per Fleischner society guidelines. Reading Location: [id number] Assessment & Plan Assessment/Plan (1) CHF exacerbation: PLAN: Plan The patient is an 85 y/o M w/ PMHx: Chronic anemia, CKD stage III unclear subtype, Chronic Thrombocytopenia, Valvular Heart Disease, CAD s/p PCI and CABG,HTN, HLD, AAA, BPH with obstructive pathology, HFrEF, GI on BiPAP nightly who presents to the [facility] on 02/04/2025 with history of progressively worsening dyspnea starting on with increased fatigue and malaise, productive cough however he is felt worse over the last 48 hours with mild lightheadedness and worsening dyspnea especially with any exertion with evaluation by cardiologyservice on day of presentation with no concerning pulmonary sounds however he did have a low blood pressure at that time and did reveal that he had not been eating or drinking much and had recently complained of constipation although he did report positive flatus with no nausea or emesis with plan for change to diuretics but given his worsening status prompted ED evaluation to be cautious. #1. Acute hypoxic respiratory failure, multifactorial, secondary to acutely decompensated HFrEF complicated by elevated cardiac troponin, consistent with type II NSTEMI suspected likely demand but uncertain complicated by #2, #3: Willadmit to the ICU given MAP upon ED evaluation has noted to be dropping, will request ICU physician consultation as well as Cardiology consultation, will continue BiPAP placement, maintain on cardiac telemetry, continue to obtain cardiac enzyme series, obtain serial EKGs as needed, unfortunately with hypotension diuresis is difficult but will diurese as able, will monitor I/Os, maintain on intake restriction, continue medical therapy, obtain TSH, normal magnesium level per ED. Most recent ECHO as noted 12/12/2024 however given presentation with significant enzyme elevation we will request repeat echocardiogram to be cautious. #2. Possible Acute Viral Syndrome (recent fever, cough, fatigue, general malaise: Patient with only pulmonary complaints, no marked abdominal complaints given #3, to be cautious as noted will maintain on BiPAP, wean as tolerated to room air although does use BiPAP nightly, will have as needed albuterol, will maintain on IV Zosyn pending evaluation for gallbladder assessment however transaminitis likely related with his volume overload but to be cautious we willcontinue until able to de-escalate, encourage head of bed, I-S, requested new sputum culture, will obtain full respiratory viral panel. Procalcitonin requested. UCX, blood culture x 2 pending per ED. #3. Mild transaminitis with questionably thickened GB: Lower suspicion for GB etiology. Admission CBC with WBC 5.7 with no marked left shift however patient is febrile, CMP with AST/LT 108/84, CT chest/abdomen/pelvis with gallbladder wall thickening measuring approximately 5 mm however no evidence of any radiodense stones, to be cautious will obtain gallbladder ultrasound, maintain on IV zosyn, allow clears only, maintain on IV PPI. #4. Abdominal aortic aneurysm: CT noting an abdominal aortic aneurysm measuring4.5 cm, noted CTA of the chest and abdomen 11/03/2017 with [facility] with a noted infrarenal abdominal aortic aneurysm 3.4 x 3.2 cm, encourage continued outpatient follow-up and evaluation as likely there has been more imaging in between. #5. Incidentally noted pulmonary nodule: Patient with CT scan notable for a solid pulmonary nodule in the right middle lobe measuring 4 mm, encourage continued outpatient follow-up CT imaging with PCP. #6. Chronic normocytic anemia: Admission hemoglobin 10.6, MCV 85.4, baseline hemoglobin primarily 10-11 range, continue to trend. #7. Acute hyponatremia, suspected secondary to hypervolemic presentation: Admission sodium 125, chloride 92, attempting judicious diuresis as noted above,magnesium normal per ED, TSH requested, will continue to trend CMP and if not correcting certainly investigate further. #8. Acute on chronic thrombocytopenia: Admission platelets 82, has vacillated, most recently 12/13/2024 platelets normal range 157 however previous to this had been in the 130-140 range, will cautiously continue heparin drip as noted, trendCBC. #9. Acute renal insufficiency/elevated creatinine on Chronic Kidney Disease Stage III, unclear subtype or GFR trending: Admission BUN/Cr 50/1.94, GFR 33, baseline renal function primarily 1.3-1.6 range, most recently 12/13/2024 creatinine 1.56, repeat BMP in AM. #10. Valvular heart disease: Status post AVR, noted to be bioprosthetic, 12/12/2024 echocardiogram with stage I diastolic dysfunction, mildly dilated LV, EF 35%, 6 mildly enlarged LA, moderate MVI, mild to moderate TBI, stable appearing bioprosthetic AV apparatus. #11. CAD: Status post PCI and CABG, will continue aspirin, Plavix, not on statin therapy per current list with no allergy noted thus will add at least moderate dose statin given age and presentation as noted #1. Not on beta-mohit therapy, will hold lisinopril given hypotension as noted, attempting to maximize usage for diuresis as noted above. #12. Hypertension: Given hypotensive presentation holding lisinopril, attempting usage as noted of IV Lasix diuresis as able. #13. Hyperlipidemia: Not on statin therapy, adding at least moderate dose givenpresentation #1, FLP in AM. #14. BPH with obstructive pathology: Will cautiously continue Flomax home regimen. #15. GI: Maintained on BIPAP. #16. DVT prophylaxis: Heparin drip. #17. CODE status: Patient and family is his medical decision-maker he notes. Discussed CODE status at length including difference between FULL code, DNR-CCA and DNR-CC status. Following discussions about the differences in these status, requested DNR CCA, no intubation and requested avoidance of any pressor therapy or central line placement. Different examples including respiratory failure isolated component discussed but did not want any intubation in the setting either. Advanced Care Planning Face to Face Time: 16 minutes. Charges/Coding Visit Charges Inpatient E&M: 98588 Init Hosp L3 Procedures Hospitalists Procedures: 60182 Advncd Care Plan 30 Min 02/04/25 2310 <Electronically signed by Rea Cancino MD> Cosigner Signature (if applicable): CC: Dr. Rea Cancino MD; Dr. Pedro Gonzalez MD~ Signed [facility] Work Phone: Hospital Discharge instructionsAdditional Instructions Double up your Lasix dose at home as discussed. Track your weights as discussed. Your evaluation in the Emergency Department did not reveal any acute reason for admission. However, I want to emphasize that you may be early in the course of a disease process or illness even if it is not present. For this reason you should follow-up within 24 hours for reevaluation with either your primary care physician or if necessary back here in the Emergency Department. You should return to the Emergency Department immediately if your symptoms worsen or new symptoms develop.[facility] Work Phone: Reason for referral (narrative)No reason for referral information availableWAvita Health System [facility] Work Phone: Summary Purpose Family History Relationship Condition Age at Onset Recorded Date/T rosalinda father Myocardial infarction Unknown Cerebrovascular accident (CVA) Unknown mother Congestive heart failure Unknown brother Coronary artery disease Unknown Malignant neoplasm Unknown Advance Directives Advance Directive Response Recorded Date/ Time Advance Directives No September 12, 2017 9:03am Living Will No June 20 9:57am Power of Mold Puller No June 20, 2019 9:57am Advance Directive Response Recorded Date/ Time Advance Directives No September 12, 2017 9:03am Living Will No January 27, 2022 10:27am Power of Mold Puller No January 27 10:27am Advance Directive Response Recorded Date/ Time Living Will No March 29 12:11pm Do you have a Healthcare Power of Mold Puller? No March 29, 2022 12:11pm Advance Directives No March 29, 2022 7:31am Advance Directive Response Recorded Date/ Time Do you have a Healthcare Power of Mold Puller? No December 12, 2024 10:13am Advance Directives No March 29, 2022 7:31am Advance Directive Response Recorded Date/ Time Do you have a Healthcare Power of Mold Puller? No December 12, 2024 10:13am Do you have a Healthcare Power of Mold Puller? No February 04, 2025 6:04pm Advance Directives No March 29, 2022 7:31am Advance Directive Response Recorded Date/ Time Do you have a Healthcare Power of Mold Puller? No December 12, 2024 10:13am Do you have a Healthcare Power of [employer] Puller? No 2025 12:03am Advance Directives No March 29, 2022 7:31am Advance Directive Response Recorded Date/ Time Do you have a Healthcare Power of [employer] Puller? No December 12, 2024 10:13am Do you have a Healthcare Power of [employer] Puller? No 2025 12:03am Do you have a Healthcare Power of [employer] Puller? No April 02, 2025 11:07am Advance Directives No March 29, 2022 7:31am Advance Directive Response Recorded Date/ Time Do you have a Healthcare Power of Mold Puller? No 2025 12:03am Do you have a Healthcare Power of Mold Puller? No April 02, 2025 11:07am Advance Directives No March 29, 2022 7:31am Hospital Course Note [facility] DISCHARGE SUMMARY NAME ACCOUNT SEX AGE ADMIT DISCHARGE PT MED. RECORD# NUMBER DATE DATE TYPE TIAN, [id number] Jackie 79 [birth year] Stephanie Courtney [id number] ROOM: [id number] DATE OF : 1940 DICTATING PHYSICIAN: Sil [...] see clinical notes Mark DAYTIME HYPERSOMNOLENCE; 12/28 CONF Reason for Visit Atherosclerosis of c oronary artery bypass graft without angina pectoris Atherosclerotic heart disease of [place] coronary artery without angina pectoris Chronic systolic (congestive) heart failure History of aortic valve replacement with bioprosthetic valve Hyperlipidemia Presence of stent in coronary artery Daytime hypersomnolence Atherosclerosis of coronary artery bypass graft without angina pectoris Atherosclerotic heart disease of [place] coronary artery without angina pectoris Chronic systolic [...] without angina pectoris Atherosclerotic heart disease of [place] coronary artery without angina pectoris Chronic systolic (congestive) heart failure H/O coronary artery bypass surgery History of aortic valve replacement with bioprosthetic valve Hyperlipidemia Presence of stent in coronary artery GI (obstructive sleep apnea) Chief Complaint Sleep study see clin ical notes Mark DAYTIME HYPERSOMNOLENCE; 12/28 CONF Sleep problems SOB E ORDERS GI; 01/28 LM & 01/31 CONF Reason for Visit Daytime hypersomnole nce Atherosclerosis of coronary artery bypass graft without angina pectoris Atherosclerotic heart disease of [place] coronary artery without angina pectoris Chronic systolic (congestive) heart failure H/O coronary artery bypass surgery History of aortic valve replacement with bioprosthetic valve Hyperlipidemia Presence of stent in coronary artery GI (obstructive sleep apnea) Chief Complaint Sleep study see clin ical notes MelDevora DAYTIME HYPERSOMNOLENCE; 12/28 CONF Sleep problems SOB E ORDERS GI; 01/28 LM & 01/31 CONF 5 M FU [place] CAD ASHD Reason for Visit Daytime hypersomnole nce Atherosclerosis of coronary artery bypass graft without angina pectoris Atherosclerotic heart disease of [place] coronary artery without angina pectoris Chronic systolic (congestive) heart failure H/O coronary artery bypass surgery History of aortic valve replacement with bioprosthetic valve Hyperlipidemia Presence of stent in coronary artery GI (obstructive sleep apnea) Atherosclerotic heart disease of [place] coronary artery without angina pectoris Chronic systolic [...] 9:17am H/O coronary artery bypass surgery Decem kyle 2023 9:17am HFrEF (heart failure with reduced [...] December 13, 2024 1 0:10am S/P HOSP ([facility] /) December 25, 2024 10:16 am Reason for [...] December 13, 2024 1 0:10am S/P HOSP ([facility] 5/) December 25, 2024 10:16 am 6 M [...] Presence of stent in coronary artery Jake e 2024 8:47am Chief Complaint Admit Date EORDERS November 04, 2024 9:4 2am E-ORDER November 18, 2024 8:04 am CHF December 12, 2024 9:20am Congestive heart failure December 12, 2024 9 :24am Congestive heart failure December 13, 2024 1 0:10am S/P HOSP ([facility] 12/13) December 25, 2024 10:16 am 6 M FU February 04, 2025 8:47 am general illness February 04, 2025 10:3 9pm RESP FAILURE, HF EXAC,? 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) December 25, 2024 10:16am Irregular heart rhythm February 04, 2025 8 :47am H/O coronary artery bypass surgery February 04, 2025 8:47am History of aortic valve replacement with bioprosthetic valve February 04, 2025 8:47am Hyperlipidemia February 04, 2025 8:47 am Presence of stent in coronary artery Jake e 2024 8:47am 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) February 04, 2025 8:47am CHF exacerbation February 04, 2025 10:4 2pm Chief Complaint Admit Date EONovember 04, 2024 9:4 2am E-ORDER November 18, 2024 8:04 am CHF December 12, 2024 9:20am Congestive heart failure December 12, 2024 9 :24am Congestive heart failure December 13, 2024 1 0:10am S/P HOSP ([facility] 5/2) December 25, 2024 10:16 am 6 M FU February 04, 2025 8:47 am general illness February 04, 2025 10:3 9pm RESP FAILURE, HF EXAC, ?VIRAL SYNDROME V S GB February 04, 2025 10:42pm RESP FAILURE, HF EXAC, ?VIRAL SYNDROME V S GB 2025 6:54am RESP FAILURE, HF EXAC, ?VIRAL SYNDROME V S GB February 06, 2025 7:05am RESP FAILURE, HF EXAC, ?VIRAL SYNDROME V S GB February 06, 2025 7:59am RESP FAILURE, HF EXAC, ?VIRAL SYNDROME V S GB February 06, 2025 8:39am RESP FAILURE, HF EXAC, ?VIRAL SYNDROME V S GB February 07, 2025 8:36am RESP FAILURE, HF EXAC, ?VIRAL SYNDROME V S GB February 07, 2025 9:56am RESP FAILURE, HF EXAC, ?VIRAL SYNDROME V S GB February 07, 2025 5:02pm RESP FAILURE, HF EXAC, ?VIRAL SYNDROME V S GB February 08, 2025 12:09pm RESP FAILURE, HF EXAC, ?VIRAL SYNDROME V S GB February 08, 2025 1:07pm RESP FAILURE, HF EXAC, ?VIRAL SYNDROME V S GB February 08, 2025 2:18pm Reason for Visit Admit Date Dyspnea on exertion December 12, 2024 9:20am Hypoxia December 12, 2024 9:20am SOB (shortness of breath) December 12, 2024 9:20am CHF exacerbation December 12, 2024 9:20am Dyspnea on exertion December 25, 2024 10:16 am H/O coronary artery bypass surgery December 122024 10:16am History of aortic valve replacement with bioprosthetic valve December 25, 2024 10:16am Hyperlipidemia December 25, 2024 10:16 am Presence of stent in coronary artery December 25, 2024 10:16am 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) December 25, 2024 10:16am Irregular heart rhythm February 04, 2025 8 :47am H/O coronary artery bypass surgery February 04, 2025 8:47am History of aortic valve replacement with bioprosthetic valve February 04, 2025 8:47am Hyperlipidemia February 04, 2025 8:47 am Presence of stent in coronary artery Jake e 2024 8:47am 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) February 04, 2025 8:47am Abdominal aortic aneurysm February 04 10:42pm Acute hypoxic respiratory failure January 132024 10:42pm Elevated troponin February 04, 2025 10:4 2pm Gallbladder anomaly February 04, 2025 10:4 2pm Multifocal PVCs February 04, 2025 10:4 2pm PVC (premature ventricular contraction) February 04, 2025 10:42pm Shock February 04, 2025 10:4 2pm Thrombocytopenia February 04, 2025 10:4 2pm Transaminitis February 04, 2025 10:4 2pm CHF exacerbation February 04, 2025 10:4 2pm Chronic systolic (congestive) heart fail ure February 04, 2025 10:42pm H/O coronary artery bypass surgery February 04, 2025 10:42pm History of aortic valve replacement with bioprosthetic valve February 04, 2025 10:42pm Chief Complaint Admit Date EORDERS November 04, 2024 9:4 2am E-ORDER November 18, 2024 8:04 am CHF December 12, 2024 9:20am Congestive heart failure December 12, 2024 9 :24am Congestive heart failure December 13, 2024 1 0:10am S/P HOSP ([facility] 5/) December 25, 2024 10:16 am 6 M FU February 04, 2025 8:47 am general illness February 04, 2025 10:3 9pm RESP FAILURE, HF EXAC, ?VIRAL SYNDROME V S GB February 04, 2025 10:42pm RESP FAILURE, HF EXAC, ?VIRAL SYNDROME V S GB 2025 6:54am RESP FAILURE, HF EXAC, ?VIRAL SYNDROME V S GB February 06, 2025 7:05am RESP FAILURE, HF EXAC, ?VIRAL SYNDROME V S GB February 06, 2025 7:59am RESP FAILURE, HF EXAC, ?VIRAL SYNDROME V S GB February 06, 2025 8:39am RESP FAILURE, HF EXAC, ?VIRAL SYNDROME V S GB February 07, 2025 8:36am RESP FAILURE, HF EXAC, ?VIRAL SYNDROME V S GB February 07, 2025 9:56am RESP FAILURE, HF EXAC, ?VIRAL SYNDROME V S GB February 07, 2025 5:02pm RESP FAILURE, HF EXAC, ?VIRAL SYNDROME V S GB February 08, 2025 12:09pm RESP FAILURE, HF EXAC, ?VIRAL SYNDROME V S GB February 08, 2025 1:07pm RESP FAILURE, HF EXAC, ?VIRAL SYNDROME V S GB February 08, 2025 2:18pm S/P [facility] (02/08) February 11, 2025 9:59a m VENTRICULAR PREMATURE DEPOLARIZATION Feb 11:14am Reason for Visit Admit Date Dyspnea on exertion December 12, 2024 9:20am Hypoxia December 12, 2024 9:20am SOB (shortness of breath) December 12, 2024 9:20am CHF exacerbation December 12, 2024 9:20am Dyspnea on exertion December 25, 2024 10:16 am H/O coronary artery bypass surgery December 122024 10:16am History of aortic valve replacement with bioprosthetic valve December 25, 2024 10:16am Hyperlipidemia December 25, 2024 10:16 am Presence of stent in coronary artery December 25, 2024 10:16am 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) December 25, 2024 10:16am Irregular heart rhythm February 04, 2025 8 :47am H/O coronary artery bypass surgery February 04, 2025 8:47am History of aortic valve replacement with bioprosthetic valve February 04, 2025 8:47am Hyperlipidemia February 04, 2025 8:47 am Presence of stent in coronary artery Jake 2024 8:47am 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) February 04, 2025 8:47am Abdominal aortic aneurysm February 04 10:42pm Acute hypoxic respiratory failure January [id number] 10:42pm Elevated troponin February 04, 2025 10:4 2pm Gallbladder anomaly February 04, 2025 10:4 2pm Multifocal PVCs February 04, 2025 10:4 2pm PVC (premature ventricular contraction) February 04, 2025 10:42pm Shock February 04, 2025 10:4 2pm Thrombocytopenia February 04, 2025 10:4 2pm Transaminitis February 04, 2025 10:4 2pm CHF exacerbation February 04, 2025 10:4 2pm Chronic systolic (congestive) heart fail ure February 04, 2025 10:42pm H/O coronary artery bypass surgery February 04, 2025 10:42pm History of aortic valve replacement with bioprosthetic valve February 04, 2025 10:42pm Irregular heart rhythm February 11, 2025 9: 59am PVC (premature ventricular contraction) February 11, 2025 9:59am H/O coronary artery bypass surgery February 11, 2025 9:59am History of aortic valve replacement with bioprosthetic valve February 11, 2025 9:59am Hyperlipidemia February 11, 2025 9:59a m Presence of stent in coronary artery Marcos 2024 9:59am 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) February 11, 2025 9:59am Reason for Visit Admit Date Dyspnea on exertion December 12, 2024 9:20am Hypoxia December 12, 2024 9:20am SOB (shortness of breath) December 12, 2024 9:20am CHF exacerbation December 12, 2024 9:20am Dyspnea on exertion December 25, 2024 10:16 am 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) December 25, 2024 10:16am Hyperlipidemia December 25, 2024 10:16 am Presence of stent in coronary artery December 25, 2024 10:16am H/O coronary artery bypass surgery December 122024 10:16am History of aortic valve replacement with bioprosthetic valve December 25, 2024 10:16am Irregular heart rhythm February 04, 2025 8 :47am 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) February 04, 2025 8:47am Hyperlipidemia February 04, 2025 8:47 am Presence of stent in coronary artery Jake 2024 8:47am H/O coronary artery bypass surgery February 04, 2025 8:47am History of aortic valve replacement with bioprosthetic valve February 04, 2025 8:47am Gallbladder anomaly February 04, 2025 10:4 2pm PVC (premature ventricular contraction) February 04, 2025 10:42pm Acute hypoxic respiratory failure January [id number] 10:42pm CHF exacerbation February 04, 2025 10:4 2pm Elevated troponin February 04, 2025 10:4 2pm Shock February 04, 2025 10:4 2pm Transaminitis February 04, 2025 10:4 2pm Abdominal aortic aneurysm February 04 10:42pm Chronic systolic (congestive) heart fail ure February 04, 2025 10:42pm H/O coronary artery bypass surgery February 04, 2025 10:42pm History of aortic valve replacement with bioprosthetic valve February 04, 2025 10:42pm Multifocal PVCs February 04, 2025 10:4 2pm Thrombocytopenia February 04, 2025 10:4 2pm Irregular heart rhythm February 11, 2025 9: 59am 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) February 11, 2025 9:59am Hyperlipidemia February 11, 2025 9:59a m Presence of stent in coronary artery Feb 9:59am PVC (premature ventricular contraction) February 11, 2025 9:59am H/O coronary artery bypass surgery February 11, 2025 9:59am History of aortic valve replacement with bioprosthetic valve February 11, 2025 9:59am Chief Complaint Admit Date EORDERS November 04, 2024 9:4 2am E-ORDER November 18, 2024 8:04 am CHF December 12, 2024 9:20am Congestive heart failure December 12, 2024 9 :24am Congestive heart failure December 13, 2024 1 0:10am S/P HOSP ([facility] 5/) December 25, 2024 10:16 am 6 M FU February 04, 2025 8:47 am general illness February 04, 2025 10:3 9pm RESP FAILURE, HF EXAC, ?VIRAL SYNDROME V S GB February 04, 2025 10:42pm RESP FAILURE, HF EXAC, ?VIRAL SYNDROME V S GB 2025 6:54am RESP FAILURE, HF EXAC, ?VIRAL SYNDROME V S GB February 06, 2025 7:05am RESP FAILURE, HF EXAC, ?VIRAL SYNDROME V S GB February 06, 2025 7:59am RESP FAILURE, HF EXAC, ?VIRAL SYNDROME V S GB February 06, 2025 8:39am RESP FAILURE, HF EXAC, ?VIRAL SYNDROME V S GB February 07, 2025 8:36am RESP FAILURE, HF EXAC, ?VIRAL SYNDROME V S GB February 07, 2025 9:56am RESP FAILURE, HF EXAC, ?VIRAL SYNDROME V S GB February 07, 2025 5:02pm RESP FAILURE, HF EXAC, ?VIRAL SYNDROME V S GB February 08, 2025 12:09pm RESP FAILURE, HF EXAC, ?VIRAL SYNDROME V S GB February 08, 2025 1:07pm RESP FAILURE, HF EXAC, ?VIRAL SYNDROME V S GB February 08, 2025 2:18pm S/P [facility] (02/08) February 11, 2025 9:59a m VENTRICULAR PREMATURE DEPOLARIZATION Feb 11:14am 2-4 wk fu February 26, 2025 8:48 am Reason for Visit Admit Date Dyspnea on exertion December 12, 2024 9:20am Hypoxia December 12, 2024 9:20am SOB (shortness of breath) December 12, 2024 9:20am CHF exacerbation December 12, 2024 9:20am Dyspnea on exertion December 25, 2024 10:16 am 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) December 25, 2024 10:16am Hyperlipidemia December 25, 2024 10:16 am Presence of stent in coronary artery December 25, 2024 10:16am H/O coronary artery bypass surgery December 122024 10:16am History of aortic valve replacement with bioprosthetic valve December 25, 2024 10:16am Irregular heart rhythm February 04, 2025 8 :47am 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) February 04, 2025 8:47am Hyperlipidemia February 04, 2025 8:47 am Presence of stent in coronary artery Jake 2024 8:47am H/O coronary artery bypass surgery February 04, 2025 8:47am History of aortic valve replacement with bioprosthetic valve February 04, 2025 8:47am Gallbladder anomaly February 04, 2025 10:4 2pm PVC (premature ventricular contraction) February 04, 2025 10:42pm Acute hypoxic respiratory failure January 132024 10:42pm CHF exacerbation February 04, 2025 10:4 2pm Elevated troponin February 04, 2025 10:4 2pm Shock February 04, 2025 10:4 2pm Transaminitis February 04, 2025 10:4 2pm Abdominal aortic aneurysm February 04 10:42pm Chronic systolic (congestive) heart fail ure February 04, 2025 10:42pm H/O coronary artery bypass surgery February 04, 2025 10:42pm History of aortic valve replacement with bioprosthetic valve February 04, 2025 10:42pm Multifocal PVCs February 04, 2025 10:4 2pm Thrombocytopenia February 04, 2025 10:4 2pm Irregular heart rhythm February 11, 2025 9: 59am 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) February 11, 2025 9:59am Hyperlipidemia February 11, 2025 9:59a m Presence of stent in coronary artery Feb 9:59am PVC (premature ventricular contraction) February 11, 2025 9:59am H/O coronary artery bypass surgery February 11, 2025 9:59am History of aortic valve replacement with bioprosthetic valve February 11, 2025 9:59am 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) February 26, 2025 8:48am Hyperlipidemia February 26, 2025 8:48 am Presence of stent in coronary artery Feb 8:48am PVC (premature ventricular contraction) February 26, 2025 8:48am H/O coronary artery bypass surgery February 26, 2025 8:48am History of aortic valve replacement with bioprosthetic valve February 26, 2025 8:48am Chief Complaint Admit Date CHF December 12, 2024 9:20am Congestive heart failure December 12, 2024 9 :24am Congestive heart failure December 13, 2024 1 0:10am S/P HOSP ([facility] 12/13) December 25, 2024 10:16 am 6 M FU February 04, 2025 8:47 am general illness February 04, 2025 10:3 9pm RESP FAILURE, HF EXAC, ?VIRAL SYNDROME V S GB February 04, 2025 10:42pm RESP FAILURE, HF EXAC, ?VIRAL SYNDROME V S GB 2025 6:54am RESP FAILURE, HF EXAC, ?VIRAL SYNDROME V S GB February 06, 2025 7:05am RESP FAILURE, HF EXAC, ?VIRAL SYNDROME V S GB February 06, 2025 7:59am RESP FAILURE, HF EXAC, ?VIRAL SYNDROME V S GB February 06, 2025 8:39am RESP FAILURE, HF EXAC, ?VIRAL SYNDROME V S GB February 07, 2025 8:36am RESP FAILURE, HF EXAC, ?VIRAL SYNDROME V S GB February 07, 2025 9:56am RESP FAILURE, HF EXAC, ?VIRAL SYNDROME V S GB February 07, 2025 5:02pm RESP FAILURE, HF EXAC, ?VIRAL SYNDROME V S GB February 08, 2025 12:09pm RESP FAILURE, HF EXAC, ?VIRAL SYNDROME V S GB February 08, 2025 1:07pm RESP FAILURE, HF EXAC, ?VIRAL SYNDROME V S GB February 08, 2025 2:18pm S/P [facility] (02/08) February 11, 2025 9:59a m VENTRICULAR PREMATURE DEPOLARIZATION Feb 11:14am PVC'S February 11, 2025 11:26 am 2-4 wk fu February 26, 2025 8:48 am sob April 02, 2025 10 :48am Chief Complaint Admit Date CHF December 12, 2024 9:20am Congestive heart failure December 12, 2024 9 :24am Congestive heart failure December 13, 2024 1 0:10am S/P HOSP ([facility] 12/13) December 25, 2024 10:16 am 6 M FU February 04, 2025 8:47 am general illness February 04, 2025 10:3 9pm RESP FAILURE, HF EXAC, ?VIRAL SYNDROME V S GB February 04, 2025 10:42pm RESP FAILURE, HF EXAC, ?VIRAL SYNDROME V S GB 2025 6:54am RESP FAILURE, HF EXAC, ?VIRAL SYNDROME V S GB February 06, 2025 7:05am RESP FAILURE, HF EXAC, ?VIRAL SYNDROME V S GB February 06, 2025 7:59am RESP FAILURE, HF EXAC, ?VIRAL SYNDROME V S GB February 06, 2025 8:39am RESP FAILURE, HF EXAC, ?VIRAL SYNDROME V S GB February 07, 2025 8:36am RESP FAILURE, HF EXAC, ?VIRAL SYNDROME V S GB February 07, 2025 9:56am RESP FAILURE, HF EXAC, ?VIRAL SYNDROME V S GB February 07, 2025 5:02pm RESP FAILURE, HF EXAC, ?VIRAL SYNDROME V S GB February 08, 2025 12:09pm RESP FAILURE, HF EXAC, ?VIRAL SYNDROME V S GB February 08, 2025 1:07pm RESP FAILURE, HF EXAC, ?VIRAL SYNDROME V S GB February 08, 2025 2:18pm S/P [facility] (02/08) February 11, 2025 9:59a m VENTRICULAR PREMATURE DEPOLARIZATION Feb 11:14am PVC'S February 11, 2025 11:26 am 2-4 wk fu February 26, 2025 8:48 am sob April 02, 2025 10 :48am S/P ER [facility] 04/02April 07, 2025 9: 50am Reason for Visit Admit Date Dyspnea on exertion December 12, 2024 9:20am Hypoxia December 12, 2024 9:20am SOB (shortness of breath) December 12, 2024 9:20am CHF exacerbation December 12, 2024 9:20am Dyspnea on exertion December 25, 2024 10:16 am 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) December 25, 2024 10:16am Hyperlipidemia December 25, 2024 10:16 am Presence of stent in coronary artery December 25, 2024 10:16am H/O coronary artery bypass surgery December 122024 10:16am History of aortic valve replacement with bioprosthetic valve December 25, 2024 10:16am Irregular heart rhythm February 04, 2025 8 :47am 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) February 04, 2025 8:47am Hyperlipidemia February 04, 2025 8:47 am Presence of stent in coronary artery Jake 2024 8:47am H/O coronary artery bypass surgery February 04, 2025 8:47am History of aortic valve replacement with bioprosthetic valve February 04, 2025 8:47am Gallbladder anomaly February 04, 2025 10:4 2pm PVC (premature ventricular contraction) February 04, 2025 10:42pm Acute hypoxic respiratory failure January 132024 10:42pm CHF exacerbation February 04, 2025 10:4 2pm Elevated troponin Harriet 24th, 2025 10:4 2pm Shock February 04, 2025 10:4 2pm Transaminitis February 04, 2025 10:4 2pm Abdominal aortic aneurysm February 04 10:42pm Chronic systolic (congestive) heart fail ure February 04, 2025 10:42pm H/O coronary artery bypass surgery February 04, 2025 10:42pm History of aortic valve replacement with bioprosthetic valve February 04, 2025 10:42pm Multifocal PVCs February 04, 2025 10:4 2pm Thrombocytopenia February 04, 2025 10:4 2pm Irregular heart rhythm February 11, 2025 9: 59am 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) February 11, 2025 9:59am Hyperlipidemia February 11, 2025 9:59a m Presence of stent in coronary artery Feb 9:59am PVC (premature ventricular contraction) February 11, 2025 9:59am H/O coronary artery bypass surgery February 11, 2025 9:59am History of aortic valve replacement with bioprosthetic valve February 11, 2025 9:59am 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) February 26, 2025 8:48am Hyperlipidemia February 26, 2025 8:48 am Presence of stent in coronary artery Feb 8:48am PVC (premature ventricular contraction) February 26, 2025 8:48am H/O coronary artery bypass surgery February 26, 2025 8:48am History of aortic valve replacement with bioprosthetic valve February 26, 2025 8:48am 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) April 07, 2025 9:50am Hyperlipidemia April 07, 2025 9: 50am Presence of stent in coronary artery Mar us2024 9:50am PVC (premature ventricular contraction) April 07, 2025 9:50am H/O coronary artery bypass surgery Aug t 2024 9:50am History of aortic valve replacement with bioprosthetic valve April 07, 2025 9:50am Chief Complaint Admit Date 6 M FU February 04, 2025 8:47 am general illness February 04, 2025 10:3 9pm RESP FAILURE, HF EXAC, ?VIRAL SYNDROME V S GB February 04, 2025 10:42pm RESP FAILURE, HF EXAC, ?VIRAL SYNDROME V S GB 2025 6:54am RESP FAILURE, HF EXAC, ?VIRAL SYNDROME V S GB February 06, 2025 7:05am RESP FAILURE, HF EXAC, ?VIRAL SYNDROME V S GB February 06, 2025 7:59am RESP FAILURE, HF EXAC, ?VIRAL SYNDROME V S GB February 06, 2025 8:39am RESP FAILURE, HF EXAC, ?VIRAL SYNDROME V S GB February 07, 2025 8:36am RESP FAILURE, HF EXAC, ?VIRAL SYNDROME V S GB February 07, 2025 9:56am RESP FAILURE, HF EXAC, ?VIRAL SYNDROME V S GB February 07, 2025 5:02pm RESP FAILURE, HF EXAC, ?VIRAL SYNDROME V S GB February 08, 2025 12:09pm RESP FAILURE, HF EXAC, ?VIRAL SYNDROME V S GB February 08, 2025 1:07pm RESP FAILURE, HF EXAC, ?VIRAL SYNDROME V S GB February 08, 2025 2:18pm S/P [facility] (02/08) February 11, 2025 9:59a m VENTRICULAR PREMATURE DEPOLARIZATION Feb 11:14am PVC'S February 11, 2025 11:26 am 2-4 wk fu February 26, 2025 8:48 am sob April 02, 2025 10 :48am S/P ER [facility] 04/02April 07, 2025 9: 50am Reason for Visit Admit Date Irregular heart rhythm February 04, 2025 8 :47am 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) February 04, 2025 8:47am Hyperlipidemia February 04, 2025 8:47 am Presence of stent in coronary artery Jake 2024 8:47am H/O coronary artery bypass surgery February 04, 2025 8:47am History of aortic valve replacement with bioprosthetic valve February 04, 2025 8:47am Gallbladder anomaly February 04, 2025 10:4 2pm PVC (premature ventricular contraction) February 04, 2025 10:42pm Acute hypoxic respiratory failure January 132024 10:42pm CHF exacerbation February 04, 2025 10:4 2pm Elevated troponin February 04, 2025 10:4 2pm Shock Harriet 24th, 2025 10:4 2pm Transaminitis February 04, 2025 10:4 2pm Abdominal aortic aneurysm February 04 10:42pm Chronic systolic (congestive) heart fail ure February 04, 2025 10:42pm H/O coronary artery bypass surgery February 04, 2025 10:42pm History of aortic valve replacement with bioprosthetic valve February 04, 2025 10:42pm Multifocal PVCs February 04, 2025 10:4 2pm Thrombocytopenia February 04, 2025 10:4 2pm Irregular heart rhythm February 11, 2025 9: 59am 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) February 11, 2025 9:59am Hyperlipidemia February 11, 2025 9:59a m Presence of stent in coronary artery Feb 9:59am PVC (premature ventricular contraction) February 11, 2025 9:59am H/O coronary artery bypass surgery February 11, 2025 9:59am History of aortic valve replacement with bioprosthetic valve February 11, 2025 9:59am 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) February 26, 2025 8:48am Hyperlipidemia February 26, 2025 8:48 am Presence of stent in coronary artery Feb 8:48am PVC (premature ventricular contraction) February 26, 2025 8:48am H/O coronary artery bypass surgery February 26, 2025 8:48am History of aortic valve replacement with bioprosthetic valve February 26, 2025 8:48am 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) April 07, 2025 9:50am Hyperlipidemia April 07, 2025 9: 50am Presence of stent in coronary artery Mar ust 2024 9:50am PVC (premature ventricular contraction) April 07, 2025 9:50am H/O coronary artery bypass surgery Augus t 2024 9:50am History of aortic valve replacement with bioprosthetic valve April 07, 2025 9:50am Additional Source Comments (unrecognized sect ion and content) No Status Records FoundNo Status Records FoundNo Status Records FoundNo Status Records FoundNo Status Records Found INFORMATION SOURCE (unrecogn ized section and content) DATE CREATED AUTHOR 03/26/2018 [facility] DATE CREATED AUTHOR AUTHOR'S ORGANIZ ATION 05/12/2019 [facility] DATE CREATED AUTHOR AUTHOR'S ORGANIZ ATION 09/17/2020 [facility] DATE CREATED AUTHOR AUTHOR'S ORGANIZ ATION 10/05/2020 [facility] ([place]) DATE CREATED AUTHOR AUTHOR'S ORGANIZ ATION 05/04/2025 [facility] Goals (unrecognized section and content) Goals may [...] Status: Active Member Role Status Dates Dr. Pedro Gonzalez MD Family Provider Active Dr. Pedro Gonzalez MD Primary Care Provider Active Team Status: Inactive Member Role Status Dates Dr. Pedro DALAL MD Primary Care Provider Active Start: August 09, 2024 End: August 09, 2024 Dr. Pedro DALAL MD Referring Provider Active Start: August 09, 2024 End: August 09, 2024 Andrzej Marinelli NP, SENIOR ENVIRONMENTAL ENGINEER-C Attending Provider Active S tart: August 09, 2024 End: August 09, 2024 Team Status: Inactive Member Role Status Dates Dr. Pedro DALAL MD Primary Care Provider Active Start: August 09, 2024 End: August 09, 2024 Andrzej Marinelli NP, SENIOR ENVIRONMENTAL ENGINEER-C Attending Provider Active S tart: August 09, 2024 End: August 09, 2024 Andrzej Marinelli NP SENIOR ENVIRONMENTAL ENGINEER-C Referring Provider Active S tart: August 09, 2024 End: August 09, 2024 Team Status: Inactive Member Role Status Dates Dr. Pedro Gonzalez MD Primary Care Provider Active Start: November 04, 2024 End: November 04, 2024 Karo Sewell NP SENIOR ENVIRONMENTAL ENGINEER-C Attending Provider Active S tart: November 04, 2024 End: November 04, 2024 Karo Sewell NP SENIOR ENVIRONMENTAL ENGINEER-C Referring Provider Active S tart: November 04, 2024 End: November 04, 2024 Team Status: Inactive Member Role Status Dates Dr. Pedro Gonzalez MD Primary Care Provider Active Start: November 18, 2024 End: November 18, 2024 Karo Sewell SENIOR ENVIRONMENTAL ENGINEER, SENIOR ENVIRONMENTAL ENGINEER-C Attending Provider Active S tart: November 18, 2024 End: November 18, 2024 Karo Sewell SENIOR ENVIRONMENTAL ENGINEER, SENIOR ENVIRONMENTAL ENGINEER-C Referring Provider Active S tart: November 18, 2024 End: November 18, 2024 Team Status: Active Member Role Status Dates Dr. Pedro Gonzalez MD Primary Care Provider Active Team Status: Inactive Member Role Status Dates Dr. Pedro Gonzalez MD Primary Care Provider Active Start: [...] Status: Active Member Role Status Dates Dr. Pedro Gonzalez MD Primary Care Provider Active Start: December 12, 2024 Jose Lopez MD Emergency Provider Active Star t: December 12, 2024 Dr. Gaurang Cortes MD Admit Provider Active Star t: December 12, 2024 Dr. Gaurang Cortes MD Attending Provider Active Start: December 12, 2024 Dr. Gaurang Cortes MD Other Provider Active Star t: December 12, 2024 Team Status: Active Member Role Status Dates Dr. Pedro Gonzalez MD Primary Care Provider Active Start: December 12, 2024 Dr. Aden Knutson MD Attending Provider Active Start: December 12, 2024 Team Status: Active Member Role Status Dates Dr. Pedro Gonzalez MD Primary Care Provider Active Start: [...] Status: Inactive Member Role Status Dates Dr. Pedro Gonzalez MD Primary Care Provider Active Start: December 25, 2024 End: December 25, 2024 Dr. Pedro Gonzalez MD Referring Provider Active St art: December 25, 2024 End: December 25, 2024 Andrzej Marinelli SENIOR ENVIRONMENTAL ENGINEER, SENIOR ENVIRONMENTAL ENGINEER-C Attending Provider Active S tart: December 25, 2024 End: December 25, 2024 Team Status: Inactive Member Role Status Dates Dr. Pedro DALAL MD Referring Provider Active Start: February 04, 2025 End: February 04, 2025 Andrzej Marinelli SENIOR ENVIRONMENTAL ENGINEER, SENIOR ENVIRONMENTAL ENGINEER-C Attending Provider Active S tart: February 04, 2025 End: February 04, 2025 Dr. Pedro Gonzalez MD Primary Care Provider Active Start: February 04, 2025 End: February 04, 2025 Team Status: Active Member Role Status Dates Dr. Pedro Gonzalez MD Primary Care Provider Active Start: February 04, 2025 Dr. Maryanne Emanuel DO Emergency Provider Active Start: February 04, 2025 Dr. Rea Cancino MD Attending Provider Active Start: February 04, 2025 Team Status: Active Member Role Status Dates Dr. Pedro Gonzalez MD Primary Care Provider Active Start: February 04, 2025 Dr. Maryanne Emanuel DO Emergency Provider Active Start: February 04, 2025 Dr. Rea Cancino MD Admit Provider Active St art: February 04, 2025 Dr. Rea Cancino MD Attending Provider Active Start: February 04, 2025 Dr. Rea Cancino MD Referring Provider Active Start: February 04, 2025 Dr. Cj Gardiner MD Other Provider Active Start : February 04, 2025 Dr. Mark Samuel MD Other Provider Active Start: February 04, 2025 Dr. Shaheed Gleason MD Other Provider Active Start: February 04, 2025 Dr. Dallin Mclain MD Other Provider Active Star t: February 04, 2025 Dr. Lang Guzman DO Other Provider Active Start : February 04, 2025 Dr. Gaurang Garcia MD Other Provider Active Sta rt: February 04, 2025 Dr. Pillo Blue MD Other Provider Active St art: February 04, 2025 Dr. Cuba Crooks MD Other Provider Active S tart: February 04, 2025 Dr. Elizabeth Gunn MD Other Provider Active Start: February 04, 2025 Dr. Michael Barrientos MD Other Provider Active Start : February 04, 2025 Dr. Fox Salguero MD Other Provider Active Start: February 04, 2025 Dr. Ron Vegas MD Other Provider Active Start : February 04, 2025 Dr. Tiara Gimenez MD Other Provider Active Star t: February 04, 2025 Dr. Diego Esquivel MD Other Provider Active Sta rt: February 04, 2025 Dr. Denise Benson MD Other Provider Active Sta rt: February 04, 2025 Dr. Heath Zendejas MD Other Provider Active Star t: February 04, 2025 Dr. bD King MD Other Provider Active St art: February 04, 2025 Dr. Mohit Guevara MD Other Provider Active Star t: February 04, 2025 Dr. Delon Jarrell DO Other Provider Active St art: February 04, 2025 Dr. Gagandeep Olmos MD Other Provider Active Start: February 04, 2025 Dr. Crow Baptiste MD Other Provider Active St art: February 04, 2025 Dr. Wilmer Chong DO Other Provider Active Start: February 04, 2025 Dr. Long Neumann MD Other Provider Active Star t: February 04, 2025 Dr. Stephon Mishra MD Other Provider Active Sta rt: February 04, 2025 Team Status: Active Member Role/Relationship Status Dates Dr. Pedro Gonzalez MD Primary Care Provider Active Team Status: Inactive Member Role/Relationship Status Dates Dr. Pedro Gonzalez MD Primary Care Provider Active Start: November 04, 2024 End: November 04, 2024 Karo Sewell SENIOR ENVIRONMENTAL ENGINEER, SENIOR ENVIRONMENTAL ENGINEER-C Attending Provider Active S tart: November 04, 2024 End: November 04, 2024 Karo Sewell SENIOR ENVIRONMENTAL ENGINEER, SENIOR ENVIRONMENTAL ENGINEER-C Referring Provider Active S tart: November 04, 2024 End: November 04, 2024 Team Status: Inactive Member Role/Relationship Status Dates Dr. Pedro Gonzalez MD Primary Care Provider Active Start: November 18, 2024 End: November 18, 2024 Karo Sewell SENIOR ENVIRONMENTAL ENGINEER, SENIOR ENVIRONMENTAL ENGINEER-C Attending Provider Active S tart: November 18, 2024 End: November 18, 2024 Karo Sewell SENIOR ENVIRONMENTAL ENGINEER, SENIOR ENVIRONMENTAL ENGINEER-C Referring Provider Active S tart: November 18, 2024 End: November 18, 2024 Team Status: Inactive Member Role/Relationship Status Dates Dr. Pedro Gonzalez MD Primary Care Provider Active Start: [...] December 13, 2024 Team Status: Active Member Role/Relationship Status Dates Dr. Pedro Gonzalez MD Primary Care Provider Active Start: December 12, 2024 Jose Lopez MD Emergency Provider Active Star t: December 12, 2024 Dr. Gaurang Cortes MD Admit Provider Active Star t: December 12, 2024 Dr. Gaurang Cortes MD Attending Provider Active Start: December 12, 2024 Dr. Gaurang Cortes MD Other Provider Active Star t: December 12, 2024 Team Status: Active Member Role/Relationship Status Dates Dr. Pedro Gonzalez MD Primary Care Provider Active Start: December 12, 2024 Dr. Aden Knutson MD Attending Provider Active Start: December 12, 2024 Team Status: Active Member Role/Relationship Status Dates Dr. Pedro Gonzalez MD Primary Care Provider Active Start: December 13, 2024 Jose Lopez MD Emergency Provider Active Star t: December 13, 2024 Dr. Gaurang Cortes MD Admit Provider Active Star t: December 13, 2024 Dr. Gaurang Cortes MD Attending Provider Active Start: December 13, 2024 Dr. Gaurang Cortes MD Other Provider Active Star t: December 13, 2024 Team Status: Inactive Member Role/Relationship Status Dates Dr. Pedro Gonzalez MD Primary Care Provider Active Start: December 25, 2024 End: December 25, 2024 Dr. Pedro Gonzalez MD Referring Provider Active St art: December 25, 2024 End: December 25, 2024 Andrzej Marinelli SENIOR ENVIRONMENTAL ENGINEER, SENIOR ENVIRONMENTAL ENGINEER-C Attending Provider Active S tart: December 25, 2024 End: December 25, 2024 Team Status: Inactive Member Role/Relationship Status Dates Dr. Pedro DALAL MD Referring Provider Active Start: February 04, 2025 End: February 04, 2025 Andrzej Marinelli SENIOR ENVIRONMENTAL ENGINEER, SENIOR ENVIRONMENTAL ENGINEER-C Attending Provider Active S tart: February 04, 2025 End: February 04, 2025 Dr. Pedro Gonzalez MD Primary Care Provider Active Start: February 04, 2025 End: February 04, 2025 Team Status: Active Member Role/Relationship Status Dates Dr. Pedro Gonzalez MD Primary Care Provider Active Start: February 04, 2025 Dr. Maryanne Emanuel DO Emergency Provider Active Start: February 04, 2025 Dr. Rea Cancino MD Attending Provider Active Start: February 04, 2025 Team Status: Inactive Member Role/Relationship Status Dates Dr. Pedro Gonzalez MD Primary Care Provider Active Start: February 04, 2025 End: February 08, 2025 Dr. Maryanne Emanuel DO Emergency Provider Active Start: February 04, 2025 End: February 08, 2025 Dr. Rea Cancino MD Admit Provider Active St art: February 04, 2025 End: February 08, 2025 Dr. Rea Cancino MD Referring Provider Active Start: February 04, 2025 End: February 08, 2025 Dr. Rea Cancino MD Other Provider Active St art: February 04, 2025 End: February 08, 2025 Dr. Cj Gardiner MD Other Provider Active Start : February 04, 2025 End: February 08, 2025 Dr. Glen Haywood MD Other Provider Active St art: February 04, 2025 End: February 08, 2025 Dr. Yeny Gabriel DO Attending Provider Active S tart: February 04, 2025 End: February 08, 2025 Dr. Pedro Galvan DO Other Provider Active Star t: February 04, 2025 End: February 08, 2025 Team Status: Active Member Role/Relationship Status Dates Dr. Pedro Gonzalez MD Primary Care Provider Active Start: 2025 Dr. Maryanne Emanuel DO Emergency Provider Active Start: 2025 Dr. Rea Cancino MD Admit Provider Active St art: 2025 Dr. Rea Cancino MD Referring Provider Active Start: 2025 Dr. Rea Cancino MD Other Provider Active St art: 2025 Dr. Cj Gardiner MD Other Provider Active Start : 2025 Dr. Mark Samuel MD Other Provider Active Start: 2025 Dr. Shaheed Gleason MD Other Provider Active Start: 2025 Dr. Dallin Mclain MD Other Provider Active Star t: 2025 Dr. Lang Guzman , Other Provider Active Start : 2025 Dr. Gaurang Garcia MD Other Provider Active Sta rt: 2025 Dr. Pillo Blue MD Other Provider Active St art: 2025 Dr. Cuba Crooks MD Other Provider Active S tart: 2025 Dr. Elizabeth Gunn MD Other Provider Active Start: 2025 Dr. Michael Barrientos MD Other Provider Active Start : 2025 Dr. Fox Salguero MD Other Provider Active Start: 2025 Dr. Ron Vegas MD Other Provider Active Start : 2025 Dr. Tiara Gimenez MD Other Provider Active Star t: 2025 Dr. Diego Esquivel MD Other Provider Active Sta rt: 2025 Dr. Denise Benson MD Other Provider Active Sta rt: 2025 Dr. Heath Zendejas MD Other Provider Active Star t: 2025 Dr. Db King MD Other Provider Active St art: 2025 Dr. Mohit Guevara MD Other Provider Active Star t: 2025 Dr. Delon Jarrell DO Other Provider Active St art: 2025 Dr. Gagandeep Olmos MD Other Provider Active Start: 2025 Dr. Crow Baptiste MD Other Provider Active St art: 2025 Dr. Wilmer Chong DO Other Provider Active Start: 2025 Dr. Long Neumann MD Other Provider Active Star t: 2025 Dr. Stephon Mishra MD Other Provider Active Sta rt: 2025 Dr. Pedro Galvan DO Attending Provider Active Start: 2025 Dr. Pedro Galvan DO Other Provider Active Star t: 2025 Team Status: Active Member Role/Relationship Status Dates Dr. Pedro Gonzalez MD Primary Care Provider Active Start: 2025 Dr. Cj Gardiner MD Attending Provider Active S tart: 2025 Team Status: Active Member Role/Relationship Status Dates Dr. Pedro Gonzalez MD Primary Care Provider Active Start: February 06, 2025 Dr. Maryanne Emanuel DO Emergency Provider Active Start: February 06, 2025 Dr. Rea Cancino MD Admit Provider Active St art: February 06, 2025 Dr. Rea Cancino MD Referring Provider Active Start: February 06, 2025 Dr. Rea Cancino MD Other Provider Active St art: February 06, 2025 Dr. Cj Gardiner MD Other Provider Active Start : February 06, 2025 Dr. Pedro Galvan DO Attending Provider Active Start: February 06, 2025 Dr. Pedro Galvan DO Other Provider Active Star t: February 06, 2025 Team Status: Active Member Role/Relationship Status Dates Dr. Pedro Gonzalez MD Primary Care Provider Active Start: February 06, 2025 Dr. Maryanne Emanuel DO Emergency Provider Active Start: February 06, 2025 Dr. Rea Cancino MD Admit Provider Active St art: February 06, 2025 Dr. Rea Cancino MD Referring Provider Active Start: February 06, 2025 Dr. Rea Cancino MD Other Provider Active St art: February 06, 2025 Dr. Cj Gardiner MD Other Provider Active Start : February 06, 2025 Dr. Pedro Galvan DO Other Provider Active Star t: February 06, 2025 Dr. Lang Guzman DO Attending Provider Active S tart: February 06, 2025 Team Status: Active Member Role/Relationship Status Dates Dr. Pedro Gonzalez MD Primary Care Provider Active Start: February 06, 2025 Dr. Maryanne Emanuel DO Emergency Provider Active Start: February 06, 2025 Dr. Rea Cancino MD Admit Provider Active St art: February 06, 2025 Dr. Rea Cancino MD Referring Provider Active Start: February 06, 2025 Dr. Rea Cancino MD Other Provider Active St art: February 06, 2025 Dr. Cj Gardiner MD Other Provider Active Start : February 06, 2025 Dr. Pedro Galvan DO Other Provider Active Star t: February 06, 2025 Dr. Criss Castro MD Attending Provider Active Start: February 06, 2025 Team Status: Active Member Role/Relationship Status Dates Dr. Pedro Gonzalez MD Primary Care Provider Active Start: February 07, 2025 Dr. Maryanne Emanuel DO Emergency Provider Active Start: February 07, 2025 Dr. Rea Cancino MD Admit Provider Active St art: February 07, 2025 Dr. Rea Cancino MD Referring Provider Active Start: February 07, 2025 Dr. Rea Cancino MD Other Provider Active St art: February 07, 2025 Dr. Pedro Galvan DO Attending Provider Active Start: February 07, 2025 Dr. Pedro Galvan DO Other Provider Active Star t: February 07, 2025 Dr. Cj Gardiner MD Other Provider Active Start : February 07, 2025 Dr. Glen Haywood MD Other Provider Active St art: February 07, 2025 Team Status: Active Member Role/Relationship Status Dates Dr. Pedro Gonzalez MD Primary Care Provider Active Start: February 07, 2025 Dr. Maryanne Emanuel DO Emergency Provider Active Start: February 07, 2025 Dr. Rea Cancino MD Admit Provider Active St art: February 07, 2025 Dr. Rea Cancino MD Referring Provider Active Start: February 07, 2025 Dr. Rea Cancino MD Other Provider Active St art: February 07, 2025 Dr. Pedro Galvan DO Other Provider Active Star t: February 07, 2025 Dr. Cj Gardiner MD Other Provider Active Start : February 07, 2025 Dr. Criss Castro MD Attending Provider Active Start: February 07, 2025 Team Status: Active Member Role/Relationship Status Dates Dr. Pedro Gonzalez MD Primary Care Provider Active Start: February 07, 2025 Dr. Maryanne Emanuel DO Emergency Provider Active Start: February 07, 2025 Dr. Rea Cancino MD Admit Provider Active St art: February 07, 2025 Dr. Rea Cancino MD Referring Provider Active Start: February 07, 2025 Dr. Rea Cancino MD Other Provider Active St art: February 07, 2025 Dr. Pedro Galvan DO Other Provider Active Star t: February 07, 2025 Dr. Cj Gardiner MD Other Provider Active Start : February 07, 2025 Dr. Glen Haywood MD Attending Provider Active Start: February 07, 2025 Dr. Glen Haywood MD Other Provider Active St art: February 07, 2025 Team Status: Active Member Role/Relationship Status Dates Dr. Pedro Gonzalez MD Primary Care Provider Active Start: February 08, 2025 Dr. Maryanne Emanuel DO Emergency Provider Active Start: February 08, 2025 Dr. Rea Cancino MD Admit Provider Active St art: February 08, 2025 Dr. Rea Cancino MD Referring Provider Active Start: February 08, 2025 Dr. Rea Cancino MD Other Provider Active St art: February 08, 2025 Dr. Cj Gardiner MD Other Provider Active Start : February 08, 2025 Dr. Glen Haywood MD Other Provider Active St art: February 08, 2025 Dr. Yeny Gabriel DO Other Provider Active Start : February 08, 2025 Dr. Pedro Galvan DO Other Provider Active Star t: February 08, 2025 Dr. Criss Castro MD Attending Provider Active Start: February 08, 2025 Team Status: Active Member Role/Relationship Status Dates Dr. Pedro Gonzalez MD Primary Care Provider Active Start: February 08, 2025 Dr. Maryanne Emanuel DO Emergency Provider Active Start: February 08, 2025 Dr. Rea Cancino MD Admit Provider Active St art: February 08, 2025 Dr. Rea Cancino MD Referring Provider Active Start: February 08, 2025 Dr. Rea Cancino MD Other Provider Active St art: February 08, 2025 Dr. Cj Gardiner MD Other Provider Active Start : February 08, 2025 Dr. Glen Haywood MD Attending Provider Active Start: February 08, 2025 Dr. Glen Haywood MD Other Provider Active St art: February 08, 2025 Dr. Yeny Gabriel DO Other Provider Active Start : February 08, 2025 Dr. Pedro Galvan DO Other Provider Active Star t: February 08, 2025 Team Status: Active Member Role/Relationship Status Dates Dr. Pedro Gonzalez MD Primary Care Provider Active Start: February 08, 2025 Dr. Maryanne Emanuel DO Emergency Provider Active Start: February 08, 2025 Dr. Rea Cancino MD Admit Provider Active St art: February 08, 2025 Dr. Rea Cancino MD Referring Provider Active Start: February 08, 2025 Dr. Rea Cancino MD Other Provider Active St art: February 08, 2025 Dr. Cj Gardiner MD Other Provider Active Start : February 08, 2025 Dr. Glen Haywood MD Other Provider Active St art: February 08, 2025 Dr. Yeny Gabriel DO Attending Provider Active S tart: February 08, 2025 Dr. Yeny Gabriel DO Other Provider Active Start : February 08, 2025 Dr. Pedro Galvan DO Other Provider Active Star t: February 08, 2025 Team Status: Inactive Member Role/Relationship Status Dates Dr. Pedro Gonzalez MD Primary Care Provider Active Start: February 11, 2025 End: February 11, 2025 Dr. Pedro Gonzalez MD Referring Provider Active St art: February 11, 2025 End: February 11, 2025 Andrzej H Isis SENIOR ENVIRONMENTAL ENGINEER, SENIOR ENVIRONMENTAL ENGINEER-C Attending Provider Active S tart: February 11, 2025 End: February 11, 2025 Team Status: Active Member Role/Relationship Status Dates Dr. Pedro Gonzalez MD Primary Care Provider Active Start: February 11, 2025 Andrzej H Isis SENIOR ENVIRONMENTAL ENGINEER, SENIOR ENVIRONMENTAL ENGINEER-C Attending Provider Active S tart: February 11, 2025 Andrzej H Isis SENIOR ENVIRONMENTAL ENGINEER, SENIOR ENVIRONMENTAL ENGINEER-C Referring Provider Active S tart: February 11, 2025 Team Status: Inactive Member Role/Relationship Status Dates Dr. Pedro Gonzalez MD Primary Care Provider Active Start: February 11, 2025 End: February 11, 2025 Andrzej H Isis SENIOR ENVIRONMENTAL ENGINEER, SENIOR ENVIRONMENTAL ENGINEER-C Attending Provider Active S tart: February 11, 2025 End: February 11, 2025 Andrzej H Isis SENIOR ENVIRONMENTAL ENGINEER, SENIOR ENVIRONMENTAL ENGINEER-C Referring Provider Active S tart: February 11, 2025 End: February 11, 2025 Team Status: Active Member Role/Relationship Status Dates Dr. Pedro Gonzalez MD Primary Care Provider Active Start: 2025 Dr. Maryanne Emanuel DO Emergency Provider Active Start: 2025 Dr. Rea Cancino MD Admit Provider Active St art: 2025 Dr. Rea Cancino MD Other Provider Active St art: 2025 Dr. Cj Gardiner MD Other Provider Active Start : 2025 Dr. Mark Samuel MD Other Provider Active Start: 2025 Dr. Shaheed Gleason MD Other Provider Active Start: 2025 Dr. Dallin Mclain MD Other Provider Active Star t: 2025 Dr. Lang Guzman , Other Provider Active Start : 2025 Dr. Gaurang Garcia MD Other Provider Active Sta rt: 2025 Dr. Pillo Blue MD Other Provider Active St art: 2025 Dr. Cuba Crooks MD Other Provider Active S tart: 2025 Dr. Elizabeth Gunn MD Other Provider Active Start: 2025 Dr. Michael Barrientos MD Other Provider Active Start : 2025 Dr. Fox Salguero MD Other Provider Active Start: 2025 Dr. Ron Vegas MD Other Provider Active Start : 2025 Dr. Tiara Gimenez MD Other Provider Active Star t: 2025 Dr. Diego Esquivel MD Other Provider Active Sta rt: 2025 Dr. Denise Benson MD Other Provider Active Sta rt: 2025 Dr. Heath Zendejas MD Other Provider Active Star t: 2025 Dr. Db King MD Other Provider Active St art: 2025 Dr. Mohit Guevara MD Other Provider Active Star t: 2025 Dr. Delon Jarrell DO Other Provider Active St art: 2025 Dr. Gagandeep Olmos MD Other Provider Active Start: 2025 Dr. Crow Baptiste MD Other Provider Active St art: 2025 Dr. Wilmer Chong DO Other Provider Active Start: 2025 Dr. Long Neumann MD Other Provider Active Star t: 2025 Dr. Stephon Mishra MD Other Provider Active Sta rt: 2025 Dr. Pedro Galvan DO Attending Provider Active Start: 2025 Dr. Pedro Galvan DO Other Provider Active Star t: 2025 Team Status: Active Member Role/Relationship Status Dates Dr. Pedro Gonzalez MD Primary Care Provider Active Start: February 06, 2025 Dr. Maryanne Emanuel DO Emergency Provider Active Start: February 06, 2025 Dr. Rea Cancino MD Admit Provider Active St art: February 06, 2025 Dr. Rea Cancino MD Other Provider Active St art: February 06, 2025 Dr. Cj Gardiner MD Other Provider Active Start : February 06, 2025 Dr. Pedro Galvan DO Attending Provider Active Start: February 06, 2025 Dr. Pedro Galvan DO Other Provider Active Star t: February 06, 2025 Team Status: Active Member Role/Relationship Status Dates Dr. Pedro Gonzalez MD Primary Care Provider Active Start: February 07, 2025 Dr. Maryanne Emanuel DO Emergency Provider Active Start: February 07, 2025 Dr. Rea Cancino MD Admit Provider Active St art: February 07, 2025 Dr. Rea Cancino MD Other Provider Active St art: February 07, 2025 Dr. Pedro Galvan DO Attending Provider Active Start: February 07, 2025 Dr. Pedro Galvan DO Other Provider Active Star t: February 07, 2025 Dr. Cj Gardiner MD Other Provider Active Start : February 07, 2025 Dr. Glen Haywood MD Other Provider Active St art: February 07, 2025 Team Status: Inactive Member Role/Relationship Status Dates Dr. Pedro Gonzalez MD Primary Care Provider Active Start: February 26, 2025 End: February 26, 2025 Dr. Pedro Gonzalez MD Referring Provider Active St art: February 26, 2025 End: February 26, 2025 Andrzej Marinelli SENIOR ENVIRONMENTAL ENGINEER, SENIOR ENVIRONMENTAL ENGINEER-C Attending Provider Active S tart: February 26, 2025 End: February 26, 2025 Team Status: Inactive Member Role/Relationship Status Dates Dr. Pedro Gonzalez MD Primary Care Provider Active Start: [...] December 13, 2024 Team Status: Active Member Role/Relationship Status Dates Dr. Pedro Gonzalez MD Primary Care Provider Active Start: December 12, 2024 Jose Lopez MD Emergency Provider Active Star t: December 12, 2024 Dr. Gaurang Cortes MD Admit Provider Active Star t: December 12, 2024 Dr. Gaurang Cortes MD Attending Provider Active Start: December 12, 2024 Dr. Gaurang Cortes MD Other Provider Active Star t: December 12, 2024 Team Status: Active Member Role/Relationship Status Dates Dr. Pedro Gonzalez MD Primary Care Provider Active Start: December 12, 2024 Dr. Aden Knutson MD Attending Provider Active Start: December 12, 2024 Team Status: Active Member Role/Relationship Status Dates Dr. Pedro Gonzalez MD Primary Care Provider Active Start: December 13, 2024 Jose Lopez MD Emergency Provider Active Star t: December 13, 2024 Dr. Gaurang Cortes MD Admit Provider Active Star t: December 13, 2024 Dr. Gaurang Cortes MD Attending Provider Active Start: December 13, 2024 Dr. Gaurang Cortes MD Other Provider Active Star t: December 13, 2024 Team Status: Inactive Member Role/Relationship Status Dates Dr. Pedro Gonzalez MD Primary Care Provider Active Start: December 25, 2024 End: December 25, 2024 Dr. Pedro Gonzalez MD Referring Provider Active St art: December 25, 2024 End: December 25, 2024 Andrzej Marinelli SENIOR ENVIRONMENTAL ENGINEER, SENIOR ENVIRONMENTAL ENGINEER-C Attending Provider Active S tart: December 25, 2024 End: December 25, 2024 Team Status: Inactive Member Role/Relationship Status Dates Dr. Pedro DALAL MD Referring Provider Active Start: February 04, 2025 End: February 04, 2025 Andrzej Marinelli SENIOR ENVIRONMENTAL ENGINEER, SENIOR ENVIRONMENTAL ENGINEER-C Attending Provider Active S tart: February 04, 2025 End: February 04, 2025 Dr. Pedro Gonzalez MD Primary Care Provider Active Start: February 04, 2025 End: February 04, 2025 Team Status: Active Member Role/Relationship Status Dates Dr. Pedro Gonzalez MD Primary Care Provider Active Start: February 04, 2025 Dr. Maryanne Emanuel DO Emergency Provider Active Start: February 04, 2025 Dr. Rea Cancino MD Attending Provider Active Start: February 04, 2025 Team Status: Inactive Member Role/Relationship Status Dates Dr. Pedro Gonzalez MD Primary Care Provider Active Start: February 04, 2025 End: February 08, 2025 Dr. Maryanne Emanuel DO Emergency Provider Active Start: February 04, 2025 End: February 08, 2025 Dr. Rea Cancino MD Admit Provider Active St art: February 04, 2025 End: February 08, 2025 Dr. Rea Cancino MD Referring Provider Active Start: February 04, 2025 End: February 08, 2025 Dr. Rea Cancino MD Other Provider Active St art: February 04, 2025 End: February 08, 2025 Dr. Cj Gardiner MD Other Provider Active Start : February 04, 2025 End: February 08, 2025 Dr. Glen Haywood MD Other Provider Active St art: February 04, 2025 End: February 08, 2025 Dr. Yeny Gabriel DO Attending Provider Active S tart: February 04, 2025 End: February 08, 2025 Dr. Pedro Galvan DO Other Provider Active Star t: February 04, 2025 End: February 08, 2025 Team Status: Active Member Role/Relationship Status Dates Dr. Pedro Gonzalez MD Primary Care Provider Active Start: 2025 Dr. Maryanne Emanuel DO Emergency Provider Active Start: 2025 Dr. Rea Cancino MD Admit Provider Active St art: 2025 Dr. Rea Cancino MD Other Provider Active St art: 2025 Dr. Cj Gardiner MD Other Provider Active Start : 2025 Dr. Mark Samuel MD Other Provider Active Start: 2025 Dr. Shaheed Gleason MD Other Provider Active Start: 2025 Dr. Dallin Mclain MD Other Provider Active Star t: 2025 Dr. Lang Guzman DO Other Provider Active Start : 2025 Dr. Gaurnag Garcia MD Other Provider Active Sta rt: 2025 Dr. Pillo Blue MD Other Provider Active St art: 2025 Dr. Cuba Crooks MD Other Provider Active S tart: 2025 Dr. Elizabeth Gunn MD Other Provider Active Start: 2025 Dr. Michael Barrientos MD Other Provider Active Start : 2025 Dr. Fox Salguero MD Other Provider Active Start: 2025 Dr. Ron Vegas MD Other Provider Active Start : 2025 Dr. Tiara Gimenez MD Other Provider Active Star t: 2025 Dr. Diego Esquivel MD Other Provider Active Sta rt: 2025 Dr. Denise Benson MD Other Provider Active Sta rt: 2025 Dr. Heath Zendejas MD Other Provider Active Star t: 2025 Dr. Db King MD Other Provider Active St art: 2025 Dr. Mohit Guevara MD Other Provider Active Star t: 2025 Dr. Delon Jarrell DO Other Provider Active St art: 2025 Dr. Gagandeep Olmos MD Other Provider Active Start: 2025 Dr. Crow Baptiste MD Other Provider Active St art: 2025 Dr. Wilmer Chong DO Other Provider Active Start: 2025 Dr. Long Neumann MD Other Provider Active Star t: 2025 Dr. Stephon Mishra MD Other Provider Active Sta rt: 2025 Dr. Pedro Galvan DO Attending Provider Active Start: 2025 Dr. Pedro Galvan DO Other Provider Active Star t: 2025 Team Status: Active Member Role/Relationship Status Dates Dr. Pedro Gonzalez MD Primary Care Provider Active Start: 2025 Dr. Cj Gardiner MD Attending Provider Active S tart: 2025 Team Status: Active Member Role/Relationship Status Dates Dr. Pedro Gonzalez MD Primary Care Provider Active Start: February 06, 2025 Dr. Maryanne Emanuel DO Emergency Provider Active Start: February 06, 2025 Dr. Rea Cancino MD Admit Provider Active St art: February 06, 2025 Dr. Rea Cancino MD Other Provider Active St art: February 06, 2025 Dr. Cj Gardiner MD Other Provider Active Start : February 06, 2025 Dr. Pedro Galvan DO Attending Provider Active Start: February 06, 2025 Dr. Pedro Galvan DO Other Provider Active Star t: February 06, 2025 Team Status: Active Member Role/Relationship Status Dates Dr. Pedro Gonzalez MD Primary Care Provider Active Start: February 06, 2025 Dr. Maryanne Emanuel DO Emergency Provider Active Start: February 06, 2025 Dr. Rea Cancino MD Admit Provider Active St art: February 06, 2025 Dr. Rea Cancino MD Referring Provider Active Start: February 06, 2025 Dr. Rea Cancino MD Other Provider Active St art: February 06, 2025 Dr. Cj Gardiner MD Other Provider Active Start : February 06, 2025 Dr. Pedro Galvan DO Other Provider Active Star t: February 06, 2025 Dr. Lang Guzman DO Attending Provider Active S tart: February 06, 2025 Team Status: Active Member Role/Relationship Status Dates Dr. Pedro Gonzalez MD Primary Care Provider Active Start: February 06, 2025 Dr. Maryanne Emanuel DO Emergency Provider Active Start: February 06, 2025 Dr. Rea Cancino MD Admit Provider Active St art: February 06, 2025 Dr. Rea Cancino MD Referring Provider Active Start: February 06, 2025 Dr. Rea Cancino MD Other Provider Active St art: February 06, 2025 Dr. Cj Gardiner MD Other Provider Active Start : February 06, 2025 Dr. Pedro Galvan DO Other Provider Active Star t: February 06, 2025 Dr. Criss Castro MD Attending Provider Active Start: February 06, 2025 Team Status: Active Member Role/Relationship Status Dates Dr. Pedro Gonzalez MD Primary Care Provider Active Start: February 07, 2025 Dr. Maryanne Emanuel DO Emergency Provider Active Start: February 07, 2025 Dr. Rea Cancino MD Admit Provider Active St art: February 07, 2025 Dr. Rea Cancino MD Other Provider Active St art: February 07, 2025 Dr. Pedro Galvan DO Attending Provider Active Start: February 07, 2025 Dr. Pedro Galvan DO Other Provider Active Star t: February 07, 2025 Dr. Cj Gardiner MD Other Provider Active Start : February 07, 2025 Dr. Glen Haywood MD Other Provider Active St art: February 07, 2025 Team Status: Active Member Role/Relationship Status Dates Dr. Pedro Gonzalez MD Primary Care Provider Active Start: February 07, 2025 Dr. Maryanne Emanuel DO Emergency Provider Active Start: February 07, 2025 Dr. Rea Cancino MD Admit Provider Active St art: February 07, 2025 Dr. Rea Cancino MD Referring Provider Active Start: February 07, 2025 Dr. Rea Cancino MD Other Provider Active St art: February 07, 2025 Dr. Pedro Galvan DO Other Provider Active Star t: February 07, 2025 Dr. Cj Gardiner MD Other Provider Active Start : February 07, 2025 Dr. Criss Castro MD Attending Provider Active Start: February 07, 2025 Team Status: Active Member Role/Relationship Status Dates Dr. Pedro Gonzalez MD Primary Care Provider Active Start: February 07, 2025 Dr. Maryanne Emanuel DO Emergency Provider Active Start: February 07, 2025 Dr. Rea Cancino MD Admit Provider Active St art: February 07, 2025 Dr. Rea Cancino MD Referring Provider Active Start: February 07, 2025 Dr. Rea Cancino MD Other Provider Active St art: February 07, 2025 Dr. Pedro Galvan DO Other Provider Active Star t: February 07, 2025 Dr. Cj Gardiner MD Other Provider Active Start : February 07, 2025 Dr. Glen Haywood MD Attending Provider Active Start: February 07, 2025 Dr. Glen Haywood MD Other Provider Active St art: February 07, 2025 Team Status: Active Member Role/Relationship Status Dates Dr. Pedro Gonzalez MD Primary Care Provider Active Start: February 08, 2025 Dr. Maryanne Emanuel DO Emergency Provider Active Start: February 08, 2025 Dr. Rea Cancino MD Admit Provider Active St art: February 08, 2025 Dr. Rea Cancino MD Referring Provider Active Start: February 08, 2025 Dr. Rea Cancino MD Other Provider Active St art: February 08, 2025 Dr. Cj Gardiner MD Other Provider Active Start : February 08, 2025 Dr. Glen Haywood MD Other Provider Active St art: February 08, 2025 Dr. Yeny Gabriel DO Other Provider Active Start : February 08, 2025 Dr. Pedro Galvan DO Other Provider Active Star t: February 08, 2025 Dr. Criss Castro MD Attending Provider Active Start: February 08, 2025 Team Status: Active Member Role/Relationship Status Dates Dr. Pedro Gonzalez MD Primary Care Provider Active Start: February 08, 2025 Dr. Maryanne Emanuel DO Emergency Provider Active Start: February 08, 2025 Dr. Rea Cancino MD Admit Provider Active St art: February 08, 2025 Dr. Rea Cancino MD Referring Provider Active Start: February 08, 2025 Dr. Rea Cancino MD Other Provider Active St art: February 08, 2025 Dr. Cj Gardiner MD Other Provider Active Start : February 08, 2025 Dr. Glen Haywood MD Attending Provider Active Start: February 08, 2025 Dr. Glen Haywood MD Other Provider Active St art: February 08, 2025 Dr. Yeny Gabriel DO Other Provider Active Start : February 08, 2025 Dr. Pedro Galvan DO Other Provider Active Star t: February 08, 2025 Team Status: Active Member Role/Relationship Status Dates Dr. Pedro Gonzalez MD Primary Care Provider Active Start: February 08, 2025 Dr. Maryanne Emanuel DO Emergency Provider Active Start: February 08, 2025 Dr. Rea Cancino MD Admit Provider Active St art: February 08, 2025 Dr. Rea Cancino MD Other Provider Active St art: February 08, 2025 Dr. Cj Gardiner MD Other Provider Active Start : February 08, 2025 Dr. Glen Haywood MD Other Provider Active St art: February 08, 2025 Dr. Yeny Gabriel DO Attending Provider Active S tart: February 08, 2025 Dr. Yeny Gabriel DO Other Provider Active Start : February 08, 2025 Dr. Pedro Galvan , Other Provider Active Star t: February 08, 2025 Team Status: Inactive Member Role/Relationship Status Dates Dr. Pedro Gonzalez MD Primary Care Provider Active Start: February 11, 2025 End: February 11, 2025 Dr. Pedro Gonzalez MD Referring Provider Active St art: February 11, 2025 End: February 11, 2025 Andrzej Marinelli SENIOR ENVIRONMENTAL ENGINEER, SENIOR ENVIRONMENTAL ENGINEER-C Attending Provider Active S tart: February 11, 2025 End: February 11, 2025 Team Status: Inactive Member Role/Relationship Status Dates Dr. Pedro Gonzalez MD Primary Care Provider Active Start: February 11, 2025 End: February 11, 2025 nAdrzej Marinelli SENIOR ENVIRONMENTAL ENGINEER, SENIOR ENVIRONMENTAL ENGINEER-C Attending Provider Active S tart: February 11, 2025 End: February 11, 2025 Andrzej Marinelli SENIOR ENVIRONMENTAL ENGINEER, SENIOR ENVIRONMENTAL ENGINEER-C Referring Provider Active S tart: February 11, 2025 End: February 11, 2025 Team Status: Active Member Role/Relationship Status Dates Dr. Pedro Gonzalez MD Primary Care Provider Active Start: February 11, 2025 Dr. Cj Gardiner MD Attending Provider Active S tart: February 11, 2025 Andrzej Marinelli SENIOR ENVIRONMENTAL ENGINEER, SENIOR ENVIRONMENTAL ENGINEER-C Referring Provider Active S tart: February 11, 2025 Team Status: Inactive Member Role/Relationship Status Dates Dr. Pedro Gonzalez MD Primary Care Provider Active Start: February 26, 2025 End: February 26, 2025 Dr. Pedro Gonzalez MD Referring Provider Active St art: February 26, 2025 End: February 26, 2025 Andrzej Marinelli SENIOR ENVIRONMENTAL ENGINEER, SENIOR ENVIRONMENTAL ENGINEER-C Attending Provider Active S tart: February 26, 2025 End: February 26, 2025 Team Status: Inactive Member Role/Relationship Status Dates Dr. Pedro Gonzalez MD Primary Care Provider Active Start: April 02, 2025 End: April 02, 2025 Dr. Dionne Montes MD Emergency Provider Active S tart: April 02, 2025 End: April 02, 2025 Team Status: Inactive Member Role/Relationship Status Dates Dr. Pedro Gonzalez MD Primary Care Provider Active Start: April 07, 2025 End: April 07, 2025 Dr. Pedro Gonzalez MD Referring Provider Active St art: April 07, 2025 End: April 07, 2025 Andrzej Marinelli SENIOR ENVIRONMENTAL ENGINEER, SENIOR ENVIRONMENTAL ENGINEER-C Attending Provider Active S tart: April 07, 2025 End: April 07, 2025 Team Status: Active Member Role/Relationship Status Dates Dr. Pedro Gonzalez MD Primary care physician Active Team Status: Inactive Member Role/Relationship Status Dates Dr. Pedro DALAL MD Referring Provider Active Start: February 04, 2025 End: February 04, 2025 Andrzej Marinelli SENIOR ENVIRONMENTAL ENGINEER, SENIOR ENVIRONMENTAL ENGINEER-C Attending physician Active Start: February 04, 2025 End: February 04, 2025 Dr. Pedro Gonzalez MD Primary care physician Active Start: February 04, 2025 End: February 04, 2025 Team Status: Active Member Role/Relationship Status Dates Dr. Pedro Gonzalez MD Primary care physician Active Start: February 04, 2025 Dr. Maryanne Emanuel DO Emergency Department Physician Active Start: February 04, 2025 Dr. Rea Cancino MD Attending physician Active Start: February 04, 2025 Team Status: Inactive Member Role/Relationship Status Dates Dr. Pedro Gonzalez MD Primary care physician Active Start: February 04, 2025 End: February 08, 2025 Dr. Maryanne Emanuel DO Emergency Department Physician Active Start: February 04, 2025 End: February 08, 2025 Dr. Rea Cancino MD Admitting physician Active Start: February 04, 2025 End: February 08, 2025 Dr. Rea Cancino MD Referring Provider Active Start: February 04, 2025 End: February 08, 2025 Dr. Rea Cancino MD Nurse Practitioner Active Start: February 04, 2025 End: February 08, 2025 Dr. Cj Gardiner MD Nurse Practitioner Active S tart: February 04, 2025 End: February 08, 2025 Dr. Glen Haywood MD Nurse Practitioner Active Start: February 04, 2025 End: February 08, 2025 Dr. Yeny Gabriel DO Attending physician Active Start: February 04, 2025 End: February 08, 2025 Dr. Pedro Galvan DO Nurse Practitioner Active Start: February 04, 2025 End: February 08, 2025 Team Status: Active Member Role/Relationship Status Dates Dr. Pedro Gonzalez MD Primary care physician Active Start: 2025 Dr. Maryanne Emanuel DO Emergency Departm ent Physician Active Start: 2025 Dr. Rea Cancino MD Admitting physician Active Start: 2025 Dr. Rea Cancino MD Nurse Practitioner Active Start: 2025 Dr. Cj Gardiner MD Nurse Practitioner Active S tart: 2025 Dr. Mark Samuel MD Nurse Practitioner Active Start: 2025 Dr. Shaheed Gleason MD Nurse Practitioner Active Sta rt: 2025 Dr. Dallni Mclain MD Nurse Practitioner Active Start: 2025 Dr. Lang Guzman DO Nurse Practitioner Active S tart: 2025 Dr. Gaurang Garcia MD Nurse Practitioner Active Start: 2025 Dr. Pillo Blue MD Nurse Practitioner Active Start: 2025 Dr. Cuba Crooks MD Nurse Practitioner Active Start: 2025 Dr. Elizabeth Gunn MD Nurse Practitioner Active Start: 2025 Dr. Michael Barrientos MD Nurse Practitioner Active S tart: 2025 Dr. Fox Salguero MD Nurse Practitioner Active St art: 2025 Dr. Ron Vegas MD Nurse Practitioner Active S tart: 2025 Dr. Tiara Gimenez MD Nurse Practitioner Active Start: 2025 Dr. Diego Esquivel MD Nurse Practitioner Active Start: 2025 Dr. Denise Benson MD Nurse Practitioner Active Start: 2025 Dr. Heath Zendejas MD Nurse Practitioner Active Start: 2025 Dr. Db King MD Nurse Practitioner Active Start: 2025 Dr. Mohit Guevara MD Nurse Practitioner Active Start: 2025 Dr. Delon Jarrell , Nurse Practitioner Active Start: 2025 Dr. Gagandeep Olmos MD Nurse Practitioner Active St art: 2025 Dr. Crow Baptiste MD Nurse Practitioner Active Start: 2025 Dr. Wilmer Chong DO Nurse Practitioner Active Start: 2025 Dr. Long Neumann MD Nurse Practitioner Active Start: 2025 Dr. Stephon Mishra MD Nurse Practitioner Active Start: 2025 Dr. Pedro Galvan DO Attending physician Active Start: 2025 Dr. Pedro Galvan DO Nurse Practitioner Active Start: 2025 Team Status: Active Member Role/Relationship Status Dates Dr. Pedro Gonzalez MD Primary care physician Active Start: 2025 Dr. Cj Gardiner MD Attending physician Active Start: 2025 Team Status: Active Member Role/Relationship Status Dates Dr. Pedro Gonzalez MD Primary care physician Active Start: February 06, 2025 Dr. Maryanne Emanuel DO Emergency Department Physician Active Start: February 06, 2025 Dr. Rea Cancino MD Admitting physician Active Start: February 06, 2025 Dr. Rea Cancino MD Nurse Practitioner Active Start: February 06, 2025 Dr. Cj Gardiner MD Nurse Practitioner Active S tart: February 06, 2025 Dr. Pedro Galvan DO Attending physician Active Start: February 06, 2025 Dr. Pedro Galvan DO Nurse Practitioner Active Start: February 06, 2025 Team Status: Active Member Role/Relationship Status Dates Dr. Pedro Gonzalez MD Primary care physician Active Start: February 06, 2025 Dr. Maryanne Emanuel DO Emergency Department Physician Active Start: February 06, 2025 Dr. Rea Cancino MD Admitting physician Active Start: February 06, 2025 Dr. Rea Cancino MD Referring Provider Active Start: February 06, 2025 Dr. Rea Cancino MD Nurse Practitioner Active Start: February 06, 2025 Dr. Cj Gardiner MD Nurse Practitioner Active S tart: February 06, 2025 Dr. Pedro Galvan DO Nurse Practitioner Active Start: February 06, 2025 Dr. Lang Guzman DO Attending physician Active Start: February 06, 2025 Team Status: Active Member Role/Relationship Status Dates Dr. Pedro Gonzalez MD Primary care physician Active Start: February 06, 2025 Dr. Maryanne Emanuel DO Emergency Department Physician Active Start: February 06, 2025 Dr. Rea Cancino MD Admitting physician Active Start: February 06, 2025 Dr. Rea Cancino MD Referring Provider Active Start: February 06, 2025 Dr. Rea Cancino MD Nurse Practitioner Active Start: February 06, 2025 Dr. Cj Gardiner MD Nurse Practitioner Active S tart: February 06, 2025 Dr. Pedro Galvan DO Nurse Practitioner Active Start: February 06, 2025 Dr. Criss Castro MD Attending physician Active Start: February 06, 2025 Team Status: Active Member Role/Relationship Status Dates Dr. Pedro Gonzalez MD Primary care physician Active Start: February 07, 2025 Dr. Maryanne Emanuel DO Emergency Department Physician Active Start: February 07, 2025 Dr. Rea Cancino MD Admitting physician Active Start: February 07, 2025 Dr. Rea Cancino MD Nurse Practitioner Active Start: February 07, 2025 Dr. Pedro Galvan DO Attending physician Active Start: February 07, 2025 Dr. Pedro Galvan DO Nurse Practitioner Active Start: February 07, 2025 Dr. Cj Gardiner MD Nurse Practitioner Active S tart: February 07, 2025 Dr. Glen Haywood MD Nurse Practitioner Active Start: February 07, 2025 Team Status: Active Member Role/Relationship Status Dates Dr. Pedro Gonzalez MD Primary care physician Active Start: February 07, 2025 Dr. Maryanne Emanuel DO Emergency Department Physician Active Start: February 07, 2025 Dr. Rea Cancino MD Admitting physician Active Start: February 07, 2025 Dr. Rea Cancino MD Referring Provider Active Start: February 07, 2025 Dr. Rea Cancino MD Nurse Practitioner Active Start: February 07, 2025 Dr. Pedro Galvan DO Nurse Practitioner Active Start: February 07, 2025 Dr. Cj Gardiner MD Nurse Practitioner Active S tart: February 07, 2025 Dr. Criss Castro MD Attending physician Active Start: February 07, 2025 Team Status: Active Member Role/Relationship Status Dates Dr. Pedro Gonzalez MD Primary care physician Active Start: February 07, 2025 Dr. Maryanne Emanuel DO Emergency Department Physician Active Start: February 07, 2025 Dr. Rea Cancino MD Admitting physician Active Start: February 07, 2025 Dr. Rea Cancino MD Referring Provider Active Start: February 07, 2025 Dr. Rea Cancino MD Nurse Practitioner Active Start: February 07, 2025 Dr. Pedro Galvan DO Nurse Practitioner Active Start: February 07, 2025 Dr. Cj Gardiner MD Nurse Practitioner Active S tart: February 07, 2025 Dr. Glen Haywood MD Attending physician Active Start: February 07, 2025 Dr. Glen Haywood MD Nurse Practitioner Active Start: February 07, 2025 Team Status: Active Member Role/Relationship Status Dates Dr. Pedro Gonzalez MD Primary care physician Active Start: February 08, 2025 Dr. Maryanne Emanuel DO Emergency Department Physician Active Start: February 08, 2025 Dr. Rea Cancino MD Admitting physician Active Start: February 08, 2025 Dr. Rea Cancino MD Referring Provider Active Start: February 08, 2025 Dr. Rea Cancino MD Nurse Practitioner Active Start: February 08, 2025 Dr. Cj Gardiner MD Nurse Practitioner Active S tart: February 08, 2025 Dr. Glen Haywood MD Nurse Practitioner Active Start: February 08, 2025 Dr. Yeny Gabriel DO Nurse Practitioner Active S tart: February 08, 2025 Dr. Pedro Galvan DO Nurse Practitioner Active Start: February 08, 2025 Dr. Criss Castro MD Attending physician Active Start: February 08, 2025 Team Status: Active Member Role/Relationship Status Dates Dr. Pedro Gonzalez MD Primary care physician Active Start: February 08, 2025 Dr. Maryanne Emanuel DO Emergency Department Physician Active Start: February 08, 2025 Dr. Rea Cancino MD Admitting physician Active Start: February 08, 2025 Dr. Rea Cancino MD Referring Provider Active Start: February 08, 2025 Dr. Rea Cancino MD Nurse Practitioner Active Start: February 08, 2025 Dr. Cj Gardiner MD Nurse Practitioner Active S tart: February 08, 2025 Dr. Glen Haywood MD Attending physician Active Start: February 08, 2025 Dr. Glen Haywood MD Nurse Practitioner Active Start: February 08, 2025 Dr. Yeny Gabriel DO Nurse Practitioner Active S tart: February 08, 2025 Dr. Pedro Jopperi , DO Nurse Practitioner Active Start: February 08, 2025 Team Status: Active Member Role/Relationship Status Dates Dr. Pedro Gonzalez MD Primary care physician Active Start: February 08, 2025 Dr. Maryanne Emanuel , Emergency Department Physician Active Start: February 08, 2025 Dr. Rea Cnacino MD Admitting physician Active Start: February 08, 2025 Dr. Rea Cancino MD Nurse Practitioner Active Start: February 08, 2025 Dr. Cj Gardiner MD Nurse Practitioner Active S tart: February 08, 2025 Dr. Glen Haywood MD Nurse Practitioner Active Start: February 08, 2025 Dr. Yeny Gabriel , Attending physician Active Start: February 08, 2025 Dr. Yeny Gabriel , Nurse Practitioner Active S tart: February 08, 2025 Dr. Pedro Galvan DO Nurse Practitioner Active Start: February 08, 2025 Team Status: Inactive Member Role/Relationship Status Dates Dr. Pedro Gonzalez MD Primary care physician Active Start: February 11, 2025 End: February 11, 2025 Dr. Pedro Gonzalez MD Referring Provider Active St art: February 11, 2025 End: February 11, 2025 Andrzej Marinelli SENIOR ENVIRONMENTAL ENGINEER, SENIOR ENVIRONMENTAL ENGINEER-C Attending physician Active Start: February 11, 2025 End: February 11, 2025 Team Status: Inactive Member Role/Relationship Status Dates Dr. Pedro Gonzalez MD Primary care physician Active Start: February 11, 2025 End: February 11, 2025 Andrzej Marinelli SENIOR ENVIRONMENTAL ENGINEER, SENIOR ENVIRONMENTAL ENGINEER-C Attending physician Active Start: February 11, 2025 End: February 11, 2025 Andrzej Marinelli SENIOR ENVIRONMENTAL ENGINEER, SENIOR ENVIRONMENTAL ENGINEER-C Referring Provider Active S tart: February 11, 2025 End: February 11, 2025 Team Status: Active Member Role/Relationship Status Dates Dr. Pedro Gonzalez MD Primary care physician Active Start: February 11, 2025 Dr. Cj Gardiner MD Attending physician Active Start: February 11, 2025 Andrzej Marinelli SENIOR ENVIRONMENTAL ENGINEER, SENIOR ENVIRONMENTAL ENGINEER-C Referring Provider Active S tart: February 11, 2025 Team Status: Inactive Member Role/Relationship Status Dates Dr. Pedro Gonzalez MD Primary care physician Active Start: February 26, 2025 End: February 26, 2025 Dr. Pedro Gonzalez MD Referring Provider Active St art: February 26, 2025 End: February 26, 2025 Andrzej Marinelli NP, SENIOR ENVIRONMENTAL ENGINEER-C Attending physician Active Start: February 26, 2025 End: February 26, 2025 Team Status: Inactive Member Role/Relationship Status Dates Dr. Pedro Gonzalez MD Primary care physician Active Start: April 02, 2025 End: April 02, 2025 Dr. Dionne Montes MD Attending physician Active Start: April 02, 2025 End: April 02, 2025 Dr. Dionne Montes MD Emergency Department Physician Ac tive Start: April 02, 2025 End: April 02, 2025 Team Status: Inactive Member Role/Relationship Status Dates Dr. Pedro Gonzalez MD Primary care physician Active Start: April 07, 2025 End: April 07, 2025 Dr. Pedro Gonzalez MD Referring Provider Active St art: April 07, 2025 End: April 07, 2025 Andrzej Marinelli SENIOR ENVIRONMENTAL ENGINEER, SENIOR ENVIRONMENTAL ENGINEER-C Attending physician Active Start: April 07, 2025 End: April 07, 2025 Team Status: Active Member Role/Relationship Status Dates Dr. Pedro Gonzalez MD Primary care physician Active Start: April 15, 2025 Dr. Pedro Gonzalez MD Attending physician Active S tart: April 15, 2025 Team Status: Inactive Member Role/Relationship Status Dates Dr. Pedro Gonzalez MD Primary care physician Active Start: April 16, 2025 End: April 16, 2025 Dr. Pedro Gonzalez MD Attending physician Active S tart: April 16, 2025 End: April 16, 2025 FOR RECORDS PERTAINING TO PATIENTS WHO [...] BE BASED ON THE PRIMARY CLINICAL RECORDS. [employer] provides no warranty or guarantee of the accuracy or completeness of information in this document.
--- NOTE | 2025-05-19 00:25 | CT_ITS ---
PROCEDURE: CTA CHEST W/WO CONTRAST 05/19/2025 REASON FOR EXAM: HYPOXIA, ELEVATED DIMER TECHNIQUE: Procedure Code: [id number] Modality: CT Procedure: CTA CHEST W/WO CONTRAST Multiplanar Sagittal and Coronal images were obtained. CONTRAST: isovue 370 VOLUME: 100 mL One or more dose reduction techniques were used (e.g., Automated exposure control, adjustment of the mA and/or kV according to patient size, use of iterative reconstruction technique). RADIATION DOSE SUMMARY: CTDlvol: 21.9 mGy DLP: 1671 mGycm COMPARISON: 04-Feb-2025 FINDINGS: No evidence of any filling defect in the main pulmonary trunk, bilateral main pulmonary arteries, segmental arteries and subsegmental arteries to suggest acute or chronic pulmonary embolism. Poorly opacified right pulmonary veins and their branches, possibly flow related artifacts. Cardiomegaly with aortic root stent. Vascular atheromatous calcifications. Sternotomy suture wires. Ectatic thoracic aorta showing atherosclerotic changes. Progression of the right pleural effusion currently appears as moderate with underlying subsegmental compression atelectasis. Resolution of the left pleural effusion. Stable bilateral pulmonary calcified nodules and right middle lobe nodule with eccentric calcification. Bilateral pulmonary predominantly basal interstitial thickening with patchy parenchyma veiling, possibly mild interstitial lung disease. Bilateral pulmonary atelectatic changes. No pericardial sac collections. Prominent hilar and mediastinal lymph nodes are noted. Scanned osseous structures show no osseous destruction. Thoracic spondylosis. CT/CTA Chest W/WO Contrast IMPRESSION: No evidence of pulmonary arterial thromboembolism. Progression of the right pleural effusion currently appears as moderate with un derlying subsegmental compression atelectasis. Resolution of the left pleural effusion. Stable rest of the study findings. Reading Location: [place] [id number]
--- NOTE | 2025-05-19 01:38 | PCM.HP.STD ---
HPI - General General Date of Admission: 05/19/25 Date of Service: 05/19/25 Chief Complaint: Dyspnea, weight gain, orthopnea, cough. HPI Narrative The patient is an 85 y/o M w/ PMHx: Chronic anemia, CKD stage III unclear subtype, Chronic Thrombocytopenia, Valvular Heart Disease, CAD s/p PCI and CABG, HTN, HLD, AAA, BPH with obstructive pathology, HFrEF, GI on BiPAP nightly who presents to the [facility] ED on 05/18/2025 with worsening dyspnea over the last 4 days as well as weight gain despite patient increasing his Lasix over the past 3 days taking 80 mg twice a day with severe dyspnea especially with exertion with abdominal fullness sensation with a nonproductive cough unable to lay down secondary to worsening symptoms prompting ED evaluation. From review of weights patient most recently at Cardiology outpatient follow-up visit noted to be 179 lbs and now upon currently presentation 05/18/25 weight 194 lb 10.691 oz. Workup in the ED included T97.7, heart rate 109, BP 103/69, respiratory rate 30, 90% on room air with most recent repeat vitals T97.7, heart rate 75, BP 110/76, respiratory rate 20, 96% on room air, CBC with WBC 6.5, hemoglobin 12.7, MCV 89.5, platelet 116 without marked shift, ABG with pH 7.50, O2 saturation 84%, pCO2 30.9, PaO2 43, BMP with chloride 96, anion gap 18, BUN/creatinine 43/2.11, GFR 30, glucose 101, lactic acid 3.0, D-dimer 3.18, troponin 87, NT proBNPII 6299, chest x-ray with cardiomegaly with perihilar haziness possibly mild perihilar infiltrates however this is stable from previously, EKG with SR without acute evidence of ischemia, CTA chest with no evidence of pulmonary arterial thromboembolism, progression of the right pleural effusion moderate with underlying subsegmental compressive atelectasis, resolution of left pleural effusion with stable findings otherwise. FOR[facility]LY [facility] Medical History Abdominal aortic aneurysm PVC (premature ventricular contraction) Thrombocytopenia Multifocal PVCs Chronic systolic (congestive) heart failure GI treated with BiPAP Valvular heart disease HTN (hypertension) CAD (coronary artery disease) HFrEF (heart failure with reduced ejection fraction) Daytime hypersomnolence Nonrheumatic aortic (valve) stenosis Hyperlipidemia Atherosclerotic heart disease of circle coronary artery without angina pectoris Atherosclerosis of coronary artery bypass graft without angina pectoris (~03/29/22) Home Medications ?Medication ?Instructions ?Recorded ?Last Taken ?Type vitamin E 200 unit capsule 200 unit PO DAILY 09/14/20 Unknown History aspirin 81 mg chewable tablet 81 mg PO Q OTHER DAY 09/10/21 03/29/22 History tamsulosin 0.4 mg capsule (Flomax) 0.4 mg PO QHS #30 caps 01/27/22 Unknown Rx clopidogrel 75 mg tablet 75 mg PO Q OTHER DAY #45 tabs 11/12/24 Unknown Rx dapagliflozin propanediol 10 mg 10 mg PO QDAY heart #90 tabs 02/26/25 Unknown Rx tablet metoprolol succinate 25 mg 12.5 mg (1/2 x 25 mg) PO DAILY #45 04/07/25 Unknown Rx tablet,extended release 24 hr tabs furosemide 40 mg tablet 80 mg (2 x 40 mg) PO QDAY #60 tabs 04/10/25 Unknown Rx escitalopram oxalate 10 mg tablet 10 mg PO 05/18/25 Unknown History hydrochlorothiazide 25 mg tablet 25 mg PO DAILY 05/18/25 Unknown History oxycodone 5 mg tablet 5 mg PO QHS 05/18/25 Unknown History Allergy/AdvReac Type Severity Reaction Status Date / Time No Known Allergies Allergy Verified 05/18/25 23:26 Family History Father Myocardial infarction CVA (cerebral vascular accident) Mother CHF (congestive heart failure) Brother CAD (coronary artery disease) Cancer leukemia Surgical History Presence of coronary artery bypass graft stent (~03/29/22) History of arthroplasty of knee H/O coronary artery bypass surgery (~01/2002) History of left inguinal hernia repair (~1961) Presence of stent in coronary artery Postsurgical percutaneous transluminal coronary angioplasty (PTCA) status History of aortic valve replacement with bioprosthetic valve (~12/27/17) Social History adopted: No household members: spouse housing: house number of children: 6 current occupational status: employed 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 Eyes: No visual loss, blurred vision, double vision or yellow sclerae. Ears, Nose, Throat: No hearing loss, sneezing, congestion, runny nose or sore throat. SKIN: No rash or itching, lesions, wounds except + occasional staged ecchymoses, abrasion. CARDIOVASCULAR: + Increased edema, weight gain, orthopnea. No chest pain, chest pressure or chest discomfort, palpitations, syncopal events. RESPIRATORY: + Dyspnea, worse with exertion, nonproductive cough. No wheezing or hemoptysis. GASTROINTESTINAL: No anorexia, nausea, vomiting, diarrhea, abdominal pain, melena, BRBPR. GENITOURINARY: + BPH with chronic obstructive pathology. No dysuria, frequency, urgency. NEUROLOGICAL: No headache, dizziness, syncope, paralysis, ataxia, numbness or tingling in the extremities, focal weakness, change in bowel or bladder control, seizure. MUSCULOSKELETAL: + muscle, back pain, joint pain or stiffness. HEMATOLOGIC: + Chronic anemia, easy bleeding/bruising. LYMPHATICS: No enlarged nodes. No history of splenectomy. PSYCHIATRIC: No history of depression or anxiety. ENDOCRINOLOGIC: No reports of sweating, cold or heat intolerance. No polyuria or polydipsia. ALLERGIES: No history of asthma, hives, eczema or rhinitis. Vital Signs Vital Signs Vital Signs: 05/18/25 23:12 05/18/25 23:30 05/18/25 23:31 Temperature 97.7 F L 97.7 F L Temperature Source Oral Oral Pulse Rate 109 H 75 Respiratory Rate 30 H 20 H Respiratory Effort Respiratory Depth Respiratory Pattern Blood Pressure 103/69 110/76 Blood Pressure Mean 80 87 Pulse Ox 98 96 Oxygen Delivery Method Room Air Room Air Room Air Oxygen Flow Rate (L/min) 05/18/25 23:33 05/19/25 00:14 05/19/25 01:00 Temperature 97.7 F L 97.7 F L Temperature Source Oral Oral Pulse Rate 80 76 Respiratory Rate 20 H 19 H Respiratory Effort Short of Breath Labored Respiratory Depth Shallow Respiratory Pattern Tachypnea Blood Pressure 112/80 112/99 H Blood Pressure Mean 90 103 Pulse Ox 93 95 Oxygen Delivery Method Nasal Cannula Nasal Cannula Oxygen Flow Rate (L/min) 2 2 Weight Weight: 194 lb 10.691 oz Body Mass Index (BMI) 31.4 Physical Exam Narrative Physical Examination: General: Patient awake, alert, oriented x 3, seated upright in the ED bed, denies any marked dyspnea currently, fatigued appearing. Skin: Normal color, normal turgor, no icterus, no cyanosis except occasional stage ecchymoses, abrasions. HEENT: AT/NC, EOMI, PERRLA,MMM, difficult to discern carotid bruit and JVD given very thick shoemaker. Lungs: Significantly diminished, R>L, distant, distant rales, no evidence of distress, appropriate effort. Heart: Regular rate and rhythm; no gallop, rub audible, + SM. Abdomen: Soft, obese, NTTP, normal BS, no appreciated HSM. Extremities: No cyanosis, no clubbing, 1-2+ pedal to distal trevizo edema. Neurological: Patient awake, alert, oriented as noted, cognitive function appears baseline intact, cranial nerves grossly normal, moving all 4 extremities, no focal deficits, strength moderately to severely globally decreased secondary to acute presentation. Psychiatric: Affect appears flat, fatigued, no acute evidence of depressive or anxiety feelings. Results Lab / Micro Data 05/18/25 23:30 05/18/25 23:30 Labs: Laboratory Results - last 24 hr 05/18/25 23:30: WBC 6.5, RBC 4.49 L, Hgb 12.7 L, Hct 40.2, MCV 89.5, MCH 28.3, MCHC 31.6 L, RDW Std Deviation 53.7 H, RDW Coeff of Jenaro 16.3 H, Plt Count 116 L, MPV 11.8, Immature Gran % (Auto) 0.300, Neut % (Auto) 54.7, Lymph % (Auto) 32.8, [place] % (Auto) 10.1 H, Eos % (Auto) 1.5, Baso % (Auto) 0.6, Absolute Neuts (auto) 3.6, Absolute Lymphs (auto) 2.14, Nucleated RBC % 0.3, D-Dimer Quant (PE/DVT) 3.18 H*, Sodium 136, Potassium 3.9, Chloride 96 L, Carbon Dioxide 22.7, Anion Gap 18 H, BUN 43 H, Creatinine 2.11 H, Estim Creat Clear Calc 26.65 L, Est GFR (MDRD) Non-Af 30 L, BUN/Creatinine Ratio 20.3 H, Glucose 101 H, Lactic Acid 3.0 H*, Calcium 9.1, Troponin T High Sens 87 H* D, NT pro BNP II 6299 H ABG Data ABG results: ABG 05/18/25 23:51 Specimen Type ART Sample Site L Radial pH 7.50 H Bicarbonate Actual 24.2 Total CO2 25 Base Excess 1 O2 Saturation 84 L ABG pCO2 30.9 L ABG pO2 43 L Hal Test Positive O2 Delivery Device Room Air Vent Mode Not entered Imaging Radiology Impression Chest X-Ray 05/18/25 23:55 IMPRESSION: As above. Reading Location: [id number] Chest CTA 05/19/25 00:25 IMPRESSION: No evidence of pulmonary arterial thromboembolism. Progression of the right pleural effusion currently appears as moderate with underlying subsegmental compression atelectasis. Resolution of the left pleural effusion. Stable rest of the study findings. Reading [facility] Assessment & Plan Assessment/Plan (1) Acute exacerbation of chronic heart failure: PLAN: Plan The patient is an 85 y/o M w/ PMHx: Chronic anemia, CKD stage III unclear subtype, Chronic Thrombocytopenia, Valvular Heart Disease, CAD s/p PCI and CABG, HTN, HLD, AAA, BPH with obstructive pathology, HFrEF, GI on BiPAP nightly who presents to the [facility] ED on 05/18/2025 with worsening dyspnea over the last 4 days as well as weight gain despite patient increasing his Lasix over the past 3 days taking 80 mg twice a day with severe dyspnea especially with exertion with abdominal fullness sensation with a nonproductive cough unable to lay down secondary to worsening symptoms prompting ED evaluation. #1. Acute Hypoxia secondary to Acute Decompensated HFrEF with progression of right pleural effusion moderate in size with underlying subsegmental compression atelectasis concurrently with indeterminate cardiac enzyme (87, most recently 04/02/25 Trop 73), suspected secondary to demand with also lactic acidosis again suspected secondary to demand/hypoxia: Will admit to the PCU, maintain on cardiac telemetry, continue to obtain cardiac enzyme series, obtain serial EKGs as needed, continue IV lasix drip as BP allows, utilize BIPAP q HS, will monitor I/Os, maintain on intake restriction, continue medical therapy, obtain TSH, magnesium levels. Most recent ECHO 02/05/2025 with moderate global hypokinesis LV, mildly dilated LV, LVEF 25% with bioprosthetic AV in place, will place snug BL LE sonia wraps, PT/OT/CM consulted for discharge planning. Ideally would consider possible right-sided thoracentesis however patient is on Plavix therapy thus this may need to be considered outpatient. #2. Acute renal insufficiency/elevated creatinine on Chronic Kidney Disease Stage III, unclear subtype or GFR trending, likely cardiorenal etiology: Admission BUN/creatinine 43/2.11, GFR 30, baseline renal function primarily 1.3-1.6 range, also elevated during previous admission however corrected with most recently noted 04/16/2025 creatinine 1.54, continue to closely monitor especially given diuretic usage, repeat BMP in AM. #3. Valvular heart disease: Status post AVR, noted to be bioprosthetic, most recent ECHO 02/05/2025 with moderate global hypokinesis LV, mildly dilated LV, LVEF 25% with bioprosthetic AV in place, #4. Abdominal aortic aneurysm: 02/04/35 CT noting an abdominal aortic aneurysm measuring 4.5 cm, noted CTA of the chest and abdomen 11/03/2017 with [facility] with a noted infrarenal abdominal aortic aneurysm 3.4 x 3.2 cm, encourage continued outpatient follow-up and evaluation as previously arranged. #5. Chronic normocytic anemia: Admission hemoglobin 12.7, MCV 89.5, baseline hemoglobin primarily 10-11 range, continue to trend. #6. CAD: Status post PCI and CABG, will continue aspirin, Plavix, not on statin therapy, continue metoprolol as BP allows as this was added during most recent prior admission secondary to underlying history and frequent PVCs, previously had been on ACEI, no longer taking per Cardiology. #7. Hypertension: Will continue home metoprolol as BP allows, will prioritize lasix drip, From most recent cardiology note there is consideration outpatient for SONIA inhibitor, patient previously been on lisinopril. #8. Hyperlipidemia: Not on statin therapy, possibly not tolerated, FLP in AM. #9. BPH with obstructive pathology: Will cautiously continue Flomax home regimen. #10. Chronic thrombocytopenia, unclear etiology: Admission platelets 116, vacillates, primarily more recently 130-140 but during his previous admission had been in the 80-90 range, continue to trend. Will cautiously continue heparin drip as noted, trend CBC. #11. GI: Will initiate BiPAP now and maintain nightly also. #12. DVT prophylaxis: Heparin. #13. CODE status: Patient and family are his medical decision-makers, of whom is present. Discussed CODE status at length including difference between FULL code, DNR-CCA and DNR-CC status. Following discussions about the differences in these status, requested DNR CCA, no intubation. Also, no pressor therapy or central line. Charges/Coding Visit Charges Inpatient E&M: 18458 Init Hosp L3
--- OUTSIDE RECORDS SUMMARY | 2025-05-19 01:56 | XMS RPT_ITS | CCD ---
Author Organization [facility] Care Team Providers Care Jet Inspector Name Role Phone WHITE, LADARIUS Unavailable Unavailable WHITE, LADARIUS Unavailable Unavailable WHITE, LADARIUS Unavailable Unavailable WHITE, LADARIUS Unavailable Unavailable WHITE, LADARIUS Unavailable Unavailable WHITE, LADARIUS Unavailable Unavailable WHITE, LADARIUS Unavailable Unavailable UNAI, SHINYA Unavailable Unavailable WHITE, LADARIUS Unavailable Unavailable VANESSA COLVIN L (CLOD PULLER) Unavailable Unavailable WHITE, LADARIUS Unavailable Unavailable WHITE, [...] Provider Dr. Pedro Gonzalez Referring Provider Roof TELEMARKETER SUPERVISOR, TELEMARKETER SUPERVISOR-C Andrzej Morales Attending Provider Dr. Pedro Gonzalez Primary Care Provider Dr. Pedro Gonzalez Referring Provider Roof TELEMARKETER SUPERVISOR, TELEMARKETER SUPERVISOR-C Andrzej Morales Attending Provider Zurita TELEMARKETER SUPERVISOR, TELEMARKETER SUPERVISOR-C Attending Provider Dr. Brady Escalera Attending Provider Dr. Brady Escalera Other Provider Dr. Pedro Gonzalez MD Primary Care Provider Dr. Pedro Gonzalez MD Referring Provider Roof TELEMARKETER SUPERVISOR-C, Andrzej Morales Attending Provider Isis TELEMARKETER SUPERVISOR-C, Andrzej Morales Referring Provider Dr. Pedro Gonzalez MD Primary Care Provider Melodie TELEMARKETER SUPERVISOR-C, Karo Attending Provider Melodie TELEMARKETER SUPERVISOR-C, Karo Referring Provider Jose Lopez MD Emergency Provider [phone] Sophia BROOKS, Dr. Merlos Admit Provider Unavailable Sophia BROOKS, Dr. Merlos Attending Provider Unavailjourdan Cortes MD, Dr. Merlos Other Provider Unavailable Eamon BROOKS, Dr. Samaniego Attending Provider Dr. Pedro Gonzalez MD Referring Provider Roof TELEMARKETER SUPERVISOR-C, Andrzej Morales Attending Provider Eamon BROOKS, Dr. [...] Radha BROOKS, Dr. Gaurang Melgar Other Provider [phone] Su BROOKS, Dr. Ferro Other Provider Valeriy [...] Provider Jessica BROOKS, Dr. Joe Other Provider [phone] Fernando BROOKS, Dr. Ace Other Provider Paola BROOKS, Dr. Rueda Other Provider Dr. Delon Jarrell DO Other Provider Dr. Gagandeep Olmos MD Other Provider Emile BROOKS, Dr. Maria Other Provider Dr. Wilmer Chong DO Other Provider Thien BROOKS, Dr. Long Other Provider Tad BROOKS, Dr. Szymanski Other Provider [phone] Julita BROOKS, Dr. Rea Santiago Other Provider [phone] Chastity BROOKS, Dr. Glen Driver Other Provider Harvey TILLEY, Dr. Saini Attending Provider Mandy TILLEY, Dr. Vasquez Other Provider Lizzie BROOKS, Dr. Flores Other Provider Rosibel BROOKS, Dr. Hummel Other Provider Chemo BROOKS, Dr. Zamarripa Other Provider Tarik TILLEY, Dr. Croft Other Provider Radha BROOKS, Dr. Gaurang Melgar Other Provider Su BROOKS, Dr. Ferro Other Provider [phone] Valeriy BROOKS, Dr. Brink Other Provider Velia BROOKS, Dr. Johnson Other Provider Iliana BROOKS, Dr. Rodriguez Other Provider [phone] Jose M BROOKS, Dr. Braxton Other Provider [phone] Ascencion BROOKS, Dr. Velasquez Other Provider Ammy BROOKS, Dr. Menjivar Other Provider Sierra BROOKS, Dr. Cortez Other Provider Unavailabl roz Benson MD, Dr. Walker Other Provider [phone] Heath Zendejas MD Other Provider Fernando BROOKS, Dr. Ace Other Provider [phone] Mohit Guevara MD Other Provider Dr. Delon Jarrell DO Other Provider [phone] Amarilis BROOKS, Dr. Donis Other Provider [phone] Dr. Crow Baptiste MD Other Provider [phone] Wilmer Chong DO Other Provider Thien BROOKS, Dr. Alves Other Provider Tad BROOKS, Dr. Szymanski Other Provider Dr. Pedro Galvan DO Attending Provider Abdifatah BROOKS, Dr. Corona Attending Provider Dr. Lang Guzman DO Attending Provider Matthew BROOKS, Dr. Kahn Attending Provider Chastity BROOKS, Dr. Glen Driver Attending Provider Harvey TILLEY, Dr. Saini Other Provider Roof TELEMARKETER SUPERVISOR-C, Andrzej H Referring Provider Carlos BROOKS, Dr. Vasquez Primary Care Provider Simon BROOKS, Dr. Truong Emergency Provider Unavailab le Gonzalez VSC, Pedro Referring Unavailable Gonzalez VSC, Pedro Primary Care Unavailable Roof TELEMARKETER SUPERVISOR, Andrzej H Attending Unavailable Roof TELEMARKETER SUPERVISOR, Andrzej H Attending Unavailable Gonzalez, Pedro Primary Care Unavailable Gonzalez, Pedro Referring Unavailable Gonzalez, Pedro Primary Care Unavailable Gonzalez, Pedro Attending Unavailable Gaurang Cortes Admitting Unavailable Gaurang Cortes Attending Unavailable Gonzalez, Pedro Primary Care Unavailable Gonzalez, Pedro Primary Care Unavailable Glen Haywood Attending Unavailable White, Rea L Admitting Unavailable White, Rea L Referring Unavailable White, Rea L Consulting Unavailable Abdifatah, [place] Consulting Unavailable Wanek, Glen A Consulting Unavailable Jopperi, Pedro Consulting Unavailable Jopperi, Pedro Attending Unavailable Abdifatah, Cj Attending Unavailable Gonzalez, Pedro Primary Care Unavailable Aden Knutson Attending Unavailable Gonzalez, Pedro Primary Care Unavailable Abdifatah, Cj Attending Unavailable Gonzalez, Pedro Primary Care Unavailable Roof TELEMARKETER SUPERVISOR, Andrzej H Referring Unavailable Gonzalez, Pedro Primary Care Unavailable Yeny Gabriel Attending Unavailable White, Rea L Referring Unavailable White, Rea L Admitting Unavailable White, Rea L Consulting Unavailable Abdifatah, Cj Consulting Unavailable Wanek, Glen A Consulting Unavailable Jopperi, Pedro Consulting Unavailable Gonzalez, Pedro Primary Care Unavailable Gonzalez, Pedro Attending Unavailable Roof TELEMARKETER SUPERVISOR, Andrzej H Referring Unavailable Roof TELEMARKETER SUPERVISOR, Andrzej H Attending Unavailable Gonzalez VSC, Pedro Primary Care Unavailable Gonzalez, Pedro Primary Care Unavailable Roof TELEMARKETER SUPERVISOR, Andrzej H Attending Unavailable Roof TELEMARKETER SUPERVISOR, Andrzej H Referring Unavailable Gonzalez, Pedro Primary Care Unavailable Gonzalez VSC, Pedro Referring Unavailable Roof TELEMARKETER SUPERVISOR, Andrzej H Attending Unavailable Gonzalez, Pedro Primary Care Unavailable Roof TELEMARKETER SUPERVISOR, Adnrzej H Attending Unavailable Gonzalez, Pedro Referring Unavailable Gonzalez, Pedro Primary Care Unavailable Roof TELEMARKETER SUPERVISOR, Andrzej H Attending Unavailable Gonzalez, Pedro Referring Unavailable Yeny Gabriel Consulting Unavailable Yeny Gabriel Attending Unavailable Gonzalez, Pedro Attending Unavailable Gonzalez, Pedro Primary Care Unavailable Gonzalez, Pedro Referring Unavailable Melodie TELEMARKETER SUPERVISOR, Karo Referring Unavailable Melodie TELEMARKETER SUPERVISOR, Karo Attending Unavailable Gonzalez, Pedro Primary Care Unavailable Gonzalez, Pedro Primary Care Unavailable Melodie TELEMARKETER SUPERVISOR, Karo Referring Unavailable Melodie TELEMARKETER SUPERVISOR, Karo Attending Unavailable Gonzalez, Pedro Primary Care Unavailable Roof TELEMARKETER SUPERVISOR, Andrzej H Attending Unavailable Gonzalez, Pedro Referring Unavailable Gonzalez, Pedro Primary Care Unavailable Rea Cancino Attending Unavailable Criss Castro Attending Unavailable Mark Samuel Consulting Unavailable Shaheed Gleason Consulting Unavailable Dallin Mclain Consulting Unavailable Lang Guzman Consulting Unavailable Gaurang Garcia Consulting Unavailable [place] Consulting Unavailable Cuba Crooks Consulting Unavailable Elizabeth Gunn Consulting UnavailMichael Smith Consulting Unavailable Fox Salguero Consulting Unavailable Ron Vegas Consulting Unavailable Tiara Gimenez Consulting Unavailable Diego Esquivel Consulting Unavailable Denise Benson Consulting Unavailable Mercedes Zendejastam Consulting Unavailable Db King Consulting Unavailable PaolaMohit coe Consulting Unavailable Dhefany, Delon Consulting Unavailable Gagandeep Olmos Consulting Unavailable Crow Baptiste Consulting Unavailable Wilmer Chong Consulting Unavailable Long Neumann Consulting Unavailable Stephon Mishra Consulting Unavailable Lang Guzman Attending Unavailable Gaurang Cortes Admitting Unavailable Gaurang Cortes Attending Unavailable Gaurang Cortes Consulting Unavailable Gonzalez, Pedro Primary Care Unavailable Gonzalez, Pedro Primary Care Unavailable Dionne Montes Attending Unavailable Roof TELEMARKETER SUPERVISOR-CAndrzej Attending Physician [phone] Carlos BROOKS, Dr. Vasquez Primary Care Physician Dr. Maryanne Emanuel DO Emergency Department Physi azar Julita BROOKS, Dr. Rea Santiago Attending Physician [phone] Julita BROOKS, Dr. Rea Santiago Admitting Physician Julita BROOKS, Dr. Rea Santiago Nurse Practitioner Abdifatah BROOKS, Dr. Corona Nurse Practitioner Chastity BROOKS, Dr. Glen Driver Nurse Practitioner Harvey TILLEY, Dr. Saini Attending Physician Mandy TILLEY, Dr. Vasquez Nurse Practitioner Lizzie BROOKS, Dr. Flores Nurse Practitioner [phone] Rosibel BROOKS, Dr. Hummel Nurse Practitioner Chemo BROOKS, Dr. Zamarripa Nurse Practitioner [phone] Tarik TILLEY, Dr. Croft Nurse Practitioner Radha BROOKS, Dr. Gaurang Melgar Nurse Practitioner Su BROOKS, Dr. Ferro Nurse Practitioner Valeriy BROOKS, Dr. Brink Nurse Practitioner [phone] Velia BROOKS, Dr. Johnson Nurse Practitioner Iliana BROOKS, Dr. Rodriguez Nurse Practitioner [phone] Jose M BROOKS, Dr. Braxton Nurse Practitioner [phone] Ascencion BROOKS, Dr. Velasquez Nurse Practitioner [phone] Ammy BROOKS, Dr. Menjivar Nurse Practitioner [phone], [address] Cortez Nurse Practitioner Unavail tommy Benson MD, Dr. Walker Nurse Practitioner [phone] Jessica BROOKS, Dr. Joe Nurse Practitioner [phone] Fernando BROOKS, Dr. Ace Nurse Practitioner Paola BROOKS, Dr. Rueda Nurse Practitioner [phone] Wesly TILLEY, Dr. Jernigan Nurse Practitioner Amarilis BOROKS, Dr. Donis Nurse Practitioner [phone] Emile BROOKS, Dr. Maria Nurse Practitioner Castillo TILLEY, Dr. Guillen Nurse Practitioner Thien BROOKS, Dr. Alves Nurse Practitioner Tad BROOKS, Dr. Szymanski Nurse Practitioner Mandy TILLEY, Dr. Vasquez Attending Physician Abdifatah BROOKS, Dr. Corona Attending Physician Dr. Lang Guzman DO Attending Physician Matthew BROOKS, Dr. Kahn Attending Physician Chastity BROOKS, Dr. Glen Driver Attending Physician Harvey TILLEY, Dr. Saini Nurse Practitioner Carlos BROOKS, Dr. Vasquez Referring Provider Simon BROOKS, Dr. Truong Attending Physician [facility] sheela Montes MD, Dr. Truong Emergency Department Physici an Unavailable Carlos BROOKS, Dr. Vasquez Attending Physician Allergies Allergy Classification Reported Allergen(s) Allergy Type Date of Onset Reaction(s) Facility (1 source) Hmg-Coa Reductase Inhibitors (Statins); Translations: [RUUBAIE-ANS-BQI REDUCTASE INHIBITORS] Propensity to adverse reactions to drug (disorder) 8 AOF [facility] Repository (1 source) NO KNOWN ALLERGIES; Translations: [NO KNOWN ALLERGIES] Propensity to adverse reactions to drug (disorder) [facility] Repository Medications Current Medications Medication Drug Class(es) [...] take 1 capsule by mouth twice daily [place]-3 Fatty Acids 1,250 mg capsule Discontinued 1250 [...] Acute and unspecified renal failure (8 sources) Tzayn-zo-bdgckgz renal failure; Translations: [Acute kidney failure, unspecified] [...] disease (20 sources) Atherosclerotic heart disease of [place] coronary artery without angina pectoris; Translations: [Coronary atherosclerosis] Onset: 8 Chronic Comment on above: PTCA of anastomosis of GRAJEDA to LAD January 2002; PTCA of the RCA 04/14; 11/2012 @ [facility] - patent grafts;PCI/ENE to the ostial, proximal, [...] Auto (Unsp spec) [#/Vol] 1.88 10*3/uL 0.83-4.51 [facility] Absolute neutrophil countOrd ered By: Pedro Gonzalez on 04-16-2025 Neutrophils (Bld) [#/Vol] 3.4 10*3/uL 2.0-7.7 [facility] Anion gap in Serum or Plasma Ordered By: Pedro Gonzalez on 04-16-2025 Anion gap [Moles/Vol] 14 mmol/L 5- [facility] Automated lymphocyte count a s percentage of total leukocytesOrdered By: Pedro Gonzalez on 04-16-2025 Lymphocytes/100 WBC Auto (Unsp spec) 30.7 % -41 [facility] BUN/creatinine ratioOrdered By: Pedro Gonzalez on 04-16-2025 Urea nitrogen/Creatinine [Mass ratio] 20.7 mg/mg High 10-20 [facility] Basic Metabolic Profile (BMP )on 04-16-2025 BUN Normal 4-19 [facility] Comment on above: Result Comment: CMP ORDERED Performed By: #### L 500.2500 ####[facility] [address] [place], [address] BUN/CRE Normal 10-20 [facility] Comment on above: Result Comment: CMP ORDERED Performed By: #### L 500.2500 ####[facility] [address] [place], [address] Calcium Normal 7.6-11.0 [facility] Comment on above: Result Comment: CMP ORDERED Performed By: #### L 500.2500 ####[facility] [address] [place], [address] CL Normal 98-108 [facility] Comment on above: Result Comment: CMP ORDERED Performed By: #### L 500.2500 ####[facility] [address] [place], [address] CO2 Normal 21.0-32.0 [facility] Comment on above: Result Comment: CMP ORDERED Performed By: #### L 500.2500 ####[facility] [address] [place], [address] CREAT,SERUM Normal 0.70-1.20 [facility] Comment on above: Result Comment: CMP ORDERED Performed By: #### L 500.2500 ####[facility] [address] [place], [address] eGFR Normal >60 [facility] Comment on above: Result Comment: CMP ORDERED Performed By: #### L 500.2500 ####[facility] [address] [place], [address] GAP Normal 5-15 [facility] Comment on above: Result Comment: CMP ORDERED Performed By: #### L 500.2500 ####[facility] [address] [place], [address] GLU Normal 70-99 [facility] Comment on above: Result Comment: CMP ORDERED Performed By: #### L 500.2500 ####[facility] [address] [place], [address] Potassium Normal 3.3-5.1 [facility] Comment on above: Result Comment: CMP ORDERED Performed By: #### L 500.2500 ####[facility] [address] [place], [address] Basic Metabolic Profile (BMP) Normal 133-145 [facility] Comment on above: Result Comment: CMP ORDERED Performed By: #### L 500.2500 ####[facility] [address] [place], [address] Basophil percentageOrdered B y: Pedor Gonzalez on 04-16-2025 Basophils/100 WBC (Bld) 0.8 % 0-1 [facility] Bilirubin, totalOrdered By: Pedro Gonzalez on 04-16-2025 Bilirubin [Mass/Vol] 1.25 mg/dL 0.00-1.30 [facility] CBC W/Diff, Automatedon Absolute Lymph 1.88 X10 3/uL Normal 0.83-4.51 [facility] Comment on above: Order Comment: Order Date: 12/03/24Order Info: 0184-1 - CBCD Performed By: #### L 100.0100, L500.4050 ####[facility] [address] [place], [address] Absolute Neut 3.4 X10 3/uL Normal 2.0-7.7 [facility] Comment on above: Order Comment: Order Date: 12/03/24Order Info: 0184-1 - CBCD Performed By: #### L 100.0100, L500.4050 ####[facility] [address] [place], [address] Basophils/100 WBC (Bld) 0.8 % Normal 0-1 [facility] Comment on above: Order Comment: Order Date: 12/03/24Order Info: 0184-1 - CBCD Performed By: #### L 100.0100, L500.4050 ####[facility] [address] [place], [address] Eosinophils/100 WBC (Bld) 2.1 % Normal 0-5 [facility] Comment on above: Order Comment: Order Date: 12/03/24Order Info: 0184-1 - CBCD Performed By: #### L 100.0100, L500.4050 ####[facility] [address] [place], [address] Erythrocyte distribution width (RBC) [Ratio] 17.0 % High 11.6-14.6 [facility] Comment on above: Order Comment: Order Date: 12/03/24Order Info: 0184-1 - CBCD Performed By: #### L 100.0100, L500.4050 ####[facility] [address] [place], [address] Hematocrit (Bld) [Volume fraction] 37.1 % Low 40-54 [facility] Comment on above: Order Comment: Order Date: 12/03/24Order Info: 0184-1 - CBCD Performed By: #### L 100.0100, L500.4050 ####[facility] [address] [place], [address] Hemoglobin (Bld) [Mass/Vol] 11.8 g/dL Low 13.0-16.5 [facility] Comment on above: Order Comment: Order Date: 12/03/24Order Info: 0184-1 - CBCD Performed By: #### L 100.0100, L500.4050 ####[facility] [address] [place], [address] IG% 0.200 Normal 0.0-0.9 [facility] Comment on above: Order Comment: Order Date: 12/03/24Order Info: 0184-1 - CBCD Result Comment: IG% - Immature Granulocytes (promyelocytes, myelocytes andmetamyelocytes) > 1% indicates that a LEFT SHIFT is Present. Performed By: #### L 100.0100, L500.4050 ####[facility] [address] [place], [address] Lymphocytes/100 WBC (Bld) 30.7 % Normal 19-41 [facility] Comment on above: Order Comment: Order Date: 12/03/24Order Info: 0184-1 - CBCD Performed By: #### L 100.0100, L500.4050 ####[facility] [address] [place], [address] MCH (RBC) [Entitic mass] 29.3 pg Normal 27.0-32.0 [facility] Comment on above: Order Comment: Order Date: 12/03/24Order Info: 0184-1 - CBCD Performed By: #### L 100.0100, L500.4050 ####[facility] [address] [place], [address] MCHC (RBC) [Mass/Vol] 31.8 g/dL Low 32-36 [facility] Comment on above: Order Comment: Order Date: 12/03/24Order Info: 0184-1 - CBCD Performed By: #### L 100.0100, L500.4050 ####[facility] [address] [place], [address] MCV (RBC) [Entitic vol] 92.1 fL Normal 80-94 [facility] Comment on above: Order Comment: Order Date: 12/03/24Order Info: 0184-1 - CBCD Performed By: #### L 100.0100, L500.4050 ####[facility] [address] [place], [address] Monocytes/100 WBC (Bld) 10.1 % High 0-10 [facility] Comment on above: Order Comment: Order Date: 12/03/24Order Info: 0184-1 - CBCD Performed By: #### L 100.0100, L500.4050 ####[facility] [address] [place], [address] Neutrophils/100 WBC (Bld) 56.1 % Normal 47-70 [facility] Comment on above: Order Comment: Order Date: 12/03/24Order Info: 0184-1 - CBCD Performed By: #### L 100.0100, L500.4050 ####[facility] [address] [place], [address] Nucleated RBC (Bld) [#/Vol] 0 10*3/uL Normal 0-5 [facility] Comment on above: Order Comment: Order Date: 12/03/24Order Info: 0184-1 - CBCD Performed By: #### L 100.0100, L500.4050 ####[facility] [address] [place], [address] Platelet mean volume (Bld) [Entitic vol] 10.9 fL Normal 6.2-12.0 [facility] Comment on above: Order Comment: Order Date: 12/03/24Order Info: 0184-1 - CBCD Performed By: #### L 100.0100, L500.4050 ####[facility] [address] [place], [address] Platelets (Bld) [#/Vol] 144 10*3/uL Low 150-450 [facility] Comment on above: Order Comment: Order Date: 12/03/24Order Info: 0184-1 - CBCD Performed By: #### L 100.0100, L500.4050 ####[facility] [address] [place], [address] RBC (Bld) [#/Vol] 4.03 10*6/uL Low 4.6-6.2 [facility] Comment on above: Order Comment: Order Date: 12/03/24Order Info: 0184-1 - CBCD Performed By: #### L 100.0100, L500.4050 ####[facility] [address] [place], [address] RDW SD 57.1 fl High 35.1-43.9 [facility] Comment on above: Order Comment: Order Date: 12/03/24Order Info: 0184-1 - CBCD Performed By: #### L 100.0100, L500.4050 ####[facility] [address] [place], [address] WBC (Bld) [#/Vol] 6.1 10*3/uL Normal 4.4-11.0 [facility] Comment on above: Order Comment: Order Date: 12/03/24Order Info: 0184-1 - CBCD Performed By: #### L 100.0100, L500.4050 ####[facility] [address] [place], [address] Carbon dioxide, total [Moles /volume] in Central venous bloodOrdered By: Pedro Gonzalez on 04-16-2025 CO2 [Moles/Vol] 24.6 mmol/L 21.0-32.0 [facility] Chloride assayOrdered By: Wesley Gonzalez on 04-16-2025 Chloride [Moles/Vol] 102 mmol/L 98-108 [facility] Comprehensive Metabolic Prof ilon 04-16-2025 Albumin [Mass/Vol] 4.0 g/dL Normal 3.4-4.8 [facility] Comment on above: Order Comment: Order Date: 12/03/24Order Info: 0786-1 - CMP Performed By: #### L 100.0100, L500.4050 ####[facility] [address] [place], [address] Albumin/Globulin [Mass ratio] 1.3 {ratio} Normal 0.9-2.4 [facility] Comment on above: Order Comment: Order Date: 12/03/24Order Info: 0786-1 - CMP Performed By: #### L 100.0100, L500.4050 ####[facility] [address] [place], [address] ALK PHOS 111 U/L Normal 40-129 [facility] Comment on above: Order Comment: Order Date: 12/03/24Order Info: 0786-1 - CMP Performed By: #### L 100.0100, L500.4050 ####[facility] [address] [place], [address] ALT [Catalytic activity/Vol] 23 U/L Normal <=46 [facility] Comment on above: Order Comment: Order Date: 12/03/24Order Info: 0786-1 - CMP Performed By: #### L 100.0100, L500.4050 ####[facility] [address] [place], [address] AST [Catalytic activity/Vol] 27 U/L Normal <=37 [facility] Comment on above: Order Comment: Order Date: 12/03/24Order Info: 0786-1 - CMP Performed By: #### L 100.0100, L500.4050 ####[facility] [address] [place], [address] Bilirubin [Mass/Vol] 1.25 mg/dL Normal 0.00-1.30 [facility] Comment on above: Order Comment: Order Date: 12/03/24Order Info: 0786-1 - CMP Performed By: #### L 100.0100, L500.4050 ####[facility] [address] [place], [address] BUN/CRE 20.7 RATIO High 10-20 [facility] Comment on above: Order Comment: Order Date: 12/03/24Order Info: 0786-1 - CMP Performed By: #### L 100.0100, L500.4050 ####[facility] [address] [place], [address] Calcium [Mass/Vol] 9.4 mg/dL Normal 7.6-11.0 [facility] Comment on above: Order Comment: Order Date: 12/03/24Order Info: 0786-1 - CMP Performed By: #### L 100.0100, L500.4050 ####[facility] [address] [place], [address] Chloride [Moles/Vol] 102 mmol/L Normal 98-108 [facility] Comment on above: Order Comment: Order Date: 12/03/24Order Info: 0786-1 - CMP Performed By: #### L 100.0100, L500.4050 ####[facility] [address] [place], [address] CO2 [Moles/Vol] 24.6 mmol/L Normal 21.0-32.0 [facility] Comment on above: Order Comment: Order Date: 12/03/24Order Info: 0786-1 - CMP Performed By: #### L 100.0100, L500.4050 ####[facility] [address] [place], [address] Creatinine [Mass/Vol] 1.54 mg/dL High 0.70-1.20 [facility] Comment on above: Order Comment: Order Date: 12/03/24Order Info: 0786-1 - CMP Performed By: #### L 100.0100, L500.4050 ####[facility] [address] [place], [address] GAP 14 Normal 5-15 [facility] Comment on above: Order Comment: Order Date: 12/03/24Order Info: 0786-1 - CMP Performed By: #### L 100.0100, L500.4050 ####[facility] [facility] [address] [place], [address] GFR/1.73 sq M.predicted among non-blacks MDRD (S/P/Bld) [Vol rate/Area] 44 mL/min/{1.73_m2} Low >60 [facility] Comment on above: Order Comment: Order Date: 12/03/24Order Info: 0786-1 - CMP Result Comment: mL/m in/1.73m2 CKD-EPI Creatinine Equation (2020) Performed By: #### L 100.0100, L500.4050 ####[facility] [address] [place], [address] Globulin (S) [Mass/Vol] 3.0 g/dL Normal 2.2-4.2 [facility] Comment on above: Order Comment: Order Date: 12/03/24Order Info: 0786-1 - CMP Performed By: #### L 100.0100, L500.4050 ####[facility] [address] [place], [address] Glucose [Mass/Vol] 100 mg/dL High 70-99 [facility] Comment on above: Order Comment: Order Date: 12/03/24Order Info: 0786-1 - CMP Performed By: #### L 100.0100, L500.4050 ####[facility] [address] [place], [address] Potassium [Moles/Vol] 4.2 mmol/L Normal 3.3-5.1 [facility] Comment on above: Order Comment: Order Date: 12/03/24Order Info: 0786-1 - CMP Performed By: #### L 100.0100, L500.4050 ####[facility] [address] [place], [address] Sodium [Moles/Vol] 140 mmol/L Normal 133-145 [facility] Comment on above: Order Comment: Order Date: 12/03/24Order Info: 0786-1 - CMP Performed By: #### L 100.0100, L500.4050 ####[facility] [address] [place], [address] T PROT 7.0 g/dL Normal 5.9-8.4 [facility] Comment on above: Order Comment: Order Date: 12/03/24Order Info: 0786-1 - CMP Performed By: #### L 100.0100, L500.4050 ####[facility] [address] [place], [address] Urea nitrogen [Mass/Vol] 32 mg/dL High 4-19 [facility] Comment on above: Order Comment: Order Date: 12/03/24Order Info: 0786-1 - CMP Performed By: #### L 100.0100, L500.4050 ####[facility] [address] [place], [address] Eosinophil percentageOrdered By: Pedro Gonzalez on 04-16-2025 Eosinophils/100 WBC (Bld) 2.1 % 0-5 [facility] Erythrocyte distribution wid th ratioOrdered By: Pedro Gonzalez on 04-16-2025 Erythrocyte distribution width (RBC) [Ratio] 17.0 % High 11.6-14.6 [facility] Erythrocyte distribution wid th standard deviationOrdered By: Pedro Gonzalez on 04-16-2025 Erythrocyte distribution width (RBC) [Ratio] 57.1 fl High 35.1-43.9 [facility] Glomerular filtration rate ( GFR) estimation/1.73 sq m using serum, plasma, or whole bOrdered By: Pedro Gonzalez on 04-16-2025 GFR/1.73 sq M.predicted among non-blacks MDRD (S/P/Bld) [Vol rate/Area] 44 mL/min/{1.73_m2} Low >60 [facility] Comment on above: mL/min/1.73m2 CKD-EP I Creatinine Equation (2020) Hematocrit Auto (Bld) [Volum e fraction]Ordered By: Pedro Gonzalez on 04-16-2025 Hematocrit (Bld) [Volume fraction] 37.1 % Low 40-54 [facility] Hemoglobin measurementOrdere d By: Pedro Gonzalez on 04-16-2025 Hemoglobin (Bld) [Mass/Vol] 11.8 g/dL Low 13.0-16.5 [facility] Immature granulocytes/100 WB C Auto (Bld)Ordered By: Pedro Gonzalez on 04-16-2025 Immature granulocytes/100 WBC (Bld) 0.200 % 0.0-0.9 [facility] Comment on above: IG% - Immature Granu locytes (promyelocytes, myelocytes and metamyelocytes) > 1% indicates that a LEFT SHIFT is Present. Laboratory - Chemistry and C hemistry - challengeOrdered By: Pedro Gonzalez on 04-16-2025 AST [Catalytic activity/Vol] 27 U/L <38 [facility] MCV (mean corpuscular volume ) determinationOrdered By: Pedro Gonzalez on 04-16-2025 MCV (RBC) [Entitic vol] 92.1 fL 80-94 [facility] Mean corpuscular hemoglobin (MCH) determinationOrdered By: Pedro Gonzalez on 04-16-2025 MCH (RBC) [Entitic mass] 29.3 pg 27.0-32.0 [facility] Mean corpuscular hemoglobin concentration (MCHC) determinationOrdered By: Pedro Gonzalez on 04-16-2025 MCHC (RBC) [Mass/Vol] 31.8 g/dL Low 32-36 [facility] Mean platelet volume determi nationOrdered By: Pedro Gonzalez on 04-16-2025 Platelet mean volume (Bld) [Entitic vol] 10.9 fL 6.2-12.0 [facility] Monocyte percentageOrdered B y: Pedro Gonzalez on 04-16-2025 Monocytes/100 WBC (Bld) 10.1 % High 0-10 [facility] Natriuretic peptide.B prohor alirio N-Terminal [Mass/volume] in Serum or PlasmaOrdered By: Pedro Gonzalez on 04-16-2025 Natriuretic peptide.B prohormone N-Terminal [Mass/Vol] 8529 pg/mL High <1800 [facility] Comment on above: Heart Failure Unlike ly: < 300 pg/mLHeart Failure Likely< 50 Years: > 450 pg/mL50-75 Years: > 900 pg/mL>75 Years: > 1800 pg/mL Neutrophil percentageOrdered By: Pedro Gonzalez on 04-16-2025 Neutrophils/100 WBC (Bld) 56.1 % 47-70 [facility] Nucleated red blood cell per centageOrdered By: Pedro Gonzalez on 04-16-2025 Nucleated RBC/100 WBC (Bld) [Ratio] 0 % 0-5 [facility] Platelet countOrdered By: Wesley Gonzalez on 04-16-2025 Platelets (Bld) [#/Vol] 144 10*3/uL Low 150-450 [facility] Potassium measurement (mass/ volume)Ordered By: Pedro Gonzalez on 04-16-2025 Potassium (Unsp spec) [Mass/Vol] 4.2 mmol/L 3.3-5.1 [facility] Pro- Brain NATRIURETIC PEPTI Paola 04-16-2025 Natriuretic peptide B (Bld) [Mass/Vol] 8529 pg/mL High <=1800 [facility] Comment on above: Order Comment: Order Date: 12/03/24Order Info: 0786-1 - [facility] Result Comment: Hear t Failure Unlikely: < 300 pg/mLHeart Failure Likely< 50 Years: > 450 pg/mL50-75 Years: > 900 pg/mL>75 Years: > 1800 pg/mL Performed By: #### L 503.7505 ####[facility] [address] [place], [address] RBC Auto (Bld) [#/Vol]Ordere d By: Pedro Gonzalez on 04-16-2025 RBC (Bld) [#/Vol] 4.03 10*6/uL Low 4.6-6.2 [facility] Serum creatinine measurement (mass/volume)Ordered By: Pedro Gonzalez on 04-16-2025 Creatinine [Mass/Vol] 1.54 mg/dL High 0.70-1.20 [facility] Serum globulin measurementOr dered By: Pedro Gonzalez on 04-16-2025 Globulin (S) [Mass/Vol] 3.0 g/dL 2.2-4.2 [facility] Serum glucose measurement (m ass/volume)Ordered By: Pedro Gonzalez on 04-16-2025 Glucose [Mass/Vol] 100 mg/dL High 70-99 [facility] Serum or plasma alanine holm otransferase (ALT) measurementOrdered By: Pedro Gonzalez on 04-16-2025 ALT [Catalytic activity/Vol] 23 U/L <47 [facility] Serum or plasma albumin kelli urement (mass/volume)Ordered By: Pedro Gonzalez on 04-16-2025 Albumin [Mass/Vol] 4.0 g/dL 3.4-4.8 [facility] Serum or plasma albumin/glob ulin mass ratioOrdered By: Pedro Gonzalez on 04-16-2025 Albumin/Globulin [Mass ratio] 1.3 {ratio} 0.9-2.4 [facility] Serum or plasma alkaline karen sphatase measurementOrdered By: Pedro Gonzalez on 04-16-2025 ALP [Catalytic activity/Vol] 111 U/L 40-129 [facility] Serum or plasma calcium kelli urement (mass/volume)Ordered By: Pedro Gonzalez on 04-16-2025 Calcium [Mass/Vol] 9.4 mg/dL 7.6-11.0 [facility] Serum or plasma urea nitroge n measurement (mass/volume)Ordered By: Pedro Gonzalez on 04-16-2025 Urea nitrogen [Mass/Vol] 32 mg/dL High 4-19 [facility] Sodium levelOrdered By: Pedro Gonzalez on 04-16-2025 Sodium [Moles/Vol] 140 mmol/L 133-145 [facility] Total proteinOrdered By: Sophia Gonzalez on 04-16-2025 Protein [Mass/Vol] 7.0 g/dL 5.9-8.4 [facility] White blood cell (WBC) count Ordered By: Pedro Gonzalez on 04-16-2025 WBC (Bld) [#/Vol] 6.1 10*3/uL 4.4-11.0 [facility] Cardiology Visit Reporton Cardiology Visit Report Normal [facility] 12 Lead EKGon 04-02-2025 12 Lead EKG Normal [facility] Absolute lymphocyte countOrd ered By: Dionne Montes on 04-02-2025 Lymphocytes Auto (Unsp spec) [#/Vol] 1.68 10*3/uL 0.83-4.51 [facility] Absolute neutrophil countOrd ered By: Dionne Montes on 04-02-2025 Neutrophils (Bld) [#/Vol] 4.3 10*3/uL 2.0-7.7 [facility] Anion gap in Serum or Plasma Ordered By: Dionne Montes on 04-02-2025 Anion gap [Moles/Vol] 12 mmol/L 5-15 [facility] Automated blood erythrocyte countOrdered By: Dionne Montes on 04-02-2025 RBC (Bld) [#/Vol] 3.99 10*6/uL Low 4.6-6.2 [facility] Comment on above: Performed By: #### L 503.7505, L500.2500, L100.0100 ####[facility] [address] [place], [place], [id number] Automated blood hematocrit ( percentage)Ordered By: Dionne Montes on 04-02-2025 Hematocrit (Bld) [Volume fraction] 36.8 % Low 40-54 [facility] Comment on above: Performed By: #### L 503.7505, L500.2500, L100.0100 ####[facility] [address] [place], [address] Automated lymphocyte count a s percentage of total leukocytesOrdered By: Dionne Montes on 04-02-2025 Lymphocytes/100 WBC Auto (Unsp spec) 24.8 % - [facility] BUN/creatinine ratioOrdered By: Dionne Simon on 04-02-2025 Urea nitrogen/Creatinine [Mass ratio] 19.2 mg/mg 06-02 [facility] Basic Metabolic Profile (BMP )on 04-02-2025 BUN/CRE 19.2 RATIO Normal - [facility] Comment on above: Performed By: #### L 503.7505, L500.2500, L100.0100 ####[facility] [address] [place], [address] ECRCL 38.10 ml/min Low 50-250 [facility] Comment on above: Performed By: #### L 503.7505, L500.2500, L100.0100 ####[facility] [address] [place], [address] GAP 12 Normal 5-15 [facility] Comment on above: Performed By: #### L 503.7505, L500.2500, L100.0100 ####[facility] [address] [place], [address] Potassium [Moles/Vol] 4.2 mmol/L Normal 3.3-5.1 [facility] Comment on above: Result Comment: Hemo lysis present, Results??could be affected.?? Performed By: #### L 503.7505, L500.2500, L100.0100 ####[facility] [address] [place], [address] Basophil percentageOrdered B y: Dionne Montes on 04-02-2025 Basophils/100 WBC (Bld) 0.6 % Normal 0-1 [facility] Comment on above: Performed By: #### L 503.7505, L500.2500, L100.0100 ####[facility] [address] [place], [address] CBC W/Diff, Automatedon 08-2 0-2024 Absolute Lymph 1.68 X10 3/uL Normal 0.83-4.51 [facility] Comment on above: Performed By: #### L 503.7505, L500.2500, L100.0100 ####[facility] [address] [place], [address] Absolute Neut 4.3 X10 3/uL Normal 2.0-7.7 [facility] Comment on above: Performed By: #### L 503.7505, L500.2500, L100.0100 ####[facility] [address] [place], [address] IG% 0.300 Normal 0.0-0.9 [facility] Comment on above: Result Comment: IG% - Immature Granulocytes (promyelocytes, myelocytes andmetamyelocytes) > 1% indicates that a LEFT SHIFT is Present. Performed By: #### L 503.7505, L500.2500, L100.0100 ####[facility] [address] [place], [address] Lymphocytes/100 WBC (Bld) 24.8 % Normal 19-41 [facility] Comment on above: Performed By: #### L 503.7505, L500.2500, L100.0100 ####[facility] [address] [place], [address] Nucleated RBC (Bld) [#/Vol] 0 10*3/uL Normal 0-5 [facility] Comment on above: Performed By: #### L 503.7505, L500.2500, L100.0100 ####[facility] [address] [place], [address] RDW SD 56.3 fl High 35.1-43.9 [facility] Comment on above: Performed By: #### L 503.7505, L500.2500, L100.0100 ####[facility] [address] [place], [address] Carbon dioxide, total [Moles /volume] in Central venous bloodOrdered By: Dionne Montes on 04-02-2025 CO2 [Moles/Vol] 24.8 mmol/L Normal 21.0-32.0 [facility] Comment on above: Performed By: #### L 503.7505, L500.2500, L100.0100 ####[facility] [address] [place], [address] Chest PA and Lateralon 04-02 Chest PA and Lateral Normal [facility] Chloride assayOrdered By: Wesley Montes on 04-02-2025 Chloride [Moles/Vol] 98 mmol/L Normal 98-108 [facility] Comment on above: Performed By: #### L 503.7505, L500.2500, L100.0100 ####[facility] [address] [place], [address] Emergency Department Summary on 04-02-2025 Emergency Department Summary Normal [facility] Eosinophil percentageOrdered By: Dionne Montes on 04-02-2025 Eosinophils/100 WBC (Bld) 1.5 % Normal 0-5 [facility] Comment on above: Performed By: #### L 503.7505, L500.2500, L100.0100 ####[facility] [address] [place], [address] Erythrocyte distribution wid th ratioOrdered By: Dionne Montes on 04-02-2025 Erythrocyte distribution width (RBC) [Ratio] 16.9 % High 11.6-14.6 [facility] Comment on above: Performed By: #### L 503.7505, L500.2500, L100.0100 ####[facility] [address] [place], [place], [address] Erythrocyte distribution wid th standard deviationOrdered By: Dionne Montes on 04-02-2025 Erythrocyte distribution width (RBC) [Ratio] 56.3 fl High 35.1-43.9 [facility] Glomerular filtration rate ( GFR) estimation/1.73 sq m using serum, plasma, or whole bOrdered By: Dionne Montes on 04-02-2025 GFR/1.73 sq M.predicted among non-blacks MDRD (S/P/Bld) [Vol rate/Area] 47 mL/min/{1.73_m2} Low >60 [facility] Comment on above: mL/min/1.73m2 CKD-EP I Creatinine Equation (2020) Result Comment: mL/m in/1.73m2 CKD-EPI Creatinine Equation (2020) Performed By: #### L 503.7505, L500.2500, L100.0100 ####[facility] [address] [place], [place], [id number] Hemoglobin measurementOrdere d By: Dionne Montes on 04-02-2025 Hemoglobin (Bld) [Mass/Vol] 11.8 g/dL Low 13.0-16.5 [facility] Comment on above: Performed By: #### L 503.7505, L500.2500, L100.0100 ####[facility] [address] [place], [address] Immature granulocytes/100 WB C Auto (Bld)Ordered By: Dionne Montes on 04-02-2025 Immature granulocytes/100 WBC (Bld) 0.300 % 0.0-0.9 [facility] Comment on above: IG% - Immature Granu locytes (promyelocytes, myelocytes and metamyelocytes) > 1% indicates that a LEFT SHIFT is Present. L501.4021on 04-02-2025 Trop T High Sen 73 ng/L Invalid Interpretation Code <=22 [facility] Comment on above: Result Comment: Crit ical Result(s) Called at 1134: by: MILO KWAN.??Results read back by same. Performed By: #### L 501.4021 ####[facility] [address] [place], [address] MCV (mean corpuscular volume ) determinationOrdered By: Dionne Montes on 04-02-2025 MCV (RBC) [Entitic vol] 92.2 fL Normal 80-94 [facility] Comment on above: Performed By: #### L 503.7505, L500.2500, L100.0100 ####[facility] [address] [place], [address] Mean corpuscular hemoglobin (MCH) determinationOrdered By: Dionne Montes on 04-02-2025 MCH (RBC) [Entitic mass] 29.6 pg Normal 27.0-32.0 [facility] Comment on above: Performed By: #### L 503.7505, L500.2500, L100.0100 ####[facility] [address] [place], [address] Mean corpuscular hemoglobin concentration (MCHC) determinationOrdered By: Dionne Montes on 04-02-2025 MCHC (RBC) [Mass/Vol] 32.1 g/dL Normal 32-36 [facility] Comment on above: Performed By: #### L 503.7505, L500.2500, L100.0100 ####[facility] [address] [place], [address] Mean platelet volume determi nationOrdered By: Dionne Montes on 04-02-2025 Platelet mean volume (Bld) [Entitic vol] 10.4 fL Normal 6.2-12.0 [facility] Comment on above: Performed By: #### L 503.7505, L500.2500, L100.0100 ####[facility] [address] [place], [address] Monocyte percentageOrdered B y: Dionne Montes on 04-02-2025 Monocytes/100 WBC (Bld) 9.0 % Normal 0-10 [facility] Comment on above: Performed By: #### L 503.7505, L500.2500, L100.0100 ####[facility] [address] [place], [address] Natriuretic peptide.B prohor alirio N-Terminal [Mass/volume] in Serum or PlasmaOrdered By: Dionne Montes on 04-02-2025 Natriuretic peptide.B prohormone N-Terminal [Mass/Vol] 8907 pg/mL High <1800 [facility] Comment on above: Heart Failure Unlike ly: < 300 pg/mLHeart Failure Likely< 50 Years: > 450 pg/mL50-75 Years: > 900 pg/mL>75 Years: > 1800 pg/mL Neutrophil percentageOrdered By: Dionne Montes on 04-02-2025 Neutrophils/100 WBC (Bld) 63.8 % Normal 47-70 [facility] Comment on above: Performed By: #### L 503.7505, L500.2500, L100.0100 ####[facility] [address] [place], [address] Nucleated red blood cell per centageOrdered By: Dionne Montes on 04-02-2025 Nucleated RBC/100 WBC (Bld) [Ratio] 0 % 0-5 [facility] Platelet countOrdered By: Wesley Montes on 04-02-2025 Platelets (Bld) [#/Vol] 137 10*3/uL Low 150-450 [facility] Comment on above: Performed By: #### L 503.7505, L500.2500, L100.0100 ####[facility] [address] [place], [address] Potassium measurement (mass/ volume)Ordered By: Dionne Montes on 04-02-2025 Potassium (Unsp spec) [Mass/Vol] 4.2 mmol/L 3.3-5.1 [facility] Comment on above: Hemolysis present, R esults could be affected. Pro- Brain NATRIURETIC PEPTI Paola 04-02-2025 Natriuretic peptide B (Bld) [Mass/Vol] 8907 pg/mL High <=1800 [facility] Comment on above: Result Comment: Hear t Failure Unlikely: < 300 pg/mLHeart Failure Likely< 50 Years: > 450 pg/mL50-75 Years: > 900 pg/mL>75 Years: > 1800 pg/mL Performed By: #### L 503.7505, L500.2500, L100.0100 ####[facility] [address] [place], [address] Serum creatinine measurement (mass/volume)Ordered By: Dionne Montes on 04-02-2025 Creatinine [Mass/Vol] 1.45 mg/dL High 0.70-1.20 [facility] Comment on above: Performed By: #### L 503.7505, L500.2500, L100.0100 ####[facility] [address] [place], [address] Serum glucose measurement (m ass/volume)Ordered By: Dionne Montes on 04-02-2025 Glucose [Mass/Vol] 104 mg/dL High 70-99 [facility] Comment on above: Performed By: #### L 503.7505, L500.2500, L100.0100 ####[facility] [address] [place], [address] Serum or plasma calcium kelli urement (mass/volume)Ordered By: Dionne Montes on 04-02-2025 Calcium [Mass/Vol] 8.9 mg/dL Normal 7.6-11.0 [facility] Comment on above: Performed By: #### L 503.7505, L500.2500, L100.0100 ####[facility] [address] [place], [address] Serum or plasma urea nitroge n measurement (mass/volume)Ordered By: Dionne Montes on 04-02-2025 Urea nitrogen [Mass/Vol] 28 mg/dL High 4-19 [facility] Comment on above: Performed By: #### L 503.7505, L500.2500, L100.0100 ####[facility] [address] [place], [place], [address] Sodium levelOrdered By: Pedro Montes on 04-02-2025 Sodium [Moles/Vol] 135 mmol/L Normal 133-145 [facility] Comment on above: Performed By: #### L 503.7505, L500.2500, L100.0100 ####[facility] [address] [place], [address] Troponin T HS 2 HRon 025 Trop T High Sen 67 ng/L Invalid Interpretation Code <=22 [facility] Comment on above: Result Comment: CRIT ICAL RESULTS CALLED TO RMSTRONG BY MILO TORO.RESULTS READ BACK BY SAME. 1409Hemolysis present, Results??could be affected.??Critical Result(s) Called at: by:??[facility] Performed By: #### L 499.0042 ####[facility] [address] [place], [address] Troponin T.cardiac [Mass/vol ume] in Serum or Plasma by High sensitivity methodOrdered By: Dionne Montes on 04-02-2025 Troponin T.cardiac High sensitivity method [Mass/Vol] 67 ng/L Critically high <22 [facility] Comment on above: CRITICAL RESULTS CHAITANYA LED TO ZARMSTRONG BY MILO TORO. RESULTS READ BACK BY SAME. 1409Hemolysis present, Results could be affected. Critical Result(s) Called at: by: Results read back by same. Troponin T.cardiac High sensitivity method [Mass/Vol] 73 ng/L Critically high <22 [facility] Comment on above: Delta: 108 on -1756Critical Result(s) Called at 1134: by: MILO TOOR TO SOPHIA. Results read back by same. White blood cell (WBC) count Ordered By: Dionne Montes on 04-02-2025 WBC (Bld) [#/Vol] 6.8 10*3/uL Normal 4.4-11.0 [facility] Comment on above: Performed By: #### L 503.7505, L500.2500, L100.0100 ####[facility] [address] [place], [place], [address] Cardiology Visit Reporton Cardiology Visit Report Normal [facility] Cardiology Visit Reporton Cardiology Visit Report Normal [facility] Culture, Blood (WB)on 2024 CUB Blood cultures x2, f rom two different sites No growth in 5 days. Normal [facility] Comment on above: Performed By: #### M 200.1000, L501.4021, L300.4310, L100.0100, L503.6005, L300.3900, L501.5200, L500.4050 ####[facility] [address] [place], [address] Absolute lymphocyte countOrd ered By: Pedro Galvan on 02-08-2025 Lymphocytes Auto (Unsp spec) [#/Vol] 2.21 10*3/uL 0.83-4.51 [facility] Absolute neutrophil countOrd ered By: Pedro Galvan on 02-08-2025 Neutrophils (Bld) [#/Vol] 2.9 10*3/uL 2.0-7.7 [facility] Anion gap in Serum or Plasma Ordered By: Pedro Galvan on 02-08-2025 Anion gap [Moles/Vol] 12 mmol/L 5-15 [facility] Automated lymphocyte count a s percentage of total leukocytesOrdered By: Pedro Galvan on 02-08-2025 Lymphocytes/100 WBC Auto (Unsp spec) 38.6 % 19-41 [facility] BUN/creatinine ratioOrdered By: Pedro Galvan on 02-08-2025 Urea nitrogen/Creatinine [Mass ratio] 21.9 mg/mg High 10-20 [facility] Basophil percentageOrdered B y: Pedro Galvan on 02-08-2025 Basophils/100 WBC (Bld) 0.3 % 0-1 [facility] Bilirubin, totalOrdered By: Pedro Galvan on 02-08-2025 Bilirubin [Mass/Vol] 0.62 mg/dL 0.00-1.30 [facility] Blood polychromasia detectio n by light microscopyOrdered By: Pedro Galvan on 02-08-2025 Polychromasia LM Ql (Bld) 1+ [facility] CBC W/Diff, Automatedon 01-13 POLYCHROMASIA 1+ Normal [facility] Comment on above: Performed By: #### L 500.4050, L100.0100 ####[facility] [address] [place], [address] ATYPICAL LYMPH 2+ Normal [facility] Comment on above: Performed By: #### L 500.4050, L100.0100 ####[facility] [address] [place], [address] PLT EST SLT DEC Normal ADEQ [facility] Comment on above: Performed By: #### L 500.4050, L100.0100 ####[facility] [address] [place], [address] PLT MORPH GIANT Normal [facility] Comment on above: Performed By: #### L 500.4050, L100.0100 ####[facility] [address] [place], [address] Carbon dioxide, total [Moles /volume] in Central venous bloodOrdered By: Pedro Galvan on 02-08-2025 CO2 [Moles/Vol] 20.4 mmol/L Low 21.0-32.0 [facility] Chloride assayOrdered By: Wesley Galvan on 02-08-2025 Chloride [Moles/Vol] 105 mmol/L 98-108 [facility] Comprehensive Metabolic Prof ilon 02-08-2025 Albumin [Mass/Vol] 3.1 g/dL Low 3.4-4.8 [facility] Comment on above: Performed By: #### L 500.4050, L100.0100 ####[facility] [address] [place], [address] Albumin/Globulin [Mass ratio] 1.2 {ratio} Normal 0.9-2.4 [facility] Comment on above: Performed By: #### L 500.4050, L100.0100 ####[facility] [address] [place], [address] ALK PHOS 103 U/L Normal 40-129 [facility] Comment on above: Performed By: #### L 500.4050, L100.0100 ####[facility] [address] [place], [address] ALT [Catalytic activity/Vol] 51 U/L High <=46 [facility] Comment on above: Performed By: #### L 500.4050, L100.0100 ####[facility] [address] [place], [address] AST [Catalytic activity/Vol] 29 U/L Normal <=37 [facility] Comment on above: Performed By: #### L 500.4050, L100.0100 ####[facility] [address] [place], [address] Bilirubin [Mass/Vol] 0.62 mg/dL Normal 0.00-1.30 [facility] Comment on above: Performed By: #### L 500.4050, L100.0100 ####[facility] [address] [place], [address] BUN/CRE 21.9 RATIO High 10-20 [facility] Comment on above: Performed By: #### L 500.4050, L100.0100 ####[facility] [address] [place], [address] Calcium [Mass/Vol] 8.1 mg/dL Normal 7.6-11.0 [facility] Comment on above: Performed By: #### L 500.4050, L100.0100 ####[facility] [address] [place], [address] Chloride [Moles/Vol] 105 mmol/L Normal 98-108 [facility] Comment on above: Performed By: #### L 500.4050, L100.0100 ####[facility] [address] [place], [address] CO2 [Moles/Vol] 20.4 mmol/L Low 21.0-32.0 [facility] Comment on above: Performed By: #### L 500.4050, L100.0100 ####[facility] [address] [place], [address] Creatinine [Mass/Vol] 1.63 mg/dL High 0.70-1.20 [facility] Comment on above: Performed By: #### L 500.4050, L100.0100 ####[facility] [address] [place], [address] ECRCL 34.62 ml/min Low 50-250 [facility] Comment on above: Performed By: #### L 500.4050, L100.0100 ####[facility] [address] [place], [address] GAP 12 Normal 5-15 [facility] Comment on above: Performed By: #### L 500.4050, L100.0100 ####[facility] [address] [place], [address] GFR/1.73 sq M.predicted among non-blacks MDRD (S/P/Bld) [Vol rate/Area] 41 mL/min/{1.73_m2} Low >60 [facility] Comment on above: Result Comment: mL/m in/1.73m2 CKD-EPI Creatinine Equation (2020) Performed By: #### L 500.4050, L100.0100 ####[facility] [address] [place], [address] Globulin (S) [Mass/Vol] 2.7 g/dL Normal 2.2-4.2 [facility] Comment on above: Performed By: #### L 500.4050, L100.0100 ####[facility] [address] [place], [address] Glucose [Mass/Vol] 96 mg/dL Normal 70-99 [facility] Comment on above: Performed By: #### L 500.4050, L100.0100 ####[facility] [address] [place], [address] Potassium [Moles/Vol] 4.1 mmol/L Normal 3.3-5.1 [facility] Comment on above: Performed By: #### L 500.4050, L100.0100 ####[facility] [address] [place], [address] Sodium [Moles/Vol] 137 mmol/L Normal 133-145 [facility] Comment on above: Performed By: #### L 500.4050, L100.0100 ####[facility] [address] [place], [address] T PROT 5.7 g/dL Low 5.9-8.4 [facility] Comment on above: Performed By: #### L 500.4050, L100.0100 ####[facility] [address] [place], [address] Urea nitrogen [Mass/Vol] 36 mg/dL High 4-19 [facility] Comment on above: Performed By: #### L 500.4050, L100.0100 ####[facility] [address] [place], [address] Eosinophil percentageOrdered By: Pedro Galvan on 02-08-2025 Eosinophils/100 WBC (Bld) 3.1 % 0-5 [facility] Erythrocyte distribution wid th ratioOrdered By: Pedro Galvan on 02-08-2025 Erythrocyte distribution width (RBC) [Ratio] 14.6 % 11.6-14.6 [facility] Erythrocyte distribution wid th standard deviationOrdered By: Pedro Galvan on 02-08-2025 Erythrocyte distribution width (RBC) [Ratio] 46.5 fl High 35.1-43.9 [facility] Glomerular filtration rate ( GFR) estimation/1.73 sq m using serum, plasma, or whole bOrdered By: Pedro Galvan on 02-08-2025 GFR/1.73 sq M.predicted among non-blacks MDRD (S/P/Bld) [Vol rate/Area] 41 mL/min/{1.73_m2} Low >60 [facility] Comment on above: mL/min/1.73m2 CKD-EP I Creatinine Equation (2020) Hematocrit Auto (Bld) [Volum e fraction]Ordered By: Pedro Galvan on 02-08-2025 Hematocrit (Bld) [Volume fraction] 30.4 % Low 40-54 [facility] Hemoglobin measurementOrdere d By: Pedro Galvan on 02-08-2025 Hemoglobin (Bld) [Mass/Vol] 10.2 g/dL Low 13.0-16.5 [facility] Immature granulocytes/100 WB C Auto (Bld)Ordered By: Pedro Galvan on 02-08-2025 Immature granulocytes/100 WBC (Bld) 0.300 % 0.0-0.9 [facility] Comment on above: IG% - Immature Granu locytes (promyelocytes, myelocytes and metamyelocytes) > 1% indicates that a LEFT SHIFT is Present. Laboratory - Chemistry and C hemistry - challengeOrdered By: Pedro Galvan on 02-08-2025 AST [Catalytic activity/Vol] 29 U/L <38 [facility] MCV (mean corpuscular volume ) determinationOrdered By: Pedro Galvan on 02-08-2025 MCV (RBC) [Entitic vol] 86.6 fL 80-94 [facility] Mean corpuscular hemoglobin (MCH) determinationOrdered By: Pedro Galvan on 02-08-2025 MCH (RBC) [Entitic mass] 29.1 pg 27.0-32.0 [facility] Mean corpuscular hemoglobin concentration (MCHC) determinationOrdered By: Pedro Galvan on 02-08-2025 MCHC (RBC) [Mass/Vol] 33.6 g/dL 32-36 [facility] Mean platelet volume determi nationOrdered By: Pedro Galvan on 02-08-2025 Platelet mean volume (Bld) [Entitic vol] 11.2 fL 6.2-12.0 [facility] Monocyte percentageOrdered B y: Pedro Galvan on 02-08-2025 Monocytes/100 WBC (Bld) 6.6 % 0-10 [facility] Neutrophil percentageOrdered By: Pedro Galvan on 02-08-2025 Neutrophils/100 WBC (Bld) 51.1 % 47-70 [facility] Nucleated red blood cell per centageOrdered By: Pedro Galvan on 02-08-2025 Nucleated RBC/100 WBC (Bld) [Ratio] 0 % 0-5 [facility] Platelet countOrdered By: Wesley Galvan on 02-08-2025 Platelets (Bld) [#/Vol] 124 10*3/uL Low 150-450 [facility] Platelet estimateOrdered By: Pedro Galvan on 02-08-2025 Platelets LM Ql (Bld) SLT DEC ADEQ [facility] Platelet morphologyOrdered B y: Pedro Galvan on 02-08-2025 Platelet morphology finding Nom (Bld) GIANT [facility] Potassium measurement (mass/ volume)Ordered By: Pedro Galvan on 02-08-2025 Potassium (Unsp spec) [Mass/Vol] 4.1 mmol/L 3.3-5.1 [facility] RBC Auto (Bld) [#/Vol]Ordere d By: Pedro Galvan on 02-08-2025 RBC (Bld) [#/Vol] 3.51 10*6/uL Low 4.6-6.2 [facility] Serum creatinine measurement (mass/volume)Ordered By: Pedro Galvan on 02-08-2025 Creatinine [Mass/Vol] 1.63 mg/dL High 0.70-1.20 [facility] Serum globulin measurementOr dered By: Pedro Galvan on 02-08-2025 Globulin (S) [Mass/Vol] 2.7 g/dL 2.2-4.2 [facility] Serum glucose measurement (m ass/volume)Ordered By: Pedro Galvan on 02-08-2025 Glucose [Mass/Vol] 96 mg/dL 70-99 [facility] Serum or plasma alanine holm otransferase (ALT) measurementOrdered By: Pedro Galvan on 02-08-2025 ALT [Catalytic activity/Vol] 51 U/L High <47 [facility] Serum or plasma albumin kelli urement (mass/volume)Ordered By: Pedro Galvan on 02-08-2025 Albumin [Mass/Vol] 3.1 g/dL Low 3.4-4.8 [facility] Serum or plasma albumin/glob ulin mass ratioOrdered By: Pedro Galvan on 02-08-2025 Albumin/Globulin [Mass ratio] 1.2 {ratio} 0.9-2.4 [facility] Serum or plasma alkaline karen sphatase measurementOrdered By: Pedro Galvan on 02-08-2025 ALP [Catalytic activity/Vol] 103 U/L 40-129 [facility] Serum or plasma calcium kelli urement (mass/volume)Ordered By: Pedro Galvan on 02-08-2025 Calcium [Mass/Vol] 8.1 mg/dL 7.6-11.0 [facility] Serum or plasma urea nitroge n measurement (mass/volume)Ordered By: Pedro Galvan on 02-08-2025 Urea nitrogen [Mass/Vol] 36 mg/dL High 4-19 [facility] Sodium levelOrdered By: Pedro Galvan on 02-08-2025 Sodium [Moles/Vol] 137 mmol/L 133-145 [facility] Total proteinOrdered By: Sophia Galvan on 02-08-2025 Protein [Mass/Vol] 5.7 g/dL Low 5.9-8.4 [facility] White blood cell (WBC) count Ordered By: Pedro Galvan on 02-08-2025 WBC (Bld) [#/Vol] 5.7 10*3/uL 4.4-11.0 [facility] CBC W/Diff, Automatedon 06- ATYPICAL LYMPH 2+ Normal [facility] Comment on above: Performed By: #### L 500.4050, L100.0100 ####[facility] [address] [place], [address] OVALOCYTE 1+ Normal [facility] Comment on above: Performed By: #### L 500.4050, L100.0100 ####[facility] [address] [place], [address] PLT EST MOD DEC Normal ADEQ [facility] Comment on above: Performed By: #### L 500.4050, L100.0100 ####[facility] [address] [place], [address] Comprehensive Metabolic Prof ilon 02-07-2025 Albumin [Mass/Vol] 3.0 g/dL Low 3.4-4.8 [facility] Comment on above: Performed By: #### L 500.4050, L100.0100 ####[facility] [address] [place], [address] Albumin/Globulin [Mass ratio] 1.2 {ratio} Normal 0.9-2.4 [facility] Comment on above: Performed By: #### L 500.4050, L100.0100 ####[facility] [address] [place], [address] ALK PHOS 106 U/L Normal 40-129 [facility] Comment on above: Performed By: #### L 500.4050, L100.0100 ####[facility] [address] [place], [address] ALT [Catalytic activity/Vol] 59 U/L High <=46 [facility] Comment on above: Performed By: #### L 500.4050, L100.0100 ####[facility] [address] [place], [address] AST [Catalytic activity/Vol] 34 U/L Normal <=37 [facility] Comment on above: Performed By: #### L 500.4050, L100.0100 ####[facility] [address] [place], [address] Bilirubin [Mass/Vol] 0.70 mg/dL Normal 0.00-1.30 [facility] Comment on above: Performed By: #### L 500.4050, L100.0100 ####[facility] [address] [place], [address] BUN/CRE 25.7 RATIO High 10-20 [facility] Comment on above: Performed By: #### L 500.4050, L100.0100 ####[facility] [address] [place], [address] Calcium [Mass/Vol] 8.0 mg/dL Normal 7.6-11.0 [facility] Comment on above: Performed By: #### L 500.4050, L100.0100 ####[facility] [address] [place], [address] Chloride [Moles/Vol] 102 mmol/L Normal 98-108 [facility] Comment on above: Performed By: #### L 500.4050, L100.0100 ####[facility] [address] [place], [address] CO2 [Moles/Vol] 18.3 mmol/L Low 21.0-32.0 [facility] Comment on above: Performed By: #### L 500.4050, L100.0100 ####[facility] [address] [place], [address] Creatinine [Mass/Vol] 1.72 mg/dL High 0.70-1.20 [facility] Comment on above: Performed By: #### L 500.4050, L100.0100 ####[facility] [address] [place], [address] ECRCL 32.86 ml/min Low 50-250 [facility] Comment on above: Performed By: #### L 500.4050, L100.0100 ####[facility] [address] [place], [address] GAP 14 Normal 5-15 [facility] Comment on above: Performed By: #### L 500.4050, L100.0100 ####[facility] [address] [place], [address] GFR/1.73 sq M.predicted among non-blacks MDRD (S/P/Bld) [Vol rate/Area] 38 mL/min/{1.73_m2} Low >60 [facility] Comment on above: Result Comment: mL/m in/1.73m2 CKD-EPI Creatinine Equation (2020) Performed By: #### L 500.4050, L100.0100 ####[facility] [address] [place], [address] Globulin (S) [Mass/Vol] 2.6 g/dL Normal 2.2-4.2 [facility] Comment on above: Performed By: #### L 500.4050, L100.0100 ####[facility] [address] [place], [address] Glucose [Mass/Vol] 96 mg/dL Normal 70-99 [facility] Comment on above: Performed By: #### L 500.4050, L100.0100 ####[facility] [address] [place], [address] Potassium [Moles/Vol] 3.9 mmol/L Normal 3.3-5.1 [facility] Comment on above: Performed By: #### L 500.4050, L100.0100 ####[facility] [address] [place], [address] Sodium [Moles/Vol] 134 mmol/L Normal 133-145 [facility] Comment on above: Performed By: #### L 500.4050, L100.0100 ####[facility] [address] [place], [address] T PROT 5.5 g/dL Low 5.9-8.4 [facility] Comment on above: Performed By: #### L 500.4050, L100.0100 ####[facility] [address] [place], [address] Urea nitrogen [Mass/Vol] 44 mg/dL High 4-19 [facility] Comment on above: Performed By: #### L 500.4050, L100.0100 ####[facility] [address] [place], [address] Consultation - Surgicalon Consultation - Surgical Normal [facility] Hepatobilliary Img w/Pharm I nton 02-07-2025 Hepatobilliary Img w/Pharm Int Normal [facility] Ovalocyte detectionOrdered B y: Pedro Galvan on 02-07-2025 Ovalocytes LM Ql (Bld) 1+ [facility] Respiratory Cultureon 2024 RESPC List Antibiotics [place] t 48 Hours? zosyn Mixed normal respiratory ana rosa. No Streptococcus pneumoniae, beta-hemolytic Streptococcus or Staphylococcus aureus isolated. Normal [facility] Comment on above: Performed By: #### M 100.2000, M100.2400 ####[facility] [address] [place], [address] Basic Metabolic Profile (BMP )on 02-06-2025 BUN/CRE 25.9 RATIO High 10-20 [facility] Comment on above: Performed By: #### L 501.5200, L501.2300, L500.2500, L100.0100 ####[facility] [address] [place], [address] Calcium [Mass/Vol] 6.7 mg/dL Low 7.6-11.0 [facility] Comment on above: Performed By: #### L 501.5200, L501.2300, L500.2500, L100.0100 ####[facility] [address] [place], [address] Chloride [Moles/Vol] 106 mmol/L Normal 98-108 [facility] Comment on above: Performed By: #### L 501.5200, L501.2300, L500.2500, L100.0100 ####[facility] [address] [place], [address] CO2 [Moles/Vol] 15.5 mmol/L Low 21.0-32.0 [facility] Comment on above: Performed By: #### L 501.5200, L501.2300, L500.2500, L100.0100 ####[facility] [address] [place], [address] Creatinine [Mass/Vol] 1.47 mg/dL High 0.70-1.20 [facility] Comment on above: Performed By: #### L 501.5200, L501.2300, L500.2500, L100.0100 ####[facility] [address] [place], [address] ECRCL 37.64 ml/min Low 50-250 [facility] Comment on above: Performed By: #### L 501.5200, L501.2300, L500.2500, L100.0100 ####[facility] [address] [place], [address] GAP 12 Normal 5-15 [facility] Comment on above: Performed By: #### L 501.5200, L501.2300, L500.2500, L100.0100 ####[facility] [address] [place], [address] GFR/1.73 sq M.predicted among non-blacks MDRD (S/P/Bld) [Vol rate/Area] 46 mL/min/{1.73_m2} Low >60 [facility] Comment on above: Result Comment: mL/m in/1.73m2 CKD-EPI Creatinine Equation (2020) Performed By: #### L 501.5200, L501.2300, L500.2500, L100.0100 ####[facility] [address] [place], [address] Glucose [Mass/Vol] 97 mg/dL Normal 70-99 [facility] Comment on above: Performed By: #### L 501.5200, L501.2300, L500.2500, L100.0100 ####[facility] [address] [place], [address] Potassium [Moles/Vol] 4.0 mmol/L Normal 3.3-5.1 [facility] Comment on above: Result Comment: Hemo lysis present, Results??could be affected.?? Performed By: #### L 501.5200, L501.2300, L500.2500, L100.0100 ####[facility] [address] [place], [address] Sodium [Moles/Vol] 133 mmol/L Normal 133-145 [facility] Comment on above: Performed By: #### L 501.5200, L501.2300, L500.2500, L100.0100 ####[facility] [address] [place], [address] Urea nitrogen [Mass/Vol] 38 mg/dL High 4-19 [facility] Comment on above: Performed By: #### L 501.5200, L501.2300, L500.2500, L100.0100 ####[facility] [address] [place], [address] CBC W/Diff, Automatedon 01-13 ATYPICAL LYMPH 1+ Normal [facility] Comment on above: Performed By: #### L 501.5200, L501.2300, L500.2500, L100.0100 ####[facility] [address] [place], [address] Magnesiumon 02-06-2025 Magnesium [Mass/Vol] 2.0 mg/dL Normal 1.5-2.2 [facility] Comment on above: Performed By: #### L 501.5200, L501.2300, L500.2500, L100.0100 ####[facility] [address] [place], [address] Magnesium measurement (mass/ volume)Ordered By: Rea Cancino on 02-06-2025 Magnesium (Unsp spec) [Mass/Vol] 2.0 mg/dL 1.5-2.2 [facility] Phosphoruson 02-06-2025 Phosphate [Mass/Vol] 3.3 mg/dL Normal 2.7-4.5 [facility] Comment on above: Performed By: #### L 501.5200, L501.2300, L500.2500, L100.0100 ####[facility] [address] [place], [address] CBC W/Diff, Automatedon 01-13 Absolute Lymph 0.76 X10 3/uL Low 0.83-4.51 [facility] Comment on above: Performed By: #### L 500.4050, L500.4100, L501.9520, L100.0100 ####[facility] [address] [place], [address] Absolute Neut 3.4 X10 3/uL Normal 2.0-7.7 [facility] Comment on above: Performed By: #### L 500.4050, L500.4100, L501.9520, L100.0100 ####[facility] [address] [place], [address] Basophils/100 WBC (Bld) 0.2 % Normal 0-1 [facility] Comment on above: Performed By: #### L 500.4050, L500.4100, L501.9520, L100.0100 ####[facility] [address] [place], [address] Eosinophils/100 WBC (Bld) 0.0 % Normal 0-5 [facility] Comment on above: Performed By: #### L 500.4050, L500.4100, L501.9520, L100.0100 ####[facility] [address] [place], [address] Erythrocyte distribution width (RBC) [Ratio] 14.0 % Normal 11.6-14.6 [facility] Comment on above: Performed By: #### L 500.4050, L500.4100, L501.9520, L100.0100 ####[facility] [address] [place], [address] Hematocrit (Bld) [Volume fraction] 31.5 % Low 40-54 [facility] Comment on above: Performed By: #### L 500.4050, L500.4100, L501.9520, L100.0100 ####[facility] [address] [place], [address] Hemoglobin (Bld) [Mass/Vol] 10.7 g/dL Low 13.0-16.5 [facility] Comment on above: Performed By: #### L 500.4050, L500.4100, L501.9520, L100.0100 ####[facility] [address] [place], [address] IG% 0.400 Normal 0.0-0.9 [facility] Comment on above: Result Comment: IG% - Immature Granulocytes (promyelocytes, myelocytes andmetamyelocytes) > 1% indicates that a LEFT SHIFT is Present. Performed By: #### L 500.4050, L500.4100, L501.9520, L100.0100 ####[facility] [address] [place], [address] Lymphocytes/100 WBC (Bld) 16.4 % Low 19-41 [facility] Comment on above: Performed By: #### L 500.4050, L500.4100, L501.9520, L100.0100 ####[facility] [address] [place], [address] MCH (RBC) [Entitic mass] 29.5 pg Normal 27.0-32.0 [facility] Comment on above: Performed By: #### L 500.4050, L500.4100, L501.9520, L100.0100 ####[facility] [address] [place], [address] MCHC (RBC) [Mass/Vol] 34.0 g/dL Normal 32-36 [facility] Comment on above: Performed By: #### L 500.4050, L500.4100, L501.9520, L100.0100 ####[facility] [address] [place], [address] MCV (RBC) [Entitic vol] 86.8 fL Normal 80-94 [facility] Comment on above: Performed By: #### L 500.4050, L500.4100, L501.9520, L100.0100 ####[facility] [address] [place], [address] Monocytes/100 WBC (Bld) 9.1 % Normal 0-10 [facility] Comment on above: Performed By: #### L 500.4050, L500.4100, L501.9520, L100.0100 ####[facility] [address] [place], [address] Neutrophils/100 WBC (Bld) 73.9 % High 47-70 [facility] Comment on above: Performed By: #### L 500.4050, L500.4100, L501.9520, L100.0100 ####[facility] [address] [place], [address] Nucleated RBC (Bld) [#/Vol] 0 10*3/uL Normal 0-5 [facility] Comment on above: Performed By: #### L 500.4050, L500.4100, L501.9520, L100.0100 ####[facility] [address] [place], [address] Platelet mean volume (Bld) [Entitic vol] 10.9 fL Normal 6.2-12.0 [facility] Comment on above: Performed By: #### L 500.4050, L500.4100, L501.9520, L100.0100 ####[facility] [address] [place], [address] Platelets (Bld) [#/Vol] 86 10*3/uL Low 150-450 [facility] Comment on above: Performed By: #### L 500.4050, L500.4100, L501.9520, L100.0100 ####[facility] [address] [place], [address] RBC (Bld) [#/Vol] 3.63 10*6/uL Low 4.6-6.2 [facility] Comment on above: Performed By: #### L 500.4050, L500.4100, L501.9520, L100.0100 ####[facility] [address] [place], [address] RDW SD 45.0 fl High 35.1-43.9 [facility] Comment on above: Performed By: #### L 500.4050, L500.4100, L501.9520, L100.0100 ####[facility] [address] [place], [address] WBC (Bld) [#/Vol] 4.6 10*3/uL Normal 4.4-11.0 [facility] [facility] Comment on above: Performed By: #### L 500.4050, L500.4100, L501.9520, L100.0100 ####[facility] [address] [place], [address] Calculated very low density lipoprotein (VLDL) cholesterol measurementOrdered By: Rea Cancino on 2025 Calculated very low density lipoprotein (VLDL) cholesterol measurement 16 mg/dL 5-40 [facility] Comprehensive Metabolic Prof ilon 2025 Albumin [Mass/Vol] 3.4 g/dL Normal 3.4-4.8 [facility] Comment on above: Performed By: #### L 500.4050, L500.4100, L501.9520, L100.0100 ####[facility] [address] [place], [address] Albumin/Globulin [Mass ratio] 1.3 {ratio} Normal 0.9-2.4 [facility] Comment on above: Performed By: #### L 500.4050, L500.4100, L501.9520, L100.0100 ####[facility] [address] [place], [address] ALK PHOS 144 U/L High 40-129 [facility] Comment on above: Performed By: #### L 500.4050, L500.4100, L501.9520, L100.0100 ####[facility] [address] [place], [address] ALT [Catalytic activity/Vol] 86 U/L High <=46 [facility] Comment on above: Performed By: #### L 500.4050, L500.4100, L501.9520, L100.0100 ####[facility] [address] [place], [address] AST [Catalytic activity/Vol] 93 U/L High <=37 [facility] Comment on above: Performed By: #### L 500.4050, L500.4100, L501.9520, L100.0100 ####[facility] [address] [place], [address] Bilirubin [Mass/Vol] 0.75 mg/dL Normal 0.00-1.30 [facility] Comment on above: Performed By: #### L 500.4050, L500.4100, L501.9520, L100.0100 ####[facility] [address] [place], [address] BUN/CRE 27.3 RATIO High 10-20 [facility] Comment on above: Performed By: #### L 500.4050, L500.4100, L501.9520, L100.0100 ####[facility] [address] [place], [address] Calcium [Mass/Vol] 8.2 mg/dL Normal 7.6-11.0 [facility] Comment on above: Performed By: #### L 500.4050, L500.4100, L501.9520, L100.0100 ####[facility] [address] [place], [address] Chloride [Moles/Vol] 96 mmol/L Low 98-108 [facility] Comment on above: Performed By: #### L 500.4050, L500.4100, L501.9520, L100.0100 ####[facility] [address] [place], [address] CO2 [Moles/Vol] 18.7 mmol/L Low 21.0-32.0 [facility] Comment on above: Performed By: #### L 500.4050, L500.4100, L501.9520, L100.0100 ####[facility] [address] [place], [address] Creatinine [Mass/Vol] 1.82 mg/dL High 0.70-1.20 [facility] Comment on above: Performed By: #### L 500.4050, L500.4100, L501.9520, L100.0100 ####[facility] [address] [place], [address] ECRCL 30.24 ml/min Low 50-250 [facility] Comment on above: Performed By: #### L 500.4050, L500.4100, L501.9520, L100.0100 ####[facility] [address] [place], [address] GAP 15 Normal 5-15 [facility] Comment on above: Performed By: #### L 500.4050, L500.4100, L501.9520, L100.0100 ####[facility] [address] [place], [address] GFR/1.73 sq M.predicted among non-blacks MDRD (S/P/Bld) [Vol rate/Area] 36 mL/min/{1.73_m2} Low >60 [facility] Comment on above: Result Comment: mL/m in/1.73m2 CKD-EPI Creatinine Equation (2020) Performed By: #### L 500.4050, L500.4100, L501.9520, L100.0100 ####[facility] [address] [place], [address] Globulin (S) [Mass/Vol] 2.6 g/dL Normal 2.2-4.2 [facility] Comment on above: Performed By: #### L 500.4050, L500.4100, L501.9520, L100.0100 ####[facility] [address] [place], [address] Glucose [Mass/Vol] 121 mg/dL High 70-99 [facility] Comment on above: Performed By: #### L 500.4050, L500.4100, L501.9520, L100.0100 ####[facility] [address] [place], [address] Potassium [Moles/Vol] 3.5 mmol/L Normal 3.3-5.1 [facility] Comment on above: Performed By: #### L 500.4050, L500.4100, L501.9520, L100.0100 ####[facility] [address] [place], [address] Sodium [Moles/Vol] 130 mmol/L Low 133-145 [facility] Comment on above: Performed By: #### L 500.4050, L500.4100, L501.9520, L100.0100 ####[facility] [address] [place], [address] T PROT 5.9 g/dL Normal 5.9-8.4 [facility] Comment on above: Performed By: #### L 500.4050, L500.4100, L501.9520, L100.0100 ####[facility] [address] [place], [address] Urea nitrogen [Mass/Vol] 50 mg/dL High 4-19 [facility] Comment on above: Performed By: #### L 500.4050, L500.4100, L501.9520, L100.0100 ####[facility] [address] [place], [address] Consultation - Cardiologyon 2025 Consultation - Cardiology Normal [facility] Consultation - Intensiviston 2025 Consultation - Slag Mixer Normal [facility] Echo Limited w/Contraston Echo Limited w/Contrast Normal [facility] Electrocardiogram reportOrde red By: Cj Gardiner on 2025 EKG study [facility] Cardiovascular Services [address] [place] [address] 12 Lead EKG 02/04/25 1758 MR#: [id number] Acct: [id number] Name: FLORIN VARGAS Rep #:[id number] : [...] Abnormal ECG Confirmed by ABDIFATAH BROOKS, CJ ([id number]), website/blog editor SAMMI LIMA ([id number]) on 511:10:12 AM Referred By: Rea Cancino Confirmed By: CJ GARDINER MD 02/05/25 1110 Date _ Cj Gardiner MD CC: Dr. Rea Cancino MD; Dr. Maryanne Emanuel DO; Dr. Pedro Galvan DO; Dr. Pedro Gonzalez MD ~ Signed [facility] Work Phone: Gram Stainon 2025 GS List Antibiotics [place] t 48 Hours? zosyn Acceptable Specimen? Yes (<25 Epithelial cells per/lpf) Gram Stain 3+ Gram positive cocci 2+ Gram negative rods 2+ Epithelial cells 2+ Gram positive rods Normal [facility] Comment on above: Performed By: #### M 100.2000, M100.2400 ####[facility] [address] [place], [address] Gram stainOrdered By: Rea Cancino on 2025 Microscopic observation Gram stain Nom (Unsp spec) [facility] L509.7001on 2025 Procalcitonin 1.39 ng/mL High <=0.10 [facility] Comment on above: Result Comment: Inte rpretation:<0.10-0.25 ng/mL: Antibiotic therapy discouraged. Bacterialinfection unlikely.0.25-0.50 ng/mL: Antibiotic therapy encouraged. Bacterialinfection possible.>0.50 ng/mL: Antibiotic therapy strongly encouraged.Suggestive of presence of bacterial infection.PCT should always be interpreted in the clinical context ofthe patient. Therefore, clinicians should use the PCTresults in conjunction with other laboratory findings andclinical signs of the patient. Performed By: #### L 509.7001 ####[facility] [address] [place], [address] LDL calc ser/plasOrdered By: Rea Cancino on 2025 Cholesterol in LDL [Mass/Vol] 161 mg/dL [facility] Comment on above: Wrdnxwneqh=427-522 m g/dL & Higher Gnih=665 mg/dL or greater Limited echocardiogram repor tOrdered By: Cj Gardiner on [address] [facility] Cardiovascular Services [address] [place] [address] Echo Limited w/Contrast 02/05/25 0910 MR#: [id number] Acct: [id number] Name: FLORIN VARGAS Rep #:[id number] : [...] ~ Date Dictated: 02/05/25909 Date Transcribed: 02/05/251123 Office Clin Asst: Signed [facility] Work Phone: Lipid Profileon 2025 CHOL:HDL 4.74 Normal [facility] Comment on above: Performed By: #### L 500.4050, L500.4100, L501.9520, L100.0100 ####[facility] [address] [facility] [place], [address] Cholesterol [Mass/Vol] 224 mg/dL High <=200 [facility] Comment on above: Result Comment: Chol esterol level, Desirable <200 mg/dLBorderline high cholesterol 200-239 mg/dLHigh cholesterol >=240 mg/dLRecommendations of the NCEP Adult Treatment Panel for thefollowing risk-cutoff thresholds for the [place] Americanpopulation. Performed By: #### L 500.4050, L500.4100, L501.9520, L100.0100 ####[facility] [address] [place], [place], [address] Cholesterol in HDL [Mass/Vol] 47 mg/dL Normal [facility] Comment on above: Result Comment: Heather onal Cholesterol Education Program (NCEP) guidelines:<40 mg/dL: Low HDL-cholesterol (major risk factor for CHD)>= 60 mg/dL: High HDL-cholesterol (negative risk factor forCHD)HDL-cholesterol is affected by a number of factors, e.g.smoking, exercise, hormones, sex and age. Performed By: #### L 500.4050, L500.4100, L501.9520, L100.0100 ####[facility] [address] [place], [address] Cholesterol in LDL [Mass/Vol] 161 mg/dL Normal [facility] Comment on above: Result Comment: Bord sznkyv=475-771 mg/dL Higher Dctl=327 mg/dL or greater Performed By: #### L 500.4050, L500.4100, L501.9520, L100.0100 ####[facility] [address] [place], [address] Cholesterol in VLDL [Mass/Vol] 16 mg/dL Normal 5-40 [facility] Comment on above: Performed By: #### L 500.4050, L500.4100, L501.9520, L100.0100 ####[facility] [address] [place], [address] Triglyceride [Mass/Vol] 80 mg/dL Normal [facility] Comment on above: Result Comment: The drugs N-Acetylcysteine and Metamizole may falselydepress this assay.Normal range: <150 mg/dLBorderline High: 150-199 mg/dLHigh: 200-499 mg/dLVery High: >500 mg/dL Performed By: #### L 500.4050, L500.4100, L501.9520, L100.0100 ####[facility] [address] [place], [address] Microbial respiratory cultur eOrdered By: Rea Cancino on 2025 Microorganism identified Cx Nom (Unsp spec) or Staphylococcus aureus isolated. [facility] RESPIRATORY PANEL MOLECULARo n 2025 RP PANEL Normal [facility] Comment on above: Performed By: #### M 100.638 ####[facility] [address] [place], [place], [address] Respiratory pathogens detect ion panel by molecular detection methodOrdered By: Rea Cancino on 2025 Respiratory pathogens DNA and RNA panel RHIANNA+probe (Resp) [facility] Screening total cholesterol/ high density lipoprotein (HDL) cholesterol ratioOrdered By: Rea Cancino on 2025 Cholesterol.total/Cho lesterol in HDL [Mass ratio] 4.74 {ratio} [facility] Serum or plasma cholesterol in HDL measurement (mass/volume)Ordered By: Rea Cancino on 2025 Cholesterol in HDL [Mass/Vol] 47 mg/dL >40 [facility] Comment on above: National Cholesterol Education Program (NCEP) guidelines:<40 mg/dL: Low HDL-cholesterol (major risk factor for CHD)>= 60 mg/dL: High HDL-cholesterol (negative risk factor for CHD)HDL-cholesterol is affected by a number of factors, e.g. smoking, exercise, hormones, sex and age. Serum or plasma cholesterol measurement (mass/volume)Ordered By: Rea Cancino on 2025 Cholesterol [Mass/Vol] 224 mg/dL High <201 [facility] Comment on above: Cholesterol level, D esirable <200 mg/dLBorderline high cholesterol 200-239 mg/dLHigh cholesterol >=240 mg/dLRecommendations of the NCEP Adult Treatment Panel for the following risk-cutoff thresholds for the [place] population. TSH DL <= 0.005 mIU/L QnOrde red By: Rea Cancino on 2025 TSH Qn 1.900 uIU/mL 0.300-4.20 0 [facility] Thyroid Stim Hormone (TSH)on 2025 TSH 1.900 uIU/mL Normal 0.300-4.20 0 [facility] Comment on above: Performed By: #### L 500.4050, L500.4100, L501.9520, L100.0100 ####[facility] [address] [place], [place], [address] Triglycerides measurementOrd ered By: Rea White on 2025 Triglyceride [Mass/Vol] 80 mg/dL <199 [facility] Comment on above: The drugs N-Acetylcy steine and Metamizole may falsely depress this assay. Normal range: <150 mg/dLBorderline High: 150-199 mg/dLHigh: 200-499 mg/dLVery High: >500 mg/dL Urine Cultureon 2025 URC Culture exhibits no growth. Normal [facility] Comment on above: Performed By: #### L 400.0001, M100.2200 ####[facility] [address] [place], [address] 12 Lead EKGon 02-04-2025 12 Lead EKG Normal [facility] Absolute lymphocyte countOrd ered By: Maryanne Emanuel on 02-04-2025 Lymphocytes Auto (Unsp spec) [#/Vol] 0.70 10*3/uL Low 0.83-4.51 [facility] Absolute neutrophil countOrd ered By: Maryanne Emanuel on 02-04-2025 Neutrophils (Bld) [#/Vol] 4.5 10*3/uL 2.0-7.7 [facility] Activated partial thrombopla stin time (aPTT) in platelet poor plasma by coagulation aOrdered By: Maryanne Emanuel on 02-04-2025 aPTT Coag (PPP) [Time] 32.2 s 24.1-36.2 [facility] Amorphous sediment detection in urine sediment by light microscopyOrdered By: Maryanne Emanuel on 02-04-2025 Amorphous sediment LM Ql (Urine sed) 1+ [facility] Anion gap in Serum or Plasma Ordered By: Maryanne Emanuel on 02-04-2025 Anion gap [Moles/Vol] 15 mmol/L 5-15 [facility] Automated lymphocyte count a s percentage of total leukocytesOrdered By: Maryanne Emanuel on 02-04-2025 Lymphocytes/100 WBC Auto (Unsp spec) 12.3 % Low 19-41 [facility] BUN/creatinine ratioOrdered By: Maryanne Emanuel on 02-04-2025 Urea nitrogen/Creatinine [Mass ratio] 25.8 mg/mg High 10-20 [facility] Basophil percentageOrdered B y: Maryanne Emanuel on 02-04-2025 Basophils/100 WBC (Bld) 0.2 % 0-1 [facility] Bilirubin Test strip Ql (U)O rdered By: Maryanne Emanuel on 02-04-2025 Bilirubin Ql (U) Negative Negative [facility] Bilirubin, totalOrdered By: Maryanne Emanuel on 02-04-2025 Bilirubin [Mass/Vol] 0.66 mg/dL 0.00-1.30 [facility] Blood cultureOrdered By: Missy Emanuel on 02-04-2025 Bacteria identified Cx Nom (Bld) No growth in 5 days. [facility] Bacteria identified Cx Nom (Bld) No growth in 5 days. [facility] Blood manual differential co mment interpretation (narrative result)Ordered By: Maryanne Emanuel on 02-04-2025 Manual differential comment Tyrese (Bld) [Interp] SCANNED [facility] CBC W/Diff, Automatedon 01-13 PLT EST MOD DEC Normal ADEQ [facility] Comment on above: Performed By: #### M 200.1000, L501.4021, L300.4310, L100.0100, L503.6005, L300.3900, L501.5200, L500.4050 ####[facility] [address] [place], [place], [address] SMEAR COMMENT SCANNED Normal [facility] Comment on above: Performed By: #### M 200.1000, L501.4021, L300.4310, L100.0100, L503.6005, L300.3900, L501.5200, L500.4050 ####[facility] [address] [place], [place], [address] Platelet mean volume (Bld) [Entitic vol] 11.4 fL Normal 6.2-12.0 [facility] Comment on above: Performed By: #### M 200.1000, L501.4021, L300.4310, L100.0100, L503.6005, L300.3900, L501.5200, L500.4050 ####[facility] [address] [place], [address] Platelets (Bld) [#/Vol] 82 10*3/uL Low 150-450 [facility] Comment on above: Performed By: #### M 200.1000, L501.4021, L300.4310, L100.0100, L503.6005, L300.3900, L501.5200, L500.4050 ####[facility] [address] [place], [address] CO2 (BldV) [Moles/Vol]Ordere d By: Maryanne Emanuel on 02-04-2025 CO2 [Moles/Vol] 21 mmol/L Low 23-[address] [facility] [address] Chest, Abd, Pelvis WO Con ton 02-04-2025 CT Chest, Abd, Pelvis WO Cont Normal [facility] Carbon dioxide, total [Moles /volume] in Central venous bloodOrdered By: Maryanne Emanuel on 02-04-2025 CO2 [Moles/Vol] 18.4 mmol/L Low 21.0-32.0 [facility] Cardiology Visit Reporton Cardiology Visit Report Normal [facility] Chest 1 View (Portable)on Chest 1 View (Portable) Normal [facility] Chloride assayOrdered By: John Emanuel on 02-04-2025 Chloride [Moles/Vol] 92 mmol/L Low 98-108 [facility] Comprehensive Metabolic Prof ilon 02-04-2025 Albumin [Mass/Vol] 3.5 g/dL Normal 3.4-4.8 [facility] Comment on above: Performed By: #### M 200.1000, L501.4021, L300.4310, L100.0100, L503.6005, L300.3900, L501.5200, L500.4050 ####[facility] [address] [place], [address] Albumin/Globulin [Mass ratio] 1.5 {ratio} Normal 0.9-2.4 [facility] Comment on above: Performed By: #### M 200.1000, L501.4021, L300.4310, L100.0100, L503.6005, L300.3900, L501.5200, L500.4050 ####[facility] [address] [place], [address] ALK PHOS 137 U/L High 40-129 [facility] Comment on above: Performed By: #### M 200.1000, L501.4021, L300.4310, L100.0100, L503.6005, L300.3900, L501.5200, L500.4050 ####[facility] [address] [place], [address] ALT [Catalytic activity/Vol] 84 U/L High <=46 [facility] Comment on above: Performed By: #### M 200.1000, L501.4021, L300.4310, L100.0100, L503.6005, L300.3900, L501.5200, L500.4050 ####[facility] [address] [place], [address] AST [Catalytic activity/Vol] 108 U/L High <=37 [facility] Comment on above: Performed By: #### M 200.1000, L501.4021, L300.4310, L100.0100, L503.6005, L300.3900, L501.5200, L500.4050 ####[facility] [address] [place], [address] Bilirubin [Mass/Vol] 0.66 mg/dL Normal 0.00-1.30 [facility] Comment on above: Performed By: #### M 200.1000, L501.4021, L300.4310, L100.0100, L503.6005, L300.3900, L501.5200, L500.4050 ####[facility] [address] [place], [address] BUN/CRE 25.8 RATIO High 10-20 [facility] Comment on above: Performed By: #### M 200.1000, L501.4021, L300.4310, L100.0100, L503.6005, L300.3900, L501.5200, L500.4050 ####[facility] [address] [place], [address] Calcium [Mass/Vol] 8.0 mg/dL Normal 7.6-11.0 [facility] Comment on above: Performed By: #### M 200.1000, L501.4021, L300.4310, L100.0100, L503.6005, L300.3900, L501.5200, L500.4050 ####[facility] [address] [place], [address] Chloride [Moles/Vol] 92 mmol/L Low 98-108 [facility] Comment on above: Performed By: #### M 200.1000, L501.4021, L300.4310, L100.0100, L503.6005, L300.3900, L501.5200, L500.4050 ####[facility] [address] [place], [address] CO2 [Moles/Vol] 18.4 mmol/L Low 21.0-32.0 [facility] Comment on above: Performed By: #### M 200.1000, L501.4021, L300.4310, L100.0100, L503.6005, L300.3900, L501.5200, L500.4050 ####[facility] [address] [place], [address] Creatinine [Mass/Vol] 1.94 mg/dL High 0.70-1.20 [facility] Comment on above: Performed By: #### M 200.1000, L501.4021, L300.4310, L100.0100, L503.6005, L300.3900, L501.5200, L500.4050 ####[facility] [address] [place], [address] ECRCL 28.98 ml/min Low 50-250 [facility] Comment on above: Performed By: #### M 200.1000, L501.4021, L300.4310, L100.0100, L503.6005, L300.3900, L501.5200, L500.4050 ####[facility] [address] [place], [address] GAP 15 Normal 5-15 [facility] Comment on above: Performed By: #### M 200.1000, L501.4021, L300.4310, L100.0100, L503.6005, L300.3900, L501.5200, L500.4050 ####[facility] [address] [place], [address] GFR/1.73 sq M.predicted among non-blacks MDRD (S/P/Bld) [Vol rate/Area] 33 mL/min/{1.73_m2} Low >60 [facility] Comment on above: Result Comment: mL/m in/1.73m2 CKD-EPI Creatinine Equation (2020) Performed By: #### M 200.1000, L501.4021, L300.4310, L100.0100, L503.6005, L300.3900, L501.5200, L500.4050 ####[facility] [address] [place], [address] Globulin (S) [Mass/Vol] 2.4 g/dL Normal 2.2-4.2 [facility] Comment on above: Performed By: #### M 200.1000, L501.4021, L300.4310, L100.0100, L503.6005, L300.3900, L501.5200, L500.4050 ####[facility] [address] [place], [address] Glucose [Mass/Vol] 131 mg/dL High 70-99 [facility] Comment on above: Performed By: #### M 200.1000, L501.4021, L300.4310, L100.0100, L503.6005, L300.3900, L501.5200, L500.4050 ####[facility] [address] [place], [address] Potassium [Moles/Vol] 3.9 mmol/L Normal 3.3-5.1 [facility] Comment on above: Performed By: #### M 200.1000, L501.4021, L300.4310, L100.0100, L503.6005, L300.3900, L501.5200, L500.4050 ####[facility] [address] [place], [address] Sodium [Moles/Vol] 125 mmol/L Low 133-145 [facility] Comment on above: Performed By: #### M 200.1000, L501.4021, L300.4310, L100.0100, L503.6005, L300.3900, L501.5200, L500.4050 ####[facility] [address] [place], [address] T PROT 5.9 g/dL Normal 5.9-8.4 [facility] Comment on above: Performed By: #### M 200.1000, L501.4021, L300.4310, L100.0100, L503.6005, L300.3900, L501.5200, L500.4050 ####[facility] [address] [place], [address] Urea nitrogen [Mass/Vol] 50 mg/dL High 4-19 [facility] Comment on above: Performed By: #### M 200.1000, L501.4021, L300.4310, L100.0100, L503.6005, L300.3900, L501.5200, L500.4050 ####[facility] [address] [place], [address] Emergency Department Summary on 02-04-2025 Emergency Department Summary Normal [facility] Eosinophil percentageOrdered By: Maryanne Emanuel on 02-04-2025 Eosinophils/100 WBC (Bld) 0.0 % 0-5 [facility] Erythrocyte distribution wid th ratioOrdered By: Maryanne Emanuel on 02-04-2025 Erythrocyte distribution width (RBC) [Ratio] 13.9 % 11.6-14.6 [facility] Erythrocyte distribution wid th standard deviationOrdered By: Maryanne Emanuel on 02-04-2025 Erythrocyte distribution width (RBC) [Ratio] 43.8 fl 35.1-43.9 [facility] Gallbladderon 02-04-2025 Gallbladder Normal [facility] Glomerular filtration rate ( GFR) estimation/1.73 sq m using serum, plasma, or whole bOrdered By: Maryanne Emanuel on 02-04-2025 GFR/1.73 sq M.predicted among non-blacks MDRD (S/P/Bld) [Vol rate/Area] 33 mL/min/{1.73_m2} Low >60 [facility] Comment on above: mL/min/1.73m2 CKD-EP I Creatinine Equation (2020) H AND P Exam - Hospitaliston 02-04-2025 H&P Exam - Hospitalist Normal [facility] Hematocrit Auto (Bld) [Volum e fraction]Ordered By: Maryanne Emanuel on 02-04-2025 Hematocrit (Bld) [Volume fraction] 31.0 % Low 40-54 [facility] Hemoglobin measurementOrdere d By: Maryanne Emanuel on 02-04-2025 Hemoglobin (Bld) [Mass/Vol] 10.6 g/dL Low 13.0-16.5 [facility] Immature granulocytes/100 WB C Auto (Bld)Ordered By: Maryanne Emanuel on 02-04-2025 Immature granulocytes/100 WBC (Bld) 0.500 % 0.0-0.9 [facility] Comment on above: IG% - Immature Granu locytes (promyelocytes, myelocytes and metamyelocytes) > 1% indicates that a LEFT SHIFT is Present. International normalized rat io (INR) calculationOrdered By: Maryanne Emanuel on 02-04-2025 INR Coag (Bld) [Relative time] 1.3 {INR} [facility] Ketones Test strip Ql (U)Ord ered By: Maryanne Emanuel on 02-04-2025 Ketones Ql (U) Negative Negative [facility] L499.0042on 02-04-2025 Trop T High Sen 111 ng/L Invalid Interpretation Code <=22 [facility] Comment on above: Result Comment: Crit ical Result(s) Called MMARTIN at: 2036 by:ARANZA??Results read back by same. Performed By: #### L 499.0042 ####[facility] [address] [place], [address] L499.0043on 02-04-2025 Trop T High Sen 114 ng/L Invalid Interpretation Code <=22 [facility] Comment on above: Result Comment: Crit ical Result(s) Called ESMART at: 3 by:ARANZA??Results read back by same. Performed By: #### L 499.0043 ####[facility] [address] [place], [address] L501.4021on 02-04-2025 Trop T High Sen 108 ng/L Invalid Interpretation Code <=22 [facility] Comment on above: Result Comment: Crit ical Result(s) Called MMARTIN at: 2 by:ARANZA??Results read back by same. Performed By: #### M 200.1000, L501.4021, L300.4310, L100.0100, L503.6005, L300.3900, L501.5200, L500.4050 ####[facility] [address] [place], [place], [address] L503.7505on 02-04-2025 Natriuretic peptide B (Bld) [Mass/Vol] 89922 pg/mL High <=1800 [facility] Comment on above: Result Comment: Hear t Failure Unlikely: < 300 pg/mLHeart Failure Likely< 50 Years: > 450 pg/mL50-75 Years: > 900 pg/mL>75 Years: > 1800 pg/mL Performed By: #### L 503.7505 ####[facility] [address] [place], [place], [id number] Laboratory - Chemistry and C hemistry - challengeOrdered By: Maryanne Emanuel on 02-04-2025 AST [Catalytic activity/Vol] 108 U/L High <38 [facility] Lactic Acidon 02-04-2025 Lactate [Moles/Vol] 1.3 mmol/L Normal 0.0-2.0 [facility] Comment on above: Order Comment: Y Performed By: #### M 200.1000, L501.4021, L300.4310, L100.0100, L503.6005, L300.3900, L501.5200, L500.4050 ####[facility] [address] [facility] [place], [place], [address] Lactic acid measurementOrder ed By: Maryanne Emanuel on 02-04-2025 Lactate [Moles/Vol] 1.3 mmol/L 0.0-2.0 [facility] MCV (mean corpuscular volume ) determinationOrdered By: Maryanne Emanuel on 02-04-2025 MCV (RBC) [Entitic vol] 85.4 fL 80-94 [facility] Magnesiumon 02-04-2025 Magnesium [Mass/Vol] 2.1 mg/dL Normal 1.5-2.2 [facility] Comment on above: Performed By: #### M 200.1000, L501.4021, L300.4310, L100.0100, L503.6005, L300.3900, L501.5200, L500.4050 ####[facility] [address] [place], [address] Magnesium measurement (mass/ volume)Ordered By: Maryanne Emanuel on 02-04-2025 Magnesium (Unsp spec) [Mass/Vol] 2.1 mg/dL 1.5-2.2 [facility] Mean corpuscular hemoglobin (MCH) determinationOrdered By: Maryanne Emanuel on 02-04-2025 MCH (RBC) [Entitic mass] 29.2 pg 27.0-32.0 [facility] Mean corpuscular hemoglobin concentration (MCHC) determinationOrdered By: Maryanne Emanuel on 02-04-2025 MCHC (RBC) [Mass/Vol] 34.2 g/dL 32-36 [facility] Mean platelet volume determi nationOrdered By: Maryanne Emanuel on 02-04-2025 Platelet mean volume (Bld) [Entitic vol] 11.4 fL 6.2-12.0 [facility] Microscopic analysis of urin e for red blood cells (RBC)Ordered By: Maryanne Emanuel on 02-04-2025 Microscopic analysis of urine for red blood cells (RBC) 0-5 SEEN /hpf 0-5 [facility] Monocyte percentageOrdered B y: Maryanne Emanuel on 02-04-2025 Monocytes/100 WBC (Bld) 7.4 % 0-10 [facility] Mucus LM Ql (Urine sed)Order ed By: Maryanne Emanuel on 02-04-2025 Mucus Ql (Urine sed) 0 SEEN /hpf [facility] Natriuretic peptide.B prohor alirio N-Terminal [Mass/volume] in Serum or PlasmaOrdered By: Maryanne Emanuel on 02-04-2025 Natriuretic peptide.B prohormone N-Terminal [Mass/Vol] 15154 pg/mL High <1800 [facility] Comment on above: Heart Failure Unlike ly: < 300 pg/mLHeart Failure Likely< 50 Years: > 450 pg/mL50-75 Years: > 900 pg/mL>75 Years: > 1800 pg/mL Neutrophil percentageOrdered By: Maryanne Emanuel on 02-04-2025 Neutrophils/100 WBC (Bld) 79.6 % High 47-70 [facility] Nitrite Test strip Ql (U)Ord ered By: Maryanne Emanuel on 02-04-2025 Nitrite Ql (U) Negative Negative [facility] No Panel InformationOrdered By: Mayranne Emanuel on 02-04-2025 Blood Gas Sample Site Not entered [facility] Blood Gas Specimen Type HEIDI [facility] Oxygen Delivery Device Room Air [facility] Nucleated red blood cell per centageOrdered By: Maryanne Emanuel on 02-04-2025 Nucleated RBC/100 WBC (Bld) [Ratio] 0 % 0-5 [facility] Partial Thromboplast Timeon 02-04-2025 aPTT Coag (Bld) [Time] 32.2 s Normal 24.1-36.2 [facility] Comment on above: Performed By: #### M 200.1000, L501.4021, L300.4310, L100.0100, L503.6005, L300.3900, L501.5200, L500.4050 ####[facility] [address] [place], [address] Platelet countOrdered By: John Emanuel on 02-04-2025 Platelets (Bld) [#/Vol] 82 10*3/uL Low 150-450 [facility] Platelet estimateOrdered By: Maryanne Emanuel on 02-04-2025 Platelets LM Ql (Bld) MOD DEC ADEQ [facility] Potassium measurement (mass/ volume)Ordered By: Maryanne Emanuel on 02-04-2025 Potassium (Unsp spec) [Mass/Vol] 3.9 mmol/L 3.3-5.1 [facility] Procalcitonin [Mass/volume] in Serum or Plasma by ImmunoassayOrdered By: Rea Cancino on 02-04-2025 Procalcitonin IA [Mass/Vol] 1.39 ng/mL High <0.11 [facility] Comment on above: Interpretation:<0.10 -0.25 ng/mL: Antibiotic [...] Protein Ql (U) 30 mg/dl High Negative [facility] Prothrombin Time w/INRon INR Normal [facility] Comment on above: Result Comment: NICOLETTE MCKINNEY RN Performed By: #### L 300.3900 ####[facility] [address] [place], [address] PROTIME Normal 11.7-14.9 [facility] Comment on above: Result Comment: NICOLETTE MCKINNEY RN Performed By: #### L 300.3900 ####[facility] [address] [place], [address] INR Coag (PPP) [Relative time] 1.3 {INR} Normal [facility] Comment on above: Performed By: #### M 200.1000, L501.4021, L300.4310, L100.0100, L503.6005, L300.3900, L501.5200, L500.4050 ####[facility] [address] [place], [address] PT Coag (PPP) [Time] 16.0 s High 11.7-14.9 [facility] Comment on above: Performed By: #### M 200.1000, L501.4021, L300.4310, L100.0100, L503.6005, L300.3900, L501.5200, L500.4050 ####[facility] [address] [place], [address] Prothrombin timeOrdered By: Maryanne Emanuel on 02-04-2025 PT Coag (PPP) [Time] 16.0 s High 11.7-14.9 [facility] RBC Auto (Bld) [#/Vol]Ordere d By: Maryanne Emanuel on 02-04-2025 RBC (Bld) [#/Vol] 3.63 10*6/uL Low 4.6-6.2 [facility] Serum creatinine measurement (mass/volume)Ordered By: Maryanne Emanuel on 02-04-2025 Creatinine [Mass/Vol] 1.94 mg/dL High 0.70-1.20 [facility] Serum globulin measurementOr dered By: Maryanne Emanuel on 02-04-2025 Globulin (S) [Mass/Vol] 2.4 g/dL 2.2-4.2 [facility] Serum glucose measurement (m ass/volume)Ordered By: Maryanne Emanuel on 02-04-2025 Glucose [Mass/Vol] 131 mg/dL High 70-99 [facility] Serum or plasma alanine holm otransferase (ALT) measurementOrdered By: Maryanne Emanuel on 02-04-2025 ALT [Catalytic activity/Vol] 84 U/L High <47 [facility] Serum or plasma albumin kelli urement (mass/volume)Ordered By: Maryanne Emanuel on 02-04-2025 Albumin [Mass/Vol] 3.5 g/dL 3.4-4.8 [facility] Serum or plasma albumin/glob ulin mass ratioOrdered By: Maryanne Emanuel on 02-04-2025 Albumin/Globulin [Mass ratio] 1.5 {ratio} 0.9-2.4 [facility] Serum or plasma alkaline karen sphatase measurementOrdered By: Maryanne Emanuel on 02-04-2025 ALP [Catalytic activity/Vol] 137 U/L High 40-129 [facility] Serum or plasma calcium kelli urement (mass/volume)Ordered By: Maryanne Emanuel on 02-04-2025 Calcium [Mass/Vol] 8.0 mg/dL 7.6-11.0 [facility] Serum or plasma urea nitroge n measurement (mass/volume)Ordered By: Maryanne Emanuel on 02-04-2025 Urea nitrogen [Mass/Vol] 50 mg/dL High 4-19 [facility] Sodium levelOrdered By: Oliva Emanuel on 02-04-2025 Sodium [Moles/Vol] 125 mmol/L Low 133-145 [facility] Squamous epithelial cells de tection in urine sediment by light microscopyOrdered By: Maryanne Emanuel on 02-04-2025 Epithelial cells.squamous LM Ql (Urine sed) 0-5 SEEN /hpf 0-5 [facility] Total proteinOrdered By: Missy Emanuel on 02-04-2025 Protein [Mass/Vol] 5.9 g/dL 5.9-8.4 [facility] Troponin T.cardiac [Mass/vol ume] in Serum or Plasma by High sensitivity methodOrdered By: Maryanne Emanuel on 02-04-2025 Troponin T.cardiac High sensitivity method [Mass/Vol] 114 ng/L Critically high <22 [facility] Comment on above: Critical Result(s) C alled ESMART at: 2232 by: ARANZA Results read back by same. Troponin T.cardiac High sensitivity method [Mass/Vol] 111 ng/L Critically high <22 [facility] Comment on above: Critical Result(s) C alled MMARTIN at: 2036 by: ARANZA Results read back by same. Troponin T.cardiac High sensitivity method [Mass/Vol] 108 ng/L Critically high <22 [facility] Comment on above: Critical Result(s) C alled MMARTIN at: 1931 by: ARANZA Results read back by same. Urinalysis, Completeon 02-04 AMORPHOUS 1+ Normal [facility] Comment on above: Order Comment: KERI CTOR TO SPECIFY Performed By: #### L 400.0001, ####[facility] [address] [place], [place], [id number] BACTERIA 2+ /hpf Normal None Seen [facility] Comment on above: Order Comment: KERI CTOR TO SPECIFY Performed By: #### L 400.0001, ####[facility] [address] [place], [address] EPI,RENAL 0-5 SEEN Normal 0-5 [facility] Comment on above: Order Comment: KERI CTOR TO SPECIFY Performed By: #### L 400.0001, ####[facility] [address] [place], [address] EPI,SQUAMOUS 0-5 SEEN Normal 0-5 [facility] Comment on above: Order Comment: COLLE CTOR TO SPECIFY Performed By: #### L 400.0001, M100.2200 ####[facility] [address] [place], [address] RBC 0-5 SEEN Normal 0-5 [facility] Comment on above: Order Comment: COLLE CTOR TO SPECIFY Performed By: #### L 400.0001, M100.2200 ####[facility] [address] [place], [address] Mucus Ql (Urine sed) 0 SEEN Normal [facility] Comment on above: Order Comment: [facility] CTOR TO SPECIFY Performed By: #### L 400.0001, M100.2200 ####[facility] [address] [place], [address] WBC 0 SEEN Normal 0-5 [facility] Comment on above: Order Comment: [facility] CTOR TO SPECIFY Performed By: #### L 400.0001, M100.2200 ####[facility] [address] [place], [address] Urine clarityOrdered By: Missy Emanuel on 02-04-2025 Clarity (U) Sl. Cloudy Clear [facility] Urine color determinationOrd ered By: Maryanne Emanuel on 02-04-2025 Color (U) Yellow Yellow [facility] Urine cultureOrdered By: Missy Emanuel on 02-04-2025 Bacteria identified Cx Nom (U) Culture exhibits no growth. [facility] Urine glucose detectionOrder ed By: Maryanne Emanuel on 02-04-2025 Glucose Ql (U) Normal mg/dl Normal [facility] Urine leukocyte esterase det ection by dipstickOrdered By: Maryanne Emanuel on 02-04-2025 Leukocyte esterase Test strip Ql (U) Negative Negative [facility] Urine pHOrdered By: Maryanne zhao on 02-04-2025 pH (U) 5.0 [pH] 5.0 - 8.0 [facility] Urine sediment bacteria coun t by microscopy (number/high power field)Ordered By: Maryanne Emanuel on 02-04-2025 Bacteria LM.HPF (Urine sed) [#/Area] 2 /[HPF] None Seen [facility] Urine sediment renal epithel ial cell count by microscopy (number/high power field)Ordered By: Maryanne Emanuel on 02-04-2025 Epithelial cells.renal LM.HPF (Urine sed) [#/Area] 0 /[HPF] 0-5 [facility] Urine specific gravity measu rementOrdered By: Maryanne Emanuel on 02-04-2025 Specific gravity (U) [Rel density] 1.020 1.002-1.03 0 [facility] Urine urobilinogen measureme ntOrdered By: Maryanne Emanuel on 02-04-2025 Urobilinogen Ql (U) Normal mg/dl Normal [facility] Venous Blood Gason 5 Blood Gas Type HEIDI Normal [facility] Comment on above: Performed By: #### L 9000.0810 ####[facility] [address] [place], [place], [id number] CO2 [Moles/Vol] 21 mmol/L Low 23-33 [facility] Comment on above: Performed By: #### L 9000.0810 ####[facility] [address] [place], [place], [id number] HCO3 (Bld) [Moles/Vol] 20 mmol/L Low 22-26 [facility] Comment on above: Performed By: #### L 9000.0810 ####[facility] [address] [place], [place], [id number] O2 Delivery Dev Room Air Normal [facility] Comment on above: Performed By: #### L 9000.0810 ####[facility] [address] [place], [address] SITE Not entered Normal [facility] Comment on above: Performed By: #### L 9000.0810 ####[facility] [address] [place], [place], [id number] VBG BE -4 mmol/L Low -1.0-3.5 [facility] Comment on above: Performed By: #### L 9000.0810 ####[facility] [address] [place], [place], [phone] VBG pCO2 27.3 mmHg Low 41-51 [facility] Comment on above: Performed By: #### L 9000.0810 ####[facility] [address] [place], [address] VBG pH 7.47 High 7.32-7.42 [facility] Comment on above: Performed By: #### L 9000.0810 ####[facility] [address] [place], [address] VBG PO2 37 mmHg Normal 25-40 [facility] Comment on above: Performed By: #### L 9000.0810 ####[facility] [address] [place], [address] VBG SO2 76 High 50-70 [facility] Comment on above: Performed By: #### L 9000.0810 ####[facility] [address] [place], [address] Venous blood base excess irwin surementOrdered By: Maryanne Emanuel on 02-04-2025 Base excess Calc (BldV) [Moles/Vol] -4 mmol/L Low -1.0-3.5 [facility] Venous blood bicarbonate irwin surementOrdered By: Maryanne Emanuel on 02-04-2025 HCO3 (Bld) [Moles/Vol] 20 mmol/L Low 22-26 [facility] Venous blood oxygen saturati on measurementOrdered By: Maryanne Emanuel on 02-04-2025 Oxygen saturation in Blood 76 % High 50-70 [facility] Venous blood pH measurementO rdered By: Maryanne Emanuel on 02-04-2025 pH (BldV) 7.47 [pH] High 7.32-7.42 [facility] Venous blood partial pressur e of carbon dioxide measurementOrdered By: Maryanne Emanuel on 02-04-2025 CO2 (BldV) [Partial pressure] 27.3 mm[Hg] Low 41-51 [facility] Venous blood partial pressur e of oxygen measurementOrdered By: Maryanne Emanuel on 02-04-2025 Oxygen (BldV) [Partial pressure] 37 mm[Hg] 25-40 [facility] White blood cell (WBC) count Ordered By: Maryanne Emanuel on 02-04-2025 WBC (Bld) [#/Vol] 5.7 10*3/uL 4.4-11.0 [facility] White blood cell countOrdere d By: Maryanne Emanuel on 02-04-2025 White blood cell count 0 SEEN /hpf 0-5 [facility] Cardiology Visit Reporton Cardiology Visit Report Normal [facility] Basic Metabolic Profile (BMP )on 12-15-2024 BUN Normal 4-19 [facility] Comment on above: Result Comment: Canc elled via OM: Order cancelled - Patient discharged Performed By: #### L 500.2500, L100.0100 ####[facility] [address] [place], [address] BUN/CRE Normal 10-20 [facility] Comment on above: Result Comment: Canc elled via OM: Order cancelled - Patient discharged Performed By: #### L 500.2500, L100.0100 ####[facility] [address] [place], [address] Calcium Normal 7.6-11.0 [facility] Comment on above: Result Comment: Canc elled via OM: Order cancelled - Patient discharged Performed By: #### L 500.2500, L100.0100 ####[facility] [address] [place], [address] CL Normal 98-108 [facility] Comment on above: Result Comment: Canc elled via OM: Order cancelled - Patient discharged Performed By: #### L 500.2500, L100.0100 ####[facility] [address] [place], [address] CO2 Normal 21.0-32.0 [facility] Comment on above: Result Comment: Canc elled via OM: Order cancelled - Patient discharged Performed By: #### L 500.2500, L100.0100 ####[facility] [address] [place], [address] CREAT,SERUM Normal 0.70-1.20 [facility] Comment on above: Result Comment: Canc elled via OM: Order cancelled - Patient discharged Performed By: #### L 500.2500, L100.0100 ####[facility] [address] [place], [address] eGFR Normal >60 [facility] Comment on above: Result Comment: Canc elled via OM: Order cancelled - Patient discharged Performed By: #### L 500.2500, L100.0100 ####[facility] [address] [place], [address] GAP Normal 5-15 [facility] Comment on above: Result Comment: Canc elled via OM: Order cancelled - Patient discharged Performed By: #### L 500.2500, L100.0100 ####[facility] [address] [place], [address] GLU Normal 70-99 [facility] Comment on above: Result Comment: Canc elled via OM: Order cancelled - Patient discharged Performed By: #### L 500.2500, L100.0100 ####[facility] [address] [place], [address] Potassium Normal 3.3-5.1 [facility] Comment on above: Result Comment: Canc elled via OM: Order cancelled - Patient discharged Performed By: #### L 500.2500, L100.0100 ####[facility] [address] [place], [address] Basic Metabolic Profile (BMP) Normal 133-145 [facility] Comment on above: Result Comment: Canc elled via OM: Order cancelled - Patient discharged Performed By: #### L 500.2500, L100.0100 ####[facility] [address] [place], [address] CBC W/Diff, Automatedon 05-0 -2024 Absolute Neut Normal 2.0-7.7 [facility] Comment on above: Result Comment: Canc elled via OM: Order cancelled - Patient discharged Performed By: #### L 500.2500, L100.0100 ####[facility] [address] [place], [address] HCT Normal 40-54 [facility] Comment on above: Result Comment: Canc elled via OM: Order cancelled - Patient discharged Performed By: #### L 500.2500, L100.0100 ####[facility] [address] [place], [address] HGB Normal 13.0-16.5 [facility] Comment on above: Result Comment: Canc elled via OM: Order cancelled - Patient discharged Performed By: #### L 500.2500, L100.0100 ####[facility] [address] [place], [address] MCH Normal 27.0-32.0 [facility] Comment on above: Result Comment: Canc elled via OM: Order cancelled - Patient discharged Performed By: #### L 500.2500, L100.0100 ####[facility] [address] [place], [address] MCHC Normal 32-36 [facility] Comment on above: Result Comment: Canc elled via OM: Order cancelled - Patient discharged Performed By: #### L 500.2500, L100.0100 ####[facility] [address] [place], [address] MCV Normal 80-94 [facility] Comment on above: Result Comment: Canc elled via OM: Order cancelled - Patient discharged Performed By: #### L 500.2500, L100.0100 ####[facility] [address] [place], [address] NEUT% Normal 47-70 [facility] Comment on above: Result Comment: Canc elled via OM: Order cancelled - Patient discharged Performed By: #### L 500.2500, L100.0100 ####[facility] [address] [place], [address] PLT Normal 150-450 [facility] Comment on above: Result Comment: Canc elled via OM: Order cancelled - Patient discharged Performed By: #### L 500.2500, L100.0100 ####[facility] [address] [place], [address] RBC Normal 4.6-6.2 [facility] Comment on above: Result Comment: Canc elled via OM: Order cancelled - Patient discharged Performed By: #### L 500.2500, L100.0100 ####[facility] [address] [place], [address] RDW CV Normal 11.6-14.6 [facility] Comment on above: Result Comment: Canc elled via OM: Order cancelled - Patient discharged Performed By: #### L 500.2500, L100.0100 ####[facility] [address] [place], [address] RDW SD Normal 35.1-43.9 [facility] Comment on above: Result Comment: Canc elled via OM: Order cancelled - Patient discharged Performed By: #### L 500.2500, L100.0100 ####[facility] [address] [place], [address] WBC Normal 4.4-11.0 [facility] Comment on above: Result Comment: Canc elled via OM: Order cancelled - Patient discharged Performed By: #### L 500.2500, L100.0100 ####[facility] [address] [place], [address] Basic Metabolic Profile (BMP )on 12-14-2024 BUN Normal 4-19 [facility] Comment on above: Result Comment: Canc elled via OM: Order cancelled - Patient discharged Performed By: #### L 100.0100, L500.2500 ####[facility] [address] [place], [address] BUN/CRE Normal 10-20 [facility] Comment on above: Result Comment: Canc elled via OM: Order cancelled - Patient discharged Performed By: #### L 100.0100, L500.2500 ####[facility] [address] [place], [address] Calcium Normal 7.6-11.0 [facility] Comment on above: Result Comment: Canc elled via OM: Order cancelled - Patient discharged Performed By: #### L 100.0100, L500.2500 ####[facility] [address] [place], [address] CL Normal 98-108 [facility] Comment on above: Result Comment: Canc elled via OM: Order cancelled - Patient discharged Performed By: #### L 100.0100, L500.2500 ####[facility] [address] [place], [address] CO2 Normal 21.0-32.0 [facility] Comment on above: Result Comment: Canc elled via OM: Order cancelled - Patient discharged Performed By: #### L 100.0100, L500.2500 ####[facility] [address] [place], [address] CREAT,SERUM Normal 0.70-1.20 [facility] Comment on above: Result Comment: Canc elled via OM: Order cancelled - Patient discharged Performed By: #### L 100.0100, L500.2500 ####[facility] [address] [place], [address] eGFR Normal >60 [facility] Comment on above: Result Comment: Canc elled via OM: Order cancelled - Patient discharged Performed By: #### L 100.0100, L500.2500 ####[facility] [address] [place], [address] GAP Normal 5-15 [facility] Comment on above: Result Comment: Canc elled via OM: Order cancelled - Patient discharged Performed By: #### L 100.0100, L500.2500 ####[facility] [address] [place], [address] GLU Normal 70-99 [facility] Comment on above: Result Comment: Canc elled via OM: Order cancelled - Patient discharged Performed By: #### L 100.0100, L500.2500 ####[facility] [address] [place], [address] Potassium Normal 3.3-5.1 [facility] Comment on above: Result Comment: Canc elled via OM: Order cancelled - Patient discharged Performed By: #### L 100.0100, L500.2500 ####[facility] [address] [place], [address] Basic Metabolic Profile (BMP) Normal 133-145 [facility] Comment on above: Result Comment: Canc elled via OM: Order cancelled - Patient discharged Performed By: #### L 100.0100, L500.2500 ####[facility] [address] [place], [address] CBC W/Diff, Automatedon 05-0 -2024 Absolute Neut Normal 2.0-7.7 [facility] Comment on above: Result Comment: Canc elled via OM: Order cancelled - Patient discharged Performed By: #### L 100.0100, L500.2500 ####[facility] [address] [place], [address] HCT Normal 40-54 [facility] Comment on above: Result Comment: Canc elled via OM: Order cancelled - Patient discharged Performed By: #### L 100.0100, L500.2500 ####[facility] [address] [place], [address] HGB Normal 13.0-16.5 [facility] Comment on above: Result Comment: Canc elled via OM: Order cancelled - Patient discharged Performed By: #### L 100.0100, L500.2500 ####[facility] [address] [place], [address] MCH Normal 27.0-32.0 [facility] Comment on above: Result Comment: Canc elled via OM: Order cancelled - Patient discharged Performed By: #### L 100.0100, L500.2500 ####[facility] [address] [place], [address] MCHC Normal 32-36 [facility] Comment on above: Result Comment: Canc elled via OM: Order cancelled - Patient discharged Performed By: #### L 100.0100, L500.2500 ####[facility] [address] [place], [address] MCV Normal 80-94 [facility] Comment on above: Result Comment: Canc elled via OM: Order cancelled - Patient discharged Performed By: #### L 100.0100, L500.2500 ####[facility] [address] [place], [address] NEUT% Normal 47-70 [facility] Comment on above: Result Comment: Canc elled via OM: Order cancelled - Patient discharged Performed By: #### L 100.0100, L500.2500 ####[facility] [address] [place], [address] PLT Normal 150-450 [facility] Comment on above: Result Comment: Canc elled via OM: Order cancelled - Patient discharged Performed By: #### L 100.0100, L500.2500 ####[facility] [address] [place], [address] RBC Normal 4.6-6.2 [facility] Comment on above: Result Comment: Canc elled via OM: Order cancelled - Patient discharged Performed By: #### L 100.0100, L500.2500 ####[facility] [address] [place], [address] RDW CV Normal 11.6-14.6 [facility] Comment on above: Result Comment: Canc elled via OM: Order cancelled - Patient discharged Performed By: #### L 100.0100, L500.2500 ####[facility] [address] [place], [address] RDW SD Normal 35.1-43.9 [facility] Comment on above: Result Comment: Canc elled via OM: Order cancelled - Patient discharged Performed By: #### L 100.0100, L500.2500 ####[facility] [address] [place], [address] WBC Normal 4.4-11.0 [facility] Comment on above: Result Comment: Canc elled via OM: Order cancelled - Patient discharged Performed By: #### L 100.0100, L500.2500 ####[facility] [address] [place], [address] Absolute lymphocyte countOrd ered By: Gaurang Cortes on 12-13-2024 Lymphocytes Auto (Unsp spec) [#/Vol] 2.14 10*3/uL 0.83-4.51 [facility] Absolute neutrophil countOrd ered By: Gaurang Cortes on 12-13-2024 Neutrophils (Bld) [#/Vol] 2.8 10*3/uL 2.0-7.7 [facility] Anion gap in Serum or Plasma Ordered By: Gaurang Cortes on 12-13-2024 Anion gap [Moles/Vol] 11 mmol/L 5-15 [facility] Automated lymphocyte count a s percentage of total leukocytesOrdered By: Gaurang Cortes on 12-13-2024 Lymphocytes/100 WBC Auto (Unsp spec) 36.5 % - [facility] BUN/creatinine ratioOrdered By: Gaurang Cortes on 12-13-2024 Urea nitrogen/Creatinine [Mass ratio] 32.6 mg/mg High 10- [facility] Basic Metabolic Profile (BMP )on 12-13-2024 BUN/CRE 32.6 RATIO High 10- [facility] Comment on above: Performed By: #### L 100.0100, L500.2500, L501.5200, L501.2300 ####[facility] [address] [place], [address] Calcium [Mass/Vol] 9.1 mg/dL Normal 7.6-11.0 [facility] Comment on above: Performed By: #### L 100.0100, L500.2500, L501.5200, L501.2300 ####[facility] [address] [place], [address] Chloride [Moles/Vol] 101 mmol/L Normal 98-108 [facility] Comment on above: Performed By: #### L 100.0100, L500.2500, L501.5200, L501.2300 ####[facility] [address] [place], [address] CO2 [Moles/Vol] 24.2 mmol/L Normal 21.0-32.0 [facility] Comment on above: Performed By: #### L 100.0100, L500.2500, L501.5200, L501.2300 ####[facility] [address] [place], [address] Creatinine [Mass/Vol] 1.56 mg/dL High 0.70-1.20 [facility] Comment on above: Performed By: #### L 100.0100, L500.2500, L501.5200, L501.2300 ####[facility] [address] [place], [address] ECRCL 35.16 ml/min Low 50-250 [facility] Comment on above: Performed By: #### L 100.0100, L500.2500, L501.5200, L501.2300 ####[facility] [address] [place], [address] GAP 11 Normal 5-15 [facility] Comment on above: Performed By: #### L 100.0100, L500.2500, L501.5200, L501.2300 ####[facility] [address] [place], [address] GFR/1.73 sq M.predicted among non-blacks MDRD (S/P/Bld) [Vol rate/Area] 44 mL/min/{1.73_m2} Low >60 [facility] Comment on above: Result Comment: mL/m in/1.73m2 CKD-EPI Creatinine Equation (2020) Performed By: #### L 100.0100, L500.2500, L501.5200, L501.2300 ####[facility] [address] [place], [address] Glucose [Mass/Vol] 100 mg/dL High 70-99 [facility] Comment on above: Performed By: #### L 100.0100, L500.2500, L501.5200, L501.2300 ####[facility] [address] [place], [address] Potassium [Moles/Vol] 4.3 mmol/L Normal 3.3-5.1 [facility] Comment on above: Performed By: #### L 100.0100, L500.2500, L501.5200, L501.2300 ####[facility] [address] [place], [address] Sodium [Moles/Vol] 137 mmol/L Normal 133-145 [facility] Comment on above: Performed By: #### L 100.0100, L500.2500, L501.5200, L501.2300 ####[facility] [address] [place], [address] Urea nitrogen [Mass/Vol] 51 mg/dL High 4-19 [facility] Comment on above: Performed By: #### L 100.0100, L500.2500, L501.5200, L501.2300 ####[facility] [address] [place], [address] Basophil percentageOrdered B y: Gaurang Cortes on 12-13-2024 Basophils/100 WBC (Bld) 0.5 % 0-1 [facility] CBC W/Diff, Automatedon 05-0 Absolute Lymph 2.14 X10 3/uL Normal 0.83-4.51 [facility] Comment on above: Performed By: #### L 100.0100, L500.2500, L501.5200, L501.2300 ####[facility] [address] [place], [address] Absolute Neut 2.8 X10 3/uL Normal 2.0-7.7 [facility] Comment on above: Performed By: #### L 100.0100, L500.2500, L501.5200, L501.2300 ####[facility] [address] [place], [address] Basophils/100 WBC (Bld) 0.5 % Normal 0-1 [facility] Comment on above: Performed By: #### L 100.0100, L500.2500, L501.5200, L501.2300 ####[facility] [address] [place], [address] Eosinophils/100 WBC (Bld) 4.9 % Normal 0-5 [facility] Comment on above: Performed By: #### L 100.0100, L500.2500, L501.5200, L501.2300 ####[facility] [address] [place], [address] Erythrocyte distribution width (RBC) [Ratio] 14.9 % High 11.6-14.6 [facility] Comment on above: Performed By: #### L 100.0100, L500.2500, L501.5200, L501.2300 ####[facility] [address] [place], [address] Hematocrit (Bld) [Volume fraction] 32.2 % Low 40-54 [facility] Comment on above: Performed By: #### L 100.0100, L500.2500, L501.5200, L501.2300 ####[facility] [address] [place], [address] Hemoglobin (Bld) [Mass/Vol] 10.8 g/dL Low 13.0-16.5 [facility] Comment on above: Performed By: #### L 100.0100, L500.2500, L501.5200, L501.2300 ####[facility] [address] [place], [address] IG% 0.200 Normal 0.0-0.9 [facility] Comment on above: Result Comment: IG% - Immature Granulocytes (promyelocytes, myelocytes andmetamyelocytes) > 1% indicates that a LEFT SHIFT is Present. Performed By: #### L 100.0100, L500.2500, L501.5200, L501.2300 ####[facility] [address] [place], [address] Lymphocytes/100 WBC (Bld) 36.5 % Normal 19-41 [facility] Comment on above: Performed By: #### L 100.0100, L500.2500, L501.5200, L501.2300 ####[facility] [address] [place], [address] MCH (RBC) [Entitic mass] 30.0 pg Normal 27.0-32.0 [facility] Comment on above: Performed By: #### L 100.0100, L500.2500, L501.5200, L501.2300 ####[facility] [address] [place], [address] MCHC (RBC) [Mass/Vol] 33.5 g/dL Normal 32-36 [facility] Comment on above: Performed By: #### L 100.0100, L500.2500, L501.5200, L501.2300 ####[facility] [address] [place], [address] MCV (RBC) [Entitic vol] 89.4 fL Normal 80-94 [facility] Comment on above: Performed By: #### L 100.0100, L500.2500, L501.5200, L501.2300 ####[facility] [address] [place], [address] Monocytes/100 WBC (Bld) 10.9 % High 0-10 [facility] Comment on above: Performed By: #### L 100.0100, L500.2500, L501.5200, L501.2300 ####[facility] [address] [place], [address] Neutrophils/100 WBC (Bld) 47.0 % Normal 47-70 [facility] Comment on above: Performed By: #### L 100.0100, L500.2500, L501.5200, L501.2300 ####[facility] [address] [place], [address] Nucleated RBC (Bld) [#/Vol] 0 10*3/uL Normal 0-5 [facility] Comment on above: Performed By: #### L 100.0100, L500.2500, L501.5200, L501.2300 ####[facility] [address] [place], [address] Platelet mean volume (Bld) [Entitic vol] 10.7 fL Normal 6.2-12.0 [facility] Comment on above: Performed By: #### L 100.0100, L500.2500, L501.5200, L501.2300 ####[facility] [address] [place], [address] Platelets (Bld) [#/Vol] 157 10*3/uL Normal 150-450 [facility] Comment on above: Performed By: #### L 100.0100, L500.2500, L501.5200, L501.2300 ####[facility] [address] [place], [address] RBC (Bld) [#/Vol] 3.60 10*6/uL Low 4.6-6.2 [facility] Comment on above: Performed By: #### L 100.0100, L500.2500, L501.5200, L501.2300 ####[facility] [address] [place], [address] RDW SD 49.4 fl High 35.1-43.9 [facility] Comment on above: Performed By: #### L 100.0100, L500.2500, L501.5200, L501.2300 ####[facility] [address] [place], [address] WBC (Bld) [#/Vol] 5.9 10*3/uL Normal 4.4-11.0 [facility] Comment on above: Performed By: #### L 100.0100, L500.2500, L501.5200, L501.2300 ####[facility] [address] [place], [address] Carbon dioxide, total [Moles /volume] in Central venous bloodOrdered By: Gaurang Cortes on 12-13-2024 CO2 [Moles/Vol] 24.2 mmol/L 21.0-32.0 [facility] Chloride assayOrdered By: Vic Cortes on 12-13-2024 Chloride [Moles/Vol] 101 mmol/L 98-108 [facility] Eosinophil percentageOrdered By: Gaurang Cortes on 12-13-2024 Eosinophils/100 WBC (Bld) 4.9 % 0-5 [facility] Erythrocyte distribution wid th ratioOrdered By: Gaurang Cortes on 12-13-2024 Erythrocyte distribution width (RBC) [Ratio] 14.9 % High 11.6-14.6 [facility] Erythrocyte distribution wid th standard deviationOrdered By: Gaurang Cortes on 12-13-2024 Erythrocyte distribution width (RBC) [Ratio] 49.4 fl High 35.1-43.9 [facility] Glomerular filtration rate ( GFR) estimation/1.73 sq m using serum, plasma, or whole bOrdered By: Gaurang Cortes on 12-13-2024 GFR/1.73 sq M.predicted among non-blacks MDRD (S/P/Bld) [Vol rate/Area] 44 mL/min/{1.73_m2} Low >60 [facility] Comment on above: mL/min/1.73m2 CKD-EP I Creatinine Equation (2020) Hematocrit Auto (Bld) [Volum e fraction]Ordered By: Gaurang Cortes on 12-13-2024 Hematocrit (Bld) [Volume fraction] 32.2 % Low 40-54 [facility] Hemoglobin measurementOrdere d By: Gaurang Cortes on 12-13-2024 Hemoglobin (Bld) [Mass/Vol] 10.8 g/dL Low 13.0-16.5 [facility] Immature granulocytes/100 WB C Auto (Bld)Ordered By: Gaurang Cortes on 12-13-2024 Immature granulocytes/100 WBC (Bld) 0.200 % 0.0-0.9 [facility] Comment on above: IG% - Immature Granu locytes (promyelocytes, myelocytes and metamyelocytes) > 1% indicates that a LEFT SHIFT is Present. MCV (mean corpuscular volume ) determinationOrdered By: Gaurang Cortes on 12-13-2024 MCV (RBC) [Entitic vol] 89.4 fL 80-94 [facility] Magnesiumon 12-13-2024 Magnesium [Mass/Vol] 2.5 mg/dL High 1.5-2.2 [facility] Comment on above: Performed By: #### L 100.0100, L500.2500, L501.5200, L501.2300 ####[facility] [address] [place], [place], [address] Magnesium measurement (mass/ volume)Ordered By: Gaurang Cortes on 12-13-2024 Magnesium (Unsp spec) [Mass/Vol] 2.5 mg/dL High 1.5-2.2 [facility] Mean corpuscular hemoglobin (MCH) determinationOrdered By: Gaurang Cortes on 12-13-2024 MCH (RBC) [Entitic mass] 30.0 pg 27.0-32.0 [facility] Mean corpuscular hemoglobin concentration (MCHC) determinationOrdered By: Gaurang Cortes on 12-13-2024 MCHC (RBC) [Mass/Vol] 33.5 g/dL 32-36 [facility] Mean platelet volume determi nationOrdered By: Gaurang Cortes on 12-13-2024 Platelet mean volume (Bld) [Entitic vol] 10.7 fL 6.2-12.0 [facility] Monocyte percentageOrdered B y: Gaurang Cortes on 12-13-2024 Monocytes/100 WBC (Bld) 10.9 % High 0-10 [facility] Neutrophil percentageOrdered By: Gaurang Cortes on 05-02-2025 Neutrophils/100 WBC (Bld) 47.0 % 47-70 [facility] Nucleated red blood cell per centageOrdered By: Gaurang Cortes on 12-13-2024 Nucleated RBC/100 WBC (Bld) [Ratio] 0 % 0-5 [facility] Phosphoruson 12-13-2024 Phosphate [Mass/Vol] 3.6 mg/dL Normal 2.7-4.5 [facility] Comment on above: Performed By: #### L 100.0100, L500.2500, L501.5200, L501.2300 ####[facility] [address] [place], [address] Platelet countOrdered By: Vic Cortes on 12-13-2024 Platelets (Bld) [#/Vol] 157 10*3/uL 150-450 [facility] Potassium measurement (mass/ volume)Ordered By: Gaurang Cortes on 12-13-2024 Potassium (Unsp spec) [Mass/Vol] 4.3 mmol/L 3.3-5.1 [facility] RBC Auto (Bld) [#/Vol]Ordere d By: Gaurang Cortes on 12-13-2024 RBC (Bld) [#/Vol] 3.60 10*6/uL Low 4.6-6.2 [facility] Serum creatinine measurement (mass/volume)Ordered By: Gaurang Cortes on 12-13-2024 Creatinine [Mass/Vol] 1.56 mg/dL High 0.70-1.20 [facility] Serum glucose measurement (m ass/volume)Ordered By: Gaurang Cortes on 12-13-2024 Glucose [Mass/Vol] 100 mg/dL High 70-99 [facility] Serum or plasma calcium kelli urement (mass/volume)Ordered By: Gaurang Cortes on 12-13-2024 Calcium [Mass/Vol] 9.1 mg/dL 7.6-11.0 [facility] Serum or plasma urea nitroge n measurement (mass/volume)Ordered By: Gaurang Cortes on 12-13-2024 Urea nitrogen [Mass/Vol] 51 mg/dL High 4-19 [facility] Sodium levelOrdered By: Sebastien Cortes on 12-13-2024 Sodium [Moles/Vol] 137 mmol/L 133-145 [facility] White blood cell (WBC) count Ordered By: Gaurang Cortes on 12-13-2024 WBC (Bld) [#/Vol] 5.9 10*3/uL 4.4-11.0 [facility] 12 Lead EKGon 12-12-2024 12 Lead EKG Normal [facility] Basic Metabolic Profile (BMP )on 12-12-2024 BUN/CRE 32.4 RATIO High 10-20 [facility] Comment on above: Performed By: #### L 100.0100, L503.7505, L500.2500 ####[facility] [address] [place], [address] Calcium [Mass/Vol] 9.0 mg/dL Normal 7.6-11.0 [facility] Comment on above: Performed By: #### L 100.0100, L503.7505, L500.2500 ####[facility] [address] [place], [address] Chloride [Moles/Vol] 100 mmol/L Normal 98-108 [facility] Comment on above: Performed By: #### L 100.0100, L503.7505, L500.2500 ####[facility] [address] [place], [address] CO2 [Moles/Vol] 19.4 mmol/L Low 21.0-32.0 [facility] Comment on above: Performed By: #### L 100.0100, L503.7505, L500.2500 ####[facility] [address] [place], [address] Creatinine [Mass/Vol] 1.66 mg/dL High 0.70-1.20 [facility] Comment on above: Performed By: #### L 100.0100, L503.7505, L500.2500 ####[facility] [address] [place], [address] ECRCL 33.42 ml/min Low 50-250 [facility] Comment on above: Performed By: #### L 100.0100, L503.7505, L500.2500 ####[facility] [address] [place], [address] GAP 14 Normal 5-15 [facility] Comment on above: Performed By: #### L 100.0100, L503.7505, L500.2500 ####[facility] [address] [place], [address] GFR/1.73 sq M.predicted among non-blacks MDRD (S/P/Bld) [Vol rate/Area] 40 mL/min/{1.73_m2} Low >60 [facility] Comment on above: Result Comment: mL/m in/1.73m2 CKD-EPI Creatinine Equation (2020) Performed By: #### L 100.0100, L503.7505, L500.2500 ####[facility] [address] [place], [address] Glucose [Mass/Vol] 100 mg/dL High 70-99 [facility] Comment on above: Performed By: #### L 100.0100, L503.7505, L500.2500 ####[facility] [address] [place], [address] Potassium [Moles/Vol] 4.3 mmol/L Normal 3.3-5.1 [facility] Comment on above: Performed By: #### L 100.0100, L503.7505, L500.2500 ####[facility] [address] [place], [address] Sodium [Moles/Vol] 133 mmol/L Normal 133-145 [facility] Comment on above: Performed By: #### L 100.0100, L503.7505, L500.2500 ####[facility] [address] [place], [address] Urea nitrogen [Mass/Vol] 54 mg/dL High 4-19 [facility] Comment on above: Performed By: #### L 100.0100, L503.7505, L500.2500 ####[facility] [address] [place], [address] CBC W/Diff, Automatedon 05-0 -2024 Absolute Lymph 2.50 X10 3/uL Normal 0.83-4.51 [facility] Comment on above: Performed By: #### L 100.0100, L503.7505, L500.2500 ####[facility] [address] [place], [address] Absolute Neut 3.3 X10 3/uL Normal 2.0-7.7 [facility] Comment on above: Performed By: #### L 100.0100, L503.7505, L500.2500 ####[facility] [address] [place], [address] Basophils/100 WBC (Bld) 0.4 % Normal 0-1 [facility] Comment on above: Performed By: #### L 100.0100, L503.7505, L500.2500 ####[facility] [address] [place], [address] Eosinophils/100 WBC (Bld) 5.4 % High 0-5 [facility] Comment on above: Performed By: #### L 100.0100, L503.7505, L500.2500 ####[facility] [address] [place], [address] Erythrocyte distribution width (RBC) [Ratio] 14.8 % High 11.6-14.6 [facility] Comment on above: Performed By: #### L 100.0100, L503.7505, L500.2500 ####[facility] [address] [place], [address] Hematocrit (Bld) [Volume fraction] 32.1 % Low 40-54 [facility] Comment on above: Performed By: #### L 100.0100, L503.7505, L500.2500 ####[facility] [address] [place], [address] Hemoglobin (Bld) [Mass/Vol] 11.0 g/dL Low 13.0-16.5 [facility] Comment on above: Performed By: #### L 100.0100, L503.7505, L500.2500 ####[facility] [address] [place], [address] IG% 0.300 Normal 0.0-0.9 [facility] Comment on above: Result Comment: IG% - Immature Granulocytes (promyelocytes, myelocytes andmetamyelocytes) > 1% indicates that a LEFT SHIFT is Present. Performed By: #### L 100.0100, L503.7505, L500.2500 ####[facility] [address] [place], [address] Lymphocytes/100 WBC (Bld) 36.4 % Normal 19-41 [facility] Comment on above: Performed By: #### L 100.0100, L503.7505, L500.2500 ####[facility] [address] [place], [address] MCH (RBC) [Entitic mass] 30.4 pg Normal 27.0-32.0 [facility] Comment on above: Performed By: #### L 100.0100, L503.7505, L500.2500 ####[facility] [address] [place], [address] MCHC (RBC) [Mass/Vol] 34.3 g/dL Normal 32-36 [facility] Comment on above: Performed By: #### L 100.0100, L503.7505, L500.2500 ####[facility] [address] [place], [address] MCV (RBC) [Entitic vol] 88.7 fL Normal 80-94 [facility] Comment on above: Performed By: #### L 100.0100, L503.7505, L500.2500 ####[facility] [address] [place], [address] Monocytes/100 WBC (Bld) 10.2 % High 0-10 [facility] Comment on above: Performed By: #### L 100.0100, L503.7505, L500.2500 ####[facility] [address] [place], [address] Neutrophils/100 WBC (Bld) 47.3 % Normal 47-70 [facility] Comment on above: Performed By: #### L 100.0100, L503.7505, L500.2500 ####[facility] [address] [place], [address] Nucleated RBC (Bld) [#/Vol] 0 10*3/uL Normal 0-5 [facility] Comment on above: Performed By: #### L 100.0100, L503.7505, L500.2500 ####[facility] [address] [place], [address] Platelet mean volume (Bld) [Entitic vol] 10.8 fL Normal 6.2-12.0 [facility] Comment on above: Performed By: #### L 100.0100, L503.7505, L500.2500 ####[facility] [address] [place], [address] Platelets (Bld) [#/Vol] 138 10*3/uL Low 150-450 [facility] Comment on above: Performed By: #### L 100.0100, L503.7505, L500.2500 ####[facility] [address] [place], [address] RBC (Bld) [#/Vol] 3.62 10*6/uL Low 4.6-6.2 [facility] Comment on above: Performed By: #### L 100.0100, L503.7505, L500.2500 ####[facility] [address] [place], [address] RDW SD 48.0 fl High 35.1-43.9 [facility] Comment on above: Performed By: #### L 100.0100, L503.7505, L500.2500 ####[facility] [address] [place], [address] WBC (Bld) [#/Vol] 6.9 10*3/uL Normal 4.4-11.0 [facility] Comment on above: Performed By: #### L 100.0100, L503.7505, L500.2500 ####[facility] [address] [place], [address] Chest PA and Lateralon 12-12 Chest PA and Lateral Normal [facility] Echo Complete W/ Contraston 12-12-2024 Echo Complete W/ Contrast Normal [facility] Emergency Department Summary on 12-12-2024 Emergency Department Summary Normal [facility] H AND P Exam - Hospitaliston 12-12-2024 H&P Exam - Hospitalist Normal [facility] L503.7505on 12-12-2024 Natriuretic peptide B (Bld) [Mass/Vol] 8635 pg/mL High <=1800 [facility] Comment on above: Result Comment: Hear t Failure Unlikely: < 300 pg/mLHeart Failure Likely< 50 Years: > 450 pg/mL50-75 Years: > 900 pg/mL>75 Years: > 1800 pg/mL Performed By: #### L 100.0100, L503.7505, L500.2500 ####[facility] [address] [place], [address] Natriuretic peptide.B prohor alirio N-Terminal [Mass/volume] in Serum or PlasmaOrdered By: Jose Lopez on 12-12-2024 Natriuretic peptide.B prohormone N-Terminal [Mass/Vol] 8635 pg/mL High <1800 [facility] Comment on above: Heart Failure Unlike ly: < 300 pg/mLHeart Failure Likely< 50 Years: > 450 pg/mL50-75 Years: > 900 pg/mL>75 Years: > 1800 pg/mL Anion gap in Serum or Plasma Ordered By: Karo Sewell on 11-18-2024 Anion gap [Moles/Vol] 13 mmol/L - [facility] BUN/creatinine ratioOrdered By: Karo Sewell on 11-18-2024 Urea nitrogen/Creatinine [Mass ratio] 27.3 mg/mg High 10- [facility] Basic Metabolic Profile (BMP )on 11-18-2024 BUN/CRE 27.3 RATIO High - [facility] Comment on above: Order Comment: Order Date: 11/11/24Order Info: 0667-1 - BMP Performed By: #### L 500.2500 ####[facility] [address] [place], [address] Calcium [Mass/Vol] 9.3 mg/dL Normal 7.6-11.0 [facility] Comment on above: Order Comment: Order Date: 11/11/24Order Info: 0667-1 - BMP Performed By: #### L 500.2500 ####[facility] [address] [place], [address] Chloride [Moles/Vol] 99 mmol/L Normal 98-108 [facility] Comment on above: Order Comment: Order Date: 11/11/24Order Info: 0667-1 - BMP Performed By: #### L 500.2500 ####[facility] [address] [place], [address] CO2 [Moles/Vol] 25.0 mmol/L Normal 21.0-32.0 [facility] Comment on above: Order Comment: Order Date: 11/11/24Order Info: 666-08 - BMP Performed By: #### L 500.2500 ####[facility] [address] [place], [address] Creatinine [Mass/Vol] 1.50 mg/dL High 0.70-1.20 [facility] Comment on above: Order Comment: Order Date: 11/11/24Order Info: 666-08 - BMP Performed By: #### L 500.2500 ####[facility] [address] [place], [address] GAP 13 Normal 5-15 [facility] Comment on above: Order Comment: Order Date: 11/11/24Order Info: 666-08 - BMP Performed By: #### L 500.2500 ####[facility] [address] [place], [address] GFR/1.73 sq M.predicted among non-blacks MDRD (S/P/Bld) [Vol rate/Area] 46 mL/min/{1.73_m2} Low >60 [facility] Comment on above: Order Comment: Order Date: 11/11/24Order Info: 666-08 - BMP Result Comment: mL/m in/1.73m2 CKD-EPI Creatinine Equation (2020) Performed By: #### L 500.2500 ####[facility] [address] [place], [address] Glucose [Mass/Vol] 105 mg/dL High 70-99 [facility] Comment on above: Order Comment: Order Date: 11/11/24Order Info: 666-08 - BMP Performed By: #### L 500.2500 ####[facility] [address] [place], [address] Potassium [Moles/Vol] 4.4 mmol/L Normal 3.3-5.1 [facility] Comment on above: Order Comment: Order Date: 11/11/24Order Info: 666-08 - BMP Performed By: #### L 500.2500 ####[facility] [address] [place], [address] Sodium [Moles/Vol] 137 mmol/L Normal 133-145 [facility] Comment on above: Order Comment: Order Date: 11/11/24Order Info: 0667-1 - BMP Performed By: #### L 500.2500 ####[facility] [address] [place], [address] Urea nitrogen [Mass/Vol] 41 mg/dL High 4-19 [facility] Comment on above: Order Comment: Order Date: 11/11/24Order Info: 0667-1 - BMP Performed By: #### L 500.2500 ####[facility] [address] [place], [address] Carbon dioxide, total [Moles /volume] in Central venous bloodOrdered By: Karo Seewll on 11-18-2024 CO2 [Moles/Vol] 25.0 mmol/L 21.0-32.0 [facility] Chloride assayOrdered By: Wesley Sewell on 11-18-2024 Chloride [Moles/Vol] 99 mmol/L 98-108 [facility] GFR/1.73 sq M.predicted jorge g non-blacks MDRD (S/P/Bld) [Vol rate/Area]Ordered By: Karo Sewell on 11-18-2024 Estimated GFR (MDRD) Non-Af Amer 46 Low >60 [facility] Comment on above: mL/min/1.73m2 CKD-EP I Creatinine Equation (2020) Glomerular filtration rate ( GFR) estimation/1.73 sq m using serum, plasma, or whole bOrdered By: Karo Sewell on 11-18-2024 GFR/1.73 sq M.predicted among non-blacks MDRD (S/P/Bld) [Vol rate/Area] 46 mL/min/{1.73_m2} Low >60 [facility] Comment on above: mL/min/1.73m2 CKD-EP I Creatinine Equation (2020) L503.7505on 11-18-2024 Natriuretic peptide B (Bld) [Mass/Vol] 6905 pg/mL High <=1800 [facility] Comment on above: Order Comment: Order Date: 11/11/24Order Info: 0667-1 - BMP Result Comment: Hear t Failure Unlikely: < 300 pg/mLHeart Failure Likely< 50 Years: > 450 pg/mL50-75 Years: > 900 pg/mL>75 Years: > 1800 pg/mL Performed By: #### L 503.7505 ####[facility] [address] [place], [address] Natriuretic peptide.B prohor alirio N-Terminal [Mass/Vol]Ordered By: Karo Sewell on 11-18-2024 Natriuretic peptide B (Bld) [Mass/Vol] 6905 pg/mL High <1800 [facility] Comment on above: Heart Failure Unlike ly: < 300 pg/mLHeart Failure Likely< 50 Years: > 450 pg/mL50-75 Years: > 900 pg/mL>75 Years: > 1800 pg/mL Natriuretic peptide.B prohor alirio N-Terminal [Mass/volume] in Serum or PlasmaOrdered By: Karo Sewell on 11-18-2024 Natriuretic peptide.B prohormone N-Terminal [Mass/Vol] 6905 pg/mL High <1800 [facility] Comment on above: Heart Failure Unlike ly: < 300 pg/mLHeart Failure Likely< 50 Years: > 450 pg/mL50-75 Years: > 900 pg/mL>75 Years: > 1800 pg/mL Potassium (Unsp spec) [Mass/ Vol]Ordered By: Karo Sewell on 11-18-2024 Potassium [Moles/Vol] 4.4 mmol/L 3.3-5.1 [facility] Potassium measurement (mass/ volume)Ordered By: Karo Sewell on 11-18-2024 Potassium (Unsp spec) [Mass/Vol] 4.4 mmol/L 3.3-5.1 [facility] Serum creatinine measurement (mass/volume)Ordered By: Karo Sewell on 11-18-2024 Creatinine [Mass/Vol] 1.50 mg/dL High 0.70-1.20 [facility] Serum glucose measurement (m ass/volume)Ordered By: Karo Sewell on 11-18-2024 Glucose [Mass/Vol] 105 mg/dL High 70-99 [facility] Serum or plasma calcium kelli urement (mass/volume)Ordered By: Karo Sewell on 11-18-2024 Calcium [Mass/Vol] 9.3 mg/dL 7.6-11.0 [facility] Serum or plasma urea nitroge n measurement (mass/volume)Ordered By: Karo Sewell on 11-18-2024 Urea nitrogen [Mass/Vol] 41 mg/dL High 4-19 [facility] Sodium levelOrdered By: Karo Sewell on 11-18-2024 Sodium [Moles/Vol] 137 mmol/L 133-145 [facility] Anion gap in Serum or Plasma Ordered By: Karo Sewell on 11-04-2024 Anion gap [Moles/Vol] 14 mmol/L 5-15 [facility] BUN/creatinine ratioOrdered By: Karo Sewell on 11-04-2024 Urea nitrogen/Creatinine [Mass ratio] 24.2 mg/mg High 10-20 [facility] Basic Metabolic Profile (BMP )on 11-04-2024 BUN/CRE 24.2 RATIO High 10-20 [facility] Comment on above: Order Comment: Order Date: 11/04/24Order Info: 0667-1 - BMP Performed By: #### L 500.2500 ####[facility] [address] [place], [address] Calcium [Mass/Vol] 9.3 mg/dL Normal 7.6-11.0 [facility] Comment on above: Order Comment: Order Date: 11/04/24Order Info: 0667- - BMP Performed By: #### L 500.2500 ####[facility] [address] [place], [address] Chloride [Moles/Vol] 96 mmol/L Low 98-108 [facility] Comment on above: Order Comment: Order Date: 11/04/24Order Info: 0667-1 - BMP Performed By: #### L 500.2500 ####[facility] [address] [place], [address] CO2 [Moles/Vol] 23.4 mmol/L Normal 21.0-32.0 [facility] Comment on above: Order Comment: Order Date: 11/04/24Order Info: 666-08 - BMP Performed By: #### L 500.2500 ####[facility] [address] [place], [phone] Creatinine [Mass/Vol] 1.35 mg/dL High 0.70-1.20 [facility] Comment on above: Order Comment: Order Date: 11/04/24Order Info: 666-08 - BMP Performed By: #### L 500.2500 ####[facility] [address] [place], [address] GAP 14 Normal 5-15 [facility] Comment on above: Order Comment: Order Date: 11/04/24Order Info: 666-08 - BMP Performed By: #### L 500.2500 ####[facility] [address] [place], [address] GFR/1.73 sq M.predicted among non-blacks MDRD (S/P/Bld) [Vol rate/Area] 52 mL/min/{1.73_m2} Low >60 [facility] Comment on above: Order Comment: Order Date: 11/04/24Order Info: 666-08 - BMP Result Comment: mL/m in/1.73m2 CKD-EPI Creatinine Equation (2020) Performed By: #### L 500.2500 ####[facility] [address] [place], [address] Glucose [Mass/Vol] 95 mg/dL Normal 70-99 [facility] Comment on above: Order Comment: Order Date: 11/04/24Order Info: 666-08 - BMP Performed By: #### L 500.2500 ####[facility] [address] [place], [place], [phone] Potassium [Moles/Vol] 4.1 mmol/L Normal 3.3-5.1 [facility] Comment on above: Order Comment: Order Date: 11/04/24Order Info: 666-08 - BMP Performed By: #### L 500.2500 ####[facility] [address] [place], [place], [address] Sodium [Moles/Vol] 134 mmol/L Normal 133-145 [facility] Comment on above: Order Comment: Order Date: 11/04/24Order Info: 666-08 - BMP Performed By: #### L 500.2500 ####[facility] [address] [place], [place], [address] Urea nitrogen [Mass/Vol] 33 mg/dL High 4-19 [facility] Comment on above: Order Comment: Order Date: 11/04/24Order Info: 666-08 - BMP Performed By: #### L 500.2500 ####[facility] [address] [place], [address] Carbon dioxide, total [Moles /volume] in Central venous bloodOrdered By: Karo Sewell on 11-04-2024 CO2 [Moles/Vol] 23.4 mmol/L 21.0-32.0 [facility] Chloride assayOrdered By: Wesley Sewell on 11-04-2024 Chloride [Moles/Vol] 96 mmol/L Low 98-108 [facility] GFR/1.73 sq M.predicted jorge g non-blacks MDRD (S/P/Bld) [Vol rate/Area]Ordered By: Karo Sewell on 11-04-2024 Estimated GFR (MDRD) Non-Af Amer 52 Low >60 [facility] Comment on above: mL/min/1.73m2 CKD-EP I Creatinine Equation (2020) Glomerular filtration rate ( GFR) estimation/1.73 sq m using serum, plasma, or whole bOrdered By: Karo Sewell on 11-04-2024 GFR/1.73 sq M.predicted among non-blacks MDRD (S/P/Bld) [Vol rate/Area] 52 mL/min/{1.73_m2} Low >60 [facility] Comment on above: mL/min/1.73m2 CKD-EP I Creatinine Equation (2020) L503.7505on 11-04-2024 Natriuretic peptide B (Bld) [Mass/Vol] 5346 pg/mL High <=1800 [facility] Comment on above: Order Comment: Order Date: 11/04/24Order Info: 0667-1 - BMP Result Comment: Hear t Failure Unlikely: < 300 pg/mLHeart Failure Likely< 50 Years: > 450 pg/mL50-75 Years: > 900 pg/mL>75 Years: > 1800 pg/mL Performed By: #### L 503.7505 ####[facility] [address] [place], [address] Laboratory - Chemistry and C hemistry - challengeOrdered By: Karo Sewell on 11-04-2024 Natriuretic peptide B (Bld) [Mass/Vol] 5346 pg/mL High <1800 [facility] Comment on above: Heart Failure Unlike ly: < 300 pg/mLHeart Failure Likely< 50 Years: > 450 pg/mL50-75 Years: > 900 pg/mL>75 Years: > 1800 pg/mL Potassium (Unsp spec) [Mass/ Vol]Ordered By: Karo Sewell on 11-04-2024 Potassium [Moles/Vol] 4.1 mmol/L 3.3-5.1 [facility] Potassium measurement (mass/ volume)Ordered By: Karo Sewell on 11-04-2024 Potassium (Unsp spec) [Mass/Vol] 4.1 mmol/L 3.3-5.1 [facility] Serum creatinine measurement (mass/volume)Ordered By: Karo Sewell on 11-04-2024 Creatinine [Mass/Vol] 1.35 mg/dL High 0.70-1.20 [facility] Serum glucose measurement (m ass/volume)Ordered By: Karo Sewell on 11-04-2024 Glucose [Mass/Vol] 95 mg/dL 70-99 [facility] Serum or plasma calcium kelli urement (mass/volume)Ordered By: Karo Sewell on 11-04-2024 Calcium [Mass/Vol] 9.3 mg/dL 7.6-11.0 [facility] Serum or plasma urea nitroge n measurement (mass/volume)Ordered By: Karo Sewell on 11-04-2024 Urea nitrogen [Mass/Vol] 33 mg/dL High - [facility] Sodium levelOrdered By: Karo Sewell on 11-04-2024 Sodium [Moles/Vol] 134 mmol/L 133-145 [facility] Absolute neutrophil countOrd ered By: Andrzej Marinelli on 08-09-2024 Neutrophils (Bld) [#/Vol] 4.7 10*3/uL 2.0-7.7 [facility] Albumin to globulin ratioOrd ered By: Andrzej Marinelli on 08-09-2024 Albumin/Globulin [Mass ratio] 0.9 {ratio} 0.9-2.4 [facility] BNP (brain natriuretic pepti de measurement)Ordered By: Andrzej Marinelli on 08-09-2024 Natriuretic peptide B (Bld) [Mass/Vol] 786.9 pg/mL High 0-100 [facility] BNP,B-Type NATRIURETIC PEPTI [place] 08-09-2024 Natriuretic peptide B (Bld) [Mass/Vol] 786.9 pg/mL High 0-100 [facility] Comment on above: Performed By: #### L 100.0100, L501.5200, L501.9520, L501.9985, L500.4050, L500.4100, L503.6620, L506.0400 ####[facility] [address] [place], [address] Basophil percentageOrdered B y: Andrzej Marinelli on 08-09-2024 Basophils/100 WBC (Bld) 0.4 % 0-1 [facility] Bilirubin, totalOrdered By: Andrzej Marinelli on 08-09-2024 Bilirubin [Mass/Vol] 0.80 mg/dL 0.20-1.00 [facility] Comment on above: For patients on eltr ombopag therapy, use of Dimension [place] TBIL is not recommended. Blood urea nitrogen (BUN)/cr eatinine ratioOrdered By: Andrzej Marinelli on 08-09-2024 Urea nitrogen/Creatinine [Mass ratio] 24.4 mg/mg High 10-20 [facility] CBC W/Diff, Automatedon 12-2 Absolute Lymph 2.09 X10 3/uL Normal 0.83-4.51 [facility] Comment on above: Performed By: #### L 100.0100, L501.5200, L501.9520, L501.9985, L500.4050, L500.4100, L503.6620, L506.0400 ####[facility] [address] [place], [address] Absolute Neut 4.7 X10 3/uL Normal 2.0-7.7 [facility] Comment on above: Performed By: #### L 100.0100, L501.5200, L501.9520, L501.9985, L500.4050, L500.4100, L503.6620, L506.0400 ####[facility] [address] [place], [address] Basophils/100 WBC (Bld) 0.4 % Normal 0-1 [facility] Comment on above: Performed By: #### L 100.0100, L501.5200, L501.9520, L501.9985, L500.4050, L500.4100, L503.6620, L506.0400 ####[facility] [address] [place], [address] Eosinophils/100 WBC (Bld) 2.5 % Normal 0-5 [facility] Comment on above: Performed By: #### L 100.0100, L501.5200, L501.9520, L501.9985, L500.4050, L500.4100, L503.6620, L506.0400 ####[facility] [address] [place], [address] Erythrocyte distribution width (RBC) [Ratio] 14.6 % Normal 11.6-14.6 [facility] Comment on above: Performed By: #### L 100.0100, L501.5200, L501.9520, L501.9985, L500.4050, L500.4100, L503.6620, L506.0400 ####[facility] [address] [place], [address] Hematocrit (Bld) [Volume fraction] 36.5 % Low 40-54 [facility] Comment on above: Performed By: #### L 100.0100, L501.5200, L501.9520, L501.9985, L500.4050, L500.4100, L503.6620, L506.0400 ####[facility] [address] [place], [address] Hemoglobin (Bld) [Mass/Vol] 11.8 g/dL Low 13.0-16.5 [facility] Comment on above: Performed By: #### L 100.0100, L501.5200, L501.9520, L501.9985, L500.4050, L500.4100, L503.6620, L506.0400 ####[facility] [address] [place], [address] IG% 0.300 Normal 0.0-0.9 [facility] Comment on above: Result Comment: IG% - Immature Granulocytes (promyelocytes, myelocytes andmetamyelocytes) > 1% indicates that a LEFT SHIFT is Present. Performed By: #### L 100.0100, L501.5200, L501.9520, L501.9985, L500.4050, L500.4100, L503.6620, L506.0400 ####[facility] [address] [place], [address] Lymphocytes/100 WBC (Bld) 27.5 % Normal 19-41 [facility] Comment on above: Performed By: #### L 100.0100, L501.5200, L501.9520, L501.9985, L500.4050, L500.4100, L503.6620, L506.0400 ####[facility] [address] [place], [address] MCH (RBC) [Entitic mass] 28.9 pg Normal 27.0-32.0 [facility] Comment on above: Performed By: #### L 100.0100, L501.5200, L501.9520, L501.9985, L500.4050, L500.4100, L503.6620, L506.0400 ####[facility] [address] [place], [address] MCHC (RBC) [Mass/Vol] 32.3 g/dL Normal 32-36 [facility] Comment on above: Performed By: #### L 100.0100, L501.5200, L501.9520, L501.9985, L500.4050, L500.4100, L503.6620, L506.0400 ####[facility] [address] [place], [address] MCV (RBC) [Entitic vol] 89.5 fL Normal 80-94 [facility] Comment on above: Performed By: #### L 100.0100, L501.5200, L501.9520, L501.9985, L500.4050, L500.4100, L503.6620, L506.0400 ####[facility] [address] [place], [address] Monocytes/100 WBC (Bld) 7.9 % Normal 0-10 [facility] Comment on above: Performed By: #### L 100.0100, L501.5200, L501.9520, L501.9985, L500.4050, L500.4100, L503.6620, L506.0400 ####[facility] [address] [place], [address] Neutrophils/100 WBC (Bld) 61.4 % Normal 47-70 [facility] Comment on above: Performed By: #### L 100.0100, L501.5200, L501.9520, L501.9985, L500.4050, L500.4100, L503.6620, L506.0400 ####[facility] [address] [place], [address] Nucleated RBC (Bld) [#/Vol] 0 10*3/uL Normal 0-5 [facility] Comment on above: Performed By: #### L 100.0100, L501.5200, L501.9520, L501.9985, L500.4050, L500.4100, L503.6620, L506.0400 ####[facility] [address] [place], [address] Platelet mean volume (Bld) [Entitic vol] 10.5 fL Normal 6.2-12.0 [facility] Comment on above: Performed By: #### L 100.0100, L501.5200, L501.9520, L501.9985, L500.4050, L500.4100, L503.6620, L506.0400 ####[facility] [address] [place], [address] Platelets (Bld) [#/Vol] 142 10*3/uL Low 150-450 [facility] Comment on above: Performed By: #### L 100.0100, L501.5200, L501.9520, L501.9985, L500.4050, L500.4100, L503.6620, L506.0400 ####[facility] [address] [place], [address] RBC (Bld) [#/Vol] 4.08 10*6/uL Low 4.6-6.2 [facility] Comment on above: Performed By: #### L 100.0100, L501.5200, L501.9520, L501.9985, L500.4050, L500.4100, L503.6620, L506.0400 ####[facility] [address] [place], [place], [id number] RDW SD 47.4 fl High 35.1-43.9 [facility] Comment on above: Performed By: #### L 100.0100, L501.5200, L501.9520, L501.9985, L500.4050, L500.4100, L503.6620, L506.0400 ####[facility] [address] [place], [place], [id number] WBC (Bld) [#/Vol] 7.6 10*3/uL Normal 4.4-11.0 [facility] Comment on above: Performed By: #### L 100.0100, L501.5200, L501.9520, L501.9985, L500.4050, L500.4100, L503.6620, L506.0400 ####[facility] [address] [place], [place], [id number] Carbon dioxide measurementOr dered By: Andrzej Marinelli on 08-09-2024 CO2 [Moles/Vol] 25.0 mmol/L 21.0-32.0 [facility] Cardiology Visit Reporton Cardiology Visit Report Normal [facility] Chloride measurementOrdered By: Andrzej Marinelli on 08-09-2024 Chloride [Moles/Vol] 104 mmol/L 98-107 [facility] Comprehensive Metabolic Prof ilon 08-09-2024 Albumin [Mass/Vol] 3.4 g/dL Normal 3.2-5.0 [facility] Comment on above: Performed By: #### L 100.0100, L501.5200, L501.9520, L501.9985, L500.4050, L500.4100, L503.6620, L506.0400 ####[facility] [id number] [place], [address] Albumin/Globulin [Mass ratio] 0.9 {ratio} Normal 0.9-2.4 [facility] Comment on above: Performed By: #### L 100.0100, L501.5200, L501.9520, L501.9985, L500.4050, L500.4100, L503.6620, L506.0400 ####[facility] [id number] [place], [address] ALK P 93 U/L Normal 45-117 [facility] Comment on above: Performed By: #### L 100.0100, L501.5200, L501.9520, L501.9985, L500.4050, L500.4100, L503.6620, L506.0400 ####[facility] [id number] [place], [address] ALT [Catalytic activity/Vol] 33 U/L Normal 16-61 [facility] Comment on above: Performed By: #### L 100.0100, L501.5200, L501.9520, L501.9985, L500.4050, L500.4100, L503.6620, L506.0400 ####[facility] [address] [place], [place], [phone] AST [Catalytic activity/Vol] 19 U/L Normal 15-37 [facility] Comment on above: Performed By: #### L 100.0100, L501.5200, L501.9520, L501.9985, L500.4050, L500.4100, L503.6620, L506.0400 ####[facility] [address] [place], [address] Bilirubin [Mass/Vol] 0.80 mg/dL Normal 0.20-1.00 [facility] Comment on above: Result Comment: For patients on eltrombopag therapy, use of Dimension [place] TBIL is not recommended. Performed By: #### L 100.0100, L501.5200, L501.9520, L501.9985, L500.4050, L500.4100, L503.6620, L506.0400 ####[facility] [address] [place], [address] BUN/CRE 24.4 RATIO High 10-20 [facility] Comment on above: Performed By: #### L 100.0100, L501.5200, L501.9520, L501.9985, L500.4050, L500.4100, L503.6620, L506.0400 ####[facility] [address] [place], [address] CA,Total 8.7 mg/dL Normal 8.5-10.1 [facility] Comment on above: Performed By: #### L 100.0100, L501.5200, L501.9520, L501.9985, L500.4050, L500.4100, L503.6620, L506.0400 ####[facility] [address] [place], [address] Chloride [Moles/Vol] 104 mmol/L Normal 98-107 [facility] Comment on above: Performed By: #### L 100.0100, L501.5200, L501.9520, L501.9985, L500.4050, L500.4100, L503.6620, L506.0400 ####[facility] [address] [place], [address] CO2 [Moles/Vol] 25.0 mmol/L Normal 21.0-32.0 [facility] Comment on above: Performed By: #### L 100.0100, L501.5200, L501.9520, L501.9985, L500.4050, L500.4100, L503.6620, L506.0400 ####[facility] [address] [place], [place], [id number] Creatinine [Mass/Vol] 1.31 mg/dL High 0.70-1.30 [facility] Comment on above: Result Comment: The validity of the calculated GFR GFRAA in patients over70 years has not been determined. Clinical correlation isessential. Performed By: #### L 100.0100, L501.5200, L501.9520, L501.9985, L500.4050, L500.4100, L503.6620, L506.0400 ####[facility] [address] [place], [place], [id number] EST GFR - AA 67 mL/min Normal >60 [facility] Comment on above: Result Comment: Afri can Czech GFR Calc Performed By: #### L 100.0100, L501.5200, L501.9520, L501.9985, L500.4050, L500.4100, L503.6620, L506.0400 ####[facility] [address] [place], [place], [id number] GAP 7 Normal 5-15 [facility] Comment on above: Performed By: #### L 100.0100, L501.5200, L501.9520, L501.9985, L500.4050, L500.4100, L503.6620, L506.0400 ####[facility] [address] [place], [place], [id number] GFR/1.73 sq M.predicted among non-blacks MDRD (S/P/Bld) [Vol rate/Area] 55 mL/min/{1.73_m2} Low >60 [facility] Comment on above: Result Comment: Non- GFR Calc Performed By: #### L 100.0100, L501.5200, L501.9520, L501.9985, L500.4050, L500.4100, L503.6620, L506.0400 ####[facility] [address] [place], [address] Globulin (S) [Mass/Vol] 3.7 g/dL Normal 2.2-4.2 [facility] Comment on above: Performed By: #### L 100.0100, L501.5200, L501.9520, L501.9985, L500.4050, L500.4100, L503.6620, L506.0400 ####[facility] [address] [place], [address] Glucose [Mass/Vol] 98 mg/dL Normal 74-106 [facility] Comment on above: Performed By: #### L 100.0100, L501.5200, L501.9520, L501.9985, L500.4050, L500.4100, L503.6620, L506.0400 ####[facility] [address] [place], [address] Potassium [Moles/Vol] 4.2 mmol/L Normal 3.5-5.1 [facility] Comment on above: Performed By: #### L 100.0100, L501.5200, L501.9520, L501.9985, L500.4050, L500.4100, L503.6620, L506.0400 ####[facility] [address] [place], [address] Sodium [Moles/Vol] 136 mmol/L Normal 136-145 [facility] Comment on above: Performed By: #### L 100.0100, L501.5200, L501.9520, L501.9985, L500.4050, L500.4100, L503.6620, L506.0400 ####[facility] [address] [place], [address] T PROT 7.1 g/dL Normal 6.4-8.2 [facility] Comment on above: Performed By: #### L 100.0100, L501.5200, L501.9520, L501.9985, L500.4050, L500.4100, L503.6620, L506.0400 ####[facility] [address] [place], [place], [address] Urea nitrogen [Mass/Vol] 32 mg/dL High 7-18 [facility] Comment on above: Performed By: #### L 100.0100, L501.5200, L501.9520, L501.9985, L500.4050, L500.4100, L503.6620, L506.0400 ####[facility] [address] [facility] [place], [place], [id number] Direct serum free thyroxine (FT4) measurementOrdered By: Andrzej Marinelli on 08-09-2024 Free T4 [Mass/Vol] 1.04 ng/dL 0.76-1.46 [facility] Eosinophil percentageOrdered By: Andrzej Marinelli on 08-09-2024 Eosinophils/100 WBC (Bld) 2.5 % 0-5 [facility] Erythrocyte distribution wid th ratioOrdered By: Andrzej Marinelli on 08-09-2024 Erythrocyte distribution width (RBC) [Ratio] 14.6 % 11.6-14.6 [facility] Erythrocyte distribution wid th standard deviationOrdered By: Andrzej Marinelli on 08-09-2024 Erythrocyte distribution width (RBC) [Entitic vol] 47.4 fL High 35.1-43.9 [facility] Estimated glomerular filtrat ion rate (GFR) AmericanOrdered By: Andrzej Marinelli on 08-09-2024 Estimated GFR (MDRD) Amer 67 mL/min >60 [facility] Comment on above: GFR Calc Glomerular filtration rate ( GFR) estimationOrdered By: Andrzej Marinelli on 08-09-2024 Estimated GFR (MDRD) Non-Af Amer 55 mL/min Low >60 [facility] Comment on above: Non- GFR Calc Glucose measurementOrdered B y: Andrzej Marinelli on 08-09-2024 Glucose [Mass/Vol] 98 mg/dL 74-106 [facility] Hematocrit Auto (Bld) [Volum e fraction]Ordered By: Andrzej Marinelli on 08-09-2024 Hematocrit (Bld) [Volume fraction] 36.5 % Low 40-54 [facility] Hemoglobin A1con 08-09-2024 HbA1c (Bld) [Mass fraction] 5.7 % High 3.8-5.6 [facility] Comment on above: Result Comment: Norm al < 5.7 % Prediabetic 5.7 - 6.4 % Diabetic >or= 6.5 % Please note range changes. Performed By: #### L 100.0100, L501.5200, L501.9520, L501.9985, L500.4050, L500.4100, L503.6620, L506.0400 ####[facility] [address] [place], [address] Hemoglobin A1c percentageOrd ered By: Andrzej Marinelli on 08-09-2024 HbA1c (Bld) [Mass fraction] 5.7 % High 3.8-5.6 [facility] Comment on above: Normal < 5.7 % Predi abetic 5.7 - 6.4 % Diabetic >or= 6.5 % Please note range changes. Hemoglobin measurementOrdere d By: Andrzej Marinelli on 08-09-2024 Hemoglobin (Bld) [Mass/Vol] 11.8 g/dL Low 13.0-16.5 [facility] High density lipoprotein (HD L) measurementOrdered By: Andrzej Marinelli on 08-09-2024 Cholesterol in HDL [Mass/Vol] 68 mg/dL >40 [facility] Comment on above: The drugs N-Acetylcy steine and Metamizole may falsely depress this assay. Reference Range HDL <40 mg/dL Low HDL Cholesterol HDL >or= 60 mg/dL High HDL Cholesterol Immature granulocytes/100 WB C Auto (Bld)Ordered By: Andrzej Marinelli on 08-09-2024 Immature granulocytes/100 WBC (Bld) 0.300 % 0.0-0.9 [facility] Comment on above: IG% - Immature Granu locytes (promyelocytes, myelocytes and metamyelocytes) > 1% indicates that a LEFT SHIFT is Present. Laboratory - Chemistry and C hemistry - challengeOrdered By: Andrzej Marinelli on 08-09-2024 AST [Catalytic activity/Vol] 19 U/L 15-37 [facility] Lipid Profileon 08-09-2024 Cholesterol [Mass/Vol] 279 mg/dL High 200 [facility] Comment on above: Result Comment: <200 mg/dL Desirable 200-240 mg/dL Borderline >240 mg/dL High Risk Performed By: #### L 100.0100, L501.5200, L501.9520, L501.9985, L500.4050, L500.4100, L503.6620, L506.0400 ####[facility] [address] [place], [address] Cholesterol in HDL [Mass/Vol] 68 mg/dL Normal [facility] Comment on above: Result Comment: The drugs N-Acetylcysteine and Metamizole may falselydepress this assay. Reference Range HDL <40 mg/dL Low HDL Cholesterol HDL >or= 60 mg/dL High HDL Cholesterol Performed By: #### L 100.0100, L501.5200, L501.9520, L501.9985, L500.4050, L500.4100, L503.6620, L506.0400 ####[facility] [address] [place], [address] Cholesterol in LDL [Mass/Vol] 194 mg/dL High 0-130 [facility] Comment on above: Performed By: #### L 100.0100, L501.5200, L501.9520, L501.9985, L500.4050, L500.4100, L503.6620, L506.0400 ####[facility] [address] [place], [address] Cholesterol in VLDL [Mass/Vol] 17 mg/dL Normal 5-40 [facility] Comment on above: Performed By: #### L 100.0100, L501.5200, L501.9520, L501.9985, L500.4050, L500.4100, L503.6620, L506.0400 ####[facility] [address] [place], [place], [id number] Triglyceride [Mass/Vol] 84 mg/dL Normal [facility] Comment on above: Result Comment: The drugs N-Acetylcysteine and Metamizole may falselydepress this assay.Serum Triglycerides Reference Interval Normal <150 mg/dL Borderline high 150 - 199 mg/dL High 200 - 499 mg/dL Very High > or = 500 mg/dL Performed By: #### L 100.0100, L501.5200, L501.9520, L501.9985, L500.4050, L500.4100, L503.6620, L506.0400 ####[facility] [address] [place], [place], [id number] Low density lipoprotein (LDL ) cholesterol measurementOrdered By: Andrzej Marinelli on 08-09-2024 Cholesterol in LDL [Mass/Vol] 194 mg/dL High 0-130 [facility] Lymphocytes Auto (Unsp spec) [#/Vol]Ordered By: Andrzej Marinelli on 08-09-2024 Lymphocytes (Bld) [#/Vol] 2.09 10*3/uL 0.83-4.51 [facility] Lymphocytes/100 WBC Auto (Un sp spec)Ordered By: Andrzej Marinelli on 08-09-2024 Lymphocytes/100 WBC (Bld) 27.5 % 19-41 [facility] MCV (mean corpuscular volume ) determinationOrdered By: Andrzej Marinelli on 08-09-2024 MCV (RBC) [Entitic vol] 89.5 fL 80-94 [facility] Magnesiumon 08-09-2024 Magnesium [Mass/Vol] 2.3 mg/dL Normal 1.6-2.6 [facility] Comment on above: Performed By: #### L 100.0100, L501.5200, L501.9520, L501.9985, L500.4050, L500.4100, L503.6620, L506.0400 ####[facility] [address] [place], [address] Magnesium measurementOrdered By: Andrzej Marinelli on 08-09-2024 Magnesium [Mass/Vol] 2.3 mg/dL 1.6-2.6 [facility] Mean corpuscular hemoglobin (MCH) determinationOrdered By: Andrzej Marinelli on 08-09-2024 MCH (RBC) [Entitic mass] 28.9 pg 27.0-32.0 [facility] Mean corpuscular hemoglobin concentration (MCHC) determinationOrdered By: Andrzej Marinelli on 08-09-2024 MCHC (RBC) [Mass/Vol] 32.3 g/dL 32-36 [facility] Mean platelet volume determi nationOrdered By: Andrzej Marinelli on 08-09-2024 Platelet mean volume (Bld) [Entitic vol] 10.5 fL 6.2-12.0 [facility] Monocyte percentageOrdered B y: Andrzej Marinelli on 08-09-2024 Monocytes/100 WBC (Bld) 7.9 % 0-10 [facility] Neutrophil percentageOrdered By: Andrzej Marinelli on 08-09-2024 Neutrophils/100 WBC (Bld) 61.4 % 47-70 [facility] Nucleated red blood cell per centageOrdered By: Andrzej Marinelli on 08-09-2024 Nucleated RBC/100 WBC (Bld) [Ratio] 0 % 0-5 [facility] Platelet countOrdered By: Claire aMrinelli on 08-09-2024 Platelets (Bld) [#/Vol] 142 10*3/uL Low 150-450 [facility] Potassium measurementOrdered By: Andrzej Marinelli on 08-09-2024 Potassium [Moles/Vol] 4.2 mmol/L 3.5-5.1 [facility] RBC Auto (Bld) [#/Vol]Ordere d By: Andrzej Marinelli on 08-09-2024 RBC (Bld) [#/Vol] 4.08 10*6/uL Low 4.6-6.2 [facility] Serum anion gap measurementO rdered By: Andrzej Marinelli on 08-09-2024 Anion gap [Moles/Vol] 7 mmol/L 5-15 [facility] Serum globulin measurementOr dered By: Andrzej Marinelli on 08-09-2024 Globulin (S) [Mass/Vol] 3.7 g/dL 2.2-4.2 [facility] Serum or plasma alanine holm otransferase (ALT) measurementOrdered By: Andrzej Marinelli on 08-09-2024 ALT [Catalytic activity/Vol] 33 U/L 16-61 [facility] Serum or plasma albumin kelli urement (mass/volume)Ordered By: Andrzej Marinelli on 08-09-2024 Albumin [Mass/Vol] 3.4 g/dL 3.2-5.0 [facility] Serum or plasma alkaline karen sphatase measurementOrdered By: Andrzej Marinelli on 08-09-2024 ALP [Catalytic activity/Vol] 93 U/L 45-117 [facility] Serum or plasma calcium kelli urement (mass/volume)Ordered By: Andrzej Marinelli on 08-09-2024 Calcium [Mass/Vol] 8.7 mg/dL 8.5-10.1 [facility] Serum or plasma cholesterol measurement (mass/volume)Ordered By: Andrzej Marinelli on 08-09-2024 Cholesterol [Mass/Vol] 279 mg/dL High <200 [facility] Comment on above: <200 mg/dL Desirable 200-240 mg/dL Borderline >240 mg/dL High Risk Serum or plasma creatinine m easurement (mass/volume)Ordered By: Andrzej Marinelli on 08-09-2024 Creatinine [Mass/Vol] 1.31 mg/dL High 0.70-1.30 [facility] Comment on above: The validity of the calculated GFR & GFRAA in patients over 70 years has not been determined. Clinical correlation is essential. Serum or plasma urea nitroge n measurement (mass/volume)Ordered By: Andrzej Marinelli on 08-09-2024 Urea nitrogen [Mass/Vol] 32 mg/dL High 7-18 [facility] Sodium levelOrdered By: Andrzej Marinelli on 08-09-2024 Sodium [Moles/Vol] 136 mmol/L 136-145 [facility] T4 Free Directon 08-09-2024 T4 FREE DIRECT 1.04 ng/dL Normal 0.76-1.46 [facility] Comment on above: Performed By: #### L 100.0100, L501.5200, L501.9520, L501.9985, L500.4050, L500.4100, L503.6620, L506.0400 ####[facility] [address] [place], [place], [id number] TSH QnOrdered By: Andrzej Marinelli on 08-09-2024 Thyroid Stimulating Hormone (TSH) 2.000 uIU/mL 0.358-3.74 0 [facility] Thyroid Stim Hormone (TSH)on 08-09-2024 TSH 2.000 uIU/mL Normal 0.358-3.74 0 [facility] Comment on above: Performed By: #### L 100.0100, L501.5200, L501.9520, L501.9985, L500.4050, L500.4100, L503.6620, L506.0400 ####[facility] [address] [place], [place], [id number] Total proteinOrdered By: Martin Marinelli on 08-09-2024 Protein [Mass/Vol] 7.1 g/dL 6.4-8.2 [facility] Triglycerides measurementOrd ered By: Andrzej Marinelli on 08-09-2024 Triglyceride [Mass/Vol] 84 mg/dL <199 [facility] Comment on above: The drugs N-Acetylcy steine and Metamizole may falsely depress this assay.Serum Triglycerides Reference Interval Normal <150 mg/dL Borderline high 150 - 199 mg/dL High 200 - 499 mg/dL Very High > or = 500 mg/dL Very low density lipoprotein (VLDL) cholesterol measurementOrdered By: Andrzej Marinelli on 08-09-2024 VLDL Cholesterol 17 mg/dL 5-40 [facility] White blood cell (WBC) count Ordered By: Andrzej Marinelli on 08-09-2024 WBC (Bld) [#/Vol] 7.6 10*3/uL 4.4-11.0 [facility] Basophil percentageon 2021 Bilirubin [Mass/Vol] 0.80 mg/dL 0.20-1.00 [facility] Work Phone: Comment on above: For patients on eltr ombopag therapy, use of Dimension [place] TBIL is not recommended. Cholesterol [Mass/Vol] 279 mg/dL <200 [facility] Work Phone: Comment on above: <200 mg/dL Desirable 200-240 mg/dL Borderline >240 mg/dL High Risk Protein [Mass/Vol] 7.3 g/dL 6.4-8.2 [facility] Work Phone: Triglyceride [Mass/Vol] 82 mg/dL <199 [facility] Work Phone: Comment on above: The drugs N-Acetylcy steine and Metamizole may falsely depress this assay.Serum Triglycerides Reference Interval Normal <150 mg/dL Borderline high 150 - 199 mg/dL High 200 - 499 mg/dL Very High > or = 500 mg/dL Direct bilirubinon Bilirubin.direct [Mass/Vol] 0.19 mg/dL 0.00-0.30 [facility] Work Phone: [phone] Laboratory - Chemistry and C hemistry - challengeon 02-01-2022 ALP [Catalytic activity/Vol] 95 U/L 45-117 [facility] Work Phone: [phone] ALT [Catalytic activity/Vol] 27 U/L 16-61 [facility] Work Phone: [phone] Globulin (S) [Mass/Vol] 3.7 g/dL 2.2-4.2 [facility] Work Phone: [phone] Serum or plasma albumin kelli urement (mass/volume)on 02-01-2022 Albumin [Mass/Vol] 3.6 g/dL 3.2-5.0 [facility] Work Phone: [phone] Serum or plasma cholesterol in HDL measurement (mass/volume)on 02-01-2022 Cholesterol in HDL [Mass/Vol] 62 mg/dL >40 [facility] Work Phone: [phone] Comment on above: The drugs N-Acetylcy steine and Metamizole may falsely depress this assay. Reference Range HDL <40 mg/dL Low HDL Cholesterol HDL >or= 60 mg/dL High HDL Cholesterol Serum or plasma cholesterol in VLDL measurement (mass/volume)on 02-01-2022 Cholesterol in VLDL [Mass/Vol] 16 mg/dL 5-40 [facility] Work Phone: [phone] Serum or plasma low density lipoprotein (LDL) cholesterol measurement (mass/volume)on 02-01-2022 Cholesterol in LDL [Mass/Vol] 201 mg/dL 0-130 [facility] Work Phone: Thin prep Papanicolaou smear with manual screeningon 02-01-2022 Thin prep Papanicolaou smear with manual screening 21 U/L 15-37 [facility] Work Phone: Absolute lymphocyte counton 01-27-2022 Lymphocytes Auto (Unsp spec) [#/Vol] 2.48 10*3/uL 0.83-4.51 [facility] Work Phone: Basophil percentageon 2021 Basophils/100 WBC (Bld) 0.3 % 0-1 [facility] Work Phone: Bilirubin [Mass/Vol] 0.70 mg/dL 0.20-1.00 [facility] Work Phone: Comment on above: For patients on eltr ombopag therapy, use of Dimension [place] TBIL is not recommended. Chloride [Moles/Vol] 105 mmol/L 98-107 [facility] Work Phone: Eosinophils/100 WBC (Bld) 1.5 % 0-5 [facility] Work Phone: Glucose [Mass/Vol] 105 mg/dL 74-106 [facility] Work Phone: Comment on above: Fasting Glucose resu lt from 100 to 125 mg/dL suggests IMPAIRED HOMEOSTASIS per A.D.A. criteria. Neutrophils (Bld) [#/Vol] 3.5 10*3/uL 2.0-7.7 [facility] Work Phone: Neutrophils/100 WBC (Bld) 51.8 % 47-70 [facility] Work Phone: Potassium [Moles/Vol] 4.0 mmol/L 3.5-5.1 [facility] Work Phone: Protein [Mass/Vol] 7.2 g/dL 6.4-8.2 [facility] Work Phone: Sodium [Moles/Vol] 137 mmol/L 136-145 [facility] Work Phone: WBC (Bld) [#/Vol] 6.7 10*3/uL 4.4-11.0 [facility] Work Phone: Blood erythrocytes count (nu mber/volume)on 01-27-2022 RBC (Bld) [#/Vol] 4.62 10*6/uL 4.6-6.2 [facility] Work Phone: Blood hemoglobin measurement (mass/volume)on 01-27-2022 Hemoglobin (Bld) [Mass/Vol] 14.0 g/dL 13.0-16.5 [facility] Work Phone: Blood lymphocytes/100 leukoc yteson 01-27-2022 Lymphocytes/100 WBC (Bld) 37.2 % 19-41 [facility] Work Phone: Blood monocytes/100 leukocyt eson 01-27-2022 Monocytes/100 WBC (Bld) 8.9 % 0-10 [facility] Work Phone: Blood platelet mean volumeon 01-27-2022 Platelet mean volume (Bld) [Entitic vol] 10.3 fL 6.2-12.0 [facility] Work Phone: Determination of erythrocyte mean corpuscular volume (MCV)on 01-27-2022 MCV (RBC) [Entitic vol] 89.6 fL 80-94 [facility] Work Phone: Hematocrit Auto (Bld) [Volum e fraction]on 01-27-2022 Hematocrit (Bld) [Volume fraction] 41.4 % 40-54 [facility] Work Phone: Laboratory - Chemistry and C hemistry - challengeon 01-27-2022 ALP [Catalytic activity/Vol] 93 U/L 45-117 [facility] Work Phone: ALT [Catalytic activity/Vol] 24 U/L 16-61 [facility] Work Phone: CO2 [Moles/Vol] 26.0 mmol/L 21.0-32.0 [facility] Work Phone: [phone] Globulin (S) [Mass/Vol] 3.7 g/dL 2.2-4.2 [facility] Work Phone: [phone] Natriuretic peptide B (Bld) [Mass/Vol] 953.6 pg/mL 0-100 [facility] Work Phone: [phone] Urea nitrogen/Creatinine [Mass ratio] 22.0 mg/mg 10-20 [facility] Work Phone: [phone] Laboratory - Hematology and Cell countson 01-27-2022 Erythrocyte distribution width (RBC) [Entitic vol] 44.0 fL 35.1-43.9 [facility] Work Phone: [phone] Erythrocyte distribution width (RBC) [Ratio] 13.4 % 11.6-14.6 [facility] Work Phone: [phone] Immature granulocytes/100 WBC (Bld) 0.300 % 0.0-0.9 [facility] Work Phone: [phone] Comment on above: IG% - Immature Granu locytes (promyelocytes, myelocytes and metamyelocytes) > 1% indicates that a LEFT SHIFT is Present. MCH (RBC) [Entitic mass] 30.3 pg 27.0-32.0 [facility] Work Phone: [phone] Nucleated RBC/100 WBC (Bld) [Ratio] 0 % 0-5 [facility] Work Phone: [phone] MCHC Auto (RBC) [Mass/Vol]on 01-27-2022 MCHC (RBC) [Mass/Vol] 33.8 g/dL 32-36 [facility] Work Phone: [phone] No Panel Informationon 01-27 Estimated Creatinine Clearance Calc 42.71 ml/min [facility] Work Phone: [phone] Estimated GFR (MDRD) Amer 76 mL/min >60 [facility] Work Phone: [phone] Comment on above: GFR Calc Estimated GFR (MDRD) Non-Af Amer 63 mL/min >60 [facility] Work Phone: Comment on above: Non- GFR Calc Troponin I High Sensitivity 21 pg/mL 3.0-78.0 [facility] Work Phone: Comment on above: Please Note: New Pat t Units and Gender Specific Reference Ranges. For more information see Policy Stat Procedure [place] High Sensitivity Troponin (TNIH) and attachments. Platelets bldon 01-27-2022 Platelets (Bld) [#/Vol] 165 10*3/uL 150-450 [facility] Work Phone: Serum or plasma albumin kelli urement (mass/volume)on 01-27-2022 Albumin [Mass/Vol] 3.5 g/dL 3.2-5.0 [facility] Work Phone: [phone] Serum or plasma albumin/glob ulin mass ratioon 01-27-2022 Albumin/Globulin [Mass ratio] 0.9 {ratio} 0.9-2.4 [facility] Work Phone: Serum or plasma calcium kelli urement (mass/volume)on 01-27-2022 Calcium [Mass/Vol] 8.9 mg/dL 8.5-10.1 [facility] Work Phone: Serum or plasma creatinine m easurement (mass/volume)on 01-27-2022 Creatinine [Mass/Vol] 1.18 mg/dL 0.70-1.30 [facility] Work Phone: Comment on above: The validity of the calculated GFR & GFRAA in patients over 70 years has not been determined. Clinical correlation is essential. Serum or plasma urea nitroge n measurement (mass/volume)on 01-27-2022 Urea nitrogen [Mass/Vol] 26 mg/dL 7-18 [facility] Work Phone: [phone] Thin prep Papanicolaou smear with manual screeningon 01-27-2022 Thin prep Papanicolaou smear with manual screening 17 U/L 15-37 [facility] Work Phone: Thin prep Papanicolaou smear with manual screening 6 5-15 [facility] Work Phone: PSA, TOTALon 09-17-2020 PSA, TOTAL [...] By: #### 5 [id number] #### [facility] [address] [place] [address] Child Care: Catrachito Huerta MD ESRon 09-16-2020 ESR (Bld) [Velocity] 20 mm/h Normal 0-20 [facility] [facility] Comment on above: Performed By: #### E SR #### [place] [address] FOREST WORKER REPORTon 03-06-20 FOREST WORKER REPORT [facility] CONSULTATION REPORT NAME ACCOUNT SEX AGE ADMIT DISCHARGE PT MED. NUMBER DATE DATE TYPE RECORD# TIAN [id number] 02/25/19 1 FLORIN Courtney [address] ROOM: [facility] DATE OF : 1940 DICTATING PHYSICIAN: Marielle [...] he [facility] in conjunction with aortic valve replacement transarterial. MEDICATIONS: The patient is currently on aspirin 81 mg daily, clopidogrel 75 mg daily, furosemide 40 mg daily, metoprolol 25 mg daily. ALLERGIES: He has no known drug allergies. FAMILY HISTORY: Positive for atherosclerotic vascular disease. SOCIAL HISTORY: The patient is retired. 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 He worked in [employer] places, and now he is part-time working [...] Marielle Pardo MD 02/25/19 15:07 JOB #: [id number] Transcribed By: am 02/25/19 15:30 Electronically signed by: E-Sign: MARIELLE PARDO MD 03/06/19 09:05 Page 2 of 2 FLORIN VARGAS Consultation Normal [facility] with eGFRon 02-26-2019 Age - Reported 79 years Normal [facility] Comment on above: Performed By: #### 2 22376 #### [facility],[address] [place] [address] 89260 Anion gap [Moles/Vol] 10 mmol/L Normal 10 - 20 [facility] Comment on above: Performed By: #### 2 16493 #### [facility],[address] [place] [address] 42311 Calcium [Mass/Vol] 8.4 mg/dL Low 8.6 - 10.2 [facility] Comment on above: Performed By: #### 2 90153 #### [facility],[address] [place] [address] 38820 Chloride [Moles/Vol] 102 mmol/L Normal 98 - 107 [facility] Comment on above: Performed By: #### 2 01055 #### [facility],[address] [place] [address] 50517 CO2 [Moles/Vol] 27.5 mmol/L Normal 21.0 - 31.0 [facility] Comment on above: Performed By: #### 2 80926 #### [facility],[address] [place] [address] 70212 Creatinine [Mass/Vol] 1.2 mg/dL Normal 0.7 - 1.3 [facility] Comment on above: Performed By: #### 2 32710 #### [facility],[address] [place] [address] 12829 GFR/1.73 sq M predicted among non-blacks MDRD (S/P/Bld) [Vol rate/Area] Normal [facility] Comment on above: Result Comment: BASI C METABOLIC PANEL Performed By: #### 2 26118 #### [facility],[address] [place] [address] 46393 GFR/1.73 sq M predicted among non-blacks MDRD (S/P/Bld) [Vol rate/Area] 58 ML/MINUTE Low 60 - 999 [facility] Comment on above: Performed By: #### 2 75018 #### [address] [address] GFR/1.73 sq M predicted among non-blacks MDRD (S/P/Bld) [Vol rate/Area] mL/min/{1.73_m2} Normal 60 - 999 [facility] Comment on above: Result Comment: ACCO RDING TO THE NATIONAL KIDNEY DISEASE EDUCATION PROGRAM(NKDE), A NORMAL eGFR IS A VALUE GREATER THAN OR EQUAL TO 60 ML/MIN/1.73 SQ METERS. CHRONIC KIDNEY DISEASE: <60mL/MIN/1.73 SQ METERS KIDNEY FAILURE: <15mL/MIN/1.73 SQ METERS THIS TEST SHOULD ONLY BE USED FOR PATIENTS 18 YEARS OF AGE AND OLDER. Performed By: #### 2 50196 #### [address] [address] Glucose [Mass/Vol] 127 mg/dL High 74 - 106 [facility] Comment on above: Performed By: #### 2 37061 #### [address] [address] Potassium [Moles/Vol] 4.2 mmol/L Normal 3.5 - 5.1 [facility] Comment on above: Performed By: #### 2 44189 #### [address] [address] Sodium [Moles/Vol] 135 mmol/L Low 136 - 145 [facility] Comment on above: Performed By: #### 2 12243 #### [address] [address] Urea nitrogen [Mass/Vol] 28 mg/dL High 6 - 20 [facility] Comment on above: Performed By: #### 2 55836 #### [address] [address] CBC + DIFFon 02-26-2019 Basophils (Bld) [#/Vol] 0.00 x10EE3/UL Normal 0.00 - 0.10 [facility] Comment on above: Performed By: #### 2 67186 #### [facility],[address] [place] [address] 67636 Basophils/100 WBC (Bld) 0.2 % Normal 0.0 - 2.0 [facility] Comment on above: Performed By: #### 2 92287 #### [facility],[address] [place] [address] 77178 CBC + DIFF Normal [facility] Comment on above: Result Comment: CBC- COMPLETE BLOOD COUNT Performed By: #### 2 84174 #### [facility],[address] [place] [address] 31977 Eosinophils (Bld) [#/Vol] 0.00 x10EE3/UL Normal 0.00 - 0.50 [facility] Comment on above: Performed By: #### 2 89170 #### [facility],[address] [place] [address] 36989 Eosinophils/100 WBC (Bld) 0.1 % Normal 0.0 - 7.0 [facility] Comment on above: Performed By: #### 2 85010 #### [facility],[address] [place] [address] 13963 Erythrocyte distribution width (RBC) [Ratio] 13.8 % Normal 12.0 - 15.6 [facility] Comment on above: Performed By: #### 2 34963 #### [facility],[address] [place] [address] 76295 Hematocrit (Bld) [Volume fraction] 32.9 % Low 40.0 - 52.0 [facility] Comment on above: Performed By: #### 2 58694 #### [facility],[address] [place] [address] 21953 Hemoglobin (Bld) [Mass/Vol] 11.6 g/dL Low 13.0 - 17.5 [facility] Comment on above: Performed By: #### 2 38652 #### [facility],[address] [place] [address] 44520 Lymphocytes (Bld) [#/Vol] 1.40 x10EE3/UL Normal 0.80 - 2.80 [facility] Comment on above: Performed By: #### 2 43331 #### [facility],[address] [place] [address] 02499 Lymphocytes/100 WBC (Bld) 13.4 % Low 20.0 - 45.0 [facility] Comment on above: Performed By: #### 2 07929 #### [facility],[address] [place] [address] 07112 MANUAL DIFF N/A Normal [facility] Comment on above: Performed By: #### 2 19117 #### [facility],[address] [place] [address] 93670 MCH (RBC) [Entitic mass] 32 pg Normal 27 - 33 [facility] Comment on above: Performed By: #### 2 75672 #### [facility],[address] [place] [address] 28082 MCHC (RBC) [Mass/Vol] 35 X10 3 Normal 32 - 36 [facility] Comment on above: Performed By: #### 2 88220 #### [facility],[address] [place] [address] 77051 MCV (RBC) [Entitic vol] 90 fL Normal 81 - 98 [facility] Comment on above: Performed By: #### 2 38760 #### [facility],[address] [place] [address] 06799 Monocytes (Bld) [#/Vol] 0.80 x10EE3/UL Normal 0.20 - 1.00 [facility] Comment on above: Performed By: #### 2 60451 #### [facility],[address] [place] [address] 32850 MONOS % 7.7 % Normal 0.0 - 10.0 [facility] Comment on above: Performed By: #### 2 42132 #### [facility],[address] [place] [address] 96136 Morphology Tyrese (Bld) [Interp] N/A Normal [facility] Comment on above: Performed By: #### 2 56250 #### [facility],[address] [place] [address] 81028 Neutrophils (Bld) [#/Vol] 8.30 x10EE3/UL High 1.50 - 7.10 [facility] Comment on above: Performed By: #### 2 41875 #### [facility],[address] [place] [address] 27087 Neutrophils/100 WBC (Bld) 78.6 % High 46.0 - 76.0 [facility] Comment on above: Performed By: #### 2 29704 #### [facility],[address] [place] [address] 98712 Platelet mean volume (Bld) [Entitic vol] 8.2 fL Normal 6.4 - 10.5 [facility] Comment on above: Result Comment: AUTO MATED DIFFERENTIAL Performed By: #### 2 82037 #### [facility],[address] [place] [address] 23575 Platelets (Bld) [#/Vol] 123 x10EE3/UL Low 150 - 450 [facility] Comment on above: Performed By: #### 2 91815 #### [address] [address] RBC (Bld) [#/Vol] 3.67 x 10EE6/UL Low 4.50 - 6.00 [facility] Comment on above: Performed By: #### 2 58289 #### [facility],[address] [place] [address] 31066 WBC (Bld) [#/Vol] 10.6 x 10EE3/UL Normal 4.5 - 10.8 [facility] Comment on above: Performed By: #### 2 76590 #### [facility],[address] [place] [address] 87781 OPERATIVE PROCEDURESon 02-26 OPERATIVE PROCEDURES [facility] OPERATIVE REPORT NAME ACCOUNT SEX AGE ADMIT DISCHARGE PT MED. RECORD# NUMBER DATE DATE TYPE TIAN [id number] Jackie 79 02/25/19 1 FLORIN Courtney [address] ROOM: [facility] DATE OF : 1940 DICTATING PHYSICIAN: Saji Pena DATE OF SURGERY: February 25, 2019 SURGEON: Saji Pena MD MANAGER RADIO: Sil Wesley PA-C./JAIME Callahan student. ANESTHESIOLOGIST: Rossana [...] 1 of 3 FLORIN VARGAS Operative Report assistant boiler operator, physician licensed nursing assistant, was utilized throughout the entire procedure. She helped with patient positioning, holding of limb, holding of retractors. She helped with exposure throughout. She helped with wound closure, bandage application, and patient transfer. She was also vital in instructing the SURGICAL SCRUB TECH student on assisting techniques, as well as suturing techniques. Without assistant foreman, surgical time would have been increased. Surgical [...] clamp was held by the surgeon, and licensed nursing assistant drilled through that with 3 drill [...] was holding the leg in extension, the licensed nursing assistant injected the pain relieving solution carefully [...] Saji Pena MD 02/25/19 11:06 JOB #: [id number] Transcribed By: chanelle 02/25/19 17:38 Electronically signed by: E-SIGN DR. SAJI PENA M.D. 02/26/19 13:00 Page 3 of 3 FLORIN VARGAS Operative Report Normal [facility] URINALYSISon 02-26-2019 Bilirubin [Mass/Vol] Negative Normal NORMAL: NEGATIVE [facility] Comment on above: Performed By: #### 2 23439 #### [facility],[address] [place] [address] 58986 Blood Negative Normal NORMAL: NEGATIVE [facility] Comment on above: Performed By: #### 2 13143 #### [facility],[address] [place] [address] 51002 Clarity (U) clear Normal NORMAL: CLEAR [facility] Comment on above: Performed By: #### 2 63279 #### [facility],[address] [place] [address] 14239 Color (U) jigar Normal NORMAL: YELLOW [facility] Comment on above: Performed By: #### 2 27972 #### [facility],[address] [place] [address] 68794 Glucose [Mass/Vol] NORM Normal NORMAL: NORMAL [facility] Comment on above: Performed By: #### 2 81632 #### [facility],[address] [place] [address] 21123 Ketone 15 Abnormal NORMAL: NEGATIVE [facility] Comment on above: Performed By: #### 2 15470 #### [facility],[address] [place] [address] 22933 Microscopic NOT Normal [facility] Comment on above: Performed By: #### 2 14240 #### [facility],[address] [place] [address] 09893 Nitrite Ql (U) Negative Normal NORMAL: NEGATIVE [facility] Comment on above: Performed By: #### 2 69572 #### [facility],[address] [place] [address] 57137 pH (Bld) 6 Normal NORMAL: 5.0-8.0 [facility] Comment on above: Performed By: #### 2 57864 #### [facility],[address] [place] [address] 47365 Protein (U) [Mass/Vol] 30 mg/dL Abnormal NORMAL: NEGATIVE [facility] Comment on above: Performed By: #### 2 51518 #### [facility],[address] [place] [address] Sp Bricelyn 1.020 Normal NORMAL: 1.010-1.03 0 [facility] Comment on above: Performed By: #### 2 96135 #### [facility],[address] [place] [address] Specimen type Nom (Spec) Catheter Normal [facility] Comment on above: Performed By: #### 2 66151 #### [facility],[address] [place], [place] [address] Urobilinog NORM Normal NORMAL: NORMAL [facility] Comment on above: Performed By: #### 2 32972 #### [facility],[address] [place] [address] WBC (Bld) [#/Vol] Negative Normal NORMAL: NEGATIVE [facility] Comment on above: Performed By: #### 2 98669 #### [facility],[address] [place] [address] KNEE 2 VIEWS LTon 02-25-2019 KNEE 2 VIEWS LT [place] [address] Patient: FLORIN VARGAS Phone#: : 1940 Age: 79 Gender: M Pt. Type: In Account: [id number] Location: 062 Ordering: SAJI PENA Exam Date: 02/25/2019/11:50 Family Phys: PEDRO AJac GONZALEZ Charge Code: [id number] Physician: [place] Order #: [id number] DLP Dose#: PROCEDURE: X-RAY KNEE LT 2 [...] Burgess MD on 02/25/2019 at 12:35 Normal [facility] BMP with eGFRon 02-07-2019 Age - Reported 79 years Normal [facility] Comment on above: Performed By: #### 2 59022 #### [facility],[address] [place] [address] 73361 Anion gap [Moles/Vol] 13 mmol/L Normal 10 - 20 [facility] Comment on above: Performed By: #### 2 60905 #### [facility],[address] [place] [address] 84722 Calcium [Mass/Vol] 10.0 mg/dL Normal 8.6 - 10.2 [facility] Comment on above: Performed By: #### 2 99163 #### [facility],[address] [place] [address] 59784 Chloride [Moles/Vol] 102 mmol/L Normal 98 - 107 [facility] Comment on above: Performed By: #### 2 37247 #### [facility],[address] [place] [address] 74533 CO2 [Moles/Vol] 25.7 mmol/L Normal 21.0 - 31.0 [facility] Comment on above: Performed By: #### 2 00312 #### [facility],[address] [place] [address] 04623 Creatinine [Mass/Vol] 1.2 mg/dL Normal 0.7 - 1.3 [facility] Comment on above: Performed By: #### 2 28260 #### [address] [address] GFR/1.73 sq M predicted among non-blacks MDRD (S/P/Bld) [Vol rate/Area] 58 ML/MINUTE Low 60 - 999 [facility] Comment on above: Performed By: #### 2 36203 #### [facility],[address] [place] [address] 02172 GFR/1.73 sq M predicted among non-blacks MDRD (S/P/Bld) [Vol rate/Area] Normal [facility] Comment on above: Result Comment: BASI C METABOLIC PANEL Performed By: #### 2 57615 #### [facility],[address] [place] [address] 72214 GFR/1.73 sq M predicted among non-blacks MDRD (S/P/Bld) [Vol rate/Area] mL/min/{1.73_m2} Normal 60 - 999 [facility] Comment on above: Result Comment: ACCO RDING TO THE NATIONAL KIDNEY DISEASE EDUCATION PROGRAM(NKDE), A NORMAL eGFR IS A VALUE GREATER THAN OR EQUAL TO 60 ML/MIN/1.73 SQ METERS. CHRONIC KIDNEY DISEASE: <60mL/MIN/1.73 SQ METERS KIDNEY FAILURE: <15mL/MIN/1.73 SQ METERS THIS TEST SHOULD ONLY BE USED FOR PATIENTS 18 YEARS OF AGE AND OLDER. Performed By: #### 2 60166 #### [facility],[address] [place] [address] 36747 Glucose [Mass/Vol] 93 mg/dL Normal 74 - 106 [facility] Comment on above: Performed By: #### 2 02651 #### [facility],[address] [place] [address] 42170 Potassium [Moles/Vol] 4.5 mmol/L Normal 3.5 - 5.1 [facility] Comment on above: Performed By: #### 2 47171 #### [facility],[address] [place] [address] 96168 Sodium [Moles/Vol] 136 mmol/L Normal 136 - 145 [facility] Comment on above: Performed By: #### 2 13868 #### [facility],[address] [place] [address] 16500 Urea nitrogen [Mass/Vol] 35 mg/dL High 6 - 20 [facility] Comment on above: Performed By: #### 2 19377 #### [facility],[address] [place] [address] CBC (NO DIFF)on 02-07-2019 CBC (NO DIFF) Normal [facility] Comment on above: Result Comment: CBC( WITHOUT DIFFERENTIAL) Performed By: #### 2 83742 #### [facility],[address] [place] [address] Erythrocyte distribution width (RBC) [Ratio] 14.0 % Normal 12.0 - 15.6 [facility] Comment on above: Performed By: #### 2 24879 #### [facility],[address] [place] [address] Hematocrit (Bld) [Volume fraction] 40.3 % Normal 40.0 - 52.0 [facility] Comment on above: Performed By: #### 2 20214 #### [place] [address] Hemoglobin (Bld) [Mass/Vol] 13.8 g/dL Normal 13.0 - 17.5 [facility] Comment on above: Performed By: #### 2 97529 #### [facility],[address] [place], [place] [address] MCH (RBC) [Entitic mass] 31 pg Normal 27 - 33 [facility] Comment on above: Performed By: #### 2 02584 #### [facility],[address] [place], [place] [address] MCHC (RBC) [Mass/Vol] 34 X10 3 Normal 32 - 36 [facility] Comment on above: Performed By: #### 2 00253 #### [place] [id number] MCV (RBC) [Entitic vol] 90 fL Normal 81 - 98 [facility] Comment on above: Performed By: #### 2 73459 #### [facility],[address],[place] [address] Platelet mean volume (Bld) [Entitic vol] 8.7 fL Normal 6.4 - 10.5 [facility] Comment on above: Performed By: #### 2 06852 #### [facility],[address] [place] [address] 15954 Platelets (Bld) [#/Vol] 155 x10EE3/UL Normal 150 - 450 [facility] Comment on above: Performed By: #### 2 14361 #### [facility],[address] [place] [address] 35173 RBC (Bld) [#/Vol] 4.46 x 10EE6/UL Low 4.50 - 6.00 [facility] Comment on above: Performed By: #### 2 55076 #### [facility],[address] [place] [address] 84760 WBC (Bld) [#/Vol] 6.7 x 10EE3/UL Normal 4.5 - 10.8 [facility] Comment on above: Performed By: #### 2 62829 #### [facility],[address] [place] [address] 24764 CHEST 2 VIEWSon 02-07-2019 CHEST [address] [address] Patient: FLORIN VARGAS Phone#: : 1940 Age: 79 Gender: M Pt. Type: Out Account: [id number] Location: Ordering: SAJI PENA Exam Date: 02/07/2019/10:51 Family Phys: PEDRO GONZALEZ Charge Code: [id number] Physician: [place] Order #: [id number] DLP Dose#: PROCEDURE: X-RAY CHEST 2 VIEWS [...] MARIE MARINO on 02/07/2019 at 11:05 Normal [facility] CT LOWER EXTREMITY LT WOon 0 01-11-2019 CT LOWER EXTREMITY LT WO [place] [address] Patient: FLORIN VARGAS Phone#: : 1940 Age: 78 Gender: M Pt. Type: Out Account: [id number] Location: Ordering: SAJI PENA Exam Date: 01/11/2019/8:24 Family Phys: PEDRO GONZALEZ Charge Code: [id number] Physician: [place] Order #: [id number] DLP Dose#: PROCEDURE: CT LOWER EXTREMITY LT [...] 78 Gender: M Pt. Type: Out Account: [id number] Location: Ordering: SAJI PENA Exam Date: 01/11/2019/8:24 Family Phys: PEDRO GONZALEZ Charge Code: [id number] Physician: [place] Order #: [id number] DLP Dose#: 3. An 11 mm loose body is present superior to the patella. Several small bony fragments are noted adjacent to the patella and may be the result of remote avulsions versus additional loose bodies. Dictated by: Anna Marie uBrgess MD on 01/11/2019 at 9:42 Approved by: Anna Marie Burgess MD on 01/11/2019 at 9:42 [facility] 03-15-2018 [facility] Telephone (HVICTR) -------FLORIN VARGAS ([id number]) 1940 MDate Time Provider Department03/15/18 [place] [place] HVICT[facility] During your visit today, we recorded the following information about you:Sofia Nieto, RN, RN 03/15/2018 10:36 AM Signed [facility] Center Inbound Phone EncounterDATE of SERVICE: 03/15/2018TIME of SERVICE: 10:34 AMStatus: Non-urgent, needs attentionService/Provider: Farooq Ray MDReason for call: Follow-up AppointmentContact information: [phone]: [facility]: Spouse calling post discharge line. States [facility] States pt is doing really well. 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.JIMENA 03/15/2018 3:30 PM AddendumPT states that his breathing is a lot betterHe has some mild dizziness after taking the diureticHe remains stableHe will follow up locally on 03/21/2018Allergies As of Date: 03/15/2018 Noted Allergy DjanzuniAFEQBUW-ZBP-QYN REDUCTASE INHIBIT*12/29/2017 5 - Intolerance Comments: Statins caused myalgias, couldn't talk, affected my kidneysDate Reviewed: 03/08/2018Reviewed by: Quynh CareyRn) SEBASTIAN Tong - Fully AssessedReason for Visit: Post Dc Program Call - Needs Attn [[id number]]Prescriptions as of 03/15/2018 Sig: LISINOPRIL 2.5 MG [...] Status:Closed by SOFIA NIETO on 03/15/18 Normal [facility] APTTon 03-08-2018 aPTT Coag time (Bld) 26.2 s Normal 23.0-32.4 [facility] Comment on above: Result Comment: Unfr [...] laboratory APTT reagent in use throughout the [facility]. Performed By: #### P T, PTT, CBC, BMP, MG1, TSH, HBA1C ####[address] [phone] Basic Metabolic Panlon 03-08 Anion gap 3 molar conc 16 mmol/L Normal 9-18 [facility] Comment on above: Performed By: #### P T, PTT, CBC, BMP, MG1, TSH, HBA1C ####[address] [phone] Calcium mass conc 9.1 mg/dL Normal 8.5-10.2 [facility] Comment on above: Performed By: #### P T, PTT, CBC, BMP, MG1, TSH, HBA1C ####[address] [phone] Chloride molar conc 99 mmol/L Normal 97-105 [facility] Comment on above: Performed By: #### P T, PTT, CBC, BMP, MG1, TSH, HBA1C ####[address] [phone] CO2 molar conc 20 mmol/L Low 22-30 [facility] Comment on above: Performed By: #### P T, PTT, CBC, BMP, MG1, TSH, HBA1C ####[address] [phone] Creatinine mass conc 1.23 mg/dL High 0.73-1.22 [facility] Comment on above: Performed By: #### P T, PTT, CBC, BMP, MG1, TSH, HBA1C ####[facility] [place], [place] [phone] eGFR- Amer. >60 Normal [facility] Comment on above: Performed By: #### P T, PTT, CBC, BMP, MG1, TSH, HBA1C ####[facility] [place] [address] [phone] GFR/1.73 sq M predicted among non-blacks MDRD vol rate/area (S/P/Bld) 57 . Normal [facility] Comment on above: Result Comment: eGFR [...] T, PTT, CBC, BMP, MG1, TSH, HBA1C ####[address] [phone] Glucose mass conc 92 mg/dL Normal 74-99 [facility] Comment on above: Result Comment: The [place] Diabetes Association (ADA) provides guidance for cutoff [...] Standards of Medical Care in Diabetes 2016, [place] [employer] Association. Diabetes Care. 2016.39(Suppl 1). Performed By: #### P T, PTT, CBC, BMP, MG1, TSH, HBA1C ####[facility] [place], [place] [phone] Potassium molar conc 3.9 mmol/L Normal 3.7-5.1 [facility] Comment on above: Performed By: #### P T, PTT, CBC, BMP, MG1, TSH, HBA1C ####[facility] [place], [place] [phone] Sodium molar conc 135 mmol/L Low 136-144 [facility] Comment on above: Performed By: #### P T, PTT, CBC, BMP, MG1, TSH, HBA1C ####[place] [address] [place], [place] [phone] Urea nitrogen mass conc 22 mg/dL Normal 9-24 [facility] Comment on above: Performed By: #### P T, PTT, CBC, BMP, MG1, TSH, HBA1C ####[facility] [place], [place] [phone] CASE MANAGEMon 03-08-2018 CASE MANAGEM HNO ID: [id number] thor: SHARON Mora Rnervice: Care ManagementAuthor Type: Registered NurseType: Porfirio Mgt Progress NoteFiled: 03/08/2018 1:57 PMNote Text:CARE MANAGEMENT PROGRESS NOTESERVICE DATE: 03/08/2018SERVICE TIME: 1:56 PM LOS: 1 dayPatient listed as self pay. Message left for [facility] rep, Manju Martinez [phone] to screen patient.SIGNATURE: Kiara Skinner RN PATIENT NAME: Florin VargasDATE: March 08, 2018 : 1:56 PM PAGER/CONTACT #: [phone] Normal [facility] CASE MGT INIT ASSESon 2017 CASE MGT INIT ASSES HNO ID: [id number] thor: SHARON Mora Rnervice: Care ManagementAuthor Type: Registered NurseType: Care Mgt Initial AssessmentFiled: 03/08/2018 9:47 AMNote Text:CARE MANAGEMENT: ASSESSMENT AND DISCHARGE PLANSERVICE DATE: 03/08/2018SERVICE TIME: 9:39 AMPRIUAB MEDICAL WEST CARE PHYSICIAN:Pedro Gonzalez [facility]: [phone] STATUS: InpatientMEDICAL:Patient/Re presentative Stated Goals:To return home [...] Admission: NoneHas the Patient Been in a Fdc Facility in the Past 30 days? NoSOCIAL:Living Arrangement: HomeLives With: SpouseFinancial Resources: Retired and AmishPrimary Contact: Extended Emergency Contact InformationPrimary Emergency Contact: Rachel Vargas Uuobjrmo: SonSupportive: YesOther Important Patient Contacts: NoneCaregiver Assessment:Caregiver [...] - 0I feel financially burdened by my sim-kx-zzxyen expenses for myprescription medication: Disagree completely - [...] NoneFREEDOM OF CHOICE EXPLAINED:N/APOTENTIAL TRANSITION PLANSTo Be Prqxiaakoi69 year old male from [place], [place] admitted with CHF exacerbation.Lives with family, independent with ADL/IADL care prior to admission. [facility] used. CM role explained. Has friend that will transport him home.Basic discharge needs at this time. Will continue to assess for anyevolving needs and plan accordingly.SIGNATURE: Kiara Skinner RN PATIENT NAME: Florin VargasDATE: March 08, 2018 : 9:39 AM PAGER/CONTACT #: [phone] Normal [facility] CBCon 03-08-2018 Absolute nRBC <0.01 Normal <0.01 [facility] Comment on above: Performed By: #### P T, PTT, CBC, BMP, MG1, TSH, HBA1C ####[place] [phone] Erythrocyte distribution width Auto Ratio (RBC) 14.1 % Normal 11.5-15.0 [facility] Comment on above: Performed By: #### P T, PTT, CBC, BMP, MG1, TSH, HBA1C ####[address] [phone] Hematocrit Auto Volume Fraction (Bld) 40.2 % Normal 39.0-51.0 [facility] Comment on above: Performed By: #### P T, PTT, CBC, BMP, MG1, TSH, HBA1C ####[address] [phone] Hemoglobin mass conc (Bld) 13.5 g/dL Normal 13.0-17.0 [facility] Comment on above: Performed By: #### P T, PTT, CBC, BMP, MG1, TSH, HBA1C ####[place] [address] [address], [place] [phone] MCH Auto Entitic mass (RBC) 29.5 pG Normal 26.0-34.0 [facility] Comment on above: Performed By: #### P T, PTT, CBC, BMP, MG1, TSH, HBA1C ####[place] [address] [address], [place] [phone] MCHC Auto mass conc (RBC) 33.6 g/dL Normal 30.5-36.0 [facility] Comment on above: Performed By: #### P T, PTT, CBC, BMP, MG1, TSH, HBA1C ####[address] [place], [place] [phone] MCV Auto Entitic volume (RBC) 88.0 fL Normal 80.0-100.0 [facility] Comment on above: Performed By: #### P T, PTT, CBC, BMP, MG1, TSH, HBA1C ####[place] [address] [address] [place], [place] [phone] Platelet mean volume Auto Entitic volume (Bld) 10.4 fL Normal 9.0-12.7 [facility] Comment on above: Performed By: #### P T, PTT, CBC, BMP, MG1, TSH, HBA1C ####[address] [phone] Platelets Auto #/vol (Bld) 162 10*3/uL Normal 150-400 [facility] Comment on above: Performed By: #### P T, PTT, CBC, BMP, MG1, TSH, HBA1C ####[place] [address] [address], [place] [phone] RBC Auto #/vol (Bld) 4.57 10*6/uL Normal 4.20-6.00 [facility] Comment on above: Performed By: #### P T, PTT, CBC, BMP, MG1, TSH, HBA1C ####[address] [facility], [place] [phone] WBC Auto #/vol (Bld) 6.25 10*3/uL Normal 3.70-11.00 [facility] [place] Comment on above: Performed By: #### P T, PTT, CBC, BMP, MG1, TSH, HBA1C ####[facility] [place], [place] [phone] ECG COMPLETE W INTERPRETATIO Non 03-08-2018 Protein mass conc NAME : Eliseo VARGAS ONASPID : [id number] : 1940 Gender : MaleRace : CaucasianORD : [id number] Procedure Date : Mar 07 2018 22:18:11Edit [...] : 420 msQTC Calculation(Bezet) : 450 msP [place] : -24 degreesR [place] : 0 degreesT [place] : 146 degrees Test Reason : Location : 353 : J53 02 Overread By : ANDRZEJ HAMMOND M.D.Edited By : ANDRZEJ HAMMOND M.D.Referred By : ,Acquired by : KIDNEY,HUMAIRA Normal [facility] Hemoglobin A1con 03-08-2018 Glucose mass conc 111 mg/dL Normal [facility] Comment on above: Result Comment: eAG: (Estimated average glucose) is a calculated value from HgbA1c and is client relations representative of the average blood glucose level in the last 2-3 month period. Performed By: #### P T, PTT, CBC, BMP, MG1, TSH, HBA1C ####[place] [id number] [place], [place] [phone] Hemoglobin A1c/Hemoglobin.total mass fraction (Bld) 5.5 % Normal 4.3-5.6 [facility] Comment on above: Performed By: #### P T, PTT, CBC, BMP, MG1, TSH, HBA1C ####[place] [id number] [place], [place] [phone] Lipid Panel, Basicon 03-08- 018 Cholesterol in HDL mass conc 62 mg/dL Normal >39 [facility] Comment on above: Result Comment: 40-5 9 mg/dL, Acceptable>59 mg/dL, High: Negative risk factor for coronary heart disease<40 mg/dL, Low: Positive risk factor for coronary heart disease Performed By: #### L IPB, JR ####[address] [phone] Cholesterol in LDL mass conc 166 mg/dL High <100 [facility] Comment on above: Result Comment: <100 mg/dL, Optimal 100-129 mg/dL, Near optimal/above optimal 130-159 mg/dL, Borderline high 160-189 mg/dL, High>189 mg/dL, Very highSecondary prevention optimal LDL Cholesterol levels are recommended to be < 70 mg/dL Performed By: #### L IPB, JR ####[address] [phone] Cholesterol mass conc 242 mg/dL High <200 [facility] Comment on above: Result Comment: <200 mg/dL, Desirable 200-239 mg/dL, Borderline high>239 mg/dL, High Performed By: #### L IPB, JR ####[address] [phone] Fasting Time Unknown Normal [facility] Comment on above: Performed By: #### L IPB, JR ####[address] [phone] LDL:HDL Ratio 2.68 High <2.54 [facility] Comment on above: Result Comment: Refe rence:1. National Cholesterol Education Program ATP III Guideline At-A-Glance Quick Desk Reference: National Heart, Lung, and Blood Grant. National Institutes of Health. 2001: NIH Publication No. 01-3305.2. An International Atherosclerosis Society position paper: global recommendations for the management of dyslipidemia: executive summary, Atherosclerosis. 2014: 232(2):410-413. Performed By: #### L IPB, JR ####[address] [phone] Non HDL Cholesterol 180 mg/dL High <130 [facility] Comment on above: Result Comment: <130 mg/dL, Optimal 130-159 mg/dL, Near optimal/above optimal 160-189 mg/dL, Borderline high 190-219 mg/dL, High>219 mg/dL, Very highSecondary prevention optimal non HDL Cholesterol levels are recommended to be < 100 mg/dL Performed By: #### L IPB, JR ####[address] [phone] TC:HDL Ratio 3.90 Normal <5.10 [facility] Comment on above: Performed By: #### L IPB, JR ####[address] [phone] Triglyceride mass conc 70 mg/dL Normal <150 [facility] Comment on above: Result Comment: <150 mg/dL, Normal 150-199 mg/dL, Borderline high 200-499 mg/dL, High>499 mg/dL, Very high Performed By: #### L IPB, JR ####[address] [phone] VLDL Cholesterol 14 mg/dL Normal <30 [facility] Comment on above: Performed By: #### L IPB, JR ####[address] [phone] Magnesiumon 03-08-2018 Magnesium mass conc 2.2 mg/dL Normal 1.7-2.3 [facility] Comment on above: Performed By: #### P T, PTT, CBC, BMP, MG1, TSH, HBA1C ####[address] [phone] NURSING PROGon 03-08-2018 Protein mass conc HNO ID: [id number] thor: Max (Rn) SHARON Eganervice: Cardiovascular MedicineAuthor Type: Registered NurseType: Nursing Progress NoteFiled: 03/08/2018 3:34 PMNote Text:Bedside echo with definity03/08/2018 3:34 PMOrder reviewed by nurse:yesMedications: Definity - dosage 2 ml given slow IVReaction: No Normal [facility] PT EDon 03-08-2018 PT ED HNO ID: [id number] thor: Elaina (Tech) StevieumboService: Nutrition TherapyAuthor Type: Dietetic TechnicianType: Patient EducationFiled: 03/08/2018 9:32 AMNote Text:[facility] PATIENT EDUCATIONTOPIC: Survival Skills: DietPATIENT NAME: Florin VargasMRN: [id number] DATE: March 08, 2018Diagnosis: ADULT: Heart FailureREADINESS [...] Type: Routine Care/15 min 2 unitsALONZO Sanfordager: [id number] 20179:32 AM Normal [facility] Protimeon 03-08-2018 INR Coag RelTime (Bld) 1.1 {INR} Normal 0.9-1.3 [facility] Comment on above: Result Comment: Татьяна min K Antagonist (VKA) Therapeutic Range: INR 2 to 3 (Target INR of 2.5)Note: For patients treated with VKA drugs, such as warfarin, the [place] College [employer] Chest Physicians 2012 Guideline recommends [...] al. Chest 2012, 141:7S-47SNishruel RA, et al. [facility] 2017, 70: 252-289 Performed By: #### P T, PTT, CBC, BMP, MG1, TSH, HBA1C ####[place] [address] [place], [place] [phone] PT Sec 11.3 sec Normal 9.7-13.0 [facility] Comment on above: Performed By: #### P T, PTT, CBC, BMP, MG1, TSH, HBA1C ####[place] [address] [place], [place] [phone] TSHon 03-08-2018 Thyrotropin Qn 4.700 uU/mL Normal 0.400-5.50 0 [facility] Comment on above: Performed By: #### P T, PTT, CBC, BMP, MG1, TSH, HBA1C ####[place] [address] [place], [place] [phone] Troponin Ton 03-08-2018 Troponin T.cardiac mass conc ug/L Normal 0.000-0.02 9 [facility] Comment on above: Performed By: #### L IPB, JR ####[place] [address] [address] [place] [phone] Troponin T.cardiac mass conc ug/L Normal 0.000-0.02 9 [facility] Comment on above: Performed By: #### T NT ####[place] [phone] Basic Metabolic Panlon 03-07 Anion gap 3 molar conc 13 mmol/L Normal 9-18 [facility] Comment on above: Performed By: #### C BCDIF, BMP, JR ####[address] [place] [phone] Calcium mass conc 9.4 mg/dL Normal 8.5-10.2 [facility] Comment on above: Performed By: #### C BCDIF, BMP, JR ####[address] [place] [phone] Chloride molar conc 102 mmol/L Normal 97-105 [facility] Comment on above: Performed By: #### C BCDIF, BMP, JR ####[address] Av[address] [place] [phone] CO2 molar conc 24 mmol/L Normal 22-30 [facility] Comment on above: Performed By: #### C BCDIF, BMP, JR ####[place] [address] [address] [place] [phone] Creatinine mass conc 1.04 mg/dL Normal 0.73-1.22 [facility] Comment on above: Performed By: #### C BCDIF, BMP, JR ####[place] [address] [address] [place] [phone] eGFR- Amer. >60 Normal [facility] Comment on above: Performed By: #### C BCDIF, BMP, JR ####[place] [address] [address] [place] [phone] GFR/1.73 sq M predicted among non-blacks MDRD vol rate/area (S/P/Bld) mL/min/{1.73_m2} Normal [facility] Comment on above: Result Comment: eGFR [...] Performed By: #### C BCDICK REGALADO, JR ####[facility] [place], [place] [phone] Glucose mass conc 97 mg/dL Normal 74-99 [facility] Comment on above: Result Comment: The [place] Diabetes Association (ADA) provides guidance for cutoff [...] Standards of Medical Care in Diabetes 2016, [place] Diabetes Association. Diabetes Care. 2016.39(Suppl 1). Performed By: #### C BCDMITRIYFDICK, JR ####[facility] [address] [place], [place] [phone] Potassium molar conc 4.7 mmol/L Normal 3.7-5.1 [facility] Comment on above: Performed By: #### C BCDIFDICK, JR ####[facility] [place], [place] [phone] Sodium molar conc 139 mmol/L Normal 136-144 [facility] Comment on above: Performed By: #### C BCDMITRIYF, BMP, JR ####[address] AvDonna V[address] [phone] Urea nitrogen mass conc 22 mg/dL Normal 9-24 [facility] Comment on above: Performed By: #### C BCDIF, BMP, JR ####[place] [phone] CBC and Differentialon 03-07 Abs Baso 0.03 k/uL Normal <0.11 [facility] Comment on above: Performed By: #### C BCDIF, BMP, JR ####[place] [phone] Abs [place] 0.69 k/uL Normal <0.87 [facility] Comment on above: Performed By: #### C BCDIF, BMP, JR ####[place] [phone] Abs Neut 3.08 k/uL Normal 1.45-7.50 [facility] Comment on above: Performed By: #### C BCDIF, BMP, JR ####[address] AveCVickie [address] [phone] Absolute nRBC <0.01 Normal <0.01 [facility] Comment on above: Performed By: #### C BCDIF, BMP, JR ####[place] [address] [address] [phone] Basophils/100 WBC Auto (Bld) 0.5 % Normal [facility] Comment on above: Performed By: #### C BCDIF, BMP, JR ####[address] AveCVickie [place] [phone] DTYPE Auto Diff Normal [facility] Comment on above: Performed By: #### C BCDIF BMP, JR ####[facility] AveClevelandE[address] [place] [phone] Eosinophils Auto #/vol (Bld) 0.08 10*3/uL Normal <0.46 [facility] Comment on above: Performed By: #### C BCDIF, BMP, JR ####[facility] Ave[address]leveland[address] [place] [phone] Eosinophils/100 WBC Auto (Bld) 1.2 % Normal [facility] Comment on above: Performed By: #### C BCSABINE BMP, RJ ####[place] [address] [address]leveland[address] [place] [phone] Erythrocyte distribution width Auto Ratio (RBC) 13.8 % Normal 11.5-15.0 [facility] Comment on above: Performed By: #### C BCDMITRIYF BMP, JR ####[place] [address] [address] AveClevelKathleen [place] [phone] Hematocrit Auto Volume Fraction (Bld) 40.1 % Normal 39.0-51.0 [facility] Comment on above: Performed By: #### C BCDMITRIYF BMP, JR ####[facility]leveland[address] [place] [phone] Hemoglobin mass conc (Bld) 13.7 g/dL Normal 13.0-17.0 [facility] Comment on above: Performed By: #### C BCDIF BMP, RJ ####[facility]leveland[address] [place] [phone] Lymphocytes Auto #/vol (Bld) 2.58 10*3/uL Normal 1.00-4.00 [facility] Comment on above: Performed By: #### C BCDIF, BMP, JR ####[place] [address] [address]leveland[address] [place] [phone] Lymphocytes/100 WBC Auto (Bld) 39.9 % Normal [facility] Comment on above: Performed By: #### C BCDICK REGALADO, JR ####[place] [address] [place] [phone] MCH Auto Entitic mass (RBC) 29.8 pG Normal 26.0-34.0 [facility] Comment on above: Performed By: #### C BCDICK REGALADO, JR ####[place] [address] [address] [phone] MCHC Auto mass conc (RBC) 34.2 g/dL Normal 30.5-36.0 [facility] Comment on above: Performed By: #### C DICK LEE, JR ####[place] [address] [address] [phone] MCV Auto Entitic volume (RBC) 87.4 fL Normal 80.0-100.0 [facility] Comment on above: Performed By: #### C BCDICK REGALADO, JR ####[place] [address] [address] [place] [phone] Monocytes/100 WBC Auto (Bld) 10.7 % Normal [facility] Comment on above: Performed By: #### C BCDICK REGALADO, JR ####[place] [address] [address] [phone] Neutrophils/100 WBC Auto (Bld) 47.7 % Normal [facility] Comment on above: Performed By: #### C BCDICK REGALADO, JR ####[place] [address] [address] [phone] NRBCs 0.0 /100 WBC Normal 0 [facility] Comment on above: Performed By: #### C BCDICK REGALADO, JR ####[place] [address] AveClevelKathleen [place]ille [phone] Platelet mean volume Auto Entitic volume (Bld) 9.9 fL Normal 9.0-12.7 [facility] Comment on above: Performed By: #### C BCDIF, BMP, JR ####[facility] [place], [place] [phone] Platelets Auto #/vol (Bld) 152 10*3/uL Normal 150-400 [facility] Comment on above: Performed By: #### C BCDIF, BMP, JR ####[facility] [place], [place] [phone] RBC Auto #/vol (Bld) 4.59 10*6/uL Normal 4.20-6.00 [facility] Comment on above: Performed By: #### C BCDIF, BMP, JR ####[facility] [place], [place] [phone] WBC Auto #/vol (Bld) 6.47 10*3/uL Normal 3.70-11.00 [facility] Comment on above: Performed By: #### C BCDIF, BMP, JR ####[facility] [place], [place] [phone] CT CHEST W IVCON PEon 2017 CT CHEST W IVCON PE * * *Final Report* * *DATE OF EXAM: Mar 07 2018 5:00PM [facility] 0540 - CT CHEST W IVCON [...] size. Changes from coronary artery bypass grafting. Venetie Ira triple-vessel coronary artery atherosclerotic calcifications are noted, [...] CRUZ MD on Mar 07 2018 6:04PM [id number] Normal [facility] D dimeron 03-07-2018 D dimer 2100 ng/mL FEU High <500 [facility] Comment on above: Result Comment: The [...] of 41.7%. Performed By: #### D DMER ####[facility] [address] [place], [place] [phone] ED NOTEon 03-07-2018 ED NOTE HNO ID: [id number] Author: Avila Baum, SEBASTIAN Service: Emergency Medicine Author Type: Registered Nurse Type: ED Notes Filed: 03/07/2018 8:48 PM Note Text: Report called to Quynh CORTES. Bed ready. Normal [facility] ED NOTE HNO ID: [id number] thor: Avila Baum, SHARONervice: Emergency MedicineAuthor Type: Registered NurseType: ED NotesFiled: 03/07/2018 7:34 PMNote Text:Assumed care of pt. Pt presenting to ED with c/o SOB. Pt states We wenton a 3 week trip to [place], and we tried to buy oxygen to help mandy. When I got back I just could not catch my breath. Pt denies anyCP, AGUAYO, dizziness, SOB, or lightheadedness at this time. Pt able toambulate to bathroom, without becoming SOB. Pt on monitor, NSR 84. Pulseox 98% on RA. NAD noted. ABCs intact. Safety checks performed. Willcontinue to monitor. Normal [facility] ED NOTE HNO ID: [id number] Author: Warren (Medic) Taylor Cuenca Service: Emergency Medicine Author Type: Mounting Inspector and Geodetic Advisor Type: ED Notes Filed: 03/07/2018 2:26 PM Note Text: Labs were drawn and sent. Normal [facility] ED NOTE HNO ID: [id number] thor: Micaela (Rn) SHARON Salaservice: Emergency MedicineAuthor [...] non-tender, SAMUEL's x 4 and followscommands. Normal [facility] ED NOTE HNO ID: [id number] Author: Nancy CareyRn) SEBASTIAN Fountain Service: (none) Author Type: Registered Nurse Type: ED Notes Filed: 03/07/2018 2:06 PM Note Text: Bed: E12-18 Expected date: Expected time: Means of arrival: Comments: Normal [facility] ED PROV NOTEon 03-07-2018 Protein mass conc HNO ID: [id number] thor: GENE Navaervice: Emergency MedicineAuthor Type: PhysicianType: ED Provider NotesFiled: 03/08/2018 12:47 AMNote Text:ED Provider NotePatient Name: Florin VargasMRN: [id number] DATE: 03/07/18HistoryPatient presents with:Shortness of Breath: h/o aortic valve replacement December. Had three weekroad trip, now having SOB. On ASA and Xlxrif65 yo M with PMH including CAD s/p CABGs, Aortic Stenosis s/p TAVR 12/29,HL presenting to the ED today with SOB. Patient was doing well after hissurgery, no CP or SOB. Took a trip to [place] and developed SOB whilethere. Notes [place], and more noticeable shortness or breath when he istrying to sleep, no change if he is lying flat or sitting up though.States he developed chest pain while riding a Jeep on a [place] holding pressure over [...] No- Sexual activity: Not on fileALLERGIESAllergen Reactions- Tfepoks-Glg-Nnl Red* Intolerance Statins caused myalgias, couldn't talk, [...] rhythm and intact distal pulses.No murmur heard.Loud H0Sojwbthcm/Chest: Effort normal and breath sounds normal. He [...] the following corrections/addenda:Mr. Vargas is a 78yo Presybeterian M with a h/o CAD s/p CABG (GRAJEDA-LAD) [id number] and redo CABG (2001) with severe s/p TAVR (12/27/17) who comes infor new [place] and PND with 1-pillow orthopnea and associated exertionallightheadedness and nausea that he first noted after taking a 3-day bustrip to [place]. He did not notice and LE swelling or pain during histrip or preceding his symptoms and denies any associated chestpain/palpitations. He denies any personal or family history of clottingdisorders and reports full compliance with his DAPT (clopidogrel/ASA). Heotherwise has had no recent infectious sx.He initially attributed his symptoms to the elevation ([place],where he was, is at [place] elevation of 6000 ft) and acquired supplemental OTCO2 and reports having some improvement in his symptoms, but he has notreturn to his baseline exercise tolerance since returning to [place]. He deniesassociated LE swelling, abdominal distension or changes in appetite/POintake. His documented weight today is 180lbs, which his c/w hisdocumented weight of 179lbs at his 01/12 post-TAVR cardiology appointment.His 1 month post-TAVR echo (in [place]) was reportedly unchanged from hisimmediate post-TAVR echo.OE: pleasant and non-toxic Presybeterian M appearing younger than stated agerrr, [id number] ctab with some scattered bronchiolitic breath sounds [...] in the AM.Britni Chowdhury MD03/08/18 0047 Normal [facility] EKG1on 03-07-2018 Protein mass conc NAME : Eliseo VARGAS ONASPID : [id number] : 1940 Gender : MaleRace : CaucasianORD : Procedure Date : Mar 07 2018 14:04:58Edit Date : Mar 11 2018 00:09:39 Diagnosis:SINUS RHYTHM WITH OCCASIONAL PREMATURE VENTRICULAR COMPLEXESMINIMAL VOLTAGE CRITERIA FOR LVH, MAY BE NORMAL VARIANTCANNOT EXCLUDE ANTERIOR MYOCARDIAL INFARCTION , AGE UNDETERMINEDABNORMAL ECGNOTE: PLEASE SEE PHYSICIAN'S NOTE FROM EMatilda VISITNOTE: PLEASE SEE PHYSICIAN'S NOTE FROM Sharif VISITReconfirmed by GABINO Prado, PEDRO ([id number]), website/blog editor MARLENA YOUNGER ([id number]) on 03/11/2018 12:09:29 AM Ventricular Rate : 75 BPMAtrial Rate : 75 BPMP-R Interval : 198 msQRS Duration : 94 msQ-T Interval : 414 msQTC Calculation(Bezet) : 462 msP [place] : 19 degreesR [place] : -15 degreesT [place] : 113 degrees Test Reason : Location : 2 : EDNS Overread By : GABINO Prado,ERICEdited By : ROMELIA YOUNGERITReferred By : ,Acquired by : Jonel CONDON [facility] HISTORY PHYSICALon 8 HISTORY PHYSICAL HNO ID: [id number] thor: Ladarius Grajeda: Cardiovascular MedicineAuthor Type: PhysicianType: HANDPFiled: 03/08/2018 9:15 AMNote Text: HEART and VASCULAR INSTITUTECARDIOVASCULAR MEDICINE HISTORY AND PHYSICAL (Template ID [id number])Florin [id number] SERVICE: Cardiovascular Medicine: InterventionDATE OF ADMISSION: 03/07/2018CHIEF COMPLAINTCHF exacerbationHISTORY OF PRESENT ILLNESSFlorin Vargas is a 78 year old male who presents with progressiveshortness of breath to ED.PMH- CABG 1995 Grajeda-LAD ([facility]); redo CAB [facility]- severe s/p TAVR 26 mm Ewards on 12/27/[address] Villa.- osital, proximal and mid-distal RCA stenting on 11/22/2017 with 4.0/12 mmsynergy EES, 4.0/38 mm synergy ees and 3.5/[address] Cancino- HTN- HLDHe was doing well post TAVR. Returned home two days after TAVR on 12/29and was feeling well enough to travel to [place] with his family.He left for [place] on the 19 of February and returned [...] (radiology procedure) INTRAVENOUS DIRECTED PRNALLERGIESALLERGIESAllerg en Reactions- Amgmusp-Nun-Npt Red* Intolerance Statins caused myalgias, couldn't talk, affected my kidneysREVIEW OF CTGZWFT64 point negative as per hpiPHYSICAL EXAMBP 152/74 [...] (mg/dL)Date Value12/29/2017 68 No results found for: CKI1BEPN:NSR with one PVC. No ST or T [...] to be discussed with José Manuel Ascencio [phone] (please see below for after hours communication)03/07/20188:34 PMFor communication after 5 pm on weekdays and after 12 pm on weekends,please page the following:- Clinical Cardiology patients on all floors: page [phone]- Other Cardiology patients on J5 and J6: page [phone]- Other Cardiology patients on J7 and J8: page [phone] STAFF PHYSICIAN NOTE OF PERSONAL INVOLVEMENT IN [...] 08, 2018TIME OF SERVICE: 9:11 AM Normal [facility] NT Pro BNPon 03-07-2018 Protein mass conc 3139 pg/mL High <450 [facility] Comment on above: Performed By: #### N TBNP ####[facility] [address] [place], [place] [phone] NURSING PROGon 03-07-2018 Protein mass conc HNO ID: [id number] thor: Quynh (Rn) Awls, RNService: NursingAuthor Type: Registered NurseType: Nursing Progress NoteFiled: 03/08/2018 6:53 AMNote Text:Pt admittetd J53-2. Pt transferred safely. Pt AO X3. Skin assessment WNLno pressure injuries. ( SEBASTIAN layne)Pt has a abrasion to left knee. Normal [facility] PROGRESSon 03-07-2018 Protein mass conc HNO ID: [id number] thor: Bhargav (Ct) Prateek Winn: (none)Author Type: Clinical TechnicianType: Progress NotesFiled: 03/07/2018 4:55 PMNote Text: Radiology Service Progress NotePATIENT NAME: Florin VargasMRN: [id number] OF SERVICE: March 07, 2018TIME: 4:52 PMPATIENT IDENTITY VERIFICATION COMPLETED USING TWO (2) METHODS: Patientconfirmed name verbally and ID band matches..PATIENT GENDER DATA: MalePATIENT RELEVANT IMPLANT DATA REVIEWED: YesCONTRAST INDUCED NEPHROPATHY RISK FACTORS: Patient age > 60 yearsCREATININE:CreatinineD ate Value Ref Range Nnbdee9603/07/2018 1.04 0.73 - 1.22 mg/dL Final01/12/2018 1.04 0.73 - 1.22 mg/dL Final12/29/2017 0.97 0.73 - 1.22 mg/dL Final eGFR-All Other RacesDate Value Ref Range Ydzhcn4103/07/2018 >60 . FinalComment:eGFR (Estimated GFR) Units of [...] actual GFR. eGFR- AmericanDate Value Ref Range Ajtvvc0103/07/2018 >60 Final P.O.C.T. RESULTS: N/A March 07, 2018RADIOLOGIST NOTIFIED?: AcERGIES: Reviewed and unchangedCONTRAST ALLERGY: NO.PERIPHERAL IV ACCESS: Ambulatory: IV type: Existing peripheral IVutilized, Site assessment: Clean,Dry and Intact, Site disposition Left infor next appointmentRADIOLOGY DEPARTMENT: CT; Exam(s) Completed: PE StudySIGNED BY: RT Alessandro(R)(CT)March 07, 2018 4:52 PM Normal [facility] Protein mass conc HNO ID: [id number] thor: Martha (Rt) Mauricevice: RadiologyAuthor Type: TechnicianType: Progress NotesFiled: 03/07/2018 2:36 PMNote Text: Radiology Service Progress NotePATIENT NAME: Florin VargasMRN: [id number] OF SERVICE: March 07, 2018TIME: 2:36 PMPATIENT IDENTITY VERIFICATION COMPLETED USING TWO (2) METHODS: Patientconfirmed name verbally and ID band matches..PATIENT GENDER DATA: MalePATIENT RELEVANT IMPLANT DATA REVIEWED: Not ApplicableRADIOLOGY DEPARTMENT: General X-ray: Exam(s) Completed: Chest X-RayPERIPHERAL IV DATA: Not applicableSIGNED BY: RT ZaneJuly 2017 2:36 PM Normal [facility] Troponin Ton 03-07-2018 Troponin T.cardiac mass conc ug/L Normal 0.000-0.02 9 [facility] Comment on above: Performed By: #### C BCDIF, BMP, JR ####[facility] [address] [place], [place] [phone] XR CHEST 2V FRONTAL/LATon XR CHEST 2V [...] cardiomediastinal silhouette. There is aortic atherosclerotic calcification.Other: .Office Clin Asst: JOSE ARMANDO Transcribe Date/Time: Mar 07 2018 2:41PDictated by : NALINI FOSS MDThis examination was interpreted and the report reviewed and electronically signed by: NALINI FOSS MD on Mar 07 2018 2:44PM [id number] Normal [facility] 03-06-2018 CNPN Telephone (HVICTR) -------FLORIN VARGAS ([id number]) 1940 MDate Time Provider Department03/06/18 LADARIUS CANCINO ICTR During your visit today, we recorded the following information about you:Sofia Nieto RN, RN 03/06/2018 4:49 PM Signed [facility] Contact Center Inbound Phone EncounterDATE of SERVICE: 03/06/2018TIME of SERVICE: 4:46 PMStatus: Non-urgent, needs attentionService/Provider: Interventional Ladarius Cancino MDReason for call: Shortness of BreathContact information: [phone]: Sent to [facility]: calling post discharge line. States they took a trip to [place]02/19-03/03. Ever since then, he has has had issues with SOB on exertion/walkingaround. Request to be contacted at # listed above.Sofia Nieto RNDate of Resolution: 03/06/2018Time of Resolution 4:46 PMChantale Che PA-C 03/06/2018 5:56 PM SignedSeen by Bhargav Becerril PA-C 01/12/2018 s/p TAVR was SOB at that time which was hisbaseline. He was going to see his local brickmason apprentice in a month with an echo.I was not able to reach the pt or his at number below.Mandi Bartlett RN 03/07/2018 11:28 AM SignedPatient is requesting a call back and can be reached at [phone] Centergermaine Bartlett, Em Sky PA-C 03/07/2018 3:37 PM SignedPt is in the ER at this time being evaluated for the dyspnea.Allergies As of Date: 03/06/2018 Noted Allergy CqxednuiVNLDHIN-CDF-CVY REDUCTASE INHIBIT*12/29/2017 5 - Intolerance Comments: Statins caused myalgias, couldn't talk, affected my kidneysDate Reviewed: 12/29/2017Reviewed by: Debbie CareyRn) SEBASTIAN Almeida - Fully AssessedReason for Visit: Post Dc Program Call - Needs Attn [[id number]]Prescriptions as of 03/06/2018 Sig: EZETIMIBE 10 MG [...] Status:Closed by SOFIA NIETO on 03/06/18 Normal [facility] Basic Metabolic Panlon 01-12 Anion gap 3 molar conc 11 mmol/L Normal - [facility] Comment on above: Performed By: #### C BC, BMP, PSA ####[facility] [address] [place], [place] [phone] Calcium mass conc 9.7 mg/dL Normal 8.5-10.2 [facility] Comment on above: Performed By: #### C BC, BMP, PSA ####[facility] [address] [place] [address]CE[address], [place] [phone] Chloride molar conc 104 mmol/L Normal 97-105 [facility] Comment on above: Performed By: #### C BC, BMP, PSA ####[facility] [address] [place] AveCVickie [place] [phone] CO2 molar conc 24 mmol/L Normal 22-30 [facility] Comment on above: Performed By: #### C BC, BMP, PSA ####[facility] [place] AveCV[address] [place] [phone] Creatinine mass conc 1.04 mg/dL Normal 0.73-1.22 [facility] Comment on above: Performed By: #### C BC, BMP, PSA ####[place] [address] [place] [address] [place] [phone] eGFR- Amer. >60 Normal [facility] Comment on above: Performed By: #### C BC, BMP, PSA ####[place] [address] [place] [address], [place] [phone] GFR/1.73 sq M predicted among non-blacks MDRD vol rate/area (S/P/Bld) mL/min/{1.73_m2} Normal [facility] Comment on above: Result Comment: eGFR [...] Performed By: #### C BC, BMP, PSA ####[facility] [place] [address] [place] [phone] Glucose mass conc 89 mg/dL Normal 74-99 [facility] Comment on above: Result Comment: The [place] Diabetes Association (ADA) provides guidance for cutoff [...] Standards of Medical Care in Diabetes 2016, [place] Diabetes Association. Diabetes Care. 2016.39(Suppl 1). Performed By: #### C BC, BMP, PSA ####[facility] [place], [place] [phone] Potassium molar conc 5.1 mmol/L Normal 3.7-5.1 [facility] Comment on above: Performed By: #### C BC, BMP, PSA ####[facility] [place] [address] [place], [place] [phone] Sodium molar conc 139 mmol/L Normal 136-144 [facility] Comment on above: Performed By: #### C BC, BMP, PSA ####[facility] [place], [place] [phone] Urea nitrogen mass conc 25 mg/dL High 9-24 [facility] Comment on above: Performed By: #### C BC, BMP, PSA ####[facility] [address] [place], [place] [phone] CBCon 01-12-2018 Absolute nRBC <0.01 Normal <0.01 [facility] Comment on above: Performed By: #### C BC, BMP, PSA ####[facility] [place], [place] [phone] Erythrocyte distribution width Auto Ratio (RBC) 13.5 % Normal 11.5-15.0 [facility] Comment on above: Performed By: #### C BC BMP, PSA ####[facility] [place] [address] [place] [phone] Hematocrit Auto Volume Fraction (Bld) 42.5 % Normal 39.0-51.0 [facility] Comment on above: Performed By: #### C BC BMP, PSA ####[place] [address] [place] [address] [place] [phone] Hemoglobin mass conc (Bld) 13.8 g/dL Normal 13.0-17.0 [facility] Comment on above: Performed By: #### C RADHA BMP, PSA ####[place] [address] [place] [address] [place] [phone] MCH Auto Entitic mass (RBC) 29.4 pG Normal 26.0-34.0 [facility] Comment on above: Performed By: #### C BC BMP, PSA ####[place] [address] [place] [address] [place] [phone] MCHC Auto mass conc (RBC) 32.5 g/dL Normal 30.5-36.0 [facility] Comment on above: Performed By: #### C BC BMP, PSA ####[place] [address] [place] [address] [place] [phone] MCV Auto Entitic volume (RBC) 90.4 fL Normal 80.0-100.0 [facility] Comment on above: Performed By: #### C BC BMP, PSA ####[facility] [place] [address] [place] [phone] Platelet mean volume Auto Entitic volume (Bld) 10.1 fL Normal 9.0-12.7 [facility] Comment on above: Performed By: #### C BC, BMP, PSA ####[place] [address] [place] [address] [place] [phone] Platelets Auto #/vol (Bld) 182 10*3/uL Normal 150-400 [facility] Comment on above: Performed By: #### C BC, BMP, PSA ####[facility] [address], [place] [phone] RBC Auto #/vol (Bld) 4.70 10*6/uL Normal 4.20-6.00 [facility] Comment on above: Performed By: #### C BC, BMP, PSA ####[facility] [address] [place], [place] [phone] WBC Auto #/vol (Bld) 7.36 10*3/uL Normal 3.70-11.00 [facility] Comment on above: Performed By: #### C BC, BMP, PSA ####[facility] [address] [place], [place] [phone] CNOVon 01-12-2018 CNOV Office Visit (CATHMN) -------FLORIN VARGAS ([id number]) 1940 MDate Time Provider Department01/12/18 1:00 PM [...] , coronary artery disease s/p CABG 1995 GRAJEDA-LAD?([facility]),redo CABG (2001 [facility]) and severe aortic stenosis, who presents [...] PCI/ENE- Pt will follow up with local brickmason apprentice for 30 day visit and echo(I25.10) Coronary artery disease involving big sandy coronary artery of nativeheart without angina pectoris- History of CABG 1995 GRAJEDA-LAD?([facility]), [facility]o [facility]G [facility] Status post successful PCI to the ostial, [...] [953]Allergies As of Date: 01/12/2018 Noted Allergy PicuqgzcDDVQDOU-CTO-PTB REDUCTASE INHIBIT*12/29/2017 5 - Intolerance Comments: Statins caused myalgias, couldn't talk, affected my kidneysDate Reviewed: 12/29/2017Reviewed by: Debbie (Rn) SEBASTIAN Almeida - Fully AssessedReason for Visit: Follow Up [171]Primary Visit Diagnosis:Nonrheumatic aortic valve stenosis [I35.0] Other Visit Diagnoses: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 artery disease involving big sandy coronary artery of big sandy heart without angina pectoris [I25.10] Other hyperlipidemia [...] for Pt will follow up with local brickmason apprentice for 30 day visit and echo.Follow-up and Disposition History RecordedEncounter Number: [id number] Status:Closed by BHARGAV BECERRIL PA-C on 01/15/18 [facility] PROGRESSon 01-12-2018 Protein mass conc HNO ID: [id number] thor: Bhargav Nguyen) Carolervice: (none)Author Type: Physician [...] s/p CABG 1995 GRA[facility]EDA-LAD?([facility]), redo CABG (2001 [facility]) and severe aortic stenosis, who presentstoday [...] PCI/ENE- Pt will follow up with local brickmason apprentice for 30 day visit and echo(I25.10) Coronary artery disease involving big sandy coronary artery ofnative heart without angina pectoris- History of CABG 1995 GRAJEDA-LAD?([facility]), redo CABG (2001 [facility])- Status post successful PCI to the ostial, [...] today's visitMorris Joel 2017 7:14 AM Normal [facility] PSA, Diagnosticon 01-12-2018 PSA, Diagnostic 1.48 ng/mL Normal 0.00-2.59 [facility] Comment on above: Result Comment: Morris santiago PSA test methodology used is the Electrochemiluminescence Immunoassay. Performed By: #### C BC, BMP, PSA ####[facility] [address] [place], [place] [phone] CNCOon 01-05-2018 CNCO Letter Avelino Paiz [facility] / J4-1Phone: Nax: [phone] 2017Pedro Gonzalez MDFAX: [phone]: Florin [facility]argas [facility] NO: [id number] Dr. Gonzalez:Your patient underwent a TAVR, Transcatheterization Aortic Replacement Valve,at [facility] on 12/27/17. The following is a copy of the patient'soperative report.It was a pleasure to participate in the care of your patient.Sincerely,Valentina Paiz, MDSurgical Director, Transcatheter Aortic Valve ProgramSlake taylor transitional care hospital Cardiac SurgeonS/de Normal [facility] Basic Metabolic Panlon 12-29 Anion gap 3 molar conc 15 mmol/L Normal -18 [facility] Comment on above: Performed By: #### C BCDIF, PT, CMP, NTBNP ####[facility] [address] [place] [phone] Calcium mass conc 8.5 mg/dL Normal 8.5-10.2 [facility] Comment on above: Performed By: #### C BCDIF, PT, CMP, NTBNP ####[place] [id number] [place] [phone] Chloride molar conc 101 mmol/L Normal 97-105 [facility] Comment on above: Performed By: #### C BCDIF, PT, CMP, NTBNP ####[facility] [place] AveCV[address] [place] [phone] CO2 molar conc 22 mmol/L Normal 22-30 [facility] Comment on above: Performed By: #### C BCDIF, PT, CMP, NTBNP ####[facility] [address] [place] AveCVickie [place] [phone] Creatinine mass conc 0.97 mg/dL Normal 0.73-1.22 [facility] Comment on above: Performed By: #### C BCDIF, PT, CMP, NTBNP ####[facility] [address] [place] Ave[place] [phone] eGFR- Amer. >60 Normal [facility] Comment on above: Performed By: #### C BCDIF, PT, CMP, NTBNP ####[facility] [place], [place] [phone] GFR/1.73 sq M predicted among non-blacks MDRD vol rate/area (S/P/Bld) mL/min/{1.73_m2} Normal [facility] Comment on above: Result Comment: eGFR [...] By: #### C BCDIF, PT, CMP, NTBNP ####[facility] [place], [place] [phone] Glucose mass conc 83 mg/dL Normal 74-99 [facility] Comment on above: Result Comment: The [place] Diabetes Association (ADA) provides guidance for cutoff [...] Standards of Medical Care in Diabetes 2016, [place] Diabetes Association. Diabetes Care. 2016.39(Suppl 1). Performed By: #### C BCDIF, PT, CMP, NTBNP ####[facility] [address] [place], [place] [phone] Potassium molar conc 4.3 mmol/L Normal 3.7-5.1 [facility] Comment on above: Result Comment: Resu lts may be falsely increased due to interference by hemolysis. Suggest reorder as clinically indicated. Performed By: #### C BCDIF, PT, CMP, NTBNP ####[place] [address] [place] [address] [place] [phone] Sodium molar conc 138 mmol/L Normal 136-144 [facility] Comment on above: Performed By: #### C BCDIF, PT, CMP, NTBNP ####[address]CVickie [address]ille [phone] Urea nitrogen mass conc 15 mg/dL Normal 9-24 [facility] Comment on above: Performed By: #### C BCDIF, PT, CMP, NTBNP ####[address] AveCVickie [address] [phone] CBC and Differentialon 12-29 Abs Baso <0.03 Normal <0.11 [facility] Comment on above: Performed By: #### C BCDIF, PT, CMP, NTBNP ####[address] AveCVickie [address] [phone] Abs [place] 0.87 k/uL High <0.87 [facility] Comment on above: Performed By: #### C BCDIF, PT, CMP, NTBNP ####[place] [address] [place] [address] [place] [phone] Abs Neut 3.94 k/uL Normal 1.45-7.50 [facility] Comment on above: Performed By: #### C BCDIF, PT, CMP, NTBNP ####[place] [address] [place] [address] [place] [phone] Absolute nRBC <0.01 Normal <0.01 [facility] Comment on above: Performed By: #### C BCDIF, PT, CMP, NTBNP ####[place] [address] [place] AveClevelKathleen [place] [phone] Basophils/100 WBC Auto (Bld) 0.3 % Normal [facility] Comment on above: Performed By: #### C BCDIF, PT, CMP, NTBNP ####[place] [address] [place] [address]ClevelKathleen [place] [phone] DTYPE Auto Diff Normal [facility] Comment on above: Performed By: #### C BCDIF, PT, CMP, NTBNP ####[place] [address] [place] [address] [place] [phone] Eosinophils Auto #/vol (Bld) 0.27 10*3/uL Normal <0.46 [facility] Comment on above: Performed By: #### C BCDIF, PT, CMP, NTBNP ####[place] [address] [place] [address]ClevelK[address]leen [place] [phone] Eosinophils/100 WBC Auto (Bld) 3.6 % Normal [facility] Comment on above: Performed By: #### C BCDIF, PT, CMP, NTBNP ####[place] [address] [place] [address] [place] [phone] Erythrocyte distribution width Auto Ratio (RBC) 14.1 % Normal 11.5-15.0 [facility] Comment on above: Performed By: #### C BCDIF, PT, CMP, NTBNP ####[place] [address] [place] [address]ClevelK[address]leen [place] [phone] Hematocrit Auto Volume Fraction (Bld) 41.3 % Normal 39.0-51.0 [facility] Comment on above: Performed By: #### C BCDIF, PT, CMP, NTBNP ####[place] [address]ClevelK[address] [place] [phone] Hemoglobin mass conc (Bld) 13.6 g/dL Normal 13.0-17.0 [facility] Comment on above: Performed By: #### C BCDIF, PT, CMP, NTBNP ####[place] [address] [place] [address] [place] [phone] Lymphocytes Auto #/vol (Bld) 2.38 10*3/uL Normal 1.00-4.00 [facility] Comment on above: Performed By: #### C BCDIF, PT, CMP, NTBNP ####[place] [address] [place] [address] [place] [phone] Lymphocytes/100 WBC Auto (Bld) 31.8 % Normal [facility] Comment on above: Performed By: #### C BCDIF, PT, CMP, NTBNP ####[place] [address] [place] [address] [place] [phone] MCH Auto Entitic mass (RBC) 29.2 pG Normal 26.0-34.0 [facility] Comment on above: Performed By: #### C BCDIF, PT, CMP, NTBNP ####[place] [address] [place] [address] [place] [phone] MCHC Auto mass conc (RBC) 32.9 g/dL Normal 30.5-36.0 [facility] Comment on above: Performed By: #### C BCDIF, PT, CMP, NTBNP ####[place] [address] [place] [address] [place] [phone] MCV Auto Entitic volume (RBC) 88.6 fL Normal 80.0-100.0 [facility] Comment on above: Performed By: #### C BCDIF, PT, CMP, NTBNP ####[place] [address] [place] [address] [place] [phone] Monocytes/100 WBC Auto (Bld) 11.6 % Normal [facility] Comment on above: Performed By: #### C BCDIF, PT, CMP, NTBNP ####[place] [address] [place] [address] [place] [phone] Neutrophils/100 WBC Auto (Bld) 52.7 % Normal [facility] Comment on above: Performed By: #### C BCDIF, PT, CMP, NTBNP ####[place] [id number] [place] [address], [place] [phone] NRBCs 0.0 /100 WBC Normal 0 [facility] Comment on above: Performed By: #### C BCDIF, PT, CMP, NTBNP ####[place] [address], [place] [phone] Platelet mean volume Auto Entitic volume (Bld) 10.7 fL Normal 9.0-12.7 [facility] Comment on above: Performed By: #### C BCDIF, PT, CMP, NTBNP ####[address], [place] [phone] Platelets Auto #/vol (Bld) 120 10*3/uL Low 150-400 [facility] Comment on above: Result Comment: Resu lt checked and verifiedNo clot detected. Performed By: #### C BCDIF, PT, CMP, NTBNP ####[place] [address] [place], [place] [phone] RBC Auto #/vol (Bld) 4.66 10*6/uL Normal 4.20-6.00 [facility] Comment on above: Performed By: #### C BCDIF, PT, CMP, NTBNP ####[place] [address], [place] [phone] WBC Auto #/vol (Bld) 7.49 10*3/uL Normal 3.70-11.00 [facility] Comment on above: Performed By: #### C BCDIF, PT, CMP, NTBNP ####[place] [address], [place] [phone] Lipid Panel, Basicon 018 Cholesterol in HDL mass conc 62 mg/dL Normal >39 [facility] Comment on above: Result Comment: 40-5 9 mg/dL, Acceptable>59 mg/dL, High: Negative risk factor for coronary heart disease<40 mg/dL, Low: Positive risk factor for coronary heart disease Performed By: #### L IPB ####[place] [phone] Cholesterol in LDL mass conc 194 mg/dL High <100 [facility] Comment on above: Result Comment: <100 mg/dL, Optimal 100-129 mg/dL, Near optimal/above optimal 130-159 mg/dL, Borderline high 160-189 mg/dL, High>189 mg/dL, Very highSecondary prevention optimal LDL Cholesterol levels are recommended to be < 70 mg/dL Performed By: #### L IPB ####[place] [phone] Cholesterol mass conc 270 mg/dL High <200 [facility] Comment on above: Result Comment: <200 mg/dL, Desirable 200-239 mg/dL, Borderline high>239 mg/dL, High Performed By: #### L IPB ####[place] [phone] Fasting Time Unknown Normal [facility] Comment on above: Performed By: #### L IPB ####[place] [phone] LDL:HDL Ratio 3.13 High <2.54 [facility] Comment on above: Result Comment: Refe renkenna:1. National Cholesterol Education Program ATP III Guideline At-A-Glance Quick Desk Reference: National Heart, Lung, and Blood Grant. National Institutes of Health. 2001: NIH Publication No. 01-3305.2. An International Atherosclerosis Society position paper: global recommendations for the management of dyslipidemia: executive summary, Atherosclerosis. 2014: 232(2):410-413. Performed By: #### L IPB ####[place] [phone] Non HDL Cholesterol 208 mg/dL High <130 [facility] Comment on above: Result Comment: <130 mg/dL, Optimal 130-159 mg/dL, Near optimal/above optimal 160-189 mg/dL, Borderline high 190-219 mg/dL, High>219 mg/dL, Very highSecondary prevention optimal non HDL Cholesterol levels are recommended to be < 100 mg/dL Performed By: #### L IPB ####[address] [phone] TC:HDL Ratio 4.35 Normal <5.10 [facility] Comment on above: Performed By: #### L IPB ####[address] [phone] Triglyceride mass conc 68 mg/dL Normal <150 [facility] Comment on above: Result Comment: <150 mg/dL, Normal 150-199 mg/dL, Borderline high 200-499 mg/dL, High>499 mg/dL, Very high Performed By: #### L IPB ####[place] [phone] VLDL Cholesterol 14 mg/dL Normal <30 [facility] Comment on above: Performed By: #### L IPB ####[address] [phone] OPERATIVE NOon 12-29-2017 OPERATIVE NO HNO ID: [id number] thor: Valentina Parkerice: Cardiac SurgeryAuthor Type: PhysicianType: Operative ReportFiled: 01/04/2018 7:53 AMNote Text:The [address] [address] or (592) [facility] O N F I D E N T I A L I N F O R M A T I O N --------STANDARD [facility] DOCUMENTOPERATIVE REPORTPatient Name: Florin Paige of Surgery: 12/27/2017Surgeon Mosaic Tiler(s):Maricruz Salter MDAssistant(s):MDs: Rody/PAs:Operations: Transfemoral implantation of aortic [...] radial artery.Over a Whisper J wire, a [place] embolic protection device was deployed.?The 5F sheath [...] the delivery catheter system was removed. The [place] embolicprotection device was removed over the Whisper [...] SIGNED by Licensed Independent Practitioner: MD Shanna [facility] PROGRESSon 12-29-2017 Protein mass conc HNO ID: [id number] thor: Ken Nguyen) SchraiderService: Cardiovascular MedicineAuthor Type: Physician AssistantType: Progress NotesFiled: 12/29/2017 12:55 PMNote Text: HEART and VASCULAR INSTITUTECARDIOVASCULAR MEDICINE PROGRESS NOTE(Template ID [id number])Florin E [id number] SERVICE: Hvi Card InterventionHOSPITAL DAY: # 2INTERVAL [...] : 443 ?msReviewed w Dr Jeong AND [facility]Jac Vargas is a 77 year old male with a history of hypertension,hyperlipidemia , coronary artery disease s/p CABG 1995 [facility]ED[facility]AD?([facility]), redo CABG ([facility]) and severe aortic stenosis,for pre-op TAVR [...] patientCase to be discussed with AUSTIN Velarde-CPager [phone] (please see below for after hours communication)12/29/201712:4 7 PMFor communication after 5 pm on weekdays and after 12 pm on weekends,please page the following:- Clinical Cardiology patients on all floors: page [phone]- Other Cardiology patients on J5 and J6: page [phone]- Other Cardiology patients on J7 and J8: page [phone] Normal [facility] Basic Metabolic Panlon 12-28 Anion gap 3 molar conc 15 mmol/L Normal 05-01 [facility] Comment on above: Performed By: #### C BCDIF, PT, CMP, NTBNP ####[facility] [place], [place] [phone] Calcium mass conc 8.4 mg/dL Low 8.5-10.2 [facility] Comment on above: Performed By: #### C BCDIF, PT, CMP, NTBNP ####[place] [address] [place] AveCVick[address] [phone] Chloride molar conc 100 mmol/L Normal 97-105 [facility] Comment on above: Performed By: #### C BCDIF, PT, CMP, NTBNP ####[place] [address] [address] AveCV[address]ie [address] [phone] CO2 molar conc 20 mmol/L Low 22-30 [facility] Comment on above: Performed By: #### C BCDIF, PT, CMP, NTBNP ####[place] [address] [place] [address] [phone] Creatinine mass conc 1.01 mg/dL Normal 0.73-1.22 [facility] Comment on above: Performed By: #### C BCDIF, PT, CMP, NTBNP ####[place] [address] [place] [address] [place] [phone] eGFR- Amer. >60 Normal [facility] Comment on above: Performed By: #### C BCDIF, PT, CMP, NTBNP ####[address] [place] [phone] GFR/1.73 sq M predicted among non-blacks MDRD vol rate/area (S/P/Bld) mL/min/{1.73_m2} Normal [facility] Comment on above: Result Comment: eGFR [...] By: #### C BCDIF, PT, CMP, NTBNP ####[facility] [place], [place] [phone] Glucose mass conc 89 mg/dL Normal 74-99 [facility] Comment on above: Result Comment: The [place] Diabetes Association (ADA) provides guidance for cutoff [...] Standards of Medical Care in Diabetes 2016, [place] Diabetes Association. Diabetes Care. 2016.39(Suppl 1). Performed By: #### C BCDIF, PT, CMP, NTBNP ####[address] [phone] Potassium molar conc 4.1 mmol/L Normal 3.7-5.1 [facility] Comment on above: Performed By: #### C BCDIF, PT, CMP, NTBNP ####[facility] [place], [place] [phone] Sodium molar conc 135 mmol/L Low 136-144 [facility] Comment on above: Performed By: #### C BCDIF, PT, CMP, NTBNP ####[facility] [place], [place] [phone] Urea nitrogen mass conc 24 mg/dL Normal 9-24 [facility] Comment on above: Performed By: #### C BCDIF, PT, CMP, NTBNP ####[place] [phone] [place], [place] [phone] CASE MGT INIT Peg 2017 CASE MGT INIT EVENS HNO ID: [id number] thor: Danielle (Rn) SHARON Fitzgeraldervice: Care ManagementAuthor Type: Registered NurseType: Care Mgt Initial AssessmentFiled: 12/28/2017 9:48 AMNote Text:CARE MANAGEMENT: ASSESSMENT AND DISCHARGE PLANSERVICE DATE: 12/28/2017SERVICE TIME: 9:44 AMPRIHEALTHSOUTH REHABILITATION HOSP[facility] OF SOUTHERN ARIZONAY CARE PHYSICIAN:Pedro Gonzalez [facility]ALS HOSPITALhone: [phone] STATUS: InpatientMEDICAL:Patient/Re presentative Stated Goals:Return homeHealth Insurance: [employer] Fundamo (Proprietary) POL[facility]YRussell County HospitalHealth Issues Impacting Discharge Plan: NoneLast Admission [...] Admission: caneHas the Patient Been in a Fdc Facility in the Past 30 days? 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 [place].ioing storePrimary Contact: Extended Emergency Contact InformationPrimary Emergency Contact: Rachel Vargas Maynjnao: SonSupportive: YesOther Important Patient Contacts: NoneCaregiver Assessment:Caregiver [...] - 0I feel financially burdened by my iet-od-uhukne expenses for myprescription medication: Disagree completely - [...] 28, 2017 : 9:44 AM PAGER/CONTACT #: [phone] Normal [facility] CBCon 12-28-2017 Absolute nRBC <0.01 Normal <0.01 [facility] Comment on above: Performed By: #### C BCDIF, PT, CMP, NTBNP ####[facility] [place], [place] [phone] Erythrocyte distribution width Auto Ratio (RBC) 13.6 % Normal 11.5-15.0 [facility] Comment on above: Performed By: #### C BCDIF, PT, CMP, NTBNP ####[facility] [place], [place] [phone] Hematocrit Auto Volume Fraction (Bld) 38.4 % Low 39.0-51.0 [facility] Comment on above: Performed By: #### C BCDIF, PT, CMP, NTBNP ####[place] [phone] Hemoglobin mass conc (Bld) 13.0 g/dL Normal 13.0-17.0 [facility] Comment on above: Performed By: #### C BCDIF, PT, CMP, NTBNP ####[place] [phone] MCH Auto Entitic mass (RBC) 29.6 pG Normal 26.0-34.0 [facility] Comment on above: Performed By: #### C BCDIF, PT, CMP, NTBNP ####[address] [phone] MCHC Auto mass conc (RBC) 33.9 g/dL Normal 30.5-36.0 [facility] Comment on above: Performed By: #### C BCDIF, PT, CMP, NTBNP ####[place] [phone] MCV Auto Entitic volume (RBC) 87.5 fL Normal 80.0-100.0 [facility] Comment on above: Performed By: #### C BCDIF, PT, CMP, NTBNP ####[place] [phone] Platelet mean volume Auto Entitic volume (Bld) 10.5 fL Normal 9.0-12.7 [facility] Comment on above: Performed By: #### C BCDIF, PT, CMP, NTBNP ####[place] [phone] Platelets Auto #/vol (Bld) 135 10*3/uL Low 150-400 [facility] Comment on above: Result Comment: Resu lt checked and verifiedNo clot detected. Performed By: #### C BCDIF, PT, CMP, NTBNP ####[address] Av[address] [place] [phone] RBC Auto #/vol (Bld) 4.39 10*6/uL Normal 4.20-6.00 [facility] Comment on above: Performed By: #### C BCDIF, PT, CMP, NTBNP ####[facility] [place], [place] [phone] WBC Auto #/vol (Bld) 7.70 10*3/uL Normal 3.70-11.00 [facility] Comment on above: Performed By: #### C BCDIF, PT, CMP, NTBNP ####[facility] [place], [place] [phone] CNDSon 12-28-2017 CNDS HNO ID: [id number] thor: Ladarius Velazquezervice: Cardiovascular MedicineAuthor Type: PhysicianType: Discharge SummariesFiled: 01/01/2018 8:28 AMNote Text:Department of Cardiovascular MedicineDischarge Summary (Template ID [id number]) Pat ient Name: Florin VargasPatient Date: 12/27/2017Discharge [...] , coronary artery disease [facility]) and severe aortic stenosis,who presents today [...] succinate ER (TOPROL XL) 25 mgComments:Reason for Stopping:Bbcwn-0-GZT-EPA-Fi sh Oil 1,200 (144-216) mg capComments:Reason for Stopping:Outpatient Management:* Are there important medication changes and/or outstanding issues thatneed to be addressed: None* What is the plan for follow up:Future Appointments:Future AppointmentsDate Time Provider Department Center01/12/2018 12:10 PM [id number]-LBJ1-4 MAIN LBJ1-4 CARD J BLD01/12/2018 12:30 PM [id number] MAIN [id number] CARD J BLD01/12/2018 1:00 PM 2579-BHARGAV BECERRIL ([place]) CATHMN TRINH J BLDElectronically SIGNED by Licensed Independent Practitioner: Ken Hinds PA-C Normal [facility] Differential ([facility] LAB USE ON LY)on 12-28-2017 Abs Baso <0.03 Normal <0.11 [facility] Comment on above: Performed By: #### C BCDIF, PT, CMP, NTBNP ####[facility] [address] [place] [address]CE[address], [place] [phone] Abs [place] 0.78 k/uL Normal <0.87 [facility] Comment on above: Performed By: #### C BCDIF, PT, CMP, NTBNP ####[facility] [address] [place] [address]CE[address], [place] [phone] Abs Neut 5.53 k/uL Normal 1.45-7.50 [facility] Comment on above: Performed By: #### C BCDIF, PT, CMP, NTBNP ####[facility] [address] [place] [address]CE[address], [place] [phone] Basophils/100 WBC Auto (Bld) 0.3 % Normal [facility] Comment on above: Performed By: #### C BCDIF, PT, CMP, NTBNP ####[facility] [address]CE[address], [place] [phone] Eosinophils Auto #/vol (Bld) 0.08 10*3/uL Normal <0.46 [facility] Comment on above: Performed By: #### C BCDIF, PT, CMP, NTBNP ####[place] [address] [place] [address] [place] [phone] Eosinophils/100 WBC Auto (Bld) 1.0 % Normal [facility] Comment on above: Performed By: #### C BCDIF, PT, CMP, NTBNP ####[place] [address] [address] [phone] Lymphocytes Auto #/vol (Bld) 1.45 10*3/uL Normal 1.00-4.00 [facility] Comment on above: Performed By: #### C BCDIF, PT, CMP, NTBNP ####[place] [address] [address] [phone] Lymphocytes/100 WBC Auto (Bld) 18.4 % Normal [facility] Comment on above: Performed By: #### C BCDIF, PT, CMP, NTBNP ####[place] [address] [address] [phone] Monocytes/100 WBC Auto (Bld) 9.9 % Normal [facility] Comment on above: Performed By: #### C BCDIF, PT, CMP, NTBNP ####[place] [address] [address] [phone] Neutrophils/100 WBC Auto (Bld) 70.4 % Normal [facility] Comment on above: Performed By: #### C BCDIF, PT, CMP, NTBNP ####[address] AveCVickie Ville [phone] NURSING PROGon 12-28-2017 Protein mass conc HNO ID: [id number] thor: Eli (Rn) Alayna RNService: (none)Author Type: Registered NurseType: Nursing Progress NoteFiled: 12/28/2017 9:38 AMNote Text: Nursing Progress NotePatient Name: Florin VargasMRN: [id number] Location: [place] [id number] Tr ansfer Note:Patient transferred into room/unit J72 bed 8 in stable condition.Actions taken: Oriented pt to room and unit protocols. Dual skin checkperformed with Celena Minor RN. Falls video unavailable at this time. Nofuther actions taken at this time. Will continue to monitor and checkwith patient.This note was completed by: Eli Orellana RN Normal [facility] PROGRESSon 12-28-2017 Protein mass conc HNO ID: [id number] thor: Ken Nguyen) SchraiderService: Cardiovascular MedicineAuthor Type: Physician AssistantType: Progress NotesFiled: 12/29/2017 12:45 PMNote Text: HEART and VASCULAR INSTITUTECARDIOVASCULAR MEDICINE PROGRESS NOTE(Template ID [id number])Florin [id number] SERVICE: Hvi Card InterventionHOSPITAL DAY: # 2INTERVAL [...] s/p CABG 1995 [facility]?([facility]), redo CABG ([facility]) and severe aortic stenosis,for pre-op TAVR [...] Disease) - History of CABG 1995 GRAJEDA-LAD ([facility]), redo CABG (2001 [facility])- Status post successful PCI to the ostial, proximal, and mid-distal RCAwith a 4.0/12 mm Synergy EES, and 4.0/38 mm Synergy EES, and a 3.5/38 mmSynergy EES on 11/22/17.-continue aspirin, plavixLate entry.Pt seen and examined at 1300 12/28/17Case to be discussed with AUSTIN Velarde-CPager [phone] (please see below for after hours communication)12/28/20171300 For communication after 5 pm on weekdays and after 12 pm on weekends,please page the following:- Clinical Cardiology patients on all floors: page [phone]- Other Cardiology patients on J5 and J6: page 36085- Other Cardiology patients on J7 and J8: page [phone] Normal [facility] Protein mass conc HNO ID: [id number] thor: GENE Cobbervice: Cardiovascular MedicineAuthor Type: PhysicianType: [...] x 5 days4. Echo today5. Transfer to [facility]6. Metoprolol on hold while we watch his conduction on telemetryPlease don't hesitate to contact me with any questions or concerns.JOHANA De Leonager: [id number] Cardiology Normal [facility] ANES Rylee 12-27-2017 ANES POST HNO ID: [id number] thor: Elaina Bauer: AnesthesiologyAuthor Type: AnesthesiologistType: Anesthesia PostOpFiled: 12/27/2017 5:36 PMNote Text:CT Anesthesia Postoperative Note: Patient is s/p TAVR under monitoredanesthesia care. He tolerated the procedure uneventfully and wastransferred to the recovery area sleepy but arousable and with noimmediate complaint of pain/nausea/vomiting. BP 117/57, HR 47, RR 14, ZhL9289%, T 36.1, hydration status adequate. There are no adverse anestheticevents to report at present time. Normal [facility] PT EDon 12-27-2017 PT ED HNO ID: [id number] thor: Heidi (Rn) Doehring, RNService: (none)Author Type: Registered NurseType: Patient EducationFiled: 12/27/2017 6:28 AMNote Text:PRE OP LEARNING ASSESSMENTPROCEDURE/SURGERY : TAVRREADINESS TO LEARNCOGNITIVE ABILITY: Alert and orientedMOTIVATION TO LEARN: InterestedFAMILY SUPPORT: High - Very involved in pt carePATIENT LEARNS BEST BY: Multiple MethodsFACTORS AFFECTING LEARNING: NonePHYSICAL LIMITATIONS AFFECTING LEARNING: Sensory Deficit Sight: CorrectivelensesElectronica lly Signed By: Heidi Murdock RN In Department: [id number] Normal [facility] CBC and Differentialon 12-26 Abs Baso <0.03 Normal <0.11 [facility] Comment on above: Performed By: #### C BCDIF, PT, CMP, NTBNP ####[facility] [place] AveCVick[address] [place] [phone] Abs [place] 0.49 k/uL Normal <0.87 [facility] Comment on above: Performed By: #### C BCDIF, PT, CMP, NTBNP ####[facility] [address] AveCVickie [place] [phone] Abs Neut 3.04 k/uL Normal 1.45-7.50 [facility] Comment on above: Performed By: #### C BCDIF, PT, CMP, NTBNP ####[facility] [address] AveCVickie [place]ille [phone] Absolute nRBC <0.01 Normal <0.01 [facility] Comment on above: Performed By: #### C BCDIF, PT, CMP, NTBNP ####[facility] [address] [place] AveCVickie [place] [phone] Basophils/100 WBC Auto (Bld) 0.3 % Normal [facility] Comment on above: Performed By: #### C BCDIF, PT, CMP, NTBNP ####[facility] [place] AveCV[address] [place] [phone] DTYPE Auto Diff Normal [facility] Comment on above: Performed By: #### C BCDIF, PT, CMP, NTBNP ####[place] [address] [address] [place] [phone] Eosinophils Auto #/vol (Bld) 0.13 10*3/uL Normal <0.46 [facility] Comment on above: Performed By: #### C BCDIF, PT, CMP, NTBNP ####[place] [address] [place] [address] [place] [phone] Eosinophils/100 WBC Auto (Bld) 2.1 % Normal [facility] Comment on above: Performed By: #### C BCDIF, PT, CMP, NTBNP ####[place] [address] [address] [place] [phone] Erythrocyte distribution width Auto Ratio (RBC) 14.0 % Normal 11.5-15.0 [facility] Comment on above: Performed By: #### C BCDIF, PT, CMP, NTBNP ####[place] [address] [address] [place] [phone] Hematocrit Auto Volume Fraction (Bld) 42.4 % Normal 39.0-51.0 [facility] Comment on above: Performed By: #### C BCDIF, PT, CMP, NTBNP ####[place] [address] [address] [place] [phone] Hemoglobin mass conc (Bld) 13.7 g/dL Normal 13.0-17.0 [facility] Comment on above: Performed By: #### C BCDIF, PT, CMP, NTBNP ####[place] [address] [address] [place] [phone] Lymphocytes Auto #/vol (Bld) 2.35 10*3/uL Normal 1.00-4.00 [facility] Comment on above: Performed By: #### C BCDIF, PT, CMP, NTBNP ####[place] [address] [address] [place] [phone] Lymphocytes/100 WBC Auto (Bld) 38.8 % Normal [facility] Comment on above: Performed By: #### C BCDIF, PT, CMP, NTBNP ####[address] AveCVickie [address] [phone] MCH Auto Entitic mass (RBC) 29.5 pG Normal 26.0-34.0 [facility] Comment on above: Performed By: #### C BCDIF, PT, CMP, NTBNP ####[address] AveCVickie [place] [phone] MCHC Auto mass conc (RBC) 32.3 g/dL Normal 30.5-36.0 [facility] Comment on above: Performed By: #### C BCDIF, PT, CMP, NTBNP ####[address] [place]ille [phone] MCV Auto Entitic volume (RBC) 91.4 fL Normal 80.0-100.0 [facility] Comment on above: Performed By: #### C BCDIF, PT, CMP, NTBNP ####[place] [address] [address] [phone] Monocytes/100 WBC Auto (Bld) 8.1 % Normal [facility] Comment on above: Performed By: #### C BCDIF, PT, CMP, NTBNP ####[address] AveCVickie [place] [phone] Neutrophils/100 WBC Auto (Bld) 50.7 % Normal [facility] Comment on above: Performed By: #### C BCDIF, PT, CMP, NTBNP ####[place] [address] [address] [place] [phone] NRBCs 0.0 /100 WBC Normal 0 [facility] Comment on above: Performed By: #### C BCDIF, PT, CMP, NTBNP ####[facility] [place] [address], [place] [phone] Platelet mean volume Auto Entitic volume (Bld) 10.8 fL Normal 9.0-12.7 [facility] Comment on above: Performed By: #### C BCDIF, PT, CMP, NTBNP ####[facility] [place], [place] [phone] Platelets Auto #/vol (Bld) 173 10*3/uL Normal 150-400 [facility] Comment on above: Performed By: #### C BCDIF, PT, CMP, NTBNP ####[address] [place], [place] [phone] RBC Auto #/vol (Bld) 4.64 10*6/uL Normal 4.20-6.00 [facility] Comment on above: Performed By: #### C BCDIF, PT, CMP, NTBNP ####[address] [place], [place] [phone] WBC Auto #/vol (Bld) 6.05 10*3/uL Normal 3.70-11.00 [facility] Comment on above: Performed By: #### C BCDIF, PT, CMP, NTBNP ####[facility] [place], [place] [phone] CNOVon 12-26-2017 CNOV Office Visit (CARTMN) -------FLORIN VARGAS ([id number]) 1940 MDate Time Provider Department12/26/17 3:30 PM ANESTHESIA CLEARANCE CARTMN During your visit today, we recorded the following information about you:Jose Cruz Mendez DO 12/26/2017 12:38 PM SignedANESTHESIOLOGY [...] hypertension, hyperlipidemia, coronary artery disease s/pCABG 1995 GRAJEDA-LAD?([facility]), redo CABG ([facility]) and severe aorticstenosis, who presents today for pre-op TAVR. Pt also had PCI w/ ENE x 3 to [facility] in 11/2017.PAST MEDICAL HISTORYDiagnosis Date- Aortic stenosis- [...] demonstrated severedisease at the ostium. We then aaethfd-rza-nvqxqqc with a 4.0/20 mm NC at 16-18atm [...] EC tablet Take 81 mg bymouth once daily.Kdeuk-7-JSM-EPA-Fish Oil 1,200 (144-216) mg cap Take by [...] [I35.0]Order(s):PREOP RED BLOOD CELLS [SQPRERC] Order #: [id number] as of 12/26/2017 Sig: ISOSORBIDE MONONITRATE ER 30 * Take 1 tablet by mouth once d* METOPROLOL SUCCINATE ER 50 MG* Take 25 mg by mouth once angeles* ASPIRIN 81 MG TABLET,DELAYED * Take 81 mg by mouth once angeles* OMEGA 8-VPN-YLI-FISH OIL 1,20* Take by mouth twice daily. CLOPIDOGREL 75 MG TABLET Take 75 mg by mouth once angeles*Problem List As Of Date 12/26/2017 Noted Resolved CAD (coronary artery disease) [I25.10] More... Aortic stenosis [I35.0] More... Status:Closed by JOSE CRUZ MENDEZ DO on 12/26/17 Normal [facility] CNOV Office Visit (CATHMN) -------FLORIN VARGAS ([id number]) 1940 MDate Time Provider Department12/26/17 11:00 AM BHARGAV BECERRIL ([place]) CATHMN During your visit today, we recorded the following information about you: Pulse Blood pressure Weight Height 56/minute 140/64 83 kg 1.676 mLisa LEXUS Becerril 12/26/2017 4:50 PM [facility] [place] [facility] Department of Cardiovascular MedicineSECTION OF INTERVENTIONAL CARDIOLOGYOUTPATIENT VISIT DATE December 26, 2017OUTPATIENT VISIT TYPEESTABLISHEDPRIMARY CARE PHYSICIAN:Pedro Gonzalez MD ([facility])[address] [place] [address]Xlpsk: [phone]: [phone] COMPLAINT:Patient presents with:Valvular Heart DiseaseHISTORY OF PRESENT ILLNESS:Mr. Vargas is a 77 year old male with a history of hypertension,hyperlipidemia , coronary artery disease s/p CABG 1995 GRAJEDA-LAD ([facility]),redo CABG (2001 [facility]) and severe aortic stenosis,who presents today for pre-op TAVR with Dr. Cancino 12/27/17.He was doing well since his his last CABG in 2001. In the last 6 months he hashad symptoms of SOB and chest pain which prompted a stress test evaluation.Given these symtpoms, a stress test in July 2017 could not necessarily ruleout NM ischemia.?He had a stress test in July [...] EC tablet Take 81 mg bymouth once daily.Feetc-3-TTB-EPA-Fish Oil 1,200 (144-216) mg cap Take by [...] 1.00 - 4.00 k/uL 2.35Mono% % 8.1Abs [place] <0.87 k/uL 0.49Eosin% % 2.1Abs Eosin <0.46 [...] coronary artery disease s/p CABG 1995 GRAJEDA-LAD ([facility]),redo CABG (2001 [facility]) and severe aortic stenosis,who presents today [...] 22 mmHg andthe dimensionless valve index is 0.23.[facility] IIBNP: 2509- Continue aspirin, Plavix, MetoprololTF TAVR 12/27/17, Pre-op instructions provided, instructed to arrive at 6:15 am,Consent obtained by Fellow.(I25.10) Coronary artery disease involving big sandy coronary artery of nativeheart without angina pectoris- History of CABG 1995 GRAJEDA-LAD ([facility]), redo CABG (2001 [facility])- Status post successful PCI to the [...] with more than 50% of the total wgkm-ix-aswovffx of the visit in counseling / coordination of care.AUSTIN Joel-CReferring Provider: FAROOQ VILLA [953]Allergies As of Date: 12/26/2017(No Known Allergies)Date Reviewed: 12/26/2017Reviewed by: Bhargav Becerril (Pa) - Fully AssessedReason for Visit: Valvular Heart Disease [169]Primary Visit Diagnosis:Nonrheumatic aortic valve stenosis [I35.0] Other Visit Diagnoses:Coronary artery disease involving big sandy coronary artery of big sandy heart without angina pectoris [I25.10] Essential hypertension [I10] Hyperlipidemia, unspecified hyperlipidemia type [E78.5]Prescriptions as of 12/26/2017 Sig: METOPROLOL SUCCINATE ER 50 MG* Take 25 mg by mouth once angeles* ASPIRIN 81 MG TABLET,DELAYED * Take 81 mg by mouth once angeles* OMEGA 3-CNO-WDO-FISH OIL 1,20* Take by mouth twice daily. [...] Dr. Cancino.Follow-up and Disposition History RecordedEncounter Number: [id number] Status:Closed by BHARGAV BECERRIL PA-C on 12/26/17 Normal [facility] Comp Metabolic Panelon 12-26 Albumin mass conc 4.0 g/dL Normal 3.9-4.9 [facility] Comment on above: Performed By: #### C BCDIF, PT, CMP, NTBNP ####[address] [phone] ALP enzyme act/vol 81 U/L Normal 36-108 [facility] Comment on above: Performed By: #### C BCDIF, PT, CMP, NTBNP ####[address] [phone] ALT enzyme act/vol 14 U/L Normal 10-54 [facility] Comment on above: Performed By: #### C BCDIF, PT, CMP, NTBNP ####[address] [phone] Anion gap 3 molar conc 11 mmol/L Normal 9-18 [facility] Comment on above: Performed By: #### C BCDIF, PT, CMP, NTBNP ####[address] [phone] AST enzyme act/vol 21 U/L Normal 14-40 [facility] Comment on above: Performed By: #### C BCDIF, PT, CMP, NTBNP ####[place] [address] [place] AveCVickie V[place] [phone] Bilirubin mass conc 0.8 mg/dL Normal 0.2-1.3 [facility] Comment on above: Performed By: #### C BCDIF, PT, CMP, NTBNP ####[place] [address] [address] AveCRenee V[place] [phone] Calcium mass conc 9.4 mg/dL Normal 8.5-10.2 [facility] Comment on above: Performed By: #### C BCDIF, PT, CMP, NTBNP ####[address] Av[address] [place] [phone] Chloride molar conc 103 mmol/L Normal 97-105 [facility] Comment on above: Performed By: #### C BCDIF, PT, CMP, NTBNP ####[place] [address] [address] Av[address] [place] [phone] CO2 molar conc 25 mmol/L Normal 22-30 [facility] Comment on above: Performed By: #### C BCDIF, PT, CMP, NTBNP ####[place] [address] [phone] Creatinine mass conc 1.01 mg/dL Normal 0.73-1.22 [facility] Comment on above: Performed By: #### C BCDIF, PT, CMP, NTBNP ####[place] [address] [address]CRonald [place] [phone] eGFR- Amer. >60 Normal [facility] Comment on above: Performed By: #### C BCDIF, PT, CMP, NTBNP ####[place] [address] [address] [place] [phone] GFR/1.73 sq M predicted among non-blacks MDRD vol rate/area (S/P/Bld) mL/min/{1.73_m2} Normal [facility] Comment on above: Result Comment: eGFR [...] By: #### C BCDIF, PT, CMP, NTBNP ####[facility] [place], [place] [phone] Glucose mass conc 91 mg/dL Normal 74-99 [facility] Comment on above: Result Comment: The [place] Diabetes Association (ADA) provides guidance for cutoff [...] Standards of Medical Care in Diabetes 2016, [place] Diabetes Association. Diabetes Care. 2016.39(Suppl 1). Performed By: #### C BCDIF, PT, CMP, NTBNP ####[facility] [address] [place], [place] [phone] Potassium molar conc 5.7 mmol/L High 3.7-5.1 [facility] Comment on above: Performed By: #### C BCDIF, PT, CMP, NTBNP ####[facility] AveCE[address], [place] [phone] Protein mass conc 7.3 g/dL Normal 6.3-8.0 [facility] Comment on above: Performed By: #### C BCDIF, PT, CMP, NTBNP ####[facility] [place], [place] [phone] Sodium molar conc 139 mmol/L Normal 136-144 [facility] Comment on above: Performed By: #### C BCDIF, PT, CMP, NTBNP ####[facility] [place] [address], [place] [phone] Urea nitrogen mass conc 20 mg/dL Normal 9-24 [facility] Comment on above: Performed By: #### C BCDIF, PT, CMP, NTBNP ####[address] [phone] Confirm Blood Typeon 018 ABO/RH(D) Positive Normal [facility] Comment on above: Performed By: #### C BCDIF, PT, CMP, NTBNP ####[place] [phone] [place], [place] [phone] NT Pro BNPon 12-26-2017 Protein mass conc 2509 pg/mL High <450 [facility] Comment on above: Performed By: #### C BCDIF, PT, CMP, NTBNP ####[facility] [place] [address] [phone] PROGRESSon 12-26-2017 Protein mass conc HNO ID: [id number] thor: Jose Cruz Alves (Fel): (none)Author Type: [...] hypertension, hyperlipidemia, coronary artery diseases/p CABG 1995 [facility]ED[facility]LAD[facility] ([facility]) and severeaortic stenosis, who presents today [...] This demonstratedseveredisease at the ostium. We then qsumzms-htc-pcnyvsa with a 4.0/20 mm NC vn38-96hfs for several overlapping inflations. We then stented [...] EC tablet Take 81mg by mouth once daily.Spken-6-NNH-EPA-Fish Oil 1,200 (144-216) mg cap Take by [...] 2017 : 12:15 PM PAGER/CONTACT #: Normal [facility] Protein mass conc HNO ID: [id number] thor: Odell Anglin: (none)Author Type: (none)Type: Progress NotesFiled: 12/26/2017 9:51 AMNote Text: Radiology Service Progress NotePATIENT NAME: Florin VargasMRN: [id number] OF SERVICE: December 26, 2017TIME: 9:51 AMPATIENT IDENTITY VERIFICATION COMPLETED USING TWO (2) METHODS: Patientconfirmed name verbally and Date of .PATIENT GENDER DATA: MalePATIENT RELEVANT IMPLANT DATA REVIEWED: YesRADIOLOGY DEPARTMENT: General X-ray: Exam(s) Completed: Chest X-RayPERIPHERAL IV DATA: Not applicableSIGNED BY: Duane Liang RtMa2017 9:51 AM Normal [facility] Protein mass conc HNO ID: [id number] thor: Bhargav Nguyen) ReeseoneService: (none)Author Type: Physician AssistantType: Progress NotesFiled: 12/26/2017 4:50 PMNote Text:Heart and Vascular InstituteMarciano and Ashley Lay Department of Cardiovascular MedicineSECTION OF INTERVENTIONAL CARDIOLOGYOUTPATIENT VISIT DATE December 26, 2017OUTPATIENT VISIT TYPEESTABLISHEDPRCONE HEALTH ANNIE PENN HOSPITALRY CARE PHYSICIAN:Pedro Gonzalez MD ([facility])[address] [place] [address] 114[address]Qjcfm: [phone]: [phone] COMPLAINT:Patient presents with:Valvular Heart DiseaseHISTORY OF PRESENT [...] in July 2017 could not necessarilyrule out NM ischemia.?He had a stress test in July [...] EC tablet Take 81mg by mouth once daily.Ssscj-4-XKE-EPA-Fish Oil 1,200 (144-216) mg cap Take by [...] 1.00 - 4.00 k/uL 2.35Mono% % 8.1Abs [place] <0.87 k/uL 0.49Eosin% % 2.1Abs Eosin <0.46 [...] is 22mmHg andthe dimensionless valve index is 0.23.[facility] IIBNP: 2509- Continue aspirin, Plavix, MetoprololTF TAVR 12/27/17, Pre-op instructions provided, instructed to arrive at6:15 am, Consent obtained by Fellow.(I25.10) Coronary artery disease involving big sandy coronary artery ofnative heart without angina pectoris- [...] visit, with more than 50% of the sdjfyijyb-dm-pxni time of the visit in counseling / coordination of care.Bhargav Becerril PA-C Normal [facility] Type and SCR (30D)on 018 ABO/RH(D) Positive Normal [facility] Comment on above: Performed By: #### C BCDIF, PT, CMP, NTBNP ####[facility] [address] [place], [place] [phone] Antibody Screen Negative Normal [facility] Comment on above: Performed By: #### C BCDIF, PT, CMP, NTBNP ####[facility] [address] [place], [place] [phone] XR CHEST 2V FRONTAL/LATon XR CHEST 2V [...] right sided coronary artery stent/stents. Status post CABG.Office Clin Asst: JOSE ARMANDO Transcribe Date/Time: Dec 26 2017 2:53PDictated by : GADIEL TERRELL MDThis examination was interpreted and the report reviewed and electronically signed by: GADIEL TERRELL MD on Dec 26 2017 2:57PM [id number] Normal [facility] CNPNon 12-22-2017 CNPN Telephone (CATHMN) -------TIAN,JONAS E ([id number]) 1940 MDate Time Provider Department12/22/17 MELODIE GUZMAN ([facility]) CATHMN During your visit today, we recorded the following information about you:Melodie Guzman ([facility]) 12/22/2017 11:17 AM SignedCalled the Florin Vargas home number to discuss a TAVR procedure date fornext week. No answer. VMX left to call back.Melodie Guzman ([facility]) 12/22/2017 1:38 PM SignedReceived returned call from Mrs Florin Vargas. Offered TAVR proceduredate 12/27/17 (pre op 12/26/17). She and her wish to proceed withscheduling.Request has been sent to the time analysis clerk to arrange an appointment schedule.Patient is edentulous.Medication [...] 81 mg by mouth once angeles* OMEGA 5-UZA-QJQ-FISH OIL 1,20* Take by mouth twice daily. CLOPIDOGREL 75 MG TABLET Take 75 mg by mouth once angeles*Problem List As Of Date 12/22/2017 Noted Resolved CAD (coronary artery disease) [I25.10] Aortic stenosis [I35.0] Status:Closed by MELODIE BROWN RN on 12/22/17 [facility] 12-22-2017 HOSP Patient:Florin Vargas EMRN: Height:5' 6(1.676 m)Weight:183 lb (83.008 kg)Outpatient Medications as of 12/27/17:isosorbide mononitrate ER (IMDUR) 30 mg 24 hr tabletmetoprolol succinate ER (TOPROL XL) 50 mg 24 hr tabletaspirin, enteric coated (ASPIRIN, ENTERIC COATED) 81 mg EC wgrbzmYixhx-2-QOM-EPA-Fish Oil 1,200 (144-216) mg capclopidogrel (PLAVIX) 75 mg tabletAdmission/Clinic Administered Medications as of 12/27/17:Patient has no admission medications.Problem List:CAD (coronary artery disease) [I25.10]Aortic stenosis [I35.0]Allergies:No Known AllergiesDate Verified:12/27/17Lab ValuesLab Value Units Date High LowPOTA* 5.7 mmol/L 12/26/2017 5.1 3.7HEMA* 42.4 % 12/26/2017 51.0 39.0Progress Notes ([facility]IO GEN MAIN J):Duane Liang Rt 12/26/2017 9:51 AM Signed Radiology Service Progress NotePATIENT NAME: Florin VargasMRN: [id number] OF SERVICE: December 26, 2017TIME: 9:51 AMPATIENT IDENTITY VERIFICATION COMPLETED USING TWO (2) METHODS: Patientconfirmed name verbally and Date of .PATIENT GENDER DATA: MalePATIENT RELEVANT IMPLANT DATA REVIEWED: YesRADIOLOGY DEPARTMENT: General X-ray: Exam(s) Completed: Chest X-RayPERIPHERAL IV DATA: Not applicableSIGNED BY: Duane Liang RtMa2017 9:51 AMProgress Notes ([facility]):Jose Cruz Mendez DO 12/26/2017 [...] of hypertension, hyperlipidemia, coronary artery disease s/p [id number] GRAJEDA-LAD?([facility]), redo CABG ([facility]) and severe aorticstenosis, who presents today for pre-op TAVR. Pt also had PCI w/ ENE x 3 to [facility] in 11/2017.PAST MEDICAL HISTORYDiagnosis Date- Aortic stenosis- [...] demonstrated severedisease at the ostium. We then vosoejw-obp-xhhkwmv with a 4.0/20 mm NC at 16-18atm [...] EC tablet Take 81 mg bymouth once daily.Mkhdw-2-HNP-EPA-Fish Oil 1,200 (144-216) mg cap Take by [...] 2017 : 12:15 PM PAGER/CONTACT #: Jonel [facility] Wolfgang 12-21-2017 CN Office Visit (TOMASA) -------TIAN,JONAS E ([id number]) 1940 MDate Time Provider Department12/21/17 12:15 PM LADARIUS CANCINO During your visit today, we recorded the following information about you: Pulse Respiration Blood pressure Weight 55/minute 14/minute 120/61 84.6 kg Height 1.676 Kavita Cancino MD 12/27/2017 6:03 PM [facility] InstituteCrookston Jeronimo Lay Department of Cardiovascular MedicineSECTION OF INTERVENTIONAL CARDIOLOGYOUTPATIENT VISIT DATE December 21, 2017OUTPATIENT VISIT TYPEESTABLISHEDPRIMARY CARE PHYSICIAN:Pedro Gonzalez MD ([facility])[address] [place] [address]Ovyna: [phone]: [phone] COMPLAINT:Patient presents with:Hospital F/U: Nonrheumatic aortic valve [...] EC tablet Take 81 mg bymouth once daily.Yydhk-4-WSB-EPA-Fish Oil 1,200 (144-216) mg cap Take by [...] sincerely,Wilton Cancino M.D.CONTACT INFORMATION:Referring Provider: LADARIUS CANCINO [[id number]]Allergies As of Date: 12/21/2017(No Known Allergies)Date Reviewed: 12/21/2017Reviewed by: Octavia Alexander) BETTINA Guerrero - Fully AssessedReason for Visit: Hospital F/U [57] Cmt: Nonrheumatic aortic valve stenosisPrimary Visit Diagnosis:Aortic valve disorder [I35.9] Other Visit Diagnosis:Nonrheumatic aortic valve stenosis [I35.0]Order(s):ECG COMPLETE W INTERPRETATION [ECG01] Order #: [id number] FUTURE XR CHEST 2V FRONTAL/LAT [3237666] Order #: [id number] FUTURE ECHO TRANSESOPHAGEAL [[id number]] Order #: [id number]: 1 FUTURE TYPE + SCREEN,30 DAY [TMRYES06] Order #: [id number] FUTURE NT PRO BNP [SQNTBNP] Order #: [id number] FUTURE CBC + DIFF [SQCBCDIF] Order #: [id number] FUTURE COMP METABOLIC PANEL [SQCMP] Order #: [id number] FUTURE CONFIRM BLOOD TYPE [SQCONABO] Order #: [id number] FUTUREPrescriptions as of 12/21/2017 Sig: METOPROLOL SUCCINATE ER 50 MG* Take 25 mg by mouth once angeles* ASPIRIN 81 MG TABLET,DELAYED * Take 81 mg by mouth once angeles* OMEGA 2-VGO-OLE-FISH OIL 1,20* Take by mouth twice daily. [...] care Disc: Course of therapy completedEncounter Number: [id number] Status:Closed by LADARIUS CANCINO on 12/27/17 Normal [facility] PROGRESSon 12-21-2017 Protein mass conc HNO ID: [id number] thor: Ladarius Velazquezervice: (none)Author Type: PhysicianType: Progress NotesFiled: 12/27/2017 6:03 PMNote Text:[facility] and Vascular InstituteCrookston and Ashley Lay Department of Cardiovascular MedicineSECTION OF INTERVENTIONAL CARDIOLOGYOUTPATIENT VISIT DATE December 21, 2017OUTPATIENT VISIT TYPEESTABLISHEDPRIMARY CARE PHYSICIAN:Pedro Gonzalez MD ([facility])[address] [place] [address] 37[address]Dfwsg: [phone]: [phone] COMPLAINT:Patient presents with:Hospital F/U: Nonrheumatic aortic valve [...] EC tablet Take 81mg by mouth once daily.Icjwe-0-WAQ-EPA-Fish Oil 1,200 (144-216) mg cap Take by [...] plan to move forward in coming weeks. Nanyc discussed the relative risks and benefits of the procedure to whichhe and his family are agreeable.Yours sincerely,Wilton Cancino M.D.CONTACT INFORMATION: Normal [facility] CNCOon 11-29-2017 CNCO Letter TextApril 2017Florin Vargas[address] [facility] [address]Umtr Mr. Vargas,The nurses and staff [facility] hope thisletter finds you feeling well and [...] free to contact me, Wisam Harmon RN [phone] or e-mail [email or web address].Additionall y, you will receive a survey in the mail asking you to rate thecare you received while in the hospital. Please take the time to completeand send back the survey. I personally review all the results and wouldappreciate your feedback. Please consider completing this survey for eachindividual visit.Thank you in advance for your participation and thank you [facility].Sincerely,Wisam Harmon RNNurse ManagerJ7-2 Cardiology Step-down Unit Normal [facility] Basic Metabolic Panlon 11-23 Anion gap 3 molar conc 12 mmol/L Normal 9-18 [facility] Comment on above: Performed By: #### C BCDIF, PT, CMP, NTBNP ####[place] [phone] Calcium mass conc 8.7 mg/dL Normal 8.5-10.2 [facility] Comment on above: Performed By: #### C BCDIF, PT, CMP, NTBNP ####[place] [phone] Chloride molar conc 101 mmol/L Normal 97-105 [facility] Comment on above: Performed By: #### C BCDIF, PT, CMP, NTBNP ####[place] [phone] CO2 molar conc 24 mmol/L Normal 22-30 [facility] Comment on above: Performed By: #### C BCDIF, PT, CMP, NTBNP ####[place] [address] [place] [address] [phone] Creatinine mass conc 0.97 mg/dL Normal 0.73-1.22 [facility] Comment on above: Performed By: #### C BCDIF, PT, CMP, NTBNP ####[address] Av[address] [place] [phone] eGFR- Amer. >60 Normal [facility] Comment on above: Performed By: #### C BCDIF, PT, CMP, NTBNP ####[facility] [place], [place] [phone] GFR/1.73 sq M predicted among non-blacks MDRD vol rate/area (S/P/Bld) mL/min/{1.73_m2} Normal [facility] Comment on above: Result Comment: eGFR [...] By: #### C BCDIF, PT, RIOS, NTBNP ####[facility] [place], [place] [phone] Glucose mass conc 140 mg/dL High 74-99 [facility] Comment on above: Result Comment: The [place] Diabetes Association (ADA) provides guidance for cutoff [...] Standards of Medical Care in Diabetes 2016, [place] Diabetes Association. Diabetes Care. 2016.39(Suppl 1). Performed By: #### C BCDIF, PT, CMP, NTBNP ####[facility] [place], [place] [phone] Potassium molar conc 3.9 mmol/L Normal 3.7-5.1 [facility] Comment on above: Performed By: #### C BCDIF, PT, CMP, NTBNP ####[facility] [address] AveCE[address], [place] [phone] Sodium molar conc 137 mmol/L Normal 136-144 [facility] Comment on above: Performed By: #### C BCDIF, PT, CMP, NTBNP ####[facility] [address] [place], [place] [phone] Urea nitrogen mass conc 20 mg/dL Normal 9-24 [facility] Comment on above: Performed By: #### C BCDIF, PT, CMP, NTBNP ####[facility] [address] [place], [place] [phone] CASE MGT INIT ASSESon [address] [facility] HNO ID: [id number] thor: SHARON Tellez Rnervice: Care ManagementAuthor Type: [...] 23, 2017 : 9:12 AM PAGER/CONTACT #: [phone] Normal [facility] PROCEDUREon 11-23-2017 Protein mass conc HNO ID: [id number] thor: Pratik Payton) PatelService: Interventional CardiologyAuthor Type: FellowType: ProceduresFiled: 11/22/2017 11:27 PMNote Text: INTERVENTIONAL CARDIOLOGY Procedure Note?Florin VargasMRN: [id number]: November 22, 2017Attending: Dr CancinoInterventional Fellow: Pratik [...] demonstrated severe disease at the ostium. We urykwcrxzvr-jol-wosrifh with a 4.0/20 mm NC at 16-18 [...] me with questions.Justin Franco MDInterventional Cardiology FellowPager: [phone] 2017 11:01 PM Normal [facility] PROGRESSon 11-23-2017 Protein mass conc HNO ID: [id number] thor: Pratik Payton) PatelService: Interventional CardiologyAuthor Type: [...] cap Take 1 capsule by mouth once daily.Fwirh-7-SRN-EPA-Fish Oil 1,200 (144-216) mg cap Take by [...] and Weight controlPratik Franco MDInterventional Cardiology FellowPager: [phone] 20178:57 AM Normal [facility] Zaire 11-14-2017 CNPN Telephone (CATHMN) -------FLORIN VARGAS ([id number]) 1940 MDate Time Provider Department11/14/17 MELODIE GUZMAN (LISA) CATHMN During your visit today, we recorded the following information about you:Melodie Guzman RN CONTACT ACID PLANT OPERATOR.CLOD PULLER 11/14/2017 4:47 PM SignedAttempt made to speak with patient and review the valve team's recommendationfor PCI. No answer. VMX left.Request has been sent to the time analysis clerk to arrange a PCI procedure appointment.Horacio Boyd [facility] 11/15/2017 8:39 AM SignedPatient returned phone call and is waiting near the phone. Call as soon as youget in. Per the patient.[phone] Guzman RN CONTACT ACID PLANT OPERATOR.CLOD PULLER 11/16/2017 1:46 PM SignedSpoke with Mrs. Florin [...] 1 capsule by mouth once * OMEGA 4-UEA-XJJ-FISH OIL 1,20* Take by mouth twice daily. CLOPIDOGREL 75 MG TABLET Take 75 mg by mouth once angeles* MINERALS ORAL Take by mouth once daily. Barbara* OTC PRODUCT 1 tablet three times daily. N*Problem List As Of Date 11/14/2017 Noted Resolved CAD (coronary artery disease) [I25.10] Aortic stenosis [I35.0] Status:Closed by MELODIE BROWN RN on 11/14/17 [facility] 11-13-2017 HOSP Patient Update (CATHMN) -------FLORIN VARGAS ([id number]) 1940 MDate Time Provider Department11/13/17 MELODIE GUZMAN ([facility]ULLER) CATHMN During your visit today, we recorded the following information about you:Melodie Guzman RN CONTACT ACID PLANT OPERATOR.[facility] 11/13/2017 9:26 AM SignedMULTI DISCIPLINARY HIGH RISK AVR CARDIAC TEAMMembers present: Dr. Villa, Dr. Eid, Dr. Cancino, Dr. Paiz, , ,Dr. Diana, Dr. Vargas, Dr. Herrera, Dr Alfaro, Mingo GONZALEZ, Van RNPresenting Physician: Dr CancinoPATIENT NAME: Florin VargasMRN: [id number]: November 13, 2017Outcome: Florin Vargas 's history and imaging were reviewed by thephysicians in attendance.Coronary angiogram reviewed. + anginaThe collaborative recommendation would be needs PCI RCA with Dr CancinoThese recommendations will be communicated to the patient by our office.Procedure scheduling will be handled by CVM time analysis clerk.Melodie Guzman RN CNSAllergies As of Date: 11/13/2017(No [...] 1 capsule by mouth once * OMEGA 9-NKX-SHW-FISH OIL 1,20* Take by mouth twice daily. CLOPIDOGREL 75 MG TABLET Take 75 mg by mouth once angeles* MINERALS ORAL Take by mouth once daily. Babrara* OTC PRODUCT 1 tablet three times daily. N*Problem List As Of Date 11/13/2017 Noted Resolved CAD (coronary artery disease) [I25.10] Aortic stenosis [I35.0] Status:Closed by TARIK GONZALEZ, MELODIE Driver on 11/13/17 Normal [facility] PROGRESSon 11-13-2017 Protein mass conc HNO ID: [id number] thor: Melodie Driver (Lisa) TarikService: (none)Author Type: Nurse SpecialistType: Progress NotesFiled: 11/13/2017 9:26 AMNote Text:MULTI DISCIPLINARY HIGH RISK AVR CARDIAC TEAMMembers present: Dr. Villa, Dr. Eid, Dr. Cancino, Dr. Paiz,Dr. Pedersen, ,Dr. Diana, Dr. Vargas, Dr. Herrera, Dr Alfaro, Barry, Alex Khan RNPresenting Physician: Dr CancinoPATIENT NAME: Florin VargasMRN: [id number]: November 13, 2017Outcome: Florin Vargas 's history and imaging were reviewed by thephysicians in attendance.Coronary angiogram reviewed. + anginaThe collaborative recommendation would be needs PCI RCA with Dr CancinoThese recommendations will be communicated to the patient by our office.Procedure scheduling will be handled by CVM time analysis clerk.SEBASTIAN Lindsey Normal [facility] PROGRESSon 11-11-2017 Protein mass conc HNO ID: [id number] thor: Rachael SmythiSerfelibertoe: (none)Author Type: PhysicianType: Progress NotesFiled: 11/11/2017 2:23 AMNote Text:CHART COPY DO NOT DISCARDPatient Type:ConsultVisit to determine Surgery:YesPCP:Pedro Gonzalez MD ([facility])[address] [place] [address]2666Ghbvq: [phone]: [phone] Physician::Ladarius Cancino MD[address] [facility]AND [place] [id number]: Mr. Florin Vargas is a 77 year [...] be communicated back to the requesting physician viahealthsouth lake[facility] hospitalic medical recordSnithin Pedersen MD [facility] CNOVon 11-10-2017 CNOV Office Visit (CATHMN) -------FLORIN VARGAS ([id number]) 1940 MDate Time Provider Department11/10/17 2:00 PM VANESSA COLVIN ([facility]) CATHMN During your visit today, we recorded the following information about you: Weight Height 80.7 kg 1.778 Jacque Colvin RN CONTACT ACID PLANT OPERATOR.CLOD PULLER 11/10/2017 3:26 PM [facility] and Vascular InstituteRobshiprock-northern [facility] medical centerb and Ashley Lay Department of Cardiovascular MedicineSECTION OF INTERVENTIONAL CARDIOLOGYOUTPATIENT VISIT DATE November 10, 2017OUTPATIENT VISIT TYPEESTABLISHEDPRIMARY CARE PHYSICIAN:Pedro Gonzalez MD ([facility])[address] [place] [address]Blasa: [phone]: [phone] COMPLAINT:Patient presents with:Aortic StenosisHISTORY OF PRESENT ILLNESS:Mr. [...] cap Take 1 capsule by mouth once daily.Dehwv-9-LOZ-EPA-Fish Oil 1,200 (144-216) mg cap Take by [...] Activities of Daily Living:ActivitiesPoints (1 or 0) [place]:(1 Point)No supervision, direction or personal assistance Dependence:(0 [...] 2+CTA 11/03/17:aortic annulus: 2.2 x 3.0Area: 4.8 xq5Rdlapctqjacbc: 8.0MLD= 8 mmIMPRESSION:Mr. Vargas is a 77 year old male with severe aortic valve stenosis andangina, NYHA FC III.PLAN AND RECOMMENDATIONS:I have spoken with Florin Vargas regarding the evaluation process for HRAVR. I reviewed the commercially available [employer]esciences valve,including the valve model. I showed the animation of the TF procedure whileexplaining the procedure. I also reviewed the use of the [place] device. Wediscussed pre-op planning which includes the [...] be notified of the recommendations.Vanessa Colvin RN CONTACT ACID PLANT OPERATOR.CNSI spent 20- minutes in this visit, with more than 50% of the time devoted topatient counseling.Referring Provider: LADARIUS CANCINO [[id number]]Allergies As of Date: 11/10/2017(No Known Allergies)Date Reviewed: 11/03/2017Reviewed by: Tonja Lee) SEBASTIAN Watkins - Fully AssessedReason for Visit: Aortic Stenosis [614]Visit Diagnoses:Coronary artery disease involving big sandy coronary artery of big sandy heart with angina pectoris with documented spasm [...] 1 capsule by mouth once * OMEGA 5-LLP-BBX-FISH OIL 1,20* Take by mouth twice daily. CLOPIDOGREL 75 MG TABLET Take 75 mg by mouth once angeles* MINERALS ORAL Take by mouth once daily. Barbara* OTC PRODUCT 1 tablet three times daily. N*Problem List As Of Date 11/10/2017 Noted Resolved CAD (coronary artery disease) [I25.10] Aortic stenosis [I35.0]Disposition: Return for scheduled.Follow-up and Disposition History RecordedEncounter Number: [id number] Status:Closed by HELD VANESSA GONZALEZ on 11/10/17 Normal [facility] CN Office Visit (TOMN) -------TIAN,JONAS E ([id number]) 1940 MDate Time Provider Department11/10/17 12:00 PM [facility]AC[facility]EL PEDERSEN [facility] During your visit today, we recorded the following information about you:Rachael Pedersen MD 11/11/2017 2:23 AM SignedCHART COPY DO NOT DISCARDPatient Type:ConsultVisit to determine Surgery:YesPCP:Pedro Gonzalez MD ([facility])[address] [place] [address] 41420Kgvsl: [phone]: [phone] Physician::Ladarius Cancino MD95[address] [facility] [address]DBJ: Mr. Florin Courtney Tian is a 77 year old male seen in consultation at [facility] of Ladarius Cancino for [...] be communicated back to the requesting physician viahealthsouth lake[facility] rehabilitation hospitalic medical recordShiJENNIFER Barahonaeferring Provider: LADARIUS CANCINO [[id number]]Allergies As of Date: 11/10/2017(No Known Allergies)Date Reviewed: [...] 1 capsule by mouth once * OMEGA 5-BRR-DIL-FISH OIL 1,20* Take by mouth twice daily. CLOPIDOGREL 75 MG TABLET Take 75 mg by mouth once angeles* MINERALS ORAL Take by mouth once daily. Barbara* OTC PRODUCT 1 tablet three times daily. N*Problem List As Of Date 11/10/2017 Noted Resolved CAD (coronary artery disease) [I25.10] Aortic stenosis [I35.0] Status:Closed by RACHAEL PEDERSEN on 11/11/17 Normal [facility] PROGRESSon 11-10-2017 Protein mass conc HNO ID: [id number] thor: Vanessa Santiago (Creosoting Engineer) HeldService: (none)Author Type: Nurse SpecialistType: Progress NotesFiled: 11/10/2017 3:26 PMNote Text:[facility]ascular [facility] Department of Cardiovascular MedicineSECTION OF INTERVENTIONAL CARDIOLOGYOUTPATIENT VISIT DATE November 10, 2017OUTPATIENT VISIT TYPEESTABLISHEDPRIMARY CARE PHYSICIAN:Pedro Gonzalez MD ([facility])[address] [place] [address]Pazhd: [phone]: [phone] COMPLAINT:Patient presents with:Aortic StenosisHISTORY OF PRESENT ILLNESS:Mr. [...] cap Take 1 capsule by mouth once daily.Jkimn-4-LRO-EPA-Fish Oil 1,200 (144-216) mg cap Take by [...] Activities of Daily Living:ActivitiesPoints (1 or 0) [place]:(1 Point)No supervision, direction or personal assistance Dependence:(0 [...] 2+CTA 11/03/17:aortic annulus: 2.2 x 3.0Area: 4.8 an0Hnqfypffcakbi: 8.0MLD= 8 mmIMPRESSION:Mr. Vargas is a 77 [...] will benotified of the recommendations.Vanessa Colvin RN CONTACT ACID PLANT OPERATOR.CNSI spent 20- minutes in this visit, with more than 50% of the time devotedto patient counseling. Normal [facility] CBC and Differentialon 11-03 Abs Baso <0.03 Normal <0.11 [facility] Comment on above: Performed By: #### C BCDIF, PT, CMP, NTBNP ####[facility] [address]CEbro, [place] [phone] Abs [place] 0.51 k/uL Normal <0.87 [facility] Comment on above: Performed By: #### C BCDIF, PT, CMP, NTBNP ####[facility] [address]CEbro, [place] [phone] Abs Neut 3.07 k/uL Normal 1.45-7.50 [facility] Comment on above: Performed By: #### C BCDIF, PT, CMP, NTBNP ####[place] [id number] AveClevelKathleen [place]ille [phone] Absolute nRBC <0.01 Normal <0.01 [facility] Comment on above: Performed By: #### C BCDIF, PT, CMP, NTBNP ####[place] [address] [address] AveClevelKathleen [place] [phone] Basophils/100 WBC Auto (Bld) 0.3 % Normal [facility] Comment on above: Performed By: #### C BCDIF, PT, CMP, NTBNP ####[place] [address] [address] AveCVickie [place] [phone] DTYPE Auto Diff Normal [facility] Comment on above: Performed By: #### C BCDIF, PT, CMP, NTBNP ####[place] [address] [address] [place] [phone] Eosinophils Auto #/vol (Bld) 0.17 10*3/uL Normal <0.46 [facility] Comment on above: Performed By: #### C BCDIF, PT, CMP, NTBNP ####[place] [address] [address]ClevelK[address]leen [place] [phone] Eosinophils/100 WBC Auto (Bld) 2.6 % Normal [facility] Comment on above: Performed By: #### C BCDIF, PT, CMP, NTBNP ####[place] [address] [address] AveClevelKathleen [place] [phone] Erythrocyte distribution width Auto Ratio (RBC) 13.6 % Normal 11.5-15.0 [facility] Comment on above: Performed By: #### C BCDIF, PT, CMP, NTBNP ####[place] [address] [address]levelK[address] [place] [phone] Hematocrit Auto Volume Fraction (Bld) 42.8 % Normal 39.0-51.0 [facility] Comment on above: Performed By: #### C BCDIF, PT, CMP, NTBNP ####[address] AvDonna Ville [phone] Hemoglobin mass conc (Bld) 13.7 g/dL Normal 13.0-17.0 [facility] Comment on above: Performed By: #### C BCDIF, PT, CMP, NTBNP ####[place] [phone] Lymphocytes Auto #/vol (Bld) 2.73 10*3/uL Normal 1.00-4.00 [facility] Comment on above: Performed By: #### C BCDIF, PT, CMP, NTBNP ####[place] [phone] Lymphocytes/100 WBC Auto (Bld) 41.9 % Normal [facility] Comment on above: Performed By: #### C BCDIF, PT, CMP, NTBNP ####[place] [phone] MCH Auto Entitic mass (RBC) 29.0 pG Normal 26.0-34.0 [facility] Comment on above: Performed By: #### C BCDIF, PT, CMP, NTBNP ####[place] [phone] MCHC Auto mass conc (RBC) 32.0 g/dL Normal 30.5-36.0 [facility] Comment on above: Performed By: #### C BCDIF, PT, CMP, NTBNP ####[address] AveCVickie Ville [phone] MCV Auto Entitic volume (RBC) 90.5 fL Normal 80.0-100.0 [facility] Comment on above: Performed By: #### C BCDIF, PT, CMP, NTBNP ####[place] [address] [address], [place] [phone] Monocytes/100 WBC Auto (Bld) 7.8 % Normal [facility] Comment on above: Performed By: #### C BCDIF, PT, CMP, NTBNP ####[place] [address] [address], [place] [phone] Neutrophils/100 WBC Auto (Bld) 47.4 % Normal [facility] Comment on above: Performed By: #### C BCDIF, PT, CMP, NTBNP ####[place] [address] [address]CV[address] [place] [phone] NRBCs 0.0 /100 WBC Normal 0 [facility] Comment on above: Performed By: #### C BCDIF, PT, CMP, NTBNP ####[place] [address] [address]CV[address] [place] [phone] Platelet mean volume Auto Entitic volume (Bld) 10.6 fL Normal 9.0-12.7 [facility] Comment on above: Performed By: #### C BCDIF, PT, CMP, NTBNP ####[place] [address] [address], [place] [phone] Platelets Auto #/vol (Bld) 176 10*3/uL Normal 150-400 [facility] Comment on above: Performed By: #### C BCDIF, PT, CMP, NTBNP ####[place] [address] [address], [place] [phone] RBC Auto #/vol (Bld) 4.73 10*6/uL Normal 4.20-6.00 [facility] Comment on above: Performed By: #### C BCDIF, PT, CMP, NTBNP ####[place] [address] [address], [place] [phone] WBC Auto #/vol (Bld) 6.51 10*3/uL Normal 3.70-11.00 [facility] [place] Comment on above: Performed By: #### C BCDIF, PT, CMP, NTBNP ####[facility] [address], [place] [phone] CNOVon 11-03-2017 CNOV Office Visit (CATHMN) -------FLORIN VARGAS ([id number]) 1940 MDate Time Provider Department11/03/17 1:30 PM LADARIUS CANCINO CATHMN During your visit today, we recorded the following information about you: Pulse Blood pressure Weight Height 60/minute 131/64 85.5 kg 1.676 Kavita Cancino MD 11/23/2017 6:37 PM [facility] V[facility] InstituteRobert and Ashley Lay Department of Cardiovascular MedicineSECTION OF INTERVENTIONAL CARDIOLOGYOUTPATIENT VISIT DATE November 03, 2017OUTPATIENT VISIT TYPENEWPRIMARY CARE PHYSICIAN:Pedro Gonzalez MD ([facility])[address] [place] [address] 034[address]Uquzl: [phone]: [phone] PHYSICIAN:SELFCHIEF COMPLAINT:Coronary Artery DiseaseAortic StenosisHISTORY OF PRESENT ILLNESS:Mr. Vargas is a 77 year old male from [place], [place] who presents todayfor evaluation of coronary artery disease and .PMH consists of:- CAD s/p CABG 1995 GRAJEDA-LAD ([facility] ), redo CABG (2001 [facility])- aortic stenosis- mitral valve regurgitation- HLD,- [...] hehas tried multiple medications with his prior brickmason apprentice without success. Tristonhas not been on statin for this period.Given these symtpoms, Stress test in July 2017 that could not necessarilyrule out NM ischemia. Heart cath as below.He had a [...] is walking up an incline. 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 Chelated minerals liquidOTC PRODUCT 1 tablet three times daily. Natural artery careREVIEW OF SYSTEMS:12 point ROS negative as per HPIPHYSICAL EXAMINATION:BP 131/64 Pulse 60 Ht 5' 6ANDquot; (1.68m) Wt 188 lb 8 oz (85.5kg) NfZ938% BMI 30.44 kg/(m2).General Appearance: Well developed and [...] horizontal ST depression in II, III, aVF, V5-D3Imqrkltavb perfusion changes concerning for physiologic apical thinning,however, [...] all questions answered- Plan discussed with Staff Confectionery Maker, Dr Ladarius Cancino. Note andrecommendations will be finalized upon his final attestation/recommendations .---------Wilton Charlton MD MPHCardiovascular Medicine Fellow, PGY - 5COhioHealth Southeastern Medical Center Arlen bib Cameron Pena Heart and [email or web address] [id number] STAFF PHYSICIAN NOTE OF PERSONAL INVOLVEMENT IN [...] a tricuspid valve. His aortic annulus measures uevnsdw784 and 550 mm? with sinuses of Valsalva of only 29 mm and an STJ of only 26mm. Coronary angiography showed no obvious targets for PCI in the big sandy leftcirculation with a patent GRAJEDA to his LAD and a patent vein graft to thelateral wall. The vein graft to the right coronary artery was occluded withsevere, heavily calcified diffuse disease of the big sandy right coronary arterythat would be amenable to [...] valve stenosis [I35.0] Other Visit Diagnoses:Atherosclerosis of big sandy coronary artery of big sandy heart, angina presence unspecified [I25.10] Coronary artery disease involving big sandy coronary artery of big sandy heart with angina pectoris with documented spasm (HCC) [I25.111]Order(s):CARDIAC STEEL ROD BUSTER ORDER [[id number]] Order #: [id number]: 1Prescriptions as of 11/03/2017 Sig: ISOSORBIDE MONONITRATE ER 60 * Take 30 mg by mouth once angeles* METOPROLOL SUCCINATE ER 50 MG* Take 25 mg by mouth once angeles* ASPIRIN 81 MG TABLET,DELAYED * Take 81 mg by mouth once angeles* GARLIC 1,000 MG CAPSULE Take 1 capsule by mouth once * OMEGA 9-VKF-DOV-FISH OIL 1,20* Take by mouth twice daily. CLOPIDOGREL 75 MG TABLET Take 75 mg by mouth once angeles* MINERALS ORAL Take by mouth once daily. Barbara* OTC PRODUCT 1 tablet three times daily. N*Problem List As Of Date: 11/03/2017(None)Letter Text Ladarius Cancino M.D.[place] [facility]mancarepart[facility] Department ofCardiovascular MedicineSection of Interventional and Clinical CardiologyApril 2017Mr. Florin Reeceler[address] [facility] [address]FKSJ: Jayna Vargas NO: [id number] OF SERVICE: 11/03/2017Dear Mr. Vargas:The results of [...] do not hesitate to contactour clinic at [phone].Sincerely,Jose Cancino M.D.(Signed electronically to expedite mailing)Heart and Vascular InstituteCrookston and [facility] Department of Cardiovascular MedicineSECTION OF INTERVENTIONAL CARDIOLOGYOUTPATIENT VISIT DATE November 03, 2017OUTPATIENT VISIT TYPENEWPRIMARY CARE PHYSICIAN:Pedro Gonzalez MD ([facility])[address] [place] [address]Pukwo: [phone]: [phone] PHYSICIAN:SELFCHIEF COMPLAINT:Coronary Artery DiseaseAortic StenosisHISTORY OF PRESENT ILLNESS:Mr. Vargas is a 77 year old male from [place], [place] who presents todayfor evaluation of coronary artery disease and .PMH consists of:- CAD s/p CABG 1995 GRAJEDA-LAD ([facility] ), redo CABG (2001 [facility])- aortic stenosis- mitral valve regurgitation- HLD,- [...] has tried multiple medications with his prior brickmason apprentice withoutsuccess. He has not been on statin for this period.Given these symtpoms, Stress test in July 2017 that could not necessarilyrule out NM ischemia. Heart cath as below.He had a [...] is walking up an incline. 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 Note andrecommendations will be finalized upon his final attestation/recommendations .---------Wilton Charlton MD MPHCardiovascular Medicine Fellow, PGY - 5COhio Valley Hospital - Ellis Hospitalangelo and Cameron Pena Heart and [email or web address] [id number] STAFF PHYSICIAN NOTE OF PERSONAL INVOLVEMENT IN [...] showed no obvioustargets for PCI in the big sandy left circulation with a patent GRAJEDA to his LADand a patent vein graft to the lateral wall. The vein graft to the rightcoronary artery was occluded with severe, heavily calcified diffuse diseaseof the big sandy right coronary artery that would be amenable [...] 03, 2017TIME OF SERVICE: 3:23 PMEncounter Number: [id number] Status:Closed by LADARIUS CANCINO on 11/23/17 Normal [facility] CTA C/A/P (GATED) W IVCONon 11-03-2017 [...] throughout, and is notable for an infrarenal aneurysm.Hospital Educator dimensions of the thoracoabdominal aorta are as [...] exam is recommended in 3 to 6 months.Office Clin Asst: JOSE ARMANDO Transcribe Date/Time: Nov 03 2017 1:23PDictated by : Jordi JACKSON examination was interpreted and the report reviewed and electronically signed by: GABRIEL POWELL DO on Nov 03 2017 3:18PM [id number] Normal [facility] Comp Metabolic Panelon 11-03 Albumin mass conc 4.1 g/dL Normal 3.9-4.9 [facility] Comment on above: Performed By: #### C BCDIF, PT, CMP, NTBNP ####[facility] [address] [place], [place] [phone] ALP enzyme act/vol 84 U/L Normal 36-108 [facility] Comment on above: Performed By: #### C BCDIF, PT, CMP, NTBNP ####[facility] [address] [place], [place] [phone] ALT enzyme act/vol 16 U/L Normal 10-54 [facility] Comment on above: Performed By: #### C BCDIF, PT, CMP, NTBNP ####[place] [id number] [place] AveCVickie [place] [phone] Anion gap 3 molar conc 12 mmol/L Normal 9-18 [facility] Comment on above: Performed By: #### C BCDIF, PT, CMP, NTBNP ####[place] [address] [place] AveCV[address] [place] [phone] AST enzyme act/vol 20 U/L Normal 14-40 [facility] Comment on above: Performed By: #### C BCDIF, PT, CMP, NTBNP ####[address] Av[address] [place] [phone] Bilirubin mass conc 0.8 mg/dL Normal 0.2-1.3 [facility] Comment on above: Performed By: #### C BCDIF, PT, CMP, NTBNP ####[address] [place] [phone] Calcium mass conc 9.3 mg/dL Normal 8.5-10.2 [facility] Comment on above: Performed By: #### C BCDIF, PT, CMP, NTBNP ####[address] [place] [phone] Chloride molar conc 102 mmol/L Normal 97-105 [facility] Comment on above: Performed By: #### C BCDIF, PT, CMP, NTBNP ####[place] [address] [address] [place] [phone] CO2 molar conc 27 mmol/L Normal 22-30 [facility] Comment on above: Performed By: #### C BCDIF, PT, CMP, NTBNP ####[place] [address] [address] [place] [phone] Creatinine mass conc 0.98 mg/dL Normal 0.73-1.22 [facility] Comment on above: Performed By: #### C BCDIF, PT, CMP, NTBNP ####[facility] [address] [place], [place] [phone] eGFR- Amer. >60 Normal [facility] Comment on above: Performed By: #### C BCDIF, PT, CMP, NTBNP ####[facility] [place], [place] [phone] GFR/1.73 sq M predicted among non-blacks MDRD vol rate/area (S/P/Bld) mL/min/{1.73_m2} Normal [facility] Comment on above: Result Comment: eGFR [...] By: #### C BCDIF, PT, CMP, NTBNP ####[facility] [place], [place] [phone] Glucose mass conc 88 mg/dL Normal 74-99 [facility] Comment on above: Result Comment: The [place] Diabetes Association (ADA) provides guidance for cutoff [...] Standards of Medical Care in Diabetes 2016, [place] Diabetes Association. Diabetes Care. 2016.39(Suppl 1). Performed By: #### C BCDIF, PT, CMP, NTBNP ####[place] [id number] [place], [place] [phone] Potassium molar conc 4.5 mmol/L Normal 3.7-5.1 [facility] Comment on above: Performed By: #### C BCDIF, PT, CMP, NTBNP ####[address] [place], [place] [phone] Protein mass conc 7.1 g/dL Normal 6.3-8.0 [facility] Comment on above: Performed By: #### C BCDIF, PT, CMP, NTBNP ####[address] [place], [place] [phone] Sodium molar conc 141 mmol/L Normal 136-144 [facility] Comment on above: Performed By: #### C BCDIF, PT, CMP, NTBNP ####[address] [phone] Urea nitrogen mass conc 20 mg/dL Normal 9-24 [facility] Comment on above: Performed By: #### C BCDIF, PT, CMP, NTBNP ####[address] [phone] NT Pro BNPon 11-03-2017 Protein mass conc 2191 pg/mL High <450 [facility] Comment on above: Performed By: #### C BCDIF, PT, CMP, NTBNP ####[address] [place], [place] [phone] PROGRESSon 11-03-2017 Protein mass conc HNO ID: [id number] thor: Ladarius Grajeda: (none)Author Type: PhysicianType: Progress NotesFiled: 11/23/2017 6:37 PMNote Text:Heart and Vascular InstituteMarciano and Ashley Lay Department of Cardiovascular MedicineSECTION OF INTERVENTIONAL CARDIOLOGYOUTPATIENT VISIT DATE November 03, 2017OUTPATIENT VISIT TYPENEWPRIMARY CARE PHYSICIAN:Pedro Gonzalez MD ([facility])[address] [place] [address]Tacsi: [phone]: [phone] PHYSICIAN:SELFCHIEF COMPLAINT:Coronary Artery DiseaseAortic StenosisHISTORY OF PRESENT ILLNESS:Mr. 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 He has not been on statin for this period.Given these symtpoms, Stress test in July 2017 that could notnecessarily rule out NM ischemia. 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 Chelated minerals liquidOTC PRODUCT 1 tablet three times daily. Natural artery careREVIEW OF SYSTEMS:12 point ROS negative as per HPIPHYSICAL EXAMINATION:BP 131/64 Pulse 60 Ht 5' 6 (1.68m) Wt 188 lb 8 oz (85.5kg) EgO260% BMI 30.44 kg/(m2).General Appearance: Well developed and [...] horizontal ST depression in II, III, aVF, V5-G7Ieqbhelccm perfusion changes concerning for physiologic apical thinning,however, [...] degree AV blockLeft Heart Catheter[facility]:Thermal CO 2.71, Thermal CI 1.38RA 4, [...] all questions answered- Plan discussed with Staff Confectionery Maker, Dr Ladarius Cancino. Note andrecommendations will be finalized upon his finalattestation/recommenda tions.---------Wilton Charlton MD MPHCardiovascular Medicine Fellow, PGY - 5COhio Valley Hospital - Ellis HospitalFletcher Pena Heart and [email or web address] [id number] STAFF PHYSICIAN NOTE OF PERSONAL INVOLVEMENT IN [...] showed no obvious targets for PCI inthe big sandy left circulation with a patent GRAJEDA to [...] 03, 2017TIME OF SERVICE: 3:23 PM Normal [facility] Protein mass conc HNO ID: [id number] thor: Tamika Leon CtService: (none)Author Type: (none)Type: Progress NotesFiled: 11/03/2017 1:19 PMNote Text: Radiology Service Progress NotePATIENT NAME: Flroin VargasMRN: [id number] OF SERVICE: November 03, 2017TIME: 1:11 PMPATIENT IDENTITY VERIFICATION COMPLETED USING TWO (2) METHODS: Patientconfirmed name verbally and ID band matches..PATIENT GENDER DATA: MalePATIENT RELEVANT IMPLANT DATA REVIEWED: YesRADIOLOGY DEPARTMENT: CT; Exam(s) Completed: CardiacPERIPHERAL IV DATA: Site assessment: Clean,Dry and Intact, Sitedisposition Left in for next appointmentSIGNED BY: Tamika Leon CtMar 2017 1:11 PM Normal [facility] Protein mass conc HNO ID: [id number] thor: Tonja (Rn) [facility], RNService: RadiologyAuthor Type: Registered NurseType: Progress NotesFiled: 11/03/2017 12:55 PMNote Text: Radiology Service Progress NotePATIENT NAME: Florin VargasMRN: [id number] OF SERVICE: November 03, 2017TIME: 12:38 PMPATIENT WEIGHT: 185 LBSPATIENT IDENTITY VERIFICATION COMPLETED USING TWO (2) METHODS: Patientconfirmed name verbally and ID band matches..PATIENT GENDER DATA: MaleCONTRAST INDUCED NEPHROPATHY RISK FACTORS: Patient age > 60 yearsCREATININE:Creatinine (POCT)Date Value Ref Range Lxxwob8211/03/2017 0.90 0.7 - 1.4 mg/dL Final eGFR-All Other Races (POCT)Date Value Ref Range Pdmgwk6411/03/2017 >60 mL/min/1.73 m2 Final eGFR- (POCT)Date Value Ref Range Ymhsfo1411/03/2017 >60 mL/min/1.73 m2 Final P.O.C.T. RESULTS: POC done: Yes, See Lab Tab November 03, 2017TREATMENT: No Hydration needed.ALLERGIES: Reviewed and updatedCONTRAST ALLERGY: NO.IV SITE: Ambulatory: A peripheral IV was started in the Rightantecubital site with a Angio cath: 20 gauge. and A Saline lock wasinserted per protocolIV SITE APPEARANCE: Clean,Dry and IntactSIGNED BY: Tonja Watkins, SEBASTIANWood County Hospital 2017 12:38 PM Normal [facility] Protein mass conc HNO ID: [id number] thor: Torie Coles RtService: (none)Author Type: (none)Type: Progress NotesFiled: 11/03/2017 10:47 AMNote Text: Radiology Service Progress NotePATIENT NAME: Florin VargasMRN: [id number] OF SERVICE: November 03, 2017TIME: 10:47 AMPATIENT IDENTITY VERIFICATION COMPLETED USING TWO (2) METHODS: Patientconfirmed name verbally and Date of .PATIENT GENDER DATA: MalePATIENT RELEVANT IMPLANT DATA REVIEWED: Not ApplicableRADIOLOGY DEPARTMENT: General X-ray: Exam(s) Completed: Chest X-RayPERIPHERAL IV DATA: Not applicableSIGNED BY: Torie Coles [facility] 2017 10:47 AM Normal [facility] Protimeon 11-03-2017 INR Coag RelTime (Bld) 1.0 {INR} Normal 0.9-1.3 [facility] Comment on above: Result Comment: Татьяна min K Antagonist (VKA) Therapeutic Range: INR 2 to 3 (Target INR of 2.5)Note: For patients treated with VKA drugs, such as warfarin, the [employer] 2012 Guideline recommends [...] al. Chest 2012, 141:7S-47SGuero YIN, et al. [facility] 2017, 70: 252-289 Performed By: #### C BCDIF, PT, CMP, NTBNP ####[facility] [place], [place] [phone] PT Sec 10.7 sec Normal 9.7-13.0 [facility] Comment on above: Performed By: #### C BCDIF, PT, CMP, NTBNP ####[facility] [place], [place] [phone] XR CHEST 2V FRONTAL/LATon XR CHEST 2V [...] Degenerative changes in the spine.IMPRESSION:See body of report..Office Clin Asst: PSCB Transcribe Date/Time: Nov 03 2017 2:31PDictated by : YANG ZENDEJAS MDThis examination was interpreted and the report reviewed and electronically signed by: YANG ZENDEJAS MD on Nov 03 2017 2:32PM [id number] Normal [facility] Vital Signs Date Time Vital Sign Value Performing Clinician Facility 04-07-2025 09:15-0400 Body height 167.[address] Pedro Gonzalez MD Work Phone: 3(523)752-631010 [place] [address] 04-07-2025 09:15-0400 Body mass index (BMI) [Ratio] 28.8 kg/m2 Dr. Pedro Gonzalez MD Work Phone: 0(101)386-558630 [place] [address] 04-07-2025 09:15-0400 Body weight 81.[address] Pedro Gonzalez MD Work Phone: 3(405)745-372230 [place] [address] 04-07-2025 09:15-0400 Diastolic blood pressure 72 mm[Hg] Dr. Pedro Gonzalez MD Work Phone: 6(234)137-058230 [place] [address] 04-07-2025 09:15-0400 Heart rate 72 /min Dr. Pedro Gonzalez MD Work Phone: 6(238)842-684730 [place] [address] 04-07-2025 09:15-0400 Respiratory rate 16 /min Dr. Pedro Gonzalez MD Work Phone: 7(295)651-936630 [place] [address] 04-07-2025 09:15-0400 Systolic blood pressure 118 mm[Hg] Dr. Pedro Gonzalez MD Work Phone: 6(398)926-326230 [place] [address] 04-02-2025 12:15-0400 Diastolic blood pressure 74 mm[Hg] Dr. Pedro Gonzalez MD Work Phone: 9(750)969-150430 [place] [address] 04-02-2025 12:15-0400 Heart rate 73 /min Dr. Pedro Gonzalez MD Work Phone: 6(112)827-275730 [place] [address] 04-02-2025 12:15-0400 Respiratory rate 20 /min Dr. Pedro Gonzalez MD Work Phone: 0(454)509-553330 [place] [address] 04-02-2025 12:15-0400 SaO2% (BldA) [Mass fraction] 97 % Dr. Pedro Gonzalez MD Work Phone: 5(986)574-033130 [place] [address] 04-02-2025 12:15-0400 Systolic blood pressure 115 mm[Hg] Dr. Pedro Gonzalez MD Work Phone: 0(528)126-225130 [place] [address] 04-02-2025 11:35-0400 Body mass index (BMI) [Ratio] 30.2 kg/m2 Dr. Pedro Gonzalez MD Work Phone: 4(629)541-370830 [place] [address] 04-02-2025 11:35-0400 Body temperature 98.1 [degF] Dr. Pedro Gonzalez MD Work Phone: 5(336)867-097130 [place] [address] 04-02-2025 11:35-0400 Body weight 85.[address] Pedro Gonzalez MD Work Phone: 8(257)032-311430 [place] [address] 04-02-2025 10:48-0400 Body height 167.[address] Pedro Gonzalez MD Work Phone: 9(655)313-546430 [place] [address] 02-26-2025 08:56-0400 Body height 167.[address] Pedro Gonzalez MD Work Phone: 0(400)973-381630 [place] [address] 02-26-2025 08:56-0400 Body mass index (BMI) [Ratio] 29 kg/m2 Dr. Pedro Gonzalez MD Work Phone: 6(974)008-142230 [place] [address] 02-26-2025 08:56-0400 Body weight 81.[address] Pedro Gonzalez MD Work Phone: 4(989)015-048230 [place] [address] 02-26-2025 08:56-0400 Diastolic blood pressure 64 mm[Hg] Dr. Pedro Gonzalez MD Work Phone: 5(210)484-183830 [place] [address] 02-26-2025 08:56-0400 Heart rate 60 /min Dr. Pedro Gonzalez MD Work Phone: 7(854)416-577330 [place] [address] 02-26-2025 08:56-0400 Respiratory rate 18 /min Dr. Pedro Gonzalez MD Work Phone: 3(186)643-710030 [place] [address] 02-26-2025 08:56-0400 Systolic blood pressure 112 mm[Hg] Dr. Pedro Gonzalez MD Work Phone: 8(875)496-155930 [place] [address] 02-11-2025 10:07-0400 Body height 167.[address] Pedro Gonzalez MD Work Phone: 7(992)645-433930 [place] [address] 02-11-2025 10:07-0400 Body mass index (BMI) [Ratio] 30.2 kg/m2 Dr. Pedro Gonzalez MD Work Phone: 6(868)015-762510 [place] [address] 02-11-2025 10:07-0400 Body weight 84.[address] Pedro Gonzalez MD Work Phone: 8(918)131-990430 [place] [address] 02-11-2025 10:07-0400 Diastolic blood pressure 70 mm[Hg] Dr. Pedro Gonzalez MD Work Phone: 5(045)171-990730 [place] [address] 02-11-2025 10:07-0400 Heart rate 75 /min Dr. Pedro Gonzalez MD Work Phone: 0(123)016-498630 [place] [address] 02-11-2025 10:07-0400 Respiratory rate 16 /min Dr. Pedro Gonzalez MD Work Phone: 0(339)461-151130 [place] [address] 02-11-2025 10:07-0400 Systolic blood pressure 120 mm[Hg] Dr. Pedro Gonzalez MD Work Phone: 3(477)141-352730 [place] [address] 02-08-2025 11:00-0400 Body temperature 97.1 [degF] Dr. Pedro Gonzalez MD Work Phone: 3(819)299-021030 [place] [address] 02-08-2025 11:00-0400 Diastolic blood pressure 69 mm[Hg] Dr. Pedro Gonzalez MD Work Phone: 5(143)235-680930 [place] [address] 02-08-2025 11:00-0400 Heart rate 69 /min Dr. Pedro Gonzalez MD Work Phone: 6(812)746-834430 [place] [address] 02-08-2025 11:00-0400 Respiratory rate 16 /min Dr. Pedro Gonzalez MD Work Phone: 4(916)861-829330 [place] [address] 02-08-2025 11:00-0400 SaO2% (BldA) [Mass fraction] 99 % Dr. Pedro Gonzalez MD Work Phone: 2(442)270-164730 [place] [address] 02-08-2025 11:00-0400 Systolic blood pressure 104 mm[Hg] Dr. Pedro Gonzalez MD Work Phone: 8(868)878-345030 [place] [address] 02-08-2025 05:21-0400 Inhaled oxygen concentration 24 % Dr. Pedro Gonzalez MD Work Phone: [facility] 02-08-2025 03:45-0400 Body mass index (BMI) [Ratio] 31.6 kg/m2 Dr. Pedro Gonzalez MD Work Phone: [facility] 02-08-2025 03:45-0400 Body weight [address] Pedro Gonzalez MD Work Phone: 1(610)826-348010 [place] [address] 02-07-2025 07:10-0400 Inhaled oxygen flow rate 2 L/min Dr. Pedro Gonzalez MD Work Phone: [facility] 2025 10:59-0400 Body height 167.[address] Pedro Gonzalez MD Work Phone: 1(553)143-418118 [address] 02-04-2025 23:21-0400 Body temperature 97.3 [degF] Dr. Pedro Gonzalez MD Work Phone: 6(746)232-570710 [place] [address] 02-04-2025 23:21-0400 Diastolic blood pressure 68 mm[Hg] Dr. Pedro Gonzalez MD Work Phone: [facility] 02-04-2025 23:21-0400 Heart rate 78 /min Dr. Pedro Gonzalez MD Work Phone: 7(157)602-671418 [address] 02-04-2025 23:21-0400 Respiratory rate 18 /min Dr. Pedro Gonzalez MD Work Phone: 6(864)793-628210 [place] [address] 02-04-2025 23:21-0400 SaO2% (BldA) [Mass fraction] 98 % Dr. Pedro Gonzalez MD Work Phone: [facility] 02-04-2025 23:21-0400 Systolic blood pressure 103 mm[Hg] Dr. Pedro Gonzalez MD Work Phone: [facility] 02-04-2025 21:43-0400 Inhaled oxygen concentration 28 % Dr. Pedro Gonzalez MD Work Phone: [facility] 02-04-2025 21:00-0400 Inhaled oxygen flow rate 2 L/min Dr. Pedro Gonzalez MD Work Phone: 6(322)915-991630 [place] [address] 02-04-2025 17:56-0400 Body height 167.[address] Pedro Gonzalez MD Work Phone: 7(175)784-730730 [place] [address] 02-04-2025 17:56-0400 Body mass index (BMI) [Ratio] 31.4 kg/m2 Dr. Pedro Gonzalez MD Work Phone: 8(301)636-549030 [place] [address] 02-04-2025 17:56-0400 Body weight 88.[address] Pedro Gonzalez MD Work Phone: 7(939)135-443630 [place] [address] 02-04-2025 09:01-0400 Body height 167.[address] Pedro Gonzalez MD Work Phone: 9(938)605-166330 [place] [address] 02-04-2025 09:01-0400 Body mass index (BMI) [Ratio] 29 kg/m2 Dr. Pedro Gonzalez MD Work Phone: 2(246)362-431930 [place] [address] 02-04-2025 09:01-0400 Body weight 81.[address] Pedro Gonzalez MD Work Phone: 7(494)752-817130 [place] [address] 02-04-2025 09:01-0400 Diastolic blood pressure 49 mm[Hg] Dr. Pedro Gonzalez MD Work Phone: 9(816)182-306830 [place] [address] 02-04-2025 09:01-0400 Heart rate 78 /min Dr. Pedro Gonzalez MD Work Phone: 5(609)244-211030 [place] [address] 02-04-2025 09:01-0400 Respiratory rate 18 /min Dr. Pedro Gonzalez MD Work Phone: 5(402)829-978830 [place] [address] 02-04-2025 09:01-0400 Systolic blood pressure 86 mm[Hg] Dr. Pedro Gonzalez MD Work Phone: 5(610)465-081030 [place] [address] 12-25-2024 10:20-0400 Body height 167.[address] Pedro Gonzalez MD Work Phone: 5(178)128-244630 [place] [address] 12-25-2024 10:20-0400 Body mass index (BMI) [Ratio] 29.3 kg/m2 Dr. Pedro Gonzalez MD Work Phone: 6(269)267-481730 [place] [address] 12-25-2024 10:20-0400 Body weight 82.[address] Pedro Gonzalez MD Work Phone: [facility] 12-25-2024 10:20-0400 Diastolic blood pressure 71 mm[Hg] Dr. Pedro Gonzalez MD Work Phone: 1(408)299-655510 [place] [address] 12-25-2024 10:20-0400 Heart rate 80 /min Dr. Pedro Gonzalez MD Work Phone: 7(574)850-795810 [place] [address] 12-25-2024 10:20-0400 Respiratory rate 20 /min Dr. Pedro Gonzalez MD Work Phone: 8(521)198-130130 [place] [address] 12-25-2024 10:20-0400 Systolic blood pressure 117 mm[Hg] Dr. Pedro Gonzalez MD Work Phone: 6(932)173-748618 [address] 12-13-2024 09:08-0400 Body temperature 98.1 [degF] Dr. Pedro Gonzalez MD Work Phone: 6(005)369-235318 [address] 12-13-2024 09:08-0400 Diastolic blood pressure 63 mm[Hg] Dr. Pedro Gonzalez MD Work Phone: 3(635)707-431718 [address] 12-13-2024 09:08-0400 Heart rate 69 /min Dr. Pedro Gonzalez MD Work Phone: 3(743)624-293510 [place] [address] 12-13-2024 09:08-0400 Respiratory rate 18 /min Dr. Pedro Gonzalez MD Work Phone: 1(749)715-460510 [place] [address] 12-13-2024 09:08-0400 SaO2% (BldA) [Mass fraction] 100 % Dr. Pedro Gonzalez MD Work Phone: [facility] 12-13-2024 09:08-0400 Systolic blood pressure 115 mm[Hg] Dr. Pedro Gonzalez MD Work Phone: 9(514)977-920710 [place] [address] 12-13-2024 09:07-0400 Body mass index (BMI) [Ratio] 29.7 kg/m2 Dr. Pedro Gonzalez MD Work Phone: 6(450)528-069910 [place] [address] 12-13-2024 09:07-0400 Body weight 83.[address] Pedro Gonzalez MD Work Phone: [facility] 08-09-2024 09:23-0500 Body height 165.[address] Pedro Gonzalez MD Work Phone: [facility] 08-09-2024 09:23-0500 Body mass index (BMI) [Ratio] 29.9 kg/m2 Dr. Pedro Gonzalez MD Work Phone: 1(485)690-968436 [address] 08-09-2024 09:23-0500 Body weight 81.[address] Pedro Gonzalez MD Work Phone: 4(985)116-325636 [address] 08-09-2024 09:23-0500 Diastolic blood pressure 57 mm[Hg] Dr. Pedro Gonzalez MD Work Phone: 7(041)456-290636 [address] 08-09-2024 09:23-0500 Heart rate 57 /min Dr. Pedro Gonzalez MD Work Phone: 0(524)696-459801 [place] [address] 08-09-2024 09:23-0500 Respiratory rate 16 /min Dr. Pedro Gonzalez MD Work Phone: 7(627)685-955936 [address] 08-09-2024 09:23-0500 Systolic blood pressure 102 mm[Hg] Dr. Pedro Gonzalez MD Work Phone: [facility] 02-09-2022 11:09-0400 Body height 165.[address] Pedro Gonzalez Work Phone: [facility] Work Phone: 02-09-2022 11:09-0400 Body mass index (BMI) [Ratio] 30.8 kg/m2 Dr. Pedro Gonzalez Work Phone: [facility] Work Phone: 02-09-2022 11:09-0400 Body weight 84.[address] Pedro Gonzalez Work Phone: [facility] Work Phone: 02-09-2022 11:09-0400 Diastolic blood pressure 62 mm[Hg] Dr. Pedro Gonzalez Work Phone: [facility] Work Phone: 02-09-2022 11:09-0400 Heart rate 60 /min Dr. Pedro Gonzalez Work Phone: [facility] Work Phone: 02-09-2022 11:09-0400 Respiratory rate 16 /min Dr. Pedro Gonzalez Work Phone: [facility] Work Phone: 02-09-2022 11:09-0400 Systolic blood pressure 130 mm[Hg] Dr. Pedro Gonzalez Work Phone: [facility] Work Phone: 01-27-2022 13:25-0400 Diastolic blood pressure 82 mm[Hg] Dr. Pedro Gonzalez Work Phone: [facility] Work Phone: 01-27-2022 13:25-0400 SaO2% (BldA) [Mass fraction] 94 % Dr. Pedro Gonzalez Work Phone: [facility] Work Phone: 01-27-2022 13:25-0400 Systolic blood pressure 147 mm[Hg] Dr. Pedro Gonzalez Work Phone: [facility] Work Phone: 01-27-2022 10:14-0400 Body height 165.[address] Pedro Gonzalez Work Phone: [facility] Work Phone: 01-27-2022 10:14-0400 Body mass index (BMI) [Ratio] 30.8 kg/m2 Dr. Pedro Gonzalez Work Phone: [facility] Work Phone: 01-27-2022 10:14-0400 Body temperature 97.1 [degF] Dr. Pedro Gonzalez Work Phone: [facility] Work Phone: 01-27-2022 10:14-0400 Body weight 84.[address] Pedro Gonzalez Work Phone: [facility] Work Phone: 01-27-2022 10:14-0400 Heart rate 80 /min Dr. Pedro Gonzalez Work Phone: [facility] Work Phone: 01-27-2022 10:14-0400 Respiratory rate 14 /min Dr. Pedro Gonzalez Work Phone: [facility] Work Phone: 01-14-2022 13:20-0400 Body mass index (BMI) [Ratio] 30.6 kg/m2 Dr. Pedro Gonzalez Work Phone: [facility] Work Phone: 01-14-2022 13:20-0400 Body temperature 97.2 [degF] Dr. Pedro Gonzalez Work Phone: [facility] Work Phone: 01-14-2022 13:20-0400 Body weight 83.[address] Pedro Gonzalez Work Phone: [facility] Work Phone: 01-14-2022 13:20-0400 Diastolic blood pressure 64 mm[Hg] Dr. Pedro Gonzalez Work Phone: [facility] Work Phone: 01-14-2022 13:20-0400 Heart rate 68 /min Dr. Pedro Gonzalez Work Phone: [facility] Work Phone: 01-14-2022 13:20-0400 Respiratory rate 16 /min Dr. Pedro Gonzalez Work Phone: [facility] Work Phone: 01-14-2022 13:20-0400 SaO2% (BldA) [Mass fraction] 97 % Dr. Pedro Gonzalez Work Phone: [facility] Work Phone: 01-14-2022 13:20-0400 Systolic blood pressure 112 mm[Hg] Dr. Pedro Gonzalez Work Phone: [facility] Work Phone: 12-13-2021 13:34-0400 Body mass index (BMI) [Ratio] 30.9 kg/m2 Dr. Pedro Gonzalez Work Phone: [facility] Work Phone: 12-13-2021 13:34-0400 Body weight 84.[address] Pedro Gonzalez Work Phone: [facility] Work Phone: 12-13-2021 13:34-0400 Diastolic blood pressure 66 mm[Hg] Dr. Pedro Gonzalez Work Phone: [facility] Work Phone: 12-13-2021 13:34-0400 Heart rate 65 /min Dr. Pedro Gonzalez Work Phone: [facility] Work Phone: 12-13-2021 13:34-0400 Respiratory rate 18 /min Dr. Pedro Gonzalez Work Phone: [facility] Work Phone: 12-13-2021 13:34-0400 Systolic blood pressure 129 mm[Hg] Dr. Pedro Gonzalez Work Phone: [facility] Work Phone: 12-13-2021 13:34-0400 Body height 165.[address] Pedro Gonzalez Work Phone: [facility] Work Phone: 12-13-2021 13:34-0400 Body mass index (BMI) [Ratio] 30.9 kg/m2 Dr. Pedro Gonzalez Work Phone: [facility] Work Phone: 12-13-2021 13:34-0400 Body weight 84.[address] Pedro Gonzalez Work Phone: [facility] Work Phone: 12-13-2021 13:34-0400 Diastolic blood pressure 66 mm[Hg] Dr. Pedro Gonzalez Work Phone: [facility] Work Phone: 12-13-2021 13:34-0400 Heart rate 65 /min Dr. Pedro Gonzalez Work Phone: [facility] Work Phone: 12-13-2021 13:34-0400 Respiratory rate 18 /min Dr. Pedro Gonzalez Work Phone: [facility] Work Phone: 12-13-2021 13:34-0400 Systolic blood pressure 129 mm[Hg] Dr. Pedro Gonzalez Work Phone: [facility] Work Phone: 09-10-2021 07:52-0500 Body mass index (BMI) [Ratio] 30.6 kg/m2 Dr. ePdro Gonzalez Work Phone: [facility] Work Phone: 09-10-2021 07:52-0500 Body weight 83.[address] Pedro Gonzalez Work Phone: [facility] Work Phone: 09-10-2021 07:52-0500 Diastolic blood pressure 63 mm[Hg] Dr. Pedro Gonzalez Work Phone: [facility] Work Phone: 09-10-2021 07:52-0500 Heart rate 59 /min Dr. Pedro Gonzalez Work Phone: [facility] Work Phone: 09-10-2021 07:52-0500 Respiratory rate 16 /min Dr. Pedro Gonzalez Work Phone: [facility] Work Phone: 09-10-2021 07:52-0500 Systolic blood pressure 129 mm[Hg] Dr. Pedro Gonzalez Work Phone: [facility] Work Phone: Encounters Encounter Date Encounter Type Care Provider Facility Start: 04-16-2025 End: 04-16-[address] Pedro Gonzalez MD Work Phone: -[facility] Start: 04-16-2025 End: 04-16-[address] Pedro Gonzalez MD -[facility] Start: 04-15-2025 End: 04-16-2025 ambulatory Pedro Gonzalez Facility:[facility] Start: 04-15-[address] [facility] Work Phone: Start: 04-07-2025 End: 04-07-2025 Patient encounter procedure Andrzej Marinelli NP-C -[facility] Work Phone: Start: 04-07-2025 End: 04-07-[address] Pedro Gonzalez MD Work Phone: -[facility] Start: 04-02-2025 End: 04-02-2025 Emergency department patient visit Dr. Pedro Gonzalez MD Work Phone: -Emergency Department Work Phone: Start: 02-26-2025 End: 02-26-2025 Patient encounter procedure Andrzej Marinelli NP-C -[facility] Work Phone: Start: 02-26-2025 End: 02-26-[address] Pedro Gonzalez MD Work Phone: -[facility] Start: 02-11-2025 Non-patient / Non-visit Dr. Haddad [facility] -[facility] Work Phone: Start: 02-11-2025 End: 02-11-[address] Pedro Gonzalez MD Work Phone: -Pulmonary Services/Neurology Start: 02-11-2025 End: 02-11-2025 Patient encounter procedure Andrzej CUELLAR -Pulmonary Services/Neurology Work Phone: Start: 02-11-2025 End: 02-11-2025 Patient encounter procedure Andrzej Marinelli NP-C -[facility] Work Phone: Start: 02-11-2025 End: 02-11-[address] Pedro Gonzalez MD Work Phone: [facility] Start: 02-11-2025 End: 02-11-2025 ambulatory Pedro Gonzalez Facility:[facility] Start: 02-08-2025 Non-patient / Non-visit Dr. Yeny Gabriel [facility] Work Phone: Start: 02-08-2025 Non-patient / Non-visit Dr. Glen Haywood MD [facility] Start: 02-07-2025 Non-patient / Non-visit Dr. Glen Haywood MD [facility] Start: 02-07-2025 Non-patient / Non-visit Dr. Criss mckeon MD [facility] Start: 02-07-2025 Non-patient / Non-visit Dr. Pedro Valentin [facility] Work Phone: Start: 02-06-2025 Non-patient / Non-visit Dr. Criss mckeon MD [facility] Start: 02-06-2025 Non-patient / Non-visit Dr. Pedro Valentin [facility] Work Phone: Start: 2025 ambulatory Cj Gardiner Facility:[facility] Start: 2025 Non-patient / Non-visit Dr. Caba [facility] Start: 2025 Non-patient / Non-visit Dr. Pedro Valentin [facility] Work Phone: Start: 02-04-2025 End: 02-08-2025 Evaluation and management of inpatient Dr. Rea Cancino MD -Intensive Care Unit Work Phone: Start: 02-04-2025 ambulatory Pedro Gonzalez Facility:[facility] Start: 02-04-2025 Non-patient / Non-visit Dr. Rea Cancino MD [facility] Work Phone: Start: 02-04-2025 End: 02-04-2025 Patient encounter procedure Andrzej Marinelli NP-C -[facility] Work Phone: Start: 02-04-2025 End: 02-04-[address] Pedro Gonzalez MD Work Phone: [facility] Work Phone: Start: 12-25-2024 End: 12-25-2024 Patient encounter procedure Andrzej Marinelli NP- -[facility] Work Phone: Start: 12-25-2024 End: 12-25-[address] Pedro Gonzalez MD Work Phone: [facility] Work Phone: Start: 12-20-2024 ambulatory Pedro Gonzalez Facility:[facility] Start: 12-13-2024 Non-patient / Non-visit Dr. Gaurang lynch MD -[facility] Work Phone: Start: 12-12-2024 ambulatory Aden Knutson Facility:[facility] Start: 12-12-2024 Non-patient / Non-visit Dr. Aden mccartney MD -[facility] Start: 12-12-2024 Non-patient / Non-visit Dr. Gaurang lynch MD -[facility] Work Phone: Start: 12-12-2024 ambulatory Gaurang Cortes Facility:[facility] Start: 12-12-2024 End: 12-13-2024 Evaluation and management of inpatient Dr. Gaurang Cortes MD -Progressive Care Unit Work Phone: Start: 11-18-2024 End: 11-18-[address] Pedro Gonzalez MD Work Phone: [facility] Work Phone: Start: 11-18-2024 End: 11-18-2024 Patient encounter procedure Karo Sewell NP- -[facility] Work Phone: Start: 11-18-2024 End: 11-18-2024 ambulatory Karo Sewell NP Facility:[facility] Start: 11-04-2024 End: 11-04-[address] Pedro Gonzalez MD Work Phone: [facility] Work Phone: Start: 11-04-2024 End: 11-04-2024 Patient encounter procedure Karo Sewell TELEMARKETER SUPERVISOR-C -Laboratory, [place] Work Phone: Start: 11-04-2024 End: 11-04-2024 ambulatory Pedro Gonzalez Facility:[facility] Start: 08-09-2024 End: 08-09-2024 Patient encounter procedure Andrzej Marinelli TELEMARKETER SUPERVISOR-C -Laboratory Work Phone: Start: 08-09-2024 End: 08-09-2024 Patient encounter procedure Andrzej Marinelli TELEMARKETER SUPERVISOR-C -[facility] Work Phone: Start: 08-09-2024 End: 08-09-2024 ambulatory Pedro Gonzalez VSC Facility:[facility] Start: 08-09-2024 End: 08-09-2024 ambulatory Andrzej Marinelli TELEMARKETER SUPERVISOR Facility:[facility] Start: 03-15-2022 Non-patient / Non-visit Dr. Wesley Gonzalez Work Phone: [facility] Start: 03-11-2022 Non-patient / Non-visit Dr. Wesley Gonzalez Work Phone: [facility] Start: 03-11-2022 End: 03-11-[address] Pedro Gonzalez Work Phone: [facility]-Cardiovascular Services Start: 02-09-2022 End: 02-09-[address] Pedro Gonzalez Work Phone: [facility] Start: 02-02-2022 End: 02-02-[address] Pedro Gonzalez Work Phone: [facility]-Sleep Lab Start: 02-01-2022 End: 02-01-[address] Pedro Gonzalez Work Phone: [facility]-Laboratory Start: 01-27-2022 End: 01-27-2022 Emergency department patient visit Dr. Pedro Gonzalez Work Phone: [facility]-Emergency Department Start: 01-14-2022 End: 01-14-[address] Pedro Gonzalez Work Phone: [facility]-Pulmonary Medicine [facility] Start: 12-31-2021 End: 12-31-[address] Pedro Gonzalez Work Phone: [facility]-Sleep Lab Start: 12-13-2021 End: 12-13-[address] Pedro Gonzalez Work Phone: [facility] Start: 09-10-2021 End: 09-10-[address] Pedro Gonzalez Work Phone: [facility] Start: 02-27-2019 End: 05-10-2019 Patient encounter procedure SAJI PENA [facility] Start: 02-25-2019 End: 02-26-2019 Evaluation and management of inpatient SAJI PENA [facility] Start: 02-07-2019 End: 02-07-2019 Patient encounter procedure SAJI PENA [facility] Start: 01-11-2019 End: 01-11-2019 Patient encounter procedure SAJI PENA [facility] Start: 03-07-2018 End: 03-08-2018 Evaluation and management of inpatient FAROOQ R ALLEN [facility] Start: 01-12-2018 End: 01-19-2018 Patient encounter BHARGAV Mejia ([place]) [facility] Start: 12-29-2017 End: 12-29-2017 Patient encounter FAROOQ R ALLEN [facility] Start: 12-27-2017 End: 12-29-2017 Evaluation and management of inpatient FAROOQ R ALLEN [facility] Start: 12-26-2017 End: 01-01-2018 Patient encounter BHARGAV Mejia ([place]) [facility] Start: 12-21-2017 End: 12-21-2017 Patient encounter LADARIUS CANCINO [facility] Start: 11-22-2017 End: 11-23-2017 Patient encounter LADARIUS CANCINO [facility] Start: 11-10-2017 End: 11-20-2017 Patient encounter RACHAEL PEDERSEN [facility] Start: 11-03-2017 End: 11-03-2017 Patient encounter LADARIUS CANCINO [facility] Start: 11-03-2017 End: 11-03-2017 Patient encounter LADARIUS CANCINO [facility] Start: 11-03-2017 End: 11-03-2017 Patient encounter LADARIUS [facility] Procedures Date Procedure Procedure Detail Performing Clinician [...] Comment: URIN ALYSIS Performed By: #### 2 20204 #### [facility],[address] [place] [address] Start: 08-14-2001 History of coronary artery bypass grafting H/O coronary artery bypass surgery 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 Start: 02-07-2025 Referral to general surgeon [facility] Start: 02-06-2025 Application of inter mittent pneumatic compression device [facility] Start: 02-06-2025 Care planning and pr oblem solving actions [facility] Start: 02-06-2025 End: 02-06-2025 Care planning and problem solving actions [facility] Start: 2025 Thyroid stimulating hormone measurement [facility] Start: 2025 [facility] Start: 2025 Following clinical p athway protocol [facility] Start: 2025 Application of elastic bandage [facility] Start: 2025 Assessment of risk o f venous thromboembolism [facility] Start: 2025 Bacteria identified in Sputum by Culture [facility] Start: 2025 Consultation [facility] Start: 2025 Elevation of affecte d extremity [facility] Start: 2025 Fall prevention [facility] Start: 2025 Incentive spirometry [facility] Start: 2025 Inhalation therapy procedure [facility] Start: 2025 Insertion of cathete r into peripheral vein [facility] Start: 2025 Introduction of urin carol catheter [facility] Start: 2025 Measuring intake and output [facility] Start: 2025 Notification of physician [facility] Start: 2025 Oxygen therapy [facility] Start: [address] [facility] Start: 2025 Patient referral to dietitian [facility] Start: 2025 Providing care accor ding to standard [facility] Start: 2025 Provision of activit y privileges [facility] Start: 2025 Referral for physical therapy [facility] Start: 2025 Referral to brickmason apprentice [facility] Start: 2025 Referral to occupati onal therapist [facility] Start: 2025 Referral to service [facility] Start: [address] [facility] Start: 2025 [facility] Start: 02-04-2025 Verification routine [facility] Start: 02-04-2025 Partial thromboplast in time, activated [facility] Start: 02-04-2025 Prothrombin time [facility] Start: 02-04-2025 Respiratory pathogen s DNA and RNA panel - Respiratory specimen by RHIANNA with probe detection [facility] Start: 02-04-2025 Admission procedure [facility] Start: 02-04-2025 Continuous pulse oximetry [facility] Start: 02-04-2025 Dual pressure sponta neous ventilation support [facility] Start: 02-04-2025 End: 02-04-2025 [facility] Start: 02-04-2025 Bacteria identified in Blood by Culture Blood Culture [facility] Start: 02-04-2025 Bacteria identified in Urine by Culture Urine Culture [facility] Start: 02-04-2025 Blood culture Blood Culture [facility] Start: 02-04-2025 End: 02-04-2025 Evaluation of diagnostic study results [facility] Start: 12-13-[address] [facility] Start: 12-12-2024 Following clinical p athway protocol [facility] Start: 12-12-2024 Transfusion of blood product [facility] Start: 12-12-2024 Ambulation without limitation [facility] Start: 12-12-2024 Assessment of risk o f venous thromboembolism [facility] Start: 12-12-2024 Catheterization of vein [facility] Start: 12-12-2024 Elevation of affecte d extremity [facility] Start: 12-12-2024 Incentive spirometry [facility] Start: 12-12-2024 Inhalation therapy procedure [facility] Start: 12-12-2024 Insertion of cathete r into peripheral vein [facility] Start: 12-12-2024 Measuring intake and output [facility] Start: 12-12-2024 Notification of physician [facility] Start: 12-12-2024 Oxygen therapy [facility] Start: 12-12-[address] [facility] Start: 12-12-2024 Providing care accor ding to standard [facility] Start: 12-12-2024 Hospital admission, emergency, from emergency room, medical nature [facility] Start: 12-12-2024 Admission procedure [facility] Start: 12-12-2024 End: 12-12-2024 [facility] Alanine aminotransfe rase [Enzymatic activity/volume] in Serum or Plasma [facility] Albumin [Mass/volume ] in Serum or Plasma [facility] Alkaline phosphatase [Enzymatic activity/volume] in Serum or Plasma [facility] Anion gap in Serum or Plasma [facility] Basic metabolic 2008 panel with ionized calcium - Serum or Plasma [facility] Bilirubin, total measurement [facility] BUN/Creatinine ratio [facility] Calcium [Mass/volume ] in Serum or Plasma [facility] Carbon dioxide, tota l [Moles/volume] in [place] venous blood [facility] Cholesterol [Mass/vo lume] in Serum or Plasma [facility] Cholesterol in HDL [Mass/volume] in Serum or Plasma [facility] Creatinine [Mass/vol ume] in Serum or Plasma [facility] Erythrocyte mean cor puscular volume determination [facility] Glucose [Mass/volume ] in Serum or Plasma [facility] Hematocrit [Volume F raction] of Blood [facility] Hemoglobin [Mass/vol ume] in Blood [facility] INR in Blood by Coag ulation assay [facility] Leukocytes [#/volume] in Blood [facility] Low density lipoprot ein cholesterol measurement [facility] Mean corpuscular hem oglobin concentration determination [facility] Mean corpuscular hem oglobin determination [facility] Measurement of renal function [facility] Neutrophil count [facility] Neutrophil percent differential count [facility] Patient Education [facility] Work Phone: Patient referral [facility] Work Phone: Platelets [#/volume] in Blood [facility] Potassium measurement [facility] Procalcitonin [Mass/ volume] in Serum or Plasma by Immunoassay [facility] Red blood cell count [facility] Red cell distributio n width determination [facility] Serum chloride measurement [facility] Sodium measurement [facility] Total cholesterol:HD L ratio measurement [facility] Total protein measurement [facility] Triglycerides measurement [facility] Urea nitrogen [Mass/ volume] in Serum or Plasma [facility] Urine culture [facility] VLDL cholesterol measurement [facility] Payers Date Payer Category Payer Unknown [id number] 2024 Self-pay [id number] 1940 Unknown [id number] 2.16.84 0.1.578119.3.579.2.651 1940 Unknown [id number] 2.16.84 0.1.293668.3.579.2.651 1940 Unknown [id number] 2.16.84 0.1.369790.3.579.2.651 Unknown [id number] Unknown Unknown [facility] [employer] . [id number] Unknown [id number] 2.16.8 40.1.575791.3.579.2.462 Unknown [id number] 2.16.8 40.1.258917.3.579.2.462 Unknown [id number] 2.16.8 40.1.470639.3.579.2.462 Unknown [id number] 2.16.8 40.1.951635.3.579.2.462 Unknown [id number] 2.16.8 40.1.488971.3.579.2.462 Unknown [id number] 2.16.8 40.1.555139.3.579.2.462 Unknown [id number] 2.16.8 40.1.104221.3.579.2.462 Unknown [id number] 2.16.8 40.1.730187.3.579.2.462 Unknown [id number] 2.16.8 40.1.154192.3.579.2.462 Unknown [id number] 2.16.8 40.1.378613.3.579.2.462 Unknown [id number] 2.16.8 40.1.860890.3.579.2.462 Unknown [id number] 2.16.8 40.1.823354.3.579.2.462 Unknown [id number] 2.16.8 40.1.887953.3.579.2.462 Unknown [id number] 2.16.8 40.1.891821.3.579.2.462 Unknown [id number] 2.16.8 40.1.362916.3.579.2.462 Unknown [id number] 2.16.8 40.1.396372.3.579.2.462 Unknown [id number] 2.16.8 40.1.883060.3.579.2.462 Unknown [id number] 2.16.8 40.1.387332.3.579.2.462 Unknown [id number] 2.16.8 40.1.112712.3.579.2.462 Unknown [id number] 2.16.8 40.1.506435.3.579.2.462 Unknown [id number] 2.16.8 40.1.311924.3.579.2.462 Unknown [id number] 2.16.8 40.1.289020.3.579.2.462 Unknown [id number] 2.16.8 40.1.774166.3.579.2.462 Unknown [id number] 2.16.8 40.1.709581.3.579.2.462 Unknown [id number] 2.16.8 40.1.145053.3.579.2.462 Unknown [id number] 2.16.8 40.1.557317.3.579.2.462 Unknown [id number] 2.16.8 40.1.830135.3.579.2.462 Unknown [id number] 2.16.8 40.1.412810.3.579.2.462 Unknown [id number] 2.16.8 40.1.434632.3.579.2.462 Unknown [id number] 2.16.8 40.1.178622.3.579.2.462 Unknown [id number] 2.16.8 40.1.066008.3.579.2.462 Unknown [id number] 2.16.8 40.1.992797.3.579.2.462 Social History Date Type Detail Facility Start: 12-13-2021 End: 02-09-2022 Tobacco smoking status NHIS Unknown if ever smoked [facility] Work Phone: Start: 06-20-2019 With Family [facility] Start: 1940 Sex Assigned At Male [facility] Start: 07-14-2023 End: 04-02-2025 Tobacco smoking status NHIS Never smoked tobacco (finding) [facility] Start: 11-09-2024 End: 11-21-2024 Sex Male (finding) [facility] Sex Male [facility] Medical Equipment Procedure Code Equipment Code Equipment [...] IVELISSE 3GRM HEMOSTAT ABS FDA Start: 06-20-2019 ([id number]) Drug-eluting cor onary artery stent, bioabsorbable-polymer -coated ()[id number] FDA Start: 03-29-2022 Femoral vessel s uture implantation set ()[id number] FDA Start: 03-29-2022 Goals Date Patient Goal Desired Activity /State Functional Status Date Assessment Result Facility 02-08-2025 Functional status Ambulates [facility] Work Phone: 12-13-2024 Functional status Activity Ability Indepe ndent [facility] Work Phone: 12-13-2024 Functional status Patient Activity Ambula pat [facility] Work Phone: Mental Status Date Assessment Result Facility 02-08-2025 Cognitive function Voice/Name [facility] Work Phone: 02-04-2025 Cognitive function Level Of Cons ciousness Awake;Alert;Appropriate;Follo ws Commands [facility] Work Phone: 12-13-2024 Cognitive function Voice/Name [facility] Work Phone: Clinical Notes 08-09-2024 to 04-02-2025 Note Date & Type Note Facility 04-02-2025 Radiology Diagnostic study note [facility] Imaging Services [address] [place], [place] [address] Chest PA and Lateral MR#: [id number] Acct: [id number] Name: FLORIN VARGAS Rep #: [id number] : 1940 M 85 From: Pancho Day MD PCP: Dr. Pedro Gonzalez MD Status: REG ER Study:Chest PA and Lateral Date of Exam: 04/02/25 Exam# [id number] Ordering Dr: Wesley Montes MD PROCEDURE: CHEST [...] seen, right worse than left. Reading Location: [place] [address] CC: Dr. Pedro Gonzalez MD; Dr. Dionne Montes MD ~ Office Clin Asst: Signed [facility] 02-08-2025 Progress note Note Date/Time February 08, 2025 1:16pm [facility] Medical Records Department [address] [place] [id number] Progress Note - Surgery 02/08/25 1307 MR#: [id number] Acct: [id number] Name: FLORIN VARGAS Rep #:[id number] : 1940 85 From: Glen Haywood MD PCP: Dr. Pedro Gonzalez MD Status:ADM IN Location: [place] [address] Subjective Subjective Patient seen and evaluated on [...] % (Auto) 51.1, Lymph % (Auto) 38.6, [place] % (Auto) 6.6, Eos % (Auto) 3.1, [...] Cosigner Signature (if applicable): CC: ~ Signed [facility] Work Phone: 1(337) 418-853706-28-[address] [facility] Medical Records Department [address] [place] [address] Discharge Summary 02/08/25 1418 MR#: [id number] Acct: [id number] Name: FLORIN VARGAS Rep #:[id number] : 1940 85 From: Yeny Gabriel DO PCP: Dr. Pedro Gonzalez MD Status:ADM IN Location: [place] [address] Providers Date of Admission: 02/04/25 Primary Care Physician: Dr. Pedro Gonzalez MD Consultations 02/05/25 00:02 Consult: Cardiology Routine Consulting Provider: Cj Gardiner Reason for Consult: HF Exac, elevated troponins EMERGENT Consult: No MD Notified: Yes Date Notified: 02/04/25 Time Notified: 22:45 Method of Notification: Text Consult: Slag [employer]er / Pulmonary Medicine Routine Consulting Provider: Intensivists/Pulmonary [...] who presented to the emergency department at [facility] on 02/04/2025 with a chief complaint of [...] body habitus Constitutional Narrative: Morbidly obese, white Presy[place]ian male, reclining, family at bedside, appears well, [...] % (Auto) 51.1, Lymph % (Auto) 38.6, [place] % (Auto) 6.6, Eos % (Auto) 3.1, [...] Self Care Charges/Coding Visit Charges Inpatient E&M: 37434 Disch Hosp >30min 02/08/25 1441 Cosigner Signature (if applicable): CC: Dr. Cj Gardiner MD; Dr. Pedro Gonzalez MD; Dr. Yeny Gabriel DO; Dr. Glen Haywood MD~ Signed [facility]06-28[facility]20[facility] Progress note Author Criss Castro [facility] Note Date/Time February 08, 2025 12:1 0pm [facility] Medical Records Department [address] [place] [address] Progress Note - Cardiology 02/08/25 1209 MR#: [id number] Acct: [id number] Name: FLORIN VARGAS Rep #:[id number] : 1940 85 From: Criss Castro MD PCP: Dr. Pedro Gonzalez MD Status:ADM IN Location: [place] [address] Subjective Subjective Patient feels very well. Ambulated [...] % (Auto) 51.1, Lymph % (Auto) 38.6, [place] % (Auto) 6.6, Eos % (Auto) 3.1, [...] % (Auto) 51.1, Lymph % (Auto) 38.6, [place] % (Auto) 6.6, Eos % (Auto) 3.1, [...] IMPRESSION: Abnormal gallbladder ejection fraction. Reading Location: [facility] Physical Exam Narrative Comfortable. No apparent distress. [...] Cosigner Signature (if applicable): CC: ~ Signed [facility] Work Phone: 1(997) 954-867306-28-[address] [facility] Medical Records Department [address] [place] [address] Progress Note - Surgery 02/08/25 1307 MR#: [id number] Acct: [id number] Name: FLORIN VARGAS Rep #:[id number] : 1940 85 From: Glen Haywood MD PCP: Dr. Pedro Gonzalez MD Status:ADM IN Location: [place] [address] Subjective Subjective Patient seen and evaluated on [...] Std Deviation 46.5 H, RDW Coeff of Jeanro 14.6, Plt Count 124 L, MPV11.2, Immature Gran % (Auto) 0.300, Neut % (Auto) 51.1, Lymph % (Auto) 38.6, [place] % (Auto) 6.6, Eos % (Auto) 3.1, [...] Cosigner Signature (if applicable): CC: ~ Signed [facility]06-28-[address] [facility] Medical Records Department [address] [place] [address] Progress Note - Cardiology 02/08/25 1209 MR#: [id number] Acct: [id number] Name: FLORIN VARGAS Rep #:[id number] : 1940 85 From: Criss Castro MD PCP: Dr. Pedro Gonzalez MD Status:ADM IN Location: [place] [address] Subjective Subjective Patient feels very well. Ambulated [...] % (Auto) 51.1, Lymph % (Auto) 38.6, [place] % (Auto) 6.6, Eos % (Auto) 3.1, [...] % (Auto) 51.1, Lymph % (Auto) 38.6, [place] % (Auto) 6.6, Eos % (Auto) 3.1, [...] IMPRESSION: Abnormal gallbladder ejection fraction. Reading Location: [id number] Physical Exam Narrative Comfortable. No apparent distress. [...] Cosigner Signature (if applicable): CC: ~ Signed [facility]06-27-2025 Consult note Author Glen Haywood [facility] Note Date/Time February 07, 2025 5:21 pm [facility] Medical Records Department [address] [place] [address] [place] [address] Consultation - Surgical 02/07/25 1704 MR#: [id number] Acct: [id number] Name: FLORIN VARGAS Rep #:[id number] : 1940 85 From: Glen Haywood MD PCP: Dr. Pedro Gonzalez MD Status:ADM IN Location: [place] [address] Assessment & Plan Assessment/Plan (1) Gallbladder anomaly: [...] a 85 M who was admitted to [facility] several days ago with complaints of worsening shortness of breath, cough and general weakness/malaise. Patient does have a history of heart failure with a very low ejection fraction. She has had a previous cardiac surgery. Apparentlyhe was feeling unwell for several days prior to presenting to the emergency department. He was feeling lightheaded and short of breath. 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 White count has remained normal [facility] Medical History GI treated with BiPAP Valvular heart disease HTN (hypertension) CAD (coronary artery disease) HFrEF (heart failure with reduced ejection fraction) Daytime hypersomnolence Nonrheumatic aortic (valve) stenosis Hyperlipidemia Atherosclerotic heart disease of [place] coronary artery without angina pectoris Atherosclerosis of [...] 6 current occupational status: employed current occupation: [employer] current occupational exposures/hazards: No pets and [...] % (Auto) 56.9, Lymph % (Auto) 31.2, [place] % (Auto) 9.8, Eos % (Auto) 1.1, [...] IMPRESSION: Abnormal gallbladder ejection fraction. Reading Location: [facility] Charges/Coding Visit Charges Inpatient E&M: 18286 Init Hosp 02/07/25 1721 <Electronically signed by Glen Haywood MD> Cosigner Signature (if applicable): CC: Dr. eRa Cancino MD; Dr. Pedro Gonzalez MD~ Signed [facility] Work Phone: 1(746) 762-847006-27-[address] [facility] Medical Records Department [address] [place] [address] Consultation - Surgical 02/07/25 1702 MR#: [id number] Acct: [id number] Name: FLORIN VARGAS Rep #:[id number] : 1940 85 From: Glen Haywood MD PCP: Dr. Pedro Gonzalez MD Status:ADM IN Location: [place] [id number]- Assessment & Plan Assessment/Plan (1) Gallbladder anomaly: [...] a 85 M who was admitted to [facility] several days ago with complaints of worsening shortness of breath, cough and general weakness/malaise. Patient does have a history of heart failure with a very low ejection fraction. She has had a previous cardiac surgery. Apparentlyhe was feeling unwell for several days prior to presenting to the emergency department. Hewas feeling lightheaded and short of breath. 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 White count has remained normal [facility] [facility] Medical History GI treated with BiPAP Valvular heart disease HTN (hypertension) CAD (coronary artery disease) HFrEF (heart failure with reduced ejection fraction) Daytime hypersomnolence Nonrheumatic aortic (valve) stenosis Hyperlipidemia Atherosclerotic heart disease of big sandy coronary artery without angina pectoris Atherosclerosis of [...] % (Auto) 56.9, Lymph % (Auto) 31.2, [place] % (Auto) 9.8, Eos % (Auto) 1.1, [...] IMPRESSION: Abnormal gallbladder ejection fraction. Reading Location: [facility] Charges/Coding Visit Charges Inpatient E&M: 37295 Init Hosp L3 02/07/25 1721 Cosigner Signature (if applicable): CC: Dr. Rea Cancino MD; Dr. Pedro Gonzalez MD~ Signed [facility]06-27-2025 Progress note Author Pedro Galvan [facility] Note Date/Time February 07, 2025 1:[address] [facility] Medical Records Department [address] [place] [address] Progress Note - Hospitalist 02/07/25 0836 MR#: [id number] Acct: [id number] Name: FLORIN VARGAS Rep #:[id number] : 1940 85 From: Pedro Galvan DO PCP: Dr. Pedro Gonzalez MD Status:ADM IN Location: [place] [address]- Reason for Visit Reason for Visit: Diagnoses [...] % (Auto) 56.9, Lymph % (Auto) 31.2, [place] % (Auto) 9.8, Eos % (Auto) 1.1, [...] at bedside. Charges/Coding Visit Charges Inpatient E&M: 52650 Subs Hosp L2 02/07/25 2253 <Electronically signed by Pedro Jopperi DO> Cosigner Signature (if applicable): CC: ~ Signed [facility] Work Phone: 1(326) 941-287506-27-[address] [facility] Medical Records Department [address] [place] [address] Progress Note - Hospitalist 02/07/25835 MR#: [id number] Acct: [id number] Name: FLORIN VARGAS Rep #:[id number] : 1940 85 From: Pedro Galvan DO PCP: Dr. Pedro Gonzalez MD Status:ADM IN Location: [place] [address] Reason for Visit Reason for Visit: Diagnoses [...] % (Auto) 56.9, Lymph % (Auto) 31.2, [place] % (Auto) 9.8, Eos % (Auto) 1.1, [...] at bedside. Charges/Coding Visit Charges Inpatient E&M: 04795 Subs Hosp L2 02/07/25 135 Cosigner Signature (if applicable): CC: ~ Signed [facility]06-27-2025 Nuclear medicine Diagnostic study note [facility] Imaging Services [address] [place], [place] [address] Hepatobilliary Img w/Pharm Int MR#: [id number] Acct: [id number] Name: FLORIN VARGAS Rep #: [id number] : 1940 M 85 From: Gibson Esparza MD PCP: Dr. Pedro Gonzalez MD Status: ADM IN Study:Hepatobilliary Img w/Pharm Int Date of Exam: 02/07/25 Exam# [id number] Ordering Dr: Pedro Galvan DO PROCEDURE: HEPATOBILLIARY [...] IMPRESSION: Abnormal gallbladder ejection fraction. Reading Location: [facility] CC: Dr. Rea Cancino MD; Dr. Pedro Galvan DO; Dr. Pedro Gonzalez MD ~ Office Clin Asst: Signed [facility]06-27-2025 Progress note Author Criss Castro [facility] Note Date/Time February 07, 2025 9:[address] [facility] Medical Records Department [address] [place] [address] Progress Note - Cardiology 02/07/2556 MR#: [id number] Acct: [id number] Name: FLORIN VARGAS Rep #:[id number] : 1940 85 From: Criss Castro MD PCP: Dr. Pedro Gonzalez MD Status:ADM IN Location: [place] [address] Subjective Subjective Feeling well. Denies any complaints [...] % (Auto) 56.9, Lymph % (Auto) 31.2, [place] % (Auto) 9.8, Eos % (Auto) 1.1, [...] Neut % (Auto)56.9, Lymph % (Auto) 31.2, [place] % (Auto) 9.8, Eos % (Auto) 1.1, [...] Cosigner Signature (if applicable): CC: ~ Signed [facility] Work Phone: 1(715) 116-641406-27-[address] [facility] Medical Records Department [address] [place] [address] Progress Note - Cardiology 02/07/25 0956 MR#: [id number] Acct: [id number] Name: FLORIN VARGAS Rep #:[id number] : 1940 85 From: Criss Castro MD PCP: Dr. Pedro Gonzalez MD Status:ADM IN Location: [place] [address] Subjective Subjective Feeling well. Denies any complaints [...] % (Auto) 56.9, Lymph % (Auto) 31.2, [place] % (Auto) 9.8, Eos % (Auto) 1.1, [...] Neut % (Auto)56.9, Lymph % (Auto) 31.2, [place] % (Auto) 9.8, Eos % (Auto) 1.1, [...] Cosigner Signature (if applicable): CC: ~ Signed [facility]06-26-2025 Progress note Author Pedro Galvan [facility] Note Date/Time February 06, 2025 12:5 3pm [facility] Medical Records Department [address] [place] [address] Progress Note - Hospitalist 02/06/25704 MR#: [id number] Acct: [id number] Name: FLORIN VARGAS Rep #:[id number] : 1940 85 From: ePdro Galvan DO PCP: Dr. Pedro Gonzalez MD [...] % (Auto) 68.2, Lymph % (Auto) 23.0, [place] % (Auto) 8.2, Eos % (Auto) 0.0, [...] volume overload. Charges/Coding Visit Charges Inpatient E&M: 69981 Subs Hosp L3 02/06/25 1253 <Electronically signed by Pedro Galvan DO> Cosigner Signature (if applicable): CC: ~ Signed [facility] Work Phone: 1(828) 552-212706-26-[address] [facility] Medical Records Department [address] [place] [address] Progress Note - Hospitalist 02/06/25 0705 MR#: [id number] Acct: [id number] Name: FLORIN VARGAS Rep #:[id number] : [...] % (Auto) 68.2, Lymph % (Auto) 23.0, [place] % (Auto) 8.2, Eos % (Auto) 0.0, [...] volume overload. Charges/Coding Visit Charges Inpatient E&M: 88184 Subs Hosp L3 02/06/25 1253 Cosigner Signature (if applicable): CC: ~ Signed [facility]06-26-2025 Progress note Author Criss Castro [facility] Note Date/Time February 06, 2025 8:46 am [facility] Medical Records Department [address] [place] [address] Progress Note - Cardiology 02/06/25 0839 MR#: [id number] Acct: [id number] Name: FLORIN VARGAS Roz Rep #:[id number] [...] % (Auto) 68.2, Lymph % (Auto) 23.0, [place] % (Auto) 8.2, Eos % (Auto) 0.0, [...] % (Auto) 68.2, Lymph % (Auto) 23.0, [place] % (Auto) 8.2, Eos % (Auto) 0.0, [...] Cosigner Signature (if applicable): CC: ~ Signed [facility] Work Phone: 1(707) 909-743206-26-2025 Progress note Author Lang Guzman [facility] Note Date/Time February 06, 2025 8:05 am [facility] Medical Records Department [address] [place] [address] Progress Note - Slag Mixer 02/06/25 0759 MR#: [id number] Acct: [id number] Name: FLORIN VARGAS Rep #:[id number] : [...] noted above. This note was generated with SnapNames dictation software. It may contain incorrectwords, spelling, [...] % (Auto) 68.2, Lymph % (Auto) 23.0, [place] % (Auto) 8.2, Eos % (Auto) 0.0, [...] affect normal Charges/Coding Visit Charges Inpatient E&M: 48732 Subs Hosp L2 02/06/25 0805 <Electronically signed by Lang Guzman DO> Cosigner Signature (if applicable): CC: ~ Signed [facility] Work Phone: 1(342) 350-392006-26-[address] [facility] Medical Records Department [address] [place] [address] Progress Note - Cardiology 02/06/25 0839 MR#: [id number] Acct: [id number] Name: FLORIN VARGAS Rep #:[id number] : [...] % (Auto) 68.2, Lymph % (Auto) 23.0, [place] % (Auto) 8.2, Eos % (Auto) 0.0, [...] % (Auto) 68.2, Lymph % (Auto) 23.0, [place] % (Auto) 8.2, Eos % (Auto) 0.0, [...] Cosigner Signature (if applicable): CC: ~ Signed [facility]06-26-[address] [facility] Medical Records Department [address] [place] [address] Progress Note - Slag Mixer 02/06/25 0759 MR#: [id number] Acct: [id number] Name: FLORIN VARGAS Rep #:[id number] : [...] % (Auto) 68.2, Lymph % (Auto) 23.0, [place] % (Auto) 8.2, Eos % (Auto) 0.0, [...] affect normal Charges/Coding Visit Charges Inpatient E&M: 48051 Subs Hosp L2 02/06/25 0805 Cosigner Signature (if applicable): CC: ~ Signed [facility]06-25-2025 Consult note Author Cj Gardiner [facility] Note Date/Time 2025 8:47 pm [facility] Medical Records Department [address] [place] [address] Consultation - Cardiology 02/05/252036 MR#: [id number] Acct: [id number] Name: FLORIN VARGAS Rep #:[id number] : [...] proximal, and mid RCA on 11/22/2017 at [facility], previous CAB[facility] and redo CABG at [facility] in 2001 with SVG to LCX and SVG toRPDA, aortic valve stenosis s/p TAVR on 12/27/2017 at [facility] with #26mm Buckley Jennifer S3 valve, mitral valve regurgitation, and hyperlipidemia. He underwent an echocardiogram in February 2022, which demonstrated a reduced ejection fraction of 35%. Which led him to a cardiac catheterization which demonstrated big sandy multivessel coronary artery disease, his GRAJEDA to LAD was patent, he did have an 85% stenosis in his SVG to OM1, and chronically occluded SVG to RCA. He underwent PCI with a drug-eluting stent to his SVG to OM1. Repeat echocardiogram in July 2022 showed ejection fraction of 45%. He was evaluated at [facility] for CHF exacerbation in December 2024. Echocardiogram [...] or paroxysmal nocturnal dyspnea or pedal edema. [facility] Medical History GI treated with BiPAP Valvular heart disease HTN (hypertension) CAD (coronary artery disease) HFrEF (heart failure with reduced ejection fraction) Daytime hypersomnolence Nonrheumatic aortic (valve) stenosis Hyperlipidemia Atherosclerotic heart disease of big sandy coronary artery without angina pectoris Atherosclerosis of [...] (Auto) 73.9 H, Lymph % (Auto) 16.4 L,[place] % (Auto) 9.1, Eos % (Auto) 0.0, [...] (Auto)73.9 H, Lymph % (Auto) 16.4 L, [place] % (Auto) 9.1, Eos % (Auto) 0.0, [...] 02/04/25 20:37 IMPRESSION: 1. Trace pleural effusions, oidps-vpdjnde-cisp-left. 2. Gallbladder wall thickening, without radiodense stones. [...] malignancy per Fleischner society guidelines. Reading Location: [id number] Gallbladder Ultrasound 02/04/25 22:47 IMPRESSION: 1. Limited evaluation due to incomplete distention of the gallbladder. No radiodense stones are seen. There is mild wall thickening, similar to same day CT. 2. Findings suggestive of hepatic steatosis. Reading Location: [id number] Echocardiogram 02/05/25 00:02 Interpretation Summary There is [...] Cancino MD; Dr. Pedro Gonzalez MD~ Signed [facility] Work Phone: 1(286) 486-731806-25-[address] [facility] Medical Records Department [address] [place] [address] Consultation - Cardiology 02/05/252036 MR#: [id number] Acct: [id number] Name: FLORIN VARGAS Rep #:[id number] : [...] proximal, and mid RCA on 11/22/2017 at [facility], previous CABG with [facility] and redo CABG at [facility] in 2001 with SVG to LCX and SVG toRPDA, aortic valve stenosis s/p TAVR on 12/27/2017 at [facility] with #26mm Buckley Jennifer S3 valve, mitral valve regurgitation, and hyperlipidemia. He underwent an echocardiogram in February 2022, which demonstrated a reduced ejection fraction of 35%.Which led him to a cardiac catheterization which demonstrated big sandy multivessel coronary artery disease, his GRAJEDA to LAD was patent, he did have an 85% stenosis in his SVG to OM1, and chronically occluded SVG to RCA. He underwent PCI with a drug-eluting stent to his SVG to OM1. Repeat echocardiogram in July 2022 showed ejection fraction of 45%. He was evaluated at [facility] for CHF exacerbation in December 2024. Echocardiogram [...] or paroxysmal nocturnal dyspnea or pedal edema. [facility] Medical History GI treated with BiPAP Valvular heart disease HTN (hypertension) CAD (coronary artery disease) HFrEF (heart failure with reduced ejection fraction) Daytime hypersomnolence Nonrheumatic aortic (valve) stenosis Hyperlipidemia Atherosclerotic heart disease of big sandy coronary artery without angina pectoris Atherosclerosis of [...] 6 current occupational status: employed current occupation: [employer] current occupational exposures/hazards: No pets and [...] (Auto) 73.9 H, Lymph % (Auto) 16.4 L,[place] % (Auto) 9.1, Eos % (Auto) 0.0, [...] (Auto)73.9 H, Lymph % (Auto) 16.4 L, [place] % (Auto) 9.1, Eos % (Auto) 0.0, Baso % (Auto) 0.2, Absolute Neuts (auto) 3.4, Nucleated RBC % 0, [id number] L, Potassium 3.5, Chloride 96 L, Carbon [...] 02/04/25 20:37 IMPRESSION: 1. Trace pleural effusions, qlegz-juwnded-qiwj-left. 2. Gallbladder wall thickening, without radiodense stones. [...] Findings suggestive of hepatic steatosis. Reading Location: [facility] Echocardiogram 02/05/25 00:02 Interpretation Summary There is moderate global hypokinesis of the left ventricle. Mildly dilated left ventricle. The left ventricular ejection fraction is 25 %. Bioprosthetic aortic valve. Contrast injection was performed. Ordering Physician: Rea Cancino Referring Physician: Rea Cancino Performed By: Tori Daniel RDCS 02/05/252046 Cosigner Signature (if applicable): CC: Dr. Rea Cancino MD; Dr. Pedro Gonzalez MD~ Signed [facility]06-25-2025 Progress note Author Pedro Galvan [facility] Note Date/Time 2025 1:[address] [facility] Medical Records Department [address] [place] [address] Progress Note - Hospitalist 02/05/25 0654 MR#: [id number] Acct: [id number] Name: FLORIN VARGAS Rep #:[id number] : [...] Sens 108 H*, [place] [address] H, Total Protein 5.9, Albumin 3.5, Globulin 2.4, Albumin/Globulin Ratio 1.5 02/04/25 18:30: WBC 5.7, RBC 3.63 L, Hgb 10.6 L, Hct 31.0 L, MCV 85.4, MCH 29.2,MCHC 34.2, RDW Std Deviation 43.8, RDW Coeff of Jenaro 13.9, Plt Count 82 L, MPV 11.4, Immature Gran % (Auto) 0.500, Neut % (Auto) 79.6 H, Lymph % (Auto) 12.3 L,[place] % (Auto) 7.4, Eos % (Auto) 0.0, Baso % (Auto) 0.2, Absolute Neuts (auto) 4.5, Absolute Lymphs (auto) 0.70 L, Nucleated RBC % 0, Differential Comment SCANNED, Platelet Estimate MOD DEC, PT 16.0 H, INR 1.3, APTT 32.2, Lactic Acid 1.3 02/04/25 18:58: Urine Color Yellow, Urine Clarity Sl. Cloudy, Urine pH 5.0, Ur Specific Bricelyn 1.020, Urine Protein 30 H, Urine Glucose [...] (Auto) 73.9 H, Lymph % (Auto) 16.4 L,[place] % (Auto) 9.1, Eos % (Auto) 0.0, [...] seen with cardiogenic pulmonary edema. Reading Location: [id number] Chest/Abdomen/Pelvis CT 02/04/25 20:37 IMPRESSION: 1. Trace pleural effusions, msmze-cubrgal-hpsi-left. 2. Gallbladder wall thickening, without radiodense stones. [...] malignancy per Fleischner society guidelines. Reading Location: [id number] Gallbladder Ultrasound 02/04/25 22:47 IMPRESSION: 1. Limited evaluation due to incomplete distention of the gallbladder. No radiodense stones are seen. There is mild wall thickening, similar to same day CT. 2. Findings suggestive of hepatic steatosis. Reading Location: [facility] Rhythm Strip Rhythm Strip: Sinus Rhythm Rate: [...] with heparin. Charges/Coding Visit Charges Inpatient E&M: 38404 Subs Hosp L3 02/05/25 1357 <Electronically signed by Pedro Galvan DO> Cosigner Signature (if applicable): CC: ~ Signed [facility] Work Phone: 1(402) 518-957706-25-[address] [facility] Medical Records Department [address] [place] [address] Progress Note - Hospitalist 02/05/25 0654 MR#: [id number] Acct: [id number] Name: FLORIN VARGAS Rep #:[id number] : [...] Sens 108 H*, [place] [address] H, Total Protein 5.9,Albumin 3.5, Globulin 2.4, Albumin/Globulin Ratio 1.5 02/04/25 18:30: WBC 5.7, RBC 3.63 L, Hgb 10.6 L, Hct 31.0 L, MCV 85.4, MCH 29.2,MCHC 34.2, RDW Std Deviation 43.8, RDW Coeff of Jenaro 13.9, Plt Count 82 L, MPV 11.4, Immature Gran % (Auto) 0.500, Neut % (Auto) 79.6 H, Lymph % (Auto) 12.3 L,[place] % (Auto) 7.4, Eos % (Auto) 0.0, Baso % (Auto) 0.2, Absolute Neuts (auto) 4.5, Absolute Lymphs (auto) 0.70 L, Nucleated RBC % 0, Differential Comment SCANNED, Platelet Estimate MOD DEC, PT 16.0 H, INR 1.3, APTT 32.2, Lactic Acid 1.3 02/04/25 18:58: Urine Color Yellow, Urine Clarity Sl. Cloudy, Urine pH 5.0, Ur Specific Bricelyn 1.020, Urine Protein 30 H, Urine Glucose [...] (Auto) 73.9 H, Lymph % (Auto) 16.4 L,[place] % (Auto) 9.1, Eos % (Auto) 0.0, [...] seen with cardiogenic pulmonary edema. Reading Location: [id number] Chest/Abdomen/Pelvis CT 02/04/25 20:37 IMPRESSION: 1. Trace pleural effusions, yhtcg-rcbbzkc-bjzq-left. 2. Gallbladder wall thickening, without radiodense stones. [...] Findings suggestive of hepatic steatosis. Reading Location: [facility] Rhythm Strip Rhythm Strip: Sinus Rhythm Rate: [...] with heparin. Charges/Coding Visit Charges Inpatient E&M: 11916 [facility] Hosp L3 02/05/25 1357 Cosigner Signature (if applicable): CC: ~ Signed [facility]06-[facility]-2025 Consult note Author Ron Vegas [facility] Note Date/Time 2025 1:[address] [facility] Medical Records Department [address] [place] [address] Consultation - Slag Mixer 02/05/25 0121 MR#: [id number] Acct: [id number] Name: FLORIN VARGAS Rep #:[id number] : [...] yielded ~600cc uop already. He feels better. [facility] Medical History GI treated with BiPAP Valvular heart disease HTN (hypertension) CAD (coronary artery disease) HFrEF (heart failure with reduced ejection fraction) Daytime hypersomnolence Nonrheumatic aortic (valve) stenosis Hyperlipidemia Atherosclerotic heart disease of big sandy coronary artery without angina pectoris Atherosclerosis of [...] 6 current occupational status: employed current occupation: [employer] current occupational exposures/hazards: No pets and [...] 10 mls/hr 02/05/25 00:02 CONT INF .Q25H [facility] Protocol As Directed Sodium Chloride 250 mls @ 15 mls/hr 02/05/25 00:28 IV .[id number] PRN Saline Flush Sodium Chloride 250 mls @ 15 mls/hr 02/05/25 00:28 IV .[id number] PRN Additional IVPB Infusion Norepinephrine Bitartrate 8 mg 250 mls @ 9.375 mls/hr 02/05/25 01:10 / Sodium Chloride CONT INF .[id number] [facility] Protocol 5 MCG/MIN Melatonin 3 mg 02/05/25 [...] Tamsulosin Hcl 0.4 Mg Capsule PO QHS [facility] Physical Exam Const alert, oriented x3 and [...] Sens 108 H*, [place] [address] H, Total Protein 5.9, Albumin 3.5, Globulin 2.4, Albumin/Globulin Ratio 1.5 02/04/25 18:30: WBC 5.7, RBC 3.63 L, Hgb 10.6 L, Hct 31.0 L, MCV 85.4, MCH 29.2,MCHC 34.2, RDW Std Deviation 43.8, RDW Coeff of Jenaro 13.9, Plt Count 82 L, MPV 11.4, Immature Gran % (Auto) 0.500, Neut % (Auto) 79.6 H, Lymph % (Auto) 12.3 L,[place] % (Auto) 7.4, Eos % (Auto) 0.0, Baso % (Auto) 0.2, Absolute Neuts (auto) 4.5, Absolute Lymphs (auto) 0.70 L, Nucleated RBC % 0, Differential Comment SCANNED, Platelet Estimate MOD DEC, PT 16.0 H, INR 1.3, APTT 32.2, Lactic Acid 1.3 02/04/25 18:58: Urine Color Yellow, Urine Clarity Sl. Cloudy, Urine pH 5.0, Ur Specific Bricelyn 1.020, Urine Protein 30 H, Urine Glucose [...] 02/04/25 20:37 IMPRESSION: 1. Trace pleural effusions, qrhxg-vpqledx-zanp-left. 2. Gallbladder wall thickening, without radiodense stones. [...] malignancy per Fleischner society guidelines. Reading Location: [facility] Gallbladder Ultrasound 02/04/25 22:47 IMPRESSION: 1. Limited evaluation due to incomplete distention of the gallbladder. No radiodense stones are seen. There is mild wall thickening, similar to same day CT. 2. Findings suggestive of hepatic steatosis. Reading Location: [facility] CT C/A/P reviewed in person with family: [...] Cancino MD; Dr. Pedro Gonzalez MD~ Signed [facility] Work Phone: 1(114) 296-890206-25-[address] [facility] Medical Records Department [address] [place] [address] Consultation - Slag Mixer 02/05/25 0121 MR#: [id number] Acct: [id number] Name: FLORIN VARGAS Rep #:[id number] : [...] has yielded ~600cc uop already. Hefeels better. [facility] Medical History GI treated with BiPAP Valvular heart disease HTN (hypertension) CAD (coronary artery disease) HFrEF (heart failure with reduced ejection fraction) Daytime hypersomnolence Nonrheumatic aortic (valve) stenosis Hyperlipidemia Atherosclerotic heart disease of big [place] coronary artery without angina pectoris Atherosclerosis of [...] mls @ 15 mls/hr 02/05/25 00:28 IV .[id number] PRN Saline Flush Sodium Chloride 250 mls @ 15 mls/hr 02/05/25 00:28 IV .[id number] PRN Additional IVPB Infusion Norepinephrine Bitartrate 8 mg 250 mls @ 9.375 mls/hr 02/05/25 01:10 / Sodium Chloride CONT INF .[id number] [facility] Protocol 5 MCG/MIN Melatonin 3 mg 02/05/25 [...] Tamsulosin Hcl 0.4 Mg Capsule PO QHS [facility] Physical Exam Const alert, oriented x3 and [...] Sens 108 H*, [place] [address] H, Total Protein 5.9,Albumin 3.5, Globulin 2.4, Albumin/Globulin Ratio 1.5 02/04/25 18:30: WBC 5.7, RBC 3.63 L, Hgb 10.6 L, Hct 31.0 L, MCV 85.4, MCH 29.2,MCHC 34.2, RDW Std Deviation 43.8, RDW Coeff of Jenaro 13.9, Plt Count 82 L, MPV 11.4, Immature Gran % (Auto) 0.500, Neut % (Auto) 79.6 H, Lymph % (Auto) 12.3 L,[place] % (Auto) 7.4, Eos % (Auto) 0.0, Baso % (Auto) 0.2, Absolute Neuts (auto) 4.5, Absolute Lymphs (auto) 0.70 L, Nucleated RBC % 0, Differential Comment SCANNED, Platelet Estimate MOD DEC, PT 16.0 H, INR 1.3, APTT 32.2, Lactic Acid 1.3 02/04/25 18:58: Urine Color Yellow, Urine Clarity Sl. Cloudy, Urine pH 5.0, Ur Specific Bricelyn 1.020, Urine Protein 30 H, Urine Glucose [...] seen with cardiogenic pulmonary edema. Reading Location: [facility] Chest/Abdomen/Pelvis CT 02/04/25 20:37 IMPRESSION: 1. Trace pleural effusions, atolm-azijlyx-zwqn-left. 2. Gallbladder wall thickening, without radiodense stones. [...] malignancy per Fleischner society guidelines. Reading Location: [id number] Gallbladder Ultrasound 02/04/25 22:47 IMPRESSION: 1. Limited evaluation due to incomplete distention of the gallbladder. No radiodense stones are seen. There is mild wall thickening, similar to same day CT. 2. Findings suggestive of hepatic steatosis. Reading Location: [facility] CT C/A/P reviewed in person with family: [...] Cancino MD; Dr. Pedro Gonzalez MD~ Signed [facility]06-25-2025 Discharge summary Author Maryanne [facility] Note Date/Time February 04, 2025 11:2 8pm [facility] Medical Records Department [address] [place] [address] Emergency Department Summary 02/04/25 MR#: [id number] Acct: [id number] Name: FLORIN VARGAS Rep #:[id number] : [...] daily andlisinopril 2.5 mg daily today. PFSH [facility] Medical History GI treated with BiPAP Valvular heart disease HTN (hypertension) CAD (coronary artery disease) HFrEF (heart failure with reduced ejection fraction) Daytime hypersomnolence Nonrheumatic aortic (valve) stenosis Hyperlipidemia Atherosclerotic heart disease of big [place] coronary artery without angina pectoris Atherosclerosis of [...] 6 current occupational status: employed current occupation: [employer] current occupational exposures/hazards: No pets and [...] 79.6 H Lymph % (Auto) 12.3 L [place] % (Auto) 7.4 Eos % (Auto) 0.0 [...] [place] 4[place] [address] H Total Protein 5.9 Albumin 3.5 Globulin 2.4 Albumin/Globulin Ratio 1.5 Urine Color Yellow Urine Clarity Sl. Cloudy Urine pH 5.0 Ur Specific Bricelyn 1.020 Urine Protein 30 H Urine Glucose [...] (Auto) Neut % (Auto) Lymph % (Auto) [place] % (Auto) Eos % (Auto) Baso % [...] Color Urine Clarity Urine pH Ur Specific Bricelyn Urine Protein Urine Glucose (UA) Urine Ketones [...] seen with cardiogenic pulmonary edema. Reading Location: [facility] Chest/Abdomen/Pelvis CT 02/04/25 20:37 IMPRESSION: 1. Trace pleural effusions, nmckl-rpsyjzd-ubpz-left. 2. Gallbladder wall thickening, without radiodense stones. [...] malignancy per Fleischner society guidelines. Reading Location: [facility] Rhythm Strip Rhythm Strip: Sinus Rhythm Rate: 100 Ectopy: PVC(s) EKG Initial EKG: Attestation: I personally reviewed and interpreted this EKG as follows: Interpretation: Sinus Rhythm Comments: Normal sinus rhythm at 100 beats per minutes with first-degree AV block HI interval 230 Frequent PVCs presents as well [...] MD [Primary Care Provider] - Print Language: Bolivian Disposition Disposition: Acute Care Hospital [facility] What to do if you have Problems For any increased pain, shortness of breath, bleeding, nausea or vomiting, chestpain, or any unexpected problems, contact your Primary Care Provider. Call [facility] ([phone]) or report to the closest Emergency Room. Call 911 if necessary. 02/04/252327 <Electronically signed by Maryanne Emanuel DO> Cosigner Signature (if applicable): CC: Dr. Pedro Gonzalez MD ~ Signed [facility] Work Phone: 1(593) 236-536506-25-2025 History and physical note Author Rea Cancino [facility] Note Date/Time February 04, 2025 11:1 0pm [facility] Medical Records Department [address] [place] [address] H&P Exam - Hospitalist 02/04/252238 MR#: [id number] Acct: [id number] Name: TIANFLORIN E Rep #:[id number] : [...] on BiPAP nightly who presents to the [facility] on 02/04/2025 with history of progressively worsening [...] glucose 131, lactic acid 1.3, magnesium 2.1, AST/AHH518/84, alk phos 137, T. bili 0.66, initial troponin 108 with repeat delta troponin 111, 4-hour troponin pending upon request evaluation of patient, NT proBNP 39978, urinalysis noted cloudy, protein 30, occult blood [...] work-up further notable for overload thus D/C. [facility] Medical History GI treated with BiPAP Valvular heart disease HTN (hypertension) CAD (coronary artery disease) HFrEF (heart failure with reduced ejection fraction) Daytime hypersomnolence Nonrheumatic aortic (valve) stenosis Hyperlipidemia Atherosclerotic heart disease of [place] coronary artery without angina pectoris Atherosclerosis of [...] 6 current occupational status: employed current occupation: [employer] current occupational exposures/hazards: No pets and [...] Sens 108 H*, [place] [address] H, Total Protein 5.9, Albumin 3.5, Globulin 2.4, Albumin/Globulin Ratio 1.5 02/04/25 18:30: WBC 5.7, RBC 3.63 L, Hgb 10.6 L, Hct 31.0 L, MCV 85.4, MCH 29.2,MCHC 34.2, RDW Std Deviation 43.8, RDW Coeff of Jenaro 13.9, Plt Count 82 L, MPV 11.4, Immature Gran % (Auto) 0.500, Neut % (Auto) 79.6 H, Lymph % (Auto) 12.3 L,[place] % (Auto) 7.4, Eos % (Auto) 0.0, Baso % (Auto) 0.2, Absolute Neuts (auto) 4.5, Absolute Lymphs (auto) 0.70 L, Nucleated RBC % 0, Differential Comment SCANNED, Platelet Estimate MOD DEC, PT 16.0 H, INR 1.3, APTT 32.2, Lactic Acid 1.3 02/04/25 18:58: Urine Color Yellow, Urine Clarity Sl. Cloudy, Urine pH 5.0, Ur Specific Bricelyn 1.020, Urine Protein 30 H, Urine Glucose [...] seen with cardiogenic pulmonary edema. Reading Location: [id number] Chest/Abdomen/Pelvis CT 02/04/25 20:37 IMPRESSION: 1. Trace pleural effusions, kxaba-gnqnxpe-aplt-left. 2. Gallbladder wall thickening, without radiodense stones. [...] malignancy per Fleischner society guidelines. Reading Location: [id number] Assessment & Plan Assessment/Plan (1) CHF exacerbation: PLAN: Plan The patient is an 85 y/o M w/ PMHx: Chronic anemia, CKD stage III unclear subtype, Chronic Thrombocytopenia, Valvular Heart Disease, CAD s/p PCI and CABG,HTN, HLD, AAA, BPH with obstructive pathology, HFrEF, GI on BiPAP nightly who presents to the [facility] on 02/04/2025 with history of progressively worsening [...] of the chest and abdomen 11/03/2017 with [facility] with a noted infrarenal abdominal aortic aneurysm [...] 16 minutes. Charges/Coding Visit Charges Inpatient E&M: 20868 Init Hosp L3 Procedures Hospitalists Procedures: 41344 Advncd Care Plan 30 Min 02/04/25 2310 <Electronically signed by Rea Cancino MD> Cosigner Signature (if applicable): CC: Dr. Rea Cancino MD; Dr. Pedro Gonzalez MD~ Signed [facility] Work Phone: 1(565) 520-917406-24-2025 Radiology Diagnostic study note [facility] Imaging Services [address] [place] [address] Gallbladder MR#: [id number] Acct: [id number] Name: FLORIN VARGAS Rep #: [id number] : 1940 M 85 From: Emerita Narvaez MD PCP: Dr. Pedro Gonzalez MD Status: ADM IN Study:Gallbladder Date of Exam: 02/04/25 Exam# [id number] Ordering Dr: Chandni Cancino MD PROCEDURE: GALLBLADDER [...] Findings suggestive of hepatic steatosis. Reading Location: [facility] CC: Dr. Rea Cancino MD; Dr. Pedro Gonzalez MD ~ Office Clin Asst: Signed [facility]06-24-[address] [facility] Medical Records Department [address] [place] [address] Emergency Department Summary 02/04/25 MR#: [id number] Acct: [id number] Name: FLORIN VARGAS Rep #:[id number] : [...] daily andlisinopril 2.5 mg daily today. PFSH [facility] Medical History GI treated with BiPAP Valvular heart disease HTN (hypertension) CAD (coronary artery disease) HFrEF (heart failure with reduced ejection fraction) Daytime hypersomnolence Nonrheumatic aortic (valve) stenosis Hyperlipidemia Atherosclerotic heart disease of [place] coronary artery without angina pectoris Atherosclerosis of [...] 6 current occupational status: employed current occupation: [employer] current occupational exposures/hazards: No pets and [...] 79.6 H Lymph % (Auto) 12.3 L [place] % (Auto) 7.4 Eos % (Auto) 0.0 [...] [place] 4[place] [address] H Total Protein 5.9 Albumin 3.5 Globulin 2.4 Albumin/Globulin Ratio 1.5 Urine Color Yellow Urine Clarity Sl. Cloudy Urine pH 5.0 Ur Specific Bricelyn 1.020 Urine Protein 30 H Urine Glucose [...] (Auto) Neut % (Auto) Lymph % (Auto) [place] % (Auto) Eos % (Auto) Baso % [...] Color Urine Clarity Urine pH Ur Specific Bricelyn Urine Protein Urine Glucose (UA) Urine Ketones [...] seen with cardiogenic pulmonary edema. Reading Location: [id number] Chest/Abdomen/Pelvis CT 02/04/25 20:37 IMPRESSION: 1. Trace pleural effusions, svxqw-gxfrvxl-ogob-left. 2. Gallbladder wall thickening, without radiodense stones. [...] malignancy per Fleischner society guidelines. Reading Location: [facility] Rhythm Strip Rhythm Strip: Sinus Rhythm Rate: 100 Ectopy: PVC(s) EKG Initial EKG: Attestation: I personally reviewed and interpreted this EKG as follows: Interpretation: Sinus Rhythm Comments: Normal sinus rhythm at 100 beats per minutes with first-degree AV block HI interval 230 Frequent PVCs presents as well [...] MD [Primary Care Provider] - Print Language: Bolivian Disposition Disposition: Acute Care Hospital [facility] What to do if you have Problems For any increased pain, shortness of breath, bleeding, nausea or vomiting, chestpain, or any unexpected problems, contact your Primary Care Provider. Call [facility] ([phone]) or report tothe closest Emergency Room. Call 911 if necessary. 02/04/25 2142 Cosigner Signature (if applicable): CC: Dr. Pedro Gonzalez MD ~ Signed [facility]06-24-2025 History and physical note [facility] Medical Records Department [address] [place] [address] H&P Exam - Hospitalist 02/04/259 MR#: [id number] Acct: [id number] Name: FLORIN VARGAS Rep #:[id number] : [...] on BiPAP nightly who presents to the [facility] on 02/04/2025 with history of progressively worsening [...] glucose 131, lactic acid 1.3, magnesium 2.1, AST/ENB938/84, alk phos 137, T. bili 0.66, initial troponin 108 with repeatdelta troponin 111, 4-hour troponin pending upon request evaluation of patient, NT proBNP 15347, urinalysis noted cloudy, protein 30, occult blood [...] work-up further notable for overload thus D/C. [facility] Medical History GI treated with BiPAP Valvular heart disease HTN (hypertension) CAD (coronary artery disease) HFrEF (heart failure with reduced ejection fraction) Daytime hypersomnolence Nonrheumatic aortic (valve) stenosis Hyperlipidemia Atherosclerotic heart disease of [place] coronary artery without angina pectoris Atherosclerosis of [...] Sens 108 H*, [place] [address] H, Total Protein 5.9,Albumin 3.5, Globulin 2.4, Albumin/Globulin Ratio 1.5 02/04/25 18:30: WBC 5.7, RBC 3.63 L, Hgb 10.6 L, Hct 31.0 L, MCV 85.4, MCH 29.2,MCHC 34.2, RDW Std Deviation 43.8, RDW Coeff of Jenaro 13.9, Plt Count 82 L, MPV 11.4, Immature Gran % (Auto) 0.500, Neut % (Auto) 79.6 H, Lymph % (Auto) 12.3 L,[place] % (Auto) 7.4, Eos % (Auto) 0.0, Baso % (Auto) 0.2, Absolute Neuts (auto) 4.5, Absolute Lymphs (auto) 0.70 L, Nucleated RBC % 0, Differential Comment SCANNED, Platelet Estimate MOD DEC, PT 16.0 H, INR 1.3, APTT 32.2, Lactic Acid 1.3 02/04/25 18:58: Urine Color Yellow, Urine Clarity Sl. Cloudy, Urine pH 5.0, Ur Specific Bricelyn 1.020, Urine Protein 30 H, Urine Glucose [...] seen with cardiogenic pulmonary edema. Reading Location: [id number] Chest/Abdomen/Pelvis CT 02/04/25 20:37 IMPRESSION: 1. Trace pleural effusions, toxim-exiekdq-hteq-left. 2. Gallbladder wall thickening, without radiodense stones. [...] malignancy per Fleischner society guidelines. Reading Location: [id number] Assessment & Plan Assessment/Plan (1) CHF exacerbation: PLAN: Plan The patient is an 85 y/o M w/ PMHx: Chronic anemia, CKD stage III unclear subtype, Chronic Thrombocytopenia, Valvular Heart Disease, CAD s/p PCI and CABG,HTN, HLD, AAA, BPH with obstructive pathology, HFrEF, GI on BiPAP nightly who presents to the [facility] on 02/04/2025 with history of progressively worsening [...] CTA ofthe chest and abdomen 11/03/2017 with [facility] with a noted infrarenal abdominal aortic aneurysm [...] 16 minutes. Charges/Coding Visit Charges Inpatient E&M: 72991 Init Hosp L3 Procedures Hospitalists Procedures: 03892 Advncd Care Plan 30 Min 02/04/25 2310 Cosigner Signature (if applicable): CC: Dr. Rea Cancino MD; Dr. Pedro Gonzalez MD~ Signed [facility]06-24-2025 Radiology Diagnostic study note [facility] Imaging Services [address] [place], [place] [address] CT Chest, Abd, Pelvis WO Cont MR#: [id number] Acct: [id number] Name: FLORIN VARGAS Rep #: [id number] : 1940 M 85 From: Emerita Narvaez MD PCP: Dr. Pedro Gonzalez MD Status: REG ER Study:CT Chest, Abd, Pelvis WO Cont Date of E xam: 02/04/25 Exam# [id number] Ordering Dr: Anh Emanuel DO PROCEDURE: CT [...] 2, image 90). Pleura: Trace pleural effusions, wehkb-tonyhgk-fbnh-left. Bones: Sequela of median sternotomy. Degenerative changes [...] lumbosacral anatomy. CT/CT Chest, Abd, Pelvis WO [facility] IMPRESSION: 1. Trace pleural effusions, ghrii-fdnjlsz-cajb-left. 2. Gallbladder wall thickening, without radiodense stones. [...] malignancy per Fleischner society guidelines. Reading Location: [id number] CC: Dr. Maryanne Emanuel DO; Dr. Pedro Gonzalez MD ~ Office Clin Asst: Signed [facility]06-24-2025 Radiology Diagnostic study note [facility] Imaging Services [address] [place], [place] [address] Chest 1 View (Portable) MR#: [id number] Acct: [id number] Name: FLORIN VARGAS Rep #: [id number] : 1940 M 85 From: Emerita Narvaez MD PCP: Dr. Pedro Gonzalez MD Status: REG ER Study:Chest 1 View (Portable) Date of Exam: 02/04/25 Exam# [id number] Ordering Dr: Anh Emanuel DO PROCEDURE: CHEST [...] seen with cardiogenic pulmonary edema. Reading Location: [id number] CC: Dr. Maryanne Emanuel DO; Dr. Pedro Gonzalez MD ~ Office Clin Asst: Signed [facility]06-24-2025 Discharge summary Author Maryanne Emanuel [facility] Note Date/Time February 04, 2025 11:2 8pm [facility] Medical Records Department [address] [place] [address] Emergency Department Summary 02/04/25 MR#: [id number] Acct: [id number] Name: FLORIN VARGAS Rep #:[id number] : [...] (valve) stenosis Hyperlipidemia Atherosclerotic heart disease of [place] coronary artery without angina pectoris Atherosclerosis of [...] 79.6 H Lymph % (Auto) 12.3 L [place] % (Auto) 7.4 Eos % (Auto) 0.0 [...] [place] 4[place] [address] H Total Protein 5.9 Albumin 3.5 Globulin 2.4 Albumin/Globulin Ratio 1.5 Urine Color Yellow Urine Clarity Sl. Cloudy Urine pH 5.0 Ur Specific Bricelyn 1.020 Urine Protein 30 H Urine Glucose [...] (Auto) Neut % (Auto) Lymph % (Auto) [place] % (Auto) Eos % (Auto) Baso % [...] Color Urine Clarity Urine pH Ur Specific Bricelyn Urine Protein Urine Glucose (UA) Urine Ketones [...] seen with cardiogenic pulmonary edema. Reading Location: [id number] Chest/Abdomen/Pelvis CT 02/04/25 20:37 IMPRESSION: 1. Trace pleural effusions, nsonq-opwtxbe-jrgd-left. 2. Gallbladder wall thickening, without radiodense stones. [...] malignancy per Fleischner society guidelines. Reading Location: [facility] Rhythm Strip Rhythm Strip: Sinus Rhythm Rate: 100 Ectopy: PVC(s) EKG Initial EKG: Attestation: I personally reviewed and interpreted this EKG as follows: Interpretation: Sinus Rhythm Comments: Normal sinus rhythm at 100 beats per minutes with first-degree AV block HI interval 230 Frequent PVCs presents as well [...] MD [Primary Care Provider] - Print Language: Bolivian Disposition Disposition: Acute Care Hospital [facility] What to do if you have Problems For any increased pain, shortness of breath, bleeding, nausea or vomiting, chestpain, or any unexpected problems, contact your Primary Care Provider. Call [facility] ([phone]) or report to the closest Emergency Room. Call 911 if necessary. 02/04/252327 <Electronically signed by Maryanne Emanuel DO> Cosigner Signature (if applicable): CC: Dr. Pedro Gonzalez MD ~ Signed [facility] Work Phone: 1(650) 806-701406-24-2025 Evaluation note* Diagnosis Onset Date Resolution Status [...] valve Dec, 2017 inactive April 07 9:50am [facility] Work Phone: 1(884) 126-670905-02-2025 [facility]05-01-2025 Evaluation note* Diagnosis Onset Date Resolution Status [...] artery chronic December 25, 2024 1 0:16am [employer] Work Phone: 1(246) 656-972505-01-2025 Evaluation note* Diagnosis Onset Date Resolution Status [...] y artery chronic February 04, 2025 8:47am [employer] Work Phone: 1([phone]) 549-474805-01-2025 Evaluation note* Diagnosis Onset Date Resolution Status [...] 2025 8:47am CHF exacerbation chronic January 10:42pm [facility] Work Phone: [phone]) 597-582505-01-2025 Evaluation note* Diagnosis Onset Date Resolution Status [...] 2025 10:42pm Acute hypoxic respiratory failure ac [place] February 04, 2025 10:42pm Elevated troponin acute [...] Dec, 2017 chronic February 04, 2025 10:42pm [facility] Work Phone: 1(681) 911-927405-01-2025 Evaluation note* Diagnosis Onset Date Resolution Status [...] 2025 10:42pm Acute hypoxic respiratory failure ac [place] February 04, 2025 10:42pm Elevated troponin acute [...] duced ejection fraction) inactive February 11 9:59am [employer] [facility] Work Phone: 1(133) 716-446405-01-2025 Evaluation note* Diagnosis Onset Date Resolution Status [...] 2017 inactive February 11, 2025 9 :59am [facility] Work Phone: 1(979) 231-323105-01-2025 Evaluation note* Diagnosis Onset Date Resolution Status [...] Dec, 2017 inactive February 26, 2025 8:48am [facility] Work Phone: 1([phone]) 665-996105-01-2025 Evaluation note* Diagnosis Onset Date Resolution Status [...] valve Dec, 2017 inactive April 07 9:50am [facility] Work Phone: [phone]) 547-503812-27-2024 Evaluation note* Diagnosis Onset Date Resolution Status [...] coronar y artery chronic August 09 9:17am [facility] Work Phone: Discharge summary Author Yeny Gabriel [facility] Note Date/Time February 08, 2025 2:[address] [facility] Medical Records Department [address] [place] [address] Discharge Summary 02/08/25 1418 MR#: [id number] Acct: [id number] Name: FLORIN VARGAS Rep #:[id number] : 1940 85 From: Yeny Gabriel DO PCP: Dr. Pedro Gonzalez, MD Status:ADM [facility] Prov[facility] Date of Admission: 02/04/25 Primary Care Physician: Dr. Pedro Gonzalez MD Consultations 02/05/25 00:02 Consult: Cardiology Routine Consulting Provider: Cj Gardiner Reason for Consult: HF Exac, elevated troponins EMERGENT Consult: No Notified: Yes Date Notified: 02/04/25 Time Notified: 22:45 Method of Notification: Text Consult: Slag [employer]er / Pulmonary Medicine Routine Consulting Provider: Intensivists/Pulmonary [...] who presented to the emergency department at [facility] on 02/04/2025 with a chief complaint of [...] body habitus Constitutional Narrative: Morbidly obese, white [place] male, reclining, family at bedside, appears well, [...] % (Auto) 51.1, Lymph % (Auto) 38.6, [place] % (Auto) 6.6, Eos % (Auto) 3.1, [...] Self Care Charges/Coding Visit Charges Inpatient E&M: 42628 Disch Hosp >30min 02/08/25 1441 <Electronically signed by Yeny Gabriel DO> Cosigner Signature (if applicable): CC: Dr. Cj Gardiner MD; Dr. Pedro Gonzalez MD; Dr. Yeny Gabriel DO; Dr. Glen Haywood MD~ Signed [facility] Work Phone: Evaluation note* Diagnosis Onset Date Resolution Status 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 Atherosclerotic heart diseas e of [place] coronary artery without angina pectoris chronic Chronic systolic (congestive) heart failure chronic History of aortic valve repl acement with bioprosthetic valve Dec, 2017 chronic Hyperlipidemia chronic Presence of stent in coronary artery chronic Daytime hypersomnolence acut e 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 Atherosclerotic heart diseas e of [place] coronary artery without angina pectoris chronic Chronic systolic (congestive) heart failure chronic H/O coronary artery bypass surgery 2001 chronic History of aortic valve repl acement with bioprosthetic valve Dec, 2017 chronic Hyperlipidemia chronic Presence of stent in coronary artery chronic [facility] Work Phone: Evaluation note* Diagnosis Onset Date Resolution Status Daytime hypersomnolence acut e 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 Atherosclerotic heart diseas e of [place] coronary artery without angina pectoris chronic Chronic systolic (congestive) heart failure chronic H/O coronary artery bypass surgery 2001 chronic History of aortic valve repl acement with bioprosthetic valve Dec, 2017 chronic Hyperlipidemia chronic Presence of stent in coronary artery chronic GI (obstructive sleep apnea) acute [facility] Work Phone: Evaluation note* Diagnosis Onset Date Resolution Status Daytime hypersomnolence acut e 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 Atherosclerotic heart diseas e of [place] coronary artery without angina pectoris chronic Chronic systolic (congestive) heart failure chronic H/O coronary artery bypass surgery 2001 chronic History of aortic valve repl acement with bioprosthetic valve Dec, 2017 chronic Hyperlipidemia chronic Presence of stent in coronary artery chronic GI (obstructive sleep apnea) acute Atherosclerotic heart diseas e of [place] coronary artery without angina pectoris chronic Chronic systolic (congestive) heart failure chronic H/O coronary artery bypass surgery 2001 chronic History of aortic valve repl acement with bioprosthetic valve Dec, 2017 chronic Hyperlipidemia chronic Presence of stent in coronary artery chronic [facility] Work Phone: History and physical note Author Rea Cancino [facility] Note Date/Time February 04, 2025 11:1 0pm [facility] Medical Records Department [address] [place] [address] H&P Exam - Hospitalist 02/04/25 2239 MR#: [id number] Acct: [id number] Name: FLORIN VARGAS Rep #:[id number] : [...] on BiPAP nightly who presents to the [facility] on 02/04/2025 with history of progressively worsening [...] glucose 131, lactic acid 1.3, magnesium 2.1, AST/NMT511/84, alk phos 137, T. bili 0.66, initial troponin 108 with repeat delta troponin 111, 4-hour troponin pending upon request evaluation of patient, NT proBNP 95950, urinalysis noted cloudy, protein 30, occult blood [...] work-up further notable for overload thus D/C. [facility] Medical History GI treated with BiPAP Valvular heart disease HTN (hypertension) CAD (coronary artery disease) HFrEF (heart failure with reduced ejection fraction) Daytime hypersomnolence Nonrheumatic aortic (valve) stenosis Hyperlipidemia Atherosclerotic heart disease of [place] coronary artery without angina pectoris Atherosclerosis of [...] Sens 108 H*, [place] [address] H, Total Protein 5.9, Albumin 3.5, Globulin 2.4, Albumin/Globulin Ratio 1.5 02/04/25 18:30: WBC 5.7, RBC 3.63 L, Hgb 10.6 L, Hct 31.0 L, MCV 85.4, MCH 29.2,MCHC 34.2, RDW Std Deviation 43.8, RDW Coeff of Jenaro 13.9, Plt Count 82 L, MPV 11.4, Immature Gran % (Auto) 0.500, Neut % (Auto) 79.6 H, Lymph % (Auto) 12.3 L,[place] % (Auto) 7.4, Eos % (Auto) 0.0, Baso % (Auto) 0.2, Absolute Neuts (auto) 4.5, Absolute Lymphs (auto) 0.70 L, Nucleated RBC % 0, Differential Comment SCANNED, Platelet Estimate MOD DEC, PT 16.0 H, INR 1.3, APTT 32.2, Lactic Acid 1.3 02/04/25 18:58: Urine Color Yellow, Urine Clarity Sl. Cloudy, Urine pH 5.0, Ur Specific Bricelyn 1.020, Urine Protein 30 H, Urine Glucose [...] seen with cardiogenic pulmonary edema. Reading Location: [id number] Chest/Abdomen/Pelvis CT 02/04/25 20:37 IMPRESSION: 1. Trace pleural effusions, plrzi-xhrfkep-jlit-left. 2. Gallbladder wall thickening, without radiodense stones. [...] malignancy per Fleischner society guidelines. Reading Location: [id number]-Y Assessment & Plan Assessment/Plan (1) CHF exacerbation: PLAN: Plan The patient is an 85 y/o M w/ PMHx: Chronic anemia, CKD stage III unclear subtype, Chronic Thrombocytopenia, Valvular Heart Disease, CAD s/p PCI and CABG,HTN, HLD, AAA, BPH with obstructive pathology, HFrEF, GI on BiPAP nightly who presents to the [facility] on 02/04/2025 with history of progressively worsening [...] of the chest and abdomen 11/03/2017 with [facility] with a noted infrarenal abdominal aortic aneurysm [...] 16 minutes. Charges/Coding Visit Charges Inpatient E&M: 85519 Init Hosp L3 Procedures Hospitalists Procedures: 89435 Advncd Care Plan 30 Min 02/04/25 2310 <Electronically signed by Rea Cancino MD> Cosigner Signature (if applicable): CC: Dr. Rea Cancino MD; Dr. Pedro Gonzalez MD~ Signed [facility] Work Phone: Hospital Discharge instructionsAdditional Instructions Double [...] if your symptoms worsen or new symptoms develop.[facility] Work Phone: Reason for referral (narrative)No reason for referral information availableWGreen Cross Hospital Work Phone: Summary Purpose Family History Relationship Condition Age at Onset Recorded Date/T rosalinda father Myocardial infarction Unknown Cerebrovascular accident (CVA) Unknown mother Congestive heart failure Unknown brother Coronary artery disease Unknown Malignant neoplasm Unknown Advance Directives Advance Directive Response Recorded Date/ Time Advance Directives No September 12, 2017 9:03am Living Will No June 20 9:57am Power of Horseshoer No June 20, 2019 9:57am Advance Directive Response Recorded Date/ Time Advance Directives No September 12, 2017 9:03am Living Will No January 27, 2022 10:27am Power of Horseshoer No January 27 10:27am Advance Directive Response Recorded Date/ Time Living Will No March 29 12:11pm Do you have a Healthcare Power of [place]orses[place]? No March 29, 2022 12:11pm Advance Directives No March 29, 2022 7:31am Advance Directive Response Recorded Date/ Time Do you have a Healthcare Power of [place]? No December 12, 2024 10:13am Advance Directives No March 29, 2022 7:31am Advance Directive Response Recorded Date/ Time Do you have a Healthcare Power of [place]? No December 12, 2024 10:13am Do you have a Healthcare Power of [place]? No February 04, 2025 6:04pm Advance Directives No March 29, 2022 7:31am Advance Directive Response Recorded Date/ Time Do you have a Healthcare Power of [place]? No December 12, 2024 10:13am Do you have a Healthcare Power of [place]? No 2025 12:03am Advance Directives No March 29, 2022 7:31am Advance Directive Response Recorded Date/ Time Do you have a Healthcare Power of [place]? No December 12, 2024 10:13am Do you have a Healthcare Power of [place]? No 2025 12:03am Do you have a Healthcare Power of [place]? No April 02, 2025 11:07am Advance Directives No March 29, 2022 7:31am Advance Directive Response Recorded Date/ Time Do you have a Healthcare Power of [place]? No 2025 12:03am Do you have a Healthcare Power of [place]? No April 02, 2025 11:07am Advance Directives No March 29, 2022 7:31am Hospital Course Note [facility] DISCHARGE SUMMARY NAME ACCOUNT SEX AGE ADMIT DISCHARGE PT MED. RECORD# NUMBER DATE DATE TYPE TIAN, [id number] Jackie 79 [birth year] Stephanie Courtney [id number] ROOM: [id number] DATE OF : 1940 DICTATING [...] without angina pectoris Atherosclerotic heart disease of [place] coronary artery without angina pectoris Chronic systolic (congestive) heart failure History of aortic valve replacement with bioprosthetic valve Hyperlipidemia Presence of stent in coronary artery Daytime hypersomnolence Atherosclerosis of coronary artery bypass graft without angina pectoris Atherosclerotic heart disease of [place] coronary artery without angina pectoris Chronic systolic [...] without angina pectoris Atherosclerotic heart disease of [place] coronary artery without angina pectoris Chronic systolic [...] without angina pectoris Atherosclerotic heart disease of [place] coronary artery without angina pectoris Chronic systolic [...] without angina pectoris Atherosclerotic heart disease of [place] coronary artery without angina pectoris Chronic systolic (congestive) heart failure H/O coronary artery bypass surgery History of aortic valve replacement with bioprosthetic valve Hyperlipidemia Presence of stent in coronary artery GI (obstructive sleep apnea) Atherosclerotic heart disease of [place] coronary artery without angina pectoris Chronic systolic [...] December 13, 2024 1 0:10am S/P HOSP ([facility] /) December 25, 2024 10:16 am [...] December 13, 2024 1 0:10am S/P HOSP ([facility] 5/) December 25, 2024 10:16 am [...] December 13, 2024 1 0:10am S/P HOSP ([facility] 12/13) December 25, 2024 10:16 am [...] December 13, 2024 1 0:10am S/P HOSP ([facility] 5/2) December 25, 2024 10:16 am [...] December 13, 2024 1 0:10am S/P HOSP ([facility] 5/) December 25, 2024 10:16 am [...] S GB February 08, 2025 2:18pm S/P [facility] (02/08) February 11, 2025 9:59a m [...] December 13, 2024 1 0:10am S/P HOSP ([facility] 5/) December 25, 2024 10:16 am [...] S GB February 08, 2025 2:18pm S/P [facility] (02/08) February 11, 2025 9:59a m [...] December 13, 2024 1 0:10am S/P HOSP ([facility] 12/13) December 25, 2024 10:16 am [...] S GB February 08, 2025 2:18pm S/P [facility] (02/08) February 11, 2025 9:59a m VENTRICULAR PREMATURE DEPOLARIZATION Feb 11:14am PVC'S February 11, 2025 11:26 am 2-4 wk fu February 26, 2025 8:48 am sob April 02, 2025 10 :48am Chief Complaint Admit Date CHF December 12, 2024 9:20am Congestive heart failure December 12, 2024 9 :24am Congestive heart failure December 13, 2024 1 0:10am S/P HOSP ([facility] 12/13) December 25, 2024 10:16 am [...] S GB February 08, 2025 2:18pm S/P [facility] (02/08) February 11, 2025 9:59a m VENTRICULAR PREMATURE DEPOLARIZATION Feb 11:14am PVC'S February 11, 2025 11:26 am 2-4 wk fu February 26, 2025 8:48 am sob April 02, 2025 10 :48am S/P ER [facility] 04/02April 07, 2025 9: 50am Reason [...] S GB February 08, 2025 2:18pm S/P [facility] (02/08) February 11, 2025 9:59a m VENTRICULAR PREMATURE DEPOLARIZATION Feb 11:14am PVC'S February 11, 2025 11:26 am 2-4 wk fu February 26, 2025 8:48 am sob April 02, 2025 10 :48am S/P ER [facility] 04/02April 07, 2025 9: 50am Reason [...] section and content) DATE CREATED AUTHOR 03/26/2018 [facility] DATE CREATED AUTHOR AUTHOR'S ORGANIZ ATION 05/12/2019 [facility] DATE CREATED AUTHOR AUTHOR'S ORGANIZ ATION 09/17/2020 [facility] DATE CREATED AUTHOR AUTHOR'S ORGANIZ ATION 10/05/2020 [facility] ([place]) DATE CREATED AUTHOR AUTHOR'S ORGANIZ ATION 05/04/2025 [facility] Goals (unrecognized section and content) Goals [...] End: August 09, 2024 Andrzej Marinelli NP, TELEMARKETER SUPERVISOR-C Attending Provider Active S tart: August 09, 2024 End: August 09, 2024 Team Status: Inactive Member Role Status Dates Dr. Pedro DALAL MD Primary Care Provider Active Start: August 09, 2024 End: August 09, 2024 Andrzej Marinelli NP, TELEMARKETER SUPERVISOR-C Attending Provider Active S tart: August 09, 2024 End: August 09, 2024 Andrzej Marinelli NP TELEMARKETER SUPERVISOR-C Referring Provider Active S tart: August 09, 2024 End: August 09, 2024 Team Status: Inactive Member Role Status Dates Dr. Pedro Gonzalez MD Primary Care Provider Active Start: November 04, 2024 End: November 04, 2024 Karo Sewell NP TELEMARKETER SUPERVISOR-C Attending Provider Active S tart: November 04, 2024 End: November 04, 2024 Karo Sewell NP TELEMARKETER SUPERVISOR-C Referring Provider Active S tart: November 04, 2024 End: November 04, 2024 Team Status: Inactive Member Role Status Dates Dr. Pedro Gonzalez MD Primary Care Provider Active Start: November 18, 2024 End: November 18, 2024 Karo Sewell TELEMARKETER SUPERVISOR, TELEMARKETER SUPERVISOR-C Attending Provider Active S tart: November 18, 2024 End: November 18, 2024 Karo Sewell TELEMARKETER SUPERVISOR, TELEMARKETER SUPERVISOR-C Referring Provider Active S tart: November 18, [...] 2024 End: December 25, 2024 Andrzej Marinelli TELEMARKETER SUPERVISOR, TELEMARKETER SUPERVISOR-C Attending Provider Active S tart: December 25, 2024 End: December 25, 2024 Team Status: Inactive Member Role Status Dates Dr. Pedro DALAL MD Referring Provider Active Start: February 04, 2025 End: February 04, 2025 Andrzej Marinelli TELEMARKETER SUPERVISOR, TELEMARKETER SUPERVISOR-C Attending Provider Active S tart: February 04, [...] Status: Active Member Role Status Dates Dr. Perdo Gonzalez MD Primary Care Provider Active Start: [...] Active Star t: February 04, 2025 Dr. Db King MD Other Provider [...] 2024 End: November 04, 2024 Karo Sewell TELEMARKETER SUPERVISOR, TELEMARKETER SUPERVISOR-C Attending Provider Active S tart: November 04, 2024 End: November 04, 2024 Karo Sewell TELEMARKETER SUPERVISOR, TELEMARKETER SUPERVISOR-C Referring Provider Active S tart: November 04, 2024 End: November 04, 2024 Team Status: Inactive Member Role/Relationship Status Dates Dr. Pedro Gonzalez MD Primary Care Provider Active Start: November 18, 2024 End: November 18, 2024 Karo Sewell TELEMARKETER SUPERVISOR, TELEMARKETER SUPERVISOR-C Attending Provider Active S tart: November 18, 2024 End: November 18, 2024 Karo Sewell TELEMARKETER SUPERVISOR, TELEMARKETER SUPERVISOR-C Referring Provider Active S tart: November 18, [...] 2024 End: December 25, 2024 Andrzej Marinelli TELEMARKETER SUPERVISOR, TELEMARKETER SUPERVISOR-C Attending Provider Active S tart: December 25, 2024 End: December 25, 2024 Team Status: Inactive Member Role/Relationship Status Dates Dr. Pedro DALAL MD Referring Provider Active Start: February 04, 2025 End: February 04, 2025 Andrzej Marinelli TELEMARKETER SUPERVISOR, TELEMARKETER SUPERVISOR-C Attending Provider Active S tart: February 04, [...] Active Start: February 06, 2025 Dr. Maryanne Emaunel DO Emergency Provider Active Start: February 06, [...] End: February 11, 2025 Andrzej H Isis TELEMARKETER SUPERVISOR, TELEMARKETER SUPERVISOR-C Attending Provider Active S tart: February 11, 2025 End: February 11, 2025 Team Status: Active Member Role/Relationship Status Dates Dr. Pedro Gonzalez MD Primary Care Provider Active Start: February 11, 2025 Andrzej H Isis TELEMARKETER SUPERVISOR, TELEMARKETER SUPERVISOR-C Attending Provider Active S tart: February 11, 2025 Andrzej H Isis TELEMARKETER SUPERVISOR, TELEMARKETER SUPERVISOR-C Referring Provider Active S tart: February 11, 2025 Team Status: Inactive Member Role/Relationship Status Dates Dr. Pedro Gonzalez MD Primary Care Provider Active Start: February 11, 2025 End: February 11, 2025 Andrzej H Isis TELEMARKETER SUPERVISOR, TELEMARKETER SUPERVISOR-C Attending Provider Active S tart: February 11, 2025 End: February 11, 2025 Andrzej H Isis TELEMARKETER SUPERVISOR, TELEMARKETER SUPERVISOR-C Referring Provider Active S tart: February 11, 2025 End: February 11, 2025 Team Status: Active Member Role/Relationship Status Dates Dr. Pdero Gonzalez MD Primary Care Provider Active Start: [...] 2025 End: February 26, 2025 Andrzej Marinelli TELEMARKETER SUPERVISOR, TELEMARKETER SUPERVISOR-C Attending Provider Active S tart: February 26, 2025 End: February 26, 2025 Team Status: Inactive Member Role/Relationship Status Dates Dr. Pedro Gonzalez MD Primary Care Provider Active Start: December 12, 2024 End: December 13, 2024 Jose Lopez MD Emergency Provider Active Star t: December 12, 2024 End: December 13, 2024 Dr. Gaurang Cotres MD Admit Provider Active Star t: December [...] 2024 End: December 25, 2024 Andrzej Marinelli TELEMARKETER SUPERVISOR, TELEMARKETER SUPERVISOR-C Attending Provider Active S tart: December 25, 2024 End: December 25, 2024 Team Status: Inactive Member Role/Relationship Status Dates Dr. Pedro DALAL MD Referring Provider Active Start: February 04, 2025 End: February 04, 2025 Andrzej Marinelli TELEMARKETER SUPERVISOR, TELEMARKETER SUPERVISOR-C Attending Provider Active S tart: February 04, [...] Active Member Role/Relationship Status Dates Dr. Pedro Gonzaelz MD Primary Care Provider Active Start: February [...] 2025 End: February 11, 2025 Andrzej Marinelli TELEMARKETER SUPERVISOR, TELEMARKETER SUPERVISOR-C Attending Provider Active S tart: February 11, 2025 End: February 11, 2025 Team Status: Inactive Member Role/Relationship Status Dates Dr. Pedro Gonzalez MD Primary Care Provider Active Start: February 11, 2025 End: February 11, 2025 Andrzej Marinelli TELEMARKETER SUPERVISOR, TELEMARKETER SUPERVISOR-C Attending Provider Active S tart: February 11, 2025 End: February 11, 2025 Andrzej Marinelli TELEMARKETER SUPERVISOR, TELEMARKETER SUPERVISOR-C Referring Provider Active S tart: February 11, 2025 End: February 11, 2025 Team Status: Active Member Role/Relationship Status Dates Dr. Pedro Gonzalez MD Primary Care Provider Active Start: February 11, 2025 Dr. Cj Gardiner MD Attending Provider Active S tart: February 11, 2025 Andrzej Marinelli TELEMARKETER SUPERVISOR, TELEMARKETER SUPERVISOR-C Referring Provider Active S tart: February 11, 2025 Team Status: Inactive Member Role/Relationship Status Dates Dr. Pedro Gonzalez MD Primary Care Provider Active Start: February 26, 2025 End: February 26, 2025 Dr. Pedro Gonzalez MD Referring Provider Active St art: February 26, 2025 End: February 26, 2025 Andrzej Marinelli TELEMARKETER SUPERVISOR, TELEMARKETER SUPERVISOR-C Attending Provider Active S tart: February 26, 2025 End: February 26, 2025 Team Status: Inactive Member Role/Relationship Status Dates Dr. Pedro oGnzalez MD Primary Care Provider Active Start: April [...] 2025 End: April 07, 2025 Andrzej Marinelli TELEMARKETER SUPERVISOR, TELEMARKETER SUPERVISOR-C Attending Provider Active S tart: April 07, 2025 End: April 07, 2025 Team Status: Active Member Role/Relationship Status Dates Dr. Pedro Gonzalez MD Primary care physician Active Team Status: Inactive Member Role/Relationship Status Dates Dr. Pedro DALAL MD Referring Provider Active Start: February 04, 2025 End: February 04, 2025 Andrzej Marinelli TELEMARKETER SUPERVISOR, TELEMARKETER SUPERVISOR-C Attending physician Active Start: February 04, 2025 [...] Nurse Practitioner Active Sta rt: 2025 Dr. Dallin Mclain MD Nurse Practitioner Active Start: 2025 [...] Active S tart: February 06, 2025 Dr. ePdro Galvan DO Nurse Practitioner Active Start: February [...] 2025 End: February 11, 2025 Andrzej Marinelli TELEMARKETER SUPERVISOR, TELEMARKETER SUPERVISOR-C Attending physician Active Start: February 11, 2025 End: February 11, 2025 Team Status: Inactive Member Role/Relationship Status Dates Dr. Pedro Gonzalez MD Primary care physician Active Start: February 11, 2025 End: February 11, 2025 Andrzej Marinelli TELEMARKETER SUPERVISOR, TELEMARKETER SUPERVISOR-C Attending physician Active Start: February 11, 2025 End: February 11, 2025 Andrzej Marinelli TELEMARKETER SUPERVISOR, TELEMARKETER SUPERVISOR-C Referring Provider Active S tart: February 11, 2025 End: February 11, 2025 Team Status: Active Member Role/Relationship Status Dates Dr. Pedro Gonzalez MD Primary care physician Active Start: February 11, 2025 Dr. Cj Gardiner MD Attending physician Active Start: February 11, 2025 Andrzej Marinelli TELEMARKETER SUPERVISOR, TELEMARKETER SUPERVISOR-C Referring Provider Active S tart: February 11, 2025 Team Status: Inactive Member Role/Relationship Status Dates Dr. Pedro Gonzalez MD Primary care physician Active Start: February 26, 2025 End: February 26, 2025 Dr. Pedro Gonzalez MD Referring Provider Active St art: February 26, 2025 End: February 26, 2025 Andrzej Marinelli NP, TELEMARKETER SUPERVISOR-C Attending physician Active Start: February 26, 2025 [...] 2025 End: April 07, 2025 Andrzej Marinelli TELEMARKETER SUPERVISOR, TELEMARKETER SUPERVISOR-C Attending physician Active Start: April 07, 2025 [...] BE BASED ON THE PRIMARY CLINICAL RECORDS. [employer] provides no warranty or guarantee of the accuracy or completeness of information in this document.
[2025-05-19] MEDS: Furosemide 500 MG in Empty Viaflex 50 mL 1 EACH CONT INF (02:22)
[2025-05-19 02:30] LABS: Magnesium 2.7 mg/dL (1.5-2.2)
[2025-05-19 02:31] LABS: Troponin T High Sens 2 HR 82 ng/L (<=22)
--- OUTSIDE RECORDS SUMMARY | 2025-05-19 02:47 | XMS RPT_ITS | CCD ---
Author Organization [facility] Care Team Providers Care Bandoleer Packer Name Role Phone WHITE, LADARIUS Unavailable Unavailable WHITE, LADARIUS Unavailable Unavailable WHITE, LADARIUS Unavailable Unavailable WHITE, LADARIUS Unavailable Unavailable WHITE, LADARIUS Unavailable Unavailable WHITE, LADARIUS Unavailable Unavailable WHITE, LADARIUS Unavailable Unavailable UNAI, SHINYA Unavailable Unavailable WHITE, LADARIUS Unavailable Unavailable VANESSA COLVIN L (TOBACCO EDUCATOR) Unavailable Unavailable WHITE, LADARIUS Unavailable Unavailable WHITE, [...] Admitting Unavailable SAJI PENA DR Attending Unavailable EPDRO GONZALEZ Referring Unavailable SAJI PENA DR Primary [...] Provider Dr. Pedro Gonzalez Referring Provider Roof NETWORK TECHNICIAN, NETWORK TECHNICIAN-C Andrzej Morales Attending Provider Dr. Pedro Gonzalez Primary Care Provider Dr. Pedro Gonzalez Referring Provider Roof NETWORK TECHNICIAN, NETWORK TECHNICIAN-C Andrzej Morales Attending Provider Zurita NETWORK TECHNICIAN, NETWORK TECHNICIAN-C Attending Provider Dr. Brady Escalera Attending Provider Dr. Brady Escalera Other Provider Dr. Pedro Gonzalez MD Primary Care Provider Dr. Pedro Gonzalez MD Referring Provider Roof NETWORK TECHNICIAN-C, Andrzej Morales Attending Provider Isis NETWORK TECHNICIAN-C, Andrzej Morales Referring Provider Dr. Pedro Gonzalez MD Primary Care Provider Melodie NETWORK TECHNICIAN-C, Karo Attending Provider Melodie NETWORK TECHNICIAN-C, Karo Referring Provider Jose Lopez MD Emergency Provider Sophia BROOKS, Dr. Merlos Admit Provider Unavailable Sophia BROOKS, Dr. Merlos Attending Provider Unavailjourdan Cortes MD, Dr. Merlos Other Provider Unavailable Eamon BROOKS, Dr. Samaniego Attending Provider Dr. Pedro Gonzalez MD Referring Provider Roof NETWORK TECHNICIAN-C, Andrzej Morales Attending Provider Eamon BROOKS, Dr. Samaniego Attending Provider Dr. Pedro Gonzalez MD Referring Provider Dr. Maryanne Emanuel DO Emergency Provider Julita BROOKS, Dr. Rea Santiago Attending Provider Julita BROOKS, Dr. Rea Santiago Admit Provider Julita BROOKS, Dr. Rea Sanitago Referring Provider Abdifatah BROOKS, Dr. Corona Other Provider Lizzie BROOKS, Dr. Flores Other Provider Rosibel BROOKS, Dr. Hummel Other Provider Chemo BROOKS, Dr. Zamarripa Other Provider [phone] Tarik TILLEY, Dr. Croft Other Provider Radha [...] Provider Dr. Delon Jarrell DO Other Provider [phone] Dr. Gagandeep Olmos MD Other Provider Emile BROOKS, Dr. Maria Other Provider Dr. Wilmer Chong DO Other Provider Thien BROOKS, Dr. Long Other Provider Tad BROOKS, Dr. Szymanski Other Provider [phone] Julita BROOKS, Dr. Rea Santiago Other Provider [phone] Chastity BROOKS, Dr. Glen Driver Other Provider Harvey TILLEY, Dr. Saini Attending Provider Mandy TILLEY, Dr. Vasquez Other Provider Lizzie BROOKS, Dr. Flores Other Provider Rosibel BROOKS, Dr. Hummel Other Provider Chemo BROOKS, Dr. Zamarripa Other Provider Tarik TILLEY, Dr. Croft Other Provider Radha BROOKS, Dr. Gaurang Melgar Other Provider Su BROOKS, Dr. Ferro Other Provider [phone] Valeriy BROOKS, Dr. Brink Other Provider [phone] Velia BROOKS, Dr. Johnson Other Provider Iliana BROOKS, Dr. Rodriguez Other Provider [phone] Jose M BROOKS, Dr. Braxton Other Provider [phone] Ascencion BROOKS, Dr. Velasquez Other Provider Ammy BROOKS, Dr. Menjivar Other Provider Sierra BROOKS, Dr. Cortez Other Provider Unavailabl roz Benson MD, Dr. Walker Other Provider [phone] Heath Zendejas MD Other Provider Fernando BROOKS, Dr. Ace Other Provider [phone] Mohit Guevara MD Other Provider Dr. Delon Jarrell DO Other Provider [phone] Amarilis BROOKS, Dr. Donis Other Provider [phone] Dr. Crow Baptiste MD Other Provider [phone] Wilmer Chong DO Other Provider Thien BROOKS, Dr. Alves Other Provider Tad BROOKS, Dr. Szymanski Other Provider [phone] Dr. Pedro Galvan DO Attending Provider Abdifatah BROOKS, Dr. Corona Attending Provider Dr. Lang Guzman DO Attending Provider [phone] Matthew BROOKS, Dr. Kahn Attending Provider Chastity BROOKS, Dr. Glen Driver Attending Provider Harvey TILLEY, Dr. Saini Other Provider Roof NETWORK TECHNICIAN-C, Andrzej H Referring Provider Carlos BROOKS, Dr. Vasquez Primary Care Provider Simon BROOKS, Dr. Truong Emergency Provider Unavailab le Gonzalez VSC, Pedro Referring Unavailable Gonzalez VSC, Pedro Primary Care Unavailable Roof NETWORK TECHNICIAN, Andrzej H Attending Unavailable Roof NETWORK TECHNICIAN, Andrzej H Attending Unavailable Gonzalez, Pedro Primary Care Unavailable Gonzalez, Pedro Referring Unavailable Gonzalez, Pedro Primary Care Unavailable Gonzalez, Pedro Attending Unavailable Gaurang Cortes Admitting Unavailable Gaurang Cortes Attending Unavailable Gonzalez, Pedro Primary Care Unavailable Gonzalez, Pedro Primary Care Unavailable Glen Haywood Attending Unavailable White, Rea L Admitting Unavailable White, Rea L Referring Unavailable White, Rea L Consulting Unavailable Abdifatah, Fairchance Consulting Unavailable Wanek, Glen A Consulting Unavailable Jopperi, Pedro Consulting Unavailable Jopperi, Pedro Attending Unavailable Abdifatah, Cj Attending Unavailable Gonzalez, Pedro Primary Care Unavailable Aden Knutson Attending Unavailable Gonzalez, Pedro Primary Care Unavailable Abdifatah, Cj Attending Unavailable Gonzalez, Pedro Primary Care Unavailable Roof NETWORK TECHNICIAN, Andrzej H Referring Unavailable Gonzalez, Pedro Primary Care Unavailable Yeny Gabriel Attending Unavailable White, Rea L Referring Unavailable White, Rea L Admitting Unavailable White, Rea L Consulting Unavailable Abdifatah, Cj Consulting Unavailable Wanek, Glen A Consulting Unavailable Jopperi, Pedro Consulting Unavailable Gonzalez, Pedro Primary Care Unavailable Gonzalez, Pedro Attending Unavailable Roof NETWORK TECHNICIAN, Andrzej H Referring Unavailable Roof NETWORK TECHNICIAN, Andrzej H Attending Unavailable Gonzalez VSC, Pedro Primary Care Unavailable Gonzalez, Pedro Primary Care Unavailable Roof NETWORK TECHNICIAN, Andrzej H Attending Unavailable Roof NETWORK TECHNICIAN, Andrzej H Referring Unavailable Gonzalez, Pedro Primary Care Unavailable Gonzalez VSC, Pedro Referring Unavailable Roof NETWORK TECHNICIAN, Andrzej H Attending Unavailable Gonzalez, Pedro Primary Care Unavailable Roof NETWORK TECHNICIAN, Andrzej H Attending Unavailable Gonzalez, Pedro Referring Unavailable Gonzalez, Pedro Primary Care Unavailable Roof NETWORK TECHNICIAN, Andrzej H Attending Unavailable Gonzalez, Pedro Referring Unavailable Yeny Gabriel Consulting Unavailable Yeny Gabriel Attending Unavailable Gonzalez, Pedro Attending Unavailable Gonzalez, Pedro Primary Care Unavailable Gonzalez, Pedro Referring Unavailable Melodie NETWORK TECHNICIAN, Karo Referring Unavailable Melodie NETWORK TECHNICIAN, Karo Attending Unavailable Gonzalez, Pedro Primary Care Unavailable Gonzalez, Pedro Primary Care Unavailable Melodie NETWORK TECHNICIAN, Karo Referring Unavailable Melodie NETWORK TECHNICIAN, Karo Attending Unavailable Gonzalez, Pedro Primary Care Unavailable Roof NETWORK TECHNICIAN, Andrzej H Attending Unavailable Gonzalez, Pedro Referring [...] Care Unavailable Dionne Montes Attending Unavailable Roof NETWORK TECHNICIAN-CAndrzej Attending Physician Carlos BROOKS, Dr. Vasquez Primary Care Physician [...] Lizzie BROOKS, Dr. Flores Nurse Practitioner [phone] Rosibel BROOKS, Dr. Hummel Nurse Practitioner Chemo BROOKS, Dr. Zamarripa Nurse Practitioner [phone] Tarik TILLEY, Dr. Croft Nurse Practitioner Radha BROOKS, Dr. Gaurang Melgar Nurse Practitioner Su BROOKS, Dr. Ferro Nurse Practitioner Valeriy BROOKS, Dr. Brink Nurse Practitioner [phone] Velia BROOKS, Dr. Johnson Nurse Practitioner Iliana BROOKS, Dr. Rodriguez Nurse Practitioner [phone] Jose M BROOKS, Dr. Braxton Nurse Practitioner [phone] Ascencion BROOKS, Dr. Velasquez Nurse Practitioner [phone] Ammy BROOKS, Dr. Menjivar Nurse Practitioner [phone], [address] Cortez Nurse Practitioner Unavail tommy Benson MD, Dr. Walker Nurse Practitioner [phone] Jessica BROOKS, Dr. Joe Nurse Practitioner [phone] Fernando BROOKS, Dr. Ace Nurse Practitioner Paola BROOKS, Dr. Rueda Nurse Practitioner [phone] Wesly TILLEY, Dr. Jernigan Nurse Practitioner Amarilis BROOKS, Dr. Donis Nurse Practitioner [phone] Emile BROOKS, Dr. Maria Nurse Practitioner Castillo TILLEY, Dr. Guillen Nurse Practitioner [phone] Thien BROOKS, Dr. Alves Nurse Practitioner Tad BROOKS, Dr. Szymanski Nurse Practitioner Mandy TILLEY, Dr. Vasquez Attending Physician Abdifatah BROOKS, Dr. Corona Attending Physician Dr. Lang Guzman DO Attending Physician Matthew BROOKS, Dr. Kahn Attending Physician Chastity BROOKS, Dr. Glen Driver Attending Physician Harvey TILLEY, Dr. Saini Nurse Practitioner Carlos BROOKS, Dr. Vasquez Referring Provider Simon BROOKS, Dr. Truong Attending Physician [facility] sheela Montes MD, Dr. Truong Emergency Department Physici an Unavailable Carlos BROOKS, Dr. Vasquez Attending Physician Allergies Allergy Classification Reported Allergen(s) Allergy Type Date of Onset Reaction(s) Facility (1 source) Hmg-Coa Reductase Inhibitors (Statins); Translations: [KUMZKKA-CNY-KMR REDUCTASE INHIBITORS] Propensity to adverse reactions to drug (disorder) 8 AOF [facility] Repository (1 source) NO KNOWN ALLERGIES; Translations: [NO KNOWN ALLERGIES] Propensity to adverse reactions to drug (disorder) [facility] Repository Medications Current Medications Medication Drug [...] take 1 capsule by mouth twice daily Alma-3 Fatty Acids 1,250 mg capsule Discontinued 1250 [...] Acute and unspecified renal failure (8 sources) Syijp-ke-qpksyxg renal failure; Translations: [Acute kidney failure, unspecified] [...] disease (20 sources) Atherosclerotic heart disease of [place] coronary artery without angina pectoris; Translations: [Coronary atherosclerosis] Onset: 8 Chronic Comment on above: PTCA of anastomosis of GRAJEDA to LAD January 2002; PTCA of the RCA 04/14; 11/[address] [facility] - patent grafts;PCI/ENE to the ostial, proximal, [...] Auto (Unsp spec) [#/Vol] 1.88 10*3/uL 0.83-4.51 [facility] Absolute neutrophil countOrd ered By: Pedro Gonzalez on 04-16-2025 Neutrophils (Bld) [#/Vol] 3.4 10*3/uL 2.0-7.7 [facility] Anion gap in Serum or Plasma Ordered By: Pedro Gonzalez on 04-16-2025 Anion gap [Moles/Vol] 14 mmol/L 5- [facility] Automated lymphocyte count a s percentage of total leukocytesOrdered By: Pedro Gonzalez on 04-16-2025 Lymphocytes/100 WBC Auto (Unsp spec) 30.7 % -41 [facility] BUN/creatinine ratioOrdered By: Pedro Gonzalez on 04-16-2025 Urea nitrogen/Creatinine [Mass ratio] 20.7 mg/mg High 10-20 [facility] Basic Metabolic Profile (BMP )on 04-16-2025 BUN Normal 4-19 [facility] Comment on above: Result Comment: CMP ORDERED Performed By: #### L 500.2500 ####[facility] [address] [place], [address] BUN/CRE Normal 10-20 [facility] Comment on above: Result Comment: CMP ORDERED Performed By: #### L 500.2500 ####[facility] [address] [place], [address] Calcium Normal 7.6-11.0 [facility] Comment on above: Result Comment: CMP ORDERED Performed By: #### L 500.2500 ####[facility] [address] [place], [address] CL Normal 98-108 [facility] Comment on above: Result Comment: CMP ORDERED Performed By: #### L 500.2500 ####[facility] [address] [place], [address] CO2 Normal 21.0-32.0 [facility] Comment on above: Result Comment: CMP ORDERED Performed By: #### L 500.2500 ####[facility] [address] [place], [address] CREAT,SERUM Normal 0.70-1.20 [facility] Comment on above: Result Comment: CMP ORDERED Performed By: #### L 500.2500 ####[facility] [address] [place], [address] eGFR Normal >60 [facility] Comment on above: Result Comment: CMP ORDERED Performed By: #### L 500.2500 ####[facility] [address] [place], [address] GAP Normal 5-15 [facility] Comment on above: Result Comment: CMP ORDERED Performed By: #### L 500.2500 ####[facility] [address] [place], [address] GLU Normal 70-99 [facility] Comment on above: Result Comment: CMP ORDERED Performed By: #### L 500.2500 ####[facility] [address] [place], [address] Potassium Normal 3.3-5.1 [facility] Comment on above: Result Comment: CMP ORDERED Performed By: #### L 500.2500 ####[facility] [address] [place], [address] Basic Metabolic Profile (BMP) Normal 133-145 [facility] Comment on above: Result Comment: CMP ORDERED Performed By: #### L 500.2500 ####[facility] [address] [place], [address] Basophil percentageOrdered B y: Pedro Gonzalez on 04-16-2025 Basophils/100 WBC (Bld) 0.8 % 0-1 [facility] Bilirubin, totalOrdered By: Pedro Gonzalez on 04-16-2025 Bilirubin [Mass/Vol] 1.25 mg/dL 0.00-1.30 [facility] CBC W/Diff, Automatedon Absolute Lymph 1.88 X10 3/uL Normal 0.83-4.51 [facility] Comment on above: Order Comment: Order Date: 12/03/24Order Info: 0184-1 - CBCD Performed By: #### L 100.0100, L500.4050 ####[facility] [address] [place], [address] Absolute Neut 3.4 X10 3/uL Normal 2.0-7.7 [facility] Comment on above: Order Comment: Order Date: 12/03/24Order Info: 0184-1 - CBCD Performed By: #### L 100.0100, L500.4050 ####[facility] [address] [place], [address] Basophils/100 WBC (Bld) 0.8 % Normal 0-1 [facility] Comment on above: Order Comment: Order Date: 12/03/24Order Info: 0184-1 - CBCD Performed By: #### L 100.0100, L500.4050 ####[facility] [address] [place], [address] Eosinophils/100 WBC (Bld) 2.1 % Normal 0-5 [facility] Comment on above: Order Comment: Order Date: 12/03/24Order Info: 0184-1 - CBCD Performed By: #### L 100.0100, L500.4050 ####[facility] [address] [place], [address] Erythrocyte distribution width (RBC) [Ratio] 17.0 % High 11.6-14.6 [facility] Comment on above: Order Comment: Order Date: 12/03/24Order Info: 0184-1 - CBCD Performed By: #### L 100.0100, L500.4050 ####[facility] [address] [place], [address] Hematocrit (Bld) [Volume fraction] 37.1 % Low 40-54 [facility] Comment on above: Order Comment: Order Date: 12/03/24Order Info: 0184-1 - CBCD Performed By: #### L 100.0100, L500.4050 ####[facility] [address] [place], [address] Hemoglobin (Bld) [Mass/Vol] 11.8 g/dL Low 13.0-16.5 [facility] Comment on above: Order Comment: Order Date: 12/03/24Order Info: 0184-1 - CBCD Performed By: #### L 100.0100, L500.4050 ####[facility] [address] [place], [address] IG% 0.200 Normal 0.0-0.9 [facility] Comment on above: Order Comment: Order Date: 12/03/24Order Info: 0184-1 - CBCD Result Comment: IG% - Immature Granulocytes (promyelocytes, myelocytes andmetamyelocytes) > 1% indicates that a LEFT SHIFT is Present. Performed By: #### L 100.0100, L500.4050 ####[facility] [address] [place], [address] Lymphocytes/100 WBC (Bld) 30.7 % Normal 19-41 [facility] Comment on above: Order Comment: Order Date: 12/03/24Order Info: 0184-1 - CBCD Performed By: #### L 100.0100, L500.4050 ####[facility] [address] [place], [address] MCH (RBC) [Entitic mass] 29.3 pg Normal 27.0-32.0 [facility] Comment on above: Order Comment: Order Date: 12/03/24Order Info: 0184-1 - CBCD Performed By: #### L 100.0100, L500.4050 ####[facility] [address] [place], [address] MCHC (RBC) [Mass/Vol] 31.8 g/dL Low 32-36 [facility] Comment on above: Order Comment: Order Date: 12/03/24Order Info: 0184-1 - CBCD Performed By: #### L 100.0100, L500.4050 ####[facility] [address] [place], [address] MCV (RBC) [Entitic vol] 92.1 fL Normal 80-94 [facility] Comment on above: Order Comment: Order Date: 12/03/24Order Info: 0184-1 - CBCD Performed By: #### L 100.0100, L500.4050 ####[facility] [address] [place], [address] Monocytes/100 WBC (Bld) 10.1 % High 0-10 [facility] Comment on above: Order Comment: Order Date: 12/03/24Order Info: 0184-1 - CBCD Performed By: #### L 100.0100, L500.4050 ####[facility] [address] [place], [address] Neutrophils/100 WBC (Bld) 56.1 % Normal 47-70 [facility] Comment on above: Order Comment: Order Date: 12/03/24Order Info: 0184-1 - CBCD Performed By: #### L 100.0100, L500.4050 ####[facility] [address] [place], [address] Nucleated RBC (Bld) [#/Vol] 0 10*3/uL Normal 0-5 [facility] Comment on above: Order Comment: Order Date: 12/03/24Order Info: 0184-1 - CBCD Performed By: #### L 100.0100, L500.4050 ####[facility] [address] [place], [address] Platelet mean volume (Bld) [Entitic vol] 10.9 fL Normal 6.2-12.0 [facility] Comment on above: Order Comment: Order Date: 12/03/24Order Info: 0184-1 - CBCD Performed By: #### L 100.0100, L500.4050 ####[facility] [address] [place], [address] Platelets (Bld) [#/Vol] 144 10*3/uL Low 150-450 [facility] Comment on above: Order Comment: Order Date: 12/03/24Order Info: 0184-1 - CBCD Performed By: #### L 100.0100, L500.4050 ####[facility] [address] [place], [address] RBC (Bld) [#/Vol] 4.03 10*6/uL Low 4.6-6.2 [facility] Comment on above: Order Comment: Order Date: 12/03/24Order Info: 0184-1 - CBCD Performed By: #### L 100.0100, L500.4050 ####[facility] [address] [place], [address] RDW SD 57.1 fl High 35.1-43.9 [facility] Comment on above: Order Comment: Order Date: 12/03/24Order Info: 0184-1 - CBCD Performed By: #### L 100.0100, L500.4050 ####[facility] [address] [place], [address] WBC (Bld) [#/Vol] 6.1 10*3/uL Normal 4.4-11.0 [facility] Comment on above: Order Comment: Order Date: 12/03/24Order Info: 0184-1 - CBCD Performed By: #### L 100.0100, L500.4050 ####[facility] [address] [place], [address] Carbon dioxide, total [Moles /volume] in Central venous bloodOrdered By: Pedro Gonzalez on 04-16-2025 CO2 [Moles/Vol] 24.6 mmol/L 21.0-32.0 [facility] Chloride assayOrdered By: Wesley Gonzalez on 04-16-2025 Chloride [Moles/Vol] 102 mmol/L 98-108 [facility] Comprehensive Metabolic Prof ilon 04-16-2025 Albumin [Mass/Vol] 4.0 g/dL Normal 3.4-4.8 [facility] Comment on above: Order Comment: Order Date: 12/03/24Order Info: 0786-1 - CMP Performed By: #### L 100.0100, L500.4050 ####[facility] [address] [place], [address] Albumin/Globulin [Mass ratio] 1.3 {ratio} Normal 0.9-2.4 [facility] Comment on above: Order Comment: Order Date: 12/03/24Order Info: 0786-1 - CMP Performed By: #### L 100.0100, L500.4050 ####[facility] [address] [place], [address] ALK PHOS 111 U/L Normal 40-129 [facility] Comment on above: Order Comment: Order Date: 12/03/24Order Info: 0786-1 - CMP Performed By: #### L 100.0100, L500.4050 ####[facility] [address] [place], [address] ALT [Catalytic activity/Vol] 23 U/L Normal <=46 [facility] Comment on above: Order Comment: Order Date: 12/03/24Order Info: 0786-1 - CMP Performed By: #### L 100.0100, L500.4050 ####[facility] [address] [place], [address] AST [Catalytic activity/Vol] 27 U/L Normal <=37 [facility] Comment on above: Order Comment: Order Date: 12/03/24Order Info: 0786-1 - CMP Performed By: #### L 100.0100, L500.4050 ####[facility] [address] [place], [address] Bilirubin [Mass/Vol] 1.25 mg/dL Normal 0.00-1.30 [facility] Comment on above: Order Comment: Order Date: 12/03/24Order Info: 0786-1 - CMP Performed By: #### L 100.0100, L500.4050 ####[facility] [address] [place], [address] BUN/CRE 20.7 RATIO High 10-20 [facility] Comment on above: Order Comment: Order Date: 12/03/24Order Info: 0786-1 - CMP Performed By: #### L 100.0100, L500.4050 ####[facility] [address] [place], [address] Calcium [Mass/Vol] 9.4 mg/dL Normal 7.6-11.0 [facility] Comment on above: Order Comment: Order Date: 12/03/24Order Info: 0786-1 - CMP Performed By: #### L 100.0100, L500.4050 ####[facility] [address] [place], [address] Chloride [Moles/Vol] 102 mmol/L Normal 98-108 [facility] Comment on above: Order Comment: Order Date: 12/03/24Order Info: 0786-1 - CMP Performed By: #### L 100.0100, L500.4050 ####[facility] [address] [place], [address] CO2 [Moles/Vol] 24.6 mmol/L Normal 21.0-32.0 [facility] Comment on above: Order Comment: Order Date: 12/03/24Order Info: 0786-1 - CMP Performed By: #### L 100.0100, L500.4050 ####[facility] [address] [place], [address] Creatinine [Mass/Vol] 1.54 mg/dL High 0.70-1.20 [facility] Comment on above: Order Comment: Order Date: 12/03/24Order Info: 0786-1 - CMP Performed By: #### L 100.0100, L500.4050 ####[facility] [address] [place], [address] GAP 14 Normal 5-15 [facility] Comment on above: Order Comment: Order Date: 12/03/24Order Info: 0786-1 - CMP Performed By: #### L 100.0100, L500.4050 ####[facility] [address] [place], [address] GFR/1.73 sq M.predicted among non-blacks MDRD (S/P/Bld) [Vol rate/Area] 44 mL/min/{1.73_m2} Low >60 [facility] Comment on above: Order Comment: Order Date: 12/03/24Order Info: 0786-1 - CMP Result Comment: mL/m in/1.73m2 CKD-EPI Creatinine Equation (2020) Performed By: #### L 100.0100, L500.4050 ####[facility] [address] [place], [address] Globulin (S) [Mass/Vol] 3.0 g/dL Normal 2.2-4.2 [facility] Comment on above: Order Comment: Order Date: 12/03/24Order Info: 0786-1 - CMP Performed By: #### L 100.0100, L500.4050 ####[facility] [address] [place], [address] Glucose [Mass/Vol] 100 mg/dL High 70-99 [facility] Comment on above: Order Comment: Order Date: 12/03/24Order Info: 0786-1 - CMP Performed By: #### L 100.0100, L500.4050 ####[facility] [address] [place], [address] Potassium [Moles/Vol] 4.2 mmol/L Normal 3.3-5.1 [facility] Comment on above: Order Comment: Order Date: 12/03/24Order Info: 0786-1 - CMP Performed By: #### L 100.0100, L500.4050 ####[facility] [address] [place], [address] Sodium [Moles/Vol] 140 mmol/L Normal 133-145 [facility] Comment on above: Order Comment: Order Date: 12/03/24Order Info: 0786-1 - CMP Performed By: #### L 100.0100, L500.4050 ####[facility] [address] [place], [address] T PROT 7.0 g/dL Normal 5.9-8.4 [facility] Comment on above: Order Comment: Order Date: 12/03/24Order Info: 0786-1 - CMP Performed By: #### L 100.0100, L500.4050 ####[facility] [address] [place], [address] Urea nitrogen [Mass/Vol] 32 mg/dL High 4-19 [facility] Comment on above: Order Comment: Order Date: 12/03/24Order Info: 0786-1 - CMP Performed By: #### L 100.0100, L500.4050 ####[facility] [address] [place], [address] Eosinophil percentageOrdered By: Pedro Gonzalez on 04-16-2025 Eosinophils/100 WBC (Bld) 2.1 % 0-5 [facility] Erythrocyte distribution wid th ratioOrdered By: Pedro Gonzalez on 04-16-2025 Erythrocyte distribution width (RBC) [Ratio] 17.0 % High 11.6-14.6 [facility] Erythrocyte distribution wid th standard deviationOrdered By: Pedro Gonzalez on 04-16-2025 Erythrocyte distribution width (RBC) [Ratio] 57.1 fl High 35.1-43.9 [facility] Glomerular filtration rate ( GFR) estimation/1.73 sq m using serum, plasma, or whole bOrdered By: Pedro Gonzalez on 04-16-2025 GFR/1.73 sq M.predicted among non-blacks MDRD (S/P/Bld) [Vol rate/Area] 44 mL/min/{1.73_m2} Low >60 [facility] Comment on above: mL/min/1.73m2 CKD-EP I Creatinine Equation (2020) Hematocrit Auto (Bld) [Volum e fraction]Ordered By: Pedro Gonzalez on 04-16-2025 Hematocrit (Bld) [Volume fraction] 37.1 % Low 40-54 [facility] Hemoglobin measurementOrdere d By: Pedro Gonzalez on 04-16-2025 Hemoglobin (Bld) [Mass/Vol] 11.8 g/dL Low 13.0-16.5 [facility] Immature granulocytes/100 WB C Auto (Bld)Ordered By: Pedro Gonzalez on 04-16-2025 Immature granulocytes/100 WBC (Bld) 0.200 % 0.0-0.9 [facility] Comment on above: IG% - Immature Granu locytes (promyelocytes, myelocytes and metamyelocytes) > 1% indicates that a LEFT SHIFT is Present. Laboratory - Chemistry and C hemistry - challengeOrdered By: Pedro Gonzalez on 04-16-2025 AST [Catalytic activity/Vol] 27 U/L <38 [facility] MCV (mean corpuscular volume ) determinationOrdered By: Pedro Gonzalez on 04-16-2025 MCV (RBC) [Entitic vol] 92.1 fL 80-94 [facility] Mean corpuscular hemoglobin (MCH) determinationOrdered By: Pedro Gonzalez on 04-16-2025 MCH (RBC) [Entitic mass] 29.3 pg 27.0-32.0 [facility] Mean corpuscular hemoglobin concentration (MCHC) determinationOrdered By: Pedro Gonzalez on 04-16-2025 MCHC (RBC) [Mass/Vol] 31.8 g/dL Low 32-36 [facility] Mean platelet volume determi nationOrdered By: Pedro Gonzalez on 04-16-2025 Platelet mean volume (Bld) [Entitic vol] 10.9 fL 6.2-12.0 [facility] Monocyte percentageOrdered B y: Pedro Gonzalez on 04-16-2025 Monocytes/100 WBC (Bld) 10.1 % High 0-10 [facility] Natriuretic peptide.B prohor alirio N-Terminal [Mass/volume] in Serum or PlasmaOrdered By: Pedro Gonzalez on 04-16-2025 Natriuretic peptide.B prohormone N-Terminal [Mass/Vol] 8529 pg/mL High <1800 [facility] Comment on above: Heart Failure Unlike ly: < 300 pg/mLHeart Failure Likely< 50 Years: > 450 pg/mL50-75 Years: > 900 pg/mL>75 Years: > 1800 pg/mL Neutrophil percentageOrdered By: Pedro Gonzalez on 04-16-2025 Neutrophils/100 WBC (Bld) 56.1 % 47-70 [facility] Nucleated red blood cell per centageOrdered By: Pedro Gonzalez on 04-16-2025 Nucleated RBC/100 WBC (Bld) [Ratio] 0 % 0-5 [facility] Platelet countOrdered By: Wesley Gonzalez on 04-16-2025 Platelets (Bld) [#/Vol] 144 10*3/uL Low 150-450 [facility] Potassium measurement (mass/ volume)Ordered By: Pedro Gonzalez on 04-16-2025 Potassium (Unsp spec) [Mass/Vol] 4.2 mmol/L 3.3-5.1 [facility] Pro- Brain NATRIURETIC PEPTI Paola 04-16-2025 Natriuretic peptide B (Bld) [Mass/Vol] 8529 pg/mL High <=1800 [facility] Comment on above: Order Comment: Order Date: 12/03/24Order Info: 0786-1 - [facility] Result Comment: Hear t Failure Unlikely: < 300 pg/mLHeart Failure Likely< 50 Years: > 450 pg/mL50-75 Years: > 900 pg/mL>75 Years: > 1800 pg/mL Performed By: #### L 503.7505 ####[facility] [address] [place], [address] RBC Auto (Bld) [#/Vol]Ordere d By: Pedro Gonzalez on 04-16-2025 RBC (Bld) [#/Vol] 4.03 10*6/uL Low 4.6-6.2 [facility] Serum creatinine measurement (mass/volume)Ordered By: Pedro Gonzalez on 04-16-2025 Creatinine [Mass/Vol] 1.54 mg/dL High 0.70-1.20 [facility] Serum globulin measurementOr dered By: Pedro Gonzalez on 04-16-2025 Globulin (S) [Mass/Vol] 3.0 g/dL 2.2-4.2 [facility] Serum glucose measurement (m ass/volume)Ordered By: Pedro Gonzalez on 04-16-2025 Glucose [Mass/Vol] 100 mg/dL High 70-99 [facility] Serum or plasma alanine holm otransferase (ALT) measurementOrdered By: Pedro Gonzalez on 04-16-2025 ALT [Catalytic activity/Vol] 23 U/L <47 [facility] Serum or plasma albumin kelli urement (mass/volume)Ordered By: Pedro Gonzalez on 04-16-2025 Albumin [Mass/Vol] 4.0 g/dL 3.4-4.8 [facility] Serum or plasma albumin/glob ulin mass ratioOrdered By: Pedro Gonzalez on 04-16-2025 Albumin/Globulin [Mass ratio] 1.3 {ratio} 0.9-2.4 [facility] Serum or plasma alkaline karen sphatase measurementOrdered By: Pedro Gonzalez on 04-16-2025 ALP [Catalytic activity/Vol] 111 U/L 40-129 [facility] Serum or plasma calcium kelli urement (mass/volume)Ordered By: Pedro Gonzalez on 04-16-2025 Calcium [Mass/Vol] 9.4 mg/dL 7.6-11.0 [facility] Serum or plasma urea nitroge n measurement (mass/volume)Ordered By: Pedro Gonzalez on 04-16-2025 Urea nitrogen [Mass/Vol] 32 mg/dL High 4-19 [facility] Sodium levelOrdered By: Pedro Gonzalez on 04-16-2025 Sodium [Moles/Vol] 140 mmol/L 133-145 [facility] Total proteinOrdered By: Sophia Gonzalez on 04-16-2025 Protein [Mass/Vol] 7.0 g/dL 5.9-8.4 [facility] White blood cell (WBC) count Ordered By: Pedro Gonzalez on 04-16-2025 WBC (Bld) [#/Vol] 6.1 10*3/uL 4.4-11.0 [facility] Cardiology Visit Reporton Cardiology Visit Report Normal [facility] 12 Lead EKGon 04-02-2025 12 Lead EKG Normal [facility] Absolute lymphocyte countOrd ered By: Dionne Montes on 04-02-2025 Lymphocytes Auto (Unsp spec) [#/Vol] 1.68 10*3/uL 0.83-4.51 [facility] Absolute neutrophil countOrd ered By: Dionne Montes on 04-02-2025 Neutrophils (Bld) [#/Vol] 4.3 10*3/uL 2.0-7.7 [facility] Anion gap in Serum or Plasma Ordered By: Dionne Montes on 04-02-2025 Anion gap [Moles/Vol] 12 mmol/L 5-15 [facility] Automated blood erythrocyte countOrdered By: Dionne Montes on 04-02-2025 RBC (Bld) [#/Vol] 3.99 10*6/uL Low 4.6-6.2 [facility] Comment on above: Performed By: #### L 503.7505, L500.2500, L100.0100 ####[facility] [address] [place], [place], [id number] Automated blood hematocrit ( percentage)Ordered By: Dionne Montes on 04-02-2025 Hematocrit (Bld) [Volume fraction] 36.8 % Low 40-54 [facility] Comment on above: Performed By: #### L 503.7505, L500.2500, L100.0100 ####[facility] [address] [place], [address] Automated lymphocyte count a s percentage of total leukocytesOrdered By: Dionne Montes on 04-02-2025 Lymphocytes/100 WBC Auto (Unsp spec) 24.8 % - [facility] BUN/creatinine ratioOrdered By: Dionne Simon on 04-02-2025 Urea nitrogen/Creatinine [Mass ratio] 19.2 mg/mg 06-02 [facility] Basic Metabolic Profile (BMP )on 04-02-2025 BUN/CRE 19.2 RATIO Normal - [facility] Comment on above: Performed By: #### L 503.7505, L500.2500, L100.0100 ####[facility] [address] [place], [address] ECRCL 38.10 ml/min Low 50-250 [facility] Comment on above: Performed By: #### L 503.7505, L500.2500, L100.0100 ####[facility] [address] [place], [address] GAP 12 Normal 5-15 [facility] Comment on above: Performed By: #### L 503.7505, L500.2500, L100.0100 ####[facility] [address] [place], [address] Potassium [Moles/Vol] 4.2 mmol/L Normal 3.3-5.1 [facility] Comment on above: Result Comment: Hemo lysis present, Results??could be affected.?? Performed By: #### L 503.7505, L500.2500, L100.0100 ####[facility] [address] [place], [address] Basophil percentageOrdered B y: Dionne Montes on 04-02-2025 Basophils/100 WBC (Bld) 0.6 % Normal 0-1 [facility] Comment on above: Performed By: #### L 503.7505, L500.2500, L100.0100 ####[facility] [address] [place], [address] CBC W/Diff, Automatedon 08-2 0-2024 Absolute Lymph 1.68 X10 3/uL Normal 0.83-4.51 [facility] Comment on above: Performed By: #### L 503.7505, L500.2500, L100.0100 ####[facility] [address] [place], [address] Absolute Neut 4.3 X10 3/uL Normal 2.0-7.7 [facility] Comment on above: Performed By: #### L 503.7505, L500.2500, L100.0100 ####[facility] [address] [place], [address] IG% 0.300 Normal 0.0-0.9 [facility] Comment on above: Result Comment: IG% - Immature Granulocytes (promyelocytes, myelocytes andmetamyelocytes) > 1% indicates that a LEFT SHIFT is Present. Performed By: #### L 503.7505, L500.2500, L100.0100 ####[facility] [address] [place], [address] Lymphocytes/100 WBC (Bld) 24.8 % Normal 19-41 [facility] Comment on above: Performed By: #### L 503.7505, L500.2500, L100.0100 ####[facility] [address] [place], [address] Nucleated RBC (Bld) [#/Vol] 0 10*3/uL Normal 0-5 [facility] Comment on above: Performed By: #### L 503.7505, L500.2500, L100.0100 ####[facility] [address] [place], [address] RDW SD 56.3 fl High 35.1-43.9 [facility] Comment on above: Performed By: #### L 503.7505, L500.2500, L100.0100 ####[facility] [address] [place], [address] Carbon dioxide, total [Moles /volume] in Central venous bloodOrdered By: Dionne Montes on 04-02-2025 CO2 [Moles/Vol] 24.8 mmol/L Normal 21.0-32.0 [facility] Comment on above: Performed By: #### L 503.7505, L500.2500, L100.0100 ####[facility] [address] [place], [address] Chest PA and Lateralon 04-02 Chest PA and Lateral Normal [facility] Chloride assayOrdered By: Wesley Montes on 04-02-2025 Chloride [Moles/Vol] 98 mmol/L Normal 98-108 [facility] Comment on above: Performed By: #### L 503.7505, L500.2500, L100.0100 ####[facility] [address] [place], [address] Emergency Department Summary on 04-02-2025 Emergency Department Summary Normal [facility] Eosinophil percentageOrdered By: Dionne Montes on 04-02-2025 Eosinophils/100 WBC (Bld) 1.5 % Normal 0-5 [facility] Comment on above: Performed By: #### L 503.7505, L500.2500, L100.0100 ####[facility] [address] [place], [address] Erythrocyte distribution wid th ratioOrdered By: Dionne Montes on 04-02-2025 Erythrocyte distribution width (RBC) [Ratio] 16.9 % High 11.6-14.6 [facility] Comment on above: Performed By: #### L 503.7505, L500.2500, L100.0100 ####[facility] [address] [place], [place], [id number] Erythrocyte distribution wid th standard deviationOrdered By: Dionne Montes on 04-02-2025 Erythrocyte distribution width (RBC) [Ratio] 56.3 fl High 35.1-43.9 [facility] Glomerular filtration rate ( GFR) estimation/1.73 sq m using serum, plasma, or whole bOrdered By: Dionne Montes on 04-02-2025 GFR/1.73 sq M.predicted among non-blacks MDRD (S/P/Bld) [Vol rate/Area] 47 mL/min/{1.73_m2} Low >60 [facility] Comment on above: mL/min/1.73m2 CKD-EP I Creatinine Equation (2020) Result Comment: mL/m in/1.73m2 CKD-EPI Creatinine Equation (2020) Performed By: #### L 503.7505, L500.2500, L100.0100 ####[facility] [address] [place], [place], [id number] Hemoglobin measurementOrdere d By: Dionne Montes on 04-02-2025 Hemoglobin (Bld) [Mass/Vol] 11.8 g/dL Low 13.0-16.5 [facility] Comment on above: Performed By: #### L 503.7505, L500.2500, L100.0100 ####[facility] [address] [place], [address] Immature granulocytes/100 WB C Auto (Bld)Ordered By: Dionne Montes on 04-02-2025 Immature granulocytes/100 WBC (Bld) 0.300 % 0.0-0.9 [facility] Comment on above: IG% - Immature Granu locytes (promyelocytes, myelocytes and metamyelocytes) > 1% indicates that a LEFT SHIFT is Present. L501.4021on 04-02-2025 Trop T High Sen 73 ng/L Invalid Interpretation Code <=22 [facility] Comment on above: Result Comment: Crit ical Result(s) Called at 1134: by: MILO KWAN.??Results read back by same. Performed By: #### L 501.4021 ####[facility] [address] [place], [address] MCV (mean corpuscular volume ) determinationOrdered By: Dionne Montes on 04-02-2025 MCV (RBC) [Entitic vol] 92.2 fL Normal 80-94 [facility] Comment on above: Performed By: #### L 503.7505, L500.2500, L100.0100 ####[facility] [address] [place], [address] Mean corpuscular hemoglobin (MCH) determinationOrdered By: Dionne Montes on 04-02-2025 MCH (RBC) [Entitic mass] 29.6 pg Normal 27.0-32.0 [facility] Comment on above: Performed By: #### L 503.7505, L500.2500, L100.0100 ####[facility] [address] [place], [address] Mean corpuscular hemoglobin concentration (MCHC) determinationOrdered By: Dionne Montes on 04-02-2025 MCHC (RBC) [Mass/Vol] 32.1 g/dL Normal 32-36 [facility] Comment on above: Performed By: #### L 503.7505, L500.2500, L100.0100 ####[facility] [address] [place], [address] Mean platelet volume determi nationOrdered By: Dionne Montes on 04-02-2025 Platelet mean volume (Bld) [Entitic vol] 10.4 fL Normal 6.2-12.0 [facility] Comment on above: Performed By: #### L 503.7505, L500.2500, L100.0100 ####[facility] [address] [place], [address] Monocyte percentageOrdered B y: Dionne Montes on 04-02-2025 Monocytes/100 WBC (Bld) 9.0 % Normal 0-10 [facility] Comment on above: Performed By: #### L 503.7505, L500.2500, L100.0100 ####[facility] [address] [place], [address] Natriuretic peptide.B prohor alirio N-Terminal [Mass/volume] in Serum or PlasmaOrdered By: Dionne Montes on 04-02-2025 Natriuretic peptide.B prohormone N-Terminal [Mass/Vol] 8907 pg/mL High <1800 [facility] Comment on above: Heart Failure Unlike ly: < 300 pg/mLHeart Failure Likely< 50 Years: > 450 pg/mL50-75 Years: > 900 pg/mL>75 Years: > 1800 pg/mL Neutrophil percentageOrdered By: Dionne Montes on 04-02-2025 Neutrophils/100 WBC (Bld) 63.8 % Normal 47-70 [facility] Comment on above: Performed By: #### L 503.7505, L500.2500, L100.0100 ####[facility] [address] [place], [address] Nucleated red blood cell per centageOrdered By: iDonne Montes on 04-02-2025 Nucleated RBC/100 WBC (Bld) [Ratio] 0 % 0-5 [facility] Platelet countOrdered By: Wesley Montes on 04-02-2025 Platelets (Bld) [#/Vol] 137 10*3/uL Low 150-450 [facility] Comment on above: Performed By: #### L 503.7505, L500.2500, L100.0100 ####[facility] [address] [place], [address] Potassium measurement (mass/ volume)Ordered By: Dionne Montes on 04-02-2025 Potassium (Unsp spec) [Mass/Vol] 4.2 mmol/L 3.3-5.1 [facility] Comment on above: Hemolysis present, R esults could be affected. Pro- Brain NATRIURETIC PEPTI Paola 04-02-2025 Natriuretic peptide B (Bld) [Mass/Vol] 8907 pg/mL High <=1800 [facility] Comment on above: Result Comment: Hear t Failure Unlikely: < 300 pg/mLHeart Failure Likely< 50 Years: > 450 pg/mL50-75 Years: > 900 pg/mL>75 Years: > 1800 pg/mL Performed By: #### L 503.7505, L500.2500, L100.0100 ####[facility] [address] [place], [address] Serum creatinine measurement (mass/volume)Ordered By: Dionne Montes on 04-02-2025 Creatinine [Mass/Vol] 1.45 mg/dL High 0.70-1.20 [facility] Comment on above: Performed By: #### L 503.7505, L500.2500, L100.0100 ####[facility] [address] [place], [address] Serum glucose measurement (m ass/volume)Ordered By: Dionne Montes on 04-02-2025 Glucose [Mass/Vol] 104 mg/dL High 70-99 [facility] Comment on above: Performed By: #### L 503.7505, L500.2500, L100.0100 ####[facility] [address] [place], [address] Serum or plasma calcium kelli urement (mass/volume)Ordered By: Dionne Montes on 04-02-2025 Calcium [Mass/Vol] 8.9 mg/dL Normal 7.6-11.0 [facility] Comment on above: Performed By: #### L 503.7505, L500.2500, L100.0100 ####[facility] [address] [place], [address] Serum or plasma urea nitroge n measurement (mass/volume)Ordered By: Dionne Montes on 04-02-2025 Urea nitrogen [Mass/Vol] 28 mg/dL High 4-19 [facility] Comment on above: Performed By: #### L 503.7505, L500.2500, L100.0100 ####[facility] [address] [place], [place], [id number] Sodium levelOrdered By: Pedro Montes on 04-02-2025 Sodium [Moles/Vol] 135 mmol/L Normal 133-145 [facility] Comment on above: Performed By: #### L 503.7505, L500.2500, L100.0100 ####[facility] [address] [place], [address] Troponin T HS 2 HRon 025 Trop T High Sen 67 ng/L Invalid Interpretation Code <=22 [facility] Comment on above: Result Comment: CRIT ICAL RESULTS CALLED TO RMSTRONG BY MILO TORO.RESULTS READ BACK BY SAME. 1409Hemolysis present, Results??could be affected.??Critical Result(s) Called at: by:??[facility] Performed By: #### L 499.0042 ####[facility] [address] [place], [address] Troponin T.cardiac [Mass/vol ume] in Serum or Plasma by High sensitivity methodOrdered By: Dionne Montes on 04-02-2025 Troponin T.cardiac High sensitivity method [Mass/Vol] 67 ng/L Critically high <22 [facility] Comment on above: CRITICAL RESULTS CHAITANYA LED TO ZARMSTRONG BY MILO TORO. RESULTS READ BACK BY SAME. 1409Hemolysis present, Results could be affected. Critical Result(s) Called at: by: Results read back by same. Troponin T.cardiac High sensitivity method [Mass/Vol] 73 ng/L Critically high <22 [facility] Comment on above: Delta: 108 on -1756Critical Result(s) Called at 1134: by: MILO TORO TO SOPHIA. Results read back by same. White blood cell (WBC) count Ordered By: Dionne Montes on 04-02-2025 WBC (Bld) [#/Vol] 6.8 10*3/uL Normal 4.4-11.0 [facility] Comment on above: Performed By: #### L 503.7505, L500.2500, L100.0100 ####[facility] [address] [place], [place], [address] Cardiology Visit Reporton Cardiology Visit Report Normal [facility] Cardiology Visit Reporton Cardiology Visit Report Normal [facility] Culture, Blood (WB)on 2024 CUB Blood cultures x2, f rom two different sites No growth in 5 days. Normal [facility] Comment on above: Performed By: #### M 200.1000, L501.4021, L300.4310, L100.0100, L503.6005, L300.3900, L501.5200, L500.4050 ####[facility] [address] [place], [address] Absolute lymphocyte countOrd ered By: Pedro Galvan on 02-08-2025 Lymphocytes Auto (Unsp spec) [#/Vol] 2.21 10*3/uL 0.83-4.51 [facility] Absolute neutrophil countOrd ered By: Pedro Galvan on 02-08-2025 Neutrophils (Bld) [#/Vol] 2.9 10*3/uL 2.0-7.7 [facility] Anion gap in Serum or Plasma Ordered By: Pedro Galvan on 02-08-2025 Anion gap [Moles/Vol] 12 mmol/L 5-15 [facility] Automated lymphocyte count a s percentage of total leukocytesOrdered By: Pedro Galvan on 02-08-2025 Lymphocytes/100 WBC Auto (Unsp spec) 38.6 % 19-41 [facility] BUN/creatinine ratioOrdered By: Pedro Galvan on 02-08-2025 Urea nitrogen/Creatinine [Mass ratio] 21.9 mg/mg High 10-20 [facility] Basophil percentageOrdered B y: Pedro Galvan on 02-08-2025 Basophils/100 WBC (Bld) 0.3 % 0-1 [facility] Bilirubin, totalOrdered By: Pedro Galvan on 02-08-2025 Bilirubin [Mass/Vol] 0.62 mg/dL 0.00-1.30 [facility] Blood polychromasia detectio n by light microscopyOrdered By: Pedro Galvan on 02-08-2025 Polychromasia LM Ql (Bld) 1+ [facility] CBC W/Diff, Automatedon 01-13 POLYCHROMASIA 1+ Normal [facility] Comment on above: Performed By: #### L 500.4050, L100.0100 ####[facility] [address] [place], [address] ATYPICAL LYMPH 2+ Normal [facility] Comment on above: Performed By: #### L 500.4050, L100.0100 ####[facility] [address] [place], [address] PLT EST SLT DEC Normal ADEQ [facility] Comment on above: Performed By: #### L 500.4050, L100.0100 ####[facility] [address] [place], [address] PLT MORPH GIANT Normal [facility] Comment on above: Performed By: #### L 500.4050, L100.0100 ####[facility] [address] [place], [address] Carbon dioxide, total [Moles /volume] in Central venous bloodOrdered By: Pedro Galvan on 02-08-2025 CO2 [Moles/Vol] 20.4 mmol/L Low 21.0-32.0 [facility] Chloride assayOrdered By: Wesley Galvan on 02-08-2025 Chloride [Moles/Vol] 105 mmol/L 98-108 [facility] Comprehensive Metabolic Prof ilon 02-08-2025 Albumin [Mass/Vol] 3.1 g/dL Low 3.4-4.8 [facility] Comment on above: Performed By: #### L 500.4050, L100.0100 ####[facility] [address] [place], [address] Albumin/Globulin [Mass ratio] 1.2 {ratio} Normal 0.9-2.4 [facility] Comment on above: Performed By: #### L 500.4050, L100.0100 ####[facility] [address] [place], [address] ALK PHOS 103 U/L Normal 40-129 [facility] Comment on above: Performed By: #### L 500.4050, L100.0100 ####[facility] [address] [place], [address] ALT [Catalytic activity/Vol] 51 U/L High <=46 [facility] Comment on above: Performed By: #### L 500.4050, L100.0100 ####[facility] [address] [place], [address] AST [Catalytic activity/Vol] 29 U/L Normal <=37 [facility] Comment on above: Performed By: #### L 500.4050, L100.0100 ####[facility] [address] [place], [address] Bilirubin [Mass/Vol] 0.62 mg/dL Normal 0.00-1.30 [facility] Comment on above: Performed By: #### L 500.4050, L100.0100 ####[facility] [address] [place], [address] BUN/CRE 21.9 RATIO High 10-20 [facility] Comment on above: Performed By: #### L 500.4050, L100.0100 ####[facility] [address] [place], [address] Calcium [Mass/Vol] 8.1 mg/dL Normal 7.6-11.0 [facility] Comment on above: Performed By: #### L 500.4050, L100.0100 ####[facility] [address] [place], [address] Chloride [Moles/Vol] 105 mmol/L Normal 98-108 [facility] Comment on above: Performed By: #### L 500.4050, L100.0100 ####[facility] [address] [place], [address] CO2 [Moles/Vol] 20.4 mmol/L Low 21.0-32.0 [facility] Comment on above: Performed By: #### L 500.4050, L100.0100 ####[facility] [address] [place], [address] Creatinine [Mass/Vol] 1.63 mg/dL High 0.70-1.20 [facility] Comment on above: Performed By: #### L 500.4050, L100.0100 ####[facility] [address] [place], [address] ECRCL 34.62 ml/min Low 50-250 [facility] Comment on above: Performed By: #### L 500.4050, L100.0100 ####[facility] [address] [place], [address] GAP 12 Normal 5-15 [facility] Comment on above: Performed By: #### L 500.4050, L100.0100 ####[facility] [address] [place], [address] GFR/1.73 sq M.predicted among non-blacks MDRD (S/P/Bld) [Vol rate/Area] 41 mL/min/{1.73_m2} Low >60 [facility] Comment on above: Result Comment: mL/m in/1.73m2 CKD-EPI Creatinine Equation (2020) Performed By: #### L 500.4050, L100.0100 ####[facility] [address] [place], [address] Globulin (S) [Mass/Vol] 2.7 g/dL Normal 2.2-4.2 [facility] Comment on above: Performed By: #### L 500.4050, L100.0100 ####[facility] [address] [place], [address] Glucose [Mass/Vol] 96 mg/dL Normal 70-99 [facility] Comment on above: Performed By: #### L 500.4050, L100.0100 ####[facility] [address] [place], [address] Potassium [Moles/Vol] 4.1 mmol/L Normal 3.3-5.1 [facility] Comment on above: Performed By: #### L 500.4050, L100.0100 ####[facility] [address] [place], [address] Sodium [Moles/Vol] 137 mmol/L Normal 133-145 [facility] Comment on above: Performed By: #### L 500.4050, L100.0100 ####[facility] [address] [place], [address] T PROT 5.7 g/dL Low 5.9-8.4 [facility] Comment on above: Performed By: #### L 500.4050, L100.0100 ####[facility] [address] [place], [address] Urea nitrogen [Mass/Vol] 36 mg/dL High 4-19 [facility] Comment on above: Performed By: #### L 500.4050, L100.0100 ####[facility] [address] [place], [address] Eosinophil percentageOrdered By: Pedro Galvan on 02-08-2025 Eosinophils/100 WBC (Bld) 3.1 % 0-5 [facility] Erythrocyte distribution wid th ratioOrdered By: Pedro Galvan on 02-08-2025 Erythrocyte distribution width (RBC) [Ratio] 14.6 % 11.6-14.6 [facility] Erythrocyte distribution wid th standard deviationOrdered By: Pedro Galvan on 02-08-2025 Erythrocyte distribution width (RBC) [Ratio] 46.5 fl High 35.1-43.9 [facility] Glomerular filtration rate ( GFR) estimation/1.73 sq m using serum, plasma, or whole bOrdered By: Pedro Galvan on 02-08-2025 GFR/1.73 sq M.predicted among non-blacks MDRD (S/P/Bld) [Vol rate/Area] 41 mL/min/{1.73_m2} Low >60 [facility] Comment on above: mL/min/1.73m2 CKD-EP I Creatinine Equation (2020) Hematocrit Auto (Bld) [Volum e fraction]Ordered By: Pedro Galvan on 02-08-2025 Hematocrit (Bld) [Volume fraction] 30.4 % Low 40-54 [facility] Hemoglobin measurementOrdere d By: Pedro Galvan on 02-08-2025 Hemoglobin (Bld) [Mass/Vol] 10.2 g/dL Low 13.0-16.5 [facility] Immature granulocytes/100 WB C Auto (Bld)Ordered By: Pedro Galvan on 02-08-2025 Immature granulocytes/100 WBC (Bld) 0.300 % 0.0-0.9 [facility] Comment on above: IG% - Immature Granu locytes (promyelocytes, myelocytes and metamyelocytes) > 1% indicates that a LEFT SHIFT is Present. Laboratory - Chemistry and C hemistry - challengeOrdered By: Pedro Galvan on 02-08-2025 AST [Catalytic activity/Vol] 29 U/L <38 [facility] MCV (mean corpuscular volume ) determinationOrdered By: Pedro Galvan on 02-08-2025 MCV (RBC) [Entitic vol] 86.6 fL 80-94 [facility] Mean corpuscular hemoglobin (MCH) determinationOrdered By: Pedro Galvan on 02-08-2025 MCH (RBC) [Entitic mass] 29.1 pg 27.0-32.0 [facility] Mean corpuscular hemoglobin concentration (MCHC) determinationOrdered By: Pedro Galvan on 02-08-2025 MCHC (RBC) [Mass/Vol] 33.6 g/dL 32-36 [facility] Mean platelet volume determi nationOrdered By: Pedro Galvan on 02-08-2025 Platelet mean volume (Bld) [Entitic vol] 11.2 fL 6.2-12.0 [facility] Monocyte percentageOrdered B y: Pedro Galvan on 02-08-2025 Monocytes/100 WBC (Bld) 6.6 % 0-10 [facility] Neutrophil percentageOrdered By: Pedro Galvan on 02-08-2025 Neutrophils/100 WBC (Bld) 51.1 % 47-70 [facility] Nucleated red blood cell per centageOrdered By: Pedro Galvan on 02-08-2025 Nucleated RBC/100 WBC (Bld) [Ratio] 0 % 0-5 [facility] Platelet countOrdered By: Wesley Galvan on 02-08-2025 Platelets (Bld) [#/Vol] 124 10*3/uL Low 150-450 [facility] Platelet estimateOrdered By: Pedro Galvan on 02-08-2025 Platelets LM Ql (Bld) SLT DEC ADEQ [facility] Platelet morphologyOrdered B y: Pedro Galvan on 02-08-2025 Platelet morphology finding Nom (Bld) GIANT [facility] Potassium measurement (mass/ volume)Ordered By: Pedro Galvan on 02-08-2025 Potassium (Unsp spec) [Mass/Vol] 4.1 mmol/L 3.3-5.1 [facility] RBC Auto (Bld) [#/Vol]Ordere d By: Pedro Galvan on 02-08-2025 RBC (Bld) [#/Vol] 3.51 10*6/uL Low 4.6-6.2 [facility] Serum creatinine measurement (mass/volume)Ordered By: Pedro Galvan on 02-08-2025 Creatinine [Mass/Vol] 1.63 mg/dL High 0.70-1.20 [facility] Serum globulin measurementOr dered By: Pedro Galvan on 02-08-2025 Globulin (S) [Mass/Vol] 2.7 g/dL 2.2-4.2 [facility] Serum glucose measurement (m ass/volume)Ordered By: Pedro Galvan on 02-08-2025 Glucose [Mass/Vol] 96 mg/dL 70-99 [facility] Serum or plasma alanine holm otransferase (ALT) measurementOrdered By: Pedro Galvan on 02-08-2025 ALT [Catalytic activity/Vol] 51 U/L High <47 [facility] Serum or plasma albumin kelli urement (mass/volume)Ordered By: Pedro Galvan on 02-08-2025 Albumin [Mass/Vol] 3.1 g/dL Low 3.4-4.8 [facility] Serum or plasma albumin/glob ulin mass ratioOrdered By: Pedro Galvan on 02-08-2025 Albumin/Globulin [Mass ratio] 1.2 {ratio} 0.9-2.4 [facility] Serum or plasma alkaline karen sphatase measurementOrdered By: Pedro Galvan on 02-08-2025 ALP [Catalytic activity/Vol] 103 U/L 40-129 [facility] Serum or plasma calcium kelli urement (mass/volume)Ordered By: Pedro Galvan on 02-08-2025 Calcium [Mass/Vol] 8.1 mg/dL 7.6-11.0 [facility] Serum or plasma urea nitroge n measurement (mass/volume)Ordered By: Pedro Galvan on 02-08-2025 Urea nitrogen [Mass/Vol] 36 mg/dL High 4-19 [facility] Sodium levelOrdered By: Pedro Galvan on 02-08-2025 Sodium [Moles/Vol] 137 mmol/L 133-145 [facility] Total proteinOrdered By: Sophia Galvan on 02-08-2025 Protein [Mass/Vol] 5.7 g/dL Low 5.9-8.4 [facility] White blood cell (WBC) count Ordered By: Pedro Galvan on 02-08-2025 WBC (Bld) [#/Vol] 5.7 10*3/uL 4.4-11.0 [facility] CBC W/Diff, Automatedon 06- ATYPICAL LYMPH 2+ Normal [facility] Comment on above: Performed By: #### L 500.4050, L100.0100 ####[facility] [address] [place], [address] OVALOCYTE 1+ Normal [facility] Comment on above: Performed By: #### L 500.4050, L100.0100 ####[facility] [address] [place], [address] PLT EST MOD DEC Normal ADEQ [facility] Comment on above: Performed By: #### L 500.4050, L100.0100 ####[facility] [address] [place], [address] Comprehensive Metabolic Prof ilon 02-07-2025 Albumin [Mass/Vol] 3.0 g/dL Low 3.4-4.8 [facility] Comment on above: Performed By: #### L 500.4050, L100.0100 ####[facility] [address] [place], [address] Albumin/Globulin [Mass ratio] 1.2 {ratio} Normal 0.9-2.4 [facility] Comment on above: Performed By: #### L 500.4050, L100.0100 ####[facility] [address] [place], [address] ALK PHOS 106 U/L Normal 40-129 [facility] Comment on above: Performed By: #### L 500.4050, L100.0100 ####[facility] [address] [place], [address] ALT [Catalytic activity/Vol] 59 U/L High <=46 [facility] Comment on above: Performed By: #### L 500.4050, L100.0100 ####[facility] [address] [place], [address] AST [Catalytic activity/Vol] 34 U/L Normal <=37 [facility] Comment on above: Performed By: #### L 500.4050, L100.0100 ####[facility] [address] [place], [address] Bilirubin [Mass/Vol] 0.70 mg/dL Normal 0.00-1.30 [facility] Comment on above: Performed By: #### L 500.4050, L100.0100 ####[facility] [address] [place], [address] BUN/CRE 25.7 RATIO High 10-20 [facility] Comment on above: Performed By: #### L 500.4050, L100.0100 ####[facility] [address] [place], [address] Calcium [Mass/Vol] 8.0 mg/dL Normal 7.6-11.0 [facility] Comment on above: Performed By: #### L 500.4050, L100.0100 ####[facility] [address] [place], [address] Chloride [Moles/Vol] 102 mmol/L Normal 98-108 [facility] Comment on above: Performed By: #### L 500.4050, L100.0100 ####[facility] [address] [place], [address] CO2 [Moles/Vol] 18.3 mmol/L Low 21.0-32.0 [facility] Comment on above: Performed By: #### L 500.4050, L100.0100 ####[facility] [address] [place], [address] Creatinine [Mass/Vol] 1.72 mg/dL High 0.70-1.20 [facility] Comment on above: Performed By: #### L 500.4050, L100.0100 ####[facility] [address] [place], [address] ECRCL 32.86 ml/min Low 50-250 [facility] Comment on above: Performed By: #### L 500.4050, L100.0100 ####[facility] [address] [place], [address] GAP 14 Normal 5-15 [facility] Comment on above: Performed By: #### L 500.4050, L100.0100 ####[facility] [address] [place], [address] GFR/1.73 sq M.predicted among non-blacks MDRD (S/P/Bld) [Vol rate/Area] 38 mL/min/{1.73_m2} Low >60 [facility] Comment on above: Result Comment: mL/m in/1.73m2 CKD-EPI Creatinine Equation (2020) Performed By: #### L 500.4050, L100.0100 ####[facility] [address] [place], [address] Globulin (S) [Mass/Vol] 2.6 g/dL Normal 2.2-4.2 [facility] Comment on above: Performed By: #### L 500.4050, L100.0100 ####[facility] [address] [place], [address] Glucose [Mass/Vol] 96 mg/dL Normal 70-99 [facility] Comment on above: Performed By: #### L 500.4050, L100.0100 ####[facility] [address] [place], [address] Potassium [Moles/Vol] 3.9 mmol/L Normal 3.3-5.1 [facility] Comment on above: Performed By: #### L 500.4050, L100.0100 ####[facility] [address] [place], [address] Sodium [Moles/Vol] 134 mmol/L Normal 133-145 [facility] Comment on above: Performed By: #### L 500.4050, L100.0100 ####[facility] [address] [place], [address] T PROT 5.5 g/dL Low 5.9-8.4 [facility] Comment on above: Performed By: #### L 500.4050, L100.0100 ####[facility] [address] [place], [address] Urea nitrogen [Mass/Vol] 44 mg/dL High 4-19 [facility] Comment on above: Performed By: #### L 500.4050, L100.0100 ####[facility] [address] [place], [address] Consultation - Surgicalon Consultation - Surgical Normal [facility] Hepatobilliary Img w/Pharm I nton 02-07-2025 Hepatobilliary Img w/Pharm Int Normal [facility] Ovalocyte detectionOrdered B y: Pedro Galvan on 02-07-2025 Ovalocytes LM Ql (Bld) 1+ [facility] Respiratory Cultureon 2024 RESPC List Antibiotics Las t 48 Hours? zosyn Mixed normal respiratory ana rosa. No Streptococcus pneumoniae, beta-hemolytic Streptococcus or Staphylococcus aureus isolated. Normal [facility] Comment on above: Performed By: #### M 100.2000, M100.2400 ####[facility] [address] [place], [address] Basic Metabolic Profile (BMP )on 02-06-2025 BUN/CRE 25.9 RATIO High 10-20 [facility] Comment on above: Performed By: #### L 501.5200, L501.2300, L500.2500, L100.0100 ####[facility] [address] [place], [address] Calcium [Mass/Vol] 6.7 mg/dL Low 7.6-11.0 [facility] Comment on above: Performed By: #### L 501.5200, L501.2300, L500.2500, L100.0100 ####[facility] [address] [place], [address] Chloride [Moles/Vol] 106 mmol/L Normal 98-108 [facility] Comment on above: Performed By: #### L 501.5200, L501.2300, L500.2500, L100.0100 ####[facility] [address] [place], [address] CO2 [Moles/Vol] 15.5 mmol/L Low 21.0-32.0 [facility] Comment on above: Performed By: #### L 501.5200, L501.2300, L500.2500, L100.0100 ####[facility] [address] [place], [address] Creatinine [Mass/Vol] 1.47 mg/dL High 0.70-1.20 [facility] Comment on above: Performed By: #### L 501.5200, L501.2300, L500.2500, L100.0100 ####[facility] [address] [place], [address] ECRCL 37.64 ml/min Low 50-250 [facility] Comment on above: Performed By: #### L 501.5200, L501.2300, L500.2500, L100.0100 ####[facility] [address] [place], [address] GAP 12 Normal 5-15 [facility] Comment on above: Performed By: #### L 501.5200, L501.2300, L500.2500, L100.0100 ####[facility] [address] [place], [address] GFR/1.73 sq M.predicted among non-blacks MDRD (S/P/Bld) [Vol rate/Area] 46 mL/min/{1.73_m2} Low >60 [facility] Comment on above: Result Comment: mL/m in/1.73m2 CKD-EPI Creatinine Equation (2020) Performed By: #### L 501.5200, L501.2300, L500.2500, L100.0100 ####[facility] [address] [place], [address] Glucose [Mass/Vol] 97 mg/dL Normal 70-99 [facility] Comment on above: Performed By: #### L 501.5200, L501.2300, L500.2500, L100.0100 ####[facility] [address] [place], [address] Potassium [Moles/Vol] 4.0 mmol/L Normal 3.3-5.1 [facility] Comment on above: Result Comment: Hemo lysis present, Results??could be affected.?? Performed By: #### L 501.5200, L501.2300, L500.2500, L100.0100 ####[facility] [address] [place], [address] Sodium [Moles/Vol] 133 mmol/L Normal 133-145 [facility] Comment on above: Performed By: #### L 501.5200, L501.2300, L500.2500, L100.0100 ####[facility] [address] [place], [address] Urea nitrogen [Mass/Vol] 38 mg/dL High 4-19 [facility] Comment on above: Performed By: #### L 501.5200, L501.2300, L500.2500, L100.0100 ####[facility] [address] [place], [address] CBC W/Diff, Automatedon 01-13 ATYPICAL LYMPH 1+ Normal [facility] Comment on above: Performed By: #### L 501.5200, L501.2300, L500.2500, L100.0100 ####[facility] [address] [place], [address] Magnesiumon 02-06-2025 Magnesium [Mass/Vol] 2.0 mg/dL Normal 1.5-2.2 [facility] Comment on above: Performed By: #### L 501.5200, L501.2300, L500.2500, L100.0100 ####[facility] [address] [place], [address] Magnesium measurement (mass/ volume)Ordered By: Rea Cancino on 02-06-2025 Magnesium (Unsp spec) [Mass/Vol] 2.0 mg/dL 1.5-2.2 [facility] Phosphoruson 02-06-2025 Phosphate [Mass/Vol] 3.3 mg/dL Normal 2.7-4.5 [facility] Comment on above: Performed By: #### L 501.5200, L501.2300, L500.2500, L100.0100 ####[facility] [address] [place], [address] CBC W/Diff, Automatedon 01-13 Absolute Lymph 0.76 X10 3/uL Low 0.83-4.51 [facility] Comment on above: Performed By: #### L 500.4050, L500.4100, L501.9520, L100.0100 ####[facility] [address] [place], [address] Absolute Neut 3.4 X10 3/uL Normal 2.0-7.7 [facility] Comment on above: Performed By: #### L 500.4050, L500.4100, L501.9520, L100.0100 ####[facility] [address] [place], [address] Basophils/100 WBC (Bld) 0.2 % Normal 0-1 [facility] Comment on above: Performed By: #### L 500.4050, L500.4100, L501.9520, L100.0100 ####[facility] [address] [place], [address] Eosinophils/100 WBC (Bld) 0.0 % Normal 0-5 [facility] Comment on above: Performed By: #### L 500.4050, L500.4100, L501.9520, L100.0100 ####[facility] [address] [place], [address] Erythrocyte distribution width (RBC) [Ratio] 14.0 % Normal 11.6-14.6 [facility] Comment on above: Performed By: #### L 500.4050, L500.4100, L501.9520, L100.0100 ####[facility] [address] [place], [address] Hematocrit (Bld) [Volume fraction] 31.5 % Low 40-54 [facility] Comment on above: Performed By: #### L 500.4050, L500.4100, L501.9520, L100.0100 ####[facility] [address] [place], [address] Hemoglobin (Bld) [Mass/Vol] 10.7 g/dL Low 13.0-16.5 [facility] Comment on above: Performed By: #### L 500.4050, L500.4100, L501.9520, L100.0100 ####[facility] [address] [place], [address] IG% 0.400 Normal 0.0-0.9 [facility] Comment on above: Result Comment: IG% - Immature Granulocytes (promyelocytes, myelocytes andmetamyelocytes) > 1% indicates that a LEFT SHIFT is Present. Performed By: #### L 500.4050, L500.4100, L501.9520, L100.0100 ####[facility] [address] [place], [address] Lymphocytes/100 WBC (Bld) 16.4 % Low 19-41 [facility] Comment on above: Performed By: #### L 500.4050, L500.4100, L501.9520, L100.0100 ####[facility] [address] [place], [address] MCH (RBC) [Entitic mass] 29.5 pg Normal 27.0-32.0 [facility] Comment on above: Performed By: #### L 500.4050, L500.4100, L501.9520, L100.0100 ####[facility] [address] [place], [address] MCHC (RBC) [Mass/Vol] 34.0 g/dL Normal 32-36 [facility] Comment on above: Performed By: #### L 500.4050, L500.4100, L501.9520, L100.0100 ####[facility] [address] [place], [address] MCV (RBC) [Entitic vol] 86.8 fL Normal 80-94 [facility] Comment on above: Performed By: #### L 500.4050, L500.4100, L501.9520, L100.0100 ####[facility] [address] [place], [address] Monocytes/100 WBC (Bld) 9.1 % Normal 0-10 [facility] Comment on above: Performed By: #### L 500.4050, L500.4100, L501.9520, L100.0100 ####[facility] [address] [place], [address] Neutrophils/100 WBC (Bld) 73.9 % High 47-70 [facility] Comment on above: Performed By: #### L 500.4050, L500.4100, L501.9520, L100.0100 ####[facility] [address] [place], [address] Nucleated RBC (Bld) [#/Vol] 0 10*3/uL Normal 0-5 [facility] Comment on above: Performed By: #### L 500.4050, L500.4100, L501.9520, L100.0100 ####[facility] [address] [place], [address] Platelet mean volume (Bld) [Entitic vol] 10.9 fL Normal 6.2-12.0 [facility] Comment on above: Performed By: #### L 500.4050, L500.4100, L501.9520, L100.0100 ####[facility] [address] [place], [address] Platelets (Bld) [#/Vol] 86 10*3/uL Low 150-450 [facility] Comment on above: Performed By: #### L 500.4050, L500.4100, L501.9520, L100.0100 ####[facility] [address] [place], [address] RBC (Bld) [#/Vol] 3.63 10*6/uL Low 4.6-6.2 [facility] Comment on above: Performed By: #### L 500.4050, L500.4100, L501.9520, L100.0100 ####[facility] [address] [place], [address] RDW SD 45.0 fl High 35.1-43.9 [facility] Comment on above: Performed By: #### L 500.4050, L500.4100, L501.9520, L100.0100 ####[facility] [address] [place], [address] WBC (Bld) [#/Vol] 4.6 10*3/uL Normal 4.4-11.0 [facility] Comment on above: Performed By: #### L 500.4050, L500.4100, L501.9520, L100.0100 ####[facility] [address] [place], [address] Calculated very low density lipoprotein (VLDL) cholesterol measurementOrdered By: Rea Cancino on 2025 Calculated very low density lipoprotein (VLDL) cholesterol measurement 16 mg/dL 5-40 [facility] Comprehensive Metabolic Prof ilon 2025 Albumin [Mass/Vol] 3.4 g/dL Normal 3.4-4.8 [facility] Comment on above: Performed By: #### L 500.4050, L500.4100, L501.9520, L100.0100 ####[facility] [address] [place], [address] Albumin/Globulin [Mass ratio] 1.3 {ratio} Normal 0.9-2.4 [facility] Comment on above: Performed By: #### L 500.4050, L500.4100, L501.9520, L100.0100 ####[facility] [address] [place], [address] ALK PHOS 144 U/L High 40-129 [facility] Comment on above: Performed By: #### L 500.4050, L500.4100, L501.9520, L100.0100 ####[facility] [address] [place], [address] ALT [Catalytic activity/Vol] 86 U/L High <=46 [facility] Comment on above: Performed By: #### L 500.4050, L500.4100, L501.9520, L100.0100 ####[facility] [address] [place], [address] AST [Catalytic activity/Vol] 93 U/L High <=37 [facility] Comment on above: Performed By: #### L 500.4050, L500.4100, L501.9520, L100.0100 ####[facility] [address] [place], [address] Bilirubin [Mass/Vol] 0.75 mg/dL Normal 0.00-1.30 [facility] Comment on above: Performed By: #### L 500.4050, L500.4100, L501.9520, L100.0100 ####[facility] [address] [place], [address] BUN/CRE 27.3 RATIO High 10-20 [facility] Comment on above: Performed By: #### L 500.4050, L500.4100, L501.9520, L100.0100 ####[facility] [address] [place], [address] Calcium [Mass/Vol] 8.2 mg/dL Normal 7.6-11.0 [facility] Comment on above: Performed By: #### L 500.4050, L500.4100, L501.9520, L100.0100 ####[facility] [address] [place], [address] Chloride [Moles/Vol] 96 mmol/L Low 98-108 [facility] Comment on above: Performed By: #### L 500.4050, L500.4100, L501.9520, L100.0100 ####[facility] [address] [place], [address] CO2 [Moles/Vol] 18.7 mmol/L Low 21.0-32.0 [facility] Comment on above: Performed By: #### L 500.4050, L500.4100, L501.9520, L100.0100 ####[facility] [address] [place], [address] Creatinine [Mass/Vol] 1.82 mg/dL High 0.70-1.20 [facility] Comment on above: Performed By: #### L 500.4050, L500.4100, L501.9520, L100.0100 ####[facility] [address] [place], [address] ECRCL 30.24 ml/min Low 50-250 [facility] Comment on above: Performed By: #### L 500.4050, L500.4100, L501.9520, L100.0100 ####[facility] [address] [place], [address] GAP 15 Normal 5-15 [facility] Comment on above: Performed By: #### L 500.4050, L500.4100, L501.9520, L100.0100 ####[facility] [address] [place], [address] GFR/1.73 sq M.predicted among non-blacks MDRD (S/P/Bld) [Vol rate/Area] 36 mL/min/{1.73_m2} Low >60 [facility] Comment on above: Result Comment: mL/m in/1.73m2 CKD-EPI Creatinine Equation (2020) Performed By: #### L 500.4050, L500.4100, L501.9520, L100.0100 ####[facility] [address] [place], [address] Globulin (S) [Mass/Vol] 2.6 g/dL Normal 2.2-4.2 [facility] Comment on above: Performed By: #### L 500.4050, L500.4100, L501.9520, L100.0100 ####[facility] [address] [place], [address] Glucose [Mass/Vol] 121 mg/dL High 70-99 [facility] Comment on above: Performed By: #### L 500.4050, L500.4100, L501.9520, L100.0100 ####[facility] [address] [place], [address] Potassium [Moles/Vol] 3.5 mmol/L Normal 3.3-5.1 [facility] Comment on above: Performed By: #### L 500.4050, L500.4100, L501.9520, L100.0100 ####[facility] [address] [place], [address] Sodium [Moles/Vol] 130 mmol/L Low 133-145 [facility] Comment on above: Performed By: #### L 500.4050, L500.4100, L501.9520, L100.0100 ####[facility] [address] [place], [address] T PROT 5.9 g/dL Normal 5.9-8.4 [facility] Comment on above: Performed By: #### L 500.4050, L500.4100, L501.9520, L100.0100 ####[facility] [address] [place], [address] Urea nitrogen [Mass/Vol] 50 mg/dL High 4-19 [facility] Comment on above: Performed By: #### L 500.4050, L500.4100, L501.9520, L100.0100 ####[facility] [address] [place], [address] Consultation - Cardiologyon 2025 Consultation - Cardiology Normal [facility] Consultation - Intensiviston 2025 Consultation - Cone Picker Normal [facility] Echo Limited w/Contraston Echo Limited w/Contrast Normal [facility] Electrocardiogram reportOrde red By: Cj Gardiner on 2025 EKG study [facility] Cardi[facility] Services [address] [place] [address] 12 Lead EKG 02/04/25 1758 MR#: [id number] Acct: [id number] Name: FLORIN VARGAS Rep #:[id number] : [...] Abnormal ECG Confirmed by ABDIFATAH BROOKS, CJ ([id number]), food editor SAMMI LIMA ([id number]) on 511:10:12 AM Referred By: Rea Cancino Confirmed By: CJ GARDINER MD 02/05/25 1110 Date _ Cj Gardiner MD CC: Dr. Rea Cancino MD; Dr. Maryanne Emanuel DO; Dr. Pedro Galvan DO; Dr. Pedro Gonzalez MD ~ Signed [facility] Work Phone: Gram Stainon 2025 GS List Antibiotics [place] t 48 Hours? zosyn Acceptable Specimen? Yes (<25 Epithelial cells per/lpf) Gram Stain 3+ Gram positive cocci 2+ Gram negative rods 2+ Epithelial cells 2+ Gram positive rods Normal [facility] Comment on above: Performed By: #### M 100.2000, M100.2400 ####[facility] [address] [place], [address] Gram stainOrdered By: Rea Cancino on 2025 Microscopic observation Gram stain Nom (Unsp spec) [facility] L509.7001on 2025 Procalcitonin 1.39 ng/mL High <=0.10 [facility] Comment on above: Result Comment: Inte rpretation:<0.10-0.25 ng/mL: Antibiotic therapy discouraged. Bacterialinfection unlikely.0.25-0.50 ng/mL: Antibiotic therapy encouraged. Bacterialinfection possible.>0.50 ng/mL: Antibiotic therapy strongly encouraged.Suggestive of presence of bacterial infection.PCT should always be interpreted in the clinical context ofthe patient. Therefore, clinicians should use the PCTresults in conjunction with other laboratory findings andclinical signs of the patient. Performed By: #### L 509.7001 ####[facility] [address] [place], [address] LDL calc ser/plasOrdered By: Rea Cancino on 2025 Cholesterol in LDL [Mass/Vol] 161 mg/dL [facility] Comment on above: Ktgwgcglxd=086-051 m g/dL & Higher Drpn=600 mg/dL or greater Limited echocardiogram repor tOrdered By: Cj Gardiner on 2025 Study report [facility] [address] [place] [address] Echo Limited w/Contrast 02/05/25 0910 MR#: [id number] Acct: [id number] Name: FLORIN VARGAS Rep #:[id number] : [...] ~ Date Dictated: 02/05/25909 Date Transcribed: 02/05/251123 Agricultural Plow Operator: Signed [facility] Work Phone: Lipid Profileon 2025 CHOL:HDL 4.74 Normal [facility] Comment on above: Performed By: #### L 500.4050, L500.4100, L501.9520, L100.0100 ####[facility] [address] [place], [address] Cholesterol [Mass/Vol] 224 mg/dL High <=200 [facility] Comment on above: Result Comment: Chol esterol level, Desirable <200 mg/dLBorderline high cholesterol 200-239 mg/dLHigh cholesterol >=240 mg/dLRecommendations of the NCEP Adult Treatment Panel for thefollowing risk-cutoff thresholds for the [place] Americanpopulation. Performed By: #### L 500.4050, L500.4100, L501.9520, L100.0100 ####[facility] [address] [place], [place], [address] Cholesterol in HDL [Mass/Vol] 47 mg/dL Normal [facility] Comment on above: Result Comment: Heather onal Cholesterol Education Program (NCEP) guidelines:<40 mg/dL: Low HDL-cholesterol (major risk factor for CHD)>= 60 mg/dL: High HDL-cholesterol (negative risk factor forCHD)HDL-cholesterol is affected by a number of factors, e.g.smoking, exercise, hormones, sex and age. Performed By: #### L 500.4050, L500.4100, L501.9520, L100.0100 ####[facility] [address] [place], [address] Cholesterol in LDL [Mass/Vol] 161 mg/dL Normal [facility] Comment on above: Result Comment: Bord huscuj=285-300 mg/dL Higher Maxh=354 mg/dL or greater Performed By: #### L 500.4050, L500.4100, L501.9520, L100.0100 ####[facility] [address] [place], [address] Cholesterol in VLDL [Mass/Vol] 16 mg/dL Normal 5-40 [facility] Comment on above: Performed By: #### L 500.4050, L500.4100, L501.9520, L100.0100 ####[facility] [address] [place], [address] Triglyceride [Mass/Vol] 80 mg/dL Normal [facility] Comment on above: Result Comment: The drugs N-Acetylcysteine and Metamizole may falselydepress this assay.Normal range: <150 mg/dLBorderline High: 150-199 mg/dLHigh: 200-499 mg/dLVery High: >500 mg/dL Performed By: #### L 500.4050, L500.4100, L501.9520, L100.0100 ####[facility] [address] [place], [address] Microbial respiratory cultur eOrdered By: Rea Cancino on 2025 Microorganism identified Cx Nom (Unsp spec) or Staphylococcus aureus isolated. [facility] RESPIRATORY PANEL MOLECULARo n 2025 RP PANEL Normal [facility] Comment on above: Performed By: #### M 100.638 ####[facility] [address] [place], [place], [id number] Respiratory pathogens detect ion panel by molecular detection methodOrdered By: Rea Cancino on 2025 Respiratory pathogens DNA and RNA panel RHIANNA+probe (Resp) [facility] Screening total cholesterol/ high density lipoprotein (HDL) cholesterol ratioOrdered By: Rea Cancino on 2025 Cholesterol.total/Cho lesterol in HDL [Mass ratio] 4.74 {ratio} [facility] Serum or plasma cholesterol in HDL measurement (mass/volume)Ordered By: Rea Cancino on 2025 Cholesterol in HDL [Mass/Vol] 47 mg/dL >40 [facility] Comment on above: National Cholesterol Education Program (NCEP) guidelines:<40 mg/dL: Low HDL-cholesterol (major risk factor for CHD)>= 60 mg/dL: High HDL-cholesterol (negative risk factor for CHD)HDL-cholesterol is affected by a number of factors, e.g. smoking, exercise, hormones, sex and age. Serum or plasma cholesterol measurement (mass/volume)Ordered By: Rea Cancino on 2025 Cholesterol [Mass/Vol] 224 mg/dL High <201 [facility] Comment on above: Cholesterol level, D esirable <200 mg/dLBorderline high cholesterol 200-239 mg/dLHigh cholesterol >=240 mg/dLRecommendations of the NCEP Adult Treatment Panel for the following risk-cutoff thresholds for the [place] population. TSH DL <= 0.005 mIU/L QnOrde red By: Rea Cancino on 2025 TSH Qn 1.900 uIU/mL 0.300-4.20 0 [facility] Thyroid Stim Hormone (TSH)on 2025 TSH 1.900 uIU/mL Normal 0.300-4.20 0 [facility] Comment on above: Performed By: #### L 500.4050, L500.4100, L501.9520, L100.0100 ####[facility] [address] [place], [place], [id number] Triglycerides measurementOrd ered By: Rea White on 2025 Triglyceride [Mass/Vol] 80 mg/dL <199 [facility] Comment on above: The drugs N-Acetylcy steine and Metamizole may falsely depress this assay. Normal range: <150 mg/dLBorderline High: 150-199 mg/dLHigh: 200-499 mg/dLVery High: >500 mg/dL Urine Cultureon 2025 URC Culture exhibits no growth. Normal [facility] Comment on above: Performed By: #### L 400.0001, M100.2200 ####[facility] [address] [place], [address] 12 Lead EKGon 02-04-2025 12 Lead EKG Normal [facility] Absolute lymphocyte countOrd ered By: Maryanne Emanuel on 02-04-2025 Lymphocytes Auto (Unsp spec) [#/Vol] 0.70 10*3/uL Low 0.83-4.51 [facility] Absolute neutrophil countOrd ered By: Maryanne Emanuel on 02-04-2025 Neutrophils (Bld) [#/Vol] 4.5 10*3/uL 2.0-7.7 [facility] Activated partial thrombopla stin time (aPTT) in platelet poor plasma by coagulation aOrdered By: Maryanne Emanuel on 02-04-2025 aPTT Coag (PPP) [Time] 32.2 s 24.1-36.2 [facility] Amorphous sediment detection in urine sediment by light microscopyOrdered By: Maryanne Emanuel on 02-04-2025 Amorphous sediment LM Ql (Urine sed) 1+ [facility] Anion gap in Serum or Plasma Ordered By: Maryanne Emanuel on 02-04-2025 Anion gap [Moles/Vol] 15 mmol/L 5-15 [facility] Automated lymphocyte count a s percentage of total leukocytesOrdered By: Maryanne Emanuel on 02-04-2025 Lymphocytes/100 WBC Auto (Unsp spec) 12.3 % Low 19-41 [facility] BUN/creatinine ratioOrdered By: Maryanne Emanuel on 02-04-2025 Urea nitrogen/Creatinine [Mass ratio] 25.8 mg/mg High 10-20 [facility] Basophil percentageOrdered B y: Maryanne Emanuel on 02-04-2025 Basophils/100 WBC (Bld) 0.2 % 0-1 [facility] Bilirubin Test strip Ql (U)O rdered By: Maryanne Emanuel on 02-04-2025 Bilirubin Ql (U) Negative Negative [facility] Bilirubin, totalOrdered By: Maryanne Emanuel on 02-04-2025 Bilirubin [Mass/Vol] 0.66 mg/dL 0.00-1.30 [facility] Blood cultureOrdered By: Missy Emanuel on 02-04-2025 Bacteria identified Cx Nom (Bld) No growth in 5 days. [facility] Bacteria identified Cx Nom (Bld) No growth in 5 days. [facility] Blood manual differential co mment interpretation (narrative result)Ordered By: Maryanne Emanuel on 02-04-2025 Manual differential comment Tyrese (Bld) [Interp] SCANNED [facility] CBC W/Diff, Automatedon 01-13 PLT EST MOD DEC Normal ADEQ [facility] Comment on above: Performed By: #### M 200.1000, L501.4021, L300.4310, L100.0100, L503.6005, L300.3900, L501.5200, L500.4050 ####[facility] [address] [place], [place], [id number] SMEAR COMMENT SCANNED Normal [facility] Comment on above: Performed By: #### M 200.1000, L501.4021, L300.4310, L100.0100, L503.6005, L300.3900, L501.5200, L500.4050 ####[facility] [address] [place], [place], [id number] Platelet mean volume (Bld) [Entitic vol] 11.4 fL Normal 6.2-12.0 [facility] Comment on above: Performed By: #### M 200.1000, L501.4021, L300.4310, L100.0100, L503.6005, L300.3900, L501.5200, L500.4050 ####[facility] [address] [place], [address] Platelets (Bld) [#/Vol] 82 10*3/uL Low 150-450 [facility] Comment on above: Performed By: #### M 200.1000, L501.4021, L300.4310, L100.0100, L503.6005, L300.3900, L501.5200, L500.4050 ####[facility] [address] [place], [address] CO2 (BldV) [Moles/Vol]Ordere d By: Maryanne Emanuel on 02-04-2025 CO2 [Moles/Vol] 21 mmol/L Low 23-33 [facility] CT Chest, Abd, Pelvis WO Con ton 02-04-2025 CT Chest, Abd, Pelvis WO Cont Normal [facility] Carbon dioxide, total [Moles /volume] in Central venous bloodOrdered By: Maryanne Emanuel on 02-04-2025 CO2 [Moles/Vol] 18.4 mmol/L Low 21.0-32.0 [facility] Cardiology Visit Reporton Cardiology Visit Report Normal [facility] Chest 1 View (Portable)on Chest 1 View (Portable) Normal [facility] Chloride assayOrdered By: John Emanuel on 02-04-2025 Chloride [Moles/Vol] 92 mmol/L Low 98-108 [facility] Comprehensive Metabolic Prof ilon 02-04-2025 Albumin [Mass/Vol] 3.5 g/dL Normal 3.4-4.8 [facility] Comment on above: Performed By: #### M 200.1000, L501.4021, L300.4310, L100.0100, L503.6005, L300.3900, L501.5200, L500.4050 ####[facility] [address] [place], [address] Albumin/Globulin [Mass ratio] 1.5 {ratio} Normal 0.9-2.4 [facility] Comment on above: Performed By: #### M 200.1000, L501.4021, L300.4310, L100.0100, L503.6005, L300.3900, L501.5200, L500.4050 ####[facility] [address] [place], [address] ALK PHOS 137 U/L High 40-129 [facility] Comment on above: Performed By: #### M 200.1000, L501.4021, L300.4310, L100.0100, L503.6005, L300.3900, L501.5200, L500.4050 ####[facility] [address] [place], [address] ALT [Catalytic activity/Vol] 84 U/L High <=46 [facility] Comment on above: Performed By: #### M 200.1000, L501.4021, L300.4310, L100.0100, L503.6005, L300.3900, L501.5200, L500.4050 ####[facility] [address] [place], [address] AST [Catalytic activity/Vol] 108 U/L High <=37 [facility] Comment on above: Performed By: #### M 200.1000, L501.4021, L300.4310, L100.0100, L503.6005, L300.3900, L501.5200, L500.4050 ####[facility] [address] [place], [address] Bilirubin [Mass/Vol] 0.66 mg/dL Normal 0.00-1.30 [facility] Comment on above: Performed By: #### M 200.1000, L501.4021, L300.4310, L100.0100, L503.6005, L300.3900, L501.5200, L500.4050 ####[facility] [address] [place], [address] BUN/CRE 25.8 RATIO High 10-20 [facility] Comment on above: Performed By: #### M 200.1000, L501.4021, L300.4310, L100.0100, L503.6005, L300.3900, L501.5200, L500.4050 ####[facility] [address] [place], [address] Calcium [Mass/Vol] 8.0 mg/dL Normal 7.6-11.0 [facility] Comment on above: Performed By: #### M 200.1000, L501.4021, L300.4310, L100.0100, L503.6005, L300.3900, L501.5200, L500.4050 ####[facility] [address] [place], [address] Chloride [Moles/Vol] 92 mmol/L Low 98-108 [facility] Comment on above: Performed By: #### M 200.1000, L501.4021, L300.4310, L100.0100, L503.6005, L300.3900, L501.5200, L500.4050 ####[facility] [address] [place], [address] CO2 [Moles/Vol] 18.4 mmol/L Low 21.0-32.0 [facility] Comment on above: Performed By: #### M 200.1000, L501.4021, L300.4310, L100.0100, L503.6005, L300.3900, L501.5200, L500.4050 ####[facility] [address] [place], [address] Creatinine [Mass/Vol] 1.94 mg/dL High 0.70-1.20 [facility] Comment on above: Performed By: #### M 200.1000, L501.4021, L300.4310, L100.0100, L503.6005, L300.3900, L501.5200, L500.4050 ####[facility] [address] [place], [address] ECRCL 28.98 ml/min Low 50-250 [facility] Comment on above: Performed By: #### M 200.1000, L501.4021, L300.4310, L100.0100, L503.6005, L300.3900, L501.5200, L500.4050 ####[facility] [address] [place], [address] GAP 15 Normal 5-15 [facility] Comment on above: Performed By: #### M 200.1000, L501.4021, L300.4310, L100.0100, L503.6005, L300.3900, L501.5200, L500.4050 ####[facility] [address] [place], [address] GFR/1.73 sq M.predicted among non-blacks MDRD (S/P/Bld) [Vol rate/Area] 33 mL/min/{1.73_m2} Low >60 [facility] Comment on above: Result Comment: mL/m in/1.73m2 CKD-EPI Creatinine Equation (2020) Performed By: #### M 200.1000, L501.4021, L300.4310, L100.0100, L503.6005, L300.3900, L501.5200, L500.4050 ####[facility] [address] [place], [address] Globulin (S) [Mass/Vol] 2.4 g/dL Normal 2.2-4.2 [facility] Comment on above: Performed By: #### M 200.1000, L501.4021, L300.4310, L100.0100, L503.6005, L300.3900, L501.5200, L500.4050 ####[facility] [address] [place], [address] Glucose [Mass/Vol] 131 mg/dL High 70-99 [facility] Comment on above: Performed By: #### M 200.1000, L501.4021, L300.4310, L100.0100, L503.6005, L300.3900, L501.5200, L500.4050 ####[facility] [address] [place], [address] Potassium [Moles/Vol] 3.9 mmol/L Normal 3.3-5.1 [facility] Comment on above: Performed By: #### M 200.1000, L501.4021, L300.4310, L100.0100, L503.6005, L300.3900, L501.5200, L500.4050 ####[facility] [address] [place], [address] Sodium [Moles/Vol] 125 mmol/L Low 133-145 [facility] Comment on above: Performed By: #### M 200.1000, L501.4021, L300.4310, L100.0100, L503.6005, L300.3900, L501.5200, L500.4050 ####[facility] [address] [place], [address] T PROT 5.9 g/dL Normal 5.9-8.4 [facility] Comment on above: Performed By: #### M 200.1000, L501.4021, L300.4310, L100.0100, L503.6005, L300.3900, L501.5200, L500.4050 ####[facility] [address] [place], [address] Urea nitrogen [Mass/Vol] 50 mg/dL High 4-19 [facility] Comment on above: Performed By: #### M 200.1000, L501.4021, L300.4310, L100.0100, L503.6005, L300.3900, L501.5200, L500.4050 ####[facility] [address] [place], [address] Emergency Department Summary on 02-04-2025 Emergency Department Summary Normal [facility] Eosinophil percentageOrdered By: Maryanne Emanuel on 02-04-2025 Eosinophils/100 WBC (Bld) 0.0 % 0-5 [facility] Erythrocyte distribution wid th ratioOrdered By: Maryanne Emanuel on 02-04-2025 Erythrocyte distribution width (RBC) [Ratio] 13.9 % 11.6-14.6 [facility] Erythrocyte distribution wid th standard deviationOrdered By: Maryanne Emanuel on 02-04-2025 Erythrocyte distribution width (RBC) [Ratio] 43.8 fl 35.1-43.9 [facility] Gallbladderon 02-04-2025 Gallbladder Normal [facility] Glomerular filtration rate ( GFR) estimation/1.73 sq m using serum, plasma, or whole bOrdered By: Maryanne Emanuel on 02-04-2025 GFR/1.73 sq M.predicted among non-blacks MDRD (S/P/Bld) [Vol rate/Area] 33 mL/min/{1.73_m2} Low >60 [facility] Comment on above: mL/min/1.73m2 CKD-EP I Creatinine Equation (2020) H AND P Exam - Hospitaliston 02-04-2025 H&P Exam - Hospitalist Normal [facility] Hematocrit Auto (Bld) [Volum e fraction]Ordered By: Maryanne Emanuel on 02-04-2025 Hematocrit (Bld) [Volume fraction] 31.0 % Low 40-54 [facility] Hemoglobin measurementOrdere d By: Maryanne Emanuel on 02-04-2025 Hemoglobin (Bld) [Mass/Vol] 10.6 g/dL Low 13.0-16.5 [facility] Immature granulocytes/100 WB C Auto (Bld)Ordered By: Maryanne Emanuel on 02-04-2025 Immature granulocytes/100 WBC (Bld) 0.500 % 0.0-0.9 [facility] Comment on above: IG% - Immature Granu locytes (promyelocytes, myelocytes and metamyelocytes) > 1% indicates that a LEFT SHIFT is Present. International normalized rat io (INR) calculationOrdered By: Maryanne Emanuel on 02-04-2025 INR Coag (Bld) [Relative time] 1.3 {INR} [facility] Ketones Test strip Ql (U)Ord ered By: Maryanne Emanuel on 02-04-2025 Ketones Ql (U) Negative Negative [facility] L499.0042on 02-04-2025 Trop T High Sen 111 ng/L Invalid Interpretation Code <=22 [facility] Comment on above: Result Comment: Crit ical Result(s) Called MMARTIN at: 2036 by:ARANZA??Results read back by same. Performed By: #### L 499.0042 ####[facility] [address] [place], [address] L499.0043on 02-04-2025 Trop T High Sen 114 ng/L Invalid Interpretation Code <=22 [facility] Comment on above: Result Comment: Crit ical Result(s) Called ESMART at: 3 by:ARANZA??Results read back by same. Performed By: #### L 499.0043 ####[facility] [address] [place], [address] L501.4021on 02-04-2025 Trop T High Sen 108 ng/L Invalid Interpretation Code <=22 [facility] Comment on above: Result Comment: Crit ical Result(s) Called MMARTIN at: 2 by:ARANZA??Results read back by same. Performed By: #### M 200.1000, L501.4021, L300.4310, L100.0100, L503.6005, L300.3900, L501.5200, L500.4050 ####[facility] [address] [place], [place], [address] L503.7505on 02-04-2025 Natriuretic peptide B (Bld) [Mass/Vol] 96106 pg/mL High <=1800 [facility] Comment on above: Result Comment: Hear t Failure Unlikely: < 300 pg/mLHeart Failure Likely< 50 Years: > 450 pg/mL50-75 Years: > 900 pg/mL>75 Years: > 1800 pg/mL Performed By: #### L 503.7505 ####[facility] [address] [place], [place], [id number] Laboratory - Chemistry and C hemistry - challengeOrdered By: Maryanne Emanuel on 02-04-2025 AST [Catalytic activity/Vol] 108 U/L High <38 [facility] Lactic Acidon 02-04-2025 Lactate [Moles/Vol] 1.3 mmol/L Normal 0.0-2.0 [facility] Comment on above: Order Comment: Y Performed By: #### M 200.1000, L501.4021, L300.4310, L100.0100, L503.6005, L300.3900, L501.5200, L500.4050 ####[facility] [address] [facility] [place], [place], [address] Lactic acid measurementOrder ed By: Maryanne Emanuel on 02-04-2025 Lactate [Moles/Vol] 1.3 mmol/L 0.0-2.0 [facility] MCV (mean corpuscular volume ) determinationOrdered By: Maryanne Emanuel on 02-04-2025 MCV (RBC) [Entitic vol] 85.4 fL 80-94 [facility] Magnesiumon 02-04-2025 Magnesium [Mass/Vol] 2.1 mg/dL Normal 1.5-2.2 [facility] Comment on above: Performed By: #### M 200.1000, L501.4021, L300.4310, L100.0100, L503.6005, L300.3900, L501.5200, L500.4050 ####[facility] [address] [place], [address] Magnesium measurement (mass/ volume)Ordered By: Maryanne Emanuel on 02-04-2025 Magnesium (Unsp spec) [Mass/Vol] 2.1 mg/dL 1.5-2.2 [facility] Mean corpuscular hemoglobin (MCH) determinationOrdered By: Maryanne Emanuel on 02-04-2025 MCH (RBC) [Entitic mass] 29.2 pg 27.0-32.0 [facility] Mean corpuscular hemoglobin concentration (MCHC) determinationOrdered By: Maryanne Emanuel on 02-04-2025 MCHC (RBC) [Mass/Vol] 34.2 g/dL 32-36 [facility] Mean platelet volume determi nationOrdered By: Maryanne Emanuel on 02-04-2025 Platelet mean volume (Bld) [Entitic vol] 11.4 fL 6.2-12.0 [facility] Microscopic analysis of urin e for red blood cells (RBC)Ordered By: Maryanne Emanuel on 02-04-2025 Microscopic analysis of urine for red blood cells (RBC) 0-5 SEEN /hpf 0-5 [facility] Monocyte percentageOrdered B y: Maryanne Emanuel on 02-04-2025 Monocytes/100 WBC (Bld) 7.4 % 0-10 [facility] Mucus LM Ql (Urine sed)Order ed By: Maryanne Emanuel on 02-04-2025 Mucus Ql (Urine sed) 0 SEEN /hpf [facility] Natriuretic peptide.B prohor alirio N-Terminal [Mass/volume] in Serum or PlasmaOrdered By: Maryanne Emanuel on 02-04-2025 Natriuretic peptide.B prohormone N-Terminal [Mass/Vol] 78699 pg/mL High <1800 [facility] Comment on above: Heart Failure Unlike ly: < 300 pg/mLHeart Failure Likely< 50 Years: > 450 pg/mL50-75 Years: > 900 pg/mL>75 Years: > 1800 pg/mL Neutrophil percentageOrdered By: Maryanne Emanuel on 02-04-2025 Neutrophils/100 WBC (Bld) 79.6 % High 47-70 [facility] Nitrite Test strip Ql (U)Ord ered By: Maryanne Emanuel on 02-04-2025 Nitrite Ql (U) Negative Negative [facility] No Panel InformationOrdered By: Maryanne Emanuel on 02-04-2025 Blood Gas Sample Site Not entered [facility] Blood Gas Specimen Type HEIDI [facility] Oxygen Delivery Device Room Air [facility] Nucleated red blood cell per centageOrdered By: Maryanne Emanuel on 02-04-2025 Nucleated RBC/100 WBC (Bld) [Ratio] 0 % 0-5 [facility] Partial Thromboplast Timeon 02-04-2025 aPTT Coag (Bld) [Time] 32.2 s Normal 24.1-36.2 [facility] Comment on above: Performed By: #### M 200.1000, L501.4021, L300.4310, L100.0100, L503.6005, L300.3900, L501.5200, L500.4050 ####[facility] [address] [place], [address] Platelet countOrdered By: John Emanuel on 02-04-2025 Platelets (Bld) [#/Vol] 82 10*3/uL Low 150-450 [facility] Platelet estimateOrdered By: Maryanne Emanuel on 02-04-2025 Platelets LM Ql (Bld) MOD DEC ADEQ [facility] Potassium measurement (mass/ volume)Ordered By: Maryanne Emanuel on 02-04-2025 Potassium (Unsp spec) [Mass/Vol] 3.9 mmol/L 3.3-5.1 [facility] Procalcitonin [Mass/volume] in Serum or Plasma by ImmunoassayOrdered By: Rea Cancino on 02-04-2025 Procalcitonin IA [Mass/Vol] 1.39 ng/mL High <0.11 [facility] Comment on above: Interpretation:<0.10 -0.25 ng/mL: Antibiotic [...] Protein Ql (U) 30 mg/dl High Negative [facility] Prothrombin Time w/INRon INR Normal [facility] Comment on above: Result Comment: NICOLETTE MCKINNEY RN Performed By: #### L 300.3900 ####[facility] [address] [place], [address] PROTIME Normal 11.7-14.9 [facility] Comment on above: Result Comment: NICOLETTE MCKINNEY RN Performed By: #### L 300.3900 ####[facility] [address] [place], [address] INR Coag (PPP) [Relative time] 1.3 {INR} Normal [facility] Comment on above: Performed By: #### M 200.1000, L501.4021, L300.4310, L100.0100, L503.6005, L300.3900, L501.5200, L500.4050 ####[facility] [address] [place], [address] PT Coag (PPP) [Time] 16.0 s High 11.7-14.9 [facility] Comment on above: Performed By: #### M 200.1000, L501.4021, L300.4310, L100.0100, L503.6005, L300.3900, L501.5200, L500.4050 ####[facility] [address] [place], [address] Prothrombin timeOrdered By: Maryanne Emanuel on 02-04-2025 PT Coag (PPP) [Time] 16.0 s High 11.7-14.9 [facility] RBC Auto (Bld) [#/Vol]Ordere d By: Maryanne Emanuel on 02-04-2025 RBC (Bld) [#/Vol] 3.63 10*6/uL Low 4.6-6.2 [facility] Serum creatinine measurement (mass/volume)Ordered By: Maraynne Emanuel on 02-04-2025 Creatinine [Mass/Vol] 1.94 mg/dL High 0.70-1.20 [facility] Serum globulin measurementOr dered By: Maryanne Emanuel on 02-04-2025 Globulin (S) [Mass/Vol] 2.4 g/dL 2.2-4.2 [facility] Serum glucose measurement (m ass/volume)Ordered By: Maryanne Emanuel on 02-04-2025 Glucose [Mass/Vol] 131 mg/dL High 70-99 [facility] Serum or plasma alanine holm otransferase (ALT) measurementOrdered By: Maryanne Emanuel on 02-04-2025 ALT [Catalytic activity/Vol] 84 U/L High <47 [facility] Serum or plasma albumin kelli urement (mass/volume)Ordered By: Maryanne Emanuel on 02-04-2025 Albumin [Mass/Vol] 3.5 g/dL 3.4-4.8 [facility] Serum or plasma albumin/glob ulin mass ratioOrdered By: Maryanne Emanuel on 02-04-2025 Albumin/Globulin [Mass ratio] 1.5 {ratio} 0.9-2.4 [facility] Serum or plasma alkaline karen sphatase measurementOrdered By: Maryanne Emanuel on 02-04-2025 ALP [Catalytic activity/Vol] 137 U/L High 40-129 [facility] Serum or plasma calcium kelli urement (mass/volume)Ordered By: Maryanne Emanuel on 02-04-2025 Calcium [Mass/Vol] 8.0 mg/dL 7.6-11.0 [facility] Serum or plasma urea nitroge n measurement (mass/volume)Ordered By: Maryanne Emanuel on 02-04-2025 Urea nitrogen [Mass/Vol] 50 mg/dL High 4-19 [facility] Sodium levelOrdered By: Oliva Emanuel on 02-04-2025 Sodium [Moles/Vol] 125 mmol/L Low 133-145 [facility] Squamous epithelial cells de tection in urine sediment by light microscopyOrdered By: Maryanne Emanuel on 02-04-2025 Epithelial cells.squamous LM Ql (Urine sed) 0-5 SEEN /hpf 0-5 [facility] Total proteinOrdered By: Missy Emanuel on 02-04-2025 Protein [Mass/Vol] 5.9 g/dL 5.9-8.4 [facility] Troponin T.cardiac [Mass/vol ume] in Serum or Plasma by High sensitivity methodOrdered By: Maryanne Emanuel on 02-04-2025 Troponin T.cardiac High sensitivity method [Mass/Vol] 114 ng/L Critically high <22 [facility] Comment on above: Critical Result(s) C alled ESMART at: 2232 by: ARANZA Results read back by same. Troponin T.cardiac High sensitivity method [Mass/Vol] 111 ng/L Critically high <22 [facility] Comment on above: Critical Result(s) C alled MMARTIN at: 2036 by: ARANZA Results read back by same. Troponin T.cardiac High sensitivity method [Mass/Vol] 108 ng/L Critically high <22 [facility] Comment on above: Critical Result(s) C alled MMARTIN at: 1931 by: ARANZA Results read back by same. Urinalysis, Completeon 02-04 AMORPHOUS 1+ Normal [facility] Comment on above: Order Comment: KERI CTOR TO SPECIFY Performed By: #### L 400.0001, ####[facility] [address] [place], [place], [address] BACTERIA 2+ /hpf Normal None Seen [facility] Comment on above: Order Comment: KERI CTOR TO SPECIFY Performed By: #### L 400.0001, ####[facility] [address] [place], [address] EPI,RENAL 0-5 SEEN Normal 0-5 [facility] Comment on above: Order Comment: KERI CTOR TO SPECIFY Performed By: #### L 400.0001, ####[facility] [address] [place], [address] EPI,SQUAMOUS 0-5 SEEN Normal 0-5 [facility] Comment on above: Order Comment: COLLE CTOR TO SPECIFY Performed By: #### L 400.0001, M100.2200 ####[facility] [address] [place], [address] RBC 0-5 SEEN Normal 0-5 [facility] Comment on above: Order Comment: COLLE CTOR TO SPECIFY Performed By: #### L 400.0001, M100.2200 ####[facility] [address] [place], [address] Mucus Ql (Urine sed) 0 SEEN Normal [facility] Comment on above: Order Comment: [facility] CTOR TO SPECIFY Performed By: #### L 400.0001, M100.2200 ####[facility] [address] [place], [address] WBC 0 SEEN Normal 0-5 [facility] Comment on above: Order Comment: [facility] CTOR TO SPECIFY Performed By: #### L 400.0001, M100.2200 ####[facility] [address] [place], [address] Urine clarityOrdered By: Missy Emanuel on 02-04-2025 Clarity (U) Sl. Cloudy Clear [facility] Urine color determinationOrd ered By: Maryanne Emanuel on 02-04-2025 Color (U) Yellow Yellow [facility] Urine cultureOrdered By: Missy Emanuel on 02-04-2025 Bacteria identified Cx Nom (U) Culture exhibits no growth. [facility] Urine glucose detectionOrder ed By: Maryanne Emanuel on 02-04-2025 Glucose Ql (U) Normal mg/dl Normal [facility] Urine leukocyte esterase det ection by dipstickOrdered By: Maryanne Emanuel on 02-04-2025 Leukocyte esterase Test strip Ql (U) Negative Negative [facility] Urine pHOrdered By: Maryanne zhao on 02-04-2025 pH (U) 5.0 [pH] 5.0 - 8.0 [facility] Urine sediment bacteria coun t by microscopy (number/high power field)Ordered By: Maryanne Emanuel on 02-04-2025 Bacteria LM.HPF (Urine sed) [#/Area] 2 /[HPF] None Seen [facility] Urine sediment renal epithel ial cell count by microscopy (number/high power field)Ordered By: Maryanne Emanuel on 02-04-2025 Epithelial cells.renal LM.HPF (Urine sed) [#/Area] 0 /[HPF] 0-5 [facility] Urine specific gravity measu rementOrdered By: Maryanne Emanuel on 02-04-2025 Specific gravity (U) [Rel density] 1.020 1.002-1.03 0 [facility] Urine urobilinogen measureme ntOrdered By: Maryanne Emanuel on 02-04-2025 Urobilinogen Ql (U) Normal mg/dl Normal [facility] Venous Blood Gason 5 Blood Gas Type HEIDI Normal [facility] Comment on above: Performed By: #### L 9000.0810 ####[facility] [address] [place], [place], [id number] CO2 [Moles/Vol] 21 mmol/L Low 23-33 [facility] Comment on above: Performed By: #### L 9000.0810 ####[facility] [address] [place], [place], [id number] HCO3 (Bld) [Moles/Vol] 20 mmol/L Low 22-26 [facility] Comment on above: Performed By: #### L 9000.0810 ####[facility] [address] [place], [place], [phone] O2 Delivery Dev Room Air Normal [facility] Comment on above: Performed By: #### L 9000.0810 ####[facility] [address] [place], [address] SITE Not entered Normal [facility] Comment on above: Performed By: #### L 9000.0810 ####[facility] [address] [place], [place], [id number] VBG BE -4 mmol/L Low -1.0-3.5 [facility] Comment on above: Performed By: #### L 9000.0810 ####[facility] [address] [place], [place], [phone] VBG pCO2 27.3 mmHg Low 41-51 [facility] Comment on above: Performed By: #### L 9000.0810 ####[facility] [address] [place], [address] VBG pH 7.47 High 7.32-7.42 [facility] Comment on above: Performed By: #### L 9000.0810 ####[facility] [address] [place], [address] VBG PO2 37 mmHg Normal 25-40 [facility] Comment on above: Performed By: #### L 9000.0810 ####[facility] [address] [place], [address] VBG SO2 76 High 50-70 [facility] Comment on above: Performed By: #### L 9000.0810 ####[facility] [address] [place], [address] Venous blood base excess irwin surementOrdered By: Maryanne Emanuel on 02-04-2025 Base excess Calc (BldV) [Moles/Vol] -4 mmol/L Low -1.0-3.5 [facility] Venous blood bicarbonate irwin surementOrdered By: Maryanne Emanuel on 02-04-2025 HCO3 (Bld) [Moles/Vol] 20 mmol/L Low 22-26 [facility] Venous blood oxygen saturati on measurementOrdered By: Maryanne Emanuel on 02-04-2025 Oxygen saturation in Blood 76 % High 50-70 [facility] Venous blood pH measurementO rdered By: Maryanne Emanuel on 02-04-2025 pH (BldV) 7.47 [pH] High 7.32-7.42 [facility] Venous blood partial pressur e of carbon dioxide measurementOrdered By: Maryanne Emanuel on 02-04-2025 CO2 (BldV) [Partial pressure] 27.3 mm[Hg] Low 41-51 [facility] Venous blood partial pressur e of oxygen measurementOrdered By: Maryanne Emanuel on 02-04-2025 Oxygen (BldV) [Partial pressure] 37 mm[Hg] 25-40 [facility] White blood cell (WBC) count Ordered By: Maryanne Emanuel on 02-04-2025 WBC (Bld) [#/Vol] 5.7 10*3/uL 4.4-11.0 [facility] White blood cell countOrdere d By: Maryanne Emanuel on 02-04-2025 White blood cell count 0 SEEN /hpf 0-5 [facility] Cardiology Visit Reporton Cardiology Visit Report Normal [facility] Basic Metabolic Profile (BMP )on 12-15-2024 BUN Normal 4-19 [facility] Comment on above: Result Comment: Canc elled via OM: Order cancelled - Patient discharged Performed By: #### L 500.2500, L100.0100 ####[facility] [address] [place], [address] BUN/CRE Normal 10-20 [facility] Comment on above: Result Comment: Canc elled via OM: Order cancelled - Patient discharged Performed By: #### L 500.2500, L100.0100 ####[facility] [address] [place], [address] Calcium Normal 7.6-11.0 [facility] Comment on above: Result Comment: Canc elled via OM: Order cancelled - Patient discharged Performed By: #### L 500.2500, L100.0100 ####[facility] [address] [place], [address] CL Normal 98-108 [facility] Comment on above: Result Comment: Canc elled via OM: Order cancelled - Patient discharged Performed By: #### L 500.2500, L100.0100 ####[facility] [address] [place], [address] CO2 Normal 21.0-32.0 [facility] Comment on above: Result Comment: Canc elled via OM: Order cancelled - Patient discharged Performed By: #### L 500.2500, L100.0100 ####[facility] [address] [place], [address] CREAT,SERUM Normal 0.70-1.20 [facility] Comment on above: Result Comment: Canc elled via OM: Order cancelled - Patient discharged Performed By: #### L 500.2500, L100.0100 ####[facility] [address] [place], [address] eGFR Normal >60 [facility] Comment on above: Result Comment: Canc elled via OM: Order cancelled - Patient discharged Performed By: #### L 500.2500, L100.0100 ####[facility] [address] [place], [address] GAP Normal 5-15 [facility] Comment on above: Result Comment: Canc elled via OM: Order cancelled - Patient discharged Performed By: #### L 500.2500, L100.0100 ####[facility] [address] [place], [address] GLU Normal 70-99 [facility] Comment on above: Result Comment: Canc elled via OM: Order cancelled - Patient discharged Performed By: #### L 500.2500, L100.0100 ####[facility] [address] [place], [address] Potassium Normal 3.3-5.1 [facility] Comment on above: Result Comment: Canc elled via OM: Order cancelled - Patient discharged Performed By: #### L 500.2500, L100.0100 ####[facility] [address] [place], [address] Basic Metabolic Profile (BMP) Normal 133-145 [facility] Comment on above: Result Comment: Canc elled via OM: Order cancelled - Patient discharged Performed By: #### L 500.2500, L100.0100 ####[facility] [address] [place], [address] CBC W/Diff, Automatedon 05-0 -2024 Absolute Neut Normal 2.0-7.7 [facility] Comment on above: Result Comment: Canc elled via OM: Order cancelled - Patient discharged Performed By: #### L 500.2500, L100.0100 ####[facility] [address] [place], [address] HCT Normal 40-54 [facility] Comment on above: Result Comment: Canc elled via OM: Order cancelled - Patient discharged Performed By: #### L 500.2500, L100.0100 ####[facility] [address] [place], [address] HGB Normal 13.0-16.5 [facility] Comment on above: Result Comment: Canc elled via OM: Order cancelled - Patient discharged Performed By: #### L 500.2500, L100.0100 ####[facility] [address] [place], [address] MCH Normal 27.0-32.0 [facility] Comment on above: Result Comment: Canc elled via OM: Order cancelled - Patient discharged Performed By: #### L 500.2500, L100.0100 ####[facility] [address] [place], [address] MCHC Normal 32-36 [facility] Comment on above: Result Comment: Canc elled via OM: Order cancelled - Patient discharged Performed By: #### L 500.2500, L100.0100 ####[facility] [address] [place], [address] MCV Normal 80-94 [facility] Comment on above: Result Comment: Canc elled via OM: Order cancelled - Patient discharged Performed By: #### L 500.2500, L100.0100 ####[facility] [address] [place], [address] NEUT% Normal 47-70 [facility] Comment on above: Result Comment: Canc elled via OM: Order cancelled - Patient discharged Performed By: #### L 500.2500, L100.0100 ####[facility] [address] [place], [address] PLT Normal 150-450 [facility] Comment on above: Result Comment: Canc elled via OM: Order cancelled - Patient discharged Performed By: #### L 500.2500, L100.0100 ####[facility] [address] [place], [address] RBC Normal 4.6-6.2 [facility] Comment on above: Result Comment: Canc elled via OM: Order cancelled - Patient discharged Performed By: #### L 500.2500, L100.0100 ####[facility] [address] [place], [address] RDW CV Normal 11.6-14.6 [facility] Comment on above: Result Comment: Canc elled via OM: Order cancelled - Patient discharged Performed By: #### L 500.2500, L100.0100 ####[facility] [address] [place], [address] RDW SD Normal 35.1-43.9 [facility] Comment on above: Result Comment: Canc elled via OM: Order cancelled - Patient discharged Performed By: #### L 500.2500, L100.0100 ####[facility] [address] [place], [address] WBC Normal 4.4-11.0 [facility] Comment on above: Result Comment: Canc elled via OM: Order cancelled - Patient discharged Performed By: #### L 500.2500, L100.0100 ####[facility] [address] [place], [address] Basic Metabolic Profile (BMP )on 12-14-2024 BUN Normal 4-19 [facility] Comment on above: Result Comment: Canc elled via OM: Order cancelled - Patient discharged Performed By: #### L 100.0100, L500.2500 ####[facility] [address] [place], [address] BUN/CRE Normal 10-20 [facility] Comment on above: Result Comment: Canc elled via OM: Order cancelled - Patient discharged Performed By: #### L 100.0100, L500.2500 ####[facility] [address] [place], [address] Calcium Normal 7.6-11.0 [facility] Comment on above: Result Comment: Canc elled via OM: Order cancelled - Patient discharged Performed By: #### L 100.0100, L500.2500 ####[facility] [address] [place], [address] CL Normal 98-108 [facility] Comment on above: Result Comment: Canc elled via OM: Order cancelled - Patient discharged Performed By: #### L 100.0100, L500.2500 ####[facility] [address] [place], [address] CO2 Normal 21.0-32.0 [facility] Comment on above: Result Comment: Canc elled via OM: Order cancelled - Patient discharged Performed By: #### L 100.0100, L500.2500 ####[facility] [address] [place], [address] CREAT,SERUM Normal 0.70-1.20 [facility] Comment on above: Result Comment: Canc elled via OM: Order cancelled - Patient discharged Performed By: #### L 100.0100, L500.2500 ####[facility] [address] [place], [address] eGFR Normal >60 [facility] Comment on above: Result Comment: Canc elled via OM: Order cancelled - Patient discharged Performed By: #### L 100.0100, L500.2500 ####[facility] [address] [place], [address] GAP Normal 5-15 [facility] Comment on above: Result Comment: Canc elled via OM: Order cancelled - Patient discharged Performed By: #### L 100.0100, L500.2500 ####[facility] [address] [place], [address] GLU Normal 70-99 [facility] Comment on above: Result Comment: Canc elled via OM: Order cancelled - Patient discharged Performed By: #### L 100.0100, L500.2500 ####[facility] [address] [place], [address] Potassium Normal 3.3-5.1 [facility] Comment on above: Result Comment: Canc elled via OM: Order cancelled - Patient discharged Performed By: #### L 100.0100, L500.2500 ####[facility] [address] [place], [address] Basic Metabolic Profile (BMP) Normal 133-145 [facility] Comment on above: Result Comment: Canc elled via OM: Order cancelled - Patient discharged Performed By: #### L 100.0100, L500.2500 ####[facility] [address] [place], [address] CBC W/Diff, Automatedon 05-0 -2024 Absolute Neut Normal 2.0-7.7 [facility] Comment on above: Result Comment: Canc elled via OM: Order cancelled - Patient discharged Performed By: #### L 100.0100, L500.2500 ####[facility] [address] [place], [address] HCT Normal 40-54 [facility] Comment on above: Result Comment: Canc elled via OM: Order cancelled - Patient discharged Performed By: #### L 100.0100, L500.2500 ####[facility] [address] [place], [address] HGB Normal 13.0-16.5 [facility] Comment on above: Result Comment: Canc elled via OM: Order cancelled - Patient discharged Performed By: #### L 100.0100, L500.2500 ####[facility] [address] [place], [address] MCH Normal 27.0-32.0 [facility] Comment on above: Result Comment: Canc elled via OM: Order cancelled - Patient discharged Performed By: #### L 100.0100, L500.2500 ####[facility] [address] [place], [address] MCHC Normal 32-36 [facility] Comment on above: Result Comment: Canc elled via OM: Order cancelled - Patient discharged Performed By: #### L 100.0100, L500.2500 ####[facility] [address] [place], [address] MCV Normal 80-94 [facility] Comment on above: Result Comment: Canc elled via OM: Order cancelled - Patient discharged Performed By: #### L 100.0100, L500.2500 ####[facility] [address] [place], [address] NEUT% Normal 47-70 [facility] Comment on above: Result Comment: Canc elled via OM: Order cancelled - Patient discharged Performed By: #### L 100.0100, L500.2500 ####[facility] [address] [place], [address] PLT Normal 150-450 [facility] Comment on above: Result Comment: Canc elled via OM: Order cancelled - Patient discharged Performed By: #### L 100.0100, L500.2500 ####[facility] [address] [place], [address] RBC Normal 4.6-6.2 [facility] Comment on above: Result Comment: Canc elled via OM: Order cancelled - Patient discharged Performed By: #### L 100.0100, L500.2500 ####[facility] [address] [place], [address] RDW CV Normal 11.6-14.6 [facility] Comment on above: Result Comment: Canc elled via OM: Order cancelled - Patient discharged Performed By: #### L 100.0100, L500.2500 ####[facility] [address] [place], [address] RDW SD Normal 35.1-43.9 [facility] Comment on above: Result Comment: Canc elled via OM: Order cancelled - Patient discharged Performed By: #### L 100.0100, L500.2500 ####[facility] [address] [place], [address] WBC Normal 4.4-11.0 [facility] Comment on above: Result Comment: Canc elled via OM: Order cancelled - Patient discharged Performed By: #### L 100.0100, L500.2500 ####[facility] [address] [place], [address] Absolute lymphocyte countOrd ered By: Gaurang Cortes on 12-13-2024 Lymphocytes Auto (Unsp spec) [#/Vol] 2.14 10*3/uL 0.83-4.51 [facility] Absolute neutrophil countOrd ered By: Gaurang Cortes on 12-13-2024 Neutrophils (Bld) [#/Vol] 2.8 10*3/uL 2.0-7.7 [facility] Anion gap in Serum or Plasma Ordered By: Gaurang Cortes on 12-13-2024 Anion gap [Moles/Vol] 11 mmol/L 5-15 [facility] Automated lymphocyte count a s percentage of total leukocytesOrdered By: Gaurang Cortes on 12-13-2024 Lymphocytes/100 WBC Auto (Unsp spec) 36.5 % - [facility] BUN/creatinine ratioOrdered By: Gaurang Cortes on 12-13-2024 Urea nitrogen/Creatinine [Mass ratio] 32.6 mg/mg High 10- [facility] Basic Metabolic Profile (BMP )on 12-13-2024 BUN/CRE 32.6 RATIO High 10- [facility] Comment on above: Performed By: #### L 100.0100, L500.2500, L501.5200, L501.2300 ####[facility] [address] [place], [address] Calcium [Mass/Vol] 9.1 mg/dL Normal 7.6-11.0 [facility] Comment on above: Performed By: #### L 100.0100, L500.2500, L501.5200, L501.2300 ####[facility] [address] [place], [address] Chloride [Moles/Vol] 101 mmol/L Normal 98-108 [facility] Comment on above: Performed By: #### L 100.0100, L500.2500, L501.5200, L501.2300 ####[facility] [address] [place], [address] CO2 [Moles/Vol] 24.2 mmol/L Normal 21.0-32.0 [facility] Comment on above: Performed By: #### L 100.0100, L500.2500, L501.5200, L501.2300 ####[facility] [address] [place], [address] Creatinine [Mass/Vol] 1.56 mg/dL High 0.70-1.20 [facility] Comment on above: Performed By: #### L 100.0100, L500.2500, L501.5200, L501.2300 ####[facility] [address] [place], [address] ECRCL 35.16 ml/min Low 50-250 [facility] Comment on above: Performed By: #### L 100.0100, L500.2500, L501.5200, L501.2300 ####[facility] [address] [place], [address] GAP 11 Normal 5-15 [facility] Comment on above: Performed By: #### L 100.0100, L500.2500, L501.5200, L501.2300 ####[facility] [address] [place], [address] GFR/1.73 sq M.predicted among non-blacks MDRD (S/P/Bld) [Vol rate/Area] 44 mL/min/{1.73_m2} Low >60 [facility] Comment on above: Result Comment: mL/m in/1.73m2 CKD-EPI Creatinine Equation (2020) Performed By: #### L 100.0100, L500.2500, L501.5200, L501.2300 ####[facility] [address] [place], [address] Glucose [Mass/Vol] 100 mg/dL High 70-99 [facility] Comment on above: Performed By: #### L 100.0100, L500.2500, L501.5200, L501.2300 ####[facility] [address] [place], [address] Potassium [Moles/Vol] 4.3 mmol/L Normal 3.3-5.1 [facility] Comment on above: Performed By: #### L 100.0100, L500.2500, L501.5200, L501.2300 ####[facility] [address] [place], [address] Sodium [Moles/Vol] 137 mmol/L Normal 133-145 [facility] Comment on above: Performed By: #### L 100.0100, L500.2500, L501.5200, L501.2300 ####[facility] [address] [place], [address] Urea nitrogen [Mass/Vol] 51 mg/dL High 4-19 [facility] Comment on above: Performed By: #### L 100.0100, L500.2500, L501.5200, L501.2300 ####[facility] [address] [place], [address] Basophil percentageOrdered B y: Gaurang Cortes on 12-13-2024 Basophils/100 WBC (Bld) 0.5 % 0-1 [facility] CBC W/Diff, Automatedon 05-0 Absolute Lymph 2.14 X10 3/uL Normal 0.83-4.51 [facility] Comment on above: Performed By: #### L 100.0100, L500.2500, L501.5200, L501.2300 ####[facility] [address] [place], [address] Absolute Neut 2.8 X10 3/uL Normal 2.0-7.7 [facility] Comment on above: Performed By: #### L 100.0100, L500.2500, L501.5200, L501.2300 ####[facility] [address] [place], [address] Basophils/100 WBC (Bld) 0.5 % Normal 0-1 [facility] Comment on above: Performed By: #### L 100.0100, L500.2500, L501.5200, L501.2300 ####[facility] [address] [place], [address] Eosinophils/100 WBC (Bld) 4.9 % Normal 0-5 [facility] Comment on above: Performed By: #### L 100.0100, L500.2500, L501.5200, L501.2300 ####[facility] [address] [place], [address] Erythrocyte distribution width (RBC) [Ratio] 14.9 % High 11.6-14.6 [facility] Comment on above: Performed By: #### L 100.0100, L500.2500, L501.5200, L501.2300 ####[facility] [address] [place], [address] Hematocrit (Bld) [Volume fraction] 32.2 % Low 40-54 [facility] Comment on above: Performed By: #### L 100.0100, L500.2500, L501.5200, L501.2300 ####[facility] [address] [place], [address] Hemoglobin (Bld) [Mass/Vol] 10.8 g/dL Low 13.0-16.5 [facility] Comment on above: Performed By: #### L 100.0100, L500.2500, L501.5200, L501.2300 ####[facility] [address] [place], [address] IG% 0.200 Normal 0.0-0.9 [facility] Comment on above: Result Comment: IG% - Immature Granulocytes (promyelocytes, myelocytes andmetamyelocytes) > 1% indicates that a LEFT SHIFT is Present. Performed By: #### L 100.0100, L500.2500, L501.5200, L501.2300 ####[facility] [address] [place], [address] Lymphocytes/100 WBC (Bld) 36.5 % Normal 19-41 [facility] Comment on above: Performed By: #### L 100.0100, L500.2500, L501.5200, L501.2300 ####[facility] [address] [place], [address] MCH (RBC) [Entitic mass] 30.0 pg Normal 27.0-32.0 [facility] Comment on above: Performed By: #### L 100.0100, L500.2500, L501.5200, L501.2300 ####[facility] [address] [place], [address] MCHC (RBC) [Mass/Vol] 33.5 g/dL Normal 32-36 [facility] Comment on above: Performed By: #### L 100.0100, L500.2500, L501.5200, L501.2300 ####[facility] [address] [place], [address] MCV (RBC) [Entitic vol] 89.4 fL Normal 80-94 [facility] Comment on above: Performed By: #### L 100.0100, L500.2500, L501.5200, L501.2300 ####[facility] [address] [place], [address] Monocytes/100 WBC (Bld) 10.9 % High 0-10 [facility] Comment on above: Performed By: #### L 100.0100, L500.2500, L501.5200, L501.2300 ####[facility] [address] [place], [address] Neutrophils/100 WBC (Bld) 47.0 % Normal 47-70 [facility] Comment on above: Performed By: #### L 100.0100, L500.2500, L501.5200, L501.2300 ####[facility] [address] [place], [address] Nucleated RBC (Bld) [#/Vol] 0 10*3/uL Normal 0-5 [facility] Comment on above: Performed By: #### L 100.0100, L500.2500, L501.5200, L501.2300 ####[facility] [address] [place], [address] Platelet mean volume (Bld) [Entitic vol] 10.7 fL Normal 6.2-12.0 [facility] Comment on above: Performed By: #### L 100.0100, L500.2500, L501.5200, L501.2300 ####[facility] [address] [place], [address] Platelets (Bld) [#/Vol] 157 10*3/uL Normal 150-450 [facility] Comment on above: Performed By: #### L 100.0100, L500.2500, L501.5200, L501.2300 ####[facility] [address] [place], [address] RBC (Bld) [#/Vol] 3.60 10*6/uL Low 4.6-6.2 [facility] Comment on above: Performed By: #### L 100.0100, L500.2500, L501.5200, L501.2300 ####[facility] [address] [place], [address] RDW SD 49.4 fl High 35.1-43.9 [facility] Comment on above: Performed By: #### L 100.0100, L500.2500, L501.5200, L501.2300 ####[facility] [address] [place], [address] WBC (Bld) [#/Vol] 5.9 10*3/uL Normal 4.4-11.0 [facility] Comment on above: Performed By: #### L 100.0100, L500.2500, L501.5200, L501.2300 ####[facility] [address] [place], [address] Carbon dioxide, total [Moles /volume] in Central venous bloodOrdered By: Gaurang Cortes on 12-13-2024 CO2 [Moles/Vol] 24.2 mmol/L 21.0-32.0 [facility] Chloride assayOrdered By: Vic Cortes on 12-13-2024 Chloride [Moles/Vol] 101 mmol/L 98-108 [facility] Eosinophil percentageOrdered By: Gaurang Cortes on 12-13-2024 Eosinophils/100 WBC (Bld) 4.9 % 0-5 [facility] Erythrocyte distribution wid th ratioOrdered By: Gaurang Cortes on 12-13-2024 Erythrocyte distribution width (RBC) [Ratio] 14.9 % High 11.6-14.6 [facility] Erythrocyte distribution wid th standard deviationOrdered By: Gaurang Cortes on 12-13-2024 Erythrocyte distribution width (RBC) [Ratio] 49.4 fl High 35.1-43.9 [facility] Glomerular filtration rate ( GFR) estimation/1.73 sq m using serum, plasma, or whole bOrdered By: Gaurang Cortes on 12-13-2024 GFR/1.73 sq M.predicted among non-blacks MDRD (S/P/Bld) [Vol rate/Area] 44 mL/min/{1.73_m2} Low >60 [facility] Comment on above: mL/min/1.73m2 CKD-EP I Creatinine Equation (2020) Hematocrit Auto (Bld) [Volum e fraction]Ordered By: Gaurang Cortes on 12-13-2024 Hematocrit (Bld) [Volume fraction] 32.2 % Low 40-54 [facility] Hemoglobin measurementOrdere d By: Gaurang Cortes on 12-13-2024 Hemoglobin (Bld) [Mass/Vol] 10.8 g/dL Low 13.0-16.5 [facility] Immature granulocytes/100 WB C Auto (Bld)Ordered By: Gaurang Cortes on 12-13-2024 Immature granulocytes/100 WBC (Bld) 0.200 % 0.0-0.9 [facility] Comment on above: IG% - Immature Granu locytes (promyelocytes, myelocytes and metamyelocytes) > 1% indicates that a LEFT SHIFT is Present. MCV (mean corpuscular volume ) determinationOrdered By: Gaurang Cortes on 12-13-2024 MCV (RBC) [Entitic vol] 89.4 fL 80-94 [facility] Magnesiumon 12-13-2024 Magnesium [Mass/Vol] 2.5 mg/dL High 1.5-2.2 [facility] Comment on above: Performed By: #### L 100.0100, L500.2500, L501.5200, L501.2300 ####[facility] [address] [place], [place], [address] Magnesium measurement (mass/ volume)Ordered By: Gaurang Cortes on 12-13-2024 Magnesium (Unsp spec) [Mass/Vol] 2.5 mg/dL High 1.5-2.2 [facility] Mean corpuscular hemoglobin (MCH) determinationOrdered By: Gaurang Cortes on 12-13-2024 MCH (RBC) [Entitic mass] 30.0 pg 27.0-32.0 [facility] Mean corpuscular hemoglobin concentration (MCHC) determinationOrdered By: Gaurang Cortes on 12-13-2024 MCHC (RBC) [Mass/Vol] 33.5 g/dL 32-36 [facility] Mean platelet volume determi nationOrdered By: Gaurang Cortes on 12-13-2024 Platelet mean volume (Bld) [Entitic vol] 10.7 fL 6.2-12.0 [facility] Monocyte percentageOrdered B y: Gaurang Cortes on 12-13-2024 Monocytes/100 WBC (Bld) 10.9 % High 0-10 [facility] Neutrophil percentageOrdered By: Gaurang Cortes on 05-02-2025 Neutrophils/100 WBC (Bld) 47.0 % 47-70 [facility] Nucleated red blood cell per centageOrdered By: Gaurang Cortes on 12-13-2024 Nucleated RBC/100 WBC (Bld) [Ratio] 0 % 0-5 [facility] Phosphoruson 12-13-2024 Phosphate [Mass/Vol] 3.6 mg/dL Normal 2.7-4.5 [facility] Comment on above: Performed By: #### L 100.0100, L500.2500, L501.5200, L501.2300 ####[facility] [address] [place], [address] Platelet countOrdered By: Vic Cortes on 12-13-2024 Platelets (Bld) [#/Vol] 157 10*3/uL 150-450 [facility] Potassium measurement (mass/ volume)Ordered By: Gaurang Cortes on 12-13-2024 Potassium (Unsp spec) [Mass/Vol] 4.3 mmol/L 3.3-5.1 [facility] RBC Auto (Bld) [#/Vol]Ordere d By: Gaurang Cortes on 12-13-2024 RBC (Bld) [#/Vol] 3.60 10*6/uL Low 4.6-6.2 [facility] Serum creatinine measurement (mass/volume)Ordered By: Gaurang Cortes on 12-13-2024 Creatinine [Mass/Vol] 1.56 mg/dL High 0.70-1.20 [facility] Serum glucose measurement (m ass/volume)Ordered By: Gaurang Cortes on 12-13-2024 Glucose [Mass/Vol] 100 mg/dL High 70-99 [facility] Serum or plasma calcium kelli urement (mass/volume)Ordered By: Gaurang Cortes on 12-13-2024 Calcium [Mass/Vol] 9.1 mg/dL 7.6-11.0 [facility] Serum or plasma urea nitroge n measurement (mass/volume)Ordered By: Gaurang Cortes on 12-13-2024 Urea nitrogen [Mass/Vol] 51 mg/dL High 4-19 [facility] Sodium levelOrdered By: Sebastien Cortes on 12-13-2024 Sodium [Moles/Vol] 137 mmol/L 133-145 [facility] White blood cell (WBC) count Ordered By: Gaurang Cortes on 12-13-2024 WBC (Bld) [#/Vol] 5.9 10*3/uL 4.4-11.0 [facility] 12 Lead EKGon 12-12-2024 12 Lead EKG Normal [facility] Basic Metabolic Profile (BMP )on 12-12-2024 BUN/CRE 32.4 RATIO High 10-20 [facility] Comment on above: Performed By: #### L 100.0100, L503.7505, L500.2500 ####[facility] [address] [place], [address] Calcium [Mass/Vol] 9.0 mg/dL Normal 7.6-11.0 [facility] Comment on above: Performed By: #### L 100.0100, L503.7505, L500.2500 ####[facility] [address] [place], [address] Chloride [Moles/Vol] 100 mmol/L Normal 98-108 [facility] Comment on above: Performed By: #### L 100.0100, L503.7505, L500.2500 ####[facility] [address] [place], [address] CO2 [Moles/Vol] 19.4 mmol/L Low 21.0-32.0 [facility] Comment on above: Performed By: #### L 100.0100, L503.7505, L500.2500 ####[facility] [address] [place], [address] Creatinine [Mass/Vol] 1.66 mg/dL High 0.70-1.20 [facility] Comment on above: Performed By: #### L 100.0100, L503.7505, L500.2500 ####[facility] [address] [place], [address] ECRCL 33.42 ml/min Low 50-250 [facility] Comment on above: Performed By: #### L 100.0100, L503.7505, L500.2500 ####[facility] [address] [place], [address] GAP 14 Normal 5-15 [facility] Comment on above: Performed By: #### L 100.0100, L503.7505, L500.2500 ####[facility] [address] [place], [address] GFR/1.73 sq M.predicted among non-blacks MDRD (S/P/Bld) [Vol rate/Area] 40 mL/min/{1.73_m2} Low >60 [facility] Comment on above: Result Comment: mL/m in/1.73m2 CKD-EPI Creatinine Equation (2020) Performed By: #### L 100.0100, L503.7505, L500.2500 ####[facility] [address] [place], [address] Glucose [Mass/Vol] 100 mg/dL High 70-99 [facility] Comment on above: Performed By: #### L 100.0100, L503.7505, L500.2500 ####[facility] [address] [place], [address] Potassium [Moles/Vol] 4.3 mmol/L Normal 3.3-5.1 [facility] Comment on above: Performed By: #### L 100.0100, L503.7505, L500.2500 ####[facility] [address] [place], [address] Sodium [Moles/Vol] 133 mmol/L Normal 133-145 [facility] Comment on above: Performed By: #### L 100.0100, L503.7505, L500.2500 ####[facility] [address] [place], [address] Urea nitrogen [Mass/Vol] 54 mg/dL High 4-19 [facility] Comment on above: Performed By: #### L 100.0100, L503.7505, L500.2500 ####[facility] [address] [place], [address] CBC W/Diff, Automatedon 05-0 -2024 Absolute Lymph 2.50 X10 3/uL Normal 0.83-4.51 [facility] Comment on above: Performed By: #### L 100.0100, L503.7505, L500.2500 ####[facility] [address] [place], [address] Absolute Neut 3.3 X10 3/uL Normal 2.0-7.7 [facility] Comment on above: Performed By: #### L 100.0100, L503.7505, L500.2500 ####[facility] [address] [place], [address] Basophils/100 WBC (Bld) 0.4 % Normal 0-1 [facility] Comment on above: Performed By: #### L 100.0100, L503.7505, L500.2500 ####[facility] [address] [place], [address] Eosinophils/100 WBC (Bld) 5.4 % High 0-5 [facility] Comment on above: Performed By: #### L 100.0100, L503.7505, L500.2500 ####[facility] [address] [place], [address] Erythrocyte distribution width (RBC) [Ratio] 14.8 % High 11.6-14.6 [facility] Comment on above: Performed By: #### L 100.0100, L503.7505, L500.2500 ####[facility] [address] [place], [address] Hematocrit (Bld) [Volume fraction] 32.1 % Low 40-54 [facility] Comment on above: Performed By: #### L 100.0100, L503.7505, L500.2500 ####[facility] [address] [place], [address] Hemoglobin (Bld) [Mass/Vol] 11.0 g/dL Low 13.0-16.5 [facility] Comment on above: Performed By: #### L 100.0100, L503.7505, L500.2500 ####[facility] [address] [place], [address] IG% 0.300 Normal 0.0-0.9 [facility] Comment on above: Result Comment: IG% - Immature Granulocytes (promyelocytes, myelocytes andmetamyelocytes) > 1% indicates that a LEFT SHIFT is Present. Performed By: #### L 100.0100, L503.7505, L500.2500 ####[facility] [address] [place], [address] Lymphocytes/100 WBC (Bld) 36.4 % Normal 19-41 [facility] Comment on above: Performed By: #### L 100.0100, L503.7505, L500.2500 ####[facility] [address] [place], [address] MCH (RBC) [Entitic mass] 30.4 pg Normal 27.0-32.0 [facility] Comment on above: Performed By: #### L 100.0100, L503.7505, L500.2500 ####[facility] [address] [place], [address] MCHC (RBC) [Mass/Vol] 34.3 g/dL Normal 32-36 [facility] Comment on above: Performed By: #### L 100.0100, L503.7505, L500.2500 ####[facility] [address] [place], [address] MCV (RBC) [Entitic vol] 88.7 fL Normal 80-94 [facility] Comment on above: Performed By: #### L 100.0100, L503.7505, L500.2500 ####[facility] [address] [place], [address] Monocytes/100 WBC (Bld) 10.2 % High 0-10 [facility] Comment on above: Performed By: #### L 100.0100, L503.7505, L500.2500 ####[facility] [address] [place], [address] Neutrophils/100 WBC (Bld) 47.3 % Normal 47-70 [facility] Comment on above: Performed By: #### L 100.0100, L503.7505, L500.2500 ####[facility] [address] [place], [address] Nucleated RBC (Bld) [#/Vol] 0 10*3/uL Normal 0-5 [facility] Comment on above: Performed By: #### L 100.0100, L503.7505, L500.2500 ####[facility] [address] [place], [address] Platelet mean volume (Bld) [Entitic vol] 10.8 fL Normal 6.2-12.0 [facility] Comment on above: Performed By: #### L 100.0100, L503.7505, L500.2500 ####[facility] [address] [place], [address] Platelets (Bld) [#/Vol] 138 10*3/uL Low 150-450 [facility] Comment on above: Performed By: #### L 100.0100, L503.7505, L500.2500 ####[facility] [address] [place], [address] RBC (Bld) [#/Vol] 3.62 10*6/uL Low 4.6-6.2 [facility] Comment on above: Performed By: #### L 100.0100, L503.7505, L500.2500 ####[facility] [address] [place], [address] RDW SD 48.0 fl High 35.1-43.9 [facility] Comment on above: Performed By: #### L 100.0100, L503.7505, L500.2500 ####[facility] [address] [place], [address] WBC (Bld) [#/Vol] 6.9 10*3/uL Normal 4.4-11.0 [facility] Comment on above: Performed By: #### L 100.0100, L503.7505, L500.2500 ####[facility] [address] [place], [address] Chest PA and Lateralon 12-12 Chest PA and Lateral Normal [facility] Echo Complete W/ Contraston 12-12-2024 Echo Complete W/ Contrast Normal [facility] Emergency Department Summary on 12-12-2024 Emergency Department Summary Normal [facility] H AND P Exam - Hospitaliston 12-12-2024 H&P Exam - Hospitalist Normal [facility] L503.7505on 12-12-2024 Natriuretic peptide B (Bld) [Mass/Vol] 8635 pg/mL High <=1800 [facility] Comment on above: Result Comment: Hear t Failure Unlikely: < 300 pg/mLHeart Failure Likely< 50 Years: > 450 pg/mL50-75 Years: > 900 pg/mL>75 Years: > 1800 pg/mL Performed By: #### L 100.0100, L503.7505, L500.2500 ####[facility] [address] [place], [address] Natriuretic peptide.B prohor alirio N-Terminal [Mass/volume] in Serum or PlasmaOrdered By: Jose Lopez on 12-12-2024 Natriuretic peptide.B prohormone N-Terminal [Mass/Vol] 8635 pg/mL High <1800 [facility] Comment on above: Heart Failure Unlike ly: < 300 pg/mLHeart Failure Likely< 50 Years: > 450 pg/mL50-75 Years: > 900 pg/mL>75 Years: > 1800 pg/mL Anion gap in Serum or Plasma Ordered By: Karo Sewell on 11-18-2024 Anion gap [Moles/Vol] 13 mmol/L - [facility] BUN/creatinine ratioOrdered By: Karo Sewell on 11-18-2024 Urea nitrogen/Creatinine [Mass ratio] 27.3 mg/mg High 10- [facility] Basic Metabolic Profile (BMP )on 11-18-2024 BUN/CRE 27.3 RATIO High - [facility] Comment on above: Order Comment: Order Date: 11/11/24Order Info: [id number] - BMP Performed By: #### L 500.2500 ####[facility] [address] [place], [address] Calcium [Mass/Vol] 9.3 mg/dL Normal 7.6-11.0 [facility] Comment on above: Order Comment: Order Date: 11/11/24Order Info: [id number] - BMP Performed By: #### L 500.2500 ####[facility] [address] [place], [address] Chloride [Moles/Vol] 99 mmol/L Normal 98-108 [facility] Comment on above: Order Comment: Order Date: 11/11/24Order Info: [id number] - BMP Performed By: #### L 500.2500 ####[facility] [address] [place], [address] CO2 [Moles/Vol] 25.0 mmol/L Normal 21.0-32.0 [facility] Comment on above: Order Comment: Order Date: 11/11/24Order Info: [id number] - BMP Performed By: #### L 500.2500 ####[facility] [address] [place], [address] Creatinine [Mass/Vol] 1.50 mg/dL High 0.70-1.20 [facility] Comment on above: Order Comment: Order Date: 11/11/24Order Info: [id number] - BMP Performed By: #### L 500.2500 ####[facility] [address] [place], [address] GAP 13 Normal 5-15 [facility] Comment on above: Order Comment: Order Date: 11/11/24Order Info: 666-08 - BMP Performed By: #### L 500.2500 ####[facility] [address] [place], [address] GFR/1.73 sq M.predicted among non-blacks MDRD (S/P/Bld) [Vol rate/Area] 46 mL/min/{1.73_m2} Low >60 [facility] Comment on above: Order Comment: Order Date: 11/11/24Order Info: 666-08 - BMP Result Comment: mL/m in/1.73m2 CKD-EPI Creatinine Equation (2020) Performed By: #### L 500.2500 ####[facility] [address] [place], [address] Glucose [Mass/Vol] 105 mg/dL High 70-99 [facility] Comment on above: Order Comment: Order Date: 11/11/24Order Info: 666-08 - BMP Performed By: #### L 500.2500 ####[facility] [address] [place], [address] Potassium [Moles/Vol] 4.4 mmol/L Normal 3.3-5.1 [facility] Comment on above: Order Comment: Order Date: 11/11/24Order Info: 666-08 - BMP Performed By: #### L 500.2500 ####[facility] [address] [place], [address] Sodium [Moles/Vol] 137 mmol/L Normal 133-145 [facility] Comment on above: Order Comment: Order Date: 11/11/24Order Info: 0667-1 - BMP Performed By: #### L 500.2500 ####[facility] [address] [place], [address] Urea nitrogen [Mass/Vol] 41 mg/dL High 4-19 [facility] Comment on above: Order Comment: Order Date: 11/11/24Order Info: 0667-1 - BMP Performed By: #### L 500.2500 ####[facility] [address] [place], [address] Carbon dioxide, total [Moles /volume] in Central venous bloodOrdered By: Karo Sewell on 11-18-2024 CO2 [Moles/Vol] 25.0 mmol/L 21.0-32.0 [facility] Chloride assayOrdered By: Wesley Sewell on 11-18-2024 Chloride [Moles/Vol] 99 mmol/L 98-108 [facility] GFR/1.73 sq M.predicted jorge g non-blacks MDRD (S/P/Bld) [Vol rate/Area]Ordered By: Karo Sewell on 11-18-2024 Estimated GFR (MDRD) Non-Af Amer 46 Low >60 [facility] Comment on above: mL/min/1.73m2 CKD-EP I Creatinine Equation (2020) Glomerular filtration rate ( GFR) estimation/1.73 sq m using serum, plasma, or whole bOrdered By: Karo Sewell on 11-18-2024 GFR/1.73 sq M.predicted among non-blacks MDRD (S/P/Bld) [Vol rate/Area] 46 mL/min/{1.73_m2} Low >60 [facility] Comment on above: mL/min/1.73m2 CKD-EP I Creatinine Equation (2020) L503.7505on 11-18-2024 Natriuretic peptide B (Bld) [Mass/Vol] 6905 pg/mL High <=1800 [facility] Comment on above: Order Comment: Order Date: 11/11/24Order Info: 0667-1 - BMP Result Comment: Hear t Failure Unlikely: < 300 pg/mLHeart Failure Likely< 50 Years: > 450 pg/mL50-75 Years: > 900 pg/mL>75 Years: > 1800 pg/mL Performed By: #### L 503.7505 ####[facility] [address] [place], [address] Natriuretic peptide.B prohor alirio N-Terminal [Mass/Vol]Ordered By: Karo Sewell on 11-18-2024 Natriuretic peptide B (Bld) [Mass/Vol] 6905 pg/mL High <1800 [facility] Comment on above: Heart Failure Unlike ly: < 300 pg/mLHeart Failure Likely< 50 Years: > 450 pg/mL50-75 Years: > 900 pg/mL>75 Years: > 1800 pg/mL Natriuretic peptide.B prohor alirio N-Terminal [Mass/volume] in Serum or PlasmaOrdered By: Karo Sewell on 11-18-2024 Natriuretic peptide.B prohormone N-Terminal [Mass/Vol] 6905 pg/mL High <1800 [facility] Comment on above: Heart Failure Unlike ly: < 300 pg/mLHeart Failure Likely< 50 Years: > 450 pg/mL50-75 Years: > 900 pg/mL>75 Years: > 1800 pg/mL Potassium (Unsp spec) [Mass/ Vol]Ordered By: Karo Sewell on 11-18-2024 Potassium [Moles/Vol] 4.4 mmol/L 3.3-5.1 [facility] Potassium measurement (mass/ volume)Ordered By: Karo Sewell on 11-18-2024 Potassium (Unsp spec) [Mass/Vol] 4.4 mmol/L 3.3-5.1 [facility] Serum creatinine measurement (mass/volume)Ordered By: Karo Sewell on 11-18-2024 Creatinine [Mass/Vol] 1.50 mg/dL High 0.70-1.20 [facility] Serum glucose measurement (m ass/volume)Ordered By: Karo Sewell on 11-18-2024 Glucose [Mass/Vol] 105 mg/dL High 70-99 [facility] Serum or plasma calcium kelli urement (mass/volume)Ordered By: Karo Sewell on 11-18-2024 Calcium [Mass/Vol] 9.3 mg/dL 7.6-11.0 [facility] Serum or plasma urea nitroge n measurement (mass/volume)Ordered By: Karo Sewell on 11-18-2024 Urea nitrogen [Mass/Vol] 41 mg/dL High 4-19 [facility] Sodium levelOrdered By: Karo Sewell on 11-18-2024 Sodium [Moles/Vol] 137 mmol/L 133-145 [facility] Anion gap in Serum or Plasma Ordered By: Kaor Sewell on 11-04-2024 Anion gap [Moles/Vol] 14 mmol/L 5-15 [facility] BUN/creatinine ratioOrdered By: Karo Sewell on 11-04-2024 Urea nitrogen/Creatinine [Mass ratio] 24.2 mg/mg High 10-20 [facility] Basic Metabolic Profile (BMP )on 11-04-2024 BUN/CRE 24.2 RATIO High 10-20 [facility] Comment on above: Order Comment: Order Date: 11/04/24Order Info: 0667-1 - BMP Performed By: #### L 500.2500 ####[facility] [address] [place], [address] Calcium [Mass/Vol] 9.3 mg/dL Normal 7.6-11.0 [facility] Comment on above: Order Comment: Order Date: 11/04/24Order Info: 0667- - BMP Performed By: #### L 500.2500 ####[facility] [address] [place], [address] Chloride [Moles/Vol] 96 mmol/L Low 98-108 [facility] Comment on above: Order Comment: Order Date: 11/04/24Order Info: 0667-1 - BMP Performed By: #### L 500.2500 ####[facility] [address] [place], [address] CO2 [Moles/Vol] 23.4 mmol/L Normal 21.0-32.0 [facility] Comment on above: Order Comment: Order Date: 11/04/24Order Info: 666-08 - BMP Performed By: #### L 500.2500 ####[facility] [address] [place], [phone] Creatinine [Mass/Vol] 1.35 mg/dL High 0.70-1.20 [facility] Comment on above: Order Comment: Order Date: 11/04/24Order Info: 666-08 - BMP Performed By: #### L 500.2500 ####[facility] [address] [place], [address] GAP 14 Normal 5-15 [facility] Comment on above: Order Comment: Order Date: 11/04/24Order Info: 666-08 - BMP Performed By: #### L 500.2500 ####[facility] [address] [place], [address] GFR/1.73 sq M.predicted among non-blacks MDRD (S/P/Bld) [Vol rate/Area] 52 mL/min/{1.73_m2} Low >60 [facility] Comment on above: Order Comment: Order Date: 11/04/24Order Info: 666-08 - BMP Result Comment: mL/m in/1.73m2 CKD-EPI Creatinine Equation (2020) Performed By: #### L 500.2500 ####[facility] [address] [place], [address] Glucose [Mass/Vol] 95 mg/dL Normal 70-99 [facility] Comment on above: Order Comment: Order Date: 11/04/24Order Info: 666-08 - BMP Performed By: #### L 500.2500 ####[facility] [address] [place], [place], [phone] Potassium [Moles/Vol] 4.1 mmol/L Normal 3.3-5.1 [facility] Comment on above: Order Comment: Order Date: 11/04/24Order Info: 666-08 - BMP Performed By: #### L 500.2500 ####[facility] [address] [place], [place], [address] Sodium [Moles/Vol] 134 mmol/L Normal 133-145 [facility] Comment on above: Order Comment: Order Date: 11/04/24Order Info: 666-08 - BMP Performed By: #### L 500.2500 ####[facility] [address] [place], [place], [address] Urea nitrogen [Mass/Vol] 33 mg/dL High 4-19 [facility] Comment on above: Order Comment: Order Date: 11/04/24Order Info: 666-08 - BMP Performed By: #### L 500.2500 ####[facility] [address] [place], [place], [address] Carbon dioxide, total [Moles /volume] in Central venous bloodOrdered By: Karo Sewell on 11-04-2024 CO2 [Moles/Vol] 23.4 mmol/L 21.0-32.0 [facility] Chloride assayOrdered By: Wesley Sewell on 11-04-2024 Chloride [Moles/Vol] 96 mmol/L Low 98-108 [facility] GFR/1.73 sq M.predicted jorge g non-blacks MDRD (S/P/Bld) [Vol rate/Area]Ordered By: Karo Sewell on 11-04-2024 Estimated GFR (MDRD) Non-Af Amer 52 Low >60 [facility] Comment on above: mL/min/1.73m2 CKD-EP I Creatinine Equation (2020) Glomerular filtration rate ( GFR) estimation/1.73 sq m using serum, plasma, or whole bOrdered By: Karo Sewell on 11-04-2024 GFR/1.73 sq M.predicted among non-blacks MDRD (S/P/Bld) [Vol rate/Area] 52 mL/min/{1.73_m2} Low >60 [facility] Comment on above: mL/min/1.73m2 CKD-EP I Creatinine Equation (2020) L503.7505on 11-04-2024 Natriuretic peptide B (Bld) [Mass/Vol] 5346 pg/mL High <=1800 [facility] Comment on above: Order Comment: Order Date: 11/04/24Order Info: 0667-1 - BMP Result Comment: Hear t Failure Unlikely: < 300 pg/mLHeart Failure Likely< 50 Years: > 450 pg/mL50-75 Years: > 900 pg/mL>75 Years: > 1800 pg/mL Performed By: #### L 503.7505 ####[facility] [address] [place], [address] Laboratory - Chemistry and C hemistry - challengeOrdered By: Karo Sewell on 11-04-2024 Natriuretic peptide B (Bld) [Mass/Vol] 5346 pg/mL High <1800 [facility] Comment on above: Heart Failure Unlike ly: < 300 pg/mLHeart Failure Likely< 50 Years: > 450 pg/mL50-75 Years: > 900 pg/mL>75 Years: > 1800 pg/mL Potassium (Unsp spec) [Mass/ Vol]Ordered By: Karo Sewell on 11-04-2024 Potassium [Moles/Vol] 4.1 mmol/L 3.3-5.1 [facility] Potassium measurement (mass/ volume)Ordered By: Karo Sewell on 11-04-2024 Potassium (Unsp spec) [Mass/Vol] 4.1 mmol/L 3.3-5.1 [facility] Serum creatinine measurement (mass/volume)Ordered By: Karo Sewell on 11-04-2024 Creatinine [Mass/Vol] 1.35 mg/dL High 0.70-1.20 [facility] Serum glucose measurement (m ass/volume)Ordered By: Karo Sewell on 11-04-2024 Glucose [Mass/Vol] 95 mg/dL 70-99 [facility] Serum or plasma calcium kelli urement (mass/volume)Ordered By: Karo Sewell on 11-04-2024 Calcium [Mass/Vol] 9.3 mg/dL 7.6-11.0 [facility] Serum or plasma urea nitroge n measurement (mass/volume)Ordered By: Karo Sewell on 11-04-2024 Urea nitrogen [Mass/Vol] 33 mg/dL High - [facility] Sodium levelOrdered By: Karo Sewell on 11-04-2024 Sodium [Moles/Vol] 134 mmol/L 133-145 [facility] Absolute neutrophil countOrd ered By: Andrzej Marinelli on 08-09-2024 Neutrophils (Bld) [#/Vol] 4.7 10*3/uL 2.0-7.7 [facility] Albumin to globulin ratioOrd ered By: Andrzej Marinelli on 08-09-2024 Albumin/Globulin [Mass ratio] 0.9 {ratio} 0.9-2.4 [facility] BNP (brain natriuretic pepti de measurement)Ordered By: Andrzej Marinelli on 08-09-2024 Natriuretic peptide B (Bld) [Mass/Vol] 786.9 pg/mL High 0-100 [facility] BNP,B-Type NATRIURETIC PEPTI [place] 08-09-2024 Natriuretic peptide B (Bld) [Mass/Vol] 786.9 pg/mL High 0-100 [facility] Comment on above: Performed By: #### L 100.0100, L501.5200, L501.9520, L501.9985, L500.4050, L500.4100, L503.6620, L506.0400 ####[facility] [address] [place], [address] Basophil percentageOrdered B y: Andrzej Marinelli on 08-09-2024 Basophils/100 WBC (Bld) 0.4 % 0-1 [facility] Bilirubin, totalOrdered By: Andrzej Marinelli on 08-09-2024 Bilirubin [Mass/Vol] 0.80 mg/dL 0.20-1.00 [facility] Comment on above: For patients on eltr ombopag therapy, use of Dimension Bourg TBIL is not recommended. Blood urea nitrogen (BUN)/cr eatinine ratioOrdered By: Andrzej Marinelli on 08-09-2024 Urea nitrogen/Creatinine [Mass ratio] 24.4 mg/mg High 10-20 [facility] CBC W/Diff, Automatedon 12-2 Absolute Lymph 2.09 X10 3/uL Normal 0.83-4.51 [facility] Comment on above: Performed By: #### L 100.0100, L501.5200, L501.9520, L501.9985, L500.4050, L500.4100, L503.6620, L506.0400 ####[facility] [address] [place], [address] Absolute Neut 4.7 X10 3/uL Normal 2.0-7.7 [facility] Comment on above: Performed By: #### L 100.0100, L501.5200, L501.9520, L501.9985, L500.4050, L500.4100, L503.6620, L506.0400 ####[facility] [address] [place], [address] Basophils/100 WBC (Bld) 0.4 % Normal 0-1 [facility] Comment on above: Performed By: #### L 100.0100, L501.5200, L501.9520, L501.9985, L500.4050, L500.4100, L503.6620, L506.0400 ####[facility] [address] [place], [address] Eosinophils/100 WBC (Bld) 2.5 % Normal 0-5 [facility] Comment on above: Performed By: #### L 100.0100, L501.5200, L501.9520, L501.9985, L500.4050, L500.4100, L503.6620, L506.0400 ####[facility] [address] [place], [address] Erythrocyte distribution width (RBC) [Ratio] 14.6 % Normal 11.6-14.6 [facility] Comment on above: Performed By: #### L 100.0100, L501.5200, L501.9520, L501.9985, L500.4050, L500.4100, L503.6620, L506.0400 ####[facility] [address] [place], [address] Hematocrit (Bld) [Volume fraction] 36.5 % Low 40-54 [facility] Comment on above: Performed By: #### L 100.0100, L501.5200, L501.9520, L501.9985, L500.4050, L500.4100, L503.6620, L506.0400 ####[facility] [address] [place], [address] Hemoglobin (Bld) [Mass/Vol] 11.8 g/dL Low 13.0-16.5 [facility] Comment on above: Performed By: #### L 100.0100, L501.5200, L501.9520, L501.9985, L500.4050, L500.4100, L503.6620, L506.0400 ####[facility] [address] [place], [address] IG% 0.300 Normal 0.0-0.9 [facility] Comment on above: Result Comment: IG% - Immature Granulocytes (promyelocytes, myelocytes andmetamyelocytes) > 1% indicates that a LEFT SHIFT is Present. Performed By: #### L 100.0100, L501.5200, L501.9520, L501.9985, L500.4050, L500.4100, L503.6620, L506.0400 ####[facility] [address] [place], [address] Lymphocytes/100 WBC (Bld) 27.5 % Normal 19-41 [facility] Comment on above: Performed By: #### L 100.0100, L501.5200, L501.9520, L501.9985, L500.4050, L500.4100, L503.6620, L506.0400 ####[facility] [address] [place], [address] MCH (RBC) [Entitic mass] 28.9 pg Normal 27.0-32.0 [facility] Comment on above: Performed By: #### L 100.0100, L501.5200, L501.9520, L501.9985, L500.4050, L500.4100, L503.6620, L506.0400 ####[facility] [address] [place], [address] MCHC (RBC) [Mass/Vol] 32.3 g/dL Normal 32-36 [facility] Comment on above: Performed By: #### L 100.0100, L501.5200, L501.9520, L501.9985, L500.4050, L500.4100, L503.6620, L506.0400 ####[facility] [address] [place], [address] MCV (RBC) [Entitic vol] 89.5 fL Normal 80-94 [facility] Comment on above: Performed By: #### L 100.0100, L501.5200, L501.9520, L501.9985, L500.4050, L500.4100, L503.6620, L506.0400 ####[facility] [address] [place], [address] Monocytes/100 WBC (Bld) 7.9 % Normal 0-10 [facility] Comment on above: Performed By: #### L 100.0100, L501.5200, L501.9520, L501.9985, L500.4050, L500.4100, L503.6620, L506.0400 ####[facility] [address] [place], [address] Neutrophils/100 WBC (Bld) 61.4 % Normal 47-70 [facility] Comment on above: Performed By: #### L 100.0100, L501.5200, L501.9520, L501.9985, L500.4050, L500.4100, L503.6620, L506.0400 ####[facility] [address] [place], [address] Nucleated RBC (Bld) [#/Vol] 0 10*3/uL Normal 0-5 [facility] Comment on above: Performed By: #### L 100.0100, L501.5200, L501.9520, L501.9985, L500.4050, L500.4100, L503.6620, L506.0400 ####[facility] [address] [place], [address] Platelet mean volume (Bld) [Entitic vol] 10.5 fL Normal 6.2-12.0 [facility] Comment on above: Performed By: #### L 100.0100, L501.5200, L501.9520, L501.9985, L500.4050, L500.4100, L503.6620, L506.0400 ####[facility] [address] [place], [address] Platelets (Bld) [#/Vol] 142 10*3/uL Low 150-450 [facility] Comment on above: Performed By: #### L 100.0100, L501.5200, L501.9520, L501.9985, L500.4050, L500.4100, L503.6620, L506.0400 ####[facility] [address] [place], [address] RBC (Bld) [#/Vol] 4.08 10*6/uL Low 4.6-6.2 [facility] Comment on above: Performed By: #### L 100.0100, L501.5200, L501.9520, L501.9985, L500.4050, L500.4100, L503.6620, L506.0400 ####[facility] [address] [place], [place], [id number] RDW SD 47.4 fl High 35.1-43.9 [facility] Comment on above: Performed By: #### L 100.0100, L501.5200, L501.9520, L501.9985, L500.4050, L500.4100, L503.6620, L506.0400 ####[facility] [address] [place], [place], [id number] WBC (Bld) [#/Vol] 7.6 10*3/uL Normal 4.4-11.0 [facility] Comment on above: Performed By: #### L 100.0100, L501.5200, L501.9520, L501.9985, L500.4050, L500.4100, L503.6620, L506.0400 ####[facility] [address] [place], [place], [id number] Carbon dioxide measurementOr dered By: Andrzej Marinelli on 08-09-2024 CO2 [Moles/Vol] 25.0 mmol/L 21.0-32.0 [facility] Cardiology Visit Reporton Cardiology Visit Report Normal [facility] Chloride measurementOrdered By: Andrzej Marinelli on 08-09-2024 Chloride [Moles/Vol] 104 mmol/L 98-107 [facility] Comprehensive Metabolic Prof ilon 08-09-2024 Albumin [Mass/Vol] 3.4 g/dL Normal 3.2-5.0 [facility] Comment on above: Performed By: #### L 100.0100, L501.5200, L501.9520, L501.9985, L500.4050, L500.4100, L503.6620, L506.0400 ####[facility] [address] [place], [address] Albumin/Globulin [Mass ratio] 0.9 {ratio} Normal 0.9-2.4 [facility] Comment on above: Performed By: #### L 100.0100, L501.5200, L501.9520, L501.9985, L500.4050, L500.4100, L503.6620, L506.0400 ####[facility] [address] [place], [address] ALK P 93 U/L Normal 45-117 [facility] Comment on above: Performed By: #### L 100.0100, L501.5200, L501.9520, L501.9985, L500.4050, L500.4100, L503.6620, L506.0400 ####[facility] [address] [place], [address] ALT [Catalytic activity/Vol] 33 U/L Normal 16-61 [facility] Comment on above: Performed By: #### L 100.0100, L501.5200, L501.9520, L501.9985, L500.4050, L500.4100, L503.6620, L506.0400 ####[facility] [address] [place], [place], [phone] AST [Catalytic activity/Vol] 19 U/L Normal 15-37 [facility] Comment on above: Performed By: #### L 100.0100, L501.5200, L501.9520, L501.9985, L500.4050, L500.4100, L503.6620, L506.0400 ####[facility] [address] [place], [address] Bilirubin [Mass/Vol] 0.80 mg/dL Normal 0.20-1.00 [facility] Comment on above: Result Comment: For patients on eltrombopag therapy, use of Dimension Bourg TBIL is not recommended. Performed By: #### L 100.0100, L501.5200, L501.9520, L501.9985, L500.4050, L500.4100, L503.6620, L506.0400 ####[facility] [address] [place], [address] BUN/CRE 24.4 RATIO High 10-20 [facility] Comment on above: Performed By: #### L 100.0100, L501.5200, L501.9520, L501.9985, L500.4050, L500.4100, L503.6620, L506.0400 ####[facility] [address] [place], [address] CA,Total 8.7 mg/dL Normal 8.5-10.1 [facility] Comment on above: Performed By: #### L 100.0100, L501.5200, L501.9520, L501.9985, L500.4050, L500.4100, L503.6620, L506.0400 ####[facility] [address] [place], [address] Chloride [Moles/Vol] 104 mmol/L Normal 98-107 [facility] Comment on above: Performed By: #### L 100.0100, L501.5200, L501.9520, L501.9985, L500.4050, L500.4100, L503.6620, L506.0400 ####[facility] [address] [place], [address] CO2 [Moles/Vol] 25.0 mmol/L Normal 21.0-32.0 [facility] Comment on above: Performed By: #### L 100.0100, L501.5200, L501.9520, L501.9985, L500.4050, L500.4100, L503.6620, L506.0400 ####[facility] [address] [place], [place], [address] Creatinine [Mass/Vol] 1.31 mg/dL High 0.70-1.30 [facility] Comment on above: Result Comment: The validity of the calculated GFR GFRAA in patients over70 years has not been determined. Clinical correlation isessential. Performed By: #### L 100.0100, L501.5200, L501.9520, L501.9985, L500.4050, L500.4100, L503.6620, L506.0400 ####[facility] [address] [place], [place], [id number] EST GFR - AA 67 mL/min Normal >60 [facility] Comment on above: Result Comment: Afri can Danish GFR Calc Performed By: #### L 100.0100, L501.5200, L501.9520, L501.9985, L500.4050, L500.4100, L503.6620, L506.0400 ####[facility] [address] [place], [place], [id number] GAP 7 Normal 5-15 [facility] Comment on above: Performed By: #### L 100.0100, L501.5200, L501.9520, L501.9985, L500.4050, L500.4100, L503.6620, L506.0400 ####[facility] [address] [place], [place], [id number] GFR/1.73 sq M.predicted among non-blacks MDRD (S/P/Bld) [Vol rate/Area] 55 mL/min/{1.73_m2} Low >60 [facility] Comment on above: Result Comment: Non- GFR Calc Performed By: #### L 100.0100, L501.5200, L501.9520, L501.9985, L500.4050, L500.4100, L503.6620, L506.0400 ####[facility] [address] [place], [address] Globulin (S) [Mass/Vol] 3.7 g/dL Normal 2.2-4.2 [facility] Comment on above: Performed By: #### L 100.0100, L501.5200, L501.9520, L501.9985, L500.4050, L500.4100, L503.6620, L506.0400 ####[facility] [address] [place], [address] Glucose [Mass/Vol] 98 mg/dL Normal 74-106 [facility] Comment on above: Performed By: #### L 100.0100, L501.5200, L501.9520, L501.9985, L500.4050, L500.4100, L503.6620, L506.0400 ####[facility] [address] [place], [address] Potassium [Moles/Vol] 4.2 mmol/L Normal 3.5-5.1 [facility] Comment on above: Performed By: #### L 100.0100, L501.5200, L501.9520, L501.9985, L500.4050, L500.4100, L503.6620, L506.0400 ####[facility] [address] [place], [address] Sodium [Moles/Vol] 136 mmol/L Normal 136-145 [facility] Comment on above: Performed By: #### L 100.0100, L501.5200, L501.9520, L501.9985, L500.4050, L500.4100, L503.6620, L506.0400 ####[facility] [address] [place], [address] T PROT 7.1 g/dL Normal 6.4-8.2 [facility] Comment on above: Performed By: #### L 100.0100, L501.5200, L501.9520, L501.9985, L500.4050, L500.4100, L503.6620, L506.0400 ####[facility] [address] [place], [place], [address] Urea nitrogen [Mass/Vol] 32 mg/dL High 7-18 [facility] Comment on above: Performed By: #### L 100.0100, L501.5200, L501.9520, L501.9985, L500.4050, L500.4100, L503.6620, L506.0400 ####[facility] [address] [facility] [place], [place], [id number] Direct serum free thyroxine (FT4) measurementOrdered By: Andrzej Marinelli on 08-09-2024 Free T4 [Mass/Vol] 1.04 ng/dL 0.76-1.46 [facility] Eosinophil percentageOrdered By: Andrzej Marinelli on 08-09-2024 Eosinophils/100 WBC (Bld) 2.5 % 0-5 [facility] Erythrocyte distribution wid th ratioOrdered By: Andrzej Marinelli on 08-09-2024 Erythrocyte distribution width (RBC) [Ratio] 14.6 % 11.6-14.6 [facility] Erythrocyte distribution wid th standard deviationOrdered By: Andrzej Marinelli on 08-09-2024 Erythrocyte distribution width (RBC) [Entitic vol] 47.4 fL High 35.1-43.9 [facility] Estimated glomerular filtrat ion rate (GFR) AmericanOrdered By: Andrzej Marinelli on 08-09-2024 Estimated GFR (MDRD) Amer 67 mL/min >60 [facility] Comment on above: GFR Calc Glomerular filtration rate ( GFR) estimationOrdered By: Andrzej Marinelli on 08-09-2024 Estimated GFR (MDRD) Non-Af Amer 55 mL/min Low >60 [facility] Comment on above: Non- GFR Calc Glucose measurementOrdered B y: Andrzej Marinelli on 08-09-2024 Glucose [Mass/Vol] 98 mg/dL 74-106 [facility] Hematocrit Auto (Bld) [Volum e fraction]Ordered By: Andrzej Marinelli on 08-09-2024 Hematocrit (Bld) [Volume fraction] 36.5 % Low 40-54 [facility] Hemoglobin A1con 08-09-2024 HbA1c (Bld) [Mass fraction] 5.7 % High 3.8-5.6 [facility] Comment on above: Result Comment: Norm al < 5.7 % Prediabetic 5.7 - 6.4 % Diabetic >or= 6.5 % Please note range changes. Performed By: #### L 100.0100, L501.5200, L501.9520, L501.9985, L500.4050, L500.4100, L503.6620, L506.0400 ####[facility] [address] [place], [address] Hemoglobin A1c percentageOrd ered By: Andrzej Marinelli on 08-09-2024 HbA1c (Bld) [Mass fraction] 5.7 % High 3.8-5.6 [facility] Comment on above: Normal < 5.7 % Predi abetic 5.7 - 6.4 % Diabetic >or= 6.5 % Please note range changes. Hemoglobin measurementOrdere d By: Andrzej Marinelli on 08-09-2024 Hemoglobin (Bld) [Mass/Vol] 11.8 g/dL Low 13.0-16.5 [facility] High density lipoprotein (HD L) measurementOrdered By: Andrzej Marinelli on 08-09-2024 Cholesterol in HDL [Mass/Vol] 68 mg/dL >40 [facility] Comment on above: The drugs N-Acetylcy steine and Metamizole may falsely depress this assay. Reference Range HDL <40 mg/dL Low HDL Cholesterol HDL >or= 60 mg/dL High HDL Cholesterol Immature granulocytes/100 WB C Auto (Bld)Ordered By: Andrzej Marinelli on 08-09-2024 Immature granulocytes/100 WBC (Bld) 0.300 % 0.0-0.9 [facility] Comment on above: IG% - Immature Granu locytes (promyelocytes, myelocytes and metamyelocytes) > 1% indicates that a LEFT SHIFT is Present. Laboratory - Chemistry and C hemistry - challengeOrdered By: Andrzej Marinelli on 08-09-2024 AST [Catalytic activity/Vol] 19 U/L 15-37 [facility] Lipid Profileon 08-09-2024 Cholesterol [Mass/Vol] 279 mg/dL High 200 [facility] Comment on above: Result Comment: <200 mg/dL Desirable 200-240 mg/dL Borderline >240 mg/dL High Risk Performed By: #### L 100.0100, L501.5200, L501.9520, L501.9985, L500.4050, L500.4100, L503.6620, L506.0400 ####[facility] [address] [place], [address] Cholesterol in HDL [Mass/Vol] 68 mg/dL Normal [facility] Comment on above: Result Comment: The drugs N-Acetylcysteine and Metamizole may falselydepress this assay. Reference Range HDL <40 mg/dL Low HDL Cholesterol HDL >or= 60 mg/dL High HDL Cholesterol Performed By: #### L 100.0100, L501.5200, L501.9520, L501.9985, L500.4050, L500.4100, L503.6620, L506.0400 ####[facility] [address] [place], [address] Cholesterol in LDL [Mass/Vol] 194 mg/dL High 0-130 [facility] Comment on above: Performed By: #### L 100.0100, L501.5200, L501.9520, L501.9985, L500.4050, L500.4100, L503.6620, L506.0400 ####[facility] [address] [place], [address] Cholesterol in VLDL [Mass/Vol] 17 mg/dL Normal 5-40 [facility] Comment on above: Performed By: #### L 100.0100, L501.5200, L501.9520, L501.9985, L500.4050, L500.4100, L503.6620, L506.0400 ####[facility] [address] [place], [place], [id number] Triglyceride [Mass/Vol] 84 mg/dL Normal [facility] Comment on above: Result Comment: The drugs N-Acetylcysteine and Metamizole may falselydepress this assay.Serum Triglycerides Reference Interval Normal <150 mg/dL Borderline high 150 - 199 mg/dL High 200 - 499 mg/dL Very High > or = 500 mg/dL Performed By: #### L 100.0100, L501.5200, L501.9520, L501.9985, L500.4050, L500.4100, L503.6620, L506.0400 ####[facility] [address] [place], [place], [phone] Low density lipoprotein (LDL ) cholesterol measurementOrdered By: Andrzej Marinelli on 08-09-2024 Cholesterol in LDL [Mass/Vol] 194 mg/dL High 0-130 [facility] Lymphocytes Auto (Unsp spec) [#/Vol]Ordered By: Andrzej Marinelli on 08-09-2024 Lymphocytes (Bld) [#/Vol] 2.09 10*3/uL 0.83-4.51 [facility] Lymphocytes/100 WBC Auto (Un sp spec)Ordered By: Andrzej Marinelli on 08-09-2024 Lymphocytes/100 WBC (Bld) 27.5 % 19-41 [facility] MCV (mean corpuscular volume ) determinationOrdered By: Andrzej Marinelli on 08-09-2024 MCV (RBC) [Entitic vol] 89.5 fL 80-94 [facility] Magnesiumon 08-09-2024 Magnesium [Mass/Vol] 2.3 mg/dL Normal 1.6-2.6 [facility] Comment on above: Performed By: #### L 100.0100, L501.5200, L501.9520, L501.9985, L500.4050, L500.4100, L503.6620, L506.0400 ####[facility] [address] [place], [address] Magnesium measurementOrdered By: Andrzej Marinelli on 08-09-2024 Magnesium [Mass/Vol] 2.3 mg/dL 1.6-2.6 [facility] Mean corpuscular hemoglobin (MCH) determinationOrdered By: Andrzej Marinelli on 08-09-2024 MCH (RBC) [Entitic mass] 28.9 pg 27.0-32.0 [facility] Mean corpuscular hemoglobin concentration (MCHC) determinationOrdered By: Andrzej Marinelli on 08-09-2024 MCHC (RBC) [Mass/Vol] 32.3 g/dL 32-36 [facility] Mean platelet volume determi nationOrdered By: Andrzej Marinelli on 08-09-2024 Platelet mean volume (Bld) [Entitic vol] 10.5 fL 6.2-12.0 [facility] Monocyte percentageOrdered B y: Andrzej Marinelli on 08-09-2024 Monocytes/100 WBC (Bld) 7.9 % 0-10 [facility] Neutrophil percentageOrdered By: Andrzej Marinelli on 08-09-2024 Neutrophils/100 WBC (Bld) 61.4 % 47-70 [facility] Nucleated red blood cell per centageOrdered By: Andrzej Marinelli on 08-09-2024 Nucleated RBC/100 WBC (Bld) [Ratio] 0 % 0-5 [facility] Platelet countOrdered By: Claire Marinelli on 08-09-2024 Platelets (Bld) [#/Vol] 142 10*3/uL Low 150-450 [facility] Potassium measurementOrdered By: Andrzej Marinelli on 08-09-2024 Potassium [Moles/Vol] 4.2 mmol/L 3.5-5.1 [facility] RBC Auto (Bld) [#/Vol]Ordere d By: Anrdzej Marinelli on 08-09-2024 RBC (Bld) [#/Vol] 4.08 10*6/uL Low 4.6-6.2 [facility] Serum anion gap measurementO rdered By: Andrzej Marinelli on 08-09-2024 Anion gap [Moles/Vol] 7 mmol/L 5-15 [facility] Serum globulin measurementOr dered By: Andrzej Marinelli on 08-09-2024 Globulin (S) [Mass/Vol] 3.7 g/dL 2.2-4.2 [facility] Serum or plasma alanine holm otransferase (ALT) measurementOrdered By: Andrzej Marinelli on 08-09-2024 ALT [Catalytic activity/Vol] 33 U/L 16-61 [facility] Serum or plasma albumin kelli urement (mass/volume)Ordered By: Andrzej Marinelli on 08-09-2024 Albumin [Mass/Vol] 3.4 g/dL 3.2-5.0 [facility] Serum or plasma alkaline karen sphatase measurementOrdered By: Andrzej Marinelli on 08-09-2024 ALP [Catalytic activity/Vol] 93 U/L 45-117 [facility] Serum or plasma calcium kelli urement (mass/volume)Ordered By: Andrzej Marinelli on 08-09-2024 Calcium [Mass/Vol] 8.7 mg/dL 8.5-10.1 [facility] Serum or plasma cholesterol measurement (mass/volume)Ordered By: Andrzej Marinelli on 08-09-2024 Cholesterol [Mass/Vol] 279 mg/dL High <200 [facility] Comment on above: <200 mg/dL Desirable 200-240 mg/dL Borderline >240 mg/dL High Risk Serum or plasma creatinine m easurement (mass/volume)Ordered By: Andrzej Marinelli on 08-09-2024 Creatinine [Mass/Vol] 1.31 mg/dL High 0.70-1.30 [facility] Comment on above: The validity of the calculated GFR & GFRAA in patients over 70 years has not been determined. Clinical correlation is essential. Serum or plasma urea nitroge n measurement (mass/volume)Ordered By: Andrzej Marinelli on 08-09-2024 Urea nitrogen [Mass/Vol] 32 mg/dL High 7-18 [facility] Sodium levelOrdered By: Andrzej Marinelli on 08-09-2024 Sodium [Moles/Vol] 136 mmol/L 136-145 [facility] T4 Free Directon 08-09-2024 T4 FREE DIRECT 1.04 ng/dL Normal 0.76-1.46 [facility] Comment on above: Performed By: #### L 100.0100, L501.5200, L501.9520, L501.9985, L500.4050, L500.4100, L503.6620, L506.0400 ####[facility] [address] [place], [place], [id number] TSH QnOrdered By: Andrzej Marinelli on 08-09-2024 Thyroid Stimulating Hormone (TSH) 2.000 uIU/mL 0.358-3.74 0 [facility] Thyroid Stim Hormone (TSH)on 08-09-2024 TSH 2.000 uIU/mL Normal 0.358-3.74 0 [facility] Comment on above: Performed By: #### L 100.0100, L501.5200, L501.9520, L501.9985, L500.4050, L500.4100, L503.6620, L506.0400 ####[facility] [address] [place], [place], [id number] Total proteinOrdered By: Martin Marinelli on 08-09-2024 Protein [Mass/Vol] 7.1 g/dL 6.4-8.2 [facility] Triglycerides measurementOrd ered By: Andrzej Marinelli on 08-09-2024 Triglyceride [Mass/Vol] 84 mg/dL <199 [facility] Comment on above: The drugs N-Acetylcy steine and Metamizole may falsely depress this assay.Serum Triglycerides Reference Interval Normal <150 mg/dL Borderline high 150 - 199 mg/dL High 200 - 499 mg/dL Very High > or = 500 mg/dL Very low density lipoprotein (VLDL) cholesterol measurementOrdered By: Andrzej Marinelli on 08-09-2024 VLDL Cholesterol 17 mg/dL 5-40 [facility] White blood cell (WBC) count Ordered By: Andrzej Marinelli on 08-09-2024 WBC (Bld) [#/Vol] 7.6 10*3/uL 4.4-11.0 [facility] Basophil percentageon 2021 Bilirubin [Mass/Vol] 0.80 mg/dL 0.20-1.00 [facility] Work Phone: Comment on above: For patients on eltr ombopag therapy, use of Dimension Bourg TBIL is not recommended. Cholesterol [Mass/Vol] 279 mg/dL <200 [facility] Work Phone: Comment on above: <200 mg/dL Desirable 200-240 mg/dL Borderline >240 mg/dL High Risk Protein [Mass/Vol] 7.3 g/dL 6.4-8.2 [facility] Work Phone: Triglyceride [Mass/Vol] 82 mg/dL <199 [facility] Work Phone: Comment on above: The drugs N-Acetylcy steine and Metamizole may falsely depress this assay.Serum Triglycerides Reference Interval Normal <150 mg/dL Borderline high 150 - 199 mg/dL High 200 - 499 mg/dL Very High > or = 500 mg/dL Direct bilirubinon Bilirubin.direct [Mass/Vol] 0.19 mg/dL 0.00-0.30 [facility] Work Phone: [phone] Laboratory - Chemistry and C hemistry - challengeon 02-01-2022 ALP [Catalytic activity/Vol] 95 U/L 45-117 [facility] Work Phone: [phone] ALT [Catalytic activity/Vol] 27 U/L 16-61 [facility] Work Phone: [phone] Globulin (S) [Mass/Vol] 3.7 g/dL 2.2-4.2 [facility] Work Phone: [phone] Serum or plasma albumin kelli urement (mass/volume)on 02-01-2022 Albumin [Mass/Vol] 3.6 g/dL 3.2-5.0 [facility] Work Phone: [phone] Serum or plasma cholesterol in HDL measurement (mass/volume)on 02-01-2022 Cholesterol in HDL [Mass/Vol] 62 mg/dL >40 [facility] Work Phone: [phone] Comment on above: The drugs N-Acetylcy steine and Metamizole may falsely depress this assay. Reference Range HDL <40 mg/dL Low HDL Cholesterol HDL >or= 60 mg/dL High HDL Cholesterol Serum or plasma cholesterol in VLDL measurement (mass/volume)on 02-01-2022 Cholesterol in VLDL [Mass/Vol] 16 mg/dL 5-40 [facility] Work Phone: [phone] Serum or plasma low density lipoprotein (LDL) cholesterol measurement (mass/volume)on 02-01-2022 Cholesterol in LDL [Mass/Vol] 201 mg/dL 0-130 [facility] Work Phone: Thin prep Papanicolaou smear with manual screeningon 02-01-2022 Thin prep Papanicolaou smear with manual screening 21 U/L 15-37 [facility] Work Phone: Absolute lymphocyte counton 01-27-2022 Lymphocytes Auto (Unsp spec) [#/Vol] 2.48 10*3/uL 0.83-4.51 [facility] Work Phone: Basophil percentageon 2021 Basophils/100 WBC (Bld) 0.3 % 0-1 [facility] Work Phone: Bilirubin [Mass/Vol] 0.70 mg/dL 0.20-1.00 [facility] Work Phone: Comment on above: For patients on eltr ombopag therapy, use of Dimension Bourg TBIL is not recommended. Chloride [Moles/Vol] 105 mmol/L 98-107 [facility] Work Phone: Eosinophils/100 WBC (Bld) 1.5 % 0-5 [facility] Work Phone: Glucose [Mass/Vol] 105 mg/dL 74-106 [facility] Work Phone: Comment on above: Fasting Glucose resu lt from 100 to 125 mg/dL suggests IMPAIRED HOMEOSTASIS per A.D.A. criteria. Neutrophils (Bld) [#/Vol] 3.5 10*3/uL 2.0-7.7 [facility] Work Phone: Neutrophils/100 WBC (Bld) 51.8 % 47-70 [facility] Work Phone: Potassium [Moles/Vol] 4.0 mmol/L 3.5-5.1 [facility] Work Phone: Protein [Mass/Vol] 7.2 g/dL 6.4-8.2 [facility] Work Phone: Sodium [Moles/Vol] 137 mmol/L 136-145 [facility] Work Phone: WBC (Bld) [#/Vol] 6.7 10*3/uL 4.4-11.0 [facility] Work Phone: Blood erythrocytes count (nu mber/volume)on 01-27-2022 RBC (Bld) [#/Vol] 4.62 10*6/uL 4.6-6.2 [facility] Work Phone: Blood hemoglobin measurement (mass/volume)on 01-27-2022 Hemoglobin (Bld) [Mass/Vol] 14.0 g/dL 13.0-16.5 [facility] Work Phone: Blood lymphocytes/100 leukoc yteson 01-27-2022 Lymphocytes/100 WBC (Bld) 37.2 % 19-41 [facility] Work Phone: Blood monocytes/100 leukocyt eson 01-27-2022 Monocytes/100 WBC (Bld) 8.9 % 0-10 [facility] Work Phone: Blood platelet mean volumeon 01-27-2022 Platelet mean volume (Bld) [Entitic vol] 10.3 fL 6.2-12.0 [facility] Work Phone: Determination of erythrocyte mean corpuscular volume (MCV)on 01-27-2022 MCV (RBC) [Entitic vol] 89.6 fL 80-94 [facility] Work Phone: Hematocrit Auto (Bld) [Volum e fraction]on 01-27-2022 Hematocrit (Bld) [Volume fraction] 41.4 % 40-54 [facility] Work Phone: Laboratory - Chemistry and C hemistry - challengeon 01-27-2022 ALP [Catalytic activity/Vol] 93 U/L 45-117 [facility] Work Phone: ALT [Catalytic activity/Vol] 24 U/L 16-61 [facility] Work Phone: CO2 [Moles/Vol] 26.0 mmol/L 21.0-32.0 [facility] Work Phone: [phone] Globulin (S) [Mass/Vol] 3.7 g/dL 2.2-4.2 [facility] Work Phone: [phone] Natriuretic peptide B (Bld) [Mass/Vol] 953.6 pg/mL 0-100 [facility] Work Phone: [phone] Urea nitrogen/Creatinine [Mass ratio] 22.0 mg/mg 10-20 [facility] Work Phone: [phone] Laboratory - Hematology and Cell countson 01-27-2022 Erythrocyte distribution width (RBC) [Entitic vol] 44.0 fL 35.1-43.9 [facility] Work Phone: [phone] Erythrocyte distribution width (RBC) [Ratio] 13.4 % 11.6-14.6 [facility] Work Phone: [phone] Immature granulocytes/100 WBC (Bld) 0.300 % 0.0-0.9 [facility] Work Phone: [phone] Comment on above: IG% - Immature Granu locytes (promyelocytes, myelocytes and metamyelocytes) > 1% indicates that a LEFT SHIFT is Present. MCH (RBC) [Entitic mass] 30.3 pg 27.0-32.0 [facility] Work Phone: [phone] Nucleated RBC/100 WBC (Bld) [Ratio] 0 % 0-5 [facility] Work Phone: [phone] MCHC Auto (RBC) [Mass/Vol]on 01-27-2022 MCHC (RBC) [Mass/Vol] 33.8 g/dL 32-36 [facility] Work Phone: [phone] No Panel Informationon 01-27 Estimated Creatinine Clearance Calc 42.71 ml/min [facility] Work Phone: [phone] Estimated GFR (MDRD) Amer 76 mL/min >60 [facility] Work Phone: [phone] Comment on above: GFR Calc Estimated GFR (MDRD) Non-Af Amer 63 mL/min >60 [facility] Work Phone: Comment on above: Non- GFR Calc Troponin I High Sensitivity 21 pg/mL 3.0-78.0 [facility] Work Phone: Comment on above: Please Note: New Pat t Units and Gender Specific Reference Ranges. For more information see Policy Stat Procedure Bourg High Sensitivity Troponin (TNIH) and attachments. Platelets bldon 01-27-2022 Platelets (Bld) [#/Vol] 165 10*3/uL 150-450 [facility] Work Phone: Serum or plasma albumin kelli urement (mass/volume)on 01-27-2022 Albumin [Mass/Vol] 3.5 g/dL 3.2-5.0 [facility] Work Phone: [phone] Serum or plasma albumin/glob ulin mass ratioon 01-27-2022 Albumin/Globulin [Mass ratio] 0.9 {ratio} 0.9-2.4 [facility] Work Phone: Serum or plasma calcium kelli urement (mass/volume)on 01-27-2022 Calcium [Mass/Vol] 8.9 mg/dL 8.5-10.1 [facility] Work Phone: Serum or plasma creatinine m easurement (mass/volume)on 01-27-2022 Creatinine [Mass/Vol] 1.18 mg/dL 0.70-1.30 [facility] Work Phone: Comment on above: The validity of the calculated GFR & GFRAA in patients over 70 years has not been determined. Clinical correlation is essential. Serum or plasma urea nitroge n measurement (mass/volume)on 01-27-2022 Urea nitrogen [Mass/Vol] 26 mg/dL 7-18 [facility] Work Phone: [phone] Thin prep Papanicolaou smear with manual screeningon 01-27-2022 Thin prep Papanicolaou smear with manual screening 17 U/L 15-37 [facility] Work Phone: Thin prep Papanicolaou smear with manual screening 6 5-15 [facility] Work Phone: PSA, TOTALon 09-17-2020 PSA, TOTAL [...] By: #### 5 363 #### [facility] [address], [address] [place] [address] Pantograph Engraver: Catrachito Huerta MD ESRon 09-16-2020 ESR (Bld) [Velocity] 20 mm/h Normal 0-20 [facility] Comment on above: Performed By: #### E SR #### [place] [address] JEWEL LATHE OPERATOR REPORTon 03-06-20 JEWEL LATHE OPERATOR REPORT [facility] CONSULTATION REPORT NAME ACCOUNT SEX AGE ADMIT DISCHARGE PT MED. NUMBER DATE DATE TYPE RECORD# TIAN [id number] M [id number] 02/25/19 1 FLORIN Courtney [address] ROOM: [facility] DATE OF : 1940 DICTATING PHYSICIAN: Marielle [...] he had 3 stents placed at the [facility] in conjunction with aortic valve replacement transarterial. MEDICATIONS: The patient is currently on aspirin 81 mg daily, clopidogrel 75 mg daily, furosemide 40 mg daily, metoprolol 25 mg daily. ALLERGIES: He has no known drug allergies. FAMILY HISTORY: Positive for atherosclerotic vascular disease. SOCIAL HISTORY: The patient is retired. 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 He worked in [employer] places, and now he is part-time working [...] Marielle Pardo MD 02/25/19 15:07 JOB #: [id number] Transcribed By: am 02/25/19 15:30 Electronically signed by: E-Sign: MARIELLE PARDO MD 03/06/19 09:05 Page 2 of 2 FLORIN VARGAS Consultation Normal [facility] with eGFRon 02-26-2019 Age - Reported 79 years Normal [facility] Comment on above: Performed By: #### 2 33895 #### [facility],[address] [place] [address] 58609 Anion gap [Moles/Vol] 10 mmol/L Normal 10 - 20 [facility] Comment on above: Performed By: #### 2 71710 #### [facility],[address] [place] [address] 73937 Calcium [Mass/Vol] 8.4 mg/dL Low 8.6 - 10.2 [facility] Comment on above: Performed By: #### 2 64740 #### [facility],[address] [place] [address] 43974 Chloride [Moles/Vol] 102 mmol/L Normal 98 - 107 [facility] Comment on above: Performed By: #### 2 72123 #### [facility],[address] [place] [address] 46778 CO2 [Moles/Vol] 27.5 mmol/L Normal 21.0 - 31.0 [facility] Comment on above: Performed By: #### 2 86081 #### [facility],[address] [place] [address] 76783 Creatinine [Mass/Vol] 1.2 mg/dL Normal 0.7 - 1.3 [facility] Comment on above: Performed By: #### 2 00475 #### [facility],[address] [place] [address] 92242 GFR/1.73 sq M predicted among non-blacks MDRD (S/P/Bld) [Vol rate/Area] Normal [facility] Comment on above: Result Comment: BASI C METABOLIC PANEL Performed By: #### 2 31661 #### [facility],[address] [place] [address] 33071 GFR/1.73 sq M predicted among non-blacks MDRD (S/P/Bld) [Vol rate/Area] 58 ML/MINUTE Low 60 - 999 [facility] Comment on above: Performed By: #### 2 47573 #### [address] [address] GFR/1.73 sq M predicted among non-blacks MDRD (S/P/Bld) [Vol rate/Area] mL/min/{1.73_m2} Normal 60 - 999 [facility] Comment on above: Result Comment: ACCO RDING TO THE NATIONAL KIDNEY DISEASE EDUCATION PROGRAM(NKDE), A NORMAL eGFR IS A VALUE GREATER THAN OR EQUAL TO 60 ML/MIN/1.73 SQ METERS. CHRONIC KIDNEY DISEASE: <60mL/MIN/1.73 SQ METERS KIDNEY FAILURE: <15mL/MIN/1.73 SQ METERS THIS TEST SHOULD ONLY BE USED FOR PATIENTS 18 YEARS OF AGE AND OLDER. Performed By: #### 2 73075 #### [address] [address] Glucose [Mass/Vol] 127 mg/dL High 74 - 106 [facility] Comment on above: Performed By: #### 2 36600 #### [address] [address] Potassium [Moles/Vol] 4.2 mmol/L Normal 3.5 - 5.1 [facility] Comment on above: Performed By: #### 2 92589 #### [address] [address] Sodium [Moles/Vol] 135 mmol/L Low 136 - 145 [facility] Comment on above: Performed By: #### 2 43595 #### [address] [address] Urea nitrogen [Mass/Vol] 28 mg/dL High 6 - 20 [facility] Comment on above: Performed By: #### 2 88932 #### [address] [address] CBC + DIFFon 02-26-2019 Basophils (Bld) [#/Vol] 0.00 x10EE3/UL Normal 0.00 - 0.10 [facility] Comment on above: Performed By: #### 2 33726 #### [facility],[address] [place] [address] 29431 Basophils/100 WBC (Bld) 0.2 % Normal 0.0 - 2.0 [facility] Comment on above: Performed By: #### 2 57976 #### [facility],[address] [place] [address] 69391 CBC + DIFF Normal [facility] Comment on above: Result Comment: CBC- COMPLETE BLOOD COUNT Performed By: #### 2 73180 #### [facility],[address] [place] [address] 78341 Eosinophils (Bld) [#/Vol] 0.00 x10EE3/UL Normal 0.00 - 0.50 [facility] Comment on above: Performed By: #### 2 56950 #### [facility],[address] [place] [address] 46474 Eosinophils/100 WBC (Bld) 0.1 % Normal 0.0 - 7.0 [facility] Comment on above: Performed By: #### 2 78505 #### [facility],[address] [place] [address] 86950 Erythrocyte distribution width (RBC) [Ratio] 13.8 % Normal 12.0 - 15.6 [facility] Comment on above: Performed By: #### 2 35120 #### [facility],[address] [place] [address] 33739 Hematocrit (Bld) [Volume fraction] 32.9 % Low 40.0 - 52.0 [facility] Comment on above: Performed By: #### 2 89357 #### [facility],[address] [place] [address] 42958 Hemoglobin (Bld) [Mass/Vol] 11.6 g/dL Low 13.0 - 17.5 [facility] Comment on above: Performed By: #### 2 44839 #### [facility],[address] [place] [address] 09187 Lymphocytes (Bld) [#/Vol] 1.40 x10EE3/UL Normal 0.80 - 2.80 [facility] Comment on above: Performed By: #### 2 68765 #### [facility],[address] [place] [address] 72228 Lymphocytes/100 WBC (Bld) 13.4 % Low 20.0 - 45.0 [facility] Comment on above: Performed By: #### 2 54998 #### [facility],[address] [place] [address] 72172 MANUAL DIFF N/A Normal [facility] Comment on above: Performed By: #### 2 33422 #### [facility],[address] [place] [address] 57245 MCH (RBC) [Entitic mass] 32 pg Normal 27 - 33 [facility] Comment on above: Performed By: #### 2 53546 #### [facility],[address] [place] [address] 84165 MCHC (RBC) [Mass/Vol] 35 X10 3 Normal 32 - 36 [facility] Comment on above: Performed By: #### 2 59050 #### [facility],[address] [place] [address] 16494 MCV (RBC) [Entitic vol] 90 fL Normal 81 - 98 [facility] Comment on above: Performed By: #### 2 43051 #### [facility],[address] [place] [address] 63196 Monocytes (Bld) [#/Vol] 0.80 x10EE3/UL Normal 0.20 - 1.00 [facility] Comment on above: Performed By: #### 2 14101 #### [facility],[address] [place] [address] 06266 MONOS % 7.7 % Normal 0.0 - 10.0 [facility] Comment on above: Performed By: #### 2 86276 #### [facility],[address] [place] [address] 44004 Morphology Tyrese (Bld) [Interp] N/A Normal [facility] Comment on above: Performed By: #### 2 77190 #### [facility],[address] [place] [address] 12178 Neutrophils (Bld) [#/Vol] 8.30 x10EE3/UL High 1.50 - 7.10 [facility] Comment on above: Performed By: #### 2 82595 #### [facility],[address] [place] [address] 88089 Neutrophils/100 WBC (Bld) 78.6 % High 46.0 - 76.0 [facility] Comment on above: Performed By: #### 2 33960 #### [facility],[address] [place] [address] 76415 Platelet mean volume (Bld) [Entitic vol] 8.2 fL Normal 6.4 - 10.5 [facility] Comment on above: Result Comment: AUTO MATED DIFFERENTIAL Performed By: #### 2 80978 #### [facility],[address] [place] [address] 04366 Platelets (Bld) [#/Vol] 123 x10EE3/UL Low 150 - 450 [facility] Comment on above: Performed By: #### 2 05039 #### [address] [address] RBC (Bld) [#/Vol] 3.67 x 10EE6/UL Low 4.50 - 6.00 [facility] Comment on above: Performed By: #### 2 61933 #### [facility],[address] [place] [address] 72029 WBC (Bld) [#/Vol] 10.6 x 10EE3/UL Normal 4.5 - 10.8 [facility] Comment on above: Performed By: #### 2 52855 #### [facility],[address] [place] [address] 32878 OPERATIVE PROCEDURESon 02-26 OPERATIVE PROCEDURES [facility] OPERATIVE REPORT NAME ACCOUNT SEX AGE ADMIT DISCHARGE PT MED. RECORD# NUMBER DATE DATE TYPE TIAN [id number] Jackie 79 02/25/19 1 FLORIN Courtney [address] ROOM: [facility] DATE OF : 1940 DICTATING PHYSICIAN: Saji Pena DATE OF SURGERY: February 25, 2019 SURGEON: Saji Pena MD CLINICAL RESOURCE MANAGER: Sil Wesley PA-C./JAIME Callahan student. ANESTHESIOLOGIST: Rossana [...] 1 of 3 FLORIN VARGAS Operative Report personnel assistant, physician tax assistant, was utilized throughout the entire procedure. She helped with patient positioning, holding of limb, holding of retractors. She helped with exposure throughout. She helped with wound closure, bandage application, and patient transfer. She was also vital in instructing the METAL WEIGHER student on assisting techniques, as well as suturing techniques. Without neurosurgical nurse practitioner, surgical time would have been increased. Surgical [...] clamp was held by the surgeon, and tax assistant drilled through that with 3 drill [...] was holding the leg in extension, the tax assistant injected the pain relieving solution carefully [...] Saji Pena MD 02/25/19 11:06 JOB #: [id number] Transcribed By: chanelle 02/25/19 17:38 Electronically signed by: E-SIGN DR. SAJI PENA M.D. 02/26/19 13:00 Page 3 of 3 FLORIN VARGAS Operative Report Normal [facility] URINALYSISon 02-26-2019 Bilirubin [Mass/Vol] Negative Normal NORMAL: NEGATIVE [facility] Comment on above: Performed By: #### 2 37332 #### [facility],[address] [place] [address] 19043 Blood Negative Normal NORMAL: NEGATIVE [facility] Comment on above: Performed By: #### 2 97437 #### [facility],[address] [place] [address] 30367 Clarity (U) clear Normal NORMAL: CLEAR [facility] Comment on above: Performed By: #### 2 69507 #### [facility],[address] [place] [address] 99999 Color (U) jigar Normal NORMAL: YELLOW [facility] Comment on above: Performed By: #### 2 11204 #### [facility],[address] [place] [address] 00546 Glucose [Mass/Vol] NORM Normal NORMAL: NORMAL [facility] Comment on above: Performed By: #### 2 50863 #### [facility],[address] [place] [address] 21130 Ketone 15 Abnormal NORMAL: NEGATIVE [facility] Comment on above: Performed By: #### 2 31413 #### [facility],[address] [place] [address] 80204 Microscopic NOT Normal [facility] Comment on above: Performed By: #### 2 76712 #### [facility],[address] [place] [address] 47908 Nitrite Ql (U) Negative Normal NORMAL: NEGATIVE [facility] Comment on above: Performed By: #### 2 54215 #### [facility],[address] [place] [address] 77570 pH (Bld) 6 Normal NORMAL: 5.0-8.0 [facility] Comment on above: Performed By: #### 2 76342 #### [facility],[address] [place] [address] 53753 Protein (U) [Mass/Vol] 30 mg/dL Abnormal NORMAL: NEGATIVE [facility] Comment on above: Performed By: #### 2 20901 #### [facility],[address] [place] [address] Sp [place] 1.020 Normal NORMAL: 1.010-1.03 0 [facility] Comment on above: Performed By: #### 2 45959 #### [facility],[address] [place] [address] Specimen type Nom (Spec) Catheter Normal [facility] Comment on above: Performed By: #### 2 05015 #### [facility],[address] [place], [place] [address] Urobilinog NORM Normal NORMAL: NORMAL [facility] Comment on above: Performed By: #### 2 77077 #### [facility],[address] [place] [address] WBC (Bld) [#/Vol] Negative Normal NORMAL: NEGATIVE [facility] Comment on above: Performed By: #### 2 35542 #### [facility],[address] [place] [address] KNEE 2 VIEWS LTon 02-25-2019 KNEE 2 VIEWS LT [place] [address] Patient: FLORIN VARGAS Phone#: : 1940 Age: 79 Gender: M Pt. Type: In Account: [id number] Location: 062 Ordering: SAJI PENA Exam Date: 02/25/2019/11:50 Family Phys: PEDRO AJac GONZALEZ Charge Code: 404295 Physician: Mckenzie Order #: [id number] DLP Dose#: PROCEDURE: X-RAY KNEE LT 2 [...] Burgess MD on 02/25/2019 at 12:35 Normal [facility] BMP with eGFRon 02-07-2019 Age - Reported 79 years Normal [facility] Comment on above: Performed By: #### 2 46289 #### [facility],[address] [place] [address] 37435 Anion gap [Moles/Vol] 13 mmol/L Normal 10 - 20 [facility] Comment on above: Performed By: #### 2 27007 #### [facility],[address] [place] [address] 51502 Calcium [Mass/Vol] 10.0 mg/dL Normal 8.6 - 10.2 [facility] Comment on above: Performed By: #### 2 22254 #### [facility],[address] [place] [address] 19800 Chloride [Moles/Vol] 102 mmol/L Normal 98 - 107 [facility] Comment on above: Performed By: #### 2 87777 #### [facility],[address] [place] [address] 54530 CO2 [Moles/Vol] 25.7 mmol/L Normal 21.0 - 31.0 [facility] Comment on above: Performed By: #### 2 87111 #### [facility],[address] [place] [address] 34847 Creatinine [Mass/Vol] 1.2 mg/dL Normal 0.7 - 1.3 [facility] Comment on above: Performed By: #### 2 24683 #### [address] [address] GFR/1.73 sq M predicted among non-blacks MDRD (S/P/Bld) [Vol rate/Area] 58 ML/MINUTE Low 60 - 999 [facility] Comment on above: Performed By: #### 2 44852 #### [facility],[address] [place] [address] 43854 GFR/1.73 sq M predicted among non-blacks MDRD (S/P/Bld) [Vol rate/Area] Normal [facility] Comment on above: Result Comment: BASI C METABOLIC PANEL Performed By: #### 2 50429 #### [facility],[address] [place] [address] 78263 GFR/1.73 sq M predicted among non-blacks MDRD (S/P/Bld) [Vol rate/Area] mL/min/{1.73_m2} Normal 60 - 999 [facility] Comment on above: Result Comment: ACCO RDING TO THE NATIONAL KIDNEY DISEASE EDUCATION PROGRAM(NKDE), A NORMAL eGFR IS A VALUE GREATER THAN OR EQUAL TO 60 ML/MIN/1.73 SQ METERS. CHRONIC KIDNEY DISEASE: <60mL/MIN/1.73 SQ METERS KIDNEY FAILURE: <15mL/MIN/1.73 SQ METERS THIS TEST SHOULD ONLY BE USED FOR PATIENTS 18 YEARS OF AGE AND OLDER. Performed By: #### 2 97366 #### [facility],[address] [place] [address] 64779 Glucose [Mass/Vol] 93 mg/dL Normal 74 - 106 [facility] Comment on above: Performed By: #### 2 19222 #### [facility],[address] [place] [address] 58436 Potassium [Moles/Vol] 4.5 mmol/L Normal 3.5 - 5.1 [facility] Comment on above: Performed By: #### 2 61190 #### [facility],[address] [place] [address] 66346 Sodium [Moles/Vol] 136 mmol/L Normal 136 - 145 [facility] Comment on above: Performed By: #### 2 46342 #### [facility],[address] [place] [address] 06053 Urea nitrogen [Mass/Vol] 35 mg/dL High 6 - 20 [facility] Comment on above: Performed By: #### 2 92875 #### [facility],[address] [place] [address] CBC (NO DIFF)on 02-07-2019 CBC (NO DIFF) Normal [facility] Comment on above: Result Comment: CBC( WITHOUT DIFFERENTIAL) Performed By: #### 2 48115 #### [facility],[address] [place] [address] Erythrocyte distribution width (RBC) [Ratio] 14.0 % Normal 12.0 - 15.6 [facility] Comment on above: Performed By: #### 2 67779 #### [facility],[address] [place] [address] Hematocrit (Bld) [Volume fraction] 40.3 % Normal 40.0 - 52.0 [facility] Comment on above: Performed By: #### 2 39486 #### [place] [address] Hemoglobin (Bld) [Mass/Vol] 13.8 g/dL Normal 13.0 - 17.5 [facility] Comment on above: Performed By: #### 2 05678 #### [facility],[address] [place], [place] [address] MCH (RBC) [Entitic mass] 31 pg Normal 27 - 33 [facility] Comment on above: Performed By: #### 2 37524 #### [facility],[address] [place], [place] [address] MCHC (RBC) [Mass/Vol] 34 X10 3 Normal 32 - 36 [facility] Comment on above: Performed By: #### 2 33151 #### [place] [id number] MCV (RBC) [Entitic vol] 90 fL Normal 81 - 98 [facility] Comment on above: Performed By: #### 2 62979 #### [facility],[address],[place] [address] Platelet mean volume (Bld) [Entitic vol] 8.7 fL Normal 6.4 - 10.5 [facility] Comment on above: Performed By: #### 2 73246 #### [facility],[address] [place] [address] 59468 Platelets (Bld) [#/Vol] 155 x10EE3/UL Normal 150 - 450 [facility] Comment on above: Performed By: #### 2 76788 #### [facility],[address] [place] [address] 77974 RBC (Bld) [#/Vol] 4.46 x 10EE6/UL Low 4.50 - 6.00 [facility] Comment on above: Performed By: #### 2 45832 #### [facility],[address] [place] [address] 21188 WBC (Bld) [#/Vol] 6.7 x 10EE3/UL Normal 4.5 - 10.8 [facility] Comment on above: Performed By: #### 2 92740 #### [facility],[address] [place] [address] 14540 CHEST 2 VIEWSon 02-07-2019 CHEST [address] [address] Patient: FLORIN VARGAS Phone#: : 1940 Age: 79 Gender: M Pt. Type: Out Account: [id number] Location: Ordering: SJAI PENA Exam Date: 02/07/2019/10:51 Family Phys: PEDRO GONZALEZ Charge Code: [id number] Physician: Mckenzie Order #: [id number] DLP Dose#: PROCEDURE: X-RAY CHEST 2 VIEWS [...] MARIE MARINO on 02/07/2019 at 11:05 Normal [facility] CT LOWER EXTREMITY LT WOon 0 01-11-2019 CT LOWER EXTREMITY LT WO [place] [address] Patient: FLORIN VARGAS Phone#: : 1940 Age: 78 Gender: M Pt. Type: Out Account: [id number] Location: Ordering: SAJI PENA Exam Date: 01/11/2019/8:24 Family Phys: PEDRO GONZALEZ Charge Code: [id number] Physician: Mckenzie Order #: [id number] DLP Dose#: PROCEDURE: CT LOWER EXTREMITY LT [...] 78 Gender: M Pt. Type: Out Account: [id number] Location: Ordering: SAJI PENA Exam Date: 01/11/2019/8:24 Family Phys: PEDRO GONZALEZ Charge Code: [id number] Physician: Mckenzie Order #: [id number] DLP Dose#: 3. An 11 mm loose body is present superior to the patella. Several small bony fragments are noted adjacent to the patella and may be the result of remote avulsions versus additional loose bodies. Dictated by: Anna Marie Burgess MD on 01/11/2019 at 9:42 Approved by: Anna Marie Burgess MD on 01/11/2019 at 9:42 [facility] 03-15-2018 [facility] Telephone (HVICTR) -------FLORIN VARGAS ([id number]) 1940 MDate Time Provider Department03/15/18 [facility] During your visit today, we recorded the following information about you:Sofia Nieto, RN, RN 03/15/2018 10:36 AM Signed [facility] Contact Center Inbound Phone EncounterDATE of SERVICE: 03/15/2018TIME of SERVICE: 10:34 AMStatus: Non-urgent, needs attentionService/Provider: Farooq Ray MDReason for call: Follow-up AppointmentContact information: [phone]: [facility] Spouse calling post discharge line. States [facility]. [facility] States pt is doing really well. Can be reached at the # listed above.Sofia Nieto RNDate of Resolution: 03/15/2018Time of Resolution 10:34 Mark Dominguez REWIND OPERATOR.JIMENA 03/15/2018 3:30 PM AddendumPT states that his breathing is a lot betterHe has some mild dizziness after taking the diureticHe remains stableHe will follow up locally on 03/21/2018Allergies As of Date: 03/15/2018 Noted Allergy PhcktbrkNCSTHYM-HHG-XOG REDUCTASE INHIBIT*12/29/2017 5 - Intolerance Comments: Statins caused myalgias, couldn't talk, affected my kidneysDate Reviewed: 03/08/2018Reviewed by: Quynh CareyRn) SEBASTIAN Tong - Fully AssessedReason for Visit: Post Dc Program Call - Needs Attn [[id number]]Prescriptions as of 03/15/2018 Sig: LISINOPRIL 2.5 MG [...] Status:Closed by SOFIA NIETO on 03/15/18 Normal [facility] APTTon 03-08-2018 aPTT Coag time (Bld) 26.2 s Normal 23.0-32.4 [facility] Comment on above: Result Comment: Unfr [...] laboratory APTT reagent in use throughout the [facility]. Performed By: #### P T, PTT, CBC, BMP, MG1, TSH, HBA1C ####[address] [phone] Basic Metabolic Panlon 03-08 Anion gap 3 molar conc 16 mmol/L Normal 9-18 [facility] Comment on above: Performed By: #### P T, PTT, CBC, BMP, MG1, TSH, HBA1C ####[address] [phone] Calcium mass conc 9.1 mg/dL Normal 8.5-10.2 [facility] Comment on above: Performed By: #### P T, PTT, CBC, BMP, MG1, TSH, HBA1C ####[address] [phone] Chloride molar conc 99 mmol/L Normal 97-105 [facility] Comment on above: Performed By: #### P T, PTT, CBC, BMP, MG1, TSH, HBA1C ####[address] [phone] CO2 molar conc 20 mmol/L Low 22-30 [facility] Comment on above: Performed By: #### P T, PTT, CBC, BMP, MG1, TSH, HBA1C ####[address] [phone] Creatinine mass conc 1.23 mg/dL High 0.73-1.22 [facility] Comment on above: Performed By: #### P T, PTT, CBC, BMP, MG1, TSH, HBA1C ####[facility] [place], [place] [phone] eGFR- Amer. >60 Normal [facility] Comment on above: Performed By: #### P T, PTT, CBC, BMP, MG1, TSH, HBA1C ####[facility] [place] [address] [phone] GFR/1.73 sq M predicted among non-blacks MDRD vol rate/area (S/P/Bld) 57 . Normal [facility] Comment on above: Result Comment: eGFR (Estimated [...] T, PTT, CBC, BMP, MG1, TSH, HBA1C ####[address] [phone] Glucose mass conc 92 mg/dL Normal 74-99 [facility] Comment on above: Result Comment: The [place] Diabetes Association (ADA) provides guidance for cutoff [...] Standards of Medical Care in Diabetes 2016, [place] Diabetes Association. Diabetes Care. 2016.39(Suppl 1). Performed By: #### P T, PTT, CBC, BMP, MG1, TSH, HBA1C ####[facility] [place], [place] [phone] Potassium molar conc 3.9 mmol/L Normal 3.7-5.1 [facility] Comment on above: Performed By: #### P T, PTT, CBC, BMP, MG1, TSH, HBA1C ####[facility] [place], [place] [phone] Sodium molar conc 135 mmol/L Low 136-144 [facility] Comment on above: Performed By: #### P T, PTT, CBC, BMP, MG1, TSH, HBA1C ####[place] [address] [place], [place] [phone] Urea nitrogen mass conc 22 mg/dL Normal 9-24 [facility] Comment on above: Performed By: #### P T, PTT, CBC, BMP, MG1, TSH, HBA1C ####[facility] [place], [place] [phone] CASE MANAGEMon 03-08-2018 CASE MANAGEM HNO ID: [id number] thor: SHARON Mora Rnervice: Care ManagementAuthor Type: Registered NurseType: Porfirio Mgt Progress NoteFiled: 03/08/2018 1:57 PMNote Text:CARE MANAGEMENT PROGRESS NOTESERVICE DATE: 03/08/2018SERVICE TIME: 1:56 PM LOS: 1 dayPatient listed as self pay. Message left for [facility] rep, Manju Martinez [phone] to screen patient.SIGNATURE: Kiara Skinner RN PATIENT NAME: Florin VargasDATE: March 08, 2018 : 1:56 PM PAGER/CONTACT #: [phone] Normal [facility] CASE MGT INIT ASSESon 2017 CASE MGT INIT ASSES HNO ID: [id number] thor: SHARON Mora Rnervice: Care ManagementAuthor Type: Registered NurseType: Care Mgt Initial AssessmentFiled: 03/08/2018 9:47 AMNote Text:CARE MANAGEMENT: ASSESSMENT AND DISCHARGE PLANSERVICE DATE: 03/08/2018SERVICE TIME: 9:39 AMPRIENCOMPASS HE[facility] PHYSICIAN:Pedro Gonzalez [facility] Hospitalne: [phone] STATUS: InpatientMEDICAL:Patient/Re presentative Stated Goals:To return home [...] Admission: NoneHas the Patient Been in a Nursing Home Facility in the Past 30 days? NoSOCIAL:Living Arrangement: HomeLives With: SpouseFinancial Resources: Retired and AmishPrimary Contact: Extended Emergency Contact InformationPrimary Emergency Contact: Rachel Vargas Tzazwvyp: SonSupportive: YesOther Important Patient Contacts: NoneCaregiver Assessment:Caregiver [...] - 0I feel financially burdened by my twv-sx-rtmajx expenses for myprescription medication: Disagree completely - [...] NoneFREEDOM OF CHOICE EXPLAINED:N/APOTENTIAL TRANSITION PLANSTo Be Ljhcztwlnd45 year old male from [place], [place] admitted with CHF exacerbation.Lives with family, independent with ADL/IADL care prior to admission. [facility] used. CM role explained. Has friend that will transport him home.Basic discharge needs at this time. Will continue to assess for anyevolving needs and plan accordingly.SIGNATURE: Kiara Skinner RN PATIENT NAME: Florin VargasDATE: March 08, 2018 : 9:39 AM PAGER/CONTACT #: [phone] Normal [facility] CBCon 03-08-2018 Absolute nRBC <0.01 Normal <0.01 [facility] Comment on above: Performed By: #### P T, PTT, CBC, BMP, MG1, TSH, HBA1C ####[place] [phone] Erythrocyte distribution width Auto Ratio (RBC) 14.1 % Normal 11.5-15.0 [facility] Comment on above: Performed By: #### P T, PTT, CBC, BMP, MG1, TSH, HBA1C ####[address] [phone] Hematocrit Auto Volume Fraction (Bld) 40.2 % Normal 39.0-51.0 [facility] Comment on above: Performed By: #### P T, PTT, CBC, BMP, MG1, TSH, HBA1C ####[address] [phone] Hemoglobin mass conc (Bld) 13.5 g/dL Normal 13.0-17.0 [facility] Comment on above: Performed By: #### P T, PTT, CBC, BMP, MG1, TSH, HBA1C ####[place] [address] [address] [place], [place] [phone] MCH Auto Entitic mass (RBC) 29.5 pG Normal 26.0-34.0 [facility] Comment on above: Performed By: #### P T, PTT, CBC, BMP, MG1, TSH, HBA1C ####[place] [address] [address] [place], [place] [phone] MCHC Auto mass conc (RBC) 33.6 g/dL Normal 30.5-36.0 [facility] Comment on above: Performed By: #### P T, PTT, CBC, BMP, MG1, TSH, HBA1C ####[address] [place], [place] [phone] MCV Auto Entitic volume (RBC) 88.0 fL Normal 80.0-100.0 [facility] Comment on above: Performed By: #### P T, PTT, CBC, BMP, MG1, TSH, HBA1C ####[place] [address] [address] [place], [place] [phone] Platelet mean volume Auto Entitic volume (Bld) 10.4 fL Normal 9.0-12.7 [facility] Comment on above: Performed By: #### P T, PTT, CBC, BMP, MG1, TSH, HBA1C ####[address] [phone] Platelets Auto #/vol (Bld) 162 10*3/uL Normal 150-400 [facility] Comment on above: Performed By: #### P T, PTT, CBC, BMP, MG1, TSH, HBA1C ####[place] [address] [address] [place], [place] [phone] RBC Auto #/vol (Bld) 4.57 10*6/uL Normal 4.20-6.00 [facility] Comment on above: Performed By: #### P T, PTT, CBC, BMP, MG1, TSH, HBA1C ####[address] Health Systemand, [place] [phone] WBC Auto #/vol (Bld) 6.25 10*3/uL Normal 3.70-11.00 [facility] Comment on above: Performed By: #### P T, PTT, CBC, BMP, MG1, TSH, HBA1C ####[facility] [place], [place] [phone] ECG COMPLETE W INTERPRETATIO Non 03-08-2018 Protein mass conc NAME : Eliseo VARGAS ONASPID : [id number] : 1940 Gender : MaleRace : CaucasianORD : [id number] Procedure Date : Mar 07 2018 22:18:11Edit [...] : 420 msQTC Calculation(Bezet) : 450 msP [place] : -24 degreesR [place] : 0 degreesT [place] : 146 degrees Test Reason : Location : 353 : J53 02 Overread By : ANDRZEJ HAMMOND M.D.Edited By : ANDRZEJ HAMMOND M.D.Referred By : ,Acquired by : KIDNEY,HUMAIRA Normal [facility] Hemoglobin A1con 03-08-2018 Glucose mass conc 111 mg/dL Normal [facility] Comment on above: Result Comment: eAG: (Estimated average glucose) is a calculated value from HgbA1c and is c s s representative of the average blood glucose level in the last 2-3 month period. Performed By: #### P T, PTT, CBC, BMP, MG1, TSH, HBA1C ####[place] [id number] [place], [place] [phone] Hemoglobin A1c/Hemoglobin.total mass fraction (Bld) 5.5 % Normal 4.3-5.6 [facility] Comment on above: Performed By: #### P T, PTT, CBC, BMP, MG1, TSH, HBA1C ####[place] [address] [place], [place] [phone] Lipid Panel, Basicon 03-08- 018 Cholesterol in HDL mass conc 62 mg/dL Normal >39 [facility] Comment on above: Result Comment: 40-5 9 mg/dL, Acceptable>59 mg/dL, High: Negative risk factor for coronary heart disease<40 mg/dL, Low: Positive risk factor for coronary heart disease Performed By: #### L IPB, JR ####[address] [phone] Cholesterol in LDL mass conc 166 mg/dL High <100 [facility] Comment on above: Result Comment: <100 mg/dL, Optimal 100-129 mg/dL, Near optimal/above optimal 130-159 mg/dL, Borderline high 160-189 mg/dL, High>189 mg/dL, Very highSecondary prevention optimal LDL Cholesterol levels are recommended to be < 70 mg/dL Performed By: #### L IPB, JR ####[address] [phone] Cholesterol mass conc 242 mg/dL High <200 [facility] Comment on above: Result Comment: <200 mg/dL, Desirable 200-239 mg/dL, Borderline high>239 mg/dL, High Performed By: #### L IPB, JR ####[address] [phone] Fasting Time Unknown Normal [facility] Comment on above: Performed By: #### L IPB, JR ####[address] [phone] LDL:HDL Ratio 2.68 High <2.54 [facility] Comment on above: Result Comment: Refe rence:1. National Cholesterol Education Program ATP III Guideline At-A-Glance Quick Desk Reference: National Heart, Lung, and Blood [place]. National Institutes of Health. 2001: NIH Publication No. 01-3305.2. An International Atherosclerosis Society position paper: global recommendations for the management of dyslipidemia: executive summary, Atherosclerosis. 2014: 232(2):410-413. Performed By: #### L IPB, JR ####[address] [phone] Non HDL Cholesterol 180 mg/dL High <130 [facility] Comment on above: Result Comment: <130 mg/dL, Optimal 130-159 mg/dL, Near optimal/above optimal 160-189 mg/dL, Borderline high 190-219 mg/dL, High>219 mg/dL, Very highSecondary prevention optimal non HDL Cholesterol levels are recommended to be < 100 mg/dL Performed By: #### L IPB, JR ####[address] [phone] TC:HDL Ratio 3.90 Normal <5.10 [facility] Comment on above: Performed By: #### L IPB, JR ####[address] [phone] Triglyceride mass conc 70 mg/dL Normal <150 [facility] Comment on above: Result Comment: <150 mg/dL, Normal 150-199 mg/dL, Borderline high 200-499 mg/dL, High>499 mg/dL, Very high Performed By: #### L IPB, JR ####[address] [phone] VLDL Cholesterol 14 mg/dL Normal <30 [facility] Comment on above: Performed By: #### L IPB, JR ####[address] [phone] Magnesiumon 03-08-2018 Magnesium mass conc 2.2 mg/dL Normal 1.7-2.3 [facility] Comment on above: Performed By: #### P T, PTT, CBC, BMP, MG1, TSH, HBA1C ####[address] [phone] NURSING PROGon 03-08-2018 Protein mass conc HNO ID: [id number] thor: Max (Rn) SHARON Eganervice: Cardiovascular MedicineAuthor Type: Registered NurseType: Nursing Progress NoteFiled: 03/08/2018 3:34 PMNote Text:Bedside echo with definity03/08/2018 3:34 PMOrder reviewed by nurse:yesMedications: Definity - dosage 2 ml given slow IVReaction: No Normal [facility] PT EDon 03-08-2018 PT ED HNO ID: [id number] thor: Elaina (Tech) StevieumboService: Nutrition TherapyAuthor Type: Dietetic TechnicianType: Patient EducationFiled: 03/08/2018 9:32 AMNote Text:[facility] PATIENT EDUCATIONTOPIC: Survival Skills: DietPATIENT NAME: Florin VargasMRN: [id number] DATE: March 08, 2018Diagnosis: ADULT: Heart FailureREADINESS [...] Type: Routine Care/15 min 2 unitsALONZO Sanfordager: [id number] 20179:32 AM Normal [facility] Protimeon 03-08-2018 INR Coag RelTime (Bld) 1.1 {INR} Normal 0.9-1.3 [facility] Comment on above: Result Comment: Татьяна min K Antagonist (VKA) Therapeutic Range: INR 2 to 3 (Target INR of 2.5)Note: For patients treated with VKA drugs, such as warfarin, the [place] College of Chest Physicians 2012 Guideline recommends [...] al. Chest 2012, 141:7S-47SNishruel RA, et al. [facility] 2017, 70: 252-289 Performed By: #### P T, PTT, CBC, BMP, MG1, TSH, HBA1C ####[place] [address] [place], [place] [phone] PT Sec 11.3 sec Normal 9.7-13.0 [facility] Comment on above: Performed By: #### P T, PTT, CBC, BMP, MG1, TSH, HBA1C ####[place] [address] [place], [place] [phone] TSHon 03-08-2018 Thyrotropin Qn 4.700 uU/mL Normal 0.400-5.50 0 [facility] Comment on above: Performed By: #### P T, PTT, CBC, BMP, MG1, TSH, HBA1C ####[place] [address] [place], [place] [phone] Troponin Ton 03-08-2018 Troponin T.cardiac mass conc ug/L Normal 0.000-0.02 9 [facility] Comment on above: Performed By: #### L IPB, JR ####[place] [address] [address] [place] [phone] Troponin T.cardiac mass conc ug/L Normal 0.000-0.02 9 [facility] Comment on above: Performed By: #### T NT ####[place] [phone] Basic Metabolic Panlon 03-07 Anion gap 3 molar conc 13 mmol/L Normal 9-18 [facility] Comment on above: Performed By: #### C BCDIF, BMP, JR ####[address] [place] [phone] Calcium mass conc 9.4 mg/dL Normal 8.5-10.2 [facility] Comment on above: Performed By: #### C BCDIF, BMP, JR ####[address] [place] [phone] Chloride molar conc 102 mmol/L Normal 97-105 [facility] Comment on above: Performed By: #### C BCDIF, BMP, JR ####[address] [place] [phone] CO2 molar conc 24 mmol/L Normal 22-30 [facility] Comment on above: Performed By: #### C BCDIF, BMP, JR ####[place] [address] [address] [place] [phone] Creatinine mass conc 1.04 mg/dL Normal 0.73-1.22 [facility] Comment on above: Performed By: #### C BCDIF, BMP, JR ####[place] [address] [address] [place] [phone] eGFR- Amer. >60 Normal [facility] Comment on above: Performed By: #### C BCDIF, BMP, JR ####[place] [address] [address] [place] [phone] GFR/1.73 sq M predicted among non-blacks MDRD vol rate/area (S/P/Bld) mL/min/{1.73_m2} Normal [facility] Comment on above: Result Comment: eGFR (Estimated [...] Performed By: #### C BCDICK REGALADO, JR ####[facility] [place], [place] [phone] Glucose mass conc 97 mg/dL Normal 74-99 [facility] Comment on above: Result Comment: The [place] Diabetes Association (ADA) provides guidance for cutoff [...] Standards of Medical Care in Diabetes 2016, [place] Diabetes Association. Diabetes Care. 2016.39(Suppl 1). Performed By: #### C BCDMITRIYFDICK, JR ####[facility] [address] [place], [place] [phone] Potassium molar conc 4.7 mmol/L Normal 3.7-5.1 [facility] Comment on above: Performed By: #### C BCDIFDICK, JR ####[facility] [place], [place] [phone] Sodium molar conc 139 mmol/L Normal 136-144 [facility] Comment on above: Performed By: #### C BCDMITRIYF, BMP, JR ####[address]Bri[address] [phone] Urea nitrogen mass conc 22 mg/dL Normal 9-24 [facility] Comment on above: Performed By: #### C BCDIF, BMP, JR ####[place] [phone] CBC and Differentialon 03-07 Abs Baso 0.03 k/uL Normal <0.11 [facility] Comment on above: Performed By: #### C BCDIF, BMP, JR ####[place] [phone] Abs [place] 0.69 k/uL Normal <0.87 [facility] Comment on above: Performed By: #### C BCDIF, BMP, JR ####[place] [phone] Abs Neut 3.08 k/uL Normal 1.45-7.50 [facility] Comment on above: Performed By: #### C BCDIF, BMP, JR ####[address]Br[address] [phone] Absolute nRBC <0.01 Normal <0.01 [facility] Comment on above: Performed By: #### C BCDIF, BMP, JR ####[place] [address] [address] [place] [phone] Basophils/100 WBC Auto (Bld) 0.5 % Normal [facility] Comment on above: Performed By: #### C BCDIF, BMP, JR ####[address] [phone] DTYPE Auto Diff Normal [facility] Comment on above: Performed By: #### C BCDIF BMP, JR ####[facility]leveland[address] [place] [phone] Eosinophils Auto #/vol (Bld) 0.08 10*3/uL Normal <0.46 [facility] Comment on above: Performed By: #### C BCDIF, BMP, JR ####[facility]leveland[address] [place] [phone] Eosinophils/100 WBC Auto (Bld) 1.2 % Normal [facility] Comment on above: Performed By: #### C BCSABINE BMP, JR ####[place] [address] [address]leveland[address] [place] [phone] Erythrocyte distribution width Auto Ratio (RBC) 13.8 % Normal 11.5-15.0 [facility] Comment on above: Performed By: #### C BCDMITRIYF BMP, JR ####[place] [address] [address]ClevelJason [address] [phone] Hematocrit Auto Volume Fraction (Bld) 40.1 % Normal 39.0-51.0 [facility] Comment on above: Performed By: #### C BCDMITRIYF BMP, JR ####[facility]leveland[address] [place] [phone] Hemoglobin mass conc (Bld) 13.7 g/dL Normal 13.0-17.0 [facility] Comment on above: Performed By: #### C BCDIF BMP, JR ####[facility]leveland[address] [place] [phone] Lymphocytes Auto #/vol (Bld) 2.58 10*3/uL Normal 1.00-4.00 [facility] Comment on above: Performed By: #### C BCDIF, BMP, JR ####[place] [address] [address]Cleveland[address] [place] [phone] Lymphocytes/100 WBC Auto (Bld) 39.9 % Normal [facility] Comment on above: Performed By: #### C BCDICK REGALADO, JR ####[place] [address]CBr[address] [place] [phone] MCH Auto Entitic mass (RBC) 29.8 pG Normal 26.0-34.0 [facility] Comment on above: Performed By: #### C BCDICK REGALADO, JR ####[place] [address] [place] [phone] MCHC Auto mass conc (RBC) 34.2 g/dL Normal 30.5-36.0 [facility] Comment on above: Performed By: #### C DICK LEE, JR ####[place] [address] [place] [phone] MCV Auto Entitic volume (RBC) 87.4 fL Normal 80.0-100.0 [facility] Comment on above: Performed By: #### C BCDICK REGALADO, JR ####[place] [address] [place] [phone] Monocytes/100 WBC Auto (Bld) 10.7 % Normal [facility] Comment on above: Performed By: #### C BCDICK REGALADO, JR ####[place] [address] [place] [phone] Neutrophils/100 WBC Auto (Bld) 47.7 % Normal [facility] Comment on above: Performed By: #### C BCDICK REGALADO, JR ####[place] [address] [place] [phone] NRBCs 0.0 /100 WBC Normal 0 [facility] Comment on above: Performed By: #### C BCDICK REGALADO, JR ####[place] [address] AveClevelJason [place] [phone] Platelet mean volume Auto Entitic volume (Bld) 9.9 fL Normal 9.0-12.7 [facility] Comment on above: Performed By: #### C BCDIF, BMP, JR ####[facility] [place], [place] [phone] Platelets Auto #/vol (Bld) 152 10*3/uL Normal 150-400 [facility] Comment on above: Performed By: #### C BCDIF, BMP, JR ####[facility] [place], [place] [phone] RBC Auto #/vol (Bld) 4.59 10*6/uL Normal 4.20-6.00 [facility] Comment on above: Performed By: #### C BCDIF, BMP, JR ####[facility] [place], [place] [phone] WBC Auto #/vol (Bld) 6.47 10*3/uL Normal 3.70-11.00 [facility] Comment on above: Performed By: #### C BCDIF, BMP, JR ####[facility] [place], [place] [phone] CT CHEST W IVCON PEon 2017 CT CHEST W IVCON PE * * *Final Report* * *DATE OF EXAM: Mar 07 2018 5:00PM [facility] 0540 - CT CHEST W IVCON PE [...] size. Changes from coronary artery bypass grafting. [place] triple-vessel coronary artery atherosclerotic calcifications are noted, [...] CRUZ MD on Mar 07 2018 6:04PM [id number] Normal [facility] D dimeron 03-07-2018 D dimer 2100 ng/mL FEU High <500 [facility] Comment on above: Result Comment: The D-dimer [...] of 41.7%. Performed By: #### D DMER ####[facility] [address] [place], [place] [phone] ED NOTEon 03-07-2018 ED NOTE HNO ID: [id number] Author: Avila Baum, SEBASTIAN Service: Emergency Medicine Author Type: Registered Nurse Type: ED Notes Filed: 03/07/2018 8:48 PM Note Text: Report called to Quynh CORTES. Bed ready. Normal [facility] ED NOTE HNO ID: [id number] thor: Avila Baum, SHARONervice: Emergency MedicineAuthor Type: Registered NurseType: ED NotesFiled: 03/07/2018 7:34 PMNote Text:Assumed care of pt. Pt presenting to ED with c/o SOB. Pt states We wenton [place] 3 [place] trip to [place], and we tried to buy oxygen to help mandy. When I got back I just could not catch my breath. Pt denies anyCP, AGUAYO, dizziness, SOB, or lightheadedness at this time. Pt able toambulate to bathroom, without becoming SOB. Pt on monitor, NSR 84. Pulseox 98% on RA. NAD noted. ABCs intact. Safety checks performed. Willcontinue to monitor. Normal [facility] ED NOTE HNO ID: [id number] Author: Warren (Medic) Taylor Cuenca Service: Emergency Medicine Author Type: Vacuum Metalizer Operator and Breakdown Worker Type: ED Notes Filed: 03/07/2018 2:26 PM Note Text: Labs were drawn and sent. Normal [facility] ED NOTE HNO ID: [id number] thor: Micaela (Rn) SHARON Salaservice: Emergency MedicineAuthor [...] non-tender, SAMUEL's x 4 and followscommands. Normal [facility] ED NOTE HNO ID: [id number] Author: Nancy CareyRn) SEBASTIAN Fountain Service: (none) Author Type: Registered Nurse Type: ED Notes Filed: 03/07/2018 2:06 PM Note Text: Bed: E12-18 Expected date: Expected time: Means of arrival: Comments: Normal [facility] ED PROV NOTEon 03-07-2018 Protein mass conc HNO ID: [id number] thor: GENE Navaervice: Emergency MedicineAuthor Type: PhysicianType: ED Provider NotesFiled: 03/08/2018 12:47 AMNote Text:ED Provider NotePatient Name: Florin VargasMRN: [id number] DATE: 03/07/18HistoryPatient presents with:Shortness of Breath: h/o aortic valve replacement December. Had three weekroad trip, now having SOB. On ASA and Snrhcc89 yo M with PMH including CAD s/p CABGs, Aortic Stenosis s/p TAVR 12/29,HL presenting to the ED today with SOB. Patient was doing well after hissurgery, no CP or SOB. Took a trip to [place] and developed SOB whilethere. Notes [place], and more noticeable shortness or breath when he istrying to sleep, no change if he is lying flat or sitting up though.States he developed chest pain while riding [place] improved with holding pressure over [...] No- Sexual activity: Not on fileALLERGIESAllergen Reactions- Szvhyqk-Iqi-Xwg Red* Intolerance Statins caused myalgias, couldn't talk, [...] rhythm and intact distal pulses.No murmur heard.Loud P1Yomywqofn/Chest: Effort normal and breath sounds normal. He [...] minute with 1 PVCAXIS: Normal axisINTERVALS: Normal OK intervalQRS COMPLEX: NormalST SEGMENT: Normal ST-T segmentsQT INTERVAL: NormalCOMPARED WITH PRIOR: Now with PVC, otherwise similarI saw and evaluated the patient. Discussed with the resident and agreewith resident's findings and plan as documented in the resident's notewith the following corrections/addenda:Mr. Vargas is a 78yo Anglican M with a h/o CAD s/p CABG (GRAJEDA-LAD) [id number] and redo CABG (2001) with severe s/p TAVR (12/27/17) who comes infor new [place] and PND with 1-pillow orthopnea and associated exertionallightheadedness and nausea that he first noted after taking a 3-[place] bustrip to [place]. He did not notice and LE swelling or pain during histrip or preceding his symptoms and denies any associated chestpain/palpitations. He denies any personal or family history of clottingdisorders and reports full compliance with his DAPT (clopidogrel/ASA). Heotherwise has had no recent infectious sx.He initially attributed his symptoms to the elevation ([place],where [place] was, is at [place] elevation of 6000 ft) and acquired supplemental OTCO2 and reports having some improvement in his symptoms, but he has notreturn to his baseline exercise tolerance since returning to [place]. He deniesassociated LE swelling, abdominal distension or changes in appetite/POintake. His documented weight today is 180lbs, which his c/w hisdocumented weight of 179lbs at his 01/12 post-TAVR cardiology appointment.His 1 month post-TAVR echo (in [place]) was reportedly unchanged from hisimmediate post-TAVR echo.OE: pleasant and non-toxic Anglican M appearing younger than stated agerrr, [id number] ctab with some scattered bronchiolitic breath sounds [...] in the AM.Britni Chowdhury MD03/08/18 0047 Normal [facility] EKG1on 03-07-2018 Protein mass conc NAME : Eliseo VARGAS ONASPID : [id number] : 1940 Gender : MaleRace : CaucasianORD : Procedure Date : Mar 07 2018 14:04:58Edit Date : Mar 11 2018 00:09:39 Diagnosis:SINUS RHYTHM WITH OCCASIONAL PREMATURE VENTRICULAR COMPLEXESMINIMAL VOLTAGE CRITERIA FOR LVH, MAY BE NORMAL VARIANTCANNOT EXCLUDE ANTERIOR MYOCARDIAL INFARCTION , AGE UNDETERMINEDABNORMAL ECGNOTE: PLEASE SEE PHYSICIAN'S NOTE FROM EMatilda VISITNOTE: PLEASE SEE PHYSICIAN'S NOTE FROM Sharif VISITReconfirmed by GABINO Prado, PEDRO ([id number]), food editor MARLENA YOUNGER ([id number]) on 03/11/2018 12:09:29 AM Ventricular Rate : 75 BPMAtrial Rate : 75 BPMP-R Interval : 198 msQRS Duration : 94 msQ-T Interval : 414 msQTC Calculation(Bezet) : 462 msP [place] : 19 degreesR [place] : -15 degreesT [place] : 113 degrees Test Reason : Location : 2 : EDNS Overread By : GABINO Prado,ERICEdited By : ROMELIA YOUNGERITReferred By : ,Acquired by : Jonel CONDON [facility] HISTORY PHYSICALon 8 HISTORY PHYSICAL HNO ID: [id number] thor: Ladarius Grajeda: Cardiovascular MedicineAuthor Type: PhysicianType: HANDPFiled: 03/08/2018 9:15 AMNote Text: HEART and VASCULAR INSTITUTECARDIOVASCULAR MEDICINE HISTORY AND PHYSICAL (Template ID [id number])Florin [id number] SERVICE: Cardiovascular Medicine: InterventionDATE OF ADMISSION: 03/07/2018CHIEF COMPLAINTCHF exacerbationHISTORY OF PRESENT ILLNESSFlorin Vargas is a 78 year old male who presents with progressiveshortness of breath to ED.PMH- CABG 1995 Grajeda-LAD ([facility]); redo CAB 2001 [facility]- severe s/p TAVR 26 mm Ewards on 12/27/[address] Villa.- osital, proximal and mid-distal RCA stenting on 11/22/2017 with 4.0/12 mmsynergy EES, 4.0/38 mm synergy ees and 3.5/[address] Cancino- HTN- HLDHe was doing well post TAVR. Returned home two days after TAVR on 12/29and was feeling well enough to travel to [place] with his family.He left for [place] on the 19 of February and returned [...] (radiology procedure) INTRAVENOUS DIRECTED PRNALLERGIESALLERGIESAllerg en Reactions- Hjwwzal-Nyh-Tfo Red* Intolerance Statins caused myalgias, couldn't talk, affected my kidneysREVIEW OF WRLREJI77 point negative as per hpiPHYSICAL EXAMBP 152/74 [...] (mg/dL)Date Value12/29/2017 68 No results found for: GCM3SUZA:NSR with one PVC. No ST or T [...] to be discussed with José Manuel Ascencio [id number] (please see below for after hours communication)03/07/20188:34 PMFor communication after 5 pm on weekdays and after 12 pm on weekends,please page the following:- Clinical Cardiology patients on all floors: page [phone]- Other Cardiology patients on J5 and J6: page [phone]- Other Cardiology patients on J7 and J8: page [phone] STAFF PHYSICIAN NOTE OF PERSONAL INVOLVEMENT IN [...] 08, 2018TIME OF SERVICE: 9:11 AM Normal [facility] NT Pro BNPon 03-07-2018 Protein mass conc 3139 pg/mL High <450 [facility] Comment on above: Performed By: #### N TBNP ####[facility] [address] [place], [place] [phone] NURSING PROGon 03-07-2018 Protein mass conc HNO ID: [id number] thor: Quynh (Rn) Awls, RNService: NursingAuthor Type: Registered NurseType: Nursing Progress NoteFiled: 03/08/2018 6:53 AMNote Text:Pt admittetd J53-2. Pt transferred safely. Pt AO X3. Skin assessment WNLno pressure injuries. ( SEBASTIAN layne)Pt has a abrasion to left knee. Normal [facility] PROGRESSon 03-07-2018 Protein mass conc HNO ID: [id number] thor: Bhargav (Ct) Prateek Winn: (none)Author Type: Clinical TechnicianType: Progress NotesFiled: 03/07/2018 4:55 PMNote Text: Radiology Service Progress NotePATIENT NAME: Folrin VargasMRN: [id number] OF SERVICE: March 07, 2018TIME: 4:52 PMPATIENT IDENTITY VERIFICATION COMPLETED USING TWO (2) METHODS: Patientconfirmed name verbally and ID band matches..PATIENT GENDER DATA: MalePATIENT RELEVANT IMPLANT DATA REVIEWED: YesCONTRAST INDUCED NEPHROPATHY RISK FACTORS: Patient age > 60 yearsCREATININE:CreatinineD ate Value Ref Range Ejxvko5903/07/2018 1.04 0.73 - 1.22 mg/dL Final01/12/2018 1.04 0.73 - 1.22 mg/dL Final12/29/2017 0.97 0.73 - 1.22 mg/dL Final eGFR-All Other RacesDate Value Ref Range Aplfsv6703/07/2018 >60 . FinalComment:eGFR (Estimated GFR) Units of [...] actual GFR. eGFR- AmericanDate Value Ref Range Aibpdv4303/07/2018 >60 Final P.O.C.T. RESULTS: N/A March 07, 2018RADIOLOGIST NOTIFIED?: AcERGIES: Reviewed and unchangedCONTRAST ALLERGY: NO.PERIPHERAL IV ACCESS: Ambulatory: IV type: Existing peripheral IVutilized, Site assessment: Clean,Dry and Intact, Site disposition Left infor next appointmentRADIOLOGY DEPARTMENT: CT; Exam(s) Completed: PE StudySIGNED BY: RT Alessandro(R)(CT)March 07, 2018 4:52 PM Normal [facility] Protein mass conc HNO ID: [id number] thor: Martha (Rt) Mauricevice: RadiologyAuthor Type: TechnicianType: Progress NotesFiled: 03/07/2018 2:36 PMNote Text: Radiology Service Progress NotePATIENT NAME: Florin VargasMRN: [id number] OF SERVICE: March 07, 2018TIME: 2:36 PMPATIENT IDENTITY VERIFICATION COMPLETED USING TWO (2) METHODS: Patientconfirmed name verbally and ID band matches..PATIENT GENDER DATA: MalePATIENT RELEVANT IMPLANT DATA REVIEWED: Not ApplicableRADIOLOGY DEPARTMENT: General X-ray: Exam(s) Completed: Chest X-RayPERIPHERAL IV DATA: Not applicableSIGNED BY: RT ZaneJuly 2017 2:36 PM Normal [facility] Troponin Ton 03-07-2018 Troponin T.cardiac mass conc ug/L Normal 0.000-0.02 9 [facility] Comment on above: Performed By: #### C BCDIF, BMP, JR ####[facility] [address] [place], [place] [phone] XR CHEST 2V FRONTAL/LATon XR CHEST 2V [...] cardiomediastinal silhouette. There is aortic atherosclerotic calcification.Other: .Agricultural Plow Operator: JOSE ARMANDO Transcribe Date/Time: Mar 07 2018 2:41PDictated by : NALINI FOSS MDThis examination was interpreted and the report reviewed and electronically signed by: NALINI FOSS MD on Mar 07 2018 2:44PM [id number] Normal [facility] 03-06-2018 CNPN Telephone (HVICTR) -------FLORIN VARGAS ([id number]) 1940 MDate Time Provider Department03/06/18 LADARIUS CANCINO ICTR During your visit today, we recorded the following information about you:Sofia Nieto RN, RN 03/06/2018 4:49 PM Signed [facility] Contact Center Inbound Phone EncounterDATE of SERVICE: 03/06/2018TIME of SERVICE: 4:46 PMStatus: Non-urgent, needs attentionService/Provider: Interventional Ladarius Cancino MDReason for call: Shortness of BreathContact information: [phone]: Sent to [facility]: calling post discharge line. States they took a trip to [place]02/19-[place]03. Ever since then, he has has had issues with SOB on exertion/walkingaround. Request to be contacted at # listed above.Sofia Nieto RNDate of Resolution: 03/06/2018Time of Resolution 4:46 PMChantale Che PA-C 03/06/2018 5:56 PM SignedSeen by Bhargav Becerril PA-C 01/12/2018 s/p TAVR was SOB at that time which was hisbaseline. He was going to see his local food scientist in a month with an echo.I was not able to reach the pt or his at number below.Mandi Bartlett RN 03/07/2018 11:28 AM SignedPatient is requesting a call back and can be reached at [phone] Hospitalgermaine Bartlett, Em Sky PA-C 03/07/2018 3:37 PM SignedPt is in the ER at this time being evaluated for the dyspnea.Allergies As of Date: 03/06/2018 Noted Allergy YpqiqkxoPLZXNPD-PTW-IWC REDUCTASE INHIBIT*12/29/2017 5 - Intolerance Comments: Statins caused myalgias, couldn't talk, affected my kidneysDate Reviewed: 12/29/2017Reviewed by: Debbie CareyRn) SEBASTIAN Almeida - Fully AssessedReason for Visit: Post Dc Program Call - Needs Attn [[id number]]Prescriptions as of 03/06/2018 Sig: EZETIMIBE 10 MG [...] Status:Closed by SOFIA NIETO on 03/06/18 Normal [facility] Basic Metabolic Panlon 01-12 Anion gap 3 molar conc 11 mmol/L Normal - [facility] Comment on above: Performed By: #### C BC, BMP, PSA ####[facility] [address] [place], [place] [phone] Calcium mass conc 9.7 mg/dL Normal 8.5-10.2 [facility] Comment on above: Performed By: #### C BC, BMP, PSA ####[facility] [address]CHappy [place], [place] [phone] Chloride molar conc 104 mmol/L Normal 97-105 [facility] Comment on above: Performed By: #### C BC, BMP, PSA ####[facility] [address]CBr[place] [phone] CO2 molar conc 24 mmol/L Normal 22-30 [facility] Comment on above: Performed By: #### C BC, BMP, PSA ####[facility] [place] [phone] Creatinine mass conc 1.04 mg/dL Normal 0.73-1.22 [facility] Comment on above: Performed By: #### C BC, BMP, PSA ####[place] [address] [address] [place] [phone] eGFR- Amer. >60 Normal [facility] Comment on above: Performed By: #### C BC, BMP, PSA ####[place] [address] [address] [place], [place] [phone] GFR/1.73 sq M predicted among non-blacks MDRD vol rate/area (S/P/Bld) mL/min/{1.73_m2} Normal [facility] Comment on above: Result Comment: eGFR (Estimated [...] Performed By: #### C BC, BMP, PSA ####[facility] [place] [phone] Glucose mass conc 89 mg/dL Normal 74-99 [facility] Comment on above: Result Comment: The [place] Diabetes Association (ADA) provides guidance for cutoff [...] Standards of Medical Care in Diabetes 2016, [place] Diabetes Association. Diabetes Care. 2016.39(Suppl 1). Performed By: #### C BC, BMP, PSA ####[facility] [place], [place] [phone] Potassium molar conc 5.1 mmol/L Normal 3.7-5.1 [facility] Comment on above: Performed By: #### C BC, BMP, PSA ####[facility] [place], [place] [phone] Sodium molar conc 139 mmol/L Normal 136-144 [facility] Comment on above: Performed By: #### C BC, BMP, PSA ####[facility] [place], [place] [phone] Urea nitrogen mass conc 25 mg/dL High 9-24 [facility] Comment on above: Performed By: #### C BC, BMP, PSA ####[facility] [address] [place], [place] [phone] CBCon 01-12-2018 Absolute nRBC <0.01 Normal <0.01 [facility] Comment on above: Performed By: #### C BC, BMP, PSA ####[facility] [place], [place] [phone] Erythrocyte distribution width Auto Ratio (RBC) 13.5 % Normal 11.5-15.0 [facility] Comment on above: Performed By: #### C BC BMP, PSA ####[facility] [place] [phone] Hematocrit Auto Volume Fraction (Bld) 42.5 % Normal 39.0-51.0 [facility] Comment on above: Performed By: #### C BC BMP, PSA ####[place] [address] [address] [place] [phone] Hemoglobin mass conc (Bld) 13.8 g/dL Normal 13.0-17.0 [facility] Comment on above: Performed By: #### C RADHA BMP, PSA ####[place] [address] [address] [place] [phone] MCH Auto Entitic mass (RBC) 29.4 pG Normal 26.0-34.0 [facility] Comment on above: Performed By: #### C BC BMP, PSA ####[place] [address] [address] [place] [phone] MCHC Auto mass conc (RBC) 32.5 g/dL Normal 30.5-36.0 [facility] Comment on above: Performed By: #### C BC BMP, PSA ####[place] [address] [address] [place] [phone] MCV Auto Entitic volume (RBC) 90.4 fL Normal 80.0-100.0 [facility] Comment on above: Performed By: #### C BC BMP, PSA ####[facility] [place] [phone] Platelet mean volume Auto Entitic volume (Bld) 10.1 fL Normal 9.0-12.7 [facility] Comment on above: Performed By: #### C BC, BMP, PSA ####[place] [address] [address] [place] [phone] Platelets Auto #/vol (Bld) 182 10*3/uL Normal 150-400 [facility] Comment on above: Performed By: #### C BC, BMP, PSA ####[facility] [address] [place], [place] [phone] RBC Auto #/vol (Bld) 4.70 10*6/uL Normal 4.20-6.00 [facility] Comment on above: Performed By: #### C BC, BMP, PSA ####[facility] [address] [place], [place] [phone] WBC Auto #/vol (Bld) 7.36 10*3/uL Normal 3.70-11.00 [facility] Comment on above: Performed By: #### C BC, BMP, PSA ####[facility] [address] [place], [place] [phone] CNOVon 01-12-2018 CNOV Office Visit (CATHMN) -------FLORIN VARGAS ([id number]) 1940 MDate Time Provider Department01/12/18 1:00 PM [...] , coronary artery disease s/p CABG 1995 GRAJEDA-LAD?([facility]),redo CABG (2001 [facility]) and severe aortic stenosis, who presents today [...] PCI/ENE- Pt will follow up with local food scientist for 30 day visit and echo(I25.10) Coronary artery disease involving [place] coronary artery of nativeheart without angina pectoris- History of CABG 1995 GRAJEDA-LAD?([facility]), redo CABG (2001 [facility])- Status post successful PCI to the ostial, [...] [953]Allergies As of Date: 01/12/2018 Noted Allergy OcqdmetkGZSEXKB-UXY-VVL REDUCTASE INHIBIT*12/29/2017 5 - Intolerance Comments: Statins caused myalgias, couldn't talk, affected my kidneysDate Reviewed: 12/29/2017Reviewed by: Debbie (Rn) SEBASTIAN Almeida - Fully AssessedReason for Visit: Follow Up [171]Primary Visit Diagnosis:Nonrheumatic aortic valve stenosis [I35.0] Other Visit Diagnoses: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 artery disease involving [place] coronary artery of [place] heart without angina pectoris [I25.10] Other hyperlipidemia [...] for Pt will follow up with local food scientist for 30 day visit and echo.Follow-up and Disposition History RecordedEncounter Number: [id number] Status:Closed by BHARGAV BECERRIL PA-C on 01/15/18 [facility] PROGRESSon 01-12-2018 Protein mass conc HNO ID: [id number] thor: Bhargav Nguyen) Carolervice: (none)Author Type: Physician [...] s/p CABG 1995 [facility]?([facility]), redo CABG (2001 [facility]) and severe aortic stenosis, who presentstoday for [...] PCI/ENE- Pt will follow up with local food scientist for 30 day visit and echo(I25.10) Coronary artery disease involving [place] coronary artery ofnative heart without angina pectoris- History of CABG 1995 GRAJEDA-LAD?([facility]), redo CABG (2001 [facility])- Status post successful PCI to the ostial, [...] today's visitMorris Joel 2017 7:14 AM Normal [facility] PSA, Diagnosticon 01-12-2018 PSA, Diagnostic 1.48 ng/mL Normal 0.00-2.59 [facility] Comment on above: Result Comment: Morris santiago PSA test methodology used is the Electrochemiluminescence Immunoassay. Performed By: #### C BC, BMP, PSA ####[facility] [address] [place], [place] [phone] CNCOon 01-05-2018 CNCO Letter Avelino Paiz [facility]Cardi[facility] Surgery / J4-1Phone: Zdu: [phone] 2017Pedro Gonzalez MDFAX: [phone]: Florin Vargas [facility] NO: [id number] Dr. Gonzalez:Your patient underwent a TAVR, Transcatheterization Aortic Replacement Valve,at [facility] on 12/27/17. The following is a copy of the patient'soperative report.It was a pleasure to participate in the care of your patient.Sincerely,Valentina Paiz, MDSurgical Director, Transcatheter Aortic Valve ProgramSdominion hospital Cardiac SurgeonS/de Normal [facility] Basic Metabolic Panlon 12-29 Anion gap 3 molar conc 15 mmol/L Normal -18 [facility] Comment on above: Performed By: #### C BCDIF, PT, CMP, NTBNP ####[facility] [address] [phone] Calcium mass conc 8.5 mg/dL Normal 8.5-10.2 [facility] Comment on above: Performed By: #### C BCDIF, PT, CMP, NTBNP ####[place] [phone] [place] [place] [phone] Chloride molar conc 101 mmol/L Normal 97-105 [facility] Comment on above: Performed By: #### C BCDIF, PT, CMP, NTBNP ####[facility] [place] [phone] CO2 molar conc 22 mmol/L Normal 22-30 [facility] Comment on above: Performed By: #### C BCDIF, PT, CMP, NTBNP ####[facility] [address]CBr[place] [phone] Creatinine mass conc 0.97 mg/dL Normal 0.73-1.22 [facility] Comment on above: Performed By: #### C BCDIF, PT, CMP, NTBNP ####[facility] [address] [phone] eGFR- Amer. >60 Normal [facility] Comment on above: Performed By: #### C BCDIF, PT, CMP, NTBNP ####[facility] [place], [place] [phone] GFR/1.73 sq M predicted among non-blacks MDRD vol rate/area (S/P/Bld) mL/min/{1.73_m2} Normal [facility] Comment on above: Result Comment: eGFR (Estimated [...] By: #### C BCDIF, PT, CMP, NTBNP ####[facility] [place], [place] [phone] Glucose mass conc 83 mg/dL Normal 74-99 [facility] Comment on above: Result Comment: The [place] Diabetes Association (ADA) provides guidance for cutoff [...] Standards of Medical Care in Diabetes 2016, [place] Diabetes Association. Diabetes Care. 2016.39(Suppl 1). Performed By: #### C BCDIF, PT, CMP, NTBNP ####[facility] [address] [place], [place] [phone] Potassium molar conc 4.3 mmol/L Normal 3.7-5.1 [facility] Comment on above: Result Comment: Resu lts may be falsely increased due to interference by hemolysis. Suggest reorder as clinically indicated. Performed By: #### C BCDIF, PT, CMP, NTBNP ####[place] [address] [address] [place] [phone] Sodium molar conc 138 mmol/L Normal 136-144 [facility] Comment on above: Performed By: #### C BCDIF, PT, CMP, NTBNP ####[address] [phone] Urea nitrogen mass conc 15 mg/dL Normal 9-24 [facility] Comment on above: Performed By: #### C BCDIF, PT, CMP, NTBNP ####[address] [place] [phone] CBC and Differentialon 12-29 Abs Baso <0.03 Normal <0.11 [facility] Comment on above: Performed By: #### C BCDIF, PT, CMP, NTBNP ####[address] [place] [phone] Abs [place] 0.87 k/uL High <0.87 [facility] Comment on above: Performed By: #### C BCDIF, PT, CMP, NTBNP ####[place] [address] [address] [place] [phone] Abs Neut 3.94 k/uL Normal 1.45-7.50 [facility] Comment on above: Performed By: #### C BCDIF, PT, CMP, NTBNP ####[place] [address] [place] [phone] Absolute nRBC <0.01 Normal <0.01 [facility] Comment on above: Performed By: #### C BCDIF, PT, CMP, NTBNP ####[place] [address] [address]ClevelJason [place] [phone] Basophils/100 WBC Auto (Bld) 0.3 % Normal [facility] Comment on above: Performed By: #### C BCDIF, PT, CMP, NTBNP ####[place] [address]ClevelJason [address] [phone] DTYPE Auto Diff Normal [facility] Comment on above: Performed By: #### C BCDIF, PT, CMP, NTBNP ####[place] [address] [place] [phone] Eosinophils Auto #/vol (Bld) 0.27 10*3/uL Normal <0.46 [facility] Comment on above: Performed By: #### C BCDIF, PT, CMP, NTBNP ####[place] [address]ClevelJason [place] [phone] Eosinophils/100 WBC Auto (Bld) 3.6 % Normal [facility] Comment on above: Performed By: #### C BCDIF, PT, CMP, NTBNP ####[place] [address] [place] [phone] Erythrocyte distribution width Auto Ratio (RBC) 14.1 % Normal 11.5-15.0 [facility] Comment on above: Performed By: #### C BCDIF, PT, CMP, NTBNP ####[place] [address]ClevelJason [place] [phone] Hematocrit Auto Volume Fraction (Bld) 41.3 % Normal 39.0-51.0 [facility] Comment on above: Performed By: #### C BCDIF, PT, CMP, NTBNP ####[place] [address]ClevelJason [address] [phone] Hemoglobin mass conc (Bld) 13.6 g/dL Normal 13.0-17.0 [facility] Comment on above: Performed By: #### C BCDIF, PT, CMP, NTBNP ####[place] [address] [place] [phone] Lymphocytes Auto #/vol (Bld) 2.38 10*3/uL Normal 1.00-4.00 [facility] Comment on above: Performed By: #### C BCDIF, PT, CMP, NTBNP ####[place] [address] [place] [phone] Lymphocytes/100 WBC Auto (Bld) 31.8 % Normal [facility] Comment on above: Performed By: #### C BCDIF, PT, CMP, NTBNP ####[place] [address] [place] [phone] MCH Auto Entitic mass (RBC) 29.2 pG Normal 26.0-34.0 [facility] Comment on above: Performed By: #### C BCDIF, PT, CMP, NTBNP ####[place] [address] [place] [phone] MCHC Auto mass conc (RBC) 32.9 g/dL Normal 30.5-36.0 [facility] Comment on above: Performed By: #### C BCDIF, PT, CMP, NTBNP ####[place] [address] [place] [phone] MCV Auto Entitic volume (RBC) 88.6 fL Normal 80.0-100.0 [facility] Comment on above: Performed By: #### C BCDIF, PT, CMP, NTBNP ####[place] [address] [place] [phone] Monocytes/100 WBC Auto (Bld) 11.6 % Normal [facility] Comment on above: Performed By: #### C BCDIF, PT, CMP, NTBNP ####[place] [address] [address] [place] [phone] Neutrophils/100 WBC Auto (Bld) 52.7 % Normal [facility] Comment on above: Performed By: #### C BCDIF, PT, CMP, NTBNP ####[place] [address]CHappy [place], [place] [phone] NRBCs 0.0 /100 WBC Normal 0 [facility] Comment on above: Performed By: #### C BCDIF, PT, CMP, NTBNP ####[place] [address] [place], [place] [phone] Platelet mean volume Auto Entitic volume (Bld) 10.7 fL Normal 9.0-12.7 [facility] Comment on above: Performed By: #### C BCDIF, PT, CMP, NTBNP ####[address]CHappy [place], [place] [phone] Platelets Auto #/vol (Bld) 120 10*3/uL Low 150-400 [facility] Comment on above: Result Comment: Resu lt checked and verifiedNo clot detected. Performed By: #### C BCDIF, PT, CMP, NTBNP ####[place] [address] [address], [place] [phone] RBC Auto #/vol (Bld) 4.66 10*6/uL Normal 4.20-6.00 [facility] Comment on above: Performed By: #### C BCDIF, PT, CMP, NTBNP ####[place] [address] [address] [place], [place] [phone] WBC Auto #/vol (Bld) 7.49 10*3/uL Normal 3.70-11.00 [facility] Comment on above: Performed By: #### C BCDIF, PT, CMP, NTBNP ####[place] [address] [address] [place], [place] [phone] Lipid Panel, Basicon 018 Cholesterol in HDL mass conc 62 mg/dL Normal >39 [facility] Comment on above: Result Comment: 40-5 9 mg/dL, Acceptable>59 mg/dL, High: Negative risk factor for coronary heart disease<40 mg/dL, Low: Positive risk factor for coronary heart disease Performed By: #### L IPB ####[place] [phone] Cholesterol in LDL mass conc 194 mg/dL High <100 [facility] Comment on above: Result Comment: <100 mg/dL, Optimal 100-129 mg/dL, Near optimal/above optimal 130-159 mg/dL, Borderline high 160-189 mg/dL, High>189 mg/dL, Very highSecondary prevention optimal LDL Cholesterol levels are recommended to be < 70 mg/dL Performed By: #### L IPB ####[place] [phone] Cholesterol mass conc 270 mg/dL High <200 [facility] Comment on above: Result Comment: <200 mg/dL, Desirable 200-239 mg/dL, Borderline high>239 mg/dL, High Performed By: #### L IPB ####[place] [phone] Fasting Time Unknown Normal [facility] Comment on above: Performed By: #### L IPB ####[place] [phone] LDL:HDL Ratio 3.13 High <2.54 [facility] Comment on above: Result Comment: Refe renkenna:1. National Cholesterol Education Program ATP III Guideline At-A-Glance Quick Desk Reference: National Heart, Lung, and Blood [place]. National Institutes of Health. 2001: NIH Publication No. 01-3305.2. An International Atherosclerosis Society position paper: global recommendations for the management of dyslipidemia: executive summary, Atherosclerosis. 2014: 232(2):410-413. Performed By: #### L IPB ####[place] [phone] Non HDL Cholesterol 208 mg/dL High <130 [facility] Comment on above: Result Comment: <130 mg/dL, Optimal 130-159 mg/dL, Near optimal/above optimal 160-189 mg/dL, Borderline high 190-219 mg/dL, High>219 mg/dL, Very highSecondary prevention optimal non HDL Cholesterol levels are recommended to be < 100 mg/dL Performed By: #### L IPB ####[address] [phone] TC:HDL Ratio 4.35 Normal <5.10 [facility] Comment on above: Performed By: #### L IPB ####[address] [phone] Triglyceride mass conc 68 mg/dL Normal <150 [facility] Comment on above: Result Comment: <150 mg/dL, Normal 150-199 mg/dL, Borderline high 200-499 mg/dL, High>499 mg/dL, Very high Performed By: #### L IPB ####[place] [phone] VLDL Cholesterol 14 mg/dL Normal <30 [facility] Comment on above: Performed By: #### L IPB ####[address] [phone] OPERATIVE NOon 12-29-2017 OPERATIVE NO HNO ID: [id number] thor: Valentina Parkerice: Cardiac SurgeryAuthor Type: PhysicianType: Operative ReportFiled: 01/04/2018 7:53 AMNote Text:The [address] [address] or (475) [facility] F I D E N T I A L I N F O R M A T I O N --------STANDARD [facility] DOCUMENTOPERATIVE REPORTPatient Name: Florin Paige of Surgery: 12/27/2017Surgeon Test Bore Helper(s):Maricruz Salter MDAssistant(s):MDs: Rody/PAs:Operations: Transfemoral implantation of aortic [...] radial artery.Over a Whisper J wire, a [place] embolic protection device was deployed.?The 5F sheath [...] the delivery catheter system was removed. The [place] embolicprotection device was removed over the Whisper [...] SIGNED by Licensed Independent Practitioner: MD Shanna [facility] PROGRESSon 12-29-2017 Protein mass conc HNO ID: [id number] thor: Ken Nguyen) SchraiderService: Cardiovascular MedicineAuthor Type: Physician AssistantType: Progress NotesFiled: 12/29/2017 12:55 PMNote Text: HEART and VASCULAR INSTITUTECARDIOVASCULAR MEDICINE PROGRESS NOTE(Template ID [id number])Florin E [id number] SERVICE: Hvi Card InterventionHOSPITAL DAY: # 2INTERVAL [...] 443 ?msReviewed w Dr Jeong AND [facility] CenterJac Vargas is a 77 year old male with a history of hypertension,hyperlipidemia , coronary artery disease s/p CABG 1995 [facility]?([facility]), redo CABG ([facility]) and severe aortic stenosis,for pre-op TAVR with [...] patientCase to be discussed with AUSTIN Velarde-CPager [phone] (please see below for after hours communication)12/29/201712:4 7 PMFor communication after 5 pm on weekdays and after 12 pm on weekends,please page the following:- Clinical Cardiology patients on all floors: page [phone]- Other Cardiology patients on J5 and J6: page [phone]- Other Cardiology patients on J7 and J8: page [phone] Normal [facility] Basic Metabolic Panlon 12-28 Anion gap 3 molar conc 15 mmol/L Normal 05-01 [facility] Comment on above: Performed By: #### C BCDIF, PT, CMP, NTBNP ####[facility] [place], [place] [phone] Calcium mass conc 8.4 mg/dL Low 8.5-10.2 [facility] Comment on above: Performed By: #### C BCDIF, PT, CMP, NTBNP ####[place] [address] [address] [place] [phone] Chloride molar conc 100 mmol/L Normal 97-105 [facility] Comment on above: Performed By: #### C BCDIF, PT, CMP, NTBNP ####[place] [address] [address] [phone] CO2 molar conc 20 mmol/L Low 22-30 [facility] Comment on above: Performed By: #### C BCDIF, PT, CMP, NTBNP ####[place] [address] [address] [place] [phone] Creatinine mass conc 1.01 mg/dL Normal 0.73-1.22 [facility] Comment on above: Performed By: #### C BCDIF, PT, CMP, NTBNP ####[place] [address] [address] [phone] eGFR- Amer. >60 Normal [facility] Comment on above: Performed By: #### C BCDIF, PT, CMP, NTBNP ####[address] [place] [phone] GFR/1.73 sq M predicted among non-blacks MDRD vol rate/area (S/P/Bld) mL/min/{1.73_m2} Normal [facility] Comment on above: Result Comment: eGFR (Estimated [...] By: #### C BCDIF, PT, CMP, NTBNP ####[facility] [place], [place] [phone] Glucose mass conc 89 mg/dL Normal 74-99 [facility] Comment on above: Result Comment: The [place] Diabetes Association (ADA) provides guidance for cutoff [...] Standards of Medical Care in Diabetes 2016, [place] Diabetes Association. Diabetes Care. 2016.39(Suppl 1). Performed By: #### C BCDIF, PT, CMP, NTBNP ####[address] [phone] Potassium molar conc 4.1 mmol/L Normal 3.7-5.1 [facility] Comment on above: Performed By: #### C BCDIF, PT, CMP, NTBNP ####[facility] [place], [place] [phone] Sodium molar conc 135 mmol/L Low 136-144 [facility] Comment on above: Performed By: #### C BCDIF, PT, CMP, NTBNP ####[facility] [place], [place] [phone] Urea nitrogen mass conc 24 mg/dL Normal 9-24 [facility] Comment on above: Performed By: #### C BCDIF, PT, CMP, NTBNP ####[place] [id number] [place], [place] [phone] CASE MGT INIT Peg 2017 CASE MGT INIT EVENS HNO ID: [id number] thor: Danielle (Rn) SHARON Fitzgeraldervice: Care ManagementAuthor Type: Registered NurseType: Care Mgt Initial AssessmentFiled: 12/28/2017 9:48 AMNote Text:CARE MANAGEMENT: ASSESSMENT AND DISCHARGE PLANSERVICE DATE: 12/28/2017SERVICE TIME: 9:44 AMPRIDIAMOND CHILDREN'S MEDICAL CENTERY CARE PHYSICIAN:Pedro Gonzalez [facility] MEDICAL CENTERhone: [phone] STATUS: InpatientMEDICAL:Patient/Re presentative Stated Goals:Return homeHealth Insurance: [facility] Pin-Digital POLICYBreckinridge Memorial HospitalHealth Issues Impacting Discharge Plan: NoneLast [...] Admission: caneHas the Patient Been in a Nursing Home Facility in the Past 30 days? 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 plAlgotochiping storePrimary Contact: Extended Emergency Contact InformationPrimary Emergency Contact: Rachel Vargas Pepkfyvn: SonSupportive: YesOther Important Patient Contacts: NoneCaregiver Assessment:Caregiver [...] - 0I feel financially burdened by my zxp-wo-yjvryb expenses for myprescription medication: Disagree completely - [...] 28, 2017 : 9:44 AM PAGER/CONTACT #: [phone] Normal [facility] CBCon 12-28-2017 Absolute nRBC <0.01 Normal <0.01 [facility] Comment on above: Performed By: #### C BCDIF, PT, CMP, NTBNP ####[facility] [place], [place] [phone] Erythrocyte distribution width Auto Ratio (RBC) 13.6 % Normal 11.5-15.0 [facility] Comment on above: Performed By: #### C BCDIF, PT, CMP, NTBNP ####[facility] [place], [place] [phone] Hematocrit Auto Volume Fraction (Bld) 38.4 % Low 39.0-51.0 [facility] Comment on above: Performed By: #### C BCDIF, PT, CMP, NTBNP ####[place] [phone] Hemoglobin mass conc (Bld) 13.0 g/dL Normal 13.0-17.0 [facility] Comment on above: Performed By: #### C BCDIF, PT, CMP, NTBNP ####[place] [phone] MCH Auto Entitic mass (RBC) 29.6 pG Normal 26.0-34.0 [facility] Comment on above: Performed By: #### C BCDIF, PT, CMP, NTBNP ####[address] [phone] MCHC Auto mass conc (RBC) 33.9 g/dL Normal 30.5-36.0 [facility] Comment on above: Performed By: #### C BCDIF, PT, CMP, NTBNP ####[place] [phone] MCV Auto Entitic volume (RBC) 87.5 fL Normal 80.0-100.0 [facility] Comment on above: Performed By: #### C BCDIF, PT, CMP, NTBNP ####[place] [phone] Platelet mean volume Auto Entitic volume (Bld) 10.5 fL Normal 9.0-12.7 [facility] Comment on above: Performed By: #### C BCDIF, PT, CMP, NTBNP ####[place] [phone] Platelets Auto #/vol (Bld) 135 10*3/uL Low 150-400 [facility] Comment on above: Result Comment: Resu lt checked and verifiedNo clot detected. Performed By: #### C BCDIF, PT, CMP, NTBNP ####[address] [phone] RBC Auto #/vol (Bld) 4.39 10*6/uL Normal 4.20-6.00 [facility] Comment on above: Performed By: #### C BCDIF, PT, CMP, NTBNP ####[facility] [place], [place] [phone] WBC Auto #/vol (Bld) 7.70 10*3/uL Normal 3.70-11.00 [facility] Comment on above: Performed By: #### C BCDIF, PT, CMP, NTBNP ####[facility] [place], [place] [phone] CNDSon 12-28-2017 CNDS HNO ID: [id number] thor: Ladarius Velazquezervice: Cardiovascular MedicineAuthor Type: PhysicianType: Discharge SummariesFiled: 01/01/2018 8:28 AMNote Text:Department of Cardiovascular MedicineDischarge Summary (Template ID [id number]) Pat ient Name: Florin VargasPatient Date: 12/27/2017Discharge [...] , coronary artery disease [facility] ([facility]) and severe aortic stenosis,who presents today for [...] succinate ER (TOPROL XL) 25 mgComments:Reason for Stopping:Dknra-1-VLN-EPA-Fi sh Oil 1,200 (144-216) mg capComments:Reason for Stopping:Outpatient Management:* Are there important medication changes and/or outstanding issues thatneed to be addressed: None* What is the plan for follow up:Future Appointments:Future AppointmentsDate Time Provider Department Center01/12/2018 12:10 PM 6515-LBJ1-4 MAIN LBJ1-4 CARD J BLD01/12/2018 12:30 PM 342201-QNNY9-4 MAIN EKGF16 CARD J BLD01/12/2018 1:00 PM 2579-BHARGAV BECERRIL ([place]) CATHMN TRINH J BLDElectronically SIGNED by Licensed Independent Practitioner: Ken Hinds PA-C Normal [facility] Differential ([facility] LAB USE ON LY)on 12-28-2017 Abs Baso <0.03 Normal <0.11 [facility] Comment on above: Performed By: #### C BCDIF, PT, CMP, NTBNP ####[facility] [address] AveCH[address] [place], [place] [phone] Abs [place] 0.78 k/uL Normal <0.87 [facility] Comment on above: Performed By: #### C BCDIF, PT, CMP, NTBNP ####[facility] [address] AveCHappy [place], [place] [phone] Abs Neut 5.53 k/uL Normal 1.45-7.50 [facility] Comment on above: Performed By: #### C BCDIF, PT, CMP, NTBNP ####[facility] [address] AveCHappy [place], [place] [phone] Basophils/100 WBC Auto (Bld) 0.3 % Normal [facility] Comment on above: Performed By: #### C BCDIF, PT, CMP, NTBNP ####[facility] [address]CH[address] [place], [place] [phone] Eosinophils Auto #/vol (Bld) 0.08 10*3/uL Normal <0.46 [facility] Comment on above: Performed By: #### C BCDIF, PT, CMP, NTBNP ####[place] [address] [address] [place] [phone] Eosinophils/100 WBC Auto (Bld) 1.0 % Normal [facility] Comment on above: Performed By: #### C BCDIF, PT, CMP, NTBNP ####[place] [address] [address] [place] [phone] Lymphocytes Auto #/vol (Bld) 1.45 10*3/uL Normal 1.00-4.00 [facility] Comment on above: Performed By: #### C BCDIF, PT, CMP, NTBNP ####[place] [address] [address] [place] [phone] Lymphocytes/100 WBC Auto (Bld) 18.4 % Normal [facility] Comment on above: Performed By: #### C BCDIF, PT, CMP, NTBNP ####[place] [address] [address] [place] [phone] Monocytes/100 WBC Auto (Bld) 9.9 % Normal [facility] Comment on above: Performed By: #### C BCDIF, PT, CMP, NTBNP ####[place] [address] [address] [place] [phone] Neutrophils/100 WBC Auto (Bld) 70.4 % Normal [facility] Comment on above: Performed By: #### C BCDIF, PT, CMP, NTBNP ####[address] [phone] NURSING PROGon 12-28-2017 Protein mass conc HNO ID: [id number] thor: Eli (Rn) Alanya RNService: (none)Author Type: Registered NurseType: Nursing Progress NoteFiled: 12/28/2017 9:38 AMNote Text: Nursing Progress NotePatient Name: Florin VargasMRN: [id number] Location: [place] [address]S4-6-66 Tr ansfer Note:Patient transferred into room/unit J72 bed 8 in stable condition.Actions taken: Oriented pt to room and unit protocols. Dual skin checkperformed with Celena Minor RN. Falls video unavailable at this time. Nofuther actions taken at this time. Will continue to monitor and checkwith patient.This note was completed by: Eli Orellana RN Normal [facility] PROGRESSon 12-28-2017 Protein mass conc HNO ID: [id number] thor: Ken Nguyen) SchraiderService: Cardiovascular MedicineAuthor Type: Physician AssistantType: Progress NotesFiled: 12/29/2017 12:45 PMNote Text: HEART and VASCULAR INSTITUTECARDIOVASCULAR MEDICINE PROGRESS NOTE(Template ID [id number])Florin [id number] SERVICE: Hvi Card InterventionHOSPITAL DAY: # 2INTERVAL [...] s/p CABG 1995 GRAJEDA-LAD?([facility]), redo CABG ([facility]) and severe aortic stenosis,for pre-op TAVR with [...] Disease) - History of CABG 1995 GRAJEDA-LAD ([facility]), redo CABG ([facility])- Status post successful PCI to the ostial, proximal, and mid-distal RCAwith a 4.0/12 mm Synergy EES, and 4.0/38 mm Synergy EES, and a 3.5/38 mmSynergy EES on 11/22/17.-continue aspirin, plavixLate entry.Pt seen and examined at 1300 12/28/17Case to be discussed with AUSTIN Velarde-CPager [phone] (please see below for after hours communication)12/28/20171300 For communication after 5 pm on weekdays and after 12 pm on weekends,please page the following:- Clinical Cardiology patients on all floors: page [phone]- Other Cardiology patients on J5 and J6: page [phone]- Other Cardiology patients on J7 and J8: page [phone] Normal [facility] Protein mass conc HNO ID: [id number] thor: GENE Cobbervice: Cardiovascular MedicineAuthor Type: PhysicianType: [...] 38.4* 42.4PLT 135* 173CREAT 1.01 1.01EKG: Sinus OK 190 QRS 90Assessment and Plan:77 year old male with severe aortic stenosis status post transfemoral TAVRwith a 26 mm Buckley Jennifer S3 valve1. Aspirin 81 mg daily2. Clopidogrel 75 mg daily3. Cephalexinprophylaxis x 5 days4. Echo today5. Transfer to [facility]6. Metoprolol on hold while we watch his conduction on telemetryPlease don't hesitate to contact me with any questions or concerns.JOHANA De Leonager: [phone] Cardiology Normal [facility] ANES Rylee 12-27-2017 ANES POST HNO ID: [id number] thor: Elaina Bauer: AnesthesiologyAuthor Type: AnesthesiologistType: Anesthesia PostOpFiled: 12/27/2017 5:36 PMNote Text:CT Anesthesia Postoperative Note: Patient is s/p TAVR under monitoredanesthesia care. He tolerated the procedure uneventfully and wastransferred to the recovery area sleepy but arousable and with noimmediate complaint of pain/nausea/vomiting. BP 117/57, HR 47, RR 14, TfA5163%, T 36.1, hydration status adequate. There are no adverse anestheticevents to report at present time. Normal [facility] PT EDon 12-27-2017 PT ED HNO ID: [id number] thor: Heidi (Rn) Doehring, RNService: (none)Author Type: Registered NurseType: Patient EducationFiled: 12/27/2017 6:28 AMNote Text:PRE OP LEARNING ASSESSMENTPROCEDURE/SURGERY : TAVRREADINESS TO LEARNCOGNITIVE ABILITY: Alert and orientedMOTIVATION TO LEARN: InterestedFAMILY SUPPORT: High - Very involved in pt carePATIENT LEARNS BEST BY: Multiple MethodsFACTORS AFFECTING LEARNING: NonePHYSICAL LIMITATIONS AFFECTING LEARNING: Sensory Deficit Sight: CorrectivelensesElectronica lly Signed By: Heidi Murdock RN In Department: [id number] Normal [facility] CBC and Differentialon 12-26 Abs Baso <0.03 Normal <0.11 [facility] Comment on above: Performed By: #### C BCDIF, PT, CMP, NTBNP ####[facility] [place] [phone] Abs [place] 0.49 k/uL Normal <0.87 [facility] Comment on above: Performed By: #### C BCDIF, PT, CMP, NTBNP ####[facility] [address]zbj[address] AveCBr[address] [place] [phone] Abs Neut 3.04 k/uL Normal 1.45-7.50 [facility] Comment on above: Performed By: #### C BCDIF, PT, CMP, NTBNP ####[facility] Nutxfg[address]pi[address] AveCBr[address] [place] [phone] Absolute nRBC <0.01 Normal <0.01 [facility] Comment on above: Performed By: #### C BCDIF, PT, CMP, NTBNP ####[facility] [address]wh[address]hc[address] AveCBr[address] [place] [phone] Basophils/100 WBC Auto (Bld) 0.3 % Normal [facility] Comment on above: Performed By: #### C BCDIF, PT, CMP, NTBNP ####[facility] [place] [phone] DTYPE Auto Diff Normal [facility] Comment on above: Performed By: #### C BCDIF, PT, CMP, NTBNP ####[place] [address] [address] [place] [phone] Eosinophils Auto #/vol (Bld) 0.13 10*3/uL Normal <0.46 [facility] Comment on above: Performed By: #### C BCDIF, PT, CMP, NTBNP ####[place] [address] [address] [place] [phone] Eosinophils/100 WBC Auto (Bld) 2.1 % Normal [facility] Comment on above: Performed By: #### C BCDIF, PT, CMP, NTBNP ####[place] [address] [address] [place] [phone] Erythrocyte distribution width Auto Ratio (RBC) 14.0 % Normal 11.5-15.0 [facility] Comment on above: Performed By: #### C BCDIF, PT, CMP, NTBNP ####[place] [address] [address] [place] [phone] Hematocrit Auto Volume Fraction (Bld) 42.4 % Normal 39.0-51.0 [facility] Comment on above: Performed By: #### C BCDIF, PT, CMP, NTBNP ####[place] [address] [address] [place] [phone] Hemoglobin mass conc (Bld) 13.7 g/dL Normal 13.0-17.0 [facility] Comment on above: Performed By: #### C BCDIF, PT, CMP, NTBNP ####[place] [address] [address] [place] [phone] Lymphocytes Auto #/vol (Bld) 2.35 10*3/uL Normal 1.00-4.00 [facility] Comment on above: Performed By: #### C BCDIF, PT, CMP, NTBNP ####[place] [address] [address] [place] [phone] Lymphocytes/100 WBC Auto (Bld) 38.8 % Normal [facility] Comment on above: Performed By: #### C BCDIF, PT, CMP, NTBNP ####[address] [place] [phone] MCH Auto Entitic mass (RBC) 29.5 pG Normal 26.0-34.0 [facility] Comment on above: Performed By: #### C BCDIF, PT, CMP, NTBNP ####[address] [place] [phone] MCHC Auto mass conc (RBC) 32.3 g/dL Normal 30.5-36.0 [facility] Comment on above: Performed By: #### C BCDIF, PT, CMP, NTBNP ####[address]ri[address]ille [phone] MCV Auto Entitic volume (RBC) 91.4 fL Normal 80.0-100.0 [facility] Comment on above: Performed By: #### C BCDIF, PT, CMP, NTBNP ####[place] [address] [address] [place] [phone] Monocytes/100 WBC Auto (Bld) 8.1 % Normal [facility] Comment on above: Performed By: #### C BCDIF, PT, CMP, NTBNP ####[address] [place] [phone] Neutrophils/100 WBC Auto (Bld) 50.7 % Normal [facility] Comment on above: Performed By: #### C BCDIF, PT, CMP, NTBNP ####[place] [address] [address] [place] [phone] NRBCs 0.0 /100 WBC Normal 0 [facility] Comment on above: Performed By: #### C BCDIF, PT, CMP, NTBNP ####[facility], [place] [phone] Platelet mean volume Auto Entitic volume (Bld) 10.8 fL Normal 9.0-12.7 [facility] Comment on above: Performed By: #### C BCDIF, PT, CMP, NTBNP ####[facility] [place], [place] [phone] Platelets Auto #/vol (Bld) 173 10*3/uL Normal 150-400 [facility] Comment on above: Performed By: #### C BCDIF, PT, CMP, NTBNP ####[address] [place], [place] [phone] RBC Auto #/vol (Bld) 4.64 10*6/uL Normal 4.20-6.00 [facility] Comment on above: Performed By: #### C BCDIF, PT, CMP, NTBNP ####[address] AvF[place], [place] [phone] WBC Auto #/vol (Bld) 6.05 10*3/uL Normal 3.70-11.00 [facility] Comment on above: Performed By: #### C BCDIF, PT, CMP, NTBNP ####[facility] [place], [place] [phone] CNOVon 12-26-2017 CNOV Office Visit (CARTMN) -------FLORIN VARGAS ([id number]) 1940 MDate Time Provider Department12/26/17 3:30 PM [...] hypertension, hyperlipidemia, coronary artery disease s/pCABG 1995 GRAJEDA-LAD?([facility]), redo CABG ([facility]) and severe aorticstenosis, who presents today for pre-op TAVR. Pt also had PCI w/ ENE x 3 to [facility] in 11/2017.PAST MEDICAL HISTORYDiagnosis Date- Aortic stenosis- [...] demonstrated severedisease at the ostium. We then wwnytvl-dix-tsrdffq with a 4.0/20 mm NC at 16-18atm [...] EC tablet Take 81 mg bymouth once daily.Ixftn-5-ZKJ-EPA-Fish Oil 1,200 (144-216) mg cap Take by [...] [I35.0]Order(s):PREOP RED BLOOD CELLS [SQPRERC] Order #: [id number] as of 12/26/2017 Sig: ISOSORBIDE MONONITRATE ER 30 * Take 1 tablet by mouth once d* METOPROLOL SUCCINATE ER 50 MG* Take 25 mg by mouth once angeles* ASPIRIN 81 MG TABLET,DELAYED * Take 81 mg by mouth once angeles* OMEGA 1-ILM-JAY-FISH OIL 1,20* Take by mouth twice daily. CLOPIDOGREL 75 MG TABLET Take 75 mg by mouth once angeles*Problem List As Of Date 12/26/2017 Noted Resolved CAD (coronary artery disease) [I25.10] More... Aortic stenosis [I35.0] More... Status:Closed by JOSE CRUZ MENDEZ DO on 12/26/17 Normal [facility] CNOV Office Visit (CATHMN) -------FLORIN VARGAS ([id number]) 1940 MDate Time Provider Department12/26/17 11:00 AM BHARGAV BECERRIL ([place]) CATHMN During your visit today, we recorded the following information about you: Pulse Blood pressure Weight Height 56/minute 140/64 83 kg 1.676 mLisa LEXUS Becerril 12/26/2017 4:50 PM [facility]Robert [facility] Department of Cardiovascular MedicineSECTION OF INTERVENTIONAL CARDIOLOGYOUTPATIENT VISIT DATE December 26, 2017OUTPATIENT VISIT TYPEESTABLISHEDPRIMARY CARE PHYSICIAN:Pedro Gonzalez MD ([facility])[address] [place] [address]8425Owdzl: [phone]: [phone] COMPLAINT:Patient presents with:Valvular Heart DiseaseHISTORY OF PRESENT ILLNESS:Mr. Vargas is a 77 year old male with a history of hypertension,hyperlipidemia , coronary artery disease s/p CABG 1995 GRAJEDA-LAD ([facility]),redo CABG ([facility]) and severe aortic stenosis,who presents today for pre-op TAVR with Dr. Cancino 12/27/17.He was doing well since his his last CABG in 2001. In the last 6 months he hashad symptoms of SOB and chest pain which prompted a stress test evaluation.Given these symtpoms, a stress test in July 2017 could not necessarily ruleout [place] ischemia.?He had a stress test in July [...] EC tablet Take 81 mg bymouth once daily.Vxhsv-6-QUV-EPA-Fish Oil 1,200 (144-216) mg cap Take by [...] 1.00 - 4.00 k/uL 2.35Mono% % 8.1Abs [place] <0.87 k/uL 0.49Eosin% % 2.1Abs Eosin <0.46 [...] coronary artery disease s/p CABG 1995 GRAJEDA-LAD ([facility]),redo CABG (2001 [facility]) and severe aortic stenosis,who presents today for [...] 22 mmHg andthe dimensionless valve index is 0.23.[facility] IIBNP: 2509- Continue aspirin, Plavix, MetoprololTF TAVR 12/27/17, Pre-op instructions provided, instructed to arrive at 6:15 am,Consent obtained by Fellow.(I25.10) Coronary artery disease involving [place] coronary artery of nativeheart without angina pectoris- History of CABG 1995 GRAJEDA-LAD ([facility]), redo CABG (2001 [facility])- Status post successful PCI to the ostial, [...] with more than 50% of the total qfyy-iy-zntynkei of the visit in counseling / coordination of care.AUSTIN Joel-CReferring Provider: FAROOQ VILLA [953]Allergies As of Date: 12/26/2017(No Known Allergies)Date Reviewed: 12/26/2017Reviewed by: Bhargav Becerril (Pa) - Fully AssessedReason for Visit: Valvular Heart Disease [169]Primary Visit Diagnosis:Nonrheumatic aortic valve stenosis [I35.0] Other Visit Diagnoses:Coronary artery disease involving [place] coronary artery of [place] heart without angina pectoris [I25.10] Essential hypertension [I10] Hyperlipidemia, unspecified hyperlipidemia type [E78.5]Prescriptions as of 12/26/2017 Sig: METOPROLOL SUCCINATE ER 50 MG* Take 25 mg by mouth once angeles* ASPIRIN 81 MG TABLET,DELAYED * Take 81 mg by mouth once angeles* OMEGA 3-ICP-QQH-FISH OIL 1,20* Take by mouth twice daily. [...] Dr. Cancino.Follow-up and Disposition History RecordedEncounter Number: [id number] Status:Closed by BHARGAV BECERRIL PA-C on 12/26/17 Normal [facility] Comp Metabolic Panelon 12-26 Albumin mass conc 4.0 g/dL Normal 3.9-4.9 [facility] Comment on above: Performed By: #### C BCDIF, PT, CMP, NTBNP ####[address] [phone] ALP enzyme act/vol 81 U/L Normal 36-108 [facility] Comment on above: Performed By: #### C BCDIF, PT, CMP, NTBNP ####[address] [phone] ALT enzyme act/vol 14 U/L Normal 10-54 [facility] Comment on above: Performed By: #### C BCDIF, PT, CMP, NTBNP ####[address] [phone] Anion gap 3 molar conc 11 mmol/L Normal 9-18 [facility] Comment on above: Performed By: #### C BCDIF, PT, CMP, NTBNP ####[address] [phone] AST enzyme act/vol 21 U/L Normal 14-40 [facility] Comment on above: Performed By: #### C BCDIF, PT, CMP, NTBNP ####[place] [address] [address] [place] [phone] Bilirubin mass conc 0.8 mg/dL Normal 0.2-1.3 [facility] Comment on above: Performed By: #### C BCDIF, PT, CMP, NTBNP ####[place] [address] [address]CThe[address] [place] [phone] Calcium mass conc 9.4 mg/dL Normal 8.5-10.2 [facility] Comment on above: Performed By: #### C BCDIF, PT, CMP, NTBNP ####[address] Av[address] [place] [phone] Chloride molar conc 103 mmol/L Normal 97-105 [facility] Comment on above: Performed By: #### C BCDIF, PT, CMP, NTBNP ####[place] [address] [address] Av[address] [place] [phone] CO2 molar conc 25 mmol/L Normal 22-30 [facility] Comment on above: Performed By: #### C BCDIF, PT, CMP, NTBNP ####[place] [address] [phone] Creatinine mass conc 1.01 mg/dL Normal 0.73-1.22 [facility] Comment on above: Performed By: #### C BCDIF, PT, CMP, NTBNP ####[place] [address] [address]CCh[address] [place] [phone] eGFR- Amer. >60 Normal [facility] Comment on above: Performed By: #### C BCDIF, PT, CMP, NTBNP ####[place] [address] [address] [place] [phone] GFR/1.73 sq M predicted among non-blacks MDRD vol rate/area (S/P/Bld) mL/min/{1.73_m2} Normal [facility] Comment on above: Result Comment: eGFR (Estimated [...] By: #### C BCDIF, PT, CMP, NTBNP ####[facility] [place], [place] [phone] Glucose mass conc 91 mg/dL Normal 74-99 [facility] Comment on above: Result Comment: The [place] Diabetes Association (ADA) provides guidance for cutoff [...] Standards of Medical Care in Diabetes 2016, [place] Diabetes Association. Diabetes Care. 2016.39(Suppl 1). Performed By: #### C BCDIF, PT, CMP, NTBNP ####[facility] [address] [place], [place] [phone] Potassium molar conc 5.7 mmol/L High 3.7-5.1 [facility] Comment on above: Performed By: #### C BCDIF, PT, CMP, NTBNP ####[facility]appy [place], [place] [phone] Protein mass conc 7.3 g/dL Normal 6.3-8.0 [facility] Comment on above: Performed By: #### C BCDIF, PT, CMP, NTBNP ####[facility] [place], [place] [phone] Sodium molar conc 139 mmol/L Normal 136-144 [facility] Comment on above: Performed By: #### C BCDIF, PT, CMP, NTBNP ####[facility] [place], [place] [phone] Urea nitrogen mass conc 20 mg/dL Normal 9-24 [facility] Comment on above: Performed By: #### C BCDIF, PT, CMP, NTBNP ####[address] [phone] Confirm Blood Typeon 018 ABO/RH(D) Positive Normal [facility] Comment on above: Performed By: #### C BCDIF, PT, CMP, NTBNP ####[place] [address] [place], [place] [phone] NT Pro BNPon 12-26-2017 Protein mass conc 2509 pg/mL High <450 [facility] Comment on above: Performed By: #### C BCDIF, PT, CMP, NTBNP ####[facility] [place] [address] [phone] PROGRESSon 12-26-2017 Protein mass conc HNO ID: [id number] thor: Jose Cruz Alves (Fel): (none)Author Type: [...] hypertension, hyperlipidemia, coronary artery diseases/p CABG 1995 [facility]AD[facility] ([facility]) and severeaortic stenosis, who presents today for [...] This demonstratedseveredisease at the ostium. We then uivufwt-laj-estkbel with a 4.0/20 mm NC [id number] for several overlapping inflations. We then stented [...] EC tablet Take 81mg by mouth once daily.Gldgd-7-VCI-EPA-Fish Oil 1,200 (144-216) mg cap Take by [...] 2017 : 12:15 PM PAGER/CONTACT #: Normal [facility] Protein mass conc HNO ID: [id number] thor: Odell Anglin: (none)Author Type: (none)Type: Progress NotesFiled: 12/26/2017 9:51 AMNote Text: Radiology Service Progress NotePATIENT NAME: Florin VargasMRN: [id number] OF SERVICE: December 26, 2017TIME: 9:51 AMPATIENT IDENTITY VERIFICATION COMPLETED USING TWO (2) METHODS: Patientconfirmed name verbally and Date of .PATIENT GENDER DATA: MalePATIENT RELEVANT IMPLANT DATA REVIEWED: YesRADIOLOGY DEPARTMENT: General X-ray: Exam(s) Completed: Chest X-RayPERIPHERAL IV DATA: Not applicableSIGNED BY: Duane Liang RtMa2017 9:51 AM Normal [facility] Protein mass conc HNO ID: [id number] thor: Bhargav Nguyen) ReeseoneService: (none)Author Type: Physician AssistantType: Progress NotesFiled: 12/26/2017 4:50 PMNote Text:[facility] Vascular InstituteMarciano and Ashley Lay Department of Cardiovascular MedicineSECTION OF INTERVENTIONAL CARDIOLOGYOUTPATIENT VISIT DATE December 26, 2017OUTPATIENT VISIT TYPEESTABLISHEDPRFORMERLY [facility] COUNTYRY CARE PHYSICIAN:Pedro Gonzalez MD ([facility])[address] [place] [address]40[address]Wfeco: [phone]: [phone] COMPLAINT:Patient presents with:Valvular Heart DiseaseHISTORY OF PRESENT [...] in July 2017 could not necessarilyrule out IN ischemia.?He had a stress test in July [...] EC tablet Take 81mg by mouth once daily.Szhfg-6-DZU-EPA-Fish Oil 1,200 (144-216) mg cap Take by [...] 1.00 - 4.00 k/uL 2.35Mono% % 8.1Abs [place] <0.87 k/uL 0.49Eosin% % 2.1Abs Eosin <0.46 [...] is 22mmHg andthe dimensionless valve index is 0.23.[facility] IIBNP: 2509- Continue aspirin, Plavix, MetoprololTF TAVR 12/27/17, Pre-op instructions provided, instructed to arrive at6:15 am, Consent obtained by Fellow.(I25.10) Coronary artery disease involving [place] reg[place] coronary artery ofnative heart without angina pectoris- [...] visit, with more than 50% of the cvleenhkd-tv-exkl time of the visit in counseling / coordination of care.Bhargav Becerril PA-C Normal [facility] Type and SCR (30D)on 018 ABO/RH(D) Positive Normal [facility] Comment on above: Performed By: #### C BCDIF, PT, CMP, NTBNP ####[facility] [address] AvFalling [place], [place] [phone] Antibody Screen Negative Normal [facility] Comment on above: Performed By: #### C BCDIF, PT, CMP, NTBNP ####[facility] Centpydyxhn[address] [place], [place] [phone] XR CHEST 2V FRONTAL/LATon XR CHEST 2V [...] right sided coronary artery stent/stents. Status post CABG.Agricultural Plow Operator: JOSE ARMANDO Transcribe Date/Time: Dec 26 2017 2:53PDictated by : GADIEL TERRELL MDThis examination was interpreted and the report reviewed and electronically signed by: GADIEL TERRELL MD on Dec 26 2017 2:57PM [id number] Normal [facility] CNPNon 12-22-2017 CNPN Telephone (CATHMN) -------TIAN,JONAS E ([id number]) 1940 MDate Time Provider Department12/22/17 MELODIE GUZMAN ([facility]) CATHMN During your visit today, we recorded the following information about you:Melodie Guzman ([facility]) 12/22/2017 11:17 AM SignedCalled the Florin Vargas home number to discuss a TAVR procedure date fornext week. No answer. VMX left to call back.Melodie Guzman ([facility]) 12/22/2017 1:38 PM SignedReceived returned call from Mrs Florin Vargas. Offered TAVR proceduredate 12/27/17 (pre op 12/26/17). She and her wish to proceed withscheduling.Request has been sent to the surgical scheduler to arrange an appointment schedule.Patient is [...] 81 mg by mouth once angeles* OMEGA 4-TFS-BOW-FISH OIL 1,20* Take by mouth twice daily. CLOPIDOGREL 75 MG TABLET Take 75 mg by mouth once angeles*Problem List As Of Date 12/22/2017 Noted Resolved CAD (coronary artery disease) [I25.10] Aortic stenosis [I35.0] Status:Closed by MELODIE BROWN RN on 12/22/17 [facility] 12-22-2017 HOSP Patient:Florin Vargas EMRN: Height:5' 6(1.676 m)Weight:183 lb (83.008 kg)Outpatient Medications as of 12/27/17:isosorbide mononitrate ER (IMDUR) 30 mg 24 hr tabletmetoprolol succinate ER (TOPROL XL) 50 mg 24 hr tabletaspirin, enteric coated (ASPIRIN, ENTERIC COATED) 81 mg EC zkwzmqTxjoo-9-PHV-EPA-Fish Oil 1,200 (144-216) mg capclopidogrel (PLAVIX) 75 mg tabletAdmission/Clinic Administered Medications as of 12/27/17:Patient has no admission medications.Problem List:CAD (coronary artery disease) [I25.10]Aortic stenosis [I35.0]Allergies:No Known AllergiesDate Verified:12/27/17Lab ValuesLab Value Units Date High LowPOTA* 5.7 mmol/L 12/26/2017 5.1 3.7HEMA* 42.4 % 12/26/2017 51.0 39.0Progress Notes ([facility] MAIN J):Duane Liang Rt 12/26/2017 9:51 AM Signed Radiology Service Progress NotePATIENT NAME: Florin VargasMRN: [id number] OF SERVICE: December 26, 2017TIME: 9:51 AMPATIENT IDENTITY VERIFICATION COMPLETED USING TWO (2) METHODS: Patientconfirmed name verbally and Date of .PATIENT GENDER DATA: MalePATIENT RELEVANT IMPLANT DATA REVIEWED: YesRADIOLOGY DEPARTMENT: General X-ray: Exam(s) Completed: Chest X-RayPERIPHERAL IV DATA: Not applicableSIGNED BY: Duaen Liang RtMa2017 9:51 AMProgress Notes ([facility]):Jose Cruz Mendez DO 12/26/2017 [...] of hypertension, hyperlipidemia, coronary artery disease s/p [id number] GRAJEDA-LAD?([facility]), redo CABG ([facility]) and severe aorticstenosis, who presents today for pre-op TAVR. Pt also had PCI w/ ENE x 3 to [facility] in 11/2017.PAST MEDICAL HISTORYDiagnosis Date- Aortic stenosis- [...] demonstrated severedisease at the ostium. We then kgbxxpu-wyi-ibzvbrr with a 4.0/20 mm NC at 16-18atm [...] EC tablet Take 81 mg bymouth once daily.Oenkw-8-XAF-EPA-Fish Oil 1,200 (144-216) mg cap Take by [...] 2017 : 12:15 PM PAGER/CONTACT #: Jonel [facility] Wolfgang 12-21-2017 CN Office Visit (TOMASA) -------TIAN,JONAS E ([id number]) 1940 MDate Time Provider Department12/21/17 12:15 PM LADARIUS CANCINO During your visit today, we recorded the following information about you: Pulse Respiration Blood pressure Weight 55/minute 14/minute 120/61 84.6 kg Height 1.676 Kavita Cancino MD 12/27/2017 6:03 PM [facility] Department of Cardiovascular MedicineSECTION OF INTERVENTIONAL CARDIOLOGYOUTPATIENT VISIT DATE December 21, 2017OUTPATIENT VISIT TYPEESTABLISHEDPRIMARY CARE PHYSICIAN:Pedro Gonzalez MD ([facility])[address] [place] [address] 14153Nsnmj: [phone]: [phone] COMPLAINT:Patient presents with:Hospital F/U: Nonrheumatic aortic valve [...] EC tablet Take 81 mg bymouth once daily.Wtjkd-7-KAV-EPA-Fish Oil 1,200 (144-216) mg cap Take by [...] sincerely,Wilton Cancino M.D.CONTACT INFORMATION:Referring Provider: LADARIUS CANCINO [[id number]]Allergies As of Date: 12/21/2017(No Known Allergies)Date Reviewed: 12/21/2017Reviewed by: Octavia Alexander) BETTINA Guerrero - Fully AssessedReason for Visit: Hospital F/U [57] Cmt: Nonrheumatic aortic valve stenosisPrimary Visit Diagnosis:Aortic valve disorder [I35.9] Other Visit Diagnosis:Nonrheumatic aortic valve stenosis [I35.0]Order(s):ECG COMPLETE W INTERPRETATION [ECG01] Order #: [id number] FUTURE XR CHEST 2V FRONTAL/LAT [8623076] Order #: [id number] FUTURE ECHO TRANSESOPHAGEAL [26951195] Order #: [id number]: 1 FUTURE TYPE + SCREEN,30 DAY [DVNPLC44] Order #: [id number] FUTURE NT PRO BNP [SQNTBNP] Order #: [id number] FUTURE CBC + DIFF [SQCBCDIF] Order #: [id number] FUTURE COMP METABOLIC PANEL [SQCMP] Order #: [id number] FUTURE CONFIRM BLOOD TYPE [SQCONABO] Order #: [id number] FUTUREPrescriptions as of 12/21/2017 Sig: METOPROLOL SUCCINATE ER 50 MG* Take 25 mg by mouth once angeles* ASPIRIN 81 MG TABLET,DELAYED * Take 81 mg by mouth once angeles* OMEGA 6-BHD-RSM-FISH OIL 1,20* Take by mouth twice daily. [...] care Disc: Course of therapy completedEncounter Number: [id number] Status:Closed by LADARIUS CANCINO on 12/27/17 Normal [facility] PROGRESSon 12-21-2017 Protein mass conc HNO ID: [id number] thor: Ladarius Velazquezervice: (none)Author Type: PhysicianType: Progress NotesFiled: 12/27/2017 6:03 PMNote Text:[facility] and Vascular InstituteSouth Charleston and Ashley Lay Department of Cardiovascular MedicineSECTION OF INTERVENTIONAL CARDIOLOGYOUTPATIENT VISIT DATE December 21, 2017OUTPATIENT VISIT TYPEESTABLISHEDPRIMARY CARE PHYSICIAN:Pedro Gonzalez MD ([facility])[address] [place] [address] 76636Wdjzn: [phone]: [phone] COMPLAINT:Patient presents with:Hospital F/U: Nonrheumatic aortic valve [...] EC tablet Take 81mg by mouth once daily.Jxpnh-7-DKG-EPA-Fish Oil 1,200 (144-216) mg cap Take by [...] are agreeable.Yours sincerely,Wilton Cancino M.D.CONTACT INFORMATION: Normal [facility] CNCOon 11-29-2017 CNCO Letter TextApril 2017Florin Vargas[address] [facility] [address]Tqss Mr. Vargas,The nurses and staff of J7-2 nursing unit at [facility] hope thisletter finds you feeling well and [...] free to contact me, Wisam Harmon RN [phone] or e-mail [email or web address].Additionall y, you will receive a survey in the mail asking you to rate thecare you received while in the hospital. Please take the time to completeand send back the survey. I personally review all the results and wouldappreciate your feedback. Please consider completing this survey for eachindividual visit.Thank you in advance for your participation and thank you [facility].Sincerely,Wisam Harmon RNNurse ManagerJ7-2 Cardiology Step-down Unit Normal [facility] Basic Metabolic Panlon 11-23 Anion gap 3 molar conc 12 mmol/L Normal 9-18 [facility] Comment on above: Performed By: #### C BCDIF, PT, CMP, NTBNP ####[place] [phone] Calcium mass conc 8.7 mg/dL Normal 8.5-10.2 [facility] Comment on above: Performed By: #### C BCDIF, PT, CMP, NTBNP ####[place] [phone] Chloride molar conc 101 mmol/L Normal 97-105 [facility] Comment on above: Performed By: #### C BCDIF, PT, CMP, NTBNP ####[place] [phone] CO2 molar conc 24 mmol/L Normal 22-30 [facility] Comment on above: Performed By: #### C BCDIF, PT, CMP, NTBNP ####[place] [address] [address] Av[place]ri[address] [place] [phone] Creatinine mass conc 0.97 mg/dL Normal 0.73-1.22 [facility] Comment on above: Performed By: #### C BCDIF, PT, CMP, NTBNP ####[address] Av[address]ri[address] Ville [phone] eGFR- Amer. >60 Normal [facility] Comment on above: Performed By: #### C BCDIF, PT, CMP, NTBNP ####[facility] [place], [place] [phone] GFR/1.73 sq M predicted among non-blacks MDRD vol rate/area (S/P/Bld) mL/min/{1.73_m2} Normal [facility] Comment on above: Result Comment: eGFR (Estimated [...] By: #### C BCDIF, PT, RIOS, NTBNP ####[facility] [place], [place] [phone] Glucose mass conc 140 mg/dL High 74-99 [facility] Comment on above: Result Comment: The [place] Diabetes Association (ADA) provides guidance for cutoff [...] Standards of Medical Care in Diabetes 2016, [place] Diabetes Association. Diabetes Care. 2016.39(Suppl 1). Performed By: #### C BCDIF, PT, CMP, NTBNP ####[facility] [place], [place] [phone] Potassium molar conc 3.9 mmol/L Normal 3.7-5.1 [facility] Comment on above: Performed By: #### C BCDIF, PT, CMP, NTBNP ####[facility] [address] [place], [place] [phone] Sodium molar conc 137 mmol/L Normal 136-144 [facility] Comment on above: Performed By: #### C BCDIF, PT, CMP, NTBNP ####[facility] [address] AvF[place], [place] [phone] Urea nitrogen mass conc 20 mg/dL Normal 9-24 [facility] Comment on above: Performed By: #### C BCDIF, PT, CMP, NTBNP ####[facility] [address] [place], [place] [phone] CASE MGT INIT ASSESon 2017 CASE MGT INIT [facility] HNO ID: [id number] thor: SHARON Tellez Rnervice: Care ManagementAuthor Type: [...] 23, 2017 : 9:12 AM PAGER/CONTACT #: [phone] Normal [facility] PROCEDUREon 11-23-2017 Protein mass conc HNO ID: [id number] thor: Pratik Payton) PatelService: Interventional CardiologyAuthor Type: FellowType: ProceduresFiled: 11/22/2017 11:27 PMNote Text: INTERVENTIONAL CARDIOLOGY Procedure Note?Florin VargasMRN: [id number]: November 22, 2017Attending: Dr CancinoInterventional Fellow: Pratik [...] demonstrated severe disease at the ostium. We xxvcvbcadfv-ddq-qwmccgo with a 4.0/20 mm NC at 16-18 [...] me with questions.Justin Franco MDInterventional Cardiology FellowPager: [phone] 2017 11:01 PM Normal [facility] PROGRESSon 11-23-2017 Protein mass conc HNO ID: [id number] thor: Pratik Payton) PatelService: Interventional CardiologyAuthor Type: [...] cap Take 1 capsule by mouth once daily.Extwr-7-JOY-EPA-Fish Oil 1,200 (144-216) mg cap Take by [...] and Weight controlPratik Franco MDInterventional Cardiology FellowPager: [phone] 20178:57 AM Normal [facility] Zaire 11-14-2017 CNPN Telephone (CATHMN) -------FLORIN VARGAS ([id number]) 1940 MDate Time Provider Department11/14/17 MELODIE GUZMAN (LISA) CATHMN During your visit today, we recorded the following information about you:Melodie Guzman RN REWIND OPERATOR.TOBACCO EDUCATOR 11/14/2017 4:47 PM SignedAttempt made to speak with patient and review the valve team's recommendationfor PCI. No answer. VMX left.Request has been sent to the surgical scheduler to arrange a PCI procedure appointment.Horacio Boyd [facility] 11/15/2017 8:39 AM SignedPatient returned phone call and is waiting near the phone. Call as soon as youget in. Per the patient.[phone] Guzman RN REWIND OPERATOR.TOBACCO EDUCATOR 11/16/2017 1:46 PM SignedSpoke with Mrs. Florin [...] 1 capsule by mouth once * OMEGA 2-KBR-WFZ-FISH OIL 1,20* Take by mouth twice daily. CLOPIDOGREL 75 MG TABLET Take 75 mg by mouth once angeles* MINERALS ORAL Take by mouth once daily. Barbara* OTC PRODUCT 1 tablet three times daily. N*Problem List As Of Date 11/14/2017 Noted Resolved CAD (coronary artery disease) [I25.10] Aortic stenosis [I35.0] Status:Closed by MELODIE BROWN RN on 11/14/17 [facility] 11-13-2017 HOSP Patient Update (CATHMN) -------FLORIN VARGAS ([id number]) 1940 MDate Time Provider Department11/13/17 MELODIE GUZMAN (TOBACCO EDUCATOR) CATHMN During your visit today, we recorded the following information about you:Melodie Guzman RN REWIND OPERATOR.[facility] 11/13/2017 9:26 AM SignedMULTI DISCIPLINARY HIGH RISK AVR CARDIAC TEAMMembers present: Dr. Villa, Dr. Eid, Dr. Cancino, Dr. Paiz, , ,Dr. Diana, Dr. Vargas, Dr. Herrera, Dr Alfaro, Mingo GONZALEZ, Van RNPresenting Physician: Dr CancinoPATIENT NAME: Florin VargasMRN: [id number]: November 13, 2017Outcome: Florin Vargas 's history and imaging were reviewed by thephysicians in attendance.Coronary angiogram reviewed. + anginaThe collaborative recommendation would be needs PCI RCA with Dr CancinoThese recommendations will be communicated to the patient by our office.Procedure scheduling will be handled by CVM surgical scheduler.Melodie Guzman RN CNSAllergies As of Date: 11/13/2017(No [...] 1 capsule by mouth once * OMEGA 4-JZV-LEE-FISH OIL 1,20* Take by mouth twice daily. CLOPIDOGREL 75 MG TABLET Take 75 mg by mouth once angeles* MINERALS ORAL Take by mouth once daily. Barbara* OTC PRODUCT 1 tablet three times daily. N*Problem List As Of Date 11/13/2017 Noted Resolved CAD (coronary artery disease) [I25.10] Aortic stenosis [I35.0] Status:Closed by TARIK GONZALEZ, MELODIE Driver on 11/13/17 Normal [facility] PROGRESSon 11-13-2017 Protein mass conc HNO ID: [id number] thor: Melodie Driver (Lisa) TarikService: (none)Author Type: Nurse SpecialistType: Progress NotesFiled: 11/13/2017 9:26 AMNote Text:MULTI DISCIPLINARY HIGH RISK AVR CARDIAC TEAMMembers present: Dr. Villa, Dr. Eid, Dr. Cancino, Dr. Paiz,Dr. Pedersen, ,Dr. Diana, Dr. Vargas, Dr. Herrera, Dr Alfaro, Barry, Alex Khan RNPresenting Physician: Dr CancinoPATIENT NAME: Florin VargasMRN: [id number]: November 13, 2017Outcome: Florin Vargas 's history and imaging were reviewed by thephysicians in attendance.Coronary angiogram reviewed. + anginaThe collaborative recommendation would be needs PCI RCA with Dr CancinoThese recommendations will be communicated to the patient by our office.Procedure scheduling will be handled by CVM surgical scheduler.SEBASTIAN Lindsey Normal [facility] PROGRESSon 11-11-2017 Protein mass conc HNO ID: [id number] thor: Rachael SmythiSerfelibertoe: (none)Author Type: PhysicianType: Progress NotesFiled: 11/11/2017 2:23 AMNote Text:CHART COPY DO NOT DISCARDPatient Type:ConsultVisit to determine Surgery:YesPCP:Pedro Gonzalez MD ([facility])[address] [place] [address] 25063Uktvj: [phone]: [phone] Physician::Ladarius Cancino MD[address] [facility] [place] [address]HGL: Mr. Florin Vargas is a 77 year [...] be communicated back to the requesting physician viapaintsville arh hospitalic medical recordSnithin Pedersen MD [facility] CNOVon 11-10-2017 CNOV Office Visit (CATHMN) -------FLORIN VARGAS ([id number]) 1940 MDate Time Provider Department11/10/17 2:00 PM VANESSA COLVIN ([facility]) CATHMN During your visit today, we recorded the following information about you: Weight Height 80.7 kg 1.778 Jacque Colvin RN REWIND OPERATOR.TOBACCO EDUCATOR 11/10/2017 3:26 PM [facility] InstituteRob[facility] and [facility] Department of Cardiovascular MedicineSECTION OF INTERVENTIONAL CARDIOLOGYOUTPATIENT VISIT DATE November 10, 2017OUTPATIENT VISIT TYPEESTABLISHEDPRIMARY CARE PHYSICIAN:Pedro Gonzalez MD ([facility])[address] [place] [address] 42117Wdptk: [phone]: [phone] COMPLAINT:Patient presents with:Aortic StenosisHISTORY OF PRESENT ILLNESS:Mr. [...] cap Take 1 capsule by mouth once daily.Tnbyq-9-QNF-EPA-Fish Oil 1,200 (144-216) mg cap Take by [...] Activities of Daily Living:ActivitiesPoints (1 or 0) [place]:(1 Point)No supervision, direction or personal assistance Dependence:(0 [...] 2+CTA 11/03/17:aortic annulus: 2.2 x 3.0Area: 4.8 cd5Ipjsleazzgate: 8.0MLD= 8 mmIMPRESSION:Mr. Vargas is a 77 year old male with severe aortic valve stenosis andangina, NYHA FC III.PLAN AND RECOMMENDATIONS:I have spoken with Florin Vargas regarding the evaluation process for HRAVR. I reviewed the commercially available [employer]esciences valve,including the valve model. I showed the animation of the TF procedure whileexplaining the procedure. I also reviewed the use of the [place] device. Wediscussed pre-op planning which includes the [...] be notified of the recommendations.Vanessa Colvin RN REWIND OPERATOR.CNSI spent 20- minutes in this visit, with more than 50% of the time devoted topatient counseling.Referring Provider: LADARIUS CANCINO [[id number]]Allergies As of Date: 11/10/2017(No Known Allergies)Date Reviewed: 11/03/2017Reviewed by: Tonja Lee) SEBASTIAN Watkins - Fully AssessedReason for Visit: Aortic Stenosis [614]Visit Diagnoses:Coronary artery disease involving [place] coronary artery of [place] heart with angina pectoris with documented spasm [...] 1 capsule by mouth once * OMEGA 8-KJC-AWY-FISH OIL 1,20* Take by mouth twice daily. CLOPIDOGREL 75 MG TABLET Take 75 mg by mouth once angeles* MINERALS ORAL Take by mouth once daily. Barbara* OTC PRODUCT 1 tablet three times daily. N*Problem List As Of Date 11/10/2017 Noted Resolved CAD (coronary artery disease) [I25.10] Aortic stenosis [I35.0]Disposition: Return for scheduled.Follow-up and Disposition History RecordedEncounter Number: [id number] Status:Closed by HELD VANESSA GONZALEZ on 11/10/17 Normal [facility] CN Office Visit (TOMN) -------TIAN,JONAS E ([id number]) 1940 MDate Time Provider Department11/10/17 12:00 PM [facility] During your visit today, we recorded the following information about you:Rachael Pedersen MD 11/11/2017 2:23 AM SignedCHART COPY DO NOT DISCARDPatient Type:ConsultVisit to determine Surgery:YesPCP:Pedro Gonzalez MD ([facility])[address] [place] [address] 11302Gfaag: [phone]: [phone] Physician::Ladarius Cancino [id number] [facility] [id number]: Mr. Florin Courtney Tian is a 77 year old male seen in consultation at rust of Ladarius Cancino for opinion regarding treatment [...] be communicated back to the requesting physician viapaintsville arh hospitalic medical recordShiJENNIFER Barahonaeferring Provider: LADARIUS CANCINO [[id number]]Allergies As of Date: 11/10/2017(No Known Allergies)Date Reviewed: [...] 1 capsule by mouth once * OMEGA 8-KRC-UUC-FISH OIL 1,20* Take by mouth twice daily. CLOPIDOGREL 75 MG TABLET Take 75 mg by mouth once angeles* MINERALS ORAL Take by mouth once daily. Barbara* OTC PRODUCT 1 tablet three times daily. N*Problem List As Of Date 11/10/2017 Noted Resolved CAD (coronary artery disease) [I25.10] Aortic stenosis [I35.0] Status:Closed by RACHAEL PEDERSEN on 11/11/17 Normal [facility] PROGRESSon 11-10-2017 Protein mass conc HNO ID: [id number] thor: Vanessa Santiago (Tying In Machine Operator) HeldService: (none)Author Type: Nurse SpecialistType: Progress NotesFiled: 11/10/2017 3:26 PMNote Text:[facility]ascular [facility] Department of Cardiovascular MedicineSECTION OF INTERVENTIONAL CARDIOLOGYOUTPATIENT VISIT DATE November 10, 2017OUTPATIENT VISIT TYPEESTABLISHEDPRIMARY CARE PHYSICIAN:Pedro Gonzalez MD ([facility])[address] [place] [address]7640Ikvlj: [phone]: [phone] COMPLAINT:Patient presents with:Aortic StenosisHISTORY OF PRESENT ILLNESS:Mr. [...] cap Take 1 capsule by mouth once daily.Hevjo-1-WHL-EPA-Fish Oil 1,200 (144-216) mg cap Take by [...] Activities of Daily Living:ActivitiesPoints (1 or 0) [place]:(1 Point)No supervision, direction or personal assistance Dependence:(0 [...] 2+CTA 11/03/17:aortic annulus: 2.2 x 3.0Area: 4.8 op4Fyquazorcvhew: 8.0MLD= 8 mmIMPRESSION:Mr. Vargas is a 77 [...] will benotified of the recommendations.Vanessa Colvin RN REWIND OPERATOR.CNSI spent 20- minutes in this visit, with more than 50% of the time devotedto patient counseling. Normal [facility] CBC and Differentialon 11-03 Abs Baso <0.03 Normal <0.11 [facility] Comment on above: Performed By: #### C BCDIF, PT, CMP, NTBNP ####[facility] [address] AveCHappy [place], [place] [phone] Abs [place] 0.51 k/uL Normal <0.87 [facility] Comment on above: Performed By: #### C BCDIF, PT, CMP, NTBNP ####[facility] [address]abeu[address]sh[address] AveCHappy [place], [place] [phone] Abs Neut 3.07 k/uL Normal 1.45-7.50 [facility] Comment on above: Performed By: #### C BCDIF, PT, CMP, NTBNP ####[place] [address] AveClevelJason [place] [phone] Absolute nRBC <0.01 Normal <0.01 [facility] Comment on above: Performed By: #### C BCDIF, PT, CMP, NTBNP ####[place] [address] [address]ClevelJason [place] [phone] Basophils/100 WBC Auto (Bld) 0.3 % Normal [facility] Comment on above: Performed By: #### C BCDIF, PT, CMP, NTBNP ####[place] [address] [address]CBr[address] [place] [phone] DTYPE Auto Diff Normal [facility] Comment on above: Performed By: #### C BCDIF, PT, CMP, NTBNP ####[place] [address] [address] [place] [phone] Eosinophils Auto #/vol (Bld) 0.17 10*3/uL Normal <0.46 [facility] Comment on above: Performed By: #### C BCDIF, PT, CMP, NTBNP ####[place] [address] [address]ClevelJason [place] [phone] Eosinophils/100 WBC Auto (Bld) 2.6 % Normal [facility] Comment on above: Performed By: #### C BCDIF, PT, CMP, NTBNP ####[place] [address] [address]ClevelJason [place] [phone] Erythrocyte distribution width Auto Ratio (RBC) 13.6 % Normal 11.5-15.0 [facility] Comment on above: Performed By: #### C BCDIF, PT, CMP, NTBNP ####[place] [address] [address]ClevelJason [address] [phone] Hematocrit Auto Volume Fraction (Bld) 42.8 % Normal 39.0-51.0 [facility] Comment on above: Performed By: #### C BCDIF, PT, CMP, NTBNP ####[address] AvBrianna Ville [phone] Hemoglobin mass conc (Bld) 13.7 g/dL Normal 13.0-17.0 [facility] Comment on above: Performed By: #### C BCDIF, PT, CMP, NTBNP ####[place] [phone] Lymphocytes Auto #/vol (Bld) 2.73 10*3/uL Normal 1.00-4.00 [facility] Comment on above: Performed By: #### C BCDIF, PT, CMP, NTBNP ####[place] [phone] Lymphocytes/100 WBC Auto (Bld) 41.9 % Normal [facility] Comment on above: Performed By: #### C BCDIF, PT, CMP, NTBNP ####[place] [phone] MCH Auto Entitic mass (RBC) 29.0 pG Normal 26.0-34.0 [facility] Comment on above: Performed By: #### C BCDIF, PT, CMP, NTBNP ####[place] [phone] MCHC Auto mass conc (RBC) 32.0 g/dL Normal 30.5-36.0 [facility] Comment on above: Performed By: #### C BCDIF, PT, CMP, NTBNP ####[address]CBrandon [address] [phone] MCV Auto Entitic volume (RBC) 90.5 fL Normal 80.0-100.0 [facility] Comment on above: Performed By: #### C BCDIF, PT, CMP, NTBNP ####[place] [address] [address] [place], [place] [phone] Monocytes/100 WBC Auto (Bld) 7.8 % Normal [facility] Comment on above: Performed By: #### C BCDIF, PT, CMP, NTBNP ####[place] [address] [address] [place], [place] [phone] Neutrophils/100 WBC Auto (Bld) 47.4 % Normal [facility] Comment on above: Performed By: #### C BCDIF, PT, CMP, NTBNP ####[place] [address] [address] [place] [phone] NRBCs 0.0 /100 WBC Normal 0 [facility] Comment on above: Performed By: #### C BCDIF, PT, CMP, NTBNP ####[place] [address] [address] [place] [phone] Platelet mean volume Auto Entitic volume (Bld) 10.6 fL Normal 9.0-12.7 [facility] Comment on above: Performed By: #### C BCDIF, PT, CMP, NTBNP ####[place] [address] [address] [place], [place] [phone] Platelets Auto #/vol (Bld) 176 10*3/uL Normal 150-400 [facility] Comment on above: Performed By: #### C BCDIF, PT, CMP, NTBNP ####[place] [address] [address] [place], [place] [phone] RBC Auto #/vol (Bld) 4.73 10*6/uL Normal 4.20-6.00 [facility] Comment on above: Performed By: #### C BCDIF, PT, CMP, NTBNP ####[place] [address] [address] [place], [place] [phone] WBC Auto #/vol (Bld) 6.51 10*3/uL Normal 3.70-11.00 [facility] Comment on above: Performed By: #### C BCDIF, PT, CMP, NTBNP ####[facility] [address], [place] [phone] CNOVon 11-03-2017 CNOV Office Visit (CATHMN) -------FLORIN VARGAS ([id number]) 1940 MDate Time Provider Department11/03/17 1:30 PM LADARIUS CANCINO CATHMN During your visit today, we recorded the following information about you: Pulse Blood pressure Weight Height 60/minute 131/64 85.5 kg 1.676 Kavita Cancino MD 11/23/2017 6:37 PM [facility] Department of Cardiovascular MedicineSECTION OF INTERVENTIONAL CARDIOLOGYOUTPATIENT VISIT DATE November 03, 2017OUTPATIENT VISIT TYPENEWPRIMARY CARE PHYSICIAN:Pedro Gonzalez MD ([facility])[address] [place] [address] 30[address]Vuoea: [phone]: [phone] PHYSICIAN:SELFCHIEF COMPLAINT:Coronary Artery DiseaseAortic StenosisHISTORY OF PRESENT ILLNESS:Mr. Vargas is a 77 year old male from [place], [place] who presents todayfor evaluation of coronary artery disease and .PMH consists of:- CAD s/p CABG 1995 GRAJEDA-LAD ([facility] ), redo CABG (2001 [facility])- aortic stenosis- mitral valve regurgitation- HLD,- HTN.He [...] hehas tried multiple medications with his prior food scientist without success. Tristonhas not been on statin for this period.Given these symtpoms, Stress test in July 2017 that could not necessarilyrule out IN ischemia. Heart cath as below.He had a [...] is walking up an incline. 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 Chelated minerals liquidOTC PRODUCT 1 tablet three times daily. Natural artery careREVIEW OF SYSTEMS:12 point ROS negative as per HPIPHYSICAL EXAMINATION:BP 131/64 Pulse 60 Ht 5' 6ANDquot; (1.68m) Wt 188 lb 8 oz (85.5kg) NtJ126% BMI 30.44 kg/(m2).General Appearance: Well developed and [...] horizontal ST depression in II, III, aVF, V5-B0Dgfzhjqwpt perfusion changes concerning for physiologic apical thinning,however, [...] all questions answered- Plan discussed with Staff Hand Ii Thermal Cutter, Dr Ladarius Cancino. Note andrecommendations will be finalized upon his final attestation/recommendations .---------Wilton Charlton MD MPHCardiovascular Medicine Fellow, PGY - 5CMercy Health St. [facility] Arlen bib Cameron Pena Heart and [email or web address] STAFF PHYSICIAN NOTE OF PERSONAL INVOLVEMENT IN [...] a tricuspid valve. His aortic annulus measures nxjusyb096 and 550 mm? with sinuses of Valsalva of only 29 mm and an STJ of only 26mm. Coronary angiography showed no obvious targets for PCI in the saint reg[place] leftcirculation with a patent GRAJEDA to his LAD and a patent vein graft to thelateral wall. The vein graft to the right coronary artery was occluded withsevere, heavily calcified diffuse disease of the [place] right coronary arterythat would be amenable to [...] valve stenosis [I35.0] Other Visit Diagnoses:Atherosclerosis of [place] coronary artery of [place] heart, angina presence unspecified [I25.10] Coronary artery disease involving [place] coronary artery of saint [place] heart with angina pectoris with documented spasm (HCC) [I25.111]Order(s):CARDIAC RIPRAP MAN ORDER [[id number]] Order #: [id number]: 1Prescriptions as of 11/03/2017 Sig: ISOSORBIDE MONONITRATE ER 60 * Take 30 mg by mouth once angeles* METOPROLOL SUCCINATE ER 50 MG* Take 25 mg by mouth once angeles* ASPIRIN 81 MG TABLET,DELAYED * Take 81 mg by mouth once angeles* GARLIC 1,000 MG CAPSULE Take 1 capsule by mouth once * OMEGA 9-JGZ-RAG-FISH OIL 1,20* Take by mouth twice daily. CLOPIDOGREL 75 MG TABLET Take 75 mg by mouth once angeles* MINERALS ORAL Take by mouth once daily. Barbara* OTC PRODUCT 1 tablet three times daily. N*Problem List As Of Date: 11/03/2017(None)Letter Text Ladarius Cancino M.D.[place] [facility] Department ofCardiovascular MedicineSection of Interventional and Clinical CardiologyApril 2017Mr. Florin Reeceler[address] [facility] [address]EJCP: Jayna Vargas NO: [id number] OF SERVICE: 11/03/2017Dear Mr. Vargas:The results of [...] do not hesitate to contactour clinic at [phone].Sincerely,Jose Cancino M.D.(Signed electronically to expedite mailing)[facility] InstituteSouth Charleston [facility] Department of Cardiovascular MedicineSECTION OF INTERVENTIONAL CARDIOLOGYOUTPATIENT VISIT DATE November 03, 2017OUTPATIENT VISIT TYPENEWPRIMARY CARE PHYSICIAN:Pedro Gonzalez MD ([facility])[address] [place] [address] 99000Xbcmk: [phone]: [phone] PHYSICIAN:SELFCHIEF COMPLAINT:Coronary Artery DiseaseAortic StenosisHISTORY OF PRESENT ILLNESS:Mr. Vargas is a 77 year old male from [place], [place] who presents todayfor evaluation of coronary artery disease and .PMH consists of:- CAD s/p CABG 1995 GRAJEDA-LAD ([facility] ), redo CABG (2001 [facility])- aortic stenosis- mitral valve regurgitation- HLD,- HTN.He [...] has tried multiple medications with his prior food scientist withoutsuccess. He has not been on statin for this period.Given these symtpoms, Stress test in July 2017 that could not necessarilyrule out IN ischemia. Heart cath as below.He had a [...] is walking up an incline. 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 Note andrecommendations will be finalized upon his final attestation/recommendations .---------Wilton Charlton MD MPHCardiovascular Medicine Fellow, PGY - 5CMemorial Hospital - [facility]tica Psychiatric Centerangelo and Cameron Pena Heart and [email or web address] [email or web address] STAFF PHYSICIAN NOTE OF PERSONAL INVOLVEMENT IN [...] showed no obvioustargets for PCI in the saint reg[place] left circulation with a patent GRAJEDA to his LADand a patent vein graft to the lateral wall. The vein graft to the rightcoronary artery was occluded with severe, heavily calcified diffuse diseaseof the saint reg[place] right coronary artery that would be amenable [...] 03, 2017TIME OF SERVICE: 3:23 PMEncounter Number: [id number] Status:Closed by LADARIUS CANCINO on 11/23/17 Normal [facility] CTA C/A/P (GATED) W IVCONon 11-03-2017 CTA [...] throughout, and is notable for an infrarenal aneurysm.Grated Cheese Maker dimensions of the thoracoabdominal aorta are as [...] exam is recommended in 3 to 6 months.Agricultural Plow Operator: JOSE ARMANDO Transcribe Date/Time: Nov 03 2017 1:23PDictated by : Jordi JACKSON examination was interpreted and the report reviewed and electronically signed by: GABRIEL POWELL DO on Nov 03 2017 3:18PM [id number] Normal [facility] Comp Metabolic Panelon 11-03 Albumin mass conc 4.1 g/dL Normal 3.9-4.9 [facility] Comment on above: Performed By: #### C BCDIF, PT, CMP, NTBNP ####[facility] [address] [place], [place] [phone] ALP enzyme act/vol 84 U/L Normal 36-108 [facility] Comment on above: Performed By: #### C BCDIF, PT, CMP, NTBNP ####[facility] [address] [place], [place] [phone] ALT enzyme act/vol 16 U/L Normal 10-54 [facility] Comment on above: Performed By: #### C BCDIF, PT, CMP, NTBNP ####[place] [id number] [place] AveCBr[address] [place] [phone] Anion gap 3 molar conc 12 mmol/L Normal 9-18 [facility] Comment on above: Performed By: #### C BCDIF, PT, CMP, NTBNP ####[place] [address] [address] [place] [phone] AST enzyme act/vol 20 U/L Normal 14-40 [facility] Comment on above: Performed By: #### C BCDIF, PT, CMP, NTBNP ####[address]Brianna [place]ille [phone] Bilirubin mass conc 0.8 mg/dL Normal 0.2-1.3 [facility] Comment on above: Performed By: #### C BCDIF, PT, CMP, NTBNP ####[address] Av[address] [place] [phone] Calcium mass conc 9.3 mg/dL Normal 8.5-10.2 [facility] Comment on above: Performed By: #### C BCDIF, PT, CMP, NTBNP ####[address] [place] [phone] Chloride molar conc 102 mmol/L Normal 97-105 [facility] Comment on above: Performed By: #### C BCDIF, PT, CMP, NTBNP ####[place] [address] [address] [place] [phone] CO2 molar conc 27 mmol/L Normal 22-30 [facility] Comment on above: Performed By: #### C BCDIF, PT, CMP, NTBNP ####[place] [address] [address] [place] [phone] Creatinine mass conc 0.98 mg/dL Normal 0.73-1.22 [facility] Comment on above: Performed By: #### C BCDIF, PT, CMP, NTBNP ####[facility] [address] [place], [place] [phone] eGFR- Amer. >60 Normal [facility] Comment on above: Performed By: #### C BCDIF, PT, CMP, NTBNP ####[facility] [place], [place] [phone] GFR/1.73 sq M predicted among non-blacks MDRD vol rate/area (S/P/Bld) mL/min/{1.73_m2} Normal [facility] Comment on above: Result Comment: eGFR (Estimated [...] By: #### C BCDIF, PT, CMP, NTBNP ####[facility] [place], [place] [phone] Glucose mass conc 88 mg/dL Normal 74-99 [facility] Comment on above: Result Comment: The [place] Diabetes Association (ADA) provides guidance for cutoff [...] Standards of Medical Care in Diabetes 2016, [place] Diabetes Association. Diabetes Care. 2016.39(Suppl 1). Performed By: #### C BCDIF, PT, CMP, NTBNP ####[place] [id number] AvF[place], [place] [phone] Potassium molar conc 4.5 mmol/L Normal 3.7-5.1 [facility] Comment on above: Performed By: #### C BCDIF, PT, CMP, NTBNP ####[address] [place], [place] [phone] Protein mass conc 7.1 g/dL Normal 6.3-8.0 [facility] Comment on above: Performed By: #### C BCDIF, PT, CMP, NTBNP ####[address] Av[address] [place], [place] [phone] Sodium molar conc 141 mmol/L Normal 136-144 [facility] Comment on above: Performed By: #### C BCDIF, PT, CMP, NTBNP ####[address] [phone] Urea nitrogen mass conc 20 mg/dL Normal 9-24 [facility] Comment on above: Performed By: #### C BCDIF, PT, CMP, NTBNP ####[address] [phone] NT Pro BNPon 11-03-2017 Protein mass conc 2191 pg/mL High <450 [facility] Comment on above: Performed By: #### C BCDIF, PT, CMP, NTBNP ####[address] [place], [place] [phone] PROGRESSon 11-03-2017 Protein mass conc HNO ID: [id number] thor: Ladarius Grajeda: (none)Author Type: PhysicianType: Progress NotesFiled: 11/23/2017 6:37 PMNote Text:Heart and Vascular InstituteMarciano and Ashley Lay Department of Cardiovascular MedicineSECTION OF INTERVENTIONAL CARDIOLOGYOUTPATIENT VISIT DATE November 03, 2017OUTPATIENT VISIT TYPENEWPRIMARY CARE PHYSICIAN:Pedro Gonzalez MD ([facility])[address] [place] [address] 76981Ywtvy: [phone]: [phone] PHYSICIAN:SELFCHIEF COMPLAINT:Coronary Artery DiseaseAortic StenosisHISTORY OF PRESENT ILLNESS:Mr. Vargas is a 77 year old male from [place], [place] who presentstoday for evaluation of coronary artery disease and .PMH consists of:- CAD s/p CABG 1995 GRAJEDA-LAD ([facility] ), redo CABG (2001 [facility])- aortic stenosis- mitral valve regurgitation- HLD,- HTN.He [...] has tried multiple medications with his prior food scientist withoutsuccess. He has not been on statin for this period.Given these symtpoms, Stress test in July 2017 that could notnecessarily rule out IN ischemia. 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 Chelated minerals liquidOTC PRODUCT 1 tablet three times daily. Natural artery careREVIEW OF SYSTEMS:12 point ROS negative as per HPIPHYSICAL EXAMINATION:BP 131/64 Pulse 60 Ht 5' 6 (1.68m) Wt 188 lb 8 oz (85.5kg) KgR424% BMI 30.44 kg/(m2).General Appearance: Well developed and [...] horizontal ST depression in II, III, aVF, V5-I3Zzyagwwygg perfusion changes concerning for physiologic apical thinning,however, [...] degree AV blockLeft Heart Catheterization @ [facility] 09/12/2017[facility]:Thermal CO 2.71, Thermal CI 1.38RA 4, RV [...] all questions answered- Plan discussed with Staff Hand Ii Thermal Cutter, Dr Ladarius Cancino. Note andrecommendations will be finalized upon his finalattestation/recommenda tions.---------Wilton Charlton MD MPHCardiovascular Medicine Fellow, PGY - 5CMemorial Hospital - [facility]tica Psychiatric CenterFletcher Pena Heart and [email or web address] STAFF PHYSICIAN NOTE OF PERSONAL INVOLVEMENT IN [...] showed no obvious targets for PCI inthe saint regis left circulation with a patent GRAJEDA to [...] 03, 2017TIME OF SERVICE: 3:23 PM Normal [facility] Protein mass conc HNO ID: [id number] thor: Tamika Leon CtService: (none)Author Type: (none)Type: Progress NotesFiled: 11/03/2017 1:19 PMNote Text: Radiology Service Progress NotePATIENT NAME: Florin VargasMRN: [id number] OF SERVICE: November 03, 2017TIME: 1:11 PMPATIENT IDENTITY VERIFICATION COMPLETED USING TWO (2) METHODS: Patientconfirmed name verbally and ID band matches..PATIENT GENDER DATA: MalePATIENT RELEVANT IMPLANT DATA REVIEWED: YesRADIOLOGY DEPARTMENT: CT; Exam(s) Completed: CardiacPERIPHERAL IV DATA: Site assessment: Clean,Dry and Intact, Sitedisposition Left in for next appointmentSIGNED BY: Tamika Leon CtMar 2017 1:11 PM Normal [facility] Protein mass conc HNO ID: [id number] thor: Tonja (Rn) [facility], RNService: RadiologyAuthor Type: Registered NurseType: Progress NotesFiled: 11/03/2017 12:55 PMNote Text: Radiology Service Progress NotePATIENT NAME: Florin VargasMRN: [id number] OF SERVICE: November 03, 2017TIME: 12:38 PMPATIENT WEIGHT: 185 LBSPATIENT IDENTITY VERIFICATION COMPLETED USING TWO (2) METHODS: Patientconfirmed name verbally and ID band matches..PATIENT GENDER DATA: MaleCONTRAST INDUCED NEPHROPATHY RISK FACTORS: Patient age > 60 yearsCREATININE:Creatinine (POCT)Date Value Ref Range Tbmhhp3311/03/2017 0.90 0.7 - 1.4 mg/dL Final eGFR-All Other Races (POCT)Date Value Ref Range Mjwzml5111/03/2017 >60 mL/min/1.73 m2 Final eGFR- (POCT)Date Value Ref Range Jaiezi6911/03/2017 >60 mL/min/1.73 m2 Final P.O.C.T. RESULTS: POC done: Yes, See Lab Tab November 03, 2017TREATMENT: No Hydration needed.ALLERGIES: Reviewed and updatedCONTRAST ALLERGY: NO.IV SITE: Ambulatory: A peripheral IV was started in the Rightantecubital site with a Angio cath: 20 gauge. and A Saline lock wasinserted per protocolIV SITE APPEARANCE: Clean,Dry and IntactSIGNED BY: Tonja Watkins, [facility] 2017 12:38 PM Normal [facility] Protein mass conc HNO ID: [id number] thor: Torie Colse RtService: (none)Author Type: (none)Type: Progress NotesFiled: 11/03/2017 10:47 AMNote Text: Radiology Service Progress NotePATIENT NAME: Florin VargasMRN: [id number] OF SERVICE: November 03, 2017TIME: 10:47 AMPATIENT IDENTITY VERIFICATION COMPLETED USING TWO (2) METHODS: Patientconfirmed name verbally and Date of .PATIENT GENDER DATA: MalePATIENT RELEVANT IMPLANT DATA REVIEWED: Not ApplicableRADIOLOGY DEPARTMENT: General X-ray: Exam(s) Completed: Chest X-RayPERIPHERAL IV DATA: Not applicableSIGNED BY: Torie Coles [facility] 2017 10:47 AM Normal [facility] Protimeon 11-03-2017 INR Coag RelTime (Bld) 1.0 {INR} Normal 0.9-1.3 [facility] Comment on above: Result Comment: Татьяна min K Antagonist (VKA) Therapeutic Range: INR 2 to 3 (Target INR of 2.5)Note: For patients treated with VKA drugs, such as warfarin, the [employer] 2012 Guideline recommends [...] al. Chest 2012, 141:7S-47SGuero YIN, et al. [facility] 2017, 70: 252-289 Performed By: #### C BCDIF, PT, CMP, NTBNP ####[facility] [place], [place] [phone] PT Sec 10.7 sec Normal 9.7-13.0 [facility] Comment on above: Performed By: #### C BCDIF, PT, CMP, NTBNP ####[facility] [place], [place] [phone] XR CHEST 2V FRONTAL/LATon XR CHEST 2V [...] Degenerative changes in the spine.IMPRESSION:See body of report..Agricultural Plow Operator: PSCB Transcribe Date/Time: Nov 03 2017 2:31PDictated by : YANG ZENDEJAS MDThis examination was interpreted and the report reviewed and electronically signed by: YANG ZENDEJAS MD on Nov 03 2017 2:32PM [id number] Normal [facility] Vital Signs Date Time Vital Sign Value Performing Clinician Facility 04-07-2025 09:15-0400 Body height 167.[address] Pedro Gonzalez MD Work Phone: 8(886)604-469814 [place] [address] 04-07-2025 09:15-0400 Body mass index (BMI) [Ratio] 28.8 kg/m2 Dr. Pedro Gonzalez MD Work Phone: 9(170)843-037025 [place] [address] 04-07-2025 09:15-0400 Body weight 81.[address] Pedro Gonzalez MD Work Phone: 2(038)021-979925 [place] [address] 04-07-2025 09:15-0400 Diastolic blood pressure 72 mm[Hg] Dr. Pedro Gonzalez MD Work Phone: 6(652)280-627025 [place] [address] 04-07-2025 09:15-0400 Heart rate 72 /min Dr. Pedro Gonzalez MD Work Phone: 1(070)069-141625 [place] [address] 04-07-2025 09:15-0400 Respiratory rate 16 /min Dr. Pedro Gonzalez MD Work Phone: 3(519)467-463825 [place] [address] 04-07-2025 09:15-0400 Systolic blood pressure 118 mm[Hg] Dr. Pedro Gonzalez MD Work Phone: 2(208)944-096625 [place] [address] 04-02-2025 12:15-0400 Diastolic blood pressure 74 mm[Hg] Dr. Pedro Gonzalez MD Work Phone: 7(137)316-952325 [place] [address] 04-02-2025 12:15-0400 Heart rate 73 /min Dr. Pedro Gonzalez MD Work Phone: 9(546)756-030125 [place] [address] 04-02-2025 12:15-0400 Respiratory rate 20 /min Dr. Pedro Gonzalez MD Work Phone: 8(467)908-385625 [place] [address] 04-02-2025 12:15-0400 SaO2% (BldA) [Mass fraction] 97 % Dr. Pedro Gonzalez MD Work Phone: 2(704)474-002925 [place] [address] 04-02-2025 12:15-0400 Systolic blood pressure 115 mm[Hg] Dr. Pedro Gonzalez MD Work Phone: 9(037)789-116125 [place] [address] 04-02-2025 11:35-0400 Body mass index (BMI) [Ratio] 30.2 kg/m2 Dr. Pedro Gonzalez MD Work Phone: 5(540)628-513825 [place] [address] 04-02-2025 11:35-0400 Body temperature 98.1 [degF] Dr. Pedro Gonzalez MD Work Phone: 4(585)059-788825 [place] [address] 04-02-2025 11:35-0400 Body weight 85.[address] Pedro Gonzalez MD Work Phone: 6(809)158-860425 [place] [address] 04-02-2025 10:48-0400 Body height 167.[address] Pedro Gonzalez MD Work Phone: 3(891)593-778925 [place] [address] 02-26-2025 08:56-0400 Body height 167.[address] Pedro Gonzalez MD Work Phone: 0(942)387-655425 [place] [address] 02-26-2025 08:56-0400 Body mass index (BMI) [Ratio] 29 kg/m2 Dr. Pedro Gonzalez MD Work Phone: 8(028)986-917925 [place] [address] 02-26-2025 08:56-0400 Body weight 81.[address] Pedro Gonzalez MD Work Phone: 8(026)066-912125 [place] [address] 02-26-2025 08:56-0400 Diastolic blood pressure 64 mm[Hg] Dr. Pedro Gonzalez MD Work Phone: 7(278)437-070925 [place] [address] 02-26-2025 08:56-0400 Heart rate 60 /min Dr. Pedro Gonzalez MD Work Phone: 0(453)914-792125 [place] [address] 02-26-2025 08:56-0400 Respiratory rate 18 /min Dr. Pedro Gonzalez MD Work Phone: 1(368)659-937725 [place] [address] 02-26-2025 08:56-0400 Systolic blood pressure 112 mm[Hg] Dr. Pedro Gonzalez MD Work Phone: 4(483)719-450225 [place] [address] 02-11-2025 10:07-0400 Body height 167.[address] Pedro Gonzalez MD Work Phone: 5(075)941-227625 [place] [address] 02-11-2025 10:07-0400 Body mass index (BMI) [Ratio] 30.2 kg/m2 Dr. Pedro Gonzalez MD Work Phone: 2(205)194-687114 [place] [address] 02-11-2025 10:07-0400 Body weight 84.[address] Pedro Gonzalez MD Work Phone: 1(666)898-273825 [place] [address] 02-11-2025 10:07-0400 Diastolic blood pressure 70 mm[Hg] Dr. Pedro Gonzalez MD Work Phone: 5(981)466-160325 [place] [address] 02-11-2025 10:07-0400 Heart rate 75 /min Dr. Pedro Gonzalez MD Work Phone: 8(021)521-237325 [place] [address] 02-11-2025 10:07-0400 Respiratory rate 16 /min Dr. Pedro Gonzalez MD Work Phone: 4(779)928-693325 [place] [address] 02-11-2025 10:07-0400 Systolic blood pressure 120 mm[Hg] Dr. Pedro Gonzalez MD Work Phone: 8(288)631-924025 [place] [address] 02-08-2025 11:00-0400 Body temperature 97.1 [degF] Dr. Pedro Gonzalez MD Work Phone: 6(772)102-316625 [place] [address] 02-08-2025 11:00-0400 Diastolic blood pressure 69 mm[Hg] Dr. Pedro Gonzalez MD Work Phone: 9(294)541-363025 [place] [address] 02-08-2025 11:00-0400 Heart rate 69 /min Dr. Pedro Gonzalez MD Work Phone: 6(867)530-443625 [place] [address] 02-08-2025 11:00-0400 Respiratory rate 16 /min Dr. Pedro Gonzalez MD Work Phone: 6(159)314-078025 [place] [address] 02-08-2025 11:00-0400 SaO2% (BldA) [Mass fraction] 99 % Dr. Pedro Gonzalez MD Work Phone: 1(884)133-756225 [place] [address] 02-08-2025 11:00-0400 Systolic blood pressure 104 mm[Hg] Dr. Pedro Gonzalez MD Work Phone: 2(135)514-454025 [place] [address] 02-08-2025 05:21-0400 Inhaled oxygen concentration 24 % Dr. Pedro Gonzalez MD Work Phone: [facility] 02-08-2025 03:45-0400 Body mass index (BMI) [Ratio] 31.6 kg/m2 Dr. Pedro Gonzalez MD Work Phone: [facility] 02-08-2025 03:45-0400 Body weight [address] Pedro Gonzalez MD Work Phone: 3(336)734-061514 [place] [address] 02-07-2025 07:10-0400 Inhaled oxygen flow rate 2 L/min Dr. Pedro Gonzalez MD Work Phone: [facility] 2025 10:59-0400 Body height 167.[address] Pedro Gonzalez MD Work Phone: 0(404)010-491982 [address] 02-04-2025 23:21-0400 Body temperature 97.3 [degF] Dr. Pedro Gonzalez MD Work Phone: 8(466)517-292714 [place] [address] 02-04-2025 23:21-0400 Diastolic blood pressure 68 mm[Hg] Dr. Pedro Gonzalez MD Work Phone: [facility] 02-04-2025 23:21-0400 Heart rate 78 /min Dr. Pedro Gonzalez MD Work Phone: 1(688)064-792682 [address] 02-04-2025 23:21-0400 Respiratory rate 18 /min Dr. Pedro Gonzalez MD Work Phone: 2(474)191-054914 [place] [address] 02-04-2025 23:21-0400 SaO2% (BldA) [Mass fraction] 98 % Dr. Pedro Gonzalez MD Work Phone: [facility] 02-04-2025 23:21-0400 Systolic blood pressure 103 mm[Hg] Dr. Pedro Gonzalez MD Work Phone: [facility] 02-04-2025 21:43-0400 Inhaled oxygen concentration 28 % Dr. Pedro Gonzalez MD Work Phone: [facility] 02-04-2025 21:00-0400 Inhaled oxygen flow rate 2 L/min Dr. Pedro Gonzalez MD Work Phone: 5(814)946-484925 [place] [address] 02-04-2025 17:56-0400 Body height 167.[address] Pedro Gonzalez MD Work Phone: 3(202)272-025725 [place] [address] 02-04-2025 17:56-0400 Body mass index (BMI) [Ratio] 31.4 kg/m2 Dr. Pedro Gonzalez MD Work Phone: 7(503)272-484625 [place] [address] 02-04-2025 17:56-0400 Body weight 88.[address] Pedro Gonzalez MD Work Phone: 4(945)752-992525 [place] [address] 02-04-2025 09:01-0400 Body height 167.[address] Pedro Gonzalez MD Work Phone: 6(415)751-904525 [place] [address] 02-04-2025 09:01-0400 Body mass index (BMI) [Ratio] 29 kg/m2 Dr. Pedro Gonzalez MD Work Phone: 5(472)269-818425 [place] [address] 02-04-2025 09:01-0400 Body weight 81.[address] Pedro Gonzalez MD Work Phone: 7(978)481-308425 [place] [address] 02-04-2025 09:01-0400 Diastolic blood pressure 49 mm[Hg] Dr. Pedro Gonzalez MD Work Phone: 1(213)180-471925 [place] [address] 02-04-2025 09:01-0400 Heart rate 78 /min Dr. Pedro Gonzalez MD Work Phone: 5(205)889-473725 [place] [address] 02-04-2025 09:01-0400 Respiratory rate 18 /min Dr. Pedro Gonzalez MD Work Phone: 6(753)074-890125 [place] [address] 02-04-2025 09:01-0400 Systolic blood pressure 86 mm[Hg] Dr. Pedro Gonzalez MD Work Phone: 0(853)457-721525 [place] [address] 12-25-2024 10:20-0400 Body height 167.[address] Pedro Gonzalez MD Work Phone: 5(590)559-951025 [place] [address] 12-25-2024 10:20-0400 Body mass index (BMI) [Ratio] 29.3 kg/m2 Dr. Pedro Gonzalez MD Work Phone: 2(245)454-998125 [place] [address] 12-25-2024 10:20-0400 Body weight 82.[address] Pedro Gonzalez MD Work Phone: [facility] 12-25-2024 10:20-0400 Diastolic blood pressure 71 mm[Hg] Dr. Pedro Gonzalez MD Work Phone: 9(855)409-167814 [place] [address] 12-25-2024 10:20-0400 Heart rate 80 /min Dr. Pedro Gonzalez MD Work Phone: 4(659)403-557914 [place] [address] 12-25-2024 10:20-0400 Respiratory rate 20 /min Dr. Pedro Gonzalez MD Work Phone: 0(967)907-318825 [place] [address] 12-25-2024 10:20-0400 Systolic blood pressure 117 mm[Hg] Dr. Pedro Gonzalez MD Work Phone: 7(833)311-723982 [address] 12-13-2024 09:08-0400 Body temperature 98.1 [degF] Dr. Pedro Gonzalez MD Work Phone: 5(033)323-982482 [address] 12-13-2024 09:08-0400 Diastolic blood pressure 63 mm[Hg] Dr. Pedro Gonzalez MD Work Phone: 4(176)298-892782 [address] 12-13-2024 09:08-0400 Heart rate 69 /min Dr. Pedro Gonzalez MD Work Phone: 0(328)855-831914 [place] [address] 12-13-2024 09:08-0400 Respiratory rate 18 /min Dr. Pedro Gonzalez MD Work Phone: 0(691)792-788614 [place] [address] 12-13-2024 09:08-0400 SaO2% (BldA) [Mass fraction] 100 % Dr. Pedro Gonzalez MD Work Phone: [facility] 12-13-2024 09:08-0400 Systolic blood pressure 115 mm[Hg] Dr. Pedro Gonzalez MD Work Phone: 7(116)147-649814 [place] [address] 12-13-2024 09:07-0400 Body mass index (BMI) [Ratio] 29.7 kg/m2 Dr. Pedro Gonzalez MD Work Phone: 5(410)750-003914 [place] [address] 12-13-2024 09:07-0400 Body weight 83.[address] Pedro Gonzalez MD Work Phone: [facility] 08-09-2024 09:23-0500 Body height 165.[address] Pedro Gonzalez MD Work Phone: [facility] 08-09-2024 09:23-0500 Body mass index (BMI) [Ratio] 29.9 kg/m2 Dr. Pedro Gonzalez MD Work Phone: 1(167)695-171267 [address] 08-09-2024 09:23-0500 Body weight 81.[address] Pedro Gonzalez MD Work Phone: 2(019)608-956167 [address] 08-09-2024 09:23-0500 Diastolic blood pressure 57 mm[Hg] Dr. Pedro Gonzalez MD Work Phone: 8(570)992-209567 [address] 08-09-2024 09:23-0500 Heart rate 57 /min Dr. Pedro Gonzalez MD Work Phone: 6(426)258-263162 [place] [address] 08-09-2024 09:23-0500 Respiratory rate 16 /min Dr. Pedro Gonzalez MD Work Phone: 9(948)809-297367 [address] 08-09-2024 09:23-0500 Systolic blood pressure 102 mm[Hg] Dr. Pedro Gonzalez MD Work Phone: [facility] 02-09-2022 11:09-0400 Body height 165.[address] Pedro Gonzalez Work Phone: [facility] Work Phone: 02-09-2022 11:09-0400 Body mass index (BMI) [Ratio] 30.8 kg/m2 Dr. Pedro Gonzalez Work Phone: [facility] Work Phone: 02-09-2022 11:09-0400 Body weight 84.[address] Pedro Gonzalez Work Phone: [facility] Work Phone: 02-09-2022 11:09-0400 Diastolic blood pressure 62 mm[Hg] Dr. Pedro Gonzalez Work Phone: [facility] Work Phone: 02-09-2022 11:09-0400 Heart rate 60 /min Dr. Pedro Gonzalez Work Phone: [facility] Work Phone: 02-09-2022 11:09-0400 Respiratory rate 16 /min Dr. Pedro Gonzalez Work Phone: [facility] Work Phone: 02-09-2022 11:09-0400 Systolic blood pressure 130 mm[Hg] Dr. Pedro Gonzalez Work Phone: [facility] Work Phone: 01-27-2022 13:25-0400 Diastolic blood pressure 82 mm[Hg] Dr. Pedro Gonzalez Work Phone: [facility] Work Phone: 01-27-2022 13:25-0400 SaO2% (BldA) [Mass fraction] 94 % Dr. Pedro Gonzalez Work Phone: [facility] Work Phone: 01-27-2022 13:25-0400 Systolic blood pressure 147 mm[Hg] Dr. Pedro Gonzalez Work Phone: [facility] Work Phone: 01-27-2022 10:14-0400 Body height 165.[address] Pedro Gonzalez Work Phone: [facility] Work Phone: 01-27-2022 10:14-0400 Body mass index (BMI) [Ratio] 30.8 kg/m2 Dr. Pedro Gonzalez Work Phone: [facility] Work Phone: 01-27-2022 10:14-0400 Body temperature 97.1 [degF] Dr. Pedro Gonzalez Work Phone: [facility] Work Phone: 01-27-2022 10:14-0400 Body weight 84.[address] Pedro Gonzalez Work Phone: [facility] Work Phone: 01-27-2022 10:14-0400 Heart rate 80 /min Dr. Pedro Gonzalez Work Phone: [facility] Work Phone: 01-27-2022 10:14-0400 Respiratory rate 14 /min Dr. Pedro Gonzalez Work Phone: [facility] Work Phone: 01-14-2022 13:20-0400 Body mass index (BMI) [Ratio] 30.6 kg/m2 Dr. Pedro Gonzalez Work Phone: [facility] Work Phone: 01-14-2022 13:20-0400 Body temperature 97.2 [degF] Dr. Pedro Gonzalez Work Phone: [facility] Work Phone: 01-14-2022 13:20-0400 Body weight 83.[address] Pedro Gonzalez Work Phone: [facility] Work Phone: 01-14-2022 13:20-0400 Diastolic blood pressure 64 mm[Hg] Dr. Pedro Gonzalez Work Phone: [facility] Work Phone: 01-14-2022 13:20-0400 Heart rate 68 /min Dr. Pedro Gonzalez Work Phone: [facility] Work Phone: 01-14-2022 13:20-0400 Respiratory rate 16 /min Dr. Pedro Gonzalez Work Phone: [facility] Work Phone: 01-14-2022 13:20-0400 SaO2% (BldA) [Mass fraction] 97 % Dr. Pedro Gonzalez Work Phone: [facility] Work Phone: 01-14-2022 13:20-0400 Systolic blood pressure 112 mm[Hg] Dr. Pedro Gonzalez Work Phone: [facility] Work Phone: 12-13-2021 13:34-0400 Body mass index (BMI) [Ratio] 30.9 kg/m2 Dr. Pedro Gonzalez Work Phone: [facility] Work Phone: 12-13-2021 13:34-0400 Body weight 84.[address] Pedro Gonzalez Work Phone: [facility] Work Phone: 12-13-2021 13:34-0400 Diastolic blood pressure 66 mm[Hg] Dr. Pedro Gonzalez Work Phone: [facility] Work Phone: 12-13-2021 13:34-0400 Heart rate 65 /min Dr. Pedro Gonzalez Work Phone: [facility] Work Phone: 12-13-2021 13:34-0400 Respiratory rate 18 /min Dr. Pedro Gonzalez Work Phone: [facility] Work Phone: 12-13-2021 13:34-0400 Systolic blood pressure 129 mm[Hg] Dr. Pedro Gonzalez Work Phone: [facility] Work Phone: 12-13-2021 13:34-0400 Body height 165.[address] Pedro Gonzalez Work Phone: [facility] Work Phone: 12-13-2021 13:34-0400 Body mass index (BMI) [Ratio] 30.9 kg/m2 Dr. Pedro Gonzalez Work Phone: [facility] Work Phone: 12-13-2021 13:34-0400 Body weight 84.[address] Pedro Gonzalez Work Phone: [facility] Work Phone: 12-13-2021 13:34-0400 Diastolic blood pressure 66 mm[Hg] Dr. Pedro Gonzalez Work Phone: [facility] Work Phone: 12-13-2021 13:34-0400 Heart rate 65 /min Dr. Pedro Gonzalez Work Phone: [facility] Work Phone: 12-13-2021 13:34-0400 Respiratory rate 18 /min Dr. Pedro Gonzalez Work Phone: [facility] Work Phone: 12-13-2021 13:34-0400 Systolic blood pressure 129 mm[Hg] Dr. Pedro Gonzalez Work Phone: [facility] Work Phone: 09-10-2021 07:52-0500 Body mass index (BMI) [Ratio] 30.6 kg/m2 Dr. Pedro Gonzalez Work Phone: [facility] Work Phone: 09-10-2021 07:52-0500 Body weight 83.[address] Pedro Gonzalez Work Phone: [facility] Work Phone: 09-10-2021 07:52-0500 Diastolic blood pressure 63 mm[Hg] Dr. Pedro Gonzalez Work Phone: [facility] Work Phone: 09-10-2021 07:52-0500 Heart rate 59 /min Dr. Pedro Gonzalez Work Phone: [facility] Work Phone: 09-10-2021 07:52-0500 Respiratory rate 16 /min Dr. Pedro Gonzalez Work Phone: [facility] Work Phone: 09-10-2021 07:52-0500 Systolic blood pressure 129 mm[Hg] Dr. Pedro Gonzalez Work Phone: [facility] Work Phone: Encounters Encounter Date Encounter Type Care Provider Facility Start: 04-16-2025 End: 04-16-[address] Pedro Gonzalez MD Work Phone: -[facility] Start: 04-16-2025 End: 04-16-[address] Pedro Gonzalez MD -[facility] Start: 04-15-2025 End: 04-16-2025 ambulatory Pedro Gonzalez Facility:[facility] Start: 04-15-[address] Pedro Gonzalez MD -[facility] Work Phone: Start: 04-07-2025 End: 04-07-2025 Patient encounter procedure Andrzej Marinelli NP-C -[facility] Work Phone: Start: 04-07-2025 End: 04-07-[address] Pedro Gonzalez MD Work Phone: -[facility] Start: 04-02-2025 End: 04-02-2025 Emergency department patient visit Dr. Pedro Gonzalez MD Work Phone: -Emergency Department Work Phone: Start: 02-26-2025 End: 02-26-2025 Patient encounter procedure Andrzej Marinelli NP-C -[facility] Work Phone: Start: 02-26-2025 End: 02-26-[address] Pedro Gonzalez MD Work Phone: -[facility] Start: 02-11-2025 Non-patient / Non-visit [facility] H[facility] Work Phone: Start: 02-11-2025 End: 02-11-[address] Pedro Gonzalez MD Work Phone: -Pulmonary Services/Neurology Start: 02-11-2025 End: 02-11-2025 Patient encounter procedure Andrzej CUELLAR -Pulmonary Services/Neurology Work Phone: Start: 02-11-2025 End: 02-11-2025 Patient encounter procedure Andrzej Marinelli NP-C -[facility] Work Phone: Start: 02-11-2025 End: 02-11-[address] Pedro Gonzalez MD Work Phone: [facility] Start: 02-11-2025 End: 02-11-2025 ambulatory Pedro Gonzalez Facility:[facility] Start: 02-08-2025 Non-patient / Non-[facility] Work Phone: Start: 02-08-2025 Non-patient / Non-visit Dr. Glen Haywood MD [facility] Start: 02-07-2025 Non-patient / Non-visit Dr. Glen Haywood MD [facility] Start: 02-07-2025 Non-patient / Non-visit Dr. Criss mckeon MD [facility] Start: 02-07-2025 Non-patient / Non-visit Dr. Pedro Valentin [facility] Work Phone: Start: 02-06-2025 Non-patient / Non-visit Dr. Criss mckeon MD [facility] Start: 02-06-2025 Non-patient / Non-visit Dr. Pedro Valentin [facility] Work Phone: Start: 2025 ambulatory Cj Gardiner Facility:[facility] Start: 2025 Non-patient / Non-visit [facility]. Caba [facility] Start: 2025 Non-patient / Non-visit Dr. Pedro Valentin [facility] Work Phone: Start: 02-04-2025 End: 02-08-2025 Evaluation and management of inpatient Dr. Rea Cancino MD -Intensive Care Unit Work Phone: Start: 02-04-2025 ambulatory Pedro Gonzalez Facility:[facility] Start: 02-04-2025 Non-patient / Non-visit Dr. Rea Cancino MD -[facility] Work Phone: Start: 02-04-2025 End: 02-04-2025 Patient encounter procedure Andrzej Marinelli NP-C -[facility] Work Phone: Start: 02-04-2025 End: 02-04-[address] Pedro Gonzalez MD Work Phone: [facility] Work Phone: Start: 12-25-2024 End: 12-25-2024 Patient encounter procedure Andrzej Marinelli NP- -[facility] Work Phone: Start: 12-25-2024 End: 12-25-[address] Pedro Gonzalez MD Work Phone: [facility] Work Phone: Start: 12-20-2024 ambulatory Pedro Gonzalez Facility:[facility] Start: 12-13-2024 Non-patient / Non-visit Dr. Gaurang lynch MD -[facility] Work Phone: Start: 12-12-2024 ambulatory Aden Knutson Facility:[facility] Start: 12-12-2024 Non-patient / Non-visit Dr. Aden mccartney MD -[facility] Start: 12-12-2024 Non-patient / Non-visit Dr. Gaurang lynch MD -[facility] Work Phone: Start: 12-12-2024 ambulatory Gaurang Cortes Facility:[facility] Start: 12-12-2024 End: 12-13-2024 Evaluation and management of inpatient Dr. Gaurang Cortes MD -[facility] Work Phone: Start: 11-18-2024 End: 11-18-[address] Pedro Gonzalez MD Work Phone: [facility] Work Phone: Start: 11-18-2024 End: 11-18-2024 Patient encounter procedure Karo Sewell NP- -[facility] Work Phone: Start: 11-18-2024 End: 11-18-2024 ambulatory Karo Sewell NP Facility:[facility] Start: 11-04-2024 End: 11-04-[address] Pedro Gonzalez MD Work Phone: [facility] Work Phone: Start: 11-04-2024 End: 11-04-2024 Patient encounter procedure Karo Sewell NETWORK TECHNICIAN-C -[facility], [place] Work Phone: Start: 11-04-2024 End: 11-04-2024 ambulatory Pedro Gonzalez Facility:[facility] Start: 08-09-2024 End: 08-09-2024 Patient encounter procedure 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 -Laboratory Work Phone: Start: 08-09-2024 End: 08-09-2024 Patient encounter procedure 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 -[facility] Work Phone: Start: 08-09-2024 End: 08-09-2024 ambulatory Pedro Gonzalez VSC Facility:[facility] Start: 08-09-2024 End: 08-09-2024 ambulatory Andrzej Marinelli NETWORK TECHNICIAN Facility:[facility] Start: 03-15-2022 Non-patient / Non-visit Dr. Wesley Gonzalez Work Phone: [facility] Start: 03-11-2022 Non-patient / Non-visit Dr. Wesley Gonzalez Work Phone: [facility] Start: 03-11-2022 End: 03-11-[address] Pedro Gonzalez Work Phone: [facility]-Cardiovascular Services Start: 02-09-2022 End: 02-09-[address] Pedro Gonzalez Work Phone: [facility] Start: 02-02-2022 End: 02-02-[address] Pedro Gonzalez Work Phone: [facility]-Sleep Lab Start: 02-01-2022 End: 02-01-[address] Pedro Gonzalez Work Phone: [facility]-Laboratory Start: 01-27-2022 End: 01-27-2022 Emergency department patient visit Dr. Pedro Gonzalez Work Phone: [facility]-Emergency Department Start: 01-14-2022 End: 01-14-[address] Pedro Gonzalez Work Phone: [facility]-Pulmonary Medicine [facility] Start: 12-31-2021 End: 12-31-[address] Pedro Gonzalez Work Phone: [facility]-Sleep Lab Start: 12-13-2021 End: 12-13-[address] Pedro Gonzalez Work Phone: [facility] Start: 09-10-2021 End: 09-10-[address] Pedro Gonzalez Work Phone: [facility] Start: 02-27-2019 End: 05-10-2019 Patient encounter procedure SAJI PENA [facility] Start: 02-25-2019 End: 02-26-2019 Evaluation and management of inpatient SAJI PENA [facility] Start: 02-07-2019 End: 02-07-2019 Patient encounter procedure SAJI PENA [facility] Start: 01-11-2019 End: 01-11-2019 Patient encounter procedure SAJI PENA [facility] Start: 03-07-2018 End: 03-08-2018 Evaluation and management of inpatient FAROOQ R ALLEN [facility] Start: 01-12-2018 End: 01-19-2018 Patient encounter BHARGAV Mejia (PA) [facility] Start: 12-29-2017 End: 12-29-2017 Patient encounter FAROOQ R ALLEN [facility] Start: 12-27-2017 End: 12-29-2017 Evaluation and management of inpatient FAROOQ R ALLEN [facility] Start: 12-26-2017 End: 01-01-2018 Patient encounter BHARGAV Mejia (PA) [facility] Start: 12-21-2017 End: 12-21-2017 Patient encounter LADARIUS CANCINO [facility] Start: 11-22-2017 End: 11-23-2017 Patient encounter LADARIUS CANCINO [facility] Start: 11-10-2017 End: 11-20-2017 Patient encounter RACHAEL PEDERSEN [facility] Start: 11-03-2017 End: 11-03-2017 Patient encounter LADARIUS CANCINO [facility] Start: 11-03-2017 End: 11-03-2017 Patient encounter LADARIUS CANCINO [facility] Start: 11-03-2017 End: 11-03-2017 Patient encounter LADARIUS [facility] Procedures Date Procedure Procedure Detail Performing Clinician [...] Comment: URIN ALYSIS Performed By: #### 2 [id number] #### [facility],[address] [place] [address] Start: 08-14-2001 History of coronary artery bypass grafting H/O coronary artery bypass surgery 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 Comment on above: CABG: GRAJEDA to LAD ; Redo CABG GRAJEDA to LAD, SVG to RPDA 01/13 Plan of Treatment Date Care Activity Detail Author Start: 04-02-2025 [facility] Start: 04-02-2025 [facility] Start: 02-11-2025 24 Hour ECG [facility] Start: 02-08-2025 Patient discharge [facility] Start: 02-07-2025 Referral to general surgeon [facility] Start: 02-06-2025 Application of inter mittent pneumatic compression device [facility] Start: 02-06-2025 Care planning and pr oblem solving actions [facility] Start: 02-06-2025 End: 02-06-2025 Care planning and problem solving actions [facility] Start: 2025 Thyroid stimulating hormone measurement [facility] Start: 2025 [facility] Start: 2025 Following clinical p athway protocol [facility] Start: 2025 Application of elastic bandage [facility] Start: 2025 Assessment of risk o f venous thromboembolism [facility] Start: 2025 Bacteria identified in Sputum by Culture [facility] Start: 2025 Consultation [facility] Start: 2025 Elevation of affecte d extremity [facility] Start: 2025 Fall prevention [facility] Start: 2025 Incentive spirometry [facility] Start: 2025 Inhalation therapy procedure [facility] Start: 2025 Insertion of cathete r into peripheral vein [facility] Start: 2025 Introduction of urin carol catheter [facility] Start: 2025 Measuring intake and output [facility] Start: 2025 Notification of physician [facility] Start: 2025 Oxygen therapy [facility] Start: 2025 Patient education [facility] Start: 2025 Patient referral to dietitian [facility] Start: 2025 Providing care accor ding to standard [facility] Start: 2025 Provision of activit y privileges [facility] Start: 2025 Referral for physical therapy [facility] Start: 2025 Referral to food scientist [facility] Start: 2025 Referral to occupati onal therapist [facility] Start: 2025 Referral to service [facility] Start: 2025 Taking nasal swab [facility] Start: 2025 [facility] Start: 02-04-2025 Verification routine [facility] Start: 02-04-2025 Partial thromboplast in time, activated [facility] Start: 02-04-2025 Prothrombin time [facility] Start: 02-04-2025 Respiratory pathogen s DNA and RNA panel - Respiratory specimen by RHIANNA with probe detection [facility] Start: 02-04-2025 Admission procedure [facility] Start: 02-04-2025 Continuous pulse oximetry [facility] Start: 02-04-2025 Dual pressure sponta neous ventilation support [facility] Start: 02-04-2025 End: 02-04-2025 [facility] Start: 02-04-2025 Bacteria identified in Blood by Culture Blood Culture [facility] Start: 02-04-2025 Bacteria identified in Urine by Culture Urine Culture [facility] Start: 02-04-2025 Blood culture Blood Culture [facility] Start: 02-04-2025 End: 02-04-2025 Evaluation of diagnostic study results [facility] Start: 12-13-2024 Patient discharge [facility] Start: 12-12-2024 Following clinical p athway protocol [facility] Start: 12-12-2024 Transfusion of blood product [facility] Start: 12-12-2024 Ambulation without limitation [facility] Start: 12-12-2024 Assessment of risk o f venous thromboembolism [facility] Start: 12-12-2024 Catheterization of vein [facility] Start: 12-12-2024 Elevation of affecte d extremity [facility] Start: 12-12-2024 Incentive spirometry [facility] Start: 12-12-2024 Inhalation therapy procedure [facility] Start: 12-12-2024 Insertion of cathete r into peripheral vein [facility] Start: 12-12-2024 Measuring intake and output [facility] Start: 12-12-2024 Notification of physician [facility] Start: 12-12-2024 Oxygen therapy [facility] Start: 12-12-2024 Patient education [facility] Start: 12-12-2024 Providing care accor ding to standard [facility] Start: 12-12-2024 Hospital admission, emergency, from emergency room, medical nature [facility] Start: 12-12-2024 Admission procedure [facility] Start: 12-12-2024 End: 12-12-2024 [facility] Alanine aminotransfe rase [Enzymatic activity/volume] in Serum or Plasma [facility] Albumin [Mass/volume ] in Serum or Plasma [facility] Alkaline phosphatase [Enzymatic activity/volume] in Serum or Plasma [facility] Anion gap in Serum or Plasma [facility] Basic metabolic 2008 panel with ionized calcium - Serum or Plasma [facility] Bilirubin, total measurement [facility] BUN/Creatinine ratio [facility] Calcium [Mass/volume ] in Serum or Plasma [facility] Carbon dioxide, tota l [Moles/volume] in Central venous blood [facility] Cholesterol [Mass/vo lume] in Serum or Plasma [facility] Cholesterol in HDL [Mass/volume] in Serum or Plasma [facility] Creatinine [Mass/vol ume] in Serum or Plasma [facility] Erythrocyte mean cor puscular volume determination [facility] Glucose [Mass/volume ] in Serum or Plasma [facility] Hematocrit [Volume F raction] of Blood [facility] Hemoglobin [Mass/vol ume] in Blood [facility] INR in Blood by Coag ulation assay [facility] Leukocytes [#/volume] in Blood [facility] Low density lipoprot ein cholesterol measurement [facility] Mean corpuscular hem oglobin concentration determination [facility] Mean corpuscular hem oglobin determination [facility] Measurement of renal function [facility] Neutrophil count [facility] Neutrophil percent differential count [facility] Patient Education [facility] Work Phone: Patient referral [facility] Work Phone: Platelets [#/volume] in Blood [facility] Potassium measurement [facility] Procalcitonin [Mass/ volume] in Serum or Plasma by Immunoassay [facility] Red blood cell count [facility] Red cell distributio n width determination [facility] Serum chloride measurement [facility] Sodium measurement [facility] Total cholesterol:HD L ratio measurement [facility] Total protein measurement [facility] Triglycerides measurement [facility] Urea nitrogen [Mass/ volume] in Serum or Plasma [facility] Urine culture [facility] VLDL cholesterol measurement [facility] Payers Date Payer Category Payer Unknown [id number] 2024 Self-pay [id number] 1940 Unknown [id number] 2.16.84 0.1.163452.3.579.2.651 1940 Unknown [id number] 2.16.84 0.1.915689.3.579.2.651 1940 Unknown [id number] 2.16.84 0.1.745487.3.579.2.651 Unknown [id number] Unknown Unknown [facility] [employer] . [id number] Unknown [id number] 2.16.8 40.1.451785.3.579.2.462 Unknown [id number] 2.16.8 40.1.821100.3.579.2.462 Unknown [id number] 2.16.8 40.1.563553.3.579.2.462 Unknown [id number] 2.16.8 40.1.518985.3.579.2.462 Unknown [id number] 2.16.8 40.1.108542.3.579.2.462 Unknown [id number] 2.16.8 40.1.743892.3.579.2.462 Unknown [id number] 2.16.8 40.1.168699.3.579.2.462 Unknown [id number] 2.16.8 40.1.328587.3.579.2.462 Unknown [id number] 2.16.8 40.1.580855.3.579.2.462 Unknown [id number] 2.16.8 40.1.127232.3.579.2.462 Unknown [id number] 2.16.8 40.1.141266.3.579.2.462 Unknown [id number] 2.16.8 40.1.624438.3.579.2.462 Unknown [id number] 2.16.8 40.1.503072.3.579.2.462 Unknown [id number] 2.16.8 40.1.880904.3.579.2.462 Unknown [id number] 2.16.8 40.1.978775.3.579.2.462 Unknown [id number] 2.16.8 40.1.312540.3.579.2.462 Unknown [id number] 2.16.8 40.1.453134.3.579.2.462 Unknown [id number] 2.16.8 40.1.005834.3.579.2.462 Unknown [id number] 2.16.8 40.1.901760.3.579.2.462 Unknown [id number] 2.16.8 40.1.267062.3.579.2.462 Unknown [id number] 2.16.8 40.1.216706.3.579.2.462 Unknown [id number] 2.16.8 40.1.971368.3.579.2.462 Unknown [id number] 2.16.8 40.1.326609.3.579.2.462 Unknown [id number] 2.16.8 40.1.072157.3.579.2.462 Unknown [id number] 2.16.8 40.1.230376.3.579.2.462 Unknown [id number] 2.16.8 40.1.438275.3.579.2.462 Unknown [id number] 2.16.8 40.1.911409.3.579.2.462 Unknown [id number] 2.16.8 40.1.846150.3.579.2.462 Unknown [id number] 2.16.8 40.1.922285.3.579.2.462 Unknown [id number] 2.16.8 40.1.752739.3.579.2.462 Unknown [id number] 2.16.8 40.1.251461.3.579.2.462 Unknown [id number] 2.16.8 40.1.570862.3.579.2.462 Social History Date Type Detail Facility Start: 12-13-2021 End: 02-09-2022 Tobacco smoking status NHIS Unknown if ever smoked [facility] Work Phone: Start: 06-20-2019 With Family [facility] Start: 1940 Sex Assigned At Male [facility] Start: 07-14-2023 End: 04-02-2025 Tobacco smoking status NHIS Never smoked tobacco (finding) [facility] Start: 11-09-2024 End: 11-21-2024 Sex Male (finding) [facility] Sex Male [facility] Medical Equipment Procedure Code Equipment Code [...] IVELISSE 3GRM HEMOSTAT ABS FDA Start: 06-20-2019 ([id number]) Drug-eluting cor onary artery stent, bioabsorbable-polymer -coated ()[id number] FDA Start: 03-29-2022 Femoral vessel s uture implantation set ()[id number] FDA Start: 03-29-2022 Goals Date Patient Goal Desired Activity /State Functional Status Date Assessment Result Facility 02-08-2025 Functional status Ambulates [facility] Work Phone: 12-13-2024 Functional status Activity Ability Indepe ndent [facility] Work Phone: 12-13-2024 Functional status Patient Activity Ambula pat [facility] Work Phone: Mental Status Date Assessment Result Facility 02-08-2025 Cognitive function Voice/Name [facility] Work Phone: 02-04-2025 Cognitive function Level Of Cons ciousness Awake;Alert;Appropriate;Follo ws Commands [facility] Work Phone: 12-13-2024 Cognitive function Voice/Name [facility] Work Phone: Clinical Notes 08-09-2024 to 04-02-2025 Note Date & Type Note Facility 04-02-2025 Radiology Diagnostic study note [facility] Imaging Services [address] [place], [place] [address] Chest PA and Lateral MR#: [id number] Acct: [id number] Name: FLORIN VARGAS Rep #: [id number] : 1940 M 85 From: Pancho Day MD PCP: Dr. Pedro Gonzalez MD Status: REG ER Study:Chest PA and Lateral Date of Exam: 04/02/25 Exam# [id number] Ordering Dr: Wesley Montes MD PROCEDURE: CHEST [...] seen, right worse than left. Reading Location: [place] [address] CC: Dr. Pedro Gonzalez MD; Dr. Dionne Montes MD ~ Agricultural Plow Operator: Signed [facility] 02-08-2025 Progress note Note Date/Time February 08, 2025 1:16pm [facility] Medical Records Department [address] [place] [address] Progress Note - Surgery 02/08/25 1307 MR#: [id number] Acct: [id number] Name: FLORIN VARGAS Rep #:[id number] : 1940 85 From: Glen Haywood MD PCP: Dr. Pedro Gonzalez MD Status:ADM IN Location: [place] [address] Subjective Subjective Patient seen and evaluated on [...] % (Auto) 51.1, Lymph % (Auto) 38.6, [place] % (Auto) 6.6, Eos % (Auto) 3.1, [...] Cosigner Signature (if applicable): CC: ~ Signed [facility] Work Phone: 1(419) 593-134306-28-2025 Discharge summary [facility] Medical Records Department [address] [place] [address] Discharge Summary 02/08/25 1418 MR#: [id number] Acct: [id number] Name: FLORIN VARGAS Rep #:[id number] : 1940 85 From: Yeny Gabriel DO PCP: Dr. Pedro Gonzalez MD Status:ADM IN Location: [place] [address] Providers Date of Admission: 02/04/25 Primary Care Physician: Dr. Pedro Gonzalez MD Consultations 02/05/25 00:02 Consult: Cardiology Routine Consulting Provider: Cj Gardiner Reason for Consult: HF Exac, elevated troponins EMERGENT Consult: No MD Notified: Yes Date Notified: 02/04/25 Time Notified: 22:45 Method of Notification: Text Consult: Cone Picker / Pulmonary Medicine Routine Consulting Provider: Intensivists/Pulmonary [...] who presented to the emergency department at [facility] on 02/04/2025 with a chief complaint of [...] body habitus Constitutional Narrative: Morbidly obese, white Anglican male, reclining, family at bedside, appears well, [...] % (Auto) 51.1, Lymph % (Auto) 38.6, [place] % (Auto) 6.6, Eos % (Auto) 3.1, [...] Self Care Charges/Coding Visit Charges Inpatient E&M: 35670 Disch Hosp >30min 02/08/25 1441 Cosigner Signature (if applicable): CC: Dr. Cj Gardiner MD; Dr. Pedro Gonzalez MD; Dr. Yeny Gabriel DO; Dr. Glen Haywood MD~ Signed [facility]06-28-20[facility] Progress note Author Criss Castro [facility] Note Date/Time February 08, 2025 12:1 0pm [facility] Medical Records Department [address] [place] [address] Progress Note - Cardiology 02/08/25 1209 MR#: [id number] Acct: [id number] Name: FLORIN VARGAS Rep #:[id number] : 1940 85 From: Criss Castro MD PCP: Dr. Pedro Gonzalez MD Status:ADM IN Location: [place] [address] Subjective Subjective Patient feels very well. Ambulated [...] % (Auto) 51.1, Lymph % (Auto) 38.6, [place] % (Auto) 6.6, Eos % (Auto) 3.1, [...] % (Auto) 51.1, Lymph % (Auto) 38.6, [place] % (Auto) 6.6, Eos % (Auto) 3.1, [...] IMPRESSION: Abnormal gallbladder ejection fraction. Reading Location: [facility] Physical Exam Narrative Comfortable. No apparent distress. [...] Cosigner Signature (if applicable): CC: ~ Signed [facility] Work Phone: 1(698) 823-714706-28-2025 Progress note [facility] Medical Records Department [address] [place] [address] Progress Note - Surgery 02/08/25 1307 MR#: [id number] Acct: [id number] Name: FLORIN VARGAS Rep #:[id number] : 1940 85 From: Glen Haywood MD PCP: Dr. Pedro Gonzalez MD Status:ADM IN Location: [place] [address] Subjective Subjective Patient seen and evaluated on [...] % (Auto) 51.1, Lymph % (Auto) 38.6, [place] % (Auto) 6.6, Eos % (Auto) 3.1, [...] Cosigner Signature (if applicable): CC: ~ Signed [facility]06-28-2025 Progress note [facility] Medical Records Department [address] [place] [address] Progress Note - Cardiology 02/08/25 1209 MR#: [id number] Acct: [id number] Name: FLORIN VARGAS Rep #:[id number] : 1940 85 From: Criss Castro MD PCP: Dr. Pedro Gonzalez MD Status:ADM IN Location: [place] [address] Subjective Subjective Patient feels very well. Ambulated [...] % (Auto) 51.1, Lymph % (Auto) 38.6, [place] % (Auto) 6.6, Eos % (Auto) 3.1, [...] % (Auto) 51.1, Lymph % (Auto) 38.6, [place] % (Auto) 6.6, Eos % (Auto) 3.1, [...] IMPRESSION: Abnormal gallbladder ejection fraction. Reading Location: [id number] Physical Exam Narrative Comfortable. No apparent distress. [...] Cosigner Signature (if applicable): CC: ~ Signed [facility]06-27-2025 Consult note Author Glen Haywood [facility] Note Date/Time February 07, 2025 5:21 pm [facility] Medical Records Department [address] [place] [address] [place] [address] Consultation - Surgical 02/07/25 1707 MR#: [id number] Acct: [id number] Name: FLORIN VARGAS Rep #:[id number] : 1940 85 From: Glen Haywood MD PCP: Dr. Pedro Gonzalez MD Status:ADM IN Location: [place] [address] Assessment & Plan Assessment/Plan (1) Gallbladder anomaly: [...] a 85 M who was admitted to [facility] several days ago with complaints of worsening shortness of breath, cough and general weakness/malaise. Patient does have a history of heart failure with a very low ejection fraction. She has had a previous cardiac surgery. Apparentlyhe was feeling unwell for several days prior to presenting to the emergency department. He was feeling lightheaded and short of breath. Patient was seen by his food scientist on the day of admission and his [...] quadrant. White count has remained normal [facility], [facility] Medical History GI treated with BiPAP Valvular heart disease HTN (hypertension) CAD (coronary artery disease) HFrEF (heart failure with reduced ejection fraction) Daytime hypersomnolence Nonrheumatic aortic (valve) stenosis Hyperlipidemia Atherosclerotic heart disease of [place] coronary artery without angina pectoris Atherosclerosis of [...] 6 current occupational status: employed current occupation: [employer] current occupational exposures/hazards: No pets and [...] % (Auto) 56.9, Lymph % (Auto) 31.2, [place] % (Auto) 9.8, Eos % (Auto) 1.1, [...] IMPRESSION: Abnormal gallbladder ejection fraction. Reading Location: [facility] Charges/Coding Visit Charges Inpatient E&M: 85272 Init Hosp 02/07/25 1721 <Electronically signed by Glen Haywood MD> Cosigner Signature (if applicable): CC: Dr. Rea Cancino MD; Dr. Pedro Gonzalez MD~ Signed [facility] Work Phone: 1(345) 143-703806-27-2025 Consult note [facility] Medical Records Department [address] [place] [address] Consultation - Surgical 02/07/25 1702 MR#: [id number] Acct: [id number] Name: FLORIN VARGAS Rep #:[id number] : 1940 85 From: Glen Haywood MD PCP: Dr. Pedro Gonzalez MD Status:ADM IN Location: [place] [id number]- Assessment & Plan Assessment/Plan (1) Gallbladder anomaly: [...] a 85 M who was admitted to [facility] several days ago with complaints of worsening shortness of breath, cough and general weakness/malaise. Patient does have a history of heart failure with a very low ejection fraction. She has had a previous cardiac surgery. Apparentlyhe was feeling unwell for several days prior to presenting to the emergency department. Hewas feeling lightheaded and short of breath. Patient was seen by his food scientist on the day of admission and his [...] quadrant. White count has remained normal [facility], [facility] Medical History GI treated with BiPAP Valvular heart disease HTN (hypertension) CAD (coronary artery disease) HFrEF (heart failure with reduced ejection fraction) Daytime hypersomnolence Nonrheumatic aortic (valve) stenosis Hyperlipidemia Atherosclerotic heart disease of [place] coronary artery without angina pectoris Atherosclerosis of [...] % (Auto) 56.9, Lymph % (Auto) 31.2, [place] % (Auto) 9.8, Eos % (Auto) 1.1, [...] IMPRESSION: Abnormal gallbladder ejection fraction. Reading Location: [facility] Charges/Coding Visit Charges Inpatient E&M: 59713 Init Hosp L3 02/07/25 1721 Cosigner Signature (if applicable): CC: Dr. Rea Cancino MD; Dr. Pedro Gonzalez MD~ Signed [facility]06-27-2025 Progress note Author Pedro Galvan [facility] Note Date/Time February 07, 2025 1:50 pm [facility] Medical Records Department [address] [place] [address] Progress Note - Hospitalist 02/07/25 0836 MR#: [id number] Acct: [id number] Name: FLORIN VARGAS Rep #:[id number] : 1940 85 From: Pedro Galvan DO PCP: Dr. Pedro Gonzalez MD Status:ADM IN Location: [place] [address]- Reason for Visit Reason for Visit: Diagnoses [...] % (Auto) 56.9, Lymph % (Auto) 31.2, [place] % (Auto) 9.8, Eos % (Auto) 1.1, [...] at bedside. Charges/Coding Visit Charges Inpatient E&M: 29395 Subs Hosp L2 02/07/25 6573 <Electronically signed by Pedro Jopperi DO> Cosigner Signature (if applicable): CC: ~ Signed [facility] Work Phone: 1(590) 636-353406-27-2025 Progress note [facility] Medical Records Department [address] [place] [address] Progress Note - Hospitalist 02/07/25835 MR#: [id number] Acct: [id number] Name: FLORIN VARGAS Rep #:[id number] : 1940 85 From: Pedro Galvan DO PCP: Dr. Pedro Gonzalez MD Status:ADM IN Location: [place] [address] Reason for Visit Reason for Visit: Diagnoses [...] % (Auto) 56.9, Lymph % (Auto) 31.2, [place] % (Auto) 9.8, Eos % (Auto) 1.1, [...] at bedside. Charges/Coding Visit Charges Inpatient E&M: 18566 Subs Hosp L2 02/07/25 1359 Cosigner Signature (if applicable): CC: ~ Signed [facility]06-27-2025 Nuclear medicine Diagnostic study note [facility] Imaging Services [address] [place], [place] [address] Hepatobilliary Img w/Pharm Int MR#: [id number] Acct: [id number] Name: FLORIN VARGAS Rep #: [id number] : 1940 M 85 From: Gibson Esparza MD PCP: Dr. Pedro Gonzalez MD Status: ADM IN Study:Hepatobilliary Img w/Pharm Int Date of Exam: 02/07/25 Exam# [id number] Ordering Dr: Pedro Galvan DO PROCEDURE: HEPATOBILLIARY [...] IMPRESSION: Abnormal gallbladder ejection fraction. Reading Location: [facility] CC: Dr. Rea Cancino MD; Dr. Pedro Galvan DO; Dr. Pedro Gonzalez MD ~ Agricultural Plow Operator: Signed [facility]06-27-2025 Progress note Author Criss Castro [facility] Note Date/Time February 07, 2025 9:58 am [facility] Medical Records Department [address] [place] [address] Progress Note - Cardiology 02/07/2556 MR#: [id number] Acct: [id number] Name: FLORIN VARGAS Rep #:[id number] : 1940 85 From: Criss Castro MD PCP: Dr. Pedro Gonzalez MD Status:ADM IN Location: [place] [address] Subjective Subjective Feeling well. Denies any complaints [...] % (Auto) 56.9, Lymph % (Auto) 31.2, [place] % (Auto) 9.8, Eos % (Auto) 1.1, [...] Neut % (Auto)56.9, Lymph % (Auto) 31.2, [place] % (Auto) 9.8, Eos % (Auto) 1.1, [...] Cosigner Signature (if applicable): CC: ~ Signed [facility] Work Phone: [phone]) 702-252306-27-2025 Progress note [facility] Medical Records Department [address] [place] [address] Progress Note - Cardiology 02/07/25 0956 MR#: [id number] Acct: [id number] Name: FLORIN VARGAS Rep #:[id number] : 1940 85 From: Criss Castro MD PCP: Dr. Pedro Gonzalez MD Status:ADM IN Location: [place] [address] Subjective Subjective Feeling well. Denies any complaints [...] % (Auto) 56.9, Lymph % (Auto) 31.2, [place] % (Auto) 9.8, Eos % (Auto) 1.1, [...] Neut % (Auto)56.9, Lymph % (Auto) 31.2, [place] % (Auto) 9.8, Eos % (Auto) 1.1, [...] Cosigner Signature (if applicable): CC: ~ Signed [facility]06-26-2025 Progress note Author Pedro Galvan [facility] Note Date/Time February 06, 2025 12:5 3pm [facility] Medical Records Department [address] [place] [address] Progress Note - Hospitalist 02/06/25704 MR#: [id number] Acct: [id number] Name: FLORIN VARGAS Rep #:[id number] : [...] % (Auto) 68.2, Lymph % (Auto) 23.0, [place] % (Auto) 8.2, Eos % (Auto) 0.0, [...] volume overload. Charges/Coding Visit Charges Inpatient E&M: 24797 Subs Hosp L3 02/06/25 1253 <Electronically signed by Pedro Galvan DO> Cosigner Signature (if applicable): CC: ~ Signed [facility] Work Phone: [phone]) 891-909106-26-2025 Progress note [facility] Medical Records Department [address] [place] [address] Progress Note - Hospitalist 02/06/25 0705 MR#: [id number] Acct: [id number] Name: FLORIN VARGAS Rep #:[id number] : [...] % (Auto) 68.2, Lymph % (Auto) 23.0, [place] % (Auto) 8.2, Eos % (Auto) 0.0, [...] volume overload. Charges/Coding Visit Charges Inpatient E&M: 23356 Subs Hosp L3 02/06/25 1253 Cosigner Signature (if applicable): CC: ~ Signed [facility]06-26-2025 Progress note Author Criss Castro [facility] Note Date/Time February 06, 2025 8:46 am [facility] Medical Records Department [address] [place] [address] Progress Note - Cardiology 02/06/25 0839 MR#: [id number] Acct: [id number] Name: FLORIN VARGAS Roz Rep #:[id number] [...] % (Auto) 68.2, Lymph % (Auto) 23.0, [place] % (Auto) 8.2, Eos % (Auto) 0.0, [...] % (Auto) 68.2, Lymph % (Auto) 23.0, [place] % (Auto) 8.2, Eos % (Auto) 0.0, [...] Cosigner Signature (if applicable): CC: ~ Signed [facility] Work Phone: [phone]) 844-593506-26-2025 Progress note Author Lang Guzman [facility] Note Date/Time February 06, 2025 8:05 am [facility] Medical Records Department [address] [place] [address] Progress Note - [facility] 02/06/25 0759 MR#: [id number] Acct: [id number] Name: FLORIN VARGAS Rep #:[id number] : [...] noted above. This note was generated with [employer] dictation software. It may contain incorrectwords, spelling, [...] % (Auto) 68.2, Lymph % (Auto) 23.0, [place] % (Auto) 8.2, Eos % (Auto) 0.0, [...] affect normal Charges/Coding Visit Charges Inpatient E&M: 91654 Subs Hosp L2 02/06/25 0805 <Electronically signed by Lang Guzman DO> Cosigner Signature (if applicable): CC: ~ Signed [facility] Work Phone: [phone]) 173-872806-26-2025 Progress note [facility] Medical Records Department [address] [place] [address] Progress Note - Cardiology 02/06/25 0839 MR#: [id number] Acct: [id number] Name: FLORIN VARGAS Rep #:[id number] : [...] % (Auto) 68.2, Lymph % (Auto) 23.0, [place] % (Auto) 8.2, Eos % (Auto) 0.0, [...] % (Auto) 68.2, Lymph % (Auto) 23.0, [place] % (Auto) 8.2, Eos % (Auto) 0.0, [...] Cosigner Signature (if applicable): CC: ~ Signed [facility]06-26-2025 Progress note [facility] Medical Records Department [address] [facility] [place] [address] Progress Note - [facility] 02/06/25 0759 MR#: [id number] Acct: [id number] Name: FLORIN VARGAS Rep #:[id number] : [...] % (Auto) 68.2, Lymph % (Auto) 23.0, [place] % (Auto) 8.2, Eos % (Auto) 0.0, [...] affect normal Charges/Coding Visit Charges Inpatient E&M: 63052 Subs Hosp L2 02/06/25 0805 Cosigner Signature (if applicable): CC: ~ Signed [facility]06-25-2025 Consult note Author Cj Gardiner [facility] Note Date/Time 2025 8:47 pm [facility] Medical Records Department [address] [place] [address] Consultation - Cardiology 02/05/252036 MR#: [id number] Acct: [id number] Name: FLORIN VARGAS Rep #:[id number] : [...] proximal, and mid RCA on 11/22/2017 at [facility], [facility] at [facility] in 2001 with SVG to LCX and SVG toRPDA, aortic valve stenosis s/p TAVR on 12/27/2017 at [facility] with #26mm Buckley Jennifer S3 valve, mitral valve regurgitation, and hyperlipidemia. He underwent an echocardiogram in February 2022, which demonstrated a reduced ejection fraction of 35%. Which led him to a cardiac catheterization which demonstrated [place] multivessel coronary artery disease, his GRAJEDA to LAD was patent, he did have an 85% stenosis in his SVG to OM1, and chronically occluded SVG to RCA. He underwent PCI with a drug-eluting stent to his SVG to OM1. Repeat echocardiogram in July 2022 showed ejection fraction of 45%. He was evaluated at [facility] for CHF exacerbation in December 2024. Echocardiogram [...] paroxysmal nocturnal dyspnea or pedal edema. [facility], [facility] Medical History GI treated with BiPAP Valvular heart disease HTN (hypertension) CAD (coronary artery disease) HFrEF (heart failure with reduced ejection fraction) Daytime hypersomnolence Nonrheumatic aortic (valve) stenosis Hyperlipidemia Atherosclerotic heart disease of [place] coronary artery without angina pectoris Atherosclerosis of [...] (Auto) 73.9 H, Lymph % (Auto) 16.4 L,[place] % (Auto) 9.1, Eos % (Auto) 0.0, [...] (Auto)73.9 H, Lymph % (Auto) 16.4 L, [place] % (Auto) 9.1, Eos % (Auto) 0.0, [...] 02/04/25 20:37 IMPRESSION: 1. Trace pleural effusions, jufic-glfnhyl-fypi-left. 2. Gallbladder wall thickening, without radiodense stones. [...] malignancy per Fleischner society guidelines. Reading Location: [id number] Gallbladder Ultrasound 02/04/25 22:47 IMPRESSION: 1. Limited evaluation due to incomplete distention of the gallbladder. No radiodense stones are seen. There is mild wall thickening, similar to same day CT. 2. Findings suggestive of hepatic steatosis. Reading Location: [id number] Echocardiogram 02/05/25 00:02 Interpretation Summary There is [...] Cancino MD; Dr. Pedro Gonzalez MD~ Signed [facility] Work Phone: [phone]) [phone] Consult note [facility] Medical Records Department [address] [place] [address] Consultation - Cardiology 02/05/252036 MR#: [id number] Acct: [id number] Name: FLORIN VARGAS Rep #:[id number] : [...] proximal, and mid RCA on 11/22/2017 at [facility], [facility] and [facility] at [facility] in 2001 with SVG to LCX and SVG toRPDA, aortic valve stenosis s/p TAVR on 12/27/2017 at [facility] with #26mm Buckley Jennifer S3 valve, mitral valve regurgitation, and hyperlipidemia. He underwent an echocardiogram in February 2022, which demonstrated a reduced ejection fraction of 35%.Which led him to a cardiac catheterization which demonstrated [place] multivessel coronary artery disease, his GRAJEDA to LAD was patent, he did have an 85% stenosis in his SVG to OM1, and chronically occluded SVG to RCA. He underwent PCI with a drug-eluting stent to his SVG to OM1. Repeat echocardiogram in July 2022 showed ejection fraction of 45%. He was evaluated at [facility] for CHF exacerbation in December 2024. Echocardiogram [...] paroxysmal nocturnal dyspnea or pedal edema. [facility]LY [facility], [facility] Medical History GI treated with BiPAP Valvular heart disease HTN (hypertension) CAD (coronary artery disease) HFrEF (heart failure with reduced ejection fraction) Daytime hypersomnolence Nonrheumatic aortic (valve) stenosis Hyperlipidemia Atherosclerotic heart disease of [place] coronary artery without angina pectoris Atherosclerosis of [...] 6 current occupational status: employed current occupation: [employer] current occupational exposures/hazards: No pets and [...] (Auto) 73.9 H, Lymph % (Auto) 16.4 L,[place] % (Auto) 9.1, Eos % (Auto) 0.0, [...] (Auto)73.9 H, Lymph % (Auto) 16.4 L, [place] % (Auto) 9.1, Eos % (Auto) 0.0, Baso % (Auto) 0.2, Absolute Neuts (auto) 3.4, Nucleated RBC % 0, [id number] L, Potassium 3.5, Chloride 96 L, Carbon [...] 02/04/25 20:37 IMPRESSION: 1. Trace pleural effusions, gyqst-fczgumi-porf-left. 2. Gallbladder wall thickening, without radiodense stones. [...] Cancino MD; Dr. Pedro Gonzalez MD~ Signed [facility]06-25-2025 Progress note Author Pedro Galvan [facility] Note Date/Time 2025 1:57 pm [facility] Medical Records Department [address] [place] [address] Progress Note - Hospitalist 02/05/25 0654 MR#: [id number] Acct: [id number] Name: FLORIN VARGAS Rep #:[id number] : [...] Sens 108 H*, [place] [address] H, Total Protein 5.9, Albumin 3.5, Globulin 2.4, Albumin/Globulin Ratio 1.5 02/04/25 18:30: WBC 5.7, RBC 3.63 L, Hgb 10.6 L, Hct 31.0 L, MCV 85.4, MCH 29.2,MCHC 34.2, RDW Std Deviation 43.8, RDW Coeff of Jenaro 13.9, Plt Count 82 L, MPV 11.4, Immature Gran % (Auto) 0.500, Neut % (Auto) 79.6 H, Lymph % (Auto) 12.3 L,[place] % (Auto) 7.4, Eos % (Auto) 0.0, Baso % (Auto) 0.2, Absolute Neuts (auto) 4.5, Absolute Lymphs (auto) 0.70 L, Nucleated RBC % 0, Differential Comment SCANNED, Platelet Estimate MOD DEC, PT 16.0 H, INR 1.3, APTT 32.2, Lactic Acid 1.3 02/04/25 18:58: Urine Color Yellow, Urine Clarity Sl. Cloudy, Urine pH 5.0, Ur Specific [place] 1.020, Urine Protein 30 H, Urine Glucose [...] (Auto) 73.9 H, Lymph % (Auto) 16.4 L,[place] % (Auto) 9.1, Eos % (Auto) 0.0, [...] seen with cardiogenic pulmonary edema. Reading Location: [id number] Chest/Abdomen/Pelvis CT 02/04/25 20:37 IMPRESSION: 1. Trace pleural effusions, hhnpv-wlcnaoa-bpqp-left. 2. Gallbladder wall thickening, without radiodense stones. [...] malignancy per Fleischner society guidelines. Reading Location: [id number] Gallbladder Ultrasound 02/04/25 22:47 IMPRESSION: 1. Limited evaluation due to incomplete distention of the gallbladder. No radiodense stones are seen. There is mild wall thickening, similar to same day CT. 2. Findings suggestive of hepatic steatosis. Reading Location: [facility] Rhythm Strip Rhythm Strip: Sinus [...] with heparin. Charges/Coding Visit Charges Inpatient E&M: 39237 Subs Hosp L3 02/05/25 1357 <Electronically signed by Pedro Galvan DO> Cosigner Signature (if applicable): CC: ~ Signed [facility] Work Phone: 1(755) 890-198406-25-2025 Progress note [facility] Medical Records Department [address] [place] [address] Progress Note - Hospitalist 02/05/25 0654 MR#: [id number] Acct: [id number] Name: FLORIN VARGAS Rep #:[id number] : [...] Sens 108 H*, [place] [address] H, Total Protein 5.9,Albumin 3.5, Globulin 2.4, Albumin/Globulin Ratio 1.5 02/04/25 18:30: WBC 5.7, RBC 3.63 L, Hgb 10.6 L, Hct 31.0 L, MCV 85.4, MCH 29.2,MCHC 34.2, RDW Std Deviation 43.8, RDW Coeff of Jenaro 13.9, Plt Count 82 L, MPV 11.4, Immature Gran % (Auto) 0.500, Neut % (Auto) 79.6 H, Lymph % (Auto) 12.3 L,[place] % (Auto) 7.4, Eos % (Auto) 0.0, Baso % (Auto) 0.2, Absolute Neuts (auto) 4.5, Absolute Lymphs (auto) 0.70 L, Nucleated RBC % 0, Differential Comment SCANNED, Platelet Estimate MOD DEC, PT 16.0 H, INR 1.3, APTT 32.2, Lactic Acid 1.3 02/04/25 18:58: Urine Color Yellow, Urine Clarity Sl. Cloudy, Urine pH 5.0, Ur Specific [place] 1.020, Urine Protein 30 H, Urine Glucose [...] (Auto) 73.9 H, Lymph % (Auto) 16.4 L,[place] % (Auto) 9.1, Eos % (Auto) 0.0, [...] seen with cardiogenic pulmonary edema. Reading Location: [id number] Chest/Abdomen/Pelvis CT 02/04/25 20:37 IMPRESSION: 1. Trace pleural effusions, pwghk-gkogjci-slcc-left. 2. Gallbladder wall thickening, without radiodense stones. [...] Findings suggestive of hepatic steatosis. Reading Location: [facility] Rhythm Strip Rhythm Strip: Sinus [...] with heparin. Charges/Coding Visit Charges Inpatient E&M: 43561 [facility] Hosp L3 02/05/25 1357 Cosigner Signature (if applicable): CC: ~ Signed [facility]06-25-2025 Consult note Author Ron Vegas [facility] Note Date/Time 2025 1:36 am [facility] Medical Records Department [address] [place] [address] Consultation - [facility] 02/05/25 0121 MR#: [id number] Acct: [id number] Name: FLORIN VARGAS Rep #:[id number] : [...] ~600cc uop already. He feels better. [facility] Medical History GI treated with BiPAP Valvular heart disease HTN (hypertension) CAD (coronary artery disease) HFrEF (heart failure with reduced ejection fraction) Daytime hypersomnolence Nonrheumatic aortic (valve) stenosis Hyperlipidemia Atherosclerotic heart disease of [place] coronary artery without angina pectoris Atherosclerosis of [...] 6 current occupational status: employed current occupation: [employer] current occupational exposures/hazards: No pets and [...] 10 mls/hr 02/05/25 00:02 CONT INF .Q25H [facility] Protocol As Directed Sodium Chloride 250 mls @ 15 mls/hr 02/05/25 00:28 IV .[id number] PRN Saline Flush Sodium Chloride 250 mls @ 15 mls/hr 02/05/25 00:28 IV .[id number] PRN Additional IVPB Infusion Norepinephrine Bitartrate 8 mg 250 mls @ 9.375 mls/hr 02/05/25 01:10 / Sodium Chloride CONT INF .[id number] [facility] Protocol 5 MCG/MIN Melatonin 3 mg [...] Tamsulosin Hcl 0.4 Mg Capsule PO QHS [facility] Physical Exam Const alert, oriented x3 [...] Sens 108 H*, [place] [address] H, Total Protein 5.9, Albumin 3.5, Globulin 2.4, Albumin/Globulin Ratio 1.5 02/04/25 18:30: WBC 5.7, RBC 3.63 L, Hgb 10.6 L, Hct 31.0 L, MCV 85.4, MCH 29.2,MCHC 34.2, RDW Std Deviation 43.8, RDW Coeff of Jenaro 13.9, Plt Count 82 L, MPV 11.4, Immature Gran % (Auto) 0.500, Neut % (Auto) 79.6 H, Lymph % (Auto) 12.3 L,[place] % (Auto) 7.4, Eos % (Auto) 0.0, Baso % (Auto) 0.2, Absolute Neuts (auto) 4.5, Absolute Lymphs (auto) 0.70 L, Nucleated RBC % 0, Differential Comment SCANNED, Platelet Estimate MOD DEC, PT 16.0 H, INR 1.3, APTT 32.2, Lactic Acid 1.3 02/04/25 18:58: Urine Color Yellow, Urine Clarity Sl. Cloudy, Urine pH 5.0, Ur Specific [place] 1.020, Urine Protein 30 H, Urine Glucose [...] 02/04/25 20:37 IMPRESSION: 1. Trace pleural effusions, vtuzx-lsvucij-cymw-left. 2. Gallbladder wall thickening, without radiodense stones. [...] Findings suggestive of hepatic steatosis. Reading Location: [facility] CT C/A/P reviewed in person [...] Cancino MD; Dr. Pedro Gonzalez MD~ Signed [facility] Work Phone: 1(482) 171-949306-25-2025 Consult note [facility] Medical Records Department [address] [place] [address] Consultation - [facility] 02/05/25 0121 MR#: [id number] Acct: [id number] Name: FLORIN VARGAS Rep #:[id number] : [...] yielded ~600cc uop already. Hefeels better. [facility]LY [facility], [facility] Medical History GI treated with BiPAP Valvular heart disease HTN (hypertension) CAD (coronary artery disease) HFrEF (heart failure with reduced ejection fraction) Daytime hypersomnolence Nonrheumatic aortic (valve) stenosis Hyperlipidemia Atherosclerotic heart disease of [place] coronary artery without angina pectoris Atherosclerosis of [...] mls @ 15 mls/hr 02/05/25 00:28 IV .[id number] PRN Saline Flush Sodium Chloride 250 mls @ 15 mls/hr 02/05/25 00:28 IV .[id number] PRN Additional IVPB Infusion Norepinephrine Bitartrate 8 mg 250 mls @ 9.375 mls/hr 02/05/25 01:10 / Sodium Chloride CONT INF .[id number] [facility] Protocol 5 MCG/MIN Melatonin 3 mg [...] Tamsulosin Hcl 0.4 Mg Capsule PO QHS [facility] Physical Exam Const alert, oriented x3 [...] Sens 108 H*, [place] [address] H, Total Protein 5.9,Albumin 3.5, Globulin 2.4, Albumin/Globulin Ratio 1.5 02/04/25 18:30: WBC 5.7, RBC 3.63 L, Hgb 10.6 L, Hct 31.0 L, MCV 85.4, MCH 29.2,MCHC 34.2, RDW Std Deviation 43.8, RDW Coeff of Jenaro 13.9, Plt Count 82 L, MPV 11.4, Immature Gran % (Auto) 0.500, Neut % (Auto) 79.6 H, Lymph % (Auto) 12.3 L,[place] % (Auto) 7.4, Eos % (Auto) 0.0, Baso % (Auto) 0.2, Absolute Neuts (auto) 4.5, Absolute Lymphs (auto) 0.70 L, Nucleated RBC % 0, Differential Comment SCANNED, Platelet Estimate MOD DEC, PT 16.0 H, INR 1.3, APTT 32.2, Lactic Acid 1.3 02/04/25 18:58: Urine Color Yellow, Urine Clarity Sl. Cloudy, Urine pH 5.0, Ur Specific [place] 1.020, Urine Protein 30 H, Urine Glucose [...] seen with cardiogenic pulmonary edema. Reading Location: [facility] Chest/Abdomen/Pelvis CT 02/04/25 20:37 IMPRESSION: 1. Trace pleural effusions, phwjr-vxgalzw-rbmk-left. 2. Gallbladder wall thickening, without radiodense stones. [...] malignancy per Fleischner society guidelines. Reading Location: [id number] Gallbladder Ultrasound 02/04/25 22:47 IMPRESSION: 1. Limited evaluation due to incomplete distention of the gallbladder. No radiodense stones are seen. There is mild wall thickening, similar to same day CT. 2. Findings suggestive of hepatic steatosis. Reading Location: [facility] CT C/A/P reviewed in person [...] Cancino MD; Dr. Pedro Gonzalez MD~ Signed [facility]06-25-2025 Discharge summary Author [facility] Note Date/Time February 04, 2025 11:2 8pm [facility] Medical Records Department [address] [place] [address] Emergency Department Summary 02/04/25 MR#: [id number] Acct: [id number] Name: FLORIN VARGAS Rep #:[id number] : [...] andlisinopril 2.5 mg daily today. PFSH FORMERLY [facility], [facility]1983 Medical History GI treated with BiPAP Valvular heart disease HTN (hypertension) CAD (coronary artery disease) HFrEF (heart failure with reduced ejection fraction) Daytime hypersomnolence Nonrheumatic aortic (valve) stenosis Hyperlipidemia Atherosclerotic heart disease of [place] coronary artery without angina pectoris Atherosclerosis of [...] 6 current occupational status: employed current occupation: [employer] current occupational exposures/hazards: No pets and [...] 79.6 H Lymph % (Auto) 12.3 L [place] % (Auto) 7.4 Eos % (Auto) 0.0 [...] [place] 4[place] [address] H Total Protein 5.9 Albumin 3.5 Globulin 2.4 Albumin/Globulin Ratio 1.5 Urine Color Yellow Urine Clarity Sl. Cloudy Urine pH 5.0 Ur Specific [place] 1.020 Urine Protein 30 H Urine Glucose [...] (Auto) Neut % (Auto) Lymph % (Auto) [place] % (Auto) Eos % (Auto) Baso % [...] Color Urine Clarity Urine pH Ur Specific [place] Urine Protein Urine Glucose (UA) Urine Ketones [...] seen with cardiogenic pulmonary edema. Reading Location: [facility] Chest/Abdomen/Pelvis CT 02/04/25 20:37 IMPRESSION: 1. Trace pleural effusions, ihkzg-mlnafeg-nezc-left. 2. Gallbladder wall thickening, without radiodense stones. [...] malignancy per Fleischner society guidelines. Reading Location: [facility] Rhythm Strip Rhythm Strip: Sinus Rhythm Rate: 100 Ectopy: PVC(s) EKG Initial EKG: Attestation: I personally reviewed and interpreted this EKG as follows: Interpretation: Sinus Rhythm Comments: Normal sinus rhythm at 100 beats per minutes with first-degree AV block OK interval 230 Frequent PVCs presents as well [...] MD [Primary Care Provider] - Print Language: Cook Islander Disposition Disposition: Acute Care Hospital [facility] What to do if you have Problems For any increased pain, shortness of breath, bleeding, nausea or vomiting, chestpain, or any unexpected problems, contact your Primary Care Provider. Call [facility] ([phone]) or report to the closest Emergency Room. Call 911 if necessary. 02/04/252327 <Electronically signed by Maryanne Emanuel DO> Cosigner Signature (if applicable): CC: Dr. Pedro Gonzalez MD ~ Signed [facility] Work Phone: 1(259) 454-146006-25-2025 History and physical note Author Rea Cancino [facility] Note Date/Time February 04, 2025 11:1 0pm [facility] Medical Records Department [address] [place] [address] H&P Exam - Hospitalist 02/04/252238 MR#: [id number] Acct: [id number] Name: TIANFLORIN E Rep #:[id number] : [...] on BiPAP nightly who presents to the [facility] on 02/04/2025 with history of progressively [...] glucose 131, lactic acid 1.3, magnesium 2.1, AST/GGF540/84, alk phos 137, T. bili 0.66, initial troponin 108 with repeat delta troponin 111, 4-hour troponin pending upon request evaluation of patient, NT proBNP 76396, urinalysis noted cloudy, protein 30, occult blood [...] further notable for overload thus D/C. FORMERLY [facility], [facility]1983 Medical History GI treated with BiPAP Valvular heart disease HTN (hypertension) CAD (coronary artery disease) HFrEF (heart failure with reduced ejection fraction) Daytime hypersomnolence Nonrheumatic aortic (valve) stenosis Hyperlipidemia Atherosclerotic heart disease of [place] coronary artery without angina pectoris Atherosclerosis of [...] 6 current occupational status: employed current occupation: [employer] current occupational exposures/hazards: No pets and [...] Sens 108 H*, [place] [address] H, Total Protein 5.9, Albumin 3.5, Globulin 2.4, Albumin/Globulin Ratio 1.5 02/04/25 18:30: WBC 5.7, RBC 3.63 L, Hgb 10.6 L, Hct 31.0 L, MCV 85.4, MCH 29.2,MCHC 34.2, RDW Std Deviation 43.8, RDW Coeff of Jenaro 13.9, Plt Count 82 L, MPV 11.4, Immature Gran % (Auto) 0.500, Neut % (Auto) 79.6 H, Lymph % (Auto) 12.3 L,[place] % (Auto) 7.4, Eos % (Auto) 0.0, Baso % (Auto) 0.2, Absolute Neuts (auto) 4.5, Absolute Lymphs (auto) 0.70 L, Nucleated RBC % 0, Differential Comment SCANNED, Platelet Estimate MOD DEC, PT 16.0 H, INR 1.3, APTT 32.2, Lactic Acid 1.3 02/04/25 18:58: Urine Color Yellow, Urine Clarity Sl. Cloudy, Urine pH 5.0, Ur Specific [place] 1.020, Urine Protein 30 H, Urine Glucose [...] seen with cardiogenic pulmonary edema. Reading Location: [id number] Chest/Abdomen/Pelvis CT 02/04/25 20:37 IMPRESSION: 1. Trace pleural effusions, mdisc-ftphhti-qyxw-left. 2. Gallbladder wall thickening, without radiodense stones. [...] malignancy per Fleischner society guidelines. Reading Location: [id number] Assessment & Plan Assessment/Plan (1) CHF exacerbation: PLAN: Plan The patient is an 85 y/o M w/ PMHx: Chronic anemia, CKD stage III unclear subtype, Chronic Thrombocytopenia, Valvular Heart Disease, CAD s/p PCI and CABG,HTN, HLD, AAA, BPH with obstructive pathology, HFrEF, GI on BiPAP nightly who presents to the [facility] on 02/04/2025 with history of progressively [...] of the chest and abdomen 11/03/2017 with [facility] with a noted infrarenal abdominal aortic aneurysm [...] 16 minutes. Charges/Coding Visit Charges Inpatient E&M: 12995 Init Hosp L3 Procedures Hospitalists Procedures: 98464 Advncd Care Plan 30 Min 02/04/25 2310 <Electronically signed by Rea Cancino MD> Cosigner Signature (if applicable): CC: Dr. Rea Cancino MD; Dr. Pedro Gonzalez MD~ Signed [facility] Work Phone: 1(274) 311-950206-24-2025 Radiology Diagnostic study note [facility] Imaging Services [address] [place] [address] Gallbladder MR#: [id number] Acct: [id number] Name: FLORIN VARGAS Rep #: [id number] : 1940 M 85 From: Emerita Narvaez MD PCP: Dr. Pedro Gonzalez MD Status: ADM IN Study:Gallbladder Date of Exam: 02/04/25 Exam# [id number] Ordering Dr: Chandni Cancino MD PROCEDURE: GALLBLADDER [...] Findings suggestive of hepatic steatosis. Reading Location: [facility] CC: Dr. Rea Cancino MD; Dr. 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 PFSH FORMERLY [facility], [facility]1983 Medical History GI treated with BiPAP Valvular heart disease HTN (hypertension) CAD (coronary artery disease) HFrEF (heart failure with reduced ejection fraction) Daytime hypersomnolence Nonrheumatic aortic (valve) stenosis Hyperlipidemia Atherosclerotic heart disease of [place] coronary artery without angina pectoris Atherosclerosis of [...] 6 current occupational status: employed current occupation: [employer] current occupational exposures/hazards: No pets and [...] 79.6 H Lymph % (Auto) 12.3 L [place] % (Auto) 7.4 Eos % (Auto) 0.0 [...] [place] 4[place] [address] H Total Protein 5.9 Albumin 3.5 Globulin 2.4 Albumin/Globulin Ratio 1.5 Urine Color Yellow Urine Clarity Sl. Cloudy Urine pH 5.0 Ur Specific [place] 1.020 Urine Protein 30 H Urine Glucose [...] (Auto) Neut % (Auto) Lymph % (Auto) [place] % (Auto) Eos % (Auto) Baso % [...] Color Urine Clarity Urine pH Ur Specific [place] Urine Protein Urine Glucose (UA) Urine Ketones [...] seen with cardiogenic pulmonary edema. Reading Location: [id number] Chest/Abdomen/Pelvis CT 02/04/25 20:37 IMPRESSION: 1. Trace pleural effusions, fyvhp-ybwfbni-khso-left. 2. Gallbladder wall thickening, without radiodense stones. [...] malignancy per Fleischner society guidelines. Reading Location: [facility] Rhythm Strip Rhythm Strip: Sinus Rhythm Rate: 100 Ectopy: PVC(s) EKG Initial EKG: Attestation: I personally reviewed and interpreted this EKG as follows: Interpretation: Sinus Rhythm Comments: Normal sinus rhythm at 100 beats per minutes with first-degree AV block OK interval 230 Frequent PVCs presents as well [...] MD [Primary Care Provider] - Print Language: [place]er Disposition Disposition: Acute Care Hospital [facility] What to do if you have Problems For any increased pain, shortness of breath, bleeding, nausea or vomiting, chestpain, or any unexpected problems, contact your Primary Care Provider. Call [facility] ([phone]) or report tothe closest Emergency Room. Call 911 if necessary. 02/04/25 9160 Cosigner Signature (if applicable): CC: Dr. Pedro Gonzalez MD ~ Signed [facility]06-24-2025 History and physical note [facility] Medical Records Department [address] [place] [address] H&P Exam - Hospitalist 02/04/259 MR#: [id number] Acct: [id number] Name: FLORIN VARGAS Rep #:[id number] : [...] on BiPAP nightly who presents to the [facility] on 02/04/2025 with history of progressively [...] glucose 131, lactic acid 1.3, magnesium 2.1, AST/IRG861/84, alk phos 137, T. bili 0.66, initial troponin 108 with repeatdelta troponin 111, 4-hour troponin pending upon request evaluation of patient, NT proBNP 54371, urinalysis noted cloudy, protein 30, occult blood [...] further notable for overload thus D/C. FORMERLY [facility], [facility] Medical History GI treated with BiPAP Valvular heart disease HTN (hypertension) CAD (coronary artery disease) HFrEF (heart failure with reduced ejection fraction) Daytime hypersomnolence Nonrheumatic aortic (valve) stenosis Hyperlipidemia Atherosclerotic heart disease of [place] coronary artery without angina pectoris Atherosclerosis of [...] Sens 108 H*, [place] [address] H, Total Protein 5.9,Albumin 3.5, Globulin 2.4, Albumin/Globulin Ratio 1.5 02/04/25 18:30: WBC 5.7, RBC 3.63 L, Hgb 10.6 L, Hct 31.0 L, MCV 85.4, MCH 29.2,MCHC 34.2, RDW Std Deviation 43.8, RDW Coeff of Jenaro 13.9, Plt Count 82 L, MPV 11.4, Immature Gran % (Auto) 0.500, Neut % (Auto) 79.6 H, Lymph % (Auto) 12.3 L,[place] % (Auto) 7.4, Eos % (Auto) 0.0, Baso % (Auto) 0.2, Absolute Neuts (auto) 4.5, Absolute Lymphs (auto) 0.70 L, Nucleated RBC % 0, Differential Comment SCANNED, Platelet Estimate MOD DEC, PT 16.0 H, INR 1.3, APTT 32.2, Lactic Acid 1.3 02/04/25 18:58: Urine Color Yellow, Urine Clarity Sl. Cloudy, Urine pH 5.0, Ur Specific [place] 1.020, Urine Protein 30 H, Urine Glucose [...] seen with cardiogenic pulmonary edema. Reading Location: [id number] Chest/Abdomen/Pelvis CT 02/04/25 20:37 IMPRESSION: 1. Trace pleural effusions, jppgc-mjrgbbb-lapq-left. 2. Gallbladder wall thickening, without radiodense stones. [...] malignancy per Fleischner society guidelines. Reading Location: [id number] Assessment & Plan Assessment/Plan (1) CHF exacerbation: PLAN: Plan The patient is an 85 y/o M w/ PMHx: Chronic anemia, CKD stage III unclear subtype, Chronic Thrombocytopenia, Valvular Heart Disease, CAD s/p PCI and CABG,HTN, HLD, AAA, BPH with obstructive pathology, HFrEF, GI on BiPAP nightly who presents to the [facility] on 02/04/2025 with history of progressively [...] CTA ofthe chest and abdomen 11/03/2017 with [facility] with a noted infrarenal abdominal aortic aneurysm [...] 16 minutes. Charges/Coding Visit Charges Inpatient E&M: 42916 Init Hosp L3 Procedures Hospitalists Procedures: 95532 Advncd Care Plan 30 Min 02/04/25 2310 Cosigner Signature (if applicable): CC: Dr. Rea Cancino MD; Dr. Pedro Gonzalez MD~ Signed [facility]06-24-2025 Radiology Diagnostic study note [facility] Imaging Services [address] [place], [place] [address] CT Chest, Abd, Pelvis WO Cont MR#: [id number] Acct: [id number] Name: FLORIN VARGAS Rep #: [id number] : 1940 M 85 From: Emerita Narvaez MD PCP: Dr. Pedro Gonzalez MD Status: REG ER Study:CT Chest, Abd, Pelvis WO Cont Date of E xam: 02/04/25 Exam# [id number] Ordering Dr: Anh Emanuel DO PROCEDURE: CT [...] 2, image 90). Pleura: Trace pleural effusions, tysan-mpwysdq-swjm-left. Bones: Sequela of median sternotomy. Degenerative changes [...] lumbosacral anatomy. CT/CT Chest, Abd, Pelvis WO [facility] IMPRESSION: 1. Trace pleural effusions, jbouq-cgwzucw-dpis-left. 2. Gallbladder wall thickening, without radiodense stones. [...] malignancy per Fleischner society guidelines. Reading Location: [id number] CC: Dr. Maryanne Emanuel DO; Dr. Pedro Gonzalez MD ~ Agricultural Plow Operator: Signed [facility]06-24-2025 Radiology Diagnostic study note [facility] Imaging Services [address] [place], [place] [address] Chest 1 View (Portable) MR#: [id number] Acct: [id number] Name: FLORIN VARGAS Rep #: [id number] : 1940 M 85 From: Emerita Narvaez MD PCP: Dr. Pedro Gonzalez MD Status: REG ER Study:Chest 1 View (Portable) Date of Exam: 02/04/25 Exam# [id number] Ordering Dr: Anh Emanuel DO PROCEDURE: CHEST [...] seen with cardiogenic pulmonary edema. Reading Location: [id number] CC: Dr. Maryanne Emanuel DO; Dr. Pedro Gonzalez MD ~ Agricultural Plow Operator: Signed [facility]06-24-2025 Discharge summary Author Maryanne Emanuel [facility] Note Date/Time February 04, 2025 11:2 8pm [facility] Medical Records Department [address] [place] [address] Emergency Department Summary 02/04/25 MR#: [id number] Acct: [id number] Name: FLORIN VARGAS Rep #:[id number] : [...] (valve) stenosis Hyperlipidemia Atherosclerotic heart disease of [place] coronary artery without angina pectoris Atherosclerosis of [...] 79.6 H Lymph % (Auto) 12.3 L [place] % (Auto) 7.4 Eos % (Auto) 0.0 [...] [place] 4[place] [address] H Total Protein 5.9 Albumin 3.5 Globulin 2.4 Albumin/Globulin Ratio 1.5 Urine Color Yellow Urine Clarity Sl. Cloudy Urine pH 5.0 Ur Specific [place] 1.020 Urine Protein 30 H Urine Glucose [...] (Auto) Neut % (Auto) Lymph % (Auto) [place] % (Auto) Eos % (Auto) Baso % [...] Color Urine Clarity Urine pH Ur Specific [place] Urine Protein Urine Glucose (UA) Urine Ketones [...] seen with cardiogenic pulmonary edema. Reading Location: [id number] Chest/Abdomen/Pelvis CT 02/04/25 20:37 IMPRESSION: 1. Trace pleural effusions, cwhsy-xqwipxd-ylrq-left. 2. Gallbladder wall thickening, without radiodense stones. [...] malignancy per Fleischner society guidelines. Reading Location: [facility] Rhythm Strip Rhythm Strip: Sinus Rhythm Rate: 100 Ectopy: PVC(s) EKG Initial EKG: Attestation: I personally reviewed and interpreted this EKG as follows: Interpretation: Sinus Rhythm Comments: Normal sinus rhythm at 100 beats per minutes with first-degree AV block OK interval 230 Frequent PVCs presents as well [...] MD [Primary Care Provider] - Print Language: [place]er Disposition Disposition: Acute Care Hospital [facility] What to do if you have Problems For any increased pain, shortness of breath, bleeding, nausea or vomiting, chestpain, or any unexpected problems, contact your Primary Care Provider. Call [facility] ([phone]) or report to the closest Emergency Room. Call 911 if necessary. 02/04/252327 <Electronically signed by Maryanne Emanuel DO> Cosigner Signature (if applicable): CC: Dr. Pedro Gonzalez MD ~ Signed [facility] Work Phone: 1(776) 152-597306-24-2025 Evaluation note* Diagnosis Onset Date Resolution Status [...] valve Dec, 2017 inactive April 07 9:50am [facility] Work Phone: 1(291) 138-944905-02-2025 [facility]05-01-2025 Evaluation note* Diagnosis Onset Date Resolution Status [...] artery chronic December 25, 2024 1 0:16am [facility] Work Phone: 1([phone]) 496-999305-01-2025 Evaluation note* Diagnosis Onset Date Resolution Status [...] y artery chronic February 04, 2025 8:47am [facility] Work Phone: [phone]) [phone] Evaluation note* Diagnosis Onset Date Resolution Status [...] 2025 8:47am CHF exacerbation chronic January 10:42pm [facility] Work Phone: [phone]) 103-432705-01-2025 Evaluation note* Diagnosis Onset Date Resolution Status [...] 2025 10:42pm Acute hypoxic respiratory failure [place] February 04, 2025 10:42pm Elevated troponin acute [...] Dec, 2017 chronic February 04, 2025 10:42pm [facility] Work Phone: 1([phone]) 405-268505-01-2025 Evaluation note* Diagnosis Onset Date Resolution Status [...] 2025 10:42pm Acute hypoxic respiratory failure ac [place] February 04, 2025 10:42pm Elevated troponin acute [...] duced ejection fraction) inactive February 11 9:59am [place] [employer] Work Phone: [phone]) 554-501005-01-2025 Evaluation note* Diagnosis Onset Date Resolution Status [...] 2017 inactive February 11, 2025 9 :59am [facility] Work Phone: [phone]) 305-196205-01-2025 Evaluation note* Diagnosis Onset Date Resolution Status [...] Dec, 2017 inactive February 26, 2025 8:48am [facility] Work Phone: [phone]) 834-901705-01-2025 Evaluation note* Diagnosis Onset Date Resolution Status [...] valve Dec, 2017 inactive April 07 9:50am [facility] Work Phone: [phone] Evaluation note* Diagnosis Onset Date Resolution Status [...] coronar y artery chronic August 09 9:17am [facility] Work Phone: Discharge summary Author Yeny Gabriel [facility] Note Date/Time February 08, 2025 2:41 pm [facility] Medical Records Department [address] [place] [address] Discharge Summary 02/08/25 1418 MR#: [id number] Acct: [id number] Name: FLORIN VARGAS Rep #:[id number] : 1940 85 From: Yeny Gabriel DO PCP: Dr. Pedro Gonzalez, MD Status:ADM IN [facility] Prov[facility] Date of Admission: 02/04/25 Primary Care Physician: Dr. Pedro Gonzalez MD Consultations 02/05/25 00:02 Consult: Cardiology Routine Consulting Provider: Cj Gardiner Reason for Consult: HF Exac, elevated troponins EMERGENT Consult: No Notified: Yes Date Notified: 02/04/25 Time Notified: 22:45 Method of Notification: Text Consult: Cone Picker / Pulmonary Medicine Routine Consulting Provider: Intensivists/Pulmonary [...] who presented to the emergency department at [facility] on 02/04/2025 with a chief complaint of [...] body habitus Constitutional Narrative: Morbidly obese, white Anglican male, reclining, family at bedside, appears well, [...] % (Auto) 51.1, Lymph % (Auto) 38.6, [place] % (Auto) 6.6, Eos % (Auto) 3.1, [...] Self Care Charges/Coding Visit Charges Inpatient E&M: 43610 Disch Hosp >30min 02/08/25 1441 <Electronically signed by Yeny Gabriel DO> Cosigner Signature (if applicable): CC: Dr. Cj Gardiner MD; Dr. Pedro Gonzalez MD; Dr. Yeny Gabriel DO; Dr. 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 Atherosclerotic heart diseas e of [place] coronary artery without angina pectoris chronic Chronic systolic (congestive) heart failure chronic H/O coronary artery bypass surgery 2001 chronic History of aortic valve repl acement with bioprosthetic valve Dec, 2017 chronic Hyperlipidemia chronic Presence of stent in coronary artery chronic [facility] Work Phone: Evaluation note* Diagnosis Onset Date Resolution Status Daytime hypersomnolence acut e 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 Atherosclerotic heart diseas e of [place] coronary artery without angina pectoris chronic Chronic systolic (congestive) heart failure chronic H/O coronary artery bypass surgery 2001 chronic History of aortic valve repl acement with bioprosthetic valve Dec, 2017 chronic Hyperlipidemia chronic Presence of stent in coronary artery chronic GI (obstructive sleep apnea) acute [facility] Work Phone: Evaluation note* Diagnosis Onset Date Resolution Status Daytime hypersomnolence acut e 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 Atherosclerotic heart diseas e of [place] coronary artery without angina pectoris chronic Chronic systolic (congestive) heart failure chronic H/O coronary artery bypass surgery 2001 chronic History of aortic valve repl acement with bioprosthetic valve Dec, 2017 chronic Hyperlipidemia chronic Presence of stent in coronary artery chronic GI (obstructive sleep apnea) acute Atherosclerotic heart diseas e of [place] coronary artery without angina pectoris chronic Chronic systolic (congestive) heart failure chronic H/O coronary artery bypass surgery 2001 chronic History of aortic valve repl acement with bioprosthetic valve Dec, 2017 chronic Hyperlipidemia chronic Presence of stent in coronary artery chronic [facility] Work Phone: History and physical note Author Rea Cancino [facility] Note Date/Time February 04, 2025 11:1 0pm [facility] Medical Records Department [address] [place] [id number] H&P Exam - Hospitalist 02/04/25 2239 MR#: [id number] Acct: [id number] Name: FLORIN VARGAS Rep #:[id number] : [...] on BiPAP nightly who presents to the [facility] on 02/04/2025 with history of progressively [...] glucose 131, lactic acid 1.3, magnesium 2.1, AST/WIT952/84, alk phos 137, T. bili 0.66, initial troponin 108 with repeat delta troponin 111, 4-hour troponin pending upon request evaluation of patient, NT proBNP 90100, urinalysis noted cloudy, protein 30, occult blood [...] further notable for overload thus D/C. FORMERLY [facility], 1928–1983 Medical History GI treated with BiPAP Valvular heart disease HTN (hypertension) CAD (coronary artery disease) HFrEF (heart failure with reduced ejection fraction) Daytime hypersomnolence Nonrheumatic aortic (valve) stenosis Hyperlipidemia Atherosclerotic heart disease of [place] coronary artery without angina pectoris Atherosclerosis of [...] Sens 108 H*, [place] [address] H, Total Protein 5.9, Albumin 3.5, Globulin 2.4, Albumin/Globulin Ratio 1.5 02/04/25 18:30: WBC 5.7, RBC 3.63 L, Hgb 10.6 L, Hct 31.0 L, MCV 85.4, MCH 29.2,MCHC 34.2, RDW Std Deviation 43.8, RDW Coeff of Jenaro 13.9, Plt Count 82 L, MPV 11.4, Immature Gran % (Auto) 0.500, Neut % (Auto) 79.6 H, Lymph % (Auto) 12.3 L,[place] % (Auto) 7.4, Eos % (Auto) 0.0, Baso % (Auto) 0.2, Absolute Neuts (auto) 4.5, Absolute Lymphs (auto) 0.70 L, Nucleated RBC % 0, Differential Comment SCANNED, Platelet Estimate MOD DEC, PT 16.0 H, INR 1.3, APTT 32.2, Lactic Acid 1.3 02/04/25 18:58: Urine Color Yellow, Urine Clarity Sl. Cloudy, Urine pH 5.0, Ur Specific [place] 1.020, Urine Protein 30 H, Urine Glucose [...] seen with cardiogenic pulmonary edema. Reading Location: [id number] Chest/Abdomen/Pelvis CT 02/04/25 20:37 IMPRESSION: 1. Trace pleural effusions, dbygg-elaviel-yvdg-left. 2. Gallbladder wall thickening, without radiodense stones. [...] malignancy per Fleischner society guidelines. Reading Location: [id number] Assessment & Plan Assessment/Plan (1) CHF exacerbation: PLAN: Plan The patient is an 85 y/o M w/ PMHx: Chronic anemia, CKD stage III unclear subtype, Chronic Thrombocytopenia, Valvular Heart Disease, CAD s/p PCI and CABG,HTN, HLD, AAA, BPH with obstructive pathology, HFrEF, GI on BiPAP nightly who presents to the [facility] on 02/04/2025 with history of progressively [...] of the chest and abdomen 11/03/2017 with [facility] with a noted infrarenal abdominal aortic aneurysm [...] 16 minutes. Charges/Coding Visit Charges Inpatient E&M: 23552 Init Hosp L3 Procedures Hospitalists Procedures: 30322 Advncd Care Plan 30 Min 02/04/25 2310 <Electronically signed by Rea Cancino MD> Cosigner Signature (if applicable): CC: Dr. Rea Cancino MD; Dr. Pedro Gonzalez MD~ Signed [facility] Work Phone: Hospital Discharge instructionsAdditional Instructions Double [...] if your symptoms worsen or new symptoms develop.[facility] Work Phone: Reason for referral (narrative)No reason for referral information availableWThe Jewish Hospital Work Phone: Summary Purpose Family History Relationship Condition Age at Onset Recorded Date/T rosalinda father Myocardial infarction Unknown Cerebrovascular accident (CVA) Unknown mother Congestive heart failure Unknown brother Coronary artery disease Unknown Malignant neoplasm Unknown Advance Directives Advance Directive Response Recorded Date/ Time Advance Directives No September 12, 2017 9:03am Living Will No June 20 9:57am Power of Jukebox Operator No June 20, 2019 9:57am Advance Directive Response Recorded Date/ Time Advance Directives No September 12, 2017 9:03am Living Will No January 27, 2022 10:27am Power of Jukebox Operator No January 27 10:27am Advance Directive Response Recorded Date/ Time Living Will No March 29 12:11pm Do you have a Healthcare Power of Jukebox Operator? No March 29, 2022 12:11pm Advance Directives No March 29, 2022 7:31am Advance Directive Response Recorded Date/ Time Do you have a Healthcare Power of Jukebox Operator? No December 12, 2024 10:13am Advance Directives No March 29, 2022 7:31am Advance Directive Response Recorded Date/ Time Do you have a Healthcare Power of Jukebox Operator? No December 12, 2024 10:13am Do you have a Healthcare Power of Jukebox Operator? No February 04, 2025 6:04pm Advance Directives No March 29, 2022 7:31am Advance Directive Response Recorded Date/ Time Do you have a Healthcare Power of Jukebox Operator? No December 12, 2024 10:13am Do you have a Healthcare Power of Jukebox Operator? No 2025 12:03am Advance Directives No March 29, 2022 7:31am Advance Directive Response Recorded Date/ Time Do you have a Healthcare Power of Jukebox Operator? No December 12, 2024 10:13am Do you have a Healthcare Power of Jukebox Operator? No 2025 12:03am Do you have a Healthcare Power of Jukebox Operator? No April 02, 2025 11:07am Advance Directives No March 29, 2022 7:31am Advance Directive Response Recorded Date/ Time Do you have a Healthcare Power of Jukebox Operator? No 2025 12:03am Do you have a Healthcare Power of Jukebox Operator? No April 02, 2025 11:07am Advance Directives No March 29, 2022 7:31am Hospital Course Note [facility] DISCHARGE SUMMARY NAME ACCOUNT SEX AGE ADMIT DISCHARGE PT MED. RECORD# NUMBER DATE DATE TYPE TIAN, [id number] Jackie 79 02[birth year]19 Stephanie Courtney [id number] ROOM: 307 DATE OF : 1940 DICTATING [...] without angina pectoris Atherosclerotic heart disease of [place] coronary artery without angina pectoris Chronic systolic (congestive) heart failure History of aortic valve replacement with bioprosthetic valve Hyperlipidemia Presence of stent in coronary artery Daytime hypersomnolence Atherosclerosis of coronary artery bypass graft without angina pectoris Atherosclerotic heart disease of [place] coronary artery without angina pectoris Chronic systolic [...] without angina pectoris Atherosclerotic heart disease of [place] coronary artery without angina pectoris Chronic systolic [...] without angina pectoris Atherosclerotic heart disease of [place] coronary artery without angina pectoris Chronic systolic [...] without angina pectoris Atherosclerotic heart disease of [place] coronary artery without angina pectoris Chronic systolic (congestive) heart failure H/O coronary artery bypass surgery History of aortic valve replacement with bioprosthetic valve Hyperlipidemia Presence of stent in coronary artery GI (obstructive sleep apnea) Atherosclerotic heart disease of [place] coronary artery without angina pectoris Chronic systolic [...] December 13, 2024 1 0:10am S/P HOSP ([facility] /) December 25, 2024 10:16 am [...] December 13, 2024 1 0:10am S/P HOSP ([facility] 5/) December 25, 2024 10:16 am [...] December 13, 2024 1 0:10am S/P HOSP ([facility] 12/13) December 25, 2024 10:16 am [...] December 13, 2024 1 0:10am S/P HOSP ([facility] 5/2) December 25, 2024 10:16 am [...] December 13, 2024 1 0:10am S/P HOSP ([facility] 5/) December 25, 2024 10:16 am [...] S GB February 08, 2025 2:18pm S/P [facility] (02/08) February 11, 2025 9:59a m [...] December 13, 2024 1 0:10am S/P HOSP ([facility] 5/) December 25, 2024 10:16 am [...] S GB February 08, 2025 2:18pm S/P [facility] (02/08) February 11, 2025 9:59a m [...] December 13, 2024 1 0:10am S/P HOSP ([facility] 12/13) December 25, 2024 10:16 am [...] S GB February 08, 2025 2:18pm S/P [facility] (02/08) February 11, 2025 9:59a m VENTRICULAR PREMATURE DEPOLARIZATION Feb 11:14am PVC'S February 11, 2025 11:26 am 2-4 wk fu February 26, 2025 8:48 am sob April 02, 2025 10 :48am Chief Complaint Admit Date CHF December 12, 2024 9:20am Congestive heart failure December 12, 2024 9 :24am Congestive heart failure December 13, 2024 1 0:10am S/P HOSP ([facility] 12/13) December 25, 2024 10:16 am [...] S GB February 08, 2025 2:18pm S/P [facility] (02/08) February 11, 2025 9:59a m VENTRICULAR PREMATURE DEPOLARIZATION Feb 11:14am PVC'S February 11, 2025 11:26 am 2-4 wk fu February 26, 2025 8:48 am sob April 02, 2025 10 :48am S/P ER [facility] 04/02April 07, 2025 9: 50am Reason [...] S GB February 08, 2025 2:18pm S/P [facility] (02/08) February 11, 2025 9:59a m VENTRICULAR PREMATURE DEPOLARIZATION Feb 11:14am PVC'S February 11, 2025 11:26 am 2-4 wk fu February 26, 2025 8:48 am sob April 02, 2025 10 :48am S/P ER [facility] 04/02April 07, 2025 9: 50am Reason [...] section and content) DATE CREATED AUTHOR 03/26/2018 [facility] DATE CREATED AUTHOR AUTHOR'S ORGANIZ ATION 05/12/2019 [facility] DATE CREATED AUTHOR AUTHOR'S ORGANIZ ATION 09/17/2020 [facility] DATE CREATED AUTHOR AUTHOR'S ORGANIZ ATION 10/05/2020 [facility] ([place]) DATE CREATED AUTHOR AUTHOR'S ORGANIZ ATION 05/04/2025 [facility] Goals (unrecognized section and content) Goals may [...] End: August 09, 2024 Andrzej Marinelli NP, NETWORK TECHNICIAN-C Attending Provider Active S tart: August 09, 2024 End: August 09, 2024 Team Status: Inactive Member Role Status Dates Dr. Pedro DALAL MD Primary Care Provider Active Start: August 09, 2024 End: August 09, 2024 Andrzej Marinelli NP, NETWORK TECHNICIAN-C Attending Provider Active S tart: August 09, 2024 End: August 09, 2024 Andrzej Marinelli NP NETWORK TECHNICIAN-C Referring Provider Active S tart: August 09, 2024 End: August 09, 2024 Team Status: Inactive Member Role Status Dates Dr. Pedro Gonzalez MD Primary Care Provider Active Start: November 04, 2024 End: November 04, 2024 Karo Sewell NP NETWORK TECHNICIAN-C Attending Provider Active S tart: November 04, 2024 End: November 04, 2024 Karo Sewell NP NETWORK TECHNICIAN-C Referring Provider Active S tart: November 04, 2024 End: November 04, 2024 Team Status: Inactive Member Role Status Dates Dr. Pedro Gonzalez MD Primary Care Provider Active Start: November 18, 2024 End: November 18, 2024 Karo Sewell NETWORK TECHNICIAN, NETWORK TECHNICIAN-C Attending Provider Active S tart: November 18, 2024 End: November 18, 2024 Karo Sewell NETWORK TECHNICIAN, NETWORK TECHNICIAN-C Referring Provider Active S tart: November 18, [...] 2024 End: December 25, 2024 Andrzej Marinelli NETWORK TECHNICIAN, NETWORK TECHNICIAN-C Attending Provider Active S tart: December 25, 2024 End: December 25, 2024 Team Status: Inactive Member Role Status Dates Dr. Pedro DALAL MD Referring Provider Active Start: February 04, 2025 End: February 04, 2025 Andrzej Marinelli NETWORK TECHNICIAN, NETWORK TECHNICIAN-C Attending Provider Active S tart: February 04, [...] 2024 End: November 04, 2024 Karo Sewell NETWORK TECHNICIAN, NETWORK TECHNICIAN-C Attending Provider Active S tart: November 04, 2024 End: November 04, 2024 Karo Sewell NETWORK TECHNICIAN, NETWORK TECHNICIAN-C Referring Provider Active S tart: November 04, 2024 End: November 04, 2024 Team Status: Inactive Member Role/Relationship Status Dates Dr. Pedro Gonzalez MD Primary Care Provider Active Start: November 18, 2024 End: November 18, 2024 Karo Sewell NETWORK TECHNICIAN, NETWORK TECHNICIAN-C Attending Provider Active S tart: November 18, 2024 End: November 18, 2024 Karo Sewell NETWORK TECHNICIAN, NETWORK TECHNICIAN-C Referring Provider Active S tart: November 18, [...] 2024 End: December 25, 2024 Andrzej Marinelli NETWORK TECHNICIAN, NETWORK TECHNICIAN-C Attending Provider Active S tart: December 25, 2024 End: December 25, 2024 Team Status: Inactive Member Role/Relationship Status Dates Dr. Pedro DALAL MD Referring Provider Active Start: February 04, 2025 End: February 04, 2025 Andrzej Marinelli NETWORK TECHNICIAN, NETWORK TECHNICIAN-C Attending Provider Active S tart: February 04, [...] DO Emergency Provider Active Start: 2025 Dr. Rae Cancino MD Admit Provider Active St art: [...] End: February 11, 2025 Andrzej H Isis NETWORK TECHNICIAN, NETWORK TECHNICIAN-C Attending Provider Active S tart: February 11, 2025 End: February 11, 2025 Team Status: Active Member Role/Relationship Status Dates Dr. Pedro Gonzalez MD Primary Care Provider Active Start: February 11, 2025 Andrzej H Isis NETWORK TECHNICIAN, NETWORK TECHNICIAN-C Attending Provider Active S tart: February 11, 2025 Andrzej H Isis NETWORK TECHNICIAN, NETWORK TECHNICIAN-C Referring Provider Active S tart: February 11, 2025 Team Status: Inactive Member Role/Relationship Status Dates Dr. Pedro Gonzlaez MD Primary Care Provider Active Start: February 11, 2025 End: February 11, 2025 Andrzej H Isis NETWORK TECHNICIAN, NETWORK TECHNICIAN-C Attending Provider Active S tart: February 11, 2025 End: February 11, 2025 Andrzej H Isis NETWORK TECHNICIAN, NETWORK TECHNICIAN-C Referring Provider Active S tart: February 11, [...] 2025 End: February 26, 2025 Andrzej Marinelli NETWORK TECHNICIAN, NETWORK TECHNICIAN-C Attending Provider Active S tart: February 26, [...] 2024 End: December 25, 2024 Andrzej Marinelli NETWORK TECHNICIAN, NETWORK TECHNICIAN-C Attending Provider Active S tart: December 25, 2024 End: December 25, 2024 Team Status: Inactive Member Role/Relationship Status Dates Dr. Pedro DALAL MD Referring Provider Active Start: February 04, 2025 End: February 04, 2025 Andrzej Marinelli NETWORK TECHNICIAN, NETWORK TECHNICIAN-C Attending Provider Active S tart: February 04, [...] 04, 2025 End: February 08, 2025 Dr. Pdero Galvan DO Other Provider Active Star t: [...] 2025 End: February 11, 2025 Andrzej Marinelli NETWORK TECHNICIAN, NETWORK TECHNICIAN-C Attending Provider Active S tart: February 11, 2025 End: February 11, 2025 Team Status: Inactive Member Role/Relationship Status Dates Dr. Pedro Gonzalez MD Primary Care Provider Active Start: February 11, 2025 End: February 11, 2025 Andrzej Marinelli NETWORK TECHNICIAN, NETWORK TECHNICIAN-C Attending Provider Active S tart: February 11, 2025 End: February 11, 2025 Andrzej Marinelli NETWORK TECHNICIAN, NETWORK TECHNICIAN-C Referring Provider Active S tart: February 11, 2025 End: February 11, 2025 Team Status: Active Member Role/Relationship Status Dates Dr. Pedro Gonzalez MD Primary Care Provider Active Start: February 11, 2025 Dr. Cj Gardiner MD Attending Provider Active S tart: February 11, 2025 Andrzej Marinelli NETWORK TECHNICIAN, NETWORK TECHNICIAN-C Referring Provider Active S tart: February 11, 2025 Team Status: Inactive Member Role/Relationship Status Dates Dr. Pedro Gonzalez MD Primary Care Provider Active Start: February 26, 2025 End: February 26, 2025 Dr. Pedro Gonzalez MD Referring Provider Active St art: February 26, 2025 End: February 26, 2025 Andrzej Marinelli NETWORK TECHNICIAN, NETWORK TECHNICIAN-C Attending Provider Active S tart: February 26, [...] 2025 End: April 07, 2025 Andrzej Marinelli NETWORK TECHNICIAN, NETWORK TECHNICIAN-C Attending Provider Active S tart: April 07, 2025 End: April 07, 2025 Team Status: Active Member Role/Relationship Status Dates Dr. Pedro Gonzalez MD Primary care physician Active Team Status: Inactive Member Role/Relationship Status Dates Dr. Pedro DALAL MD Referring Provider Active Start: February 04, 2025 End: February 04, 2025 Andrzej Marinelli NETWORK TECHNICIAN, NETWORK TECHNICIAN-C Attending physician Active Start: February 04, 2025 [...] Active Member Role/Relationship Status Dates Dr. Pedro Gonazlez MD Primary care physician Active Start: 2025 [...] MD Nurse Practitioner Active Start: 2025 Dr. ePdro Galvan DO Attending physician Active Start: 2025 [...] 2025 End: February 11, 2025 Andrzej Marinelli NETWORK TECHNICIAN, NETWORK TECHNICIAN-C Attending physician Active Start: February 11, 2025 End: February 11, 2025 Team Status: Inactive Member Role/Relationship Status Dates Dr. Pedro Gonzalez MD Primary care physician Active Start: February 11, 2025 End: February 11, 2025 Andrzej Marinelli NETWORK TECHNICIAN, NETWORK TECHNICIAN-C Attending physician Active Start: February 11, 2025 End: February 11, 2025 Andrzej Marinelli NETWORK TECHNICIAN, NETWORK TECHNICIAN-C Referring Provider Active S tart: February 11, 2025 End: February 11, 2025 Team Status: Active Member Role/Relationship Status Dates Dr. Pedro Gonzalez MD Primary care physician Active Start: February 11, 2025 Dr. Cj Gardiner MD Attending physician Active Start: February 11, 2025 Andrzej Marinelli NETWORK TECHNICIAN, NETWORK TECHNICIAN-C Referring Provider Active S tart: February 11, 2025 Team Status: Inactive Member Role/Relationship Status Dates Dr. Pedro Gonzalez MD Primary care physician Active Start: February 26, 2025 End: February 26, 2025 Dr. Pedro Gonzalez MD Referring Provider Active St art: February 26, 2025 End: February 26, 2025 Andrzej Marinelli NP, NETWORK TECHNICIAN-C Attending physician Active Start: February 26, 2025 [...] 2025 End: April 07, 2025 Andrzej Marinelli NETWORK TECHNICIAN, NETWORK TECHNICIAN-C Attending physician Active Start: April 07, 2025 [...] BE BASED ON THE PRIMARY CLINICAL RECORDS. [employer] provides no warranty or guarantee of the accuracy or completeness of information in this document.
[2025-05-19 03:33] LABS: Reflex Lactate? Y
[2025-05-19 03:57] LABS: Hematocrit 39.1 % (40-54); Hemoglobin 12.8 g/dL (13.0-16.5); Immature Granulocytes Count 0.020 X10^3/uL (0.0-0.0); Mean Corp Hgb Conc 32.7 g/dL (32-36); Mean Corpuscular Volume 88.1 fL (80-94); Mean Platelet Vol. 11.6 fl (6.2-12.0); NRBC Flagged by Analyzer 0.3 % (0-5); Platelet Count 125 K/mm3 (150-450); RBC Distribution Width CV 16.2 % (11.6-14.6); RBC Distribution Width SD 52.3 fl (35.1-43.9); Red Blood Count 4.44 M/mm3 (4.6-6.2); White Blood Count 7.6 K/mm3 (4.4-11.0)
[2025-05-19 04:29] LABS: Troponin T High Sens 4 HR 77 ng/L (<=22)
[2025-05-19 04:36] LABS: AST(SGOT) 48 U/L (<=37); Alanine Aminotransfer ALT/SGPT 56 U/L (<=46); Albumin, Serum 3.8 g/dL (3.4-4.8); Alkaline Phosphatase 151 U/L (40-129); Anion Gap 16 (5-15); BUN 42 mg/dL (4-19); BUN/Creat Ratio 21.0 RATIO (10-20); Calcium,Total 8.9 mg/dL (7.6-11.0); Carbon Dioxide 23.3 mmol/L (21.0-32.0); Chloride 98 mmol/L (98-108); Estimated Creatinine Clearance 27.22 ml/min (50-250); Globulin 2.6 g/dL (2.2-4.2); Glucose 109 mg/dL (70-99); Potassium 3.9 mmol/L (3.3-5.1)
--- NOTE | 2025-05-19 07:26 | PCM.PN.HOSP ---
Reason for Visit Chief Complaint: Dyspnea, weight gain, orthopnea, cough. Subjective Subjective Still reporting significant shortness of breath though is certainly better than presentation, does report a cough with some mucus, denies any history of asthma, COPD, smoking Objective Data Objective Data Vital Signs: Vital Signs Temp Pulse Resp BP Pulse Ox O2 Del Method O2 Flow Rate 97.7 F L 69 16 100/72 99 Nasal Cannula 2 05/19/25 06:25 05/19/25 06:25 05/19/25 06:25 05/19/25 06:25 05/19/25 06:25 05/19/25 06:05/19/25 06:25 Oxygen Flow Rate (L/min) 2 Oxygen Delivery Method Nasal Cannula Weight: 85.9 kg Body Mass Index (BMI) 31.5 Intake & Output: Intake and Output for Last 24 Hours 05/17/25 05/18/25 05/19/25 23:59 23:59 23:59 Intake Total 60 / 60 Output Total 550 / 550 Balance -490 / -490 Lab / Micro Data 05/19/25 03:48 05/19/25 03:48 Labs: Laboratory Results - last 24 hr 05/18/25 23:30: WBC 6.5, RBC 4.49 L, Hgb 12.7 L, Hct 40.2, MCV 89.5, MCH 28.3, MCHC 31.6 L, RDW Std Deviation 53.7 H, RDW Coeff of Jenaro 16.3 H, Plt Count 116 L, MPV 11.8, Immature Gran % (Auto) 0.300, Neut % (Auto) 54.7, Lymph % (Auto) 32.8, [place] % (Auto) 10.1 H, Eos % (Auto) 1.5, Baso % (Auto) 0.6, Absolute Neuts (auto) 3.6, Absolute Lymphs (auto) 2.14, Nucleated RBC % 0.3, D-Dimer Quant (PE/DVT) 3.18 H*, Sodium 136, Potassium 3.9, Chloride 96 L, Carbon Dioxide 22.7, Anion Gap 18 H, BUN 43 H, Creatinine 2.11 H, Estim Creat Clear Calc 26.65 L, Est GFR (MDRD) Non-Af 30 L, BUN/Creatinine Ratio 20.3 H, Glucose 101 H, Lactic Acid 3.0 H*, Calcium 9.1, Troponin T High Sens 87 H* D, NT pro BNP II 6299 H 05/19/25 01:37: Magnesium 2.7 H, Troponin T Hi Sens 2 Hr 82 H* 05/19/25 03:48: WBC 7.6, RBC 4.44 L, Hgb 12.8 L, Hct 39.1 L, MCV 88.1, MCH 28.8, MCHC 32.7, RDW Std Deviation 52.3 H, RDW Coeff of Jenaro 16.2 H, Plt Count 125 L, MPV 11.6, Immature Gran % (Auto) 0.300, Neut % (Auto) 63.3, Lymph % (Auto) 26.1, [place] % (Auto) 9.4, Eos % (Auto) 0.4, Baso % (Auto) 0.5, Absolute Neuts (auto) 4.8, Absolute Lymphs (auto) 1.97, Nucleated RBC % 0.3, Sodium 137, Potassium 3.9, Chloride 98, Carbon Dioxide 23.3, Anion Gap 16 H, BUN 42 H, Creatinine 2.00 H, Estim Creat Clear Calc 27.22 L, Est GFR (MDRD) Non-Af 32 L, BUN/Creatinine Ratio 21.0 H, Glucose 109 H, Lactic Acid 1.9, Calcium 8.9, Total Bilirubin 1.09, AST 48 H, ALT 56 H, Alkaline Phosphatase 151 H, Troponin T Hi Sens 4Hr 77 H*, Total Protein 6.4, Albumin 3.8, Globulin 2.6, Albumin/Globulin Ratio 1.4, TSH 3.390 ABG Data ABG results: ABG 05/18/25 23:51 Specimen Type ART Sample Site L Radial pH 7.50 H Bicarbonate Actual 24.2 Total CO2 25 Base Excess 1 O2 Saturation 84 L ABG pCO2 30.9 L ABG pO2 43 L Hal Test Positive O2 Delivery Device Room Air Vent Mode Not entered Radiography Diagnostic Testing: Radiology Impression Chest X-Ray 05/18/25 23:55 IMPRESSION: As above. Reading Location: [facility] Chest CTA 05/19/25 00:25 IMPRESSION: No evidence of pulmonary arterial thromboembolism. Progression of the right pleural effusion currently appears as moderate with underlying subsegmental compression atelectasis. Resolution of the left pleural effusion. Stable rest of the study findings. Reading Location[facility] Rhythm Strip Rhythm Strip: Sinus Rhythm Rate: 77 Ectopy: PVC(s) Physical Exam Narrative General: Alert, oriented, no apparent distress HEENT: Atraumatic, normocephalic Eyes: Anicteric, normal conjunctiva, extraocular movements grossly intact Neck: Supple Respiratory: No overt wheezes or rhonchi, slightly dull right lung base Cardiovascular: Regular rate GI: Soft, nontender, nondistended Extremities: Mild lower extremity edema Musculoskeletal: Moving all extremities Neuro: No overt focal neurological deficits Skin: No rashes appreciated Psych: Cooperative Assessment & Plan Assessment/Plan (1) Acute exacerbation of chronic heart failure: (2) Hypoxia: PLAN: Plan 85 y/o M with a history of heart failure with reduced ejection fraction, AV valve repair, CKD stage IIIb, GI, coronary artery disease with stenting, BPH, depression who presented to [facility] ED 05/18/2025 with increased shortness of breath worsening over the past 4 days as well as some weight gain despite doubling his Lasix for the past 3 days (currently taking 80 mg twice a day.) Additionally feels his abdomen is distended and notes nonproductive cough. He was recently admitted in March for heart failure exacerbation and discharged 04/08/2025 after being found to have an EF of 25% which was decreased from prior. Also had some gallbladder wall thickening and HIDA showed an EF of 10% but patient was not symptomatic so outpatient follow-up was advised. In the ED temp 97.7, heart rate 109, blood pressure 103/69, respiratory rate initially 30 and O2 sat dropped to 84% requiring 2 L of nasal cannula. He was found to have elevated troponins and elevated BNP as well as an MICHELLE. CTA obtained and noted a progression of a right pleural effusion appearing to be moderate with underlying atelectasis and resolution of left pleural effusion. Given patient's hypoxia and presenting complaints hospitalist contacted for admission for heart failure with reduced ejection fraction. # Hypoxia suspected to be secondary to acute exacerbation of chronic heart failure with reduced ejection fraction -Admit to telemetry -proBNP 6299 which is actually lower than recent values - CTA shows progression right pleural effusion appearing moderate with underlying subsegmental compression atelectasis and resolution of left pleural effusion -Continue IV lasix -Last echo March 2025 with EF of 25% which was decreased from prior - No repeat echo ordered given the proximity of previous echo -Daily weights, I's and O's - heart healthy diet #MICHELLE on CKDIIIb -Baseline creatinine appears to be about 1.5 - On presentation creatinine 2.11 - Possibly cardiorenal secondary to heart failure exacerbation - This a.m. creatinine improved slightly to 2 #Elevated troponin - Initial troponin 87 and subsequently downtrended to 82 and then 77 - Suspect that this is secondary to heart failure exacerbation and hypoxia - Patient being treated for heart failure and monitored on telemetry #Hx of CAD -w/ previous stenting and CABG -Continue home antiplatelet agents and beta-mohit as heart rate tolerates #Chronic BPH with obstruction -Continue home medications #Depression/anxiety -Continue home medications #DVT ppx: Heparin subcu Carolyn Crum MD
[2025-05-19] MEDS: Heparin Injection (Vial) 5,000 UNIT/ML VIAL 5000 UNIT SC ×2 (10:36→22:03)
--- NOTE | 2025-05-19 11:59 | CASEMGMT ---
SEBASTIAN JEFFREY Assessment Face to Face with patient for initial?transition planning/care coordination assessment. SEBASTIAN JEFFREY introduced self and role at [facility], pt voices understanding. Pt is A&Ox4 and is resting comfortably in bed and is calm. Pt's daughter (Vania) at the bedside. Care providers, pharmacy, and demographics verified. ? Admitting dx: Hypoxia, HF Exacerbation (Pt declines current Palliative Care needs) , Rt sided effusion LACE Strata: 3 PCP: Pedro Gonzalez Specialists: ARJUN Preferred Pharmacy: [facility] Insurance: [employer] Prescription Benefit: Yes LNOK: Tayler (W), Luis Miguel (Son), Mauro (Son), Vania (Daughter) Living Arrangements: Pt lives with his in a single story home with one step to enter. Pt reports that some of his children live close and are able to provide support when needed. ADLs/IADLs: Pt states that the pt is normally indep. 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 Pt is currently requiring additional oxygen and may qualify for home oxygen use. A verbal list of local in-network DME companies were provided to the pt at this time. Pt prefers [employer]. [employer]. [employer]. [employer]. Pt has a scale to weigh himself regarding his CHF. HHC/SNF: Report skilled HHC hx in 2001. Denies SNF hx. Pt is active with [facility] and wishes to continue their services Pt?s goal: Home Plan: Home with GEORGETTE through [facility], follow for new oxygen needs. See PT eval. At this time, the pt denies the need for further services such as skilled HHC, OP Tx, SNF, or Palliative Care. Pt states that he is comfortable and feels safe with the current support that he has. Pt's daughter agrees. Pt denies further questions or concerns at this time. Report given to [employer] CM. Denisse Siegel RN, CM
--- NOTE | 2025-05-19 21:47 | CPS ---
Patients brought in home BIPAP for HS use
[2025-05-20] VITALS (10 sets, daily range): BP systolic 96–106; BP diastolic 53–86; PULSE 54–92; RESP 16–22; TEMP 36.4–36.7; O2SAT 94–99; BMI 31.0
[2025-05-20] MEDS: Furosemide 500 MG in Empty Viaflex 50 mL 1 EACH CONT INF (04:47)
[2025-05-20 05:53] LABS: Hematocrit 36.7 % (40-54); Hemoglobin 11.8 g/dL (13.0-16.5); Mean Corp Hgb Conc 32.2 g/dL (32-36); Mean Corpuscular Volume 88.4 fL (80-94); Mean Platelet Vol. 11.5 fl (6.2-12.0); Platelet Count 114 K/mm3 (150-450); RBC Distribution Width CV 16.5 % (11.6-14.6); RBC Distribution Width SD 53.3 fl (35.1-43.9); Red Blood Count 4.15 M/mm3 (4.6-6.2); White Blood Count 6.2 K/mm3 (4.4-11.0)
[2025-05-20 06:11] LABS: Anion Gap 16 (5-15); BUN 38 mg/dL (4-19); BUN/Creat Ratio 23.0 RATIO (10-20); Calcium,Total 8.7 mg/dL (7.6-11.0); Carbon Dioxide 23.5 mmol/L (21.0-32.0); Chloride 101 mmol/L (98-108); Cholesterol 157 mg/dL (<=200); Estimated Creatinine Clearance 32.95 ml/min (50-250); Glucose 100 mg/dL (70-99); Low Density Lipoprotein Calc. 105 mg/dL; Potassium 3.1 mmol/L (3.3-5.1); Triglycerides 61 mg/dL; Very Low Density Lipoprotein 12 mg/dL (5-40); cholesterol:hdl ratio screen 3.93
[2025-05-20] MEDS: Heparin Injection (Vial) 5,000 UNIT/ML VIAL 5000 UNIT SC ×2 (09:37→21:47)
[2025-05-20] MEDS: Potassium Chloride 10mEq/100mL 10 MEQ/100 ML IV.SOLN. 100 MEQ IV BOLUS ×2 (10:27→11:41)
[2025-05-20] MEDS: Metoprolol(XL)Succ 25 MG Tablet 12.5 MG PO (13:31)
--- NOTE | 2025-05-20 14:19 | PN.HOSP_ITS ---
Reason for Visit Chief Complaint: Dyspnea, weight gain, orthopnea, cough. Subjective Subjective Feeling little bit better, breathing improving, strength somewhat improving but still feels somewhat generally unwell Objective Data Objective Data Vital Signs: Vital Signs Temp Pulse Resp BP Pulse Ox O2 Del Method O2 Flow Rate 97.8 F 88 18 104/77 98 Room Air 2 05/20/25 09:35 05/20/25 13:31 05/20/25 13:30 05/20/25 13:30 05/20/25 13:30 05/20/25 13:30 05/19/25 19:18 Oxygen Flow Rate (L/min) 2 Oxygen Delivery Method Room Air Weight: 84.6 kg Body Mass Index (BMI) 31.0 Intake & Output: Intake and Output for Last 24 Hours 05/18/25 05/19/25 05/20/25 23:59 23:59 23:59 Intake Total 534.68 / 534.68 130.32 / 130.32 Output Total 1150 / 1150 Balance -615.32 / -615.32 130.32 / 130.32 Lab / Micro Data 05/20/25 04:50 05/20/25 04:50 Labs: Laboratory Results - last 24 hr 05/20/25 04:50: WBC 6.2, RBC 4.15 L, Hgb 11.8 L, Hct 36.7 L, MCV 88.4, MCH 28.4, MCHC 32.2, RDW Std Deviation 53.3 H, RDW Coeff of Jenaro 16.5 H, Plt Count 114 L, MPV 11.5, Sodium 141, Potassium 3.1 L, Chloride 101, Carbon Dioxide 23.5, Anion Gap 16 H, BUN 38 H, Creatinine 1.64 H, Estim Creat Clear Calc 32.95 L, Est GFR (MDRD) Non-Af 41 L, BUN/Creatinine Ratio 23.0 H, Glucose 100 H, Calcium 8.7, Triglycerides 61, Cholesterol 157, LDL Cholesterol, Calc 105, VLDL Cholesterol 12, HDL Cholesterol 40, Cholesterol/HDL Ratio 3.93 Micro: Microbiology 05/19/25 08:40 Mucosa - Nasopharyngeal Respiratory Panel (PCR) - Final 05/19/25 08:25 Nasal Secretion SARS-CoV-2 Antigen (Rapid) - Final Rhythm Strip Rhythm Strip: Sinus Rhythm Rate: 77 Ectopy: PVC(s) Physical Exam Narrative General: Alert, oriented, no apparent distress HEENT: Atraumatic, normocephalic Eyes: Anicteric, normal conjunctiva, extraocular movements grossly intact Neck: Supple Respiratory: No overt wheezes or rhonchi, no increased work of breathing Cardiovascular: Regular rate GI: Soft, nontender, nondistended Extremities: No overt lower extremity swelling appreciated, lower extremities wrapped Musculoskeletal: Moving all extremities Neuro: No overt focal neurological deficits Skin: No rashes appreciated Psych: Cooperative Assessment & Plan Assessment/Plan (1) Acute exacerbation of chronic heart failure: (2) Hypoxia: PLAN: Plan 85 y/o M with a history of heart failure with reduced ejection fraction, AV valve repair, CKD stage IIIb, GI, coronary artery disease with stenting, BPH, depression who presented to [facility] ED 05/18/2025 with increased shortness of breath worsening over the past 4 days as well as some weight gain despite doubling his Lasix for the past 3 days (currently taking 80 mg twice a day.) Additionally feels his abdomen is distended and notes nonproductive cough. He was recently admitted in March for heart failure exacerbation and discharged 04/08/2025 after being found to have an EF of 25% which was decreased from prior. Also had some gallbladder wall thickening and HIDA showed an EF of 10% but patient was not symptomatic so outpatient follow-up was advised. In the ED temp 97.7, heart rate 109, blood pressure 103/69, respiratory rate initially 30 and O2 sat dropped to 84% requiring 2 L of nasal cannula. He was found to have elevated troponins and elevated BNP as well as an MICHELLE. CTA obtained and noted a progression of a right pleural effusion appearing to be moderate with underlying atelectasis and resolution of left pleural effusion. Given patient's hypoxia and presenting complaints hospitalist contacted for admission for heart failure with reduced ejection fraction. # Hypoxia suspected to be secondary to acute exacerbation of chronic heart failure with reduced ejection fraction -Admit to telemetry -proBNP 6299 which is actually lower than recent values - CTA shows progression right pleural effusion appearing moderate with underlying subsegmental compression atelectasis and resolution of left pleural effusion -Continue IV lasix -Last echo March 2025 with EF of 25% which was decreased from prior - No repeat echo ordered given the proximity of previous echo -Daily weights, I's and O's - heart healthy diet -05/20: In the ED patient's weight was listed as 88.3, this a.m. was 84.6, patient does seem to be diuresing fairly well and has had improvement in kidney function, will switch patient from IV drip to IV twice daily, suspect home in 1 to 2 days if patient continues to improve #MICHELLE on CKDIIIb -Baseline creatinine appears to be about 1.5 - On presentation creatinine 2.11 - Possibly cardiorenal secondary to heart failure exacerbation - This a.m. creatinine improved slightly to 2 -05/20: Kidney function has significantly improved with diuresis, creatinine 1.64 which is much closer to baseline #Hypokalemia -05/20: Potassium of 3.1, -Replace -Repeat in the AM #Elevated troponin - Initial troponin 87 and subsequently downtrended to 82 and then 77 - Suspect that this is secondary to heart failure exacerbation and hypoxia - Patient being treated for heart failure and monitored on telemetry -05/20: No chest pain, patient does have frequent ectopy on telemetry and it appears he did on previous admission as well, continue beta-mohit Chronic medical problems and/or problems not being actively addressed during today's encounter: #Hx of CAD -w/ previous stenting and CABG -Continue home antiplatelet agents and beta-mohit as heart rate tolerates #Chronic BPH with obstruction -Continue home medications #Depression/anxiety -Continue home medications #DVT ppx: Heparin subcu Carolyn Crum MD Charges/Coding Visit Charges Inpatient E&M: 37197 Subs Hosp L2
[2025-05-21 03:00] VITALS: PULSE 69
[2025-05-21 04:05] VITALS: BP 93/68; PULSE 72; RESP 18; TEMP 36.6; O2SAT 98
[2025-05-21 04:11] VITALS: BMI 31.2
[2025-05-21 05:52] LABS: Hematocrit 38.3 % (40-54); Hemoglobin 12.1 g/dL (13.0-16.5); Mean Corp Hgb Conc 31.6 g/dL (32-36); Mean Corpuscular Volume 89.3 fL (80-94); Mean Platelet Vol. 11.8 fl (6.2-12.0); Platelet Count 121 K/mm3 (150-450); RBC Distribution Width CV 16.6 % (11.6-14.6); RBC Distribution Width SD 54.3 fl (35.1-43.9); Red Blood Count 4.29 M/mm3 (4.6-6.2); White Blood Count 7.4 K/mm3 (4.4-11.0)
[2025-05-21 06:25] LABS: Anion Gap 14 (5-15); BUN 35 mg/dL (4-19); BUN/Creat Ratio 22.8 RATIO (10-20); Calcium,Total 8.9 mg/dL (7.6-11.0); Carbon Dioxide 26.3 mmol/L (21.0-32.0); Chloride 100 mmol/L (98-108); Estimated Creatinine Clearance 35.63 ml/min (50-250); Glucose 100 mg/dL (70-99); Potassium 3.6 mmol/L (3.3-5.1)
[2025-05-21 08:51] VITALS: BP 120/84; PULSE 95; RESP 22; TEMP 36.3; O2SAT 100
[2025-05-21 08:59] VITALS: O2SAT 100; O2SAT 94
[2025-05-21 09:00] VITALS: PULSE 95
[2025-05-21] MEDS: Metoprolol(XL)Succ 25 MG Tablet PO (09:00)
[2025-05-21] MEDS: Heparin Injection (Vial) 5,000 UNIT/ML VIAL 5000 UNIT SC (09:01)
--- NOTE | 2025-05-21 13:50 | DS.PCM_ITS ---
Providers Date of Admission: 05/19/25 Date of Discharge: 05/21/25 Primary Care Physician: Dr. Pedro Gonzalez MD Reason For Visit: HYPOXIA HF EXAC R SIDED EFFUSION Diagnosis Discharge Diagnosis (1) Acute exacerbation of chronic heart failure: Status: Acute Code(s): I50.9 - Heart failure, unspecified (2) Hypoxia: Status: Acute Code(s): R09.02 - Hypoxemia Plan # Hypoxia suspected to be secondary to acute exacerbation of chronic heart failure with reduced ejection fraction #MICHELLE on CKDIIIb -#Hypokalemia resolved #Elevated troponin- demand 2/2 HF exacerbation #Hx of CAD #Chronic BPH with obstruction #Depression/anxiety Medications at Discharge Home Medications vitamin E 200 unit capsule 200 unit PO DAILY 09/14/20 aspirin 81 mg chewable tablet 81 mg PO Q OTHER DAY 09/10/21 tamsulosin 0.4 mg capsule (Flomax) 0.4 mg PO QHS #30 caps 01/27/22 clopidogrel 75 mg tablet 75 mg PO Q OTHER DAY #45 tabs 11/12/24 dapagliflozin propanediol 10 mg tablet 10 mg PO QDAY heart #90 tabs 02/26/25 metoprolol succinate 25 mg tablet,extended release 24 hr 12.5 mg (1/2 x 25 mg) PO DAILY #45 tabs 04/07/25 escitalopram oxalate 10 mg tablet 10 mg PO DAILY depression 05/18/25 oxycodone 5 mg tablet 5 mg PO QHS 05/18/25 furosemide 40 mg tablet 40 mg PO BID 30 days #60 tabs 05/21/25 potassium chloride 10 mEq capsule,extended release 10 meq PO DAILY #30 caps 05/21/25 Hospital Course Summary of Care Provided Minutes Spent on Discharge: 35 Hospital Course: 85 y/o M with a history of heart failure with reduced ejection fraction, AV valve repair, CKD stage IIIb, GI, coronary artery disease with stenting, BPH, depression who presented to [facility] ED 05/18/2025 with increased shortness of breath worsening over the past 4 days as well as some weight gain despite doubling his Lasix for the past 3 days (currently taking 80 mg twice a day.) Additionally feels his abdomen is distended and notes nonproductive cough. He was recently admitted in March for heart failure exacerbation and discharged 04/08/2025 after being found to have an EF of 25% which was decreased from prior. Also had some gallbladder wall thickening and HIDA showed an EF of 10% but patient was not symptomatic so outpatient follow-up was advised. In the ED temp 97.7, heart rate 109, blood pressure 103/69, respiratory rate initially 30 and O2 sat dropped to 84% requiring 2 L of nasal cannula. He was found to have elevated troponins and elevated BNP as well as an MICHELLE. CTA obtained and noted a progression of a right pleural effusion appearing to be moderate with underlying atelectasis and resolution of left pleural effusion. Given patient's hypoxia and presenting complaints hospitalist contacted for admission for heart failure with reduced ejection fraction. Patient admitted and started on Lasix drip, patient did have decrease in weight and good output with improvement in his kidney function. He was switched over to IV twice daily LX and did well on that, on day of discharge patient able to get up and ambulate without any significant shortness of breath and was feeling much better, no swelling in lower extremities. Explained to patient and family multiple times regarding all of his medications and instructions and reasons for medications or to stop medications and they verbalized understanding but then would again express concerns over the same questions which we would then go over again. Patient's RN also reiterated education. Patient overall did feel much better and was agreeable to discharge. No new or acute complaints on day of discharge. Discharged home in stable condition with the following discharge instructions: - Recommend you take 40 mg of Lasix, once in the morning and again at lunchtime (6-8 hours apart) -You will be started on 10 mg of potassium daily due to your Lasix -Would recommend lab work (BMP) to check your potassium and kidney function in 2 to 3 days through your primary care physician's office. Please call their office upon discharge to obtain order for lab work. - Would recommend holding your hydrochlorothiazide and continuing your other home medications -Weigh yourself every day. A sudden weight gain can mean you are retaining fluid. Weigh yourself at the same time of day and in the same kind of clothes. Ideally, weigh yourself first thing in the morning after you empty your bladder, but before you eat breakfast. -Please call your physician if your weight goes up by more than 2 pounds in 1 day or 5 pounds in 1 week. This can be a sign that you are retaining more fluid than you should be. Clues to weight gain include checking your ankles for swelling, or noticing you are short of breath when you lie down -Please limit your sodium intake to less than 3 g/day. Here are tips: Limit canned, dried, packaged, and fast foods. Don't add salt to your food at the table. Season foods with herbs instead of salt when you cook. When you eat out, ask that the corporate services manager not add any salt to your dish. Don't eat fried or greasy foods. Be careful of bottled beverages. They can contain a lot of salt -Call 911 right away if you have: -Severe shortness of breath, such that you can't catch your breath even while resting -Severe chest pain -[place], foamy mucus with cough and shortness of breath -An ongoing rapid or irregular heartbeat -Passing out or fainting -Stroke symptoms such as sudden numbness or weakness on one side of your face, arm, or leg or sudden confusion, trouble speaking or vision changes -Please call your primary care provider's office upon discharge to schedule a hospital follow up within 1 week. -For any concerning signs or symptoms please call 911 or proceed to the nearest emergency department Physical Exam Narrative General: Alert, oriented, no apparent distress HEENT: Atraumatic, normocephalic Eyes: Anicteric, normal conjunctiva, extraocular movements grossly intact Neck: Supple Respiratory: No wheezes, rhonchi, crackles, no increased work of breathing Cardiovascular: Regular rate GI: Soft, nontender, nondistended Extremities: No overt lower extremity swelling appreciated, lower extremities wrapped Musculoskeletal: Moving all extremities Neuro: No overt focal neurological deficits Skin: No rashes appreciated Psych: Cooperative Weight / BMI Weight Weight: 85 kg Body Mass Index (BMI) 31.2 ABG / Lab / Microbiology Data 05/21/25 04:53 05/21/25 04:53 Laboratory: Laboratory Results - last 24 hr 05/21/25 04:53: WBC 7.4, RBC 4.29 L, Hgb 12.1 L, Hct 38.3 L, MCV 89.3, MCH 28.2, MCHC 31.6 L, RDW Std Deviation 54.3 H, RDW Coeff of Jenaro 16.6 H, Plt Count 121 L, MPV 11.8, Sodium 141, Potassium 3.6, Chloride 100, Carbon Dioxide 26.3, Anion Gap 14, BUN 35 H, Creatinine 1.52 H, Estim Creat Clear Calc 35.63 L, Est GFR (MDRD) Non-Af 45 L, BUN/Creatinine Ratio 22.8 H, Glucose 100 H, Calcium 8.9 Microbiology: Microbiology 05/19/25 08:40 Mucosa - Nasopharyngeal Respiratory Panel (PCR) - Final 05/19/25 08:25 Nasal Secretion SARS-CoV-2 Antigen (Rapid) - Final D/C Instructions DC O2, CPAP, BIPAP Needs Home O2 Discharge instructions: No Meaningful Use Info Meaningful Use Meaningful Use Diagnoses (Choose all that apply): CHF CHF SONIA/ARB ordered at discharge?: No Reason SONIA/ARB not ordered?: Worsening renal disease Documented LVEF (%): 25 Discharge Plan Admission Admit Date/Time: 05/19/25 01:39 Primary Reason for Your Visit: Heart failure exacerbation Attending Provider: Carolyn Crum Primary Care Provider: Pedro Gonzalez Consulting Providers: Rea Cancino Instructions Patient Instructions: Tips for Using Less Salt, Limiting Fluids Dc Additional Instructions / Restrictions: DISCHARGE INSTRUCTIONS PLEASE READ *Please take this with you to your next doctors appointment* - Recommend you take 40 mg of Lasix, once in the morning and again at lunchtime (6-8 hours apart) -You will be started on 10 mg of potassium daily due to your Lasix -Would recommend lab work (BMP) to check your potassium and kidney function in 2 to 3 days through your primary care physician's office. Please call their office upon discharge to obtain order for lab work. - Would recommend holding your hydrochlorothiazide and continuing your other home medications -Weigh yourself every day. A sudden weight gain can mean you are retaining fluid. Weigh yourself at the same time of day and in the same kind of clothes. Ideally, weigh yourself first thing in the morning after you empty your bladder, but before you eat breakfast. -Please call your physician if your weight goes up by more than 2 pounds in 1 day or 5 pounds in 1 week. This can be a sign that you are retaining more fluid than you should be. Clues to weight gain include checking your ankles for swelling, or noticing you are short of breath when you lie down -Please limit your sodium intake to less than 3 g/day. Here are tips: Limit canned, dried, packaged, and fast foods. Don't add salt to your food at the table. Season foods with herbs instead of salt when you cook. When you eat out, ask that the corporate services manager not add any salt to your dish. Don't eat fried or greasy foods. Be careful of bottled beverages. They can contain a lot of salt -Call 911 right away if you have: -Severe shortness of breath, such that you can't catch your breath even while resting -Severe chest pain -[place], foamy mucus with cough and shortness of breath -An ongoing rapid or irregular heartbeat -Passing out or fainting -Stroke symptoms such as sudden numbness or weakness on one side of your face, arm, or leg or sudden confusion, trouble speaking or vision changes -Please call your primary care provider's office upon discharge to schedule a hospital follow up within 1 week. -For any concerning signs or symptoms please call 911 or proceed to the nearest emergency department Discharge Orders/Prescriptions Prescriptions: New potassium chloride 10 mEq capsule, extended release 10 meq PO DAILY Qty: 30 0RF Continued vitamin E 200 unit capsule 200 unit PO DAILY dapagliflozin propanediol 10 mg tablet 10 mg PO QDAY Qty: 90 3RF metoprolol succinate 25 mg tablet extended release 24 hr 12.5 mg PO DAILY Qty: 45 0RF aspirin 81 mg tablet,chewable 81 mg PO Q OTHER DAY tamsulosin [Flomax] 0.4 mg capsule 0.4 mg PO QHS Qty: 30 0RF oxycodone 5 mg tablet 5 mg PO QHS escitalopram oxalate 10 mg tablet 10 mg PO DAILY clopidogrel 75 mg tablet 75 mg PO Q OTHER DAY Qty: 45 3RF Changed furosemide 40 mg tablet 40 mg PO BID 30 Days Qty: 60 1RF Discontinued hydrochlorothiazide 25 mg tablet 25 mg PO DAILY Referrals / Follow Up: Pedro Gonzalez MD [Primary Care Provider, Family Practice] - Within 1 Week Disposition Disposition (needs filled in before D/C Order can be placed): Home, Self Care Charges/Coding Visit Charges Inpatient E&M: 84934 Disch Hosp >30min
--- NOTE | 2025-05-21 14:16 | PHA.DC_ITS ---
Pharmacy [facility] Counseling Pharmacy Service has performed discharge medication reconciliation and counseling for this patient. Patient requested medications to be transferred from the [facility] to [facility]. This [facility] called [facility], spoke to Spring, and requested transfer. Spring said she would call [facility] [place] for the transfer. This [facility] also told Spring patient said he does want Lasix transferred but he does not need it filled at this time as he still has a lot of 40mg tablets at home, will get the new Lasix RX filled when he is out of current bottle. He would like the potassium to be delivery to his home at this time. 1. POTASSIUM CHLORIDE 10MEQ PO DAILY 2. LASIX CHANGED TO 40MG BID The patient's discharge medication list was reviewed for discrepancies and discrepancies were resolved. The patient was counseled on the following discharge medications and changes in medications for homegoing were reviewed. The Reason for Use, instructions for use, and potential side effects were reviewed for all new medications. The patient's questions regarding all of their medications were answered. The patient was able to verbally demonstrate an understanding of their discharge medications. Medications at Discharge Home Medications vitamin E 200 unit capsule 200 unit PO DAILY 09/14/20 aspirin 81 mg chewable tablet 81 mg PO Q OTHER DAY 09/10/21 tamsulosin 0.4 mg capsule (Flomax) 0.4 mg PO QHS #30 caps 01/27/22 clopidogrel 75 mg tablet 75 mg PO Q OTHER DAY #45 tabs 11/12/24 dapagliflozin propanediol 10 mg tablet 10 mg PO QDAY heart #90 tabs 02/26/25 metoprolol succinate 25 mg tablet,extended release 24 hr 12.5 mg (1/2 x 25 mg) PO DAILY #45 tabs 04/07/25 escitalopram oxalate 10 mg tablet 10 mg PO DAILY depression 05/18/25 oxycodone 5 mg tablet 5 mg PO QHS 05/18/25 furosemide 40 mg tablet 40 mg PO BID 30 days #60 tabs 05/21/25 potassium chloride 10 mEq capsule,extended release 10 meq PO DAILY #30 caps 05/21/25
--- NOTE | 2025-05-21 14:38 | CASEMGMT ---
Addendum entered by Yoli Ceja 05/21/25 14:53: Family stated they had originally asked the pharmacist, Ruchi, to have meds transferred to [facility] pharmacy. They informed this RN CM, though, they would not be able to get the medications from [facility] until Fri, which would result in pt missing a dose of K+ tomorrow. Upon further discussion w/this RN CM they wanted to get the K+ from [facility] retail pharmacy today so pt would not miss any doses. They are aware Rx for Lasix will be @ [facility], so when they are getting low on tabs, they can fiber picker Rx from there. Original Note: RN RACHELE NOTE: Home O2 amb testing has been completed. Pt does not qualify for home O2. Discharge order is in. RN CM to room. Pt sitting up in chair, family @ bedside. They are aware Rx's for K+ & Lasix have been e-scribed to [facility]. They would like the K+ to be transferred to [facility] retail pharmacy. Call placed to the pharmacy and notified of same. They do not want to fiber picker the Lasix today, stating they have a lot of Lasix tabs @ home & do not need it at this time. They are aware Lasix has been increased to BID. Pt & family aware they are to call PCP's office to get order to have labs drawn w/in 2-3 days to recheck K+ & kidney function. They deny having any further discharge needs or concerns. Jefry REYEZ RN CM
[2025-05-21 14:50] VITALS: BP 102/65; PULSE 88; RESP 20; TEMP 36.4; O2SAT 100
== END 2025-05-21 15:24 | disposition home or self-care (01) | DRG 291 ==
LOC: ED 05-19 00:07 → PCU 05-19 02:43
PROVIDERS: Admitting Provider Family Medicine; Emergency Provider Emergency Medicine; PCP Family Medicine; Visit Provider Internal Medicine
DX: I13.0 Hypertensive heart and chronic kidney disease with heart failure and stage 1 through stage 4 chronic kidney disease, or unspecified chronic kidney disease (principal); I50.23 Acute on chronic systolic (congestive) heart failure; E87.20 Acidosis, unspecified; I24.89 Other forms of acute ischemic heart disease; N13.8 Other obstructive and reflux uropathy; J98.11 Atelectasis; N17.9 Acute kidney failure, unspecified; D69.6 Thrombocytopenia, unspecified; Z66 Do not resuscitate; N18.32 Chronic kidney disease, stage 3b; I71.43 Infrarenal abdominal aortic aneurysm, without rupture; F32.A Depression, unspecified; D64.9 Anemia, unspecified; Z95.2 Presence of prosthetic heart valve; G47.33 Obstructive sleep apnea (adult) (pediatric); I25.10 Atherosclerotic heart disease of native coronary artery without angina pectoris; I35.0 Nonrheumatic aortic (valve) stenosis; I44.0 Atrioventricular block, first degree; E78.5 Hyperlipidemia, unspecified; F41.9 Anxiety disorder, unspecified; E87.6 Hypokalemia; Z95.1 Presence of aortocoronary bypass graft; I49.3 Ventricular premature depolarization; N40.1 Benign prostatic hyperplasia with lower urinary tract symptoms; R09.02 Hypoxemia; Z79.82 Long term (current) use of aspirin; Z79.899 Other long term (current) drug therapy; Z79.02 Long term (current) use of antithrombotics/antiplatelets
CPT/HCPCS: 36415; 36600; 71045; 71275; 80048; 80053; 80061; 82803; 83605; 83735; 83880; 84443; 84484; 85025; 85027; 85379; 87426; 87633; 93005; 94668; 97162; 97530; 97802; 99285; Q9967; A4216; J1938

== ENCOUNTER → 2025-05-23 | Outpatient (CLI) | payer OTHER, SELFPAY ==
[2025-05-23 09:29] LABS: Anion Gap 15 (5-15); BUN 37 mg/dL (4-19); BUN/Creat Ratio 20.1 RATIO (10-20); Calcium,Total 9.6 mg/dL (7.6-11.0); Carbon Dioxide 26.3 mmol/L (21.0-32.0); Chloride 99 mmol/L (98-108); Glucose 102 mg/dL (70-99); Potassium 4.1 mmol/L (3.3-5.1)
== END | disposition home or self-care (01) ==
LOC: LAB 08:36
PROVIDERS: PCP Family Medicine; Referring Provider Physician Assistant Medical; Visit Provider Physician Assistant Medical
DX: I50.20 Unspecified systolic (congestive) heart failure (principal); N17.9 Acute kidney failure, unspecified; N18.9 Chronic kidney disease, unspecified; E87.1 Hypo-osmolality and hyponatremia; R06.09 Other forms of dyspnea
CPT/HCPCS: 36415; 80048